=== PATIENT | female | born 1940 | race African-American/Black ===

== ENCOUNTER 2022-03-08 08:33 | Outpatient (CLI) | payer MEDICARE, SELFPAY ==
--- OUTSIDE RECORDS SUMMARY | 2022-03-08 08:39 | XMS_ITS | Encounter Summary ---
:1940 Author Organization [facility] Address [address] [place] [address] Phone Care Team Providers Name Role Phone Unavailable Primary Care Provider Unavailable Encounter Details Date Type Department Care Team Description 05/31/2021 Documentation Only Acute Dialysis Barby Cox [address] [place], [place] [address] [id number] Social History Tobacco Use Types Packs/Day Years Used Date Smoking Tobacco: Never Assessed Sex Assigned at Date Recorded Not on file COVID-19 Exposure Response Date Recorded In the last month, have you been in contact with No / Unsure 05/29/2021 6:33 AM AIR INTELLIGENCE SPECIALIST someone who was confirmed or suspected to have Coronavirus / COVID-19? documented as of this encounter Progress Notes Barby Cox - 05/31/2021 6:42 AM CST Discharge paperwork faxed to chronic dialysis. Adán Cox INTELLIGENCE SPECIALIST documented in this encounter Plan of Treatment Not on filedocumented as of this encounter Visit Diagnoses Not on filedocumented in this encounter
--- OUTSIDE RECORDS SUMMARY | 2022-03-08 08:39 | XMS_ITS | Encounter Summary ---
:1940 Author Organization [facility] Address [address] [place] [address] Care Team Providers Name Role Phone Louis Reyes MD Primary Care Provider Clinic, Not Listed Unavailable Unavailable Reason for Visit Inpatient Admission Specialty Diagnoses / Procedures Referred By Contact Refer red To Contact Diagnoses dx. endstage renal disease Procedures ANASTOMOSIS,AV,ANY SITE ANASTOMOSIS,AV,ANY SITE RIGHT UPPER GRAFT VERSUS SECOND STAGE Referral ID Status Reason Start Date Expiration Date Visits Requ ested Visits Authorized [id number] 1 1 Encounter Details Date Type Department Care Team Description 02/02/2022 Hospital Encounter A7 Sonya Cardenas, ESRD (end stage [address] [facility] renal disease) ([facility]) [address] [facility] [address] [address] [place], [place] [phone] [id number] Social History Tobacco Use Types Packs/Day Years Used Date Smoking Tobacco: Every Day Smokeless Tobacco: Never Alcohol Use Standard Drinks/Week Comments Never 0 (1 standard drink = 0.6 oz pure alcoho l) Sex Assigned at Date Recorded Not on file COVID-19 Exposure Response Date Recorded In the last 10 days, have you been in contact with No / Unsu re 02/02/2022 5:43 AM CDT someone who was confirmed or suspected to have Coronavirus/COVID-19? documented as of this encounter Last Filed Vital Signs Vital Sign Reading Time Taken Comments Blood Pressure 110/75 02/02/2022 7:10 PM CDT Pulse 94 02/02/2022 7:10 PM CDT Temperature 36.8 ??C (98.2 ??F) 02/02/2022 7:10 PM CDT Respiratory Rate 18 02/02/2022 7:10 PM CDT Oxygen Saturation 98% 02/02/2022 7:10 PM CDT Inhaled Oxygen Concentration - - Weight 53.5 kg (118 lb) 02/02/2022 3:38 PM CDT Height 160 cm (5' 3) 02/02/2022 11:10 AM CDT Body Mass Index 20.9 02/02/2022 11:10 AM CDT documented in this encounter Medications at Time of Discharge Medication Sig Dispensed Refills Start Date End Date calcitriol (ROCALTROL) Take 0.25 mcg by 0 0.25 mcg oral capsule mouth Daily. calcium acetate, phosphate TAKE 2 CAPSULES BY 0 0 11/17/2021 binders, (PHOSLO) 667 mg MOUTH THREE TIMES oral capsule DAILY WITH MEALS AND 1 CAPSULE TWO TIMES DAILY WITH SNACKS Cholecalciferol, Vitamin Take 1 tablet by 0 D3, 50 mcg (2,000 unit) mouth. oral capsule epoetin beta, methoxy peg 50 mcg. 0 (MIRCERA) 50 mcg/0.3 mL Injection Syringe furosemide (LASIX) 80 mg Take 80 mg by mouth 0 oral tablet twice a day. lisinopriL (PRINIVIL) 2.5 Take 2.5 mg by mouth 0 12/16/2021 mg oral tablet once daily. metoprolol succinate, XL, 0 12/19/2021 (TOPROL XL) 25 mg oral extended release tablet 24 HR pantoprazole (PROTONIX) 40 TAKE 1 TABLET BY 0 03/2022 mg oral delayed release MOUTH TWICE DAILY FOR tablet 3 TO 4 WEEKS THEN DECREASE TO DAILY IN MORNING. TAKE 30 MINUTES BEFORE FIRST MEAL OF DAY documented as of this encounter Progress Notes Sandra Holguin RN - 02/02/2022 7:45 PM CDT Cindi Garibay 1940 [id number] P: Discharge A: Discharged ambulatory to home at 1944 escorted by nurse I: Discharge information and arrangements included: review of written discharge instructions R:Patient expressed understanding of information.. Kavya David RN - 02/02/2022 6:20 PM CDT Hemodialysis Treatment Note: Patient dialyzed for 3 hours on a Revaclear dialyzer. Ran on a K 2 bath for serum K of 5.9 mEq/L. BFR 350 ml/min via R PCAD. Total net fluid removed: 2.5 L. Total blood volume processed: 53 Liters. Total heparin given:2000 units Heparin instilled in both ports post-run, caps placed, secured, and labeled. Patient had no complications. Dialysis meds given: none. Consent on file. See dialysis flow sheet in [facility] for further details. Patient teaching and the opportunity for questions given. Water detection alarm in use during treatment. Patient dialysis days MWF at [facility]. Kavya Buchanan RN [facility] Lashon Horton RN - 02/02/2022 2:36 PM CDT Patient here for fistulagram today as outpatient, K 5.9 and needing dialysis prior to procedure. Admitted to A7, ate lunch, will go to W5 for dialysis and DC home. Then she will reschedule fistulagram as an outpatient. Lives at home with luz Eller who will come picker tender when done. Tele monitor on, no calls. Lashon Horton RN - 02/02/2022 11:47 AM CDT P. Admission A. Condition on Admit: alert. Patient/Family Concerns: Patient expressed concern about ordering lunch. I. Initial Interventions included: notified MD of patient arrival. Orientation to Unit: Patient oriented to how to call for help, Patient Information booklet, belongings checklist, unit and plan of care. R. Patient expressed understanding of information.. Danish Boland RN - 02/02/2022 9:42 AM CDT Called admitting, pt to go to A7. Called A7, no beds available RN will talk with admitting. Will call back about room/floor. Sonya Cardenas MD - 02/02/2022 9:21 AM CDT Vascular Surgery Note: 81 year old female who was scheduled for right arm fistula vs graft surgery today. Case initially delayed due to registration error, her name had various spellings on different documentation that she provided and this was only noticed today. After that was sorted out, unfortunately her potassium was elevated. She did not dialyze yesterday as her creative arts music therapist recommended. We planned to dialyze her today, however inpatient dialysis does not have availability until 1:30pm, with plan to run for 3-4 hours. I called her dialysis center and they do not have chair availability for her since she normally dialyzes in the morning, so she cannot go there today for HD. Will plan to admit medicine today for dialysis due to hyperkalemia. She will receive dialysis today.If no issues after dialysis then she will be OK to discharge home after dialysis. Will plan to reschedule surgery for another date. Sonya Cardenas MD [facility] documented in this encounter Consult Notes Avril Gomes APRN, JANA - 02/02/2022 3:29 PM CDT Images from the original note were not included. 02/02/2022 February 02, 2022 3:30 PM Impression and Plan: 1) ESRD: Usually dialyze on Saturday via CVC at [facility] ([phone]). Herprimary creative arts music therapist is Dr Landon Calvert MD. No recent dialysis access issue. Came in for a AVF placement which wouldn't be done today as her potassium was elevated at 5.9. Seen today getting ready for dialysis, tells me she is discharging after dialysis with plan to continue dialysis MWF per her normal schedule via her CVC, will make another plan for access placement. -Continue dialysis MWF. Next dialysis is today - Avoid nephrotoxins and renally dose all medications. - Follow weights and I&Os HD Site: [facility] Dialysis Prescription: Dry weight: 49.5 kg Avril Gomes APRN, METALWORKER 3) Blood Pressure/Volume: long standing history of hypertension. Blood pressure hypertensive, will UF with dialysis today. No med changes today, continue to challenge her dry weight with ongoing monitoring. CC: ESRD, here for access placement. HPI: I was asked to consult on this pleasant 81 y.o. female. Ms. Garibay past medical history is significant for ESRD on dialysis MWF. She presented today for AVF placement, unfortunately didn't dialyzeyesterday as recommended by Dr. Calvert, therefore her K was noted to be at 5.9 this morning. Accessplacement not completed, will dialyze inpatient today. Tells me she is discharging after dialysis and will make a new plan for access placement. Upon evaluation today, the patient was in bed resting. Denies chest pain, SOB, cough, edema, abdominal pain, N/V, rashes, change of taste, and increase insomnia. Medical History: Past Medical History: Diagnosis Date ??? CHF (congestive heart failure) (HCC) ??? HTN (hypertension) ??? Iron deficiency anemia ??? Renal disease Surgical History: Past Surgical History: Procedure Laterality Date ??? HX HYSTERECTOMY ??? IR PCAD PLACEMENT Right Medications: Prior to admission: Medications Prior to Admission Medication Sig Dispense Refill Last Dose ??? calcitriol (ROCALTROL) 0.25 mcg oral capsule Take 0.25 mcg by mouth Daily. 02/01/2022 ??? calcium acetate, phosphate binders, (PHOSLO) 667 mg oral capsule TAKE 2 CAPSULES BY MOUTH THREE TIMES DAILY WITH MEALS AND 1 CAPSULE TWO TIMES DAILY WITH SNACKS 02/01/2022 ??? Cholecalciferol, Vitamin D3, 50 mcg (2,000 unit) oral capsule Take 1 tablet by mouth. 02/01/2022 ??? epoetin beta, methoxy peg (MIRCERA) 50 mcg/0.3 mL Injection Syringe 50 mcg. unsure ??? furosemide (LASIX) 80 mg oral tablet Take 80 mg by mouth twice a day. Past Week ??? lisinopriL (PRINIVIL) 2.5 mg oral tablet Take 2.5 mg by mouth once daily. 02/02/2022 ??? metoprolol succinate, XL, (TOPROL XL) 25 mg oral extended release tablet 24 HR 02/02/2022 ??? pantoprazole (PROTONIX) 40 mg oral delayed release tablet TAKE 1 TABLET BY MOUTH TWICE DAILY FOR3 TO 4 WEEKS THEN DECREASE TO DAILY IN MORNING. TAKE 30 MINUTES BEFORE FIRST MEAL OF DAY 02/01/2022 Current: Current Facility-Administered Medications: ??? saline FLUSH syringe 10 mL, 10 mL, Intravenous, Q8H, Sonya Cardenas MD ??? saline FLUSH syringe 10 mL, 10 mL, Intravenous, PRN, Sonya Cardenas MD ??? heparin 1,000 units/mL injection 1,000-3,500 Units, 1-3.5 mL, Intravenous, PRN, Chadwick Lai MD ??? saline with benzyl alcohol injection 0.1-0.3 mL, 0.1-0.3 mL, Intradermal, PRN, Sonya Cardenas MD Allergies: Iron, Carvedilol, and Iron sucrose Social History: Social History Socioeconomic History ??? Marital status: Tobacco Use ??? Smoking status: Current Every Day Smoker ??? Smokeless tobacco: Never Used Vaping Use ??? Vaping Use: Never used Substance and Sexual Activity ??? Alcohol use: Never ??? Drug use: Never Family History: No family history on file. Review of Systems: : ROS: Comprehensive ROS was negative other than as noted in the HPI. Family history reviewed and non-contributory. Physical Exam: BP (!) 177/68 Pulse 66 Temp 97.9 ??F (36.6 ??C) Resp 18 Ht 5' 3 (1.6 m) Wt 53.5 kg (118 lb) SpO2 98% BMI 20.90 kg/m?? In general this is a 81 y.o. female in no acute distress. General: Calm & comfortable Eyes: Pupils equal, sclerae not icteric ENT: Mucus membranes moist, no lesions noted Resp: CTA bilaterally, no distress, normal effort CV: RRR without murmur, no hip/leg edema GI: Soft NT NG Psych: A&Ox3, not depressed Neuro: Moves all extremities. Skin: No rash noted CVC dressing c/d/i Labs and XRays: Reviewed Recent Labs 02/02/22 0710 02/02/22 0818 POTASSIUM 5.9* 5.9* No Lab Results Found (last 72 hours) Recent Labs 02/02/22 0818 INR 1.0 Thank you for allowing me to participate in Ms. Garibay???s care. Avril Goems, PEACE, METALWORKER, RYAN [facility] Office # [phone] documented in this encounter Nursing Notes Danish Boland RN - 02/02/2022 10:58 AM CDT Cindi Garibay 1940 [id number] P. Transfer A. Transferred at 1045 to A7 unit. Transported via wheelchair with chart escorted by assistant activities director. I. Notified son of transfer. Patient information and safety items addressed included how to call forhelp. R. Patient expressed understanding of information. Pt was scheduled for a procedure this morning for graft/fistula-right. K came back at 5.9, dialysis was needed before procedure. Dialysis full until 1300- 1330, pt being admitted to receive dialysis. Procedure cancelled d/t late dialysis run. Will need to reschedule. Report given to RN for 787. Son was updated about dialysis and cancelled procedure. Will pick pt up whenever she is discharged. Danish Boland RN - 02/02/2022 8:13 AM CDT Pt's nameband and medical chart had name spelled wrong. service desk associate working on correcting. Different drivers ID and medicare. Name corrected now. Labs re-drawn. Rafita (son) updated. Pt may have to be in observation unit for dialysis before leaving hospital. documented in this encounter Plan of Treatment Upcoming Encounters Date Type Specialty Care Team Description 03/30/2022 Hospital Encounter Sonya Cardenas MD [address] [place], [place] [address] (Wo rk) 03/30/2022 Surgery Surgery Sonya Cardenas MD RIGHT UPPER GRAFT VERSUS [address] [place], [place] [address] (Wo rk) Scheduled Procedures Name Priority Associated Diagnoses Date/Time CREATION: A-V FISTULA dx. endstage renal disease 03/30/2022 10:15 AM CDT (BRESCIA) documented as of this encounter Procedures Procedure Name Priority Date/Time Associated Comments Diagnosis HEMODIALYSIS Routine 02/02/2022 1:33 PM CDT HEP B SURFACE ANTIGEN Routine 02/02/2022 1:17 PM Results for this CDT procedure are i n the results section. TYPE AND SCREEN STAT 02/02/2022 8:18 AM Result s for this CDT procedure are i n the results section. POTASSIUM STAT 02/02/2022 8:18 AM Results f or this CDT procedure are i n the results section. PROTIME/INR STAT 02/02/2022 8:18 AM Results f or this CDT procedure are i n the results section. PARTIAL THROMBOPLASTIN STAT 02/02/2022 8:18 AM Results for this TIME CDT procedure are i n the results section. ABORH CONFIRM (LAB USE STAT 02/02/2022 8:14 AM Results for this ONLY) CDT procedure are i n the results section. POTASSIUM STAT 02/02/2022 7:10 AM Results f or this CDT procedure are i n the results section. PROTIME/INR STAT 02/02/2022 7:10 AM Results f or this CDT procedure are i n the results section. PARTIAL THROMBOPLASTIN STAT 02/02/2022 7:10 AM Results for this TIME CDT procedure are i n the results section. COVID 19 (EXTERNAL) Routine 01/29/2022 Results for this procedure are i n the results section. documented in this encounter Results Hep B Surface Antigen (02/02/2022 1:17 PM CDT) Analysis Performed At Patho logist Time Signature HEP BS ANTIGEN Non-React Non-React ATELLICA 02/02/2022 [facility] [place] ANALYZER 2:17 PM [facility] LAB[facility] Specimen Anatomical Collection Method Collection Time Receive d Time (Source) Location / / Volume Laterality Blood 02/02/2022 1:17 PM 1:34 CDT PM CDT Chadwick Lai MD IMMUNOLOGY ORDERABLE Performing Organization Address City/Va Hospital/ZIP Code Phon e Number [facility] [address] [place] [address] LABORATORY Protime/INR (02/02/2022 8:18 AM CDT)Only the most recent of2 resultswithin the time period is included. P athologist Signature INR 1.0 0.9 - 1.2 02/02/2022 [facility] 9:[address] [facility] LAB[facility]ORY Specimen Anatomical Collection Method / Collection Time Recei asim Time (Source) Location / Volume Laterality Blood LEFT UPPER ARM Venipuncture / 02/02/2022 8:18 02/03/20 22 8:25 STRUCTURE / Unknown AM CDT AM CDT Unknown Sp Vickers MD COAGULATION ORDERABLE Performing Organization Address City/Va Hospital/ZIP Code Phon e Number [facility] [address] [facility] [place] [address] LABORATORY (ABNORMAL) Partial Thromboplastin Time (02/02/2022 8:18 AM CDT)Only the most recent of2 resultswithin the time period is included. P athologist Signature PTT 40.7 (H) 24.0 - 31.0 02/02/2022 [facility] SEC. 9:[address] [facility] LAB[facility] Specimen Anatomical Collection Method / Collection Time Recei asim Time (Source) Location / Volume Laterality Blood LEFT UPPER ARM Venipuncture / 02/02/2022 8:18 02/03/20 22 8:25 STRUCTURE / Unknown AM CDT AM CDT Unknown Narrative [facility] LABORATORY - 02/02 9:10 AM CDT aPTT Therapeutic Reference Ranges: Argatroban protocol: 60 - 85 seconds Bivalirudin protocol: 43 - 71 seconds Sp Vickers MD COAGULATION ORDERABLE Performing Organization Address City/State/ZIP Code Phon e Number [facility] [address] [place] [address] [phone] LABORATORY (ABNORMAL) Potassium (02/02/2022 8:18 AM CDT)Only the most recent of2 results within the time period is included. P athologist Signature POTASSIUM 5.9 (H) 3.4 - 5.1 ATELLICA 02/02/2022 [facility] mmol/L ANALYZER 8:46 AM CDT HEALTH LABORATORY Specimen Anatomical Collection Method / Collection Time Recei asim Time (Source) Location / Volume Laterality Blood LEFT UPPER ARM Venipuncture / 02/02/2022 8:18 02/03/20 22 8:25 STRUCTURE / Unknown AM CDT AM CDT Unknown Sp Vickers MD CHEMISTRY ORDERABLE Performing Organization Address City/State/ZIP Code Phon e Number [facility] [address] [place] [address] [place] [address] LABORATORY Type & Screen (02/02/2022 8:18 AM CDT) [facility] gist Method Time Signature GROUP AND RH O Positive 02/02/2022 [facility] 9:32 AM CDT HEALTH LABORATORY ANTIBODY Negative 02/02/2022 [facility] SCREEN 9:32 AM CDT HEALTH LABORATORY Specimen Anatomical Collection Method / Collection Time Recei asim Time (Source) Location / Volume Laterality Blood LEFT UPPER ARM Venipuncture / 02/02/2022 8:18 02/03/20 22 8:23 STRUCTURE / Unknown AM CDT AM CDT Unknown Sonya Cardenas MD BLOOD BANK ORDERABLE Performing Organization Address City/State/ZIP Code Phon e Number [facility] [place] [address] [place] [address] [address] [place] [address] LABORATORY ABORh Confirm (Lab Use Only) (02/02/2022 8:14 AM CDT) [facility] gist Method Time Signature GROUP AND RH O Positive 02/02/2022 [facility] 10:06 AM CDT HEALTH LABORATORY Specimen Anatomical Collection Method Collection Time Receive d Time (Source) Location / / Volume Laterality Blood 02/02/2022 8:14 AM 9:50 CDT AM CDT Chadwick Lai MD BLOOD BANK ORDERABLE Performing Organization Address City/State/ZIP Code Phon e Number [facility] [place] [address] [place] [address] [place] [address] [address] [place] [address] LABORATORY COVID 19 (External) (01/29/2022) Analysis Performed At Patho logist Time Signature COVID 19 Not Not (External) Detected. Detected. Specimen (Source) Anatomical Location Collection Method / Collectio n Time Received Time / Laterality Volume 01/29/2022 Unknown IMMUNOLOGY ORDERABLE documented in this encounter Visit Diagnoses Diagnosis ESRD (end stage renal disease) (HCC) - P [facility] End stage renal disease documented in this encounter Admitting Diagnoses Diagnosis ESRD (end stage renal disease) (HCC) End stage renal disease documented in this encounter Administered Medications Inactive Administered Medications - up to 3 most recent administrations Medication Order MAR Action Action Date Dose Rate Site heparin 1,000 units/mL injection 1,000-3 ,500 Units 1,000-3,500 Units (1-3.5 mL), Intravenous, NEEDED, Starting on Sat02/02/22 at 1332, Until 02/03/22 at 0148, for access catheter carlos men maintenance documented in this encounter Active and Recently Administered Medications Times are shown in CDT. Scheduled Medication Order 01/31/2022 02/01/2022 02/02/2022 saline FLUSH syringe 10 mL 140 0 (Canceled Entry - Provider: Lashon Horton, WIN) 10 mL, Intravenous, EVERY 8 HOURS, First dose on Sat02/02/22 at 1400, Until Discontinued PRN Medication Order 01/31/2022 02/01/2022 02/02/2022 saline FLUSH syringe 10 mL 10 mL, Intravenous, NEEDED, Starting on Sat02/02/22 at 0919, Until 02/03/22 at 0148, Line Care heparin 1,000 units/mL injection 1,000-3,500 Units 1,000-3,500 Units (1-3.5 mL), Intravenou s, NEEDED, Starting on Sat02/02/22 at 1332, Until 02/03/22 at 0148, for access catheter lumen maintenance saline with benzyl alcohol injection 0.1-0.3 mL 0.1-0.3 mL, Intradermal, NEEDED, Star ting on Sat02/02/22 at 0919, Until 02/03/22 at 0148, IV start or restart documented in this encounter Care Teams Mine Boss Relationship Specialty Start Date End Date Louis Reyes MD PCP - General 01/30/221999 [place] [address] Clinic, Not Listed PCP - Primary Care Clinic 01/30/22 documented as of this encounter
--- OUTSIDE RECORDS SUMMARY | 2022-03-08 08:39 | XMS_ITS | Clinical Summary ---
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 Social History Tobacco Use Types Packs/Day Years Used Date Never Assessed Sex Assigned at Date Recorded Not on file Plan of Treatment Health Maintenance Due Date Last Done Comments COVID-19 vaccine series (#1) 06/28/1941 Pneumococcal series for age 65+ (1 - PCV) 1948 Tdap 1953 Depression screening for age 12+ 1954 BMI (ht and wt on same day) for age 18+ 1960 Hepatitis C screening for age 18-79 1960 Zoster (shingles) series for age 50+ (1 of 2) 1961 Tetanus booster 1962 DEXA/DXA scan for age 65+ 12/28/2007 Medicare Wellness for age 65+ 12/28/2007 Influenza for age 65+ 03/01/2022 Results Not on filefrom Last 3 Months Insurance Payer Benefit Plan / Subscriber ID Effective Dates Phone Addre ss Type Group [facility] MR [id number] 2021-Kay[place] [id number] [place] [address] (Home) [place] [id number] Care Teams Nitric Acid Plant Operator Relationship Specialty Start Date End Date Louis Reyes MD PCP - General Family Practice 05/18/211999 [place] [id number]
--- OUTSIDE RECORDS SUMMARY | 2022-03-08 08:39 | XMS_ITS | Encounter Summary ---
:1940 Author Organization [facility] Address [address] [place] [address]. [place] [address] Phone Care Team Providers Name Role Phone Unavailable Primary Care Provider Unavailable Encounter Details Date Type Department Care Team Description 05/29/2021 Orders Only [facility] [place], Outside Referral of patient [facility] OUTSIDE PROVIDER (Primary Dx) Medical [place], [place] Radiology Department [address] [facility] 701 [facility]. [address] [address] Social History Tobacco Use Types Packs/Day Years Used Date Smoking Tobacco: Never Assessed Sex Assigned at Date Recorded Not on file COVID-19 Exposure Response Date Recorded In the last month, have you been in contact with No / Unsure 05/29/2021 6:33 AM RETURNED ITEM CLERK someone who was confirmed or suspected to have Coronavirus / COVID-19? documented as of this encounter Plan of Treatment Not on filedocumented as of this encounter Results XR CHEST OUTSIDE FILMS (05/29/2021 4:53 AM RETURNED ITEM CLERK) Specimen (Source) Anatomical Location Collection Method / Collectio n Time Received Time / Laterality Volume Narrative Edwin PondGbva-Lceglf-Zzhksavmk - 1 6:27 AM RETURNED ITEM CLERK Outside Film Only Outside Provider OUTSIDE FILMS XR CHEST OUTSIDE FILMS (04/17/2021 8:20 AM CDT) Specimen (Source) Anatomical Location Collection Method / Collectio n Time Received Time / Laterality Volume Narrative Fausto PondWfos-Boogtr-Imqmsnhvz - 1 6:27 AM RETURNED ITEM CLERK Outside Film Only Outside Provider OUTSIDE FILMS documented in this encounter Visit Diagnoses Diagnosis Referral of patient - Primary Referral of patient without examination or treatment documented in this encounter
--- OUTSIDE RECORDS SUMMARY | 2022-03-08 08:39 | XMS_ITS | Clinical Summary ---
:1940 Author Organization [facility] Address [address] [place] [id number] Phone Care Team Providers Name Role Phone Unavailable Primary Care Provider Unavailable Source Comments [employer] is fully rolled out on [employer]. Last update 12/03/08.[facility] Allergies Active Allergy Reactions Severity Noted Date Comments Iron Itching/Pruritus 05/29/2021 Medications Be aware that medications may not be up to date as of this document. Always verify current medications with patient. Medication Sig Dispensed Refills Start Date End Date Status calcium acetate Take 667 mg by 0 Active (PHOSLO) 667 mg oral mouth 3 times daily capsule with meals. furosemide (LASIX) 80 Take 80 mg by mouth 0 Active mg oral TABS daily. lisinopril Take 2.5 mg by 0 Acti ve (PRINIVIL;ZESTRIL) mouth daily. 2.5 mg oral TABS metoprolol (TOPROL Take 12.5 mg by 0 Active XL) 25 mg oral XL mouth daily. tablet nephrocaps (TRIPHRO) Take 1 capsule by 0 Active 1 MG oral capsule mouth daily in the afternoon. Multiple Take 1 tablet by 0 Act deedee Vitamins-Minerals mouth daily. (RENAPLEX-D) oral TABS calcitRIOL Take 0.75 mcg by 0 Ac tive (ROCALTROL) 0.25 mcg mouth with oral capsule dialysis. Methoxy PEG-Epoetin 50 mcg by IV Push 0 Active Beta (MIRCERA) 50 route every 4 MCG/0.3ML Injection weeks. 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 TEACHER Pulse 87 05/29/2021 11:13 PM CELLO TEACHER Temperature 36.9 ??C (98.5 ??F) 05/30/2021 7:37 AM CELLO TEACHER Respiratory Rate 20 05/30/2021 7:37 AM CELLO TEACHER Oxygen Saturation 95% 05/30/2021 7:37 AM CELLO TEACHER Inhaled Oxygen Concentration - - Weight 43 kg (94 lb 12.8 oz) 05/29/2021 6:00 PM CELLO TEACHER Height 160 cm (5' 3) 05/29/2021 6:00 PM CELLO TEACHER Body Mass Index 16.79 05/29/2021 6:00 PM CELLO TEACHER Plan of Treatment Health Maintenance Due Date Last Done Comments Dental Oral Exam 1940 Dental Prophylaxis 1940 Dental X-Ray: Bitewings 1942 COVID-19 Vaccine (#1) 06/28/1943 Periodontal Maintenance 1956 Medicare Annual Wellness 1960 PREVENTATIVE VISIT 1960 TD/TDAP ADULTS 1960 HEALTH MAINTENANCE PROTOCOL 1961 Osteoporosis Screening (Dexa Scan) 12/28/2007 PNEUMOCOCCAL IMMUNIZATION > 65 YRS 12/28/2007 INFLUENZA VACCINE 03/01/2022 HIB Aged Out No longer eligib le based on patient's age to complete this topic Insurance Payer Benefit Plan Subscriber ID Effective Phone Address Typ e / Group Dates [facility] [id number] 2020-Prese [address] [facility] (MEDICARE nt [id number] Managed Care ADVANTAGE) [place] [address] Advance Directives For more information, please contact: [phone] Latest Code Status on FileFull Code Date Activated Date Inactivated Comments 05/29/2021 6:03 PM 05/30/2021 4:17 PM Question Answer Comments Does the Patient have preferences regarding life sustaining No measures (these options only apply when the patient has a pulse): Discussed Code Status With Whom? Not discussed
--- OUTSIDE RECORDS SUMMARY | 2022-03-08 08:39 | XMS_ITS | Encounter Summary ---
:1940 Author Organization [facility] Address [address] [place] [address] Care Team Providers Name Role Phone Louis Reyes MD Primary Care Provider Clinic, Not Listed Unavailable Unavailable Encounter Details Date Type Department Care Team Description 02/02/2022 Travel Social History Tobacco Use Types Packs/Day Years [...] have Coronavirus/COVID-19? documented as of this encounter Plan of Treatment Upcoming Encounters Date Type Specialty Care Team Description 03/30/2022 Hospital Encounter Sonya Cardenas MD [address] [place], [place] [address] (Wo rk) 03/30/2022 Surgery Surgery Sonya Cardenas MD RIGHT UPPER GRAFT VERSUS [address] 22 [place], [place] [address] (Wo rk) Scheduled Procedures Name Priority Associated Diagnoses Date/Time CREATION: A-V FISTULA dx. 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
--- OUTSIDE RECORDS SUMMARY | 2022-03-08 08:39 | XMS_ITS | Clinical Summary ---
:1940 Author Organization [facility] Address [address] [place] [address] Care Team Providers Name Role Phone Louis Reyes MD Primary Care Provider Clinic, Not Listed Unavailable Unavailable Allergies Active Allergy Reactions Severity Noted Date Comments Carvedilol Other 12/28/2019 Other reaction( s): Other (see comments) Iron Hives, Itching High 05/23/2021 Iron Sucrose Rash Low 09/19/2021 Medications Medication Sig Dispensed Refills Start Date End Date Status calcium acetate, TAKE 2 CAPSULES BY 0 11/17/2021 Active phosphate binders, MOUTH THREE TIMES (PHOSLO) 667 mg oral DAILY WITH MEALS capsule AND 1 CAPSULE TWO TIMES DAILY WITH SNACKS lisinopriL (PRINIVIL) Take 2.5 mg by 0 12/16/2021 Active 2.5 mg oral tablet mouth once daily. metoprolol succinate, 0 12/19/2021 Active XL, (TOPROL XL) 25 mg oral extended release tablet 24 HR pantoprazole TAKE 1 TABLET BY 0 12/08/2021 Active (PROTONIX) 40 mg oral MOUTH TWICE DAILY delayed release tablet FOR 3 TO 4 WEEKS THEN DECREASE TO DAILY IN MORNING. TAKE 30 MINUTES BEFORE FIRST MEAL OF DAY calcitriol (ROCALTROL) Take 0.25 mcg by 0 Active 0.25 mcg oral capsule mouth Daily. Cholecalciferol, Take 1 tablet by 0 Active Vitamin D3, 50 mcg mouth. (2,000 unit) oral capsule furosemide (LASIX) 80 Take 80 mg by 0 09/01/2020 Active mg oral tablet mouth twice a day. epoetin beta, methoxy 50 mcg. 0 Active peg (MIRCERA) 50 mcg/0.3 mL Injection Syringe Active Problems Problem Noted Date ESRD (end stage renal disease) 02/02/2022 Encounters Date Type Specialty Care Team Description 02/02/2022 Hospital Encounter Sonya Cardenas MD ESR D (end stage renal disease) ([facility]) 02/02/2022 Travel 01/30/2022 Travel from Last 3 Months Social History Tobacco Use Types Packs/Day Years [...] Mass Index 20.9 02/02/2022 11:10 AM CDT Plan of Treatment Upcoming Encounters Date Type Specialty Care Team Description 03/30/2022 Hospital Encounter Sonya Cardenas MD [address] [place], [place] [address] (Wo rk) 03/30/2022 Surgery Surgery Sonya Cardenas MD RIGHT UPPER GRAFT VERSUS [address] [place], [place] [address] (Wo rk) Scheduled Procedures Name Priority Associated Diagnoses Date/Time CREATION: A-V FISTULA dx. endstage renal disease 03/30/2022 10:15 AM CDT (BRESCIA) Health Maintenance Due Date Last Done Comments Colonoscopy 1940 Dexa Scan 1940 Hepatitis C Screening 1942 Lipid Screening 1942 COVID-19 Vaccine (#1) 06/28/1943 Pneumococcal 65+ (1 - PCV) 1948 Adult Tetanus Booster 1961 Zoster Vaccine (1 of 2) 1961 Influenza Vaccine (#1) 2022 Yearly Review of HCD 01/10/2023 01/10/2022 Procedures Procedure Name Priority Date/Time Associated Comments Diagnosis HEMODIALYSIS Routine 02/02/2022 1:33 PM CDT HEP B SURFACE ANTIGEN Routine 02/02/2022 1:17 PM Results for this CDT procedure are i n the results section. INTRAOP NOTE Routine 02/02/2022 9:36 AM Results f or this CDT procedure [...] procedure are i n the results section. from Last 3 Months Results Hep B Surface Antigen (02/02/2022 1:17 PM CDT) Analysis Performed At Patho logist Time Signature HEP BS ANTIGEN Non-React Non-React ATELLICA 02/02/2022 [facility] [place] ANALYZER 2:17 PM CDT HEALTH LABORATORY Specimen Anatomical Collection Method Collection Time Receive d Time (Source) Location / / Volume Laterality Blood 02/02/2022 1:17 PM 08/05/202 2 1:34 CDT PM CDT Chadwick Lai MD IMMUNOLOGY ORDERABLE Performing Organization Address City/[facility]/[place]IP [facility] [place] [facility] [address] [place] [address] LABORATORY IntraOp Note (02/02/2022 9:36 AM CDT) Narrative Sp Vickers MD - 02/02/2022 9:36 A M CDT Sp Vickers MD ? 02/02/2022 ??9:37 AM IntraOp Note Pt with K+ 5.9 x2 in preop. ??Dialysis p t with last run Saturday. ??Will cancel now, pt to be dialyzed this after noon and reschedule procedure. ?? Sp Vickers MD AN BLOCKS Type & Screen (02/02/2022 8:18 AM CDT) Patholo gist Method Time Signature GROUP AND RH O Positive 02/02/2022 [facility] 9:32 AM CDT HEALTH LABORATORY ANTIBODY Negative 02/02/2022 [facility] SCREEN 9:32 AM CDT HEALTH LABORATORY Specimen Anatomical Collection Method / Collection Time Recei asim Time (Source) Location / Volume Laterality Blood LEFT UPPER ARM Venipuncture / 02/02/2022 8:18 02/03/20 22 8:23 STRUCTURE / Unknown AM CDT AM CDT Unknown Sonya Cardenas MD BLOOD BANK ORDERABLE Performing Organization Address City/[facility] [place] [address] [place] [address] [place] [address] LABORATORY (ABNORMAL) Potassium (02/02/2022 8:18 AM CDT)Only the most recent of2 results within the time period is included. P athologist Signature POTASSIUM 5.9 (H) 3.4 - 5.1 ATELLICA 02/02/2022 [facility] mmol/L ANALYZER 8:46 AM CDT HEALTH LABORATORY Specimen Anatomical Collection Method / Collection Time Recei asim Time (Source) Location / Volume Laterality Blood LEFT UPPER ARM Venipuncture / 02/02/2022 8:18 02/03/20 22 8:25 STRUCTURE / Unknown AM CDT AM CDT Unknown Sp Vickers MD CHEMISTRY ORDERABLE Performing Organization Address City/[facility]/ZIP Code Phon e Number [facility] [address] [place] [address] LABORATORY Protime/INR (02/02/2022 8:18 AM CDT)Only the most recent of2 resultswithin the time period is included. P athologist Signature INR 1.0 0.9 - 1.2 02/02/2022 [facility] 9:10 AM CDT [facility] LABORATORY Specimen Anatomical Collection Method / Collection Time Recei asim Time (Source) Location / Volume Laterality Blood LEFT UPPER ARM Venipuncture / 02/02/2022 8:18 02/03/20 22 8:25 STRUCTURE / Unknown AM CDT AM CDT Unknown Sp Vickers MD COAGULATION ORDERABLE Performing Organization Address City/[facility]/ZIP Code Phon e Number [place] [address] [place] [address] LABORATORY (ABNORMAL) Partial Thromboplastin Time (02/02/2022 8:18 AM CDT)Only the most recent of2 resultswithin the time period is included. P athologist Signature PTT 40.7 (H) 24.0 - 31.0 02/02/2022 [facility] SEC. 9:10 AM [facility] LABORATORY Specimen Anatomical Collection Method / Collection Time Recei asim Time (Source) Location / Volume Laterality Blood LEFT UPPER ARM Venipuncture / 02/02/2022 8:18 02/03/20 22 8:25 STRUCTURE / Unknown AM CDT AM CDT Unknown Narrative [facility] LABORATORY - 02/02 9:10 AM CDT aPTT Therapeutic Reference Ranges: Argatroban protocol: 60 - 85 seconds Bivalirudin protocol: 43 - 71 seconds Sp Vickers MD COAGULATION ORDERABLE Performing Organization Address City/[facility]/ZIP Code Phon e Number [facility] [place] [address] LABORATORY ABORh Confirm (Lab Use Only) (02/02/2022 8:14 AM CDT) Patholo gist Method Time Signature GROUP AND RH O Positive 02/02/2022 [facility] 10:06 AM CDT HEALTH LABORATORY Specimen Anatomical Collection Method Collection Time Receive d Time (Source) Location / / Volume Laterality Blood 02/02/2022 8:14 AM 9:50 CDT AM CDT Chadwick Lai MD BLOOD BANK ORDERABLE Performing Organization Address City/State/ZIP Code [place] [address] [place] [address] LABORATORY COVID 19 (External) (01/29/2022) Analysis Performed At Patho logist Time Signature COVID 19 Not Not (External) Detected. Detected. Specimen (Source) Anatomical Location Collection Method / Collectio n Time Received Time / Laterality Volume 01/29/2022 Unknown IMMUNOLOGY ORDERABLE from Last 3 Months Insurance Payer Benefit Plan Subscriber ID Effective Phone Address Typ e / Group Dates [facility] MEDICARE [id number] 2021-Pres [address] [facility] HEALTHCARE ent [id number] [place] [address] (Home) [place]ARC[place]INO [id number] Advance Directives For more information, please contact: [phone] Latest Code Status on File Code Status Date Activated Date Inactivated Comments Full Code 02/02/2022 9:21 AM 02/03/2022 1:53 AM How was code status determined? Patient Care Teams Administrative Program Specialist Relationship Specialty Start Date End Date Louis Reyes MD PCP - General 01/30/221999 [place] [address] Clinic, Not Listed PCP - Primary Care Clinic 01/30/22
--- OUTSIDE RECORDS SUMMARY | 2022-03-08 08:39 | XMS_ITS | Encounter Summary ---
:1940 Author Organization [facility] Address [address] [place] [address] Care Team Providers Name Role Phone Louis Reyes MD Primary Care Provider Clinic, Not Listed Unavailable Unavailable Encounter Details Date Type Department Care Team Description 01/30/2022 Travel Social History Tobacco Use Types Packs/Day Years Used Date Smoking Tobacco: Every Day Smokeless Tobacco: Never Alcohol Use Standard Drinks/Week Comments Never 0 (1 standard drink = 0.6 oz pure alcoho l) Sex Assigned at Date Recorded Not on file COVID-19 Exposure Response Date Recorded In the last 10 days, have you been in contact with No / Unsu re 01/30/2022 5:59 PM CDT someone who was confirmed or suspected to have Coronavirus/COVID-19? documented as of this encounter Plan of Treatment Upcoming Encounters Date Type Specialty Care Team Description 03/30/2022 Hospital Encounter Sonya Cardenas MD [address] [place], [place] [address] (Wo rk) 03/30/2022 Surgery Surgery Sonya Cardenas MD RIGHT UPPER GRAFT VERSUS [address] [place], [place] [address] (Wo rk) Scheduled Procedures Name Priority Associated Diagnoses Date/Time CREATION: A-V FISTULA dx. endstage renal disease 03/30/2022 10:15 AM CDT (BRESCIA) documented as of this encounter Visit Diagnoses Not on filedocumented in this encounter Care Teams Clam Grower Relationship Specialty Start Date End Date Louis Reyes MD PCP - General 01/30/221999 [place] [address] Clinic, Not Listed PCP - Primary Care Clinic 01/30/22 documented as of this encounter
--- OUTSIDE RECORDS SUMMARY | 2022-03-08 08:39 | XMS_ITS | Encounter Summary ---
:1940 Author Organization [facility] Address [address] [place] [address] Phone Care Team Providers Name Role Phone Unavailable Primary Care Provider Unavailable Reason for Visit Reason Comments Shortness of Breath Auth/Cert Specialty Diagnoses / Procedures Referred By Contact Refer red To Contact CARDIOLOGY Diagnoses SOB (shortness of breath) Yomi Milligan Care 2 Card Renal Inpt MD Candace [address] [facility] [address] [place], [place] [address] [id number] [place], [place] [address] [address] [place] [address] Fax: Referral ID Status Reason Start Date Expiration Date Visits Requ ested Visits Authorized [id number] 1 1 Encounter Details Date Type Department Care Team Description 05/29/2021 - Hospital Encounter [facility] & Binu Young MD [address] [facility] [address] [place], [place] [id number] SOB (shortness of 05/30/2021 Renal 2 Yomi Milligan MD [address] [place] [address] [place], [place] [id number] breath) 701 Jp Velasco MD [address] [id number] [place] [address] Social History Tobacco Use Types Packs/Day Years Used Date Smoking Tobacco: Never Assessed Sex Assigned at Date Recorded Not on file COVID-19 Exposure Response Date Recorded In the last month, have you been in contact with No / Unsure 05/29/2021 6:33 AM ORTHOPAEDIC TECHNOLOGIST someone who was confirmed or suspected to have Coronavirus / COVID-19? documented as of this encounter Last Filed Vital Signs Vital Sign Reading Time Taken Comments Blood Pressure 123/66 05/30/2021 7:37 AM ORTHOPAEDIC TECHNOLOGIST Pulse 87 05/29/2021 11:13 PM ORTHOPAEDIC TECHNOLOGIST Temperature 36.9 ??C (98.5 ??F) 05/30/2021 7:37 AM ORTHOPAEDIC TECHNOLOGIST Respiratory Rate 20 05/30/2021 7:37 AM ORTHOPAEDIC TECHNOLOGIST Oxygen Saturation 95% 05/30/2021 7:37 AM ORTHOPAEDIC TECHNOLOGIST Inhaled Oxygen Concentration - - Weight 43 kg (94 lb 12.8 oz) 05/29/2021 6:00 PM ORTHOPAEDIC TECHNOLOGIST Height 160 cm (5' 3) 05/29/2021 6:00 PM ORTHOPAEDIC TECHNOLOGIST Body Mass Index 16.79 05/29/2021 6:00 PM ORTHOPAEDIC TECHNOLOGIST documented in this encounter Discharge Summaries Jp Crowder MD - 05/30/2021 7:18 AM CST MEDICINE DISCHARGE SUMMARY Jaz Garibay : 1940 Sex: female Date of Admission: 05/29/2021 Date of Discharge: 05/30/2021 Disposition: Home/Self Care Primary Care Physician: No primary care provider on file. REASON FOR ADMISSION: Shortness of breath Hypoxia Concern for pneumonia vs pulmonary edema BRIEF SUMMARY OF HOSPITALIZATION: 80 y.o. female with history significant for ESRD on HD (M/W/F), CHF, presented to [facility] [place] for evaluation of shortness of breath, hypoxia. The patient was noted to be initially hypoxic to 80% on RA at OSH, where she was placed on O2 via facemask with improvement. She was noted to be hypertensive to 160s systolic. She was given duo nebs x2, calcium gluconate and BiPAP, started on nitro drip to [facility] STAB room. Chest x-ray concerning for right middle/lower lobe pneumonia versus pulmonary edema, patient was started on Ceftriaxone and Azithromycin. Eventually able to be weaned off of nitro drip, started on SHRIMP BOAT CAPTAIN blood pressure medications. She was dialyzed in the evening on 05/29 with complete resolution of her symptoms. At time of discharge she was asymptomatic, breathing comfortably with O2 sats in the upper to mid 90s. It was determined that her presentation was more likelyto be due to pulmonary edema rather than pneumonia, and so she was not prescribed antibiotic regimenon discharge. HOSPITAL COURSE BY PROBLEM: Shortness of Breath Hypoxia Concern for R middle/lower lobe PNA vs pulmonary edema on CXR 05/29 Patient initially presented to [place] emergency department for shortness of breath that started yesterday morning. Initially placed on oxygen via facemask. Found to be hypertensive to 160 systolic,initial pulse on nitro drip was able to be weaned off the emergency department prior to admission. Her chest x-ray was initially concerning for right middle/lower lobe pneumonia versus pulmonary edema,she is given dose of ceftriaxone and azithromycin. Her symptoms are dramatically improved after 2.5 kg fluid taken off with dialysis on 05/29, since that time patient has remained asymptomatic without oxygen requirement. Patient denies ever having any infection symptoms including no fevers, chills, cough, N/V/D. No leukocytosis noted on labs. Although her initial chest x-ray was initially concerning for possible pneumonia, clinical presentation more consistent with pulmonary edema given symptoms resolved after fluid taken off with dialysis, would not expect to have this degree of improvement after r eceiving only one dose of abx. Pulmonary edema likely related to salty food intake at [facility] last week. - No further antibiotic regimen indicated at this time. - Recommended abstaining from salty food intake. Plan to continue SHRIMP BOAT CAPTAIN blood pressure medications - Per Epic, pt s/p Prevnar 13 on 03/28/21, unclear if she received PPSV23 previously. Discussed with patient, who does not recall Prevnar 13 vaccination or any subsequent vaccinations. Recommended PPSV23 8+ weeks after Uhqacro27 (likely some time in May) and 5 years later, however patient states she is not interested in any further vaccinations. Recommended follow up with her PCP for further discussion regarding PPSV23 vaccination. ESRD on HD Hyperkalemia, resolved Patient typically dialyzes MWF at [facility] via R IJ Permcath. EDW 45kg. Followed by lead database administrator Dr. Calvert of [facility]. Last dialyzed here on 05/29 and had 2.5kg taken off at that time, newEDW approximately 43kg. Patient noted to be hyperkalemic in the ED to 5.7, for which she was given 3g calcium gluconate and Lokelma 10mg while in the ED. Repeat K 4.3 on today's AM labs. - Continue M/W/F dialysis schedule - Continue SHRIMP BOAT CAPTAIN phoslo, nephrocaps, calcitriol Congestive Heart Failure HTN Patient with documented prior history of CHF, although no records available in our system. Initial BP reportedly elevated in 160s systolic. Started on nitro drip, which has since been weaned off. Patient had BS cardiac US performed in the STAB room, demonstrating reduced EF, no RV dilation, bilateral B lines consistent with pulmonary edema. Patient had fluid taken off with dialysis yesterday with subsequent improvement in respiratory status. - Continue SHRIMP [employer]AT CAPTAIN Lasix, Lisinopril, Metoprolol Elevated Troponin Patient with initial elevated troponin to 444 on arrival, since downtrending -> 363 -> 353. Likely demand ischemia in setting of acute hypoxia. No further troponins indicated. Anemia of CKD Patient with chronic anemia of CKD, Hgb has remained stable ~9. No evidence of active bleeding. - Continue SHRIMP BOAT CAPTAIN epo PERTINENT STUDIES & CONSULTS: Chest XR 05/29: IMPRESSION: Mixed interstitial and patchy airspace opacities in the right mid and lower lung field concerning for infection versus pulmonary edema. PENDING TESTS RESULTS: None RECOMMENDATIONS AND FOLLOWUP: Follow up with primary care physician as needed. No future appointments. PHYSICAL EXAMINATION: BP 123/66 (Cuff Location: Left Arm) Pulse 87 Temp 36.9 ??C (98.5 ??F) (Oral) Resp 20 Ht 1.6 m (5' 3) Wt 43 kg (94 lb 12.8 oz) SpO2 95% BMI 16.79 kg/m?? Estimated body mass index is 16.79 kg/m?? as calculated from the following: Height as of this encounter: 1.6 m (5' 3). Weight as of this encounter: 43 kg (94 lb 12.8 oz). Physical Exam General: Awake, Alert, Appropriate. Sitting comfortably in NAD. Head: NC/AT Eyes: No conjunctival injection, Lids normal ENT: No oropharyngeal/tonsillar exudate or erythema. Neck: Supple.Trachea midline. No LAD Cardio: RRR. Appears well-perfused. No lower extremity edema. Pulm: Breathing comfortably on RA. No increased WOB or accessory muscle use noted. Speaking in complete sentences. Equal rise and fall of the chest. Lungs clear to auscultation bilaterally. GI: Soft, NT/ND. No rebound tenderness or guarding. MSK: Freely moving all extremities. Neuro: No grossly focal sensory or motor deficits noted. Normal speech. Skin: No rashes, lesions or bruising. Skin warm/dry Psych: Affect and behavior appropriate. Access: R IJ Permcath appears C/D/I. RUE AVF with palpable thrill. ALLERGIES Allergies Allergen Reactions ??? Iron Itching/Pruritus PLANNED DISCHARGE ORDERS: Medication List CONTINUE taking these medications calcitRIOL 0.25 mcg Capsule Commonly known as: ROCALTROL calcium acetate 667 mg Capsule Commonly known as: PHOSLO furosemide 80 mg Tabs Commonly known as: LASIX lisinopril 2.5 mg Tabs Commonly known as: PRINIVIL;ZESTRIL metoprolol 25 mg XL tablet Commonly known as: TOPROL XL Mircera 50 MCG/0.3ML Sosy Generic drug: Methoxy PEG-Epoetin Beta nephrocaps 1 MG Capsule RenaPlex-D Tabs Discharge Procedure Orders Why you were at the hospital: Order Comments: You were in the hospital for your difficulty breathing. Your chest x-ray was concerning for either an infection or fluid on your lungs, so you were given antibiotics and had fluid takenoff during dialysis. We think it is more likely that you just had fluid on your lungs rather than a lung infection, and so you should not need any further antibiotics after you leave the hospital. When should I be concerned? Order Comments: Go to the Emergency Department or call 911 IF: -- you are having more trouble breathing -- you have worsening unsteadiness on feet, chest pain, shortness of breath, dizziness, or severe headache -- you have pain that is not controlled by medicine, rest, elevation, or ice -- you have redness, swelling, or severe pain in one or both of your legs -- you feel you are getting worse or having an increase in problems Please contact your primary care provider as needed. Order Comments: Please contact your primary care provider as needed. Up as tolerated activity level. Order Comments: UP TOLERATED -- Rest is an important part of healing. Save your energy by spreading out activities that make you tired. Rest as needed. -- Slowly increase your level of activity. Renal diet Order Comments: -- Avoid bananas, oranges, tomatoes, melons and potatoes. -- Limit all dairy foods to ?? cup or 4 ounces each day. -- Include a protein source with each meal. Best sources are: beef, pork, fish, chicken, turkey or eggs. -- Do not add salt to your food. Try herb and spice blends such as Mrs. Monsivais??. Limit foods canned and processed with salt. Choose fresh or frozen foods when you can. Take your medicine and plan ahead for refills Order Comments: - It is important that you take the medicines on your list. Work with your health care provider or pharmacist if you have questions about your medicine. - Plan ahead and use the Refill Line so that you don't run out of your medicine. It may take time toreview your chart and get the medicine ordered. Discussed diagnosis and treatment plan with the patient. Patient verbalized understanding of condition and treatment plan. Planned readmission in the next 30 days: No Salena Muir MD 05/30/2021 11:24 FACULTY NOTE I saw and evaluated the patient on 05/30/2021. I discussed with Dr. Muir and agree with the resident's findings and plan documented in the note above. Any revisions by me are documented in italics. Agree with plan for discharge on 05/30/2021. I have personally spent less than 30 minutes in discharge coordination for this patient. Jp Crowder MD, 05/30/2021 8:17 PM Staff Physician Division of Nephrology OPAEDIC TECHNOLOGIST documented in this encounter Medications at Time of Discharge Medication Sig Dispensed Refills Start Date End Date calcium acetate (PHOSLO) Take 667 mg by mouth 3 0 667 mg oral capsule times daily with meals. furosemide (LASIX) 80 mg Take 80 mg by mouth 0 oral TABS daily. lisinopril Take 2.5 mg by mouth 0 (PRINIVIL;ZESTRIL) 2.5 mg daily. oral TABS metoprolol (TOPROL XL) 25 Take 12.5 mg by mouth 0 mg oral XL tablet daily. nephrocaps (TRIPHRO) 1 MG Take 1 capsule by 0 oral capsule mouth daily in the afternoon. Multiple Take 1 tablet by mouth 0 Vitamins-Minerals daily. (RENAPLEX-D) oral TABS calcitRIOL (ROCALTROL) Take 0.75 mcg by mouth 0 0.25 mcg oral capsule with dialysis. Methoxy PEG-Epoetin Beta 50 mcg by IV Push 0 (MIRCERA) 50 MCG/0.3ML route every 4 weeks. Injection SOSY To be given at dialysis documented as of this encounter Progress Notes Chris Ball RN - 05/30/2021 11:23 AM CST DISCHARGE NOTE D: Patient is being discharged. A: (As documented in the Discharge Planning Flowsheet) Discharge Instructions (AVS): AVS given Discharge clothing/valuables: has adequate clothing Discharge medications: patient will fill own prescriptions here Home equipment status: no equipment needed Home equipment/supplies recommended: none Final discharge destination: Home or self care R: The patient understood the AVS. P: Support patient if they call back with questions. Chris Ball RN, 05/30/2021 11:23 AM OPAEDIC TECHNOLOGIST Sierra Calabrese RN - 05/29/2021 4:39 PM CST [facility] - [facility] Note Jaz Garibay 80 y.o. female ran for 3.5 hours on a K+ bath of K2. 1. Consent obtained: Yes 2. Pods checked with each set of VS: Yes 3. Water alarm checked pre run and in use: Yes 4. Total off 2.5 kg 5. Post HD weight: 42.9 kg 6. Total volume processed: 74.1 L 7. Access Details: Dual lumen, Right CVC 8. Signs/Symptoms of infection: No 9. Heparin: None 10. Meds given : None 11. Patient education given re: procedural 12. Patient education given to: Patient 13. Pt verbalized understanding: Yes 14. Pt needs follow up: No 15. Procedure was tolerated well without complications. Sierra Calabrese RN, 05/29/2021 4:39 PM OPAEDIC TECHNOLOGIST documented in this encounter H&P Notes Jp Crowder MD - 05/29/2021 10:48 AM CST MEDICINE HISTORY AND PHYSICAL Jaz Garibay : 1940 Sex: female Patient Summary: Jaz Garibay is a 80 y.o. female with history significant for ESRD on HD (M/W/F), CHF, presents as transfer from [place] for evaluation of shortness of breath, hypoxia. Initially hypoxic to 80% on RA, improved with O2 via facemask. CXR concerning for R middle/lower lobe pneumonia vs pulmonary edema, started on Ceftriaxone and Azithromycin. Systolic BP initially elevated in 160s, placed on nitro drip, has since been weaned off. Dialyzed 05/29 with significant improvement in respiratory status, since weaned to RA. Assessment and Plan: Shortness of Breath Hypoxia Concern for R middle/lower lobe PNA on CXR 05/29 vs pulmonary edema Patient initially presenting to [place] ER for SOB since earlier this AM, found to have O2 sats in the 80s on RA. Placed on NRB at OSH, then transported on 10L O2 via facemask with improvement. Given duonebs x 2, calcium gluconate, sodium bicarb, and started on Nitro drip for initial systolic bloodpressures in 160s, nitro drip since weaned off. Patient denies any recent infectious symptoms including no fevers/chills, cough, otherwise without significant leukocytosis. She admits to salty food intake for Thanksgiving last week. CXR concerning for R middle/lower lobe pneumonia vs pulmonary edema, clinical presentation more c/w pulmonary edema however patient reportedly only 1.5kg above dry weight, unable to r/o infection and so plan to continue abx treatment. Dialyzed today, approximately 2.5kg taken off during dialysis, standing dry weight post-dialysis approximately 43kg. Satting mid-90% on RA at this time. - Continue Ceftriaxone, Azithromycin, plan for transition to PO abx following discharge - Supplemental O2 available, plan to continue to wean off of O2 as tolerated - If still on O2 in the AM, plan to obtain repeat CXR to f/u infiltrates - per Epic, pt s/p Prevnar 13 on 03/28/2021. -need to clarify if pt has received PPSV23 in the past, if not recommend PPSV23 8+ wks after the Prevnar 13 (suggest sometime end May) and 5 yrs later. ESRD on HD Hyperkalemia Patient typically dialyzes MWF at [facility] via R IJ Permcath. EDW 45kg. Followed by lead database administrator Dr. Calvert of [facility]. Last dialyzed 05/26. Patient noted to be hyperkalemic in the ED to 5.7. Patient otherwise with non-concerning EKG. Not shifted in the ED given plan for patient to dialyzetoday, patient otherwise given 3g calcium gluconate and Lokelma 10g x while in the ED. - Continue M/W/F dialysis schedule, dialyzed today from the ED - Continue SHRIMP BOAT CAPTAIN phoslo, nephrocaps, calcitriol Congestive Heart Failure HTN Patient with documented prior history of CHF, although no records available in our system. Initial BP reportedly elevated in 160s systolic. Started on nitro drip, which has since been weaned off. Patient had BS cardiac US performed in the STAB room, demonstrating reduced EF, no RV dilation, bilateral B lines consistent with pulmonary edema. Patient had fluid taken off with dialysis today with subsequent improvement in respiratory status. - Continue SHRIMP BOAT CAPTAIN Lasix, Lisinopril, Metoprolol Elevated Troponin Patient with initial elevated troponin to 444 on arrival, since downtrending -> 363 -> 353. Likely demand ischemia in setting of acute hypoxia. No further troponins indicated at this time. Anemia of CKD Patient with chronic anemia of CKD, Hgb has remained stable ~9. No evidence of active bleeding. Diet: Diet: Renal Code status: Full Code DVT prophylaxis: SQH Owen: no Skin issues: None Lines: Peripheral IV 05/29/21 20 gauge Left Antecubital (Active) Peripheral IV 05/29/21 20 gauge;1 1/4 in length Left Forearm (Active) Discharge planning: TBD, likely discharge tomorrow pending continued improvement in respiratory status. Will need to transition to PO abx prior to discharge Chief Complaint: Shortness of Breath History of Present Illness: Jaz Garibay is a 80 y.o. female presenting for evaluation of gradually worsening shortness of breath earlier this morning. No known exacerbating or alleviating factors. She denies missing any recent dialysis appointments, with most recent dialysis on 05/26. She states she did not take her regular blood pressure medicines this morning due to coming into the ED early in the AM, however has otherwise been compliant with her normal BP medications. She admits to salty food intake on last week. She denies any recent fevers, chills, cough, chest pain, URI symptoms, nausea, vomiting, diarrhea, or any acute symptoms otherwise. She denies any sick contacts or recent travel. She states her symptoms have significantly improved since this morning, currently breathing comfortably on RA. Medical/Surgical History : ESRD HTN GERD January 2021 - RUE AVF Patient denies any significant surgical history otherwise Psychosocial History: Smokes cigarettes (approximately 1 cigarette daily) Denies EtOH intake Denies illicit substance abuse Recently moved to [place] from [place], [place]; Lives with son at home in [place] Family History: Sister - ESRD Sister - Alzheimer's Medications: Medications Prior to Admission Medication Sig ??? calcium acetate (PHOSLO) 667 mg oral capsule Take 667 mg by mouth 3 times daily with meals. ??? furosemide (LASIX) 80 mg oral TABS Take 80 mg by mouth daily. ??? lisinopril (PRINIVIL;ZESTRIL) 2.5 mg oral TABS Take 2.5 mg by mouth daily. ??? metoprolol (TOPROL XL) 25 mg oral XL tablet Take 12.5 mg by mouth daily. ??? nephrocaps (TRIPHRO) 1 MG oral capsule Take 1 capsule by mouth daily in the afternoon. ??? Multiple Vitamins-Minerals (RENAPLEX-D) oral TABS Take 1 tablet by mouth daily. ??? calcitRIOL (ROCALTROL) 0.25 mcg oral capsule Take 0.75 mcg by mouth with dialysis. ??? Methoxy PEG-Epoetin Beta (MIRCERA) 50 MCG/0.3ML Injection SOSY 50 mcg by IV Push route every 4 weeks. To be given at dialysis Allergies: Allergies Allergen Reactions ??? Iron Itching/Pruritus Review of systems: ROS 10 point ROS reviewed as negative except as noted in HPI. Objective: Vitals: 05/29/21 1613 05/29/21 1622 05/29/21 1726 05/29/21 1800 BP: 115/88 143/91 154/101 (!) 156/80 Cuff Location: Left Arm Patient Position: Lying Down Pulse: 66 97 94 90 Resp: 16 (!) 28 20 Temp: 36.2 ??C (97.2 ??F) 36.4 ??C (97.6 ??F) TempSrc: Temporal Oral Oral SpO2: 98% (!) 92% 94% Weight: 42.9 kg (94 lb 9.2 oz) 43 kg (94 lb 12.8 oz) Height: 1.6 m (5' 3) Estimated body mass index is 16.79 kg/m?? as calculated from the following: Height as of this encounter: 1.6 m (5' 3). Weight as of this encounter: 43 kg (94 lb 12.8 oz). Physical Exam General: Awake, Alert, Appropriate. Sitting comfortably in NAD. Head: NC/AT Eyes: No conjunctival injection, Lids normal ENT: No oropharyngeal/tonsillar exudate or erythema. Neck: Supple.Trachea midline. Cardio: RRR. Appears well-perfused. No lower extremity edema. Pulm: Breathing comfortably on RA. No increased WOB or accessory muscle use noted. Speaking in complete sentences. Equal rise and fall of the chest. Lungs clear to auscultation bilaterally. GI: Soft, NT/ND. No rebound tenderness or guarding. MSK: Freely moving all extremities. No contractures, deformities or cyanosis. Neuro: No grossly focal sensory or motor deficits noted. Normal speech. Skin: No rashes, lesions or bruising. Skin warm/dry Psych: Affect and behavior appropriate. Access: R IJ permcath appears C/D/I. RUE AVF with palpable thrill, no overlying tenderness or erythema. Labs: I have reviewed all the admission laboratory results. Lab Results Component Value Date NA 138 05/29/2021 K 5.7 (H) 05/29/2021 CHLORIDE 106 05/29/2021 GLU 129 (H) 05/29/2021 CR 8.08 (H) 05/29/2021 Lab Results Component Value Date WBC 8.49 05/29/2021 RBC 3.18 (L) 05/29/2021 HGB 9.2 (L) 05/29/2021 HGB 9.4 (L) 05/29/2021 HCT 27.9 (L) 05/29/2021 PLT 235 05/29/2021 I have reviewed today's laboratory results. Other Diagnostic Studies: I have independently viewed the radiology images. CXR 05/29 images show R lung opacity c/f pneumonia I have independently viewed the EKG. NSR. PCP: No primary care provider on file. Salena Muir MD 05/29/2021 18:57 FACULTY NOTE I saw and evaluated the patient on today, 05/29/2021. I discussed with the resident and agree with the resident's findings and plan documented in the resident's note from above. Appropriate correctionsand addendum are added as needed in italics. Jp Crowder MD, 05/29/2021 7:01 PM Staff Physician Division of Nephrology OPAEDIC TECHNOLOGIST documented in this encounter Consult Notes Bryce Ricketts, PharmD - 05/30/2021 11:00 AM CSTAssociated Order(s): DISCHARGE MED REC FINAL REVIEW BY PHARMACY PHARMACY DISCHARGE NOTE Jaz Garibay : 1940 Sex: female Pharmacy service was consulted for review of patient's discharge medications. Planned discharge medications are: Medication List Medications Indications calcitRIOL 0.25 mcg Capsule Commonly known as: ROCALTROL Take 0.75 mcg by mouth with dialysis. calcium acetate 667 mg Capsule Commonly known as: PHOSLO Take 667 mg by mouth 3 times daily with meals. furosemide 80 mg Tabs Commonly known as: LASIX Take 80 mg by mouth daily. lisinopril 2.5 mg Tabs Commonly known as: PRINIVIL;ZESTRIL Take 2.5 mg by mouth daily. metoprolol 25 mg XL tablet Commonly known as: TOPROL XL Take 12.5 mg by mouth daily. Mircera 50 MCG/0.3ML Sosy Generic drug: Methoxy PEG-Epoetin Beta 50 mcg by IV Push route every 4 weeks. To be given at dialysis nephrocaps 1 MG Capsule Take 1 capsule by mouth daily in the afternoon. RenaPlex-D Tabs Take 1 tablet by mouth daily. Assessment: Pertinent points to note: -- no changes made to SHRIMP [employer]AT CAPTAIN medications I have reviewed the patient's medications for discharge and have discussed the necessary changes with the provider. Changes have been made and medication list updated and complete. Please page with any questions. Bryce Ricketts PharmD 05/30/2021 11:00 For questions regarding this note, please contact pharmacist on service at PharmD Nephrology & OB/L&D/Applied Technologist ([employer]) or [phone]. If no response within needed timeframe, please contact central pharmacy via phone at [phone]. OPAEDIC TECHNOLOGIST documented in this encounter ED Notes Binu Young MD - 05/30/2021 1:02 AM CST ED Faculty Attestation and Note Jaz Garibay : 1940 Sex: female Patient Arrival Date and Time: 05/29/2021 6:15 AM FACULTY ATTESTATION I Binu Young MD, performed a history and physical examination of the patient and discussed management with the resident. I reviewed the resident's note and agree with the documented findings and planof care as documented in the resident's note. CRITICAL CARE Upon my evaluation, this patient had a high probability of imminent life or limb-threatening deterioration due to dyspnea, which required my highest level of preparedness to intervene emergently, and Ispent this critical care time directly and personally managing the patient. I have personally provided 35 minutes of critical care time exclusive of time spent on separately billable procedures, treating other patients, or teaching time. Time includes obtaining history, reviewing medical records, examining the patient, ordering and review of studies, pharmacotherapy includingNTG, pulse oximetry, review of laboratory data, interpretation of radiology studies, ECG interpretation, frequent reassessment, monitoring for potential decompensation, discussion with consultants and admission. This critical care time was performed to assess and manage the high probability of imminent deterioration that could result in respiratory failure, cardiac faliure and Trauma Team: Not activated. RN and ANCILLARY NOTES I have reviewed nursing and ancillary notes, and agree with protocol as initiated. PROCEDURES Not applicable MEDICAL DECISION MAKING The current EKG reviewed and interpreted: no ischemia, no QRS widening nor peaked T waves, current labs reviewed and interpreted and current images reviewed and interpreted: fluid overload, RLL infiltrate Date of service for this patient was 05/29/2021 6:15 AM Jaz Garibay is a 80 y.o. female with the following vital signs: BP 131/74 (Cuff Location: Left Arm) Pulse 87 Temp 36.4 ??C (97.6 ??F) (Oral) Resp 20 Ht 1.6 m (5' 3) Wt 43 kg (94 lb 12.8 oz) SpO2 95% BMI 16.79 kg/m?? who complains of increasing SOB past few days. Is dialysis patient. Hypoxic at [place] 80s, responded to 10l facemask O2. Does make urine and K 5.7 at OSH - advised give Lasix 80mg and calcium gluconate and start NTG qtt at 50mcg/min prior to transfer as BP in 180s. Arrives improving, does not need BiPAP, given additional Ca on arrival here K 5.5, NTG drip continuing.RLL infiltrate suspicous for infection, abx started, consult with renal for dialysis. Plan dialysis and admit further management. OPAEDIC TECHNOLOGIST Eloise Ayala PA-C - 05/29/2021 5:19 PM CST Transfer of Care ED Provider Note Name: Jaz Garibay : 1940 Sex: female FINAL ED COURSE / MDM Patient here for flash pulmonary edema, s/p nitro drip and BiPAP, now weaned. Patient went from dialysis to hospital bed, I did not meet/assess patient or perform any interventions. CLINICAL IMPRESSION 1. SOB (shortness of breath) SIGN OUT In brief, 80 y.o. female PMH/o ESRD HD MWF presents initially to [facility] with shortness of breath, hypoxic to 80s ORA. Placed on 10 L facemask. Nitro drip. Given calcium gluconate for hyperkalemia at OSH. On arrival, K 5.5. Renal team did not want to shift. Given additional calcium as well as lokelma. Troponin 444, likely 2/2 demand. Low suspicion ACS. No chest pain or EKG changes. RLL PNA - given ceftriaxone and azithromycin. Weaned off nitro, down to 4L NC. Tripoding and shortness of breath after walk to bathroom, placed onBiPAP for 30 minutes with improvement of clinical status. Went to dialysis. Pended to CARE. Off nitro drip, off BiPAP. Patient signed out by Michelle JUNG. Please see their note for more detailed H&P. TRANSFER PLAN At dialysis - and bed is ready ORDERS Orders Placed This Encounter ??? XR CHEST 1 VIEW AP OR PA* ??? BLOOD GASES ??? CBC WITH PLTS/AUTO DIFF ??? ED CHEMISTRY LABS(NA,K,CL,CO2,GLU,CREAT,CA-IONIZED,ANION GAP) ??? ED HEMOGLOBIN TOTAL (ED ONLY) ??? FIBRINOGEN ??? LACTATE (LACTIC ACID) ??? PRECAUTIONARY TUBE ??? COVID-19 SURVEILLANCE ? ? PROTHROMBIN (PT) & INR ??? PTT (APTT) ??? HS TROPONIN ??? TROP 2H ??? TROP 4H ??? TROP 6H ??? EXTRA TUBE - SST ??? EXTRA TUBE - ROME ??? EXTRA TUBE - SST ??? HEPATITIS B SURFACE ANTIBODY ??? HEPATITIS B SURFACE ANTIGEN ??? ED CHEMISTRY LABS(NA,K,CL,CO2,GLU,CREAT,CA-IONIZED,ANION GAP) ??? Diet: Renal ??? ED CARDIAC MONITORING ? ? OXIMETRY-CONT (ED/PACU/L&D/OR/IR) ??? PERIPHERAL IV ??? Call Rabbit Fancier if unable to maintain SBP/MAP while on Dialysis ??? No Anticoagulation on Dialysis is needed ??? cefTRIAXone (ROCEPHIN) 2 g in NaCl 0.9% 100 mL IVPB ??? azithromycin (ZITHROMAX) 500 mg in NaCl 0.9% 250 mL IVPB ??? nitroGLYCERIN 50 mg in dextrose 5% 250 mL infusion ??? sodium zirconium cyclosilicate (LOKELMA) packet 10 g ??? NaCl 0.9% 100 mL bolus ??? calcium gluconate 10% IV 3 g ??? ondansetron (ZOFRAN) 4 mg/2 mL injection 4 mg ??? calcium acetate (PHOSLO) 667 mg oral capsule ??? furosemide (LASIX) 80 mg oral TABS ??? lisinopril (PRINIVIL;ZESTRIL) 2.5 mg oral TABS ??? metoprolol (TOPROL XL) 25 mg oral XL tablet ??? nephrocaps (TRIPHRO) 1 MG oral capsule ??? Multiple Vitamins-Minerals (RENAPLEX-D) oral TABS ??? calcitRIOL (ROCALTROL) 0.25 mcg oral capsule ??? Methoxy PEG-Epoetin Beta (MIRCERA) 50 MCG/0.3ML Injection SOSY ??? URINALYSIS,TOTAL ??? Hemodialysis Orders for Today RESULTS Results for orders placed or performed during the hospital encounter of 05/29/21 (from the past 24 hour(s)) BLOOD GASES Result Value Ref Range PH Edwin 7.36 7.32 - 7.42 PCO2 Edwin 40 (L) 41 - 51 mmHG PO2 Edwin 33 25 - 40 mmHG Bicarb Edwin 22 (L) 24 - 28 mEq/L O2 Sat Edwin 48 % Base Exc Edwin -3.2 -10.0 - 2.0 mEq/L CBC WITH PLTS/AUTO DIFF Result Value Ref Range WBC 8.49 4.00 - 10.00 k/cmm RBC 3.18 (L) 3.90 - 5.20 m/cmm Hgb 9.2 (L) 11.5 - 15.7 g/dL Hematocrit 27.9 (L) 34.0 - 45.0 % MCV 87.7 80.0 - 100.0 fL MCH 28.9 25.0 - 32.0 pg MCHC 33.0 31.0 - 36.0 g/dL RDW 17.9 (H) 11.5 - 14.5 % Plt 235 150 - 400 k/cmm MPV 10.3 6.5 - 12.5 fL NRBC 0.0 0.0 - 0.0 % Automated Abs Neutrophil 7.07 (H) 1.70 - 6.50 k/cmm Abs Immature Granulocyte 0.06 0.00 - 0.09 k/cmm Abs Neutrophil 7.07 (H) 1.70 - 6.50 k/cmm Abs Lymphocyte 0.80 0.80 - 4.00 k/cmm Abs Monocyte 0.46 0.20 - 1.00 k/cmm Abs Eosinophil 0.04 0.00 - 0.60 k/cmm Abs Basophil 0.06 0.00 - 0.20 k/cmm ED CHEMISTRY LABS(NA,K,CL,CO2,GLU,CREAT,CA-IONIZED,ANION GAP) Result Value Ref Range Sodium 139 135 - 148 mEq/L Chloride 104 92 - 108 mEq/L AnGap 12 8 - 16 mEq/L Glucose 115 (H) 70 - 100 mg/dL ICA, Actual 4.66 4.40 - 5.20 mg/dL ICA, pH Corrected 4.57 4.40 - 5.20 mg/dL Creatinine 6.98 (H) 0.50 - 1.00 mg/dL BICARB 22 22 - 26 mEq/L eGFR, High 6 (L) >=60 ml/min/1.73m2 eGFR, Low 5 (L) >=60 ml/min/1.73m2 Potassium 5.5 (H) 3.5 - 5.3 mEq/L ED HEMOGLOBIN TOTAL (ED ONLY) Result Value Ref Range Hgb 9.4 (L) 11.5 - 15.7 g/dL FIBRINOGEN Result Value Ref Range Fibrinogen 331 200 - 400 mg/dL LACTATE (LACTIC ACID) Result Value Ref Range Lactate 1.6 0.7 - 2.1 mmol/L Narrative Send specimen on ice! PRECAUTIONARY TUBE Result Value Ref Range Prec Tube Precautionary Blood Bank Specimen Received. PROTHROMBIN (PT) & INR Result Value Ref Range PT 11.0 9.0 - 12.5 sec INR 0.9 0.8 - 1.1 PTT (APTT) Result Value Ref Range APTT 34.3 25.0 - 37.0 sec HS TROPONIN Result Value Ref Range HS Troponin I 444 (H) <=16 ng/L Narrative First Occurrence of the Troponin order is to be drawn Stat by Nursing staff on the unit. EXTRA TUBE - SST Result Value Ref Range SST TUBE Stored EXTRA TUBE - ROME Result Value Ref Range ROME TUBE Stored EXTRA TUBE - SST Result Value Ref Range SST TUBE Stored HEPATITIS B SURFACE ANTIBODY Result Value Ref Range HBV Surface Mikayla Reactive HEPATITIS B SURFACE ANTIGEN Result Value Ref Range HBV Surface Ag Nonreactive Nonreactive TROP 2H Result Value Ref Range 2H Trop 363 (H) <=16 ng/L 2H Delta Significant (A) Not Significant COVID-19 SURVEILLANCE Result Value Ref Range COVID-19 Not Detected Not Detected Narrative Preferred specimen is Nasopharyngeal swab Is the patient a healthcare employee: No Is the patient a Kun ([facility]) Employee: No TROP 4H Result Value Ref Range 4H Trop 352 (H) <=16 ng/L 4H Delta Indeterminate Not Significant ED CHEMISTRY LABS(NA,K,CL,CO2,GLU,CREAT,CA-IONIZED,ANION GAP) Result Value Ref Range Sodium 138 135 - 148 mEq/L Chloride 106 92 - 108 mEq/L AnGap 12 8 - 16 mEq/L Glucose 129 (H) 70 - 100 mg/dL ICA, Actual 4.34 (L) 4.40 - 5.20 mg/dL ICA, pH Corrected 4.34 (L) 4.40 - 5.20 mg/dL Creatinine 8.08 (H) 0.50 - 1.00 mg/dL BICARB 20 (L) 22 - 26 mEq/L eGFR, High 5 (L) >=60 ml/min/1.73m2 eGFR, Low 4 (L) >=60 ml/min/1.73m2 Potassium 5.7 (H) 3.5 - 5.3 mEq/L XR CHEST 1 VIEW AP OR PA* See Chart Review for Final Result IMPRESSION: Mixed interstitial and patchy airspace opacities in the right mid and lower lung field concerning for infection versus pulmonary edema. I have personally reviewed the image(s) and initial interpretation, and I agree with the findings asdocumented by the resident/fellow. Reading Radiologist: Eric Rivero Reading Resident: Jose Chu ED US CRITICAL CARE See Chart Review for Final Result Information from pt's chart, including past medical hx, family hx, social hx, and current prescription medications, were reviewed and subsequently aided the formation of the final assessment and plan. Dx, DDx, Assessment, and Plan were discussed with Attending Emergency Medicine Physician. OPAEDIC TECHNOLOGIST Janessa Dennis RN - 05/29/2021 4:54 PM CST Pt returning from dialysis, her run was three hours. OPAEDIC TECHNOLOGIST Janessa Dennis RN - 05/29/2021 3:37 PM CST Pt at dialysis. Janessa Correia RN - 05/29/2021 2:44 PM CST Pt in dialysis. Janessa Correia RN - 05/29/2021 12:35 PM CST Pt to dialysis, report given to Ramón. This nurse took patient to dialysis for her run. Janessa Correia RN - 05/29/2021 11:33 AM CST ED to IP Nursing Handoff Note S (Situation) Reason for Admission: 1. SOB (shortness of breath) Arrives to ED from: Home Precautions/Isolation: None Suspected Infection/Sepsis: No Restraints: None Combative: No B (Background) Pertinent Medical History: None Pertinent Social History: None A (Assessment) Vital Signs: BP 158/95 Pulse (!) 132 Temp 36.6 ??C (97.9 ??F) (Oral) Resp (!) 23 Ht 1.6 m (5' 3) Wt 46.3 kg (102 lb) SpO2 (!) 91% BMI 18.07 kg/m?? Oxygen: Nasal Cannula, 4 L/min Mobility: Independent Mental Status: Oriented Fall Risk: No Skin Integrity: intact On Telemetry: Yes Lines/Drains/Portacath: Yes R (Recommendations) Radiology/Labs Complete: Yes Equipment Needs: None Specialty Bed: N/A Double room appropriate: Yes Does the patient have any of the below elopement risk factors?: None of the above Safety Concerns/Continuous Monitoring: None Suicide Risk Level: None Family Present: No Next of Kin/Nursing Facility contacted: no Destination: Floor Patient Belongings Documented: No Was the patient held in the department for an extended period of time (bridging or border patient): No Other Considerations: none Provider Report Called to: Renal team (05/29/21 1064) RN: Janessa Dennis RN Extension #: [id number] OPAEDIC TECHNOLOGIST Janessa Dennis RN - 05/29/2021 10:25 AM CST ED to IP Nursing Handoff Note S (Situation) Reason for Admission: 1. SOB (shortness of breath) Arrives to ED from: Home Precautions/Isolation: None Suspected Infection/Sepsis: No Restraints: None Combative: No B (Background) Pertinent Medical History: None Pertinent Social History: None A (Assessment) Vital Signs: BP 145/89 Pulse (!) 100 Temp 36.6 ??C (97.9 ??F) (Oral) Resp (!) 22 Ht 1.6 m (5' 3) Wt 46.3 kg (102 lb) SpO2 99% BMI 18.07 kg/m?? Oxygen: Face Mask, 4 L/min Mobility: Independent Mental Status: Oriented Fall Risk: No Skin Integrity: intact On Telemetry: Yes Lines/Drains/Portacath: Yes R (Recommendations) Radiology/Labs Complete: Yes Equipment Needs: None Specialty Bed: N/A Double room appropriate: Yes Does the patient have any of the below elopement risk factors?: None of the above Safety Concerns/Continuous Monitoring: None Suicide Risk Level: None Family Present: No Next of Kin/Nursing Facility contacted: no Destination: Floor Patient Belongings Documented: No Was the patient held in the department for an extended period of time (bridging or border patient): No Other Considerations: none Provider Report Called to: Renal team (05/29/[id number]) RN: Janessa Dennis RN Extension #: [id number] OPAEDIC TECHNOLOGIST Cara Kennedy PA-C - 05/29/2021 9:08 AM CST ED Provider Note Jaz Garibay : 1940 Sex: female Patient Arrival Date and Time: 05/29/2021 6:15 AM TRANSFER OF CARE NOTE HPI & ED Course: In brief, 80 y.o. female with PMH significant for ESRD on HD ( MWF) who initially presented to an outside hospital with significant shortness of breath. Patient was initially tripoding with O2 sats in the low 80s. Patient was laced on 10 LPM facemask and started on a nitro drip, treated with sodium bicarb and calcium gluconate. Upon arrival here, patient was evaluated in the stable room. O2 requirement slowly weaned and is currently on 4L. Nitro drip has been discontinued. K 5.5, she received lokelma, but nephrology recommends deferring insulin or other shifting with plan for dialysis today. Troponin 444, thought to be demand. Low suspicion for ACS. Chest x-ray with opacities concerning for pneumonia and she was treated with ceftriaxone, azithromycin. Patient signed out by Dr. Monae. Please see their note for more detailed H&P. Plan: Orders Placed This Encounter ??? XR CHEST 1 VIEW AP OR PA* ??? BLOOD GASES ??? CBC WITH PLTS/AUTO DIFF ??? ED CHEMISTRY LABS(NA,K,CL,CO2,GLU,CREAT,CA-IONIZED,ANION GAP) ??? ED HEMOGLOBIN TOTAL (ED ONLY) ??? FIBRINOGEN ??? LACTATE (LACTIC ACID) ??? LACTATE (LACTIC ACID) ??? PRECAUTIONARY TUBE ??? COVID-19 SURVEILLANCE ? ? PROTHROMBIN (PT) & INR ??? PTT (APTT) ??? HS TROPONIN ??? TROP 2H ??? TROP 4H ??? TROP 6H ??? EXTRA TUBE - SST ??? EXTRA TUBE - ROME ??? EXTRA TUBE - SST ??? ED CARDIAC MONITORING ? ? OXIMETRY-CONT (ED/PACU/L&D/OR/IR) ??? PERIPHERAL IV ??? cefTRIAXone (ROCEPHIN) 2 g in NaCl 0.9% 100 mL IVPB ??? azithromycin (ZITHROMAX) 500 mg in NaCl 0.9% 250 mL IVPB ??? nitroGLYCERIN 50 mg in dextrose 5% 250 mL infusion ??? sodium zirconium cyclosilicate (LOKELMA) packet 10 g ??? BLOOD CULTURES FOR SEPSIS ??? BLOOD CULTURES FOR SEPSIS ??? URINALYSIS,TOTAL Results: Results for orders placed or performed during the hospital encounter of 05/29/21 (from the past 24 hour(s)) BLOOD GASES Result Value Ref Range PH Edwin 7.36 7.32 - 7.42 PCO2 Edwin 40 (L) 41 - 51 mmHG PO2 Edwin 33 25 - 40 mmHG Bicarb Edwin 22 (L) 24 - 28 mEq/L O2 Sat Edwin 48 % Base Exc Edwin -3.2 -10.0 - 2.0 mEq/L CBC WITH PLTS/AUTO DIFF Result Value Ref Range WBC 8.49 4.00 - 10.00 k/cmm RBC 3.18 (L) 3.90 - 5.20 m/cmm Hgb 9.2 (L) 11.5 - 15.7 g/dL Hematocrit 27.9 (L) 34.0 - 45.0 % MCV 87.7 80.0 - 100.0 fL MCH 28.9 25.0 - 32.0 pg MCHC 33.0 31.0 - 36.0 g/dL RDW 17.9 (H) 11.5 - 14.5 % Plt 235 150 - 400 k/cmm MPV 10.3 6.5 - 12.5 fL NRBC 0.0 0.0 - 0.0 % Automated Abs Neutrophil 7.07 (H) 1.70 - 6.50 k/cmm Abs Immature Granulocyte 0.06 0.00 - 0.09 k/cmm Abs Neutrophil 7.07 (H) 1.70 - 6.50 k/cmm Abs Lymphocyte 0.80 0.80 - 4.00 k/cmm Abs Monocyte 0.46 0.20 - 1.00 k/cmm Abs Eosinophil 0.04 0.00 - 0.60 k/cmm Abs Basophil 0.06 0.00 - 0.20 k/cmm ED CHEMISTRY LABS(NA,K,CL,CO2,GLU,CREAT,CA-IONIZED,ANION GAP) Result Value Ref Range Sodium 139 135 - 148 mEq/L Chloride 104 92 - 108 mEq/L AnGap 12 8 - 16 mEq/L Glucose 115 (H) 70 - 100 mg/dL ICA, Actual 4.66 4.40 - 5.20 mg/dL ICA, pH Corrected 4.57 4.40 - 5.20 mg/dL Creatinine 6.98 (H) 0.50 - 1.00 mg/dL BICARB 22 22 - 26 mEq/L eGFR, High 6 (L) >=60 ml/min/1.73m2 eGFR, Low 5 (L) >=60 ml/min/1.73m2 Potassium 5.5 (H) 3.5 - 5.3 mEq/L ED HEMOGLOBIN TOTAL (ED ONLY) Result Value Ref Range Hgb 9.4 (L) 11.5 - 15.7 g/dL FIBRINOGEN Result Value Ref Range Fibrinogen 331 200 - 400 mg/dL LACTATE (LACTIC ACID) Result Value Ref Range Lactate 1.6 0.7 - 2.1 mmol/L Narrative Send specimen on ice! PRECAUTIONARY TUBE Result Value Ref Range Prec Tube Precautionary Blood Bank Specimen Received. PROTHROMBIN (PT) & INR Result Value Ref Range PT 11.0 9.0 - 12.5 sec INR 0.9 0.8 - 1.1 PTT (APTT) Result Value Ref Range APTT 34.3 25.0 - 37.0 sec HS TROPONIN Result Value Ref Range HS Troponin I 444 (H) <=16 ng/L Narrative First Occurrence of the Troponin order is to be drawn Stat by Nursing staff on the unit. EXTRA TUBE - SST Result Value Ref Range SST TUBE Stored EXTRA TUBE - ROME Result Value Ref Range ROME TUBE Stored EXTRA TUBE - SST Result Value Ref Range SST TUBE Stored Transfer of Care Plan: Awaiting CARE admission Nephrology plans for dialysis today May consider downgrading to floor admission after dialysis for management of her pneumonia Final ED Course, Disposition, and Plan: Care assumed from the previous provider and available lab, imaging results were reviewed. Troponins downtrending, and patient denies chest pain on recheck. During observation in the ED, patient experienced some progressive shortness of breath and was again found to be tripoding. She was briefly started on BiPAP, which she tolerated with some difficulty for approximately 30-minutes; following this, patient was transitioned back to 4LPM and reported symptom improvement. She received an additional 3 g calcium gluconate. Repeat chem panel obtained with plan to shift if patient's potassium is rising, however she was transferred to the acute dialysis unit before this had resulted. Patient returned to the ED following completion of her dialysis run and remained in the ED awaiting admission at the end ofmy shift. Care was signed out to Elizabeth Ayala PA-C; please refer to this note for additional ED course and updates and treatment. Cara Kennedy PA-C, 05/29/2021 9:08 AM OPAEDIC TECHNOLOGIST Yomi Carpenter PA-C - 05/29/2021 7:24 AM CST ED Provider Note Jaz Garibay : 1940 Sex: female Patient Arrival Date and Time: 05/29/2021 6:15 AM TRANSFER OF CARE NOTE HPI & ED Course: 80 y.o. female with PMH of ESRD, presents with SOB to [facility], was [facility]. Initially was tripodding with sats in low 80s, given 2 duonebs and nitro started, sodium bicarb and calcium at OSH. She normally dialyzes MWF; nitro was at 60 mcg when she got to [facility] room. Bps 160s. Sent here with 10 LPM face mask, weaned down. CXR with opacities, concerning for PNA. Given ceftriaxone and azithromcyin. K 5.5. Plan to talk to renal fellow, maybe can dialyze and then admit for PNA? Patient signed out from previous provider, please see JOSE JUAN note for details. Plan: Orders Placed This Encounter ??? XR CHEST 1 VIEW AP OR PA* ??? BLOOD GASES ??? CBC WITH PLTS/AUTO DIFF ??? ED CHEMISTRY LABS(NA,K,CL,CO2,GLU,CREAT,CA-IONIZED,ANION GAP) ??? ED HEMOGLOBIN TOTAL (ED ONLY) ??? FIBRINOGEN ??? LACTATE (LACTIC ACID) ??? LACTATE (LACTIC ACID) ??? PRECAUTIONARY TUBE ??? COVID-19 SURVEILLANCE ? ? PROTHROMBIN (PT) & INR ??? PTT (APTT) ??? HS TROPONIN ??? TROP 2H ??? TROP 4H ??? TROP 6H ??? EXTRA TUBE - SST ??? EXTRA TUBE - ROME ??? EXTRA TUBE - SST ??? ED CARDIAC MONITORING ? ? OXIMETRY-CONT (ED/PACU/L&D/OR/IR) ??? PERIPHERAL IV ??? cefTRIAXone (ROCEPHIN) 2 g in NaCl 0.9% 100 mL IVPB ??? azithromycin (ZITHROMAX) 500 mg in NaCl 0.9% 250 mL IVPB ??? nitroGLYCERIN 50 mg in dextrose 5% 250 mL infusion ??? BLOOD CULTURES FOR SEPSIS ??? BLOOD CULTURES FOR SEPSIS ??? URINALYSIS,TOTAL Results: Results for orders placed or performed during the hospital encounter of 05/29/21 (from the past 24 hour(s)) BLOOD GASES Result Value Ref Range PH Edwin 7.36 7.32 - 7.42 PCO2 Edwin 40 (L) 41 - 51 mmHG PO2 Edwin 33 25 - 40 mmHG Bicarb Edwin 22 (L) 24 - 28 mEq/L O2 Sat Edwin 48 % Base Exc Edwin -3.2 -10.0 - 2.0 mEq/L ED CHEMISTRY LABS(NA,K,CL,CO2,GLU,CREAT,CA-IONIZED,ANION GAP) Result Value Ref Range Sodium 139 135 - 148 mEq/L Chloride 104 92 - 108 mEq/L AnGap 12 8 - 16 mEq/L Glucose 115 (H) 70 - 100 mg/dL ICA, Actual 4.66 4.40 - 5.20 mg/dL ICA, pH Corrected 4.57 4.40 - 5.20 mg/dL Creatinine 6.98 (H) 0.50 - 1.00 mg/dL BICARB 22 22 - 26 mEq/L eGFR, High 6 (L) >=60 ml/min/1.73m2 eGFR, Low 5 (L) >=60 ml/min/1.73m2 Potassium 5.5 (H) 3.5 - 5.3 mEq/L ED HEMOGLOBIN TOTAL (ED ONLY) Result Value Ref Range Hgb 9.4 (L) 11.5 - 15.7 g/dL LACTATE (LACTIC ACID) Result Value Ref Range Lactate 1.6 0.7 - 2.1 mmol/L Narrative Send specimen on ice! EXTRA TUBE - SST Result Value Ref Range SST TUBE Stored EXTRA TUBE - ROME Result Value Ref Range ROME TUBE Stored EXTRA TUBE - SST Result Value Ref Range SST TUBE Stored Workup Pending: Admit Transfer of Care Plan: Admit to renal team Final ED Course, Disposition, and Plan: Care received from previous provider. I spoke with Coty on the renal team who requested that the patient not be shifted with insulin, give lokelma, give calcium gluconate if needed. She was moved [facility] to wait for admission. Signed out to Brent JUNG with plans to follow up on recommendations from renal team and admit for PNA, K 5.5. Her nitro drip was turned off before she was moved down to [facility]. Initial trop 400s, denies chest pain. Will get repeat delta troponin but at this time suspect demand, does not seem consistent with ACS. Assessment and plan discussed with faculty physician. Final assessment: 1. SOB (shortness of breath) Yomi Carpenter PA-C, 05/29/2021 8:08 AM OPAEDIC TECHNOLOGIST Juliana Cason, WIN - 05/29/2021 7:13 AM CST Bed: A03 Expected date: Expected time: Means of arrival: Comments: Stab 2 OPAEDIC TECHNOLOGIST Binu James RN - 05/29/2021 6:41 AM CST Pt BIBA transfer from [facility] for SOB. Pt had been tripoding with 81% SpO2. 20g PIV in L AC. Pt given 2 duonebs, nitroglycerin infusion started, calcium gluconate, sodium bicarb and ativan at OSH. Pt on dialysis MWF. Nitroglycerine infusion at 60mcg upon arrival to [facility] 1 and pt's SBP 160s-18 0s.Dialysis fistula R arm and dialysis port L upper chest. Pt transported with 10Lpm O2 with face mask. OPAEDIC TECHNOLOGIST documented in this encounter Miscellaneous Notes Interval Note Provider - Livan Kiran MD - 05/30/2021 12:25 PM ORTHOPAEDIC TECHNOLOGIST [facility] [place]rology [facility] Renal Service Discharge Dialysis Orders Jaz Garibay Date of : 1940 Dialysis Unit: [facility] Primary Rabbit Fancier: Dr. Calvert Date of Admission: 05/29/2021 Date of Discharge: 05/30/2021 Discharge Diagnosis: Acute hypoxic respiratory insufficiency from pulmonary edema Admission type: [xxx] Inpatient [ ] Observation [ ] New initiation, new dialysis orders will be faxed. [xxx] Resume all previous dialysis orders with exception as noted below New Orders (if not applicable put NA): Estimated Dry Weight Lowered to 43kg (shortness resolved after UF-ing lower than previous TW) Dialysis Duration NA Dialysis Access NA Antibiotics (dose per dialysis, end date) NA Labs to be drawn at dialysis NA Other major changes to dialysis prescription (e.g. Dialysate bath, heparin, blood flow rate, etc) NA Medication changes (also fax the unit a copy of the discharge summary) NA Current Discharge Medication List Unchanged Home Medications Details calcium acetate (PHOSLO) 667 mg oral capsule Take 667 mg by mouth 3 times daily with meals. furosemide (LASIX) 80 mg oral TABS Take 80 mg by mouth daily. lisinopril (PRINIVIL;ZESTRIL) 2.5 mg oral TABS Take 2.5 mg by mouth daily. metoprolol (TOPROL XL) 25 mg oral XL tablet Take 12.5 mg by mouth daily. nephrocaps (TRIPHRO) 1 MG oral capsule Take 1 capsule by mouth daily in the afternoon. Multiple Vitamins-Minerals (RENAPLEX-D) oral TABS Take 1 tablet by mouth daily. calcitRIOL (ROCALTROL) 0.25 mcg oral capsule Take 0.75 mcg by mouth with dialysis. Methoxy PEG-Epoetin Beta (MIRCERA) 50 MCG/0.3ML Injection SOSY 50 mcg by IV Push route every 4 weeks. To be given at dialysis Name of physician completing this form: Livan Kiran MD, 05/30/2021 12:25 PM OPAEDIC TECHNOLOGIST Nursing Assessment - Aaliyah Davis RN - 05/30/2021 1:11 AM CST Nursing Assessment Head to Toe Head to Toe Assessment Shift Summary Pt alert and oriented x4. Can make her needs known. On room air. Denies pain or SOB. Medication given per order. Independent. Refused CHG, stating she will do it herself in the morning. She also refused heparin subq. Sleeping comfortable in her bed. Continue to monitor and follow POC. Neurologic/Cognitive Assessment Within Defined Limits except for: Mood/Behavior: Behavior appropriate to situation and calm HEENT Within Defined Limits Cardiac Within Defined Limits Respiratory Within defined limits Comments: RA Neurovascular Within Defined Limits Gastrointestinal Within Defined Limits Genitourinary Assessment Within Defined Limits except for: Voiding: Oliguric and hemodialysis Musculoskeletal Assessment Within Defined Limits except for: Musculoskeletal Assessment: General Mobility: Generalized weakness Comments: Independent Integumentary Assessment Within Defined Limits except for: Skin Assessment Integrity - incision Comments: RUE Fistula and R chest perma cath Patient Lines/Drains/Airways Status Active LDAs Name Placement date Placement time Site Days Peripheral IV 05/29/21 20 gauge Left Antecubital 05/29/21 0620 -- less than 1 Peripheral IV 05/29/21 20 gauge;1 1/4 in length Left Forearm 05/29/21 0627 -- less than 1 Hemodialysis Access Tunneled right;subclavian vein -- -- -- -- Hemodialysis Access -- -- -- -- Psychosocial Assessment Within Defined Limits except for: Psychosocial Assessment: Observed Patient Behaviors: Pleasant Verbalized Emotional State: Acceptance Family Behavior: not present OPAEDIC TECHNOLOGIST Nursing Assessment - Jeannette Peterson RN - 05/29/2021 6:28 PM CST Nursing Assessment Head to Toe Head to Toe Assessment Shift Summary [facility] NURSING ADMISSION NOTE Jaz Garibay : 1940 SEX: female D: Jaz Garibay was admitted to CaRe from ED at 1756 for SOB (shortness of breath). Patient: alert, oriented to person, place and time. Pain: non-existent. Full assessment completed, see flowsheet for details. Skin: Upon admission a Four Eyes Skin Inspection was completed with Dominique CARRERA. Skin injuries were not present. Will continue to use Javier Scale and skin bundle interventions as appropriate. A: Pt oriented to unit, room, and use of call light. Telemetry not place, pt refused, aware and ok with this. R:PATIENT AND/OR FAMILY: patient was able to verbalize understanding of unit policy and plan of care. Questions answered. Learning considerations: None. P: Implement orders as received. Will continue to monitor, follow plan of care, and notify provider and/or team as needed. Jeannette Peterson RN, 05/29/2021 6:16 PM Neurologic/Cognitive Assessment Within Defined Limits except for: Mood/Behavior: Behavior appropriate to situation and calm HEENT Within Defined Limits Cardiac Within Defined Limits Respiratory Within defined limits Comments: On RA Neurovascular Within Defined Limits Gastrointestinal Within Defined Limits Genitourinary Assessment Within Defined Limits except for: Voiding: Oliguric and hemodialysis Musculoskeletal Assessment Within Defined Limits except for: Musculoskeletal Assessment: General Mobility: Generalized weakness Comments: Independent Integumentary Assessment Within Defined Limits except for: Skin Assessment Integrity - incision Comments: RUE Fistula and R chest perma cath Patient Lines/Drains/Airways Status Active LDAs Name Placement date Placement time Site Days Peripheral IV 05/29/21 20 gauge Left Antecubital 05/29/21 0620 -- less than 1 Peripheral IV 05/29/21 20 gauge;1 1/4 in length Left Forearm 05/29/21 0627 -- less than 1 Hemodialysis Access Tunneled right;subclavian vein -- -- -- -- Hemodialysis Access -- -- -- -- Psychosocial Within Defined Limits OPAEDIC TECHNOLOGIST Interval Note Provider - Salena Muir MD - 05/29/2021 8:10 AM ORTHOPAEDIC TECHNOLOGIST Handoff Communication Note for Hospital Admission Verbal handoff received from Yomi Carpenter PA-C in Team Center A, care transferring to Renal B. Patient status: Inpatient Brief summary of handoff from ED/Clinic Staff: 80 year old F with history significant for ESRD on HD (M/W/F) presents as transfer from [place] for evaluation of shortness of breath, found to be 80% O2 sats on room air. Patient was placed on nonrebreather, started on nitro drip, systolic blood pressure found to be in the 160s. On arrival to ED here patient was placed on 10L facemask O2. Given calcium gluconate and bicarb. Potassium 5.5, EKG without any significant abnormalities, troponins pending. Chest x-ray concerning for RLL pneumonia, patient started on ceftriaxone and azithromycin. Nitro drip has since been turned off. Please page the Renal B Team via [employer] with clinical updates or status changes. Note is for documentation only and not for billing purposes. Salena Muir MD, 05/29/2021 8:11 AM Emergency Medicine / Internal Medicine, PGY1 OPAEDIC TECHNOLOGIST ED Stabilization Note - Marilyn Joanna Lizet - 05/29/2021 6:25 AM CST Emergency Medicine Stabilization Room Note Jaz Garibay 1940 Sex: female Patient Arrival Date and Time: 05/29/2021 6:15 AM Emergency Medicine Faculty Binu Young EM Stabilization Resident Joanna Sanders Stabilization Team RN: Cierra Schmid HCA: [facility] None Pre-Hospital Events Jaz Garibay is a 80 y.o. female presents to the stabilization room with concern from pulmonary edema. Patient has history of ESRD on HD. She presented to an outside hospital with 2 days of shortness of breath and hypoxia to 80s. She was placed on 10L via face mask, started on nitro drip, and transferred here with concern for pulmonary edema requiring dialysis. On arrival, patient notes ongoing but improved breathing. She denies fever or chest pain. Review of additional history is limited due to patient's acute illness Primary Survey Airway: Patent, protecting Breathing: Mildly increased work of breathing. Symmetric chest rise. Circulation: Skin warm. Radial pulses palpable. Disability: 4 - Opens eyes spontaneously; 5 - Oriented, converses normally; 6 - Obeys commands) GCS 15 Exposure: Clothing removed. Vital Signs BP 157/87 (Cuff Location: Left Arm) Pulse 92 Temp 36.9 ??C (98.5 ??F) (Oral) Resp 20 Ht 1.6 m (5' 3) Wt 43 kg (94 lb 12.8 oz) SpO2 95% BMI 16.79 kg/m?? Please seen flowsheet for additional vitals. Secondary Survey General: Awake and alert. Mild tachypnea on 10L via mask Head: NC/AT Eyes: No conjunctival injection, Lids normal ENT: No oropharyngeal/tonsillar exudate or erythema. MMM Neck: Supple.Trachea midline. Cardio: RRR. Appears well-perfused Pulm: See primary survey GI: Soft, NT/ND. No rebound tenderness or guarding. MSK: Freely moving all extremities. No contractures, deformities or cyanosis. Neuro: PERRLA. No grossly focal sensory or motor deficits noted. Normal speech. Skin: No rashes, lesions or bruising. Skin warm/dry Psych: Exam limited d/t acuity of patient's condition Review of Systems Review of systems limited by patient's acute illness Code Status I am unaware of any advanced directive wishes of this patient prior to treatment of this patient. Procedures I performed the following procedures: Adult Medical Resuscitation. Stabilization Room Events / Medical Decision Making / Disposition Jaz Garibay is a 80 y.o. female presenting with shortness of breath concerning for pulmonary edema.As the patient arrived to the stabilization room, report was taken from EMS and patient. Patient transferred to STAB cart. Primary survey completed while patient placed on oximetry, cardiac monitoring,and cuff blood pressure monitoring. Intravenous access established and initial blood tests sent. Secondary survey completed Initial vitals with 150s systolic and oxygen saturations 95% on 10L via face mask with minimal increased work of breathing. Nitro drip held, BiPAP not indicated at this time. Bedside U/S with B lines, mildly reduced LV function Labs notable for K 5.5 - calcium gluconate given. CXR with RLL infiltrate - ceftriaxone and azithromycin given. No significant pulmonary edema. Plan to admit patient to [facility] with Renal team, follow up labs and final read on imaging. Plan to call Nephrology to arrange dialysis. Patient was transferred to the ED team center while in stable condition. Their care was signed out [id number] with the ED team center provider. Please see their note for the remainder of patient's care while in the emergency department. Sepsis Protocol: NA Clinical Impression 1. SOB (shortness of breath) Disposition To Team Center Joanna Sanders MD PGY3 Emergency Medicine Resident OPAEDIC TECHNOLOGIST documented in this encounter Plan of Treatment Not on filedocumented as of this encounter Procedures Procedure Name Priority Date/Time Associated Comments Diagnosis PANEL RENAL STAT 05/30/2021 6:31 AM Results f or this ORTHOPAEDIC TECHNOLOGIST procedure are i n the results section. PC LAB CBC/PLT Routine 05/30/2021 6:31 AM Results for this ORTHOPAEDIC TECHNOLOGIST procedure are i n the results section. PC ELECTROLYTES PANEL STAT 05/29/2021 12:05 Re sults for this PM ORTHOPAEDIC TECHNOLOGIST procedure are i n the results section. PC TROPONIN Timed 05/29/2021 10:31 Results for this QUANTITATIVE AM ORTHOPAEDIC TECHNOLOGIST procedure are i n the results section. COVID-19 SURVEILLANCE STAT 05/29/2021 9:28 AM Results for this ORTHOPAEDIC TECHNOLOGIST procedure are i n the results section. PC TROPONIN Timed 05/29/2021 8:38 AM Results f or this QUANTITATIVE ORTHOPAEDIC TECHNOLOGIST procedure are i n the results section. ED EKG (12-LEAD) Routine 05/29/2021 6:46 AM Resul ts for this ORTHOPAEDIC TECHNOLOGIST procedure are i n the results section. XR CHEST 1 VIEW AP OR STAT 05/29/2021 6:32 AM Results for this PA* ORTHOPAEDIC TECHNOLOGIST procedure are i n the results section. EXTRA TUBE - ROME Routine 05/29/2021 6:30 AM Resu lts for this ORTHOPAEDIC TECHNOLOGIST procedure are i n the results section. EXTRA TUBE - SST Routine 05/29/2021 6:30 AM Resul ts for this ORTHOPAEDIC TECHNOLOGIST procedure are i n the results section. PC FREE STANDING BLOOD Routine 05/29/2021 6:30 AM Results for this DRAW BY VENIPUNCTURE ORTHOPAEDIC TECHNOLOGIST procedu re are in the results section. PC TROPONIN STAT 05/29/2021 6:30 AM Results f or this QUANTITATIVE ORTHOPAEDIC TECHNOLOGIST procedure are i n the results section. PC ELECTROLYTES PANEL STAT 05/29/2021 6:30 AM Results for this ORTHOPAEDIC TECHNOLOGIST procedure are i n the results section. PC LAB CBC W/DIFF & STAT 05/29/2021 6:30 AM Re sults for this PLT ORTHOPAEDIC TECHNOLOGIST procedure are i n the results section. TC LAB ER STAT TOTAL STAT 05/29/2021 6:30 AM R esults for this HGB ORTHOPAEDIC TECHNOLOGIST procedure are i n the results section. PROTHROMBIN (PT) & INR STAT 05/29/2021 6:30 AM Results for this ORTHOPAEDIC TECHNOLOGIST procedure are i n the results section. PRECAUTIONARY TUBE STAT 05/29/2021 6:30 AM Res ults for this ORTHOPAEDIC TECHNOLOGIST procedure are i n the results section. PC LACTATE (LACTIC STAT 05/29/2021 6:30 AM Res ults for this ACID) ORTHOPAEDIC TECHNOLOGIST procedure are i n the results section. HEPATITIS B SURFACE Routine 05/29/2021 6:30 AM Re sults for this ANTIGEN ORTHOPAEDIC TECHNOLOGIST procedure are i n the results section. HEPATITIS B SURFACE Routine 05/29/2021 6:30 AM Re sults for this ANTIBODY ORTHOPAEDIC TECHNOLOGIST procedure are i n the results section. PC GASES,BLOOD,ANY STAT 05/29/2021 6:30 AM Res ults for this COMB OF ORTHOPAEDIC TECHNOLOGIST procedure are i n PH,PCD2,PO2,CO2,HCO2 the res ults section. FIBRINOGEN STAT 05/29/2021 6:30 AM Results f or this ORTHOPAEDIC TECHNOLOGIST procedure are i n the results section. PC LAB PTT STAT 05/29/2021 6:30 AM Results f or this ORTHOPAEDIC TECHNOLOGIST procedure are i n the results section. ED US CRITICAL CARE STAT 05/29/2021 6:17 AM Re sults for this ORTHOPAEDIC TECHNOLOGIST procedure are i n the results section. documented in this encounter Results (ABNORMAL) PANEL RENAL (05/30/2021 6:31 AM ORTHOPAEDIC TECHNOLOGIST) P athologist Signature Sodium 139 135 - 148 [facility] mEq/L Potassium 4.3 3.5 - 5.3 [facility] mEq/L Chloride 98 92 - 108 [facility] mEq/L CO2 26 22 - 30 [facility] mEq/L AnGap 15 8 - 16 [facility] mEq/L Glucose 81 70 - 100 [facility] mg/dL BUN 37 (H) 8 - 23 [facility] mg/dL Creatinine 4.15 (H) 0.50 - 1.00 [facility] mg/dL Calcium 9.2 8.8 - 10.2 [facility] mg/dL Albumin 4.1 3.8 - 5.1 [facility] g/dL Phosphorus 5.6 (H) 2.5 - 4.5 [facility] mg/dL eGFR, High 11 (L) >=60 [facility] ml/min/1.73 m2 Comment: Calculated using CKD-EPI equati on eGFR, Low 10 (L) >=60 ml/min/1.73m2 [facility] Comment: Calculated using CKD-EPI equati on Specimen Anatomical Collection Method Collection Time Receive d Time (Source) Location / / Volume Laterality Blood 05/30/2021 6:31 AM 7:18 ORTHOPAEDIC TECHNOLOGIST AM ORTHOPAEDIC TECHNOLOGIST Binu Young MD LABORATORY Performing Organization Address City/State/ZIP Code Phon e Number [facility] [place] [address] (ABNORMAL) CBC WITH PLATELET (05/30/2021 6:31 AM ORTHOPAEDIC TECHNOLOGIST) P athologist Signature WBC 4.84 4.00 - [facility] 10.00 k/cmm RBC 3.46 (L) 3.90 - 5.20 [facility] m/cmm Hgb 10.1 (L) 11.5 - 15.7 [facility] g/dL Hematocrit 28.9 (L) 34.0 - 45.0 [facility] % MCV 83.5 80.0 - [facility] 100.0 fL MCH 29.2 25.0 - 32.0 [facility] pg MCHC 34.9 31.0 - 36.0 [facility] g/dL RDW 17.7 (H) 11.5 - 14.5 [facility] % Plt 232 150 - 400 [facility] k/cmm MPV 9.9 6.5 - 12.5 [facility] fL NRBC 0.0 0.0 - 0.0 % [facility] Specimen Anatomical Collection Method Collection Time Receive d Time (Source) Location / / Volume Laterality Blood 05/30/2021 6:31 AM 7:12 ORTHOPAEDIC TECHNOLOGIST AM ORTHOPAEDIC TECHNOLOGIST Binu Young MD LABORATORY Performing Organization Address City/State/ZIP Code Phon e Number [facility] [place] [address] (ABNORMAL) ED CHEMISTRY LABS(NA,K,CL,CO2,GLU,CREAT,CA-IONIZED,ANION GAP) (05/29/2021 12:05 PM ORTHOPAEDIC TECHNOLOGIST) Analysis Performed At Patho logist Time Signature Sodium 138 135 - 148 [facility] mEq/L Chloride 106 92 - 108 [facility] mEq/L AnGap 12 8 - 16 [facility] mEq/L Glucose 129 (H) 70 - 100 [facility] mg/dL ICA, Actual 4.34 (L) 4.40 - [facility] 5.20 mg/dL ICA, pH 4.34 (L) 4.40 - [facility] Corrected 5.20 mg/dL Creatinine 8.08 (H) 0.50 - [facility] 1.00 mg/dL BICARB 20 (L) 22 - 26 [facility] mEq/L eGFR, High 5 (L) >=60 [facility] ml/min/1.7 3m2 Comment: Calculated using CKD-EPI equati on eGFR, Low 4 (L) >=60 ml/min/1.73m2 [facility] Comment: Calculated using CKD-EPI equati on Potassium 5.7 (H) 3.5 - 5.3 mEq/L [facility] Specimen Anatomical Collection Method Collection Time Receive d Time (Source) Location / / Volume Laterality Blood 05/29/2021 12:05 05/29/2021 PM ORTHOPAEDIC TECHNOLOGIST 12:06 PM ORTHOPAEDIC TECHNOLOGIST Cara Kennedy PA-C LABORATORY Performing Organization Address City/[facility] Code Phon e Number [facility] [place] [address] (ABNORMAL) TROP 4H (05/29/2021 10:31 AM ORTHOPAEDIC TECHNOLOGIST) [facility] gist Method Time Signature 4H Trop 352 (H) <=16 ng/L [facility] 4H Delta Indeterminate Not Significant [facility] Specimen Anatomical Collection Method Collection Time Receive d Time (Source) Location / / Volume Laterality Blood 05/29/2021 10:31 05/29/2021 AM ORTHOPAEDIC TECHNOLOGIST 10:48 AM ORTHOPAEDIC TECHNOLOGIST Binu Young MD LABORATORY Performing Organization Address City/[facility]/ZIP Code Phon e Number [facility] [place] [address] COVID-19 SURVEILLANCE (05/29/2021 9:28 AM ORTHOPAEDIC TECHNOLOGIST) [facility] Microtask Method Time Signature COVID-19 Not Detected Not Detected [facility] Specimen (Source) Anatomical Collection Method Collection Time Re ceived Time Location / / Volume Laterality Nasopharyngeal Swab 05/29/2021 9:28 05/29 AM ORTHOPAEDIC TECHNOLOGIST 9:28 AM ORTHOPAEDIC TECHNOLOGIST Narrative [facility] - 05/29/2021 9:58 AM ORTHOPAEDIC TECHNOLOGIST Preferred specimen is Nasopharyngeal swab Is the patient a healthcare employee: No Is the patient a [employer] ([facility]) Employee : No Binu Young MD LABORATORY Performing Organization Address City/[facility]/ZIP Code Phon e Number [facility] [place] [address] (ABNORMAL) TROP 2H (05/29/2021 8:38 AM ORTHOPAEDIC TECHNOLOGIST) [facility] gist Method Time Signature 2H Trop 363 (H) <=16 ng/L [facility] 2H Delta Significant (A) Not [facility] Significant Specimen Anatomical Collection Method Collection Time Receive d Time (Source) Location / / Volume Laterality Blood 05/29/2021 8:38 AM 9:08 ORTHOPAEDIC TECHNOLOGIST AM ORTHOPAEDIC TECHNOLOGIST Binu Young MD LABORATORY Performing Organization Address City/[facility]/ZIP Code Phon e Number [facility] [place] [address] ED EKG (12-LEAD) (05/29/2021 6:46 AM ORTHOPAEDIC TECHNOLOGIST) Specimen (Source) Anatomical Collection Method Collection Time Re ceived Time Location / / Volume Laterality 05/29/2021 6:46 AM ORTHOPAEDIC TECHNOLOGIST Impressions [facility] CVIS EKG ORDERS - 05/29/2021 6:46 A M ORTHOPAEDIC TECHNOLOGIST SINUS RHYTHM LEFT ATRIAL ENLARGEMENT ??[-0.15mV P-WAV E IN V1/V2] RIGHT BUNDLE BRANCH BLOCK ??[120+ ms QRS DURATION, UPRIGHT V1, 40+ ms S IN I/aVL/V4/V5/V6] POSSIBLE LEFT VENTRICULAR HYPERTROPHY ?? [VOLTAGE CRITERIA PLUS LAE OR QRS WIDENING] ABNORMAL ECG P-R Interval 144 ms QRS Interval 134 ms QT Interval 432 ms QTC Interval 478 ms P [place] 64 QRS [place] 9 T Wave [place] 86 Procedure Note Yomi Milligan MD - 05/29 IMPRESSION SINUS RHYTHM LEFT ATRIAL ENLARGEMENT [-0.15mV P-WAVE IN V1/V2] RIGHT BUNDLE BRANCH BLOCK [120+ ms QRS D URATION, UPRIGHT V1, 40+ ms S IN I/aVL/V4/V5/V6] POSSIBLE LEFT VENTRICULAR HYPERTROPHY [V OLTAGE CRITERIA PLUS LAE OR QRS WIDENING] ABNORMAL ECG P-R Interval 144 ms QRS Interval 134 ms QT Interval 432 ms QTC Interval 478 ms P [place] 64 QRS [place] 9 T Wave [place] 86 Binu Young MD EKG Performing Organization Address City/State/ZIP Code Phon e Number [facility] CVIS EKG ORDERS XR CHEST 1 VIEW AP OR PA* (05/29/2021 6:32 AM ORTHOPAEDIC TECHNOLOGIST) Anatomical Region Laterality Modality Chest Computed Radiography Specimen (Source) Anatomical Collection Method Collection Time Re ceived Time Location / / Volume Laterality 05/29/2021 6:37 AM ORTHOPAEDIC TECHNOLOGIST Impressions 05/29/2021 8:42 AM ORTHOPAEDIC TECHNOLOGIST IMPRESSION: Mixed interstitial and patchy airspace o pacities in the right mid and lower lung field concerning for infection versus pulmonary edema. I have personally reviewed the image(s) and initial interpretation, and I agree with the findings as documented by the resident/fellow. Reading Radiologist: Eric Rivero Reading Resident: Jose Chu Narrative 05/29/2021 8:42 AM ORTHOPAEDIC TECHNOLOGIST Exam: ??Single View Chest X-Ray 05/29/2021 Comparison: Earlier same day outside [facility] x-ray, 04/17/2021 History: STAB Patient Findings: Right IJ dual-lumen central ve nous catheter with tip overlying the superior caval atrial junction. Cardiomegaly. Atherosclerotic calcifications of the aortic arch. Next interstitial and patchy airspace opacities most pronounced in t he right mid and lower lung field. Bandlike atelectasis in the left midlung. No pneumothorax or significant pleural effusion. Visualized upper abdomen is unremarkable. No acute osseous abnormality. Procedure Note Eric Rivero MBBS - 05/29/2021Form atting of this note might be different from the original. Exam: Single View Chest X-Ray 05/29/2021 Comparison: Earlier same day outside [facility] x-ray, 04/17/2021 History: STAB Patient Findings: Right IJ dual-lumen central ve nous catheter with tip overlying the superior caval atrial junction. Cardiomegaly. Atherosclerotic calcifications of the aortic arch. Next interstitial and patchy airspace opacities most pronounced in the right m id and lower lung field. Bandlike atelectasis in the left midlung. No pneumothorax or significant pleural effusion. Visualized upper abdomen is unremarkable. No acute osseous abnormality. IMPRESSION IMPRESSION: Mixed interstitial and patchy airspace o pacities in the right mid and lower lung field concerning for infection versus pulmonary edema. I have personally reviewed the image(s) and initial interpretation, and I agree with the findings as documented by the resident/fellow. Reading Radiologist: Eric Rivero Reading Resident: Jose Chu Binu Young MD X-RAY HEPATITIS B SURFACE ANTIGEN (05/29/2021 6:30 AM ORTHOPAEDIC TECHNOLOGIST) Patholo gist Method Time Signature HBV Surface Nonreactive Nonreactive [facility] Ag Specimen Anatomical Collection Method Collection Time Receive d Time (Source) Location / / Volume Laterality Blood 05/29/2021 6:30 AM ORTHOPAEDIC TECHNOLOGIST 10:29 AM ORTHOPAEDIC TECHNOLOGIST Binu Young MD LABORATORY Performing Organization Address [facility] Code Phon e Number [facility] [place] [address] HEPATITIS B SURFACE ANTIBODY (05/29/2021 6:30 AM ORTHOPAEDIC TECHNOLOGIST) athologist Signature HBV Surface Reactive [facility] Mikayla Comment: Reactive implies immunity. Specimen Anatomical Collection Method Collection Time Receive d Time (Source) Location / / Volume Laterality Blood 05/29/2021 6:30 AM ORTHOPAEDIC TECHNOLOGIST 10:29 AM ORTHOPAEDIC TECHNOLOGIST Binu Young MD LABORATORY Performing Organization Address [facility] Phon e Number [facility] [place], [place] [id number] [place] [address] EXTRA TUBE - SST (05/29/2021 6:30 AM ORTHOPAEDIC TECHNOLOGIST) athologist Signature SST TUBE Stored [facility] Comment: SST tubes (Serum Separator) are stored in the lab for 3 days from the collection date. Specimen Anatomical Collection Method Collection Time Receive d Time (Source) Location / / Volume Laterality Blood 05/29/2021 6:30 AM 6:47 ORTHOPAEDIC TECHNOLOGIST AM ORTHOPAEDIC TECHNOLOGIST Binu Young MD LABORATORY Performing Organization Address City/[facility] Code Phon e Number [facility] [place] [address] EXTRA TUBE - ROME (05/29/2021 6:30 AM ORTHOPAEDIC TECHNOLOGIST) athologist Signature ROME TUBE Stored [facility] Comment: [place] top (Sodium flouride) tube s are stored in the lab for 3 days from the collection date. Specimen Anatomical Collection Method Collection Time Receive d Time (Source) Location / / Volume Laterality Blood 05/29/2021 6:30 AM 1 6:47 ORTHOPAEDIC TECHNOLOGIST AM ORTHOPAEDIC TECHNOLOGIST Binu Young MD LABORATORY Performing Organization Address City/[facility] Code Phon e Number [facility] [place] [address] EXTRA TUBE - SST (05/29/2021 6:30 AM ORTHOPAEDIC TECHNOLOGIST) athologist Signature SST TUBE Stored [facility] Comment: SST tubes (Serum Separator) are stored in the lab for 3 days from the collection date. Specimen Anatomical Collection Method Collection Time Receive d Time (Source) Location / / Volume Laterality Blood 05/29/2021 6:30 AM 6:47 ORTHOPAEDIC TECHNOLOGIST AM ORTHOPAEDIC TECHNOLOGIST Binu Young MD LABORATORY Performing Organization Address City/[facility]/ZIP Code Phon e Number [facility] [place] [address] (ABNORMAL) HS TROPONIN (05/29/2021 6:30 AM ORTHOPAEDIC TECHNOLOGIST) athologist Signature HS Troponin I 444 (H) <=16 ng/L [facility] Specimen Anatomical Collection Method Collection Time Receive d Time (Source) Location / / Volume Laterality Blood 05/29/2021 6:30 AM 7:36 ORTHOPAEDIC TECHNOLOGIST AM ORTHOPAEDIC TECHNOLOGIST Narrative [facility] - 05/29/2021 8:12 AM ORTHOPAEDIC TECHNOLOGIST First Occurrence of the Troponin order i s to be drawn Stat by Nursing staff on the unit. Binu Young MD LABORATORY Performing Organization Address City/[facility]/ZIP Code Phon e Number [facility] [place] [address] PTT (APTT) (05/29/2021 6:30 AM ORTHOPAEDIC TECHNOLOGIST) athologist Signature APTT 34.3 25.0 - 37.0 [facility] sec Specimen Anatomical Collection Method Collection Time Receive d Time (Source) Location / / Volume Laterality Blood 05/29/2021 6:30 AM 7:35 ORTHOPAEDIC TECHNOLOGIST AM ORTHOPAEDIC TECHNOLOGIST Binu Young MD LABORATORY Performing Organization Address City/State/ZIP Code Phon e Number [facility] [place] [address] PROTHROMBIN (PT) & INR (05/29/2021 6:30 AM ORTHOPAEDIC TECHNOLOGIST) athologist Signature PT 11.0 9.0 - 12.5 [facility] sec INR 0.9 0.8 - 1.1 [facility] Specimen Anatomical Collection Method Collection Time Receive d Time (Source) Location / / Volume Laterality Blood 05/29/2021 6:30 AM 7:35 ORTHOPAEDIC TECHNOLOGIST AM ORTHOPAEDIC TECHNOLOGIST Binu Young MD LABORATORY Performing Organization Address City/State/ZIP Code Phon e Number [facility] [place] [address] PRECAUTIONARY TUBE (05/29/2021 6:30 AM ORTHOPAEDIC TECHNOLOGIST) Patholo gist Method Time Signature Prec Tube Precautionary [facility] Blood Bank Specimen Received. Specimen Anatomical Collection Method Collection Time Receive d Time (Source) Location / / Volume Laterality Blood 05/29/2021 6:30 AM 7:39 ORTHOPAEDIC TECHNOLOGIST AM ORTHOPAEDIC TECHNOLOGIST Binu Young MD LAB TRANSFUSION SERVICES Performing Organization Address City/[facility]/ZIP Code Phon e Number [facility] [place] [address] LACTATE (LACTIC ACID) (05/29/2021 6:30 AM ORTHOPAEDIC TECHNOLOGIST) athologist Signature Lactate 1.6 0.7 - 2.1 [facility] mmol/L Specimen Anatomical Collection Method Collection Time Receive d Time (Source) Location / / Volume Laterality Blood 05/29/2021 6:30 AM 6:47 ORTHOPAEDIC TECHNOLOGIST AM ORTHOPAEDIC TECHNOLOGIST Narrative [facility] - 05/29/2021 6:47 AM ORTHOPAEDIC TECHNOLOGIST Send specimen on ice! Binu Young MD LABORATORY Performing Organization Address City/[facility]/ZIP Code Phon e Number [facility] [place] [address] FIBRINOGEN (05/29/2021 6:30 AM ORTHOPAEDIC TECHNOLOGIST) athologist Signature Fibrinogen 331 200 - 400 [facility] mg/dL Specimen Anatomical Collection Method Collection Time Receive d Time (Source) Location / / Volume Laterality Blood 05/29/2021 6:30 AM 7:35 ORTHOPAEDIC TECHNOLOGIST AM ORTHOPAEDIC TECHNOLOGIST Binu Young MD LABORATORY Performing Organization Address City/State/ZIP Code Phon e Number [facility] [place] [address] (ABNORMAL) ED HEMOGLOBIN TOTAL (ED ONLY) (05/29/2021 6:30 AM ORTHOPAEDIC TECHNOLOGIST) P athologist Signature Hgb 9.4 (L) 11.5 - 15.7 [facility] g/dL Specimen Anatomical Collection Method Collection Time Receive d Time (Source) Location / / Volume Laterality Blood 05/29/2021 6:30 AM 6:46 ORTHOPAEDIC TECHNOLOGIST AM ORTHOPAEDIC TECHNOLOGIST Binu Young MD LABORATORY Performing Organization Address City/[facility]/ZIP Code Phon e Number [facility] [place] [address] (ABNORMAL) ED CHEMISTRY LABS(NA,K,CL,CO2,GLU,CREAT,CA-IONIZED,ANION GAP) (05/29/2021 6:30 AM ORTHOPAEDIC TECHNOLOGIST) Analysis Performed At [facility] Time [facility] Sodium 139 135 - 148 [facility] mEq/L Chloride 104 92 - 108 [facility] mEq/L AnGap 12 8 - 16 [facility] mEq/L Glucose 115 (H) 70 - 100 [facility] mg/dL ICA, Actual 4.66 4.40 - [facility] 5.20 mg/dL ICA, pH 4.57 4.40 - [facility] Corrected 5.20 mg/dL Creatinine 6.98 (H) 0.50 - [facility] 1.00 mg/dL BICARB 22 22 - 26 [facility] mEq/L eGFR, High 6 (L) >=60 [facility] ml/min/1.7 3m2 Comment: Calculated using CKD-EPI equati on eGFR, Low 5 (L) >=60 ml/min/1.73m2 [facility] Comment: Calculated using CKD-EPI equati on Potassium 5.5 (H) 3.5 - 5.3 mEq/L [facility] Specimen Anatomical Collection Method Collection Time Receive d Time (Source) Location / / Volume Laterality Blood 05/29/2021 6:30 AM 6:46 ORTHOPAEDIC TECHNOLOGIST AM ORTHOPAEDIC TECHNOLOGIST Binu Young MD LABORATORY Performing Organization Address City/State/ZIP Code Phon e Number [facility] [place] [address] (ABNORMAL) CBC WITH PLTS/AUTO DIFF (05/29/2021 6:30 AM ORTHOPAEDIC TECHNOLOGIST) Analysis Performed At [facility] Time [facility] WBC 8.49 4.00 - [facility] 10.00 k/cmm RBC 3.18 (L) 3.90 - [facility] 5.20 m/cmm Hgb 9.2 (L) 11.5 - [facility] 15.7 g/dL Hematocrit 27.9 (L) 34.0 - [facility] 45.0 % MCV 87.7 80.0 - [facility] 100.0 fL MCH 28.9 25.0 - [facility] 32.0 pg MCHC 33.0 31.0 - [facility] 36.0 g/dL RDW 17.9 (H) 11.5 - [facility] 14.5 % Plt 235 150 - 400 [facility] k/cmm MPV 10.3 6.5 - 12.5 [facility] fL NRBC 0.0 0.0 - 0.0 [facility] % Automated Abs 7.07 (H) 1.70 - [facility] Neutrophil 6.50 k/cmm Comment: Preliminary ANC, final result t o follow. Abs Immature Granulocyte 0.06 0.00 - 0.09 k/cmm [facility] Comment: The Immature Granulocyte Absolu te count contains metamyelocytes and myelocytes. Abs Neutrophil 7.07 (H) 1.70 - 6.50 k/cmm [facility] B Abs Lymphocyte 0.80 0.80 - 4.00 k/cmm [facility] B Abs Monocyte 0.46 0.20 - 1.00 k/cmm [facility] Abs Eosinophil 0.04 0.00 - 0.60 k/cmm [facility] B Abs Basophil 0.06 0.00 - 0.20 k/cmm [facility] Specimen Anatomical Collection Method Collection Time Receive d Time (Source) Location / / Volume Laterality Blood 05/29/2021 6:30 AM 7:36 ORTHOPAEDIC TECHNOLOGIST AM ORTHOPAEDIC TECHNOLOGIST Binu Young MD LABORATORY Performing Organization Address City/State/ZIP Code Phon e Number [facility] [place] [address] (ABNORMAL) BLOOD GASES (05/29/2021 6:30 AM ORTHOPAEDIC TECHNOLOGIST) P athologist Signature PH Edwin 7.36 7.32 - 7.42 [facility] PCO2 Edwin 40 (L) 41 - 51 [facility] mmHG PO2 Edwin 33 25 - 40 [facility] mmHG Bicarb Edwin 22 (L) 24 - 28 [facility] mEq/L O2 Sat Edwin 48 % [facility] Base Exc Edwin -3.2 -10.0 - 2.0 [facility] mEq/L Specimen Anatomical Collection Method Collection Time Receive d Time (Source) Location / / Volume Laterality Blood Venous 05/29/2021 6:30 AM 6:47 ORTHOPAEDIC TECHNOLOGIST AM ORTHOPAEDIC TECHNOLOGIST Binu Young MD LABORATORY Performing Organization Address City/State/ZIP Code Phon e Number [facility] [place] [address] [address] [facility] ED US CRITICAL CARE (05/29/2021 6:17 AM ORTHOPAEDIC TECHNOLOGIST) Anatomical Region Laterality Modality Ultrasound Specimen (Source) Anatomical Location Collection Method / Collectio n Time Received Time / Laterality Volume Narrative 05/29/2021 8:00 AM ORTHOPAEDIC TECHNOLOGIST ED Cardiac Ultrasound Body Areas Imaged: Heart, Chest Wall/Elizabeth gs and Inferior Vena Cava Indications:Shortness of Breath/Hypoxia Window: Subxiphoid, Parasternal Short Ax is, Parasternal Long [place], IVC and Bilateral Lungs Findings: The left ventricular ejection fraction a ppears: Reduced Reduced estimated LVEF by E-Point septal separation (EPSS 7-13mm) No pericardial effusion identified. RV Dilation present/absent: No significa nt right ventricular dilation appreciated Lung sliding present bilaterally, No ple ural effusion, B-lines: Diffuse The IVC diameter appears Mid-range with less than 50% variation with respiration Impression: The left ventricular ejection fraction a ppears: Reduced No pericardial effusion identified. RV Dilation present/absent: No significa nt right ventricular dilation appreciated B-Line predominance consistent with pulm onary edema Findings suggest euvolemia Binu Yuong MD, 05/29/2021 7:58 AM Binu Young MD ED ULT documented in this encounter Visit Diagnoses Diagnosis SOB (shortness of breath) - Primary Shortness of breath documented in this encounter Admitting Diagnoses Diagnosis SOB (shortness of breath) Shortness of breath documented in this encounter Administered Medications Inactive Administered Medications - up to 3 most recent administrations Medication Order MAR Action Action Date Dose Rate Site azithromycin (ZITHROMAX) 500 New Bag 05/29/2021 7:02 AM ORTHOPAEDIC TECHNOLOGIST 500 mg 250 mL/hr mg in NaCl 0.9% 250 mL IVPB 500 mg, Indication (Select One): Infection - Suspected, SITE (Select all that apply): Lower Respiratory, Cultures Ordered? No, Intravenous, ONE TIME, 1 dose, On Sat05/29/21 at 0640 azithromycin (ZITHROMAX) 500 mg in New Bag 05/30/2021 9:46 AM ORTHOPAEDIC TECHNOLOGIST 500 mg 250 mL/hr NaCl 0.9% 250 mL IVPB 500 mg, Indication (Select One): Infection - Suspected, SITE (Select all that apply): Lower Respiratory, Cultures Ordered? No, Intravenous, Q24H, First dose on Sat05/30/21 at 0800, Until Discontinued calcium acetate (PHOSLO) capsule 667 mg Given 05/30/2021 12:31 PM ORTHOPAEDIC TECHNOLOGIST 667 mg 667 mg, Oral, TID WM, First dose on Sat05/30/21 at 0800, Until Discontinued Given 05/30/2021 8:39 AM ORTHOPAEDIC TECHNOLOGIST 667 mg calcium gluconate 10% IV 3 g Given 05/29/2021 10:55 AM ORTHOPAEDIC TECHNOLOGIST 3 g 3 g, IV Push, ONE TIME, 1 dose, On Sat05/29/21 at 1020 cefTRIAXone (ROCEPHIN) 2 g in NaCl New Bag 05/29/2021 6:37 AM ORTHOPAEDIC TECHNOLOGIST 2 g 200 mL/hr 0.9% 100 mL IVPB 2 g, Indication (Select One): Infection - Suspected, SITE (Select all that apply): Lower Respiratory, Cultures Ordered? No, Intravenous, ONE TIME, 1 dose, On Sat05/29/21 at 0640 cefTRIAXone (ROCEPHIN) 2 g in NaCl New Bag 05/30/2021 9:07 AM ORTHOPAEDIC TECHNOLOGIST 2 g 200 mL/hr 0.9% 100 mL IVPB 2 g, Indication (Select One): Infection - Suspected, SITE (Select all that apply): Lower Respiratory, Cultures Ordered? No, Intravenous, Q24H, First dose on Sat05/30/21 at 0800, Until Discontinued DE MED REC REVIEW BY PHARMACY Discharge Date: 05/30/2021, Discharge Lo cation: Home, Anticipated Discharge Time: 10 am - 2 pm, Discharge Medication Orders: DC Med Orde rs Final, Does not apply, PROTOCOL, Starting on Sat05/30/21 at 1047, Until Sat05/30/21 at 1612 furosemide (LASIX) tablet 80 mg Given 05/30/2021 8:39 AM ORTHOPAEDIC TECHNOLOGIST 80 mg 80 mg, Oral, DAILY, First dose on Sat05/30/21 at 0800, Until Discontinued lisinopril (PRINIVIL;ZESTRIL) tablet 2.5 mg Given 05/30/2021 8:39 AM ORTHOPAEDIC TECHNOLOGIST 2.5 mg 2.5 mg, Oral, DAILY, First dose on Sat05/29/21 at 1805, Until Discontinued Given 05/29/2021 6:56 PM ORTHOPAEDIC TECHNOLOGIST 2.5 mg metoprolol (TOPROL XL) XL half tablet 12.5 Given 05/30/2021 8:39 AM ORTHOPAEDIC TECHNOLOGIST 12.5 mg mg 12.5 mg, Oral, DAILY, First dose on Sat05/29/21 at 1805, Until Discontinued Given 05/29/2021 6:56 PM ORTHOPAEDIC TECHNOLOGIST 12.5 mg nitroGLYCERIN 50 mg in dextrose New Bag 05/29/2021 6:48 AM ORTHOPAEDIC TECHNOLOGIST 20 mcg/min 6 mL/hr 5% 250 mL infusion 2-200 mcg/min (0.6-60 mL/hr), Intravenous, CONTINUOUS, Indications: Hypertension, Starting on Sat05/29/21 at 0650, Until Sat05/30/21 at 0625 ondansetron (ZOFRAN) 4 mg/2 mL injection 4 mg Given 05/29/2021 11:31 AM ORTHOPAEDIC TECHNOLOGIST 4 mg 4 mg, IV Push, ONE TIME, 1 dose, On Sat05/29/21 at 1125 sodium zirconium cyclosilicate (LOKELMA) packet Given 05/29/2021 9:45 AM ORTHOPAEDIC TECHNOLOGIST 10 g 10 g 10 g, Oral, ONE TIME, 1 dose, On Sat05/29/21 at 0820 documented in this encounter Active and Recently Administered Medications Times are shown in ORTHOPAEDIC TECHNOLOGIST. Scheduled Medication Order 05/28/2021 05/29/2021 05/30/2021 azithromycin (ZITHROMAX) 500 mg in NaCl 0.9% 250 mL IVPB (CO MPLETED) 0702 (New Bag - Provider: Binu James V RN)0929 (Infusion completed - Provider: Janessa Dennis RN) 500 mg, Indication (Select One): Infecti on - Suspected, SITE (Select all that apply): Lower Respiratory, Cultures Ordered? No, Intravenous, ONE TIME, 1 dose, On Sat05/29/21 at 0640 azithromycin (ZITHROMAX) 500 mg in NaCl 0.9% 250 mL IVPB 0946 (New Bag - Provider: Chris Ball RN)1121 (Infusion completed - Provider: Chris Ball RN) 500 mg, Indication (Select One): Infecti on - Suspected, SITE (Select all that apply): Lower Respiratory, Cultures Ordered? No, Intravenous, Q24H, First dose on Sat05/30/21 at 0800, Until Discontinued calcium acetate (PHOSLO) capsule 667 mg 0839 (Given - Provider: Chris Ball RN)1231 (Given - Provider: Chris Ball RN) 667 mg, Oral, TID WM, First dose on Sat05/30/21 at 0800, Until Discontinued calcium gluconate 10% IV 3 g (COMPLETED) 1055 (Given - Provider: Janessa Dennis RN) 3 g, IV Push, ONE TIME, 1 dose, On Sat05/29/21 at 1020 cefTRIAXone (ROCEPHIN) 2 g in NaCl 0.9% 100 mL IVPB (COMPLET ED) 0637 (New Bag - Provider: Binu Nunes RN)0704 (Infusion completed - Provider: Binu Nunes RN) 2 g, Indication (Select One): Infection - Suspected, SITE (Select all that apply): Lower Respiratory, Cultures Ordered? No, Intravenous, ONE TIME, 1 dose, On Sat05/29/21 at 0640 cefTRIAXone (ROCEPHIN) 2 g in NaCl 0.9% 100 mL IVPB 0907 (New Bag - Provider: Chris Ball RN)0940 (Infusion completed - Provider: Chris Ball RN) 2 g, Indication (Select One): Infection - Suspected, SITE (Select all that apply): Lower Respiratory, Cultures Ordered? No, Intravenous, Q24H, First dose on Sat05/30/21 at 0800, Until Discontinued DC MED REC REVIEW BY PHARMACY(Linked Group 1) Discharge Date: 05/30/2021, Discharge Lo cation: Home, Anticipated Discharge Time: 10 am - 2 pm, Discharge Medication Orders: DC Med Orders Final, Does not apply, PROTOCOL, Starting on Sat05/30/21 at 1047, Until Sat05/30/21 at 1612 furosemide (LASIX) tablet 80 mg 0839 (Given - Provider: Chris Ball RN) 80 mg, Oral, DAILY, First dose on Sat05/30/21 at 0800, Until Di scontinued heparin 12767 UNITS/mL injection 2,500 UNITS 1834 (Not Given (removes Due time) - Provider: Jeannette Peterson RN - Reason: Patient refused) 0510 (Not Given (removes Due time) - Provider: Aaliyah Davis RN - Reason: Patient refused) 2,500 UNITS, Subcutaneous, Q 8H, First d ose on Sat05/29/21 at 1805, Until Discontinued lisinopril (PRINIVIL;ZESTRIL) tablet 2.5 mg 1856 (Given - Provider: Jeannette Peterson RN) 0839 (Given - Provider: Adán Fernandez) 2.5 mg, Oral, DAILY, First dose on Sat05/29/21 at 1805, Until D iscontinued metoprolol (TOPROL XL) XL half tablet 12.5 mg 1856 (Given - Provider: Jeannette Peterson RN) 0839 (Given - Provider: Adán Fernandez) 12.5 mg, Oral, DAILY, First dose on Sat05/29/21 at 1805, Until Discontinued nephrocaps (TRIPHRO) capsule 1 mg 1 mg (1 capsule), Oral, DAILY AFTERNOON, First dose on Sat05/30/21 at 1700, Until Discontinued ondansetron (ZOFRAN) 4 mg/2 mL injection 4 mg (COMPLETED) 1131 (Given - Provider: Janessa Dennis RN) 4 mg, IV Push, ONE TIME, 1 dose, On Sat05/29/21 at 1125 sodium zirconium cyclosilicate (LOKELMA) packet 10 g (COMPLE STAS) 0945 (Given - Provider: Janessa Dennis, WIN) 10 g, Oral, ONE TIME, 1 dose, On Sat05/29/21 at 0820 Continuous Medication Order 05/28/2021 05/29/2021 05/30/2021 nitroGLYCERIN 50 mg in dextrose 5% 250 mL infusion (CANCELED ) 0648 (New Bag - Provider: Binu James V, RN)0758 (Stopped - Provider: Diana Moise, WIN) 2-200 mcg/min (0.6-60 mL/hr), Intravenou s, CONTINUOUS, Indications: Hypertension, Starting on Sat05/29/21 at 0650, Until Sat05/30/21 at 0625 Linked Groups Order Group 1: DC MED REC REVIEW BY PHARMACYJump to med Discharge Date: 05/30/2021
Discharge Location: Home
Anticipated Discharge Time: 10 am - 2 pm
Discharge Medication Orders: DC Med Orders Final
Does not apply, PROTOCOL, Starting on Sat05/30/21 at 1047, Until Sat05/30/21 at 1612 And Discharge Med Rec Final Review by Pharmacy (COMPLETED) Routine, Order to be placed by provider after medications have been entered for discharge and are ready for review by Pharmacist. This order can be placed multiple times if changes or additions have bee n made to medications for discharge. Cho ose the Preliminary DC Med Rec review when placing orders prior to the day of discharge. Choose Final DC Med Rec when all medication changes have been entered. If DC Med Rec needed now, please page the Pharmacist covering the patient to inform them.
Discharge Date: 05/30/2021
Discharge Location: Home
Anticipated Discharge Time: 10 am - 2 pm documented in this encounter
--- OUTSIDE RECORDS SUMMARY | 2022-03-08 08:39 | XMS_ITS | Encounter Summary ---
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 documented as of this encounter Plan of Treatment Not on filedocumented as of this encounter Visit Diagnoses Not on filedocumented in this encounter
--- OUTSIDE RECORDS SUMMARY | 2022-03-08 08:40 | XMS_ITS | Encounter Summary ---
:1940 Author Organization [facility] Address [address] [place] [address] Care Team Providers Name Role Phone Fabian Arias MD Primary Care Provider Encounter Details Date Type Department Care Team Description 11/29/2021 [facility] f Landon Zarate MD [address] [place] [address] [place], [place] [phone] (Wo rk) Social History Tobacco Use Types Packs/Day Years Used Date Smoking Tobacco: Smoker, Current Cigarettes Started: 07/01/1976 Status Unknown Sex Assigned at Date Recorded Not on file documented as of this encounter Plan of Treatment Not on filedocumented as of this encounter Procedures Procedure Name Priority Date/Time Associated Diagnosis Comme nts HD KINETICS Routine 11/29/2021 Results for thi s procedure are i n the results section . POST CHEMISTRY Routine 11/29/2021 Results for t his procedure are i n the results section . IMMUNO CHEMISTRY Routine 11/29/2021 Results for this procedure are i n the results section . HEMATOLOGY Routine 11/29/2021 Results for thi s procedure are i n the results section . CHEMISTRY Routine 11/29/2021 Results for thi s procedure are i n the results section . SPECTRA [facility] RESULTS Routine 11/29/2021 Resul ts for this procedure are i n the results section . documented in this encounter Results Spectra [facility] Results (11/29/2021) P athologist Signature spKt/V Gotch 1.97 [facility] eKt/V 1.65 [facility] (Juanito) nPCR_HD 1.12 [facility] PCR 45.82 [facility] eNPCR 1.04 [facility] spKt/V 1.93 [facility] (Daugirdas II) eKt/V Gotch 1.66 [facility] eKdrt/V 1.66 [facility] Specimen (Source) Anatomical Location Collection Method / Collectio n Time Received Time / Laterality Volume 11/29/2021 11/29/2021 [facility] Ordering Provider LAB BLOOD ORDERABLES Performing Organization Address City/State/ZIP Code Phon e Number [facility] HD KINETICS (11/29/2021) athologist Signature % Urea 80 65 - 80 % [facility]PS [facility]PECTRA Reduction [facility] Specimen (Source) Anatomical Collection Method Collection Time Re ceived Time Location / / Volume Laterality 11/29/2021 11/30/2021 10:2 2 PM CDT Resulting Agency Comment Specimen source: Plasma Landon Calvert MD LAB BLOOD ORDERABLES Performing Organization Address City/[facility]/ZIP Code Phon e Number [facility]PS [facility]PECTRA [facility] POST CHEMISTRY (11/29/2021) athologist Signature BUN Post 11 6 - 19 [facility] Dialysis mg/dL [facility] Specimen (Source) Anatomical Collection Method Collection Time Re ceived Time Location / / Volume Laterality 11/29/2021 11/30/2021 10:2 2 PM CDT Narrative APS SPECTRA [facility] - 12/01/2021 Unless otherwise specified, test(s) performed at: [facility], [address] [place] [address] CLASSIFIER OPERATOR: Carl Paula M.D. For any questions, please call customer service at FREQUENCY:MONTHLY Resulting Agency Comment Specimen source: Plasma Landon Calvert MD LAB BLOOD ORDERABLES Performing Organization Address City/[facility]/ZIP Code Phon e Number [facility] IMMUNO CHEMISTRY (11/29/2021) athologist Signature Hep B Surface Negative Negative [facility] Ag [facility] Hepatitis B <10 mIU/mL [facility] Surface Ab [facility] Comment: Reference Range: <10 mIU/mL ? Non-Immune >=10 mIU/mL ?Immune The magnitude of the measured result abo ve 10 mIU/mL is not indicative of the total amount of antibody present. Verified by repeat analysis. Custom Exception Specimen (Source) Anatomical Collection Method Collection Time Re ceived Time Location / / Volume Laterality 11/29/2021 11/30/2021 7:00 PM CDT Narrative APS SPECTRA [facility] - 12/02/2021 Unless otherwise specified, test(s) performed at: [facility], [address] [place] [address] CLASSIFIER OPERATOR: Carl Paula M.D. For any questions, please call customer service at FREQUENCY:MONTHLY Resulting Agency Comment Specimen source: Serum Landon Calvert MD LAB BLOOD ORDERABLES Performing Organization Address City/State/ZIP Code Phon e Number APS SPECTRA [facility] (ABNORMAL) Spectrae Chemistry (11/29/2021) [employer] gist Method Time Signature BUN 56 (H) 6 - 19 [facility] mg/dL [facility] Creatinine 9.33 (H) 0.60 - [facility]PS [facility] 1.30 mg/dL [facility] BUN/Creatinine 6.0 (L) 10.0 - [facility] Ratio 20.0 [facility] Sodium 142 136 - 145 [facility] mEq/L [facility] Potassium 4.3 3.5 - 5.1 [facility] mEq/L [facility] Chloride 101 96 - 108 [facility] mEq/L [facility] Bicarbonate 23 22 - 29 [facility] (CO2) mEq/L [facility] Calcium 9.1 8.4 - 10.2 [facility] mg/dL [facility] Corrected 9.3 8.4 - 10.2 [facility]RA Calcium mg/dL [facility] Comment: Corrected Calcium is not equivalent to m easured Ionized Calcium. Phosphorus 6.7 (H) 2.6 - 4.5 mg/dL APS SPECTRA [facility] Calcium Phosphorus Product 61 (H) 0 - 54 APS SPECTRA [facility] Calcium Phosporus Product, Cor 62 (H) 0 - 54 [facility]PS S[facility]RA [facility] Total Protein 6.6 6.0 - 8.5 g/dL APS SPECTRA [facility] Albumin 3.8 3.5 - 5.2 g/dL [facility]PS [facility] Globulin, Total 2.8 2.0 - 4.0 g/dL APS SPECT RA [facility] A/G Ratio 1.4 1.0 - 2.0 APS SPECTRA [facility] Iron 21 (L) 30 - 160 mcg/dL APS SPECTRA [facility] UIBC 321 155 - 355 mcg/dL APS SPECTRA [facility] TIBC 342 185 - 515 mcg/dL APS SPECTRA [facility] Iron Saturation (TSat) 6 (L) 20 - 55 % APS SPE CTRA [facility] Specimen (Source) Anatomical Collection Method Collection Time Re ceived Time Location / / Volume Laterality 11/29/2021 11/30/2021 7:00 PM CDT Narrative APS SPECTRA [facility] - 12/01/2021 Unless otherwise specified, test(s) performed at: [facility], [address] [place] [id number] CLASSIFIER OPERATOR: Carl Paula M.D. For any questions, please call customer service at FREQUENCY:MONTHLY Resulting Agency Comment Specimen source: Serum Landon Calvert MD LAB BLOOD ORDERABLES Performing Organization Address City/State/ZIP Code Phon e Number APS SPECTRA [facility] (ABNORMAL) HEMATOLOGY (11/29/2021) Analysis Performed At Patho logist Time Signature WBC 5.92 4.80 - APS SPECTRA 10.80 [facility] 1000/mcL RBC 4.08 (L) 4.20 - APS SPECTRA 5.40 [facility] mill/mcL Hemoglobin 9.8 (L) 12.0 - APS [facility]PECTRA 16.0 g/dL [facility] Hemoglobin x 3 29.4 (L) 36.0 - [facility]PS [facility]RA 48.0 % [facility] Hematocrit 31.1 (L) 37.0 - APS [facility]RA 47.0 % [facility] MCV 76 (L) 80 - 100 APS SPECTRA fl [facility] MCH 24.1 (L) 27.0 - [facility] 31.0 pg [facility] MCHC 31.6 30.0 - [facility] 36.0 g/dL [facility] RDW 18.2 (H) 11.5 - APS [facility]RA 14.5 % [facility] Platelets 358 130 - 400 APS [facility]RA 1000/mcL [facility] Specimen (Source) Anatomical Collection Method Collection Time Re ceived Time Location / / Volume Laterality 11/29/2021 11/30/2021 8:39 PM CDT Narrative APS SPECTRA [facility] - 12/01/2021 Unless otherwise specified, test(s) performed at: [facility], [address] [place] [address] CLASSIFIER OPERATOR: Carl Paula M.D. 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
--- OUTSIDE RECORDS SUMMARY | 2022-03-08 08:40 | XMS_ITS | Encounter Summary ---
:1940 Author Organization [facility] Address [address] [place] [address] Care Team Providers Name Role Phone Fabian Arias MD Primary Care Provider Encounter Details Date Type Department Care Team Description 11/06/2021 Orders Only [facility] f Landon Zarate MD [phone] [place] [address] [place], [place] [phone] (Wo rk) Social History Tobacco Use Types Packs/Day Years Used Date Smoking Tobacco: Smoker, Current Cigarettes Started: 07/01/1976 Status Unknown Sex Assigned at Date Recorded Not on file documented as of this encounter Plan of Treatment Not on filedocumented as of this encounter Procedures Procedure Name Priority Date/Time Associated Diagnosis Comme nts CHEMISTRY Routine 11/06/2021 Results for thi s procedure are in the resu lts section. documented in this encounter Results (ABNORMAL) [facility]rae Chemistry (11/06/2021) P athologist Signature Calcium 10.3 (H) 8.4 - 10.2 APS SPECTRA mg/dL [facility] Comment: Custom Exception Specimen (Source) Anatomical Collection Method Collection Time Re ceived Time Location / / Volume Laterality 11/06/2021 11/07/2021 6:02 PM CDT Narrative APS SPECTRA [facility] - 11/07/2021 Unless otherwise specified, test(s) performed at: [facility], [address] [place] [address] CORN CUTTER OPERATOR: Carl Paula M.D. For any questions, please call customer service at FREQUENCY:OTHER Resulting Agency Comment Specimen source: Serum Landon Calvert MD LAB BLOOD ORDERABLES Performing Organization Address City/State/ZIP Code Phon e Number APS SPECTRA [facility] documented in this encounter Visit Diagnoses Not on filedocumented in this encounter Care Teams Electric Wheelchair Repairer Relationship Specialty Start Date End Date Fabian Arias MD PCP - General Family Medicine 09/04/[address] [place] [address] documented as of this encounter
--- OUTSIDE RECORDS SUMMARY | 2022-03-08 08:40 | XMS_ITS | Encounter Summary ---
:1940 Author Organization [facility] Address [address] [place] [address] Care Team Providers Name Role Phone Fabian Arias MD Primary Care Provider Encounter Details Date Type Department Care Team Description 02/28/2022 Orders Only [facility] O f Landon Zarate MD [address] [place] [address] [place], [place] [phone] (Wo rk) Social History Tobacco Use Types Packs/Day Years Used Date Smoking Tobacco: Smoker, Current Cigarettes Started: 07/01/1976 Status Unknown Sex Assigned at Date Recorded Not on file documented as of this encounter Plan of Treatment Not on filedocumented as of this encounter Procedures Procedure Name Priority Date/Time Associated Diagnosis Comme nts HEMATOLOGY Routine 02/28/2022 Results for thi s procedure are in the resu lts section. documented in this encounter Results (ABNORMAL) HEMATOLOGY (02/28/2022) Analysis Performed At Patho logist Time Signature Hemoglobin 11.1 (L) 12.0 - APS SPECTRA 16.0 g/dL [facility] Hemoglobin x 3 33.3 (L) 36.0 - APS [facility]PECTRA 48.0 % [facility] Specimen (Source) Anatomical Collection Method Collection Time Re ceived Time Location / / Volume Laterality 02/28/2022 03/01/2022 4:01 AM CDT Narrative APS SPECTRA [facility] - 03/01/2022 Unless otherwise specified, test(s) performed at: [facility], [address] [place] [address] [address] FABRICATION WELDER: Vicente Flores M.D., Ph.D For any questions, please call customer service at FREQUENCY:OTHER Resulting Agency Comment Specimen source: Blood Landon Calvert MD LAB BLOOD ORDERABLES Performing Organization Address City/State/ZIP Code Phon e Number APS SPECTRA [facility] documented in this encounter Visit Diagnoses Not on filedocumented in this encounter Care Teams Recruiting Consultant Relationship Specialty Start Date End Date Fabian Arias MD PCP - General Family Medicine 09/04/[address] [place] [address] documented as of this encounter
--- OUTSIDE RECORDS SUMMARY | 2022-03-08 08:40 | XMS_ITS | Encounter Summary ---
:1940 Author Organization [facility] Address [address] [place] [address] Care Team Providers Name Role Phone Fabian Arias MD Primary Care Provider Encounter Details Date Type Department Care Team Description 11/08/2021 Orders Only [facility] O f Landon Zarate MD [phone] [place] [address] [place], [place] [phone] (Wo rk) Social History Tobacco Use Types Packs/Day Years Used Date Smoking Tobacco: Smoker, Current Cigarettes Started: 07/01/1976 Status Unknown Sex Assigned at Date Recorded Not on file documented as of this encounter Plan of Treatment Not on filedocumented as of this encounter Procedures Procedure Name Priority Date/Time Associated Diagnosis Comme nts HEMATOLOGY Routine 11/08/2021 Results for thi s procedure are in the resu lts section. CHEMISTRY Routine 11/08/2021 Results for thi s procedure are in the resu lts section. CHEMISTRY Routine 11/08/2021 Results for thi s procedure are in the resu lts section. documented in this encounter Results (ABNORMAL) [facility] Chemistry (11/08/2021) P athologist Signature Calcium 10.3 (H) 8.4 - 10.2 APS SPECTRA mg/dL [facility] Comment: Custom Exception Specimen (Source) Anatomical Collection Method Collection Time Re ceived Time Location / / Volume Laterality 11/08/2021 11/09/2021 7:23 PM CDT Narrative APS SPECTRA [facility] - 11/10/2021 Unless otherwise specified, test(s) performed at: [facility], [address] [place] [id number] DRY KILN OPERATOR HELPER: Carl Paula M.D. For any questions, please call customer service at FREQUENCY:OTHER Resulting Agency Comment Specimen source: Serum Landon Calvert MD LAB BLOOD ORDERABLES Performing Organization Address [facility] Phon e Number APS SPECTRA [facility] (ABNORMAL) HEMATOLOGY (11/08/2021) Analysis Performed At Patho logist Time Signature Hemoglobin 9.6 (L) 12.0 - APS SPECTRA 16.0 g/dL [facility] Hemoglobin x 3 28.8 (L) 36.0 - APS SPECTRA 48.0 % [facility] Specimen (Source) Anatomical Collection Method Collection Time Re ceived Time Location / / Volume Laterality 11/08/2021 11/09/2021 11:5 1 AM CDT Narrative APS SPECTRA [facility] - 11/09/2021 Unless otherwise specified, test(s) performed at: [facility], [address] [place] [id number] DRY KILN OPERATOR HELPER: Carl Paula M.D. For any questions, please call customer service at FREQUENCY:OTHER Resulting Agency Comment Specimen source: Blood Landon Calvert MD LAB BLOOD ORDERABLES Performing Organization Address [facility] Phon e Number APS SPECTRA [facility] (ABNORMAL) Spect[facility] Chemistry (11/08/2021) P athologist Signature PTH 138 (H) 16 - 80 APS SPECTRA pg/mL [facility] Specimen (Source) Anatomical Collection Method Collection Time Re ceived Time Location / / Volume Laterality 11/08/2021 11/09/2021 11:3 1 AM CDT Narrative APS SPECTRA [facility] - 11/09/2021 Unless otherwise specified, test(s) performed at: [facility], [address] [place] [address] DRY KILN OPERATOR HELPER: Carl Paula M.D. For any questions, please call customer service at FREQUENCY:OTHER Resulting Agency Comment Specimen source: Plasma Landon Calvert MD LAB BLOOD ORDERABLES Performing Organization Address City/[facility] Phon e Number APS SPECTRA [facility] documented in this encounter Visit Diagnoses Not on filedocumented in this encounter Care Teams Jowl Trimmer Relationship Specialty Start Date End Date Fabian Arias MD PCP - General Family Medicine 09/04/[address] [place] [address] documented as of this encounter
--- OUTSIDE RECORDS SUMMARY | 2022-03-08 08:40 | XMS_ITS | Encounter Summary ---
:1940 Author Organization [facility] Address [address] [place] [address] Care Team Providers Name Role Phone Fabian Arias MD Primary Care Provider Encounter Details Date Type Department Care Team Description 02/21/2022 Treatment [facility] Landon Zarate MD [address] [place] [address] [place], [place] [phone] (Wo rk) Social History Tobacco Use Types Packs/Day Years Used Date Smoking Tobacco: Smoker, Current Cigarettes Started: 07/01/1976 Status Unknown Sex Assigned at Date Recorded Not on file documented as of this encounter Miscellaneous Notes Dialysis Note - Landon Calvert MD - 02/21/2022 11:20 AM CDT Date: Feb 21, 2022 Patient Name: Zamzam Garibay : 1940 Chart #: [id number] Sex: F This patient was personally seen for a basic visit as part of routine weekly dialysis care. A reviewof the dialysis treatment, blood pressure, estimated dry weight and recent lab values was made. These were discussed with the patient and staff as necessary. Treatment Data for 02/21/2022 started at:6:05 AM Dialyzer: 160NRe Optiflux Na: 137 mEq/L Bicarb: 33 mEq/L Dialysate: 3.0 K, 2.5 Ca, 1.0 Mg, 100 Dextrose (G3251) Dialysate/Machine Temp (prescribed): 37 C Dialysate/Machine Temp (actual): 36.4 C BFR (prescribed): 400 BFR (actual): 400 Prescribed time: 03:30 EDW: 49.5 kg Access Type: Active (In Use):CVCatheter-Tunneled/Chest Pre Dialysis Vitals (for 02/21/2022 6:00 AM ) Pre BP (sit): 196/96 Pre Wt: 57.1 kg Temp: 95.2 F Post Dialysis Vitals (for 02/19/2022 9:39 AM ) Post BP (sit): 156/72 Post Wt: 54.3 kg Current Dialysis Vitals (for 02/21/2022 9:32 AM ) BP (sit): 191/86 AP(-) / TRANSIT MANAGER: 222/130 Pulse: 76 Chairside data as of 02/21/2022 9:32 AM Last 3 Treatments 02/19/2022 02/16/2022 02/14/2022 EDW (kg) 49.5 49.5 49.5 Weight Pre (kg) 56.2 55.4 55.7 Weight Post (kg) 54.3 53.3 53.1 Dialytic Weight Loss (kg) -1.9 -2.1 -2.6 EDW Deviation (kg) 4.8 3.8 3.6 BP Sit Pre 176/76 181/94 178/61 BP Sit Post 156/72 148/85 166/74 UF Rate (mL/kg/hr) 11 12 15 Prescribed BFR 400 400 400 Average Delivered BFR 410 410 410 Prescribed Treatment Time 03:30 03:30 03:30 Actual Treatment Time 03:30 03:29 03:30 Treatment Medication Orders Medication Sig Start Date End Date Doxercalciferol (Hectorol) 3 mcg IVP Every Treatment 01/10/2022 01/09/2023 Heparin Sodium (Porcine) 1,000 Units/mL Catheter Lock Arterial 2000 units Arterial Red Port Every Treatment 04/05/2021 04/04/2022 Heparin Sodium (Porcine) 1,000 Units/mL Catheter Lock Venous 2100 units Venous Blue Port Every Treatment 09/01/2021 08/31/2022 Heparin Sodium (Porcine) 1,000 Units/mL Systemic 4000 units IVP Every Treatment 07/05/2021 07/04/2022 Heparin Sodium (Porcine) 1,000 Units/mL Systemic 2000 units IVP Every Treatment 07/05/2021 07/04/2022 MILKER MACHINE: Landon Calvert MD LOCATION: [place] [phone] SCHEDULE: -- 2nd Shift ACCESS: EDW: kg. DIALYZER: HD DURATION: NEEDLE SIZE: ANTICOAG: BATH: QB: ml/min QD: ml/min Subjective Tolerating dialysis well. 02/21: She says she feels fantastic and has no concerns at all today. BP remains elevated. She is 7 Kg above dry weight. She missed yet another UF run we had scheduled and she had confirmed she would attend. She thinks some of it is true tissue weight gain as she has no edema or SOB. Graft placement being re-scheduled. 02/07: She was scheduled for extra Hd treatment last for volume and also to prepare for access placement on Saturday of last week but she did not show up despite saying she would go and her son being notified and confirming. Then she went for access placement on Friday 02/02 at [facility] and had hyperkalemia and surgery cancelled and she dialyzed in the hospital instead. She had improved gain <1L today and will get close to EDW but not to dry weight. Her BP is a little better with this gain and on HD today looks excellent. She has no symptoms and feels well today. 01/24: She missed extra treatment on Sat at [facility]. Still above EDW. Trying to pull 2.6L today, traditionally has had issues with low BP with UF >2.3L but her BP is >200 systolic starting. Increased lisinopril last time, will increase again today. AVF/AVG surgery scheduled next week at [facility]. She feels well and has no dyspnea or orthopnea. 01/10/22: Her BP has been markedly elevated, persistently over dry weight and now 3+ Kg above dry weight post-Tx on Saturday. She does not lay flat due to SOB but this is chronic, denies dyspnea or other symptoms at this time. 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 She does feel that her upper legs have extra fluid, are bigger than usual. She is eating a lot of toast with salted butter. 12/27/21: It [birth year] birthday today! She says she feels wonderful and has no problems at all. Fluid gains overall have been better. She is hypertensive, has been taking low dose metoprolol and lisinopril after treatment given hypotension with treatments previously but now too hypertensive at start of runs and not having any low BP's during treatment. She denies any SOB or orthopnea at [facility]. 12/06/21: She says she feels well. Her access is not working well, with only one needle it infiltratedand clots being pulled from it and it feels deep with collaterals. She is also more hypertensive, was >3 Kg above her EDW after treatment on 12/04 and if we attempt to UF >2.3L or so she gets sweaty and near syncope so she doesn't tolerate aggressive UF well. She denies any chest pain or pressure or any SOB or orthopnea at home. 11/22: Doing well, but fluid gains still high at times. She is getting out more, seeing her daughter and grandchild up in the [facility]. No symptoms of fluid overload, denies dyspnea or orthopnea. 11/01/21: She feels well with no new symptoms on dialysis. Can only tolerate about 2L fluid removal typically, sometimes has higher IDWG's. She continues to have acid reflux, feels it comes up at night and causes coughing fits - saw PCP yesterday, being sent to specialist with visit scheduled this month. 10/25/21: She feels well. Had been drinking some Coke, discussed high phos and she has stopped. BP has been a little high, comes down with UF, fluid gains variable. Got different GERD med from PCP and this is working better, symptoms improved. Unclear plan with access. 10/11/21: Tolerating dialysis. Still has catheter, needs follow-up with vascular. Labs reviewed, stable. 09/20/21: She is doing well, Fluid gains improved, no SOB or edema. She has access appt on 10/03 at [facility]. No concerns today. 09/06/21: She is 7 Kg above dry weight today. She has not been lower than 48 Kg recently. She has gained some weight, eating better she reports. She denies SOB. Her BP is elevated with more fluid on board. No edema. Access appt and will need new one, not developing and veins to small proximally. She says she has COVID booster scheduled at her PCP clinic. 08/16/21: She is gaining too much fluid, had a bigger gain over weekend with superbowl and she admitsshe went overboard. She has not been at dry weight whole month. She has no edema and says breathing is perfect but she has been hospitalized for fluid overload as well previously. We discussed this in detail today - she brushes off my concerns often, but I told her we need to get this under control or she is likely to have pulmonary edema again given her heart failure. Also discussed phos being very high this month, compliance with binders and renal diet. 08/02/21: She came in today with dressing off her catheter. It appeared clean, she says she woke up and the dressing had just fallen off. Catheter looks like it was pulled out about 1cm but is stable nowwith secure dressing in place and there is no erythema or drainage or other signs of infection. She feels well, has no new symptoms, denies f/c/sob. 07/26/21: Intermittent high fluid gains, improved last few treatments, says she now is drinking VERY little and watching salt in diet as well. She says she feels great and has no symptoms at all and no dyspnea or orthopnea or SOB or edema. 07/05/21: This is Jaz's first day back from [facility] isolation unit. She says she had no symptoms, but her son tested her when she was fatigued and had fever. She reports now having no symptoms at all. She says she feels great. Fluid gains have been better. 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 06/21/21: She feels well today. However, she had hypotensive episode early in treatment today. She did not gain any fluid today and she has not been reaching EDW of 43 Kg. We discussed fluid gains again and importance of <2L gain consistently given CHF and intolerance of UF more than 2L or so. 06/14/21: She was in the hospital overnight last month at [place], SOB resolved with fluid removal. Can't remove more than about 2.5L generally due to symptoms of low BP (gets glossed over and nauseated).Discussed fluid gains in detail, twice this month has had high gain (once was 5L over the weekend on05/31). She otherwise feels excellent beside SOB when she gains too much fluid. 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 05/17: She feels well. Has no complaints today. No SOB or edema. Labs reviewed with her. She declinecovid vaccine booster last week, now says she will take it and I asked she get it through primary since we don't have doses left here and she sees PCP tomorrow. 05/03/21: Zamzam says she is so thankful to be here. She feels excellent and is very happy with her living situation. She has no concerns at all and is doing great on HD. 04/26/21: She was hospitalized briefly at [place] for dyspnea, no pneumonia but rather related to CHF. She saw cardiology in follow-up in clinic, lisinopril and metoprolol and lasix with UF on HD to dry weight recommended. She is not interested in home dialysis, discussed today. 04/12/21: Patient new to me. She followed with typing checker in [facility], did not follow-up,crashed into dialysis in January of 2021. She thinks ESRD is 2/2 HTN. She has CHF. No DM. She has PCAD, has maturing fistula. Has no PCP here yet. Dialysis has been going well. She feels better, can walk now after rehab and good appetite and energy and has no complaints. She got rash from Venofer and this is now being stopped. Advanced Practitioner Subjective: Review of Systems None reported. 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 nl effort Cardiovascular Regular rate. Regular rhythm. No murmur heard. Edema - No leg edema. Access - PCAD c/d/i Medication List Medication Sig Start Date B Complex 1 (with folic acid) (vitamin b complex-folic acid) 0.4 mg tablet Take 1 tablet by mouth once a day 04/12/2021 calcium acetate(phosphat bind) 667 mg capsule Take 3 capsule by mouth three times a day with meals. 2 with snacks 04/12/2021 furosemide 80 mg tablet Take 1 tablet by mouth once a day. TAKE 1 TABLET (80 MG TOTAL) BY MOUTH TWO(2) TIMES DAILY 04/12/2021 lidocaine-prilocaine 2.5-2.5% cream Apply a small amount to affected area as directed. 30 min prior to dialysis lisinopril 5 mg tablet Take 2 tablet by mouth once a day. Take in the evening 01/24/2022 metoprolol succinate tablet extended release 24 hr 12.5 tablet Take tablet at bedtime. 12.5mg daily at night. 04/20/2021 omeprazole 20 mg capsule,delayed release(DR/EC) Take 1 capsule by mouth once a day 04/12/2021 RenaPlex-D (vit b,f-cm-jply-selen-vit d3-e) 800 mcg-12.5 mg-2,000 unit tablet Take 1 tablet by mouthonce a day trazodone 50 mg tablet Take 1 tablet by mouth every night as needed 04/12/2021 Allergy List Allergen Reaction Reaction Severity Onset Date Venofer Skin rash Medications reviewed and no changes were made. BUN mg/dL 80 (01/31/22) 62 (01/03/22) 56 (11/29/21) 64 (11/01/21) 61 (10/04/21) UREA NITROGEN (MG/DL) IN SER/PLAS - POST DIALYSIS mg/dL 13 (01/31/22) 11 (01/03/22) 11 (11/29/21) 11 (11/01/21) 10 (10/04/21) URR % 84 (01/31/22) 82 (01/03/22) 80 (11/29/21) 83 (11/01/21) 84 (10/04/21) spKt/V Gotch 2.32 (01/31/22) 2.09 (01/03/22) 1.97 (11/29/21) 2.12 (11/01/21) 2.21 (10/04/21) eKdrt/V 1.95 (01/31/22) 1.76 (01/03/22) 1.66 (11/29/21) 1.79 (11/01/21) 1.86 (10/04/21) spKt/V (Daugirdas II) 2.2300 (01/31/22) 2.0500 (01/03/22) 1.9300 (11/29/21) 2.1000 (11/01/21) 2.1700 (10/04/21) HEMOGLOBIN (G/DL) IN BLOOD g/dL 11.1 (02/14/22) 12.5 (02/07/22) 11.9 (01/31/22) 11.6 (01/24/22) 12.2 (01/17/22) PLATELETS 1000/mcL 255 (01/31/22) 340 (01/03/22) 358 (11/29/21) 352 (11/01/21) 299 (08/30/21) IRON SATURATION % 6 (11/29/21) 14 (11/01/21) 11 (10/04/21) 16 (08/30/21) 18 (08/02/21) FERRITIN ng/mL 214 (01/03/22) 28 (10/18/21) 39 (10/04/21) 293 (07/05/21) 250 (05/10/21) ALBUMIN (G/DL) g/dL 4.2 (01/31/22) 4.1 (01/03/22) 3.8 (11/29/21) Sodium mEq/L 137 (01/31/22) 141 (01/03/22) 142 (11/29/21) POTASSIUM (MMOL/L) IN SER/PLAS mEq/L 4.6 (01/31/22) 4.7 (01/03/22) 4.3 (11/29/21) BICARBONATE (CO2) mEq/L 25 (01/31/22) 24 (01/03/22) 23 (11/29/21) BUN/CREATININE (MASS RATIO) IN SER/PLAS 9.8 (01/31/22) 7.9 (01/03/22) 6.0 (11/29/21) CALCIUM mg/dL 9.8 (01/31/22) 8.9 (01/03/22) 9.1 (11/29/21) Calcium Phos Product 58 (01/31/22) 68 (01/03/22) 61 (11/29/21) CALCIUM (MG/DL) CORRECTED FOR ALBUMIN IN SER/PLAS mg/dL 9.6 (01/31/22) 8.8 (01/03/22) 9.3 (11/29/21) PHOSPHATE (MG/DL) IN SER/PLAS mg/dL 5.9 (01/31/22) 7.6 (01/03/22) 6.7 (11/29/21) IPTH pg/mL 684 (01/03/22) 138 (11/08/21) 232 (10/04/21) Vascular Access Assessment: Type of access: Catheterand LUE AVF New access surgery planned in December 2021 12/06/21: Attempted using AVF with one 17g needle, infiltrated, now pulling clots. Does not seem usable to me based on this and how it feels. 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 Will need new access placement. She is being set up for vein mapping and surgeon consult Impression and Plan Stable dialysis Phos improving BP remains high, will not change BP meds but work on lower IDWG and getting back to EDW Increase EDW to 52 Kg as she has gained some tissue weight as well Re-schedule AVG placement at [facility] Landon Calvert MD [ Signed And locked electronically On 02/21/2022 at 11:22:41 AM ] Transcribed: Landon Calvert ( 02/21/2022 ) documented in this encounter Plan of Treatment Not on filedocumented as of this encounter Visit Diagnoses Not on filedocumented in this encounter Care Teams Social Services Director Relationship Specialty Start Date End Date Fabian Arias MD PCP - General Family Medicine 09/04/[address] [place] [phone] documented as of this encounter
--- OUTSIDE RECORDS SUMMARY | 2022-03-08 08:40 | XMS_ITS | Encounter Summary ---
:1940 Author Organization [facility] Address [address] [place] [address] Care Team Providers Name Role Phone Fabian Arias MD Primary Care Provider Encounter Details Date Type Department Care Team Description 11/15/2021 Orders Only [facility] Landon Zarate MD [phone] [place] [address] [place], [place] [phone] (Wo rk) Social History Tobacco Use Types Packs/Day Years Used Date Smoking Tobacco: Smoker, Current Cigarettes Started: 07/01/1976 Status Unknown Sex Assigned at Date Recorded Not on file documented as of this encounter Plan of Treatment Not on filedocumented as of this encounter Procedures Procedure Name Priority Date/Time Associated Diagnosis Comme nts HEMATOLOGY Routine 11/15/2021 Results for thi s procedure are in the resu lts section. documented in this encounter Results (ABNORMAL) HEMATOLOGY (11/15/2021) Analysis Performed At Patho logist Time Signature Hemoglobin 9.4 (L) 12.0 - [facility] 16.0 g/dL [facility] Hemoglobin x 3 28.2 (L) 36.0 - [facility] 48.0 % [facility] Specimen (Source) Anatomical Collection Method Collection Time Re ceived Time Location / / Volume Laterality 11/15/2021 11/16/2021 3:47 PM CDT Narrative [facility] - 11/16/2021 Unless otherwise specified, test(s) performed at: [facility], [address] [place] [id number] DEPARTMENT HEAD: Carl Paula M.D. For any questions, please call customer service at FREQUENCY:OTHER Resulting Agency Comment Specimen source: Blood Landon Calvert MD LAB BLOOD ORDERABLES Performing Organization Address City/State/ZIP Code Phon e Number [facility] documented in this encounter Visit Diagnoses Not on filedocumented in this encounter Care Teams Soup Person Relationship Specialty Start Date End Date Fabian Arias MD PCP - General Family Medicine 09/04/[address] [place] [address] documented as of this encounter
--- OUTSIDE RECORDS SUMMARY | 2022-03-08 08:40 | XMS_ITS | Encounter Summary ---
:1940 Author Organization [facility] Address [address] [place] [address] Care Team Providers Name Role Phone Fabian Arias MD Primary Care Provider Encounter Details Date Type Department Care Team Description 11/01/2021 Orders Only [facility] Landon Zarate MD [phone] [place] [address] [place], [place] [phone] (Wo rk) Social History Tobacco Use Types Packs/Day Years Used Date Smoking Tobacco: Smoker, Current Cigarettes Started: 07/01/1976 Status Unknown Sex Assigned at Date Recorded Not on file documented as of this encounter Plan of Treatment Not on filedocumented as of this encounter Procedures Procedure Name Priority Date/Time Associated Diagnosis Comme nts HD KINETICS Routine 11/01/2021 Results for thi s procedure are i n the results section . POST CHEMISTRY Routine 11/01/2021 Results for t his procedure are i n the results section . IMMUNO CHEMISTRY Routine 11/01/2021 Results for this procedure are i n the results section . HEMATOLOGY Routine 11/01/2021 Results for thi s procedure are i n the results section . CHEMISTRY Routine 11/01/2021 Results for thi s procedure are i n the results section . SPECTRA [facility] LAB RESULTS Routine 11/01/2021 Resul ts for this procedure are i n the results section . documented in this encounter Results Spectra [facility] Lab Results (11/01/2021) athologist Signature spKt/V Gotch 2.12 [facility] spKt/V 2.10 [facility] (Daugirdas II) eKt/V Gotch 1.79 [facility] PCR 54.99 [facility] eKt/V 1.80 [facility] ([place]) eKdrt/V 1.79 [facility] nPCR_HD 1.28 [facility] eNPCR 1.20 [facility] Specimen (Source) Anatomical Location Collection Method / Collectio n Time Received Time / Laterality Volume 11/01/2021 11/01/2021 Celia Ordering Provider LAB BLOOD ORDERABLES Performing Organization Address City/State/ZIP Code Phon e Number [facility] (ABNORMAL) HD KINETICS (11/01/2021) athologist Signature % Urea 83 (H) 65 - 80 % APS SPECTRA Reduction [facility] Specimen (Source) Anatomical Collection Method Collection Time Re ceived Time Location / / Volume Laterality 11/01/2021 11/02/2021 11:2 3 PM CDT Resulting Agency Comment Specimen source: Plasma Landon Calvert MD LAB BLOOD ORDERABLES Performing Organization Address City/[facility]/ZIP Code Phon e Number [facility]PS SPECTRA [facility] POST CHEMISTRY (11/01/2021) athologist Signature BUN Post 11 6 - 19 APS S[facility]RA Dialysis mg/dL [facility] Specimen (Source) Anatomical Collection Method Collection Time Re ceived Time Location / / Volume Laterality 11/01/2021 11/02/2021 11:2 2 PM CDT Narrative APS SPECTRA [facility] - 11/03/2021 Unless otherwise specified, test(s) performed at: [facility], [address] [place] [address] CADMIUM LIQUOR MAKER: Carl Paula M.D. For any questions, please call customer service at FREQUENCY:MONTHLY Resulting Agency Comment Specimen source: Plasma Landon Calvert MD LAB BLOOD ORDERABLES Performing Organization Address City/State/ZIP Code Phon e Number [facility]PS SPECTRA [facility] IMMUNO CHEMISTRY (11/01/2021) athologist Signature Hep B Surface Negative Negative [facility] Ag [facility] Hepatitis B 14 mIU/mL [facility] Surface Ab [facility] Comment: The anti-HBs (Hepatitis B surface antibo dy) is greater than or equal to 10 mIU/mL and implies immunity. The kemar ent has either had an antibody response to HBV vaccination, received a transfusion, or has recovered from HBV infection. For post-vaccination antibody testing guidelines for the general public, refer to MMWR Dece 2004/Vol.54 (No. 16); -, and for healthcare workers, refer to MMWR June 19, 2013/Vol.62 (No. 10); 1-18. Reference Range: <10 mIU/mL ? Non-Immune >=10 mIU/mL ?Immune The magnitude of the measured result abo ve 10 mIU/mL is not indicative of the total amount of antibody present. Specimen (Source) Anatomical Collection Method Collection Time Re ceived Time Location / / Volume Laterality 11/01/2021 11/02/2021 11:3 6 AM CDT Narrative APS SPECTRA [facility] - 11/02/2021 Unless otherwise specified, test(s) performed at: [facility], [address] [place] [address] CADMIUM LIQUOR MAKER: Carl Paula M.D. For any questions, please call customer service at FREQUENCY:MONTHLY Resulting Agency Comment Specimen source: Serum Landon Calvert MD LAB BLOOD ORDERABLES Performing Organization Address City/State/ZIP Code Phon e Number APS SPECTRA [facility] (ABNORMAL) HEMATOLOGY (11/01/2021) Analysis Performed At Patho logist Time Signature WBC 6.64 4.80 - [facility]PS [facility]RA 10.80 [facility] 1000/mcL RBC 3.99 (L) 4.20 - APS SPECTRA 5.40 [facility] mill/mcL Hemoglobin 10.4 (L) 12.0 - APS [facility]PECTRA 16.0 g/dL [facility] Hemoglobin x 3 31.2 (L) 36.0 - [facility] 48.0 % [facility] Hematocrit 32.8 (L) 37.0 - [facility]PS [facility]RA 47.0 % [facility] MCV 82 80 - 100 [facility] fl [facility] MCH 26.1 (L) 27.0 - [facility]PS [facility] 31.0 pg [facility] MCHC 31.8 30.0 - APS [facility]RA 36.0 g/dL [facility] RDW 17.8 (H) 11.5 - [facility]PS [facility]RA 14.5 % [facility] Platelets 352 130 - 400 APS [facility]PECTRA 1000/mcL [facility] Specimen (Source) Anatomical Collection Method Collection Time Re ceived Time Location / / Volume Laterality 11/01/2021 11/02/2021 3:55 PM CDT Narrative APS SPECTRA [facility] - 11/02/2021 Unless otherwise specified, test(s) performed at: [facility], [address] [place] [address] CADMIUM LIQUOR MAKER: Carl Paula M.D. For any questions, please call customer service at FREQUENCY:MONTHLY Resulting Agency Comment Specimen source: Blood Landon Calvert MD LAB BLOOD ORDERABLES Performing Organization Address City/State/ZIP Code Phon e Number APS SPECTRA [facility] (ABNORMAL) Spectrae Chemistry (11/01/2021) [facility] gist Method Time Signature BUN 64 (H) 6 - 19 APS SPECTRA mg/dL [facility] Creatinine 8.93 (H) 0.60 - APS SPECTRA 1.30 mg/dL [facility] BUN/Creatinine 7.2 (L) 10.0 - APS SPECTRA Ratio 20.0 [facility] Sodium 136 136 - 145 [facility]PS [facility]RA mEq/L [facility] Potassium 5.2 (H) 3.5 - 5.1 APS [facility]PECTRA mEq/L [facility] Chloride 97 96 - 108 APS [facility]RA mEq/L [facility] Bicarbonate 23 22 - 29 APS SPECTRA (CO2) mEq/L [facility] Calcium 10.2 8.4 - 10.2 APS SPECTRA mg/dL [facility] Comment: Custom Exception Corrected Calcium 10.2 8.4 - 10.2 mg/dL APS S PECTRA [facility] Comment: Corrected Calcium is not equivalent to m easured Ionized Calcium. Phosphorus 7.4 (H) 2.6 - 4.5 mg/dL APS SPECTRA [facility] Calcium Phosphorus Product 75 (H) 0 - 54 APS SPECTRA [facility] Calcium Phosporus Product, Cor 75 (H) 0 - 54 APS SPECTRA [facility] Total Protein 6.9 6.0 - 8.5 g/dL APS SPECTRA [facility] Albumin 4.0 3.5 - 5.2 g/dL [facility]PS S[facility]RA [facility] Globulin, Total 2.9 2.0 - 4.0 g/dL APS SPECT RA [facility] A/G Ratio 1.4 1.0 - 2.0 APS SPECTRA [facility] Iron 50 30 - 160 mcg/dL APS SPECTRA [facility] UIBC 298 155 - 355 mcg/dL APS SPECTRA K [facility] TIBC 348 185 - 515 mcg/dL APS SPECTRA K [facility] Iron Saturation (TSat) 14 (L) 20 - 55 % APS SPE CTRA [facility] Specimen (Source) Anatomical Collection Method Collection Time Re ceived Time Location / / Volume Laterality 11/01/2021 11/02/2021 11:3 6 AM CDT Narrative APS SPECTRA [facility] - 11/02/2021 Unless otherwise specified, test(s) performed at: [facility], [address] [place] [address] CADMIUM LIQUOR MAKER: Carl Paula M.D. For any questions, please call customer service at FREQUENCY:MONTHLY Resulting Agency Comment Specimen source: Serum Landon Calvert MD LAB BLOOD ORDERABLES Performing Organization Address City/State/ZIP Code Phon e Number APS SPECTRA [facility] documented in this encounter Visit Diagnoses Not on filedocumented in this encounter Care Teams Painter And Decorator Relationship Specialty Start Date End Date Fabian Arias MD PCP - General Family Medicine 09/04/[address] [place] [address] documented as of this encounter
--- OUTSIDE RECORDS SUMMARY | 2022-03-08 08:40 | XMS_ITS | Encounter Summary ---
:1940 Author Organization [facility] Address [address] [place] [address] Care Team Providers Name Role Phone Fabian Arias MD Primary Care Provider Encounter Details Date Type Department Care Team Description 10/11/2021 Treatment [facility] Landon Zarate MD [address] [place] [address] [place], [place] [phone] (Wo rk) Social History Tobacco Use Types Packs/Day Years Used Date Smoking Tobacco: Smoker, Current Cigarettes Started: 07/01/1976 Status Unknown Sex Assigned at Date Recorded Not on file documented as of this encounter Miscellaneous Notes Dialysis Note - Landon Calvert MD - 10/11/2021 10:59 AM CDT Date: Oct 11, 2021 Patient Name: Zamzam Garibay : 1940 Chart #: [id number] Sex: F This patient was personally seen for a complete visit as part of routine monthly dialysis care. A review of the dialysis treatment, blood pressure, estimated dry weight and recent lab values was made. These were discussed with the patient and staff as necessary. Treatment Data for 10/11/2021 started at:6:16 AM Dialyzer: 160NRe Optiflux Na: 137 mEq/L Bicarb: 33 mEq/L Dialysate: 3.0 K, 2.25 Ca, 1.0 Mg, 100 Dextrose (G3231) Dialysate/Machine Temp (prescribed): 37 C Dialysate/Machine Temp (actual): 37.1 C BFR (prescribed): 400 BFR (actual): 400 Prescribed time: 03:30 EDW: 48 kg Access Type: Active (In Use):CVCatheter-Tunneled/Chest Pre Dialysis Vitals (for 10/11/2021 6:08 AM ) Pre BP (sit): 201/96 Pre Wt: 52.8 kg Temp: 97.8 F Post Dialysis Vitals (for 10/09/2021 9:40 AM ) Post BP (sit): 164/84 Post Wt: 51.2 kg Current Dialysis Vitals (for 10/11/2021 9:36 AM ) BP (sit): 156/88 AP(-) / RESPIRATORY EQUIPMENT ASSISTANT: 180/129 Pulse: 79 Chairside data as of 10/11/2021 9:36 AM Last 3 Treatments 10/09/2021 10/06/2021 10/04/2021 EDW (kg) 48 48 48 Weight Pre (kg) 53.1 51.4 50.8 Weight Post (kg) 51.2 49.6 48.7 Dialytic Weight Loss (kg) -1.9 -1.8 -2.1 EDW Deviation (kg) 3.2 1.6 0.7 BP Sit Pre 199/101 169/85 191/91 BP Sit Post 164/84 164/78 178/81 UF Rate (mL/kg/hr) 11 11 12 Prescribed BFR 400 400 400 Average Delivered BFR 410 410 410 Prescribed Treatment Time 03:30 03:30 03:30 Actual Treatment Time 03:30 03:30 03:32 Treatment Medication Orders Medication Sig Start Date End Date Heparin Sodium (Porcine) 1,000 Units/mL Catheter Lock Arterial 2000 units Arterial Red Port Every Treatment 04/05/2021 04/04/2022 Heparin Sodium (Porcine) 1,000 Units/mL Catheter Lock Venous 2100 units Venous Blue Port Every Treatment 09/01/2021 08/31/2022 Heparin Sodium (Porcine) 1,000 Units/mL Systemic 2000 units IVP Every Treatment 07/05/2021 07/04/2022 Heparin Sodium (Porcine) 1,000 Units/mL Systemic 4000 units IVP Every Treatment 07/05/2021 07/04/2022 Mircera 60 mcg IVP Every 2 weeks 10/04/2021 10/03/2022 Vitamin D (Calcitriol) Oral 1.0 mcg ORAL Every Treatment 06/05/2021 06/04/2022 MIXING MACHINE TENDER: Landon Calvert MD LOCATION: [phone] SCHEDULE: -- 2nd Shift EDW: kg. DIALYZER: HD DURATION: NEEDLE SIZE: ANTICOAG: BATH: QB: ml/min QD: ml/min Subjective Tolerating dialysis well. 10/11/21: Tolerating dialysis. Still has catheter, needs follow-up with vascular. Labs reviewed, stable. 09/20/21: She is doing well, Fluid gains improved, no SOB or edema. She has access appt on 10/03 at [facility]. No concerns today. 09/06/21: She is 9 [...] This is Jaz's first day back from [facility]. She says she had no symptoms, but her son tested her when she was fatigued and had fever. She reports now having no symptoms at all. She says she feels great. Fluid gains have been better. 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 Can't remove [...] HD. 04/26/21: She was hospitalized briefly at [facility] for dyspnea, no pneumonia but rather related to CHF. She saw cardiology in follow-up in clinic, lisinopril and metoprolol and lasix with UF on HD to dry weight recommended. She is not interested in home dialysis, discussed today. 04/12/21: Patient new to me. She followed with loan supervisor in [facility], did not follow-up,crashed into dialysis [...] this is now being stopped. Advanced Practitioner Subjective Review of Systems None reported. 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 Edema - No leg edema. Access - PCAD c/d/i, AVF LUE unchanged Medication List Medication Sig Start Date B Complex 1 (with folic acid) (vitamin b complex-folic acid) 0.4 mg tablet Take 1 tablet by mouth once a day 04/12/2021 calcium acetate(phosphat bind) 667 mg capsule Take 2 capsule by mouth three times a day with meals. 1 with snacks 04/12/2021 furosemide 80 mg tablet Take 1 tablet by mouth once a day. TAKE 1 TABLET (80 MG TOTAL) BY MOUTH TWO(2) TIMES DAILY 04/12/2021 lisinopril 2.5 mg tablet Take mg by mouth every morning. Take 2.5mg daily in the morning. 04/20/2021 metoprolol succinate tablet extended release 24 hr 12.5 tablet Take tablet at bedtime. 12.5mg daily at night. 04/20/2021 omeprazole 20 mg capsule,delayed release(DR/EC) Take 1 capsule by mouth once a day 04/12/2021 RenaPlex-D (vit b,z-cn-ffpf-selen-vit d3-e) 800 mcg-12.5 mg-2,000 unit tablet Take 1 tablet by mouthonce a day trazodone 50 mg tablet Take 1 tablet by mouth every night as needed 04/12/2021 Allergy List Allergen Reaction Reaction Severity Onset Date [facility] Skin rash Medications reviewed and no changes were made. Treatment and Adequacy Assessment BUN mg/dL 61 (10/04/21) 61 (08/30/21) 93 (08/07/21) 80 (08/02/21) 36 (07/05/21) UREA NITROGEN (MG/DL) IN SER/PLAS - POST DIALYSIS mg/dL 10 (10/04/21) 10 (08/30/21) 19 (08/07/21) 8 (07/05/21) 11 (05/31/21) URR % 84 (10/04/21) 84 (08/30/21) 80 (08/07/21) 78 (07/05/21) 83 (05/31/21) spKt/V Gotch 2.27 (08/30/21) 1.85 (08/07/21) 2.12 (05/31/21) 2.1 (05/03/21) eKdrt/V 1.91 (08/30/21) 1.57 (08/07/21) 1.79 (05/31/21) 1.78 (05/03/21) spKt/V (Daugirdas II) 2.2200 (08/30/21) 1.9000 (08/07/21) 1.7200 (07/05/21) 2.1200 (05/31/21) 2.1200 (05/03/21) Dialysis is adequate. Achieves prescribed time - Yes Achieves prescribed frequency - Yes Continue current prescription. 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 Will need new access placement. She is being set up for vein mapping and surgeon consult Anemia Assessment HEMOGLOBIN (G/DL) IN BLOOD g/dL 10.1 (10/04/21) 9.6 (09/27/21) 9.6 (09/20/21) 9.6 (09/13/21) 9.8 (09/06/21) PLATELETS 1000/mcL 299 (08/30/21) 329 (08/02/21) 390 (07/05/21) 245 (05/31/21) 236 (05/03/21) IRON SATURATION % 11 (10/04/21) 16 (08/30/21) 18 (08/02/21) 20 (07/05/21) 18 (05/31/21) FERRITIN ng/mL 39 (10/04/21) 293 (07/05/21) 250 (05/10/21) Hemoglobin is at goal. Iron Saturation is below goal. Ferritin is below goal. Will adjust CARIE and intravenous iron per protocol. No Venofer, reaction. If iron lower this month, will use Ferrilicit Nutritional and Metabolic Assessment ALBUMIN (G/DL) g/dL 3.8 (10/04/21) 4.0 (08/30/21) 3.9 (08/02/21) 3.7 (07/05/21) 3.7 (05/31/21) Sodium mEq/L 138 (10/04/21) 142 (08/30/21) 140 (08/02/21) 140 (07/05/21) 140 (05/31/21) POTASSIUM (MMOL/L) IN SER/PLAS mEq/L 5.1 (10/04/21) 5.2 (08/30/21) 3.8 (08/02/21) 4.7 (07/05/21) 3.7 (05/31/21) BICARBONATE (CO2) mEq/L 13 (10/04/21) 21 (08/30/21) 22 (08/02/21) 30 (07/05/21) 25 (05/31/21) Albumin is below goal. Encourage high-biological value protein intake. Potassium is at goal. Bicarbonate is at goal. Continue same bicarbonate in dialysate. Bone and Mineral Metabolism Assessment Calcium mg/dL 9.6 (10/04/21) 9.7 (08/30/21) 9.4 (08/02/21) 9.7 (07/05/21) 9.3 (05/31/21) CALCIUM (MG/DL) CORRECTED FOR ALBUMIN IN SER/PLAS mg/dL 9.8 (10/04/21) 9.7 (08/30/21) 9.5 (08/02/21) 9.9 (07/05/21) 9.5 (05/31/21) PHOSPHATE (MG/DL) IN SER/PLAS mg/dL 8.1 (10/04/21) 7.4 (08/30/21) 9.4 (08/02/21) 5.6 (07/05/21) 6.3 (05/31/21) CALCIUM PHOSPHORUS PRODUCT, COR 79 (10/04/21) 72 (08/30/21) 89 (08/02/21) 55 (07/05/21) 60 (05/31/21) IPTH pg/mL 232 (10/04/21) 254 (07/05/21) 493 (05/31/21) 505 (05/03/21) 694 (04/05/21) Corrected Calcium is at goal. Phosphorous is above goal. Intact PTH is at goal. Leaf Binner will adjust binders and vitamin D per protocol and continue to provide dietary education. Needs 100% compliance with binders and following renal diet Cardiovascular Assessment Blood pressures reviewed and are acceptable. Intradialytic weight gains are too high. Estimated dry weight is appropriate. Continue same cardiovascular medications. Discussed fluid gains and salt intake. Transplant Status: Patient is not a candidate. age and co-morbidities Resuscitation Status Stable dialysis, no change to prescription Needs better adherence to renal diet and 100% binder compliance Emphasis continues on low fluid gains given CHF Needs follow-up with vascular for access placement Landon Calvert MD [ Signed And locked electronically On 10/11/2021 at 11:01:20 AM ] Transcribed: Landon Calvert ( 10/11/2021 ) documented in this encounter Plan of Treatment Not on filedocumented as of this encounter Visit Diagnoses Not on filedocumented in this encounter Care Teams Compotype Operator Relationship Specialty Start Date End Date Fabian Arias MD PCP - General Family Medicine 09/04/[address] [place] [address] documented as of this encounter
--- OUTSIDE RECORDS SUMMARY | 2022-03-08 08:40 | XMS_ITS | Encounter Summary ---
:1940 Author Organization [facility] Address [address] [place] [address] Care Team Providers Name Role Phone Fabian Arias MD Primary Care Provider Encounter Details Date Type Department Care Team Description 02/21/2022 Orders Only [facility] O f Landon Zarate MD [phone] [place] [address] [place], [place] [phone] (Wo rk) Social History Tobacco Use Types Packs/Day Years Used Date Smoking Tobacco: Smoker, Current Cigarettes Started: 07/01/1976 Status Unknown Sex Assigned at Date Recorded Not on file documented as of this encounter Plan of Treatment Not on filedocumented as of this encounter Procedures Procedure Name Priority Date/Time Associated Diagnosis Comme nts HEMATOLOGY Routine 02/21/2022 Results for thi s procedure are in the resu lts section. CHEMISTRY Routine 02/21/2022 Results for thi s procedure are in the resu lts section. CHEMISTRY Routine 02/21/2022 Results for thi s procedure are in the resu lts section. documented in this encounter Results (ABNORMAL) HEMATOLOGY (02/21/2022) Analysis Performed At Patho logist Time Signature Hemoglobin 10.8 (L) 12.0 - APS SPECTRA 16.0 g/dL [facility] Hemoglobin x 3 32.4 (L) 36.0 - APS SPECTRA 48.0 % [facility] Specimen (Source) Anatomical Collection Method Collection Time Re ceived Time Location / / Volume Laterality 02/21/2022 02/22/2022 11:3 8 AM CDT Narrative APS SPECTRA [facility] - 02/22/2022 Unless otherwise specified, test(s) performed at: [facility], [address] [place] [address], [place] [address] EXTRUSION DIE CORRECTOR: Vicente Flores M.D., Ph.D For any questions, please call customer service at FREQUENCY:OTHER Resulting Agency Comment Specimen source: Blood Landon Calvert MD LAB BLOOD ORDERABLES Performing Organization Address City/[facility] Phon e Number APS SPECTRA [facility] (ABNORMAL) Spectrae Chemistry (02/21/2022) P athologist Signature PTH 607 (H) 16 - 80 APS SPECTRA pg/mL [facility] Specimen (Source) Anatomical Collection Method Collection Time Re ceived Time Location / / Volume Laterality 02/21/2022 02/22/2022 10:2 4 AM CDT Narrative APS SPECTRA [facility] - 02/22/2022 Unless otherwise specified, test(s) performed at: [facility], [address] [place] [address], [place] [address] EXTRUSION DIE CORRECTOR: Vicente Flores M.D., Ph.D For any questions, please call customer service at FREQUENCY:OTHER Resulting Agency Comment Specimen source: Plasma Landon Calvert MD LAB BLOOD ORDERABLES Performing Organization Address City/[facility] Phon e Number APS SPECTRA [facility] Spectrae Chemistry (02/21/2022) P athologist Signature Calcium 9.5 8.7 - 10.4 APS SPECTRA mg/dL [facility] Comment: Please note change in reference range. Specimen (Source) Anatomical Collection Method Collection Time Re ceived Time Location / / Volume Laterality 02/21/2022 02/22/2022 9:40 AM CDT Narrative APS SPECTRA [facility] - 02/22/2022 Unless otherwise specified, test(s) performed at: [facility], [address] [place] [address], [place] [address] EXTRUSION DIE CORRECTOR: Vicente Flores M.D., Ph.D For any questions, please call customer service at FREQUENCY:OTHER Resulting Agency Comment Specimen source: Serum Landon Calvert MD LAB BLOOD ORDERABLES Performing Organization Address City/State/ZIP Code Phon e Number APS SPECTRA [facility] documented in this encounter Visit Diagnoses Not on filedocumented in this encounter Care Teams Tractor Trailer Technician Relationship Specialty Start Date End Date Fabian Arias MD PCP - General Family Medicine 09/04/[address] [place] [address] documented as of this encounter
--- OUTSIDE RECORDS SUMMARY | 2022-03-08 08:40 | XMS_ITS | Encounter Summary ---
:1940 Author Organization [facility] Address [address] [place] [address] Care Team Providers Name Role Phone Fabian Arias MD Primary Care Provider Encounter Details Date Type Department Care Team Description 02/07/2022 Orders Only [facility] O f Landon Zarate MD [phone] [place] [address] [place], [place] [phone] (Wo rk) Social History Tobacco Use Types Packs/Day Years Used Date Smoking Tobacco: Smoker, Current Cigarettes Started: 07/01/1976 Status Unknown Sex Assigned at Date Recorded Not on file documented as of this encounter Plan of Treatment Not on filedocumented as of this encounter Procedures Procedure Name Priority Date/Time Associated Diagnosis Comme nts HEMATOLOGY Routine 02/07/2022 Results for thi s procedure are in the resu lts section. documented in this encounter Results HEMATOLOGY (02/07/2022) P athologist Signature Hemoglobin 12.5 12.0 - APS SPECTRA 16.0 g/dL [facility] Hemoglobin x 3 37.5 36.0 - APS SPECTRA 48.0 % [facility] Specimen (Source) Anatomical Collection Method Collection Time Re ceived Time Location / / Volume Laterality 02/07/2022 02/08/2022 8:24 AM CDT Narrative APS SPECTRA [facility] - 02/08/2022 Unless otherwise specified, test(s) performed at: [facility], [address] [place] [address], [place] [address] RESEARCH TECH: Vicente Flores M.D., Ph.D For any questions, please call customer service at FREQUENCY:OTHER Resulting Agency Comment Specimen source: Blood Landon Calvert MD LAB BLOOD ORDERABLES Performing Organization Address City/State/ZIP Code Phon e Number APS SPECTRA [facility] documented in this encounter Visit Diagnoses Not on filedocumented in this encounter Care Teams Balloon Artist Relationship Specialty Start Date End Date Fabian Arias MD PCP - General Family Medicine 09/04/[address] [place] [address] documented as of this encounter
--- OUTSIDE RECORDS SUMMARY | 2022-03-08 08:40 | XMS_ITS | Encounter Summary ---
:1940 Author Organization [facility] Address [address] [place] [address] Care Team Providers Name Role Phone Fabian Arias MD Primary Care Provider Encounter Details Date Type Department Care Team Description 02/14/2022 Orders Only [facility] f Landon Zarate MD [phone] [place] [address] [place], [place] [phone] (Wo rk) Social History Tobacco Use Types Packs/Day Years Used Date Smoking Tobacco: Smoker, Current Cigarettes Started: 07/01/1976 Status Unknown Sex Assigned at Date Recorded Not on file documented as of this encounter Plan of Treatment Not on filedocumented as of this encounter Procedures Procedure Name Priority Date/Time Associated Diagnosis Comme nts HEMATOLOGY Routine 02/14/2022 Results for thi s procedure are in the resu lts section. documented in this encounter Results (ABNORMAL) HEMATOLOGY (02/14/2022) Analysis Performed At Patho logist Time Signature Hemoglobin 11.1 (L) 12.0 - [facility] 16.0 g/dL [facility] Hemoglobin x 3 33.3 (L) 36.0 - [facility] 48.0 % [facility] Specimen (Source) Anatomical Collection Method Collection Time Re ceived Time Location / / Volume Laterality 02/14/2022 02/15/2022 6:38 AM CDT Narrative APS SPECTRA [facility] - 02/15/2022 Unless otherwise specified, test(s) performed at: [facility], [address] [place] [address] [place] [address] HANDYMAN: Vicente Flores M.D., Ph.D For any questions, please call customer service at FREQUENCY:OTHER Resulting Agency Comment Specimen source: Blood Landon Calvert MD LAB BLOOD ORDERABLES Performing Organization Address City/State/ZIP Code Phon e Number [facility]PS [facility]RA [facility] documented in this encounter Visit Diagnoses Not on filedocumented in this encounter Care Teams Optical Goods Drill Operator Relationship Specialty Start Date End Date Fabian Arias MD PCP - General Family Medicine 09/04/[address] [place] [address] documented as of this encounter
--- OUTSIDE RECORDS SUMMARY | 2022-03-08 08:40 | XMS_ITS | Encounter Summary ---
:1940 Author Organization [facility] Address [address] [place] [address] Care Team Providers Name Role Phone Fabian Arias MD Primary Care Provider Encounter Details Date Type Department Care Team Description 2021 Orders Only [facility] f Landon Zarate MD [phone] [place] [address] [place], [place] [phone] (Wo rk) Social History Tobacco Use Types Packs/Day Years Used Date Smoking Tobacco: Smoker, Current Cigarettes Started: 07/01/1976 Status Unknown Sex Assigned at Date Recorded Not on file documented as of this encounter Plan of Treatment Not on filedocumented as of this encounter Procedures Procedure Name Priority Date/Time Associated Diagnosis Comme nts HEMATOLOGY Routine 2021 Results for thi s procedure are in the resu lts section. documented in this encounter Results (ABNORMAL) HEMATOLOGY (2021) Analysis Performed At Patho logist Time Signature Hemoglobin 11.5 (L) 12.0 - [facility] 16.0 g/dL [facility] Hemoglobin x 3 34.5 (L) 36.0 - [facility] 48.0 % [facility] Specimen (Source) Anatomical Collection Method Collection Time Re ceived Time Location / / Volume Laterality 2021 12/28/2021 9:26 AM CDT Narrative [facility]PS S[facility] - 12/28/2021 Unless otherwise specified, test(s) performed at: [facility], [address] [place] [address] INSTRUMENT LENS GRINDER APPRENTICE: Carl Paula M.D. For any questions, please call customer service at FREQUENCY:OTHER Resulting Agency Comment Specimen source: Blood Landon Calvert MD LAB BLOOD ORDERABLES Performing Organization Address City/State/ZIP Code Phon e Number [facility]PS [facility]RA [facility] documented in this encounter Visit Diagnoses Not on filedocumented in this encounter Care Teams After School Driver Relationship Specialty Start Date End Date Fabian Arias MD PCP - General Family Medicine 09/04/[address] [place] [address] documented as of this encounter
--- OUTSIDE RECORDS SUMMARY | 2022-03-08 08:40 | XMS_ITS | Encounter Summary ---
:1940 Author Organization [facility] Address [address] [place] [address] Care Team Providers Name Role Phone Fabian Arias MD Primary Care Provider Encounter Details Date Type Department Care Team Description 01/31/2022 Orders Only [facility] f Landon Zarate MD [phone] [place] [address] [place], [place] [phone] (Wo rk) Social History Tobacco Use Types Packs/Day Years Used Date Smoking Tobacco: Smoker, Current Cigarettes Started: 07/01/1976 Status Unknown Sex Assigned at Date Recorded Not on file documented as of this encounter Plan of Treatment Not on filedocumented as of this encounter Procedures Procedure Name Priority Date/Time Associated Diagnosis Comme nts HD KINETICS Routine 01/31/2022 Results for thi s procedure are i n the results section . POST CHEMISTRY Routine 01/31/2022 Results for t his procedure are i n the results section . IMMUNO CHEMISTRY Routine 01/31/2022 Results for this procedure are i n the results section . HEMATOLOGY Routine 01/31/2022 Results for thi s procedure are i n the results section . CHEMISTRY Routine 01/31/2022 Results for thi s procedure are i n the results section . SPECTRA [facility] LAB RESULTS Routine 01/31/2022 Resul ts for this procedure are i n the results section . documented in this encounter Results Spectra [facility] Lab Results (01/31/2022) P athologist Signature eKt/V 1.91 [facility] ([place]) eKt/V Gotch 1.95 [facility] spKt/V Gotch 2.32 [facility] eNPCR 1.56 [facility] spKt/V 2.23 [facility] (Daugirdas II) eKdrt/V 1.95 [facility] nPCR_HD 1.68 [facility] PCR 67.63 [facility] Specimen (Source) Anatomical Location Collection Method / Collectio n Time Received Time / Laterality Volume 01/31/2022 01/31/2022 Celia Ordering Provider LAB BLOOD ORDERABLES Performing Organization Address City/[facility]/ZIP Code Phon e Number [facility] IMMUNO CHEMISTRY (01/31/2022) P athologist Signature Hep B Surface Negative Negative [facility] Ag [facility] Hepatitis B <10 mIU/mL [facility] Surface Ab [facility] Comment: Reference Range: <10 mIU/mL ? Non-Immune >=10 mIU/mL ?Immune The magnitude of the measured result abo ve 10 mIU/mL is not indicative of the total amount of antibody present. Custom Exception Specimen (Source) Anatomical Collection Method Collection Time Re ceived Time Location / / Volume Laterality 01/31/2022 02/01/2022 4:11 AM CDT Narrative [facility]PS [facility] - 02/01/2022 Unless otherwise specified, test(s) performed at: [facility], [address] [place] [address], [place] [address] BARGE MASTER: Vicente Flores M.D., Ph.D For any questions, please call customer service at FREQUENCY:MONTHLY Resulting Agency Comment Specimen source: Plasma Landon Calvert MD LAB BLOOD ORDERABLES Performing Organization Address City/[facility] Code Phon e Number [facility]PS [facility]RA [facility] (ABNORMAL) HD KINETICS (01/31/2022) P athologist Signature % Urea 84 (H) 65 - 80 % [facility] Reduction [facility] Specimen (Source) Anatomical Collection Method Collection Time Re ceived Time Location / / Volume Laterality 01/31/2022 02/01/2022 3:50 AM CDT Resulting Agency Comment Specimen source: Plasma Landon Calvert MD LAB BLOOD ORDERABLES Performing Organization Address City/State/ZIP Code Phon e Number [facility] POST CHEMISTRY (01/31/2022) P athologist Signature BUN Post 13 6 - 19 APS [facility]RA Dialysis mg/dL [facility] Specimen (Source) Anatomical Collection Method Collection Time Re ceived Time Location / / Volume Laterality 01/31/2022 02/01/2022 3:50 AM CDT Narrative [facility]PS S[facility]RA [facility] - 02/01/2022 Unless otherwise specified, test(s) performed at: [facility], [address] [place] [address], [place] [address] BARGE MASTER: Vicente Flores M.D., Ph.D For any questions, please call customer service at FREQUENCY:MONTHLY Resulting Agency Comment Specimen source: Plasma Landon Calvert MD LAB BLOOD ORDERABLES Performing Organization Address City/State/ZIP Code Phon e Number [facility]PS [facility]RA [facility] (ABNORMAL) Spectrae Chemistry (01/31/2022) Patholo gist Method Time Signature BUN 80 (H) 6 - 19 [facility] mg/dL [facility] Creatinine 8.16 (H) 0.60 - [facility] 1.30 mg/dL [facility] BUN/Creatinine 9.8 (L) 10.0 - [facility] Ratio 20.0 [facility] Sodium 137 136 - 145 [facility] mEq/L [facility] Potassium 4.6 3.5 - 5.1 [facility] mEq/L [facility] Chloride 101 96 - 108 [facility] mEq/L [facility] Bicarbonate 25 20 - 31 APS [facility] (CO2) mEq/L [facility] Comment: Please note change in reference range. Calcium 9.8 8.7 - 10.4 mg/dL [facility] Comment: Please note change in reference range. Corrected Calcium 9.6 8.7 - 10.4 mg/dL APS S PECTRA [facility] Comment: Corrected Calcium is not equivalent to m easured Ionized Calcium. Phosphorus 5.9 (H) 2.6 - 4.5 mg/dL APS SPECTRA [facility] Calcium Phosphorus Product 58 (H) 0 - 54 [facility]PS S[facility]RA [facility] Calcium Phosporus Product, Cor 57 (H) 0 - 54 [facility]RA [facility] Total Protein 6.7 6.0 - 8.5 g/dL [facility] Albumin 4.2 3.5 - 5.2 g/dL [facility] Globulin, Total 2.5 2.0 - 4.0 g/dL APS SPECT RA [facility] A/G Ratio 1.7 1.0 - 2.0 [facility] Iron 62 30 - 160 mcg/dL [facility] UIBC 147 (L) 155 - 355 mcg/dL APS SPECTRA [facility] TIBC 209 185 - 515 mcg/dL APS SPECTRA [facility] Iron Saturation (TSat) 30 20 - 55 % APS SPE CTRA [facility] Specimen (Source) Anatomical Collection Method Collection Time Re ceived Time Location / / Volume Laterality 01/31/2022 02/01/2022 4:11 AM CDT Narrative [facility]PS S[facility]RA [facility] - 02/01/2022 Unless otherwise specified, test(s) performed at: [facility], [address] [place] [address], [place] [address] BARGE MASTER: Vicente Flores M.D., Ph.D For any questions, please call customer service at FREQUENCY:MONTHLY Resulting Agency Comment Specimen source: Serum Landon Calvert MD LAB BLOOD ORDERABLES Performing Organization Address City/State/ZIP Code Phon e Number [facility]PS S[facility]RA [facility] (ABNORMAL) HEMATOLOGY (01/31/2022) Analysis Performed At Patho logist Time Signature WBC 5.95 4.80 - [facility] 10.80 [facility] 1000/mcL RBC 4.65 4.20 - [facility]PS [facility]RA 5.40 [facility] mill/mcL Hemoglobin 11.9 (L) 12.0 - [facility] 16.0 g/dL [facility] Hemoglobin x 3 35.7 (L) 36.0 - [facility] 48.0 % [facility] Hematocrit 37.4 37.0 - [facility] 47.0 % [facility] MCV 80 80 - 100 [facility] fl [facility] MCH 25.6 (L) 27.0 - [facility] 31.0 pg [facility] MCHC 31.9 30.0 - [facility] 36.0 g/dL [facility] RDW 21.3 (H) 11.5 - [facility] 14.5 % [facility] Platelets 255 130 - 400 A[facility]RA 1000/mcL [facility] Specimen (Source) Anatomical Collection Method Collection Time Re ceived Time Location / / Volume Laterality 01/31/2022 02/01/2022 3:44 AM CDT Narrative APS CORNELL [facility] - 02/01/2022 Unless otherwise specified, test(s) performed at: [facility], [address] [place] [address] [place] [address] BARGE MASTER: Vicente Flores M.D., Ph.D For any questions, please call customer service at FREQUENCY:MONTHLY Resulting Agency Comment Specimen source: Blood Landon Calvert MD LAB BLOOD ORDERABLES Performing Organization Address City/State/ZIP Code Phon e Number [facility]PS [facility] documented in this encounter Visit Diagnoses Not on filedocumented in this encounter Care Teams Manager Fine Relationship Specialty Start Date End Date aFbian Arias MD PCP - General Family Medicine 09/04/[address] [place] [address] documented as of this encounter
--- OUTSIDE RECORDS SUMMARY | 2022-03-08 08:40 | XMS_ITS | Encounter Summary ---
:1940 Author Organization [facility] Address [address] [place] [address] Care Team Providers Name Role Phone Fabian Arias MD Primary Care Provider Encounter Details Date Type Department Care Team Description 12/20/2021 Orders Only [facility] O f Landon Zarate MD [address] [place] [address] [place], [place] [phone] (Wo rk) Social History Tobacco Use Types Packs/Day Years Used Date Smoking Tobacco: Smoker, Current Cigarettes Started: 07/01/1976 Status Unknown Sex Assigned at Date Recorded Not on file documented as of this encounter Plan of Treatment Not on filedocumented as of this encounter Procedures Procedure Name Priority Date/Time Associated Diagnosis Comme nts HEMATOLOGY Routine 12/20/2021 Results for thi s procedure are in the resu lts section. documented in this encounter Results (ABNORMAL) HEMATOLOGY (12/20/2021) Analysis Performed At Patho logist Time Signature Hemoglobin 9.5 (L) 12.0 - APS [facility]RA 16.0 g/dL [facility] Hemoglobin x 3 28.5 (L) 36.0 - APS [facility]PECTRA 48.0 % [facility] Specimen (Source) Anatomical Collection Method Collection Time Re ceived Time Location / / Volume Laterality 12/20/2021 12/21/2021 1:09 PM CDT Narrative APS SPECTRA [facility] - 12/21/2021 Unless otherwise specified, test(s) performed at: [facility], [address] [place] [address] SUPERVISOR HOSPITAL[employer] HOUSE: Carl Paula M.D. For any questions, please call customer service at FREQUENCY:OTHER Resulting Agency Comment Specimen source: Blood Landon Calvert MD LAB BLOOD ORDERABLES Performing Organization Address City/State/ZIP Code Phon e Number [facility]PS [facility]RA [facility] documented in this encounter Visit Diagnoses Not on filedocumented in this encounter Care Teams Cisco Network Architect Relationship Specialty Start Date End Date Fabian Arias MD PCP - General Family Medicine 09/04/[address] [place] [address] documented as of this encounter
--- OUTSIDE RECORDS SUMMARY | 2022-03-08 08:40 | XMS_ITS | Encounter Summary ---
:1940 Author Organization [facility] Address [address] [place] [address] Care Team Providers Name Role Phone Fabian Arias MD Primary Care Provider Encounter Details Date Type Department Care Team Description 12/06/2021 Treatment [facility] f Landon Zarate MD [address] [place] [address] [place], [place] [phone] (Wo rk) Social History Tobacco Use Types Packs/Day Years Used Date Smoking Tobacco: Smoker, Current Cigarettes Started: 07/01/1976 Status Unknown Sex Assigned at Date Recorded Not on file documented as of this encounter Miscellaneous Notes Dialysis Note - Landon Calvert MD - 12/06/2021 10:03 AM CDT Date: Dec 06, 2021 Patient Name: Zamzam Garibay : 1940 Chart #: [id number] Sex: F This patient was personally seen for a complete visit as part of routine monthly dialysis care. A review of the dialysis treatment, blood pressure, estimated dry weight and recent lab values was made. These were discussed with the patient and staff as necessary. Treatment Data for 12/06/2021 started at:6:11 AM Dialyzer: 160NRe Optiflux Na: 137 mEq/L Bicarb: 33 mEq/L Dialysate: 3.0 K, 2.5 Ca, 1.0 Mg, 100 Dextrose (G3251) Dialysate/Machine Temp (prescribed): 37 C Dialysate/Machine Temp (actual): 37.1 C BFR (prescribed): 400 BFR (actual): 320 Prescribed time: 03:30 EDW: 48.5 kg Access Type: Active (In Use):CVCatheter-Tunneled/Chest Pre Dialysis Vitals (for 12/06/2021 6:05 AM ) Pre BP (sit): 199/100 Pre Wt: 53.9 kg Temp: 96.9 F Post Dialysis Vitals (for 12/04/2021 9:48 AM ) Post BP (sit): 195/93 Post Wt: 51.5 kg Current Dialysis Vitals (for 12/06/2021 9:31 AM ) BP (sit): 175/83 AP(-) / PIN MAKER: 234/72 Pulse: 70 Chairside data as of 12/06/2021 9:31 AM Last 3 Treatments 12/04/2021 12/01/2021 11/29/2021 EDW (kg) 48.5 48.5 48.5 Weight Pre (kg) 53 51.7 51.9 Weight Post (kg) 51.5 50 50.1 Dialytic Weight Loss (kg) -1.5 -1.7 -1.8 EDW Deviation (kg) 3.0 1.5 1.6 BP Sit Pre 206/92 197/88 192/89 BP Sit Post 195/93 158/87 170/87 UF Rate (mL/kg/hr) 9 10 11 Prescribed BFR 400 400 400 Average Delivered BFR 410 410 410 Prescribed Treatment Time 03:30 03:30 03:30 Actual Treatment Time 03:30 03:33 03:30 Treatment Medication Orders Medication Sig Start [...] 2000 units IVP Every Treatment 07/05/2021 07/04/2022 Mircera 200 mcg IVP Every 2 weeks 12/06/2021 12/05/2022 Sodium Ferric Gluconate (Ferrlecit) 125 mg IV Every Treatment 12/06/2021 01/03/2022 MANUFACTURING QUALITY ENGINEER: Landon Calvert MD LOCATION: [phone] SCHEDULE: -- 2nd Shift EDW: kg. DIALYZER: HD DURATION: NEEDLE SIZE: ANTICOAG: BATH: QB: ml/min QD: ml/min Subjective Tolerating dialysis well. 12/06/21: She says she feels well. Her [...] her daughter and grandchild up in the [facility]. No symptoms of fluid overload, [...] has access appt on 10/03 at [facility]. No concerns today. 09/06/21: She is 9 [...] This is Jaz's first day back from [facility] isolation unit. She says she had no symptoms, but her son tested her when she was fatigued and had fever. She reports now having no symptoms at all. She says she feels great. Fluid gains have been better. 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 Can't remove [...] HD. 04/26/21: She was hospitalized briefly at [facility] for dyspnea, no pneumonia but rather related to CHF. She saw cardiology in follow-up in clinic, lisinopril and metoprolol and lasix with UF on HD to dry weight recommended. She is not interested in home dialysis, discussed today. 04/12/21: Patient new to me. She followed with slasher sawyer in [facility], did not follow-up,crashed into dialysis in January [...] Exam Respiratory - Clear to auscultation bilaterally. Cardiovascular - Regular rate. Regular rhythm. No murmur heard. Edema - No leg edema. Access - PCAD c/d/i, AVF LUE unchanged/underdeveloped with collaterals Medication List Medication Sig Start Date B [...] mouth once a day 04/12/2021 RenaPlex-D (vit b,i-yi-yyfq-selen-vit d3-e) 800 mcg-12.5 mg-2,000 unit tablet Take 1 tablet by mouthonce a day trazodone 50 mg tablet Take 1 tablet by mouth every night as needed 04/12/2021 Allergy List Allergen Reaction Reaction Severity Onset Date Venofer Skin rash Medications reviewed and no changes were made. Treatment and Adequacy Assessment BUN mg/dL 56 (11/29/21) 64 (11/01/21) 61 (10/04/21) 61 (08/30/21) 93 (08/07/21) UREA NITROGEN (MG/DL) IN SER/PLAS - POST DIALYSIS mg/dL 11 (11/29/21) 11 (11/01/21) 10 (10/04/21) 10 (08/30/21) 19 (08/07/21) URR % 80 (11/29/21) 83 (11/01/21) 84 (10/04/21) 84 (08/30/21) 80 (08/07/21) spKt/V Gotch 1.97 (11/29/21) 2.12 (11/01/21) 2.21 (10/04/21) 2.27 (08/30/21) 1.85 (08/07/21) eKdrt/V 1.66 (11/29/21) 1.79 (11/01/21) 1.86 (10/04/21) 1.91 (08/30/21) 1.57 (08/07/21) spKt/V (Daugirdas II) 1.9300 (11/29/21) 2.1000 (11/01/21) 2.1700 (10/04/21) 2.2200 (08/30/21) 1.9000 (08/07/21) Dialysis is adequate. Achieves prescribed time - Yes Achieves prescribed frequency - Yes Continue current prescription. Vascular Access Assessment Type of access: Catheterand LUE AVF 12/06/21: Attempted using AVF with one 17g needle, infiltrated, now pulling clots. Does not seem usable to me based on this and how it feels. 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 Will need new access placement. She is being set up for vein mapping and surgeon consult Anemia Assessment HEMOGLOBIN (G/DL) IN BLOOD g/dL 9.8 (11/29/21) 9.6 (11/22/21) 9.4 (11/15/21) 9.6 (11/08/21) 10.4 (11/01/21) PLATELETS 1000/mcL 358 (11/29/21) 352 (11/01/21) 299 (08/30/21) 329 (08/02/21) 390 (07/05/21) IRON SATURATION % 6 (11/29/21) 14 (11/01/21) 11 (10/04/21) 16 (08/30/21) 18 (08/02/21) FERRITIN ng/mL 28 (10/18/21) 39 (10/04/21) 293 (07/05/21) 250 (05/10/21) Hemoglobin is below goal. Iron Saturation is below goal. Ferritin is below goal. Will adjust CARIE and intravenous iron per protocol. No Venofer, reaction. If iron lower this month, will use Ferrilicit and will start course of 125mg per treatment x8 Nutritional and Metabolic Assessment ALBUMIN (G/DL) g/dL 3.8 (11/29/21) 4.0 (11/01/21) 3.8 (10/04/21) 4.0 (08/30/21) 3.9 (08/02/21) Sodium mEq/L 142 (11/29/21) 136 (11/01/21) 138 (10/04/21) 142 (08/30/21) 140 (08/02/21) POTASSIUM (MMOL/L) IN SER/PLAS mEq/L 4.3 (11/29/21) 5.2 (11/01/21) 5.1 (10/04/21) 5.2 (08/30/21) 3.8 (08/02/21) BICARBONATE (CO2) mEq/L 23 (11/29/21) 23 (11/01/21) 13 (10/04/21) 21 (08/30/21) 22 (08/02/21) Albumin is below goal. Encourage high-biological value protein intake. Potassium is at goal. Bicarbonate is at goal. Continue same bicarbonate in dialysate. Bone and Mineral Metabolism Assessment Calcium mg/dL 9.1 (11/29/21) 10.3 (11/08/21) 10.3 (11/06/21) 10.2 (11/01/21) 9.6 (10/04/21) CALCIUM (MG/DL) CORRECTED FOR ALBUMIN IN SER/PLAS mg/dL 9.3 (11/29/21) 10.2 (11/01/21) 9.8 (10/04/21) 9.7 (08/30/21) 9.5 (08/02/21) PHOSPHATE (MG/DL) IN SER/PLAS mg/dL 6.7 (11/29/21) 7.4 (11/01/21) 8.1 (10/04/21) 7.4 (08/30/21) 9.4 (08/02/21) CALCIUM PHOSPHORUS PRODUCT, COR 62 (11/29/21) 75 (11/01/21) 79 (10/04/21) 72 (08/30/21) 89 (08/02/21) IPTH pg/mL 138 (11/08/21) 232 (10/04/21) 254 (07/05/21) 493 (05/31/21) 505 (05/03/21) Corrected Calcium is at goal. Phosphorous is above goal. Intact PTH is at goal. Drapery Supervisor will adjust binders and vitamin D per protocol and continue to provide dietary education. Needs 100% compliance with binders and following renal diet. Phos is slowly improving. Cardiovascular Assessment Blood pressures reviewed and are not at goal, see below. Intradialytic weight gains are too high. Estimated dry weight is appropriate. Continue same cardiovascular medications. Discussed fluid gains and salt intake, discussed need for 2L or less fluid gains given propensity for symptoms with UF >2.0-2.3L. If we cannot get back to EDW over next week, she will need extra UF run next week to get to EDW and improve BP and volume status Transplant Status: Patient is not a candidate. age and co-morbidities Resuscitation Status Stable dialysis Send back to [facility] Work on fluid gains <2L, may need extra UF run soon if can't get back to EDW. BP also high I think related to fluid overload Start course of IV iron Landon Calvert MD [ Signed And locked electronically On 12/06/2021 at 10:09:18 AM ] Transcribed: Landon Calvert ( 12/06/2021 ) documented in this encounter Plan of Treatment Not on filedocumented as of this encounter Visit Diagnoses Not on filedocumented in this encounter Care Teams Maintenance And Utilities Supervisor Relationship Specialty Start Date End Date Fabian Arias MD PCP - General Family Medicine 09/04/[address] [place] [address] documented as of this encounter
--- OUTSIDE RECORDS SUMMARY | 2022-03-08 08:40 | XMS_ITS | Clinical Summary ---
:1940 Author Organization [facility] Facility Address [address] [place] [address] Care Team Providers Name Role Phone Fabian Arias MD Primary Care Provider Allergies Active Allergy Reactions Severity Noted Date Comments Carvedilol Other (see comments) 12/28/2019 Medications Medication Sig Dispensed Refills Start Date End Date Status furosemide (LASIX) 80 Take 1 tablet by 0 09/01/2020 Active MG tablet mouth 2 (two) times a day hydrALAZINE Take 1 tablet by 0 06/16/2020 Active (APRESOLINE) 50 MG mouth 3 (three) tablet times a day sodium bicarbonate 650 Take 1 tablet by 0 06/02/2020 Active MG tablet mouth 3 times a day Vitamin D, Take 1 tablet by 0 Ac tive Cholecalciferol, 50 MCG mouth 1 (one) (1999 UT) capsule time each day Active Problems Problem Noted Date Stage 5 chronic kidney disease 09/04/2020 Essential (primary) hypertension 09/04/2020 Congestive heart failure 09/04/2020 Anemia in chronic kidney disease 09/04/2020 Secondary hyperparathyroidism of renal origin 09/05/19 21 Encounters Date Type Specialty Care Team Description 02/28/2022 Orders Only NephLandon Stewart MD 02/21/2022 Orders Only NephLandon Stewart MD 02/21/2022 Treatment Landon Calvert MD 02/14/2022 Orders Only Landon Kemp MD 02/07/2022 Orders Only Landon Kemp MD 02/07/2022 Treatment Landon Calvert MD 02/05/2022 Telephone NephAlma Mcdowell RN ESRD Pos t-Discharge 02/02/2022 Treatment Adriane Robles MA 01/31/2022 Orders Only NephLandon Stewart MD 01/24/2022 Orders Only Landon Kemp MD 01/24/2022 Treatment Landon Calvert MD 01/17/2022 Orders Only NephLandon Stewart MD 01/10/2022 Orders Only Landon Kemp MD 01/10/2022 Treatment Landon Calvert MD 01/03/2022 Orders Only NephLandon Stewart MD 2021 Orders Only NephLandon Stewart MD 2021 Treatment Landon Calvert MD 12/20/2021 Orders Only NephLandon Stewart MD 12/13/2021 Orders Only NephLandon Stewart MD 12/06/2021 Orders Only NephLandon Stewart MD 12/06/2021 Treatment Landon Calvert MD from Last 3 Months Family History Medical History Relation Comments Hypertension Father Hypertension Mother Kidney disease Sibling 1 Hypertension Sibling 2 Relation Status Comments Father Mother Sibling 1 Sibling 2 Social History Tobacco Use Types Packs/Day Years Used Date Smoking Tobacco: Smoker, Current Cigarettes Started: 07/01/1976 Status Unknown Sex Assigned at Date Recorded Not on file Last Filed Vital Signs Vital Sign Reading Time Taken Comments Blood Pressure 130/80 09/05/2020 1:08 PM MANAGEMENT RECRUITER Pulse 87 09/05/2020 1:08 PM MANAGEMENT RECRUITER Temperature 36.6 ??C (97.8 ??F) 06/02/2020 12:00 PM MANAGEMENT RECRUITER Respiratory Rate - - Oxygen Saturation 98% 09/05/2020 1:08 PM MANAGEMENT RECRUITER Inhaled Oxygen Concentration - - Weight 48.5 kg (107 lb) 09/05/2020 1:08 PM MANAGEMENT RECRUITER Height 160 cm (5' 3) 09/05/2020 1:08 PM MANAGEMENT RECRUITER Body Mass Index 18.95 09/05/2020 1:08 PM MANAGEMENT RECRUITER Plan of Treatment Health Maintenance Due Date Last Done Comments Hepatitis B Vaccine (1 of 3 - Risk Recombivax 3-dose 1961 series) Pneumococcal Vaccine: 65+ Years (2 - PCV) 11/03/20112010 Influenza Vaccine (#1) 2022 Procedures Procedure Name Priority Date/Time Associated Diagnosis Comme nts HEMATOLOGY Routine 02/28/2022 Results for thi s procedure are i n the results section . HEMATOLOGY Routine 02/21/2022 Results for thi s procedure are i n the results section . CHEMISTRY Routine 02/21/2022 Results for thi s procedure are i n the results section . CHEMISTRY Routine 02/21/2022 Results for thi s procedure are i n the results section . HEMATOLOGY Routine 02/14/2022 Results for thi s procedure are i n the results section . HEMATOLOGY Routine 02/07/2022 Results for thi s procedure are i n the results section . SPECTRA [facility] LAB RESULTS Routine 01/31/2022 Resul ts for this procedure are i n the results section . IMMUNO CHEMISTRY Routine 01/31/2022 Results for this procedure are i n the results section . HD KINETICS Routine 01/31/2022 Results for thi [...] n the results section . HEMATOLOGY Routine 01/24/2022 Results for thi s procedure are i n the results section . HEMATOLOGY Routine 01/17/2022 Results for thi s procedure are i n the results section . HEMATOLOGY Routine 01/10/2022 Results for thi s procedure are i n the results section . SPECTRA CELIA LAB RESULTS Routine 01/03/2022 Resul ts for this procedure are i n the results section . HD KINETICS Routine 01/03/2022 Results for thi s procedure are i n the results section . POST CHEMISTRY Routine 01/03/2022 Results for t his procedure are i n the results section . IMMUNO CHEMISTRY Routine 01/03/2022 Results for this procedure are i n the results section . CHEMISTRY Routine 01/03/2022 Results for thi s procedure are i n the results section . HEMATOLOGY Routine 01/03/2022 Results for thi s procedure are i n the results section . SPECIAL CHEMISTRY Routine 01/03/2022 Results fo r this procedure are i n the results section . CHEMISTRY Routine 01/03/2022 Results for thi s procedure are i n the results section . HEMATOLOGY Routine 2021 Results for thi s procedure are i n the results section . HEMATOLOGY Routine 12/20/2021 Results for thi s procedure are i n the results section . HEMATOLOGY Routine 12/13/2021 Results for thi s procedure are i n the results section . HEMATOLOGY Routine 12/06/2021 Results for thi s procedure are i n the results section . from Last 3 Months Results (ABNORMAL) HEMATOLOGY (02/28/2022)Only the most recent of13 resultswithin the time period is included. Analysis Performed At Patho logist Time Signature Hemoglobin 11.1 (L) 12.0 - APS SPECTRA 16.0 g/dL [facility] Hemoglobin x 3 33.3 (L) 36.0 - APS [facility]PECTRA 48.0 % [facility] Specimen (Source) Anatomical Collection Method Collection Time Re ceived Time Location / / Volume Laterality 02/28/2022 03/01/2022 4:01 AM CDT Narrative APS SPECTRA [facility] - 03/01/2022 Unless otherwise specified, test(s) performed at: [facility], [address] [place] [address], [place] [address] SURGICAL TRAINING SPECIALIST: Vicente Flores M.D., Ph.D For any questions, please call customer service at FREQUENCY:OTHER Resulting Agency Comment Specimen source: Blood Landon Calvert MD LAB BLOOD ORDERABLES Performing Organization Address City/[facility] Phon e Number APS SPECTRA [facility] (ABNORMAL) Spectrae Chemistry (02/21/2022)Only the most recent of5 resultswithin the time period is included. P athologist Signature PTH 607 (H) 16 - 80 APS SPECTRA pg/mL [facility] Specimen (Source) Anatomical Collection Method Collection Time Re ceived Time Location / / Volume Laterality 02/21/2022 02/22/2022 10:2 4 AM CDT Narrative APS SPECTRA [facility] - 02/22/2022 Unless otherwise specified, test(s) performed at: [facility], [address] [place] [address], [place] [address] SURGICAL TRAINING SPECIALIST: Vicente Flores M.D., Ph.D For any questions, please call customer service at FREQUENCY:OTHER Resulting Agency Comment Specimen source: Plasma Landon Calvert MD LAB BLOOD ORDERABLES Performing Organization Address City/[facility] Phon e Number APS SPECTRA [facility] (ABNORMAL) HD KINETICS (01/31/2022)Only the most recent of2 resultswithin the time period is included. athologist Signature % Urea 84 (H) 65 - 80 % APS [facility]PECT[facility] Reduction [facility] Specimen (Source) Anatomical Collection Method Collection Time Re ceived Time Location / / Volume Laterality 01/31/2022 02/01/2022 3:50 AM CDT Resulting Agency Comment Specimen source: Plasma Landon Calvert MD LAB BLOOD ORDERABLES Performing Organization Address City/State/[facility] Code Phon e Number APS SPECTRA [facility] POST CHEMISTRY (01/31/2022)Only the most recent of2 resultswithin the time period is included. athologist Signature BUN Post 13 6 - 19 APS SPECTRA Dialysis mg/dL [facility] Specimen (Source) Anatomical Collection Method Collection Time Re ceived Time Location / / Volume Laterality 01/31/2022 02/01/2022 3:50 AM CDT Narrative APS SPECTRA [facility] - 02/01/2022 Unless otherwise specified, test(s) performed at: [facility], [address] [place] [address], [place] [address] SURGICAL TRAINING SPECIALIST: Vicente Flores M.D., Ph.D For any questions, please call customer service at FREQUENCY:MONTHLY Resulting Agency Comment Specimen source: Plasma Landon Calvert MD LAB BLOOD ORDERABLES Performing Organization Address [facility] Phon e Number APS SPECTRA [facility] IMMUNO CHEMISTRY (01/31/2022)Only the most recent of2 resultswithin the time period is included. athologist Signature Hep B Surface Negative Negative [...] 02/01/2022 Unless otherwise specified, test(s) performed at: [facility], [address] [employer] [place] [address] SURGICAL TRAINING SPECIALIST: Vicente Flores M.D., Ph.D For any questions, please call customer service at FREQUENCY:MONTHLY Resulting Agency Comment Specimen source: Plasma Landon Calvert MD LAB BLOOD ORDERABLES Performing Organization Address City/[facility] Phon e Number APS SPECTRA [facility] Spectra [facility] Lab Results (01/31/2022)Only the most recent of2 resultswithin the time period is included. P athologist Signature eKt/V 1.91 [facility] ([place]) eKt/V Gotch 1.95 [facility] spKt/V Gotch 2.32 [facility] eNPCR 1.56 [facility] spKt/V 2.23 [facility] (Daugirdas II) eKdrt/V 1.95 [facility] nPCR_HD 1.68 [facility] PCR 67.63 [facility] Specimen (Source) Anatomical Location Collection Method / Collectio n Time Received Time / Laterality Volume 01/31/2022 01/31/2022 Celia Ordering Provider LAB BLOOD ORDERABLES Performing Organization Address [facility] Phon e Number [facility] (ABNORMAL) SPECIAL CHEMISTRY (01/03/2022) P athologist Signature Vitamin D, 14.9 (L) 19.9 - [facility] 1,25-Dihydroxy 79.3 pg/mL [facility] Specimen (Source) Anatomical Collection Method Collection Time Re ceived Time Location / / Volume Laterality 01/03/2022 01/05/2022 3:45 AM CDT Narrative APS SPECTRA [facility] - 01/05/2022 Unless otherwise specified, test(s) performed at: [facility], [facility] [employer] [place] [address] SURGICAL TRAINING SPECIALIST: Vicente Flores M.D., Ph.D For any questions, please call customer service at FREQUENCY:MONTHLY Resulting Agency Comment Specimen source: Serum Landon Calvert MD LAB BLOOD BANK TEST ORDERABL ES Performing Organization Address City/State/ZIP Code Phon e Number APS SPECTRA [facility] from Last 3 Months Insurance Payer Benefit Plan / Subscriber ID Effective Dates Phone Addre ss Type Group [facility] MEDICARE [facility] WELLMED [id number] 2020-Presen [phone] [id number] MCR ADV t [address] [place], ([id number]) [place] [address] [facility] MEDICARE AARP MEDICARE [id number] 2021-Prese [phone] [address] [address] COMPLETE nt 0 [facility] ([id number]) [place] [address] Zamzam Garibay Personal/Famil Self 1940 [id number] [address] [place] [address] Care Teams Survey Party Chief Relationship Specialty Start Date End Date Fabian Arias MD PCP - General Family Medicine 09/04/[address] [place] [address]
--- OUTSIDE RECORDS SUMMARY | 2022-03-08 08:40 | XMS_ITS | Encounter Summary ---
:1940 Author Organization [facility] Address [address] [place] [address] Care Team Providers Name Role Phone Fabian Arias MD Primary Care Provider Encounter Details Date Type Department Care Team Description 11/01/2021 Treatment [facility] Landon Zarate MD [address] [place] [address] [place], [place] [phone] (Wo rk) Social History Tobacco Use Types Packs/Day Years Used Date Smoking Tobacco: Smoker, Current Cigarettes Started: 07/01/1976 Status Unknown Sex Assigned at Date Recorded Not on file documented as of this encounter Miscellaneous Notes Dialysis Note - Landon Calvert MD - 11/01/2021 8:57 AM CDT Date: November 01, 2021 Patient Name: Zamzam Garibay : 1940 Chart #: [id number] Sex: F This patient was personally seen for a complete visit as part of routine monthly dialysis care. A review of the dialysis treatment, blood pressure, estimated dry weight and recent lab values was made. These were discussed with the patient and staff as necessary. Treatment Data for 11/01/2021 started at:6:12 AM Dialyzer: 160NRe Optiflux Na: 137 mEq/L Bicarb: 33 mEq/L Dialysate: 3.0 K, 2.25 Ca, 1.0 Mg, 100 Dextrose (G3231) Dialysate/Machine Temp (prescribed): 37 C Dialysate/Machine Temp (actual): 37 C BFR (prescribed): 400 BFR (actual): n/a Prescribed time: 03:30 EDW: 48 kg Access Type: Active (In Use):CVCatheter-Tunneled/Chest Pre Dialysis Vitals (for 11/01/2021 6:04 AM ) Pre BP (sit): 177/94 Pre Wt: 51.3 kg Temp: 95.9 F Post Dialysis Vitals (for 10/30/2021 9:42 AM ) Post BP (sit): 158/76 Post Wt: 49.5 kg Current Dialysis Vitals (for 11/01/2021 8:32 AM ) BP (sit): 150/67 AP(-) / RATINGS ANALYST: n/a Pulse: 79 Chairside data as of 11/01/2021 8:32 AM Last 3 Treatments 10/30/2021 10/27/2021 10/25/2021 EDW (kg) 48 48 48 Weight Pre (kg) 51.5 51.9 51 Weight Post (kg) 49.5 49.4 48.5 Dialytic Weight Loss (kg) -2 -2.5 -2.5 EDW Deviation (kg) 1.5 1.4 0.5 BP Sit Pre 176/84 178/89 190/94 BP Sit Post 158/76 157/87 163/85 UF Rate (mL/kg/hr) 12 15 15 Prescribed BFR 400 400 400 Average Delivered BFR 410 410 410 Prescribed Treatment Time 03:30 03:30 03:30 Actual Treatment Time 03:30 03:31 03:30 Treatment Medication Orders Medication Sig Start [...] units IVP Every Treatment 07/05/2021 07/04/2022 Mircera 100 mcg IVP Every 2 weeks 11/01/2021 10/31/2022 Vitamin D (Calcitriol) Oral 1.0 mcg ORAL Every Treatment 06/05/2021 06/04/2022 ENVIRONMENTAL FIELD PROFESSIONAL: Landon Calvert MD LOCATION: [phone] SCHEDULE: - 2nd Shift EDW: kg. DIALYZER: HD DURATION: NEEDLE SIZE: ANTICOAG: BATH: QB: ml/min QD: ml/min Subjective Tolerating dialysis well. 11/01/21: She feels well with no new [...] She has access appt on 10/03 at [facility]. No concerns today. 09/06/21: She is 9 [...] This is Jaz's first day back from [facility]. She says she had no symptoms, but her son tested her when she was fatigued and had fever. She reports now having no symptoms at all. She says she feels great. Fluid gains have been better. 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 Can't remove [...] HD. 04/26/21: She was hospitalized briefly at [place] for dyspnea, no pneumonia but rather related to CHF. She saw cardiology in follow-up in clinic, lisinopril and metoprolol and lasix with UF on HD to dry weight recommended. She is not interested in home dialysis, discussed today. 04/12/21: Patient new to me. She followed with cosmetics and toiletries salesperson in [facility], did not follow-up,crashed into dialysis in January [...] bilaterally. Cardiovascular - Regular rate. Regular rhythm. Edema - No leg edema. Access - [...] mouth once a day 04/12/2021 RenaPlex-D (vit b,z-dz-abky-selen-vit d3-e) 800 mcg-12.5 mg-2,000 unit tablet Take [...] (08/07/21) 78 (07/05/21) 83 (05/31/21) spKt/V Gotch 2.21 (10/04/21) 2.27 (08/30/21) 1.85 (08/07/21) 2.12 (05/31/21) 2.1 (05/03/21) eKdrt/V 1.86 (10/04/21) 1.91 (08/30/21) 1.57 (08/07/21) 1.79 (05/31/21) 1.78 (05/03/21) spKt/V (Daugirdas II) 2.1700 (10/04/21) 2.2200 (08/30/21) 1.9000 (08/07/21) 1.7200 (07/05/21) 2.1200 (05/31/21) Dialysis is adequate. Achieves prescribed time - Yes Achieves prescribed frequency - Yes Continue current prescription. 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 Will need new access placement. She is being set up for vein mapping and surgeon consult Anemia Assessment HEMOGLOBIN (G/DL) IN BLOOD g/dL 9.5 (10/25/21) 9.4 (10/18/21) 9.2 (10/11/21) 10.1 (10/04/21) 9.6 (09/27/21) PLATELETS 1000/mcL 299 (08/30/21) 329 (08/02/21) 390 (07/05/21) 245 (05/31/21) 236 (05/03/21) IRON SATURATION % 11 (10/04/21) 16 (08/30/21) 18 (08/02/21) 20 (07/05/21) 18 (05/31/21) FERRITIN ng/mL 28 (10/18/21) 39 (10/04/21) 293 [...] intake. Potassium is at goal. Bicarbonate is below goal. Continue same bicarbonate in dialysate. Increased bicarb, repeat bicarb today Bone and Mineral Metabolism Assessment Calcium mg/dL [...] above goal. Intact PTH is at goal. Turbo Electric Operator will adjust binders and vitamin D per protocol and continue to provide dietary education. Needs 100% compliance with binders and following renal diet Cardiovascular Assessment Blood pressures reviewed and are acceptable. Intradialytic weight gains are too high. Estimated dry weight is too low, will increase. Continue same cardiovascular medications. Discussed fluid gains and salt intake. Increase EDW to 48.5 Kg (0.5 Kg) as this is lowest wt she is achieving and she has no orthopnea or dyspnea or edema) Transplant Status: Patient is not a candidate. age and co-morbidities Resuscitation Status Stable dialysis Increase EDW by 0.5 Kg To see specialist about acid reflux/cough at night Need consistent low IDWG to avoid fluid retention, especially with CHF. Discussed with her today Monthly labs being drawn today Landon Calvert MD [ Signed And locked electronically On 11/01/2021 at 09:01:09 AM ] Transcribed: Landon Calvert ( 11/01/2021 ) documented in this encounter Plan of Treatment Not on filedocumented as of this encounter Visit Diagnoses Not on filedocumented in this encounter Care Teams Director Of Personnel Relationship Specialty Start Date End Date Fabian Arias MD PCP - General Family Medicine 09/04/[address] [place] [address] documented as of this encounter
--- OUTSIDE RECORDS SUMMARY | 2022-03-08 08:40 | XMS_ITS | Encounter Summary ---
:1940 Author Organization [facility] Address [address] [place] [address] Care Team Providers Name Role Phone Fabian Arias MD Primary Care Provider Encounter Details Date Type Department Care Team Description 11/22/2021 Treatment [facility] Landon Zarate MD [address] [place] [address] [place], [place] [phone] (Wo rk) Social History Tobacco Use Types Packs/Day Years Used Date Smoking Tobacco: Smoker, Current Cigarettes Started: 07/01/1976 Status Unknown Sex Assigned at Date Recorded Not on file documented as of this encounter Miscellaneous Notes Dialysis Note - Landon Calvert MD - 11/22/2021 10:13 AM CDT Date: November 22, 2021 Patient Name: Zamzam Garibay : 1940 Chart #: [id number] Sex: F This patient was personally seen for a basic visit as part of routine weekly dialysis care. A reviewof the dialysis treatment, blood pressure, estimated dry weight and recent lab values was made. These were discussed with the patient and staff as necessary. Treatment Data for 11/22/2021 started at:6:10 AM Dialyzer: 160NRe Optiflux Na: 137 mEq/L Bicarb: 33 mEq/L Dialysate: 3.0 K, 2.25 Ca, 1.0 Mg, 100 Dextrose (G3231) Dialysate/Machine Temp (prescribed): 37 C Dialysate/Machine Temp (actual): 36.9 C BFR (prescribed): 400 BFR (actual): 0 Prescribed time: 03:30 EDW: 48.5 kg Access Type: Active (In Use):CVCatheter-Tunneled/Chest Pre Dialysis Vitals (for 11/22/2021 6:01 AM ) Pre BP (sit): 184/97 Pre Wt: 52 kg Temp: 95 F Post Dialysis Vitals (for 11/20/2021 9:43 AM ) Post BP (sit): 186/94 Post Wt: 50.3 kg Current Dialysis Vitals (for 11/22/2021 9:40 AM ) BP (sit): n/a AP(-) / BICYCLE I ASSEMBLER: 10 Pulse: n/a Chairside data as of 11/22/2021 9:40 AM Last 3 Treatments 11/20/2021 11/17/2021 11/15/2021 EDW (kg) 48.5 48.5 48.5 Weight Pre (kg) 52.3 51.6 51.8 Weight Post (kg) 50.3 49.9 49.5 Dialytic Weight Loss (kg) -2 -1.7 -2.3 EDW Deviation (kg) 1.8 1.4 1.0 BP Sit Pre 220/105 184/91 193/96 BP Sit Post 186/94 160/74 180/95 UF Rate (mL/kg/hr) 12 10 14 Prescribed BFR 400 400 400 Average Delivered BFR 410 460 410 Prescribed Treatment Time 03:30 03:30 03:30 Actual Treatment Time 03:30 03:27 03:30 Treatment Medication Orders Medication Sig Start [...] units IVP Every Treatment 07/05/2021 07/04/2022 Mircera 150 mcg IVP Every 2 weeks 11/22/2021 11/21/2022 COMMUNICATIONS ADVISOR: Landon Calvert MD LOCATION: [facility] [phone] SCHEDULE: -- 2nd Shift ACCESS: EDW: kg. DIALYZER: HD DURATION: NEEDLE SIZE: ANTICOAG: BATH: QB: ml/min QD: ml/min Subjective Tolerating dialysis well. 11/22: Doing well, but fluid gains still high at times. She is getting out more, seeing her daughter and grandchild up in the [facility]. No symptoms of fluid overload, denies dyspnea [...] She has access appt on 10/03 at [facility]. No concerns today. 09/06/21: She is 9 [...] This is Jaz's first day back from [facility]. She says she had no symptoms, but her son tested her when she was fatigued and had fever. She reports now having no symptoms at all. She says she feels great. Fluid gains have been better. Only complaint is acid reflux with once weekly vomiting up acid in her mouth and she says she used to be on acid demurrage man but she hasn't had it [place] in [place] (despite it being on her med list [...] in the hospital overnight last month at [place], SOB resolved with fluid removal. Can't remove [...] HD. 04/26/21: She was hospitalized briefly at [place] for dyspnea, no pneumonia but rather related to CHF. She saw cardiology in follow-up in clinic, lisinopril and metoprolol and lasix with UF on HD to dry weight recommended. She is not interested in home dialysis, discussed today. 04/12/21: Patient new to me. She followed with band saw runner in [facility], did not follow-up,crashed into dialysis in [...] Respiratory - Clear to auscultation bilaterally. Cardiovascular Regular rate. Regular rhythm. No murmur heard. Edema - No leg edema. Access - PCAD c/d/i AVF good t/b but dives deep early and tributaries present Medication List Medication Sig Start Date B [...] mouth once a day 04/12/2021 RenaPlex-D (vit b,h-pp-qzhx-selen-vit d3-e) 800 mcg-12.5 mg-2,000 unit tablet Take 1 tablet by mouthonce a day trazodone 50 mg tablet Take 1 tablet by mouth every night as needed 04/12/2021 Allergy List Allergen Reaction Reaction Severity Onset Date Venofer Skin rash Medications reviewed and no changes were made. BUN mg/dL 64 (11/01/21) 61 (10/04/21) 61 (08/30/21) 93 (08/07/21) 80 (08/02/21) UREA NITROGEN (MG/DL) IN SER/PLAS - POST DIALYSIS mg/dL 11 (11/01/21) 10 (10/04/21) 10 (08/30/21) 19 (08/07/21) 8 (07/05/21) URR % 83 (11/01/21) 84 (10/04/21) 84 (08/30/21) 80 (08/07/21) 78 (07/05/21) spKt/V Gotch 2.12 (11/01/21) 2.21 (10/04/21) 2.27 (08/30/21) 1.85 (08/07/21) 2.12 (05/31/21) eKdrt/V 1.79 (11/01/21) 1.86 (10/04/21) 1.91 (08/30/21) 1.57 (08/07/21) 1.79 (05/31/21) spKt/V (Daugirdas II) 2.1000 (11/01/21) 2.1700 (10/04/21) 2.2200 (08/30/21) 1.9000 (08/07/21) 1.7200 (07/05/21) HEMOGLOBIN (G/DL) IN BLOOD g/dL 9.4 (11/15/21) 9.6 (11/08/21) 10.4 (11/01/21) 9.5 (10/25/21) 9.4 (10/18/21) PLATELETS 1000/mcL 352 (11/01/21) 299 (08/30/21) 329 (08/02/21) 390 (07/05/21) 245 (05/31/21) IRON SATURATION % 14 (11/01/21) 11 (10/04/21) 16 (08/30/21) 18 (08/02/21) 20 (07/05/21) FERRITIN ng/mL 28 (10/18/21) 39 (10/04/21) 293 (07/05/21) 250 (05/10/21) ALBUMIN (G/DL) g/dL 4.0 (11/01/21) 3.8 (10/04/21) 4.0 (08/30/21) Sodium mEq/L 136 (11/01/21) 138 (10/04/21) 142 (08/30/21) POTASSIUM (MMOL/L) IN SER/PLAS mEq/L 5.2 (11/01/21) 5.1 (10/04/21) 5.2 (08/30/21) BICARBONATE (CO2) mEq/L 23 (11/01/21) 13 (10/04/21) 21 (08/30/21) BUN/CREATININE (MASS RATIO) IN SER/PLAS 7.2 (11/01/21) 7.6 (10/04/21) 8.1 (08/30/21) Calcium mg/dL 10.3 (11/08/21) 10.3 (11/06/21) 10.2 (11/01/21) Calcium Phos Product 75 (11/01/21) 78 (10/04/21) 72 (08/30/21) CALCIUM (MG/DL) CORRECTED FOR ALBUMIN IN SER/PLAS mg/dL 10.2 (11/01/21) 9.8 (10/04/21) 9.7 (08/30/21) PHOSPHATE (MG/DL) IN SER/PLAS mg/dL 7.4 (11/01/21) 8.1 (10/04/21) 7.4 (08/30/21) IPTH pg/mL 138 (11/08/21) 232 (10/04/21) 254 (07/05/21) Vascular Access Assessment: Type of access: Catheterand LUE AVF 11/01/21: I will call [facility] for update on whether they have received report from her AVF surgery and plan moving forward for access revision/creation [facility] September 2021, need report [facility] appt 08/2021: LUE AVF lower arm placed in [place], 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 Will need new access placement. She is being set up for vein mapping and surgeon consult Impression and Plan Stable dialysis, no changes today Discussed importance of lowering fluid gains consistently Will start one 17g needle in access as directed by access center. I am not optimistic that we will be able to use 2 needles without issues Landon Calvert MD [ Signed And locked electronically On 11/22/2021 at 10:14:44 AM ] Transcribed: Landon Calvert ( 11/22/2021 ) documented in this encounter Plan of Treatment Not on filedocumented as of this encounter Visit Diagnoses Not on filedocumented in this encounter Care Teams Brake Repairer Bus Relationship Specialty Start Date End Date Fabian Arias MD PCP - General Family Medicine 09/04/20 [address] [place] [address] documented as of this encounter
--- OUTSIDE RECORDS SUMMARY | 2022-03-08 08:40 | XMS_ITS | Encounter Summary ---
:1940 Author Organization [facility] Address [address] [place] [address] Care Team Providers Name Role Phone Fabian Arias MD Primary Care Provider Encounter Details Date Type Department Care Team Description 10/11/2021 Orders Only [facility] f Landon Zarate MD [phone] [place] [address] [place], [place] [phone] (Wo rk) Social History Tobacco Use Types Packs/Day Years Used Date Smoking Tobacco: Smoker, Current Cigarettes Started: 07/01/1976 Status Unknown Sex Assigned at Date Recorded Not on file documented as of this encounter Plan of Treatment Not on filedocumented as of this encounter Procedures Procedure Name Priority Date/Time Associated Diagnosis Comme nts HEMATOLOGY Routine 10/11/2021 Results for thi s procedure are in the resu lts section. documented in this encounter Results (ABNORMAL) HEMATOLOGY (10/11/2021) Analysis Performed At Patho logist Time Signature Hemoglobin 9.2 (L) 12.0 - [facility] 16.0 g/dL [facility] Hemoglobin x 3 27.6 (L) 36.0 - [facility] 48.0 % [facility] Specimen (Source) Anatomical Collection Method Collection Time Re ceived Time Location / / Volume Laterality 10/11/2021 10/12/2021 9:05 AM CDT Narrative [facility] - 10/12/2021 Unless otherwise specified, test(s) performed at: [facility], [address] [place] [id number] MANAGER OF SUSTAINABILITY: Carl Paula M.D. For any questions, please call customer service at FREQUENCY:OTHER Resulting Agency Comment Specimen source: Blood Landon Calvert MD LAB BLOOD ORDERABLES Performing Organization Address City/State/ZIP Code Phon e Number [facility] documented in this encounter Visit Diagnoses Not on filedocumented in this encounter Care Teams Director Business Development Relationship Specialty Start Date End Date Fabian Arias MD PCP - General Family Medicine 09/04/[address] [place] [address] documented as of this encounter
--- OUTSIDE RECORDS SUMMARY | 2022-03-08 08:40 | XMS_ITS | Encounter Summary ---
:1940 Author Organization [facility] Address [address] [place] [address] Care Team Providers Name Role Phone Fabian Arias MD Primary Care Provider Encounter Details Date Type Department Care Team Description 01/10/2022 Treatment [facility] f Landon Zarate MD [address] [place] [address] [place], [place] [phone] (Wo rk) Social History Tobacco Use Types Packs/Day Years Used Date Smoking Tobacco: Smoker, Current Cigarettes Started: 07/01/1976 Status Unknown Sex Assigned at Date Recorded Not on file documented as of this encounter Miscellaneous Notes Dialysis Note - Landon Calvert MD - 01/10/2022 10:24 AM CDT Date: Jan 10, 2022 Patient Name: Zamzam Garibay : 1940 Chart #: [id number] Sex: F This patient was personally seen for a complete visit as part of routine monthly dialysis care. A review of the dialysis treatment, blood pressure, estimated dry weight and recent lab values was made. These were discussed with the patient and staff as necessary. TUBE OPERATOR: Landon Calvert MD LOCATION: [facility] [phone] SCHEDULE: -W- 2nd Shift EDW: kg. DIALYZER: HD DURATION: NEEDLE SIZE: ANTICOAG: BATH: QB: ml/min QD: ml/min Subjective Tolerating dialysis well. 01/10/22: Her BP has been markedly elevated, persistently over dry weight and now 3+ Kg above dry weight post-Tx on Saturday. She does not lay flat due to SOB but this is chronic, denies dyspnea or other symptoms at this time. 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 12/06/21: She says she feels well. [...] her daughter and grandchild up in the [facility]. No symptoms of fluid overload, denies dyspnea [...] She has access appt on 10/03 at [facility]. No concerns today. 09/06/21: She is 9 [...] This is Jaz's first day back from [facility] isolation unit. She says she had no symptoms, but her son tested her when she was fatigued and had fever. She reports now having no symptoms at all. She says she feels great. Fluid gains have been better. 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 Can't remove [...] HD. 04/26/21: She was hospitalized briefly at [place] for dyspnea, no pneumonia but rather related to CHF. She saw cardiology in follow-up in clinic, lisinopril and metoprolol and lasix with UF on HD to dry weight recommended. She is not interested in home dialysis, discussed today. 04/12/21: Patient new to me. She followed with denitrator operator in [facility], did not follow-up,crashed into dialysis [...] murmur heard. Edema - No leg edema. upper legs slight edema Access - PCAD c/d/i, AVF LUE unchanged/underdeveloped [...] directed. 30 min prior to dialysis lisinopril 2.5 mg tablet Take mg by mouth every morning. Take 2.5mg daily in the morning. 04/20/2021 metoprolol succinate tablet extended release 24 hr 12.5 tablet Take tablet at bedtime. 12.5mg daily at night. 04/20/2021 omeprazole 20 mg capsule,delayed release(DR/EC) Take 1 capsule by mouth once a day 04/12/2021 RenaPlex-D (vit b,d-rg-blxs-selen-vit d3-e) 800 mcg-12.5 mg-2,000 unit tablet Take 1 tablet by mouthonce a day trazodone 50 mg tablet Take 1 tablet by mouth every night as needed 04/12/2021 Allergy List Allergen Reaction Reaction Severity Onset Date Venofer Skin rash Medications reviewed and no changes were made. Treatment and Adequacy Assessment BUN mg/dL 62 (01/03/22) 56 (11/29/21) 64 (11/01/21) 61 (10/04/21) 61 (08/30/21) UREA NITROGEN (MG/DL) IN SER/PLAS - POST DIALYSIS mg/dL 11 (01/03/22) 11 (11/29/21) 11 (11/01/21) 10 (10/04/21) 10 (08/30/21) URR % 82 (01/03/22) 80 (11/29/21) 83 (11/01/21) 84 (10/04/21) 84 (08/30/21) spKt/V Gotch 2.09 (01/03/22) 1.97 (11/29/21) 2.12 (11/01/21) 2.21 (10/04/21) 2.27 (08/30/21) eKdrt/V 1.76 (01/03/22) 1.66 (11/29/21) 1.79 (11/01/21) 1.86 (10/04/21) 1.91 (08/30/21) spKt/V (Daugirdas II) 2.0500 (01/03/22) 1.9300 (11/29/21) 2.1000 (11/01/21) 2.1700 (10/04/21) 2.2200 (08/30/21) Dialysis is adequate. Achieves prescribed time - Yes Achieves prescribed frequency - Yes Continue current prescription. Vascular Access Assessment Type of access: Catheterand LUE AVF New access surgery planned in December 2021 12/06/21: Attempted using AVF with one 17g needle, infiltrated, now pulling clots. Does not seem usable to me based on this and how it feels. 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 Will need new access placement. She is being set up for vein mapping and surgeon consult Anemia Assessment HEMOGLOBIN (G/DL) IN BLOOD g/dL 11.6 (01/03/22) 11.5 (12/27/21) 9.5 (12/20/21) 8.9 (12/13/21) 8.0 (12/06/21) PLATELETS 1000/mcL 340 (01/03/22) 358 (11/29/21) 352 (11/01/21) 299 (08/30/21) 329 (08/02/21) IRON SATURATION % 6 (11/29/21) 14 (11/01/21) 11 (10/04/21) 16 (08/30/21) 18 (08/02/21) FERRITIN ng/mL 214 (01/03/22) 28 (10/18/21) 39 (10/04/21) 293 (07/05/21) 250 (05/10/21) Hemoglobin is above goal. Iron Saturation is below goal. Ferritin is below goal. Will adjust CARIE and intravenous iron per protocol. Very responsive to Ferrilicit, continue iron but hold CARIE with Hgb >11 Nutritional and Metabolic Assessment ALBUMIN (G/DL) g/dL 4.1 (01/03/22) 3.8 (11/29/21) 4.0 (11/01/21) 3.8 (10/04/21) 4.0 (08/30/21) Sodium mEq/L 141 (01/03/22) 142 (11/29/21) 136 (11/01/21) 138 (10/04/21) 142 (08/30/21) POTASSIUM (MMOL/L) IN SER/PLAS mEq/L 4.7 (01/03/22) 4.3 (11/29/21) 5.2 (11/01/21) 5.1 (10/04/21) 5.2 (08/30/21) BICARBONATE (CO2) mEq/L 24 (01/03/22) 23 (11/29/21) 23 (11/01/21) 13 (10/04/21) 21 (08/30/21) Albumin is at goal. Encourage high-biological value protein intake. Potassium is at goal. Bicarbonate is at goal. Continue same bicarbonate in dialysate. Bone and Mineral Metabolism Assessment CALCIUM mg/dL 8.9 (01/03/22) 9.1 (11/29/21) 10.3 (11/08/21) 10.3 (11/06/21) 10.2 (11/01/21) CALCIUM (MG/DL) CORRECTED FOR ALBUMIN IN SER/PLAS mg/dL 8.8 (01/03/22) 9.3 (11/29/21) 10.2 (11/01/21) 9.8 (10/04/21) 9.7 (08/30/21) PHOSPHATE (MG/DL) IN SER/PLAS mg/dL 7.6 (01/03/22) 6.7 (11/29/21) 7.4 (11/01/21) 8.1 (10/04/21) 7.4 (08/30/21) CALCIUM PHOSPHORUS PRODUCT, COR 67 (01/03/22) 62 (11/29/21) 75 (11/01/21) 79 (10/04/21) 72 (08/30/21) IPTH pg/mL 684 (01/03/22) 138 (11/08/21) 232 (10/04/21) 254 (07/05/21) 493 (05/31/21) Corrected Calcium is at goal. Phosphorous is above goal. Intact PTH is above goal. Sdc Teacher will adjust binders and vitamin D per protocol and continue to provide dietary education. Needs 100% compliance with binders and following renal diet. Cardiovascular Assessment Blood pressures reviewed and are not at goal, see below. Intradialytic weight gains are too high. Estimated dry weight is appropriate. Continue same cardiovascular medications. Discussed fluid gains and salt intake, she will cut back a little on fluid (although she reports being VERY careful) and will decrease toast and make sure she buys all unsalted butter. But we are limited in UF with sudden hypotension with UF 2.5L or more and thus she will need extra treatment and we will look at a UF run on Saturday in the [facility] as do not work for her. I will also increaseher lisinopril today (double dose) as her BP is markedly elevated (although I think fluid is the major issue with her BP at this time) Transplant Status: Patient is not a candidate. age and co-morbidities Resuscitation Status Extra UF run on Sat will be arranged Discussed fluid and salt restriction, see above Discussed low phos and compliance with binders and timing of taking phos binding pills Access surgery scheduled at [facility] later this month, hope to get PCAD out soon when working arm access Landon Calvert MD [ Signed And locked electronically On 01/10/2022 at 10:30:00 AM ] Transcribed: Landon Calvert ( 01/10/2022 ) documented in this encounter Plan of Treatment Not on filedocumented as of this encounter Visit Diagnoses Not on filedocumented in this encounter Care Teams Hazardous Waste Management Specialist Relationship Specialty Start Date End Date Fabian Arias MD PCP - General Family Medicine 09/04/[address] [place] [phone] documented as of this encounter
--- OUTSIDE RECORDS SUMMARY | 2022-03-08 08:40 | XMS_ITS | Encounter Summary ---
:1940 Author Organization [facility] Address [address] [place] [address] Care Team Providers Name Role Phone Fabian Arias MD Primary Care Provider Encounter Details Date Type Department Care Team Description 01/03/2022 Orders Only [facility] O f Landon Zarate MD [phone] [place] [address] [place], [place] [phone] (Wo rk) Social History Tobacco Use Types Packs/Day Years Used Date Smoking Tobacco: Smoker, Current Cigarettes Started: 07/01/1976 Status Unknown Sex Assigned at Date Recorded Not on file documented as of this encounter Plan of Treatment Not on filedocumented as of this encounter Procedures Procedure Name Priority Date/Time Associated Diagnosis Comme nts HD KINETICS Routine 01/03/2022 Results for thi [...] this encounter Results Spectra [facility] Lab Results (01/03/2022) athologist Signature eNPCR 1.16 [facility] spKt/V Gotch 2.09 [facility] spKt/V 2.05 [facility] (Daugirdas II) eKdrt/V 1.76 [facility] PCR 51.40 [facility] eKt/V Gotch 1.76 [facility] eKt/V 1.76 [facility] ([place]) nPCR_HD 1.25 [facility] Specimen (Source) Anatomical Location Collection Method / Collectio n Time Received Time / Laterality Volume 01/03/2022 01/03/2022 Celia Ordering Provider LAB BLOOD ORDERABLES Performing Organization Address City/State/ZIP Code Phon e Number CELIA (ABNORMAL) HD KINETICS (01/03/2022) athologist [facility] % Urea 82 (H) 65 - 80 % APS SPECTRA Reduction [facility] Specimen (Source) Anatomical Collection Method Collection Time Re ceived Time Location / / Volume Laterality 01/03/2022 01/05/2022 3:58 PM CDT Resulting Agency Comment Specimen source: Plasma Landon Calvert MD LAB BLOOD ORDERABLES Performing Organization Address City/State/ZIP Code Phon e Number APS SPECTRA [facility] POST CHEMISTRY (01/03/2022) athologist [facility] BUN Post 11 6 - 19 APS SPECTRA Dialysis mg/dL [facility] Specimen (Source) Anatomical Collection Method Collection Time Re ceived Time Location / / Volume Laterality 01/03/2022 01/05/2022 3:58 PM CDT Narrative APS SPECTRA [facility] - 01/06/2022 Unless otherwise specified, test(s) performed at: [facility], [address] [place] [address], [place] [address] DELIVERY CREW MEMBER: Vicente Flores M.D., Ph.D For any questions, please call customer service at FREQUENCY:MONTHLY Resulting Agency Comment Specimen source: Plasma Landon Calvert MD LAB BLOOD ORDERABLES Performing Organization Address City/State/ZIP Code Phon e Number APS SPECTRA [facility] IMMUNO CHEMISTRY (01/03/2022) athologist Signature Hep B Surface Negative Negative [facility] Ag [facility] Hepatitis B 12 mIU/mL [facility] Surface Ab [facility] Comment: The anti-HBs (Hepatitis B surface antibo dy) is greater than or equal to 10 mIU/mL and implies immunity. The kemar ent has either had an antibody response to HBV vaccination, received a transfusion, or has recovered from HBV infection. For post-vaccination antibody testing guidelines for the general public, refer to MMWR Dece 2004/Vol.54 (No. 16); 07-23, and for healthcare workers, refer to MMWR June 19, 2013/Vol.62 (No. 10); -18. Reference Range: <10 mIU/mL ? Non-Immune >=10 mIU/mL ?Immune The magnitude of the measured result abo ve 10 mIU/mL is not indicative of the total amount of antibody present. Hep B Core Total Ab Negative Negative APS SPECTR A [facility] Comment: Hep B Core Ab, Total appears during the acute infection stage and remains reactive/positive throughout the recovery stage. The above test result was obtained using [employer] IM chemiluminescent method. Results obtained with different assay methods or kits cannot be used interchangeably. Specimen (Source) Anatomical Collection Method Collection Time Re ceived Time Location / / Volume Laterality 01/03/2022 01/05/2022 8:10 PM CDT Resulting Agency Comment Specimen source: Plasma Landon Calvert MD LAB BLOOD ORDERABLES Performing Organization Address City/State/ZIP Code Phon e Number APS SPECTRA [facility] (ABNORMAL) Spectrae Chemistry (01/03/2022) P athologist Signature PTH 684 (H) 16 - 80 APS SPECTRA pg/mL [facility] Specimen (Source) Anatomical Collection Method Collection Time Re ceived Time Location / / Volume Laterality 01/03/2022 01/05/2022 8:10 PM CDT Narrative APS SPECTRA [facility] - 01/06/2022 Unless otherwise specified, test(s) performed at: [facility], [address] [place] [address], [place] [address] DELIVERY CREW MEMBER: Vicente Flores M.D., Ph.D For any questions, please call customer service at FREQUENCY:MONTHLY Resulting Agency Comment Specimen source: Plasma Landon Calvert MD LAB BLOOD ORDERABLES Performing Organization Address City/State/ZIP Code Phon e Number APS SPECTRA [facility] (ABNORMAL) HEMATOLOGY (01/03/2022) Analysis Performed At Patho logist Time Signature WBC 5.75 4.80 - APS SPECTRA 10.80 [facility] 1000/mcL RBC 4.58 4.20 - APS SPECTRA 5.40 [facility] mill/mcL Hemoglobin 11.6 (L) 12.0 - APS SPECTRA 16.0 g/dL [facility] Hemoglobin x 3 34.8 (L) 36.0 - APS [facility]PECTRA 48.0 % [facility] Hematocrit 39.6 37.0 - APS [facility]RA 47.0 % [facility] MCV 86 80 - 100 APS SPECTRA fl [facility] MCH 25.3 (L) 27.0 - APS SPECTRA 31.0 pg [facility] MCHC 29.3 (L) 30.0 - APS [facility]RA 36.0 g/dL [facility] RDW 24.2 (H) 11.5 - APS SPECTRA 14.5 % [facility] Platelets 340 130 - 400 APS SPECTRA 1000/mcL [facility] Specimen (Source) Anatomical Collection Method Collection Time Re ceived Time Location / / Volume Laterality 01/03/2022 01/05/2022 4:23 PM CDT Narrative APS SPECTRA [facility] - 01/05/2022 Unless otherwise specified, test(s) performed at: [facility] [place] [address] DELIVERY CREW MEMBER: Vicente Flores M.D., Ph.D For any questions, please call customer service at FREQUENCY:MONTHLY Resulting Agency Comment Specimen source: Blood Landon Calvert MD LAB BLOOD ORDERABLES Performing Organization Address City/State/[facility] Code Phon e Number APS SPECTRA [facility] (ABNORMAL) SPECIAL CHEMISTRY (01/03/2022) P athologist Signature Vitamin D, 14.9 (L) 19.9 - APS SPECTRA 1,25-Dihydroxy 79.3 pg/mL [facility] Specimen (Source) Anatomical Collection Method Collection Time Re ceived Time Location / / Volume Laterality 01/03/2022 01/05/2022 3:45 AM CDT Narrative APS SPECTRA [facility] - 01/05/2022 Unless otherwise specified, test(s) performed at: [facility], [address] [place] [address] DELIVERY CREW MEMBER: Vicente Flores M.D., Ph.D For any questions, please call customer service at FREQUENCY:MONTHLY Resulting Agency Comment Specimen source: Serum Landon Calvert MD LAB BLOOD BANK TEST ORDERABL ES Performing Organization Address City/State/ZIP Code Phon e Number APS SPECTRA [facility] (ABNORMAL) Spectrae Chemistry (01/03/2022) [facility] gist Method Time Signature BUN 62 (H) 6 - 19 APS SPECTRA mg/dL [facility] Creatinine 7.88 (H) 0.60 - APS SPECTRA 1.30 mg/dL [facility] BUN/Creatinine 7.9 (L) 10.0 - APS SPECTRA Ratio 20.0 [facility] Sodium 141 136 - 145 APS [facility]PECTRA mEq/L [facility] Potassium 4.7 3.5 - 5.1 APS [facility]PECTRA mEq/L [facility] Chloride 100 96 - 108 APS [facility]PECTRA mEq/L [facility] Bicarbonate 24 20 - 31 APS SPECTRA (CO2) mEq/L [facility] Comment: Please note change in reference range. Calcium 8.9 8.7 - 10.4 mg/dL APS SPECTRA [facility] Comment: Please note change in reference range. Corrected Calcium 8.8 8.7 - 10.4 mg/dL APS S PECTRA [facility] Comment: Corrected Calcium is not equivalent to m easured Ionized Calcium. Phosphorus 7.6 (H) 2.6 - 4.5 mg/dL APS SPECTRA [facility] Calcium Phosphorus Product 68 (H) 0 - 54 APS SPECTRA [facility] Calcium Phosporus Product, Cor 67 (H) 0 - 54 APS SPECTRA [facility] Alkaline Phosphatase 59 35 - 104 U/L APS SP ECTRA [facility] Total Protein 6.6 6.0 - 8.5 g/dL APS SPECTRA [facility] Albumin 4.1 3.5 - 5.2 g/dL APS SPECTRA [facility] Globulin, Total 2.5 2.0 - 4.0 g/dL APS SPECT RA [facility] A/G Ratio 1.6 1.0 - 2.0 APS SPECTRA [facility] Magnesium 2.0 1.6 - 2.6 mg/dL [facility] Ferritin 214 10 - 291 ng/mL [facility]PS [facility] Iron 37 30 - 160 mcg/dL APS SPECT[facility] UIBC 240 155 - 355 mcg/dL APS SPECTRA [facility] TIBC 277 185 - 515 mcg/dL APS SPECTRA [facility] Iron Saturation (TSat) 13 (L) 20 - 55 % APS SPE CTRA [facility] Specimen (Source) Anatomical Collection Method Collection Time Re ceived Time Location / / Volume Laterality 01/03/2022 01/05/2022 3:45 AM CDT Narrative APS SPECTRA [facility] - 01/05/2022 Unless otherwise specified, test(s) performed at: [facility], [address] [place] [address], [place] [address] DELIVERY CREW MEMBER: Vicente Flores M.D., Ph.D For any questions, please call customer service at FREQUENCY:MONTHLY Resulting Agency Comment Specimen source: Serum Landon Calvert MD LAB BLOOD ORDERABLES Performing Organization Address City/State/ZIP Code Phon e Number APS SPECTRA [facility] documented in this encounter Visit Diagnoses Not on filedocumented in this encounter Care Teams Belt Molder Relationship Specialty Start Date End Date Fabian Arias MD PCP - General Family Medicine 09/04/[address] [place] [address] documented as of this encounter
--- OUTSIDE RECORDS SUMMARY | 2022-03-08 08:40 | XMS_ITS | Encounter Summary ---
:1940 Author Organization [facility] Address [address] [place] [address] Care Team Providers Name Role Phone Fabian Arias MD Primary Care Provider Encounter Details Date Type Department Care Team Description 01/24/2022 Orders Only [facility] O f Landon Zarate MD [phone] [place] [address] [place], [place] [phone] (Wo rk) Social History Tobacco Use Types Packs/Day Years Used Date Smoking Tobacco: Smoker, Current Cigarettes Started: 07/01/1976 Status Unknown Sex Assigned at Date Recorded Not on file documented as of this encounter Plan of Treatment Not on filedocumented as of this encounter Procedures Procedure Name Priority Date/Time Associated Diagnosis Comme nts HEMATOLOGY Routine 01/24/2022 Results for thi s procedure are in the resu lts section. documented in this encounter Results (ABNORMAL) HEMATOLOGY (01/24/2022) Analysis Performed At Patho logist Time Signature Hemoglobin 11.6 (L) 12.0 - APS SPECTRA 16.0 g/dL [facility] Hemoglobin x 3 34.8 (L) 36.0 - APS SPECTRA 48.0 % [facility] Specimen (Source) Anatomical Collection Method Collection Time Re ceived Time Location / / Volume Laterality 01/24/2022 01/25/2022 6:54 AM CDT Narrative APS SPECTRA [facility] - 01/25/2022 Unless otherwise specified, test(s) performed at: [facility], [address] [place] [address] tamar [place] [address] ELECTRONICS DEPARTMENT MANAGER: Vicente Flores M.D., Ph.D For any questions, please call customer service at FREQUENCY:OTHER Resulting Agency Comment Specimen source: Blood Landon Calvert MD LAB BLOOD ORDERABLES Performing Organization Address City/State/ZIP Code Phon e Number APS SPECTRA [facility] documented in this encounter Visit Diagnoses Not on filedocumented in this encounter Care Teams Automotive Machinist Apprentice Relationship Specialty Start Date End Date Fabian Arias MD PCP - General Family Medicine 09/04/[address] [place] [address] documented as of this encounter
--- OUTSIDE RECORDS SUMMARY | 2022-03-08 08:40 | XMS_ITS | Encounter Summary ---
:1940 Author Organization [facility] Address [address] [place] [address] Care Team Providers Name Role Phone Fabian Arias MD Primary Care Provider Encounter Details Date Type Department Care Team Description 10/25/2021 Treatment [facility] O f Landon Zarate MD [address] [place] [address] [place], [place] [phone] (Wo rk) Social History Tobacco Use Types Packs/Day Years Used Date Smoking Tobacco: Smoker, Current Cigarettes Started: 07/01/1976 Status Unknown Sex Assigned at Date Recorded Not on file documented as of this encounter Miscellaneous Notes Dialysis Note - Landon Calvert MD - 10/25/2021 9:19 AM CDT Date: Oct 25, 2021 Patient Name: Zamzam Garibay : 1940 Chart #: [id number] Sex: F This patient was personally seen for a basic visit as part of routine weekly dialysis care. A reviewof the dialysis treatment, blood pressure, estimated dry weight and recent lab values was made. These were discussed with the patient and staff as necessary. Treatment Data for 10/25/2021 started at:6:10 AM Dialyzer: 160NRe Optiflux Na: 137 mEq/L Bicarb: 33 mEq/L Dialysate: 3.0 K, 2.25 Ca, 1.0 Mg, 100 Dextrose (G3231) Dialysate/Machine Temp (prescribed): 37 C Dialysate/Machine Temp (actual): 37.2 C BFR (prescribed): 400 BFR (actual): 400 Prescribed time: 03:30 EDW: 48 kg Access Type: Active (In Use):CVCatheter-Tunneled/Chest Pre Dialysis Vitals (for 10/25/2021 6:02 AM ) Pre BP (sit): 190/94 Pre Wt: 51 kg Temp: 95.2 F Post Dialysis Vitals (for 10/23/2021 9:39 AM ) Post BP (sit): 171/91 Post Wt: 49 kg Current Dialysis Vitals (for 10/25/2021 9:03 AM ) BP (sit): 152/81 AP(-) / ACCIDENT INVESTIGATOR: 179/130 Pulse: 81 Chairside data as of 10/25/2021 9:03 AM Last 3 Treatments 10/23/2021 10/20/2021 10/18/2021 EDW (kg) 48 48 48 Weight Pre (kg) 50.9 50.6 51.8 Weight Post (kg) 49 48.8 49.5 Dialytic Weight Loss (kg) -1.9 -1.8 -2.3 EDW Deviation (kg) 1 0.8 1.5 BP Sit Pre 184/106 190/98 188/90 BP Sit Post 171/91 163/84 155/85 UF Rate (mL/kg/hr) 11 11 14 Prescribed BFR 400 400 400 Average Delivered BFR 410 410 410 Prescribed Treatment Time 03:30 03:30 03:30 Actual Treatment Time 03:30 03:30 03:30 Treatment Medication Orders Medication Sig Start [...] units IVP Every Treatment 07/05/2021 07/04/2022 Mircera 75 mcg IVP Every 2 weeks 10/18/2021 10/17/2022 Vitamin D (Calcitriol) Oral 1.0 mcg ORAL Every Treatment 06/05/2021 06/04/2022 DRY WALL INSTALLATIONS MECHANIC: Landon Calvert MD LOCATION: [phone] SCHEDULE: -- 2nd Shift ACCESS: EDW: kg. DIALYZER: HD DURATION: NEEDLE SIZE: ANTICOAG: BATH: QB: ml/min QD: ml/min Subjective Tolerating dialysis well. 10/25/21: She feels well. Had been drinking [...] She has access appt on 10/03 at [facility]. No concerns today. 09/06/21: She [...] This is Jaz's first day back from [facility]. She says she had no symptoms, but her son tested her when she was fatigued and had fever. She reports now having no symptoms at all. She says she feels great. Fluid gains have been better. 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 Can't remove [...] HD. 04/26/21: She was hospitalized briefly at [facility] for dyspnea, no pneumonia but rather related to CHF. She saw cardiology in follow-up in clinic, lisinopril and metoprolol and lasix with UF on HD to dry weight recommended. She is not interested in home dialysis, discussed today. 04/12/21: Patient new to me. She followed with partition assembler in [facility], did not follow-up,crashed into dialysis in [...] leg edema. 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 BUN mg/dL 61 (10/04/21) 61 (08/30/21) 93 [...] (08/30/21) 1.9000 (08/07/21) 1.7200 (07/05/21) 2.1200 (05/31/21) HEMOGLOBIN (G/DL) IN BLOOD g/dL 9.4 (10/18/21) 9.2 (10/11/21) 10.1 (10/04/21) 9.6 (09/27/21) 9.6 (09/20/21) PLATELETS 1000/mcL 299 (08/30/21) 329 (08/02/21) 390 (07/05/21) 245 (05/31/21) 236 (05/03/21) IRON SATURATION % 11 (10/04/21) 16 (08/30/21) 18 (08/02/21) 20 (07/05/21) 18 (05/31/21) FERRITIN ng/mL 28 (10/18/21) 39 (10/04/21) 293 (07/05/21) 250 (05/10/21) ALBUMIN (G/DL) g/dL 3.8 (10/04/21) 4.0 (08/30/21) 3.9 (08/02/21) Sodium mEq/L 138 (10/04/21) 142 (08/30/21) 140 (08/02/21) POTASSIUM (MMOL/L) IN SER/PLAS mEq/L 5.1 (10/04/21) 5.2 (08/30/21) 3.8 (08/02/21) BICARBONATE (CO2) mEq/L 13 (10/04/21) 21 (08/30/21) 22 (08/02/21) BUN/CREATININE (MASS RATIO) IN SER/PLAS 7.6 (10/04/21) 8.1 (08/30/21) 9.8 (08/02/21) Calcium mg/dL 9.6 (10/04/21) 9.7 (08/30/21) 9.4 (08/02/21) Calcium Phos Product 78 (10/04/21) 72 (08/30/21) 88 (08/02/21) CALCIUM (MG/DL) CORRECTED FOR ALBUMIN IN SER/PLAS mg/dL 9.8 (10/04/21) 9.7 (08/30/21) 9.5 (08/02/21) PHOSPHATE (MG/DL) IN SER/PLAS mg/dL 8.1 (10/04/21) 7.4 (08/30/21) 9.4 (08/02/21) IPTH pg/mL 232 (10/04/21) 254 (07/05/21) 493 (05/31/21) Vascular Access Assessment: Type of access: Catheterand LUE AVF [facility] September 2021, need report [facility] appt 08/2021: LUE AVF lower arm placed in [place], 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 Will need new access placement. She is being set up for vein mapping and surgeon consult Impression and Plan Stable dialysis, no changes today Need report from [facility], unclear result as patient says they want to salvage her current access but nothing was done and it does not feel usable at all. Landon Calvert MD [ Signed And locked electronically On 10/25/2021 at 09:21:32 AM ] Transcribed: Landon Calvert ( 10/25/2021 ) documented in this encounter Plan of Treatment Not on filedocumented as of this encounter Visit Diagnoses Not on filedocumented in this encounter Care Teams Hematology Oncology Consultant Relationship Specialty Start Date End Date Fabian Arias MD PCP - General Family Medicine 09/04/[address] [place] [address] documented as of this encounter
--- OUTSIDE RECORDS SUMMARY | 2022-03-08 08:40 | XMS_ITS | Encounter Summary ---
:1940 Author Organization [facility] Address [address] [place] [address] Care Team Providers Name Role Phone Fabian Arias MD Primary Care Provider Encounter Details Date Type Department Care Team Description 01/24/2022 Treatment [facility] Landon Zarate MD [address] [place] [address] [place], [place] [phone] (Wo rk) Social History Tobacco Use Types Packs/Day Years Used Date Smoking Tobacco: Smoker, Current Cigarettes Started: 07/01/1976 Status Unknown Sex Assigned at Date Recorded Not on file documented as of this encounter Miscellaneous Notes Dialysis Note - Landon Calvert MD - 01/24/2022 11:53 AM CDT Date: Jan 24, 2022 Patient Name: Zamzam Garibay : 1940 Chart #: [id number] Sex: F This patient was personally seen for a basic visit as part of routine weekly dialysis care. A reviewof the dialysis treatment, blood pressure, estimated dry weight and recent lab values was made. These were discussed with the patient and staff as necessary. Treatment Data for 01/24/2022 started at:6:10 AM Dialyzer: 160NRe Optiflux Na: 137 mEq/L Bicarb: 33 mEq/L Dialysate: 3.0 K, 2.5 Ca, 1.0 Mg, 100 Dextrose (G3251) Dialysate/Machine Temp (prescribed): 37 C Dialysate/Machine Temp (actual): 36.2 C BFR (prescribed): 400 BFR (actual): n/a Prescribed time: 03:30 EDW: 49.5 kg Access Type: Active (In Use):CVCatheter-Tunneled/Chest Pre Dialysis Vitals (for 01/24/2022 6:03 AM ) Pre BP (sit): 208/95 Pre Wt: 55.1 kg Temp: 95.8 F Post Dialysis Vitals (for 01/22/2022 10:51 AM ) Post BP (sit): 196/84 Post Wt: 52.8 kg Current Dialysis Vitals (for 01/24/2022 9:33 AM ) BP (sit): 200/99 AP(-) / FINISHER MERCHANT PRODUCTS: n/a Pulse: 83 Chairside data as of 01/24/2022 9:33 AM Last 3 Treatments 01/22/2022 01/19/2022 01/17/2022 EDW (kg) 49.5 49.5 49.5 Weight Pre (kg) 54.4 52.9 54.6 Weight Post (kg) 52.8 51.3 52.8 Dialytic Weight Loss (kg) -1.6 -1.6 -1.8 EDW Deviation (kg) 3.3 1.8 3.3 BP Sit Pre 203/92 190/91 194/107 BP Sit Post 196/84 165/93 171/74 UF Rate (mL/kg/hr) 9 9 10 Prescribed BFR 400 400 400 Average Delivered BFR 410 410 410 Prescribed Treatment Time 03:30 03:30 03:30 Actual Treatment Time 03:25 03:32 03:31 Treatment Medication Orders Medication Sig Start Date [...] 2000 units IVP Every Treatment 07/05/2021 07/04/2022 AQUATIC LABORER: Landon Calvert MD LOCATION: [phone] SCHEDULE: - 2nd Shift ACCESS: EDW: kg. DIALYZER: HD DURATION: NEEDLE SIZE: ANTICOAG: BATH: QB: ml/min QD: ml/min Subjective Tolerating dialysis well. 01/24: She missed extra treatment on Sat at [facility]. Still above EDW. 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 12/06/21: She says she feels well. [...] her daughter and grandchild up in the [facility]. No symptoms of fluid overload, denies dyspnea [...] She has access appt on 10/03 at [facility]. No concerns today. 09/06/21: She is 9 [...] This is Jaz's first day back from [facility]. She says she had no symptoms, but her son tested her when she was fatigued and had fever. She reports now having no symptoms at all. She says she feels great. Fluid gains have been better. Only complaint is acid reflux with once weekly vomiting up acid in her mouth and she says she used to be on acid rounder hand but she hasn't had it sincebeing in [...] in the hospital overnight last month at [place], SOB resolved with fluid removal. Can't remove [...] HD. 04/26/21: She was hospitalized briefly at [place] for dyspnea, no pneumonia but rather related to CHF. She saw cardiology in follow-up in clinic, lisinopril and metoprolol and lasix with UF on HD to dry weight recommended. She is not interested in home dialysis, discussed today. 04/12/21: Patient new to me. She followed with seasoner hand in [facility], did not follow-up,crashed into dialysis in [...] mouth once a day 04/12/2021 RenaPlex-D (vit b,c-kp-romm-selen-vit d3-e) 800 mcg-12.5 mg-2,000 unit tablet Take 1 tablet by mouthonce a day trazodone 50 mg tablet Take 1 tablet by mouth every night as needed 04/12/2021 Allergy List Allergen Reaction Reaction Severity Onset Date Venofer Skin rash Medications reviewed and no changes were made. BUN mg/dL 62 (01/03/22) 56 (11/29/21) 64 [...] (11/29/21) 2.1000 (11/01/21) 2.1700 (10/04/21) 2.2200 (08/30/21) HEMOGLOBIN (G/DL) IN BLOOD g/dL 12.2 (01/17/22) 11.9 (01/10/22) 11.6 (01/03/22) 11.5 (12/27/21) 9.5 (12/20/21) PLATELETS 1000/mcL 340 (01/03/22) 358 (11/29/21) 352 (11/01/21) 299 (08/30/21) 329 (08/02/21) IRON SATURATION % 6 (11/29/21) 14 (11/01/21) 11 (10/04/21) 16 (08/30/21) 18 (08/02/21) FERRITIN ng/mL 214 (01/03/22) 28 (10/18/21) 39 (10/04/21) 293 (07/05/21) 250 (05/10/21) ALBUMIN (G/DL) g/dL 4.1 (01/03/22) 3.8 (11/29/21) 4.0 (11/01/21) Sodium mEq/L 141 (01/03/22) 142 (11/29/21) 136 (11/01/21) POTASSIUM (MMOL/L) IN SER/PLAS mEq/L 4.7 (01/03/22) 4.3 (11/29/21) 5.2 (11/01/21) BICARBONATE (CO2) mEq/L 24 (01/03/22) 23 (11/29/21) 23 (11/01/21) BUN/CREATININE (MASS RATIO) IN SER/PLAS 7.9 (01/03/22) 6.0 (11/29/21) 7.2 (11/01/21) CALCIUM mg/dL 8.9 (01/03/22) 9.1 (11/29/21) 10.3 (11/08/21) Calcium Phos Product 68 (01/03/22) 61 (11/29/21) 75 (11/01/21) CALCIUM (MG/DL) CORRECTED FOR ALBUMIN IN SER/PLAS mg/dL 8.8 (01/03/22) 9.3 (11/29/21) 10.2 (11/01/21) PHOSPHATE (MG/DL) IN SER/PLAS mg/dL 7.6 (01/03/22) 6.7 (11/29/21) 7.4 (11/01/21) IPTH pg/mL 684 (01/03/22) 138 (11/08/21) 232 (10/04/21) Vascular Access Assessment: Type of access: Catheterand LUE AVF New access surgery planned in December 2021 12/06/21: Attempted using AVF with one 17g needle, infiltrated, now pulling clots. Does not seem usable to me based on this and how it feels. 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 Will need new access placement. She is being set up for vein mapping and surgeon consult Impression and Plan Stable dialysis BP too high Increase lisinopril Schedule extra treatment for UF AVF surgery next week at [facility] Landon Calvert MD [ Signed And locked electronically On 01/24/2022 at 11:54:51 AM ] Transcribed: Landon Calvert ( 01/24/2022 ) documented in this encounter Plan of Treatment Not on filedocumented as of this encounter Visit Diagnoses Not on filedocumented in this encounter Care Teams Supervisory Examiner Relationship Specialty Start Date End Date Fabian Arias MD PCP - General Family Medicine 09/04/[address] [place] [address] documented as of this encounter
--- OUTSIDE RECORDS SUMMARY | 2022-03-08 08:40 | XMS_ITS | Encounter Summary ---
:1940 Author Organization [facility] Address [address] [place] [address] Care Team Providers Name Role Phone Fabian Arias MD Primary Care Provider Encounter Details Date Type Department Care Team Description 02/07/2022 Treatment [facility] Landon Zarate MD [address] [place] [address] [place], [place] [phone] (Wo rk) Social History Tobacco Use Types Packs/Day Years Used Date Smoking Tobacco: Smoker, Current Cigarettes Started: 07/01/1976 Status Unknown Sex Assigned at Date Recorded Not on file documented as of this encounter Miscellaneous Notes Dialysis Note - Landon Calvert MD - 02/07/2022 10:01 AM CDT Date: Feb 07, 2022 Patient Name: Zamzam Garibay : 1940 Chart #: [id number] Sex: F This patient was personally seen for a complete visit as part of routine monthly dialysis care. A review of the dialysis treatment, blood pressure, estimated dry weight and recent lab values was made. These were discussed with the patient and staff as necessary. Treatment Data for 02/07/2022 started at:6:07 AM Dialyzer: 160NRe Optiflux Na: 137 mEq/L Bicarb: 33 mEq/L Dialysate: 3.0 K, 2.5 Ca, 1.0 Mg, 100 Dextrose (G3251) Dialysate/Machine Temp (prescribed): 37 C Dialysate/Machine Temp (actual): 36.5 C BFR (prescribed): 400 BFR (actual): 400 Prescribed time: 03:30 EDW: 49.5 kg Access Type: Active (In Use):CVCatheter-Tunneled/Chest Pre Dialysis Vitals (for 02/07/2022 6:00 AM ) Pre BP (sit): 175/82 Pre Wt: 53.7 kg Temp: 96 F Post Dialysis Vitals (for 02/05/2022 9:36 AM ) Post BP (sit): 164/78 Post Wt: 53.3 kg Current Dialysis Vitals (for 02/07/2022 9:33 AM ) BP (sit): 122/55 AP(-) / FREIGHT INSPECTOR: 229/134 Pulse: 81 Chairside data as of 02/07/2022 9:33 AM Last 3 Treatments 02/05/2022 02/02/2022 (Absent) 02/01/2022 (Absent) EDW (kg) 49.5 Weight Pre (kg) 55.2 Weight Post (kg) 53.3 Dialytic Weight Loss (kg) -1.9 EDW Deviation (kg) 3.8 BP Sit Pre 158/88 BP Sit Post 164/78 UF Rate (mL/kg/hr) 11 Prescribed BFR 400 Average Delivered BFR 410 Prescribed Treatment Time 03:30 Actual Treatment Time 03:30 Treatment Medication Orders Medication Sig Start [...] 4000 units IVP Every Treatment 07/05/2021 07/04/2022 HEAD HOLDER: Landon Calvert MD LOCATION: [place] [phone] SCHEDULE: M-W-F 2nd Shift EDW: kg. DIALYZER: HD DURATION: NEEDLE SIZE: ANTICOAG: BATH: QB: ml/min QD: ml/min Subjective Tolerating dialysis well. 02/07: She was scheduled for extra Hd treatment last for volume and also to prepare for access placement on Saturday of last week but she did not show up despite saying she would go and her son being notified and confirming. Then she went for access placement on Friday 02/02 at [facility] and had hyperkalemia and surgery cancelled and she dialyzed in the hospital instead. She had improved gain <1L today and will get close to EDW but not to dry weight. Her BP is a little better with this gain and on HD today looks excellent. She has no symptoms and feels well today. 01/24: She missed extra treatment on Sat at [facility]. Still above EDW. Trying to pull 2.6L today, traditionally has had issues with low BP with UF >2.3L but her BP is >200 systolic starting. Increased lisinopril last time, will increase again today. AVF/AVG surgery scheduled next week at [facility] [place]. She feels well and has no dyspnea or orthopnea. 01/10/22: Her BP has been markedly elevated, persistently over dry weight and now 3+ Kg above dry weight post-Tx on Saturday. She does not lay flat due to SOB but this is chronic, denies dyspnea or other symptoms at this time. 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 12/06/21: She says she feels well. Her [...] her daughter and grandchild up in the [facility]. No symptoms of fluid overload, denies [...] has access appt on 10/03 at [facility]. No concerns today. 09/06/21: She is 9 [...] is Jaz's first day back from [facility]. She says she had no symptoms, but her son tested her when she was fatigued and had fever. She reports now having no symptoms at all. She says she feels great. Fluid gains have been better. 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 Can't remove [...] HD. 04/26/21: She was hospitalized briefly at [place] for dyspnea, no pneumonia but rather related to CHF. She saw cardiology in follow-up in clinic, lisinopril and metoprolol and lasix with UF on HD to dry weight recommended. She is not interested in home dialysis, discussed today. 04/12/21: Patient new to me. She followed with avp in [facility], did not follow-up,crashed into dialysis in January [...] Clear to auscultation bilaterally. nl effort Cardiovascular - Regular rate. Regular rhythm. No [...] mouth once a day 04/12/2021 RenaPlex-D (vit b,x-ad-gejv-selen-vit d3-e) 800 mcg-12.5 mg-2,000 unit tablet Take 1 tablet by mouthonce a day trazodone 50 mg tablet Take 1 tablet by mouth every night as needed 04/12/2021 Allergy List Allergen Reaction Reaction Severity Onset Date Venofer Skin rash Medications reviewed and no changes were made. Treatment and Adequacy Assessment BUN mg/dL 80 (01/31/22) 62 (01/03/22) 56 [...] (01/03/22) 1.9300 (11/29/21) 2.1000 (11/01/21) 2.1700 (10/04/21) Dialysis is adequate. Achieves prescribed time - Yes Achieves prescribed frequency - Yes Continue current prescription. Vascular Access Assessment Type of access: Catheterand LUE AVF New access surgery planned in December 2021 12/06/21: Attempted using AVF with one 17g needle, infiltrated, now pulling clots. Does not seem usable to me based on this and how it feels. 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 Will need new access placement. She is being set up for vein mapping and surgeon consult Anemia Assessment HEMOGLOBIN (G/DL) IN BLOOD g/dL 11.9 (01/31/22) 11.6 (01/24/22) 12.2 (01/17/22) 11.9 (01/10/22) 11.6 (01/03/22) PLATELETS 1000/mcL 255 (01/31/22) 340 (01/03/22) 358 [...] Nutritional and Metabolic Assessment ALBUMIN (G/DL) g/dL 4.2 (01/31/22) 4.1 (01/03/22) 3.8 (11/29/21) 4.0 (11/01/21) 3.8 (10/04/21) Sodium mEq/L 137 (01/31/22) 141 (01/03/22) 142 (11/29/21) 136 (11/01/21) 138 (10/04/21) POTASSIUM (MMOL/L) IN SER/PLAS mEq/L 4.6 (01/31/22) 4.7 (01/03/22) 4.3 (11/29/21) 5.2 (11/01/21) 5.1 (10/04/21) BICARBONATE (CO2) mEq/L 25 (01/31/22) 24 (01/03/22) 23 (11/29/21) 23 (11/01/21) 13 (10/04/21) Albumin is at goal. Encourage high-biological value protein intake. Potassium is at goal. Bicarbonate is at goal. Continue same bicarbonate in dialysate. Bone and Mineral Metabolism Assessment CALCIUM mg/dL 9.8 (01/31/22) 8.9 (01/03/22) 9.1 (11/29/21) 10.3 (11/08/21) 10.3 (11/06/21) CALCIUM (MG/DL) CORRECTED FOR ALBUMIN IN SER/PLAS mg/dL 9.6 (01/31/22) 8.8 (01/03/22) 9.3 (11/29/21) 10.2 (11/01/21) 9.8 (10/04/21) PHOSPHATE (MG/DL) IN SER/PLAS mg/dL 5.9 (01/31/22) 7.6 (01/03/22) 6.7 (11/29/21) 7.4 (11/01/21) 8.1 (10/04/21) CALCIUM PHOSPHORUS PRODUCT, COR 57 (01/31/22) 67 (01/03/22) 62 (11/29/21) 75 (11/01/21) 79 (10/04/21) IPTH pg/mL 684 (01/03/22) 138 (11/08/21) 232 (10/04/21) 254 (07/05/21) 493 (05/31/21) Corrected Calcium is at goal. Phosphorous is above goal. Intact PTH is above goal. Automation Tech will adjust binders and vitamin D per protocol and continue to provide dietary education. Needs 100% compliance with binders and following renal diet. This is improving Cardiovascular Assessment Blood pressures reviewed and are not at goal, see below. Intradialytic weight gains are too high. Estimated dry weight is appropriate. Continue same cardiovascular medications. Discussed fluid gains and salt intake again today. Did better with gain today. She has no showed multiple extra treatments that we have set up and she has confirmed and I am not going to attempt this again at this time. Working on getting back to EDW with MWF HD with limiting fluid gains. Transplant Status: Patient is not a candidate. age and co-morbidities Resuscitation Status No extra UF run for now as she has failed to show multiple times Re-schedule access placement on non dialysis day if she can get ride from son - she is going to speak with him about this Lower IDWG's, did better today, try to get back to EDW No change in meds today Landon Calvert MD [ Signed And locked electronically On 02/07/2022 at 10:04:47 AM ] Transcribed: Landon Calvert ( 02/07/2022 ) External Note - Landon Calvert MD - 02/07/2022 9:59 AM CDT Date: Feb 07, 2022 Patient Name: Zamzam Garibay : 1940 Chart #: [id number] Sex: F Patient has transitioned out of the following type of facility within the past 30 days: Discharging Facility: Patient caregiver is present? If yes, relationship of caregiver to the patient: Date of admission:02/02/22 Reason for admission: Access placement Date of discharge:02/02/22 Discharge Diagnosis: Access placement, HD Review of relevant procedures performed during admission (surgeries, cardiac, transfusions, etc): Access placement cancelled for hyperkalemia, had HD at hospital as missed outpatient run. Medication List Medication Sig Start Date B [...] mouth once a day 04/12/2021 RenaPlex-D (vit b,m-yc-asov-selen-vit d3-e) 800 mcg-12.5 mg-2,000 unit tablet Take 1 tablet by mouthonce a day trazodone 50 mg tablet Take 1 tablet by mouth every night as needed 04/12/2021 Allergy List Allergen Reaction Reaction Severity Onset Date Venofer Skin rash New in-center meds were considered (antibiotics, ONS, etc): No in-center meds initiated. Dialysis related therapy interruptions were considered (Micera,Venofer,ONS,etc): There were no dialysis related interruptions. Target Weight: The patient's post discharge target weight was unchanged from their pre-admit target weight. Physical Exam: Lungs: Clear. Heart: RRR. Edema: None. Did the patient have tests ordered during admission that were not completed? No outstanding tests. If yes, please list: Was patient education specific to discharge diagnosis provided? Did the patient's access plan change as a result of this admission? Did the patient's advanced care plan change as a result of this admission? No changes in advanced care plan. Did the patient have any follow up appointments scheduled post discharge? No follow up appts noted. If yes, what is the status of those appts? Landon Calvert MD [ Signed And locked electronically On 02/07/2022 at 10:00:25 AM ] Transcribed: Landon Calvert ( 02/07/2022 ) documented in this encounter Plan of Treatment Not on filedocumented as of this encounter Visit Diagnoses Not on filedocumented in this encounter Care Teams Crop Farm Workers Relationship Specialty Start Date End Date Fabian Arias MD PCP - General Family Medicine 09/04/[address] [place] [phone] documented as of this encounter
--- OUTSIDE RECORDS SUMMARY | 2022-03-08 08:40 | XMS_ITS | Encounter Summary ---
:1940 Author Organization [facility] Address [address] [place] [address] Care Team Providers Name Role Phone Fabian Arias MD Primary Care Provider Encounter Details Date Type Department Care Team Description 12/13/2021 Orders Only [facility] Landon Zarate MD [phone] [place] [address] [place], [place] [phone] (Wo rk) Social History Tobacco Use Types Packs/Day Years Used Date Smoking Tobacco: Smoker, Current Cigarettes Started: 07/01/1976 Status Unknown Sex Assigned at Date Recorded Not on file documented as of this encounter Plan of Treatment Not on filedocumented as of this encounter Procedures Procedure Name Priority Date/Time Associated Diagnosis Comme nts HEMATOLOGY Routine 12/13/2021 Results for thi s procedure are in the resu lts section. documented in this encounter Results (ABNORMAL) HEMATOLOGY (12/13/2021) Analysis Performed At Patho logist Time Signature Hemoglobin 8.9 (L) 12.0 - [facility] 16.0 g/dL [facility] Hemoglobin x 3 26.7 (L) 36.0 - [facility] 48.0 % [facility] Specimen (Source) Anatomical Collection Method Collection Time Re ceived Time Location / / Volume Laterality 12/13/2021 12/14/2021 4:27 PM CDT Narrative [facility] - 12/14/2021 Unless otherwise specified, test(s) performed at: [facility], [address] [place] [id number] ENVIRONMENTAL COMPLIANCE TECHNICIAN: Carl Paula M.D. For any questions, please call customer service at FREQUENCY:OTHER Resulting Agency Comment Specimen source: Blood Landon Calvert MD LAB BLOOD ORDERABLES Performing Organization Address City/State/ZIP Code Phon e Number [facility] documented in this encounter Visit Diagnoses Not on filedocumented in this encounter Care Teams Room Manager Relationship Specialty Start Date End Date Fabian Arias MD PCP - General Family Medicine 09/04/[address] [place] [address] documented as of this encounter
--- OUTSIDE RECORDS SUMMARY | 2022-03-08 08:40 | XMS_ITS | Encounter Summary ---
:1940 Author Organization [facility] Address [address] [place] [address] Care Team Providers Name Role Phone Fabian Arias MD Primary Care Provider Encounter Details Date Type Department Care Team Description 01/17/2022 Orders Only [facility] Landon Zarate MD [phone] [place] [address] [place], [place] [phone] (Wo rk) Social History Tobacco Use Types Packs/Day Years Used Date Smoking Tobacco: Smoker, Current Cigarettes Started: 07/01/1976 Status Unknown Sex Assigned at Date Recorded Not on file documented as of this encounter Plan of Treatment Not on filedocumented as of this encounter Procedures Procedure Name Priority Date/Time Associated Diagnosis Comme nts HEMATOLOGY Routine 01/17/2022 Results for thi s procedure are in the resu lts section. documented in this encounter Results HEMATOLOGY (01/17/2022) P athologist Signature Hemoglobin 12.2 12.0 - [facility] 16.0 g/dL [facility] Hemoglobin x 3 36.6 36.0 - [facility] 48.0 % [facility] Specimen (Source) Anatomical Collection Method Collection Time Re ceived Time Location / / Volume Laterality 01/17/2022 01/18/2022 3:58 PM CDT Narrative [facility] - 01/18/2022 Unless otherwise specified, test(s) performed at: [facility], [address] [place] [address], [place] [address] DENTAL ASSISTANT TEACHER: Vicente Flores M.D., Ph.D For any questions, please call customer service at FREQUENCY:OTHER Resulting Agency Comment Specimen source: Blood Landon Calvert MD LAB BLOOD ORDERABLES Performing Organization Address City/State/ZIP Code Phon e Number [facility] documented in this encounter Visit Diagnoses Not on filedocumented in this encounter Care Teams Collar Tacker Relationship Specialty Start Date End Date Fabian Arias MD PCP - General Family Medicine 09/04/[address] [place] [address] documented as of this encounter
--- OUTSIDE RECORDS SUMMARY | 2022-03-08 08:40 | XMS_ITS | Encounter Summary ---
:1940 Author Organization [facility] Address [address] [place] [address] Care Team Providers Name Role Phone Fabian Arias MD Primary Care Provider Encounter Details Date Type Department Care Team Description 01/10/2022 Orders Only [facility] f Landon Zarate MD [address] [place] [address] [place], [place] [phone] (Wo rk) Social History Tobacco Use Types Packs/Day Years Used Date Smoking Tobacco: Smoker, Current Cigarettes Started: 07/01/1976 Status Unknown Sex Assigned at Date Recorded Not on file documented as of this encounter Plan of Treatment Not on filedocumented as of this encounter Procedures Procedure Name Priority Date/Time Associated Diagnosis Comme nts HEMATOLOGY Routine 01/10/2022 Results for thi s procedure are in the resu lts section. documented in this encounter Results (ABNORMAL) HEMATOLOGY (01/10/2022) Analysis Performed At Patho logist Time Signature Hemoglobin 11.9 (L) 12.0 - APS [facility]PECTRA 16.0 g/dL [facility] Hemoglobin x 3 35.7 (L) 36.0 - A[facility]RA 48.0 % [facility] Specimen (Source) Anatomical Collection Method Collection Time Re ceived Time Location / / Volume Laterality 01/10/2022 01/11/2022 2:58 AM CDT Narrative APS SPECTRA [facility] - 01/11/2022 Unless otherwise specified, test(s) performed at: [facility], [address] [place] [address] [facility] [place] [address] INSULATION TECHNICIAN: Vicente Flores M.D., Ph.D For any questions, please call customer service at FREQUENCY:OTHER Resulting Agency Comment Specimen source: Blood Landon Calvert MD LAB BLOOD ORDERABLES Performing Organization Address City/State/ZIP Code Phon e Number APS SPECTRA [facility] documented in this encounter Visit Diagnoses Not on filedocumented in this encounter Care Teams Iron Installer Relationship Specialty Start Date End Date Fabian Arias MD PCP - General Family Medicine 09/04/[address] [place] [address] documented as of this encounter
--- OUTSIDE RECORDS SUMMARY | 2022-03-08 08:40 | XMS_ITS | Encounter Summary ---
:1940 Author Organization [facility] Address [address] [place] [address] Care Team Providers Name Role Phone Fabian Arias MD Primary Care Provider Encounter Details Date Type Department Care Team Description 10/18/2021 Orders Only [facility] f Landon Zarate MD [address] [place] [address] [place], [place] [phone] (Wo rk) Social History Tobacco Use Types Packs/Day Years Used Date Smoking Tobacco: Smoker, Current Cigarettes Started: 07/01/1976 Status Unknown Sex Assigned at Date Recorded Not on file documented as of this encounter Plan of Treatment Not on filedocumented as of this encounter Procedures Procedure Name Priority Date/Time Associated Diagnosis Comme nts HEMATOLOGY Routine 10/18/2021 Results for thi s procedure are in the resu lts section. CHEMISTRY Routine 10/18/2021 Results for thi s procedure are in the resu lts section. documented in this encounter Results Spectrae Chemistry (10/18/2021) P athologist Signature Ferritin 28 10 - 291 APS [facility]PECTRA ng/mL [facility] Specimen (Source) Anatomical Collection Method Collection Time Re ceived Time Location / / Volume Laterality 10/18/2021 10/21/2021 10:2 6 AM CDT Narrative APS SPECTRA [facility] - 10/21/2021 Unless otherwise specified, test(s) performed at: [facility], [address] [place] [id number] BOTTOM BUFFER: Carl Paula M.D. For any questions, please call customer service at FREQUENCY:OTHER Resulting Agency Comment Specimen source: Serum Landon Calvert MD LAB BLOOD ORDERABLES Performing Organization Address City/State/ZIP Code Phon e Number APS SPECTRA [facility] (ABNORMAL) HEMATOLOGY (10/18/2021) Analysis Performed At Patho logist Time Signature Hemoglobin 9.4 (L) 12.0 - APS [facility] 16.0 g/dL [facility] Hemoglobin x 3 28.2 (L) 36.0 - APS SPECTRA 48.0 % [facility] Specimen (Source) Anatomical Collection Method Collection Time Re ceived Time Location / / Volume Laterality 10/18/2021 10/21/2021 10:0 3 AM CDT Narrative APS SPECTRA [facility] - 10/21/2021 Unless otherwise specified, test(s) performed at: [facility], [address] [place] [address] BOTTOM BUFFER: Carl Paula M.D. For any questions, please call customer service at FREQUENCY:OTHER Resulting Agency Comment Specimen source: Blood Landon Calvert MD LAB BLOOD ORDERABLES Performing Organization Address City/[facility] Phon e Number APS SPECTRA [facility] documented in this encounter Visit Diagnoses Not on filedocumented in this encounter Care Teams Carpenter'S Helper Relationship Specialty Start Date End Date Fabian Arias MD PCP - General Family Medicine 09/04/[address] [place] [address] documented as of this encounter
--- OUTSIDE RECORDS SUMMARY | 2022-03-08 08:40 | XMS_ITS | Encounter Summary ---
:1940 Author Organization [facility] Address [address] [place] [address] Care Team Providers Name Role Phone Fabian Arias MD Primary Care Provider Encounter Details Date Type Department Care Team Description 11/22/2021 Orders Only [facility] f Landon Zarate MD [address] [place] [address] [place], [place] [phone] (Wo rk) Social History Tobacco Use Types Packs/Day Years Used Date Smoking Tobacco: Smoker, Current Cigarettes Started: 07/01/1976 Status Unknown Sex Assigned at Date Recorded Not on file documented as of this encounter Plan of Treatment Not on filedocumented as of this encounter Procedures Procedure Name Priority Date/Time Associated Diagnosis Comme nts HEMATOLOGY Routine 11/22/2021 Results for thi s procedure are in the resu lts section. documented in this encounter Results (ABNORMAL) HEMATOLOGY (11/22/2021) Analysis Performed At Patho logist Time Signature Hemoglobin 9.6 (L) 12.0 - APS SPECTRA 16.0 g/dL [facility] Hemoglobin x 3 28.8 (L) 36.0 - APS SPECTRA 48.0 % [facility] Specimen (Source) Anatomical Collection Method Collection Time Re ceived Time Location / / Volume Laterality 11/22/2021 11/23/2021 1:49 PM CDT Narrative APS SPECTRA [facility] - 11/23/2021 Unless otherwise specified, test(s) performed at: [facility], [address] [place] [address] VENEER TAPING MACHINE OFFBEARER: Carl Paula M.D. For any questions, please call customer service at FREQUENCY:OTHER Resulting Agency Comment Specimen source: Blood Landon Calvert MD LAB BLOOD ORDERABLES Performing Organization Address City/State/ZIP Code Phon e Number APS SPECTRA [facility] documented in this encounter Visit Diagnoses Not on filedocumented in this encounter Care Teams Design Quality Engineer Relationship Specialty Start Date End Date Fabian Arias MD PCP - General Family Medicine 09/04/[address] [place] [address] documented as of this encounter
--- OUTSIDE RECORDS SUMMARY | 2022-03-08 08:40 | XMS_ITS | Encounter Summary ---
:1940 Author Organization [facility] Address [address] [place] [address] Care Team Providers Name Role Phone Fabian Arias MD Primary Care Provider Encounter Details Date Type Department Care Team Description 2021 Treatment [facility] f Landon Zarate MD [address] [place] [address] [place], [place] [phone] (Wo rk) Social History Tobacco Use Types Packs/Day Years Used Date Smoking Tobacco: Smoker, Current Cigarettes Started: 07/01/1976 Status Unknown Sex Assigned at Date Recorded Not on file documented as of this encounter Miscellaneous Notes Dialysis Note - Landon Calvert MD - 2021 10:28 AM CDT Date: 2021 Patient Name: Zamzam Garibay : 1940 Chart #: [id number] Sex: F This patient was personally seen for a basic visit as part of routine weekly dialysis care. A reviewof the dialysis treatment, blood pressure, estimated dry weight and recent lab values was made. These were discussed with the patient and staff as necessary. Treatment Data for 2021 started at:6:08 AM Dialyzer: 160NRe Optiflux Na: 137 mEq/L Bicarb: 33 mEq/L Dialysate: 3.0 K, 2.5 Ca, 1.0 Mg, 100 Dextrose (G3251) Dialysate/Machine Temp (prescribed): 37 C Dialysate/Machine Temp (actual): 37 C BFR (prescribed): 400 BFR (actual): 400 Prescribed time: 03:30 EDW: 49.5 kg Access Type: Active (In Use):CVCatheter-Tunneled/Chest Pre Dialysis Vitals (for 2021 5:59 AM ) Pre BP (sit): 193/93 Pre Wt: 51.7 kg Temp: 95.2 F Post Dialysis Vitals (for 12/25/2021 9:40 AM ) Post BP (sit): 170/76 Post Wt: 50.5 kg Current Dialysis Vitals (for 2021 9:33 AM ) BP (sit): 138/82 AP(-) / COST ANALYST: 189/134 Pulse: 90 Chairside data as of 2021 9:33 AM Last 3 Treatments 12/25/2021 12/22/2021 12/20/2021 EDW (kg) 49.5 49.5 49.5 Weight Pre (kg) 52.3 54.3 53.5 Weight Post (kg) 50.5 51.5 51.6 Dialytic Weight Loss (kg) -1.8 -2.8 -1.9 EDW Deviation (kg) 1.0 2.0 2.1 BP Sit Pre 197/100 183/97 204/106 BP Sit Post 170/76 161/80 188/94 UF Rate (mL/kg/hr) 10 16 11 Prescribed BFR 400 400 400 Average [...] 2000 units IVP Every Treatment 07/05/2021 07/04/2022 Sodium Ferric Gluconate (Ferrlecit) 125 mg IV Every Treatment 12/06/2021 01/03/2022 SCIENTIFIC SOFTWARE DEVELOPER: Landon Calvert MD LOCATION: [phone] SCHEDULE: -- 2nd Shift ACCESS: EDW: kg. DIALYZER: HD DURATION: NEEDLE SIZE: ANTICOAG: BATH: QB: ml/min QD: ml/min Subjective Tolerating dialysis well. 12/27/21: It [birth year] birthday today! She [...] She denies any SOB or orthopnea at [facility]. 12/06/21: She says she feels well. Her [...] her daughter and grandchild up in the [facility]. No symptoms of fluid overload, [...] She has access appt on 10/03 at [facility]. No concerns today. 09/06/21: She is 9 [...] This is Jaz's first day back from [facility] isolation unit. She says she had no symptoms, but her son tested her when she was fatigued and had fever. She reports now having no symptoms at all. She says she feels great. Fluid gains have been better. Only complaint is acid reflux with once weekly vomiting up acid in her mouth and she says she used to be on acid pad extractor tender but she hasn't had it sincebeing in [...] in the hospital overnight last month at [facility], SOB resolved with fluid removal. Can't remove [...] HD. 04/26/21: She was hospitalized briefly at [facility] for dyspnea, no pneumonia but rather related to CHF. She saw cardiology in follow-up in clinic, lisinopril and metoprolol and lasix with UF on HD to dry weight recommended. She is not interested in home dialysis, discussed today. 04/12/21: Patient new to me. She followed with manufacturing intern in [facility], did not follow-up,crashed into dialysis [...] mouth once a day 04/12/2021 RenaPlex-D (vit b,o-vn-xsiq-selen-vit d3-e) 800 mcg-12.5 mg-2,000 unit tablet Take 1 tablet by mouthonce a day trazodone 50 mg tablet Take 1 tablet by mouth every night as needed 04/12/2021 Allergy List Allergen Reaction Reaction Severity Onset Date Venofer Skin rash Medications reviewed and no changes were made. BUN mg/dL 56 (11/29/21) 64 (11/01/21) 61 [...] (11/01/21) 2.1700 (10/04/21) 2.2200 (08/30/21) 1.9000 (08/07/21) HEMOGLOBIN (G/DL) IN BLOOD g/dL 9.5 (12/20/21) 8.9 (12/13/21) 8.0 (12/06/21) 9.8 (11/29/21) 9.6 (11/22/21) PLATELETS 1000/mcL 358 (11/29/21) 352 (11/01/21) 299 (08/30/21) 329 (08/02/21) 390 (07/05/21) IRON SATURATION % 6 (11/29/21) 14 (11/01/21) 11 (10/04/21) 16 (08/30/21) 18 (08/02/21) FERRITIN ng/mL 28 (10/18/21) 39 (10/04/21) 293 (07/05/21) 250 (05/10/21) ALBUMIN (G/DL) g/dL 3.8 (11/29/21) 4.0 (11/01/21) 3.8 (10/04/21) Sodium mEq/L 142 (11/29/21) 136 (11/01/21) 138 (10/04/21) POTASSIUM (MMOL/L) IN SER/PLAS mEq/L 4.3 (11/29/21) 5.2 (11/01/21) 5.1 (10/04/21) BICARBONATE (CO2) mEq/L 23 (11/29/21) 23 (11/01/21) 13 (10/04/21) BUN/CREATININE (MASS RATIO) IN SER/PLAS 6.0 (11/29/21) 7.2 (11/01/21) 7.6 (10/04/21) Calcium mg/dL 9.1 (11/29/21) 10.3 (11/08/21) 10.3 (11/06/21) Calcium Phos Product 61 (11/29/21) 75 (11/01/21) 78 (10/04/21) CALCIUM (MG/DL) CORRECTED FOR ALBUMIN IN SER/PLAS mg/dL 9.3 (11/29/21) 10.2 (11/01/21) 9.8 (10/04/21) PHOSPHATE (MG/DL) IN SER/PLAS mg/dL 6.7 (11/29/21) 7.4 (11/01/21) 8.1 (10/04/21) IPTH pg/mL 138 (11/08/21) 232 (10/04/21) 254 (07/05/21) Vascular Access Assessment: Type of access: Catheterand LUE AVF New access surgery planned in December 2021 12/06/21: Attempted using AVF with one 17g needle, infiltrated, now pulling clots. Does not seem usable to me based on this and how it feels. 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 Will need new access placement. She is being set up for vein mapping and surgeon consult Impression and Plan Stable dialysis, no changes today But BP too high at start of treatment, will have her try taking the low dose metoprolol before treatment She will start monitoring BP at home as well Access surgery planned January 09 Landon Calvert MD [ Signed And locked electronically On 2021 at 10:30:34 AM ] Transcribed: Landon Calvert ( 2021 ) documented in this encounter Plan of Treatment Not on filedocumented as of this encounter Visit Diagnoses Not on filedocumented in this encounter Care Teams Real Estate Instructor Relationship Specialty Start Date End Date Fabian Arias MD PCP - General Family Medicine 09/04/[address] [place] [address] documented as of this encounter
--- OUTSIDE RECORDS SUMMARY | 2022-03-08 08:40 | XMS_ITS | Encounter Summary ---
:1940 Author Organization [facility] Address [address] [place] [address] Care Team Providers Name Role Phone Fabian Arias MD Primary Care Provider Encounter Details Date Type Department Care Team Description 02/02/2022 Treatment [facility] Adriane Carreno, FAHEEM [address] [place] [address] [address] [place], [place] [address] [place], [place] [phone] (Wo rk) Social History Tobacco Use Types Packs/Day Years Used Date Smoking Tobacco: Smoker, Current Cigarettes Started: 07/01/1976 Status Unknown Sex Assigned at Date Recorded Not on file documented as of this encounter Plan of Treatment Not on filedocumented as of this encounter Visit Diagnoses Not on filedocumented in this encounter Care Teams Grinding Operator Relationship Specialty Start Date End Date Fabian Arias MD PCP - General Family Medicine 09/04/[address] [place] [address] documented as of this encounter
--- OUTSIDE RECORDS SUMMARY | 2022-03-08 08:41 | XMS_ITS | Encounter Summary ---
:1940 Author Organization [facility] Address [address] [place] [address] Care Team Providers Name Role Phone Fabian Arias MD Primary Care Provider Encounter Details Date Type Department Care Team Description 06/29/2021 Orders Only [facility] f Landon Zarate MD [address] [place] [address] [place], [place] [phone] (Wo rk) Social History Tobacco Use Types Packs/Day Years Used Date Smoking Tobacco: Never Assessed Sex Assigned at Date Recorded Not on file documented as of this encounter Plan of Treatment Not on filedocumented as of this encounter Procedures Procedure Name Priority Date/Time Associated Diagnosis Comme nts SARS COV 2 BY PCR () Routine 06/29/2021 Resul ts for this procedure are i n the results section . documented in this encounter Results (ABNORMAL) SARS-CoV-2 by PCR (06/29/2021) [facility] Method Time Signature SARS CoV-2 by Positive (A) Negative APS SPECTRA PCR [facility] Comment: Positive: SARS-CoV-2 detected Testing identified the presence of SARS- CoV-2 (the virus that causes COVID-19) in the patient's sample. This test was developed for the detectio n of nucleic acids from the SARS-CoV-2 virus by RT-PCR in individual s who meet SARS-CoV-2 clinical and/or epidemiological criteria. This test has not been FDA cleared or ap proved. This test has been authorized by FDA und er an EUA for use by the authorized laboratory. This test is only authorized for the duration of time that the Naval Designer of the HHS decla res circumstances exist justifying the authorization of the christiano gency use of in vitro diagnostic tests for detection of SARS-CoV-2 virus and/or diagnosis of COVID-19 infection under section 564(b)(1) of the Act, 21 U.S.C. 360bbb-3(b)(1), unless the authorization is terminated o r revoked sooner. To learn more about this test, go to https://www.CAPNIA/pages/carpo58-czlb rts Performed by: PLACIDO Wong [id number], CLIA 0 [id number], [address] [place] [address] Etl Consultant: Anthony Keen, Ph D, [facility], [facility] ([facility]) Performed by: JANNA Wong [id number], [address] ??[place] [address], Sp Gonzales MD First COVID-19 Test? NO APS SPECT RA [facility] Employed in Healthcare? UNKNOWN APS SP ECTRA [facility] Patient Symptomatic UNKNOWN APS SPECTR A [facility] Congregate Setting? UNKNOWN APS SPECTR A [facility] ? NO APS SPECTRA [facility] Patient Occupation UNKNOWN APS SPECTRA [facility] Specimen Source ANTERIOR NARES APS SPECT RA [facility] Specimen (Source) Anatomical Collection Method Collection Time Re ceived Time Location / / Volume Laterality 06/29/2021 06/30/2021 6:33 PM CHEMISTRY ASSOCIATE Narrative APS SPECTRA [facility] - 06/30/2021 Unless otherwise specified, test(s) performed at: [facility], [facility] [place] [address] [address] QUALITY PROJECT MANAGER: Darnell Nguyen M.D. For any questions, please call customer service at FREQUENCY:OTHER Resulting Agency Comment Specimen source: Swab/ANTERIOR NARES Landon Calvert MD LAB [id number] NSOLICITED RESULTS Performing Organization Address City/State/ZIP Code Phon e Number APS SPECTRA [facility] documented in this encounter Visit Diagnoses Not on filedocumented in this encounter Care Teams Staff Air Defense Officer Relationship Specialty Start Date End Date Fabian Arias MD PCP - General Family Medicine 09/04/[address] [place] [address] documented as of this encounter
--- OUTSIDE RECORDS SUMMARY | 2022-03-08 08:41 | XMS_ITS | Encounter Summary ---
:1940 Author Organization [facility] Address [address] [place] [address] Care Team Providers Name Role Phone Fabian Arias MD Primary Care Provider Encounter Details Date Type Department Care Team Description 08/16/2021 Orders Only [facility] f Landon Zarate MD [address] [place] [address] [place], [place] [phone] (Wo rk) Social History Tobacco Use Types Packs/Day Years Used Date Smoking Tobacco: Smoker, Current Cigarettes Started: 07/01/1976 Status Unknown Sex Assigned at Date Recorded Not on file documented as of this encounter Plan of Treatment Not on filedocumented as of this encounter Procedures Procedure Name Priority Date/Time Associated Diagnosis Comme nts HEMATOLOGY Routine 08/16/2021 Results for thi s procedure are in the resu lts section. documented in this encounter Results (ABNORMAL) HEMATOLOGY (08/16/2021) Analysis Performed At Patho logist Time Signature Hemoglobin 9.1 (L) 12.0 - APS SPECTRA 16.0 g/dL [facility] Hemoglobin x 3 27.3 (L) 36.0 - APS SPECTRA 48.0 % [facility] Specimen (Source) Anatomical Collection Method Collection Time Re ceived Time Location / / Volume Laterality 08/16/2021 08/17/2021 6:02 PM CASH CROP FARMER Narrative APS SPECTRA [facility] - 08/17/2021 Unless otherwise specified, test(s) performed at: [facility], [address] [place] [id number] BILLET SAWYER: Carl Paula, M.D. For any questions, please call customer service at FREQUENCY:OTHER Resulting Agency Comment Specimen source: Blood Landon Calvert MD LAB BLOOD ORDERABLES Performing Organization Address City/State/ZIP Code Phon e Number APS SPECTRA [facility] documented in this encounter Visit Diagnoses Not on filedocumented in this encounter Care Teams Ink Maker Relationship Specialty Start Date End Date Fabian Arias MD PCP - General Family Medicine 09/04/[address] [place] [address] documented as of this encounter
--- OUTSIDE RECORDS SUMMARY | 2022-03-08 08:41 | XMS_ITS | Encounter Summary ---
:1940 Author Organization [facility] Address [address] [place] [address] Care Team Providers Name Role Phone Fabian Arias MD Primary Care Provider Encounter Details Date Type Department Care Team Description 07/19/2021 Orders Only [facility] O f Landon Zarate MD [address] [place] [address] [place], [place] [phone] (Wo rk) Social History Tobacco Use Types Packs/Day Years Used Date Smoking Tobacco: Smoker, Current Cigarettes Started: 07/01/1976 Status Unknown Sex Assigned at Date Recorded Not on file documented as of this encounter Plan of Treatment Not on filedocumented as of this encounter Procedures Procedure Name Priority Date/Time Associated Diagnosis Comme nts HEMATOLOGY Routine 07/19/2021 Results for thi s procedure are in the resu lts section. documented in this encounter Results (ABNORMAL) HEMATOLOGY (07/19/2021) Analysis Performed At Patho logist Time Signature Hemoglobin 9.1 (L) 12.0 - APS SPECTRA 16.0 g/dL [facility] Hemoglobin x 3 27.3 (L) 36.0 - APS SPECTRA 48.0 % [facility] Specimen (Source) Anatomical Collection Method Collection Time Re ceived Time Location / / Volume Laterality 07/19/2021 07/21/2021 11:4 0 AM DRY CHAIN PULLER Narrative APS SPECTRA [facility] - 07/21/2021 Unless otherwise specified, test(s) performed at: [facility], [address] [place] [address] BLAST FURNACE HELPER: Carl Paula M.D. For any questions, please call customer service at FREQUENCY:OTHER Resulting Agency Comment Specimen source: Blood Landon Calvert MD LAB BLOOD ORDERABLES Performing Organization Address City/State/ZIP Code Phon e Number APS SPECTRA [facility] documented in this encounter Visit Diagnoses Not on filedocumented in this encounter Care Teams Regulatory Compliance Engineer Relationship Specialty Start Date End Date Fabian Arias MD PCP - General Family Medicine 09/04/[address] [place] [address] documented as of this encounter
--- OUTSIDE RECORDS SUMMARY | 2022-03-08 08:41 | XMS_ITS | Encounter Summary ---
:1940 Author Organization [facility] Address [address] [place] [address] Care Team Providers Name Role Phone Fabian Arias MD Primary Care Provider Encounter Details Date Type Department Care Team Description 07/05/2021 Treatment [facility] Landon Zarate MD [address] [place] [address] [place], [place] [phone] (Wo rk) Social History Tobacco Use Types Packs/Day Years Used Date Smoking Tobacco: Never Assessed Sex Assigned at Date Recorded Not on file documented as of this encounter Miscellaneous Notes Dialysis Note - Landon Calvert MD - 07/05/2021 8:59 AM CST Date: Jul 05, 2021 Patient Name: Zamzam Garibay : 1940 Chart #: [id number] Sex: F This patient was personally seen for a complete visit as part of routine monthly dialysis care. A review of the dialysis treatment, blood pressure, estimated dry weight and recent lab values was made. These were discussed with the patient and staff as necessary. Treatment Data for 07/05/2021 started at:6:45 AM Dialyzer: 160NRe Optiflux Na: 137 mEq/L Bicarb: 35 mEq/L Dialysate: 3.0 K, 2.25 Ca, 1.0 Mg, 100 Dextrose (G3231) Dialysate/Machine Temp (prescribed): 37 C Dialysate/Machine Temp (actual): 36.3 C BFR (prescribed): 400 BFR (actual): 350 Prescribed time: 03:30 EDW: 44 kg Access Type: Active (In Use):CVCatheter-Tunneled/Chest Pre Dialysis Vitals (for 07/05/2021 6:39 AM ) Pre BP (sit): 114/66 Pre Wt: 45.2 kg Temp: 96 F Post Dialysis Vitals (for 07/04/2021 11:36 AM ) Post BP (sit): 154/77 Post Wt: 44.8 kg Current Dialysis Vitals (for 07/05/2021 8:36 AM ) BP (sit): 121/62 AP(-) / FIELD MARKETING MANAGER: 172/117 Pulse: 80 Chairside data as of 07/05/2021 8:36 AM Last 3 Treatments 07/04/2021 07/03/2021 (Absent) 07/02/2021 EDW (kg) 44 44 Weight Pre (kg) 45.5 44.6 Weight Post (kg) 44.8 44.2 Dialytic Weight Loss (kg) -0.7 -0.4 EDW Deviation (kg) 0.8 0.2 BP Sit Pre 173/86 172/93 BP Sit Post 154/77 128/69 UF Rate (mL/kg/hr) 5 3 Prescribed BFR 400 400 Average Delivered BFR 420 380 Prescribed Treatment Time 03:30 03:30 Actual Treatment Time 03:30 02:36 Treatment Medication Orders Medication Sig Start Date End Date Heparin Sodium (Porcine) 1,000 Units/mL Catheter Lock Arterial 2000 units Arterial Red Port Every Treatment 06/22/2021 06/19/2022 Heparin Sodium (Porcine) 1,000 Units/mL Catheter Lock Arterial 2000 units Arterial Red Port Every Treatment 04/05/2021 04/04/2022 Heparin Sodium (Porcine) 1,000 Units/mL Catheter Lock Venous 2000 units Venous Blue Port Every Treatment 06/22/2021 06/19/2022 Heparin Sodium (Porcine) 1,000 Units/mL Catheter Lock Venous 2000 units Venous Blue Port Every Treatment 04/05/2021 04/04/2022 Heparin Sodium (Porcine) 1,000 Units/mL Systemic 1000 units IVP Every Treatment 06/22/2021 06/19/2022 Heparin Sodium (Porcine) 1,000 Units/mL Systemic 3000 units IVP Every Treatment 06/22/2021 06/19/2022 Heparin Sodium (Porcine) 1,000 Units/mL Systemic 1000 units IVP Every Treatment 05/10/2021 05/09/2022 Heparin Sodium (Porcine) 1,000 Units/mL Systemic 3000 units IVP Every Treatment 05/10/2021 05/09/2022 Vitamin D (Calcitriol) Oral 1.0 mcg ORAL Every Treatment 06/22/2021 06/19/2022 Vitamin D (Calcitriol) Oral 1.0 mcg ORAL Every Treatment 06/05/2021 06/04/[address] RADIO TECHNICIAN: Landon Calvert MD LOCATION: [phone] SCHEDULE: -W- 2nd Shift EDW: kg. DIALYZER: HD DURATION: NEEDLE SIZE: ANTICOAG: BATH: QB: ml/min QD: ml/min Subjective 07/05/21: This is Jaz's first day back from [facility] unit. She says she had no symptoms, but her son tested her when she was fatigued and had fever. She reports now having no symptoms at all. She says she feels great. Fluid gains have been better. Only complaint is acid reflux with once weekly vomiting up acid in her mouth and she says she used to be on acid devops consultant but [place] her med list [...] in the hospital overnight last month at [place], SOB resolved with fluid removal. Can't remove [...] HD. 04/26/21: She was hospitalized briefly at [facility] for dyspnea, no pneumonia but rather related to CHF. She saw cardiology in follow-up in clinic, lisinopril and metoprolol and lasix with UF on HD to dry weight recommended. She is not interested in home dialysis, discussed today. 04/12/21: Patient new to me. She followed with pnp in [facility], did not follow-up,crashed into dialysis in [...] edema. Access - PCAD c/d/i, AVF LUE with good t/b but not mature and tributaries present Medication List Medication Sig Start Date B Complex 1 (with folic acid) (vitamin b complex-folic acid) 0.4 mg tablet Take 1 tablet by mouth once a day 04/12/2021 calcium acetate(phosphat bind) 667 mg capsule Take 1 capsule by mouth three times a day with meals 04/12/2021 furosemide 80 mg tablet Take 1 [...] mouth once a day 04/12/2021 RenaPlex-D (vit b,g-sj-mywv-selen-vit d3-e) 800 mcg-12.5 mg-2,000 unit tablet Take 1 tablet by mouthonce a day trazodone 50 mg tablet Take 1 tablet by mouth every night as needed 04/12/2021 Allergy List Allergen Reaction Reaction Severity Onset Date Venofer Skin rash Medications reviewed and no changes were made. Treatment and Adequacy Assessment BUN mg/dL 64 (05/31/21) 61 (05/03/21) UREA NITROGEN (MG/DL) IN SER/PLAS - POST DIALYSIS mg/dL 11 (05/31/21) 10 (05/03/21) URR % 83 (05/31/21) 84 (05/03/21) spKt/V Gotch 2.12 (05/31/21) 2.1 (05/03/21) eKdrt/V 1.79 (05/31/21) 1.78 (05/03/21) spKt/V (Daugirdas II) 2.1200 (05/31/21) 2.1200 (05/03/21) Dialysis is adequate. Achieves prescribed time - Yes Achieves prescribed frequency - Yes Continue current prescription. Vascular Access Assessment Type of access: Catheterand LUE AVF Duplex u/s of 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 Have had difficulty getting her into [facility], now has procedure scheduled at [facility] but delayed until August due to COVID infection Anemia Assessment HEMOGLOBIN (G/DL) IN BLOOD g/dL 12.2 (06/22/21) 11.8 (06/21/21) 10.4 (06/14/21) 10.0 (06/07/21) 10.0 (05/31/21) PLATELETS 1000/mcL 245 (05/31/21) 236 (05/03/21) IRON SATURATION % 18 (05/31/21) 30 (05/03/21) FERRITIN ng/mL 250 (05/10/21) Hemoglobin is above goal. Iron Saturation is below goal. Ferritin is below goal. Will adjust CARIE and intravenous iron per protocol. No Venofer, reaction No CARIE with Hgb >11 Nutritional and Metabolic Assessment ALBUMIN (G/DL) g/dL 3.7 (05/31/21) 3.8 (05/03/21) Sodium mEq/L 140 (05/31/21) 137 (05/03/21) POTASSIUM (MMOL/L) IN SER/PLAS mEq/L 3.7 (05/31/21) 4.2 (05/03/21) BICARBONATE (CO2) mEq/L 25 (05/31/21) 27 (05/03/21) Albumin is below goal. Potassium is at goal. Bicarbonate is at goal. Continue same bicarbonate in dialysate. Bone and Mineral Metabolism Assessment Calcium mg/dL 9.3 (05/31/21) 9.1 (05/03/21) CALCIUM (MG/DL) CORRECTED FOR ALBUMIN IN SER/PLAS mg/dL 9.5 (05/31/21) 9.3 (05/03/21) PHOSPHATE (MG/DL) IN SER/PLAS mg/dL 6.3 (05/31/21) 6.0 (05/03/21) CALCIUM PHOSPHORUS PRODUCT, COR 60 (05/31/21) 56 (05/03/21) IPTH pg/mL 493 (05/31/21) 505 (05/03/21) 694 (04/05/21) Corrected Calcium is at goal. Phosphorous is above goal. Intact PTH is at goal. Forging Die Sinker will adjust binders and vitamin D per protocol and continue to provide dietary education. Continue Ca acetate and calcitriol Cardiovascular Assessment Blood pressures reviewed and are acceptable. Intradialytic weight gains are appropriate. Estimated dry weight is appropriate. Continue same cardiovascular medications. Fluid gains improved Transplant Status: Patient is not a candidate. age and co-morbidities Resuscitation Status Stable dialysis, no change to prescription I will re-start PPI for GERD symptoms Access procedure re-scheduled to August Landon Calvert MD [ Signed And locked electronically On 07/05/2021 at 09:03:06 AM ] Transcribed: Landon Calvert ( 07/05/2021 ) documented in this encounter Plan of Treatment Not on filedocumented as of this encounter Visit Diagnoses Not on filedocumented in this encounter Care Teams Resolution Agent Relationship Specialty Start Date End Date Fabian Arias MD PCP - General Family Medicine 09/04/[address] [place] [address] documented as of this encounter
--- OUTSIDE RECORDS SUMMARY | 2022-03-08 08:41 | XMS_ITS | Encounter Summary ---
:1940 Author Organization [facility] Address [address] [place] [address] Care Team Providers Name Role Phone Fabian Arias MD Primary Care Provider Encounter Details Date Type Department Care Team Description 05/17/2021 Treatment [facility] Landon Zarate MD [address] [place] [address] [place], [place] [phone] (Wo rk) Social History Tobacco Use Types Packs/Day Years Used Date Smoking Tobacco: Never Assessed Sex Assigned at Date Recorded Not on file documented as of this encounter Miscellaneous Notes Dialysis Note - Landon Calvert MD - 05/17/2021 11:31 AM CST Date: May 17, 2021 Patient Name: Zamzam Garibay : 1940 Chart #: [id number] Sex: F This patient was personally seen for a basic visit as part of routine weekly dialysis care. A reviewof the dialysis treatment, blood pressure, estimated dry weight and recent lab values was made. These were discussed with the patient and staff as necessary. Treatment Data for 05/17/2021 started at:9:44 AM Dialyzer: 160NRe Optiflux Na: 137 mEq/L Bicarb: 35 mEq/L Dialysate: 3.0 K, 2.25 Ca, 1.0 Mg, 100 Dextrose (G3231) Dialysate/Machine Temp (prescribed): 37 C Dialysate/Machine Temp (actual): 36.8 C BFR (prescribed): 400 BFR (actual): 400 Prescribed time: 03:30 EDW: 41.5 kg Access Type: Active (In Use):CVCatheter-Tunneled/Chest Pre Dialysis Vitals (for 05/17/2021 9:41 AM ) Pre BP (sit): 166/85 Pre Wt: 45.8 kg Temp: 97.7 F Post Dialysis Vitals (for 05/15/2021 1:18 PM ) Post BP (sit): 142/57 Post Wt: 44.2 kg Current Dialysis Vitals (for 05/17/2021 11:05 AM ) BP (sit): 134/76 AP(-) / PRECISION LATHE OPERATOR: 201/140 Pulse: 84 Chairside data as of 05/17/2021 11:05 AM Last 3 Treatments 05/15/2021 05/12/2021 05/10/2021 EDW (kg) 41.5 41.5 41.5 Weight Pre (kg) 46.5 45.5 45.3 Weight Post (kg) 44.2 44 42.8 Dialytic Weight Loss (kg) -2.3 -1.5 -2.5 EDW Deviation (kg) 2.7 2.5 1.3 BP Sit Pre 138/82 150/74 146/74 BP Sit Post 142/57 112/57 140/86 UF Rate (mL/kg/hr) 16 10 17 Prescribed BFR 400 400 400 Average Delivered BFR 400 400 390 Prescribed Treatment Time 03:30 03:30 03:30 Actual Treatment Time 03:31 03:32 03:30 Treatment Medication Orders Medication Sig Start [...] 3000 units IVP Every Treatment 05/10/2021 05/09/2022 Mircera 50 mcg IVP Every 4 weeks 05/17/2021 05/16/2022 Vitamin D (Calcitriol) Oral 0.75 mcg ORAL Every Treatment 05/08/2021 05/07/2022 PROFESSOR OF LATIN AMERICAN STUDIES: Landon Calvert MD LOCATION: [phone] SCHEDULE: - 2nd Shift ACCESS: EDW: kg. DIALYZER: HD DURATION: NEEDLE SIZE: ANTICOAG: BATH: QB: ml/min QD: ml/min Subjective 05/17: She feels well. Has no complaints [...] HD. 04/26/21: She was hospitalized briefly at [place] for dyspnea, no pneumonia but rather related to CHF. She saw cardiology in follow-up in clinic, lisinopril and metoprolol and lasix with UF on HD to dry weight recommended. She is not interested in home dialysis, discussed today. 04/12/21: Patient new to me. She followed with senior digital designer in [facility], did not follow-up,crashed into dialysis [...] is now being stopped. Advanced Practitioner Subjective: None reported. Problem List Description ICD9 Code [...] mouth once a day 04/12/2021 RenaPlex-D (vit b,e-ay-bkzl-selen-vit d3-e) 800 mcg-12.5 mg-2,000 unit tablet Take 1 tablet by mouthonce a day trazodone 50 mg tablet Take 1 tablet by mouth every night as needed 04/12/2021 Allergy List Allergen Reaction Reaction Severity Onset Date Venofer Skin rash Medications reviewed and no changes were made. BUN mg/dL 61 (05/03/21) UREA NITROGEN (MG/DL) IN SER/PLAS - POST DIALYSIS mg/dL 10 (05/03/21) URR % 84 (05/03/21) spKt/V Gotch 2.1 (05/03/21) eKdrt/V 1.78 (05/03/21) spKt/V (Daugirdas II) 2.1200 (05/03/21) HEMOGLOBIN (G/DL) IN BLOOD g/dL 9.8 (05/10/21) 10.4 (05/03/21) 10.0 (04/26/21) 10.3 (04/12/21) PLATELETS 1000/mcL 236 (05/03/21) IRON SATURATION % 30 (05/03/21) FERRITIN ng/mL 250 (05/10/21) ALBUMIN (G/DL) g/dL 3.8 (05/03/21) Sodium mEq/L 137 (05/03/21) POTASSIUM (MMOL/L) IN SER/PLAS mEq/L 4.2 (05/03/21) BICARBONATE (CO2) mEq/L 27 (05/03/21) BUN/CREATININE (MASS RATIO) IN SER/PLAS 11.4 (05/03/21) Calcium mg/dL 9.1 (05/03/21) Calcium Phos Product 55 (05/03/21) CALCIUM (MG/DL) CORRECTED FOR ALBUMIN IN SER/PLAS mg/dL 9.3 (05/03/21) PHOSPHATE (MG/DL) IN SER/PLAS mg/dL 6.0 (05/03/21) IPTH pg/mL 505 (05/03/21) 694 (04/05/21) Vascular Access Assessment: Type of access: Catheterand JOHN AVF Will have her complete ultrasound of AVF to assess depth, size, and tributary. May need ligation/elevation. Impression and Plan Stable dialysis COVID booster recommended, she will arrange through PCP as above as she declined it here last week She has appt with vascular surgeon and vein mapping coming up Landon Calvert MD [ Signed And locked electronically On 05/17/2021 at 11:33:03 AM ] Transcribed: Landon Calvert ( 05/17/2021 ) documented in this encounter Plan of Treatment Not on filedocumented as of this encounter Visit Diagnoses Not on filedocumented in this encounter Care Teams Staff Forester Relationship Specialty Start Date End Date Fabian Arias MD PCP - General Family Medicine 09/04/[address] [place] [phone] documented as of this encounter
--- OUTSIDE RECORDS SUMMARY | 2022-03-08 08:41 | XMS_ITS | Encounter Summary ---
:1940 Author Organization [facility] Address [address] [place] [address] Care Team Providers Name Role Phone Fabian Arias MD Primary Care Provider Encounter Details Date Type Department Care Team Description 07/04/2021 Orders Only [facility] f Landon Zarate MD [phone] [place] [address] [place], [place] [phone] (Wo rk) Social History Tobacco Use Types Packs/Day Years Used Date Smoking Tobacco: Never Assessed Sex Assigned at Date Recorded Not on file documented as of this encounter Plan of Treatment Not on filedocumented as of this encounter Procedures Procedure Name Priority Date/Time Associated Diagnosis Comme nts SARS COV 2 BY PCR (HC) Routine 07/04/2021 Resul ts for this procedure are i n the results section . HEMATOLOGY Routine 07/04/2021 Results for thi s procedure are i n the results section . documented in this encounter Results (ABNORMAL) HEMATOLOGY (07/04/2021) Analysis Performed At Patho logist Time Signature Hemoglobin 10.8 (L) 12.0 - [facility]PS [facility]RA 16.0 g/dL [facility] Hemoglobin x 3 32.4 (L) 36.0 - APS [facility]RA 48.0 % [facility] Specimen (Source) Anatomical Collection Method Collection Time Re ceived Time Location / / Volume Laterality 07/04/2021 07/07/2021 1:15 PM PIECE WORK CHECKER Narrative [facility] - 07/07/2021 Unless otherwise specified, test(s) performed at: [facility], [address] [place] [id number] LUMBER STACKER DRIVER: Carl Paula M.D. For any questions, please call customer service at FREQUENCY:OTHER Resulting Agency Comment Specimen source: Blood Landon Calvert MD LAB BLOOD ORDERABLES Performing Organization Address City/State/ZIP Code Phon e Number [facility] SARS-CoV-2 by PCR (07/04/2021) P athologist Signature SARS CoV-2 by Negative Negative [facility] PCR [facility] Comment: Negative: SARS-CoV-2 not detected Testing did not identify the presence of SARS-CoV-2 (the virus that causes COVID-19) in the patient's sample . Many factors can impact the sensitivity of this test, including variability in sample collection techniq ue, stage of infection, or the presence of interfering substances. Dean ection of multiple samples may be necessary to detect the SARS-CoV-2 vi aries. If clinically indicated, consider collecting a new sample for COV ID-19 testing or testing for other respiratory viruses. This test was developed for the detectio n of nucleic acids from the SARS-CoV-2 virus using RT-PCR from upper respiratory specimens. This test has not been FDA cleared or ap proved; it is offered as a laboratory developed test (LDT). The performance characteristics of the a ssay have been determined by [facility] and validation of the assay meets regulatory standards. Test results could be affected by several dif ferent events that are rare but sometimes do occur, and which may affect detection of the target. These include but are not limited to variation in specimen collection, delays in transportation, and very rarely, labo ratory error. In such cases, collection of a new specimen and re-test ing may be indicated. These tests meet requirements for domestic and international travel. All dates listed in this report are in GMT. To learn more about this test, go to [email or web address] Performed by: PLACIDO Wong [id number], CLIA [id number], [address] [place] [address] Practice Specialist: Anthony Keen, Ph D, FACMG, FFSC ([facility]) Performed by: JANNA Wong [id number], [address] ??[place] [address], Sp Gonzales MD First COVID-19 Test? UNKNOWN APS SPECT RA [facility] Employed in Healthcare? NO APS SP ECTRA [facility] Patient Symptomatic UNKNOWN APS SPECTR A [facility] Congregate Setting? UNKNOWN APS SPECTR A [facility] ? NO APS SPECTRA [facility] Patient Occupation UNKNOWN APS SPECTRA [facility] Specimen Source ANTERIOR NARES APS SPECT RA [facility] Specimen (Source) Anatomical Collection Method Collection Time Re ceived Time Location / / Volume Laterality 07/04/2021 07/06/2021 6:15 AM PIECE WORK CHECKER Narrative [facility]PS [facility] - 07/06/2021 Unless otherwise specified, test(s) performed at: [facility], [address] [place] [address] , [place] [address] LUMBER STACKER DRIVER: Darnell Nguyen M.D. For any questions, please call customer service at FREQUENCY:OTHER Resulting Agency Comment Specimen source: Swab/ANTERIOR NARES Landon Calvert MD LAB [id number] NSOLICITED RESULTS Performing Organization Address City/State/ZIP Code Phon e Number [facility]PS [facility]RA [facility] documented in this encounter Visit Diagnoses Not on filedocumented in this encounter Care Teams Dye Line Operator Relationship Specialty Start Date End Date Fabian Arias MD PCP - General Family Medicine 09/04/[address] [place] [address] documented as of this encounter
--- OUTSIDE RECORDS SUMMARY | 2022-03-08 08:41 | XMS_ITS | Encounter Summary ---
:1940 Author Organization [facility] Address [address] [place] [address] Care Team Providers Name Role Phone Fabian Arias MD Primary Care Provider Encounter Details Date Type Department Care Team Description 06/07/2021 Orders Only [facility] f Landon Zarate MD [address] [place] [address] [place], [place] [phone] (Wo rk) Social History Tobacco Use Types Packs/Day Years Used Date Smoking Tobacco: Never Assessed Sex Assigned at Date Recorded Not on file documented as of this encounter Plan of Treatment Not on filedocumented as of this encounter Procedures Procedure Name Priority Date/Time Associated Diagnosis Comme nts HEMATOLOGY Routine 06/07/2021 Results for thi s procedure are in the resu lts section. documented in this encounter Results (ABNORMAL) HEMATOLOGY (06/07/2021) Analysis Performed At Patho logist Time Signature Hemoglobin 10.0 (L) 12.0 - A[facility] 16.0 g/dL [facility] Hemoglobin x 3 30.0 (L) 36.0 - A[facility]RA 48.0 % [facility] Specimen (Source) Anatomical Collection Method Collection Time Re ceived Time Location / / Volume Laterality 06/07/2021 06/08/2021 10:0 1 AM FARM TECHNICIAN Narrative APS SPECTRA [facility] - 06/08/2021 Unless otherwise specified, test(s) performed at: [facility], [address] [place] [address] CARDIAC CATH LAB RADIOLOGY TECHNOLOGIST: Carl Paula M.D. For any questions, please call customer service at FREQUENCY:OTHER Resulting Agency Comment Specimen source: Blood Landon Calvert MD LAB BLOOD ORDERABLES Performing Organization Address City/State/ZIP Code Phon e Number [facility]PS S[facility]RA [facility] documented in this encounter Visit Diagnoses Not on filedocumented in this encounter Care Teams Environmental Health Safety Engineer Relationship Specialty Start Date End Date Fabian Arias MD PCP - General Family Medicine 09/04/[address] [place] [address] documented as of this encounter
--- OUTSIDE RECORDS SUMMARY | 2022-03-08 08:41 | XMS_ITS | Encounter Summary ---
:1940 Author Organization [facility] Address [address] [place] [address] Care Team Providers Name Role Phone Fabian Arias MD Primary Care Provider Encounter Details Date Type Department Care Team Description 06/14/2021 Treatment [facility] Landon Zarate MD [address] [place] [address] [place], [place] [phone] (Wo rk) Social History Tobacco Use Types Packs/Day Years Used Date Smoking Tobacco: Never Assessed Sex Assigned at Date Recorded Not on file documented as of this encounter Miscellaneous Notes Dialysis Note - Landon Calvert MD - 06/14/2021 9:44 AM CST Date: Jun 14, 2021 Patient Name: Zamzam Garibay : 1940 Chart #: [id number] Sex: F This patient was personally seen for a complete visit as part of routine monthly dialysis care. A review of the dialysis treatment, blood pressure, estimated dry weight and recent lab values was made. These were discussed with the patient and staff as necessary. Treatment Data for 06/14/2021 started at:6:28 AM Dialyzer: 160NRe Optiflux Na: 137 mEq/L Bicarb: 35 mEq/L Dialysate: 3.0 K, 2.25 Ca, 1.0 Mg, 100 Dextrose (G3231) Dialysate/Machine Temp (prescribed): 37 C Dialysate/Machine Temp (actual): 37 C BFR (prescribed): 400 BFR (actual): 400 Prescribed time: 03:30 EDW: 43 kg Access Type: Active (In Use):CVCatheter-Tunneled/Chest Pre Dialysis Vitals (for 06/14/2021 6:23 AM ) Pre BP (sit): 167/85 Pre Wt: 47.7 kg Temp: 97.2 F Post Dialysis Vitals (for 06/12/2021 10:01 AM ) Post BP (sit): 153/82 Post Wt: 44.9 kg Current Dialysis Vitals (for 06/14/2021 9:34 AM ) BP (sit): 113/60 AP(-) / TRANSITION MANAGER: 207/146 Pulse: 79 Chairside data as of 06/14/2021 9:34 AM Last 3 Treatments 06/12/2021 06/09/2021 06/07/2021 EDW (kg) 43 43 43 Weight Pre (kg) 47 47.8 46.7 Weight Post (kg) 44.9 45.7 44.5 Dialytic Weight Loss (kg) -2.1 -2.1 -2.2 EDW Deviation (kg) 1.9 2.7 1.5 BP Sit Pre 184/89 169/90 166/80 BP Sit Post 153/82 148/72 133/78 UF Rate (mL/kg/hr) 14 14 14 Prescribed BFR 400 400 400 Average Delivered BFR 370 400 390 Prescribed Treatment Time 03:30 03:30 03:30 Actual Treatment Time 03:34 03:31 03:37 Treatment Medication Orders Medication Sig Start Date [...] units IVP Every Treatment 05/10/2021 05/09/2022 Mircera 30 mcg IVP Every 2 weeks 06/14/2021 06/13/2022 Vitamin D (Calcitriol) Oral 1.0 mcg ORAL Every Treatment 06/05/2021 06/04/2022 CONTRACT ASSOCIATE MANAGER: Landon Calvert MD LOCATION: [place] [phone] SCHEDULE: -W- 2nd Shift EDW: kg. DIALYZER: HD DURATION: NEEDLE SIZE: ANTICOAG: BATH: QB: ml/min QD: ml/min Subjective 06/14/21: She was in the hospital overnight last month at [facility], SOB resolved with fluid removal. Can't remove [...] HD. 04/26/21: She was hospitalized briefly at [facility] for dyspnea, no pneumonia but rather related to CHF. She saw cardiology in follow-up in clinic, lisinopril and metoprolol and lasix with UF on HD to dry weight recommended. She is not interested in home dialysis, discussed today. 04/12/21: Patient new to me. She followed with perishable fruit inspector in [facility], did not follow-up,crashed into dialysis in [...] mouth once a day 04/12/2021 RenaPlex-D (vit b,l-cq-bnag-selen-vit d3-e) 800 mcg-12.5 mg-2,000 unit tablet Take [...] tributaries. Have had difficulty getting her into [email or web address], will send to [facility] for fistulagram and vascular consult Anemia Assessment HEMOGLOBIN (G/DL) IN BLOOD g/dL 10.0 (06/07/21) 10.0 (05/31/21) 9.9 (05/24/21) 9.2 (05/17/21) 9.8 (05/10/21) PLATELETS 1000/mcL 245 (05/31/21) 236 (05/03/21) IRON SATURATION % 18 (05/31/21) 30 (05/03/21) FERRITIN ng/mL 250 (05/10/21) Hemoglobin is at goal. Iron Saturation is below goal. Ferritin is below goal. Will adjust CARIE and intravenous iron per protocol. No Venofer, reaction Nutritional and Metabolic Assessment ALBUMIN (G/DL) g/dL [...] above goal. Intact PTH is at goal. Circuit Design Engineer will adjust binders and vitamin D per protocol and continue to provide dietary education. Continue Ca acetate and calcitriol Cardiovascular Assessment Blood pressures reviewed and are acceptable. Intradialytic weight gains are too high. Estimated dry weight is appropriate. Continue same cardiovascular medications. Spent considerable time discussing goal IDWG 2L or less given heart failure and hospitalization for CHF/fluid overload Transplant Status: Patient is not a candidate. age and co-morbidities Resuscitation Status Stable dialysis, no change to prescription To work on fluid gains between treatments to avoid pulmonary edema Send to [facility] for fistulagram and vascular surgery consult Landon Calvert MD [ Signed And locked electronically On 06/14/2021 at 09:51:52 AM ] Transcribed: Landon Calvert ( 06/14/2021 ) documented in this encounter Plan of Treatment Not on filedocumented as of this encounter Visit Diagnoses Not on filedocumented in this encounter Care Teams Ice Cream Dispenser Relationship Specialty Start Date End Date Fabian Arias MD PCP - General Family Medicine 09/04/[address] [place] [phone] documented as of this encounter
--- OUTSIDE RECORDS SUMMARY | 2022-03-08 08:41 | XMS_ITS | Encounter Summary ---
:1940 Author Organization [facility] Address [address] [place] [address] Care Team Providers Name Role Phone Fabian Arias MD Primary Care Provider Encounter Details Date Type Department Care Team Description 09/20/2021 Orders Only [facility] Landon Zarate MD [phone] [place] [address] [place], [place] [phone] (Wo rk) Social History Tobacco Use Types Packs/Day Years Used Date Smoking Tobacco: Smoker, Current Cigarettes Started: 07/01/1976 Status Unknown Sex Assigned at Date Recorded Not on file documented as of this encounter Plan of Treatment Not on filedocumented as of this encounter Procedures Procedure Name Priority Date/Time Associated Diagnosis Comme nts HEMATOLOGY Routine 09/20/2021 Results for thi s procedure are in the resu lts section. documented in this encounter Results (ABNORMAL) HEMATOLOGY (09/20/2021) Analysis Performed At Patho logist Time Signature Hemoglobin 9.6 (L) 12.0 - [facility] 16.0 g/dL [facility] Hemoglobin x 3 28.8 (L) 36.0 - [facility] 48.0 % [facility] Specimen (Source) Anatomical Collection Method Collection Time Re ceived Time Location / / Volume Laterality 09/20/2021 09/21/2021 9:32 AM CDT Narrative APS SPECTRA [facility] - 09/21/2021 Unless otherwise specified, test(s) performed at: [facility], [address] [place] [address] RANCH HAND SUPERVISOR: Carl Paula M.D. For any questions, please call customer service at FREQUENCY:OTHER Resulting Agency Comment Specimen source: Blood Landon Calvert MD LAB BLOOD ORDERABLES Performing Organization Address City/State/ZIP Code Phon e Number APS SPECTRA [facility] documented in this encounter Visit Diagnoses Not on filedocumented in this encounter Care Teams Grade Teacher Relationship Specialty Start Date End Date Fabian Arias MD PCP - General Family Medicine 09/04/[address] [place] [address] documented as of this encounter
--- OUTSIDE RECORDS SUMMARY | 2022-03-08 08:41 | XMS_ITS | Encounter Summary ---
:1940 Author Organization [facility] Address [address] [place] [address] Care Team Providers Name Role Phone Fabian Arias MD Primary Care Provider Encounter Details Date Type Department Care Team Description 08/30/2021 Orders Only [facility] Landon Zarate MD [phone] [place] [address] [place], [place] [phone] (Wo rk) Social History Tobacco Use Types Packs/Day Years Used Date Smoking Tobacco: Smoker, Current Cigarettes Started: 07/01/1976 Status Unknown Sex Assigned at Date Recorded Not on file documented as of this encounter Plan of Treatment Not on filedocumented as of this encounter Procedures Procedure Name Priority Date/Time Associated Diagnosis Comme nts HD KINETICS Routine 08/30/2021 Results for thi s procedure are i n the results section . POST CHEMISTRY Routine 08/30/2021 Results for t his procedure are i n the results section . IMMUNO CHEMISTRY Routine 08/30/2021 Results for this procedure are i n the results section . HEMATOLOGY Routine 08/30/2021 Results for thi s procedure are i n the results section . CHEMISTRY Routine 08/30/2021 Results for thi s procedure are i n the results section . SPECTRA [facility] LAB RESULTS Routine 08/30/2021 Resul ts for this procedure are i n the results section . documented in this encounter Results Spectra [facility] Lab Results (08/30/2021) P athologist Signature eKdrt/V 1.91 [facility] spKt/V Gotch 2.27 [facility] eKt/V Gotch 1.91 [facility] nPCR_HD 1.29 [facility] PCR 55.92 [facility] eKt/V 1.90 [facility] ([place]) spKt/V 2.22 [facility] (Daugirdas II) eNPCR 1.21 [facility] Specimen (Source) Anatomical Location Collection Method / Collectio n Time Received Time / Laterality Volume 08/30/2021 08/30/2021 Celia Ordering Provider LAB BLOOD ORDERABLES Performing Organization Address City/State/ZIP Code Phon e Number [facility] (ABNORMAL) HD KINETICS (08/30/2021) P athologist Signature % Urea 84 (H) 65 - 80 % [facility] Reduction [facility] Specimen (Source) Anatomical Collection Method Collection Time Re ceived Time Location / / Volume Laterality 08/30/2021 08/31/2021 2:10 PM SENIOR MARKETING SPECIALIST Narrative [facility]PS S[facility]RA [facility] - 09/01/2021 Unless otherwise specified, test(s) performed at: [facility], [address] [place] [address] TEXTILE MACHINE MAINTENANCE MECHANIC: Carl Paula M.D. For any questions, please call customer service at FREQUENCY:MONTHLY Resulting Agency Comment Specimen source: Plasma Landon Calvert MD LAB BLOOD ORDERABLES Performing Organization Address City/State/ZIP Code Phon e Number APS SPECTRA [facility] (ABNORMAL) Spectrae Chemistry (08/30/2021) Patholo gist Method Time Signature BUN 61 (H) 6 - 19 [facility] mg/dL [facility] Creatinine 7.52 (H) 0.60 - [facility] 1.30 mg/dL [facility] BUN/Creatinine 8.1 (L) 10.0 - [facility] Ratio 20.0 [facility] Sodium 142 136 - 145 [facility] mEq/L [facility] Potassium 5.2 (H) 3.5 - 5.1 [facility] mEq/L [facility] Chloride 103 96 - 108 [facility] mEq/L [facility] Bicarbonate 21 (L) 22 - 29 [facility] (CO2) mEq/L [facility] Calcium 9.7 8.4 - 10.2 [facility] mg/dL [facility] Corrected 9.7 8.4 - 10.2 [facility] Calcium mg/dL [facility] Comment: Corrected Calcium is not equivalent to m easured Ionized Calcium. Phosphorus 7.4 (H) 2.6 - 4.5 mg/dL [facility]PS [facility] Calcium Phosphorus Product 72 (H) 0 - 54 APS SPECTRA [facility] Calcium Phosporus Product, Cor 72 (H) 0 - 54 [facility]PS [facility]RA [facility] Total Protein 6.9 6.0 - 8.5 g/dL [facility] Albumin 4.0 3.5 - 5.2 g/dL [facility] [place] Globulin, Total 2.9 2.0 - 4.0 g/dL APS SPECT RA [facility] A/G Ratio 1.4 1.0 - 2.0 [facility]PS [facility]RA [facility] Iron 43 30 - 160 mcg/dL APS SPECTRA [place] [facility]N UIBC 232 155 - 355 mcg/dL APS SPECTRA K [facility] TIBC 275 185 - 515 mcg/dL APS SPECTRA [facility] Iron Saturation (TSat) 16 (L) 20 - 55 % APS SPE CTRA [facility] Specimen (Source) Anatomical Collection Method Collection Time Re ceived Time Location / / Volume Laterality 08/30/2021 08/31/2021 10:5 1 AM SENIOR MARKETING SPECIALIST Narrative APS SPECTRA [facility] - 09/01/2021 Unless otherwise specified, test(s) performed at: [facility], [address] [place] [address] TEXTILE MACHINE MAINTENANCE MECHANIC: Carl Paula M.D. For any questions, please call customer service at FREQUENCY:MONTHLY Resulting Agency Comment Specimen source: Serum Landon Calvert MD LAB BLOOD ORDERABLES Performing Organization Address City/State/ZIP Code Phon e Number [facility]PS S[facility]RA [facility] IMMUNO CHEMISTRY (08/30/2021) P athologist Signature Hep B Surface Negative Negative [facility] Ag [facility] Hepatitis B 25 mIU/mL [facility] Surface Ab [facility] Comment: The anti-HBs (Hepatitis B surface antibo dy) is greater than or equal to 10 mIU/mL and implies immunity. The kemar ent has either had an antibody response to HBV vaccination, received a transfusion, or has recovered from HBV infection. For post-vaccination antibody testing guidelines for the general public, refer to MMWR Decemb 2004/Vol.54 (No. 16); 1-, and for healthcare workers, refer to MMWR June 19, 2013/Vol.62 (No. 10); 1-18. Reference Range: <10 mIU/mL ? Non-Immune >=10 mIU/mL ?Immune The magnitude of the measured result abo ve 10 mIU/mL is not indicative of the total amount of antibody present. Specimen (Source) Anatomical Collection Method Collection Time Re ceived Time Location / / Volume Laterality 08/30/2021 08/31/2021 10:5 1 AM SENIOR MARKETING SPECIALIST Narrative APS SPECTRA [facility] - 09/01/2021 Unless otherwise specified, test(s) performed at: [facility], [address] [place] [address] TEXTILE MACHINE MAINTENANCE MECHANIC: Carl Paula M.D. For any questions, please call customer service at FREQUENCY:MONTHLY Resulting Agency Comment Specimen source: Serum Landon Calvert MD LAB BLOOD ORDERABLES Performing Organization Address City/[facility] Code Phon e Number APS SPECTRA [facility] POST CHEMISTRY (08/30/2021) P athologist Signature BUN Post 10 6 - 19 APS SPECTRA Dialysis mg/dL [facility] Specimen (Source) Anatomical Collection Method Collection Time Re ceived Time Location / / Volume Laterality 08/30/2021 08/31/2021 2:06 PM SENIOR MARKETING SPECIALIST Narrative APS S[facility]RA [facility] - 08/31/2021 Unless otherwise specified, test(s) performed at: [facility], [address] [place] [address] TEXTILE MACHINE MAINTENANCE MECHANIC: Carl Paula M.D. For any questions, please call customer service at FREQUENCY:MONTHLY Resulting Agency Comment Specimen source: Plasma Landon Calvert MD LAB BLOOD ORDERABLES Performing Organization Address City/State/ZIP Code Phon e Number [facility]PS S[facility]RA [facility] (ABNORMAL) HEMATOLOGY (08/30/2021) Analysis Performed At Patho logist Time Signature WBC 6.66 4.80 - [facility] 10.80 [facility] 1000/mcL RBC 3.34 (L) 4.20 - APS [facility]RA 5.40 [facility] mill/mcL Hemoglobin 9.4 (L) 12.0 - APS [facility] 16.0 g/dL [facility] Hemoglobin x 3 28.2 (L) 36.0 - [facility] 48.0 % [facility] Hematocrit 29.4 (L) 37.0 - [facility] 47.0 % [facility] MCV 88 80 - 100 [facility] fl [facility] MCH 28.2 27.0 - [facility] 31.0 pg [facility] MCHC 32.0 30.0 - [facility] 36.0 g/dL [facility] RDW 18.6 (H) 11.5 - [facility] 14.5 % [facility] Platelets 299 130 - 400 APS [facility]PECTRA 1000/mcL [facility] Specimen (Source) Anatomical Collection Method Collection Time Re ceived Time Location / / Volume Laterality 08/30/2021 08/31/2021 2:20 PM SENIOR MARKETING SPECIALIST Narrative APS SPECTRA [facility] - 08/31/2021 Unless otherwise specified, test(s) performed at: [facility], [address] [place] [address] TEXTILE MACHINE MAINTENANCE MECHANIC: Carl Paula M.D. For any questions, please call customer service at FREQUENCY:MONTHLY Resulting Agency Comment Specimen source: Blood Landon Calvert MD LAB BLOOD ORDERABLES Performing Organization Address City/State/ZIP Code Phon e Number [facility]PS S[facility]RA [facility] documented in this encounter Visit Diagnoses Not on filedocumented in this encounter Care Teams Auto Design Detailer Relationship Specialty Start Date End Date Fabian Arias MD PCP - General Family Medicine 09/04/[address] [place] [address] documented as of this encounter
--- OUTSIDE RECORDS SUMMARY | 2022-03-08 08:41 | XMS_ITS | Encounter Summary ---
:1940 Author Organization [facility] Address [address] [place] [address] Care Team Providers Name Role Phone Fabian Arias MD Primary Care Provider Encounter Details Date Type Department Care Team Description 05/31/2021 Orders Only [facility] O f Landon Zarate MD [address] [place] [address] [place], [place] [phone] (Wo rk) Social History Tobacco Use Types Packs/Day Years Used Date Smoking Tobacco: Never Assessed Sex Assigned at Date Recorded Not on file documented as of this encounter Plan of Treatment Not on filedocumented as of this encounter Procedures Procedure Name Priority Date/Time Associated Diagnosis Comme nts HD KINETICS Routine 05/31/2021 Results for thi s procedure are i n the results section . POST CHEMISTRY Routine 05/31/2021 Results for t his procedure are i n the results section . IMMUNO CHEMISTRY Routine 05/31/2021 Results for this procedure are i n the results section . HEMATOLOGY Routine 05/31/2021 Results for thi s procedure are i n the results section . CHEMISTRY Routine 05/31/2021 Results for thi s procedure are i n the results section . CHEMISTRY Routine 05/31/2021 Results for thi s procedure are i n the results section . SPECTRA [facility] LAB RESULTS Routine 05/31/2021 Resul ts for this procedure are i n the results section . documented in this encounter Results Spectra [facility] Lab Results (05/31/2021) athologist Signature nPCR_HD 1.24 [facility] spKt/V 2.12 [facility] (Daugirdas II) spKt/V Gotch 2.12 [facility] eKt/V Gotch 1.79 [facility] eKdrt/V 1.79 [facility] eKt/V 1.82 [facility] ([place]) eNPCR 1.17 [facility] PCR 55.28 [facility] Specimen (Source) Anatomical Location Collection Method / Collectio n Time Received Time / Laterality Volume 05/31/2021 05/31/2021 Celia Ordering Provider LAB BLOOD ORDERABLES Performing Organization Address City/State/ZIP Code Phon e Number [facility] (ABNORMAL) HD KINETICS (05/31/2021) P athologist Signature % Urea 83 (H) 65 - 80 % [facility]PS [facility] Reduction [facility] Specimen (Source) Anatomical Collection Method Collection Time Re ceived Time Location / / Volume Laterality 05/31/2021 06/01/2021 4:15 PM FELLING BUCKING SUPERVISOR Resulting Agency Comment Specimen source: Serum Landon Calvert MD LAB BLOOD ORDERABLES Performing Organization Address City/[facility]/ZIP Code Phon e Number [facility]PS [facility] POST CHEMISTRY (05/31/2021) athologist Signature BUN Post 11 6 - 19 APS SPECTRA Dialysis mg/dL [facility] Specimen (Source) Anatomical Collection Method Collection Time Re ceived Time Location / / Volume Laterality 05/31/2021 06/01/2021 3:58 PM FELLING BUCKING SUPERVISOR Narrative APS SPECTRA [facility] - 06/02/2021 Unless otherwise specified, test(s) performed at: [facility], [address] [place] [address] SENIOR RISK MANAGER: Carl Paula M.D. For any questions, please call customer service at FREQUENCY:MONTHLY Resulting Agency Comment Specimen source: Plasma Landon Calvert MD LAB BLOOD ORDERABLES Performing Organization Address City/State/ZIP Code Phon e Number APS SPECTRA [facility] IMMUNO CHEMISTRY (05/31/2021) P athologist Signature Hep B Surface Negative Negative [facility] Ag [facility] Hepatitis B 67 mIU/mL [facility] Surface Ab [facility] Comment: The anti-HBs (Hepatitis B surface antibo dy) is greater than or equal to 10 mIU/mL and implies immunity. The kemar ent has either had an antibody response to HBV vaccination, received a transfusion, or has recovered from HBV infection. For post-vaccination antibody testing guidelines for the general public, refer to MMWR Decemb 2004/Vol.54 (No. 16); -, and for healthcare workers, refer to MMWR June 19, 2013/Vol.62 (No. 10); 1-18. Reference Range: <10 mIU/mL ? Non-Immune >=10 mIU/mL ?Immune The magnitude of the measured result abo ve 10 mIU/mL is not indicative of the total amount of antibody present. Specimen (Source) Anatomical Collection Method Collection Time Re ceived Time Location / / Volume Laterality 05/31/2021 06/01/2021 4:08 PM FELLING BUCKING SUPERVISOR Narrative [facility]PS S[facility]RA [facility] - 06/01/2021 Unless otherwise specified, test(s) performed at: [facility], [address] [place] [address] SENIOR RISK MANAGER: Carl Paula M.D. For any questions, please call customer service at FREQUENCY:MONTHLY Resulting Agency Comment Specimen source: Serum Landon Calvert MD LAB BLOOD ORDERABLES Performing Organization Address City/State/ZIP Code Phon e Number [facility]PS SPECTRA [facility] (ABNORMAL) Spectrae Chemistry (05/31/2021) [facility] gist Method Time Signature BUN 64 (H) 6 - 19 [facility] mg/dL [facility] Creatinine 6.18 (H) 0.60 - APS [facility]RA 1.30 mg/dL [facility] BUN/Creatinine 10.4 10.0 - [facility]PS [facility] Ratio 20.0 [facility] Sodium 140 136 - 145 [facility] mEq/L [facility] Potassium 3.7 3.5 - 5.1 [facility] mEq/L [facility] Chloride 101 96 - 108 [facility] mEq/L [facility] Bicarbonate 25 22 - 29 APS SPECTRA (CO2) mEq/L [facility] Calcium 9.3 8.4 - 10.2 [facility] mg/dL [facility] Corrected 9.5 8.4 - 10.2 APS SPECTRA Calcium mg/dL [facility] Comment: Corrected Calcium is not equivalent to m easured Ionized Calcium. Phosphorus 6.3 (H) 2.6 - 4.5 mg/dL APS SPECTRA [facility] Calcium Phosphorus Product 59 (H) 0 - 54 APS SPECTRA [facility] Calcium Phosporus Product, Cor 60 (H) 0 - 54 APS SPECTRA [facility] Total Protein 6.6 6.0 - 8.5 g/dL APS SPECTRA [facility] Albumin 3.7 3.5 - 5.2 g/dL [facility] [place] Globulin, Total 2.9 2.0 - 4.0 g/dL APS SPECT RA [facility] A/G Ratio 1.3 1.0 - 2.0 [facility]PS S[facility]RA [facility] Iron 45 30 - 160 mcg/dL APS SPECTRA [place] MMN UIBC 212 155 - 355 mcg/dL APS SPECTRA K [facility] TIBC 257 185 - 515 mcg/dL APS SPECTRA K [facility] Iron Saturation (TSat) 18 (L) 20 - 55 % APS SPE CTRA [facility] Specimen (Source) Anatomical Collection Method Collection Time Re ceived Time Location / / Volume Laterality 05/31/2021 06/01/2021 4:08 PM FELLING BUCKING SUPERVISOR Narrative APS SPECTRA [facility] - 06/01/2021 Unless otherwise specified, test(s) performed at: [facility], [address] [place], [place] [id number] SENIOR RISK MANAGER: Carl Paula M.D. For any questions, please call customer service at FREQUENCY:MONTHLY Resulting Agency Comment Specimen source: Serum Landon Calvert MD LAB BLOOD ORDERABLES Performing Organization Address City/State/ZIP Code Phon e Number APS SPECTRA [facility] (ABNORMAL) Spectrae Chemistry (05/31/2021) P athologist Signature PTH 493 (H) 16 - 80 APS [facility]PECTRA pg/mL [facility] Specimen (Source) Anatomical Collection Method Collection Time Re ceived Time Location / / Volume Laterality 05/31/2021 06/01/2021 9:49 AM FELLING BUCKING SUPERVISOR Narrative APS SPECTRA [facility] - 06/01/2021 Unless otherwise specified, test(s) performed at: [facility], [address] [place] [address] SENIOR RISK MANAGER: Carl Paula M.D. For any questions, please call customer service at FREQUENCY:MONTHLY Resulting Agency Comment Specimen source: Plasma Landon Calvert MD LAB BLOOD ORDERABLES Performing Organization Address City/[facility] Code Phon e Number APS SPECTRA [facility] (ABNORMAL) HEMATOLOGY (05/31/2021) Analysis Performed At Patho logist Time Signature WBC 4.83 4.80 - APS SPECTRA 10.80 [facility] 1000/mcL RBC 3.42 (L) 4.20 - APS SPECTRA 5.40 [facility] mill/mcL Hemoglobin 10.0 (L) 12.0 - APS SPECTRA 16.0 g/dL [facility] Hemoglobin x 3 30.0 (L) 36.0 - APS SPECTRA 48.0 % [facility] Hematocrit 30.0 (L) 37.0 - APS [facility]RA 47.0 % [facility] MCV 88 80 - 100 APS SPECTRA fl [facility] MCH 29.3 27.0 - APS SPECTRA 31.0 pg [facility] MCHC 33.5 30.0 - APS SPECTRA 36.0 g/dL [facility] RDW 17.7 (H) 11.5 - APS SPECTRA 14.5 % [facility] Platelets 245 130 - 400 APS SPECTRA 1000/mcL [facility] Specimen (Source) Anatomical Collection Method Collection Time Re ceived Time Location / / Volume Laterality 05/31/2021 06/01/2021 9:49 AM FELLING BUCKING SUPERVISOR Narrative APS SPECTRA [facility] - 06/01/2021 Unless otherwise specified, test(s) performed at: [facility], [address] [place] [address] SENIOR RISK MANAGER: Carl Paula M.D. For any questions, please call customer service at FREQUENCY:MONTHLY Resulting Agency Comment Specimen source: Blood Landon Calvert MD LAB BLOOD ORDERABLES Performing Organization Address City/[facility] Phon e Number APS SPECTRA [facility] documented in this encounter Visit Diagnoses Not on filedocumented in this encounter Care Teams Talent Acquisition Manager Relationship Specialty Start Date End Date Fabian Arias MD PCP - General Family Medicine 09/04/[address] [place] [address] documented as of this encounter
--- OUTSIDE RECORDS SUMMARY | 2022-03-08 08:41 | XMS_ITS | Encounter Summary ---
:1940 Author Organization [facility] Address [address] [place] [address] Care Team Providers Name Role Phone Fabian Arias MD Primary Care Provider Encounter Details Date Type Department Care Team Description 06/22/2021 Orders Only [facility] Landon Zarate MD [phone] [place] [address] [place], [place] [phone] (Wo rk) Social History Tobacco Use Types Packs/Day Years Used Date Smoking Tobacco: Never Assessed Sex Assigned at Date Recorded Not on file documented as of this encounter Plan of Treatment Not on filedocumented as of this encounter Procedures Procedure Name Priority Date/Time Associated Diagnosis Comme nts SARS COV 2 BY PCR (HC) Routine 06/22/2021 Resul ts for this procedure are i n the results section . HEMATOLOGY Routine 06/22/2021 Results for thi s procedure are i n the results section . documented in this encounter Results (ABNORMAL) SARS-CoV-2 by PCR (06/22/2021) [facility] Method Time Signature SARS CoV-2 by [...] for the duration of time that the Glass Cutter Helper of the HHS decla res circumstances exist justifying the authorization of the christiano gency use of in vitro diagnostic tests for detection of SARS-CoV-2 virus and/or diagnosis of COVID-19 infection under section 564(b)(1) of the Act, 21 U.S.C. 360bbb-3(b)(1), unless the authorization is terminated o r revoked sooner. To learn more about this test, go to [email or web address]/[email or web address] rts Performed by: PLACIDO Wong [id number], CLIA [id number], [address] [place] [address] Program Instructor: Anthony Keen, Ph D, FAC, FFSC ([facility]) Performed by: JANNA Wong [id number], [address] ??[place] [address], Sp Gonzales MD First COVID-19 Test? YES APS SPECT RA [facility] Employed in Healthcare? NO APS SP ECTRA [facility] Patient Symptomatic NO APS SPECTR A [facility] Congregate Setting? NO APS SPECTR A [facility] ? NO APS SPECTRA [facility] Patient Occupation UNKNOWN APS SPECTRA [facility] Specimen Source ANTERIOR NARES APS SPECT RA [facility] Specimen (Source) Anatomical Collection Method Collection Time Re ceived Time Location / / Volume Laterality 06/22/2021 06/23/2021 9:16 PM PLANNER CHIEF Narrative APS SPECTRA [facility] - 06/23/2021 Unless otherwise specified, test(s) performed at: [facility], [facility] [address], [place] [address] EARTH SCIENCE FACULTY MEMBER: Darnell Nguyen M.D. For any questions, please call customer service at FREQUENCY:OTHER Resulting Agency Comment Specimen source: Swab/ANTERIOR NARES Landon Calvert MD LAB [id number] NSOLICITED RESULTS Performing Organization Address City/State/ZIP Code Phon e Number APS SPECTRA [facility] HEMATOLOGY (06/22/2021) athologist Signature Hemoglobin 12.2 12.0 - APS SPECTRA 16.0 g/dL [facility] Hemoglobin x 3 36.6 36.0 - APS SPECTRA 48.0 % [facility] Specimen (Source) Anatomical Collection Method Collection Time Re ceived Time Location / / Volume Laterality 06/22/2021 06/23/2021 10:0 9 AM PLANNER CHIEF Narrative APS SPECTRA [facility] - 06/23/2021 Unless otherwise specified, test(s) performed at: [facility], [address] [place] [address] EARTH SCIENCE FACULTY MEMBER: Carl Paula M.D. For any questions, please call customer service at FREQUENCY:OTHER Resulting Agency Comment Specimen source: Blood Landon Calvert MD LAB BLOOD ORDERABLES Performing Organization Address City/State/ZIP Code Phon e Number APS SPECTRA [facility] documented in this encounter Visit Diagnoses Not on filedocumented in this encounter Care Teams Speech Pathology Supervisor Relationship Specialty Start Date End Date Fabian Arias MD PCP - General Family Medicine 09/04/[address] [place] [address] documented as of this encounter
--- OUTSIDE RECORDS SUMMARY | 2022-03-08 08:41 | XMS_ITS | Encounter Summary ---
:1940 Author Organization [facility] Address [address] [place] [address] Care Team Providers Name Role Phone Fabian Arias MD Primary Care Provider Encounter Details Date Type Department Care Team Description 08/09/2021 Orders Only [facility] f Landon Zarate MD [phone] [place] [address] [place], [place] [phone] (Wo rk) Social History Tobacco Use Types Packs/Day Years Used Date Smoking Tobacco: Smoker, Current Cigarettes Started: 07/01/1976 Status Unknown Sex Assigned at Date Recorded Not on file documented as of this encounter Plan of Treatment Not on filedocumented as of this encounter Procedures Procedure Name Priority Date/Time Associated Diagnosis Comme nts HEMATOLOGY Routine 08/09/2021 Results for thi s procedure are in the resu lts section. documented in this encounter Results (ABNORMAL) HEMATOLOGY (08/09/2021) Analysis Performed At Patho logist Time Signature Hemoglobin 8.1 (L) 12.0 - APS SPECTRA 16.0 g/dL [facility] Hemoglobin x 3 24.3 (L) 36.0 - APS SPECTRA 48.0 % [facility] Specimen (Source) Anatomical Collection Method Collection Time Re ceived Time Location / / Volume Laterality 08/09/2021 08/10/2021 12:4 7 PM COLORING ROOM WORKER Narrative APS SPECTRA [facility] - 08/10/2021 Unless otherwise specified, test(s) performed at: [facility], [address] [place] [id number] WAREHOUSE ORDER PICKER: Carl Paula M.D. For any questions, please call customer service at FREQUENCY:OTHER Resulting Agency Comment Specimen source: Blood Landon Calvert MD LAB BLOOD ORDERABLES Performing Organization Address City/State/ZIP Code Phon e Number APS SPECTRA [facility] documented in this encounter Visit Diagnoses Not on filedocumented in this encounter Care Teams Warehouse Record Clerk Relationship Specialty Start Date End Date Fabian Arias MD PCP - General Family Medicine 09/04/[address] [place] [address] documented as of this encounter
--- OUTSIDE RECORDS SUMMARY | 2022-03-08 08:41 | XMS_ITS | Encounter Summary ---
:1940 Author Organization [facility] Address [address] [place] [address] Care Team Providers Name Role Phone Fabian Arias MD Primary Care Provider Encounter Details Date Type Department Care Team Description 09/06/2021 Orders Only [facility] f Landon Zarate MD [phone] [place] [address] [place], [place] [phone] (Wo rk) Social History Tobacco Use Types Packs/Day Years Used Date Smoking Tobacco: Smoker, Current Cigarettes Started: 07/01/1976 Status Unknown Sex Assigned at Date Recorded Not on file documented as of this encounter Plan of Treatment Not on filedocumented as of this encounter Procedures Procedure Name Priority Date/Time Associated Diagnosis Comme nts HEMATOLOGY Routine 09/06/2021 Results for thi s procedure are in the resu lts section. documented in this encounter Results (ABNORMAL) HEMATOLOGY (09/06/2021) Analysis Performed At Patho logist Time Signature Hemoglobin 9.8 (L) 12.0 - APS SPECTRA 16.0 g/dL [facility] Hemoglobin x 3 29.4 (L) 36.0 - APS SPECTRA 48.0 % [facility] Specimen (Source) Anatomical Collection Method Collection Time Re ceived Time Location / / Volume Laterality 09/06/2021 09/07/2021 9:53 AM PHYSICIST ASTROPHYSICS Narrative APS SPECTRA [facility] - 09/07/2021 Unless otherwise specified, test(s) performed at: [facility], [address] [place] [address] MOLDER APPRENTICE: Carl Paula, M.D. For any questions, please call customer service at FREQUENCY:OTHER Resulting Agency Comment Specimen source: Blood Landon Calvert MD LAB BLOOD ORDERABLES Performing Organization Address City/State/ZIP Code Phon e Number [facility]PS SPECTRA [facility] documented in this encounter Visit Diagnoses Not on filedocumented in this encounter Care Teams On Air Host Relationship Specialty Start Date End Date Fabian Arias MD PCP - General Family Medicine 09/04/[address] [place] [address] documented as of this encounter
--- OUTSIDE RECORDS SUMMARY | 2022-03-08 08:41 | XMS_ITS | Encounter Summary ---
:1940 Author Organization [facility] Address [address] [place] [address] Care Team Providers Name Role Phone Fabian Arias MD Primary Care Provider Encounter Details Date Type Department Care Team Description 06/21/2021 Orders Only [facility] f Landon Zarate MD [phone] [place] [address] [place], [place] [phone] (Wo rk) Social History Tobacco Use Types Packs/Day Years Used Date Smoking Tobacco: Never Assessed Sex Assigned at Date Recorded Not on file documented as of this encounter Plan of Treatment Not on filedocumented as of this encounter Procedures Procedure Name Priority Date/Time Associated Diagnosis Comme nts HEMATOLOGY Routine 06/21/2021 Results for thi s procedure are in the resu lts section. documented in this encounter Results (ABNORMAL) HEMATOLOGY (06/21/2021) Analysis Performed At Patho logist Time Signature Hemoglobin 11.8 (L) 12.0 - APS SPECTRA 16.0 g/dL [facility] Hemoglobin x 3 35.4 (L) 36.0 - APS SPECTRA 48.0 % [facility] Specimen (Source) Anatomical Collection Method Collection Time Re ceived Time Location / / Volume Laterality 06/21/2021 06/22/2021 10:2 9 AM RAGS LABORER Narrative APS SPECTRA [facility] - 06/22/2021 Unless otherwise specified, test(s) performed at: [facility], [address] [place] [address] CHANNEL ACCOUNT MANAGER: Carl Paula M.D. For any questions, please call customer service at FREQUENCY:OTHER Resulting Agency Comment Specimen source: Blood Landon Calvert MD LAB BLOOD ORDERABLES Performing Organization Address City/State/ZIP Code Phon e Number [facility]PS [facility]PECTRA [facility] documented in this encounter Visit Diagnoses Not on filedocumented in this encounter Care Teams Ornamental Brick Installer Relationship Specialty Start Date End Date Fabian Arias MD PCP - General Family Medicine 09/04/[address] [place] [address] documented as of this encounter
--- OUTSIDE RECORDS SUMMARY | 2022-03-08 08:41 | XMS_ITS | Encounter Summary ---
:1940 Author Organization [facility] Address [address] [place] [address] Care Team Providers Name Role Phone Fabian Arias MD Primary Care Provider Encounter Details Date Type Department Care Team Description 09/06/2021 Treatment [facility] Landon Zarate MD [address] [place] [address] [place], [place] [phone] (Wo rk) Social History Tobacco Use Types Packs/Day Years Used Date Smoking Tobacco: Smoker, Current Cigarettes Started: 07/01/1976 Status Unknown Sex Assigned at Date Recorded Not on file documented as of this encounter Miscellaneous Notes Dialysis Note - Landon Calvert MD - 09/06/2021 10:07 AM CST Date: Sep 06, 2021 Patient Name: Zamzam Garibay : 1940 Chart #: [id number] Sex: F This patient was personally seen for a complete visit as part of routine monthly dialysis care. A review of the dialysis treatment, blood pressure, estimated dry weight and recent lab values was made. These were discussed with the patient and staff as necessary. Treatment Data for 09/06/2021 started at:6:14 AM Dialyzer: 160NRe Optiflux Na: 137 mEq/L Bicarb: 33 mEq/L Dialysate: 3.0 K, 2.25 Ca, 1.0 Mg, 100 Dextrose (G3231) Dialysate/Machine Temp (prescribed): 37 C Dialysate/Machine Temp (actual): 36.9 C BFR (prescribed): 400 BFR (actual): 400 Prescribed time: 03:30 EDW: 45.5 kg Access Type: Active (In Use):CVCatheter-Tunneled/Chest Pre Dialysis Vitals (for 09/06/2021 6:09 AM ) Pre BP (sit): 178/95 Pre Wt: 52.6 kg Temp: 95.2 F Post Dialysis Vitals (for 09/04/2021 9:51 AM ) Post BP (sit): 179/86 Post Wt: 49.1 kg Current Dialysis Vitals (for 09/06/2021 9:35 AM ) BP (sit): 162/85 AP(-) / SURVEILLANCE DUAL RATE OFFICER: 181/122 Pulse: 86 Chairside data as of 09/06/2021 9:35 AM Last 3 Treatments 09/04/2021 09/01/2021 08/30/2021 EDW (kg) 45.5 45.5 45.5 Weight Pre (kg) 51.1 50.5 51.2 Weight Post (kg) 49.1 48.5 48.5 Dialytic Weight Loss (kg) -2 -2 -2.7 EDW Deviation (kg) 3.6 3.0 3.0 BP Sit Pre 193/92 151/76 188/91 BP Sit Post 179/86 154/74 176/88 UF Rate (mL/kg/hr) 13 12 17 Prescribed BFR 400 400 400 Average Delivered BFR 410 410 410 Prescribed Treatment Time 03:30 03:30 03:30 Actual Treatment Time 03:30 03:31 03:33 MOTOR HOTEL MANAGER: Landon Calvert MD LOCATION: [place] [phone] SCHEDULE: -W- 2nd Shift EDW: kg. DIALYZER: HD DURATION: NEEDLE SIZE: ANTICOAG: BATH: QB: ml/min QD: ml/min Subjective Tolerating dialysis well. 09/06/21: She is 7 Kg above dry [...] This is Jaz's first day back from [facility] unit. She says she had no symptoms, but her son tested her when she was fatigued and had fever. She reports now having no symptoms at all. She says she feels great. Fluid gains have been better. 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 Can't remove [...] HD. 04/26/21: She was hospitalized briefly at [facility] for dyspnea, no pneumonia but rather related to CHF. She saw cardiology in follow-up in clinic, lisinopril and metoprolol and lasix with UF on HD to dry weight recommended. She is not interested in home dialysis, discussed today. 04/12/21: Patient new to me. She followed with eligibility worker in [facility], did not follow-up,crashed into dialysis in [...] mouth once a day 04/12/2021 RenaPlex-D (vit b,n-km-ieqa-selen-vit d3-e) 800 mcg-12.5 mg-2,000 unit tablet Take 1 tablet by mouthonce a day trazodone 50 mg tablet Take 1 tablet by mouth every night as needed 04/12/2021 Allergy List Allergen Reaction Reaction Severity Onset Date Venofer Skin rash Medications reviewed and no changes were made. Treatment and Adequacy Assessment BUN mg/dL 61 (08/30/21) 93 (08/07/21) 80 (08/02/21) 36 (07/05/21) 64 (05/31/21) UREA NITROGEN (MG/DL) IN SER/PLAS - POST DIALYSIS mg/dL 10 (08/30/21) 19 (08/07/21) 8 (07/05/21) 11 (05/31/21) 10 (05/03/21) URR % 84 (08/30/21) 80 (08/07/21) 78 (07/05/21) 83 (05/31/21) 84 (05/03/21) spKt/V Gotch 2.27 (08/30/21) 1.85 (08/07/21) 2.12 (05/31/21) 2.1 (05/03/21) eKdrt/V 1.91 (08/30/21) 1.57 (08/07/21) 1.79 (05/31/21) 1.78 (05/03/21) spKt/V (Daugirdas II) 2.2200 (08/30/21) 1.9000 (08/07/21) 1.7200 (07/05/21) 2.1200 (05/31/21) 2.1200 (05/03/21) Dialysis is adequate. Achieves prescribed time - Yes Achieves prescribed frequency - Yes Continue current prescription. 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 Will need new access placement. She is being set up for vein mapping and surgeon consult Anemia Assessment HEMOGLOBIN (G/DL) IN BLOOD g/dL 9.4 (08/30/21) 9.2 (08/23/21) 9.1 (08/16/21) 8.1 (08/09/21) 9.4 (08/02/21) PLATELETS 1000/mcL 299 (08/30/21) 329 (08/02/21) 390 (07/05/21) 245 (05/31/21) 236 (05/03/21) IRON SATURATION % 16 (08/30/21) 18 (08/02/21) 20 (07/05/21) 18 (05/31/21) 30 (05/03/21) FERRITIN ng/mL 293 (07/05/21) 250 (05/10/21) Hemoglobin is at goal. Iron Saturation is below goal. Ferritin is below goal. Will adjust CARIE and intravenous iron per protocol. No Venofer, reaction. If iron lower this month, will use Ferrilicit Nutritional and Metabolic Assessment ALBUMIN (G/DL) g/dL 4.0 (08/30/21) 3.9 (08/02/21) 3.7 (07/05/21) 3.7 (05/31/21) 3.8 (05/03/21) Sodium mEq/L 142 (08/30/21) 140 (08/02/21) 140 (07/05/21) 140 (05/31/21) 137 (05/03/21) POTASSIUM (MMOL/L) IN SER/PLAS mEq/L 5.2 (08/30/21) 3.8 (08/02/21) 4.7 (07/05/21) 3.7 (05/31/21) 4.2 (05/03/21) BICARBONATE (CO2) mEq/L 21 (08/30/21) 22 (08/02/21) 30 (07/05/21) 25 (05/31/21) 27 (05/03/21) Albumin is at goal. Potassium is at goal. Bicarbonate is at goal. Continue same bicarbonate in dialysate. Bone and Mineral Metabolism Assessment Calcium mg/dL 9.7 (08/30/21) 9.4 (08/02/21) 9.7 (07/05/21) 9.3 (05/31/21) 9.1 (05/03/21) CALCIUM (MG/DL) CORRECTED FOR ALBUMIN IN SER/PLAS mg/dL 9.7 (08/30/21) 9.5 (08/02/21) 9.9 (07/05/21) 9.5 (05/31/21) 9.3 (05/03/21) PHOSPHATE (MG/DL) IN SER/PLAS mg/dL 7.4 (08/30/21) 9.4 (08/02/21) 5.6 (07/05/21) 6.3 (05/31/21) 6.0 (05/03/21) CALCIUM PHOSPHORUS PRODUCT, COR 72 (08/30/21) 89 (08/02/21) 55 (07/05/21) 60 (05/31/21) 56 (05/03/21) IPTH pg/mL 254 (07/05/21) 493 (05/31/21) 505 (05/03/21) 694 (04/05/21) Corrected Calcium is at goal. Phosphorous is above goal. Intact PTH is at goal. Inside Sales Professional will adjust binders and vitamin D per protocol and continue to provide dietary education. Continue Ca acetate and calcitriol. Phos down some. Cardiovascular Assessment Blood pressures reviewed and are acceptable. Intradialytic weight gains are too high. Estimated dry weight is too low, will increase. Continue same cardiovascular medications. Discussed fluid gains and salt intake. She listens but often does not follow what we tell her. Discussed with RD. Transplant Status: Patient is not a candidate. age and co-morbidities Resuscitation Status Stable dialysis, no change to prescription Increase EDW to 48 Kg Lower fluid gains discussed with her. Renal diet in addition to binders, needs ongoing counseling with RD [facility] for vein mapping and surgeon consult as above Landon Calvert MD [ Signed And locked electronically On 09/06/2021 at 10:12:20 AM ] Transcribed: Landon Calvert ( 09/06/2021 ) documented in this encounter Plan of Treatment Not on filedocumented as of this encounter Visit Diagnoses Not on filedocumented in this encounter Care Teams Portfolio Management Marketing Relationship Specialty Start Date End Date Fabian Arias MD PCP - General Family Medicine 09/04/[address] [place] [address] documented as of this encounter
--- OUTSIDE RECORDS SUMMARY | 2022-03-08 08:41 | XMS_ITS | Encounter Summary ---
:1940 Author Organization [facility] Address [address] [place] [address] Care Team Providers Name Role Phone Fabian Arias MD Primary Care Provider Encounter Details Date Type Department Care Team Description 08/02/2021 Orders Only [facility] O f Landon Zarate MD [address] [place] [address] [place], [place] [phone] (Wo rk) Social History Tobacco Use Types Packs/Day Years Used Date Smoking Tobacco: Smoker, Current Cigarettes Started: 07/01/1976 Status Unknown Sex Assigned at Date Recorded Not on file documented as of this encounter Plan of Treatment Not on filedocumented as of this encounter Procedures Procedure Name Priority Date/Time Associated Diagnosis Comme nts IMMUNO CHEMISTRY Routine 08/02/2021 Results for this procedure are in the resu lts section. HEMATOLOGY Routine 08/02/2021 Results for thi s procedure are in the resu lts section. CHEMISTRY Routine 08/02/2021 Results for thi s procedure are in the resu lts section. documented in this encounter Results IMMUNO CHEMISTRY (08/02/2021) P athologist Signature Hepatitis B 33 mIU/mL APS SPECTRA Surface Ab [facility] Comment: The anti-HBs (Hepatitis B surface antibo dy) is greater than or equal to 10 mIU/mL and implies immunity. The kemar ent has either had an antibody response to HBV vaccination, received a transfusion, or has recovered from HBV infection. For post-vaccination antibody testing guidelines for the general public, refer to MMWR Decemb er 23, 2004/Vol.54 (No. 16); -, and for healthcare workers, refer to MMWR June 19, 2013/Vol.62 (No. 10); 1-18. Reference Range: <10 mIU/mL ? Non-Immune >=10 mIU/mL ?Immune The magnitude of the measured result abo ve 10 mIU/mL is not indicative of the total amount of antibody present. Hep B Surface Ag Negative Negative APS SPECTRA [facility] Specimen (Source) Anatomical Collection Method Collection Time Re ceived Time Location / / Volume Laterality 08/02/2021 08/03/2021 3:01 PM LOSS CONTROL REPRESENTATIVE Narrative APS SPECTRA [facility] - 08/05/2021 Unless otherwise specified, test(s) performed at: [facility], [address] [place] [id number] SOFTWARE TOOLS DEVELOPER: Carl Paula M.D. For any questions, please call customer service at FREQUENCY:MONTHLY Resulting Agency Comment Specimen source: Serum Landon Calvert MD LAB BLOOD ORDERABLES Performing Organization Address City/State/ZIP Code Phon e Number APS SPECTRA [facility] (ABNORMAL) Spectrae Chemistry (08/02/2021) [facility] Method Time Signature BUN 80 (H) 6 - 19 APS SPECTRA mg/dL [facility] Creatinine 8.17 (H) 0.60 - APS SPECTRA 1.30 mg/dL [facility] BUN/Creatinine 9.8 (L) 10.0 - APS [facility]PECTRA Ratio 20.0 [facility] Sodium 140 136 - 145 A[facility]RA mEq/L [facility] Potassium 3.8 3.5 - 5.1 APS [facility]PECTRA mEq/L [facility] Chloride 95 (L) 96 - 108 APS [facility]RA mEq/L [facility] Bicarbonate 22 22 - 29 APS SPECTRA (CO2) mEq/L [facility] Calcium 9.4 8.4 - 10.2 APS [facility]PECTRA mg/dL [facility] Corrected 9.5 8.4 - 10.2 APS SPECTRA Calcium mg/dL [facility] Comment: Corrected Calcium is not equivalent to m easured Ionized Calcium. Phosphorus 9.4 (H) 2.6 - 4.5 mg/dL APS SPECTRA [facility] Calcium Phosphorus Product 88 (H) 0 - 54 APS SPECTRA [facility] Calcium Phosporus Product, Cor 89 (H) 0 - 54 APS SPECTRA [facility] Total Protein 7.1 6.0 - 8.5 g/dL APS SPECTRA [facility] Albumin 3.9 3.5 - 5.2 g/dL APS SPECTRA [facility] [place] Globulin, Total 3.2 2.0 - 4.0 g/dL APS SPECT RA [facility] A/G Ratio 1.2 1.0 - 2.0 APS SPECTRA [facility] Iron 46 30 - 160 mcg/dL APS SPECTRA [place] [facility] UIBC 210 155 - 355 mcg/dL APS SPECTRA [facility] TIBC 256 185 - 515 mcg/dL APS SPECTRA [facility] Iron Saturation (TSat) 18 (L) 20 - 55 % APS SPE CTRA [facility] Specimen (Source) Anatomical Collection Method Collection Time Re ceived Time Location / / Volume Laterality 08/02/2021 08/03/2021 3:01 PM LOSS CONTROL REPRESENTATIVE Narrative APS SPECTRA [facility] - 08/03/2021 Unless otherwise specified, test(s) performed at: [facility], [address] [place] [address] SOFTWARE TOOLS DEVELOPER: Carl Paula M.D. For any questions, please call customer service at FREQUENCY:MONTHLY Resulting Agency Comment Specimen source: Serum Landon Calvert MD LAB BLOOD ORDERABLES Performing Organization Address City/State/ZIP Code Phon e Number APS SPECTRA [facility] (ABNORMAL) HEMATOLOGY (08/02/2021) Analysis Performed At Patho logist Time Signature WBC 6.02 4.80 - APS SPECTRA 10.80 [facility] 1000/mcL RBC 3.28 (L) 4.20 - APS SPECTRA 5.40 [facility] mill/mcL Hemoglobin 9.4 (L) 12.0 - APS SPECTRA 16.0 g/dL [facility] Hemoglobin x 3 28.2 (L) 36.0 - APS SPECTRA 48.0 % [facility] Hematocrit 28.6 (L) 37.0 - APS SPECTRA 47.0 % [facility] MCV 87 80 - 100 APS SPECTRA fl [facility] MCH 28.6 27.0 - APS SPECTRA 31.0 pg [facility] MCHC 32.7 30.0 - APS SPECTRA 36.0 g/dL [facility] RDW 17.6 (H) 11.5 - APS SPECTRA 14.5 % [facility] Platelets 329 130 - 400 APS SPECTRA 1000/mcL [facility] Specimen (Source) Anatomical Collection Method Collection Time Re ceived Time Location / / Volume Laterality 08/02/2021 08/03/2021 1:58 PM LOSS CONTROL REPRESENTATIVE Narrative APS SPECTRA [facility] - 08/03/2021 Unless otherwise specified, test(s) performed at: [facility], [address] [place] [address] SOFTWARE TOOLS DEVELOPER: Carl Paula M.D. For any questions, please call customer service at FREQUENCY:MONTHLY Resulting Agency Comment Specimen source: Blood Landon Calvert MD LAB BLOOD ORDERABLES Performing Organization Address City/State/ZIP Code Phon e Number APS SPECTRA [facility] documented in this encounter Visit Diagnoses Not on filedocumented in this encounter Care Teams Sanitation Inspector Relationship Specialty Start Date End Date Fabian Arias MD PCP - General Family Medicine 09/04/[address] [place] [address] documented as of this encounter
--- OUTSIDE RECORDS SUMMARY | 2022-03-08 08:41 | XMS_ITS | Encounter Summary ---
:1940 Author Organization [facility] Address [address] [place] [address] Care Team Providers Name Role Phone Fabian Arias MD Primary Care Provider Encounter Details Date Type Department Care Team Description 06/21/2021 Treatment [facility] Landon Zarate MD [address] [place] [address] [place], [place] [phone] (Wo rk) Social History Tobacco Use Types Packs/Day Years Used Date Smoking Tobacco: Never Assessed Sex Assigned at Date Recorded Not on file documented as of this encounter Miscellaneous Notes Dialysis Note - Landon Calvert MD - 06/21/2021 9:36 AM CST Date: Jun 21, 2021 Patient Name: Zamzam Garibay : 1940 Chart #: [id number] Sex: F This patient was personally seen for a basic visit as part of routine weekly dialysis care. A reviewof the dialysis treatment, blood pressure, estimated dry weight and recent lab values was made. These were discussed with the patient and staff as necessary. Treatment Data for 06/21/2021 started at:6:30 AM Dialyzer: 160NRe Optiflux Na: 137 mEq/L Bicarb: 35 mEq/L Dialysate: 3.0 K, 2.25 Ca, 1.0 Mg, 100 Dextrose (G3231) Dialysate/Machine Temp (prescribed): 37 C Dialysate/Machine Temp (actual): 36.7 C BFR (prescribed): 400 BFR (actual): 400 Prescribed time: 03:30 EDW: 43 kg Access Type: Active (In Use):CVCatheter-Tunneled/Chest Pre Dialysis Vitals (for 06/21/2021 6:28 AM ) Pre BP (sit): 148/86 Pre Wt: 45.4 kg Temp: 99.1 F Post Dialysis Vitals (for 06/19/2021 9:58 AM ) Post BP (sit): 158/88 Post Wt: 45.6 kg Current Dialysis Vitals (for 06/21/2021 9:02 AM ) BP (sit): 139/79 AP(-) / CURRICULUM COACH: 221/143 Pulse: 76 Chairside data as of 06/21/2021 9:02 AM Last 3 Treatments 06/19/2021 06/16/2021 06/14/2021 EDW (kg) 43 43 43 Weight Pre (kg) 47.3 46.6 47.7 Weight Post (kg) 45.6 44.5 45.5 Dialytic Weight Loss (kg) -1.7 -2.1 -2.2 EDW Deviation (kg) 2.6 1.5 2.5 BP Sit Pre 180/84 158/62 167/85 BP Sit Post 158/88 145/76 121/67 UF Rate (mL/kg/hr) 11 14 15 Prescribed BFR 400 400 400 Average Delivered BFR 410 390 410 Prescribed Treatment Time 03:30 03:30 03:30 Actual Treatment Time 03:30 03:33 03:31 Treatment Medication Orders Medication Sig Start [...] 1.0 mcg ORAL Every Treatment 06/05/2021 06/04/2022 EXERCISE PHYSIOLOGIST CERTIFIED: Landon Calvert MD LOCATION: [phone] SCHEDULE: -W- 2nd Shift ACCESS: EDW: kg. DIALYZER: HD DURATION: NEEDLE SIZE: ANTICOAG: BATH: QB: ml/min QD: ml/min Subjective 06/21/21: She feels well today. However, she had hypotensive episode early in treatment today. She did not gain any fluid today and she has not been reaching EDW of 43 Kg. We discussed fluid gains again and importance of <2L gain consistently given CHF and intolerance of UF more than 2L or so. 06/14/21: She was in the hospital overnight last month at [place], SOB resolved with fluid removal. Can't remove [...] HD. 04/26/21: She was hospitalized briefly at [place] for dyspnea, no pneumonia but rather related to CHF. She saw cardiology in follow-up in clinic, lisinopril and metoprolol and lasix with UF on HD to dry weight recommended. She is not interested in home dialysis, discussed today. 04/12/21: Patient new to me. She followed with beater dumper in [facility], did not follow-up,crashed into dialysis in [...] mouth once a day 04/12/2021 RenaPlex-D (vit b,k-ya-itur-selen-vit d3-e) 800 mcg-12.5 mg-2,000 unit tablet Take 1 tablet by mouthonce a day trazodone 50 mg tablet Take 1 tablet by mouth every night as needed 04/12/2021 Allergy List Allergen Reaction Reaction Severity Onset Date Venofer Skin rash Medications reviewed and no changes were made. BUN mg/dL 64 (05/31/21) 61 (05/03/21) UREA NITROGEN (MG/DL) IN SER/PLAS - POST DIALYSIS mg/dL 11 (05/31/21) 10 (05/03/21) URR % 83 (05/31/21) 84 (05/03/21) spKt/V Gotch 2.12 (05/31/21) 2.1 (05/03/21) eKdrt/V 1.79 (05/31/21) 1.78 (05/03/21) spKt/V (Daugirdas II) 2.1200 (05/31/21) 2.1200 (05/03/21) HEMOGLOBIN (G/DL) IN BLOOD g/dL 10.4 (06/14/21) 10.0 (06/07/21) 10.0 (05/31/21) 9.9 (05/24/21) 9.2 (05/17/21) PLATELETS 1000/mcL 245 (05/31/21) 236 (05/03/21) IRON SATURATION % 18 (05/31/21) 30 (05/03/21) FERRITIN ng/mL 250 (05/10/21) ALBUMIN (G/DL) g/dL 3.7 (05/31/21) 3.8 (05/03/21) Sodium mEq/L 140 (05/31/21) 137 (05/03/21) POTASSIUM (MMOL/L) IN SER/PLAS mEq/L 3.7 (05/31/21) 4.2 (05/03/21) BICARBONATE (CO2) mEq/L 25 (05/31/21) 27 (05/03/21) BUN/CREATININE (MASS RATIO) IN SER/PLAS 10.4 (05/31/21) 11.4 (05/03/21) Calcium mg/dL 9.3 (05/31/21) 9.1 (05/03/21) Calcium Phos Product 59 (05/31/21) 55 (05/03/21) CALCIUM (MG/DL) CORRECTED FOR ALBUMIN IN SER/PLAS mg/dL 9.5 (05/31/21) 9.3 (05/03/21) PHOSPHATE (MG/DL) IN SER/PLAS mg/dL 6.3 (05/31/21) 6.0 (05/03/21) IPTH pg/mL 493 (05/31/21) 505 (05/03/21) 694 (04/05/21) Vascular Access Assessment: Type of access: Catheterand LUE AVF Duplex u/s of 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 [facility]. Impression and Plan Increase EDW to 44 Kg Discussed ongoing limit of 2L UF and thus need for 2L gain or less between treatments She has access procedure for ligation in early July, hopefully then AVF will fully mature Landon Calvert MD [ Signed And locked electronically On 06/21/2021 at 09:39:04 AM ] Transcribed: Landon Calvert ( 06/21/2021 ) documented in this encounter Plan of Treatment Not on filedocumented as of this encounter Visit Diagnoses Not on filedocumented in this encounter Care Teams Business Instructor Relationship Specialty Start Date End Date Fabian Arias MD PCP - General Family Medicine 09/04/[address] [place] [address] documented as of this encounter
--- OUTSIDE RECORDS SUMMARY | 2022-03-08 08:41 | XMS_ITS | Encounter Summary ---
:1940 Author Organization [facility] Address [address] [place] [address] Care Team Providers Name Role Phone Fabian Arias MD Primary Care Provider Encounter Details Date Type Department Care Team Description 07/05/2021 Orders Only [facility] O f Landon Zarate MD [address] [place] [address] [place], [place] [phone] (Wo rk) Social History Tobacco Use Types Packs/Day Years Used Date Smoking Tobacco: Never Assessed Sex Assigned at Date Recorded Not on file documented as of this encounter Plan of Treatment Not on filedocumented as of this encounter Procedures Procedure Name Priority Date/Time Associated Diagnosis Comme nts HD KINETICS Routine 07/05/2021 Results for thi s procedure are i n the results section . SPECIAL CHEMISTRY Routine 07/05/2021 Results fo r this procedure are i n the results section . POST CHEMISTRY Routine 07/05/2021 Results for t his procedure are i n the results section . IMMUNO CHEMISTRY Routine 07/05/2021 Results for this procedure are i n the results section . TRACE ELEMENTS Routine 07/05/2021 Results for t his procedure are i n the results section . HEMATOLOGY Routine 07/05/2021 Results for thi s procedure are i n the results section . CHEMISTRY Routine 07/05/2021 Results for thi s procedure are i n the results section . CHEMISTRY Routine 07/05/2021 Results for thi s procedure are i n the results section . SPECTRA [facility] LAB RESULTS Routine 07/05/2021 Resul ts for this procedure are i n the results section . documented in this encounter Results Spectra [facility] Lab Results (07/05/2021) athologist Signature spKt/V 1.72 CELIA (Daugirdas II) eKt/V 1.46 [facility] ([place]) Specimen (Source) Anatomical Location Collection Method / Collectio n Time Received Time / Laterality Volume 07/05/2021 07/05/2021 Celia Ordering Provider LAB BLOOD ORDERABLES Performing Organization Address City/State/ZIP Code Phon e Number [facility] SPECIAL CHEMISTRY (07/05/2021) athologist Signature Vitamin D, 77.7 19.9 - APS SPECTRA 1,25-Dihydroxy 79.3 pg/mL [facility] Specimen (Source) Anatomical Collection Method Collection Time Re ceived Time Location / / Volume Laterality 07/05/2021 07/07/2021 12:1 5 PM BABY FORMULA WORKER Narrative APS SPECTRA [facility] - 07/10/2021 Unless otherwise specified, test(s) performed at: [facility], [address] [place] [address] DISPATCHER BUS AND TROLLEY: Carl Paula M.D. For any questions, please call customer service at FREQUENCY:MONTHLY Resulting Agency Comment Specimen source: Serum Landon Calvert MD LAB BLOOD BANK TEST ORDERABL ES Performing Organization Address City/[facility]/ZIP Code Phon e Number APS SPECTRA [facility] IMMUNO CHEMISTRY (07/05/2021) athologist Signature Hep B Surface Negative Negative APS SPECTRA Ag [facility] Hepatitis B 55 mIU/mL APS SPECTRA Surface Ab [facility] Comment: The anti-HBs (Hepatitis B surface antibo dy) is greater than or equal to 10 mIU/mL and implies immunity. The kemar ent has either had an antibody response to HBV vaccination, received a transfusion, or has recovered from HBV infection. For post-vaccination antibody testing guidelines for the general public, refer to MMWR Decemb 2004/Vol.54 (No. 16); 1-23, and for healthcare workers, refer to MMWR [...] The above test result was obtained using Siemens Centaur XP chemiluminescent method. Results obtaine d with different assay methods or kits cannot be used interchangeably. Specimen (Source) Anatomical Collection Method Collection Time Re ceived Time Location / / Volume Laterality 07/05/2021 07/07/2021 12:1 5 PM BABY FORMULA WORKER Resulting Agency Comment Specimen source: Serum Landon Calvert MD LAB BLOOD ORDERABLES Performing Organization Address City/State/ZIP Code Phon e Number APS SPECTRA [facility] TRACE ELEMENTS (07/05/2021) P athologist Signature Aluminum <5 0 - 10 APS SPECTRA mcg/L [facility] Comment: This test was developed and its performa nce characteristics determined by [facility]. It has not been cleared or approved by the FDA. The laboratory is regulated under CLIA a s qualified to perform high complexity testing. This test is used fo r clinical purposes. It should not be regarded as investigational or fo r research. Specimen (Source) Anatomical Collection Method Collection Time Re ceived Time Location / / Volume Laterality 07/05/2021 07/07/2021 1:01 PM BABY FORMULA WORKER Narrative APS SPECTRA [facility] - 07/09/2021 Unless otherwise specified, test(s) performed at: [facility], [address] [place] [id number] DISPATCHER BUS AND TROLLEY: Carl Paula M.D. For any questions, please call customer service at FREQUENCY:MONTHLY Resulting Agency Comment Specimen source: Serum Landon Calvert MD LAB BLOOD ORDERABLES Performing Organization Address City/State/ZIP Code Phon e Number APS SPECTRA [facility] (ABNORMAL) Spectrae Chemistry (07/05/2021) P athologist Signature PTH 254 (H) 16 - 80 APS SPECTRA pg/mL [facility] Specimen (Source) Anatomical Collection Method Collection Time Re ceived Time Location / / Volume Laterality 07/05/2021 07/07/2021 12:3 5 PM BABY FORMULA WORKER Narrative APS SPECTRA [facility] - 07/08/2021 Unless otherwise specified, test(s) performed at: [facility], [address] [place] [id number] DISPATCHER BUS AND TROLLEY: Carl Paula M.D. For any questions, please call customer service at FREQUENCY:MONTHLY Resulting Agency Comment Specimen source: Plasma Landon Calvert MD LAB BLOOD ORDERABLES Performing Organization Address City/State/[facility] Phon e Number APS SPECTRA [facility] HD KINETICS (07/05/2021) P athologist Signature % Urea 78 65 - 80 % APS SPECTRA Reduction [facility] Specimen (Source) Anatomical Collection Method Collection Time Re ceived Time Location / / Volume Laterality 07/05/2021 07/07/2021 12:1 5 PM BABY FORMULA WORKER Narrative APS SPECTRA [facility] - 07/07/2021 Unless otherwise specified, test(s) performed at: [facility], [address] [place] [address] DISPATCHER BUS AND TROLLEY: Carl Paula M.D. For any questions, please call customer service at FREQUENCY:MONTHLY Resulting Agency Comment Specimen source: Serum Landon Calvert MD LAB BLOOD ORDERABLES Performing Organization Address City/State/[facility] Code Phon e Number APS SPECTRA [facility] (ABNORMAL) Spectrae Chemistry (07/05/2021) Patholo gist Method Time Signature BUN 36 (H) 6 - 19 APS SPECTRA mg/dL [facility] Creatinine 5.31 (H) 0.60 - APS SPECTRA 1.30 mg/dL [facility] BUN/Creatinine 6.8 (L) 10.0 - APS SPECTRA Ratio 20.0 [facility] Sodium 140 136 - 145 APS SPECTRA mEq/L [facility] Potassium 4.7 3.5 - 5.1 APS SPECTRA mEq/L [facility] Chloride 97 96 - 108 APS SPECTRA mEq/L [facility] Bicarbonate 30 (H) 22 - 29 APS SPECTRA (CO2) mEq/L [facility] Calcium 9.7 8.4 - 10.2 APS SPECTRA mg/dL [facility] Corrected 9.9 8.4 - 10.2 APS SPECTRA Calcium mg/dL [facility] Comment: Corrected Calcium is not equivalent to m easured Ionized Calcium. Phosphorus 5.6 (H) 2.6 - 4.5 mg/dL APS SPECTRA K [facility] Calcium Phosphorus Product 54 0 - 54 APS SPECTRA [facility] Calcium Phosporus Product, Cor 55 (H) 0 - 54 APS SPECTRA [facility] Alkaline Phosphatase 59 35 - 104 U/L APS SP ECTRA [facility] Total Protein 6.7 6.0 - 8.5 g/dL APS SPECTRA [facility] Albumin 3.7 3.5 - 5.2 g/dL APS SPECTRA [facility] [place] Globulin, Total 3.0 2.0 - 4.0 g/dL APS SPECT RA [facility] A/G Ratio 1.2 1.0 - 2.0 APS SPECTRA [facility] Magnesium 3.0 (H) 1.6 - 2.6 mg/dL APS SPECTRA [place] [facility] Iron 44 30 - 160 mcg/dL APS SPECTRA [place] [facility] UIBC 175 155 - 355 mcg/dL APS SPECTRA K [facility] TIBC 219 185 - 515 mcg/dL APS SPECTRA K [facility] Iron Saturation (TSat) 20 20 - 55 % APS SPE CTRA [facility] Ferritin 293 (H) 10 - 291 ng/mL APS SPECTRA [facility] [place] Specimen (Source) Anatomical Collection Method Collection Time Re ceived Time Location / / Volume Laterality 07/05/2021 07/07/2021 12:1 5 PM BABY FORMULA WORKER Narrative APS SPECTRA [facility] - 07/09/2021 Unless otherwise specified, test(s) performed at: [facility], [address] [place] [id number] DISPATCHER BUS AND TROLLEY: Carl Paula M.D. For any questions, please call customer service at FREQUENCY:MONTHLY Resulting Agency Comment Specimen source: Serum Landon Calvert MD LAB BLOOD ORDERABLES Performing Organization Address City/State/ZIP Code Phon e Number APS SPECTRA [facility] POST CHEMISTRY (07/05/2021) P athologist Signature BUN Post 8 6 - 19 APS SPECTRA Dialysis mg/dL [facility] Specimen (Source) Anatomical Collection Method Collection Time Re ceived Time Location / / Volume Laterality 07/05/2021 07/07/2021 11:4 1 AM BABY FORMULA WORKER Narrative APS SPECTRA [facility] - 07/07/2021 Unless otherwise specified, test(s) performed at: [facility], [address] [place] [id number] DISPATCHER BUS AND TROLLEY: Carl Paula M.D. For any questions, please call customer service at FREQUENCY:MONTHLY Resulting Agency Comment Specimen source: Plasma Landon Calvert MD LAB BLOOD ORDERABLES Performing Organization Address City/[facility] Code Phon e Number APS SPECTRA [facility] (ABNORMAL) HEMATOLOGY (07/05/2021) Analysis Performed At Patho logist Time Signature WBC 6.61 4.80 - APS SPECTRA 10.80 [facility] 1000/mcL RBC 3.68 (L) 4.20 - APS SPECTRA 5.40 [facility] mill/mcL Hemoglobin 10.7 (L) 12.0 - APS SPECTRA 16.0 g/dL [facility] Hemoglobin x 3 32.1 (L) 36.0 - APS SPECTRA 48.0 % [facility] Hematocrit 31.9 (L) 37.0 - APS SPECTRA 47.0 % [facility] MCV 87 80 - 100 APS SPECTRA fl [facility] MCH 29.1 27.0 - APS SPECTRA 31.0 pg [facility] MCHC 33.6 30.0 - APS SPECTRA 36.0 g/dL [facility] RDW 16.5 (H) 11.5 - APS SPECTRA 14.5 % [facility] Platelets 390 130 - 400 APS SPECTRA 1000/mcL [facility] Specimen (Source) Anatomical Collection Method Collection Time Re ceived Time Location / / Volume Laterality 07/05/2021 07/07/2021 12:0 8 PM BABY FORMULA WORKER Narrative APS SPECTRA [facility] - 07/07/2021 Unless otherwise specified, test(s) performed at: [facility], [address] [place] [id number] DISPATCHER BUS AND TROLLEY: Carl Paula M.D. For any questions, please call customer service at FREQUENCY:MONTHLY Resulting Agency Comment Specimen source: Blood Landon Calvert MD LAB BLOOD ORDERABLES Performing Organization Address City/[facility]/ZIP [facility] Phon e Number APS SPECTRA [facility] documented in this encounter Visit Diagnoses Not on filedocumented in this encounter Care Teams Professional Services Manager Relationship Specialty Start Date End Date Fabian Arias MD PCP - General Family Medicine 09/04/[address] [place] [address] documented as of this encounter
--- OUTSIDE RECORDS SUMMARY | 2022-03-08 08:41 | XMS_ITS | Encounter Summary ---
:1940 Author Organization [facility] Address [address] [place] [address] Care Team Providers Name Role Phone Fabian Arias MD Primary Care Provider Encounter Details Date Type Department Care Team Description 09/20/2021 Treatment [facility] f Landon Zarate MD [address] [place] [address] [place], [place] [phone] (Wo rk) Social History Tobacco Use Types Packs/Day Years Used Date Smoking Tobacco: Smoker, Current Cigarettes Started: 07/01/1976 Status Unknown Sex Assigned at Date Recorded Not on file documented as of this encounter Miscellaneous Notes Dialysis Note - Landon Calvert MD - 09/20/2021 10:31 AM CDT Date: Sep 20, 2021 Patient Name: Zamzam Garibay : 1940 Chart #: [id number] Sex: F This patient was personally seen for a basic visit as part of routine weekly dialysis care. A reviewof the dialysis treatment, blood pressure, estimated dry weight and recent lab values was made. These were discussed with the patient and staff as necessary. Treatment Medication Orders Medication Sig Start Date [...] units IVP Every Treatment 07/05/2021 07/04/2022 Mircera 50 mcg IVP Every 2 weeks 09/20/2021 09/19/2022 Vitamin D (Calcitriol) Oral 1.0 mcg ORAL Every Treatment 06/05/2021 06/04/2022 SECOND BAKER: Landon Calvert MD LOCATION: [phone] SCHEDULE: -W- 2nd Shift ACCESS: EDW: kg. DIALYZER: HD DURATION: NEEDLE SIZE: ANTICOAG: BATH: QB: ml/min QD: ml/min Subjective Tolerating dialysis well. 09/20/21: She is doing well, Fluid gains improved, no SOB or edema. She has access appt on 10/03 at [facility]. No concerns today. 09/06/21: She is 9 [...] This is Jaz's first day back from [facility]. She says she had no symptoms, but her son tested her when she was fatigued and had fever. She reports now having no symptoms at all. She says she feels great. Fluid gains have been better. 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 Can't remove [...] HD. 04/26/21: She was hospitalized briefly at [facility] for dyspnea, no pneumonia but rather related to CHF. She saw cardiology in follow-up in clinic, lisinopril and metoprolol and lasix with UF on HD to dry weight recommended. She is not interested in home dialysis, discussed today. 04/12/21: Patient new to me. She followed with web content director in [facility], did not follow-up,crashed [...] mouth once a day 04/12/2021 RenaPlex-D (vit b,s-nu-jwax-selen-vit d3-e) 800 mcg-12.5 mg-2,000 unit tablet Take 1 tablet by mouthonce a day trazodone 50 mg tablet Take 1 tablet by mouth every night as needed 04/12/2021 Allergy List Allergen Reaction Reaction Severity Onset Date Venofer Skin rash Medications reviewed and no changes were made. BUN mg/dL 61 (08/30/21) 93 (08/07/21) 80 [...] (08/07/21) 1.7200 (07/05/21) 2.1200 (05/31/21) 2.1200 (05/03/21) HEMOGLOBIN (G/DL) IN BLOOD g/dL 9.6 (09/13/21) 9.8 (09/06/21) 9.4 (08/30/21) 9.2 (08/23/21) 9.1 (08/16/21) PLATELETS 1000/mcL 299 (08/30/21) 329 (08/02/21) 390 (07/05/21) 245 (05/31/21) 236 (05/03/21) IRON SATURATION % 16 (08/30/21) 18 (08/02/21) 20 (07/05/21) 18 (05/31/21) 30 (05/03/21) FERRITIN ng/mL 293 (07/05/21) 250 (05/10/21) ALBUMIN (G/DL) g/dL 4.0 (08/30/21) 3.9 (08/02/21) 3.7 (07/05/21) Sodium mEq/L 142 (08/30/21) 140 (08/02/21) 140 (07/05/21) POTASSIUM (MMOL/L) IN SER/PLAS mEq/L 5.2 (08/30/21) 3.8 (08/02/21) 4.7 (07/05/21) BICARBONATE (CO2) mEq/L 21 (08/30/21) 22 (08/02/21) 30 (07/05/21) BUN/CREATININE (MASS RATIO) IN SER/PLAS 8.1 (08/30/21) 9.8 (08/02/21) 6.8 (07/05/21) Calcium mg/dL 9.7 (08/30/21) 9.4 (08/02/21) 9.7 (07/05/21) Calcium Phos Product 72 (08/30/21) 88 (08/02/21) 54 (07/05/21) CALCIUM (MG/DL) CORRECTED FOR ALBUMIN IN SER/PLAS mg/dL 9.7 (08/30/21) 9.5 (08/02/21) 9.9 (07/05/21) PHOSPHATE (MG/DL) IN SER/PLAS mg/dL 7.4 (08/30/21) 9.4 (08/02/21) 5.6 (07/05/21) IPTH pg/mL 254 (07/05/21) 493 (05/31/21) 505 (05/03/21) Vascular Access Assessment: Type of access: Catheterand LUE AVF [facility] appt 08/2021: LUE AVF lower arm placed in [place], 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 Will need new access placement. She is being set up for vein mapping and surgeon consult Impression and Plan Stable dialysis, no changes today Congratulated on improved fluid gains. She stopped eating Nachos Follow phos control with change in diet and on binder Access appt 10/03 at [facility] Landon Calvert MD [ Signed And locked electronically On 09/20/2021 at 10:33:08 AM ] Transcribed: Landon Calvert ( 09/20/2021 ) documented in this encounter Plan of Treatment Not on filedocumented as of this encounter Visit Diagnoses Not on filedocumented in this encounter Care Teams Sewer Head Relationship Specialty Start Date End Date Fabian Arias MD PCP - General Family Medicine 09/04/[address] [place] [address] documented as of this encounter
--- OUTSIDE RECORDS SUMMARY | 2022-03-08 08:41 | XMS_ITS | Encounter Summary ---
:1940 Author Organization [facility] Address [address] [place] [address] Care Team Providers Name Role Phone Fabian Arias MD Primary Care Provider Encounter Details Date Type Department Care Team Description 08/16/2021 Treatment [facility] Landon Zarate MD [address] [place] [address] [place], [place] [phone] (Wo rk) Social History Tobacco Use Types Packs/Day Years Used Date Smoking Tobacco: Smoker, Current Cigarettes Started: 07/01/1976 Status Unknown Sex Assigned at Date Recorded Not on file documented as of this encounter Miscellaneous Notes Dialysis Note - Landon Calvert MD - 08/16/2021 10:12 AM CST Date: Aug 16, 2021 Patient Name: Zamzam Garibay : 1940 Chart #: [id number] Sex: F This patient was personally seen for a basic visit as part of routine weekly dialysis care. A reviewof the dialysis treatment, blood pressure, estimated dry weight and recent lab values was made. These were discussed with the patient and staff as necessary. Treatment Data for 08/16/2021 started at:6:29 AM Dialyzer: 160NRe Optiflux Na: 137 mEq/L Bicarb: 33 mEq/L Dialysate: 3.0 K, 2.25 Ca, 1.0 Mg, 100 Dextrose (G3231) Dialysate/Machine Temp (prescribed): 37 C Dialysate/Machine Temp (actual): 36.5 C BFR (prescribed): 400 BFR (actual): 400 Prescribed time: 03:30 EDW: 45 kg Access Type: Active (In Use):CVCatheter-Tunneled/Chest Pre Dialysis Vitals (for 08/16/2021 6:12 AM ) Pre BP (sit): 159/84 Pre Wt: 49.8 kg Temp: 96 F Post Dialysis Vitals (for 08/14/2021 9:53 AM ) Post BP (sit): 158/78 Post Wt: 49.1 kg Current Dialysis Vitals (for 08/16/2021 10:01 AM ) BP (sit): 169/86 AP(-) / NURSE CLINICAL: 218/151 Pulse: 80 Chairside data as of 08/16/2021 10:01 AM Last 3 Treatments 08/14/2021 08/11/2021 08/09/2021 EDW (kg) 45 45 45 Weight Pre (kg) 50.6 49.4 49.7 Weight Post (kg) 49.1 47.7 47.5 Dialytic Weight Loss (kg) -1.5 -1.7 -2.2 EDW Deviation (kg) 4.1 2.7 2.5 BP Sit Pre 192/89 175/75 163/83 BP Sit Post 158/78 151/79 153/76 UF Rate (mL/kg/hr) 11 11 14 Prescribed BFR 400 400 400 Average Delivered BFR 410 400 410 Prescribed Treatment Time 03:30 03:30 03:30 Actual Treatment Time 03:07 03:32 03:31 BELT BACK OPERATOR: Landon Calvert MD LOCATION: [phone] SCHEDULE: -W- 2nd Shift ACCESS: EDW: kg. DIALYZER: HD DURATION: NEEDLE SIZE: ANTICOAG: BATH: QB: ml/min QD: ml/min Subjective Tolerating dialysis well. 08/16/21: She is gaining too much fluid, [...] Jaz's first day back from [facility] unit. She says she had no symptoms, but her son tested her when she was fatigued and had fever. She reports now having no symptoms at all. She says she feels great. Fluid gains have been better. 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 Can't remove [...] HD. 04/26/21: She was hospitalized briefly at [facility] for dyspnea, no pneumonia but rather related to CHF. She saw cardiology in follow-up in clinic, lisinopril and metoprolol and lasix with UF on HD to dry weight recommended. She is not interested in home dialysis, discussed today. 04/12/21: Patient new to me. She followed with apparatus operator in [facility], did not follow-up,crashed into dialysis in January [...] mouth once a day 04/12/2021 RenaPlex-D (vit b,t-rt-tueu-selen-vit d3-e) 800 mcg-12.5 mg-2,000 unit tablet Take 1 tablet by mouthonce a day trazodone 50 mg tablet Take 1 tablet by mouth every night as needed 04/12/2021 Allergy List Allergen Reaction Reaction Severity Onset Date Venofer Skin rash Medications reviewed and no changes were made. BUN mg/dL 93 (08/07/21) 80 (08/02/21) 36 (07/05/21) 64 (05/31/21) 61 (05/03/21) UREA NITROGEN (MG/DL) IN SER/PLAS - POST DIALYSIS mg/dL 19 (08/07/21) 8 (07/05/21) 11 (05/31/21) 10 (05/03/21) URR % 80 (08/07/21) 78 (07/05/21) 83 (05/31/21) 84 (05/03/21) spKt/V Gotch 1.85 (08/07/21) 2.12 (05/31/21) 2.1 (05/03/21) eKdrt/V 1.57 (08/07/21) 1.79 (05/31/21) 1.78 (05/03/21) spKt/V (Daugirdas II) 1.9000 (08/07/21) 1.7200 (07/05/21) 2.1200 (05/31/21) 2.1200 (05/03/21) HEMOGLOBIN (G/DL) IN BLOOD g/dL 8.1 (08/09/21) 9.4 (08/02/21) 9.2 (07/26/21) 9.1 (07/19/21) 9.2 (07/12/21) PLATELETS 1000/mcL 329 (08/02/21) 390 (07/05/21) 245 (05/31/21) 236 (05/03/21) IRON SATURATION % 18 (08/02/21) 20 (07/05/21) 18 (05/31/21) 30 (05/03/21) FERRITIN ng/mL 293 (07/05/21) 250 (05/10/21) ALBUMIN (G/DL) g/dL 3.9 (08/02/21) 3.7 (07/05/21) 3.7 (05/31/21) Sodium mEq/L 140 (08/02/21) 140 (07/05/21) 140 (05/31/21) POTASSIUM (MMOL/L) IN SER/PLAS mEq/L 3.8 (08/02/21) 4.7 (07/05/21) 3.7 (05/31/21) BICARBONATE (CO2) mEq/L 22 (08/02/21) 30 (07/05/21) 25 (05/31/21) BUN/CREATININE (MASS RATIO) IN SER/PLAS 9.8 (08/02/21) 6.8 (07/05/21) 10.4 (05/31/21) Calcium mg/dL 9.4 (08/02/21) 9.7 (07/05/21) 9.3 (05/31/21) Calcium Phos Product 88 (08/02/21) 54 (07/05/21) 59 (05/31/21) CALCIUM (MG/DL) CORRECTED FOR ALBUMIN IN SER/PLAS mg/dL 9.5 (08/02/21) 9.9 (07/05/21) 9.5 (05/31/21) PHOSPHATE (MG/DL) IN SER/PLAS mg/dL 9.4 (08/02/21) 5.6 (07/05/21) 6.3 (05/31/21) IPTH pg/mL 254 (07/05/21) 493 (05/31/21) 505 (05/03/21) Vascular Access Assessment: Type of access: Catheterand LUE AVF Duplex u/s of 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 Have had difficulty getting her into [facility], now has procedure scheduled at [facility] but delayed until August due to COVID infection. Has appt at [facility] 08/22/21 Impression and Plan Increase EDW to 46 Kg Lower IDWG discussed in detail, may need extra run for UF on occasion to avoid pulmonary edema Disucssed renal diet and phos binder, emphasized this today with phos jump to 9.4! She has access appt next week, got postponed again but procedure planned at [facility] next week on Saturday Landon Calvert MD [ Signed And locked electronically On 08/16/2021 at 10:17:00 AM ] Transcribed: Landon Calvert ( 08/16/2021 ) documented in this encounter Plan of Treatment Not on filedocumented as of this encounter Visit Diagnoses Not on filedocumented in this encounter Care Teams Safety Director Relationship Specialty Start Date End Date Fabian Arias MD PCP - General Family Medicine 09/04/[address] [place] [address] documented as of this encounter
--- OUTSIDE RECORDS SUMMARY | 2022-03-08 08:41 | XMS_ITS | Encounter Summary ---
:1940 Author Organization [facility] Address [address] [place] [address] Care Team Providers Name Role Phone Fabian Arias MD Primary Care Provider Encounter Details Date Type Department Care Team Description 07/12/2021 Orders Only [facility] O f Landon Zarate MD [address] [place] [address] [place], [place] [phone] (Wo rk) Social History Tobacco Use Types Packs/Day Years Used Date Smoking Tobacco: Never Assessed Sex Assigned at Date Recorded Not on file documented as of this encounter Plan of Treatment Not on filedocumented as of this encounter Procedures Procedure Name Priority Date/Time Associated Diagnosis Comme nts HEMATOLOGY Routine 07/12/2021 Results for thi s procedure are in the resu lts section. documented in this encounter Results (ABNORMAL) HEMATOLOGY (07/12/2021) Analysis Performed At Patho logist Time Signature Hemoglobin 9.2 (L) 12.0 - APS SPECTRA 16.0 g/dL [facility] Hemoglobin x 3 27.6 (L) 36.0 - APS SPECTRA 48.0 % [facility] Specimen (Source) Anatomical Collection Method Collection Time Re ceived Time Location / / Volume Laterality 07/12/2021 07/13/2021 7:43 PM FLOUR INSPECTOR Narrative APS SPECTRA [facility] - 07/14/2021 Unless otherwise specified, test(s) performed at: [facility], [address] [place] [id number] INKER: Carl Paula M.D. For any questions, please call customer service at FREQUENCY:OTHER Resulting Agency Comment Specimen source: Blood Landon Calvert MD LAB BLOOD ORDERABLES Performing Organization Address City/State/ZIP Code Phon e Number APS SPECTRA [facility] documented in this encounter Visit Diagnoses Not on filedocumented in this encounter Care Teams Helicopter Repairer Relationship Specialty Start Date End Date Fabian Arias MD PCP - General Family Medicine 09/04/[address] [place] [address] documented as of this encounter
--- OUTSIDE RECORDS SUMMARY | 2022-03-08 08:41 | XMS_ITS | Encounter Summary ---
:1940 Author Organization [facility] Address [address] [place] [address] Care Team Providers Name Role Phone Fabian Arias MD Primary Care Provider Encounter Details Date Type Department Care Team Description 08/07/2021 Orders Only [facility] f Landon Zarate MD [address] [place] [address] [place], [place] [phone] (Wo rk) Social History Tobacco Use Types Packs/Day Years Used Date Smoking Tobacco: Smoker, Current Cigarettes Started: 07/01/1976 Status Unknown Sex Assigned at Date Recorded Not on file documented as of this encounter Plan of Treatment Not on filedocumented as of this encounter Procedures Procedure Name Priority Date/Time Associated Diagnosis Comme nts HD KINETICS Routine 08/07/2021 Results for thi s procedure are i n the results section . POST CHEMISTRY Routine 08/07/2021 Results for t his procedure are i n the results section . CHEMISTRY Routine 08/07/2021 Results for thi s procedure are i n the results section . SPECTRA [facility] LAB RESULTS Routine 08/07/2021 Resul ts for this procedure are i n the results section . documented in this encounter Results Spectra [facility] Lab Results (08/07/2021) P athologist Signature spKt/V 1.90 [facility] (Daugirdas II) eKt/V Gotch 1.57 [facility] PCR 61.81 [facility] eKt/V 1.63 [facility] ([place]) eKdrt/V 1.57 [facility] eNPCR 1.26 [facility] spKt/V Gotch 1.85 [facility] nPCR_HD 1.41 [facility] Specimen (Source) Anatomical Location Collection Method / Collectio n Time Received Time / Laterality Volume 08/07/2021 08/07/2021 Celia Ordering Provider LAB BLOOD ORDERABLES Performing Organization Address City/[facility] Phon e Number [facility] HD KINETICS (08/07/2021) P athologist Signature % Urea 80 65 - 80 % APS SPECTRA Reduction [facility] Specimen (Source) Anatomical Collection Method Collection Time Re ceived Time Location / / Volume Laterality 08/07/2021 08/08/2021 7:17 PM SWITCHBOARD AND CONTROL ROOM OPERATOR Narrative APS SPECTRA [facility] - 08/09/2021 Unless otherwise specified, test(s) performed at: [facility], [address] [place] [address] POULTRY CULLER: Carl Paula M.D. For any questions, please call customer service at FREQUENCY:OTHER Resulting Agency Comment Specimen source: Serum Landon Calvert MD LAB BLOOD ORDERABLES Performing Organization Address City/[facility] Phon e Number APS SPECTRA [facility] (ABNORMAL) Spectrae Chemistry (08/07/2021) P athologist Signature BUN 93 (H) 6 - 19 APS SPECTRA mg/dL [facility] Specimen (Source) Anatomical Collection Method Collection Time Re ceived Time Location / / Volume Laterality 08/07/2021 08/08/2021 7:17 PM SWITCHBOARD AND CONTROL ROOM OPERATOR Narrative APS SPECTRA [facility] - 08/09/2021 Unless otherwise specified, test(s) performed at: [facility], [address] [place] [address] POULTRY CULLER: Carl Paula M.D. For any questions, please call customer service at FREQUENCY:OTHER Resulting Agency Comment Specimen source: Serum Landon Calvert MD LAB BLOOD ORDERABLES Performing Organization Address City/[facility] Phon e Number APS SPECTRA [facility] POST CHEMISTRY (08/07/2021) P athologist Signature BUN Post 19 6 - 19 APS SPECTRA Dialysis mg/dL [facility] Specimen (Source) Anatomical Collection Method Collection Time Re ceived Time Location / / Volume Laterality 08/07/2021 08/08/2021 6:10 PM SWITCHBOARD AND CONTROL ROOM OPERATOR Narrative APS SPECTRA [facility] - 08/09/2021 Unless otherwise specified, test(s) performed at: [facility], [address] [place] [address] POULTRY CULLER: Carl Paula M.D. For any questions, please call customer service at FREQUENCY:OTHER Resulting Agency Comment Specimen source: Plasma Landon Calvert MD LAB BLOOD ORDERABLES Performing Organization Address City/State/ZIP Code Phon e Number APS SPECTRA [facility] documented in this encounter Visit Diagnoses Not on filedocumented in this encounter Care Teams Molder Helper Relationship Specialty Start Date End Date Fabian Arias MD PCP - General Family Medicine 09/04/[address] [place] [address] documented as of this encounter
--- OUTSIDE RECORDS SUMMARY | 2022-03-08 08:41 | XMS_ITS | Encounter Summary ---
:1940 Author Organization [facility] Address [address] [place] [address] Care Team Providers Name Role Phone Fabian Arias MD Primary Care Provider Encounter Details Date Type Department Care Team Description 06/27/2021 Orders Only [facility] O f Landon Zarate MD [address] [place] [address] [place], [place] [phone] (Wo rk) Social History Tobacco Use Types Packs/Day Years Used Date Smoking Tobacco: Never Assessed Sex Assigned at Date Recorded Not on file documented as of this encounter Plan of Treatment Not on filedocumented as of this encounter Procedures Procedure Name Priority Date/Time Associated Diagnosis Comme nts SARS COV 2 BY PCR () Routine 06/27/2021 Resul ts for this procedure are i n the results section . documented in this encounter Results (ABNORMAL) SARS-CoV-2 by PCR (06/27/2021) [facility] Method Time Signature SARS CoV-2 by [...] for the duration of time that the Wire Drawing Machine Tender of the HHS decla res circumstances exist justifying the authorization of the christiano gency use of in vitro diagnostic tests for detection of SARS-CoV-2 virus and/or diagnosis of COVID-19 infection under section 564(b)(1) of the Act, 21 U.S.C. 360bbb-3(b)(1), unless the authorization is terminated o r revoked sooner. To learn more about this test, go to [email or web address] Performed by: PLACIDO Wong [id number], CLIA [id number], [address] [place] [address] Land Appraiser: Anthony Keen, Ph D, [facility], [facility] ([facility]) Performed by: JANNA Wong [id number], [address] [place] [address], Sp Gonzales MD First COVID-19 Test? UNKNOWN APS SPECT RA [facility] Employed in Healthcare? UNKNOWN APS SP ECTRA [facility] Patient Symptomatic UNKNOWN APS SPECTR A [facility] Congregate Setting? UNKNOWN APS SPECTR A [facility] ? UNKNOWN APS SPECTRA [facility] Patient Occupation UNKNOWN APS SPECTRA [facility] Specimen Source ANTERIOR NARES APS SPECT RA [facility] Specimen (Source) Anatomical Collection Method Collection Time Re ceived Time Location / / Volume Laterality 06/27/2021 06/28/2021 7:27 PM PRODUCTION EDITOR Narrative APS SPECTRA [facility] - 06/28/2021 Unless otherwise specified, test(s) performed at: [facility], [facility] [place] [address] [address] PREVENTATIVE MAINTENANCE TECHNICIAN: Darnell Nguyen M.D. For any questions, please call customer service at FREQUENCY:OTHER Resulting Agency Comment Specimen source: Swab/ANTERIOR NARES Landon Calvert MD LAB KNYYOXNROT-[id number]-P NSOLICITED RESULTS Performing Organization Address City/State/ZIP Code Phon e Number APS SPECTRA [facility] documented in this encounter Visit Diagnoses Not on filedocumented in this encounter Care Teams Exceptional Student Education Teacher Relationship Specialty Start Date End Date Fabian Arias MD PCP - General Family Medicine 09/04/[address] [place] [address] documented as of this encounter
--- OUTSIDE RECORDS SUMMARY | 2022-03-08 08:41 | XMS_ITS | Encounter Summary ---
:1940 Author Organization [facility] Address [address] [place] [address] Care Team Providers Name Role Phone Fabian Arias MD Primary Care Provider Encounter Details Date Type Department Care Team Description 07/26/2021 Treatment [facility] Landon Zarate MD [address] [place] [address] [place], [place] [phone] (Wo rk) Social History Tobacco Use Types Packs/Day Years Used Date Smoking Tobacco: Smoker, Current Cigarettes Started: 07/01/1976 Status Unknown Sex Assigned at Date Recorded Not on file documented as of this encounter Miscellaneous Notes Dialysis Note - Landon Calvert MD - 07/26/2021 10:23 AM CST Date: Jul 26, 2021 Patient Name: Zamzam Garibay : 1940 Chart #: [id number] Sex: F This patient was personally seen [...] 04/04/2022 Heparin Sodium (Porcine) 1,000 Units/mL Systemic 2000 units IVP Every Treatment 07/05/2021 07/04/2022 Heparin Sodium (Porcine) 1,000 Units/mL Systemic 4000 units IVP Every Treatment 07/05/2021 07/04/2022 Mircera 50 mcg IVP Every 4 weeks 07/12/2021 07/11/2022 Vitamin D (Calcitriol) Oral 1.0 mcg ORAL Every Treatment 06/05/2021 06/04/2022 ADMISSIONS MANAGER RN: Landon Calvert MD LOCATION: [phone] SCHEDULE: -- 2nd Shift ACCESS: EDW: kg. DIALYZER: HD DURATION: NEEDLE SIZE: ANTICOAG: BATH: QB: ml/min QD: ml/min Subjective Tolerating dialysis well. 07/26/21: Intermittent high fluid gains, improved last few treatments, says she now is drinking VERY little and watching salt in diet as well. She says she feels great and has no symptoms at all and no dyspnea or orthopnea or SOB or edema. 07/05/21: This is Jaz's first day back from [facility]. She says she had no symptoms, but her son tested her when she was fatigued and had fever. She reports now having no symptoms at all. She says she feels great. Fluid gains have been better. 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 Can't remove more than about 2.5L generally due to symptoms of low BP (gets glossed over and nauseated).Discussed fluid gains in detail, twice this month has had high gain (once was 5L over the weekend ). She otherwise feels excellent beside SOB when [...] HD. 04/26/21: She was hospitalized briefly at [facility] for dyspnea, no pneumonia but rather related to CHF. She saw cardiology in follow-up in clinic, lisinopril and metoprolol and lasix with UF on HD to dry weight recommended. She is not interested in home dialysis, discussed today. 04/12/21: Patient new to me. She followed with sizing end bander in [facility], did not follow-up,crashed into dialysis [...] mouth once a day 04/12/2021 RenaPlex-D (vit b,c-mp-lnqi-selen-vit d3-e) 800 mcg-12.5 mg-2,000 unit tablet Take 1 tablet by mouthonce a day trazodone 50 mg tablet Take 1 tablet by mouth every night as needed 04/12/2021 Allergy List Allergen Reaction Reaction Severity Onset Date Venofer Skin rash Medications reviewed and no changes were made. BUN mg/dL 36 (07/05/21) 64 (05/31/21) 61 (05/03/21) UREA NITROGEN (MG/DL) IN SER/PLAS - POST DIALYSIS mg/dL 8 (07/05/21) 11 (05/31/21) 10 (05/03/21) URR % 78 (07/05/21) 83 (05/31/21) 84 (05/03/21) spKt/V Gotch 2.12 (05/31/21) 2.1 (05/03/21) eKdrt/V 1.79 (05/31/21) 1.78 (05/03/21) spKt/V (Daugirdas II) 1.7200 (07/05/21) 2.1200 (05/31/21) 2.1200 (05/03/21) HEMOGLOBIN (G/DL) IN BLOOD g/dL 9.1 (07/19/21) 9.2 (07/12/21) 10.7 (07/05/21) 10.8 (07/04/21) 12.2 (06/22/21) PLATELETS 1000/mcL 390 (07/05/21) 245 (05/31/21) 236 (05/03/21) IRON SATURATION % 20 (07/05/21) 18 (05/31/21) 30 (05/03/21) FERRITIN ng/mL 293 (07/05/21) 250 (05/10/21) ALBUMIN (G/DL) g/dL 3.7 (07/05/21) 3.7 (05/31/21) 3.8 (05/03/21) Sodium mEq/L 140 (07/05/21) 140 (05/31/21) 137 (05/03/21) POTASSIUM (MMOL/L) IN SER/PLAS mEq/L 4.7 (07/05/21) 3.7 (05/31/21) 4.2 (05/03/21) BICARBONATE (CO2) mEq/L 30 (07/05/21) 25 (05/31/21) 27 (05/03/21) BUN/CREATININE (MASS RATIO) IN SER/PLAS 6.8 (07/05/21) 10.4 (05/31/21) 11.4 (05/03/21) Calcium mg/dL 9.7 (07/05/21) 9.3 (05/31/21) 9.1 (05/03/21) Calcium Phos Product 54 (07/05/21) 59 (05/31/21) 55 (05/03/21) CALCIUM (MG/DL) CORRECTED FOR ALBUMIN IN SER/PLAS mg/dL 9.9 (07/05/21) 9.5 (05/31/21) 9.3 (05/03/21) PHOSPHATE (MG/DL) IN SER/PLAS mg/dL 5.6 (07/05/21) 6.3 (05/31/21) 6.0 (05/03/21) IPTH pg/mL 254 (07/05/21) 493 (05/31/21) 505 (05/03/21) Vascular Access Assessment: Type of access: Catheterand LUE AVF Duplex u/s of 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 Have had difficulty getting her into [facility], now has procedure scheduled at [facility] but delayed until August due to COVID infection Impression and Plan Will increase EDW 1 Kg Discussed importance of low fluid gains between treatments, especially given heart failure She will get COVID booster here next week, agrees to this after some convincing necessary Landon Calvert MD [ Signed And locked electronically On 07/26/2021 at 10:25:18 AM ] Transcribed: Landon Calvert ( 07/26/2021 ) documented in this encounter Plan of Treatment Not on filedocumented as of this encounter Visit Diagnoses Not on filedocumented in this encounter Care Teams Casino Porter Relationship Specialty Start Date End Date Fabian Arias MD PCP - General Family Medicine 09/04/[address] [place] [address] documented as of this encounter
--- OUTSIDE RECORDS SUMMARY | 2022-03-08 08:41 | XMS_ITS | Encounter Summary ---
:1940 Author Organization [facility] Address [address] [place] [address] Care Team Providers Name Role Phone Fabian Arias MD Primary Care Provider Encounter Details Date Type Department Care Team Description 05/24/2021 Orders Only [facility] f Landon Zarate MD [phone] [place] [address] [place], [place] [phone] (Wo rk) Social History Tobacco Use Types Packs/Day Years Used Date Smoking Tobacco: Never Assessed Sex Assigned at Date Recorded Not on file documented as of this encounter Plan of Treatment Not on filedocumented as of this encounter Procedures Procedure Name Priority Date/Time Associated Diagnosis Comme nts HEMATOLOGY Routine 05/24/2021 Results for thi s procedure are in the resu lts section. documented in this encounter Results (ABNORMAL) HEMATOLOGY (05/24/2021) Analysis Performed At Patho logist Time Signature Hemoglobin 9.9 (L) 12.0 - [facility] 16.0 g/dL [facility] Hemoglobin x 3 29.7 (L) 36.0 - [facility] 48.0 % [facility] Specimen (Source) Anatomical Collection Method Collection Time Re ceived Time Location / / Volume Laterality 05/24/2021 05/26/2021 10:5 5 AM BOOK SALESMAN Narrative [facility] - 05/26/2021 Unless otherwise specified, test(s) performed at: [facility], [address] [place] [id number] LIQUOR BLENDER: Carl Paula M.D. For any questions, please call customer service at FREQUENCY:OTHER Resulting Agency Comment Specimen source: Blood Landon Calvert MD LAB BLOOD ORDERABLES Performing Organization Address City/State/ZIP Code Phon e Number [facility] documented in this encounter Visit Diagnoses Not on filedocumented in this encounter Care Teams Director Information Security Relationship Specialty Start Date End Date Fabian Arias MD PCP - General Family Medicine 09/04/[address] [place] [address] documented as of this encounter
--- OUTSIDE RECORDS SUMMARY | 2022-03-08 08:41 | XMS_ITS | Encounter Summary ---
:1940 Author Organization [facility] Address [address] [place] [address] Care Team Providers Name Role Phone Fabian Arias MD Primary Care Provider Encounter Details Date Type Department Care Team Description 08/02/2021 Treatment [facility] Landon Zarate MD [address] [place] [address] [place], [place] [phone] (Wo rk) Social History Tobacco Use Types Packs/Day Years Used Date Smoking Tobacco: Smoker, Current Cigarettes Started: 07/01/1976 Status Unknown Sex Assigned at Date Recorded Not on file documented as of this encounter Miscellaneous Notes Dialysis Note - Landon Calvert MD - 08/02/2021 8:53 AM CST Date: Aug 02, 2021 Patient Name: Zamzam Garibay : 1940 Chart #: [id number] Sex: F This patient was personally seen for a complete visit as part of routine monthly dialysis care. A review of the dialysis treatment, blood pressure, estimated dry weight and recent lab values was made. These were discussed with the patient and staff as necessary. Treatment Data for 08/02/2021 started at:7:32 AM Dialyzer: 160NRe Optiflux Na: 137 mEq/L Bicarb: 33 mEq/L Dialysate: 2.0 K, 2.25 Ca, 1.0 Mg, 100 Dextrose (G2231) Dialysate/Machine Temp (prescribed): 37 C Dialysate/Machine Temp (actual): 37.5 C BFR (prescribed): 400 BFR (actual): 400 Prescribed time: 03:30 EDW: 45 kg Access Type: Active (In Use):CVCatheter-Tunneled/Chest Pre Dialysis Vitals (for 08/02/2021 7:14 AM ) Pre BP (sit): 136/72 Pre Wt: 47.9 kg Temp: 95 F Post Dialysis Vitals (for 07/31/2021 9:47 AM ) Post BP (sit): 153/80 Post Wt: 46.6 kg Current Dialysis Vitals (for 08/02/2021 8:32 AM ) BP (sit): 126/67 AP(-) / DRIVER LIFTER OF SANITATION TRUCK: 237/132 Pulse: 85 Chairside data as of 08/02/2021 8:32 AM Last 3 Treatments 07/31/2021 07/28/2021 07/26/2021 EDW (kg) 45 45 44 Weight Pre (kg) 48.6 48.3 49.2 Weight Post (kg) 46.6 46.5 47.2 Dialytic Weight Loss (kg) -2 -1.8 -2 EDW Deviation (kg) 1.6 1.5 3.2 BP Sit Pre 177/93 194/98 185/92 BP Sit Post 153/80 146/83 151/81 UF Rate (mL/kg/hr) 13 12 13 Prescribed BFR 400 400 400 Average Delivered BFR 410 410 360 Prescribed Treatment Time 03:30 03:30 03:30 Actual Treatment Time 03:29 03:14 03:26 FIXTURE FABRICATOR REPAIRER: Landon Calvert MD LOCATION: [place] [phone] SCHEDULE: -W- 2nd Shift EDW: kg. DIALYZER: HD DURATION: NEEDLE SIZE: ANTICOAG: BATH: QB: ml/min QD: ml/min Subjective Tolerating dialysis well. 08/02/21: She came in today with dressing [...] This is Jaz's first day back from [facility]. She says she had no symptoms, but her son tested her when she was fatigued and had fever. She reports now having no symptoms at all. She says she feels great. Fluid gains have been better. 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 Can't remove [...] HD. 04/26/21: She was hospitalized briefly at [facility] for dyspnea, no pneumonia but rather related to CHF. She saw cardiology in follow-up in clinic, lisinopril and metoprolol and lasix with UF on HD to dry weight recommended. She is not interested in home dialysis, discussed today. 04/12/21: Patient new to me. She followed with pole lift operator in [facility], did not follow-up,crashed into dialysis [...] mouth once a day 04/12/2021 RenaPlex-D (vit b,l-si-qjls-selen-vit d3-e) 800 mcg-12.5 mg-2,000 unit tablet Take 1 tablet by mouthonce a day trazodone 50 mg tablet Take 1 tablet by mouth every night as needed 04/12/2021 Allergy List Allergen Reaction Reaction Severity Onset Date Venofer Skin rash Medications reviewed and no changes were made. Treatment and Adequacy Assessment BUN mg/dL 36 (07/05/21) 64 (05/31/21) 61 (05/03/21) UREA NITROGEN (MG/DL) IN SER/PLAS - POST DIALYSIS mg/dL 8 (07/05/21) 11 (05/31/21) 10 (05/03/21) URR % 78 (07/05/21) 83 (05/31/21) 84 (05/03/21) spKt/V Gotch 2.12 (05/31/21) 2.1 (05/03/21) eKdrt/V 1.79 (05/31/21) 1.78 (05/03/21) spKt/V (Daugirdas II) 1.7200 (07/05/21) 2.1200 (05/31/21) 2.1200 (05/03/21) Dialysis is adequate. 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 Have had difficulty getting her into [facility], now has procedure scheduled at [facility] but delayed until August due to COVID infection. Has appt at [facility] 08/08/21 Anemia Assessment HEMOGLOBIN (G/DL) IN BLOOD g/dL 9.2 (07/26/21) 9.1 (07/19/21) 9.2 (07/12/21) 10.7 (07/05/21) 10.8 (07/04/21) PLATELETS 1000/mcL 390 (07/05/21) 245 (05/31/21) 236 (05/03/21) IRON SATURATION % 20 (07/05/21) 18 (05/31/21) 30 (05/03/21) FERRITIN ng/mL 293 (07/05/21) 250 (05/10/21) Hemoglobin is at goal. Iron Saturation is below goal. Ferritin is below goal. Will adjust CARIE and intravenous iron per protocol. No Venofer, reaction. If iron lower this month, will use Ferrilicit No CARIE with Hgb >11 Nutritional and Metabolic Assessment ALBUMIN (G/DL) g/dL 3.7 (07/05/21) 3.7 (05/31/21) 3.8 (05/03/21) Sodium mEq/L 140 (07/05/21) 140 (05/31/21) 137 (05/03/21) POTASSIUM (MMOL/L) IN SER/PLAS mEq/L 4.7 (07/05/21) 3.7 (05/31/21) 4.2 (05/03/21) BICARBONATE (CO2) mEq/L 30 (07/05/21) 25 (05/31/21) 27 (05/03/21) Albumin is below goal. Potassium is at goal. Bicarbonate is above goal. Decrease bicarbonate in dialysate. Bone and Mineral Metabolism Assessment Calcium mg/dL 9.7 (07/05/21) 9.3 (05/31/21) 9.1 (05/03/21) CALCIUM (MG/DL) CORRECTED FOR ALBUMIN IN SER/PLAS mg/dL 9.9 (07/05/21) 9.5 (05/31/21) 9.3 (05/03/21) PHOSPHATE (MG/DL) IN SER/PLAS mg/dL 5.6 (07/05/21) 6.3 (05/31/21) 6.0 (05/03/21) CALCIUM PHOSPHORUS PRODUCT, COR 55 (07/05/21) 60 (05/31/21) 56 (05/03/21) IPTH pg/mL 254 (07/05/21) 493 (05/31/21) 505 (05/03/21) 694 (04/05/21) Corrected Calcium is at goal. Phosphorous is above goal. Intact PTH is at goal. Knowledge Architect will adjust binders and vitamin D per protocol and continue to provide dietary education. Continue Ca acetate and calcitriol Cardiovascular Assessment Blood pressures reviewed and are acceptable. Intradialytic weight gains are appropriate. Estimated dry weight is appropriate. Continue same cardiovascular medications. Fluid gains improved Transplant Status: Patient is not a candidate. age and co-morbidities Resuscitation Status Stable dialysis, no change to prescription beside reducing dialysate Will have PCAD replaced on 08/08/21 at [facility] when she has AVF procedure scheduled. If they cannot do itthere, will do it at [facility] Monthly labs drawn today Landon Calvert MD [ Signed And locked electronically On 08/02/2021 at 08:57:22 AM ] Transcribed: Landon Calvert ( 08/02/2021 ) documented in this encounter Plan of Treatment Not on filedocumented as of this encounter Visit Diagnoses Not on filedocumented in this encounter Care Teams Hotel Associate Relationship Specialty Start Date End Date Fabian Arias MD PCP - General Family Medicine 09/04/[address] [place] [address] documented as of this encounter
--- OUTSIDE RECORDS SUMMARY | 2022-03-08 08:41 | XMS_ITS | Encounter Summary ---
:1940 Author Organization [facility] Address [address] [place] [address] Care Team Providers Name Role Phone Fabian Arias MD Primary Care Provider Encounter Details Date Type Department Care Team Description 06/14/2021 Orders Only [facility] f Landon Zarate MD [phone] [place] [address] [place], [place] [phone] (Wo rk) Social History Tobacco Use Types Packs/Day Years Used Date Smoking Tobacco: Never Assessed Sex Assigned at Date Recorded Not on file documented as of this encounter Plan of Treatment Not on filedocumented as of this encounter Procedures Procedure Name Priority Date/Time Associated Diagnosis Comme nts HEMATOLOGY Routine 06/14/2021 Results for thi s procedure are in the resu lts section. documented in this encounter Results (ABNORMAL) HEMATOLOGY (06/14/2021) Analysis Performed At Patho logist Time Signature Hemoglobin 10.4 (L) 12.0 - [facility] 16.0 g/dL [facility] Hemoglobin x 3 31.2 (L) 36.0 - [facility] 48.0 % [facility] Specimen (Source) Anatomical Collection Method Collection Time Re ceived Time Location / / Volume Laterality 06/14/2021 06/15/2021 1:55 PM [facility] Narrative [facility] - 06/15/2021 Unless otherwise specified, test(s) performed at: [facility], [address] [place] [id number] MBA INTERN: Carl Paula M.D. For any questions, please call customer service at FREQUENCY:OTHER Resulting Agency Comment Specimen source: Blood Landon Calvert MD LAB BLOOD ORDERABLES Performing Organization Address City/State/ZIP Code Phon e Number [facility] documented in this encounter Visit Diagnoses Not on filedocumented in this encounter Care Teams Package Lift Operator Relationship Specialty Start Date End Date Fabian Arias MD PCP - General Family Medicine 09/04/[address] [place] [address] documented as of this encounter
--- OUTSIDE RECORDS SUMMARY | 2022-03-08 08:41 | XMS_ITS | Encounter Summary ---
:1940 Author Organization [facility] Address [address] [place] [address] Care Team Providers Name Role Phone Fabian Arias MD Primary Care Provider Encounter Details Date Type Department Care Team Description 10/04/2021 [facility] Only [facility] O f Landon Zarate MD [address] [place] [address] [place], [place] [phone] (Wo rk) Social History Tobacco Use Types Packs/Day Years Used Date Smoking Tobacco: Smoker, Current Cigarettes Started: 07/01/1976 Status Unknown Sex Assigned at Date Recorded Not on file documented as of this encounter Plan of Treatment Not on filedocumented as of this encounter Procedures Procedure Name Priority Date/Time Associated Diagnosis Comme nts HD KINETICS Routine 10/04/2021 Results for thi s procedure are i n the results section . POST CHEMISTRY Routine 10/04/2021 Results for t his procedure are i n the results section . IMMUNO CHEMISTRY Routine 10/04/2021 Results for this procedure are i n the results section . HEMATOLOGY Routine 10/04/2021 Results for thi s procedure are i n the results section . CHEMISTRY Routine 10/04/2021 Results for thi s procedure are i n the results section . CHEMISTRY Routine 10/04/2021 Results for thi s procedure are i n the results section . SPECTRA [facility] RESULTS Routine 10/04/2021 Resul ts for this procedure are i n the results section . documented in this encounter Results Spectra [facility] Results (10/04/2021) athologist Signature PCR 53.91 [facility] eKt/V Gotch 1.86 [facility] eNPCR 1.18 [facility] eKt/V 1.87 [facility] ([place]) eKdrt/V 1.86 [facility] spKt/V 2.17 [facility] ([place] II) spKt/V Gotch 2.21 [facility] nPCR_HD 1.26 [facility] Specimen (Source) Anatomical Location Collection Method / Collectio n Time Received Time / Laterality Volume 10/04/2021 10/04/2021 Celia Ordering Provider LAB BLOOD ORDERABLES Performing Organization Address City/State/ZIP Code Phon e Number [facility] (ABNORMAL) HD KINETICS (10/04/2021) P athologist Signature % Urea 84 (H) 65 - 80 % APS SPECTRA Reduction [facility] Specimen (Source) Anatomical Collection Method Collection Time Re ceived Time Location / / Volume Laterality 10/04/2021 10/09/2021 12:2 9 PM CDT Narrative APS SPECTRA [facility] - 10/09/2021 Unless otherwise specified, test(s) performed at: [facility], [address] [place], [place] [id number] MANAGER COMPLETIONS: Carl Paula M.D. For any questions, please call customer service at FREQUENCY:MONTHLY Resulting Agency Comment Specimen source: Plasma Landon Calvert MD LAB BLOOD ORDERABLES Performing Organization Address City/[facility]/ZIP Code Phon e Number APS SPECTRA [facility] (ABNORMAL) HEMATOLOGY (10/04/2021) Analysis Performed At Patho logist Time Signature Hemoglobin 10.1 (L) 12.0 - [facility] 16.0 g/dL [facility] Hemoglobin x 3 30.3 (L) 36.0 - [facility] 48.0 % [facility] Specimen (Source) Anatomical Collection Method Collection Time Re ceived Time Location / / Volume Laterality 10/04/2021 10/09/2021 3:08 PM CDT Narrative [facility]PS [facility]PECTRA [facility] - 10/09/2021 Unless otherwise specified, test(s) performed at: [facility], [address] [place] [address] MANAGER COMPLETIONS: Carl Paula M.D. For any questions, please call customer service at FREQUENCY:MONTHLY Resulting Agency Comment Specimen source: Blood Landon Calvert MD LAB BLOOD ORDERABLES Performing Organization Address City/State/ZIP Code Phon e Number [facility] POST CHEMISTRY (10/04/2021) P athologist Signature BUN Post 10 6 - 19 APS SPECTRA Dialysis mg/dL [facility] Specimen (Source) Anatomical Collection Method Collection Time Re ceived Time Location / / Volume Laterality 10/04/2021 10/09/2021 12:2 9 PM CDT Narrative APS SPECTRA [facility] - 10/09/2021 Unless otherwise specified, test(s) performed at: [facility], [address] [place] [address] MANAGER COMPLETIONS: Carl Paula M.D. For any questions, please call customer service at FREQUENCY:MONTHLY Resulting Agency Comment Specimen source: Plasma Landon Calvert MD LAB BLOOD ORDERABLES Performing Organization Address City/State/ZIP Code Phon e Number [facility]PS [facility] IMMUNO CHEMISTRY (10/04/2021) athologist Signature Hepatitis B 18 mIU/mL APS SPECTRA Surface Ab [facility] Comment: The anti-HBs (Hepatitis B surface antibo dy) is greater than or equal to 10 mIU/mL and implies immunity. The kemar ent has either had an antibody response to HBV vaccination, received a transfusion, or has recovered from HBV infection. For post-vaccination antibody testing guidelines for the general public, refer to MMWR [facility] 2004/Vol.54 (No. 16); 1-23, and for healthcare workers, refer to MMWR June 19, 2013/Vol.62 (No. 10); 1-18. Reference Range: <10 mIU/mL ? Non-Immune >=10 mIU/mL ?Immune The magnitude of the measured result abo ve 10 mIU/mL is not indicative of the total amount of antibody present. Hep B Surface Ag Negative Negative APS SPECTRA [facility] Hep B Core Total Ab Negative Negative APS SPECTR A [facility] Comment: Hep B Core Ab, Total appears during the acute infection stage and remains reactive/positive throughout the recovery stage. The above test result was obtained using Siemens Convoaur XP chemiluminescent method. Results obtaine d with different assay methods or kits cannot be used interchangeably. Specimen (Source) Anatomical Collection Method Collection Time Re ceived Time Location / / Volume Laterality 10/04/2021 10/09/2021 11:4 4 AM CDT Resulting Agency Comment Specimen source: Serum Landon Calvert MD LAB BLOOD ORDERABLES Performing Organization Address City/State/ZIP Code Phon e Number APS SPECTRA [facility] (ABNORMAL) Spectrae Chemistry (10/04/2021) [facility] Method Time Signature Ferritin 39 10 - 291 APS [facility]RA ng/mL [facility] BUN 61 (H) 6 - 19 APS [facility] mg/dL [facility] Creatinine 8.07 (H) 0.60 - APS [facility] 1.30 mg/dL [facility] BUN/Creatinine 7.6 (L) 10.0 - [facility]PS [facility] Ratio 20.0 [facility] Sodium 138 136 - 145 [facility] mEq/L [facility] Potassium 5.1 3.5 - 5.1 [facility]PS [facility]RA mEq/L [facility] Chloride 101 96 - 108 A[facility]RA mEq/L [facility] Bicarbonate 13 (L) 22 - 29 APS SPECTRA (CO2) mEq/L [facility] Comment: Bicarbonate results less than 14 mEq/L a re sufficiently unusual that the test should be repeated prior to treatin g the patient. Calcium 9.6 8.4 - 10.2 mg/dL [facility]PS [facility] Corrected Calcium 9.8 8.4 - 10.2 mg/dL APS S PECTRA [facility] Comment: Corrected Calcium is not equivalent to m easured Ionized Calcium. Phosphorus 8.1 (H) 2.6 - 4.5 mg/dL [facility]PS SPECTRA [facility] Calcium Phosphorus Product 78 (H) 0 - 54 APS SPECTRA [facility] Calcium Phosporus Product, Cor 79 (H) 0 - 54 APS SPECTRA [facility] Alkaline Phosphatase 58 35 - 104 U/L APS SP ECTRA [facility] Total Protein 6.5 6.0 - 8.5 g/dL APS SPECTRA [facility] Albumin 3.8 3.5 - 5.2 g/dL [facility]PS [facility] Globulin, Total 2.7 2.0 - 4.0 g/dL APS SPECT RA [facility] A/G Ratio 1.4 1.0 - 2.0 APS SPECTRA [facility] Magnesium 2.3 1.6 - 2.6 mg/dL [facility] Iron 30 30 - 160 mcg/dL [facility] UIBC 244 155 - 355 mcg/dL APS SPECTRA [facility] TIBC 274 185 - 515 mcg/dL APS SPECTRA [facility] Iron Saturation (TSat) 11 (L) 20 - 55 % APS SPE CTRA [facility] Specimen (Source) Anatomical Collection Method Collection Time Re ceived Time Location / / Volume Laterality 10/04/2021 10/09/2021 11:4 4 AM CDT Narrative APS SPECTRA [facility] - 10/09/2021 Unless otherwise specified, test(s) performed at: [facility], [address] [place] [address] MANAGER COMPLETIONS: Carl Paula M.D. For any questions, please call customer service at FREQUENCY:MONTHLY Resulting Agency Comment Specimen source: Serum Landon Calvert MD LAB BLOOD ORDERABLES Performing Organization Address City/[facility] Code Phon e Number APS SPECTRA [facility] (ABNORMAL) Spectrae Chemistry (10/04/2021) P athologist Signature PTH 232 (H) 16 - 80 APS SPECTRA pg/mL [facility] Specimen (Source) Anatomical Collection Method Collection Time Re ceived Time Location / / Volume Laterality 10/04/2021 10/09/2021 10:1 0 AM CDT Narrative APS SPECTRA [facility] - 10/09/2021 Unless otherwise specified, test(s) performed at: [facility], [address] [place] [address] MANAGER COMPLETIONS: Carl Paula M.D. For any questions, please call customer service at FREQUENCY:MONTHLY Resulting Agency Comment Specimen source: Plasma Landon Calvert MD LAB BLOOD ORDERABLES Performing Organization Address City/State/ZIP Code Phon e Number APS SPECTRA [facility] documented in this encounter Visit Diagnoses Not on filedocumented in this encounter Care Teams Public Housing Interviewer Relationship Specialty Start Date End Date Fabian Arias MD PCP - General Family Medicine 09/04/[address] [place] [address] documented as of this encounter
--- OUTSIDE RECORDS SUMMARY | 2022-03-08 08:41 | XMS_ITS | Encounter Summary ---
:1940 Author Organization [facility] Address [address] [place] [address] Care Team Providers Name Role Phone Fabian Arias MD Primary Care Provider Encounter Details Date Type Department Care Team Description 05/17/2021 Orders Only [facility] O f Landon Zarate MD [address] [place] [address] [place], [place] [phone] (Wo rk) Social History Tobacco Use Types Packs/Day Years Used Date Smoking Tobacco: Never Assessed Sex Assigned at Date Recorded Not on file documented as of this encounter Plan of Treatment Not on filedocumented as of this encounter Procedures Procedure Name Priority Date/Time Associated Diagnosis Comme nts HEMATOLOGY Routine 05/17/2021 Results for thi s procedure are in the resu lts section. documented in this encounter Results (ABNORMAL) HEMATOLOGY (05/17/2021) Analysis Performed At Patho logist Time Signature Hemoglobin 9.2 (L) 12.0 - APS [facility]RA 16.0 g/dL [facility] Hemoglobin x 3 27.6 (L) 36.0 - APS SPECTRA 48.0 % [facility] Specimen (Source) Anatomical Collection Method Collection Time Re ceived Time Location / / Volume Laterality 05/17/2021 05/18/2021 11:5 1 AM CLEARING SUPERVISOR Narrative APS SPECTRA [facility] - 05/18/2021 Unless otherwise specified, test(s) performed at: [facility], [address] [place] [address] FAGOTING MACHINE OPERATOR: Carl Paula M.D. For any questions, please call customer service at FREQUENCY:OTHER Resulting Agency Comment Specimen source: Blood Landon Calvert MD LAB BLOOD ORDERABLES Performing Organization Address City/State/ZIP Code Phon e Number APS SPECTRA [facility] documented in this encounter Visit Diagnoses Not on filedocumented in this encounter Care Teams Vmware Consultant Relationship Specialty Start Date End Date Fabian Arias MD PCP - General Family Medicine 09/04/[address] [place] [address] documented as of this encounter
--- OUTSIDE RECORDS SUMMARY | 2022-03-08 08:41 | XMS_ITS | Encounter Summary ---
:1940 Author Organization [facility] Address [address] [place] [address] Care Team Providers Name Role Phone Fabian Arias MD Primary Care Provider Encounter Details Date Type Department Care Team Description 08/23/2021 Orders Only [facility] O f Landon Zarate MD [address] [place] [address] [place], [place] [phone] (Wo rk) Social History Tobacco Use Types Packs/Day Years Used Date Smoking Tobacco: Smoker, Current Cigarettes Started: 07/01/1976 Status Unknown Sex Assigned at Date Recorded Not on file documented as of this encounter Plan of Treatment Not on filedocumented as of this encounter Procedures Procedure Name Priority Date/Time Associated Diagnosis Comme nts HEMATOLOGY Routine 08/23/2021 Results for thi s procedure are in the resu lts section. documented in this encounter Results (ABNORMAL) HEMATOLOGY (08/23/2021) Analysis Performed At [facility]o [facility]ist Time Signature Hemoglobin 9.2 (L) 12.0 - APS [facility]RA 16.0 g/dL [facility] Hemoglobin x 3 27.6 (L) 36.0 - APS SPECTRA 48.0 % [facility] Specimen (Source) Anatomical Collection Method Collection Time Re ceived Time Location / / Volume Laterality 08/23/2021 08/24/2021 1:25 PM SOCIETY EDITOR Narrative APS SPECTRA [facility] - 08/24/2021 Unless otherwise specified, test(s) performed at: [facility], [address] [place] [id number] FULL STACK WEB DEVELOPER: Carl Paula, M.D. For any questions, please call customer service at FREQUENCY:OTHER Resulting Agency Comment Specimen source: Blood Landon Calvert MD LAB BLOOD ORDERABLES Performing Organization Address City/State/ZIP Code Phon e Number APS SPECTRA [facility] documented in this encounter Visit Diagnoses Not on filedocumented in this encounter Care Teams Dark Room Attendant Relationship Specialty Start Date End Date Fabian Arias MD PCP - General Family Medicine 09/04/[address] [place] [address] documented as of this encounter
--- OUTSIDE RECORDS SUMMARY | 2022-03-08 08:42 | XMS_ITS | Encounter Summary ---
:1940 Author Organization [facility] Address [address] [place] [address] Phone Care Team Providers Name Role Phone Fabian Arias MD Primary Care Provider Encounter Details Date Type Department Care Team Description 08/05/2020 Orders Only [facility] [address] [place] [address] Social History Tobacco Use Types Packs/Day Years Used Date Smoking Tobacco: Smoker, Current Cigarettes Started: 07/01/1976 Status Unknown Sex Assigned at Date Recorded Not on file documented as of this encounter Plan of Treatment Not on filedocumented as of this encounter Visit Diagnoses Not on filedocumented in this encounter Care Teams Igniter Capper Relationship Specialty Start Date End Date Fabian Arias MD PCP - General Family Medicine 09/04/[address] [place] [address] documented as of this encounter
--- OUTSIDE RECORDS SUMMARY | 2022-03-08 08:42 | XMS_ITS | Encounter Summary ---
:1940 Author Organization [facility] Address [address] [place] [address] Phone Care Team Providers Name Role Phone Fabian Arias MD Primary Care Provider Encounter Details Date Type Department Care Team Description 04/01/2021 Orders Only [facility] Eliud Duque MD [address] [place] [address] [place], [place] [phone] (Wo rk) Social History Tobacco Use Types Packs/Day Years Used Date Smoking Tobacco: Never Assessed Sex Assigned at Date Recorded Not on file documented as of this encounter Plan of Treatment Not on filedocumented as of this encounter Procedures Procedure Name Priority Date/Time Associated Diagnosis Comme nts HEMATOLOGY Routine 04/01/2021 Results for thi s procedure are in the resu lts section. documented in this encounter Results (ABNORMAL) HEMATOLOGY (04/01/2021) Analysis Performed At Patho logist Time Signature Hemoglobin 9.6 (L) 12.0 - APS SPECTRA 16.0 g/dL [facility] Hemoglobin x 3 28.8 (L) 36.0 - APS SPECTRA 48.0 % [facility] Specimen (Source) Anatomical Collection Method Collection Time Re ceived Time Location / / Volume Laterality 04/01/2021 04/04/2021 5:19 AM CDT Narrative APS SPECTRA [facility] - 04/04/2021 Unless otherwise specified, test(s) performed at: [facility], [address] [place] [address] Rd, [place], [place] [address] HOSPITAL AIDE: Vicente Flores M.D., Ph.D For any questions, please call customer service at FREQUENCY:OTHER Resulting Agency Comment Specimen source: Blood Eliud Duque MD LAB BLOOD ORDERABLES Performing Organization Address City/State/ZIP Code Phon e Number APS SPECTRA [facility] documented in this encounter Visit Diagnoses Not on filedocumented in this encounter Care Teams Brokerage Coordinator Relationship Specialty Start Date End Date Fabian Airas MD PCP - General Family Medicine 09/04/[address] [place] [address] documented as of this encounter
--- OUTSIDE RECORDS SUMMARY | 2022-03-08 08:42 | XMS_ITS | Encounter Summary ---
:1940 Author Organization [facility] Address [address] [place] [address] Care Team Providers Name Role Phone Fabian Arias MD Primary Care Provider Encounter Details Date Type Department Care Team Description 04/26/2021 Treatment [facility] Landon King MD [address] [place] [address] [place], [place] [phone] (Wo rk) Social History Tobacco Use Types Packs/Day Years Used Date Smoking Tobacco: Never Assessed Sex Assigned at Date Recorded Not on file documented as of this encounter Miscellaneous Notes External Note - Landon Calvert MD - 04/26/2021 11:25 AM CDT Date: Apr 26, 2021 Patient Name: Zamzam Garibay : 1940 Chart #: [id number] Sex: F Patient has transitioned out of the following type of facility within the past 30 days: Hospital. Discharging Facility: [facility] Patient caregiver is present? If yes, relationship of caregiver to the patient: Date of admission:04/17/2021 Reason for admission: Dyspnea Date of discharge:04/20/2021 Discharge Diagnosis: CHF Review of relevant procedures performed during admission (surgeries, cardiac, transfusions, etc): Challenged EDW on dialysis Medication List Medication Sig Start Date B [...] mouth once a day 04/12/2021 RenaPlex-D (vit b,j-lu-vwin-selen-vit d3-e) 800 mcg-12.5 mg-2,000 unit tablet Take 1 tablet by mouthonce a day trazodone 50 mg tablet Take 1 tablet by mouth every night as needed 04/12/2021 Allergy List Allergen Reaction Reaction Severity Onset Date Venofer Skin rash Discharge med list was reviewed and reconciled with the pre-admit med list. New in-center meds were considered (antibiotics, ONS, etc): No in-center meds initiated. Dialysis related therapy interruptions were considered (Micera,Venofer,ONS,etc): There were no dialysis related interruptions. Target Weight: The patient's post discharge target weight was decreased from their pre-admit target weight. Physical Exam: Lungs: Clear. Heart: RRR. Edema: None. Did the patient have tests ordered during admission that were not completed? No outstanding tests. If yes, please list: Was patient education specific to discharge diagnosis provided? Educational materials were provided. Did the patient's access plan change as a result of this admission? No change in access plan. Did the patient's advanced care plan change as a result of this admission? No changes in advanced care plan. Did the patient have any follow up appointments scheduled post discharge? Yes the patient has followup appts. If yes, what is the status of those appts? No concerns with adherence with follow up appts. Landon Calvert MD [ Signed And locked electronically On 04/26/2021 at 11:26:48 AM ] Transcribed: Landon Calvert ( 04/26/2021 ) Dialysis Note - Landon Calvert MD - 04/26/2021 11:07 AM CDT Date: Apr 26, 2021 Patient Name: Zamzam Garibay : 1940 Chart #: [id number] Sex: F This patient was personally seen for a basic visit as part of routine weekly dialysis care. A reviewof the dialysis treatment, blood pressure, estimated dry weight and recent lab values was made. These were discussed with the patient and staff as necessary. Treatment Data for 04/26/2021 started at:9:38 AM Dialyzer: 160NRe Optiflux Na: 137 mEq/L Bicarb: 35 mEq/L Dialysate: 3.0 K, 2.25 Ca, 1.0 Mg, 100 Dextrose (G3231) Dialysate/Machine Temp (prescribed): 37 C Dialysate/Machine Temp (actual): 37 C BFR (prescribed): 400 BFR (actual): 400 Prescribed time: 03:30 EDW: 41.5 kg Access Type: Active (In Use):CVCatheter-Tunneled/Chest Pre Dialysis Vitals (for 04/26/2021 9:35 AM ) Pre BP (sit): 127/61 Pre Wt: 44.3 kg Temp: 96.4 F Post Dialysis Vitals (for 04/24/2021 1:28 PM ) Post BP (sit): 133/78 Post Wt: 42.2 kg Current Dialysis Vitals (for 04/26/2021 10:03 AM ) BP (sit): 114/63 AP(-) / RESEARCH NURSE: 192/142 Pulse: 66 Chairside data as of 04/26/2021 10:03 AM Last 3 Treatments 04/24/2021 04/21/2021 04/19/2021 (Absent) EDW (kg) 41.5 42.5 Weight Pre (kg) 43.9 41.7 Weight Post (kg) 42.2 41.9 Dialytic Weight Loss (kg) -1.7 0.2 EDW Deviation (kg) 0.7 -0.6 BP Sit Pre 129/74 126/66 BP Sit Post 133/78 143/73 UF Rate (mL/kg/hr) 11 -2 Prescribed BFR 400 400 Average Delivered BFR 400 400 Prescribed Treatment Time 03:30 03:30 Actual Treatment Time 03:34 03:01 Treatment Medication Orders Medication Sig Start Date End Date Heparin Sodium (Porcine) 1,000 Units/mL Catheter Lock Arterial 2000 units Arterial Red Port Every Treatment 04/05/2021 04/04/2022 Heparin Sodium (Porcine) 1,000 Units/mL Catheter Lock Venous 2000 units Venous Blue Port Every Treatment 04/05/2021 04/04/2022 Heparin Sodium (Porcine) 1,000 Units/mL Systemic 2000 units IVP Every Treatment 04/05/2021 04/04/2022 Vitamin D (Calcitriol) Oral 0.5 mcg ORAL Every Treatment 04/10/2021 04/09/2022 CASE FILLER: Landon Calvert MD LOCATION: [phone] SCHEDULE: -- 2nd Shift ACCESS: EDW: kg. DIALYZER: HD DURATION: NEEDLE SIZE: ANTICOAG: BATH: QB: ml/min QD: ml/min Subjective 04/26/21: She was hospitalized briefly at [facility] for dyspnea, no pneumonia but rather related to CHF. She saw cardiology in follow-up in clinic, lisinopril and metoprolol and lasix with UF on HD to dry weight recommended. She is not interested in home dialysis, discussed today. 04/12/21: Patient new to me. 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 Cardiovascular Regular rate. Regular rhythm. Edema - No [...] mouth once a day 04/12/2021 RenaPlex-D (vit b,m-la-sesm-selen-vit d3-e) 800 mcg-12.5 mg-2,000 unit tablet Take 1 tablet by mouthonce a day trazodone 50 mg tablet Take 1 tablet by mouth every night as needed 04/12/2021 Allergy List Allergen Reaction Reaction Severity Onset Date Venofer Skin rash Medications reviewed and no changes were made. HEMOGLOBIN (G/DL) IN BLOOD g/dL 10.3 (04/12/21) IPTH pg/mL 694 (04/05/21) Vascular Access Assessment: Type of access: Catheterand JOHN AVF Will have her complete ultrasound of AVF to assess depth, size, and tributary. May need ligation/elevation. Impression and Plan Stable dialysis Encouraged fluid restriction, keep at dry weight No med changes U/s of access will be arranged in town here Landon Calvert MD [ Signed And locked electronically On 04/26/2021 at 11:10:08 AM ] Transcribed: Landon Calvert ( 04/26/2021 ) documented in this encounter Plan of Treatment Not on filedocumented as of this encounter Visit Diagnoses Not on filedocumented in this encounter Care Teams Potato Grader Relationship Specialty Start Date End Date Fabian Arias MD PCP - General Family Medicine 09/04/[address] [place] [address] documented as of this encounter
--- OUTSIDE RECORDS SUMMARY | 2022-03-08 08:42 | XMS_ITS | Encounter Summary ---
:1940 Author Organization [facility] Address [address] [place] [address] Phone Care Team Providers Name Role Phone Fabian Arias MD Primary Care Provider Encounter Details Date Type Department Care Team Description 03/09/2021 Orders Only [facility] Eliud Duque MD [address] [place] [address] [place], [place] [phone] (Wo rk) Social History Tobacco Use Types Packs/Day Years Used Date Smoking Tobacco: Never Assessed Sex Assigned at Date Recorded Not on file documented as of this encounter Plan of Treatment Not on filedocumented as of this encounter Procedures Procedure Name Priority Date/Time Associated Diagnosis Comme nts TRACE ELEMENTS Routine 03/09/2021 Results for t his procedure are in the resu lts section. documented in this encounter Results TRACE ELEMENTS (03/09/2021) P athologist Signature Aluminum <5 0 - 10 APS SPECTRA mcg/L [facility] Comment: This test was developed and its performa nce characteristics determined by [facility]. It has not been cleared or approved by the FDA. The laboratory is regulated under CLIA a s qualified to perform high complexity testing. This test is used fo r clinical purposes. It should not be regarded as investigational or fo r research. Specimen (Source) Anatomical Collection Method Collection Time Re ceived Time Location / / Volume Laterality 03/09/2021 03/15/2021 5:02 PM CDT Narrative APS SPECTRA [facility] - 03/20/2021 Unless otherwise specified, test(s) performed at: [facility], [address] [place], [place] [address], [place] [id number] HEALTH POLICY NURSE: Vicente Flores M.D., Ph.D For any questions, please call customer service at FREQUENCY:MONTHLY Resulting Agency Comment Specimen source: Serum Eliud Duque MD LAB BLOOD ORDERABLES Performing Organization Address City/State/ZIP Code Phon e Number APS SPECTRA [facility] documented in this encounter Visit Diagnoses Not on filedocumented in this encounter Care Teams Service Delivery Director Relationship Specialty Start Date End Date Fabian Arias MD PCP - General Family Medicine 09/04/[address] [place] [address] documented as of this encounter
--- OUTSIDE RECORDS SUMMARY | 2022-03-08 08:42 | XMS_ITS | Encounter Summary ---
:1940 Author Organization [facility] Address [address] [place] [address] Care Team Providers Name Role Phone Fabian Arias MD Primary Care Provider Encounter Details Date Type Department Care Team Description 05/03/2021 Orders Only [facility] Landon Zarate MD [phone] [place] [address] [place], [place] [phone] (Wo rk) Social History Tobacco Use Types Packs/Day Years Used Date Smoking Tobacco: Never Assessed Sex Assigned at Date Recorded Not on file documented as of this encounter Plan of Treatment Not on filedocumented as of this encounter Procedures Procedure Name Priority Date/Time Associated Diagnosis Comme nts HD KINETICS Routine 05/03/2021 Results for thi s procedure are i n the results section . POST CHEMISTRY Routine 05/03/2021 Results for t his procedure are i n the results section . IMMUNO CHEMISTRY Routine 05/03/2021 Results for this procedure are i n the results section . HEMATOLOGY Routine 05/03/2021 Results for thi s procedure are i n the results section . CHEMISTRY Routine 05/03/2021 Results for thi s procedure are i n the results section . CHEMISTRY Routine 05/03/2021 Results for thi s procedure are i n the results section . SPECTRA [facility] RESULTS Routine 05/03/2021 Resul ts for this procedure are i n the results section . documented in this encounter Results Spectra [facility] Results (05/03/2021) athologist Signature eNPCR 1.13 [facility] eKt/V 1.82 [facility] ([place]) spKt/V 2.12 [facility] ([place] II) spKt/V Gotch 2.10 [facility] eKt/V Gotch 1.78 [facility] nPCR_HD 1.32 [facility] PCR 58.30 [facility] eKdrt/V 1.78 [facility] Specimen (Source) Anatomical Location Collection Method / Collectio n Time Received Time / Laterality Volume 05/03/2021 05/03/2021 [facility] Ordering Provider LAB BLOOD ORDERABLES Performing Organization Address City/State/ZIP Code Phon e Number [facility] (ABNORMAL) HD KINETICS (05/03/2021) P athologist Signature % Urea 84 (H) 65 - 80 % APS SPECTRA Reduction [facility] Specimen (Source) Anatomical Collection Method Collection Time Re ceived Time Location / / Volume Laterality 05/03/2021 05/04/2021 9:00 PM CDT Resulting Agency Comment Specimen source: Serum Landon Calvert MD LAB BLOOD ORDERABLES Performing Organization Address City/[facility] Phon e Number APS SPECTRA [facility] POST CHEMISTRY (05/03/2021) P athologist Signature BUN Post 10 6 - 19 APS SPECTRA Dialysis mg/dL [facility] Specimen (Source) Anatomical Collection Method Collection Time Re ceived Time Location / / Volume Laterality 05/03/2021 05/04/2021 12:3 5 PM CDT Narrative APS SPECTRA [facility] - 05/05/2021 Unless otherwise specified, test(s) performed at: [facility], [address] [place] [address] VEST PRESSER: Carl Paula M.D. For any questions, please call customer service at FREQUENCY:MONTHLY Resulting Agency Comment Specimen source: Plasma Landon Calvert MD LAB BLOOD ORDERABLES Performing Organization Address City/[facility]/ZIP Code Phon e Number APS SPECTRA [facility] (ABNORMAL) Spectrae Chemistry (05/03/2021) Patholo gist Method Time Signature BUN 61 (H) 6 - 19 APS SPECTRA mg/dL [facility] Creatinine 5.34 (H) 0.60 - APS SPECTRA 1.30 mg/dL [facility] BUN/Creatinine 11.4 10.0 - APS SPECTRA Ratio 20.0 [facility] Sodium 137 136 - 145 APS SPECTRA mEq/L [facility] Potassium 4.2 3.5 - 5.1 APS SPECTRA mEq/L [facility] Chloride 99 96 - 108 APS SPECTRA mEq/L [facility] Bicarbonate 27 22 - 29 APS SPECTRA (CO2) mEq/L [facility] Calcium 9.1 8.4 - 10.2 APS SPECTRA mg/dL [facility] Corrected 9.3 8.4 - 10.2 APS SPECTRA Calcium mg/dL [facility] Comment: Corrected Calcium is not equivalent to m easured Ionized Calcium. Phosphorus 6.0 (H) 2.6 - 4.5 mg/dL APS SPECTRA [facility] Calcium Phosphorus Product 55 (H) 0 - 54 APS SPECTRA [facility] Calcium Phosporus Product, Cor 56 (H) 0 - 54 APS SPECTRA [facility] Total Protein 6.7 6.0 - 8.5 g/dL APS SPECTRA [facility] Albumin 3.8 3.5 - 5.2 g/dL APS SPECTRA [facility] Globulin, Total 2.9 2.0 - 4.0 g/dL APS SPECT RA [facility] A/G Ratio 1.3 1.0 - 2.0 APS SPECTRA [facility] Iron 79 30 - 160 mcg/dL APS SPECTRA [facility] UIBC 187 155 - 355 mcg/dL APS SPECTRA K [facility] TIBC 266 185 - 515 mcg/dL APS SPECTRA K [facility] Iron Saturation (TSat) 30 20 - 55 % APS SPE CTRA [facility] Specimen (Source) Anatomical Collection Method Collection Time Re ceived Time Location / / Volume Laterality 05/03/2021 05/04/2021 9:00 PM CDT Narrative APS SPECTRA [facility] - 05/05/2021 Unless otherwise specified, test(s) performed at: [facility], [address] [place] [address] VEST PRESSER: Carl Paula M.D. For any questions, please call customer service at FREQUENCY:MONTHLY Resulting Agency Comment Specimen source: Serum Landon Calvert MD LAB BLOOD ORDERABLES Performing Organization Address City/State/ZIP Code Phon e Number APS SPECTRA [facility] IMMUNO CHEMISTRY (05/03/2021) P athologist Signature Hep B Surface Negative Negative APS SPECTRA Ag [facility] Hepatitis B 228 mIU/mL APS SPECTRA Surface Ab [facility] Comment: [...] ceived Time Location / / Volume Laterality 05/03/2021 05/04/2021 9:00 PM CDT Narrative APS SPECTRA [facility] - 05/05/2021 Unless otherwise specified, test(s) performed at: [facility], [address] [place] [address] VEST PRESSER: Carl Paula M.D. For any questions, please call customer service at FREQUENCY:MONTHLY Resulting Agency Comment Specimen source: Serum Landon Calvert MD LAB BLOOD ORDERABLES Performing Organization Address City/State/ZIP Code Phon e Number APS SPECTRA [facility] (ABNORMAL) HEMATOLOGY (05/03/2021) Analysis Performed At Patho logist Time Signature WBC 6.52 4.80 - APS SPECTRA 10.80 [facility] 1000/mcL RBC 3.63 (L) 4.20 - APS SPECTRA 5.40 [facility] mill/mcL Hemoglobin 10.4 (L) 12.0 - APS SPECTRA 16.0 g/dL [facility] Hemoglobin x 3 31.2 (L) 36.0 - APS SPECTRA 48.0 % [facility] Hematocrit 32.2 (L) 37.0 - APS SPECTRA 47.0 % [facility] MCV 89 80 - 100 APS SPECTRA fl [facility] MCH 28.6 27.0 - APS SPECTRA 31.0 pg [facility] MCHC 32.2 30.0 - APS SPECTRA 36.0 g/dL [facility] RDW 19.3 (H) 11.5 - APS SPECTRA 14.5 % [facility] Platelets 236 130 - 400 APS SPECTRA 1000/mcL [facility] Specimen (Source) Anatomical Collection Method Collection Time Re ceived Time Location / / Volume Laterality 05/03/2021 05/04/2021 11:5 2 AM CDT Narrative APS SPECTRA [facility] - 05/04/2021 Unless otherwise specified, test(s) performed at: [facility], [address] [place] [address] VEST PRESSER: Carl Paula M.D. For any questions, please call customer service at FREQUENCY:MONTHLY Resulting Agency Comment Specimen source: Blood Landon Calvert MD LAB BLOOD ORDERABLES Performing Organization Address City/[facility] Phon e Number APS SPECTRA [facility] (ABNORMAL) Spectrae Chemistry (05/03/2021) P athologist Signature PTH 505 (H) 16 - 80 APS SPECTRA pg/mL [facility] Specimen (Source) Anatomical Collection Method Collection Time Re ceived Time Location / / Volume Laterality 05/03/2021 05/04/2021 9:52 AM CDT Narrative APS SPECTRA [facility] - 05/04/2021 Unless otherwise specified, test(s) performed at: [facility], [address] [place] [address] VEST PRESSER: Carl Paula M.D. For any questions, please call customer service at FREQUENCY:MONTHLY Resulting Agency Comment Specimen source: Plasma Landon Calvert MD LAB BLOOD ORDERABLES Performing Organization Address City/State/ZIP [facility] Phon e Number APS SPECTRA [facility] documented in this encounter Visit Diagnoses Not on filedocumented in this encounter Care Teams C Architect Relationship Specialty Start Date End Date Fabian Arias MD PCP - General Family Medicine 09/04/[address] [place] [address] documented as of this encounter
--- OUTSIDE RECORDS SUMMARY | 2022-03-08 08:42 | XMS_ITS | Encounter Summary ---
:1940 Author Organization [facility] Address [address] [place] [address] Care Team Providers Name Role Phone Fabian Arias MD Primary Care Provider Encounter Details Date Type Department Care Team Description 05/10/2021 Orders Only [facility] f Landon Zarate MD [address] [place] [address] [place], [place] [phone] (Wo rk) Social History Tobacco Use Types Packs/Day Years Used Date Smoking Tobacco: Never Assessed Sex Assigned at Date Recorded Not on file documented as of this encounter Plan of Treatment Not on filedocumented as of this encounter Procedures Procedure Name Priority Date/Time Associated Diagnosis Comme nts HEMATOLOGY Routine 05/10/2021 Results for thi s procedure are in the resu lts section. CHEMISTRY Routine 05/10/2021 Results for thi s procedure are in the resu lts section. documented in this encounter Results (ABNORMAL) HEMATOLOGY (05/10/2021) Analysis Performed At Patho logist Time Signature Hemoglobin 9.8 (L) 12.0 - APS SPECTRA 16.0 g/dL [facility] Hemoglobin x 3 29.4 (L) 36.0 - APS SPECTRA 48.0 % [facility] Specimen (Source) Anatomical Collection Method Collection Time Re ceived Time Location / / Volume Laterality 05/10/2021 05/11/2021 9:50 PM ORACLE TECHNICAL DEVELOPER Narrative APS SPECTRA [facility] - 05/12/2021 Unless otherwise specified, test(s) performed at: [facility], [address] [place] [id number] SHUTDOWN COORDINATOR: Carl Paula M.D. For any questions, please call customer service at FREQUENCY:OTHER Resulting Agency Comment Specimen source: Blood Landon Calvert MD LAB BLOOD ORDERABLES Performing Organization Address City/[facility] Phon e Number APS SPECTRA [facility] Spectrae Chemistry (05/10/2021) P athologist Signature Ferritin 250 10 - 291 APS SPECTRA ng/mL [facility] Specimen (Source) Anatomical Collection Method Collection Time Re ceived Time Location / / Volume Laterality 05/10/2021 05/11/2021 11:5 5 PM ORACLE TECHNICAL DEVELOPER Narrative APS SPECTRA [facility] - 05/12/2021 Unless otherwise specified, test(s) performed at: [facility], [address] [place] [id number] SHUTDOWN COORDINATOR: Carl Paula M.D. For any questions, please call customer service at FREQUENCY:OTHER Resulting Agency Comment Specimen source: Serum Landon Calvert MD LAB BLOOD ORDERABLES Performing Organization Address City/[facility] Phon e Number APS SPECTRA [facility] documented in this encounter Visit Diagnoses Not on filedocumented in this encounter Care Teams Aeronautical Engineering Technologist Relationship Specialty Start Date End Date Fabian Arias MD PCP - General Family Medicine 09/04/[address] [place] [address] documented as of this encounter
--- OUTSIDE RECORDS SUMMARY | 2022-03-08 08:42 | XMS_ITS | Encounter Summary ---
:1940 Author Organization [facility] Address [address] [place] [address] Phone Care Team Providers Name Role Phone Fabian Arias MD Primary Care Provider Reason for Visit Consultation (Routine) - Closed Specialty Diagnoses / Procedures Referred By Contact Refer red To Contact Nephrology Diagnoses Chronic kidney disease, Stage V (HCC) Fabian Arias MD Kennedy, Shane W, MD [address] [place] [phone] Referral ID Status Reason Start Date Expiration Date Visits V isits Requested Authorized [id number] Closed Consult and 07/29/2020 11/25/2020 4 4 Treat Encounter Details Date Type Department Care Team Description 09/05/2020 Office Visit [facility] Robert Newell Stage 5 chron ic kidney disease (HCC) (Primary Dx); Consultants MD Dinesh Chronic kidney disease, Stage V (HCC); [address] Essential (primary) hypertension; [address] [place], [place] Anemia in chronic kidney dis ease; [place] [address] Secondary hyperparathyroidism of renal o rigin ([facility]) [phone] Social History Tobacco Use Types Packs/Day Years Used Date Smoking Tobacco: Smoker, Current Cigarettes Started: 07/01/1976 Status Unknown Sex Assigned at Date Recorded Not on file documented as of this encounter Last Filed Vital Signs Vital Sign Reading Time Taken Comments Blood Pressure 130/80 09/05/2020 1:08 PM SQUARING SHEAR OPERATOR Pulse 87 09/05/2020 1:08 PM SQUARING SHEAR OPERATOR Temperature - - Respiratory Rate - - Oxygen Saturation 98% 09/05/2020 1:08 PM SQUARING SHEAR OPERATOR Inhaled Oxygen Concentration - - Weight 48.5 kg (107 lb) 09/05/2020 1:08 PM SQUARING SHEAR OPERATOR Height 160 cm (5' 3) 09/05/2020 1:08 PM SQUARING SHEAR OPERATOR Body Mass Index 18.95 09/05/2020 1:08 PM SQUARING SHEAR OPERATOR documented in this encounter Progress Notes Robert Newell MD - 09/05/2020 1:15 PM CST Images from the original note were not included. [facility] [address] [place] [address] Office Visit Patient Name: Cindi Garibay, Female Date of : 1940, 79 y.o. Medical Record: [id number] Date: 09/05/2020 Ref Provider: Fabian Arias MD PCP: FABIAN ARIAS MD (General) Reason for Visit: History of Present Illness Cindi Garibay is a 79 y.o. female with a history of hypertension and chronic renal failure who was recently seen by me at [facility] with acute on chronic renal failure and malignant hypertension. Echo revealed: Severe left ventricular hypertrophy. Moderately decreased left ventricular systolic function. Left ventricular ejection fraction is estimated at 40%. Moderate global left ventricular hypokinesis. Grade I/IV diastolic dysfunction (abnormal relaxation filling pattern), normal to mildly elevated filling pressures. Normal right ventricular size and systolic function. Mild pulmonary hypertension, RVSP 45 mmHg. Moderate mitral valve regurgitation. Renal sonogram (09/2016) showed 12.2 & 10.7 cm kidneys b/l with diffuse b/l increased echogenecity. Serologies w MONICA, C3, C4, Hep C ab was unremarkable (09/2016) She was diuresed and medications adjusted. Dr. Perla of cardiology saw her there and planned electiveworkup for ischemia. She has not followed up with IR for dialysis access placement. Labs prior to this visit demonstrate a creatinine of 5.23, Hg 9.9, K 4.9. She declines referral for access placement this time and in factis more interested in getting her COVID-19 vaccination and restarting hormone replacement therapy due to hot flashes. She denies any shortness of breath, chest pain, nausea or vomiting The following portions of the patient's chart were reviewed in this encounter and updated as appropriate: Allergies Meds Problems Med Hx Surg Hx Fam Hx Medication List Current Outpatient Medications Medication Sig Dispense Refill ??? furosemide (LASIX) 80 MG tablet Take 1 tablet by mouth 2 (two) times a day ??? hydrALAZINE (APRESOLINE) 50 MG tablet Take 1 tablet by mouth 3 (three) times a day ??? sodium bicarbonate 650 MG tablet Take 1 tablet by mouth 3 times a day ??? Vitamin D, Cholecalciferol, 50 MCG (2000 UT) capsule Take 1 tablet by mouth 1 (one) time each day No current facility-administered medications for this visit. Allergy List Allergies Allergen Reactions ??? Carvedilol Other (see comments) Review of Systems Constitutional: no fever, weight gain, weight loss, fatigue, chills or weakness HEENT: no new impaired vision, hearing loss, ear pain, sinus problems, sore throat, nose bleeds, headache or vertigo Cariovasular: no chest pain, palpitations, orthopnea or edema Respiratory: no SOB, pain with breathing, cough, wheezing, blood in sputum or night sweats Gastrointestinal: no abdominal pain, nausea, diarrhea, , vomiting, constipation, anorexia, trouble swallowing Genitouriary: no urinary frequency, urgency, dysuria, nocturia, burning, pain, blood in urine, hesitancy, foamy urine or incontinence Musculoskeletal: negative except--- Skin: negative for rash, itching, scaling, dryness or color change Neurological: negative for Numbness, tremors, seizures, tingling or fainting Psychiatric: negative for depression, insomnia or anxiety Endocrine: negative for heat intolerance, cold intolerance, excessive thirst or excessive urination Hematology: negative for bleeding gums or easy bruising Physical Exam Vitals: 09/05/20 1308 BP: 130/80 Pulse: 87 SpO2: 98% Weight: 107 lb (48.5 kg) Height: 5' 3 (1.6 m) Body mass index is 18.95 kg/m??. Gen: Awake, alert, and oriented. Well nourished HEENT: oral mucous Membranes are moist. Neck: Supple, no jugular venous distention Heart: Regular Rate and Rhythm, S1, S2. No murmurs, No edema Lungs: Clear to auscultation bilaterally with good respiratory effort Abdomen: Soft, non-tender, non-distended, +BS Genitourinary: no costoverteberal tenderness Extremities: moves all extremities well, all extremities are atraumatic Skin: No visible rashes, Dry Neuro: grossly intact, Normal speech Psych: Alert and oriented to person, place, time, situation with a non-depressed mood LABS: Chemistry Lab Units 05/12/20112912/21/19 0910/12/19 0934 CREATININE mg/dL 5.48* 3.95* 5.06* BUN mg/dL 62* 35* 86* POTASSIUM mmol/L 5.1 5.1 4.4 SODIUM mmol/L 141 140 138 CO2 mmol/L 15* 18* 18* CHLORIDE mmol/L 108* 107* 95* GLUCOSE mg/dL 86 93 227* CALCIUM mg/dL 9.2 9.1 9.5 PHOSPHORUS mg/dL 5.6* 4.1 9.4* ALBUMIN g/dL 4.5 4.3 4.2 [facility] Lab Units 05/12/20 11312/21/19 0920 10/12/19 0934 EGFRNAFR mL/min/1.73 7* 10* 8* CBC Lab Units 05/12/20112912/21/19 0920 HEMATOCRIT % 25.1* 34.6 HEMOGLOBIN g/dL 8.5* 11.1 WBC AUTO x10E3/uL 6.0 4.7 PLATELETS AUTO x10E3/uL 264 315 Bone Mineral Lab Units 05/12/20112912/21/19 0910/12/19 0934 CALCIUM mg/dL 9.2 9.1 9.5 PHOSPHORUS mg/dL 5.6* 4.1 9.4* [facility] Lab Units 05/12/200 12/21/19 0920 PTH pg/mL 204* 135* Urine Studies: No lab exists for component: UASPEGRAVIT, PROURRANDR, LEUKOUS, LABCAST [facility] Lab Units 05/12/200 12/21/19 0920 CREATININE (MG/DL) IN URINE mg/dL 50.5 103.1 PROT/CREAT RATIO UR mg/g creat 2,182* 1,446* Available Imaging results reviewed. Assessment & Plan 1. Stage 5 chronic kidney disease (HCC) 2. Chronic kidney disease, Stage V (HCC) 3. Essential (primary) hypertension 4. Anemia in chronic kidney disease 5. 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 I discussed the possibility of dialysis and various dialysis modalities. She is quite familiar with dialysis via her family. In center dialysis is her modality of choice when the time arrives. Since she does not have uremic symptoms, I will wait on initiating dialysis. I have again suggested Dr. Mook Rico for minimally invasive hemodialysis accessplacement, but she declines. I asked her to take Lasix as needed. Volume status appears excellent currently. I continue sodium bicarbonate 1300 mg twice daily to tid for metabolic acidosis. Blood pressure well controlled today. No orders of the defined types were placed in this encounter. No follow-ups on file. Thank you for allowing me to assist in this patient's care. Please do not hesitate to call me for any questions or changes. Robert Newell MD [facility] [address] [place] [address] documented in this encounter Plan of Treatment Scheduled Orders Name Type Priority Associated Diagnoses Order S chedule CBC and Differential Lab Routine Chronic kidney disea se, Stage Expected: V (HCC) 12/04/2020 Stage 5 chronic kidney disea se (Approximate), (HCC) Expires: Essential (primary) 10/07/19 22 hypertension Anemia in chronic kidney disease Secondary hyperparathyroidis m of renal origin (HCC) Renal Function Panel Lab Routine Chronic kidney disea se, Stage Expected: V (HCC) 12/04/2020 Stage 5 chronic kidney disea se (Approximate), (HCC) Expires: Essential (primary) 10/07/19 22 hypertension Anemia in chronic kidney disease Secondary hyperparathyroidis m of renal origin (HCC) PTH, Intact Lab Routine Chronic kidney disease, Stag e Expected: V (HCC) 12/04/2020 Stage 5 chronic kidney disea se (Approximate), (HCC) Expires: Essential (primary) 10/07/19 22 hypertension Anemia in chronic kidney disease Secondary hyperparathyroidis m of renal origin (HCC) Vitamin D 25 Hydroxy Lab Routine Chronic kidney disea se, Stage Expected: V ([facility]) 12/04/2020 Stage 5 chronic kidney disea se (Approximate), (HCC) Expires: Essential (primary) 10/07/19 22 hypertension Anemia in chronic kidney disease Secondary hyperparathyroidis m of renal origin (HCC) Protein, Total, Random Lab Routine Chronic kidney dis ease, Stage Expected: Urine w/Creatinine V ([facility]) 12/04/2020 (Protein/Creat Ratio) Stage 5 chronic kid martin disease (Approximate), (HCC) Expires: Essential (primary) 10/07/19 22 hypertension Anemia in chronic kidney disease Secondary hyperparathyroidis m of renal origin (HCC) Urinalysis with Lab Routine Chronic kidney disease, S tage Expected: microscopic V ([facility]) 12/04/2020 Stage 5 chronic kidney disea se (Approximate), (HCC) Expires: Essential (primary) 10/07/19 22 hypertension Anemia in chronic kidney disease Secondary hyperparathyroidis m of renal origin ([facility]) Uric Acid Lab Routine Chronic kidney disease, Stag e Expected: V ([facility]) 12/04/2020 Stage 5 chronic kidney disea se (Approximate), (HCC) Expires: Essential (primary) 10/07/19 22 hypertension Anemia in chronic kidney disease Secondary hyperparathyroidis m of renal origin (HCC) documented as of this encounter Visit Diagnoses Diagnosis Stage 5 chronic kidney disease (HCC) - P rimary Chronic kidney disease, Stage V (HCC) Chronic kidney disease, Stage V Essential (primary) hypertension Anemia in chronic kidney disease Secondary hyperparathyroidism of renal o rigin (HCC) Secondary hyperparathyroidism of renal o rigin documented in this encounter Care Teams Fixed Route Operator Relationship Specialty Start Date End Date Fabian Arias MD PCP - General Family Medicine 09/04/[address] [place] [address] documented as of this encounter
--- OUTSIDE RECORDS SUMMARY | 2022-03-08 08:42 | XMS_ITS | Encounter Summary ---
:1940 Author Organization [facility] Address [address] [place] [address] Phone Care Team Providers Name Role Phone Fabian Arias MD Primary Care Provider Encounter Details Date Type Department Care Team Description 03/28/2021 Orders Only [facility] Eliud Duque MD [address] [place] [address] [place], [place] [phone] (Wo rk) Social History Tobacco Use Types Packs/Day Years Used Date Smoking Tobacco: Never Assessed Sex Assigned at Date Recorded Not on file documented as of this encounter Plan of Treatment Not on filedocumented as of this encounter Procedures Procedure Name Priority Date/Time Associated Diagnosis Comme nts CHEMISTRY Routine 03/28/2021 Results for thi s procedure are in the resu lts section. documented in this encounter Results (ABNORMAL) Spectrae Chemistry (03/28/2021) P athologist Signature Calcium 8.4 (L) 8.7 - 10.4 APS SPECTRA mg/dL [facility] Comment: Please note change in reference range. Specimen (Source) Anatomical Collection Method Collection Time Re ceived Time Location / / Volume Laterality 03/28/2021 03/29/2021 4:43 AM CDT Narrative APS SPECTRA [facility] - 03/29/2021 Unless otherwise specified, test(s) performed at: [facility], [address] [place] [address], [place], [place] [address] SIGN LANGUAGE TRANSLATOR: Vicente Flores M.D., Ph.D For any questions, please call customer service at FREQUENCY:OTHER Resulting Agency Comment Specimen source: Serum Eliud Duque MD LAB BLOOD ORDERABLES Performing Organization Address City/State/ZIP Code Phon e Number APS SPECTRA [facility] documented in this encounter Visit Diagnoses Not on filedocumented in this encounter Care Teams Border Inspector Relationship Specialty Start Date End Date Fabian Arias MD PCP - General Family Medicine 09/04/[address] [place] [address] documented as of this encounter
--- OUTSIDE RECORDS SUMMARY | 2022-03-08 08:42 | XMS_ITS | Encounter Summary ---
:1940 Author Organization [facility] Address [address] [place] [address] Phone Care Team Providers Name Role Phone Fabian Arias MD Primary Care Provider Encounter Details Date Type Department Care Team Description 03/16/2021 Treatment [facility] Yomi Dalal APN [address] [place] [address] [place], [place] [phone] (Wo rk) Social History Tobacco Use Types Packs/Day Years Used Date Smoking Tobacco: Smoker, Current Cigarettes Started: 07/01/1976 Status Unknown Sex Assigned at Date Recorded Not on file documented as of this encounter Miscellaneous Notes Dialysis Note - Yomi Dalal APN - 03/16/2021 11:42 AM CDT Patient Name: Zamzam Garibay : 1940 Chart #: [id number] Date: Mar 16, 2021 The patient was seen on dialysis rounds at 11:42 AM. A review of the dialysis treatment, blood pressure, estimated dry weight and recent lab values was made. These were discussed with the patient and dialysis staff. AUTOMATIC TYPEWRITER INSPECTOR: LOCATION: SCHEDULE: Vascular Access Surveillance: PermCath Peripheral Arterial Disease Screening New to HD center: New sx: no issues today. Wants an earlier treatment time. Seen on TTS2. Labs: pending Plan: FU on labs. Yomi Dalal NP [ Signed And locked electronically On 03/16/2021 at 11:44:03 AM ] Transcribed: Yomi Dalal ( 03/16/2021 ) documented in this encounter Plan of Treatment Not on filedocumented as of this encounter Visit Diagnoses Not on filedocumented in this encounter Care Teams Vacuum Tester Cans Relationship Specialty Start Date End Date Fabian Arias MD PCP - General Family Medicine 09/04/[address] [place] [address] documented as of this encounter
--- OUTSIDE RECORDS SUMMARY | 2022-03-08 08:42 | XMS_ITS | Encounter Summary ---
:1940 Author Organization [facility] Address [address] [place] [address] Phone Care Team Providers Name Role Phone Fabian Arias MD Primary Care Provider Encounter Details Date Type Department Care Team Description 03/09/2021 Treatment [facility] Robert Newell MD [address] [place] [address] [place], [place] [phone] (Wo rk) Social History Tobacco Use Types Packs/Day Years Used Date Smoking Tobacco: Smoker, Current Cigarettes Started: 07/01/1976 Status Unknown Sex Assigned at Date Recorded Not on file documented as of this encounter Plan of Treatment Not on filedocumented as of this encounter Visit Diagnoses Not on filedocumented in this encounter Care Teams Lithoduplicator Operator Relationship Specialty Start Date End Date Fabian Arias MD PCP - General Family Medicine 09/04/[address] [place] [address] documented as of this encounter
--- OUTSIDE RECORDS SUMMARY | 2022-03-08 08:42 | XMS_ITS | Encounter Summary ---
:1940 Author Organization [facility] Address [address] [place] [address] Phone Care Team Providers Name Role Phone Fabian Arias MD Primary Care Provider Encounter Details Date Type Department Care Team Description 01/06/2021 Documentation Only [facility] Robert Newell, [address] [place] [phone] (Wo rk) Social History Tobacco Use Types Packs/Day Years Used Date Smoking Tobacco: Smoker, Current Cigarettes Started: 07/01/1976 Status Unknown Sex Assigned at Date Recorded Not on file documented as of this encounter Plan of Treatment Not on filedocumented as of this encounter Visit Diagnoses Not on filedocumented in this encounter Care Teams Java Solutions Architect Relationship Specialty Start Date End Date Fabian Arias MD PCP - General Family Medicine 09/04/[address] [place] [phone] documented as of this encounter
--- OUTSIDE RECORDS SUMMARY | 2022-03-08 08:42 | XMS_ITS | Encounter Summary ---
:1940 Author Organization [facility] Address [address] [place] [address] Care Team Providers Name Role Phone Fabian Arias MD Primary Care Provider Encounter Details Date Type Department Care Team Description 04/05/2021 Orders Only [facility] Landon Zarate MD [address] [place] [address] [place], [place] [phone] (Wo rk) Social History Tobacco Use Types Packs/Day Years Used Date Smoking Tobacco: Never Assessed Sex Assigned at Date Recorded Not on file documented as of this encounter Plan of Treatment Not on filedocumented as of this encounter Procedures Procedure Name Priority Date/Time Associated Diagnosis Comme nts CHEMISTRY Routine 04/05/2021 Results for thi s procedure are in the resu lts section. documented in this encounter Results (ABNORMAL) Spectrae Chemistry (04/05/2021) P athologist Signature PTH 694 (H) 16 - 80 APS SPECTRA pg/mL [facility] Specimen (Source) Anatomical Collection Method Collection Time Re ceived Time Location / / Volume Laterality 04/05/2021 04/06/2021 9:09 PM CDT Narrative APS SPECTRA [facility] - 04/07/2021 Unless otherwise specified, test(s) performed at: [facility], [address] [place] [id number] CIVIL ENGINEERING PROJECT MANAGER: Carl Paula M.D. For any questions, please call customer service at FREQUENCY:MONTHLY Resulting Agency Comment Specimen source: Plasma Landon Calvert MD LAB BLOOD ORDERABLES Performing Organization Address City/State/ZIP Code Phon e Number APS SPECTRA [facility] documented in this encounter Visit Diagnoses Not on filedocumented in this encounter Care Teams Hospice Community Liaison Relationship Specialty Start Date End Date Fabian Arias MD PCP - General Family Medicine 09/04/[address] [place] [address] documented as of this encounter
--- OUTSIDE RECORDS SUMMARY | 2022-03-08 08:42 | XMS_ITS | Encounter Summary ---
:1940 Author Organization [facility] Address [address] [place] [address] Care Team Providers Name Role Phone Fabian Arias MD Primary Care Provider Encounter Details Date Type Department Care Team Description 05/03/2021 Treatment [facility] Landon Zarate MD [address] [place] [address] [place], [place] [phone] (Wo rk) Social History Tobacco Use Types Packs/Day Years Used Date Smoking Tobacco: Never Assessed Sex Assigned at Date Recorded Not on file documented as of this encounter Miscellaneous Notes Dialysis Note - Landon Calvert MD - 05/03/2021 12:25 PM CDT Date: May 03, 2021 Patient Name: Zamzam Garibay : 1940 Chart #: [id number] Sex: F This patient was personally seen for a complete visit as part of routine monthly dialysis care. A review of the dialysis treatment, blood pressure, estimated dry weight and recent lab values was made. These were discussed with the patient and staff as necessary. Treatment Data for 05/03/2021 started at:9:54 AM Dialyzer: 160NRe Optiflux Na: 137 mEq/L Bicarb: 35 mEq/L Dialysate: 3.0 K, 2.25 Ca, 1.0 Mg, 100 Dextrose (G3231) Dialysate/Machine Temp (prescribed): 37 C Dialysate/Machine Temp (actual): 36.9 C BFR (prescribed): 400 BFR (actual): 400 Prescribed time: 03:30 EDW: 41.5 kg Access Type: Active (In Use):CVCatheter-Tunneled/Chest Pre Dialysis Vitals (for 05/03/2021 9:41 AM ) Pre BP (sit): 156/78 Pre Wt: 43.2 kg Temp: 96.2 F Post Dialysis Vitals (for 05/01/2021 1:32 PM ) Post BP (sit): 118/59 Post Wt: 41.4 kg Current Dialysis Vitals (for 05/03/2021 11:04 AM ) BP (sit): 158/63 AP(-) / ANIMAL ATTENDANTS AND TRAINERS: 205/139 Pulse: 76 Chairside data as of 05/03/2021 11:04 AM Last 3 Treatments 05/01/2021 04/28/2021 04/26/2021 EDW (kg) 41.5 41.5 41.5 Weight Pre (kg) 44.1 43.4 44.3 Weight Post (kg) 41.4 41.6 42.5 Dialytic Weight Loss (kg) -2.7 -1.8 -1.8 EDW Deviation (kg) -0.1 0.1 1.0 BP Sit Pre 155/78 150/79 127/61 BP Sit Post 118/59 125/66 130/79 UF Rate (mL/kg/hr) 18 12 12 Prescribed BFR 400 400 400 Average Delivered BFR 400 400 400 Prescribed Treatment Time 03:30 03:30 03:30 Actual Treatment Time 03:32 03:33 03:33 Treatment Medication Orders Medication Sig Start Date [...] 0.5 mcg ORAL Every Treatment 04/10/2021 04/09/2022 FURNACE COOLER: Landon Calvert MD LOCATION: [phone] SCHEDULE: M-W-F 2nd Shift EDW: kg. DIALYZER: HD DURATION: NEEDLE SIZE: ANTICOAG: BATH: QB: ml/min QD: ml/min Subjective 05/03/21: Zamzam says she is so thankful to be here. She feels excellent and is very happy with her living situation. She has no concerns at all and is doing great on HD. 04/26/21: She was hospitalized briefly at [facility] for dyspnea, no pneumonia but rather related to CHF. She saw cardiology in follow-up in clinic, lisinopril and metoprolol and lasix with UF on HD to dry weight recommended. She is not interested in home dialysis, discussed today. 04/12/21: Patient new to me. She followed with parts counter clerk in [facility], did not follow-up,crashed into dialysis [...] LUE with good t/b but not mature Medication List Medication Sig Start Date B [...] mouth once a day 04/12/2021 RenaPlex-D (vit b,s-ot-rhci-selen-vit d3-e) 800 mcg-12.5 mg-2,000 unit tablet Take 1 tablet by mouthonce a day trazodone 50 mg tablet Take 1 tablet by mouth every night as needed 04/12/2021 Allergy List Allergen Reaction Reaction Severity Onset Date Venofer Skin rash Medications reviewed and no changes were made. Treatment and Adequacy Assessment Dialysis is adequate. Achieves prescribed time - Yes Achieves prescribed frequency - Yes Continue current prescription. Lower time to 3.5hrs Vascular Access Assessment Type of access: Marthaand JOHN AVF Will have her complete ultrasound of AVF to assess depth, size, and tributary. May need ligation/elevation. Anemia Assessment HEMOGLOBIN (G/DL) IN BLOOD g/dL 10.0 (04/26/21) 10.3 (04/12/21) Hemoglobin is below goal. Will adjust CARIE and intravenous iron per protocol. No Venofer, reaction Nutritional and Metabolic Assessment Albumin is below goal. Potassium is at goal. Bicarbonate is at goal. Continue same bicarbonate in dialysate. Bone and Mineral Metabolism Assessment IPTH pg/mL 694 (04/05/21) Corrected Calcium is below goal. Phosphorous is above goal. Intact PTH is above goal. Nutrition Aide will adjust binders and vitamin D per protocol and continue to provide dietary education. Start Phoslo and calcitriol Monthly labs today Cardiovascular Assessment Blood pressures reviewed and are acceptable. Intradialytic weight gains are appropriate. Estimated dry weight is appropriate. Continue same cardiovascular medications. Transplant Status: Patient is not a candidate. age and co-morbidities Resuscitation Status Doing well on dialysis No change to prescription today U/s of AVF being arranged, pending result may need to see vascular as not mature and I think there is a tributary that may need to be ligated Monthly labs today Landon Calvert MD [ Signed And locked electronically On 05/03/2021 at 12:28:07 PM ] Transcribed: Landon Calvert ( 05/03/2021 ) documented in this encounter Plan of Treatment Not on filedocumented as of this encounter Visit Diagnoses Not on filedocumented in this encounter Care Teams Steamer Tender Relationship Specialty Start Date End Date Fabian Arias MD PCP - General Family Medicine 09/04/[address] [place] [address] documented as of this encounter
--- OUTSIDE RECORDS SUMMARY | 2022-03-08 08:42 | XMS_ITS | Encounter Summary ---
:1940 Author Organization [facility] Address [address] [place] [address] Phone Care Team Providers Name Role Phone Fabian Arias MD Primary Care Provider Encounter Details Date Type Department Care Team Description 12/04/2020 Orders Only [facility] Re[facility] Chronic kidne y disease, Stage V (HCC); Consultants MD Dinesh Stage 5 chronic kidney disease (HCC); [address] Essential (primary) hypertension; [place] [address] [place], [place] Anemia in chronic kidney dis ease; [place] [address] Secondary hyperparathyroidism of renal o rigin ([facility]) [phone] Social History Tobacco Use Types Packs/Day Years Used Date Smoking Tobacco: Smoker, Current Cigarettes Started: 07/01/1976 Status Unknown Sex Assigned at Date Recorded Not on file documented as of this encounter Plan of Treatment Not on filedocumented as of this encounter Visit Diagnoses Diagnosis Chronic kidney disease, Stage V (HCC) Chronic kidney disease, Stage V Stage 5 chronic kidney disease (HCC) Essential (primary) hypertension Anemia in chronic kidney disease Secondary hyperparathyroidism of renal o rigin (HCC) Secondary hyperparathyroidism of renal o rigin documented in this encounter Care Teams Supervisor Plastic Sheets Relationship Specialty Start Date End Date Fabian Arias MD PCP - General Family Medicine 09/04/[address] [place] [address] documented as of this encounter
--- OUTSIDE RECORDS SUMMARY | 2022-03-08 08:42 | XMS_ITS | Encounter Summary ---
:1940 Author Organization [facility] Address [address] [place] [address] Phone Care Team Providers Name Role Phone Fabian Arias MD Primary Care Provider Reason for Referral Consultation (Routine) - Closed Specialty Diagnoses / Procedures Referred By Contact Refer red To Contact Nephrology Diagnoses Chronic kidney disease, Stage V (HCC) Fabian Arias MD Kennedy, Shane W, MD [address] [place] [phone] Referral ID Status Reason Start Date Expiration Date Visits V isits Requested Authorized [id number] Closed Consult and 07/29/2020 11/25/2020 4 4 Treat BANDER HAND Encounter Details Date Type Department Care Team Description 08/05/2020 Transcribe Orders [facility] MD Fabian disease, Stage V [address] (HCC) (Primary Dx) [place], [place] [address] [address] [address] [place] [address] Social History Tobacco Use Types Packs/Day Years Used Date Smoking Tobacco: Smoker, Current Cigarettes Started: 07/01/1976 Status Unknown Sex Assigned at Date Recorded Not on file documented as of this encounter Plan of Treatment Scheduled Referrals Name Type Priority Associated Order Schedule Diagnoses Ambulatory referral Outpatient Referral Routine Chronic kidney Expected: to Nephrology disease, Stage V 08/05/2020 , (HCC) Expires: 09/02/2021 documented as of this encounter Visit Diagnoses Diagnosis Chronic kidney disease, Stage V (HCC) - Primary Chronic kidney disease, Stage V documented in this encounter Care Teams Ornamenter Relationship Specialty Start Date End Date Fabian Arias MD PCP - General Family Medicine 09/04/[address] [place] [address] documented as of this encounter
--- OUTSIDE RECORDS SUMMARY | 2022-03-08 08:42 | XMS_ITS | Encounter Summary ---
:1940 Author Organization [facility] Address [address] [place] [address] Care Team Providers Name Role Phone Fabian Arias MD Primary Care Provider Encounter Details Date Type Department Care Team Description 04/12/2021 Orders Only [facility] Landon Zarate MD [address] [place] [address] [place], [place] [phone] (Wo rk) Social History Tobacco Use Types Packs/Day Years Used Date Smoking Tobacco: Never Assessed Sex Assigned at Date Recorded Not on file documented as of this encounter Plan of Treatment Not on filedocumented as of this encounter Procedures Procedure Name Priority Date/Time Associated Diagnosis Comme nts HEMATOLOGY Routine 04/12/2021 Results for thi s procedure are in the resu lts section. documented in this encounter Results (ABNORMAL) HEMATOLOGY (04/12/2021) Analysis Performed At Patho logist Time Signature Hemoglobin 10.3 (L) 12.0 - [facility] 16.0 g/dL [facility] Hemoglobin x 3 30.9 (L) 36.0 - [facility] 48.0 % [facility] Specimen (Source) Anatomical Collection Method Collection Time Re ceived Time Location / / Volume Laterality 04/12/2021 04/13/2021 2:50 PM CDT Narrative [facility]PS [facility] - 04/13/2021 Unless otherwise specified, test(s) performed at: [facility], [address] [place] [id number] [address] SEALER: Carl Paula M.D. For any questions, please call customer service at FREQUENCY:OTHER Resulting Agency Comment Specimen source: Blood Landon Calvert MD LAB BLOOD ORDERABLES Performing Organization Address City/State/ZIP Code Phon e Number APS SPECTRA [facility] documented in this encounter Visit Diagnoses Not on filedocumented in this encounter Care Teams Manufacturer Agent Relationship Specialty Start Date End Date Fabian Arias MD PCP - General Family Medicine 09/04/[address] [place] [address] documented as of this encounter
--- OUTSIDE RECORDS SUMMARY | 2022-03-08 08:42 | XMS_ITS | Encounter Summary ---
:1940 Author Organization [facility] Address [address] [place] [address] Phone Care Team Providers Name Role Phone Fabian Arias MD Primary Care Provider Encounter Details Date Type Department Care Team Description 03/16/2021 Orders Only [facility] Eliud Duque MD [address] [place] [address] [place], [place] [phone] (Wo rk) Social History Tobacco Use Types Packs/Day Years Used Date Smoking Tobacco: Never Assessed Sex Assigned at Date Recorded Not on file documented as of this encounter Plan of Treatment Not on filedocumented as of this encounter Procedures Procedure Name Priority Date/Time Associated Diagnosis Comme nts HD KINETICS Routine 03/16/2021 Results for thi s procedure are in the resu lts section. SPECIAL CHEMISTRY Routine 03/16/2021 Results fo r this procedure are in the resu lts section. POST CHEMISTRY Routine 03/16/2021 Results for t his procedure are in the resu lts section. IMMUNO CHEMISTRY Routine 03/16/2021 Results for this procedure are in the resu lts section. TRACE ELEMENTS Routine 03/16/2021 Results for t his procedure are in the resu lts section. HEMATOLOGY Routine 03/16/2021 Results for thi s procedure are in the resu lts section. CHEMISTRY Routine 03/16/2021 Results for thi s procedure are in the resu lts section. CHEMISTRY Routine 03/16/2021 Results for thi s procedure are in the resu lts section. documented in this encounter Results (ABNORMAL) HD KINETICS (03/16/2021) P athologist Signature % Urea 85 (H) 65 - 80 % [facility] Reduction [facility] Specimen (Source) Anatomical Collection Method Collection Time Re ceived Time Location / / Volume Laterality 03/16/2021 03/20/2021 11:2 3 AM CDT Resulting Agency Comment Specimen source: Serum Eliud Duque MD LAB BLOOD ORDERABLES Performing Organization Address City/State/ZIP Code Phon e Number [facility] POST CHEMISTRY (03/16/2021) athologist Signature BUN Post 8 6 - 19 [facility] Dialysis mg/dL [facility] Specimen (Source) Anatomical Collection Method Collection Time Re ceived Time Location / / Volume Laterality 03/16/2021 03/20/2021 11:2 0 AM CDT Narrative [facility]PS [facility] - 03/20/2021 Unless otherwise specified, test(s) performed at: [facility], [address] [place] [address], [place] [id number] VP DIGITAL MARKETING: Vicente Flores M.D., Ph.D For any questions, please call customer service at FREQUENCY:MONTHLY Resulting Agency Comment Specimen source: Plasma Eliud Duque MD LAB BLOOD ORDERABLES Performing Organization Address City/State/ZIP Code Phon e Number [facility] TRACE ELEMENTS (03/16/2021) athologist Signature Aluminum <5 0 - 10 [facility] mcg/L [facility] Comment: This test was developed and its performa nce characteristics determined by [facility]. It has not been cleared or approved by the FDA. The laboratory is regulated under CLIA a s qualified to perform high complexity testing. This test is used fo r clinical purposes. It should not be regarded as investigational or fo r research. Specimen (Source) Anatomical Collection Method Collection Time Re ceived Time Location / / Volume Laterality 03/16/2021 03/20/2021 11:2 9 AM CDT Narrative [facility] - 03/21/2021 Unless otherwise specified, test(s) performed at: [facility], [address] [place] [address], [place] [id number] VP DIGITAL MARKETING: Vicente Flores M.D., Ph.D For any questions, please call customer service at FREQUENCY:MONTHLY Resulting Agency Comment Specimen source: Serum Eliud Duque MD LAB BLOOD ORDERABLES Performing Organization Address City/[facility] Phon e Number APS SPECTRA [facility] (ABNORMAL) HEMATOLOGY (03/16/2021) Analysis Performed At Patho logist Time Signature Hemoglobin 9.4 (L) 12.0 - [facility] 16.0 g/dL [facility] Hemoglobin x 3 28.2 (L) 36.0 - [facility] 48.0 % [facility] Specimen (Source) Anatomical Collection Method Collection Time Re ceived Time Location / / Volume Laterality 03/16/2021 03/20/2021 4:33 PM CDT Narrative [facility]PS [facility] - 03/22/2021 Unless otherwise specified, test(s) performed at: [facility], [address] [place] [address], [place] [address] VP DIGITAL MARKETING: Vicente Flores M.D., Ph.D For any questions, please call customer service at FREQUENCY:MONTHLY Resulting Agency Comment Specimen source: Blood Eliud Duque MD LAB BLOOD ORDERABLES Performing Organization Address City/[facility] Phon e Number APS SPECTRA [facility] (ABNORMAL) Spectrae Chemistry (03/16/2021) P athologist Signature PTH 608 (H) 16 - 80 [facility] pg/mL [facility] Specimen (Source) Anatomical Collection Method Collection Time Re ceived Time Location / / Volume Laterality 03/16/2021 03/20/2021 11:2 0 AM CDT Narrative [facility]PS [facility] - 03/20/2021 Unless otherwise specified, test(s) performed at: [facility], [address] [place] [address], [place] [id number] VP DIGITAL MARKETING: Vicente Flores M.D., Ph.D For any questions, please call customer service at FREQUENCY:MONTHLY Resulting Agency Comment Specimen source: Plasma Eliud Duque MD LAB BLOOD ORDERABLES Performing Organization Address City/[facility] Phon e Number [facility] IMMUNO CHEMISTRY (03/16/2021) P athologist Signature Hep B Surface Negative Negative [facility] Ag [facility] Hepatitis B <10 mIU/mL [facility] Surface Ab [facility] Comment: Reference Range: <10 mIU/mL ? Non-Immune >=10 mIU/mL ?Immune The magnitude of the measured result abo ve 10 mIU/mL is not indicative of the total amount of antibody present. Custom Exception Hep B Core Total Ab Negative Negative APS SPECTR A [facility] Specimen (Source) Anatomical Collection Method Collection Time Re ceived Time Location / / Volume Laterality 03/16/2021 03/20/2021 11:2 0 AM CDT Resulting Agency Comment Specimen source: Serum Eliud Duque MD LAB BLOOD ORDERABLES Performing Organization Address City/State/ZIP Code Phon e Number [facility] (ABNORMAL) SPECIAL CHEMISTRY (03/16/2021) athologist Signature Folate >24.0 ng/mL [facility] Comment: Reference Range: Deficient: ?<3.4 ng/mL Indeterminate: ??3.4-5.4 ng/mL Normal: ? >5.4 ng/mL Vitamin B-12 1,261 (H) 211 - 911 pg/mL [facility] Vitamin D, 25-OH, Total 47.1 30.0 - 100.0 ng/mL [facility] Comment: Vitamin D Status Classification: Deficiency ? <10.0 ng/mL Insufficiency ?10.0-30.0 ng/mL Sufficiency ?30.0-100.0 ng/mL Toxicity ? >100.0 ng/mL Specimen (Source) Anatomical Collection Method Collection Time Re ceived Time Location / / Volume Laterality 03/16/2021 03/20/2021 11:2 0 AM CDT Resulting Agency Comment Specimen source: Serum Eliud Duque MD LAB BLOOD BANK TEST ORDERABL ES Performing Organization Address City/State/ZIP Code Phon e Number [facility]PS [facility] (ABNORMAL) Spectrae Chemistry (03/16/2021) [facility] Method Time Signature Ferritin 348 (H) 10 - 291 [facility] ng/mL [facility] BUN 52 (H) 6 - 19 [facility] mg/dL [facility] Creatinine 3.24 (H) 0.60 - [facility] 1.30 mg/dL [facility] BUN/Creatinine 16.0 10.0 - [facility] Ratio 20.0 [facility] Sodium 142 136 - 145 [facility] mEq/L [facility] Potassium 4.0 3.5 - 5.1 [facility] mEq/L [facility] Chloride 105 96 - 108 [facility] mEq/L [facility] Bicarbonate 27 20 - 31 A[facility] (CO2) mEq/L [facility] Comment: Please note change in reference range. Phosphorus 5.5 (H) 2.6 - 4.5 mg/dL [facility]PS [facility]PECTRA D [facility] Alkaline Phosphatase 212 (H) 35 - 104 U/L APS SP ECTRA [facility] Total Protein 5.8 (L) 6.0 - 8.5 g/dL [facility] Albumin 3.3 (L) 3.5 - 5.2 g/dL [facility] D[facility] [place] Globulin, Total 2.5 2.0 - 4.0 g/dL APS SPECT RA [facility] A/G Ratio 1.3 1.0 - 2.0 APS [facility]PECTRA [facility] Magnesium 1.7 1.6 - 2.6 mg/dL [facility]PS [facility]PECT[facility] DA [facility] Comment: Custom Exception Iron 39 30 - 160 mcg/dL APS SPECTRA DA [facility] Specimen (Source) Anatomical Collection Method Collection Time Re ceived Time Location / / Volume Laterality 03/16/2021 03/20/2021 11:2 0 AM CDT Narrative [facility] - 03/20/2021 Unless otherwise specified, test(s) performed at: [facility], [address] [place] [address], [place] [address] [employer]ETING: Vicente Flores M.D., Ph.D For any questions, please call customer service at FREQUENCY:MONTHLY Resulting Agency Comment Specimen source: Serum Eliud Duque MD LAB BLOOD ORDERABLES Performing Organization Address City/State/ZIP Code Phon e Number [facility] documented in this encounter Visit Diagnoses Not on filedocumented in this encounter Care Teams Investment Accountant Relationship Specialty Start Date End Date Fabian Arias MD PCP - General Family Medicine 09/04/[address] [place] [address] documented as of this encounter
--- OUTSIDE RECORDS SUMMARY | 2022-03-08 08:42 | XMS_ITS | Encounter Summary ---
:1940 Author Organization [facility] Address [address] [place] [address] Care Team Providers Name Role Phone Fabian Arias MD Primary Care Provider Encounter Details Date Type Department Care Team Description 04/26/2021 Orders Only [facility] Landon Zarate MD [address] [place] [address] [place], [place] [phone] [phone] (Wo rk) Social History Tobacco Use Types Packs/Day Years Used Date Smoking Tobacco: Never Assessed Sex Assigned at Date Recorded Not on file documented as of this encounter Plan of Treatment Not on filedocumented as of this encounter Procedures Procedure Name Priority Date/Time Associated Diagnosis Comme nts HEMATOLOGY Routine 04/26/2021 Results for thi s procedure are in the resu lts section. documented in this encounter Results (ABNORMAL) HEMATOLOGY (04/26/2021) Analysis Performed At Patho logist Time Signature Hemoglobin 10.0 (L) 12.0 - [facility] 16.0 g/dL [facility] Hemoglobin x 3 30.0 (L) 36.0 - APS [facility]RA 48.0 % [facility] Specimen (Source) Anatomical Collection Method Collection Time Re ceived Time Location / / Volume Laterality 04/26/2021 04/27/2021 12:0 9 PM CDT Narrative [facility]PS [facility]PECT[facility] - 04/27/2021 Unless otherwise specified, test(s) performed at: [facility], [address] [place] [id number] FINGER BUFF SEWER: Carl Paula M.D. For any questions, please call customer service at FREQUENCY:OTHER Resulting Agency Comment Specimen source: Blood Landon Calvert MD LAB BLOOD ORDERABLES Performing Organization Address City/State/ZIP Code Phon e Number APS SPECTRA [facility] documented in this encounter Visit Diagnoses Not on filedocumented in this encounter Care Teams Sample Examiner Relationship Specialty Start Date End Date Fabian Arias MD PCP - General Family Medicine 09/04/[address] [place] [address] documented as of this encounter
--- OUTSIDE RECORDS SUMMARY | 2022-03-08 08:42 | XMS_ITS | Encounter Summary ---
:1940 Author Organization [facility] Address [address] [place] [address] Phone Care Team Providers Name Role Phone Fabian Arias MD Primary Care Provider Encounter Details Date Type Department Care Team Description 06/02/2020 Treatment [facility] Kaia Chavez [address] [place] [address] [place], [place] [phone] (Wo rk) Social History Tobacco Use Types Packs/Day Years Used Date Smoking Tobacco: Never Assessed Sex Assigned at Date Recorded Not on file documented as of this encounter Miscellaneous Notes External Note - Kaia Chavez - 06/02/2020 12:00 AM CST Patient Name: Zamzam Garibay : 1940 Chart #: [id number] Date: Jun 02, 2020 06/02/2020 Height: 5 ft 3 in Weight: 101 lbs BMI: 17.9 Temperature: 97.8 F Blood Pressure: 140/80 mm Hg (Right Arm Sitting) Pulse: No site Sitting at 87 bpm Chel Morris [ Signed And locked electronically On 06/02/2020 at 02:26:34 PM ] Transcribed: Chel Morris ( 06/02/2020 ) documented in this encounter Plan of Treatment Not on filedocumented as of this encounter Visit Diagnoses Not on filedocumented in this encounter Care Teams Business Banking Representative Relationship Specialty Start Date End Date Fabian Arias MD PCP - General Family Medicine 09/04/[address] [place] [address] documented as of this encounter
--- OUTSIDE RECORDS SUMMARY | 2022-03-08 08:43 | XMS_ITS | Encounter Summary ---
:1940 Author Organization [facility] Address [address] [place] [address] Phone Care Team Providers Name Role Phone Fabian Arias MD Primary Care Provider Encounter Details Date Type Department Care Team Description 10/30/2016 Treatment [facility] Asha Herrera [address] [place] [address] [place], [place] [phone] (Wo rk) Social History Tobacco Use Types Packs/Day Years Used Date Smoking Tobacco: Never Assessed Sex Assigned at Date Recorded Not on file documented as of this encounter Miscellaneous Notes External Note - Asha Herrera - 10/30/2016 12:00 AM CDT Patient Name: Zamzam Garibay : 1940 Chart #: [id number] Date: October 30, 2016 10/30/2016 Height: 5 ft 3 in Weight: 122.6 lbs BMI: 21.7 Temperature: 97.8 F Blood Pressure: 138/88 mm Hg (Right Arm Sitting) 140/90 mm Hg (Right Arm Standing) Pulse: Right radial Sitting at 88 bpm Chel Torres [ Signed And locked electronically On 10/30/2016 at 10:09:00 AM ] Transcribed: Chel Torres ( 10/30/2016 ) documented in this encounter Plan of Treatment Not on filedocumented as of this encounter Visit Diagnoses Not on filedocumented in this encounter Care Teams Arch Support Maker Relationship Specialty Start Date End Date Fabian Arias MD PCP - General Family Medicine 09/04/[address] [place] [phone] documented as of this encounter
--- OUTSIDE RECORDS SUMMARY | 2022-03-08 08:43 | XMS_ITS | Encounter Summary ---
:1940 Author Organization [facility] Address [address] [place] [address] Phone Care Team Providers Name Role Phone Fabian Arias MD Primary Care Provider Encounter Details Date Type Department Care Team Description 02/28/2017 Treatment [facility] Cara Potts [address] [place] [address] [place], [place] [phone] [id number] (Wo rk) Social History Tobacco Use Types Packs/Day Years Used Date Smoking Tobacco: Never Assessed Sex Assigned at Date Recorded Not on file documented as of this encounter Miscellaneous Notes Clinical/Nursing Note - Cara Potts - 02/28/2017 12:00 AM CDT Patient Name: Zamzam Garibay : 1940 Chart #: [id number] Date: Feb 28, 2017 Pt called states unable to afford Paricalcitol wants medication in place. She also stated unaware ofsodium citrate. I called pharmacy [facility] [place], pharmacist also stated sodium citrate is otc. Dr. Duffy notified of pts complaint-V.O. per Dr. Duffy changed to Calcitriol 0.25 1 tab QOD and in place of sodium citrate, pt may take 1/2 tsp of baking soda BID. Pt notified voiced understanding.greta Potts MA Clinical Mgr [ Signed And locked electronically On 02/28/2017 at 01:45:38 PM ] Transcribed: Cara Potts ( 02/28/2017 ) documented in this encounter Plan of Treatment Not on filedocumented as of this encounter Visit Diagnoses Not on filedocumented in this encounter Care Teams Hoop Expander Relationship Specialty Start Date End Date Fabian Arias MD PCP - General Family Medicine 09/04/[address] [place] [address] documented as of this encounter
--- OUTSIDE RECORDS SUMMARY | 2022-03-08 08:43 | XMS_ITS | Encounter Summary ---
:1940 Author Organization [facility] Address [address] [place] [address] Phone Care Team Providers Name Role Phone Fabian Arias MD Primary Care Provider Encounter Details Date Type Department Care Team Description 10/28/2019 Treatment [facility] Robert Newell MD [address] [place] [address] [place], [place] [phone] [id number] (Wo rk) Social History Tobacco Use Types Packs/Day Years Used Date Smoking Tobacco: Never Assessed Sex Assigned at Date Recorded Not on file documented as of this encounter Progress Notes Robert Newell MD - 10/28/2019 12:00 AM CDT Patient Name: Zamzam Garibay : 1940 Chart #: [id number] Date: Oct 28, 2019 Referring MD: Fabian Arias MD Chief Complaint CKD III History of Present Illness 78 year old woman with a history of hypertension and chronic renal failure who was recently seen by me at [facility] with acute on chronic renal failure and [...] her there and planned electiveworkup for ischemia. Tobacco abuse continues, but she feels quite well currently without complaint. Medication List Medication Sig Start Date calcitriol 0.25 mcg capsule Take 1 capsule by mouth every other day 02/28/2017 carvedilol 6.25 mg tablet Take 1 tablet by mouth twice a day 10/28/2019 doxycycline monohydrate 100 mg tablet Take 1 tablet by mouth twice a day. Three times a week furosemide 80 mg tablet Take 1 tablet by mouth twice a day hydralazine 50 mg tablet Take 1 tablet by mouth three times a day Allergy List Allergen Reaction Reaction Severity Onset Date nkda Review of Systems General: Patient reports no fatigue, fever or significant changes in weight. at this time. HEENT: Patient reports no issues with vision changes, ear pain, sore throat or nose bleeds. at thistime. Skin: Patient reports no rashes, lesions or puritis. at this time. Cardiovascular: Patient reports no problems with chest pain, palpitations, PND, or orthopnea. at this time. Respiratory: Patient reports at this time. Gastrointestinal: Patient reports no anorexia, abdominal pain, constipation, vomitting, diarrhea orblood in stool. at this time. Genitourinary: Patient reports nocturia, at this time. Nocturia 1-2 times a night Musculoskeletal: Patient reports no new joint swelling, pain in joints/back, or difficulty ambulating and performing daily activities. per this visit. Neuro: Patient reports no frequent headaches, dizziness, numbness, or seizures. at this time. Hematologic: Patient reports no issues with easy bruising or abnormal bleeding, such as bleeding gums. at this time. Psychiatric: Patient reports no problems with depression, anxiety, or insomnia. at this time. Physical Exam Vital Signs - [As of 10/28/2019] 10/28/2019 Height: 5 ft 3 in Weight: 104.6 lbs BMI: 18.5 Temperature: 96.7 F Blood Pressure: 138/80 mm Hg (Right Arm Sitting) 136/80 mm Hg (Right Arm Standing) Pulse: Right radial Sitting at 64 bpm Oxygen Saturation: 100% (Left Hand) Oxygen Delivery: Room Air [facility] Lab Results WEIGHT-lbs 10/28/2019 104.6 lbs 02/21/2017 125 lbs 10/30/2016 122.6 lbs Constitutional: awake, alert and oriented. Eyes pupils are equal, round and reactive to light. ENT oral mucosa is moist and without ulcers or exudate. Respiratory: lungs clear bilaterally without wheezes or rhonchi. Cardiovascular: regular rate and rhythm. no rubs, murmurs or gallops. S1, S2. Gastrointestinal: normal BS, abdomen soft, non tender without organomegaly. Skin: no rash, lesions or excessive dryness. Neurological: alert and oriented X 3. Psychiatric: normal affect and mood. Lymphatic: no adenopathy. Lab Results [facility] Lab Results Albumin 10/12/2019 4.2 g/dL 02/19/2017 4.1 g/dL BUN 10/12/2019 86 mg/dL 02/19/2017 31 mg/dL BUN/Creatinine Ratio 10/12/2019 17 02/19/2017 16 Chloride 10/12/2019 95 mmol/L 02/19/2017 105 mmol/L Carbon Dioxide, Total 10/12/2019 18 mmol/L 02/19/2017 20 mmol/L Creatinine 10/12/2019 5.06 mg/dL 02/19/2017 1.90 mg/dL eGFR If NonAfricn Am 10/12/2019 8 mL/min/1.73 02/19/2017 26 mL/min/1.73 Glucose 10/12/2019 227 mg/dL 02/19/2017 98 mg/dL Protein, Total 02/19/2017 6.7 g/dL Potassium 10/12/2019 4.4 mmol/L 02/19/2017 5.2 mmol/L Sodium 10/12/2019 138 mmol/L 02/19/2017 142 mmol/L [facility] Lab Results eGFR If Africn Am 10/12/2019 9 mL/min/1.73 02/19/2017 30 mL/min/1.73 [facility] Lab Results Vitamin D, 25-Hydroxy 02/19/2017 11.8 ng/mL PTH, Intact 02/19/2017 119 pg/mL Calcium 10/12/2019 9.5 mg/dL 02/19/2017 9.4 mg/dL Phosphorus 10/12/2019 9.4 mg/dL 02/19/2017 3.7 mg/dL Uric Acid 02/19/2017 6.2 mg/dL [facility] Lab Results Hemoglobin 02/19/2017 11.9 g/dL Hematocrit 02/19/2017 37.3 % Platelets 02/19/2017 281 x10E3/uL WBC 02/19/2017 6.4 x10E3/uL [facility] Lab Results Protein,Total,Urine 02/19/2017 94.3 mg/dL Protein/Creat Ratio 02/19/2017 1651 mg/g creat Creatinine, Urine 02/19/2017 57.1 mg/dL Labs: 10/23/2016 BUN/Creat 27/1.9 C3, C4, MONICA, Hep C Ab unremarkable Problem List Description ICD9 Code ICD10 Code 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 I discussed the possibility of dialysis and various dialysis modalities. She is quite familiar with dialysis via her family. In center dialysis isher modality of choice when the time arrives. I will bring her back in 6-8 weeks and arrange access p lacement if renal function not improved. I asked her to reduce the Lasix to 80 mg am and afternoon dose prn only. Volume status appears excellent currently. Plan Chronic Kidney Disease Stage 5 Progressing CKD. Continue to monitor for signs of progression. Emphasis on Blood Pressure Control. Anemia of Chronic Kidney Disease Hgb currently at goal. No need for CARIE therapy. Bone Mineral Metabolism Check calcium, phosphorus, Vitamin D and intact PTH. Hypertension Blood pressure is currently at goal. Follow up with us in 2 months. Robert Newell MD [ Signed And locked electronically On 10/28/2019 at 01:32:01 PM ] Transcribed: Robert Newell ( 10/28/2019 ) documented in this encounter Plan of Treatment Not on filedocumented as of this encounter Visit Diagnoses Not on filedocumented in this encounter Care Teams Concrete Block Layer Relationship Specialty Start Date End Date Fabian Arias MD PCP - General Family Medicine 09/04/[address] [place] [address] documented as of this encounter
--- OUTSIDE RECORDS SUMMARY | 2022-03-08 08:43 | XMS_ITS | Encounter Summary ---
:1940 Author Organization [facility] Address [address] [place] [address] Phone Care Team Providers Name Role Phone Fabian Arias MD Primary Care Provider Encounter Details Date Type Department Care Team Description 09/20/2016 Treatment [facility] Ramirez Duffy MD [address] [place], [place] [phone] [place] [phone] (Wo rk) Social History Tobacco Use Types Packs/Day Years Used Date Smoking Tobacco: Never Assessed Sex Assigned at Date Recorded Not on file documented as of this encounter Progress Notes Ramirez Duffy MD - 09/20/2016 12:00 AM CDT Patient Name: Zamzam Garibay : 1940 Chart #: [id number] Date: Sep 20, 2016 Nephrology consultation dictated. Job ID: [id number] 75 yo wo w h/o recent diagnosis HTN is here for evaluation of GIOVANNI. No recent hospitalizations or ER visits. Denies h/o recent use of NSAIDS, denies gross hematuria, dysuria or hemoptysis. Denies Nate edema. Noted to have elevated creatinine up to 1.9 mg/dl (08/2016) with mild dipstick proteinuria. A&P: 1. Acute kidney Injury vs. CKD with mild proteinuria, differentials include hypertensive nephrosclerosis, ischemic nephropathy vs. GN. W/u for GIOVANNI/CKD sent along with serologies, w/u for paraproteiniemia. Check renal sonogram. Avoid NSAIDS, maintain BP within goal. 2. HTN essential uncontrolled, increased amlodipine to 5 mg PO BID 3. Ankle pain check uric acid level 4. Tobacco smoking, smoking cessation discussed To summarize I have increased amlodipine to 5 mg BID eRx sent, w/u for GIOVANNI/CKD sent. Follow up in about 6-8 weeks. Thank you for the opportunity to participate in Ms. Garibay's care, please do not hesitate to call for any questions or c hanges. Thanks again. Copy of labs and notes: MD Ramirez Regan MD [ Signed And locked electronically On 09/20/2016 at 12:35:28 PM ] Transcribed: Ramirez Duffy ( 09/20/2016 ) documented in this encounter Miscellaneous Notes External Note - Ramirez Duffy MD - 09/20/2016 12:00 AM CDT Patient Name: Zamzam Garibay : 1940 Chart #: [id number] Date: Sep 20, 2016 09/20/2016 Height: 5 ft 3 in Weight: 121.6 lbs BMI: 21.5 Temperature: 98 F Blood Pressure: 150/90 mm Hg (Left Arm Sitting) Pulse: Left radial Sitting at 88 bpm Ramirez Duffy MD [ Signed And locked electronically On 09/20/2016 at 12:33:02 PM ] Transcribed: Ramirez Duffy MD ( 09/20/2016 ) documented in this encounter Plan of Treatment Not on filedocumented as of this encounter Visit Diagnoses Not on filedocumented in this encounter Care Teams Slide Fastener Chain Assembler Relationship Specialty Start Date End Date Fabian Arias MD PCP - General Family Medicine 09/04/[address] [place] [address] documented as of this encounter
--- OUTSIDE RECORDS SUMMARY | 2022-03-08 08:43 | XMS_ITS | Encounter Summary ---
:1940 Author Organization [facility] Address [address] [place] [address] Phone Care Team Providers Name Role Phone Fabian Arias MD Primary Care Provider Encounter Details Date Type Department Care Team Description 02/21/2017 Treatment [facility] Ramirez Duffy MD [address] [place] [address] [place] [phone] (Wo rk) Social History Tobacco Use Types Packs/Day Years Used Date Smoking Tobacco: Never Assessed Sex Assigned at Date Recorded Not on file documented as of this encounter Progress Notes Ramirez Duffy MD - 02/21/2017 12:00 AM CDT Patient Name: Zamzam Garibay : 1940 Chart #: [id number] Date: Feb 21, 2017 Referring MD: Fabian Arias MD Chief Complaint CKD III History of Present Illness 76 yo wo w h/o recent diagnosis HTN is here for evaluation of GIOVANNI. No recent hospitalizations or ER visits. Denies h/o recent use of NSAIDS, denies gross hematuria, dysuria or hemoptysis. Denies Nate edema. C/o left ankle pain off and on. 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 Noted to have elevated creatinine up to 1.9 mg/dl (08/2016) with mild dipstick proteinuria. Renal sonogram (09/2016) showed 12.2 & 10.7 cm kidneys b/l with diffuse b/l increased echogenecity. Serologies w MONICA, C3, C4, Hep C ab was unremarkable (09/2016) Medication List Medication Sig Start Date amlodipine 5 mg tablet Take 1 tablet by mouth twice a day 09/20/2016 aspirin 81 mg tablet,delayed release (DR/EC) Take 1 tablet by mouth once a day carvedilol 3.125 mg tablet Take 1 tablet by mouth twice a day 10/30/2016 ergocalciferol (vitamin D2) 50,000 unit capsule Take 1 capsule by mouth as directed as directed. Take 1 capsule a week for 1 month, then 1 capsule a month for 5 months 02/21/2017 paricalcitol 1 mcg capsule Take 1 capsule by mouth every other day 02/21/2017 sodium citrate-citric acid 500-334 mg/5 mL solution 20 ml by mouth twice a day 02/21/2017 Allergy List Allergen Reaction Onset Date nkda Review of Systems General: [...] Physical Exam Vital Signs - [As of 02/21/2017] 02/21/2017 Height: 5 ft 3 in Weight: 125 lbs BMI: 22.1 Temperature: 97 F Blood Pressure: 130/70 mm Hg (Right Arm Sitting) Pulse: Right radial Sitting at 66 bpm [facility] Lab Results WEIGHT-lbs 02/21/2017 125 lbs 10/30/2016 122.6 lbs 09/20/2016 121.6 lbs Constitutional: awake, alert and oriented. Eyes [...] no adenopathy. Lab Results [facility] Lab Results Albumin, Serum 02/19/2017 4.1 g/dL BUN 02/19/2017 31 mg/dL BUN/Creatinine Ratio 02/19/2017 16 Chloride, Serum 02/19/2017 105 mmol/L Carbon Dioxide, Total 02/19/2017 20 mmol/L Creatinine, Serum 02/19/2017 1.90 mg/dL eGFR If NonAfricn Am 02/19/2017 26 mL/min/1.73 Glucose, Serum 02/19/2017 98 mg/dL Protein, Total, Serum 02/19/2017 6.7 g/dL Potassium, Serum 02/19/2017 5.2 mmol/L Sodium, Serum 02/19/2017 142 mmol/L [facility] Lab Results eGFR If Africn Am 02/19/2017 30 mL/min/1.73 [facility] Lab Results Vitamin D, 25-Hydroxy 02/19/2017 11.8 ng/mL PTH, Intact 02/19/2017 119 pg/mL Calcium, Serum 02/19/2017 9.4 mg/dL Phosphorus, Serum 02/19/2017 3.7 mg/dL Uric Acid, Serum 02/19/2017 6.2 mg/dL [facility] Lab Results Hemoglobin 02/19/2017 11.9 g/dL Hematocrit 02/19/2017 37.3 % Platelets 02/19/2017 281 x10E3/uL WBC 02/19/2017 6.4 x10E3/uL [facility] Lab Results Protein,Total,Urine 02/19/2017 94.3 mg/dL Protein/Creat Ratio 02/19/2017 1651 mg/g creat Labs: 10/23/2016 BUN/Creat 27/1.9 C3, C4, MONICA, Hep C Ab unremarkable Impression Problem List Description ICD9 Code ICD10 Code 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 1. Acute kidney Injury vs. CKD III with moderate proteinuria, differentials include hypertensive nephrosclerosis, ischemic nephropathy vs. GN. Urine Prot/creat is not available. Avoid NSAIDS, maintain risk factor control. w/u for paraproteiniemia. I discussed about CT guided kidney bx considering declined kidney function along with moderate proteinuria she has. Differentials include FSGS, membranous etc. Patient would look jane her schedule and let me know about the kidney bx. 2. HTN essential controlled on carvedilol 3.125 mg BID and amlodipine, continue 3. Tobacco smoking, smoking cessation discussed, cutting down 4. Secondary hyperparathyroidism of renal disease start zemplar 1 mcg every other day 5. Vitamin D deficiency, start ergocalciferol eRx sent 6. AG metabolic acidosis, start PO bicarb supplements Plan To summarize I have started on paricalcitol, ergocalciferol and cytra-2, eRx sent, Follow up in about 3-4 months. Thank you for the opportunity to participate in Ms. Garibay's care, please do not hesitate to call for any questions or changes. Thanks again. Copy of labs and notes: Fabian Arias MD Discussed advanced care planning. Ramirez Duffy MD [ Signed And locked electronically On 02/21/2017 at 11:34:45 AM ] Transcribed: Ramirez Duffy ( 02/21/2017 ) documented in this encounter Plan of Treatment Not on filedocumented as of this encounter Visit Diagnoses Not on filedocumented in this encounter Care Teams Informatics Analyst Relationship Specialty Start Date End Date Fabian Arias MD PCP - General Family Medicine 09/04/20 [address] [place] [address] documented as of this encounter
--- OUTSIDE RECORDS SUMMARY | 2022-03-08 08:43 | XMS_ITS | Encounter Summary ---
:1940 Author Organization [facility] Address [address] [place] [address] Phone Care Team Providers Name Role Phone Fabian Arias MD Primary Care Provider Encounter Details Date Type Department Care Team Description 12/28/2019 Treatment [facility] Provider, Aps External [address] [place] [address] Social History Tobacco Use Types Packs/Day Years Used Date Smoking Tobacco: Never Assessed Sex Assigned at Date Recorded Not on file documented as of this encounter Miscellaneous Notes External Note - Aps External Provider - 12/28/2019 12:00 AM CDT Patient Name: Zamzam Garibay : 1940 Chart #: [id number] Date: Dec 28, 2019 12/28/2019 Height: 5 ft 3 in Weight: 108.6 lbs BMI: 19.2 Temperature: 98.8 F Blood Pressure: 136/84 mm Hg (Left Arm Sitting) 134/84 mm Hg (Left Arm Standing) Pulse: Left radial Sitting at 83 bpm Oxygen Saturation: 99% (Left Hand) Oxygen Delivery: Room Air Ceci Santos Electronic Induction Hardener [ Signed And locked electronically On 12/28/2019 at 12:58:10 PM ] Transcribed: Chel Johnson Assistant ( 12/28/2019 ) documented in this encounter Plan of Treatment Not on filedocumented as of this encounter Visit Diagnoses Not on filedocumented in this encounter Care Teams Cognos Developer Relationship Specialty Start Date End Date Fabian Arias MD PCP - General Family Medicine 09/04/[address] [place] [address] documented as of this encounter
--- OUTSIDE RECORDS SUMMARY | 2022-03-08 08:43 | XMS_ITS | Encounter Summary ---
:1940 Author Organization [facility] Address [address] [place] [address] Phone Care Team Providers Name Role Phone Fabian Arias MD Primary Care Provider Encounter Details Date Type Department Care Team Description 02/21/2017 Treatment [facility] Provider, Aps External [address] [place] [phone] Social History Tobacco Use Types Packs/Day Years Used Date Smoking Tobacco: Never Assessed Sex Assigned at Date Recorded Not on file documented as of this encounter Miscellaneous Notes External Note - Aps External Provider - 02/21/2017 12:00 AM CDT Patient Name: Zamzam Garibay : 1940 Chart #: [id number] Date: Feb 21, 2017 02/21/2017 Height: 5 ft 3 in Weight: 125 lbs BMI: 22.1 Temperature: 97 F Blood Pressure: 130/70 mm Hg (Right Arm Sitting) Pulse: Right radial Sitting at 66 bpm Chel Dennis [ Signed And locked electronically On 02/21/2017 at 10:54:30 AM ] Transcribed: Chel Dennis Assistant ( 02/21/2017 ) documented in this encounter Plan of Treatment Not on filedocumented as of this encounter Visit Diagnoses Not on filedocumented in this encounter Care Teams Mines Inspector Relationship Specialty Start Date End Date Fabian Arias MD PCP - General Family Medicine 09/04/[address] [place] [address] documented as of this encounter
--- OUTSIDE RECORDS SUMMARY | 2022-03-08 08:43 | XMS_ITS | Encounter Summary ---
:1940 Author Organization [facility] Address [address] [place] [address] Phone Care Team Providers Name Role Phone Fabian Arias MD Primary Care Provider Encounter Details Date Type Department Care Team Description 09/20/2016 Treatment [facility] Provider, Aps External [address] [place] [address] Social History Tobacco Use Types Packs/Day Years Used Date Smoking Tobacco: Never Assessed Sex Assigned at Date Recorded Not on file documented as of this encounter Miscellaneous Notes External Note - Aps External Provider - 09/20/2016 12:00 AM CDT Patient Name: Zamzam Garibay : 1940 Chart #: [id number] Date: Sep 20, 2016 09/20/2016 Height: 5 ft 3 in Weight: 121.6 lbs BMI: 21.5 Temperature: 98 F Blood Pressure: 150/90 mm Hg (Left Arm Sitting) Pulse: Left radial Sitting at 88 bpm Chel Dennis [ Signed And locked electronically On 09/20/2016 at 10:49:25 AM ] Transcribed: Gabriella Jimenez Psychometric Examiner ( 09/20/2016 ) documented in this encounter Plan of Treatment Not on filedocumented as of this encounter Visit Diagnoses Not on filedocumented in this encounter Care Teams Glassware Defect Repairer Relationship Specialty Start Date End Date Fabian Arias MD PCP - General Family Medicine 09/04/[address] [place] [address] documented as of this encounter
[2022-03-08 10:13] LABS: Chloride* 94 mmol/L (96-114); Potassium* 4.8 mmol/L (3.6-5.1); Sodium* 136 mmol/L (135-149)
[2022-03-08 10:15] LABS: Creatinine* 7.7 mg/dL (0.5-1.5); Estimated Glomerular Filt Rate 5 ml/min
[2022-03-08 10:16] LABS: Blood Urea Nitrogen* 45 mg/dL (7-30); Carbon Dioxide* 29 mmol/L (20-32); Glucose* 98 mg/dL (60-115)
== END 2022-03-08 08:34 | disposition home or self-care (01) ==
LOC: NFLDREF 08:33
PROVIDERS: PCP Family Medicine; Visit Provider Physician Assistant Surgical
DX: Z01.818 Encounter for other preprocedural examination (principal)
CPT/HCPCS: 80048

== ENCOUNTER 2022-04-25 13:41 | Outpatient (CLI) | payer OTHER, SELFPAY ==
--- OUTSIDE RECORDS SUMMARY | 2022-04-25 13:45 | XMS_ITS | Encounter Summary ---
:1940 Author Organization [facility] Address [address] [place] [address] Care Team Providers Name Role Phone Unavailable Primary Care Provider Unavailable Reason for Referral Outpatient (Routine) - Closed Specialty Diagnoses / Procedures Referred By Contact Refer red To Contact Diagnoses Failure Heart (HCC) Clark Rojo M.D. [facility] Procedures Echo Transthoracic (TTE) [address] [place] [address] Referral ID Status Reason Start Date Expiration Date Visits Requ ested Visits Authorized [id number] Closed 08/01/2021 08/01/2022 1 1 utpatient (Routine) - Closed Specialty Diagnoses / Procedures Referred By Contact Refer red To Contact Diagnoses Failure Heart (HCC) Clark Rojo M.D. [facility] Procedures ECG 12 Lead [address] [place] [address] Referral ID Status Reason Start Date Expiration Date Visits Requ ested Visits Authorized [id number] Closed 08/01/2021 08/01/2022 1 1 utpatient (Routine) - Closed Specialty Diagnoses / Procedures Referred By Contact Refer red To Contact Diagnoses Failure Heart (HCC) Clark Rojo M.D. 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 [address] [place] [phone] Social History Tobacco Use Types Packs/Day Years Used Date Smoking Tobacco: Every Day Cigars Comments: A few puffs a day Sex Assigned at Date Recorded Not on file documented as of this encounter Plan of Treatment Not on filedocumented as of this encounter Results ECG 12 Lead (08/22/2021 12:02 PM MOLD CAR PUSHER) P athologist Signature Ventricular Rate 74 BPM MUSE ECG/Min HI Interval 148 ms MUSE QRSD Interval 140 ms MUSE QT Interval 424 ms MUSE QTC Interval 470 ms MUSE P [place] 33 degrees MUSE R [place] -47 degrees MUSE T Wave [place] 75 degrees MUSE Specimen Anatomical Collection Method Collection Time Receive d Time (Source) Location / / Volume Laterality 08/22/2021 12:02 08/22/2021 PM MOLD CAR PUSHER 12:04 PM MOLD CAR PUSHER Impressions MUSE - 08/22/2021 12:04 PM MOLD CAR PUSHER Normal sinus rhythm 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 Procedure Note Boogie Vinson Jr., M.D. - 08/22/2021For matting of this note might be different from the original. 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 ECG ORDERABLES Performing Organization Address City/State/ZIP Code Phon e Number MUSE MUSE NA DX Chest AP or PA and Lateral 2 Views (08/22/2021 11:36 AM MOLD CAR PUSHER) Anatomical Region Laterality Modality Chest, Thoracic RST LOS, Thoracic ARZ LOS, Thoracic N/A Digital Radiography FLA LOS Specimen (Source) Anatomical Collection Method Collection Time Re ceived Time Location / / Volume Laterality 08/22/2021 11:38 AM MOLD CAR PUSHER Impressions 08/22/2021 11:39 AM MOLD CAR PUSHER In the interval from the outside study of 04/17/2021, cardiac silhouette has decreased in size and is now mildly enlarged. Diff use groundglass opacities with pulmonary venous hypertension and interstitial edema have significantl y improved. Mild residual interstitial opacity within the lower lungs, especially on the right. De nsely calcified aorta. Degenerative changes thoracic spine. Narrative 08/22/2021 11:39 AM MOLD CAR PUSHER EXAM: ??DX CHEST AP OR PA AND LATERAL 2 VIEWS Procedure Note Brady Woodard M.D., Ph.D. - 08/22/2021 EXAM: DX CHEST AP OR PA AND LATERAL 2 EWS IMPRESSION: In the interval from the outside study o f 04/17/2021, cardiac silhouette has decreased in size and is now mildly enlarged. Diff use groundglass opacities with pulmonary venous hypertension and interstitial edema have significantl y improved. Mild residual interstitial opacity within the lower lungs, especially on the right. De nsely calcified aorta. Degenerative changes thoracic spine. Clark Rojo M.D. IMG DIAGNOSTIC IMAGING PROCE DURES (ABNORMAL) NT-Pro B-Type Natriuretic Peptide (BNP) (08/22/2021 7:16 AM MOLD CAR PUSHER) P athologist Signature NT-Pro BNP >76797 (H) <=239 08/22/2021 DTL pg/mL 8:56 AM MOLD CAR PUSHER Comment: NT-proBNP values less than 300 pg/mL hav e a 99% negative predictive value for excluding acute congestive heart leandra lure. A cutoff of 1200 pg/mL for patients with an eGFR<60 yields a diagno stic sensitivity and specificity of 89% and 72% for acute congestive heart f ailure. ??A diagnostic NT-proBNP cutoff of 1800 pg/mL has been suggested in adults over 75 years of age in the absence of renal failure. Specimen Anatomical Collection Method Collection Time Receive d Time (Source) Location / / Volume Laterality Blood (Blood, 08/22/2021 7:16 AM 08/22/19 7:57 Venous) MOLD CAR PUSHER AM MOLD CAR PUSHER Clark Rojo M.D. LAB BLOOD ADD-ON Performing Organization Address City/[facility]/ZIP Code Phon e Number [facility] - [address] Potassium (08/22/2021 7:16 AM MOLD CAR PUSHER) P athologist Signature Potassium, S 4.5 3.6 - 5.2 08/22/2021 DTL mmol/L 8:36 AM MOLD CAR PUSHER Specimen Anatomical Collection Method Collection Time Receive d Time (Source) Location / / Volume Laterality Blood (Blood, 08/22/2021 7:16 AM 08/22/19 7:57 Venous) MOLD CAR PUSHER AM MOLD CAR PUSHER Clark Rojo M.D. LAB BLOOD ADD-ON Performing Organization Address City/[facility]/ZIP Code Phon e Number [facility] - [address] [place], [place] [address] [place] [id number] Bicarbonate (08/22/2021 7:16 AM MOLD CAR PUSHER) P athologist Signature Bicarbonate, S 25 22 - 29 08/22/2021 DTL mmol/L 8:36 AM MOLD CAR PUSHER Specimen Anatomical Collection Method Collection Time Receive d Time (Source) Location / / Volume Laterality Blood (Blood, 08/22/2021 7:16 AM 08/22/19 7:57 Venous) MOLD CAR PUSHER AM MOLD CAR PUSHER Clark Rojo M.D. LAB BLOOD ADD-ON Performing Organization Address City/[facility]/ZIP Code Phon e Number [facility] - [address] [place], [place] [address] [facility] [place] [address] Laboratories-[address] S-TSH (Thyroid-Stimulating Hormone - Sensitive) (08/22/2021 7:16 AM MOLD CAR PUSHER) P athologist Signature TSH, Sensitive 1.3 0.3 - 4.2 08/22/2021 DTL mIU/L 8:35 AM MOLD CAR PUSHER Specimen Anatomical Collection Method Collection Time Receive d Time (Source) Location / / Volume Laterality Blood (Blood, 08/22/2021 7:16 AM 08/22/19 7:57 Venous) MOLD CAR PUSHER AM MOLD CAR PUSHER Clark Rojo M.D. LAB BLOOD ADD-ON Performing Organization Address City/State/ZIP Code Phon e Number [facility] - [address] [place] [phone] [facility] [place] [address] Laboratories-[address] (ABNORMAL) CBC with Differential, Blood (08/22/2021 7:16 AM MOLD CAR PUSHER) Patholo gist Method Time Signature Hemoglobin 10.2 (L) 11.6 - 08/22/2021 DTL 15.0 g/dL 7:54 AM MOLD CAR PUSHER Hematocrit 30.4 (L) 35.5 - 08/22/2021 DTL 44.9 % 7:54 AM MOLD CAR PUSHER Erythrocytes 3.63 (L) 3.92 - 08/22/2021 DTL 5.13 7:54 AM MOLD CAR PUSHER x10(12)/L MCV 83.7 78.2 - 08/22/2021 DTL 97.9 fL 7:54 AM MOLD CAR PUSHER RBC Distrib Width 16.5 (H) 12.2 - 08/22/2021 DTL 16.1 % 7:54 AM MOLD CAR PUSHER Platelet Count 306 157 - 371 08/22/2021 DTL x10(9)/L 7:54 AM MOLD CAR PUSHER Leukocytes 6.2 3.4 - 9.6 08/22/2021 DTL x10(9)/L 7:54 AM MOLD CAR PUSHER Neutrophils 3.85 1.56 - 08/22/2021 DTL 6.45 7:54 AM MOLD CAR PUSHER x10(9)/L Lymphocytes 1.43 0.95 - 08/22/2021 DTL 3.07 7:54 AM MOLD CAR PUSHER x10(9)/L Monocytes 0.67 0.26 - 08/22/2021 DTL 0.81 7:54 AM MOLD CAR PUSHER x10(9)/L Eosinophils 0.15 0.03 - 08/22/2021 DTL 0.48 7:54 AM MOLD CAR PUSHER x10(9)/L Basophils 0.08 0.01 - 08/22/2021 DTL 0.08 7:54 AM MOLD CAR PUSHER x10(9)/L Specimen Anatomical Collection Method Collection Time Receive d Time (Source) Location / / Volume Laterality Blood (Blood, 08/22/2021 7:16 AM 08/22/19 7:40 Venous) MOLD CAR PUSHER AM MOLD CAR PUSHER Clark Rojo M.D. LAB BLOOD ADD-ON Performing Organization Address City/State/ZIP Code Phon e Number [facility] - [address] [place], [place] [address] [facility] [place] [place] [address] Laboratories-[facility] 200 [facility] (ABNORMAL) Lipid Panel (08/22/2021 7:16 AM MOLD CAR PUSHER) athologist Signature Cholesterol, 218 (H) mg/dL 08/22/2021 DTL Total 8:35 AM MOLD CAR PUSHER Comment: ----REFERENCE VALUE---- Desirable: < 200 Borderline high: 200 - 239 High: > or = 240 Triglycerides 75 mg/dL 08/22/2021 8:35 AM MOLD CAR PUSHER DTL Comment: ----REFERENCE VALUE---- Normal: <150 Borderline high: 150-199 High: 200-499 Very high: > or =500 Cholesterol, HDL, S 73 >=50 mg/dL 08/22/2021 8:35 AM MOLD CAR PUSHER DTL Calculated LDL 130 (H) mg/dL 08/22/2021 8:35 AM MOLD CAR PUSHER DT L Comment: ----REFERENCE VALUE---- Desirable: <100 mg/dL Above Desirable: 100-129 mg/dL Borderline High: 130-159 mg/dL High: 160-189 mg/dL Very High: >=190 mg/dL Cholesterol, Non-HDL, Calculated 145 mg/dL 022 8:35 AM MOLD CAR PUSHER DTL Comment: ----REFERENCE VALUE---- Desirable: <130 Above Desirable: 130-159 Borderline high: 160-189 High: 190-219 Very high: > or =220 Specimen Anatomical Collection Method Collection Time Receive d Time (Source) Location / / Volume Laterality Blood (Blood, 08/22/2021 7:16 AM 08/22/19 7:57 Venous) MOLD CAR PUSHER AM MOLD CAR PUSHER Clark Rojo M.D. LAB BLOOD ADD-ON Performing Organization Address City/State/ZIP Code Phon e Number [facility] - [address] [place], [place] [address] [place] [address] (ABNORMAL) BUN (Blood Urea Nitrogen) (08/22/2021 7:16 AM MOLD CAR PUSHER) P athologist Signature BUN (Blood Urea 42 (H) 6 - 21 08/22/2021 DTL Nitrogen), S mg/dL 8:36 AM MOLD CAR PUSHER Specimen Anatomical Collection Method Collection Time Receive d Time (Source) Location / / Volume Laterality Blood (Blood, 08/22/2021 7:16 AM 08/22/19 7:57 Venous) MOLD CAR PUSHER AM MOLD CAR PUSHER Clark Rojo M.D. LAB BLOOD ADD-ON Performing Organization Address City/State/ZIP Code Phon e Number [facility] - [address] [place], [place] [address] [place] [address] [place], [place] [address] [place] [address] AST (Aspartate Aminotransferase) (08/22/2021 7:16 AM MOLD CAR PUSHER) Patholo gist Method Time Signature Aspartate 21 8 - 43 08/22/2021 DTL Aminotransferase U/L 8:36 AM MOLD CAR PUSHER (AST), S Specimen Anatomical Collection Method Collection Time Receive d Time (Source) Location / / Volume Laterality Blood (Blood, 08/22/2021 7:16 AM 08/22/19 7:57 Venous) MOLD CAR PUSHER AM MOLD CAR PUSHER Clark Rojo M.D. LAB BLOOD ADD-ON Performing Organization Address City/State/ZIP Code Phon e Number [facility] - [address] [place], [place] [address] [facility] [place] [place] [address] [place] [address] (ABNORMAL) Creatinine with Estimated GFR (08/22/2021 7:16 AM MOLD CAR PUSHER) Analysis Performed At [facility] Time Signature Creatinine 6.02 (H) 0.59 - 08/22/2021 DTL 1.04 mg/dL 8:35 AM MOLD CAR PUSHER eGFR-Non <15 (L) >=60 08/22/2021 DTL Black/ mL/min/BSA 8:35 AM MOLD CAR PUSHER Fijian Comment: ----ADDITIONAL INFORMATION---- Estimated GFR calculated using the 2009 CKD_EPI creatinine equation. eGFR-Black/ <15 (L) >=60 mL/min/BSA 2021 8:35 AM MOLD CAR PUSHER DTL Comment: ----ADDITIONAL INFORMATION---- Estimated GFR calculated using the 2009 CKD_EPI creatinine equation. Specimen Anatomical Collection Method Collection Time Receive d Time (Source) Location / / Volume Laterality Blood (Blood, 08/22/2021 7:16 AM 08/22/19 7:57 Venous) MOLD CAR PUSHER AM MOLD CAR PUSHER Clark Rojo M.D. LAB BLOOD ADD-ON Performing Organization Address City/[facility] Phon e Number [facility] - [address] [place], [place] [phone] [place] [address] Glucose, Fasting (08/22/2021 7:16 AM MOLD CAR PUSHER) athologist Signature Glucose, P 83 70 - 100 08/22/2021 DTL mg/dL 8:10 AM MOLD CAR PUSHER Last Intake 12 hr 08/22/2021 DTL 7:57 AM MOLD CAR PUSHER Specimen Anatomical Collection Method Collection Time Receive d Time (Source) Location / / Volume Laterality Blood (Blood, 08/22/2021 7:16 AM 08/22/19 7:57 Venous) MOLD CAR PUSHER AM MOLD CAR PUSHER Clark Rojo M.D. LAB BLOOD NON ADD-ON Performing Organization Address City/State/[facility] Phon e Number [facility] - [id number] [place] [address] Sodium (08/22/2021 7:16 AM MOLD CAR PUSHER) athologist [facility] Sodium, S 141 135 - 145 08/22/2021 8:36 DTL mmol/L AM MOLD CAR PUSHER Specimen Anatomical Collection Method Collection Time Receive d Time (Source) Location / / Volume Laterality Blood (Blood, 08/22/2021 7:16 AM 08/22/19 7:57 Venous) MOLD CAR PUSHER AM MOLD CAR PUSHER Clark Rojo M.D. LAB BLOOD ADD-ON Performing Organization Address City/State/ZIP Code Phon e Number [facility] - [address] [place], [place] [address] [facility] [place] [address] Laboratories-[facility] 200 [facility] (TTE) 2D LIMITED WITH COLOR AND DOPPLER (08/21/2021 4:16 PM MOLD CAR PUSHER) [facility] Method Time Signature Ejection Fraction 53 MC CV EIMS LV Mass Index 183 MC CV EIMS LV End-Diastolic 43 MC CV EIMS Diameter LV End-Systolic 31 MC CV EIMS Diameter MV E Velocity 0.70 MC CV EIMS MV A Velocity 1.20 MC CV EIMS MV E/A 0.58 MC CV EIMS MV e' Velocity 0.04 MC CV EIMS Medial MV e' Velocity 0.04 MC CV EIMS Lateral MV E/e' Medial 17.50 MC CV EIMS MV E/e' Lateral 17.50 MC CV EIMS Left ventricular 56 MC CV EIMS stroke volume index Cardiac Output 6.19 MC CV EIMS Cardiac Index 4.18 MC CV EIMS LV Global -12 MC CV EIMS Longitudinal Strain LV Interventricular 16 MC CV EIMS Septal Wall Thickness LV Posterior Wall 15 MC CV EIMS Thickness LV Relative Wall 70 MC CV EIMS Thickness RV 4-Chamber Basal 39 MC CV EIMS Diameter RV 4-Chamber Mid 30 MC CV EIMS Diameter RV 4-Chamber Length 83 MC CV EIMS RA Pressure 5 MC CV EIMS AV mean gradient 3 MC CV EIMS Aortic valve area 3.97 MC CV EIMS Aortic Valve 1.04 MC CV EIMS Dimensionless Index Anatomical Region Laterality Modality Echocardiography Specimen (Source) Anatomical Collection Method Collection Time Re ceived Time Location / / Volume Laterality 08/21/2021 2:56 PM MOLD CAR PUSHER Impressions 08/21/2021 11:20 PM MOLD CAR PUSHER Echocardiogram performed per left ventricular function protocol. Last full echocardiogram performed 04/18/2021. LEFT VENTRICLE:Normal left ventricular c hamber size. Moderately-severely increased concentric left ventricular wall thickness. Left ventricular mass index by 2D 183 g/m2. Prominent left ventricular trab eculations. Calculated 2-D linear left v entricular ejection fraction 53%. No regional wall motion abnormalities. Global averaged left ventricular longitudinal peak systolic strain is abnormal at -12% (normal = more negative than -18%). Grade 1a/3 left v entricular diastolic dysfunction, consis tent with mildly elevated left ventricular filling pressure. RIGHT VENTRICLE:Normal right ventricular chamber size. Borderline reduced right ventricular systolic function. Unable to detect peak tricuspid regurgitation velocity for pulmonary artery systolic pressure calculation. ATRIA:Enlarged left atrial size by visua l estimate. Normal right atrial size. CARDIAC VALVES:Sclerotic aortic valve. T rivial aortic valve regurgitation. Thickened mitral valve. Calcified mitral annulus. Mild mitral valve regurgitation. Thickened tricuspid valve. Trivial tricuspid valve regurgitation. OTHER ECHO FINDINGS:Normal inferior vena cava size with normal inspiratory collapse (>50%). No intracardiac mass or thrombus, but the left atrial appendage cannot be visualized adequately with transthoracic echo to exclude thrombus in this location. Infusion catheter visualized in the RA. No ??pericardial effusion. For the complete report, see the Order-L [employer] Documents. Narrative 08/21/2021 11:20 PM MOLD CAR PUSHER For the complete report, see the Order-Level Documents. Final Impressions 1. Normal left ventricular chamber size. Calculated left ventricular ejection fraction 53%. ??No regional wall motion abnormalities. 2. Moderately-severely increased concent manoj left ventricular wall thickness. Left ventricular mass index by 2D 183 g/m2. 3. Global averaged left ventricular long itudinal peak systolic strain is abnormal at -12% (normal = more negative than -18%). Apical sparing pattern. 4. Grade 1a/3 left ventricular diastolic dysfunction, consistent with mildly elevated left ventricular filling pressure. 5. Normal right ventricular chamber size with borderline reduced systolic function. 6. Unable to detect peak tricuspid regur gitation velocity for pulmonary artery systolic pressure calculation. 7. Mild mitral valve regurgitation , tri vial tricuspid valve regurgitation. 8. Normal inferior vena cava size with n ormal inspiratory collapse (>50%). 9. No ??pericardial effusion. 10. Compared to the report of 04/18/2021 the following changes have occurred: There has been significant improvement of biventricular size and biventricular systolic function. ??Global average left vent ricular strain is improved. Mitral and t ricuspid valve regurgitation are also significant ly less. ??Unable to detect peak TR velocity for pulmonary artery systolic pressure calculation. ??Side by side comparison of images performed. Comments Increased concentric left ventricular wa ll thickness: ??differential includes infiltrative cardiomyopathy or end-stage renal disease. Procedure Note Sonya Adams M.D., Ph.D. - 2 For the complete report, see the Order-L evel Documents. Final Impressions 1. Normal left ventricular chamber size. Calculated left ventricular ejection fraction 53%. No regional wall motion abnormalities. 2. Moderately-severely increased concent manoj left ventricular wall thickness. Left ventricular mass index by 2D 183 g/m2. 3. Global averaged left ventricular long itudinal peak systolic strain is abnormal at -12% (normal = more negative than -18%). Apical sparing pattern. 4. Grade 1a/3 left ventricular diastolic dysfunction, consistent with mildly elevated left ventricular filling pressure. 5. Normal right ventricular chamber size with borderline reduced systolic function. 6. Unable to detect peak tricuspid regur gitation velocity for pulmonary artery systolic pressure calculation. 7. Mild mitral valve regurgitation , tri vial tricuspid valve regurgitation. 8. Normal inferior vena cava size with n ormal inspiratory collapse (>50%). 9. No pericardial effusion. 10. Compared to the report of 04/18/2021 the following changes have occurred: There has been significant improvement of biventricular size and biventricular systolic function. Global average left ventricular strain is improved. Mitral and tricuspid valve regurgitation are also significantly less. Unable to detect peak TR velocity for pulmonary artery systolic pressure calculation. Side by side comparison of images performed. Comments Increased concentric left ventricular wa ll thickness: differential includes infiltrative cardiomyopathy or end-stage renal disease. Findings Echocardiogram performed per left ventri cular function protocol. Last full echocardiogram performed 04/18/2021. LEFT VENTRICLE:Normal left ventricular c hamber size. Moderately-severely increased concentric left ventricular wall thickness. Left ventricular mass index by 2D 183 g/m2. Prominent left ventricular trabeculations. Calculated 2-D linear left ventricular e jection fraction 53%. No regional wall motion abnormalities. Global averaged left ventricular longitudinal peak systolic strain is abnormal at -12% (normal = more negative than -18%). Grade 1a/3 left ventricular diast olic dysfunction, consistent with mildly elevated left ventricular filling pressure. RIGHT VENTRICLE:Normal right ventricular chamber size. Borderline reduced right ventricular systolic function. Unable to detect peak tricuspid regurgitation velocity for pulmonary artery systolic pressure calculation. ATRIA:Enlarged left atrial size by visua l estimate. Normal right atrial size. CARDIAC VALVES:Sclerotic aortic valve. T rivial aortic valve regurgitation. Thickened mitral valve. Calcified mitral annulus. Mild mitral valve regurgitation. Thickened tricuspid valve. Trivial tricuspid valve regurgitation. OTHER ECHO FINDINGS:Normal inferior vena cava size with normal inspiratory collapse (>50%). No intracardiac mass or thrombus, but the left atrial appendage cannot be visualized adequately with transthoracic echo to exclude thrombus in this location. Infus ion catheter visualized in the RA. No pericardial effusion. For the complete report, see the Order-L evel Documents. Clark Rojo M.D. CV ECHO PROCEDURES documented in this encounter Visit Diagnoses Diagnosis Failure Heart (HCC) - Primary Failure Heart (HCC) Failure Heart (HCC) documented in this encounter
--- OUTSIDE RECORDS SUMMARY | 2022-04-25 13:45 | XMS_ITS | Encounter Summary ---
:1940 Author Organization [facility] Address [address] [place] [address] Care Team Providers Name Role Phone Unavailable Primary Care Provider Unavailable Reason for Referral Outpatient (Routine) - Authorized Specialty Diagnoses / Procedures Referred By Contact Refer red To Contact Diagnoses Acute On Chronic Systolic (Congestive) Heart Failure (HCC) Cheyenne Andino M.D., M.B.A. [facility] Procedures NM Cardiac Amyloid PYP SPECT CT [address] [place] [address] Referral ID Status Reason Start Date Expiration Date Visits V isits Requested Authorized [id number] Authorized 08/22/2021 08/22/2022 6 6 Reason for Visit Outpatient (Routine) - Authorized Specialty Diagnoses / Procedures Referred By Contact Refer red To Contact Diagnoses Acute On Chronic Systolic (Congestive) Heart Failure (HCC) Cheyenne Andino M.D., M.B.A. [facility] Procedures NM Cardiac Amyloid PYP SPECT CT [address] [place], [place] [address] Referral ID Status Reason Start Date Expiration Date Visits V isits Requested Authorized [id number] Authorized 08/22/2021 08/22/2022 6 6 Encounter Details Date Type Department Care Team Description 09/19/2021 Hospital Encounter Department of Cheyenne Andino Acute On Chronic Radiology, John Joya, M.B.A. Systolic (Congestive) Building, in [address] [facility] Heart Failure (HCC) [place], [place] [address] [facility] [address] [place], [place] [phone] (Work) [phone] Social History Tobacco Use Types Packs/Day Years Used Date Smoking Tobacco: Light Smoker Cigars Smokeless Tobacco: Former Qu it: 06/21/2008 Comments: A few puffs a day Sex Assigned at Date Recorded Not on file documented as of this encounter Medications at Time of Discharge Medication Sig Dispensed Refills Start Date End Date calcitRIOL (ROCALTROL) Take 0.25 mcg by 0 0.25 mcg capsule mouth daily. calcium acetate,phosphat Take 667 mg by mouth 0 bind, (PHOSLO) 667 mg (169 3 (three) times a day mg calcium) capsule with meals. omeprazole (PriLOSEC) 20 Take by mouth daily. 0 0 09/06/[address] capsule documented as of this encounter Plan of Treatment Not on filedocumented as of this encounter Procedures Procedure Name Priority Date/Time Associated Comments Diagnosis NM CARDIAC RAD - Routine 09/19/2021 1:40 Acute On Chronic Results for this AMYLOID PYP SPECT (most inpatients PM CDT Systolic proced ure are in CT and all (Congestive) the results outpatients) Heart Failure section. (HCC) documented in this encounter Results NM Cardiac Amyloid PYP SPECT CT (09/19/2021 1:40 PM CDT) Specimen (Source) Anatomical Collection Method Collection Time Re ceived Time Location / / Volume Laterality 09/19/2021 12:22 PM CDT Narrative CV MERGE - 09/19/2021 4:11 PM CDT This result has an attachment that is no t available. See PDF For Result Procedure Note Luis F Turner M.D. - 09/19/2021Formatt ing of this note might be different from the original. See PDF For Result Cheyenne Andino M.D., M.B.A. [facility] [place] PROCEDURES Performing Organization Address City/State/ZIP Code Phon e Number CV MERGE CV MERGE NA documented in this encounter Visit Diagnoses Diagnosis Acute On Chronic Systolic (Congestive) H eart Failure (HCC) documented in this encounter Administered Medications Inactive Administered Medications - up to 3 most recent administrations Medication Order MAR Action Action Date Dose Rate Site technetium Tc 99m Given 09/19/2021 21.3 millicuries L eft Antecubital pyrophosphate 10:00 AM CDT injection (Tc-99m PYP) 21.3 millicurie, intravenous, Once, On Sat09/19/21 at 1015, For 1 dose documented in this encounter
--- OUTSIDE RECORDS SUMMARY | 2022-04-25 13:45 | XMS_ITS | Encounter Summary ---
:1940 Author Organization [facility] Address [address] [place] [address] Care Team Providers Name Role Phone Unavailable Primary Care Provider Unavailable Encounter Details Date Type Department Care Team Description 08/22/2021 Hospital Encounter Department of Timi, Failure Heart ([facility]ER[facility]) Laboratory Medicine Mahnaz Rodas and Pathology, [address], in [place], [place] [address] [place] [address] [place], [place] (Work) [phone] Social History Tobacco Use Types Packs/Day Years Used Date Smoking Tobacco: Every Day Cigars Smokeless Tobacco: Former Qu it: 06/21/2008 Comments: A few puffs a day Sex Assigned at Date Recorded Not on file documented as of this encounter Medications at Time of Discharge Medication Sig Dispensed Refills Start Date End Date calcitRIOL (ROCALTROL) Take 0.25 mcg by 0 0.25 mcg capsule mouth daily. calcium acetate,phosphat Take 667 mg by mouth 0 bind, (PHOSLO) 667 mg 3 (three) times a day (169 mg calcium) capsule with meals. escitalopram (LEXAPRO) 5 Take 5 mg by mouth 0 09/19/2021 mg tablet daily. furosemide (LASIX) 80 mg Take 1 tablet (80 mg 60 tablet 0 1 09/19/2021 tablet total) by mouth 2 (two) times a day. Follow-up with Nephrology for additional refills. metoprolol succinate Take 0.5 tablets 15 tablet 0 09/19/2021 (TOPROL-XL) 25 mg 24 hr (12.5 mg total) by tablet mouth daily. Do not crush or chew. Please follow-up with primary care provider for additional refills. documented as of this encounter Plan of Treatment Not on filedocumented as of this encounter Procedures Procedure Name Priority Date/Time Associated Comments Diagnosis LIPID PANEL, S Routine 08/22/2021 7:16 Failure Heart Results f or this AM COPY CENTER OPERATOR ([facility]) procedure are i n the results section. NT-PRO B-TYPE Routine 08/22/2021 7:16 Failure Heart Results fo r this NATRIURETIC PEPTIDE AM COPY CENTER OPERATOR ([facility]) procedur e are in (BNP), S the results section. CBC WITH DIFFERENTIAL, B Routine 08/22/2021 7:16 Failure Heart Results for this AM COPY CENTER OPERATOR ([facility]) procedure are i n the results section. BUN (BLOOD UREA Routine 08/22/2021 7:16 Failure Heart Results for this NITROGEN), S/P AM COPY CENTER OPERATOR ([facility]) procedure are in the results section. ASPARTATE Routine 08/22/2021 7:16 Failure Heart Results for this AMINOTRANSFERASE (AST), AM COPY CENTER OPERATOR ([facility]) proc edure are in S/P the results section. THYROID-STIMULATING Routine 08/22/2021 7:16 Failure Heart Resu lts for this HORMONE-SENSITIVE AM COPY CENTER OPERATOR ([facility]) procedure are in (S-TSH) the results section. SODIUM, S/P Routine 08/22/2021 7:16 Failure Heart Results for this AM COPY CENTER OPERATOR ([facility]) procedure are i n the results section. POTASSIUM, S/P Routine 08/22/2021 7:16 Failure Heart Results f or this AM COPY CENTER OPERATOR ([facility]) procedure are i n the results section. GLUCOSE, FASTING, S/P Routine 08/22/2021 7:16 Failure Heart Re sults for this AM COPY CENTER OPERATOR ([facility]) procedure are i n the results section. CREATININE WITH EGFR, Routine 08/22/2021 7:16 Failure Heart Re sults for this S/P AM COPY CENTER OPERATOR ([facility]) procedure are i n the results section. BICARBONATE, B/S/P Routine 08/22/2021 7:16 Failure Heart Resul ts for this AM COPY CENTER OPERATOR ([facility]) procedure are i n the results section. documented in this encounter Results (ABNORMAL) NT-Pro B-Type Natriuretic Peptide (BNP) (08/22/2021 7:16 AM COPY CENTER OPERATOR) athologist Signature NT-Pro BNP >04797 (H) <=239 08/22/2021 DTL pg/mL 8:56 AM COPY CENTER OPERATOR Comment: NT-proBNP values less than 300 pg/mL [...] (Blood, 08/22/2021 7:16 AM 08/22/19 7:57 Venous) COPY CENTER OPERATOR AM COPY CENTER OPERATOR Clark Rojo M.D. LAB BLOOD ADD-ON Performing Organization Address City/[facility] Phon e Number [facility] - [address] [place], [place] [address] [place] [address] [place] [address] Potassium (08/22/2021 7:16 AM COPY CENTER OPERATOR) [facility] Potassium, S 4.5 3.6 - 5.2 08/22/2021 DTL mmol/L 8:36 AM COPY CENTER OPERATOR Specimen Anatomical Collection Method Collection Time Receive d Time (Source) Location / / Volume Laterality Blood (Blood, 08/22/2021 7:16 AM 08/22/19 7:57 Venous) COPY CENTER OPERATOR AM COPY CENTER OPERATOR Clark Rojo M.D. LAB BLOOD ADD-ON Performing Organization Address City/State/[facility] Phon e Number [facility] - [address] [place], [place] [address] [place] [address] [facility] [address] Bicarbonate (08/22/2021 7:16 AM COPY CENTER OPERATOR) athologist [facility] Bicarbonate, S 25 22 - 29 08/22/2021 DTL mmol/L 8:36 AM COPY CENTER OPERATOR Specimen Anatomical Collection Method Collection Time Receive d Time (Source) Location / / Volume Laterality Blood (Blood, 08/22/2021 7:16 AM 08/22/19 7:57 Venous) COPY CENTER OPERATOR AM COPY CENTER OPERATOR Clark Rojo M.D. LAB BLOOD ADD-ON Performing Organization Address City/State/ZIP [facility] Phon e Number [facility] - [address] [place] [address] Laboratories-[address] S-TSH (Thyroid-Stimulating Hormone - Sensitive) (08/22/2021 7:16 AM COPY CENTER OPERATOR) P athologist Signature TSH, Sensitive 1.3 0.3 - 4.2 08/22/2021 DTL mIU/L 8:35 AM COPY CENTER OPERATOR Specimen Anatomical Collection Method Collection Time Receive d Time (Source) Location / / Volume Laterality Blood (Blood, 08/22/2021 7:16 AM 08/22/19 7:57 Venous) COPY CENTER OPERATOR AM COPY CENTER OPERATOR Clark Rojo M.D. LAB BLOOD ADD-ON Performing Organization Address [facility] Phon e Number [facility] - [address] [place] [address] [place] [address] Laboratories-[address] (ABNORMAL) CBC with Differential, Blood (08/22/2021 7:16 AM COPY CENTER OPERATOR) Patholo gist Method Time Signature Hemoglobin 10.2 (L) 11.6 - 08/22/2021 DTL 15.0 g/dL 7:54 AM COPY CENTER OPERATOR Hematocrit 30.4 (L) 35.5 - 08/22/2021 DTL 44.9 % 7:54 AM COPY CENTER OPERATOR Erythrocytes 3.63 (L) 3.92 - 08/22/2021 DTL 5.13 7:54 AM COPY CENTER OPERATOR x10(12)/L MCV 83.7 78.2 - 08/22/2021 DTL 97.9 fL 7:54 AM COPY CENTER OPERATOR RBC Distrib Width 16.5 (H) 12.2 - 08/22/2021 DTL 16.1 % 7:54 AM COPY CENTER OPERATOR Platelet Count 306 157 - 371 08/22/2021 DTL x10(9)/L 7:54 AM COPY CENTER OPERATOR Leukocytes 6.2 3.4 - 9.6 08/22/2021 DTL x10(9)/L 7:54 AM COPY CENTER OPERATOR Neutrophils 3.85 1.56 - 08/22/2021 DTL 6.45 7:54 AM COPY CENTER OPERATOR x10(9)/L Lymphocytes 1.43 0.95 - 08/22/2021 DTL 3.07 7:54 AM COPY CENTER OPERATOR x10(9)/L Monocytes 0.67 0.26 - 08/22/2021 DTL 0.81 7:54 AM COPY CENTER OPERATOR x10(9)/L Eosinophils 0.15 0.03 - 08/22/2021 DTL 0.48 7:54 AM COPY CENTER OPERATOR x10(9)/L Basophils 0.08 0.01 - 08/22/2021 DTL 0.08 7:54 AM COPY CENTER OPERATOR x10(9)/L Specimen Anatomical Collection Method Collection Time Receive d Time (Source) Location / / Volume Laterality Blood (Blood, 08/22/2021 7:16 AM 08/22/19 7:40 Venous) COPY CENTER OPERATOR AM COPY CENTER OPERATOR Clark Rojo M.D. LAB BLOOD ADD-ON Performing Organization Address City/State/ZIP Code Phon e Number [facility] - [address] [place] [address] [facility] [place] [address] Laboratories-[facility] 200 [facility] (ABNORMAL) Lipid Panel (08/22/2021 7:16 AM COPY CENTER OPERATOR) athologist Signature Cholesterol, 218 (H) mg/dL 08/22/2021 DTL Total 8:35 AM COPY CENTER OPERATOR Comment: ----REFERENCE VALUE---- Desirable: < 200 Borderline high: 200 - 239 High: > or = 240 Triglycerides 75 mg/dL 08/22/2021 8:35 AM COPY CENTER OPERATOR DTL Comment: ----REFERENCE VALUE---- Normal: <150 Borderline high: 150-199 High: 200-499 Very high: > or =500 Cholesterol, HDL, S 73 >=50 mg/dL 08/22/2021 8:35 AM COPY CENTER OPERATOR DTL Calculated LDL 130 (H) mg/dL 08/22/2021 8:35 AM COPY CENTER OPERATOR DT L Comment: ----REFERENCE VALUE---- Desirable: <100 mg/dL Above Desirable: 100-129 mg/dL Borderline High: 130-159 mg/dL High: 160-189 mg/dL Very High: >=190 mg/dL Cholesterol, Non-HDL, Calculated 145 mg/dL 022 8:35 AM COPY CENTER OPERATOR DTL Comment: ----REFERENCE VALUE---- Desirable: <130 Above Desirable: 130-159 Borderline high: 160-189 High: 190-219 Very high: > or =220 Specimen Anatomical Collection Method Collection Time Receive d Time (Source) Location / / Volume Laterality Blood (Blood, 08/22/2021 7:16 AM 08/22/19 7:57 Venous) COPY CENTER OPERATOR AM COPY CENTER OPERATOR Clark Rojo M.D. LAB BLOOD ADD-ON Performing Organization Address City/[facility]/ZIP [facility] Phon e Number [facility] - [address] (ABNORMAL) BUN (Blood Urea Nitrogen) (08/22/2021 7:16 AM COPY CENTER OPERATOR) P athologist Signature BUN (Blood Urea 42 (H) 6 - 21 08/22/2021 DTL Nitrogen), S mg/dL 8:36 AM COPY CENTER OPERATOR Specimen Anatomical Collection Method Collection Time Receive d Time (Source) Location / / Volume Laterality Blood (Blood, 08/22/2021 7:16 AM 08/22/19 7:57 Venous) COPY CENTER OPERATOR AM COPY CENTER OPERATOR Clark Rojo M.D. LAB BLOOD ADD-ON Performing Organization Address City/[facility]/ZIP Code Phon e Number [facility] - [address] [address] [facility]-[address] AST (Aspartate Aminotransferase) (08/22/2021 7:16 AM COPY CENTER OPERATOR) Patholo gist Method Time Signature Aspartate 21 8 - 43 08/22/2021 DTL Aminotransferase U/L 8:36 AM COPY CENTER OPERATOR (AST), S Specimen Anatomical Collection Method Collection Time Receive d Time (Source) Location / / Volume Laterality Blood (Blood, 08/22/2021 7:16 AM 08/22/19 7:57 Venous) COPY CENTER OPERATOR AM COPY CENTER OPERATOR Clark Rojo M.D. LAB BLOOD ADD-ON Performing Organization Address City/[facility]/ZIP Code Phon e Number [facility] - [address] [place], [place] [address] [place] [address] [facility] [address] (ABNORMAL) Creatinine with Estimated GFR (08/22/2021 7:16 AM COPY CENTER OPERATOR) Analysis Performed At Patho logist Time Signature Creatinine 6.02 (H) 0.59 - 08/22/2021 DTL 1.04 mg/dL 8:35 AM COPY CENTER OPERATOR eGFR-Non <15 (L) >=60 08/22/2021 DTL Black/ mL/min/BSA 8:35 AM COPY CENTER OPERATOR Spanish Comment: ----ADDITIONAL INFORMATION---- Estimated GFR calculated using the 2009 CKD_EPI creatinine equation. eGFR-Black/ <15 (L) >=60 mL/min/BSA 2021 8:35 AM COPY CENTER OPERATOR DTL Comment: ----ADDITIONAL INFORMATION---- Estimated GFR calculated using the 2009 CKD_EPI creatinine equation. Specimen Anatomical Collection Method Collection Time Receive d Time (Source) Location / / Volume Laterality Blood (Blood, 08/22/2021 7:16 AM 08/22/19 7:57 Venous) COPY CENTER OPERATOR AM COPY CENTER OPERATOR Clark Rojo M.D. LAB BLOOD ADD-ON Performing Organization Address City/State/ZIP Code Phon e Number [facility] - [address] [address] [facility] [address] Glucose, Fasting (08/22/2021 7:16 AM COPY CENTER OPERATOR) P athologist Signature Glucose, P 83 70 - 100 08/22/2021 DTL mg/dL 8:10 AM COPY CENTER OPERATOR Last Intake 12 hr 08/22/2021 DTL 7:57 AM COPY CENTER OPERATOR Specimen Anatomical Collection Method Collection Time Receive d Time (Source) Location / / Volume Laterality Blood (Blood, 08/22/2021 7:16 AM 08/22/19 7:57 Venous) COPY CENTER OPERATOR AM COPY CENTER OPERATOR Clark Rojo M.D. LAB BLOOD NON ADD-ON Performing Organization Address City/State/ZIP Code Phon e Number [facility] - [address] [place], [place] [address] [facility] [place] [address] [facility] [address] Sodium (08/22/2021 7:16 AM COPY CENTER OPERATOR) P athologist Signature Sodium, S 141 135 - 145 08/22/2021 8:36 DTL mmol/L AM COPY CENTER OPERATOR Specimen Anatomical Collection Method Collection Time Receive d Time (Source) Location / / Volume Laterality Blood (Blood, 08/22/2021 7:16 AM 08/22/19 7:57 Venous) COPY CENTER OPERATOR AM COPY CENTER OPERATOR Clark Rojo M.D. LAB BLOOD ADD-ON Performing Organization Address City/State/ZIP Code Phon e Number [facility] - [address] [place], [place] [address] [facility] [place] [address] Laboratories-[facility] [address] documented in this encounter Visit Diagnoses Diagnosis Failure Heart (HCC) documented in this encounter
--- OUTSIDE RECORDS SUMMARY | 2022-04-25 13:45 | XMS_ITS | Encounter Summary ---
:1940 Author Organization [facility] Address [address] [place] [address] Care Team Providers Name Role Phone Unavailable Primary Care Provider Unavailable Reason for Visit Outpatient (Routine) - Closed Specialty Diagnoses / Procedures Referred By Contact Refer red To Contact Cardiovascular Disease Cheyenne Andino M.D., [facility] Rachel M.B.A. [address] [place] [phone] Referral ID Status Reason Start Date Expiration Date Visits Requ ested Visits Authorized [id number] Closed 08/22/2021 08/22/2022 1 1 Encounter Details Date Type Department Care Team Description 09/19/2021 Office Visit Department of Cheyenne Andino Acute On Chron ic Systolic (Congestive) Heart Failure (HCC) (Primary Dx); Cardiovascular Medicine Mahnaz, M. B.A. 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 [address] [place] [address] [place] [phone] Social History Tobacco Use Types Packs/Day Years Used Date Smoking Tobacco: Light Smoker Cigars Smokeless Tobacco: Former Qu it: 06/21/2008 Comments: A few puffs a day Sex Assigned at Date Recorded Not on file documented as of this encounter Last Filed Vital Signs Vital Sign Reading Time Taken Comments Blood Pressure 173/78 09/19/2021 4:27 PM CDT Pulse 82 09/19/2021 4:27 PM CDT Temperature - - Respiratory Rate - - Oxygen Saturation - - Inhaled Oxygen Concentration - - Weight 49.5 kg (109 lb 0.3 oz) 09/19/2021 4:27 PM CDT Height 156.2 cm (5' 1.5) 09/19/2021 4:27 PM CDT Body Mass Index 20.27 09/19/2021 4:27 PM CDT documented in this encounter Progress Notes Cheyenne Andino M.D., M.B.A. - 09/19/2021 4:30 PM CDT Heart failure Clinic Results Note HISTORY OF PRESENT ILLNESS Ms. Zamzam Garibay returns for follow up. ASSESSMENT / PLAN #1 Acute On Chronic Systolic (Congestive) Heart Failure (HCC) #2 Increased concentric wall thickening of the left ventricle #3 End-stage renal disease on hemodialysis #4 Hypertension The PYP study is negative. Although the fat aspirate is still pending I suspect that the changes in her echo most likely represent those of end-stage renal disease and longstanding hypertension. She is quite hypertensive today but she tells me she ran out of the metoprolol sometime ago. She could also increase lisinopril although I worry about hypotension on dialysis days. She already notes some orthopnea paroxysmal nocturnal dyspnea and had been coughing up some frothy foam. The cough was att ributed to GERD and she was prescribed omeprazole but has not noted much improvement. She wonders ifshe could go back to taking 80 mg twice daily of Lasix. I think it is reasonable to try the higher dose of Lasix although it is not clear how much urine output she has and whether this will truly contribute to lowering her blood pressure and filling pressures especially on non dialysis days. Regardless, she seems to be feeling quite well. I will be in contact with her with the results of her fat aspirate. Although her PYP was negative it did show extensive coronary calcifications. We talked about symptoms of coronary artery disease and she is asymptomatic, without chest pain. She knows that she should contact me if she does develop angina. Cheyenne Andino M.D., M.B.A. 09/19/21 documented in this encounter Plan of Treatment Not on filedocumented as of this encounter Visit Diagnoses Diagnosis Acute On Chronic Systolic (Congestive) H eart Failure (HCC) - Primary Hypertension And End Stage Renal Disease (HCC) documented in this encounter
--- OUTSIDE RECORDS SUMMARY | 2022-04-25 13:45 | XMS_ITS | Encounter Summary ---
:1940 Author Organization [facility] Address [address] [place] [address] Care Team Providers Name Role Phone Unavailable Primary Care Provider Unavailable Reason for Referral Outpatient (Routine) - Closed Specialty Diagnoses / Procedures Referred By Contact Refer red To Contact Cardiovascular Disease Cheyenne Andino M.D., [facility] M.B.A. [address] [place] [address] Referral ID Status Reason Start Date Expiration Date Visits Requ ested Visits Authorized [id number] Closed 08/22/2021 08/22/2022 1 1 [employer]ED CLUB MANAGER Outpatient (Routine) - Closed Specialty Diagnoses / Procedures Referred By Contact Refer red To Contact Diagnoses Acute On Chronic Systolic (Congestive) Heart Failure (HCC) Cheyenne Andino M.D., M.B.A. [facility] Procedures Fat Aspirate 200 [place] [address] Referral ID Status Reason Start Date Expiration Date Visits Requ ested Visits Authorized [id number] Closed 08/22/2021 08/22/2022 1 1 NSED CLUB MANAGER Outpatient (Routine) - Authorized Specialty Diagnoses / Procedures Referred By Contact Refer red To Contact Diagnoses Acute On Chronic Systolic (Congestive) Heart Failure (HCC) Cheyenne Andino M.D., M.B.A. [facility] Procedures NM Cardiac Amyloid PYP SPECT CT [address] [place], [place] [address] Referral ID Status Reason Start Date Expiration Date Visits V isits Requested Authorized [id number] Authorized 08/22/2021 08/22/2022 6 6 NSED CLUB MANAGER Reason for Visit Outpatient (Routine) - Closed Specialty Diagnoses / Referred By Contact Referred To Contact Procedures Cardiovascular Diseases / Diagnoses Acute On Chronic Systolic (Congestive) Heart Failure (HCC) [facility] Cardiovascular Disease Chantelle Zapata APRN, C.N.P., D.N.P. [address] [place], [place] [id number] Referral ID Status Reason Start Date Expiration Date Visits Requ ested Visits Authorized [id number] Closed 04/20/2021 04/20/2022 1 1 Encounter Details Date Type Department Care Team Description 08/22/2021 Comprehensive Visit Department of Cheyenne Andino, Acute O n Chronic Cardiovascular Medicine Mahnaz, M. B.A. Systolic in [facility] jojo [address] (Congestive) Heart [address] [facility] Failure (HCC) [address] [phone] [place] [address] Social History Tobacco Use Types Packs/Day Years Used Date Smoking Tobacco: Every Day Cigars Smokeless Tobacco: Former Qu it: 06/21/2008 Comments: A few puffs a day Sex Assigned at Date Recorded Not on file documented as of this encounter Last Filed Vital Signs Vital Sign Reading Time Taken Comments Blood Pressure 161/81 08/22/2021 1:32 PM LICENSED [employer]UB MANAGER Pulse 75 08/22/2021 1:32 PM LICENSED CLUB MANAGER Temperature - - Respiratory Rate - - Oxygen Saturation - - Inhaled Oxygen Concentration - - Weight - - Height - - Body Mass Index - - documented in this encounter Consult Notes Cheyenne Andino M.D., M.B.A. - 08/22/2021 2:00 PM CST Heart Failure Clinic Note CHIEF COMPLAINT/REASON FOR CONSULT HF HISTORY OF PRESENT ILLNESS Ms. Zamzam Garibay is a 80 y.o. female referred to the Heart Failure Clinic for newly diagnosed heartfailure with reduced ejection fraction. She has end-stage renal disease on hemodialysis, hypertension, nicotine dependence, and depression. She presented to the [facility] in March with shortness of breath and was found to have an ejection fraction of 25%, mild mitral regurgitation, right ventricular dysfunction. She improved with dialysis and medical therapy was initiated with low-dose lisinopril and metoprololsuccinate. Her son reports 1 further episode where she presented with sudden-onset shortness of breath after the initial presentation March, and was transferred to [facility], where she again improved withdialysis. Following this episode she had COVID-19 infection. Prior to this she had received her COVID vaccinations with the last dose in September. 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 She reports presenting with sudden-onset shortness of breath in July 2018 and was diagnosed with kidney disease at that time. She does not recall the details. She believes that she was probably hypertensive but had not been treated. In January, she was again admitted with shortness of breath and initiated dialysis. More recently, her son brought her to live with him in [place], but she is planning to move back to [place] in the summer. Her mother had a stroke later in life and her father had a myocardial infarction also later in life.She is not aware of any history of early coronary atherosclerosis, sudden cardiac , dilated cardiomyopathy, congenital heart disease in the family. She had 10 siblings, her 6 brothers are , most in their late 60s or 70s, none of heart disease. She complains of some right-sided arch pain as well as pain in her right arm that she attributes to her dialysis catheter. She does not describe any exertional chest or arm pain. Currently, she feels well and denies any shortness of breath or chest pain. Stage of HF: C NYHA class: 2 Devices: none EF: 53 PAST MEDICAL, SURGICAL, SOCIAL AND FAMILY HISTORY No past medical history on file. FAMILY HISTORY No family history on file. Review of systems negative apart from those indicated in the HPI. MEDICATIONS Current Outpatient Medications: ??? calcitRIOL (ROCALTROL) 0.25 mcg capsule, Take 0.25 mcg by mouth daily., Disp: , Rfl: ??? calcium acetate,phosphat bind, (PHOSLO) 667 mg (169 mg calcium) capsule, Take 667 mg by mouth 3 (three) times a day with meals. , Disp: , Rfl: ??? escitalopram (LEXAPRO) 5 mg tablet, Take 5 mg by mouth daily., Disp: , Rfl: ??? furosemide (LASIX) 80 mg tablet, Take 1 tablet (80 mg total) by mouth 2 (two) times a day. Follow-up with Nephrology for additional refills., Disp: 60 tablet, Rfl: 0 ??? lisinopriL (PRINIVIL,ZESTRIL) 2.5 mg tablet, Take 1 tablet (2.5 mg total) by mouth daily. Follow-up with PCP for additional refills., Disp: 30 tablet, Rfl: 0 ??? metoprolol succinate (TOPROL-XL) 25 mg 24 hr tablet, Take 0.5 tablets (12.5 mg total) by mouth daily. Do not crush or chew. Please follow-up with primary care provider for additional refills., Disp: 15 tablet, Rfl: 0 ??? multivitamin renal failure (DIALYVITE) 100-1 mg tablet, Take 1 tablet by mouth daily. Take afterdialysis on dialysis days. Follow-up with dialysis center for additional refills., Disp: 30 tablet, Rfl: 0 REVIEW OF SYSTEMS Pertinent items are noted in HPI; all other review of systems was negative. OBJECTIVE There were no vitals filed for this visit. ALLERGIES No Known Allergies PHYSICAL EXAMINATION General: No acute distress HEENT: Normocephalic Skin: No rashes Vessels: Distended external jugular Heart: Regular rate and rhythm, systolic ejection murmur right upper sternal border radiating to theright neck Lungs: Clear to auscultation Abdomen: Soft and nontender Extremities: Trace edema Musculoskeletal: Mildly impaired gait DIAGNOSTICS Recent Results (from the past 72 hour(s)) Sodium Collection Time: 08/22/21 7:16 AM Result Value Sodium, S 141 Glucose, Fasting Collection Time: 08/22/21 7:16 AM Result Value Glucose, P 83 Last Intake 12 Creatinine with Estimated GFR Collection Time: 08/22/21 7:16 AM Result Value Creatinine, S 6.02 (H) eGFR-Non Black/ <15 (L) eGFR-Black/ <15 (L) AST (Aspartate Aminotransferase) Collection Time: 08/22/21 7:16 AM Result Value Aspartate Aminotransferase (AST), S 21 BUN (Blood Urea Nitrogen) Collection Time: 08/22/21 7:16 AM Result Value BUN (Blood Urea Nitrogen), S 42 (H) Lipid Panel Collection Time: 08/22/21 7:16 AM Result Value Cholesterol, Total, S 218 (H) Triglycerides, S 75 Cholesterol, HDL, S 73 Calculated LDL 130 (H) Non HDL Cholesterol 145 CBC with Differential, Blood Collection Time: 08/22/21 7:16 AM Result Value Hemoglobin 10.2 (L) Hematocrit 30.4 (L) Erythrocytes 3.63 (L) MCV 83.7 RBC Distrib Width 16.5 (H) Platelet Count 306 Leukocytes 6.2 Neutrophils 3.85 Lymphocytes 1.43 Monocytes 0.67 Eosinophils 0.15 Basophils 0.08 S-TSH (Thyroid-Stimulating Hormone - Sensitive) Collection Time: 08/22/21 7:16 AM Result Value TSH, Sensitive, S 1.3 Bicarbonate Collection Time: 08/22/21 7:16 AM Result Value Bicarbonate, S 25 Potassium Collection Time: 08/22/21 7:16 AM Result Value Potassium, S 4.5 NT-Pro B-Type Natriuretic Peptide (BNP) Collection Time: 08/22/21 7:16 AM Result Value NT-Pro BNP, S >64201 (H) ASSESSMENT / PLAN #1 Acute On Chronic Systolic (Congestive) Heart Failure (HCC) #2 Increased concentric wall thickening of the left ventricle #3 End-stage renal disease on hemodialysis #4 Hypertension Remarkably, she has had recovery of LV function, with normalization of her LV size. I agree, that the 2D findings and strain findings are suspicious for amyloid heart disease or specifically for infiltrative disease, but the recovery of LV systolic function is highly unusual in the circumstance. Her blood pressure at the time of the last echo was lower than it is today. The LV dysfunction could have represented some stress-induced cardiomyopathy that has now resolved. We discussed the findings on her echo which I suspect are most likely a consequence of longstanding hypertension and end-stage renal disease. However, I do think that it would be important to exclude transthyretin amyloidosis, especially hereditary amyloidosis. We discussed the prevalence of hereditary amyloidosis and black Americans, and the potential implications for her family members should she test positive for hereditary amyloidosis. We also discussed targeted therapies including TTR stabilizers and silencers. We will arrange for testing for TTR amyloidosis and I will discuss results with her when available. I asked her to increase her metoprolol succinate to 50 mg daily. I did note her LDL cholesterol of 130 but excellent HDL cholesterol. I personally spent over 60 minutes reviewing records, testing, discussion and face to face follow up. Cheyenne Andino M.D., M.B.A. 08/22/21 NSED CLUB MANAGER documented in this encounter Plan of Treatment Scheduled Referrals Name Type Priority Associated Order Schedule Diagnoses Cardiovascular Disease Outpatient Routine 1 [facility] office visit (clinic) Referral starti ng 08/22/2021 unti l 11/19/2022 documented as of this encounter Results OR FNA BX WO IMG 1ST LESION, HC FNA BX WO IMG 1ST LESION (09/19/2021 2:27 PM CDT) Narrative Sj Bird R.N. - 09/19/2021 2:27 PM CDT Sj Bird R.N. ? 09/19/2021 ??2:28 PM Fat Aspirate Date/Time: 09/19/2021 2:27 PM Performed by: jS Bird R.N. Authorized by: Cheyenne Andino M.D., M.B.A. Care team members present 1. Sj Bird R.N. PROCEDURE DETAILS Procedure: ??Fat aspirate Fat aspirate Location: ??Right abdominal wall and lef t abdominal wall Needle size (gauge): ??18 # Slides obtained: ??4 Aspirate volume (mL): ??0.5 CONSENT Consent obtained: written UNIVERSAL PROTOCOL All relevant documentation and testing w ere reviewed and available. All required blood products, implants, devic es and or special equipment were made available as applicable. Pre-proced ure verification was conducted and the correct site was marked if required. A fire risk assessment was done as applicable. The procedural time-out w as conducted prior to performing the procedure and confirmed in a procedu ral pause. PRE-PROCEDURE DETAILS Appropriate hand hygiene, gown, cap, mas k, protective eyewear, sterile gloves, skin preparation, sterile drape, and strict aseptic technique were utilized as applicable for the procedure .: yes ?? Site preparation: alcohol SEDATION / ANESTHESIA Anesthesia method: local infiltration Local infiltrate type: lidocaine POST-PROCEDURE DETAILS Procedure completed successfully: yes ?? Procedure tolorated: ??Well Complications: no apparent complications ?? Post-procedure instructions: ??Post-proc edure activity instructions provided COMMENTS Lidocaine 1% 10 mg. Cheyenne Andino M.D., M.B.A. PROCEDURE/MINOR SURGICAL ORD ERABLES NM Cardiac Amyloid PYP SPECT CT (09/19/2021 [...] PDF For Result Cheyenne Andino M.D., M.B.A. IMG NM PROCEDURES Performing Organization Address City/State/ZIP Code Phon e Number CV MERGE CV MERGE NA TTR Gene, Full Gene Analysis (09/19/2021 11:56 AM CDT) Component Value Ref Test Analysis Performed At [facility] Range Method Time Signature Result Summary NEGATIVE 10/01/2021 DTL 4:50 PM CDT Result No reportable 10/01/2021 DTL variants were 4:50 PM CDT identified. Specimen WB Whole Blood 10/01/2021 DTL 4:50 PM CDT Released By Kings Sanchez 10/01/2021 DTYovani Sorto M.D. 4:50 PM CDT Interpretation This result decreases the likelihood but does not ru le out 10/01/2021 DTL a diagnosis of TTR-associated familial amyloidosis for this 4:50 PM CDT individual. We predict that there are individuals with a diagnosis of TTR-associated familial amyloidosis who have a pathogenic mutation that is not detectable by the method described (e.g. large deletions/duplications, promoter mutations, or deep intronic mutations). Additionally, this assay also does not rule out the presence of mutations in other genes associated with familial amyloidosis (i.e. apolipoprotein A-I, apolipoprotein A-II, lysozyme, gelsolin, cystatin C, or fibrinogen alpha chain.) This result should be interpreted in the context of clinical findings, family history, and other laboratory testing. If testing was performed due to a family history of familial amyloidosis, genetic testing of an affected family member is necessary to determine whether this test is of predictive value for this family. Identification of the mutation in this family would allow for more accurate risk assessment of at risk individuals. A genetic consultation may be of benefit. Unless reported or predicted to cause disease, alterations found deep in the intron or alterations that do not result in an amino acid substitution are not reported. These and common polymorphisms identified for this patient are available upon request. Comment: ----ADDITIONAL INFORMATION---- Bi-directional sequence analysis was per formed to test for the presence of a mutation in all coding regions and intro n/exon boundaries of the TTR gene (GenBank accession number [id number]; nicolas [id number] ([id number])). An online research opportunity called [employer] ([employer]), a project of [employer], is available for the recipient of this genetic test. This patient registry collects de-identified genetic and health information to advance the knowledge of genetic variant s. [facility] is a collaborator of [employer]. This may not be applicable for all tests. Test results should be interpreted in th e context of clinical findings, family history, and other laboratory nahomy a. Misinterpretation of results may occur if the information provided is reji ccurate or incomplete. Rare polymorphisms exist that could lead to false-negative or false-positive results. If results obtained do not matc h the clinical findings, additional testing should be considered. Bone Marrow transplants from allogenic d onors will interfere with testing. Call [facility] for instru ctions for testing patients who have received a bone marrow transplant. One or more in silico tools were used to assist in the interpretation of these results. These tools are updated r egularly and predictions for a given variant may change. ??Additionally, the predictability of these tools for the determination of pathogenicity is curren tly unvalidated. This test was developed and its performa nce characteristics determined by [facility] in a manner consistent with CLIA requirements. This test has not been cleared or approved by the [place] d and Drug Administration. Specimen Anatomical Collection Method Collection Time Receive d Time (Source) Location / / Volume Laterality Varies (Blood, 09/19/2021 11:56 2 Venous) AM CDT 12:34 PM CDT Narrative This result has an attachment that is no t available. Cheyenne Andino M.D., M.B.A. LAB GENETIC TESTING Performing Organization Address City/State/ZIP Code Phon e Number [facility] - [address] [place], [place] [address] [facility] [place] [address] [facility] [address] documented in this encounter Visit Diagnoses Diagnosis Acute On Chronic Systolic (Congestive) H eart Failure (HCC) Acute On Chronic Systolic (Congestive) H eart Failure (HCC) Acute On Chronic Systolic (Congestive) H eart Failure (HCC) documented in this encounter
--- OUTSIDE RECORDS SUMMARY | 2022-04-25 13:45 | XMS_ITS | Clinical Summary ---
:1940 Author Organization [facility] Address [address] [place] [address] Care Team Providers Name Role Phone Unavailable Primary Care Provider Unavailable Source Comments Patient records contain information from all sites at [facility]. For routine questions regarding patient records, call [phone] during business hours, M-F 8:00 AM - 5:00 PM Central Time. Record requests for emergency care only can be directed to [phone] at any time.[facility] Allergies Active Allergy Reactions Severity Noted Date Comments Carvedilol Other (see comments) 12/28/2019 Iron Itching, Hives High 05/23/2021 Iron Sucrose Rash Low 09/19/2021 Medications Medication Sig Dispensed Refills Start Date End Date Status calcitRIOL Take 0.25 mcg by 0 Ac tive (ROCALTROL) 0.25 mcg mouth daily. capsule calcium Take 667 mg by 0 Activ e acetate,phosphat mouth 3 (three) bind, (PHOSLO) 667 mg times a day with (169 mg calcium) meals. capsule lisinopriL Take 1 tablet (2.5 30 tablet 0 04/20/2021 Active (PRINIVIL,ZESTRIL) mg total) by mouth 2.5 mg tablet daily. Follow-up with PCP for additional refills. multivitamin renal Take 1 tablet by 30 tablet 0 04/20/2021 Active failure (DIALYVITE) mouth daily. Take 100-1 mg tablet after dialysis on dialysis days. Follow-up with dialysis center for additional refills. Additional Information Patient not taking. Reported on 09/19/2021 omeprazole (PriLOSEC) 20 Take by mouth daily. 0 03/03/[address] capsule furosemide (LASIX) 80 mg Take 1 tablet (80 mg 180 tablet 3 Active tablet total) by mouth 2 (two) times a day. Follow-up with Nephrology for additional refills. metoprolol succinate Take 1 tablet (25 mg 90 tablet 3 09/20/19 Active (TOPROL-XL) 25 mg 24 hr total) by mouth daily. Do tablet not crush or chew. Please follow-up with primary care provider for additional refills. Active Problems Problem Noted Date Dyspnea 04/17/2021 Hypertension And End Stage Renal Disease 04/17/2021 Nicotine Dependence Other Tobacco Product 04/17/2021 Frailty Age Related Physical Debility 04/17/2021 Anemia In Chronic Kidney Disease 04/17/2021 Acute On Chronic Systolic (Congestive) Heart Failure 1 Depression Anxiety 04/17/2021 Social History Tobacco Use Types Packs/Day Years Used Date Smoking Tobacco: Light Smoker Cigars Smokeless Tobacco: Former Qu it: 06/21/2008 Tobacco Cessation: Counseling Given: Yes Comments: A few puffs a day Sex Assigned at Date Recorded Not on file Last Filed Vital Signs Vital Sign Reading Time Taken Comments Blood Pressure 173/78 09/19/2021 4:27 PM CDT Pulse 82 09/19/2021 4:27 PM CDT Temperature 36.8 ??C (98.2 ??F) 04/20/2021 12:15 PM CDT Respiratory Rate 16 04/20/2021 12:15 PM CDT Oxygen Saturation 100% 04/20/2021 12:15 PM CDT Inhaled Oxygen Concentration - - Weight 49.5 kg (109 lb 0.3 oz) 09/19/2021 4:27 PM CDT Height 156.2 cm (5' 1.5) 09/19/2021 4:27 PM CDT Body Mass Index 20.27 09/19/2021 4:27 PM CDT Plan of Treatment Health Maintenance Due Date Last Done Comments Hepatitis C Screening 1940 COVID-19 Vaccine (#1) 06/28/1941 DTaP,Tdap,and Td Vaccines (1 - Tdap) 1961 Zoster Vaccines (1 of 2) 1959 Depression Screening (Annual PHQ-2) 07/01/2021 Fall Risk Screen (Annual) 07/01/2021 Office Visit for Blood Pressure Check / Re-check 12/20/2021 09/19/2021 Pneumococcal vaccine (65+ years) (2 - PPSV23 if 03/28/2022 03/28/2021 available, else PCV20) Influenza Vaccine (#1) 2022 03/25/2021 Tobacco Cessation counseling 04/17/2022 04/17/2021 Medical Devices Implanted Type Area Caramel Cutter Hand Device Shelf Model / Identifier Expiration Serial / Date Lot Implantable Implantable Chest [place] Insurance Payer Benefit Plan / Subscriber ID Effective Dates Phone Addre ss Type Group AARP AAR MEDICARE [id number] 2021-Present [phone] [address] [address] [place] [address] ([place]) [place] [address] Advance Directives For more information, please contact: [phone] Latest Code Status on File Code Status Date Activated Date Inactivated Comments Full Code 04/17/2021 2:27 PM 04/20/2021 3:13 PM Question Answer Comments Full Code: Discussed
--- OUTSIDE RECORDS SUMMARY | 2022-04-25 13:45 | XMS_ITS | Encounter Summary ---
:1940 Author Organization [facility] Address [address] [place] [address] Care Team Providers Name Role Phone Unavailable Primary Care Provider Unavailable Encounter Details Date Type Department Care Team Description 09/19/2021 Lab Department of Laboratory Cheyenne Andino M.D. , Acute On Chronic Systolic Medicine and Pathology, M.B.A. (Congestive) Heart [address] Failure (HCC) [place], [place] [address] [place] [id number] [place] [address] [phone] Social History Tobacco Use Types Packs/Day Years Used Date Smoking Tobacco: Light Smoker Cigars Smokeless Tobacco: Former Qu it: 06/21/2008 Comments: A few puffs a day Sex Assigned at Date Recorded Not on file documented as of this encounter Plan of Treatment Not on filedocumented as of this encounter Procedures Procedure Name Priority Date/Time Associated Diagnosis Comme nts TTR GENE, FULL GENE Routine 09/19/2021 11:56 AM Acute On Chron ic Results for this ANALYSIS CDT Systolic procedure are i n (Congestive) Heart [facility] ts Failure (HCC) section. documented in this encounter Results TTR Gene, Full Gene Analysis (09/19/2021 11:56 AM CDT) Component Value Ref Test Analysis Performed At [facility] Range Method Time Signature Result Summary NEGATIVE 10/01/2021 DTL 4:50 PM CDT Result No reportable 10/01/2021 DTL variants were 4:50 PM CDT identified. Specimen WB Whole Blood 10/01/2021 DTL 4:50 PM CDT Released By Kings Sanchez 10/01/2021 DTL Alex Sorto. 4:50 PM CDT Interpretation This result decreases [...] the TTR gene (GenBank accession number [id number]; [facility] [id number] ([id number])). An online research opportunity called [employer] ([employer]), a project of [employer], is available for the recipient of this genetic test. This patient registry collects de-identified genetic and health information to advance the knowledge of genetic variant s. [facility] is a collaborator of [employer]. This may not be applicable for all [...] d onors will interfere with testing. Call [facility] for instru ctions for testing patients [...] and its performa nce characteristics determined by [facility] in a manner consistent with CLIA requirements. [...] Organization Address City/State/ZIP Code Phon e Number [facility] - [address] [place], [place] [address] [facility] [place] [address] [facility] [address] documented in this encounter Visit Diagnoses Diagnosis Acute On Chronic Systolic (Congestive) H eart Failure (HCC) documented in this encounter
--- OUTSIDE RECORDS SUMMARY | 2022-04-25 13:45 | XMS_ITS | Encounter Summary ---
:1940 Author Organization [facility] Address [address] [place] [address] Care Team Providers Name Role Phone Unavailable Primary Care Provider Unavailable Reason for Referral Outpatient (Routine) - Closed Specialty Diagnoses / Procedures Referred By Contact Refer red To Contact Diagnoses Failure Heart (HCC) Clark Rojo M.D. [facility] Procedures Echo Transthoracic (TTE) [address] [place] [phone] Referral ID Status Reason Start Date Expiration Date Visits Requ ested Visits Authorized [id number] Closed 08/01/2021 08/01/2022 1 1 SETTER HELPER Reason for Visit Outpatient (Routine) - Closed Specialty Diagnoses / Procedures Referred By Contact Refer red To Contact Diagnoses Failure Heart (HCC) Clark Rojo M.D. [facility] Procedures Echo Transthoracic (TTE) [address] [place] [phone] Referral ID Status Reason Start Date Expiration Date Visits Requ ested Visits Authorized [id number] Closed 08/01/2021 08/01/2022 1 1 Encounter Details Date Type Department Care Team Description 08/21/2021 Hospital Encounter Department of Zeenat Rojo Heart (HCC) Cardiovascular Diseases Mahnaz Rodas in [facility] [address] [facility] [address] [place] [phone] Social History Tobacco Use Types Packs/Day Years [...] Name Priority Date/Time Associated Diagnosis Comme nts (TTE) 2D LIMITED Routine 08/21/2021 4:16 PM Failure Heart (HCC ) Results for this WITH COLOR AND TANK SETTER HELPER procedure are in DOPPLER the results section. documented in this encounter Results (TTE) 2D LIMITED WITH COLOR AND DOPPLER (08/21/2021 4:16 PM TANK SETTER HELPER) [facility] gist Method Time Signature Ejection Fraction 53 MC [...] / / Volume Laterality 08/21/2021 2:56 PM TANK SETTER HELPER Impressions 08/21/2021 11:20 PM TANK SETTER HELPER Echocardiogram performed per left ventricular function protocol. [...] complete report, see the Order-L evel Documents. Narrative 08/21/2021 11:20 PM TANK SETTER HELPER For the complete report, see the Order-Level [...]
--- OUTSIDE RECORDS SUMMARY | 2022-04-25 13:45 | XMS_ITS | Encounter Summary ---
:1940 Author Organization [facility] Address [address] [place] [address] Care Team Providers Name Role Phone Unavailable Primary Care Provider Unavailable Reason for Referral Outpatient (Routine) - Closed Specialty Diagnoses / Procedures Referred By Contact Refer red To Contact Diagnoses Failure Heart (HCC) Clark Rojo M.D. 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 [facility] Procedures DX Chest AP or PA and Lateral 2 Views [address] [place] [phone] Referral ID Status Reason Start Date Expiration Date Visits Requ ested Visits Authorized [id number] Closed 08/01/2021 08/01/2022 1 1 Encounter Details Date Type Department Care Team Description 08/22/2021 Hospital Encounter Department of Darrel Failure Heart (HCC) Radiology, Jaycob Rodas M.D. Building, in [address] [place] [address] [place] [phone] [place], [place] [phone] (Work) [phone] Social History Tobacco Use Types Packs/Day Years [...] Procedure Name Priority Date/Time Associated Comments Diagnosis DX CHEST AP OR PA RAD - Routine 08/22/2021 11:36 Failure Heart Resu lts for this AND LATERAL 2 (most inpatients AM INTERIOR DECORATOR PAINTING (HCC) procedure are in VIEWS and all the results outpatients) section. documented in this encounter Results DX Chest AP or PA and Lateral 2 Views (08/22/2021 11:36 AM INTERIOR DECORATOR PAINTING) Anatomical Region Laterality Modality Chest, Thoracic RST LOS, Thoracic ARZ LOS, Thoracic N/A Digital Radiography FLA LOS Specimen (Source) Anatomical Collection Method Collection Time Re ceived Time Location / / Volume Laterality 08/22/2021 11:38 AM INTERIOR DECORATOR PAINTING Impressions 08/22/2021 11:39 AM INTERIOR DECORATOR PAINTING In the interval from the outside study of 04/17/2021, cardiac silhouette has decreased in size and is now mildly enlarged. Diff use groundglass opacities with pulmonary venous hypertension and interstitial edema have significantl y improved. Mild residual interstitial opacity within the lower lungs, especially on the right. De nsely calcified aorta. Degenerative changes thoracic spine. Narrative 08/22/2021 11:39 AM INTERIOR DECORATOR PAINTING EXAM: ??DX CHEST AP OR PA AND [...] calcified aorta. Degenerative changes thoracic spine. Clark [facility] [employer] documented in this encounter Visit Diagnoses Diagnosis Failure Heart (HCC) documented in this encounter
--- OUTSIDE RECORDS SUMMARY | 2022-04-25 13:45 | XMS_ITS | Encounter Summary ---
:1940 Author Organization [facility] Address [address] [place] [address] Care Team Providers Name Role Phone Unavailable Primary Care Provider Unavailable Reason for Visit Outpatient (Routine) - Closed Specialty Diagnoses / Procedures Referred By Contact Refer red To Contact Diagnoses Acute On Chronic Systolic (Congestive) Heart Failure (HCC) Cheyenne Andino M.D., M.B.A. [facility] Procedures Fat Aspirate [address] [place], [place] [phone] Referral ID Status Reason Start Date Expiration Date Visits Requ ested Visits Authorized [id number] Closed 08/22/2021 08/22/2022 1 1 Encounter Details Date Type Department Care Team Description 09/19/2021 Infusion Department of Infusion Cheyenne Andino M.D., [facility] [place] [address] [facility] Heart Failure (HCC) [address] [place] [phone] Social History Tobacco Use Types Packs/Day Years Used Date Smoking Tobacco: Light Smoker Cigars Smokeless Tobacco: Former Qu it: 06/21/2008 Comments: A few puffs a day Sex Assigned at Date Recorded Not on file documented as of this encounter Procedure Notes Sj Bird R.N. - 09/19/2021 2:30 PM CDTAssociated Order(s): Fat Aspirate Pre-Procedure Diagnose(s): Acute On Chronic Systolic (Congestive) Heart Failure (HCC) Post-Procedure Diagnose(s): Acute On Chronic Systolic (Congestive) Heart Failure (HCC) Fat Aspirate Date/Time: 09/19/2021 2:27 PM Performed by: Sj Bird R.N. Authorized by: Cheyenne Andino M.D., M.B.A. Care team members present 1. Sj Bird R.N. PROCEDURE DETAILS Procedure: Fat aspirate Fat aspirate Location: Right abdominal wall and left abdominal wall Needle size (gauge): 18 # Slides obtained: 4 Aspirate volume (mL): 0.5 CONSENT Consent obtained: written UNIVERSAL PROTOCOL All relevant documentation and testing were reviewed and available. All required blood products, implants, devices and or special equipment were made available as applicable. Pre-procedure verificationwas conducted and the correct site was marked if required. A fire risk assessment was done as applicable. The procedural time-out was conducted prior to performing the procedure and confirmed in a procedural pause. PRE-PROCEDURE DETAILS Appropriate hand hygiene, gown, cap, mask, protective eyewear, sterile gloves, skin preparation, sterile drape, and strict aseptic technique were utilized as applicable for the procedure.: yes Site preparation: alcohol SEDATION / ANESTHESIA Anesthesia method: local infiltration Local infiltrate type: lidocaine POST-PROCEDURE DETAILS Procedure completed successfully: yes Procedure tolorated: Well Complications: no apparent complications Post-procedure instructions: Post-procedure activity instructions provided COMMENTS Lidocaine 1% 10 mg. documented in this encounter Plan of Treatment Not on filedocumented as of this encounter Procedures Procedure Name Priority Date/Time Associated Comments Diagnosis HC FNA BX WO IMG 1ST Routine 09/19/2021 2:27 PM Acute On Chron ic Results for this LESION CDT Systolic procedure are i n (Congestive) Heart the resul ts Failure (HCC) section. CT FNA BX WO IMG 1ST Routine 09/19/2021 2:27 PM Acute On Chron ic Results for this LESION CDT Systolic procedure are i n (Congestive) Heart the resul ts Failure (HCC) section. SUBCUTANEOUS FAT Routine 09/19/2021 6:18 AM Resul ts for this ASPIRATE CDT procedure are i n the results section. documented in this encounter Results CT FNA BX WO IMG 1ST LESION, HC FNA BX WO IMG 1ST LESION (09/19/2021 2:27 PM CDT) Narrative Sj Bird R.N. - 09/19/2021 2:27 PM CDT Sj Bird R.N. ? 09/19/2021 ??2:28 PM Fat Aspirate Date/Time: 09/19/2021 2:27 PM Performed by: Sj Bird R.N. Authorized by: Cheyenne Andino M.D., M.B.AKandis Care team members present 1. Sj Bird [...] Andino M.D., M.B.A. PROCEDURE/MINOR SURGICAL ORD ERABLES Subcutaneous Fat Aspirate (09/19/2021 6:18 AM CDT) Component Value Ref Test Analysis Performed At [facility] Method Time Signature 09/20/2021 [facility] 12:03 PM CDT Report Cuba Carbajal M.D. 09/20/2021 [facility] electronically 12:03 PM signed by CDT I verify that I have examined all relevant slides/materials for the specimen(s) and rendered or confirmed the diagnosis. Gross Description The subcutaneous fat aspirate used for diagnostic purposes 09/20/2021 [facility] consists of 0.5 mL fat. 12:03 PM CDT Interpretation FINAL DIAGNOSIS 09/20/2021 [facility] [place] red stain, abdominal subcutaneous fat aspirate 12:03 PM specimen: Amyloid is absent. CDT Specimen Anatomical Collection Method Collection Time Receive d Time (Source) Location / / Volume Laterality Varies 09/19/2021 6:18 AM 6:18 CDT AM CDT Narrative This result has an attachment that is no t available. Cheyenne Andino M.D., M.B.A. LAB PATHOLOGY/CYTOLOGY ORDER SUNIL Performing Organization Address City/State/ZIP Code Phon e Number [facility] - [address] [place], [place] [address] [place] [address] [facility] [address] documented in this encounter Visit Diagnoses Diagnosis Acute On Chronic Systolic (Congestive) H eart Failure (HCC) documented in this encounter
--- OUTSIDE RECORDS SUMMARY | 2022-04-25 13:45 | XMS_ITS | Encounter Summary ---
:1940 Author Organization [facility] Address [address] [place] [address] Care Team Providers Name Role Phone Unavailable Primary Care Provider Unavailable Reason for Visit Reason Comments Follow-up Encounter Details Date Type Department Care Team Description 08/25/2021 Clinical Communication [facility] Mahnaz, M. B.A. in [facility] jojo [address] [facility] [address] [place] [phone] Social History Tobacco Use Types Packs/Day Years Used Date Smoking Tobacco: Every Day Cigars Smokeless Tobacco: Former Qu it: 06/21/2008 Comments: A few puffs a day Sex Assigned at Date Recorded Not on file documented as of this encounter Miscellaneous Notes Telephone Encounter - Inez Shah - 08/25/2021 8:07 AM CST Hi, You put an order in for a follow up appointment however you are completely booked. Do you have a certain day and time you would like to see this patient back? Thank you, Inez ICAL HAEMATOLOGIST documented in this encounter Plan of Treatment Not on filedocumented as of this encounter Visit Diagnoses Not on filedocumented in this encounter
--- OUTSIDE RECORDS SUMMARY | 2022-04-25 13:45 | XMS_ITS | Encounter Summary ---
:1940 Author Organization [facility] Address [address] [place] [address] Care Team Providers Name Role Phone Unavailable Primary Care Provider Unavailable Reason for Referral Outpatient (Routine) - Closed Specialty Diagnoses / Referred By Contact Referred To Contact Procedures Cardiovascular Diseases / Diagnoses Acute On Chronic Systolic (Congestive) Heart Failure (HCC) [facility] Cardiovascular Disease Chantelle Zapata APRN C.N.P., D.N.P. [address] [place] [phone] Referral ID Status Reason Start Date Expiration Date Visits Requ ested Visits Authorized [id number] Closed 04/20/2021 04/20/2022 1 1 Encounter Details Date Type Department Care Team Description 04/20/2021 Clinical Communication [facility] [place], [address] [place] [address] Chantelle [place] C.N.PKandis, D.N.P. [phone] [place] [phone] Social History Tobacco Use Types Packs/Day Years Used Date Smoking Tobacco: Every Day Cigars Comments: A few puffs a day Sex Assigned at Date Recorded Not on file documented as of this encounter Plan of Treatment Scheduled Referrals Name Type Priority Associated Order Schedule Diagnoses Cardiovascular Disease Outpatient Referral Routine Acute On Ch ronic Expected: - Heart failure consult Systolic 04/01 (clinic) (Congestive) Heart (Approxim ate), Failure (HCC) Expires: 04/20/2024 documented as of this encounter Visit Diagnoses Diagnosis Acute On Chronic Systolic (Congestive) H eart Failure (HCC) - Primary documented in this encounter
--- OUTSIDE RECORDS SUMMARY | 2022-04-25 13:45 | XMS_ITS | Encounter Summary ---
:1940 Author Organization [facility] Address [address] [place] [address] Care Team Providers Name Role Phone Unavailable Primary Care Provider Unavailable Reason for Visit Reason Comments Med Refill Encounter Details Date Type Department Care Team Description 04/22/2021 Refill [facility], [facility], Chantelle Zapata, Med Refill [facility], Abran NÚÑEZ C. N.PKandis, D.N.PKandis [facility] [address] [place] [address] [place] [phone] [place] [address] [phone] Social History Tobacco Use Types Packs/Day Years Used Date Smoking Tobacco: Every Day Cigars Comments: A few puffs a day Sex Assigned at Date Recorded Not on file documented as of this encounter Plan of Treatment Not on filedocumented as of this encounter Visit Diagnoses Not on filedocumented in this encounter
--- OUTSIDE RECORDS SUMMARY | 2022-04-25 13:45 | XMS_ITS ---
:1940 Author Organization [facility] Address [address] [place] [address] Care Team Providers Name Role Phone Unavailable Primary Care Provider Unavailable Allergies Active Allergy Reactions Severity Noted [...] (PriLOSEC) 20 Take by mouth daily. 0 03/[address] capsule furosemide (LASIX) 80 [...]
--- OUTSIDE RECORDS SUMMARY | 2022-04-25 13:45 | XMS_ITS | Encounter Summary ---
:1940 Author Organization [facility] Address [address] [place] [address] Care Team Providers Name Role Phone Unavailable Primary Care Provider Unavailable Reason for Visit Outpatient (Routine) - Authorized Specialty Diagnoses / Procedures Referred By Contact Refer red To Contact Diagnoses Acute On Chronic Systolic (Congestive) Heart Failure (HCC) Cheyenne Andino M.D., M.B.A. [facility] Procedures NM Cardiac Amyloid PYP SPECT CT [address] [place] [address] Referral ID Status Reason Start Date Expiration Date Visits V isits Requested Authorized [id number] Authorized 08/22/2021 08/22/2022 6 6 Encounter Details Date Type Department Care Team Description 09/19/2021 Hospital Encounter Department of Radiology, Cheyenne Andino M.D., [place], in M.B.A. [place], [place] [address] [facility] [address] [place] [phone] Social History Tobacco Use Types Packs/Day Years Used Date Smoking Tobacco: Light Smoker Cigars Smokeless Tobacco: Former Qu it: 06/21/2008 Comments: A few puffs a day Sex Assigned at Date Recorded Not on file documented as of this encounter Medications at Time of Discharge Medication Sig Dispensed Refills Start Date End Date calcitRIOL (ROCALTROL) Take 0.25 mcg by mouth 0 0.25 mcg capsule daily. calcium Take 667 mg by mouth 3 0 acetate,phosphat bind, (three) times a day (PHOSLO) 667 mg (169 mg with meals. calcium) capsule furosemide (LASIX) 80 Take 1 tablet (80 mg 180 tablet 3 08/30 mg tablet total) by mouth 2 (two) times a day. Follow-up with Nephrology for additional refills. metoprolol succinate Take 1 tablet (25 mg 90 tablet 3 09/19 (TOPROL-XL) 25 mg 24 hr total) by mouth daily. tablet Do not crush or chew. Please follow-up with primary care provider for additional refills. omeprazole (PriLOSEC) Take by mouth daily. 0 03/[address] capsule documented as of this [...] Volume Laterality 09/19/2021 12:22 PM CDT Narrative [facility] MERGE - 09/19/2021 4:11 PM CDT This result has an attachment that is no t available. See PDF For Result Procedure Note Luis F Turner M.D. - 09/19/2021Formatt ing of this note might be different from the original. See PDF For Result Cheyenne Andino M.D., M.B.A. [facility] [place] Performing Organization Address City/State/ZIP Code Phon e Number [facility] MERGE CV MERGE NA documented in this encounter Visit Diagnoses Not on filedocumented in this encounter
--- OUTSIDE RECORDS SUMMARY | 2022-04-25 13:46 | XMS_ITS | Encounter Summary ---
:1940 Author Organization [facility] Address [address] [place] [address] Care Team Providers Name Role Phone Fabian Arias MD Primary Care Provider Encounter Details Date Type Department Care Team Description 04/18/2022 Treatment [facility] Landon Zarate MD [address] [place] [address] [place], [place] [phone] (Wo rk) Social History Tobacco Use Types Packs/Day Years Used Date Smoking Tobacco: Smoker, Current Cigarettes Started: 07/01/1976 Status Unknown Sex Assigned at Date Recorded Not on file documented as of this encounter Miscellaneous Notes Dialysis Note - Landon Calvert MD - 04/18/2022 8:47 AM CDT Date: Apr 18, 2022 Patient Name: Zamzam Garibay : 1940 Chart #: [id number] Sex: F This patient was personally seen for a basic visit as part of routine weekly dialysis care. A reviewof the dialysis treatment, blood pressure, estimated dry weight and recent lab values was made. These were discussed with the patient and staff as necessary. Treatment Data for 04/18/2022 started at:5:51 AM Dialyzer: 160NRe Optiflux Na: 137 mEq/L Bicarb: 33 mEq/L Dialysate: 2.0 K, 2.25 Ca, 1.0 Mg, 100 Dextrose (G2231) Dialysate/Machine Temp (prescribed): 37 C Dialysate/Machine Temp (actual): 35.6 C BFR (prescribed): 400 BFR (actual): 400 Prescribed time: 03:30 EDW: 54 kg Access Type: Active (In Use):CVCatheter-Tunneled/Chest Pre Dialysis Vitals (for 04/18/2022 5:43 AM ) Pre BP (sit): 152/77 Pre Wt: 56 kg Temp: 95 F Post Dialysis Vitals (for 04/16/2022 9:30 AM ) Post BP (sit): 145/71 Post Wt: 53.7 kg Current Dialysis Vitals (for 04/18/2022 8:35 AM ) BP (sit): 162/92 AP(-) / TIRE AND LUBE TECHNICIAN: 188/131 Pulse: 89 Chairside data as of 04/18/2022 8:35 AM Last 3 Treatments 04/16/2022 04/13/2022 04/11/2022 EDW (kg) 54 54 54 Weight Pre (kg) 56.3 55.3 56.6 Weight Post (kg) 53.7 54.7 54.8 Dialytic Weight Loss (kg) -2.6 -0.6 -1.8 EDW Deviation (kg) -0.3 0.7 0.8 BP Sit Pre 150/90 150/77 175/71 BP Sit Post 145/71 128/73 133/79 UF Rate (mL/kg/hr) 13 3 9 Prescribed BFR 400 400 400 Average Delivered BFR 400 400 400 Prescribed Treatment Time 03:30 03:30 03:30 Actual Treatment Time 03:36 03:30 03:33 Treatment Medication Orders Medication Sig Start Date End Date Cinacalcet (Sensipar) 30 mg ORAL 3X Week Post Dialysis,with snack 04/11/2022 04/10/2023 Doxercalciferol (Hectorol) 4 mcg IVP Every Treatment 02/26/2022 02/25/2023 Heparin Sodium (Porcine) 1,000 Units/mL Catheter Lock Arterial 2000 units Arterial Red Port Every Treatment 04/06/2022 04/05/2023 Heparin Sodium (Porcine) 1,000 Units/mL Catheter Lock Venous 2100 units Venous Blue Port Every Treatment 09/01/2021 08/31/2022 Heparin Sodium (Porcine) 1,000 Units/mL Systemic 4000 units IVP Every Treatment 07/05/2021 07/04/2022 Heparin Sodium (Porcine) 1,000 Units/mL Systemic 2000 units IVP Every Treatment 07/05/2021 07/04/2022 MAINTENANCE JOB TITLES: Landon Calvert MD LOCATION: [phone] SCHEDULE: -- 2nd Shift ACCESS: EDW: kg. DIALYZER: HD DURATION: NEEDLE SIZE: ANTICOAG: BATH: QB: ml/min QD: ml/min Subjective Tolerating dialysis well. 04/18/22: Doing well, no new concerns, BP better controlled, fluid gains improved. Access surgery set up next week, [place] run on next week prior to Saturday procedure at [facility] and granddaughter bringing her. 04/11: Access surgery scheduled later this month with HD day prior, has ride now. No dyspnea or orthopnea or edema. BP improved, is at goal when at dry weight and fluid gains improving but not consistent. No new symptoms. Taking meds. 03/21: She reports feeling excellent and has no concerns. NOt getting to EDW, no edema or SOB and BP is improved and now in goal range. She does have symptoms with SBP low 100's, gets sweaty. Access placement planned next week. 03/14: Still 5 Kg above dry weight today but much better fluid gain today and she is working on this,BP improved today as well and was 130's/80's when I saw her today half way through treatment. She has graft planned end of month and HD on prior to Saturday placement with HD at [facility] that . 02/21: She says she feels fantastic and [...] for access placement on Friday 02/02 at [facility] and had hyperkalemia and surgery cancelled and she dialyzed in the hospital instead. She had improved gain <1L today and will get close to EDW but not to dry weight. Her BP is a little better with this gain and on HD today looks excellent. She has no symptoms and feels well today. 01/24: She missed extra treatment on Sat at [facility]. Still above EDW. Trying to pull 2.6L today, traditionally has had issues with low BP with UF >2.3L but her BP is >200 systolic starting. Increased lisinopril last time, will increase again today. AVF/AVG surgery scheduled next week at [facility]. She feels well and has no dyspnea or orthopnea. 01/10/22: Her BP has been markedly elevated, persistently over dry weight and now 3+ Kg above dry weight post-Tx on Saturday. She does not lay flat due to SOB but this is chronic, denies dyspnea or other symptoms at this time. 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 12/06/21: She says she feels well. Her [...] her daughter and grandchild up in the [facility]. No symptoms of fluid [...] She has access appt on 10/03 at [facility]. No concerns today. 09/06/21: She is 9 [...] This is Jaz's first day back from [facility]. She says she had no symptoms, but her son tested her when she was fatigued and had fever. She reports now having no symptoms at all. She says she feels great. Fluid gains have been better. 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 Can't remove [...] HD. 04/26/21: She was hospitalized briefly at [facility] for dyspnea, no pneumonia but rather related to CHF. She saw cardiology in follow-up in clinic, lisinopril and metoprolol and lasix with UF on HD to dry weight recommended. She is not interested in home dialysis, discussed today. 04/12/21: Patient new to me. She followed with regular senior care provider in [facility], did not follow-up,crashed into dialysis [...] nl effort Cardiovascular Regular rate. Regular rhythm. Edema - No leg edema. Access - PCAD c/d/i Medication List Medication Sig Start Date B Complex 1 (with folic acid) (vitamin b complex-folic acid) 0.4 mg tablet Take 1 tablet by mouth once a day 04/12/2021 furosemide 80 mg tablet Take 1 [...] mouth once a day 04/12/2021 RenaPlex-D (vit b,w-sv-wbnl-selen-vit d3-e) 800 mcg-12.5 mg-2,000 unit tablet Take 1 tablet by mouthonce a day sevelamer carbonate 800 mg tablet Take 2 tablet by mouth three times a day with meals 04/11/2022 trazodone 50 mg tablet Take 1 tablet by mouth every night as needed 04/12/2021 Allergy List Allergen Reaction Reaction Severity Onset Date Venofer Skin rash Medications reviewed and no changes were made. BUN mg/dL 51 (04/04/22) 59 (03/07/22) 80 (01/31/22) 62 (01/03/22) 56 (11/29/21) UREA NITROGEN (MG/DL) IN SER/PLAS - POST DIALYSIS mg/dL 10 (04/04/22) 10 (03/07/22) 13 (01/31/22) 11 (01/03/22) 11 (11/29/21) URR % 80 (04/04/22) 83 (03/07/22) 84 (01/31/22) 82 (01/03/22) 80 (11/29/21) spKt/V Gotch 1.93 (04/04/22) 2.15 (03/07/22) 2.32 (01/31/22) 2.09 (01/03/22) 1.97 (11/29/21) eKdrt/V 1.63 (04/04/22) 1.81 (03/07/22) 1.95 (01/31/22) 1.76 (01/03/22) 1.66 (11/29/21) spKt/V (Daugirdas II) 1.9000 (04/04/22) 2.1000 (03/07/22) 2.2300 (01/31/22) 2.0500 (01/03/22) 1.9300 (11/29/21) HEMOGLOBIN (G/DL) IN BLOOD g/dL 12.9 (04/11/22) 13.3 (04/04/22) 13.4 (03/28/22) 12.7 (03/21/22) 11.7 (03/14/22) PLATELETS 1000/mcL 301 (04/04/22) 298 (03/07/22) 255 (01/31/22) 340 (01/03/22) 358 (11/29/21) IRON SATURATION % 6 (11/29/21) 14 (11/01/21) 11 (10/04/21) 16 (08/30/21) 18 (08/02/21) FERRITIN ng/mL 228 (04/04/22) 214 (01/03/22) 28 (10/18/21) 39 (10/04/21) 293 (07/05/21) ALBUMIN (G/DL) g/dL 4.1 (04/04/22) 4.2 (03/07/22) 4.2 (01/31/22) Sodium mEq/L 137 (04/04/22) 137 (03/07/22) 137 (01/31/22) POTASSIUM (MMOL/L) IN SER/PLAS mEq/L 5.6 (04/04/22) 5.0 (03/07/22) 4.6 (01/31/22) BICARBONATE (CO2) mEq/L 21 (04/04/22) 24 (03/07/22) 25 (01/31/22) BUN/CREATININE (MASS RATIO) IN SER/PLAS 5.6 (04/04/22) 6.3 (03/07/22) 9.8 (01/31/22) CALCIUM mg/dL 9.9 (04/04/22) 9.9 (03/07/22) 9.5 (02/21/22) Calcium Phos Product 71 (04/04/22) 56 (03/07/22) 58 (01/31/22) CALCIUM (MG/DL) CORRECTED FOR ALBUMIN IN SER/PLAS mg/dL 9.8 (04/04/22) 9.7 (03/07/22) 9.6 (01/31/22) PHOSPHATE (MG/DL) IN SER/PLAS mg/dL 7.2 (04/04/22) 5.7 (03/07/22) 5.9 (01/31/22) IPTH pg/mL 619 (04/04/22) 522 (03/07/22) 607 (02/21/22) Vascular Access Assessment: Type of access: Catheterand LUE AVF New access surgery planned in December 2021 12/06/21: Attempted using AVF with one 17g needle, infiltrated, now pulling clots. Does not seem usable to me based on this and how it feels. 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 Will need new access placement. She is being set up for vein mapping and surgeon consult Impression and Plan Stable dialysis Access placement next week Fri at [facility] Landon Calvert MD [ Signed And locked electronically On 04/18/2022 at 08:48:00 AM ] Transcribed: Landon Calvert ( 04/18/2022 ) documented in this encounter Plan of Treatment Not on filedocumented as of this encounter Visit Diagnoses Not on filedocumented in this encounter Care Teams Shooting Gallery Operator Relationship Specialty Start Date End Date Fabian Arias MD PCP - General Family Medicine 09/04/[address] [place] [phone] documented as of this encounter
--- OUTSIDE RECORDS SUMMARY | 2022-04-25 13:46 | XMS_ITS | Encounter Summary ---
:1940 Author Organization [facility] Address [address] [place] [address] Care Team Providers Name Role Phone Fabian Arias MD Primary Care Provider Encounter Details Date Type Department Care Team Description 02/28/2022 Orders Only [facility] Landon Zarate MD [phone] [place] [address] [place], [place] [phone] (Wo rk) Social History Tobacco Use [...] 03/01/2022 Unless otherwise specified, test(s) performed at: [facility], [address] [place] [address] [place] [address] GENERAL CAR YARD SUPERVISOR: Vicente Flores M.D., Ph.D For any questions, please call customer service at FREQUENCY:OTHER Resulting Agency Comment Specimen source: Blood Landon Calvert MD LAB BLOOD ORDERABLES Performing Organization Address City/State/ZIP Code Phon e Number [facility] documented in this encounter Visit Diagnoses Not on filedocumented in this encounter Care Teams Motor Vehicles Inspector Relationship Specialty Start Date End Date Fabian Arias MD PCP - General Family Medicine 09/04/[address] [place] [address] documented as of this encounter
--- OUTSIDE RECORDS SUMMARY | 2022-04-25 13:46 | XMS_ITS | Encounter Summary ---
:1940 Author Organization [facility] Address [address] [place] [address] Care Team Providers Name Role Phone Fabian Arias MD Primary Care Provider Encounter Details Date Type Department Care Team Description 04/11/2022 Orders Only [facility] Landon Zarate MD [address] [place] [address] [place], [place] [phone] (Wo rk) Social History Tobacco Use Types Packs/Day Years Used Date Smoking Tobacco: Smoker, Current Cigarettes Started: 07/01/1976 Status Unknown Sex Assigned at Date Recorded Not on file documented as of this encounter Plan of Treatment Not on filedocumented as of this encounter Procedures Procedure Name Priority Date/Time Associated Diagnosis Comme nts HEMATOLOGY Routine 04/11/2022 Results for thi s procedure are in the resu lts section. documented in this encounter Results HEMATOLOGY (04/11/2022) P athologist Signature Hemoglobin 12.9 12.0 - [facility] 16.0 g/dL [facility] Hemoglobin x 3 38.7 36.0 - [facility] 48.0 % [facility] Specimen (Source) Anatomical Collection Method Collection Time Re ceived Time Location / / Volume Laterality 04/11/2022 04/12/2022 6:37 AM CDT Narrative [facility] - 04/12/2022 Unless otherwise specified, test(s) performed at: [facility], [address] [place] [address], [place] [address] SHIPPING AND RECEIVING CLERK: Vicente Flores M.D., Ph.D For any questions, please call customer service at FREQUENCY:OTHER Resulting Agency Comment Specimen source: Blood Landon Calvert MD LAB BLOOD ORDERABLES Performing Organization Address City/State/ZIP Code Phon e Number [facility] documented in this encounter Visit Diagnoses Not on filedocumented in this encounter Care Teams Rv Mechanic Relationship Specialty Start Date End Date Fabian Arias MD PCP - General Family Medicine 09/04/[address] [place] [address] documented as of this encounter
--- OUTSIDE RECORDS SUMMARY | 2022-04-25 13:46 | XMS_ITS | Clinical Summary ---
:1940 Author Organization [facility] [place] [address] Care Team Providers Name Role Phone Louis [...] Effective Dates Phone Addre ss Type Group [facility] MR [id number] 2021-Kaylie [place] [address] [place] [address] (Home) FLORI MARCELINO [address] Care Teams Capacity Planning Manager Relationship Specialty Start Date End Date Louis Reyes MD PCP - General Family Practice 05/18/211999 [place] [phone]
--- OUTSIDE RECORDS SUMMARY | 2022-04-25 13:46 | XMS_ITS | Encounter Summary ---
:1940 Author Organization [facility] Address [address] [place] [address] Care Team Providers Name Role Phone Unavailable Primary Care Provider Unavailable Encounter Details Date Type Department Care Team Description 04/17/2021 Ancillary Procedure Department of Radiology Jonah Kamara in [facility] jojo Joya [address] [facility] [address] [place] [address] [place] [phone] Social History Tobacco Use Types Packs/Day Years Used Date Smoking Tobacco: Every Day Cigars Comments: A few puffs a day Sex Assigned at Date Recorded Not on file documented as of this encounter Plan of Treatment Not on filedocumented as of this encounter Procedures Procedure Name Priority Date/Time Associated Comments Diagnosis INTERPRETATION OF RAD - Routine 04/17/2021 2:50 Result s for OUTSIDE DX CHEST (most inpatients PM CDT this pr ocedure and all are in the outpatients) results section. documented in this encounter Results Interpretation of Outside DX Chest (04/17/2021 2:50 PM CDT) Anatomical Region Laterality Modality Thoracic RST LOS, Thoracic ARZ LOS, Thoracic FLA LOS, N/A Digital Radiography Chest, Other Specimen (Source) Anatomical Collection Method Collection Time Re ceived Time Location / / Volume Laterality 04/17/2021 4:21 PM CDT Impressions 04/17/2021 4:23 PM CDT Interpretation of outside radiograph of the chest (1 sitting portable AP view) dated 04/17/2021 from [facility]. Enlarged cardiac silhouette with prominence of the pulmon maribell vascularity. Mild interstitial prominence, likely edema. Patchy opaciti es in the right base may represent edema, atelectasis, or infiltrate. Aorti c calcification. Right IJ catheter with tip projected near the SVC/RA junction. Degenerative changes visualized spine, both shoulders and AC joints. Narrative 04/17/2021 4:23 PM CDT EXAM: ??INTERPRETATION OF OUTSIDE DX CHEST COMPARISON: ??None. Procedure Note Sarah Coello M.D. - 04/17/2021For matting of this note might be different from the original. EXAM: INTERPRETATION OF OUTSIDE DX CHEST COMPARISON: None. IMPRESSION: Interpretation of outside radiograph of the chest (1 sitting portable AP view) dated 04/17/2021 from [facility]. Enlarged cardiac silhouette with prominence of the pulmon maribell vascularity. Mild interstitial prominence, likely edema. Patchy opaciti es in the right base may represent edema, atelectasis, or infiltrate. Aorti c calcification. Right IJ catheter with tip projected near the SVC/RA junction. Degenerative changes visualized spine, both shoulders and AC joints. [facility] documented in this encounter Visit Diagnoses Not on filedocumented in this encounter
--- OUTSIDE RECORDS SUMMARY | 2022-04-25 13:46 | XMS_ITS | Encounter Summary ---
:1940 Author Organization [facility] Address [address] [place] [address] Care Team Providers Name Role Phone Fabian Arias MD Primary Care Provider Encounter Details Date Type Department Care Team Description 03/14/2022 Treatment [facility] Landon Zarate MD [address] [place] [address] [place], [place] [phone] (Wo rk) Social History Tobacco Use Types Packs/Day Years Used Date Smoking Tobacco: Smoker, Current Cigarettes Started: 07/01/1976 Status Unknown Sex Assigned at Date Recorded Not on file documented as of this encounter Miscellaneous Notes Dialysis Note - Landon Calvert MD - 03/14/2022 10:20 AM CDT Date: Mar 14, 2022 Patient Name: Zamzam Garibay : 1940 Chart #: [id number] Sex: F This patient was personally seen for a complete visit as part of routine monthly dialysis care. A review of the dialysis treatment, blood pressure, estimated dry weight and recent lab values was made. These were discussed with the patient and staff as necessary. Treatment Data for 03/14/2022 started at:6:04 AM Dialyzer: 160NRe Optiflux Na: 137 mEq/L Bicarb: 33 mEq/L Dialysate: 2.0 K, 2.25 Ca, 1.0 Mg, 100 Dextrose (G2231) Dialysate/Machine Temp (prescribed): 37 C Dialysate/Machine Temp (actual): 36.3 C BFR (prescribed): 400 BFR (actual): 400 Prescribed time: 03:30 EDW: 52 kg Access Type: Active (In Use):CVCatheter-Tunneled/Chest Pre Dialysis Vitals (for 03/14/2022 5:58 AM ) Pre BP (sit): 178/93 Pre Wt: 57.1 kg Temp: 95.7 F Post Dialysis Vitals (for 03/12/2022 9:41 AM ) Post BP (sit): 168/86 Post Wt: 56.3 kg Current Dialysis Vitals (for 03/14/2022 9:32 AM ) BP (sit): 101/75 AP(-) / COMPUTER SCIENTIST: 215/153 Pulse: 89 Chairside data as of 03/14/2022 9:32 AM Last 3 Treatments 03/12/2022 03/09/2022 03/07/2022 EDW (kg) 52 52 52 Weight Pre (kg) 58.2 55.6 56.2 Weight Post (kg) 56.3 54.4 54.3 Dialytic Weight Loss (kg) -1.9 -1.2 -1.9 EDW Deviation (kg) 4.3 2.4 2.3 BP Sit Pre 200/96 161/80 195/99 BP Sit Post 168/86 154/75 158/73 UF Rate (mL/kg/hr) 10 7 10 Prescribed BFR 400 400 400 Average Delivered BFR 410 410 410 Prescribed Treatment Time 03:30 03:30 03:30 Actual Treatment Time 03:30 03:30 03:30 Treatment Medication Orders Medication Sig Start Date End Date Doxercalciferol (Hectorol) 4 mcg IVP Every Treatment [...] Mircera 150 mcg IVP Every 2 weeks 02/28/2022 02/27/2023 MANAGER MEDICAL DEVICE: Landon Calvert MD LOCATION: [phone] SCHEDULE: 2nd Shift EDW: kg. DIALYZER: HD DURATION: NEEDLE SIZE: ANTICOAG: BATH: QB: ml/min QD: ml/min Subjective Tolerating dialysis well. 03/14: Still 5 Kg above dry weight today but much better fluid gain today and she is working on this,BP improved today as well and was 130's/80's when I saw her today half way through treatment. She has graft planned end of and HD on prior to Saturday placement with HD at [facility] that . 02/21: She says she feels [...] for access placement on Friday 02/02 at [facility] and had hyperkalemia and surgery cancelled and she dialyzed in the hospital instead. She had improved gain <1L today and will get close to EDW but not to dry weight. Her BP is a little better with this gain and on HD today looks excellent. She has no symptoms and feels well today. 01/24: She missed extra treatment on Sat at [facility]. Still above EDW. Trying to pull 2.6L today, traditionally has had issues with low BP with UF >2.3L but her BP is >200 systolic starting. Increased lisinopril last time, will increase again today. AVF/AVG surgery scheduled next week at [facility]. She feels well and has no dyspnea or orthopnea. 01/10/22: Her BP has been markedly elevated, persistently over dry weight and now 3+ Kg above dry weight post-Tx on Saturday. She does not lay flat due to SOB but this is chronic, denies dyspnea or other symptoms at this time. 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 12/06/21: She says she feels well. [...] her daughter and grandchild up in the [facility]. No symptoms of fluid overload, [...] She has access appt on 10/03 at [facility]. No concerns today. 09/06/21: She is 9 [...] This is Jaz's first day back from [facility] isolation unit. She says she had no symptoms, but her son tested her when she was fatigued and had fever. She reports now having no symptoms at all. She says she feels great. Fluid gains have been better. 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 Can't [...] HD. 04/26/21: She was hospitalized briefly at [place] for dyspnea, no pneumonia but rather related to CHF. She saw cardiology in follow-up in clinic, lisinopril and metoprolol and lasix with UF on HD to dry weight recommended. She is not interested in home dialysis, discussed today. 04/12/21: Patient new to me. She followed with senior structural engineer in [facility], did not follow-up,crashed [...] mouth once a day 04/12/2021 RenaPlex-D (vit b,x-gg-tvrl-selen-vit d3-e) 800 mcg-12.5 mg-2,000 unit tablet Take 1 tablet by mouthonce a day trazodone 50 mg tablet Take 1 tablet by mouth every night as needed 04/12/2021 Allergy List Allergen Reaction Reaction Severity Onset Date Venofer Skin rash Medications reviewed and no changes were made. Treatment and Adequacy Assessment BUN mg/dL 59 (03/07/22) 80 (01/31/22) 62 (01/03/22) 56 (11/29/21) 64 (11/01/21) UREA NITROGEN (MG/DL) IN SER/PLAS - POST DIALYSIS mg/dL 10 (03/07/22) 13 (01/31/22) 11 (01/03/22) 11 (11/29/21) 11 (11/01/21) URR % 83 (03/07/22) 84 (01/31/22) 82 (01/03/22) 80 (11/29/21) 83 (11/01/21) spKt/V Gotch 2.15 (03/07/22) 2.32 (01/31/22) 2.09 (01/03/22) 1.97 (11/29/21) 2.12 (11/01/21) eKdrt/V 1.81 (03/07/22) 1.95 (01/31/22) 1.76 (01/03/22) 1.66 (11/29/21) 1.79 (11/01/21) spKt/V (Daugirdas II) 2.1000 (03/07/22) 2.2300 (01/31/22) 2.0500 (01/03/22) 1.9300 (11/29/21) 2.1000 (11/01/21) Dialysis is adequate. Achieves prescribed time - Yes Achieves prescribed frequency - Yes Continue current prescription. Vascular Access Assessment Type of access: Catheterand LUE AVF New access surgery planned in December 2021 12/06/21: Attempted using AVF with one 17g needle, infiltrated, now pulling clots. Does not seem usable to me based on this and how it feels. 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 Will need new access placement. She is being set up for vein mapping and surgeon consult Anemia Assessment HEMOGLOBIN (G/DL) IN BLOOD g/dL 11.8 (03/07/22) 11.1 (02/28/22) 10.8 (02/21/22) 11.1 (02/14/22) 12.5 (02/07/22) PLATELETS 1000/mcL 298 (03/07/22) 255 (01/31/22) 340 (01/03/22) 358 (11/29/21) 352 (11/01/21) IRON SATURATION % 6 (11/29/21) 14 (11/01/21) [...] and Metabolic Assessment ALBUMIN (G/DL) g/dL 4.2 (03/07/22) 4.2 (01/31/22) 4.1 (01/03/22) 3.8 (11/29/21) 4.0 (11/01/21) Sodium mEq/L 137 (03/07/22) 137 (01/31/22) 141 (01/03/22) 142 (11/29/21) 136 (11/01/21) POTASSIUM (MMOL/L) IN SER/PLAS mEq/L 5.0 (03/07/22) 4.6 (01/31/22) 4.7 (01/03/22) 4.3 (11/29/21) 5.2 (11/01/21) BICARBONATE (CO2) mEq/L 24 (03/07/22) 25 (01/31/22) 24 (01/03/22) 23 (11/29/21) 23 (11/01/21) Albumin is at goal. Encourage high-biological value protein intake. Potassium is at goal. Bicarbonate is at goal. Continue same bicarbonate in dialysate. Bone and Mineral Metabolism Assessment CALCIUM mg/dL 9.9 (03/07/22) 9.5 (02/21/22) 9.8 (01/31/22) 8.9 (01/03/22) 9.1 (11/29/21) CALCIUM (MG/DL) CORRECTED FOR ALBUMIN IN SER/PLAS mg/dL 9.7 (03/07/22) 9.6 (01/31/22) 8.8 (01/03/22) 9.3 (11/29/21) 10.2 (11/01/21) PHOSPHATE (MG/DL) IN SER/PLAS mg/dL 5.7 (03/07/22) 5.9 (01/31/22) 7.6 (01/03/22) 6.7 (11/29/21) 7.4 (11/01/21) CALCIUM PHOSPHORUS PRODUCT, COR 55 (03/07/22) 57 (01/31/22) 67 (01/03/22) 62 (11/29/21) 75 (11/01/21) IPTH pg/mL 522 (03/07/22) 607 (02/21/22) 684 (01/03/22) 138 (11/08/21) 232 (10/04/21) Corrected Calcium is at goal. Phosphorous is above goal. Intact PTH is at goal. Hog Cutter will adjust binders and vitamin D per [...] again today. Did better with gain today. Hoping to get back toEDW, she has missed all attempts at extra UF treatments in the last month. BP is improved today, titrated up therapy last month and will monitor BP with attempts at getting back to EDW Transplant Status: Patient is not a candidate. age and co-morbidities Resuscitation Status No extra UF run for now as she has failed to show multiple times Re-scheduled access placement at [place], end of month with HD day prior at [facility] is planned Discussed fluid restriction and low salt diet again today Landon Calvert MD [ Signed And locked electronically On 03/14/2022 at 10:23:06 AM ] Transcribed: Landon Calvert ( 03/14/2022 ) documented in this encounter Plan of Treatment Not on filedocumented as of this encounter Visit Diagnoses Not on filedocumented in this encounter Care Teams Shift Supervisor Film Processing Relationship Specialty Start Date End Date Fabian Arias MD PCP - General Family Medicine 09/04/[address] [place] [address] documented as of this encounter
--- OUTSIDE RECORDS SUMMARY | 2022-04-25 13:46 | XMS_ITS | Encounter Summary ---
:1940 Author Organization [facility] Address [address] [place] [address] Care Team Providers Name Role Phone Fabian Arias MD Primary Care Provider Encounter Details Date Type Department Care Team Description 02/21/2022 Treatment [facility] f Landon Zarate MD [address] [place] [address] [place], [place] [phone] (Wo rk) Social History Tobacco Use Types Packs/Day Years Used Date Smoking Tobacco: Smoker, Current Cigarettes Started: 07/01/1976 Status Unknown Sex Assigned at Date Recorded Not on file documented as of this encounter Miscellaneous Notes Dialysis Note - Landon Calvert MD - 02/21/2022 11:20 AM CDT Date: Feb 21, 2022 Patient Name: Zamzam Garibay : 1940 Chart #: [id number] Sex: F This patient was personally seen [...] AM ) BP (sit): 191/86 AP(-) / RESEARCH ASSOCIATE MOLECULAR BIOLOGY: 222/130 Pulse: 76 Chairside data as of [...] 2000 units IVP Every Treatment 07/05/2021 07/04/2022 SERVICE ORDER TAKER: Landon Calvert MD LOCATION: [place] [phone] SCHEDULE: -- 2nd Shift ACCESS: EDW: kg. [...] for access placement on Friday 02/02 at [facility] and had hyperkalemia and surgery cancelled and she dialyzed in the hospital instead. She had improved gain <1L today and will get close to EDW but not to dry weight. Her BP is a little better with this gain and on HD today looks excellent. She has no symptoms and feels well today. 01/24: She missed extra treatment on Sat at [facility]. Still above EDW. Trying to pull 2.6L today, traditionally has had issues with low BP with UF >2.3L but her BP is >200 systolic starting. Increased lisinopril last time, will increase again today. AVF/AVG surgery scheduled next week at [facility]. She feels well and has no dyspnea or orthopnea. 01/10/22: Her BP has been markedly elevated, persistently over dry weight and now 3+ Kg above dry weight post-Tx on Saturday. She does not lay flat due to SOB but this is chronic, denies dyspnea or other symptoms at this time. 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. 12/06/21: She says she feels well. Her [...] her daughter and grandchild up in the [facility]. No symptoms of fluid overload, denies [...] She has access appt on 10/03 at [facility]. No concerns today. 09/06/21: She is 9 [...] This is Jaz's first day back from [facility] isolation unit. She says she had no symptoms, but her son tested her when she was fatigued and had fever. She reports now having no symptoms at all. She says she feels great. Fluid gains have been better. 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 Can't remove [...] HD. 04/26/21: She was hospitalized briefly at [place] for dyspnea, no pneumonia but rather related to CHF. She saw cardiology in follow-up in clinic, lisinopril and metoprolol and lasix with UF on HD to dry weight recommended. She is not interested in home dialysis, discussed today. 04/12/21: Patient new to me. She followed with religious education teacher in [facility], did not follow-up,crashed into dialysis in [...] mouth once a day 04/12/2021 RenaPlex-D (vit b,s-aq-rias-selen-vit d3-e) 800 mcg-12.5 mg-2,000 unit tablet Take [...] how it feels. Will send back to [facility] for re-evaluation and I will discuss with surgeon there 11/01/21: I will call [facility] for update on whether they have received report from her AVF surgery and plan moving forward for access revision/creation [facility] September 2021, need report [facility] appt 08/2021: LUE AVF lower arm placed in [place], fistulagram / stenosis of vein proximal not [...] weight as well Re-schedule AVG placement at [facility] Landon Calvert MD [ Signed And locked electronically On 02/21/2022 at 11:22:41 AM ] Transcribed: Landon Calvert ( 02/21/2022 ) documented in this encounter Plan of Treatment Not on filedocumented as of this encounter Visit Diagnoses Not on filedocumented in this encounter Care Teams Glass Presser Relationship Specialty Start Date End Date Fabian Arias MD PCP - General Family Medicine 09/04/[address] [place] [phone] documented as of this encounter
--- OUTSIDE RECORDS SUMMARY | 2022-04-25 13:46 | XMS_ITS | Encounter Summary ---
:1940 Author Organization [facility] Address [address] [place] [address] Care Team Providers Name Role Phone Unavailable Primary Care Provider Unavailable Encounter Details Date Type Department Care Team Description 04/17/2021 Orders Only Division of Nephrology and Jaz Mccurdy R.N. Hypertension, [place] [address] [facility], in [facility] [phone] [place] [address] [place], [place] [address] Social History Tobacco Use Types Packs/Day Years Used Date Smoking Tobacco: Every Day Cigars Comments: A few puffs a day Sex Assigned at Date Recorded Not on file documented as of this encounter Plan of Treatment Not on filedocumented as of this encounter Visit Diagnoses Not on filedocumented in this encounter
--- OUTSIDE RECORDS SUMMARY | 2022-04-25 13:46 | XMS_ITS | Encounter Summary ---
:1940 Author Organization [facility] Address [address] [place] [address] Care Team Providers Name Role Phone Fabian Arias MD Primary Care Provider Encounter Details Date Type Department Care Team Description 02/14/2022 Orders Only [facility] f Landon Zarate MD [address] [place] [address] [place], [place] [phone] (Wo rk) Social History Tobacco Use [...] 02/15/2022 Unless otherwise specified, test(s) performed at: [facility], [address] [place] [address] [place] [address] CHEESEMAKER HELPER: Vicente Flores M.D., Ph.D For any questions, please call customer service at FREQUENCY:OTHER Resulting Agency Comment Specimen source: Blood Landon Calvert MD LAB BLOOD ORDERABLES Performing Organization Address City/State/ZIP Code Phon e Number [facility] documented in this encounter Visit Diagnoses Not on filedocumented in this encounter Care Teams Inside Outside Sales Representative Relationship Specialty Start Date End Date Fabian Arias MD PCP - General Family Medicine 09/04/[address] [place] [address] documented as of this encounter
--- OUTSIDE RECORDS SUMMARY | 2022-04-25 13:46 | XMS_ITS | Encounter Summary ---
:1940 Author Organization [facility] Address [address] [place] [address] Care Team Providers Name Role Phone Unavailable Primary Care Provider Unavailable Encounter Details Date Type Department Care Team Description 04/17/2021 Ancillary Procedure Department of Internal Medicine Social History Tobacco Use Types Packs/Day Years Used Date Smoking Tobacco: Every Day Cigars Comments: A few puffs a day Sex Assigned at Date Recorded Not on file documented as of this encounter Plan of Treatment Not on filedocumented as of this encounter Procedures Procedure Name Priority Date/Time Associated Diagnosis Comme nts INTERNAL MEDICINE Routine 04/17/2021 2:10 PM Resu lts for this IMAGE EXAM CDT procedure are i n the results section. documented in this encounter Results Cardiac-Internal Medicine Image Exam (04/17/2021 2:10 PM CDT) Specimen (Source) Anatomical Collection Method Collection Time Re ceived Time Location / / Volume Laterality 04/17/2021 2:07 PM CDT Narrative [facility] - 04/17/2021 5:04 PM CDT This order has been created and auto-finalized to support the import of images acquired without order. The clini ben documentation to support these images can be found on the encounter jerman t produced images. Provider Not In System IMG NON RAD IMAGING PROCEDUR ES Performing Organization Address City/State/ZIP Code Phon e Number [facility] NA documented in this encounter Visit Diagnoses Not on filedocumented in this encounter
--- OUTSIDE RECORDS SUMMARY | 2022-04-25 13:46 | XMS_ITS | Encounter Summary ---
:1940 Author Organization [facility] Address [address] [place] [address] Care Team Providers Name Role Phone Fabian Arias MD Primary Care Provider Encounter Details Date Type Department Care Team Description 04/04/2022 Orders Only [facility] O f Landon Zarate MD [phone] [place] [address] [place], [place] [phone] (Wo rk) Social History Tobacco Use Types Packs/Day Years Used Date Smoking Tobacco: Smoker, Current Cigarettes Started: 07/01/1976 Status Unknown Sex Assigned at Date Recorded Not on file documented as of this encounter Plan of Treatment Not on filedocumented as of this encounter Procedures Procedure Name Priority Date/Time Associated Diagnosis Comme nts HD KINETICS Routine 04/04/2022 Results for thi s procedure are i n the results section . POST CHEMISTRY Routine 04/04/2022 Results for t his procedure are i n the results section . IMMUNO CHEMISTRY Routine 04/04/2022 Results for this procedure are i n the results section . HEMATOLOGY Routine 04/04/2022 Results for thi s procedure are i n the results section . CHEMISTRY Routine 04/04/2022 Results for thi s procedure are i n the results section . CHEMISTRY Routine 04/04/2022 Results for thi s procedure are i n the results section . SPECTRA [facility] LAB RESULTS Routine 04/04/2022 Resul ts for this procedure are i n the results section . documented in this encounter Results Spectra CEL[facility] Lab Results (04/04/2022) athologist Signature spKt/V 1.90 CELIA (Daugirdas II) eKt/V 1.63 CELIA ([place]) PCR 44.00 CELIA nPCR_HD 1.09 CELIA eKt/V Gotch 1.63 CELIA eNPCR 0.94 CELIA eKdrt/V 1.63 CELIA spKt/V Gotch 1.93 CELIA Specimen (Source) Anatomical Location Collection Method / Collectio n Time Received Time / Laterality Volume 04/04/2022 04/04/2022 Celia Ordering Provider LAB BLOOD ORDERABLES Performing Organization Address City/State/ZIP Code Phon e Number CELIA HD KINETICS (04/04/2022) P athologist Signature % Urea 80 65 - 80 % APS SPECTRA Reduction [facility] Specimen (Source) Anatomical Collection Method Collection Time Re ceived Time Location / / Volume Laterality 04/04/2022 04/05/2022 11:3 6 AM CDT Narrative APS SPECTRA [facility] - 04/05/2022 Unless otherwise specified, test(s) performed at: [facility], [address] [place] [address], [place] [address] MATERIAL CONTROL MANAGER: Vicente Flores M.D., Ph.D For any questions, please call customer service at FREQUENCY:MONTHLY Resulting Agency Comment Specimen source: Plasma Landon Calvert MD LAB BLOOD ORDERABLES Performing Organization Address City/State/ZIP [facility] Phon e Number APS SPECTRA [facility] (ABNORMAL) Spectrae Chemistry (04/04/2022) Patholo gist Method Time Signature BUN 51 (H) 6 - 19 APS SPECTRA mg/dL [facility] Creatinine 9.12 (H) 0.60 - APS SPECTRA 1.30 mg/dL [facility] BUN/Creatinine 5.6 (L) 10.0 - APS SPECTRA Ratio 20.0 [facility] Sodium 137 136 - 145 APS SPECTRA mEq/L [facility] Potassium 5.6 (H) 3.5 - 5.1 APS SPECTRA mEq/L [facility] Chloride 100 96 - 108 APS SPECTRA mEq/L [facility] Bicarbonate 21 20 - 31 APS SPECTRA (CO2) mEq/L [facility] Comment: Please note change in reference range. Calcium 9.9 8.7 - 10.4 mg/dL APS SPECTRA [facility] Comment: Please note change in reference range. Corrected Calcium 9.8 8.7 - 10.4 mg/dL APS S PECTRA [facility] Comment: Corrected Calcium is not equivalent to m easured Ionized Calcium. Phosphorus 7.2 (H) 2.6 - 4.5 mg/dL APS SPECTRA [facility] Calcium Phosphorus Product 71 (H) 0 - 54 APS SPECTRA [facility] Calcium Phosporus Product, Cor 71 (H) 0 - 54 APS SPECTRA [facility] Alkaline Phosphatase 69 35 - 104 U/L APS SP ECTRA [facility] Total Protein 6.6 6.0 - 8.5 g/dL APS SPECTRA [facility] Albumin 4.1 3.5 - 5.2 g/dL APS SPECTRA [facility] [place] Globulin, Total 2.5 2.0 - 4.0 g/dL APS SPECT RA [facility] A/G Ratio 1.6 1.0 - 2.0 APS SPECTRA [facility] Magnesium 2.2 1.6 - 2.6 mg/dL APS SPECTRA [facility] Ferritin 228 10 - 291 ng/mL APS SPECTRA [facility] Iron 79 30 - 160 mcg/dL APS SPECTRA [facility] UIBC 145 (L) 155 - 355 mcg/dL APS SPECTRA [facility] TIBC 224 185 - 515 mcg/dL APS SPECTRA [facility] Iron Saturation (TSat) 35 20 - 55 % APS SPE CTRA [facility] Specimen (Source) Anatomical Collection Method Collection Time Re ceived Time Location / / Volume Laterality 04/04/2022 04/05/2022 7:03 AM CDT Narrative APS SPECTRA [facility] - 04/05/2022 Unless otherwise specified, test(s) performed at: [facility] [place] [address] MATERIAL CONTROL MANAGER: Vicente Flores M.D., Ph.D For any questions, please call customer service at FREQUENCY:MONTHLY Resulting Agency Comment Specimen source: Serum Landon Calvert MD LAB BLOOD ORDERABLES Performing Organization Address City/State/ZIP Code Phon e Number APS SPECTRA [facility] IMMUNO CHEMISTRY (04/04/2022) athologist Signature Hep B Surface Negative Negative [...] and remains reactive/positive throughout the recovery stage. Please note, effective 03/26/2022, the a victorina test result was obtained using the [employer] Liaison XL chemilumin escent method. Results obtained with different assay methods or kits can not be used interchangeably. Specimen (Source) Anatomical Collection Method Collection Time Re ceived Time Location / / Volume Laterality 04/04/2022 04/05/2022 9:38 AM CDT Resulting Agency Comment Specimen source: Plasma Landon Calvert MD LAB BLOOD ORDERABLES Performing Organization Address City/[facility] Code Phon e Number APS SPECTRA [facility] (ABNORMAL) Spectrae Chemistry (04/04/2022) P athologist Signature PTH 619 (H) 16 - 80 APS SPECTRA pg/mL [facility] Specimen (Source) Anatomical Collection Method Collection Time Re ceived Time Location / / Volume Laterality 04/04/2022 04/05/2022 9:38 AM CDT Narrative APS SPECTRA [facility] - 04/05/2022 Unless otherwise specified, test(s) performed at: [facility], [address] [place] [address], [place] [address] MATERIAL CONTROL MANAGER: Vicente Flores M.D., Ph.D For any questions, please call customer service at FREQUENCY:MONTHLY Resulting Agency Comment Specimen source: Plasma Landon Calvert MD LAB BLOOD ORDERABLES Performing Organization Address City/State/ZIP Code Phon e Number APS SPECTRA [facility] POST CHEMISTRY (04/04/2022) P athologist Signature BUN Post 10 6 - 19 APS SPECTRA Dialysis mg/dL [facility] Specimen (Source) Anatomical Collection Method Collection Time Re ceived Time Location / / Volume Laterality 04/04/2022 04/05/2022 11:3 6 AM CDT Narrative APS SPECTRA [facility] - 04/05/2022 Unless otherwise specified, test(s) performed at: [facility], [facility] [place] [address] MATERIAL CONTROL MANAGER: Vicente Flores M.D., Ph.D For any questions, please call customer service at FREQUENCY:MONTHLY Resulting Agency Comment Specimen source: Plasma Landon Calvert MD LAB BLOOD ORDERABLES Performing Organization Address City/[facility] Code Phon e Number APS SPECTRA [facility] (ABNORMAL) HEMATOLOGY (04/04/2022) Analysis Performed At Patho logist Time Signature WBC 7.06 4.80 - APS SPECTRA 10.80 [facility] 1000/mcL RBC 4.97 4.20 - APS SPECTRA 5.40 [facility] mill/mcL Hemoglobin 13.3 12.0 - APS SPECTRA 16.0 g/dL [facility] Hemoglobin x 3 39.9 36.0 - APS SPECTRA 48.0 % [facility] Hematocrit 41.8 37.0 - APS SPECTRA 47.0 % [facility] MCV 84 80 - 100 APS SPECTRA fl [facility] MCH 26.7 (L) 27.0 - APS SPECTRA 31.0 pg [facility] MCHC 31.8 30.0 - APS SPECTRA 36.0 g/dL [facility] RDW 18.1 (H) 11.5 - APS SPECTRA 14.5 % [facility] Platelets 301 130 - 400 APS SPECTRA 1000/mcL [facility] Specimen (Source) Anatomical Collection Method Collection Time Re ceived Time Location / / Volume Laterality 04/04/2022 04/05/2022 4:55 AM CDT Narrative APS SPECTRA [facility] - 04/05/2022 Unless otherwise specified, test(s) performed at: [facility], [facility] [place] [address] MATERIAL CONTROL MANAGER: Vicente Flores M.D., Ph.D For any questions, please call customer service at FREQUENCY:MONTHLY Resulting Agency Comment Specimen source: Blood Landon Calvert MD LAB BLOOD ORDERABLES Performing Organization Address City/[facility] Phon e Number APS SPECTRA [facility] documented in this encounter Visit Diagnoses Not on filedocumented in this encounter Care Teams Production Supervisor Relationship Specialty Start Date End Date Fabian Arias MD PCP - General Family Medicine 09/04/[address] [place] [address] documented as of this encounter
--- OUTSIDE RECORDS SUMMARY | 2022-04-25 13:46 | XMS_ITS | Encounter Summary ---
:1940 Author Organization [facility] Address [address] [place] [address] Care Team Providers Name Role Phone Fabian Arias MD Primary Care Provider Encounter Details Date Type Department Care Team Description 03/21/2022 Orders Only [facility] O f Landon Zarate MD [phone] [place] [address] [place], [place] [phone] (Wo rk) Social History Tobacco Use Types Packs/Day Years Used Date Smoking Tobacco: Smoker, Current Cigarettes Started: 07/01/1976 Status Unknown Sex Assigned at Date Recorded Not on file documented as of this encounter Plan of Treatment Not on filedocumented as of this encounter Procedures Procedure Name Priority Date/Time Associated Diagnosis Comme nts HEMATOLOGY Routine 03/21/2022 Results for thi s procedure are in the resu lts section. documented in this encounter Results HEMATOLOGY (03/21/2022) P athologist Signature Hemoglobin 12.7 12.0 - APS SPECTRA 16.0 g/dL [facility] Hemoglobin x 3 38.1 36.0 - APS SPECTRA 48.0 % [facility] Specimen (Source) Anatomical Collection Method Collection Time Re ceived Time Location / / Volume Laterality 03/21/2022 03/22/2022 1:00 PM CDT Narrative APS SPECTRA [facility] - 03/22/2022 Unless otherwise specified, test(s) performed at: [facility], [address] [place] [address], [place] [address] METAL MOULDER'S ASSISTANT: Vicente Flores M.D., Ph.D For any questions, please call customer service at FREQUENCY:OTHER Resulting Agency Comment Specimen source: Blood Landon Calvert MD LAB BLOOD ORDERABLES Performing Organization Address City/State/ZIP Code Phon e Number APS SPECTRA [facility] documented in this encounter Visit Diagnoses Not on filedocumented in this encounter Care Teams Contract Graphic Designer Relationship Specialty Start Date End Date Fabian Arias MD PCP - General Family Medicine 09/04/[address] [place] [address] documented as of this encounter
--- OUTSIDE RECORDS SUMMARY | 2022-04-25 13:46 | XMS_ITS | Encounter Summary ---
:1940 Author Organization [facility] Address [address] [place] [address] Care Team Providers Name Role Phone Fabian Arias MD Primary Care Provider Encounter Details Date Type Department Care Team Description 02/07/2022 Orders Only [facility] O f Landon Zarate MD [phone] [place] [address] [place], [place] [phone] (Wo rk) Social History Tobacco Use [...] 02/08/2022 Unless otherwise specified, test(s) performed at: [facility], [address] [place] [address], [place] [address] ABORIGINAL LIAISON OFFICER: Vicente Flores M.D., Ph.D For any questions, please call customer service at FREQUENCY:OTHER Resulting Agency Comment Specimen source: Blood Landon Calvert MD LAB BLOOD ORDERABLES Performing Organization Address City/State/ZIP Code Phon e Number APS SPECTRA [facility] documented in this encounter Visit Diagnoses Not on filedocumented in this encounter Care Teams Personal Banking Representative Relationship Specialty Start Date End Date Fabian Arias MD PCP - General Family Medicine 09/04/[address] [place] [address] documented as of this encounter
--- OUTSIDE RECORDS SUMMARY | 2022-04-25 13:46 | XMS_ITS | Encounter Summary ---
:1940 Author Organization [facility] Address [address] [place] [address] Care Team Providers Name Role Phone Fabian Arias MD Primary Care Provider Encounter Details Date Type Department Care Team Description 03/14/2022 Orders Only [facility] O f Landon Zarate MD [phone] [place] [address] [place], [place] [phone] (Wo rk) Social History Tobacco Use Types Packs/Day Years Used Date Smoking Tobacco: Smoker, Current Cigarettes Started: 07/01/1976 Status Unknown Sex Assigned at Date Recorded Not on file documented as of this encounter Plan of Treatment Not on filedocumented as of this encounter Procedures Procedure Name Priority Date/Time Associated Diagnosis Comme nts HEMATOLOGY Routine 03/14/2022 Results for thi s procedure are in the resu lts section. documented in this encounter Results (ABNORMAL) HEMATOLOGY (03/14/2022) Analysis Performed At Patho logist Time Signature Hemoglobin 11.7 (L) 12.0 - APS SPECTRA 16.0 g/dL [facility] Hemoglobin x 3 35.1 (L) 36.0 - APS SPECTRA 48.0 % [facility] Specimen (Source) Anatomical Collection Method Collection Time Re ceived Time Location / / Volume Laterality 03/14/2022 03/15/2022 2:20 PM CDT Narrative APS SPECTRA [facility] - 03/15/2022 Unless otherwise specified, test(s) performed at: [facility], [address] [place] [address] [address] Martinez[facility] [place] [address] ACCOUNT ADMINISTRATOR: Vicente Flores M.D., Ph.D For any questions, please call customer service at FREQUENCY:OTHER Resulting Agency Comment Specimen source: Blood Landon Calvert MD LAB BLOOD ORDERABLES Performing Organization Address City/State/ZIP Code Phon e Number APS SPECTRA [facility] documented in this encounter Visit Diagnoses Not on filedocumented in this encounter Care Teams Jukebox Checker Relationship Specialty Start Date End Date Fabian Arias MD PCP - General Family Medicine 09/04/[address] [place] [address] documented as of this encounter
--- OUTSIDE RECORDS SUMMARY | 2022-04-25 13:46 | XMS_ITS | Clinical Summary ---
:1940 Author Organization [facility] Address [address] [place] [address] Care Team Providers Name Role Phone Fabian [...] Encounters Date Type Specialty Care Team Description 04/18/2022 Orders Only NephLandon Stewart MD 04/18/2022 Treatment Landon Calvert MD 04/11/2022 Orders Only NephLandon Stewart MD 04/11/2022 Treatment Landon Calvert MD 04/04/2022 Orders Only NephLandon Stewart MD 03/28/2022 Orders Only NephLandon Stewart MD 03/21/2022 Orders Only Landon Kemp MD 03/21/2022 Treatment Landon Calvert MD 03/14/2022 Orders Only NephLandon Stewart MD 03/14/2022 Treatment Landon Calvert MD 03/07/2022 Orders Only Nephrology Landon Calvert MD 02/28/2022 Orders Only Nephrology Landon Calvert MD 02/21/2022 Orders Only NephLandon Stewart MD 02/21/2022 Treatment Landon Calvert MD 02/14/2022 Orders Only NephLandon Stewart MD 02/07/2022 Orders Only NephLandon Stewart MD 02/07/2022 Treatment Landon Calvert MD 02/05/2022 Telephone Nephrology Alma Sr RN ESRD Pos t-Discharge 02/02/2022 Treatment Adriane Robles MA 01/31/2022 Orders Only NephLandon Stewart MD 01/24/2022 Orders Only NephLandon Stewart MD 01/24/2022 Treatment Landon Calvert MD from Last 3 [...] Comments Blood Pressure 130/80 09/05/2020 1:08 PM ELIGIBILITY TECHNICIAN Pulse 87 09/05/2020 1:08 PM ELIGIBILITY TECHNICIAN Temperature 36.6 ??C (97.8 ??F) 06/02/2020 12:00 PM ELIGIBILITY TECHNICIAN Respiratory Rate - - Oxygen Saturation 98% 09/05/2020 1:08 PM ELIGIBILITY TECHNICIAN Inhaled Oxygen Concentration - - Weight 48.5 kg (107 lb) 09/05/2020 1:08 PM ELIGIBILITY TECHNICIAN Height 160 cm (5' 3) 09/05/2020 1:08 PM ELIGIBILITY TECHNICIAN Body Mass Index 18.95 09/05/2020 1:08 PM ELIGIBILITY TECHNICIAN Plan of Treatment Health Maintenance Due Date Last Done Comments Hepatitis B Vaccine (1 of 5 - Risk Dialysis 4-dose 1962 series) Pneumococcal Vaccine: 65+ Years (2 - PCV) 11/03/20112010 Influenza Vaccine (#1) 2022 Procedures Procedure Name Priority Date/Time Associated Diagnosis Comme nts HEMATOLOGY Routine 04/18/2022 Results for thi s procedure are i n the results section . HEMATOLOGY Routine 04/11/2022 Results for thi s procedure are i n the results section . SPECTRA CEL[facility] LAB RESULTS Routine 04/04/2022 Resul ts for this procedure are i n the results section . HD KINETICS Routine 04/04/2022 Results for thi [...] n the results section . HEMATOLOGY Routine 03/28/2022 Results for thi s procedure are i n the results section . HEMATOLOGY Routine 03/21/2022 Results for thi s procedure are i n the results section . HEMATOLOGY Routine 03/14/2022 Results for thi s procedure are i n the results section . SPECTRA CELIA LAB RESULTS Routine 03/07/2022 Resul ts for this procedure are i n the results section . HEMATOLOGY Routine 03/07/2022 Results for thi s procedure are i n the results section . HD KINETICS Routine 03/07/2022 Results for thi s procedure are i n the results section . POST CHEMISTRY Routine 03/07/2022 Results for t his procedure are i n the results section . IMMUNO CHEMISTRY Routine 03/07/2022 Results for this procedure are i n the results section . CHEMISTRY Routine 03/07/2022 Results for thi s procedure are i n the results section . CHEMISTRY Routine 03/07/2022 Results for thi s procedure are i n the results section . HEMATOLOGY Routine 02/28/2022 Results for thi s [...] section . from Last 3 Months Results HEMATOLOGY (04/18/2022)Only the most recent of13 resultswithin the time period is included. athologist Signature Hemoglobin 12.4 12.0 - APS SPECTRA 16.0 g/dL [facility] Hemoglobin x 3 37.2 36.0 - APS SPECTRA 48.0 % [facility] Specimen (Source) Anatomical Collection Method Collection Time Re ceived Time Location / / Volume Laterality 04/18/2022 04/19/2022 3:48 AM CDT Narrative APS SPECTRA [facility] - 04/19/2022 Unless otherwise specified, test(s) performed at: [facility], [address] [place] [address], [place] [address] TRANSITIONAL CARE NURSE: Vicente Flores M.D., Ph.D For any questions, please call customer service at FREQUENCY:OTHER Resulting Agency Comment Specimen source: Blood Landon Calvert MD LAB BLOOD ORDERABLES Performing Organization Address City/State/ZIP Code Phon e Number APS SPECTRA [facility] HD KINETICS (04/04/2022)Only the most recent of3 resultswithin the time period is included. athologist Signature % Urea 80 65 - 80 % APS SPECTRA Reduction [facility] Specimen (Source) Anatomical Collection Method Collection Time Re ceived Time Location / / Volume Laterality 04/04/2022 04/05/2022 11:3 6 AM CDT Narrative APS SPECTRA [facility] - 04/05/2022 Unless otherwise specified, test(s) performed at: [facility], [address] [place] [address], [place] [address] TRANSITIONAL CARE NURSE: Vicente Flores M.D., Ph.D For any questions, please call customer service at FREQUENCY:MONTHLY Resulting Agency Comment Specimen source: Plasma Landon Calvert MD LAB BLOOD ORDERABLES Performing Organization Address [facility] Phon e Number APS SPECTRA [facility] POST CHEMISTRY (04/04/2022)Only the most recent of3 resultswithin the time period is included. athologist Signature BUN Post 10 6 - 19 APS SPECTRA Dialysis mg/dL [facility] Specimen (Source) Anatomical Collection Method Collection Time Re ceived Time Location / / Volume Laterality 04/04/2022 04/05/2022 11:3 6 AM CDT Narrative APS SPECTRA [facility] - 04/05/2022 Unless otherwise specified, test(s) performed at: [facility], [address] [place] [address], [place] [address] TRANSITIONAL CARE NURSE: Vicente Flores M.D., Ph.D For any questions, please call customer service at FREQUENCY:MONTHLY Resulting Agency Comment Specimen source: Plasma Landon Calvert MD LAB BLOOD ORDERABLES Performing Organization Address [facility] Phon e Number APS SPECTRA [facility] IMMUNO CHEMISTRY (04/04/2022)Only the most recent of3 resultswithin the time period is included. athologist [...] victorina test result was obtained using the [employer] Liaison XL chemilumin escent method. Results obtained [...] Number APS SPECTRA [facility] (ABNORMAL) Spectrae Chemistry (04/04/2022)Only the most recent of7 resultswithin the time period is included. [facility] gist Method Time Signature BUN 51 (H) [...] 04/05/2022 Unless otherwise specified, test(s) performed at: [facility], [address] [place] [address], [place] [address] TRANSITIONAL CARE NURSE: Vicente Flores M.D., Ph.D For any questions, please call customer service at FREQUENCY:MONTHLY Resulting Agency Comment Specimen source: Serum Landon Calvert MD LAB BLOOD ORDERABLES Performing Organization Address City/State/ZIP Code Phon e Number APS SPECTRA [facility] Spectra [facility] Lab Results (04/04/2022)Only the most recent of3 resultswithin the time period is included. P athologist Signature spKt/V 1.90 CEL[facility] (Daugirdas [...] Address City/State/ZIP Code Phon e Number CELIA from Last 3 Months Insurance Payer Benefit Plan / Subscriber ID Effective Dates Phone Addre ss Type Group UHC MEDICARE UHC WELLMED [id number] 2020-Presen [phone] [address] [id number] MCR ADV t [address] [place], ([place]) [place] [address] UHC MEDICARE AARP MEDICARE [id number] 2021-Prese [phone] [address] [address] COMPLETE nt 0 [address]ILLIE [place] ([id number]) [place] [address] Zamzam Garibay Personal/Famil Self 1940 [id number] [address] (Home) [place] [address] Care Teams Vacuum Tank Tender Relationship Specialty Start Date End Date Fabian Arias MD PCP - General Family Medicine 09/04/[address] [place] [address]
--- OUTSIDE RECORDS SUMMARY | 2022-04-25 13:46 | XMS_ITS | Encounter Summary ---
:1940 Author Organization [facility] Address [address] [place] [address] Care Team Providers Name Role Phone Fabian Arias MD Primary Care Provider Encounter Details Date Type Department Care Team Description 03/07/2022 Orders Only [facility] f Landon Zarate MD [phone] [place] [address] [place], [place] [phone] (Wo rk) Social History Tobacco Use Types Packs/Day Years Used Date Smoking Tobacco: Smoker, Current Cigarettes Started: 07/01/1976 Status Unknown Sex Assigned at Date Recorded Not on file documented as of this encounter Plan of Treatment Not on filedocumented as of this encounter Procedures Procedure Name Priority Date/Time Associated Diagnosis Comme nts HD KINETICS Routine 03/07/2022 Results for thi [...] this encounter Results Spectra [facility] Lab Results (03/07/2022) athologist Signature eKt/V 1.80 [facility] ([place]) PCR 48.14 [facility] eKdrt/V 1.81 [facility] spKt/V 2.10 [facility] ([place] II) eNPCR 1.13 [facility] eKt/V Gotch 1.81 [facility] nPCR_HD 1.20 [facility] spKt/V Gotch 2.15 [facility] Specimen (Source) Anatomical Location Collection Method / Collectio n Time Received Time / Laterality Volume 03/07/2022 03/07/2022 Celia Ordering Provider LAB BLOOD ORDERABLES Performing Organization Address City/State/ZIP Code Phon e Number [facility] (ABNORMAL) HEMATOLOGY (03/07/2022) Analysis Performed At Patho logist Time Signature WBC 6.16 4.80 - [facility] 10.80 [facility] 1000/mcL RBC 4.44 4.20 - [facility] 5.40 [facility] mill/mcL Hemoglobin 11.8 (L) 12.0 - [facility] 16.0 g/dL [facility] Hemoglobin x 3 35.4 (L) 36.0 - [facility] 48.0 % [facility] Hematocrit 37.0 37.0 - [facility] 47.0 % [facility] MCV 83 80 - 100 [facility] fl [facility] MCH 26.6 (L) 27.0 - [facility] 31.0 pg [facility] MCHC 32.0 30.0 - [facility] 36.0 g/dL [facility] RDW 22.0 (H) 11.5 - [facility] 14.5 % [facility] Platelets 298 130 - 400 [facility] 1000/mcL [facility] Specimen (Source) Anatomical Collection Method Collection Time Re ceived Time Location / / Volume Laterality 03/07/2022 03/09/2022 6:41 AM CDT Narrative [facility] - 03/09/2022 Unless otherwise specified, test(s) performed at: [facility], [address] [place] [address] tamar [facility] [place] [address] FORM LAYER: Vicente Flores M.D., Ph.D For any questions, please call customer service at FREQUENCY:MONTHLY Resulting Agency Comment Specimen source: Blood Landon Calvert MD LAB BLOOD ORDERABLES Performing Organization Address City[place] [facility] Number [facility] (ABNORMAL) HD KINETICS (03/07/2022) P athologist Signature % Urea 83 (H) 65 - 80 % [facility] Reduction [facility] Specimen (Source) Anatomical Collection Method Collection Time Re ceived Time Location / / Volume Laterality 03/07/2022 03/09/2022 5:57 AM CDT Resulting Agency Comment Specimen source: Plasma Landon Calvert MD LAB BLOOD ORDERABLES Performing Organization Address City/State/ZIP Code Phon e Number [facility] POST CHEMISTRY (03/07/2022) athologist Signature BUN Post 10 6 - 19 [facility] Dialysis mg/dL [facility] Specimen (Source) Anatomical Collection Method Collection Time Re ceived Time Location / / Volume Laterality 03/07/2022 03/09/2022 5:57 AM CDT Narrative [facility] - 03/09/2022 Unless otherwise specified, test(s) performed at: [facility], [address] [place] [address], [place] [address] FORM LAYER: Vicente Flores M.D., Ph.D For any questions, please call customer service at FREQUENCY:MONTHLY Resulting Agency Comment Specimen source: Plasma Landon Calvert MD LAB BLOOD ORDERABLES Performing Organization Address City/[facility] Code Phon e Number [facility] IMMUNO CHEMISTRY (03/07/2022) athologist Signature Hep B Surface Negative Negative [facility] Ag [facility] Specimen (Source) Anatomical Collection Method Collection Time Re ceived Time Location / / Volume Laterality 03/07/2022 03/09/2022 6:21 AM CDT Resulting Agency Comment Specimen source: Plasma Landon Calvert MD LAB BLOOD ORDERABLES Performing Organization Address City/State/ZIP Code Phon e Number [facility] (ABNORMAL) Spectrae Chemistry (03/07/2022) P athologist Signature PTH 522 (H) 16 - 80 [facility] pg/mL [facility] Specimen (Source) Anatomical Collection Method Collection Time Re ceived Time Location / / Volume Laterality 03/07/2022 03/09/2022 6:21 AM CDT Narrative [facility] - 03/09/2022 Unless otherwise specified, test(s) performed at: [facility], [address] [place] [address] Syed Martinez, [place] [address] FORM LAYER: Vicente Flores M.D., Ph.D For any questions, please call customer service at FREQUENCY:MONTHLY Resulting Agency Comment Specimen source: Plasma Landon Calvert MD LAB BLOOD ORDERABLES Performing Organization Address City/State/ZIP Code Phon e Number [facility] (ABNORMAL) Spectrae Chemistry (03/07/2022) [facility] gist Method Time Signature BUN 59 (H) 6 - 19 [facility] mg/dL [facility] Creatinine 9.39 (H) 0.60 - [facility] 1.30 mg/dL [facility] BUN/Creatinine 6.3 (L) 10.0 - [facility] Ratio 20.0 [facility] Sodium 137 136 - 145 [facility] mEq/L [facility] Potassium 5.0 3.5 - 5.1 [facility] mEq/L [facility] Chloride 98 96 - 108 [facility] mEq/L [facility] Bicarbonate 24 20 - 31 [facility] (CO2) mEq/L [facility] Comment: Please note change in reference range. Calcium 9.9 8.7 - 10.4 mg/dL [facility] Comment: Please note change in reference range. Corrected Calcium 9.7 8.7 - 10.4 mg/dL [facility]PS S PECTRA [facility] Comment: Corrected Calcium is not equivalent to m easured Ionized Calcium. Phosphorus 5.7 (H) 2.6 - 4.5 mg/dL [facility] Calcium Phosphorus Product 56 (H) 0 - 54 [facility] Calcium Phosporus Product, Cor 55 (H) 0 - 54 [facility] Total Protein 6.7 6.0 - 8.5 g/dL [facility] Albumin 4.2 3.5 - 5.2 g/dL [facility] Globulin, Total 2.5 2.0 - 4.0 g/dL APS SPECT RA [facility] A/G Ratio 1.7 1.0 - 2.0 [facility] Iron 59 30 - 160 mcg/dL [facility] UIBC 156 155 - 355 mcg/dL [facility] K [facility] TIBC 215 185 - 515 mcg/dL [facility] Iron Saturation (TSat) 27 20 - 55 % APS SPE CTRA [facility] Specimen (Source) Anatomical Collection Method Collection Time Re ceived Time Location / / Volume Laterality 03/07/2022 03/08/2022 1:28 PM CDT Narrative [facility]PS [facility] - 03/08/2022 Unless otherwise specified, test(s) performed at: [facility], [address] [place] [address], [place] [address] FORM LAYER: Vicente Flores M.D., Ph.D For any questions, please call customer service at FREQUENCY:MONTHLY Resulting Agency Comment Specimen source: Serum Landon Cavlert MD LAB BLOOD ORDERABLES Performing Organization Address City/State/ZIP Code Phon e Number [facility] documented in this encounter Visit Diagnoses Not on filedocumented in this encounter Care Teams Invoice Control Clerk Relationship Specialty Start Date End Date Fabian Arias MD PCP - General Family Medicine 09/04/[address] [place] [address] documented as of this encounter
--- OUTSIDE RECORDS SUMMARY | 2022-04-25 13:46 | XMS_ITS | Encounter Summary ---
:1940 Author Organization [facility] Address [address] [place] [address] Care Team Providers Name Role Phone Fabian Arias MD Primary Care Provider Encounter Details Date Type Department Care Team Description 03/21/2022 Treatment [facility] Landon Zarate MD [address] [place] [address] [place], [place] [phone] (Wo rk) Social History Tobacco Use Types Packs/Day Years Used Date Smoking Tobacco: Smoker, Current Cigarettes Started: 07/01/1976 Status Unknown Sex Assigned at Date Recorded Not on file documented as of this encounter Miscellaneous Notes Dialysis Note - Landon Calvert MD - 03/21/2022 10:40 AM CDT Date: Mar 21, 2022 Patient Name: Zamzam Garibay : 1940 Chart #: [id number] Sex: F This patient was personally seen for a basic visit as part of routine weekly dialysis care. A reviewof the dialysis treatment, blood pressure, estimated dry weight and recent lab values was made. These were discussed with the patient and staff as necessary. Treatment Data for 03/21/2022 started at:5:53 AM Dialyzer: 160NRe Optiflux Na: 137 mEq/L Bicarb: 33 mEq/L Dialysate: 2.0 K, 2.25 Ca, 1.0 Mg, 100 Dextrose (G2231) Dialysate/Machine Temp (prescribed): 37 C Dialysate/Machine Temp (actual): 36.4 C BFR (prescribed): 400 BFR (actual): 400 Prescribed time: 03:30 EDW: 52 kg Access Type: Active (In Use):CVCatheter-Tunneled/Chest Pre Dialysis Vitals (for 03/21/2022 5:45 AM ) Pre BP (sit): 149/76 Pre Wt: 56.1 kg Temp: 97.7 F Post Dialysis Vitals (for 03/19/2022 9:25 AM ) Post BP (sit): 142/63 Post Wt: 54.8 kg Current Dialysis Vitals (for 03/21/2022 9:22 AM ) BP (sit): 93/56 AP(-) / RN TELEHEALTH: 235/186 Pulse: 84 Chairside data as of 03/21/2022 9:22 AM Last 3 Treatments 03/19/2022 03/16/2022 03/14/2022 EDW (kg) 52 52 52 Weight Pre (kg) 56.3 56.1 57.1 Weight Post (kg) 54.8 54.7 55.4 Dialytic Weight Loss (kg) -1.5 -1.4 -1.7 EDW Deviation (kg) 2.8 2.7 3.4 BP Sit Pre 184/98 154/59 178/93 BP Sit Post 142/63 151/75 159/66 UF Rate (mL/kg/hr) 8 8 9 Prescribed BFR 400 400 400 Average Delivered BFR 410 410 410 Prescribed Treatment Time 03:30 03:30 03:30 Actual Treatment Time 03:31 03:31 03:32 Treatment Medication Orders Medication Sig Start [...] mcg IVP Every 2 weeks 02/28/2022 02/27/2023 PIT SHOVELER: Landon Calvert MD LOCATION: [phone] SCHEDULE: - 2nd Shift ACCESS: EDW: kg. DIALYZER: HD DURATION: NEEDLE SIZE: ANTICOAG: BATH: QB: ml/min QD: ml/min Subjective Tolerating dialysis well. 03/21: She reports feeling excellent and has [...] prior to Saturday placement with HD at [facility] that . 02/21: She says she feels [...] for access placement on Friday 02/02 at [facility] and had hyperkalemia and surgery cancelled and she dialyzed in the hospital instead. She had improved gain <1L today and will get close to EDW but not to dry weight. Her BP is a little better with this gain and on HD today looks excellent. She has no symptoms and feels well today. 01/24: She missed extra treatment on Sat at [facility]. Still above EDW. Trying to pull 2.6L today, traditionally has had issues with low BP with UF >2.3L but her BP is >200 systolic starting. Increased lisinopril last time, will increase again today. AVF/AVG surgery scheduled next week at [facility]. She feels well and has no dyspnea [...] yesterday but she will need surgery at [facility] so this is scheduled in a couple [...] She denies any SOB or orthopnea at [facility]. 12/06/21: She says she feels well. Her [...] her daughter and grandchild up in the [facility]. 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 Can't remove [...] HD. 04/26/21: She was hospitalized briefly at [facility] for dyspnea, no pneumonia but rather related to CHF. She saw cardiology in follow-up in clinic, lisinopril and metoprolol and lasix with UF on HD to dry weight recommended. She is not interested in home dialysis, discussed today. 04/12/21: Patient new to me. She followed with associate publisher in [facility], did not follow-up,crashed into dialysis in January [...] mouth once a day 04/12/2021 RenaPlex-D (vit b,r-jm-dfyi-selen-vit d3-e) 800 mcg-12.5 mg-2,000 unit tablet Take 1 tablet by mouthonce a day trazodone 50 mg tablet Take 1 tablet by mouth every night as needed 04/12/2021 Allergy List Allergen Reaction Reaction Severity Onset Date Venofer Skin rash Medications reviewed and no changes were made. BUN mg/dL 59 (03/07/22) 80 (01/31/22) 62 [...] (01/31/22) 2.0500 (01/03/22) 1.9300 (11/29/21) 2.1000 (11/01/21) HEMOGLOBIN (G/DL) IN BLOOD g/dL 11.7 (03/14/22) 11.8 (03/07/22) 11.1 (02/28/22) 10.8 (02/21/22) 11.1 (02/14/22) PLATELETS 1000/mcL 298 (03/07/22) 255 (01/31/22) 340 (01/03/22) 358 (11/29/21) 352 (11/01/21) IRON SATURATION % 6 (11/29/21) 14 (11/01/21) 11 (10/04/21) 16 (08/30/21) 18 (08/02/21) FERRITIN ng/mL 214 (01/03/22) 28 (10/18/21) 39 (10/04/21) 293 (07/05/21) 250 (05/10/21) ALBUMIN (G/DL) g/dL 4.2 (03/07/22) 4.2 (01/31/22) 4.1 (01/03/22) Sodium mEq/L 137 (03/07/22) 137 (01/31/22) 141 (01/03/22) POTASSIUM (MMOL/L) IN SER/PLAS mEq/L 5.0 (03/07/22) 4.6 (01/31/22) 4.7 (01/03/22) BICARBONATE (CO2) mEq/L 24 (03/07/22) 25 (01/31/22) 24 (01/03/22) BUN/CREATININE (MASS RATIO) IN SER/PLAS 6.3 (03/07/22) 9.8 (01/31/22) 7.9 (01/03/22) CALCIUM mg/dL 9.9 (03/07/22) 9.5 (02/21/22) 9.8 (01/31/22) Calcium Phos Product 56 (03/07/22) 58 (01/31/22) 68 (01/03/22) CALCIUM (MG/DL) CORRECTED FOR ALBUMIN IN SER/PLAS mg/dL 9.7 (03/07/22) 9.6 (01/31/22) 8.8 (01/03/22) PHOSPHATE (MG/DL) IN SER/PLAS mg/dL 5.7 (03/07/22) 5.9 (01/31/22) 7.6 (01/03/22) IPTH pg/mL 522 (03/07/22) 607 (02/21/22) 684 (01/03/22) Vascular Access Assessment: Type of access: Catheterand [...] surgeon consult Impression and Plan Stable dialysis Increase EDW to 54 Kg Access placement next week Fri at [facility] Landon Calvert MD [ Signed And locked electronically On 03/21/2022 at 10:42:13 AM ] Transcribed: Landon Calvert ( 03/21/2022 ) documented in this encounter Plan of Treatment Not on filedocumented as of this encounter Visit Diagnoses Not on filedocumented in this encounter Care Teams Spot Man Relationship Specialty Start Date End Date Fabian Arias MD PCP - General Family Medicine 09/04/[address] [place] [address] documented as of this encounter
--- OUTSIDE RECORDS SUMMARY | 2022-04-25 13:46 | XMS_ITS | Encounter Summary ---
:1940 Author Organization [facility] Address [address] [place] [address] Care Team Providers Name Role Phone Fabian Arias MD Primary Care Provider Encounter Details Date Type Department Care Team Description 04/18/2022 Orders Only [facility] O f Landon Zarate MD [address] [place] [phone] [place], [place] [phone] (Wo rk) Social History Tobacco Use Types Packs/Day Years Used Date Smoking Tobacco: Smoker, Current Cigarettes Started: 07/01/1976 Status Unknown Sex Assigned at Date Recorded Not on file documented as of this encounter Plan of Treatment Not on filedocumented as of this encounter Procedures Procedure Name Priority Date/Time Associated Diagnosis Comme nts HEMATOLOGY Routine 04/18/2022 Results for thi s procedure are in the resu lts section. documented in this encounter Results HEMATOLOGY (04/18/2022) P athologist Signature Hemoglobin 12.4 12.0 - [facility] 16.0 g/dL [facility] Hemoglobin x 3 37.2 36.0 - [facility] 48.0 % [facility] Specimen (Source) Anatomical Collection Method Collection Time Re ceived Time Location / / Volume Laterality 04/18/2022 04/19/2022 3:48 AM CDT Narrative [facility] - 04/19/2022 Unless otherwise specified, test(s) performed at: [facility], [address] [place] [address], [place] [address] MEDICAL SECRETARY: Vicente Flores M.D., Ph.D For any questions, please call customer service at FREQUENCY:OTHER Resulting Agency Comment Specimen source: Blood Landon Calvert MD LAB BLOOD ORDERABLES Performing Organization Address City/State/ZIP Code Phon e Number [facility]PS [facility] documented in this encounter Visit Diagnoses Not on filedocumented in this encounter Care Teams Communications Associate Relationship Specialty Start Date End Date Fabian Arias MD PCP - General Family Medicine 09/04/[address] [place] [address] documented as of this encounter
--- OUTSIDE RECORDS SUMMARY | 2022-04-25 13:46 | XMS_ITS | Encounter Summary ---
:1940 Author Organization [facility] Address [address] [place] [id number] Care Team Providers Name Role Phone Unavailable Primary Care Provider Unavailable Reason for Visit Auth/Cert Specialty Diagnoses / Procedures Referred By Contact Refer red To Contact Diagnoses Dyspnea Pneumonia Procedures DIR Referral ID Status Reason Start Date Expiration Date Visits Requ ested Visits Authorized [id number] 1 1 Encounter Details Date Type Department Care Team Description 04/17/2021 - Hospital Encounter [facility] Federico Vasquez M.D. [address] [place] [phone] Dyspnea (Primary Dx) 04/20/2021 [facility] Gilbert Dorsey M.D. [address] [place] [phone] [facility] Jonah Kamara M.D. [address] [place] [phone] [facility], Third Floor [address] [place] [phone] Social History Tobacco Use Types Packs/Day Years Used Date Smoking Tobacco: Every Day Cigars Tobacco Cessation: Counseling Given: Yes Comments: A few puffs a day Sex Assigned at Date Recorded Not on file documented as of this encounter Last Filed Vital Signs Vital Sign Reading Time Taken Comments Blood Pressure 98/62 04/20/2021 12:15 PM CDT Pulse 79 04/20/2021 12:15 PM CDT Temperature 36.8 ??C (98.2 ??F) 04/20/2021 12:15 PM CDT Respiratory Rate 16 04/20/2021 12:15 PM CDT Oxygen Saturation 100% 04/20/2021 12:15 PM CDT Inhaled Oxygen Concentration - - Weight 40.9 kg (90 lb 2.7 oz) 04/19/2021 11:06 AM CDT Height 160 cm (5' 2.99) 04/18/2021 11:44 AM CDT Body Mass Index 15.98 04/18/2021 11:44 AM CDT documented in this encounter Discharge Summaries Chantelle Mak APRN, C.N.P., D.N.P. - 04/20/2021 11:27 AM CDT DISCHARGE SUMMARY BRIEF OVERVIEW Discharge Hospital: [facility] Discharge Provider: Gilbert Drosey M.D. Discharge Provider Team: [facility] Internal Medicine ([facility]) - [facility] Medicine ([facility]) No primary care provider on file. PCP Phone Number: None PCP Fax Number: None Admission Date: 04/17/2021 Discharge Date: 04/20/21 PRINCIPAL DIAGNOSIS Dyspnea SECONDARY DIAGNOSES Principal Problem: Dyspnea Active Problems: Hypertension And End Stage Renal Disease (HCC) Nicotine Dependence Other Tobacco Product Frailty Age Related Physical Debility Anemia In Chronic Kidney Disease Acute On Chronic Systolic (Congestive) Heart Failure (HCC) Depression Anxiety Resolved Problems: * No resolved hospital problems. * DISCHARGE DISPOSITION Home or Self Care [1] ACTIVE ISSUES REQUIRING FOLLOW UP Recommendations: 1). Continue home meds as prescribed on after visit summary. We have discontinued your hydralazine and replaced this with metoprolol and lisinopril for your new heart failure. Continue fluid restriction diet with 2 L per day. Monitor weight closely every 2-3 days and trend values. 2). F/u with PCP on 04/24/2021 3). F/u with outpatient Cardiology on 07/04/2021 OUTPATIENT FOLLOW UP Scheduled Appointments 07/03/2021 9:30 AM Grant Ibarra M.D. Cardiovascular Disease 07/03/2021 10:30 AM CVD HEART FAILURE NURSE Valerie BRISCOE Cardiovascular Disease For appointment details refer to your Patient Appointment Guide. TEST RESULTS PENDING AT DISCHARGE Pending Labs None DETAILS OF HOSPITAL STAY REASON FOR ADMISSION Dyspnea HOSPITAL COURSE Ms. Zamzam Garibay is a 80 y.o. female with medical comorbidities notable for end-stage renal diseaseon thrice weekly in-center hemodialysis (MWF), CHF, hypertension, depression/anxiety, and nicotine dependency, who was admitted to hospital directly from the emergency department in [place] after presenting there April 17, 2021 with dyspnea. History is provided by the patient, but also by the patient's son, Rafita ([phone]) via telephone. The patient had recently been living in [place]. Rafita reports that she has a several year history of chronic kidney disease. She has chronic hypertension, but no known diabetes. Rafita is not otherwise aware of why the patient developed chronic kidney disease. Regardless, she was initiated on hemodialysis during a recent hospital stay in [place] at the end of January via a right-sided tunneled hemodialysis catheter. She has a right-arm fistula in place that is currently maturing. She was discharged to a nursing facility on March 08, 2021 in [place] but did not like it there. She would intermittently refuse hemodialysis sessions for no specific reason. Her son, rafita, came to visit and took the patient up to [place] on April 02, 2021 where he lives in [place]. Rafita and his take the patient to and from hemodialysis. Although she was weak and ???wobbly?? following her recent hospital stay, rafita notes that her functional status has gradually improved. Early this morning at around 6:00 a.m., the patient woke with a sensation as though she could not catch her breath. She had no associated chest pain but did have headache. No vision changes or palpitations. Symptoms were worse laying down and better when upright. She last underwent hemodialysis per her usual schedule on Wednesday, April 14, 2021. She would have been due for her next dialysis session today. She ate fried chicken and drank soda over the weekend as part of a celebration with family. Due to ongoing dyspnea, she presented to the emergency department in [place]. Initially, she was hypoxic to 85% on room air and tachycardic with a heart rate of 110 beats per minute. Blood pressureswere elevated at 184/115 with respiratory rate 20. She was afebrile. Blood laboratory studies were notable for hemoglobin 9.6, WBC 8.1, lactate 1.2, BNP 175,000, creatinine 4, BUN 106, negative initial troponin, ECG revealing some ???possible ischemic changes, T-wave inversions is noted. COVID swab in [place] was negative. She was accepted for direct admission at [facility]. Upon arrival to general care floor, she remained hemodynamically stable and afebrile. She was dialyzed shortly after arrival with 3.2 L removed. Her dyspnea essentially resolved after dialysis. Due to her initial dyspnea and elevated D- dimer, she underwent TTE and CTA to rule out DVT. Her CTA was negative for DVT but did show she small right pleural effusion and presumptive cardiac dysfunction due to contrast delay and IVC and hepatic veins. TTE showed severely enlarged left ventricle with EF of 25%; severely generalized left ventricular hypokinesis with regional variability; increased concentric left ventricular wall thickness, moderate mitral valve regurg and [id number] enlarged right ventricular size with moderately severe reduced systolic function. She was also noted tohave moderate tricuspid valve regurg as well. Cardiology was consulted to help with management. Current recommendations are to optimize medical management with beta blockade and HONG-inhibitor. Repeat TTE in 3 months. She was started on 12.5 mg of metoprolol succinate and 2.5 of lisinopril, prior to discharge and tolerated this well. Her home hydralazine was discontinued. She will follow-up with the PCP on 04/25/21 as well as outpatient follow-up with Cardiology. Upon discharge, patient remained hemodynamically stable, tolerating both food and drink, ambulating without any issues. MEDICATIONS CHANGED DURING THIS HOSPITAL STAY Medications stopped: Hydralazine Medications added: lasix, lisinopril, and metoprolol CONSULTS ORDERED DURING THIS ADMISSION IP CONSULT TO NEPHROLOGY IP CONSULT TO DIETITIAN IP CONSULT TO CARDIOLOGY CONDITION AT DISCHARGE Improved I saw and evaluated Zamzam Garibay today and provided counseling [id number] at bedside. I personally spent a total of greater than 30 minutes in counseling and coordination of care as described above to facilitate the hospital discharge. Discharge instructions were provided to the patient and caregiver(s). documented in this encounter Discharge Instructions Discharge InstructionsBeena De Leon - 04/18/2021 7:23 AM CDT You were discharged from the [facility] Medicine ([facility]) Service. Please identify this service name if youcall with questions after hospitalization. [facility] experts agree: You should get a COVID-19 vaccine as soon as it's available to you. ??? The vaccines that we???re recommending have been approved for safe use. ??? [facility] will continue to coordinate with state and local governments on future vaccine distribution phases. o If your primary care provider is at [facility] and you plan to receive your vaccination at [facility], please ensure that you have activated your Patient Portal at [employer] to allow [facility] to communicate to you about the scheduling process. ??? Practice social distancing, wear a mask properly outside your home, wash your hands frequently, and follow your state and local recommendations until the spread has stopped. ??? The vaccine may not be recommended to those with certain health conditions. Talk to your health care provider if you have questions about receiving the vaccine. Discharge Instr - Alesha Mcintosh R.N. - 04/20/2021 12:18 PM CDT 2000 mL fluid restriction Weigh every 2-3 days, trend values AttachmentsThe following attachments cannot be sent through Care Everywhere. Lisinopril (By mouth) ([place])Metoprolol (By mouth) ([place])Multivitamins, Adult Formula (By mouth) ([place])documented in this encounter Medications at Time of Discharge Medication Sig Dispensed Refills Start Date End Date calcitRIOL (ROCALTROL) Take 0.25 mcg by 0 0.25 mcg capsule mouth daily. calcium acetate,phosphat Take 667 mg by mouth 0 bind, (PHOSLO) 667 mg 3 (three) times a day (169 mg calcium) capsule with meals. lisinopriL Take 1 tablet (2.5 mg 30 tablet 0 04/20/2021 (PRINIVIL,ZESTRIL) 2.5 total) by mouth mg tablet daily. Follow-up with PCP for additional refills. multivitamin renal Take 1 tablet by 30 tablet 0 04/20/2021 failure (DIALYVITE) mouth daily. Take 100-1 mg tablet after dialysis on dialysis days. Follow-up with dialysis center for additional refills. escitalopram (LEXAPRO) 5 Take 5 mg by [...] additional refills. documented as of this encounter Progress Notes Joanna Travis APRN, C.N.P., D.N.P. - 04/20/2021 7:49 AM CDT SUBJECTIVE Ms. Garibay was seen and evaluated this morning in her hospital room. During the time of my visit, she was resting comfortably in bed. She tells me that dialysis went well yesterday without issues from her perspective. She denies dyspnea, chest pain, nausea, and dizziness. She tells me that she will bedischarging from the hospital today. She verbalized understanding that she should present to outpatient dialysis tomorrow, per her typical dialysis schedule. She denies any questions or concerns for Nephrology today. I have reviewed the current medication list. OBJECTIVE Admission Weight: 45 kg Current Weight: 40.9 kg VITAL SIGNS Temperature: [36.4 ??C-37.1 ??C] 36.6 ??C Resp Rate: [15-20] 20 Blood Pressure: (72-128)/(35-85) 121/85 SpO2: [90 %-100 %] 90 % Pulse Rate: [62-98] 82 I/O 04/18 P.O. 550 921 Crystalloid Bolus 290 Continuous Medications 0 Intermittent Medications 250 Total Intake(mL/kg) 550 (13.1) 1461 (35.7) Urine (mL/kg/hr) 400 (0.4) Dialysis 2762 Total Output 3162 Net +550 -1701 Unmeasured Urine Occurrence 2 x PHYSICAL EXAM General: Ms. Garibay is alert, cooperative and pleasant resting in her bed in no acute distress. Lungs: Respirations appear unlabored, breathing on room air. Extremities: No edema of the upper or lower extremities bilaterally. Vessels: Right tunneled dialysis catheter in place. Site is dry and free of erythema. Nontender to palpation. DIAGNOSTICS Results from last 7 days Lab Units 04/19/21 0737 04/17/21 1713 HEMOGLOBIN g/dL 9.3* 9.1* WBC x10(9)/L 5.0 7.0 PLATELETS AUTO x10(9)/L 337 335 Last 2 results Lab Units 04/20/21 0825 04/19/21 0737 04/17/21 1448 SODIUM mmol/L -- 138 141 BICARBONATE S mmol/L -- 25 24 BUN mg/dL -- 62* 96* CREATININE mg/dL -- 3.94* 4.27* CALCIUM mg/dL -- 8.4* 8.9 PHOSPHORUS INORGANIC mg/dL 5.5* 5.8* 6.7* MAGNESIUM mg/dL -- 2.1 -- ASSESSMENT / PLAN #1 End stage renal disease related to??hypertension, maintained on incenter hemodialysis??since 03/2021 #2 Admitted on 04/17/21 for dyspnea #3 Chronic anemia related to end stage renal disease #4 Secondary hyperparathyroidism related to chronic renal failure #5??Hypertension #6 Acute on chronic systolic (congestive) heart failure (EF 25%, TTE 04/18) #7 Moderate mitral valve regurgitation, moderate tricuspid valve regurgitation (TTE 04/18) ?? While in the hospital we challenged her dry weight due to dilated IVC with reduced inspiratory collapse noted on TTE obtained 04/18. Ms. Garibay dialyzed yesterday for 3 hours and had an overall net fluid removal of 2.3 L. Her dialysis session was terminated 30 minutes early in the setting of hypotension and nausea. Her postdialysis weight was 40.9 kg. ?? Recommend continuing to aim for of dry weight of 41 kg as she tolerates upon hospital dismissal. With recent initiation of beta-jj and HONG-inhibitor therapy, recommend close monitoring of her blood pressures. Next dialysis session will be tomorrow in the outpatient setting, per her typical dialysis routine. ?? Continued Recommendations: -- Hemodialysis on??Saturday, Saturday and Saturday -- Dose medications for patients that require dialysis -- Renal dialysis diet to include low phosphorus, low sodium, and low potassium -- 1.5 L per day fluid restriction -- Dialyvite one tablet each evening -- Daily weights, standing if possible -- Continue oral furosemide 80 mg by mouth twice daily -- Started on metoprolol succinate 12.5 mg daily at night and oral lisinopril 2.5 mg daily in the morning on 04/19/2021 -- Continue calcium acetate 667 mg p.o. 3 times a day with meals. Please hold any time that she is NPO -- Continue calcitriol 0.25 mcg by mouth daily -- Continue furosemide 80 mg PO BID ? Thank you for the opportunity to participate in 's care. Plan of care was discussed with Dr. Juarez, Nephrology netsuite consultant For questions or concerns please page the Nephrology [employer]/PA pager ([phone]). Chantelle Mak APRN, C.N.P., D.N.P. - 04/19/2021 4:55 PM CDT [facility] Medicine 11 ([facility]) Progress Notes SUBJECTIVE was seen in the context of morning rounds. No acute events overnight. She endorses sleeping well and has no acute complaints. She underwent dialysis today with 2.9 L removed. She did have an episode of hypotension with systolics in the 70s; however, she remained asymptomatic. Cardiology was consulted to assist in management and optimization of her heart failure. Recommendations were to start metoprolol and lisinopril, which she is agreeable. Denies fever, chills, nausea, vomiting, abdominal pain, chest pain, or dyspnea. I have reviewed the current medication list. OBJECTIVE VITAL SIGNS Temperature: [36.3 ??C-37 ??C] 37 ??C Resp Rate: [15-18] 15 Blood Pressure: (72-138)/(35-83) 126/83 SpO2: [97 %-100 %] 100 % Pulse Rate: [62-98] 96 Intake/Output Last 24 Hours: Intake/Output Summary (Last 24 hours) at 04/19/2021 1655 Last data filed at 04/19/2021 1300 Gross per 24 hour Intake 2010 ml Output 2962 ml Net -951 ml PHYSICAL EXAM General: Thin, 80-year-old female, appearing stated age, resting comfortably in bed, no acute distress Mental: alert and oriented x 3. Answers questions appropriately. CAM negative. HEENT: trachea midline, pupils PERRL, EOM intact, oral mucosa pink and moist without lesions CV: Mild JVD, regular rate and rhythm with 2/6 murmur appreciated. No appreciable upper/ lower extremity edema. PULM: clear to auscultation bilaterally; no rales, rhonchi, or wheezes. Respirations even and non-labored on room air. Abd: Soft, non-tender, non-distended. Active bowel sounds Skin: No new lesions or rashes. Warm, well-perfused. Neuro: Cranial nerves II-XII grossly intact. Motor and sensation symmetric bilaterally in all extremities. DIAGNOSTICS I have personally reviewed labs, diagnostics, and electronic health record. ASSESSMENT / PLAN Ms. Garibay is hospitalized on [facility] Medicine 11 ([facility]) for evaluation and management of: Dyspnea Ms. 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 Per chart review, prior to admission, patient had started feeling dyspneic on Saturday evening (after dinner), which lasted throughout the night, limiting her sleep dramatically as she was unable to lie flat. She had undergone dialysis on Saturday as per usual, and ended up eating a fairly salty dinner onSunday with her family including fried chicken and soda. However, this was not entirely out of her norm. She is originally from [place], and recently moved to live with her son, Rafita in [place], [place]. She had recently started hemodialysis at the end January via tunneled dialysis line. Has undergone right arm fistula, which is currently maturing. Prior to Saturday, she had been in her routine state health. At the outside ED, she was noted to be hypoxic with SpO2 of 85 and tachycardic with heart rates 110.Her blood pressure was elevated at 184/117. Laboratory data were was significant for hemoglobin 9.8,WBCs of 8.1, lactate 1.2, be and P of 175 1000, creatinine 4, BUN 106, and elevated troponins 149-->151 (with no delta). ECG showed possible ischemic changes with T-wave inversion. COVID swab was negative. She was accepted for direct transfer to [facility] on 04/17/21. She underwent dialysis on 04/17/2021 with 3.2 L removed. TTE from 04/19/21 showed severely enlarged left ventricle with EF of 25%; severely generalized left ventricular hypokinesis with regional variability; increased concentric left ventricular wall thickness, moderate mitral valve regurg and mild-to- moderate enlarged right ventricular size with moderately severe reduced systolic function. She was also noted to have moderate tricuspid valve regurg as well. Cardiology was consulted to help with management. Current recommendations are to optimize medical management with beta blockade and HONG-inhibitor. Repeat TTE in 3 months. #1 Dyspnea, concerning for flash pulmonary edema- improved #2 Acute On Chronic Systolic (Congestive) Heart Failure (HCC) #3 Hypertension And End Stage Renal Disease (HCC) on hemodialysis (MWF) #4 Secondary hyperparathyroidism related to chronic renal failure #5 Anemia In Chronic Kidney Disease Assessment: Clinically, she is doing well and is much improved from admission. She appears euvolemicon exam today and is oxygenating well on room air. She underwent TTE yesterday which showed severelyleft ventricular size with EF of 25% and severe generalized left ventricular hypokinesis. This was discussed with Cardiology who or recommending optimization with medication management including metoprolol, lisinopril, and repeat echocardiogram in 3 months. She underwent dialysis today for 2.9 L removed. She did have an episode hypotension with terminationof her dialysis (30 minutes before and time secondary to this); however, she remained asymptomatic. In the setting of hypotension and adjusting home blood pressure medications, we will monitor overnight and consider discharge tomorrow pending stability. Next dialysis session is on 04/21/21. Will start12.5 of metoprolol succinate tonight, followed by 2.5 mg lisinopril in the morning. Plan: -- appreciate nephrology following and managing dialysis. Next hemodialysis session on 04/19/2021 -- initiate metoprolol 12.5 mg succinate tonight and lisinopril 2.5 mg (starting tomorrow) -- discontinue hydralazine (this was discussed with Nephrology who agrees with plan above) -- repeat TTE in 3 months per cardiology -- continue to hold antibiotics for now -- continue home meds: Calcitrol, calcium acetate, and furosemide (80 mg b.i.d.) -- VTE with subcu heparin -- still awaiting outside records ?? #6 Nicotine Dependence Other Tobacco Product #7 Depression Anxiety #8 Frailty Age Related Physical Debility #9 Weight loss #10 Malnutrition Assessment: Stable. Current weight today is 40.9 kilos. Nutrition was consulted and recommended increased oral intake as well as small, any meals throughout the day. Patient does report a 10 lb weight loss in the last 6 months or so; however, she has been working on her nutrition and caloric intake asbest as she can. Recently moved in with her son, Rafita, due to difficulty living alone in [place]. Sheotherwise manages her own ADLs and IDLs. Plan: -- continue home meds: escitalopram. -- could consider mirtazapine as an outpatient to help with appetite -- nutrition consult placed Medication reconciliation Home medications continued: Calcitrol, Lexapro, hydralazine, calcium acetate Home medications held: Furosemide New Medications: Heparin Current activity/mobility: PAMP Level 3 (walks occasionally, majority of day is spent sitting in chair) Diet: general diet Tubes/lines: PIV VTE prophylaxis: heparin Code status: Full Code Disposition: Home Stable to discharge criteria (not yet met): Nutrition/hydration, Urinary/fecal output, Vital signs, Labs, Functional status, Pain control and Tests/procedures/consults Counseling was provided [id number] at bedside regarding the plan of care as stated above. I personally spent over half of a total 35 minutes in counseling and coordination of care as documented above. Shelby Lo O.T., CORNELL - 04/19/2021 3:24 PM CDT Occupational Therapy consult was received and chart review was completed. Zamzam Garibay is at their functional baseline for mobility/ADLs. Patient states she does not have any concerns with returning home as she has a daughter who works from home and could assist if needed. Patient does not require skilled therapy intervention at this time. Will defer evaluation and discontinue order. If patient's status should change significantly, please place a new order as appropriate. Shital Lo O.T., CORNELL Kristyn Goodman Pharm.D., R.Ph. - 04/19/2021 9:59 AM CDT Pharmacist Progress Note Reason for admission: dyspnea PMH: ESRD (HD MWF), CHF, HTN, depression, anxiety, nicotine use OBJECTIVE Home medications: medication list completed by Pharmacist ??? Changed: torsemide (? Taking) --furosemide Prophylaxis: heparin 5000 units subcut q12hr (weight) LBM: 04/19 ASSESSMENT / PLAN 1.) Dyspnea/CHF. Found to have heart failure with EF 25%. Cards may be consulted. NT-proBNP > 60,000. Lasix 80mg BID currently. Not on optimal HFrEF treatment yet. 2.) ESRD: HD MWF. Neph consulted. Continues home calcitriol 667 mg TIDm (Phos 5.8). Calcitriol 0.25 mcg/d. Patient tells admit provider not taking torsemide - not ordered. Recommend initiating renal multivitamin 3.) HTN: resumed home hydralazine 25 mg BID. SBps 160s - monitor need for BP optimization 4.) QTc prolongation: Corrected 483 I believe. K/ Mag normal. Continue to monitor - patient on escitalopram 5mg/day. Jeny Goodman Pharm.D., R.Ph. [phone] ENT Dominique Griffith APRN C.N.P., M.S.N. - 04/19/2021 8:35 AM CDT SUBJECTIVE Ms. Garibay was seen and evaluated personally by me during dialysis. She states that she is feeling well. She is sitting in a recliner for her dialysis session. She denies shortness of breath, chest pain, nausea or vomiting. Discussed that we will continue to challenge her dry weight due to her echo findings yesterday. She is okay with this plan. She has no other questions or concerns for nephrology. I was called by Cardiology and the primary medicine team in regards to initiation of beta-jj therapy and HONG-inhibitor therapy. Discussed that we will have to closely watch her blood pressure to ensure that she does not become hypotensive with fluid pull during dialysis. It was decided we will discontinue her hydralazine with initiation of metoprolol succinate and lisinopril. I have reviewed the current medication list. OBJECTIVE Admission Weight: 45 kg Current Weight: 43 kg VITAL SIGNS Temperature: [36.3 ??C-37.1 ??C] 36.9 ??C Resp Rate: [16-18] 16 Blood Pressure: (106-138)/(51-80) 122/65 SpO2: [94 %-100 %] 98 % Pulse Rate: [87-99] 87 Intake/Output Summary (Last 24 hours) at 04/19/2021 0836 Last data filed at 04/19/2021 0803 Gross per 24 hour Intake 1401 ml Output 200 ml Net 1201 ml PHYSICAL EXAM General: Ms. Garibay is alert, cooperative and pleasant resting in her dialysis recliner in no acute distress. Heart: Regular rate and rhythm. Normal S1-S2. No rubs, gallops or murmurs appreciated. Lung: Fine bibasilar crackles on posterior lower lobes bilaterally. Extremities: No edema of the upper or lower extremities bilaterally. Vessels: Right tunneled dialysis catheter in place that is working well with dialysis. Blood flow rate running appropriately at 350 mL/min. Site is dry and free of erythema. Nontender to palpation. DIAGNOSTICS I have reviewed labs and diagnostics. ASSESSMENT / PLAN #1 End stage renal disease related to hypertension, maintained on incenter hemodialysis since 03/2021 #2 Admitted on 04/17/21 for dyspnea #3 Chronic anemia related to end stage renal disease #4 Secondary hyperparathyroidism related to chronic renal failure #5 Hypertension ?? Ms. Garibay will dialyze today for 3.5 hours with a net fluid removal of 3 L as tolerated. She is dialyzing on a 3 potassium, 2.5 calcium dialysate with a bicarb of 35 and sodium of 137. We are challenging her dry weight today due to dilated IVC with reduced inspiratory collapse on TTE from yesterday.Next scheduled dialysis will be Saturday but we will continue to monitor daily for further fluid challenging as needed. Addendum @ 1100: I was notified that she dropped her blood pressure is in became nauseated. She was given a slight 100 cc fluid bolus with improvement of her symptoms. She was taken off dialysis 30 minutes early. Her post dialysis weight today was 40.9 kg. She had a total fluid removal of 2.5 L. We will continue to aim for of dry weight of 41 kg as she tolerates. With initiation of beta-jj and HONG-inhibitor therapy will have to closely watch her blood pressures. New Recommendations: -- Hemodialysis next on Saturday -- Dialyvite one tablet each evening Recommendations: -- Hemodialysis on Saturday, Saturday and Saturday -- Dose medications for patients that require dialysis -- Renal dialysis diet to include low phosphorus, low sodium, and low potassium -- 1.5 L per day fluid restriction -- Daily weights, standing if possible -- Continue oral furosemide 80 mg by mouth twice daily -- Started on metoprolol succinate 12.5 mg daily at night and oral lisinopril 2.5 mg daily in the morning on 04/19/2021 -- Continue calcium acetate 667 mg p.o. 3 times a day with meals. Please hold any time that she is NPO -- Continue calcitriol 0.25 mcg by mouth daily -- Continue furosemide 80 mg PO BID Thank you for the opportunity to participate in 's care. For questions or concerns please page the Nephrology [employer]/PA pager ([phone]). Gilbert Dorsey M.D. - 04/18/2021 7:05 PM CDT I saw and evaluated Zamzam Garibay on rounds today with our medicine team, and I agree with the findings and plan as documented in today's progress note by Chantelle Mak. #1 Dyspnea, concerning for flash pulmonary edema- improved #2 Acute On Chronic Systolic (Congestive) Heart Failure (HCC) #3 Hypertension And End Stage Renal Disease (HCC) on hemodialysis (MWF) #4 Secondary hyperparathyroidism related to chronic renal failure #5 Anemia In Chronic Kidney Disease #6 Nicotine Dependence Other Tobacco Product #7 Depression Anxiety #8 Frailty Age Related Physical Debility #9 Weight loss #10 Malnutrition Very pleasant patient with end-stage renal disease as well as newly identified EF 25% with family meal this weekend and subsequent orthopnea and acute shortness of breath, improved with hemodialysis. Given her BNP greater than 60,000 and bedside echo showing depressed EF, an echocardiogram was obtained which shows ejection fraction of 25%. No leukocytosis, fever, cough nor new sputum production (and procalcitonin was relatively low in thesetting of end-stage renal disease) and dyspnea improved with volume management so we have lower suspicion for clinically significant bacterial pneumonia. Cardiology consult appreciated; she is unable to report any prior history of heart failure diagnosisto us that she is aware of and is not on current optimal goal directed therapy. Currently with elevated JVP at 8cm but no longer with orthopnea nor dyspnea after dialysis and is without any lower extremity edema. 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 Counseling was provided [id number] at bedside regarding the plan of care as stated above. I personally spent over half of a total 35 minutes in counseling and coordination of care as documented above. Desiree Obrien P.T., M.H.A. - 04/18/2021 3:04 PM CDT Physical therapy order received and chart reviewed. Per discussion with patient's assigned nurse, patient is mobilizing well and does not need physical assistance. Per brief discussion with patient, patient has no concerns for return home and reports moving well with nursing. Patient seems to be at her baseline function and does not require skilled physical therapy services at this time. PT will discontinue PT order. Should patient's status change or if patient identifies a need that she would like addressed then a new PT order will need to be placed. Desiree Obrien P.T., M.H.A. Elvis Locke O.Doug. - 04/18/2021 2:59 PM CDT 04/18/21 1459 Reason Therapy Missed Reason Therapy Missed Medical hold Patient continues medical work up. OT will follow up with the patient on 04/19 to complete evaluation and treatment. Elvis Locke OT Kristyn Goodman Pharm.D., R.Ph. - 04/18/2021 1:13 PM CDT Pharmacist Progress Note Reason for admission: dyspnea PMH: ESRD (HD MWF), CHF, HTN, depression, anxiety, nicotine use OBJECTIVE Home medications: medication list completed by Pharmacist ??? Held: torsemide (? Taking) Prophylaxis: heparin 5000 units subcut q12hr (weight) LBM: not yet charted ASSESSMENT / PLAN 1.) Dyspnea: CT neg for PE. TTE pending - NT-proBNP > 60,000. 2.) ESRD: HD MWF. Neph consulted. Continues home calcitriol 667 mg TIDm (Phos 6.7). Calcitriol 0.25 mcg/d. Patient tells admit provider not taking torsemide - not ordered. Recommend initiating renal multivitamin 3.) HTN: resumed home hydralazine 25 mg BID. SBps 160s - monitor need for BP optimization 4.) QTc prolongation: Corrected 483 I believe. Potassium is normal, no magnesium check. Continue to monitor - patient on escitalopram 5mg/day. Jeny Goodman Pharm.D., R.Ph. [phone] Dariana Pinto, RACHELN, LD - 04/18/2021 11:56 AM CDT Clinical Nutrition: Initial Assessment Clinical Nutrition was requested to evaluate patient for positive nursing baseline nutrition screen with a MST score of 2 or greater. SUBJECTIVE Ms. Garibay is a 80 y.o. female admitted for dyspnea. differential diagnosis of pulmonary edema v. dietary indisgression over the weekend at family event. Pt is from [place] but recently moved in with son (04/02/21) here in [place] after being initiated on IHD. Nutrition related medical/surgical history: ESRD (IHD-MWF), CHF, HTN, depression/anxiety, and nicotine dependency Completed visit with patient today as part of face to face care. Current Nutrition (since admission): ate 50% of 1 meal so far this admission. Pt did not have menu in room at time of visit this AM so RD obtained and brought it to pt but then she went down for IHD sounable to order breakfast. RD ordered ONS per home regimen for her. Nutrition history: no weight history available but pt endorses weight loss (likely r/t recent hospitalization, SNF admission, and move to [place] in the last few months) and small improvment in gain. She reports since living with son she snacks quite a bit during the day as every one in the house cooks day and night. She takes 1 chocolate ensure/day per her report of what the dialysis RD has recommendedto her. She states she follows a renal diet at home but did not elaborate on this d/t being too tired Food Allergies: none Chewing/Swallowing Issues: none Nutrition education/counseling: RD encouraged oral intake OBJECTIVE Current nutrition orders: Current Diet Adult Diet Regular; 2000 mL Fluid; Renal (Dialysis) starting at 04/17 1427 Pertinent Labs: Last 2 results Lab Units 04/17/21 1448 POTASSIUM mmol/L 4.7 BUN mg/dL 96* CREATININE mg/dL 4.27* CRTS1 EGFR NON BLACK mL/min/BSA <15* CRTS1 EGFR BLACK mL/min/BSA <15* Lab Results Component Value Date CALCIUM 8.9 04/17/2021 LABPHOS 6.7 (H) 04/17/2021 Anthropometrics: Height: 160 cm Admission Weight: 45 kg (04/17/2021) Current Weight: 41.9 kg BMI (Calculated): 16.4 kg/m?? Weight change since admission: -3.1 kg no weight history available, pt reports weight loss, but unsure of amount Estimated Needs: Total Calorie Needs: 5943-4888 (HB+20%+250 for weight gain) calories/day Method to Estimate Energy Needs: [place] (Basal to Basal + 20%) Weight Used for Equation Calculations: 41.9 kg Total Protein Needs: 50 - 59 grams/day (Method to Estimate Protein Needs (g/kg): 1.2 - 1.4 gm/kg) Weight Used to Calculate Protein Needs (Kg): 41.9 kg Nutrition Diagnosis: Other (comment) (underweight) related to clinical status as evidenced by presumed loss and hx poor po with improvement, BMI <18.5 Malnutrition Criteria: Average estimated Intake: No Change Weight Loss: Unable to Assess (no wt hx and pt unsure) Body Fat: Unable to Assess (refused NFPE) Muscle Mass: Unable to Assess (refused NFPE) Nutritional Status: (unable to determine malnutrition status, but pt is at high risk for developing malnutrition) ASSESSMENT / PLAN Patient meets ASPEN/AND criteria for (unable to determine malnutrition status, but pt is at high risk for developing malnutrition) identified on 04/18/21 (see Nutrition Focused Physical Findings section for details). Nutrition Intervention: Interventions: Increase nutrient intake with small, frequent meals and/or snacks,Vitamin and mineralsupplements,Provide education to increase nutrition knowledge,Medical food supplement. Recommendations: 1. Recommend Dialyvite renal vitamin daily while on IHD 2. Encourage oral intake. Unable to determine malnutrition status at this time, however, pt is at high risk for developing malnutrition and is underweight. Monitoring/Evaluation: Nutrition parameter to monitor: Meals/Supplement Intake,Weight Status,Pertinent Labs,Fluid Balance . Desired Outcome: pt will improve nutritional status Patient Goal(s): 1. Pt will consume >50% of 3 meals/day 2. Pt will consume 1 Ensure Plus/day for additional calories and protein 3. Pt will maintain or gain weight For questions about patient's nutritional care please contact pager [phone] on weekdays or [phone] on weekends/holidays.. Chantelle Mak APRN, C.N.P., D.N.P. - 04/18/2021 11:37 AM CDT [facility] Medicine 11 ([facility]) Progress Notes SUBJECTIVE was seen in the context of morning rounds. No acute events overnight. She is resting comfortably in bed, in no acute distress. Briefly, she was admitted yesterday evening for dyspnea and concerns of fluid overload in the setting of end-stage renal disease and heart failure. BNP on admission was elevated at 60 K as well as elevated troponin no delta. She initially required supplemental oxygen which has since been weaned off. She was dialyzed for 3.2 L fluid removal yesterday. Overall, she feels great today and is back to her baseline. She is agreeable for us to obtain outside records as well as to undergo TTE and CTA today. Denies fever, chills, nausea, vomiting, abdominal pain, chest pain, or dyspnea. I have reviewed the current medication list. OBJECTIVE VITAL SIGNS Temperature: [36.2 ??C-37.5 ??C] 36.2 ??C Resp Rate: [18-20] 20 Blood Pressure: (128-165)/(77-108) 136/89 SpO2: [81 %-100 %] 100 % Flow Rate (L/min): [0 L/min-1 L/min] 0 L/min Pulse Rate: [69-107] 95 Intake/Output Last 24 Hours: Intake/Output Summary (Last 24 hours) at 04/18/2021 1137 Last data filed at 04/17/2021 2149 Gross per 24 hour Intake 300 ml Output 3250 ml Net -2950 ml PHYSICAL EXAM General: Thin, 80-year-old female, appearing stated age, resting comfortably in bed, no acute distress Mental: alert and oriented x 3. Answers questions appropriately. CAM negative. HEENT: trachea midline, pupils PERRL, EOM intact, oral mucosa pink and moist without lesions CV: Mild JVD, regular rate and rhythm with 2/6 murmur appreciated. No appreciable upper/ lower extremity edema. PULM: clear to auscultation bilaterally; no rales, rhonchi, or wheezes. Respirations even and non-labored on room air. Abd: Soft, non-tender, non-distended. Active bowel sounds Skin: No new lesions or rashes. Warm, well-perfused. Neuro: Cranial nerves II-XII grossly intact. Motor and sensation symmetric bilaterally in all extremities. DIAGNOSTICS I have personally reviewed labs, diagnostics, and electronic health record. ASSESSMENT / PLAN Ms. Gairbay is hospitalized on [place] [address] ([facility]) for evaluation and management of: Dyspnea Ms. 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 Per chart review, prior to admission, patient had started feeling dyspneic on Saturday evening (after dinner), which lasted throughout the night, limiting her sleep dramatically as she was unable to lie flat. She had undergone dialysis on Saturday as per usual, and ended up eating a fairly salty dinner onSunday with her family including fried chicken and soda. However, this was not entirely out of her norm. She is originally from [place], and recently moved to live with her son, Rafita in [place], [place]. She had recently started hemodialysis at the end January via tunneled dialysis line. Has undergone right arm fistula, which is currently maturing. Prior to Saturday, she had been in her routine state health. At the outside ED, she was noted to be hypoxic with SpO2 of 85 and tachycardic with heart rates 110.Her blood pressure was elevated at 184/117. Laboratory data were was significant for hemoglobin 9.8,WBCs of 8.1, lactate 1.2, be and P of 175 1000, creatinine 4, BUN 106, and elevated troponins 149-->151 (with no delta). ECG showed possible ischemic changes with T-wave inversion. COVID swab was negative. She was accepted for direct transfer to [facility] on 04/17/21. She underwent dialysis on 04/17/2021 with 3.2 L removed. Plan is to undergo TTE today and CTA. #1 Dyspnea, concerning for flash pulmonary edema- improved #2 Acute On Chronic Systolic (Congestive) Heart Failure (HCC) #3 Hypertension And End Stage Renal Disease (HCC) on hemodialysis (MWF) #4 Secondary hyperparathyroidism related to chronic renal failure #5 Anemia In Chronic Kidney Disease Assessment: As mentioned above, she was admitted for acute dyspnea that started on Saturday evening and progressed throughout the night, leading to her current admission. After undergoing dialysis yesterday, she is essentially back to her baseline today, and is oxygenating well on room air. She has absolutely no complaints during morning rounds. ED findings at outside hospital were suggestive of fluid overload with BNP of greater than 60,000. She was also noted to have mildly elevated procalcitonin level and D-dimer, which may be in the setting of end-stage renal disease coupled with fluid overload. Chest x-ray did show right lower lobe opacity which could represent edema, atelectasis, and/or infiltrate. The plan is to obtain CTA today to help better delineate and rule out PE and/or pneumonia. She will also undergo echocardiogram to evaluate heart function. She appears euvolemic on exam with mild JVD and no lower extremity edema. She is currently net negative 2.95 L. Weight today is 41.9. Nephrology is following and managing her dialysis. She will undergo hemodialysis again on 04/19/2021. Will also obtain outside records. Plan: -- appreciate nephrology following and managing dialysis. Next hemodialysis session on 04/19/2021 -- follow-up CT angiogram of chest to evaluate for PE and pneumonia -- follow-up TTE, and consider Cardiology consult if applicable -- continue to hold antibiotics for now -- continue home meds: Hydralazine, Calcitrol, and calcium acetate -- VTE with subcu heparin -- will obtain outside records ?? #6 Nicotine Dependence Other Tobacco Product #7 Depression Anxiety #8 Frailty Age Related Physical Debility #9 Weight loss #10 Malnutrition Assessment: Stable. Patient does report a 10 lb weight loss in the last 6 months or so; however, shehas been working on her nutrition and caloric intake as best as she can. Recently moved in with her son, Rafita, due to difficulty living alone in [place]. She otherwise manages her own ADLs and IDLs Plan: -- continue home meds: escitalopram. -- PT/OT consult -- social work consult -- nutrition consult placed Medication reconciliation Home medications continued: Calcitrol, Lexapro, hydralazine, calcium acetate Home medications held: Furosemide New Medications: Heparin Current activity/mobility: PAMP Level 3 (walks occasionally, majority of day is spent sitting in chair) Diet: general diet Tubes/lines: PIV VTE prophylaxis: heparin Code status: Full Code Disposition: Home Stable to discharge criteria (not yet met): Nutrition/hydration, Urinary/fecal output, Vital signs, Labs, Functional status, Pain control and Tests/procedures/consults Counseling was provided [id number] at bedside regarding the plan of care as stated above. I personally spent over half of a total 35 minutes in counseling and coordination of care as documented above. Joanna Arroyo APRN, C.N.Elyssa, M.S.N. - 04/18/2021 8:17 AM CDT SUBJECTIVE Ms. Garibay was seen and examined in her hospital room this afternoon. She tells me that dialysis went well and that she tolerated challenging her dry weight without difficulty. She denies any dyspnea, chest pain, cramping, or lightheadedness today. She feels that her breathing has returned to baseline. I reviewed that we will plan for her next dialysis to be tomorrow. She also tells me that she continues to produce quite a bit of urine. She has not been measuring her urine output here in the hospital. I have reviewed the current medication list. OBJECTIVE Admission Weight: 45 kg Current Weight: 41.9 kg VITAL SIGNS Temperature: [36.2 ??C-37.5 ??C] 36.2 ??C Resp Rate: [18-20] 20 Blood Pressure: (128-165)/(77-108) 136/89 SpO2: [81 %-100 %] 100 % Flow Rate (L/min): [0 L/min-1 L/min] 0 L/min Pulse Rate: [69-107] 95 I/O 04/16 P.O. 50 Intermittent Medications 250 Total Intake(mL/kg) 300 (7.1) Net +300 Unmeasured Urine Occurrence 1 x 2 x PHYSICAL EXAM General: is alert and oriented. Resting in the bed. Does not appear in acute distress. Cardiovascular: Regular rate and rhythm. Respiratory: Clear to ausculation throughout lung bazan bilaterally. Respirations are regular and non-labored. Breathing on room air. Extremities: No edema present in bilateral lower extremities. Vessels: Right IJ tunneled dialysis catheter is free from erythema and drainage at the exit site. DIAGNOSTICS Results from last 7 days Lab Units 04/17/21 1713 HEMOGLOBIN g/dL 9.1* WBC x10(9)/L 7.0 PLATELETS AUTO x10(9)/L 335 Last 2 results Lab Units 04/17/21 1448 SODIUM mmol/L 141 BICARBONATE S mmol/L 24 BUN mg/dL 96* CREATININE mg/dL 4.27* CALCIUM mg/dL 8.9 PHOSPHORUS INORGANIC mg/dL 6.7* ASSESSMENT / PLAN #1 End stage renal disease related to hypertension, maintained on [facility] hemodialysis since 03/2021 #2 Admitted on 04/17/21 for dyspnea #3 Chronic anemia related to end stage renal disease #4 Secondary hyperparathyroidism related to chronic renal failure #5 Hypertension ?? Ms. Garibay dialyzed yesterday for 3.5 hours with a net fluid removal of 3 L. She tolerated this well. We will plan on dialysis again next tomorrow. He understands she will undergo a TTE today. We will follow up on the results for further assessmentof her volume status overall. She is slightly below her dry weight after dialysis yesterday. We willcontinue to challenge her dry weight as blood pressure will allow. New Recommendations: -- Please obtain a BMP with magnesium and phosphorus with a.m. labs -- Hemodialysis again next tomorrow -- Dialyvite one tablet each evening -- Resume outpatient furosemide 80 mg PO BID -- Strict I&O monitoring--please measure urine output Recommendations: -- Hemodialysis on Saturday, Saturday and Saturday -- Dose medications for patients that require dialysis -- Renal dialysis diet to include low phosphorus, low sodium, and low potassium -- 1.5 L per day fluid restriction -- Daily weights, standing if possible -- Continue outpatient hydralazine 25 mg by mouth twice daily and furosemide 80 mg by mouth twice daiy -- Continue calcium acetate 667 mg p.o. 3 times a day with meals. Please hold any time that she is NPO -- Continue calcitriol 0.25 mcg by mouth daily ?? For questions or concerns, please page the Nephrology [employer]/PA pager ([phone]). Cadence Paul Pharm.D., R.Ph. - 04/17/2021 6:39 PM CDT Pharmacist Progress Note Reason for admission: dyspnea PMH: ESRD (HD MWF), CHF, HTN, depression, anxiety, nicotine use OBJECTIVE Home medications: medication list completed by Pharmacist ??? Held: torsemide (? Taking) Prophylaxis: heparin 5000 units subcut q12hr (weight) LBM: not yet charted ASSESSMENT / PLAN 1.) Dyspnea: Over-read for OSH CXR pending. CT angio pending to evaluate for PE. TTE pending - NT-proBNP > 60,000. 2.) ESRD: HD MWF. Neph consulted for HD today. Continues home calcitriol 667 mg TIDm (Phos 6.7). Calcitriol 0.25 mcg/d. Patient tells admit provider not taking torsemide - not ordered. Recommend initiating renal multivitamin 3.) HTN: resumed home hydralazine 25 mg BID. SBps 160s - monitor need for BP optimization 4.) QTc prolongation: Corrected QTc 503 -- consider repeating EKG within next 24 - 48 hours given escitalopram use Cadence Paul Pharm.D., R.Ph. [phone] Cadence Paul Pharm.D., R.Ph. - 04/17/2021 4:28 PM CDT Images from the original note were not included. Admission Medication History Note Adherence issues: Unable to assess Medication list source: Outside facility MAR Medication related information: Patient asked that pharmacy call [facility] for medication list. Updated according to discussion with ER Nurse ([phone]) Prior to Admission Medications Med List Status: Pharmacy Complete Set By: Cadence Paul Pharm.D., R.Ph. at 04/17/2021 4:27 PM Status Comment 04/17/2021 4:28 PM Per medication list at [facility] (per [employer] [phone]) Taking? Last Dose Informant Start Date End Date LT calcitRIOL (ROCALTROL) 0.25 mcg capsule -- -- Take 0.25 mcg by mouth daily. calcium acetate,phosphat bind, (PHOSLO) 667 mg (169 mg calcium) capsule -- -- Take 667 mg by mouth 3 (three) times a day with meals. escitalopram (LEXAPRO) 5 mg tablet -- -- Take 5 mg by mouth daily. furosemide (LASIX) 80 mg tablet -- -- Take 80 mg by mouth 2 (two) times a day. hydrALAZINE (APRESOLINE) 25 mg tablet -- -- Take 25 mg by mouth 2 (two) times a day. Cadence Paul, KaliaD, [facility] [phone] documented in this encounter H&P Notes Jonah Kamara M.D. - 04/17/2021 2:11 PM CDT [facility] Medicine ([facility]) Admission Note SUBJECTIVE CHIEF COMPLAINT Dyspnea. HISTORY OF PRESENT ILLNESS Ms. Zamzam Garibay is a 80 y.o. female with medical comorbidities notable for end-stage renal diseaseon thrice weekly in-center hemodialysis (MWF), CHF, hypertension, depression/anxiety, and nicotine dependency, who was admitted to hospital directly from the emergency department in [place] after presenting there April 17, 2021 with dyspnea. History is provided by the patient, but also by the patient's son, Rafita ([phone]) via telephone. The patient had recently been living in [place]. Rafita reports that she has a several year history of chronic kidney disease. She has chronic hypertension, but no known diabetes. Rafita is not otherwise aware of why the patient developed chronic kidney disease. Regardless, she was initiated on hemodialysis during a recent hospital stay in [place] at the end of January via a right-sided tunneled hemodialysis catheter. She has a right-arm fistula in place that is currently maturing. She was discharged to a nursing facility on March 08, 2021 in [place] but did not like it there. She would intermittently refuse hemodialysis sessions for no specific reason. Her son, rafita, came to visit and took the patient up to [place] on April 02, 2021 where he lives in [place]. Rafita and his take the patient to and from hemodialysis. Although she was weak and ???wobbly?? following her recent hospital stay, rafita notes that her functional status has gradually improved. Early this morning at around 6:00 a.m., the patient woke with a sensation as though she could not catch her breath. She had no associated chest pain but did have headache. No vision changes or palpitations. Symptoms were worse laying down and better when upright. She last underwent hemodialysis per her usual schedule on Wednesday, April 14, 2021. She would have been due for her next dialysis session today. She ate fried chicken and drank soda over the weekend as part of a celebration with family. Due to ongoing dyspnea, she presented to the emergency department in [place]. Initially, she was hypoxic to 85% on room air and tachycardic with a heart rate of 110 beats per minute. Blood pressureswere elevated at 184/115 with respiratory rate 20. She was afebrile. Blood laboratory studies were notable for hemoglobin 9.6, WBC 8.1, lactate 1.2, BNP 175,000, creatinine 4, BUN 106, negative initial troponin, ECG revealing some ???possible ischemic changes, T-wave inversions is noted. COVID swab in [place] was negative. She was accepted for direct admission at [facility]. Social History: She now lives with her son, Rafita, in [place], [place]. She previously lived in [place]. Shehas 2 additional sons that live in [place]. She previously chewed tobacco and continues to smoke cigarillos. She does not drink alcohol to any significant extent. Family History: The patient's sister has ESRD and is on dialysis. Her brother was on dialysis and has since passed. She reports taking hydralazine 25 mg PO BID, escitalopram 5 mg daily, and calcitriol 0.25 mg daily. REVIEW OF SYSTEMS Pertinent items are noted in HPI; all other review of systems was negative. OBJECTIVE VITAL SIGNS Temperature: [36.8 ??C] 36.8 ??C Resp Rate: [20] 20 Blood Pressure: (157-165)/(97-102) 165/97 SpO2: [88 %-97 %] 97 % Flow Rate (L/min): [1 L/min] 1 L/min Height: [160 cm] 160 cm Weight: [45 kg] 45 kg BSA (Calculated - sq m): [1.41 sq meters] 1.41 sq meters BMI (Calculated): [17.6 kg/m??] 17.6 kg/m?? Pulse Rate: [106-107] 106 PHYSICAL EXAM Constitutional General: She is not in acute distress. HENT Mouth/Throat: Mouth: Mucous membranes are moist. Pharynx: Oropharynx is clear. Cardiovascular Rate and Rhythm: Regular rhythm. Tachycardia present. Pulmonary Effort: No respiratory distress. Breath sounds: Normal breath sounds. Abdominal Tenderness: There is no abdominal tenderness. Musculoskeletal Right lower leg: No edema. Left lower leg: No edema. Skin General: Skin is warm and dry. Neurological Mental Status: She is alert and oriented to person, place, and time. Psychiatric Behavior: Behavior normal. DIAGNOSTICS I have reviewed reported blood laboratory studies obtained in [place]. I reviewed her outside portable chest x-ray which shows cardiomegaly, right-sided tunneled hemodialysis catheter, pulmonary venous congestion, and right lower lobe opacities. Diagnostic testing performed on arrival in [place] is gradually becoming available. D-dimer is elevated at 1741. Potassium is normal. BUN 96. Phosphorus 6.7. Initial troponin elevated at 149. Alkaline phosphatase slightly elevated at 114. Other liver tests are normal. A1c is slightly elevated. ECG reveals sinus tachycardia with left atrial enlargement, left axis deviation, right bundle- branch block, and evidence of left ventricular hypertrophy. I performed limited focused cardiac ultrasound. LV chamber is dilated with severely reduced LV systolic function. RV chamber is dilated with relatively preserved RV function. No significant pericardialeffusion. IVC is dilated without appreciable variation with respiration. ASSESSMENT / PLAN Ms. Zamzam Garibay is a 80 y.o. female with medical comorbidities notable for end-stage renal diseaseon thrice weekly in-center hemodialysis (MWF), CHF, hypertension, depression/anxiety, and nicotine dependency, who was admitted to hospital directly from the emergency department in [place] after presenting there April 17, 2021 with dyspnea. The differential diagnosis for her acute dyspnea includes pulmonary edema from dietary indiscretion in the setting of end-stage renal disease, acute congestive heart failure, ACS, pulmonary embolism, COPD/asthma exacerbation. There was concern for bacterial pneumonia in [place], but I think this isless likely given lack of leukocytosis ([place] labs), ongoing cough, fevers, chills, or focal findings on lung auscultation. #1 Dyspnea #2 Acute On Chronic Systolic (Congestive) Heart Failure (HCC) #3 Hypertension And End Stage Renal Disease (HCC) #4 Anemia In Chronic Kidney Disease ?? [facility] interpretation of outside CXR. ?? CT angiogram of the chest to evaluate for PE. This will also assess for pneumonia. ?? Trend troponins. ?? Formal TTE. ?? Consider Cardiology consultation as soon as tomorrow once evaluations above are available. ?? Hold antibiotics for now. Monitor for signs/symptoms of infection that would prompt continuation of antibiotics. ?? Nephrology to perform dialysis today; appreciate their assistance. ?? Continue home hydralazine and calcitriol. #5 Nicotine Dependence Other Tobacco Product #6 Depression Anxiety ?? Continue home escitalopram. #7 Frailty Age Related Physical Debility ?? PMR evaluation. Diet: Adult Diet Regular; 2000 mL Fluid; Renal (Dialysis) Tubes/lines: Peripheral IV, tunneled hemodialysis catheter. VTE prophylaxis: Unfractionated heparin 5000 units subcutaneous b.i.d., dosed for weight. Code status: Full Code, discussed on admission. Baseline Mobility: Ambulates independently, uses a walker at times. PMR assessment pending. Disposition: Anticipate eventual discharge to home with family support and outpatient hemodialysis. Counseling was provided [id number] at bedside regarding the plan of care as stated above. I personally spent over half of a total 70 minutes in counseling and coordination of care as documented above. documented in this encounter Consult Notes David Lin M.D., Ph.D. 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 HISTORY OF PRESENT ILLNESS I have performed a history and physical examination and agree with the documentation, including management plan by Oscar Henry, Medical Student, from 04/19/2021. Ms. Garibay is a pleasant 80 y.o.-year-old female who is referred by Chantelle Mak APRN, C.N.Elyssa, D.N.P., from [facility] for the chief complained referenced above. Transfer from [place] ED on 04/17/21 for a 1 day history of worsening dyspnea and orthopnea. Lasthemodialysis on Saturday (04/14), dietary indiscretion on Saturday (04/16) , with symptoms following shortly thereafter. She has not taken her prescribed medications for several months. Background history is notable for end-stage renal disease on hemodialysis, CHF, hypertension, depression/anxiety, and nicotine dependence. The following portions of the Ms. Garibay 's history were reviewed and updated as appropriate: past medical and surgical history, social and family histories, review of systems, medications and allergies. I also reviewed the pertinent clinical notes in the electronic health record. REVIEW OF SYSTEMS Pertinent items are noted in HPI; all other review of systems was negative. MEDICATIONS Current Medications: ??? acetaminophen tablet 1,000 mg (TYLENOL), Q8H PRN ??? calcitRIOL capsule 0.25 mcg (ROCALTROL), Daily ??? calcium acetate(phosphat bind) capsule 667 mg (PHOSLO), TID with meals ??? escitalopram tablet 5 mg (LEXAPRO), Daily ??? furosemide tablet 80 mg (LASIX), BID ??? heparin (porcine) injection 5,000 Units, BID ??? ipratropium-albuteroL 0.5-2.5 mg/3 mL nebulizer solution 3 mL (DUONEB), Q6H PRN ??? [START ON 04/20/2021] lisinopriL tablet 2.5 mg (PRINIVIL,ZESTRIL), Daily ??? metoprolol succinate 24 hr tablet 12.5 mg (TOPROL-XL), Daily ??? ondansetron (PF) injection 4 mg (ZOFRAN), Q6H PRN ??? polyethylene glycol powder packet 17 g (MIRALAX), Daily PRN ??? sennosides-docusate sodium 8.6-50 mg per tablet 1 tablet (SENOKOT-S), BID OBJECTIVE VITALS Temperature: 36.4 ??C Resp Rate: 17 Blood Pressure: 112/73 SpO2: 100 % Weight: 40.9 kg BMI (Calculated): 16 kg/m?? Estimated body mass index is 15.98 kg/m?? as calculated from the following: Height as of this encounter: 160 cm. Weight as of this encounter: 40.9 kg. PHYSICAL EXAMINATION (limited by ongoing hemodialysis) GENERAL: Slim body habitus. Well groomed. VESSELS: No carotid bruits. Normal pedal pulses. HEART: Normal cardiac palpation. Normal first and second heart sounds. Grade 2/6 holosystolic regurgitant murmur best heard at the apex. Jugular venous pressure approximately 10 cm H20 his. LUNGS: Normal respiratory effort and air movement. Clear to auscultation ABDOMEN: No abdominal masses or tenderness. EXTREMITIES: No clubbing or cyanosis. Plus one pitting pretibial and ankle edema bilaterally. DIAGNOSTICS I have reviewed Ms. Garibay 's current laboratory, imaging, and other diagnostic studies. LABORATORY TESTING Recent Results (from the past 72 hour(s)) Thyroid Function [place] Collection Time: 04/17/21 2:47 PM Result Value TSH, Sensitive, S 1.6 Hemoglobin A1c Collection Time: 04/17/21 2:48 PM Result Value Hemoglobin A1c, B 5.7 (H) Procalcitonin Collection Time: 04/17/21 2:48 PM Result Value Procalcitonin, S 0.32 (H) Troponin T, Baseline, 5th gen Collection Time: 04/17/21 2:48 PM Result Value Troponin T, Baseline, 5th gen 149 (H) D-Dimer Collection Time: 04/17/21 2:48 PM Result Value D-Dimer, P 1741 (H) Renal Function Panel Collection Time: 04/17/21 2:48 PM Result Value Potassium, S 4.7 Sodium, S 141 Chloride, S 99 Bicarbonate, S 24 Anion Gap 18 (H) BUN (Blood Urea Nitrogen), S 96 (H) Creatinine, S 4.27 (H) eGFR-Non Black/ <15 (L) eGFR-Black/ <15 (L) Calcium, Total, S 8.9 Glucose, S 83 Albumin, S 3.8 Phosphorus (Inorganic), S 6.7 (H) Hepatic Function Panel Collection Time: 04/17/21 2:48 PM Result Value Bilirubin, Total, S 0.7 Bilirubin, Direct, S 0.2 Aspartate Aminotransferase (AST), S 42 Alanine Aminotransferase (ALT), S 31 Alkaline Phosphatase, S 114 (H) Albumin, S 3.8 Protein, Total, S 6.9 Troponin T, 2H/6H, 5th Gen Collection Time: 04/17/21 5:13 PM Result Value Troponin T, 2 hr, 5th gen 151 (H) 2H Delta 2 2H Delta Interp Not Changing Troponin T, 6 hr, 5th gen CANCELED NT-Pro B-Type Natriuretic Peptide (BNP) Collection Time: 04/17/21 5:13 PM Result Value NT-Pro BNP, S >14932 (H) CBC with Differential, Blood Collection Time: 04/17/21 5:13 PM Result Value Hemoglobin 9.1 (L) Hematocrit 27.6 (L) Erythrocytes 3.30 (L) MCV 83.6 RBC Distrib Width 19.8 (H) Platelet Count 335 Leukocytes 7.0 Neutrophils 5.44 Lymphocytes 1.05 Monocytes 0.45 Eosinophils 0.03 Basophils 0.06 CBC with Differential, Blood Collection Time: 04/19/21 7:37 AM Result Value Hemoglobin 9.3 (L) Hematocrit 27.9 (L) Erythrocytes 3.31 (L) MCV 84.3 RBC Distrib Width 19.7 (H) Platelet Count 337 Leukocytes 5.0 Neutrophils 3.38 Lymphocytes 1.00 Monocytes 0.48 Eosinophils 0.09 Basophils 0.06 Basic Metabolic Panel Collection Time: 04/19/21 7:37 AM Result Value Potassium, S 4.4 Sodium, S 138 Chloride, S 95 (L) Bicarbonate, S 25 Anion Gap 18 (H) BUN (Blood Urea Nitrogen), S 62 (H) Creatinine, S 3.94 (H) eGFR-Non Black/ <15 (L) eGFR-Black/ <15 (L) Calcium, Total, S 8.4 (L) Glucose, S 204 (H) Magnesium Collection Time: 04/19/21 7:37 AM Result Value Magnesium, S 2.1 Phosphorus Inorganic Collection Time: 04/19/21 7:37 AM Result Value Phosphorus (Inorganic), S 5.8 (H) ELECTROCARDIOGRAM ECG 12 Lead Result Date: 04/17/2021 Sinus tachycardia Left atrial enlargement Left axis deviation Right bundle branch block with secondary ST-T abnormalities Left ventricular hypertrophy No previous ECGs available Reviewed by GIACOMO [facility] Echo Transthoracic (TTE) Result Date: 04/18/2021 Impression: No previous studies available for comparison. LEFT VENTRICLE: Severely enlarged left ventricular chamber size. Increased concentric left ventricular wall thickness. Calculated 2-D linear left ventricular ejection fraction 21 %. Calculated 2-D biplane volumetric left ventricular ejection fra ction 25 %. Severe generalized left ventricular hypokinesis with regional variability. Indeterminateleft ventricular diastolic function. Global averaged left ventricular longitudinal peak systolic strain is abnormal at -8 % (normal = more negative than -18%). Prominent left ventricular trabeculation.RIGHT VENTRICLE: Mild-moderately enlarged right ventricular chamber size most predominately at the base. Moderate-severely reduced right ventricular systolic function. Averaged right ventricular free wall longitudinal peak systolic strain is -16 % (normal = more negative than -24%). Estimated right ventricular systolic pressure 49 mmHg (right atrial pressure of 15 mmHg). Prominent right ventricular trabeculation. ATRIA: Severely enlarged left atrial size. Left atrial volume index 72 ml/m^2. Severelyenlarged right atrial size. CARDIAC VALVES: Trileaflet aortic valve. Thickened aortic valve. Thickened aortic root terrazas. Calcified aortic annulus. Trivial aortic valve regurgitation. Thickened mitral valve. Moderately calcified mitral annulus. Mitral valve diastolic mean Doppler gradient 4 mmHg (heart rate 94 BPM). Moderate mitral valve regurgitation. Thickened pulmonary valve. Normal pulmonary valve systolic velocities. Mild-moderate pulmonary valve regurgitation. Thickened tricuspid valve. Moderate tricuspid valve regurgitation. OTHER ECHO FINDINGS: Enlarged inferior vena cava size with reduced inspiratory collapse (<50%). Normal mid ascending aorta diameter (diameter 30 mm at mid level). Abdominal aorta incompletely visualized. Normal abdominal aorta Doppler flow pattern. Redundant atrial septal flap. No atrial level shunt by color flow imaging. No intracardiac mass or thrombus, but the left atrial appendage cannot be visualized adequately with transthoracic echo to exclude thrombus in this location. Infusion catheter visualized in the RA. Tiny anterior pericardial effusion. For the complete report, see the Order-Level Documents. Interpretation of Outside DX Chest Result Date: 04/17/2021 Impression: Interpretation of outside radiograph of the chest (1 sitting portable AP view) dated 04/17/2021 from [facility]. Enlarged cardiac silhouette with prominence of the pulmonary vascularity. Mild interstitial prominence, likely edema. Patchy opacities in the right base may represent ed felisha, atelectasis, or infiltrate. Aortic calcification. Right IJ catheter with tip projected near theSVC/RA junction. Degenerative changes visualized spine, both shoulders and AC joints. CT Chest Angiogram and Pulmonary Arteries with IV Contrast Result Date: 04/18/2021 Impression: 1. Examination is negative for pulmonary embolus. 2. Small right pleural effusion. ASSESSMENT / PLAN ASSESSMENT #1 Dyspnea #2 Hypertension And End Stage Renal Disease (HCC) #3 Nicotine Dependence Other Tobacco Product #4 Frailty Age Related Physical Debility #5 Anemia In Chronic Kidney Disease #6 Acute On Chronic Systolic (Congestive) Heart Failure (HCC) #7 Depression Anxiety PLAN I discussed Ms. Garibay's evaluation and management in detail with Oscar Henry, Medical Student, and agree with the plan documented in Oscar Henry, Medical Student,'s note from 04/19/2021 with the exceptions noted below. I also discussed this plan in person and in detail with Ms. Garibay . It is not clear whether her left ventricular dysfunction is old or new. We do not have a prior echocardiogram for comparison. The appropriate 1st order of business is to get her euvolemic as much as possible by hemodialysis, and to resume her medications to include afterload reduction with lisinopril (for now beginning at 5 mg by mouth per day) followed by metoprolol succinate (beginning at 12.5 mg by mouth per day) once lisinopril is safely tolerated. Would hold off on hydralazine once lisinopril is started. With respect to diuresis, we will defer to the Nephrology Service. We cannot dismiss the possibility of coronary artery disease underlying her left ventricular dysfunction, but she does not have a chest pain syndrome, and her troponin is stable. As such, we have time to optimize her volume status before further evaluation, probably as an outpatient. The end of our visit today, Ms. Garibay had ample time to ask questions. All questions were answered to the best of my abilities. At the end of our visit today, Ms. Garibay voiced understanding of, and satisfaction with, her plan of care. David Lin M.D., Ph.D. 04/19/2021 1:06 PM CDT Elaine Oscar Yovani - 04/19/2021 10:23 AM CDT Referring provider: Gilbert Dorsey M.D. Reason for consultation: Severely enlarged left ventricular size with biplane ejection fraction of 25%; severe generalized left ventricular hypokinesis. ??Please evaluate. SUBJECTIVE HISTORY OF PRESENT ILLNESS Ms. 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 Ms. Garibay reports receiving her last hemodialysis on Saturday (04/14) before eating particularly salty food on Saturday (04/16) prior to the start of her symptoms. She also reports that she has not been adhering to her medication regimen including the lasix 80 mg for several months because she didn't think they were helping anything. Upon initial work up Ms. Garibay was noted to non trending troponins (149, 151), BMP > 60,000, D- dimer: 1741, Hb.1, creatinine 4.27, and BUN 96. She underwent dialysis on the day of her admission (04/17) which offloaded 3.2 L and completely resolved her symptoms of dyspnea. A CT chest angiogram on 04/18 was negative for pulmonary embolism, but showed a small right pleural effusion. Echo Transthoracic showed new findings of severly enlarged left ventricular size with biplane ejection fraction of 25%, severe generalized left ventricular hypokinesis, moderate mitral regurgitation, and moderate tricuspid regurgi tation. Cardiology was consulted regarding these new TTE findings. Currently, Ms. Garibay denies dyspnea or chest discomfort at rest or with exertion, peripheral edema,palpitations, or recent syncope. Ms. Garibay has no known personal history of cardiovascular disease or events. Specifically, no priormyocardial infarction, stroke, congestive heart failure, peripheral vascular disease, valvular disease, or electrophysiologic abnormalities. Ms. Garibay has not previously undergone invasive diagnostic or therapeutic cardiovascular procedures. Cardiovascular risk factors include systolic blood pressure, need for antihypertensive therapy and current tobacco use. REVIEW OF SYSTEMS Cardiovascular: negative for chest pain, chest pressure/discomfort, dyspnea, irregular heart beat, lower extremity edema, near-syncope, orthopnea, palpitations, tachypnea and TIA MEDICATIONS Current Medications: ??? acetaminophen tablet 1,000 mg (TYLENOL), Q8H PRN ??? calcitRIOL capsule 0.25 mcg (ROCALTROL), Daily ??? calcium acetate(phosphat bind) capsule 667 mg (PHOSLO), TID with meals ??? escitalopram tablet 5 mg (LEXAPRO), Daily ??? furosemide tablet 80 mg (LASIX), BID ??? heparin (porcine) injection 5,000 Units, BID ??? hydrALAZINE tablet 25 mg (APRESOLINE), BID ??? ipratropium-albuteroL 0.5-2.5 mg/3 mL nebulizer solution 3 mL (DUONEB), Q6H PRN ??? NaCl 0.9 % bolus 100 mL, PRN ??? ondansetron (PF) injection 4 mg (ZOFRAN), Q6H PRN ??? polyethylene glycol powder packet 17 g (MIRALAX), Daily PRN ??? sennosides-docusate sodium 8.6-50 mg per tablet 1 tablet (SENOKOT-S), BID ??? sodium chloride 0.9 % flush 1-100 mL, PRN ??? sodium chloride 0.9 % flush 1-250 mL, PRN OBJECTIVE VITALS Temperature: 36.9 ??C Resp Rate: 16 Blood Pressure: 114/73 SpO2: 98 % Height: 160 cm Weight: 43 kg BMI (Calculated): 16.8 kg/m?? Estimated body mass index is 16.8 kg/m?? as calculated from the following: Height as of this encounter: 160 cm. Weight as of this encounter: 43 kg. PHYSICAL EXAMINATION GENERAL: Low body habitus and BMI 16.8. Well groomed. PSYCH: Normal mood and affect. Oriented to person, place, and time. EYES: No xanthelasma or conjunctivitis. DIAGNOSTICS I have reviewed the patient's current laboratory, imaging, and other diagnostic studies. LABORATORY TESTING Lab Results Component Value Date WBC 5.0 04/19/2021 HGB 9.3 (L) 04/19/2021 HCT 27.9 (L) 04/19/2021 MCV 84.3 04/19/2021 PLT 337 04/19/2021 Lab Results Component Value Date NA 138 04/19/2021 Lab Results Component Value Date CREATININE 3.94 (H) 04/19/2021 Lab Results Component Value Date HGBA1C 5.7 (H) 04/17/2021 TSH 1.6 04/17/2021 ELECTROCARDIOGRAM ECG 12 Lead Result Date: 04/17/2021 Sinus tachycardia Left atrial enlargement Left axis deviation Right bundle branch block with secondary ST-T abnormalities Left ventricular hypertrophy No previous ECGs available Reviewed by GIACOMO Madsen Echo Transthoracic (TTE) Result Date: 04/18/2021 Impression: No previous studies available for comparison. LEFT VENTRICLE: Severely enlarged left ventricular chamber size. Increased concentric left ventricular wall thickness. Calculated 2-D linear left ventricular ejection fraction 21 %. Calculated 2-D biplane volumetric left ventricular ejection fra ction 25 %. Severe generalized left ventricular hypokinesis with regional variability. Indeterminateleft ventricular diastolic function. Global averaged left ventricular longitudinal peak systolic strain is abnormal at -8 % (normal = more negative than -18%). Prominent left ventricular trabeculation.RIGHT VENTRICLE: Mild-moderately enlarged right ventricular chamber size most predominately at the base. Moderate-severely reduced right ventricular systolic function. Averaged right ventricular free wall longitudinal peak systolic strain is -16 % (normal = more negative than -24%). Estimated right ventricular systolic pressure 49 mmHg (right atrial pressure of 15 mmHg). Prominent right ventricular trabeculation. ATRIA: Severely enlarged left atrial size. Left atrial volume index 72 ml/m^2. Severelyenlarged right atrial size. CARDIAC VALVES: Trileaflet aortic valve. Thickened aortic valve. Thickened aortic root terrazas. Calcified aortic annulus. Trivial aortic valve regurgitation. Thickened mitral valve. Moderately calcified mitral annulus. Mitral valve diastolic mean Doppler gradient 4 mmHg (heart rate 94 BPM). Moderate mitral valve regurgitation. Thickened pulmonary valve. Normal pulmonary valve systolic velocities. Mild-moderate pulmonary valve regurgitation. Thickened tricuspid valve. Moderate tricuspid valve regurgitation. OTHER ECHO FINDINGS: Enlarged inferior vena cava size with reduced inspiratory collapse (<50%). Normal mid ascending aorta diameter (diameter 30 mm at mid level). Abdominal aorta incompletely visualized. Normal abdominal aorta Doppler flow pattern. Redundant atrial septal flap. No atrial level shunt by color flow imaging. No intracardiac mass or thrombus, but the left atrial appendage cannot be visualized adequately with transthoracic echo to exclude thrombus in this location. Infusion catheter visualized in the RA. Tiny anterior pericardial effusion. For the complete report, see the Order-Level Documents. Interpretation of Outside DX Chest Result Date: 04/17/2021 Impression: Interpretation of outside radiograph of the chest (1 sitting portable AP view) dated 04/17/2021 from [facility]. Enlarged cardiac silhouette with prominence of the pulmonary vascularity. Mild interstitial prominence, likely edema. Patchy opacities in the right base may represent ed felisha, atelectasis, or infiltrate. Aortic calcification. Right IJ catheter with tip projected near theSVC/RA junction. Degenerative changes visualized spine, both shoulders and AC joints. CT Chest Angiogram and Pulmonary Arteries with IV Contrast Result Date: 04/18/2021 Impression: 1. Examination is negative for pulmonary embolus. 2. Small right pleural effusion. 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 Ms. Garibay was seen during dialysis today and is tolerating dialysis well. She does not report any new symptoms concerning for an acute cardiac event. She reports complete resolution of her dyspnea andorthopnea after initial dialysis treatment on 04/17. I spoke with WILTON Griffith on Ms. Garibay's Nephrology team regarding cardiac medication recommendations given her end stage renal disease. Given the new ANDRÉS findings and EF of 25% we would advise the recommendations below. ?? Recommendations: -- Metoprolol Succinate 25 mg/day extended release (give mid-day/evening, but never before dialysis) -- Lisinopril 5 mg/day (monitor potassium levels on daily labs) -- Schedule repeat Transthoracic Echo in 3 months -- Continue Hydralazine 25 mg -- Continue Hemodialysis per Nephrology recommendations -- Encourage smoking cessation & appropriate dietary changes At the end of our visit today, Ms. Garibay had ample time to ask questions. She had no questions at that time and seem satisfied with her plan of care. Mo Henry 04/19/2021 10:25 AM CDT Alesha Villagomez APRN, C.N.P., D.N.P. - 04/17/2021 2:46 PM CDTAssociated Order(s): IP CONSULT TO NEPHROLOGY SUBJECTIVE Nephrology consult (hospital) Referring Provider: Jonah Kamara M.D. Reason for Consult: ESRD on IHD, presented to ED with dyspnea CHIEF COMPLAINT Management of hemodialysis while hospitalized for Dyspnea [R06.00]. HISTORY OF PRESENT ILLNESS Ms. Garibay is a 80 y.o. female who has a history of end stage renal disease related to hypertension,and has required dialysis since January 2021. She has been admitted after presenting to the emergencydepartment with symptoms of dyspnea. Ms. Garibay normally dialyzes on Saturday, Saturday and Saturday at [facility]. She normally dialyzes for 3.5 hours with a 137 sodium, 3 potassium, 2.5 calcium, and 35 bicarbonate dialysate at a temperature of 37 degrees Celsius. She estimated dry weight is 42.5 kg. Medications administered during dialysis include: Heparin IV 2000 units bolus with no maintenance. Ms. Garibay is seen in her room, she was in bed and primary hospital service was with her. She reports that her last dialysis went well on Saturday with fluid removal. She reports tolerating dialysis welland that her dialysis time was decreased to 3.5 hours on Saturday. She denies allergy to dialyzers. She denies chest pain, dizziness or lightheadedness. She endorses shortness of breath, currently on supplemental oxygen via NC. I have reviewed and updated the following: allergies and current medications REVIEW OF SYSTEMS OBJECTIVE Admission Weight: 45 kg Current Weight: 45 kg VITAL SIGNS No intake or output data in the 24 hours ending 04/17/21 1619 PHYSICAL EXAM General appearance: alert, cooperative and no distress Lungs: clear to auscultation bilaterally Heart: neither regular rate and rhythm nor tachy Extremities: No edema to bilateral lower extremity Vessels: Catheter - exit site clean and dry. DIAGNOSTICS Recent Results (from the past 24 hour(s)) Hemoglobin A1c Collection Time: 04/17/21 2:48 PM Result Value Hemoglobin A1c, B 5.7 (H) Procalcitonin Collection Time: 04/17/21 2:48 PM Result Value Procalcitonin, S 0.32 (H) Troponin T, Baseline, 5th gen Collection Time: 04/17/21 2:48 PM Result Value Troponin T, Baseline, 5th gen 149 (H) D-Dimer Collection Time: 04/17/21 2:48 PM Result Value D-Dimer, P 1741 (H) Renal Function Panel Collection Time: 04/17/21 2:48 PM Result Value Potassium, S 4.7 Sodium, S 141 Chloride, S 99 Bicarbonate, S 24 Anion Gap 18 (H) BUN (Blood Urea Nitrogen), S 96 (H) Creatinine, S 4.27 (H) eGFR-Non Black/ <15 (L) eGFR-Black/ <15 (L) Calcium, Total, S 8.9 Glucose, S 83 Albumin, S 3.8 Phosphorus (Inorganic), S 6.7 (H) Hepatic Function Panel Collection Time: 04/17/21 2:48 PM Result Value Bilirubin, Total, S 0.7 Bilirubin, Direct, S 0.2 Aspartate Aminotransferase (AST), S 42 Alanine Aminotransferase (ALT), S 31 Alkaline Phosphatase, S 114 (H) Albumin, S 3.8 Protein, Total, S 6.9 ASSESSMENT / PLAN #1 End stage renal disease related to hypertension, maintained on incenter hemodialysis since 03/2021 #2 Dyspnea [R06.00] #3 Chronic anemia related to end stage renal disease #4 Secondary hyperparathyroidism 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 AsMsKandis Garibay has not developed immunity to hepatitis B, per dialysis guidelines, she requires monthly hepatitis B surface antigen monitoring. Her most recent hepatitis B surface antigen was negative on . Hemodialysis today for 3.5 hours with a goal of removing 2-3 L as she tolerates. She will be dialyzing on a 2 potassium and 2.5 calcium dialysate. Recommendations: -Hemodialysis on Saturday, Saturday and Saturday -Dose medications for patients that require dialysis -Renal dialysis diet to include low phosphorus, low sodium, and low potassium -1.5 L per day fluid restriction & Strict I&Os -Dialyvite one tablet each evening -Daily weights, standing if possible -Continue outpatient hydralazine 25 mg twice daily and furosemide 80 mg. -Outpatient, she is taking calcium acetate 667 mg tid with meals as a phosphorus binder For questions or concerns, please page the Nephrology A [employer]TER/PA pager ([phone]). documented in this encounter Nursing Notes Alesha Felix R.N. - 04/20/2021 12:10 PM CDT [place] [facility] [place] follow-up appointments for dialysis and primary care provider follow-up scheduled for Saturday, 04/24, in [place]. AVS and all patient education reviewed at bedside, including but not limited to heart failure self-care, fluid restriction (2L), and sodium restriction (2 grams). Patient did not have any questions at this time. Contact information provided in AVS. Patient discharged with hemodialysis catheter still intact, fistula site assessed and within normal limits, and PIV removed. Vital signs prior to discharge: 04/20/21 1215 Vital Signs Temperature 36.8 ??C Temp Source Oral Pulse Rate 79 Pulse Rate Source Pulse oximetry Resp Rate 16 Blood Pressure 98/62 MAP (mmHg) 67 BP Location Left arm;Upper BP Method Automatic Patient Position Lying Orthostatic Vitals? No Siddiqi Agitation Sedation Scale (RASS) 0 SpO2 100 % Oxygen Therapy Pulse Oximetry Type Intermittent Patient Activity At rest $Delivery Method Room air Libra Shoemaker R.N. - 04/19/2021 10:08 PM CDT Problem: PAIN - ADULT Goal: PT VERBALIZES/DEMONSTRATES ADEQUATE COMFORT LEVEL OR BASELINE Outcome: Progressing Note: Patient denied pain Problem: SKIN/TISSUE INTEGRITY Goal: Skin/Tissue integrity maintained or improved Outcome: Progressing Note: Patient repositioned self frequently while in bed. Polylactic foam mepi in place on coccyx Problem: DISCHARGE PLANNING Goal: Patient discharge needs identified Outcome: Progressing Note: Patient to DC home tomorrow Shift Goals: Clinical Goals for the Shift: Pt will remain vitally stable Identify possible barriers to meeting goals/advancing plan of care: treatment, disease process End of Shift Summary: Goal met. It was reported that pt experienced hypotension while receiving dialysis this afternoon. Vitally stable and asymptomatic while on floor. Justin Stnoe R.N. - 04/19/2021 11:31 AM CDT Patient scheduled for 3.5hr dialysis run. About 3hr into run, RN noticed low blood pressure 72/35 and pt became nauseated. Minimum fluid pulling initiated and 200cc NS bolus given with little improved in blood pressures 80/47, 78/42, 88/65. Dialysis stopped 30 minutes early blood returned, BP 128/79. Neph SCREEN PR[employer]ING EQUIPMENT SETTER was notified. Patient returned to room. VSS. Darby Aguayo R.N. - 04/18/2021 6:43 PM CDT Problem: PAIN - ADULT Goal: PT VERBALIZES/DEMONSTRATES ADEQUATE COMFORT LEVEL OR BASELINE Outcome: Progressing Note: No c/o pain this shift. Problem: POTENTIAL OR ACTUAL PRESSURE INJURY-ADULT Goal: Nutrient intake appropriate for improving, restoring or maintaining skin integrity Outcome: Progressing Note: Pt ate 100% of lunch and 2 ensures. Shift Goals: Clinical Goals for the Shift: Pt's blood pressure will remain below 160 Identify possible barriers to meeting goals/advancing plan of care: cardio consult End of Shift Summary: Pt's VSS. No pain. TTE and CTa chest completed today. Electronically signed by: Darby Aguayo R.N. 04/18/21 6:44 PM CDT Cora Gtz R.N. - 04/17/2021 10:52 PM CDT Problem: PAIN - ADULT Goal: PT VERBALIZES/DEMONSTRATES ADEQUATE COMFORT LEVEL OR BASELINE Outcome: Progressing Note: Pt did not report any pain during shift. Gave medications per MAR. Problem: KNOWLEDGE DEFICIT Goal: Patient/family/caregiver demonstrates understanding of disease process, treatment plan, medications, and discharge instructions Outcome: Progressing Note: Plan is for a CT of her chest and a TTE for further determination. Shift Goals: Clinical Goals for the Shift: Pt's blood pressure will remain below 160 Identify possible barriers to meeting goals/advancing plan of care: Hypertension End of Shift Summary: Pt's systolic blood pressure ranged from 160 at 1615 to 155 at 2130. Pt did have a run of Dialysis today. Gave medications per MAR. Plan for a TTE and CT tomorrow. documented in this encounter Miscellaneous Notes Hospital Course - Chantelle Mak APRN, C.N.P., D.N.P. - 04/17/2021 4:23 PM CDT Ms. Zamzam Garibay is a 80 y.o. female with medical comorbidities notable for end-stage renal diseaseon thrice weekly in-center hemodialysis (MWF), CHF, hypertension, depression/anxiety, and nicotine dependency, who was admitted to hospital directly from the emergency department in [place] after presenting there April 17, 2021 with dyspnea. History is provided by the patient, but also by the patient's son, Rafita ([phone]) via telephone. The patient had recently been living in [place]. Rafita reports that she has a several year history of chronic kidney disease. She has chronic hypertension, but no known diabetes. Rafita is not otherwise aware of why the patient developed chronic kidney disease. Regardless, she was initiated on hemodialysis during a recent hospital stay in [place] at the end of January via a right-sided tunneled hemodialysis catheter. She has a right-arm fistula in place that is currently maturing. She was discharged to a nursing facility on March 08, 2021 in [place] but did not like it there. She would intermittently refuse hemodialysis sessions for no specific reason. Her son, rafita, came to visit and took the patient up to [place] on April 02, 2021 where he lives in [place]. Rafita and his take the patient to and from hemodialysis. Although she was weak and ???wobbly?? following her recent hospital stay, rafita notes that her functional status has gradually improved. Early this morning at around 6:00 a.m., the patient woke with a sensation as though she could not catch her breath. She had no associated chest pain but did have headache. No vision changes or palpitations. Symptoms were worse laying down and better when upright. She last underwent hemodialysis per her usual schedule on Saturday, April 14, 2021. She would have been due for her next dialysis session today. She ate fried chicken and drank soda over the weekend as part of a celebration with family. Due to ongoing dyspnea, she presented to the emergency department in [place]. Initially, she was hypoxic to 85% on room air and tachycardic with a heart rate of 110 beats per minute. Blood pressureswere elevated at 184/115 with respiratory rate 20. She was afebrile. Blood laboratory studies were notable for hemoglobin 9.6, WBC 8.1, lactate 1.2, BNP 175,000, creatinine 4, BUN 106, negative initial troponin, ECG revealing some ???possible ischemic changes, T-wave inversions is noted. COVID swab in [place] was negative. She was accepted for direct admission at [facility]. Upon arrival to general care floor, she remained hemodynamically stable and afebrile. She was dialyzed shortly after arrival with 3.2 L removed. Her dyspnea essentially resolved after dialysis. Due to her initial dyspnea and elevated D- dimer, she underwent TTE and CTA to rule out DVT. Her CTA was negative for DVT but did show she small right pleural effusion and presumptive cardiac dysfunction due to contrast delay and IVC and hepatic veins. TTE showed severely enlarged left ventricle with EF of 25%; severely generalized left ventricular hypokinesis with regional variability; increased concentric left ventricular wall thickness, moderate mitral valve regurg and [id number] enlarged right ventricular size with moderately severe reduced systolic function. She was also noted tohave moderate tricuspid valve regurg as well. Cardiology was consulted to help with management. Current recommendations are to optimize medical management with beta blockade and HONG-inhibitor. Repeat TTE in 3 months. She was started on 12.5 mg of metoprolol succinate and 2.5 of lisinopril, prior to discharge and tolerated this well. Her home hydralazine was discontinued. She will follow-up with the PCP on 04/25/21 as well as outpatient follow-up with Cardiology. Upon discharge, patient remained hemodynamically stable, tolerating both food and drink, ambulating without any issues. documented in this encounter Plan of Treatment Not on filedocumented as of this encounter Procedures Procedure Name Priority Date/Time Associated Comments Diagnosis PHOSPHORUS Timed 04/20/2021 8:25 Results for (INORGANIC), S AM CDT this procedur e are in the results section. ADULT OXYGEN THERAPY Routine 04/19/2021 8:01 AM CDT CBC WITH Routine 04/19/2021 7:37 Results for DIFFERENTIAL, B AM CDT this procedu re are in the results section. PHOSPHORUS Routine 04/19/2021 7:37 Results for (INORGANIC), S AM CDT this procedur e are in the results section. MAGNESIUM, S Routine 04/19/2021 7:37 Results for AM CDT this procedure are in the results section. BASIC METABOLIC Routine 04/19/2021 7:37 Results f or PANEL, S/P AM CDT this procedure are in the results section. ADULT OXYGEN THERAPY Routine 04/18/2021 8:01 PM CDT HEMODIALYSIS Routine 04/18/2021 2:21 PM CDT (TTE) 2D ECHO DOPPLER Routine 04/18/2021 12:26 Re sults for COLOR PM CDT this procedure are in the results section. ADULT OXYGEN THERAPY Routine 04/18/2021 8:[address] CHEST ANGIOGRAM RAD - Semiurgent 04/18/2021 7:11 Re sults for AND PULMONARY (Fast; most ED AM CDT this procedu re ARTERIES WITH IV patients; some are in th e CONTRAST inpatients) results section. ADULT OXYGEN THERAPY Routine 04/17/2021 8:01 PM CDT TROPONIN T, 2H/6H, Timed 04/17/2021 5:13 Result s for 5TH GEN, P PM CDT this procedure are in the results section. NT-PRO B-TYPE Timed 04/17/2021 5:13 Results for NATRIURETIC PEPTIDE PM CDT this pro cedure (BNP), S are in the results section. CBC WITH Timed 04/17/2021 5:13 Results for DIFFERENTIAL, B PM CDT this procedu re are in the results section. HEMODIALYSIS Routine 04/17/2021 3:24 PM CDT INTERPRETATION OF RAD - Routine 04/17/2021 2:50 Result s for OUTSIDE DX CHEST (most inpatients PM CDT this pr ocedure and all are in the outpatients) results section. TROPONIN T, BASELINE, STAT 04/17/2021 2:48 Res ults for 5TH GEN, P PM CDT this procedure are in the results section. RENAL FUNCTION PANEL, STAT 04/17/2021 2:48 Res ults for S PM CDT this procedure are in the results section. HEPATIC FUNCTION STAT 04/17/2021 2:48 Results for PANEL, S PM CDT this procedure are in the results section. PROCALCITONIN, S STAT 04/17/2021 2:48 Results for PM CDT this procedure are in the results section. D-DIMER, P STAT 04/17/2021 2:48 Results for PM CDT this procedure are in the results section. HEMOGLOBIN A1C, B STAT 04/17/2021 2:48 Results for PM CDT this procedure are in the results section. THYROID FUNCTION Routine 04/17/2021 2:47 Results for CASCADE, S PM CDT this procedure are in the results section. ECG STAT 04/17/2021 2:36 Results for PM CDT this procedure are in the results section. ADULT OXYGEN THERAPY Routine 04/17/2021 2:27 PM CDT ADULT OXYGEN THERAPY Routine 04/17/2021 2:27 PM CDT ADULT OXYGEN THERAPY Routine 04/17/2021 2:27 PM CDT documented in this encounter Results (ABNORMAL) Phosphorus Inorganic (04/20/2021 8:25 AM CDT) athologist Signature Phosphorus 5.5 (H) 2.5 - 4.5 04/20/2021 DTL (Inorganic), S mg/dL 9:24 AM CDT Specimen Anatomical Collection Method Collection Time Receive d Time (Source) Location / / Volume Laterality Blood (Blood, 04/20/2021 8:25 AM 04/20/20 9:09 Venous) CDT AM CDT Chantelle Mak APRN, Samantha.N.P., D.N.P. LAB BLOOD ADD-ON Performing Organization Address City/[facility] Phon e Number [facility] [address] (ABNORMAL) Phosphorus Inorganic (04/19/2021 7:37 AM CDT) athologist Signature Phosphorus 5.8 (H) 2.5 - 4.5 04/19/2021 DTL (Inorganic), S mg/dL 9:08 AM CDT Specimen Anatomical Collection Method Collection Time Receive d Time (Source) Location / / Volume Laterality Blood (Blood, 04/19/2021 7:37 AM 04/19/20 8:36 Venous) CDT AM CDT Chantelle Mak APRN, C.N.P., D.N.P. LAB BLOOD ADD-ON Performing Organization Address City/[facility] Phon e Number [facility] [address] Magnesium (04/19/2021 7:37 AM CDT) athologist Signature Magnesium, S 2.1 1.7 - 2.3 04/19/2021 DTL mg/dL 9:08 AM CDT Specimen Anatomical Collection Method Collection Time Receive d Time (Source) Location / / Volume Laterality Blood (Blood, 04/19/2021 7:37 AM 04/19/20 8:36 Venous) CDT AM CDT Chantelle Mak APRN, C.N.P., D.N.P. LAB BLOOD ADD-ON Performing Organization Address City/State/ZIP Code Phon e Number [facility] - [address] [place], [place] [address] [facility] [place] [address] [facility] 200 [facility] (ABNORMAL) Basic Metabolic Panel (04/19/2021 7:37 AM CDT) Analysis Performed At Patho logist Time Signature Potassium, S 4.4 3.6 - 5.2 04/19/2021 DTL mmol/L 9:08 AM CDT Sodium, S 138 135 - 145 04/19/2021 DTL mmol/L 9:08 AM CDT Chloride, S 95 (L) 98 - 107 04/19/2021 DTL mmol/L 9:08 AM CDT Bicarbonate, S 25 22 - 29 04/19/2021 DTL mmol/L 9:08 AM CDT Anion Gap 18 (H) 7 - 15 04/19/2021 DTL 9:08 AM CDT BUN (Blood Urea 62 (H) 6 - 21 04/19/2021 DTL Nitrogen), S mg/dL 9:08 AM CDT Creatinine 3.94 (H) 0.59 - 04/19/2021 DTL 1.04 mg/dL 9:08 AM CDT eGFR-Non <15 (L) >=60 04/19/2021 DTL Black/ mL/min/BSA 9:08 AM CDT Vincentian Comment: ----ADDITIONAL INFORMATION---- Estimated GFR calculated using the 2009 CKD_EPI creatinine equation. eGFR-Black/ <15 (L) >=60 mL/min/BSA 2020 9:08 AM CDT DTL Comment: ----ADDITIONAL INFORMATION---- Estimated GFR calculated using the 2009 CKD_EPI creatinine equation. Calcium, Total, S 8.4 (L) 8.8 - 10.2 mg/dL 04/19/2021 9:08 AM CDT DTL Glucose, S 204 (H) 70 - 140 mg/dL 04/19/2021 9:08 AM CDT D TL Specimen Anatomical Collection Method Collection Time Receive d Time (Source) Location / / Volume Laterality Blood (Blood, 04/19/2021 7:37 AM 04/19/20 8:36 Venous) CDT AM CDT Chantelle Mak APRN, C.N.P., D.N.P. LAB BLOOD ADD-ON Performing Organization Address City/State/ZIP Code Phon e Number [facility] - [address] [place], [place] [address] [facility] [place] [address] [facility] 200 [facility] (ABNORMAL) CBC with Differential, Blood (04/19/2021 7:37 AM CDT) [facility] Method Time Signature Hemoglobin 9.3 (L) 11.6 - 04/19/2021 DTL 15.0 g/dL 8:56 AM CDT Hematocrit 27.9 (L) 35.5 - 04/19/2021 DTL 44.9 % 8:56 AM CDT Erythrocytes 3.31 (L) 3.92 - 04/19/2021 DTL 5.13 8:56 AM CDT x10(12)/L MCV 84.3 78.2 - 04/19/2021 DTL 97.9 fL 8:56 AM CDT RBC Distrib Width 19.7 (H) 12.2 - 04/19/2021 DTL 16.1 % 8:56 AM CDT Platelet Count 337 157 - 371 04/19/2021 DTL x10(9)/L 8:56 AM CDT Leukocytes 5.0 3.4 - 9.6 04/19/2021 DTL x10(9)/L 8:56 AM CDT Neutrophils 3.38 1.56 - 04/19/2021 DTL 6.45 8:56 AM CDT x10(9)/L Lymphocytes 1.00 0.95 - 04/19/2021 DTL 3.07 8:56 AM CDT x10(9)/L Monocytes 0.48 0.26 - 04/19/2021 DTL 0.81 8:56 AM CDT x10(9)/L Eosinophils 0.09 0.03 - 04/19/2021 DTL 0.48 8:56 AM CDT x10(9)/L Basophils 0.06 0.01 - 04/19/2021 DTL 0.08 8:56 AM CDT x10(9)/L Specimen Anatomical Collection Method Collection Time Receive d Time (Source) Location / / Volume Laterality Blood (Blood, 04/19/2021 7:37 AM 04/19/20 8:15 Venous) CDT AM CDT Chantelle Mak APRN, C.N.P., D.N.P. LAB BLOOD ADD-ON Performing Organization Address City/State/ZIP Code Phon e Number [facility] - [address] [place] [phone] [facility] [place] [address] [facility] 200 [facility] (TTE) 2D ECHO DOPPLER COLOR (04/18/2021 12:26 PM CDT) [facility] Method Time Signature Ejection Fraction 25 MC CV EIMS Sinus of Valsalva 35 MC CV EIMS Sinotubular Junction 20 MC CV EIM S Mid-Ascending Aorta 30 MC CV EIMS LV Mass Index 212 MC CV EIMS LV End-Diastolic 54 MC CV EIMS Diameter LV End-Systolic 48 MC CV EIMS Diameter LV End-Diastolic 288 MC CV EIMS Volume LV End-Systolic 215 MC CV EIMS Volume MV E Velocity 0.9 MC CV EIMS MV A Velocity 1.0 MC CV EIMS MV E/A 0.90 MC CV EIMS MV e' Velocity 0.04 MC CV EIMS Lateral MV E/e' Lateral 22.5 MC CV EIMS Left ventricular 37 MC CV EIMS stroke volume index Cardiac Output 5.23 MC CV EIMS Cardiac Index 3.77 MC CV EIMS LV Global -8 MC CV EIMS Longitudinal Strain LV Interventricular 13 MC CV EIMS Septal Wall Thickness LV Posterior Wall 13 MC CV EIMS Thickness LV Relative Wall 48 MC CV EIMS Thickness RV 4-Chamber Basal 56 MC CV EIMS Diameter RV 4-Chamber Mid 42 MC CV EIMS Diameter RV 4-Chamber Length 79 MC CV EIMS RV Free Wall Strain -16 MC CV EIMS TR Vmax 2.91 MC CV EIMS RA Pressure 15 MC CV EIMS RV Systolic Pressure 49 MC CV EIM S Estimated diastolic 33 MC CV EIMS pulmonary artery pressure AV mean gradient 5 MC CV EIMS Aortic valve area 2.42 MC CV EIMS Aortic Valve 0.64 MC CV EIMS Dimensionless Index MV mean gradient 4 MC CV EIMS LA Volume Index 72 MC CV EIMS Anatomical Region Laterality Modality Echocardiography Specimen (Source) Anatomical Collection Method Collection Time Re ceived Time Location / / Volume Laterality 04/18/2021 10:00 AM CDT Impressions 04/18/2021 1:34 PM CDT No previous studies available for comparison. ??LEFT VENTRICLE: ??Severely enlarged left ventricular chamber size. ??Increased co ncentric left ventricular wall thickness. ??Calculated 2-D linear left ventricular ejection fra ction 21 %. ??Calculated 2-D biplane volumetric left ventricular ejection fraction 25 %. ??Se iesha generalized left ventricular hypokinesis with regional variability. ??Indeterminate le ft ventricular diastolic function. ??Global averaged left ventricular longitudinal peak systolic s train is abnormal at -8 % (normal = more negative than -18%). ??Prominent left ventricular trab eculation. ??RIGHT VENTRICLE: ??Mild- moderately enlarged right ventricular chamber size most pred ominately at the base. ??Moderate- severely reduced right ventricular systolic function. ??Average d right ventricular free wall longitudinal peak systolic strain is -16 % (normal = more negative than -24%). ??Estimated right ventricular systolic pressure 49 mmHg (right atrial pressure of 15 mmHg). ??Prominent right ventricular trabeculation. ??ATRIA: ??Severely enlar ged left atrial size. ??Left atrial volume index 72 ml/m^2. ??Severely enlarged right atrial size. ??CARDIAC VALVES: ??Trileaflet aortic valve. Thickened aortic valve. ??Thickened aort ic root terrazas. ??Calcified aortic annulus. ??Trivial aortic valve regurgitation. ??Thickened mitral valve. ??Moderately calcified mitral annulus. Mitral valve diastolic mean Doppler grad ient 4 mmHg (heart rate 94 BPM). ??Moderate mitral valve regurgitation. ??Thickened pulmonary celia ve. ??Normal pulmonary valve systolic velocities. Mild-moderate pulmonary valve regurgitat ion. ??Thickened tricuspid valve. ??Moderate tricuspid valve regurgitation. ??OTHER ECHO FINDIN GS: ??Enlarged inferior vena cava size with reduced inspiratory collapse (<50%). ??Normal mi d ascending aorta diameter (diameter 30 mm at mid level). ??Abdominal aorta incompletely v isualized. ??Normal abdominal aorta Doppler flow pattern. Redundant atrial septal flap. ??No atri al level shunt by color flow imaging. ??No intracardiac mass or thrombus, but the left atrial ap pendage cannot be visualized adequately with transthoracic echo to exclude thrombus i n this location. ??Infusion catheter visualized in the RA. ??Tiny anterior pericardial effusion . For the complete report, see the [employer] Documents. Narrative 04/18/2021 1:34 PM CDT For the complete report, see the [employer] Documents. Final Impressions 1. Severely enlarged left ventricular ch darby size, calculated 2-D biplane volumetric ejection fraction 25 %, severe generalized left v entricular hypokinesis with regional variability. 2. Increased concentric left ventricular wall thickness. 3. Global averaged left ventricular long itudinal peak systolic strain is abnormal at -8 % (normal = more negative than -18%) with an apical sparing pattern. 4. Prominent left ventricular trabeculat ion. 5. Moderate mitral valve regurgitation. 6. Mild-moderately enlarged right ventri cular chamber size, moderate-severely reduced systolic function, estimated right ventricular sy stolic pressure 49 mmHg (systolic blood pressure 136 mmHg). 7. Averaged right ventricular free wall longitudinal peak systolic strain is -16 % (normal = more negative than -24%). 8. Moderate tricuspid valve regurgitatio n. 9. Tiny anterior pericardial effusion. Comments The constellation of findings are compat ible with infiltrative cardiomyopathy but can also be seen in the setting of end-stage renal d isease. Procedure Note Armando Gupta M.D., Ph.D. - 04/18/2021 For the complete report, see the [employer] Documents. Final Impressions 1. Severely enlarged left ventricular ch darby size, calculated 2-D biplane volumetric ejection fraction 25 %, severe generalized left v entricular hypokinesis with regional variability. 2. Increased concentric left ventricular wall thickness. 3. Global averaged left ventricular long itudinal peak systolic strain is abnormal at -8 % (normal = more negative than -18%) with an apical sparing pattern. 4. Prominent left ventricular trabeculat ion. 5. Moderate mitral valve regurgitation. 6. Mild-moderately enlarged right ventri cular chamber size, moderate-severely reduced systolic function, estimated right ventricular sy stolic pressure 49 mmHg (systolic blood pressure 136 mmHg). 7. Averaged right ventricular free wall longitudinal peak systolic strain is -16 % (normal = more negative than -24%). 8. Moderate tricuspid valve regurgitatio n. 9. Tiny anterior pericardial effusion. Comments The constellation of findings are compat ible with infiltrative cardiomyopathy but can also be seen in the setting of end-stage renal d isease. Findings No previous studies available for compar janeth. LEFT VENTRICLE: Severely enlarged left ventricular chamber size. Increased conc entric left ventricular wall thickness. Calculated 2-D linear left ventricular ejection fra ction 21 %. Calculated 2-D biplane volumetric left ventricular ejection fraction 25 %. Lindsay re generalized left ventricular hypokinesis with regional variability. Indeterminate left ventricular diastolic function. Global averaged left ventricular longitudinal peak systolic s train is abnormal at -8 % (normal = more negative than -18%). Prominent left ventricular trabec ulation. RIGHT VENTRICLE: Mild- moderately enlarged right ventricular chamber size most pred ominately at the base. Moderate-severely reduced right ventricular systolic function. Averaged right ventricular free wall longitudinal peak systolic strain is -16 % (normal = more negative than -24%). Estimated right ventricular systolic pressure 49 mmHg (right atrial pressure of 15 mmHg). Prominent right ventricular trabeculation. ATRIA: Severely enlarged left atrial size. Left atrial volume index 72 ml/m^2. Severely enlarged right atrial s ize. CARDIAC VALVES: Trileaflet aortic valve. Thickened aortic valve. Thickened aortic root terrazas. Calcified aortic annulus. Trivial aortic valve regurgitation. Thickened mi tral valve. Moderately calcified mitral annulus. Mitral valve diastolic mean Doppler grad ient 4 mmHg (heart rate 94 BPM). Moderate mitral valve regurgitation. Thickened pulmonary valve . Normal pulmonary valve systolic velocities. Mild-moderate pulmonary valve regurgitat ion. Thickened tricuspid valve. Moderate tricuspid valve regurgitation. OTHER ECHO FINDINGS : Enlarged inferior vena cava size with reduced inspiratory collapse (<50%). Normal mid ascending aorta diameter (diameter 30 mm at mid level). Abdominal aorta incompletely vis ualized. Normal abdominal aorta Doppler flow pattern. Redundant atrial septal flap. No atrial level shunt by color flow imaging. No intracardiac mass or thrombus, but the left atrial ap pendage cannot be visualized adequately with transthoracic echo to exclude thrombus i n this location. Infusion catheter visualized in the RA. Tiny anterior pericardial effusion. For the complete report, see the [employer] Documents. Will Manju Kamara M.D. CV ECHO PROCEDURES CT Chest Angiogram and Pulmonary Arteries with IV Contrast (04/18/2021 7:11 AM CDT) Anatomical Region Laterality Modality Chest, Cardiovascular RST LOS, Thoracic N/A Computed Tomography, Computed ARZ LOS, Thoracic FLA LOS Tomography Specimen (Source) Anatomical Collection Method Collection Time Re ceived Time Location / / Volume Laterality 04/18/2021 7:07 AM CDT Impressions 04/18/2021 7:19 AM CDT 1. Examination is negative for pulmonary embolus. 2. Small right pleural effusion. Narrative 04/18/2021 7:19 AM CDT EXAM: ??CT CHEST ANGIOGRAM AND PULMONARY ARTERIES WITH IV CONTRAST Including 3D image post-processing. COMPARISON: ??None available FINDINGS: Examination is negative for pulmonary em bolus. Cardiac enlargement. Reflux of contrast material into the IVC and hepatic veins suggests cardiac dysfunction. Small righ t pleural effusion. Scattered subsegmental atelectasis in both lungs. Very mild emphysematous changes both upper lungs. Multiple bilateral renal cysts. Multiple punctate calcifications in the visualized kidneys may be nonobstructing calculi versus within the terrazas of the renal cysts. Procedure Note Louise Feliz M.D. - 04/18/2021Form atting of this note might be different from the original. EXAM: CT CHEST ANGIOGRAM AND PULMONARY A RTERIES WITH IV CONTRAST Including 3D image post-processing. COMPARISON: None available FINDINGS: Examination is negative for pulmonary em bolus. Cardiac enlargement. Reflux of contrast material into the IVC and hepatic veins suggests cardiac dysfunction. Small righ t pleural effusion. Scattered subsegmental atelectasis in both lungs. Very mild emphysematous changes both upper lungs. Multiple bilateral renal cysts. Multiple punctate calcifications in the visualized kidneys may be nonobstructing calculi versus within the terrazas of the renal cysts. IMPRESSION: 1. Examination is negative for pulmonary embolus. 2. Small right pleural effusion. Will Manju Kamara M.D. IMG CT PROCEDURES (ABNORMAL) CBC with Differential, Blood (04/17/2021 5:13 PM CDT) Patholo gist Method Time Signature Hemoglobin 9.1 (L) 11.6 - 04/17/2021 DTL 15.0 g/dL 5:38 PM CDT Hematocrit 27.6 (L) 35.5 - 04/17/2021 DTL 44.9 % 5:38 PM CDT Erythrocytes 3.30 (L) 3.92 - 04/17/2021 DTL 5.13 5:38 PM CDT x10(12)/L MCV 83.6 78.2 - 04/17/2021 DTL 97.9 fL 5:38 PM CDT RBC Distrib Width 19.8 (H) 12.2 - 04/17/2021 DTL 16.1 % 5:38 PM CDT Platelet Count 335 157 - 371 04/17/2021 DTL x10(9)/L 5:38 PM CDT Leukocytes 7.0 3.4 - 9.6 04/17/2021 DTL x10(9)/L 5:38 PM CDT Neutrophils 5.44 1.56 - 04/17/2021 DTL 6.45 5:38 PM CDT x10(9)/L Lymphocytes 1.05 0.95 - 04/17/2021 DTL 3.07 5:38 PM CDT x10(9)/L Monocytes 0.45 0.26 - 04/17/2021 DTL 0.81 5:38 PM CDT x10(9)/L Eosinophils 0.03 0.03 - 04/17/2021 DTL 0.48 5:38 PM CDT x10(9)/L Basophils 0.06 0.01 - 04/17/2021 DTL 0.08 5:38 PM CDT x10(9)/L Specimen Anatomical Collection Method Collection Time Receive d Time (Source) Location / / Volume Laterality Blood (Blood, 04/17/2021 5:13 PM 04/17/20 21 5:30 Venous) CDT PM CDT Jonah Kamara M.D. LAB BLOOD ADD-ON Performing Organization Address City/State/ZIP Code Phon e Number [facility] - [address] [place], [place] [address] [facility] [place] [address] Laboratories-[facility] [address] (ABNORMAL) NT-Pro B-Type Natriuretic Peptide (BNP) (04/17/2021 5:13 PM CDT) athologist Signature NT-Pro BNP >36191 (H) <=239 04/17/2021 DTL pg/mL 6:24 PM CDT Comment: NT-proBNP values less than 300 pg/mL [...] Location / / Volume Laterality Blood (Blood, 04/17/2021 5:13 PM 04/17/20 5:41 Venous) CDT PM CDT Jonah Kamara M.D. LAB BLOOD ADD-ON Performing Organization Address City/State/ZIP Code Phon e Number [facility] - [address] [place], [place] [address] [facility] [place] [address] [facility] [address] (ABNORMAL) Troponin T, 2H/6H, 5th Gen (04/17/2021 5:13 PM CDT) athologist Signature Troponin T, 2 151 (H) <=10 ng/L 04/17/2021 [facility] hr, 5th gen 5:45 PM CDT Comment: Consider acute myocardial injur y 2H Delta 2 ng/L 04/17/2021 5:45 PM CDT [facility] 2H Delta Interp Not Changing 04/17/2021 5:45 PM CD T [facility] Troponin T, 6 hr, 5th gen CANCELED ng/L 04/17/2021 5:4 5 PM CDT ST[facility] Comment: Result canceled by the ancillar y. Specimen Anatomical Collection Method Collection Time Receive d Time (Source) Location / / Volume Laterality Blood (Blood, 04/17/2021 5:13 PM 04/17/20 5:20 Venous) CDT PM CDT Narrative [facility] - [facility] - 04/17/2021 5:45 PM CDT Specimen Information: Specimen ID: [id number] Specimen Type: Blood Specimen Collection Start Date: 021 ??5:13 PM Specimen Received Date: 04/17/2021 ??5: 20 PM Specimen ID: [id number] Specimen Type: Blood Specimen Collection Start Date: 021 ??5:45 PM Specimen Received Date: 04/17/2021 ??5: 45 PM Jonah Kamara M.D. LAB BLOOD TROPONIN Performing Organization Address City/State/[facility] Code Phon e Number [facility] - [address] [place], [place] [address] [place] [address] [facility] [address] Interpretation of Outside DX Chest (04/17/2021 2:50 [...] sitting portable AP view) dated 04/17/2021 from [facility]. Enlarged cardiac silhouette with prominence of the [...] sitting portable AP view) dated 04/17/2021 from [facility]. Enlarged cardiac silhouette with prominence of the pulmon maribell vascularity. Mild interstitial prominence, likely edema. Patchy opaciti es in the right base may represent edema, atelectasis, or infiltrate. Aorti c calcification. Right IJ catheter with tip projected near the SVC/RA junction. Degenerative changes visualized spine, both shoulders and AC joints. Will Manju Kamara M.D. IMG DIAGNOSTIC IMAGING PROCE BLACK (ABNORMAL) Hepatic Function Panel (04/17/2021 2:48 PM CDT) Patholo gist Method Time Signature Bilirubin, Total, S 0.7 <=1.2 04/17/2021 DTL mg/dL 4:05 PM CDT Bilirubin, Direct, S 0.2 0.0 - 0.3 04/17/2021 DTL mg/dL 4:05 PM CDT Aspartate 42 8 - 43 04/17/2021 DTL Aminotransferase U/L 4:05 PM CDT (AST), S Alanine 31 7 - 45 04/17/2021 DTL Aminotransferase U/L 4:05 PM CDT (ALT), S Alkaline 114 (H) 35 - 104 04/17/2021 DTL Phosphatase, S U/L 4:05 PM CDT Albumin, S 3.8 3.5 - 5.0 04/17/2021 DTL g/dL 4:05 PM CDT Protein, Total, S 6.9 6.3 - 7.9 04/17/2021 DTL g/dL 4:05 PM CDT Specimen Anatomical Collection Method Collection Time Receive d Time (Source) Location / / Volume Laterality Blood (Blood, 04/17/2021 2:48 PM 04/17/20 3:26 Venous) CDT PM CDT Narrative [facility] - 04/17/2021 4:05 PM CDT Specimen Information: Specimen ID: [id number] Specimen Type: Blood Specimen Collection Start Date: ??2:48 PM Specimen Received Date: 04/17/2021 ??3: 26 PM Specimen ID: [id number] Specimen Type: Blood Specimen Collection Start Date: 021 ??2:48 PM Specimen Received Date: 04/17/2021 ??3: 26 PM Will Manju Kamara M.D. LAB BLOOD ADD-ON Performing Organization Address City/State/ZIP Code Phon e Number [facility] - [address] [place], [place] [address] [facility] [place] [address] [facility] [address] [facility] (ABNORMAL) Renal Function Panel (04/17/2021 2:48 PM CDT) Analysis Performed At Patho logist Time Signature Potassium, S 4.7 3.6 - 5.2 04/17/2021 DTL mmol/L 4:05 PM CDT Sodium, S 141 135 - 145 04/17/2021 DTL mmol/L 4:05 PM CDT Chloride, S 99 98 - 107 04/17/2021 DTL mmol/L 4:05 PM CDT Bicarbonate, S 24 22 - 29 04/17/2021 DTL mmol/L 4:05 PM CDT Anion Gap 18 (H) 7 - 15 04/17/2021 DTL 4:05 PM CDT BUN (Blood Urea 96 (H) 6 - 21 04/17/2021 DTL Nitrogen), S mg/dL 4:05 PM CDT Creatinine 4.27 (H) 0.59 - 04/17/2021 DTL 1.04 mg/dL 4:05 PM CDT eGFR-Non <15 (L) >=60 04/17/2021 DTL Black/ mL/min/BSA 4:05 PM CDT Vincentian Comment: ----ADDITIONAL INFORMATION---- Estimated GFR calculated using the 2009 CKD_EPI creatinine equation. eGFR-Black/ <15 (L) >=60 mL/min/BSA 2020 4:05 PM CDT DTL Comment: ----ADDITIONAL INFORMATION---- Estimated GFR calculated using the 2009 CKD_EPI creatinine equation. Calcium, Total, S 8.9 8.8 - 10.2 mg/dL 04/17/2021 4:05 PM CDT DTL Glucose, S 83 70 - 140 mg/dL 04/17/2021 4:05 PM CDT D TL Albumin, S 3.8 3.5 - 5.0 g/dL 04/17/2021 4:05 PM CDT D TL Phosphorus (Inorganic), S 6.7 (H) 2.5 - 4.5 mg/dL 04/17/20 4:05 PM CDT DTL Specimen Anatomical Collection Method Collection Time Receive d Time (Source) Location / / Volume Laterality Blood (Blood, 04/17/2021 2:48 PM 04/17/20 3:26 Venous) CDT PM CDT Will Manju Kamara M.D. LAB BLOOD ADD-ON Performing Organization Address City/[facility] Phon e Number [facility] - [address] [place] [address] [facility] [place] [place] [address] (ABNORMAL) D-Dimer (04/17/2021 2:48 PM CDT) P athologist Signature D-Dimer, P 1741 (H) <=500 ng/mL 04/17/2021 [facility] FEU 3:09 PM CDT Comment: D-dimer concentrations increase with age . ??For DVT/PE exclusion, in addition to clinical pre-test probabi lity, age-adjusted D-dimer cut-offs are suggested for patients >50 years old. For additional information refer to the D-dimer assay i n the Laboratory Test Catalog (LTC) and/or [employer] (RAVINDRA) . ----ADDITIONAL INFORMATION---- D-dimer values less than or equal to 500 ng/mL fibrinogen equivalent units (FEU) may be used in co njunction with clinical pre-test probability to exclude deep vein thrombosis (DVT) and/or pulmonary emboli sm (PE). Specimen Anatomical Collection Method Collection Time Receive d Time (Source) Location / / Volume Laterality Blood (Blood, 04/17/2021 2:48 PM 04/17/20 2:58 Venous) CDT PM CDT Will Manju Kamara M.D. LAB BLOOD ADD-ON Performing Organization Address City/[facility] Phon e Number [facility] - [address] [place], [place] [address] [place] [address] [place] [address] (ABNORMAL) Troponin T, Baseline, 5th gen (04/17/2021 2:48 PM CDT) P athologist Signature Troponin T, 149 (H) <=10 ng/L 04/17/2021 [facility] Baseline, 5th 3:54 PM CDT gen Comment: Consider acute myocardial injur y Specimen Anatomical Collection Method Collection Time Receive d Time (Source) Location / / Volume Laterality Blood (Blood, 04/17/2021 2:48 PM 04/17/20 2:58 Venous) CDT PM CDT Will Manju Kamara M.D. LAB BLOOD TROPONIN Performing Organization Address City/[facility]/ZIP Code Phon e Number [facility] - [address] [place], [place] [address] [facility] [place] [address] (ABNORMAL) Procalcitonin (04/17/2021 2:48 PM CDT) athologist Signature Procalcitonin, 0.32 (H) <=0.08 04/17/2021 DTL S ng/mL 4:05 PM CDT Specimen Anatomical Collection Method Collection Time Receive d Time (Source) Location / / Volume Laterality Blood (Blood, 04/17/2021 2:48 PM 04/17/20 3:26 Venous) CDT PM CDT Will Manju Kamara M.D. LAB BLOOD ADD-ON Performing Organization Address City/[facility] Code Phon e Number [facility] - [address] [place], [place] [address] [facility] [place] [address] Laboratories-[address] (ABNORMAL) Hemoglobin A1c (04/17/2021 2:48 PM CDT) athologist Signature Hemoglobin A1c, 5.7 (H) 4.0 - 5.6 04/17/2021 DTL B % 3:30 PM CDT Comment: Hemoglobin A1c values of 5.7-6.4 percent indicate an increased risk for developing diabetes manju kidd. In diabetic patients, HbA1c goals should be discussed with healthcare provider. Specimen Anatomical Collection Method Collection Time Receive d Time (Source) Location / / Volume Laterality Blood (Blood, 04/17/2021 2:48 PM 04/17/20 3:09 Venous) CDT PM CDT Will Manju Kamara M.D. LAB BLOOD ADD-ON Performing Organization Address City/[facility]/ZIP Code Phon e Number [facility] - [address] [address] [facility] [address] [facility] Thyroid Function [place] (04/17/2021 2:47 PM CDT) athologist Signature TSH, Sensitive 1.6 0.3 - 4.2 04/19/2021 DTL mIU/L 8:38 AM CDT Specimen Anatomical Collection Method Collection Time Receive d Time (Source) Location / / Volume Laterality Blood (Blood, 04/17/2021 2:47 PM 04/19/20 7:45 Venous) CDT AM CDT Chantelle Mak APRN, C.N.P., D.N.P. LAB BLOOD ADD-ON Performing Organization Address City/State/ZIP Code Phon e Number [facility] - [id number] [place] [address] ECG 12 Lead (04/17/2021 2:36 PM CDT) athologist Signature Ventricular Rate 109 BPM MUSE ECG/Min NV Interval 148 ms MUSE QRSD Interval 126 ms MUSE QT Interval 378 ms MUSE QTC Interval 509 ms MUSE P Penrose 74 degrees MUSE R Penrose -34 degrees MUSE T Wave Penrose 75 degrees MUSE Specimen Anatomical Collection Method Collection Time Receive d Time (Source) Location / / Volume Laterality 04/17/2021 2:36 PM 2:40 CDT PM CDT Impressions MUSE - 04/17/2021 2:40 PM CDT Sinus tachycardia Left atrial enlargement Left axis deviation Right bundle branch block with secondary ST-T abnormalities Left ventricular hypertrophy No previous ECGs available Reviewed by GIACOMO Madsen Narrative This result has an attachment that is no t available. Procedure Note Laurent Rebolledo M.D. - 04/17/2021 IMPRESSION: Sinus tachycardia Left atrial enlargement Left axis deviation Right bundle branch block with secondary ST-T abnormalities Left ventricular hypertrophy No previous ECGs available Reviewed by GIACOMO Madsen Jonah Kamara M.D. 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 Anemia In Chronic Kidney Disease Acute On Chronic Systolic (Congestive) H eart Failure (HCC) Depression Anxiety documented in this encounter Admitting Diagnoses Diagnosis Dyspnea documented in this encounter Administered Medications Inactive Administered Medications - up to 3 most recent administrations Medication Order MAR Action Action Date Dose Rate Site calcitRIOL capsule 0.25 mcg Given 04/20/2021 9:19 AM CDT 0.25 mc g (ROCALTROL) 0.25 mcg, oral, Daily, First dose on Sat04/18/21 at 0900 Given 04/19/2021 12:05 PM CDT 0.25 mcg Given 04/18/2021 8:00 AM CDT 0.25 mcg calcium acetate(phosphat bind) capsule 667 mg Given 9:18 AM CDT 667 mg (PHOSLO) 667 mg, oral, 3 times daily with meals, First dose on Sat04/17/21 at 1700, 667 mg calcium acetate contains 169 mg of elemental calcium Given 04/19/2021 4:19 PM CDT 667 mg Given 04/19/2021 12:05 PM CDT 667 mg escitalopram tablet 5 mg (LEXAPRO) Given 04/20/2021 9:19 AM CDT 5 mg 5 mg, oral, Daily, First dose on Sat04/18/21 at 0900 Given 04/19/2021 12:05 PM CDT 5 mg Given 04/18/2021 8:00 AM CDT 5 mg furosemide tablet 80 mg (LASIX) Given 04/20/2021 9:18 AM CDT 80 mg 80 mg, oral, 2 times daily, First dose on Sat04/18/21 at 1700 Given 04/19/2021 4:19 PM CDT 80 mg Given 04/19/2021 12:05 PM CDT 80 mg heparin (porcine) 1,000 unit/mL injectio n - ADS Override Pull Starting on Sat04/17/21 at 1724, For 1 dose, Created by cabinet override heparin (porcine) 1,000 unit/mL Given 04/17/2021 5:36 PM CDT 2,0 00 Units injection 2,000 Units 2,000 Units, intravenous, Once in dialysis, On Sat04/17/21 at 1730, For 1 dose, Dialysis, Heparin (during dialysis) Loading dose heparin (porcine) 1,000 unit/mL Given 04/19/2021 8:05 AM CDT 2,0 00 Units injection 2,000 Units 2,000 Units, intravenous, Once in dialysis, On Sat04/19/21 at 0800, For 1 dose, Dialysis, Heparin (during dialysis) Loading dose heparin (porcine) Given 04/20/2021 9:19 AM CDT 5,000 Units Right Upper injection 5,000 Units Abdomen 5,000 Units, subcutaneous, 2 times daily, First dose (after last modification) on Sat04/17/21 at 2100 Given 04/19/2021 12:06 PM CDT 5,000 Units Left Upper Arm (Back) Given 04/18/2021 8:24 PM CDT 5,000 Units Left Lower Abdomen hydrALAZINE tablet 25 mg (APRESOLINE) Given 04/18/2021 8:23 PM CDT 25 mg 25 mg, oral, 2 times daily, First dose on Sat04/17/21 at 2100 Given 04/18/2021 8:00 AM CDT 25 mg Given 04/17/2021 9:40 PM CDT 25 mg iohexoL 350 mg iodine/mL solution 1-200 mL Given 04/18/2021 7:03 AM CDT 80 mL (OMNIPAQUE) 1-200 mL, intravenous, Once in imaging, contrast, Starting on Sat04/18/21 at 0703, For 1 dose, Imaging Protocol Orders, Dose per Radiant Medication Guidelines lisinopriL tablet 2.5 mg (PRINIVIL,ZESTR IL) Given 04/20/2021 9:19 AM CDT 2.5 mg 2.5 mg, oral, Daily, First dose on Jovita 04/20/21 at 0900 metoprolol succinate 24 hr tablet 12.5 mg Given 04/19/2021 8:34 PM CDT 12.5 mg (TOPROL-XL) 12.5 mg, oral, Daily, First dose on Sat04/19/21 at 2000, Do NOT crush or chew. multivitamin renal failure 50-0.5 mg per Given 04/20/2021 10 :45 AM CDT 1 tablet tablet 1 tablet (DIALYVITE) 1 tablet, oral, Daily, First dose on Jovita 04/20/21 at 0900 NaCl 0.9 % bolus 100 mL New Bag 04/19/2021 11:17 AM CDT 250 mL 100 mL/hr 100 mL, intravenous, at 100 mL/hr, Administer over 1 Hours, As needed, low blood pressure, see comments, Starting on Sat04/19/21 at 0750, For 5 doses, Dialysis, Administer as fast as possible. May repeat x 4 for a total volume of 500 mL for symptomatic hypotension during dialysis. Notify Service if symptomatic hypotension persists after blood pressure support interventions were implemented. New Bag 04/19/2021 8:03 AM CDT 40 mL 100 mL/hr sennosides-docusate sodium 8.6-50 mg per Given 04/20/2021 9:40 A M CDT 1 tablet tablet 1 tablet (SENOKOT-S) 1 tablet, oral, 2 times daily, First dose on Sat04/17/21 at 2100, Do not give if patient has diarrhea. Given 04/18/2021 8:23 PM CDT 1 tablet Given 04/18/2021 8:00 AM CDT 1 tablet sodium chloride (PF) 0.9 % injection 1-1 00 mL Given 04/18/2021 7:03 AM CDT 50 mL 1-100 mL, intravenous, Once, On 04/18/21 at 0715, For 1 dose, Imaging Protocol Orders sodium chloride 0.9 % flush 1-250 mL Given 04/19/2021 8:03 AM CDT 250 mL 1-250 mL, intravenous, As needed, line care, For priming and rinse back post dialysis, Starting on Sat04/19/21 at 0750, Dialysis, Dialysis order only. sodium chloride 0.9 % flush 250 mL Given 04/17/2021 5:36 PM CDT 250 mL 250 mL, intravenous, As needed, line care, For priming and rinse back post dialysis, Starting on Sat04/17/21 at 1721, Dialysis, Dialysis order only. documented in this encounter Active and Recently Administered Medications Times are shown in CDT. Scheduled Medication Order 04/18/2021 04/19/2021 04/20/2021 calcitRIOL capsule 0.25 mcg (ROCALTROL) 0800 (Given - Provider: Diana Martinez R.N.) 1205 (Given - Provider: Rosemary Cody R.N. - Commen t: Pt at dialysis) 0919 (Given - Provider: Darby Aguayo R.N.) 0.25 mcg, oral, Daily, First dose on Sat04/18/21 at 0900 calcium acetate(phosphat bind) capsule 667 mg (PHOSLO) 0800 (Given - Provider: Diana Martinez R.N.)1346 (Not Given - Provider: Darby Aguayo R.N. - Reason: Patient/family refused)181 (Given - Provider: Darby Aguayo R.N.) 1205 (Given - Provider: Rosemary Cody R.N. - Comment: Pt at dialysis)1207 (Not Given - Provider: Rosemary Cody R.N. - Reason: Other - Comment: Pt at dialysis)161 (Given - Provider: Libra Shoemaker R.N.) 0918 (Given - Provider: Darby Aguayo R.N.)1207 (Not Given - Provider: Alesha Felix R.N. - Reason: Order parameters not met) 667 mg, oral, 3 times daily with meals, First dose on Sat04/17/21 at 1700, 667 mg calcium acetate contains 169 mg of elemental calcium escitalopram tablet 5 mg (LEXAPRO) 0800 (Given - Provi james: Diana Martinez R.N.) 1205 (Given - Provider: Rosemary Cody R.N. - Commjaxson t: Pt at dialysis) 0919 (Given - Provider: Darby Aguayo R.N.) 5 mg, oral, Daily, First dose on Sat04/18/21 at 0900 furosemide tablet 80 mg (LASIX) 181 (Given - Provider: Irvin Aguayo R.N.) 1205 (Given - Provider: Rosemary Cody R.N. - Comment: Pt at dialysis)1619 (Given - Provider: Libra Shoemaker R.N.) 0918 (Given - Provider: Darby Aguayo R.N.) 80 mg, oral, 2 times daily, First dose on Sat04/18/21 at 1700 heparin (porcine) 1,000 unit/mL injection 2,000 Units (COMPL ETED) 0805 (Given - Provider: Justin Stone R.N.) 2,000 Units, intravenous, Once in dialys is, On Sat04/19/21 at 0800, For 1 dose, Dialysis, Heparin (during dialysis) Loading dose heparin (porcine) injection 5,000 Units 0800 (Given - Provider: Diana Martinez R.N.)2023 (Given - Provider: Juliana Lind R.N.) 1206 (Given - Provider: Rosemary Cody R.N. - Comment: Pt at dialysis)2033 (Not Given - Provider: Libra Shoemaker R.N. - Reason: Patient/family refused) 918 (Given - Provider: Darby Aguayo R.N.) 5,000 Units, subcutaneous, 2 times daily , First dose (after last modification) on Sat04/17/21 at 2100 hydrALAZINE tablet 25 mg (APRESOLINE) (CANCELED) 0800 (Given - Provider: Diana Martinez R.N.)2022 (Given - Provider: Juliana Lind R.N.) 1219 (Not Given - Provider: Rosemary Cody RDenilson - Reason: Discontinued) 25 mg, oral, 2 times daily, First dose on Sat04/17/21 at 2100 lisinopriL tablet 2.5 mg (PRINIVIL,ZESTRIL) 918 (Given - Provider: Darby Aguayo R.N.) 2.5 mg, oral, Daily, First dose on Sat04/20/21 at 0900 metoprolol succinate 24 hr tablet 12.5 mg (TOPROL-XL) 2033 (Given - Provider: Libra Shoemaker R.N.) 12.5 mg, oral, Daily, First dose on Sat04/19/21 at 20 00, Do NOT crush or chew. multivitamin renal failure 50-0.5 mg per tablet 1 tablet (DIALYV ITE) 1045 (Given - Provider: Darby Aguayo R.N.) 1 tablet, oral, Daily, First dose on Sat04/20/21 at 0900 sennosides-docusate sodium 8.6-50 mg per tablet 1 tabl et (SENOKOT-S) 0800 (Given - Provider: Diana Martinez R.N.)2022 (Given - Provider: Juliana Lind R.N.) 1205 (Not Given - Provider: Rosemary pacheco R.N. - Reason: Patient/family refused - Comment: Pt at dialysis)2033 (Not Given - Provider: Libra Shoemaker R.N. - Reason: Patient/family refused) 0940 (Given - Provider: Darby Aguayo RKandisNKandis) 1 tablet, oral, 2 times daily, First dos e on Sat04/17/21 at 2100, Do not give if patient has diarrhea. sodium chloride (PF) 0.9 % injection 1-100 mL (COMPLET ED) 0703 (Given - Provider: Tay Morales R.N.) 1-100 mL, intravenous, Once, On 03/31 at 0715, For 1 dose, Imaging Protocol Orders PRN Medication Order 04/18/2021 04/19/2021 04/20/2021 acetaminophen tablet 1,000 mg (TYLENOL) 1,000 mg, oral, Every 8 hours PRN, mild pain or score 1-3 of 10, moderate pain or score 4-6 of 10, headaches, fever, Starting on Sat04/17/21 at 1426 iohexoL 350 mg iodine/mL solution 1-200 mL (OMNIPAQUE) (COMPLETED) 0703 (Given - Provider: Tay Morales R.N.) 1-200 mL, intravenous, Once in imaging, contrast, Starting on Sat04/18/21 at 0703, For 1 dose, Imaging Protocol Orders, Dose per Radiant Medication Guidelines ipratropium-albuteroL 0.5-2.5 mg/3 mL nebulizer solution 3 mL (D UONEB) 3 mL, nebulization, Every 6 hours PRN, w heezing, shortness of breath, Starting on Sat04/17/21 at 1426 NaCl 0.9 % bolus 100 mL (CANCELED) 0803 (New Bag - Provider: Justin Stone R.N.)1117 (New Bag - Provider: Justin Stone R.N.) 100 mL, intravenous, at 100 mL/hr, Admin ister over 1 Hours, As needed, low blood pressure, see comments, Starting on Sat04/19/21 at 0750, For 5 doses, Dialysis, Administer as fast as possible. May repe at x 4 for a total volume of 500 mL for symptomatic hypotension during dialysis. Notify Service if symptomatic hypotension persists after blood pressure support interventions were implemented. ondansetron (PF) injection 4 mg (ZOFRAN) 4 mg, intravenous, Every 6 hours PRN, na usea, vomiting, Starting on Sat04/17/21 at 1426 polyethylene glycol powder packet 17 g (MIRALAX) 17 g, oral, Daily PRN, constipation, Sta rting on Sat04/17/21 at 1426, Ordered sequence of administration: polyethylene glycol, then bisacodyl until BM achieved. Avoid mixing with starch-based thickened liquids. sodium chloride 0.9 % flush 1-250 mL (CANCELED) 0803 (Given - Provider: Justin Stone R.N.) 1-250 mL, intravenous, As needed, line c are, For priming and rinse back post dialysis, Starting on Sat04/19/21 at 0750, Dialysis, Dialysis order only. documented in this encounter
--- OUTSIDE RECORDS SUMMARY | 2022-04-25 13:46 | XMS_ITS | Encounter Summary ---
:1940 Author Organization [facility] Address [address] [place] [address] Care Team Providers Name Role Phone Fabian Arias MD Primary Care Provider Encounter Details Date Type Department Care Team Description 04/11/2022 Treatment [facility] f Landon Zarate MD [address] [place] [address] [place], [place] [phone] (Wo rk) Social History Tobacco Use Types Packs/Day Years Used Date Smoking Tobacco: Smoker, Current Cigarettes Started: 07/01/1976 Status Unknown Sex Assigned at Date Recorded Not on file documented as of this encounter Miscellaneous Notes Dialysis Note - Landon Calvert MD - 04/11/2022 10:28 AM CDT Date: Apr 11, 2022 Patient Name: Zamzam Garibay : 1940 Chart #: [id number] Sex: F This patient was personally seen for a complete visit as part of routine monthly dialysis care. A review of the dialysis treatment, blood pressure, estimated dry weight and recent lab values was made. These were discussed with the patient and staff as necessary. MARINE CARGO INSPECTOR: Lnadon Calvert MD LOCATION: [place] [phone] SCHEDULE: -- 2nd Shift EDW: kg. DIALYZER: HD DURATION: NEEDLE SIZE: ANTICOAG: BATH: QB: ml/min QD: ml/min Subjective Tolerating dialysis well. 04/11: Access surgery scheduled later this month [...] prior to Saturday placement with HD at [place] that . 02/21: She says she feels [...] for access placement on Friday 02/02 at [facility] and had hyperkalemia and surgery cancelled and she dialyzed in the hospital instead. She had improved gain <1L today and will get close to EDW but not to dry weight. Her BP is a little better with this gain and on HD today looks excellent. She has no symptoms and feels well today. 01/24: She missed extra treatment on Sat at [facility]. Still above EDW. Trying to pull 2.6L today, traditionally has had issues with low BP with UF >2.3L but her BP is >200 systolic starting. Increased lisinopril last time, will increase again today. AVF/AVG surgery scheduled next week at [facility]. She feels well and has no dyspnea or orthopnea. 01/10/22: Her BP has been markedly elevated, persistently over dry weight and now 3+ Kg above dry weight post-Tx on Saturday. She does not lay flat due to SOB but this is chronic, denies dyspnea or other symptoms at this time. 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 12/06/21: She says she feels well. Her [...] her daughter and grandchild up in the [place] [facility]. No symptoms of fluid overload, denies [...] She has access appt on 10/03 at [facility]. No concerns today. 09/06/21: She is 9 [...] This is Jaz's first day back from [facility] isolation unit. She says she had no symptoms, but her son tested her when she was fatigued and had fever. She reports now having no symptoms at all. She says she feels great. Fluid gains have been better. 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 Can't remove [...] HD. 04/26/21: She was hospitalized briefly at [facility] for dyspnea, no pneumonia but rather related to CHF. She saw cardiology in follow-up in clinic, lisinopril and metoprolol and lasix with UF on HD to dry weight recommended. She is not interested in home dialysis, discussed today. 04/12/21: Patient new to me. She followed with assistant corporation counsel in [facility], did not follow-up,crashed into dialysis in [...] mouth once a day 04/12/2021 RenaPlex-D (vit b,f-qv-dile-selen-vit d3-e) 800 mcg-12.5 mg-2,000 unit tablet Take [...] made. Treatment and Adequacy Assessment BUN mg/dL 51 (04/04/22) 59 (03/07/22) 80 [...] (03/07/22) 2.2300 (01/31/22) 2.0500 (01/03/22) 1.9300 (11/29/21) Dialysis is adequate. Achieves prescribed time - Yes Achieves prescribed frequency - Yes Continue current prescription. Vascular Access Assessment Type of access: Catheterand LUE AVF New access surgery planned in December 2021 12/06/21: Attempted using AVF with one 17g needle, infiltrated, now pulling clots. Does not seem usable to me based on this and how it feels. 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 Will need new access placement. She is being set up for vein mapping and surgeon consult Anemia Assessment HEMOGLOBIN (G/DL) IN BLOOD g/dL 13.3 (04/04/22) 13.4 (03/28/22) 12.7 (03/21/22) 11.7 (03/14/22) 11.8 (03/07/22) PLATELETS 1000/mcL 301 (04/04/22) 298 (03/07/22) 255 (01/31/22) 340 (01/03/22) 358 (11/29/21) IRON SATURATION % 6 (11/29/21) 14 (11/01/21) 11 (10/04/21) 16 (08/30/21) 18 (08/02/21) FERRITIN ng/mL 228 (04/04/22) 214 (01/03/22) 28 (10/18/21) 39 (10/04/21) 293 (07/05/21) Hemoglobin is above goal. Iron Saturation is below goal. Ferritin is below goal. Will adjust CARIE and intravenous iron per protocol. Very responsive to Ferrilicit, continue iron but hold CARIE with Hgb >11 Nutritional and Metabolic Assessment ALBUMIN (G/DL) g/dL 4.1 (04/04/22) 4.2 (03/07/22) 4.2 (01/31/22) 4.1 (01/03/22) 3.8 (11/29/21) Sodium mEq/L 137 (04/04/22) 137 (03/07/22) 137 (01/31/22) 141 (01/03/22) 142 (11/29/21) POTASSIUM (MMOL/L) IN SER/PLAS mEq/L 5.6 (04/04/22) 5.0 (03/07/22) 4.6 (01/31/22) 4.7 (01/03/22) 4.3 (11/29/21) BICARBONATE (CO2) mEq/L 21 (04/04/22) 24 (03/07/22) 25 (01/31/22) 24 (01/03/22) 23 (11/29/21) Albumin is at goal. Encourage high-biological value protein intake. Potassium is at goal. Bicarbonate is at goal. Continue same bicarbonate in dialysate. Bone and Mineral Metabolism Assessment CALCIUM mg/dL 9.9 (04/04/22) 9.9 (03/07/22) 9.5 (02/21/22) 9.8 (01/31/22) 8.9 (01/03/22) CALCIUM (MG/DL) CORRECTED FOR ALBUMIN IN SER/PLAS mg/dL 9.8 (04/04/22) 9.7 (03/07/22) 9.6 (01/31/22) 8.8 (01/03/22) 9.3 (11/29/21) PHOSPHATE (MG/DL) IN SER/PLAS mg/dL 7.2 (04/04/22) 5.7 (03/07/22) 5.9 (01/31/22) 7.6 (01/03/22) 6.7 (11/29/21) CALCIUM PHOSPHORUS PRODUCT, COR 71 (04/04/22) 55 (03/07/22) 57 (01/31/22) 67 (01/03/22) 62 (11/29/21) IPTH pg/mL 619 (04/04/22) 522 (03/07/22) 607 (02/21/22) 684 (01/03/22) 138 (11/08/21) Corrected Calcium is at goal. Phosphorous is above goal. Intact PTH is at goal. Cold Storage Superintendent will adjust binders and vitamin D per protocol and continue to provide dietary education. Changing to non-Ca binder, discussed with RD Cardiovascular Assessment Blood pressures reviewed and are not at goal, see below. Intradialytic weight gains are too high. Estimated dry weight is appropriate. Continue same cardiovascular medications. BP improving, fluid gains improving Transplant Status: Patient is not a candidate. 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 Monitor for symptoms. Cardiology follow-up recommended at least annually Hypertension: continue current BP meds listed above, UF to dry weight, BP improving and monitor witheach treatment Landon Calvert MD [ Signed And locked electronically On 04/11/2022 at 10:30:09 AM ] Transcribed: Landon Calvert ( 04/11/2022 ) documented in this encounter Plan of Treatment Not on filedocumented as of this encounter Visit Diagnoses Not on filedocumented in this encounter Care Teams Mechanical Door Repairer Relationship Specialty Start Date End Date Fabian Arias MD PCP - General Family Medicine 09/04/[address] [place] [address] documented as of this encounter
--- OUTSIDE RECORDS SUMMARY | 2022-04-25 13:46 | XMS_ITS | Encounter Summary ---
:1940 Author Organization [facility] Address [address] [place] [address] Care Team Providers Name Role Phone Fabian Arias MD Primary Care Provider Encounter Details Date Type Department Care Team Description 02/21/2022 Orders Only [facility] f Landon Zarate MD [address] [place] [address] [place], [place] [phone] (Wo rk) Social History Tobacco Use [...] 02/22/2022 Unless otherwise specified, test(s) performed at: [facility], [address] [place] [address], [place] [address] ORDNANCE ARTIFICER: Vicente Flores M.D., Ph.D For any questions, please call customer service at FREQUENCY:OTHER Resulting Agency Comment Specimen source: Blood Landon Calvert MD LAB BLOOD ORDERABLES Performing Organization Address City[facility] Phon e Number APS SPECTRA [facility] (ABNORMAL) Spectrae Chemistry (02/21/2022) P athologist Signature PTH 607 (H) 16 - 80 APS SPECTRA pg/mL [facility] Specimen (Source) Anatomical Collection Method Collection Time Re ceived Time Location / / Volume Laterality 02/21/2022 02/22/2022 10:2 4 AM CDT Narrative APS SPECTRA [facility] - 02/22/2022 Unless otherwise specified, test(s) performed at: [facility], [address] [place] [address], [place] [address] ORDNANCE ARTIFICER: Vicente Flores M.D., Ph.D For any questions, please call customer service at FREQUENCY:OTHER Resulting Agency Comment Specimen source: Plasma Landon Calvert MD LAB BLOOD ORDERABLES Performing Organization Address [facility] Phon e Number APS SPECTRA [facility] Spectrae Chemistry (02/21/2022) P athologist Signature Calcium 9.5 8.7 - 10.4 APS SPECTRA mg/dL [facility] Comment: Please note change in reference range. Specimen (Source) Anatomical Collection Method Collection Time Re ceived Time Location / / Volume Laterality 02/21/2022 02/22/2022 9:40 AM CDT Narrative APS SPECTRA [facility] - 02/22/2022 Unless otherwise specified, test(s) performed at: [facility], [address] [place] [address], [place] [address] ORDNANCE ARTIFICER: Vicente Flores M.D., Ph.D For any questions, please call customer service at FREQUENCY:OTHER Resulting Agency Comment Specimen source: Serum Landon Calvert MD LAB BLOOD ORDERABLES Performing Organization Address City/State/ZIP Code Phon e Number APS SPECTRA [facility] documented in this encounter Visit Diagnoses Not on filedocumented in this encounter Care Teams [facility] Relationship Specialty Start Date End Date Fabian Arias MD PCP - General Family Medicine 09/04/[address] [place] [address] documented as of this encounter
--- OUTSIDE RECORDS SUMMARY | 2022-04-25 13:47 | XMS_ITS | Encounter Summary ---
:1940 Author Organization [facility] Address [address] [place] [address] Care Team Providers Name Role Phone Fabian Arias MD Primary Care Provider Encounter Details Date Type Department Care Team Description 02/02/2022 Treatment [facility] Adriane Carreno, FAHEEM [address] [place] [address] [place] [address] [place], [place] [phone] [place], [place] [phone] (Wo rk) Social History Tobacco Use Types Packs/Day Years Used Date Smoking Tobacco: Smoker, Current Cigarettes Started: 07/01/1976 Status Unknown Sex Assigned at Date Recorded Not on file documented as of this encounter Plan of Treatment Not on filedocumented as of this encounter Visit Diagnoses Not on filedocumented in this encounter Care Teams Search Lead Relationship Specialty Start Date End Date Fabian Arias MD PCP - General Family Medicine 09/04/[address] [place] [phone] documented as of this encounter
--- OUTSIDE RECORDS SUMMARY | 2022-04-25 13:47 | XMS_ITS | Encounter Summary ---
:1940 Author Organization [facility] Address [address] [place] [address] Care Team Providers Name Role Phone Fabian Arias MD Primary Care Provider Encounter Details Date Type Department Care Team Description 01/24/2022 Treatment [facility] Landon Zarate MD [address] [place] [address] [place] [phone] (Wo rk) Social History Tobacco Use Types Packs/Day Years Used Date Smoking Tobacco: Smoker, Current Cigarettes Started: 07/01/1976 Status Unknown Sex Assigned at Date Recorded Not on file documented as of this encounter Miscellaneous Notes Dialysis Note - Landon Calvert MD - 01/24/2022 11:53 AM CDT Date: Jan 24, 2022 Patient Name: Zamzam Garibay : 1940 Chart #: [id number] Sex: F This patient was personally seen [...] AM ) BP (sit): 200/99 AP(-) / LOTUS NOTES ADMINISTRATOR: n/a Pulse: 83 Chairside data as of [...] 2000 units IVP Every Treatment 07/05/2021 07/04/2022 CORRUGATOR MACHINE OPERATOR: Landon Calvert MD LOCATION: [phone] SCHEDULE: - 2nd Shift ACCESS: EDW: kg. DIALYZER: HD DURATION: NEEDLE SIZE: ANTICOAG: BATH: QB: ml/min QD: ml/min Subjective Tolerating dialysis well. 01/24: She missed extra treatment on Sat at [facility]. Still above EDW. Trying to pull 2.6L today, traditionally has had issues with low BP with UF >2.3L but her BP is >200 systolic starting. Increased lisinopril last time, will increase again today. AVF/AVG surgery scheduled next week at [facility]. She feels well and has no dyspnea or orthopnea. 01/10/22: Her BP has been markedly elevated, persistently over dry weight and now 3+ Kg above dry weight post-Tx on Saturday. She does not lay flat due to SOB but this is chronic, denies dyspnea or other symptoms at this time. 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 12/06/21: She says she feels well. [...] her daughter and grandchild up in the [facility]. No symptoms of fluid overload, denies dyspnea [...] She has access appt on 10/03 at [facility]. No concerns today. 09/06/21: She is 9 [...] This is Jaz's first day back from [facility]. She says she had no symptoms, but her son tested her when she was fatigued and had fever. She reports now having no symptoms at all. She says she feels great. Fluid gains have been better. 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 Can't remove [...] HD. 04/26/21: She was hospitalized briefly at [place] for dyspnea, no pneumonia but rather related to CHF. She saw cardiology in follow-up in clinic, lisinopril and metoprolol and lasix with UF on HD to dry weight recommended. She is not interested in home dialysis, discussed today. 04/12/21: Patient new to me. She followed with cvt tech in [facility], did not follow-up,crashed into [...] mouth once a day 04/12/2021 RenaPlex-D (vit b,a-ib-hvmf-selen-vit d3-e) 800 mcg-12.5 mg-2,000 unit tablet Take [...] how it feels. 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 Will need new access placement. She is being set up for vein mapping and surgeon consult Impression and Plan Stable dialysis BP too high Increase lisinopril Schedule extra treatment for UF AVF surgery next week at [facility] Landon Calvert MD [ Signed And locked electronically On 01/24/2022 at 11:54:51 AM ] Transcribed: Landon Calvert ( 01/24/2022 ) documented in this encounter Plan of Treatment Not on filedocumented as of this encounter Visit Diagnoses Not on filedocumented in this encounter Care Teams Stenographic Court Reporter Relationship Specialty Start Date End Date Fabian Arias MD PCP - General Family Medicine 09/04/[address] [place] [address] documented as of this encounter
--- OUTSIDE RECORDS SUMMARY | 2022-04-25 13:47 | XMS_ITS | Encounter Summary ---
:1940 Author Organization [facility] Address [address] [place] [address] Care Team Providers Name Role Phone Fabian Arias MD Primary Care Provider Encounter Details Date Type Department Care Team Description 02/07/2022 Treatment [facility] f Landon Zarate MD [address] [place] [address] [place], [place] [phone] (Wo rk) Social History Tobacco Use Types Packs/Day Years Used Date Smoking Tobacco: Smoker, Current Cigarettes Started: 07/01/1976 Status Unknown Sex Assigned at Date Recorded Not on file documented as of this encounter Miscellaneous Notes Dialysis Note - Landon Calvert MD - 02/07/2022 10:01 AM CDT Date: Feb 07, 2022 Patient Name: Zamzam Garibay : 1940 Chart #: [id number] Sex: F This patient was personally seen [...] AM ) BP (sit): 122/55 AP(-) / NIGHT CLERK: 229/134 Pulse: 81 Chairside data as of [...] 4000 units IVP Every Treatment 07/05/2021 07/04/2022 COMPETITIVE INTELLIGENCE ANALYST: Landon Calvert MD LOCATION: [place] [phone] SCHEDULE: M-W-F 2nd Shift EDW: kg. DIALYZER: [...] She missed extra treatment on Sat at [facility]. Still above EDW. Trying to pull 2.6L today, traditionally has had issues with low BP with UF >2.3L but her BP is >200 systolic starting. Increased lisinopril last time, will increase again today. AVF/AVG surgery scheduled next week at [facility]. She feels well and has no dyspnea or orthopnea. 01/10/22: Her BP has been markedly elevated, persistently over dry weight and now 3+ Kg above dry weight post-Tx on Saturday. She does not lay flat due to SOB but this is chronic, denies dyspnea or other symptoms at this time. 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 12/06/21: She says she feels well. [...] her daughter and grandchild up in the [facility]. No symptoms of fluid overload, [...] access appt on 10/03 at [facility]. No concerns today. 09/06/21: She is 9 [...] This is Jaz's first day back from [facility]. She says she had no symptoms, but her son tested her when she was fatigued and had fever. She reports now having no symptoms at all. She says she feels great. Fluid gains have been better. Only complaint is acid reflux with once weekly vomiting up acid in her mouth and she says she used to be on acid rotary drier but she hasn't had it sincebeing in [place] (despite it being on her med list [...] in the hospital overnight last month at [place], SOB resolved with fluid removal. Can't remove [...] HD. 04/26/21: She was hospitalized briefly at [place] for dyspnea, no pneumonia but rather related to CHF. She saw cardiology in follow-up in clinic, lisinopril and metoprolol and lasix with UF on HD to dry weight recommended. She is not interested in home dialysis, discussed today. 04/12/21: Patient new to me. She followed with mixer diamond powder in [facility], did not follow-up,crashed into dialysis in [...] mouth once a day 04/12/2021 RenaPlex-D (vit b,r-mn-whaw-selen-vit d3-e) 800 mcg-12.5 mg-2,000 unit tablet Take [...] feels. Will send back to [facility] for re-evaluation and I will discuss with surgeon there 11/01/21: I will call [facility] for update on whether they have received report from her AVF surgery and plan moving forward for access revision/creation [facility] September 2021, need report [facility] appt 08/2021: LUE AVF lower arm placed [...] above goal. Intact PTH is above goal. Claims Administrator will adjust binders and vitamin D per [...] Name: Zamzam Garibay : 1940 Chart #: [id number] Sex: F Patient has transitioned out of [...] mouth once a day 04/12/2021 RenaPlex-D (vit b,w-wb-wcjv-selen-vit d3-e) 800 mcg-12.5 mg-2,000 unit tablet Take [...] on filedocumented in this encounter Care Teams Home Advisor Relationship Specialty Start Date End Date Fabian Arias MD PCP - General Family Medicine 09/04/[address] [place] [phone] documented as of this encounter
--- OUTSIDE RECORDS SUMMARY | 2022-04-25 13:47 | XMS_ITS | Encounter Summary ---
:1940 Author Organization [facility] Address [address] [place] [address] Care Team Providers Name Role Phone Fabian Arias MD Primary Care Provider Encounter Details Date Type Department Care Team Description 12/20/2021 Orders Only [facility] f Landon Zarate MD [phone] [place] [address] [place], [place] [phone] (Wo rk) Social History Tobacco Use [...] 12/21/2021 Unless otherwise specified, test(s) performed at: [facility], [address] [place] [address] MOTION PICTURE EQUIPMENT SUPERVISOR: Carl Paula M.D. For any questions, please call customer service at FREQUENCY:OTHER Resulting Agency Comment Specimen source: Blood Landon Calvert MD LAB BLOOD ORDERABLES Performing Organization Address City/State/ZIP Code Phon e Number [facility] documented in this encounter Visit Diagnoses Not on filedocumented in this encounter Care Teams Sport Intern Relationship Specialty Start Date End Date Fabian Arias MD PCP - General Family Medicine 09/04/[address] [place] [address] documented as of this encounter
--- OUTSIDE RECORDS SUMMARY | 2022-04-25 13:47 | XMS_ITS | Encounter Summary ---
:1940 Author Organization [facility] Address [address] [place] [address] Care Team Providers Name Role Phone Fabian Arias MD Primary Care Provider Encounter Details Date Type Department Care Team Description 01/24/2022 Orders Only [facility] f Landon Zarate MD [phone] [place] [address] [place], [place] [phone] (Wo rk) Social History Tobacco Use [...] 01/25/2022 Unless otherwise specified, test(s) performed at: [facility], [address] [place] [address] [place] [address] CORRECTION OFFICER REFORMATORY: Vicente Flores M.D., Ph.D For any questions, please call customer service at FREQUENCY:OTHER Resulting Agency Comment Specimen source: Blood Landon Calvert MD LAB BLOOD ORDERABLES Performing Organization Address City/State/ZIP Code Phon e Number [facility] documented in this encounter Visit Diagnoses Not on filedocumented in this encounter Care Teams Colloid Mill Operator Relationship Specialty Start Date End Date Fabian Arias MD PCP - General Family Medicine 09/04/[address] [place] [address] documented as of this encounter
--- OUTSIDE RECORDS SUMMARY | 2022-04-25 13:47 | XMS_ITS | Encounter Summary ---
:1940 Author Organization [facility] Address [address] [place] [address] Care Team Providers Name Role Phone Fabian Arias MD Primary Care Provider Encounter Details Date Type Department Care Team Description 12/06/2021 Orders Only [facility] f Landon Zarate MD [phone] [place] [address] [place], [place] [phone] (Wo rk) Social History Tobacco Use Types Packs/Day Years Used Date Smoking Tobacco: Smoker, Current Cigarettes Started: 07/01/1976 Status Unknown Sex Assigned at Date Recorded Not on file documented as of this encounter Plan of Treatment Not on filedocumented as of this encounter Procedures Procedure Name Priority Date/Time Associated Diagnosis Comme nts HEMATOLOGY Routine 12/06/2021 Results for thi s procedure are in the resu lts section. documented in this encounter Results (ABNORMAL) HEMATOLOGY (12/06/2021) Analysis Performed At Patho logist Time Signature Hemoglobin 8.0 (L) 12.0 - [facility] 16.0 g/dL [facility] Hemoglobin x 3 24.0 (L) 36.0 - [facility] 48.0 % [facility] Specimen (Source) Anatomical Collection Method Collection Time Re ceived Time Location / / Volume Laterality 12/06/2021 12/08/2021 1:00 PM CDT Narrative [facility] - 12/08/2021 Unless otherwise specified, test(s) performed at: [facility], [address] [place] [address] LEARNING AND DEVELOPMENT DIRECTOR: Carl Paula M.D. For any questions, please call customer service at FREQUENCY:OTHER Resulting Agency Comment Specimen source: Blood Landon Calvert MD LAB BLOOD ORDERABLES Performing Organization Address City/State/ZIP Code Phon e Number [facility] documented in this encounter Visit Diagnoses Not on filedocumented in this encounter Care Teams Automotive Parts Person Relationship Specialty Start Date End Date Fabian Arias MD PCP - General Family Medicine 09/04/[address] [place] [address] documented as of this encounter
--- OUTSIDE RECORDS SUMMARY | 2022-04-25 13:47 | XMS_ITS | Encounter Summary ---
:1940 Author Organization [facility] Address [address] [place] [address] Care Team Providers Name Role Phone Fabian Arias MD Primary Care Provider Encounter Details Date Type Department Care Team Description 12/13/2021 Orders Only [facility] f Landon Zarate MD [address] [place] [address] [place], [place] [phone] (Wo rk) Social History Tobacco Use [...] 12/14/2021 Unless otherwise specified, test(s) performed at: [facility], [address] [place] [address] CHRONIC CARE NURSE: Carl aPula M.D. For any questions, please call customer service at FREQUENCY:OTHER Resulting Agency Comment Specimen source: Blood Landon Calvert MD LAB BLOOD ORDERABLES Performing Organization Address City/State/ZIP Code Phon e Number [facility] documented in this encounter Visit Diagnoses Not on filedocumented in this encounter Care Teams Street Light Servicer Helper Relationship Specialty Start Date End Date Fabian Arias MD PCP - General Family Medicine 09/04/[address] [place] [address] documented as of this encounter
--- OUTSIDE RECORDS SUMMARY | 2022-04-25 13:47 | XMS_ITS | Encounter Summary ---
:1940 Author Organization [facility] Address [address] [place] [address] Care Team Providers Name Role Phone Fabian Arias MD Primary Care Provider Encounter Details Date Type Department Care Team Description 2021 Treatment [facility] f Landon Zarate MD [address] [place] [address] [place], [place] [phone] (Wo rk) Social History Tobacco Use Types Packs/Day Years Used Date Smoking Tobacco: Smoker, Current Cigarettes Started: 07/01/1976 Status Unknown Sex Assigned at Date Recorded Not on file documented as of this encounter Miscellaneous Notes Dialysis Note - Landon Calvert MD - 2021 10:28 AM CDT Date: 2021 Patient Name: Zamzam Garibay : 1940 Chart #: [id number] Sex: F This patient was personally seen [...] AM ) BP (sit): 138/82 AP(-) / POWER EQUIPMENT TECHNOLOGY INSTRUCTOR: 189/134 Pulse: 90 Chairside data as of [...] 125 mg IV Every Treatment 12/06/2021 01/03/2022 NUTRIENT MANAGEMENT SPECIALIST: Landon Calvert MD LOCATION: [phone] SCHEDULE: -- 2nd Shift ACCESS: EDW: kg. [...] She denies any SOB or orthopnea at [facility]. 12/06/21: She says she feels [...] her daughter and grandchild up in the [facility]. No symptoms of fluid overload, denies [...] She has access appt on 10/03 at [facility]. No concerns today. 09/06/21: She is 9 [...] This is Jaz's first day back from [facility] isolation unit. She says she had no symptoms, but her son tested her when she was fatigued and had fever. She reports now having no symptoms at all. She says she feels great. Fluid gains have been better. Only complaint is acid reflux with once weekly vomiting up acid in her mouth and she says she used to be on acid supervisor rod placing but she hasn't had it sincebeing in [...] in the hospital overnight last month at [place], SOB resolved with fluid removal. Can't remove [...] HD. 04/26/21: She was hospitalized briefly at [place] for dyspnea, no pneumonia but rather related to CHF. She saw cardiology in follow-up in clinic, lisinopril and metoprolol and lasix with UF on HD to dry weight recommended. She is not interested in home dialysis, discussed today. 04/12/21: Patient new to me. She followed with administrative liaison in [facility], did not follow-up,crashed into dialysis in [...] mouth once a day 04/12/2021 RenaPlex-D (vit b,l-bl-ijsm-selen-vit d3-e) 800 mcg-12.5 mg-2,000 unit tablet Take [...] how it feels. Will send back to [facility] for re-evaluation and I will discuss with surgeon there 11/01/21: I will call [facility] for update on whether they have received report from her AVF surgery and plan moving forward for access revision/creation [facility] September 2021, need report [facility] appt 08/2021: LUE AVF lower arm placed [...] on filedocumented in this encounter Care Teams Brick Handler Relationship Specialty Start Date End Date Fabian Arias MD PCP - General Family Medicine 09/04/[address] [place] [address] documented as of this encounter
--- OUTSIDE RECORDS SUMMARY | 2022-04-25 13:47 | XMS_ITS | Encounter Summary ---
:1940 Author Organization [facility] Address [address] [place] [address] Care Team Providers Name Role Phone Fabian Arias MD Primary Care Provider Encounter Details Date Type Department Care Team Description 2021 Orders Only [facility] f Landon Zarate MD [address] [place] [address] [place], [place] [phone] (Wo rk) Social History Tobacco Use [...] 12/28/2021 Unless otherwise specified, test(s) performed at: [facility], [address] [place] [address] ADJUSTO WRITER OPERATOR: Carl Paula M.D. For any questions, please call customer service at FREQUENCY:OTHER Resulting Agency Comment Specimen source: Blood Landon Calvert MD LAB BLOOD ORDERABLES Performing Organization Address City/State/ZIP Code Phon e Number [facility] documented in this encounter Visit Diagnoses Not on filedocumented in this encounter Care Teams Unhairing Inspector Relationship Specialty Start Date End Date Fabian Arias MD PCP - General Family Medicine 09/04/[address] [place] [address] documented as of this encounter
--- OUTSIDE RECORDS SUMMARY | 2022-04-25 13:47 | XMS_ITS | Encounter Summary ---
:1940 Author Organization [facility] Address [address] [place] [address] Care Team Providers Name Role Phone Fabian Arias MD Primary Care Provider Encounter Details Date Type Department Care Team Description 01/10/2022 Treatment [facility] f Landon Zarate MD [address] [place] [address] [place], [place] [phone] (Wo rk) Social History Tobacco Use Types Packs/Day Years Used Date Smoking Tobacco: Smoker, Current Cigarettes Started: 07/01/1976 Status Unknown Sex Assigned at Date Recorded Not on file documented as of this encounter Miscellaneous Notes Dialysis Note - Landon Calvert MD - 01/10/2022 10:24 AM CDT Date: Jan 10, 2022 Patient Name: Zamzam Garibay : 1940 Chart #: [id number] Sex: F This patient was personally seen for a complete visit as part of routine monthly dialysis care. A review of the dialysis treatment, blood pressure, estimated dry weight and recent lab values was made. These were discussed with the patient and staff as necessary. PATIENT PORTAL REPRESENTATIVE: Landon Calvert MD LOCATION: [facility] [phone] SCHEDULE: -W- 2nd Shift EDW: kg. DIALYZER: [...] PCAD continues to bother her, went to [facility] yesterday but she will [...] She denies any SOB or orthopnea at [facility]. 12/06/21: She says she feels [...] her daughter and grandchild up in the [facility]. No symptoms of fluid overload, [...] She has access appt on 10/03 at [facility]. No concerns today. 09/06/21: [...] says she used to be on acid powder line repairer but she hasn't had it sincebeing in [place] (despite it being on her med list [...] in the hospital overnight last month at [place], SOB resolved with fluid removal. Can't remove [...] HD. 04/26/21: She was hospitalized briefly at [place] for dyspnea, no pneumonia but rather related to CHF. She saw cardiology in follow-up in clinic, lisinopril and metoprolol and lasix with UF on HD to dry weight recommended. She is not interested in home dialysis, discussed today. 04/12/21: Patient new to me. She followed with signal wirer in [facility], did not follow-up,crashed into dialysis in [...] mouth once a day 04/12/2021 RenaPlex-D (vit b,u-fi-rkoj-selen-vit d3-e) 800 mcg-12.5 mg-2,000 unit tablet Take [...] how it feels. Will send back to [facility] for re-evaluation and I will discuss with surgeon there 11/01/21: I will call [facility] for update on whether they have received report from her AVF surgery and plan moving forward for access revision/creation [facility] September 2021, need report [facility] appt 08/2021: LUE AVF lower arm placed in [place], fistulagram / stenosis of vein proximal not [...] above goal. Intact PTH is above goal. Sales Floor Team Member will adjust binders and vitamin D per [...] a UF run on Saturday in the [facility] as do not work for her. I [...] phos binding pills Access surgery scheduled at [facility] later this month, hope to get PCAD out soon when working arm access Landon Calvert MD [ Signed And locked electronically On 01/10/2022 at 10:30:00 AM ] Transcribed: Landon Calvert ( 01/10/2022 ) documented in this encounter Plan of Treatment Not on filedocumented as of this encounter Visit Diagnoses Not on filedocumented in this encounter Care Teams Tuck Pointer Relationship Specialty Start Date End Date Fabian Arias MD PCP - General Family Medicine 09/04/[address] [place] [phone] documented as of this encounter
--- OUTSIDE RECORDS SUMMARY | 2022-04-25 13:47 | XMS_ITS | Encounter Summary ---
:1940 Author Organization [facility] Address [address] [place] [address] Care Team Providers Name Role Phone Fabian Arias MD Primary Care Provider Encounter Details Date Type Department Care Team Description 01/17/2022 Orders Only [facility] O f Landon Zarate MD [phone] [place] [address] [place], [place] [phone] (Wo rk) Social History Tobacco Use [...] 01/18/2022 Unless otherwise specified, test(s) performed at: [facility], [address] [place] [address], [place] [address] ACCOUNTS PAYABLE ASSOCIATE: Vicente Flores M.D., Ph.D For any questions, please call customer service at FREQUENCY:OTHER Resulting Agency Comment Specimen source: Blood Landon Calvert MD LAB BLOOD ORDERABLES Performing Organization Address City/State/ZIP Code Phon e Number APS SPECTRA [facility] documented in this encounter Visit Diagnoses Not on filedocumented in this encounter Care Teams Books Salesperson Relationship Specialty Start Date End Date Fabian Arias MD PCP - General Family Medicine 09/04/[address] [place] [address] documented as of this encounter
--- OUTSIDE RECORDS SUMMARY | 2022-04-25 13:47 | XMS_ITS | Encounter Summary ---
:1940 Author Organization [facility] Address [address] [place] [address] Care Team Providers Name Role Phone Fabian Arias MD Primary Care Provider Encounter Details Date Type Department Care Team Description 01/31/2022 Orders Only [facility] O f Landon Zarate MD [phone] [place] [address] [place], [place] [phone] (Wo rk) Social History Tobacco Use [...] Results (01/31/2022) P athologist Signature eKt/V 1.91 CELIA ([place]) eKt/V Gotch 1.95 CELIA spKt/V Gotch 2.32 CELIA eNPCR 1.56 CELIA spKt/V 2.23 CELIA ([place]ird[place] II) eKdrt/V 1.95 CELIA nPCR_HD 1.68 CELIA PCR 67.63 CELIA Specimen (Source) Anatomical Location Collection Method / Collectio n Time Received Time / Laterality Volume 01/31/2022 01/31/2022 Celia Ordering Provider LAB BLOOD ORDERABLES Performing Organization Address City/[facility]/ZIP Code Phon e Number CELIA [...] 02/01/2022 Unless otherwise specified, test(s) performed at: [facility], [address] [place] [address], [place] [address] MORTGAGE LOAN INTERVIEWER: Vicente Flores M.D., Ph.D For any questions, please call customer service at FREQUENCY:MONTHLY Resulting Agency Comment Specimen source: Plasma Landon Calvert MD LAB BLOOD ORDERABLES Performing Organization Address City/[facility] Code Phon e Number APS [...] 02/01/2022 Unless otherwise specified, test(s) performed at: [facility], [address] [place] [address], [place] [address] MORTGAGE LOAN INTERVIEWER: Vicente Flores M.D., Ph.D For any questions, [...] 02/01/2022 Unless otherwise specified, test(s) performed at: [facility], [address] [place] [address], [place] [address] MORTGAGE LOAN INTERVIEWER: Vicente Flores M.D., Ph.D For any questions, please call customer service at FREQUENCY:MONTHLY Resulting Agency Comment Specimen source: Serum Lanodn Calvert MD LAB BLOOD ORDERABLES Performing Organization [...] 02/01/2022 Unless otherwise specified, test(s) performed at: [facility], [address] [place] [address] [place] [address] MORTGAGE LOAN INTERVIEWER: Vicente Flores M.D., Ph.D For any questions, please call customer service at FREQUENCY:MONTHLY Resulting Agency Comment Specimen source: Blood Landon Calvert MD LAB BLOOD ORDERABLES Performing Organization Address City/State/ZIP Code Phon e Number APS SPECTRA [facility] documented in this encounter Visit Diagnoses Not on filedocumented in this encounter Care Teams Chronic Specialist Relationship Specialty Start Date End Date Fabian Arias MD PCP - General Family Medicine 09/04/[address] [place] [address] documented as of this encounter
--- OUTSIDE RECORDS SUMMARY | 2022-04-25 13:47 | XMS_ITS | Encounter Summary ---
:1940 Author Organization [facility] Address [address] [place] [address] Care Team Providers Name Role Phone Fabian Arias MD Primary Care Provider Encounter Details Date Type Department Care Team Description 12/06/2021 Treatment [facility] O f Landon Zarate MD [address] [place] [address] [place], [place] [phone] (Wo rk) Social History Tobacco Use Types Packs/Day Years Used Date Smoking Tobacco: Smoker, Current Cigarettes Started: 07/01/1976 Status Unknown Sex Assigned at Date Recorded Not on file documented as of this encounter Miscellaneous Notes Dialysis Note - Landon Calvert MD - 12/06/2021 10:03 AM CDT Date: Dec 06, 2021 Patient Name: Zamzam Garibay : 1940 Chart #: [id number] Sex: F This patient was personally seen [...] AM ) BP (sit): 175/83 AP(-) / SUPERVISOR BLOOMING MILL: 234/72 Pulse: 70 Chairside data as of [...] 125 mg IV Every Treatment 12/06/2021 01/03/2022 CONSTRUCTION SITE MANAGER: Landon Calvert MD LOCATION: [phone] SCHEDULE: -- 2nd Shift EDW: kg. DIALYZER: [...] her daughter and grandchild up in the [facility]. No symptoms of fluid overload, [...] This is Jaz's first day back from [facility] isolation unit. She says she had no symptoms, but her son tested her when she was fatigued and had fever. She reports now having no symptoms at all. She says she feels great. Fluid gains have been better. 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 Can't remove [...] HD. 04/26/21: She was hospitalized briefly at [facility] [place] for dyspnea, no pneumonia but rather related to CHF. She saw cardiology in follow-up in clinic, lisinopril and metoprolol and lasix with UF on HD to dry weight recommended. She is not interested in home dialysis, discussed today. 04/12/21: Patient new to me. She followed with feltmaker and weigher in [facility], did not follow-up,crashed into dialysis [...] mouth once a day 04/12/2021 RenaPlex-D (vit b,g-qj-hlor-selen-vit d3-e) 800 mcg-12.5 mg-2,000 unit tablet Take [...] how it feels. Will send back to [facility] for re-evaluation and I will discuss with surgeon there 11/01/21: I will call [facility] for update on whether they have received report from her AVF surgery and plan moving forward for access revision/creation [facility] September 2021, need report [facility] appt 08/2021: LUE AVF lower arm placed in [place], fistulagram / stenosis of vein proximal not [...] above goal. Intact PTH is at goal. Mold Operator will adjust binders and vitamin D [...] Resuscitation Status Stable dialysis Send back to [facility] Work on fluid gains <2L, may need [...] on filedocumented in this encounter Care Teams Body Shop Mechanic Relationship Specialty Start Date End Date Fabian Arias MD PCP - General Family Medicine 09/04/[address] [place] [address] documented as of this encounter
--- OUTSIDE RECORDS SUMMARY | 2022-04-25 13:47 | XMS_ITS | Encounter Summary ---
:1940 Author Organization [facility] Address [address] [place] [address] Care Team Providers Name Role Phone Fabian Arias MD Primary Care Provider Encounter Details Date Type Department Care Team Description 01/03/2022 Orders Only [facility] O f Landon Zarate MD [address] [place] [address] [place], [place] [phone] (Wo rk) Social History Tobacco Use [...] Number CELIA (ABNORMAL) HD KINETICS (01/03/2022) athologist [facility] % Urea 82 (H) 65 - 80 % APS SPECTRA Reduction [facility] Specimen (Source) Anatomical Collection Method Collection Time Re ceived Time Location / / Volume Laterality 01/03/2022 01/05/2022 3:58 PM CDT Resulting Agency Comment Specimen source: Plasma Landon Calvert MD LAB BLOOD ORDERABLES Performing Organization Address City/State/ZIP Code Phon e Number APS SPECTRA [facility] POST CHEMISTRY (01/03/2022) athologist [facility] BUN Post 11 6 - 19 APS SPECTRA Dialysis mg/dL [facility] Specimen (Source) Anatomical Collection Method Collection Time Re ceived Time Location / / Volume Laterality 01/03/2022 01/05/2022 3:58 PM CDT Narrative APS SPECTRA [facility] - 01/06/2022 Unless otherwise specified, test(s) performed at: [facility], [address] [place] [address], [place] [address] CLERICAL GRADER: Vicente Flores M.D., Ph.D For any questions, [...] 01/06/2022 Unless otherwise specified, test(s) performed at: [facility], [address] [place] [address], [place] [address] CLERICAL GRADER: Vicente Flores M.D., Ph.D For any questions, [...] 01/05/2022 Unless otherwise specified, test(s) performed at: [facility] [place] [address] CLERICAL GRADER: Vicente Flores M.D., Ph.D For any questions, please call customer service at FREQUENCY:MONTHLY Resulting Agency Comment Specimen source: Blood Landon Calvert MD LAB BLOOD ORDERABLES Performing Organization Address City/State/[facility] Code Phon e Number APS SPECTRA [facility] (ABNORMAL) SPECIAL CHEMISTRY (01/03/2022) P athologist Signature Vitamin D, 14.9 (L) 19.9 - APS SPECTRA 1,25-Dihydroxy 79.3 pg/mL [facility] Specimen (Source) Anatomical Collection Method Collection Time Re ceived Time Location / / Volume Laterality 01/03/2022 01/05/2022 3:45 AM CDT Narrative APS SPECTRA [facility] - 01/05/2022 Unless otherwise specified, test(s) performed at: [facility], [address] [place] [address] CLERICAL GRADER: Vicente Flores M.D., Ph.D For any questions, please call customer service at FREQUENCY:MONTHLY Resulting Agency Comment Specimen source: Serum Landon Calvert MD LAB BLOOD BANK TEST ORDERABL ES Performing Organization Address City/State/ZIP Code Phon e Number APS SPECTRA [facility] (ABNORMAL) Spectrae Chemistry (01/03/2022) [facility] gist Method Time Signature BUN 62 (H) [...] 01/05/2022 Unless otherwise specified, test(s) performed at: [facility], [address] [place] [address], [place] [address] CLERICAL GRADER: Vicente Flores M.D., Ph.D For any questions, please call customer service at FREQUENCY:MONTHLY Resulting Agency Comment Specimen source: Serum Landon Calvert MD LAB BLOOD ORDERABLES Performing Organization Address City/State/ZIP Code Phon e Number APS SPECTRA [facility] documented in this encounter Visit Diagnoses Not on filedocumented in this encounter Care Teams Nurse Ob Relationship Specialty Start Date End Date Fabian Arias MD PCP - General Family Medicine 09/04/[address] [place] [address] documented as of this encounter
--- OUTSIDE RECORDS SUMMARY | 2022-04-25 13:47 | XMS_ITS | Encounter Summary ---
:1940 Author Organization [facility] Address [address] [place] [address] Care Team Providers Name Role Phone Fabian Arias MD Primary Care Provider Reason for Visit Reason Onset Date Comments ESRD Post-Discharge 02/05/2022 Encounter Details Date Type Department Care Team Description 02/05/2022 Telephone [facility] Alma Major RN ESRD Post-Discharge [address] [place] [phone] (Wo rk) Social History Tobacco Use Types Packs/Day Years Used Date Smoking Tobacco: Smoker, Current Cigarettes Started: 07/01/1976 Status Unknown Sex Assigned at Date Recorded Not on file documented as of this encounter Miscellaneous Notes Telephone Encounter - Cora Garcia LPN - 02/05/2022 2:24 PM CDT 02/05/2022 Patient Name: Zamzam Garibay Patient : 1940 Patient Address: [address] [place] [address] Patient Medications All medications were reviewed with the patient based on the discharge summary dated 02/02/22 from [facility]. Fluid Assessment: Do you feel you had an appropriate amount of fluid removed/is your fluid status appropriate? Yes Do you feel short of breath? No Do you have any other symptoms (cramps/dizziness)? No Barriers to Care: Confirm dialysis location: [facility] Scheduled date and time: MWF 2nd Do you have any concerns with getting to your dialysis unit? No Reviewed discharge summary, including in assisting with follow-up appointments, tests or treatments ordered, coordinating with other providers involved with aftercare, and providing community resourcesand/or education that were ordered during the patients hospital stay. Cora Garcia LPN Telephone Encounter - Alma Sr RN - 02/05/2022 1:24 PM CDT Son answered call, patients phone is not working at the time. Son to relay message for patient to call [place]. documented in this encounter Plan of Treatment Not on filedocumented as of this encounter Visit Diagnoses Not on filedocumented in this encounter Care Teams Retail Maintenance Technician Relationship Specialty Start Date End Date Fabian Arias MD PCP - General Family Medicine 09/04/[address] [place] [address] documented as of this encounter
--- OUTSIDE RECORDS SUMMARY | 2022-04-25 13:48 | XMS_ITS | Encounter Summary ---
:1940 Author Organization [facility] Address [address] [place] [address] Care Team Providers Name Role Phone Fabian rAias MD Primary Care Provider Encounter Details Date Type Department Care Team Description 11/01/2021 Orders Only [facility] O f Landon Zarate MD [address] [place] [address] [place], [place] [phone] (Wo rk) Social History Tobacco Use [...] MD LAB BLOOD ORDERABLES Performing Organization Address City/[facility]/ZIP Code Phon e Number APS SPECTRA [facility] POST CHEMISTRY (11/01/2021) athologist Signature BUN Post 11 6 - 19 APS SPECTRA Dialysis mg/dL [facility] Specimen (Source) Anatomical Collection Method Collection Time Re ceived Time Location / / Volume Laterality 11/01/2021 11/02/2021 11:2 2 PM CDT Narrative APS SPECTRA [facility] - 11/03/2021 Unless otherwise specified, test(s) performed at: [email or web address], [address] [place] [address] DIRECTOR OF STRATEGIC COMMUNICATIONS: Carl Paula M.D. For any questions, please [...] 11/02/2021 Unless otherwise specified, test(s) performed at: [email or web address], [address] [place] [address] DIRECTOR OF STRATEGIC COMMUNICATIONS: Carl Paula M.D. For any questions, please [...] 11/02/2021 Unless otherwise specified, test(s) performed at: [email or web address], [address] [place] [address] DIRECTOR OF STRATEGIC COMMUNICATIONS: Carl Paula M.D. For any questions, please call customer service at FREQUENCY:MONTHLY Resulting Agency Comment Specimen source: Blood Landon Calvert MD LAB BLOOD ORDERABLES Performing Organization Address City/State/ZIP Code Phon e Number APS SPECTRA [facility] (ABNORMAL) Spectrae Chemistry (11/01/2021) [facility] gist Method Time Signature BUN 64 (H) [...] 11/02/2021 Unless otherwise specified, test(s) performed at: [email or web address], [address] [place] [address] DIRECTOR OF STRATEGIC COMMUNICATIONS: Carl Paula M.D. For any questions, please call customer service at FREQUENCY:MONTHLY Resulting Agency Comment Specimen source: Serum Landon Calvert MD LAB BLOOD ORDERABLES Performing Organization Address City/State/ZIP Code Phon e Number APS SPECTRA [facility] documented in this encounter Visit Diagnoses Not on filedocumented in this encounter Care Teams Conservation Specialist Relationship Specialty Start Date End Date Fabian Arias MD PCP - General Family Medicine 09/04/[address] [place] [address] documented as of this encounter
--- OUTSIDE RECORDS SUMMARY | 2022-04-25 13:48 | XMS_ITS | Encounter Summary ---
:1940 Author Organization [facility] Address [address] [place] [address] Care Team Providers Name Role Phone Fabian Arias MD Primary Care Provider Encounter Details Date Type Department Care Team Description 11/01/2021 Treatment [facility] O f Landon Zarate MD [address] [place] [address] [place], [place] [phone] (Wo rk) Social History Tobacco Use Types Packs/Day Years Used Date Smoking Tobacco: Smoker, Current Cigarettes Started: 07/01/1976 Status Unknown Sex Assigned at Date Recorded Not on file documented as of this encounter Miscellaneous Notes Dialysis Note - Landon Calvert MD - 11/01/2021 8:57 AM CDT Date: November 01, 2021 Patient Name: Zamzam Garibay : 1940 Chart #: [id number] Sex: F This patient was personally seen [...] AM ) BP (sit): 150/67 AP(-) / SITE LEAD: n/a Pulse: 79 Chairside data as of [...] 1.0 mcg ORAL Every Treatment 06/05/2021 06/04/2022 CERTIFIED PHYSICAL THERAPIST ASSISTANT: Landon Calvert MD LOCATION: [phone] SCHEDULE: - 2nd Shift EDW: kg. DIALYZER: [...] She has access app[place] on 10/03 at [facility]. No concerns today. 09/06/21: She [...] This is Jaz's first day back from [facility]. She says she had no symptoms, but her son tested her when she was fatigued and had fever. She reports now having no symptoms at all. She says she feels great. Fluid gains have been better. 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 Can't remove [...] HD. 04/26/21: She was hospitalized briefly at [place] for dyspnea, no pneumonia but rather related to CHF. She saw cardiology in follow-up in clinic, lisinopril and metoprolol and lasix with UF on HD to dry weight recommended. She is not interested in home dialysis, discussed today. 04/12/21: Patient new to me. She followed with wellness manager in [facility], did not follow-up,crashed into dialysis in [...] mouth once a day 04/12/2021 RenaPlex-D (vit b,c-te-fbvq-selen-vit d3-e) 800 mcg-12.5 mg-2,000 unit tablet Take [...] Catheterand LUE AVF 11/01/21: I will call [facility] for update on whether they have received report from her AVF surgery and plan moving forward for access revision/creation [facility] September 2021, need report [facility] appt 08/2021: LUE AVF lower arm placed in [place], fistulagram / stenosis of vein proximal not [...] above goal. Intact PTH is at goal. Headwaitress will adjust binders and vitamin D per [...] on filedocumented in this encounter Care Teams Heart Doctor Relationship Specialty Start Date End Date Fabian Arias MD PCP - General Family Medicine 09/04/[address] [place] [address] documented as of this encounter
--- OUTSIDE RECORDS SUMMARY | 2022-04-25 13:48 | XMS_ITS | Encounter Summary ---
:1940 Author Organization [facility] Address [address] [place] [address] Care Team Providers Name Role Phone Fabian Arias MD Primary Care Provider Encounter Details Date Type Department Care Team Description 11/08/2021 Orders Only [facility] O f Landon Zarate MD [address] [place] [address] [place], [place] [phone] (Wo rk) Social History Tobacco Use [...] 11/10/2021 Unless otherwise specified, test(s) performed at: [facility], [address] [place] [address] REFERRAL CLERK: Carl Paula M.D. For any questions, please call customer service at FREQUENCY:OTHER Resulting Agency Comment Specimen source: Serum Landon Calvert MD LAB BLOOD ORDERABLES Performing Organization Address [facility] Phon e Number APS SPECTRA [facility] (ABNORMAL) [...] 11/09/2021 Unless otherwise specified, test(s) performed at: [facility], [address] [place] [address] REFERRAL CLERK: Carl Paula M.D. For any questions, please call customer service at FREQUENCY:OTHER Resulting Agency Comment Specimen source: Blood Landon Calvert MD LAB BLOOD ORDERABLES Performing Organization Address [facility] Phon e Number APS SPECTRA [facility] (ABNORMAL) Spectrae Chemistry (11/08/2021) P athologist Signature PTH 138 (H) 16 - 80 APS SPECTRA pg/mL [facility] Specimen (Source) Anatomical Collection Method Collection Time Re ceived Time Location / / Volume Laterality 11/08/2021 11/09/2021 11:3 1 AM CDT Narrative APS SPECTRA [facility] - 11/09/2021 Unless otherwise specified, test(s) performed at: [facility], [address] [place] [address] REFERRAL CLERK: Carl Paula M.D. For any questions, please call customer service at FREQUENCY:OTHER Resulting Agency Comment Specimen source: Plasma Landon Calvert MD LAB BLOOD ORDERABLES Performing Organization Address City/[facility] Phon e Number APS SPECTRA [facility] documented in this encounter Visit Diagnoses Not on filedocumented in this encounter Care Teams Machines Technician Relationship Specialty Start Date End Date Fabian Arias MD PCP - General Family Medicine 09/04/[address] [place] [address] documented as of this encounter
--- OUTSIDE RECORDS SUMMARY | 2022-04-25 13:48 | XMS_ITS | Encounter Summary ---
:1940 Author Organization [facility] Address [address] [place] [address] Care Team Providers Name Role Phone Fabian Arias MD Primary Care Provider Encounter Details Date Type Department Care Team Description 10/11/2021 Treatment [facility] Landon Zarate MD [address] [place] [address] [place], [place] [phone] (Wo rk) Social History Tobacco Use Types Packs/Day Years Used Date Smoking Tobacco: Smoker, Current Cigarettes Started: 07/01/1976 Status Unknown Sex Assigned at Date Recorded Not on file documented as of this encounter Miscellaneous Notes Dialysis Note - Landon Calvert MD - 10/11/2021 10:59 AM CDT Date: Oct 11, 2021 Patient Name: Zamzam Garibay : 1940 Chart #: [id number] Sex: F This patient was personally seen [...] AM ) BP (sit): 156/88 AP(-) / SUPERVISOR CONDITIONING YARD: 180/129 Pulse: 79 Chairside data as of [...] 1.0 mcg ORAL Every Treatment 06/05/2021 06/04/2022 SUPERVISOR INSULATION: Landon Calvert MD LOCATION: [phone] SCHEDULE: -- 2nd Shift EDW: kg. DIALYZER: HD DURATION: NEEDLE SIZE: ANTICOAG: BATH: QB: ml/min QD: ml/min Subjective Tolerating dialysis well. 10/11/21: Tolerating dialysis. Still has catheter, needs follow-up with vascular. Labs reviewed, stable. 09/20/21: She is doing well, Fluid gains improved, no SOB or edema. She has access appt on 10/03 at [facility] No concerns today. 09/06/21: She is 9 [...] This is Jaz's first day back from [facility]. She says she had no symptoms, but her son tested her when she was fatigued and had fever. She reports now having no symptoms at all. She says she feels great. Fluid gains have been better. 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 Can't remove [...] HD. 04/26/21: She was hospitalized briefly at [place] for dyspnea, no pneumonia but rather related to CHF. She saw cardiology in follow-up in clinic, lisinopril and metoprolol and lasix with UF on HD to dry weight recommended. She is not interested in home dialysis, discussed today. 04/12/21: Patient new to me. She followed with roller structural mill in [facility], did [...] mouth once a day 04/12/2021 RenaPlex-D (vit b,p-kd-zaxg-selen-vit d3-e) 800 mcg-12.5 mg-2,000 unit tablet Take 1 tablet by mouthonce a day trazodone 50 mg tablet Take 1 tablet by mouth every night as needed 04/12/2021 Allergy List Allergen Reaction Reaction Severity Onset Date [facility] Skin rash Medications reviewed and no changes [...] Assessment Type of access: Catheterand LUE AVF [facility] appt 08/2021: LUE AVF lower arm placed in [place], fistulagram / stenosis of vein proximal not [...] above goal. Intact PTH is at goal. Circular Saw Edge Fuser will adjust binders and vitamin D per [...] on filedocumented in this encounter Care Teams Digital Technician Relationship Specialty Start Date End Date Fabian Arias MD PCP - General Family Medicine 09/04/[address] [place] [address] documented as of this encounter
--- OUTSIDE RECORDS SUMMARY | 2022-04-25 13:48 | XMS_ITS | Encounter Summary ---
:1940 Author Organization [facility] Address [address] [place] [address] Care Team Providers Name Role Phone Fabian Arias MD Primary Care Provider Encounter Details Date Type Department Care Team Description 10/25/2021 Orders Only [facility] f Landon Zarate MD [phone] [place] [address] [place], [place] [phone] (Wo rk) Social History Tobacco Use Types Packs/Day Years Used Date Smoking Tobacco: Smoker, Current Cigarettes Started: 07/01/1976 Status Unknown Sex Assigned at Date Recorded Not on file documented as of this encounter Plan of Treatment Not on filedocumented as of this encounter Procedures Procedure Name Priority Date/Time Associated Diagnosis Comme nts HEMATOLOGY Routine 10/25/2021 Results for thi s procedure are in the resu lts section. documented in this encounter Results (ABNORMAL) HEMATOLOGY (10/25/2021) Analysis Performed At Patho logist Time Signature Hemoglobin 9.5 (L) 12.0 - [facility] 16.0 g/dL [facility] Hemoglobin x 3 28.5 (L) 36.0 - [facility] 48.0 % [facility] Specimen (Source) Anatomical Collection Method Collection Time Re ceived Time Location / / Volume Laterality 10/25/2021 10/26/2021 10:3 2 AM CDT Narrative [facility] - 10/26/2021 Unless otherwise specified, test(s) performed at: [facility], [address] [place] [address] LEAD SEWAGE PLANT OPERATOR: Carl Paula M.D. For any questions, please call customer service at FREQUENCY:OTHER Resulting Agency Comment Specimen source: Blood Landon Calvert MD LAB BLOOD ORDERABLES Performing Organization Address City/State/ZIP Code Phon e Number [facility] documented in this encounter Visit Diagnoses Not on filedocumented in this encounter Care Teams Pound Keeper Relationship Specialty Start Date End Date Fabian Arias MD PCP - General Family Medicine 09/04/[address] [place] [address] documented as of this encounter
--- OUTSIDE RECORDS SUMMARY | 2022-04-25 13:48 | XMS_ITS | Encounter Summary ---
:1940 Author Organization [facility] Address [address] [place] [address] Care Team Providers Name Role Phone Fabian Arias MD Primary Care Provider Encounter Details Date Type Department Care Team Description 08/23/2021 Orders Only [facility] f Landon Zarate MD [phone] [place] [address] [place], [place] [phone] (Wo rk) Social History Tobacco Use [...] / Volume Laterality 08/23/2021 08/24/2021 1:25 PM RESEARCH GROUP DIRECTOR Narrative [facility] - 08/24/2021 Unless otherwise specified, test(s) performed at: [facility], [address] [place] [address] CLEANING MAID: Carl Paula, M.D. For any questions, please call customer service at FREQUENCY:OTHER Resulting Agency Comment Specimen source: Blood Landon Calvert MD LAB BLOOD ORDERABLES Performing Organization Address City/State/ZIP Code Phon e Number [facility] documented in this encounter Visit Diagnoses Not on filedocumented in this encounter Care Teams Cargo Handler Relationship Specialty Start Date End Date Fabian Arias MD PCP - General Family Medicine 09/04/[address] [place] [address] documented as of this encounter
--- OUTSIDE RECORDS SUMMARY | 2022-04-25 13:48 | XMS_ITS | Encounter Summary ---
:1940 Author Organization [facility] Address [address] [place] [address] Care Team Providers Name Role Phone Fabian Arias MD Primary Care Provider Encounter Details Date Type Department Care Team Description 11/22/2021 Treatment [facility] Landon Zarate MD [address] [place] [address] [place], [place] [phone] (Wo rk) Social History Tobacco Use Types Packs/Day Years Used Date Smoking Tobacco: Smoker, Current Cigarettes Started: 07/01/1976 Status Unknown Sex Assigned at Date Recorded Not on file documented as of this encounter Miscellaneous Notes Dialysis Note - Landon Calvert MD - 11/22/2021 10:13 AM CDT Date: November 22, 2021 Patient Name: Zamzam Garibay : 1940 Chart #: [id number] Sex: F This patient was personally seen [...] AM ) BP (sit): n/a AP(-) / WAREHOUSE LEAD: 10 Pulse: n/a Chairside data as of [...] mcg IVP Every 2 weeks 11/22/2021 11/21/2022 SAP FUNCTIONAL ANALYST: Landon Calvert MD LOCATION: [facility] [phone] SCHEDULE: -- 2nd Shift ACCESS: EDW: kg. DIALYZER: HD DURATION: NEEDLE SIZE: ANTICOAG: BATH: QB: ml/min QD: ml/min Subjective Tolerating dialysis well. 11/22: Doing well, but fluid gains still high at times. She is getting out more, seeing her daughter and grandchild up in the [facility]. No symptoms of fluid overload, [...] [place] [facility] concerns today. 09/06/21: She is 9 [...] This is Jaz's first day back from [facility]. She says she had no symptoms, but her son tested her when she was fatigued and had fever. She reports now having no symptoms at all. She says she feels great. Fluid gains have been better. Only complaint is acid reflux with once weekly vomiting up acid in her mouth and she says she used to be on acid machine stuffer automatic but she hasn't had it sincebeing in [...] in the hospital overnight last month at [place], SOB resolved with fluid removal. Can't remove [...] HD. 04/26/21: She was hospitalized briefly at [place] for dyspnea, no pneumonia but rather related to CHF. She saw cardiology in follow-up in clinic, lisinopril and metoprolol and lasix with UF on HD to dry weight recommended. She is not interested in home dialysis, discussed today. 04/12/21: Patient new to me. She followed with acquisition cost estimator in [facility], did not follow-up,crashed into dialysis in [...] mouth once a day 04/12/2021 RenaPlex-D (vit b,o-ny-csxa-selen-vit d3-e) 800 mcg-12.5 mg-2,000 unit tablet Take [...] Catheterand LUE AVF 11/01/21: I will call [facility] for update on whether they have received report from her AVF surgery and plan moving forward for access revision/creation [facility] [place] 2021, need report [facility] app[place] 08/2021: LUE AVF lower arm placed [...] on filedocumented in this encounter Care Teams Cad Drafter Relationship Specialty Start Date End Date Fabian Arias MD PCP - General Family Medicine 09/04/20 [address] [place] [address] documented as of this encounter
--- OUTSIDE RECORDS SUMMARY | 2022-04-25 13:48 | XMS_ITS | Encounter Summary ---
:1940 Author Organization [facility] Address [address] [place] [address] Care Team Providers Name Role Phone Fabian Arias MD Primary Care Provider Encounter Details Date Type Department Care Team Description 08/09/2021 Orders Only [facility] f Landon Zarate MD [address] [place] [address] [place], [place] [phone] (Wo rk) Social History Tobacco Use [...] Volume Laterality 08/09/2021 08/10/2021 12:4 7 PM GUARD MANAGER Narrative [facility] - 08/10/2021 Unless otherwise specified, test(s) performed at: [facility], [address] [place] [address] MONITORING ANALYST: Carl Paula M.D. For any questions, please call customer service at FREQUENCY:OTHER Resulting Agency Comment Specimen source: Blood Landon Calvert MD LAB BLOOD ORDERABLES Performing Organization Address City/State/ZIP Code Phon e Number [facility] documented in this encounter Visit Diagnoses Not on filedocumented in this encounter Care Teams Cold Rolling Coordinator Relationship Specialty Start Date End Date Fabian Arias MD PCP - General Family Medicine 09/04/[address] [place] [address] documented as of this encounter
--- OUTSIDE RECORDS SUMMARY | 2022-04-25 13:48 | XMS_ITS | Encounter Summary ---
:1940 Author Organization [facility] Address [address] [place] [address] Care Team Providers Name Role Phone Fabian Arias MD Primary Care Provider Encounter Details Date Type Department Care Team Description 10/25/2021 Treatment [facility] f Landon Zarate MD [address] [place] [address] [place], [place] [phone] (Wo rk) Social History Tobacco Use Types Packs/Day Years Used Date Smoking Tobacco: Smoker, Current Cigarettes Started: 07/01/1976 Status Unknown Sex Assigned at Date Recorded Not on file documented as of this encounter Miscellaneous Notes Dialysis Note - Landon Calvert MD - 10/25/2021 9:19 AM CDT Date: Oct 25, 2021 Patient Name: Zamzam Garibay : 1940 Chart #: [id number] Sex: F This patient was personally seen [...] AM ) BP (sit): 152/81 AP(-) / VIDEO SYSTEM REPAIRER: 179/130 Pulse: 81 Chairside data as of [...] 1.0 mcg ORAL Every Treatment 06/05/2021 06/04/2022 LOG DRIVER: Landon Calvert MD LOCATION: [phone] SCHEDULE: -- 2nd Shift ACCESS: EDW: kg. [...] has access appt on 10/03 at [facility]. No concerns today. 09/06/21: She [...] This is Jaz's first day back from [facility]. She says she had no symptoms, but her son tested her when she was fatigued and had fever. She reports now having no symptoms at all. She says she feels great. Fluid gains have been better. 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 Can't remove [...] HD. 04/26/21: She was hospitalized briefly at [place] for dyspnea, no pneumonia but rather related to CHF. She saw cardiology in follow-up in clinic, lisinopril and metoprolol and lasix with UF on HD to dry weight recommended. She is not interested in home dialysis, discussed today. 04/12/21: Patient new to me. 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 Will need new access placement. She is being set up for vein mapping and surgeon consult Impression and Plan Stable dialysis, no changes today Need report from [facility], unclear result as patient says they want [...] on filedocumented in this encounter Care Teams Wood Finisher Relationship Specialty Start Date End Date Fabian Arias MD PCP - General Family Medicine 09/04/[address] [place] [address] documented as of this encounter
--- OUTSIDE RECORDS SUMMARY | 2022-04-25 13:48 | XMS_ITS | Encounter Summary ---
:1940 Author Organization [facility] Address [address] [place] [address] Care Team Providers Name Role Phone Fabian Arias MD Primary Care Provider Encounter Details Date Type Department Care Team Description 09/20/2021 Treatment [facility] f Landon Zarate MD [address] [place] [address] [place], [place] [phone] (Wo rk) Social History Tobacco Use Types Packs/Day Years Used Date Smoking Tobacco: Smoker, Current Cigarettes Started: 07/01/1976 Status Unknown Sex Assigned at Date Recorded Not on file documented as of this encounter Miscellaneous Notes Dialysis Note - Landon Calvert MD - 09/20/2021 10:31 AM CDT Date: Sep 20, 2021 Patient Name: Zamzam Garibay : 1940 Chart #: [id number] Sex: F This patient was personally seen [...] 1.0 mcg ORAL Every Treatment 06/05/2021 06/04/2022 MARSHMALLOW MACHINE WORKER: Landon Calvert MD LOCATION: [phone] SCHEDULE: -W- 2nd Shift ACCESS: EDW: kg. [...] This is Jaz's first day back from [facility]. She says she had no symptoms, but her son tested her when she was fatigued and had fever. She reports now having no symptoms at all. She says she feels great. Fluid gains have been better. 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 Can't remove [...] HD. 04/26/21: She was hospitalized briefly at [place] for dyspnea, no pneumonia but rather related to CHF. She saw cardiology in follow-up in clinic, lisinopril and metoprolol and lasix with UF on HD to dry weight recommended. She is not interested in home dialysis, discussed today. 04/12/21: Patient new to me. 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 Will need new access placement. She is being set up for vein mapping and surgeon consult Impression and Plan Stable dialysis, no changes today Congratulated on improved fluid gains. She stopped eating Nachos Follow phos control with change in diet and on binder [place] [facility] Landon Calvert MD [ Signed And locked electronically On 09/20/2021 at 10:33:08 AM ] Transcribed: Landon Calvert ( 09/20/2021 ) documented in this encounter Plan of Treatment Not on filedocumented as of this encounter Visit Diagnoses Not on filedocumented in this encounter Care Teams Right Of Way Man Relationship Specialty Start Date End Date Fabian Arias MD PCP - General Family Medicine 09/04/[address] [place] [address] documented as of this encounter
--- OUTSIDE RECORDS SUMMARY | 2022-04-25 13:48 | XMS_ITS | Encounter Summary ---
:1940 Author Organization [facility] Address [address] [place] [address] Care Team Providers Name Role Phone Fabian Arias MD Primary Care Provider Encounter Details Date Type Department Care Team Description 10/18/2021 Orders Only [facility] f Landon Zarate MD [address] [place] [address] [place], [place] [phone] (Wo rk) Social History Tobacco Use [...] 10/21/2021 Unless otherwise specified, test(s) performed at: [facility], [address] [place] [address] KICK PLATE INSTALLER: Carl Paula M.D. For any questions, please [...] 10/21/2021 Unless otherwise specified, test(s) performed at: [facility], [address] [place] [address] KICK PLATE INSTALLER: Carl Paula M.D. For any questions, please call customer service at FREQUENCY:OTHER Resulting Agency Comment Specimen source: Blood Landon Calvert MD LAB BLOOD ORDERABLES Performing Organization Address City/[facility] Phon e Number [facility] documented in this encounter Visit Diagnoses Not on filedocumented in this encounter Care Teams Water Rights Specialist Relationship Specialty Start Date End Date Fabian Arias MD PCP - General Family Medicine 09/04/[address] [place] [address] documented as of this encounter
--- OUTSIDE RECORDS SUMMARY | 2022-04-25 13:48 | XMS_ITS | Encounter Summary ---
:1940 Author Organization [facility] Address [address] [place] [address] Care Team Providers Name Role Phone Fabian Arias MD Primary Care Provider Encounter Details Date Type Department Care Team Description 08/16/2021 Orders Only [facility] f Landon Zarate MD [address] [place] [address] [place], [place] [phone] (Wo rk) Social History Tobacco Use [...] / Volume Laterality 08/16/2021 08/17/2021 6:02 PM OUTSOLE SPLICER Narrative [facility] - 08/17/2021 Unless otherwise specified, test(s) performed at: [facility], [address] [place] [address] CONCERT PIANIST: Carl Paula, M.D. For any questions, please call customer service at FREQUENCY:OTHER Resulting Agency Comment Specimen source: Blood Landon Calvert MD LAB BLOOD ORDERABLES Performing Organization Address City/State/ZIP Code Phon e Number [facility] documented in this encounter Visit Diagnoses Not on filedocumented in this encounter Care Teams Burlesque Dancer Relationship Specialty Start Date End Date Fabian Arias MD PCP - General Family Medicine 09/04/[address] [place] [address] documented as of this encounter
--- OUTSIDE RECORDS SUMMARY | 2022-04-25 13:48 | XMS_ITS | Encounter Summary ---
:1940 Author Organization [facility] Address [address] [place] [address] Care Team Providers Name Role Phone Fabian Arias MD Primary Care Provider Encounter Details Date Type Department Care Team Description 11/29/2021 Orders [facility] f Landon Zarate MD [address] [place] [address] [place], [place] [phone] (Wo rk) Social History Tobacco Use [...] MD LAB BLOOD ORDERABLES Performing Organization Address City/[facility]/ZIP Code Phon e Number [facility] POST CHEMISTRY (11/29/2021) athologist Signature BUN Post 11 6 - 19 [facility] Dialysis mg/dL [facility] Specimen (Source) Anatomical Collection Method Collection Time Re ceived Time Location / / Volume Laterality 11/29/2021 11/30/2021 10:2 2 PM CDT Narrative [facility] - 12/01/2021 Unless otherwise specified, test(s) performed at: [facility], [address] [place] [address] BEVELER: Carl Paula M.D. For any questions, please call customer service at FREQUENCY:MONTHLY Resulting Agency Comment Specimen source: Plasma Landon Calvert MD LAB BLOOD ORDERABLES Performing Organization Address City/[facility]/ZIP Code Phon e Number APS SPECTRA [facility] [...] 12/02/2021 Unless otherwise specified, test(s) performed at: [facility], [address] [place] [address] BEVELER: Carl Paula M.D. For any questions, please call customer service at FREQUENCY:MONTHLY Resulting Agency Comment Specimen source: Serum Landon Calvert MD LAB BLOOD ORDERABLES Performing Organization Address City/State/ZIP Code Phon e Number [facility]PS [facility]RA [facility] (ABNORMAL) Spectrae Chemistry (11/29/2021) [facility] gist Method Time Signature BUN 56 (H) [...] 12/01/2021 Unless otherwise specified, test(s) performed at: [facility], [address] [place] [address] BEVELER: Carl Paula M.D. For any questions, please [...] 12/01/2021 Unless otherwise specified, test(s) performed at: [facility], [address] [place] [address] BEVELER: Carl Paula M.D. For any questions, please call customer service at FREQUENCY:MONTHLY Resulting Agency Comment Specimen source: Blood Landon Calvert MD LAB BLOOD ORDERABLES Performing Organization Address City/State/ZIP Code Phon e Number [facility] documented in this encounter Visit Diagnoses Not on filedocumented in this encounter Care Teams Dental Ceramist Assistant Relationship Specialty Start Date End Date Fabian Arias MD PCP - General Family Medicine 09/04/[address] [place] [address] documented as of this encounter
--- OUTSIDE RECORDS SUMMARY | 2022-04-25 13:48 | XMS_ITS | Encounter Summary ---
:1940 Author Organization [facility] Address [address] [place] [address] Care Team Providers Name Role Phone Fabian Arias MD Primary Care Provider Encounter Details Date Type Department Care Team Description 10/11/2021 [facility] f Landon Zarate MD [address] [place] [address] [place], [place] [phone] (Wo rk) Social History Tobacco Use [...] 10/12/2021 Unless otherwise specified, test(s) performed at: [facility], [address] [place] [address] BRUSH FILLER HAND: Carl Paula M.D. For any questions, please call customer service at FREQUENCY:OTHER Resulting Agency Comment Specimen source: Blood Landon Calvert MD LAB BLOOD ORDERABLES Performing Organization Address City/State/ZIP Code Phon e Number [facility] documented in this encounter Visit Diagnoses Not on filedocumented in this encounter Care Teams Commercial Illustrator Relationship Specialty Start Date End Date Fabian Arias MD PCP - General Family Medicine 09/04/[address] [place] [address] documented as of this encounter
--- OUTSIDE RECORDS SUMMARY | 2022-04-25 13:48 | XMS_ITS | Encounter Summary ---
:1940 Author Organization [facility] Address [address] [place] [address] Care Team Providers Name Role Phone Fabian Arias MD Primary Care Provider Encounter Details Date Type Department Care Team Description 09/06/2021 [facility] f Landon Zarate MD [address] [place] [address] [place], [place] [phone] (Wo rk) Social History Tobacco Use [...] / Volume Laterality 09/06/2021 09/07/2021 9:53 AM EARLY INTERVENTION SPECIALIST Narrative [facility] - 09/07/2021 Unless otherwise specified, test(s) performed at: [facility], [address] [place] [address] ENVIRONMENTAL SCIENCE INSTRUCTOR: Carl Paula, M.D. For any questions, please call customer service at FREQUENCY:OTHER Resulting Agency Comment Specimen source: Blood Landon Calvert MD LAB BLOOD ORDERABLES Performing Organization Address City/State/ZIP Code Phon e Number [facility] documented in this encounter Visit Diagnoses Not on filedocumented in this encounter Care Teams Fruit Culler Relationship Specialty Start Date End Date Fabian Arias MD PCP - General Family Medicine 09/04/[address] [place] [address] documented as of this encounter
--- OUTSIDE RECORDS SUMMARY | 2022-04-25 13:48 | XMS_ITS | Encounter Summary ---
:1940 Author Organization [facility] Address [address] [place] [address] Care Team Providers Name Role Phone Fabian Arias MD Primary Care Provider Encounter Details Date Type Department Care Team Description 11/22/2021 [facility] f Landon Zarate MD [address] [place] [address] [place], [place] [phone] (Wo rk) Social History Tobacco Use [...] 11/23/2021 Unless otherwise specified, test(s) performed at: [facility], [address] [place] [address] MEDICAL APPOINTMENT CLERK: Carl Paula M.D. For any questions, please call customer service at FREQUENCY:OTHER Resulting Agency Comment Specimen source: Blood Landon Calvert MD LAB BLOOD ORDERABLES Performing Organization Address City/State/ZIP Code Phon e Number [facility] documented in this encounter Visit Diagnoses Not on filedocumented in this encounter Care Teams Group President Relationship Specialty Start Date End Date Fabian Arias MD PCP - General Family Medicine 09/04/[address] [place] [address] documented as of this encounter
--- OUTSIDE RECORDS SUMMARY | 2022-04-25 13:48 | XMS_ITS | Encounter Summary ---
:1940 Author Organization [facility] Address [address] [place] [address] Care Team Providers Name Role Phone Fabian rAias MD Primary Care Provider Encounter Details Date Type Department Care Team Description 07/19/2021 [facility] f Landon Zarate MD [address] [place] [address] [place], [place] [phone] (Wo rk) Social History Tobacco Use [...] Volume Laterality 07/19/2021 07/21/2021 11:4 0 AM GLASS TECHNOLOGIST Narrative [facility] - 07/21/2021 Unless otherwise specified, test(s) performed at: [facility], [address] [place] [address] ARTISTS' MODEL: Carl Paula M.D. For any questions, please call customer service at FREQUENCY:OTHER Resulting Agency Comment Specimen source: Blood Landon Calvert MD LAB BLOOD ORDERABLES Performing Organization Address City/State/ZIP Code Phon e Number [facility] documented in this encounter Visit Diagnoses Not on filedocumented in this encounter Care Teams Field Property Loss Specialist Relationship Specialty Start Date End Date Fabian Arias MD PCP - General Family Medicine 09/04/[address] [place] [address] documented as of this encounter
--- OUTSIDE RECORDS SUMMARY | 2022-04-25 13:48 | XMS_ITS | Encounter Summary ---
:1940 Author Organization [facility] Address [address] [place] [address] Care Team Providers Name Role Phone Fabian Arias MD Primary Care Provider Encounter Details Date Type Department Care Team Description 09/20/2021 [facility] f Landon Zarate MD [address] [place] [address] [place], [place] [phone] (Wo rk) Social History Tobacco Use [...] 09/21/2021 Unless otherwise specified, test(s) performed at: [facility], [address] [place] [address] NEEDLE LOOM TENDER: Carl Paula M.D. For any questions, please call customer service at FREQUENCY:OTHER Resulting Agency Comment Specimen source: Blood Landon Calvert MD LAB BLOOD ORDERABLES Performing Organization Address City/State/ZIP Code Phon e Number [facility] documented in this encounter Visit Diagnoses Not on filedocumented in this encounter Care Teams Press Clipper Relationship Specialty Start Date End Date Fabian Arias MD PCP - General Family Medicine 09/04/[address] [place] [address] documented as of this encounter
--- OUTSIDE RECORDS SUMMARY | 2022-04-25 13:48 | XMS_ITS | Encounter Summary ---
:1940 Author Organization [facility] Address [address] [place] [address] Care Team Providers Name Role Phone Fabian Arias MD Primary Care Provider Encounter Details Date Type Department Care Team Description 09/27/2021 [facility] f Landon Zarate MD [address] [place] [address] [place], [place] [phone] (Wo rk) Social History Tobacco Use Types Packs/Day Years Used Date Smoking Tobacco: Smoker, Current Cigarettes Started: 07/01/1976 Status Unknown Sex Assigned at Date Recorded Not on file documented as of this encounter Plan of Treatment Not on filedocumented as of this encounter Procedures Procedure Name Priority Date/Time Associated Diagnosis Comme nts HEMATOLOGY Routine 09/27/2021 Results for thi s procedure are in the resu lts section. documented in this encounter Results (ABNORMAL) HEMATOLOGY (09/27/2021) Analysis Performed At Patho logist Time Signature Hemoglobin 9.6 (L) 12.0 - [facility] 16.0 g/dL [facility] Hemoglobin x 3 28.8 (L) 36.0 - [facility] 48.0 % [facility] Specimen (Source) Anatomical Collection Method Collection Time Re ceived Time Location / / Volume Laterality 09/27/2021 09/28/2021 12:5 0 PM CDT Narrative [facility] - 09/28/2021 Unless otherwise specified, test(s) performed at: [facility], [address] [place] [address] SALVAGE LABORER: Carl Paula M.D. For any questions, please call customer service at FREQUENCY:OTHER Resulting Agency Comment Specimen source: Blood Landon Calvert MD LAB BLOOD ORDERABLES Performing Organization Address City/State/ZIP Code Phon e Number [facility] documented in this encounter Visit Diagnoses Not on filedocumented in this encounter Care Teams Stone Banker Relationship Specialty Start Date End Date Fabian Arias MD PCP - General Family Medicine 09/04/[address] [place] [address] documented as of this encounter
--- OUTSIDE RECORDS SUMMARY | 2022-04-25 13:48 | XMS_ITS | Encounter Summary ---
:1940 Author Organization [facility] Address [address] [place] [address] Care Team Providers Name Role Phone Fabian Arias MD Primary Care Provider Encounter Details Date Type Department Care Team Description 07/26/2021 Treatment [facility] f Landon Zarate MD [address] [place] [address] [place], [place] [phone] (Wo rk) Social History Tobacco Use Types Packs/Day Years Used Date Smoking Tobacco: Smoker, Current Cigarettes Started: 07/01/1976 Status Unknown Sex Assigned at Date Recorded Not on file documented as of this encounter Miscellaneous Notes Dialysis Note - Landon Calvert MD - 07/26/2021 10:23 AM CST Date: Jul 26, 2021 Patient Name: Zamzam Garibay : 1940 Chart #: [id number] Sex: F This patient was personally seen [...] 1.0 mcg ORAL Every Treatment 06/05/2021 06/04/2022 TERRA COTTA MOLD MAKER: Landon Calvert MD LOCATION: [phone] SCHEDULE: -- 2nd Shift ACCESS: EDW: kg. [...] This is Jaz's first day back from [facility]. She says she had no symptoms, but her son tested her when she was fatigued and had fever. She reports now having no symptoms at all. She says she feels great. Fluid gains have been better. 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 Can't remove [...] HD. 04/26/21: She was hospitalized briefly at [facility] for dyspnea, no pneumonia but rather related to CHF. She saw cardiology in follow-up in clinic, lisinopril and metoprolol and lasix with UF on HD to dry weight recommended. She is not interested in home dialysis, discussed today. 04/12/21: Patient new to me. She followed with punching machine operator in [facility], did not follow-up,crashed into dialysis [...] mouth once a day 04/12/2021 RenaPlex-D (vit b,k-es-tugv-selen-vit d3-e) 800 mcg-12.5 mg-2,000 unit tablet Take [...] tributaries. Have had difficulty getting her into [facility], now has procedure scheduled at [facility] but delayed until August due to [...] on filedocumented in this encounter Care Teams Equine Internship Relationship Specialty Start Date End Date Fabian Arias MD PCP - General Family Medicine 09/04/[address] [place] [address] documented as of this encounter
--- OUTSIDE RECORDS SUMMARY | 2022-04-25 13:48 | XMS_ITS | Encounter Summary ---
:1940 Author Organization [facility] Address [address] [place] [address] Care Team Providers Name Role Phone Fabian Arias MD Primary Care Provider Encounter Details Date Type Department Care Team Description 07/26/2021 [facility] Only [facility] O f Landon Zarate MD [address] [place] [address] [place], [place] [phone] (Wo rk) Social History Tobacco Use Types Packs/Day Years Used Date Smoking Tobacco: Smoker, Current Cigarettes Started: 07/01/1976 Status Unknown Sex Assigned at Date Recorded Not on file documented as of this encounter Plan of Treatment Not on filedocumented as of this encounter Procedures Procedure Name Priority Date/Time Associated Diagnosis Comme nts HEMATOLOGY Routine 07/26/2021 Results for thi s procedure are in the resu lts section. documented in this encounter Results (ABNORMAL) HEMATOLOGY (07/26/2021) Analysis Performed At Patho logist Time Signature Hemoglobin 9.2 (L) 12.0 - [facility] 16.0 g/dL [facility] Hemoglobin x 3 27.6 (L) 36.0 - [facility] 48.0 % [facility] Specimen (Source) Anatomical Collection Method Collection Time Re ceived Time Location / / Volume Laterality 07/26/2021 07/27/2021 10:0 6 AM SENIOR ECONOMIST Narrative [facility] - 07/27/2021 Unless otherwise specified, test(s) performed at: [facility], [address] [place] [address] STEEL UNLOADER: Carl Paula M.D. For any questions, please call customer service at FREQUENCY:OTHER Resulting Agency Comment Specimen source: Blood Landon Calvert MD LAB BLOOD ORDERABLES Performing Organization Address City/State/ZIP Code Phon e Number [facility] documented in this encounter Visit Diagnoses Not on filedocumented in this encounter Care Teams Oven Stripper Relationship Specialty Start Date End Date Fabian Arias MD PCP - General Family Medicine 09/04/[address] [place] [address] documented as of this encounter
--- OUTSIDE RECORDS SUMMARY | 2022-04-25 13:48 | XMS_ITS | Encounter Summary ---
:1940 Author Organization [facility] Address [address] [place] [address] Care Team Providers Name Role Phone Fabian Arias MD Primary Care Provider Encounter Details Date Type Department Care Team Description 08/16/2021 Treatment [facility] f Landon Zarate MD [address] [place] [address] [place], [place] [phone] (Wo rk) Social History Tobacco Use Types Packs/Day Years Used Date Smoking Tobacco: Smoker, Current Cigarettes Started: 07/01/1976 Status Unknown Sex Assigned at Date Recorded Not on file documented as of this encounter Miscellaneous Notes Dialysis Note - Landon Calvert MD - 08/16/2021 10:12 AM CST Date: Aug 16, 2021 Patient Name: Zamzam Garibay : 1940 Chart #: [id number] Sex: F This patient was personally seen [...] AM ) BP (sit): 169/86 AP(-) / UAT TESTER: 218/151 Pulse: 80 Chairside data as of [...] 03:30 Actual Treatment Time 03:07 03:32 03:31 ENDOSCOPY SUPPORT SPECIALIST: Landon Calvert MD LOCATION: [phone] SCHEDULE: -W- 2nd Shift ACCESS: EDW: kg. [...] This is Jaz's first day back from [facility] unit. She says she had no symptoms, but her son tested her when she was fatigued and had fever. She reports now having no symptoms at all. She says she feels great. Fluid gains have been better. 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 Can't remove [...] HD. 04/26/21: She was hospitalized briefly at [facility] for dyspnea, no pneumonia but rather related to CHF. She saw cardiology in follow-up in clinic, lisinopril and metoprolol and lasix with UF on HD to dry weight recommended. She is not interested in home dialysis, discussed today. 04/12/21: Patient new to me. She followed with canvas worker in [facility], did not follow-up,crashed into dialysis [...] mouth once a day 04/12/2021 RenaPlex-D (vit b,q-hg-bgwv-selen-vit d3-e) 800 mcg-12.5 mg-2,000 unit tablet Take [...] tributaries. Have had difficulty getting her into [facility], now has procedure scheduled at [facility] but delayed until August due to COVID infection. Has appt at [facility] 08/22/21 Impression and Plan Increase EDW to 46 Kg Lower IDWG discussed in detail, may need extra run for UF on occasion to avoid pulmonary edema Disucssed renal diet and phos binder, emphasized this today with phos jump to 9.4! She has access appt next week, got postponed again but procedure planned at [facility] next week on Saturday Landon Calvert MD [ Signed And locked electronically On 08/16/2021 at 10:17:00 AM ] Transcribed: Landon Calvert ( 08/16/2021 ) documented in this encounter Plan of Treatment Not on filedocumented as of this encounter Visit Diagnoses Not on filedocumented in this encounter Care Teams Porcelain Turner Relationship Specialty Start Date End Date Fabian Arias MD PCP - General Family Medicine 09/04/[address] [place] [address] documented as of this encounter
--- OUTSIDE RECORDS SUMMARY | 2022-04-25 13:48 | XMS_ITS | Encounter Summary ---
:1940 Author Organization [facility] Address [address] [place] [address] Care Team Providers Name Role Phone Fabian Arias MD Primary Care Provider Encounter Details Date Type Department Care Team Description 08/02/2021 Orders Only [facility] O f Landon Zarate MD [address] [place] [address] [place], [place] [phone] (Wo rk) Social History Tobacco Use [...] / Volume Laterality 08/02/2021 08/03/2021 3:01 PM FOUR SLIDE OPERATOR Narrative [facility] - 08/05/2021 Unless otherwise specified, test(s) performed at: [facility], [address] [place] [address] EQUIPMENT INSPECTOR: Carl Paula M.D. For any questions, please call customer service at FREQUENCY:MONTHLY Resulting Agency Comment Specimen source: Serum Landon Calvert MD LAB BLOOD ORDERABLES Performing Organization Address City/State/ZIP Code Phon e Number [facility] (ABNORMAL) [facility] Chemistry (08/02/2021) [facility] Method Time Signature BUN 80 (H) 6 [...] / Volume Laterality 08/02/2021 08/03/2021 3:01 PM FOUR SLIDE OPERATOR Narrative [facility] - 08/03/2021 Unless otherwise specified, test(s) performed at: [facility], [address] [place] [address] EQUIPMENT INSPECTOR: Carl Paula M.D. For any questions, please [...] / Volume Laterality 08/02/2021 08/03/2021 1:58 PM FOUR SLIDE OPERATOR Narrative [facility] - 08/03/2021 Unless otherwise specified, test(s) performed at: [facility], [address] [place] [address] EQUIPMENT INSPECTOR: Carl Paula M.D. For any questions, please call customer service at FREQUENCY:MONTHLY Resulting Agency Comment Specimen source: Blood Landon Calvert MD LAB BLOOD ORDERABLES Performing Organization Address City/State/ZIP Code Phon e Number [facility] documented in this encounter Visit Diagnoses Not on filedocumented in this encounter Care Teams Agricultural Education Teacher Relationship Specialty Start Date End Date Fabian Arias MD PCP - General Family Medicine 09/04/[address] [place] [address] documented as of this encounter
--- OUTSIDE RECORDS SUMMARY | 2022-04-25 13:48 | XMS_ITS | Encounter Summary ---
:1940 Author Organization [facility] Address [address] [place] [address] Care Team Providers Name Role Phone Fabian Arias MD Primary Care Provider Encounter Details Date Type Department Care Team Description 11/06/2021 Orders Only [facility] O f Landon Zarate MD [address] [place] [address] [place], [place] [phone] (Wo rk) Social History Tobacco Use [...] 11/07/2021 Unless otherwise specified, test(s) performed at: [facility], [address] [place] [address] OPTICS MANUFACTURING TECHNICIAN: Carl Paula M.D. For any questions, please call customer service at FREQUENCY:OTHER Resulting Agency Comment Specimen source: Serum Landon Calvert MD LAB BLOOD ORDERABLES Performing Organization Address City/State/ZIP Code Phon e Number [facility] documented in this encounter Visit Diagnoses Not on filedocumented in this encounter Care Teams Stock Mover Relationship Specialty Start Date End Date Fabian Arias MD PCP - General Family Medicine 09/04/[address] [place] [address] documented as of this encounter
--- OUTSIDE RECORDS SUMMARY | 2022-04-25 13:48 | XMS_ITS | Encounter Summary ---
:1940 Author Organization [facility] Address [address] [place] [address] Care Team Providers Name Role Phone Fabian Arias MD Primary Care Provider Encounter Details Date Type Department Care Team Description 11/15/2021 Orders Only [facility] O f Landon Zarate MD [address] [place] [address] [place], [place] [phone] (Wo rk) Social History Tobacco Use [...] 11/16/2021 Unless otherwise specified, test(s) performed at: [facility], [address] [place] [address] BOTTLING EQUIPMENT SALES REPRESENTATIVE: Carl Paula M.D. For any questions, please call customer service at FREQUENCY:OTHER Resulting Agency Comment Specimen source: Blood Landon Calvert MD LAB BLOOD ORDERABLES Performing Organization Address City/State/ZIP Code Phon e Number [facility] documented in this encounter Visit Diagnoses Not on filedocumented in this encounter Care Teams Schedule Analyst Relationship Specialty Start Date End Date Fabian Arias MD PCP - General Family Medicine 09/04/[address] [place] [address] documented as of this encounter
--- OUTSIDE RECORDS SUMMARY | 2022-04-25 13:48 | XMS_ITS | Encounter Summary ---
:1940 Author Organization [facility] Address [address] [place] [address] Care Team Providers Name Role Phone Fabian Arias MD Primary Care Provider Encounter Details Date Type Department Care Team Description 09/06/2021 Treatment [facility] Landon Zarate MD [address] [place] [address] [place], [place] [phone] (Wo rk) Social History Tobacco Use Types Packs/Day Years Used Date Smoking Tobacco: Smoker, Current Cigarettes Started: 07/01/1976 Status Unknown Sex Assigned at Date Recorded Not on file documented as of this encounter Miscellaneous Notes Dialysis Note - Landon Calvert MD - 09/06/2021 10:07 AM CST Date: Sep 06, 2021 Patient Name: Zamzam Garibay : 1940 Chart #: [id number] Sex: F This patient was personally seen [...] AM ) BP (sit): 162/85 AP(-) / PIG IRON LOADER: 181/122 Pulse: 86 Chairside data as of [...] 03:30 Actual Treatment Time 03:30 03:31 03:33 VIRTUAL CUSTOMER ASSISTANT: Landon Calvert MD LOCATION: [place] [phone] SCHEDULE: -W- 2nd Shift EDW: kg. DIALYZER: [...] This is Jaz's first day back from [facility] unit. She says she had no symptoms, but her son tested her when she was fatigued and had fever. She reports now having no symptoms at all. She says she feels great. Fluid gains have been better. 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 Can't remove [...] HD. 04/26/21: She was hospitalized briefly at [place] for dyspnea, no pneumonia but rather related to CHF. She saw cardiology in follow-up in clinic, lisinopril and metoprolol and lasix with UF on HD to dry weight recommended. She is not interested in home dialysis, discussed today. 04/12/21: Patient new to me. She followed with nat instructor in [facility], did not follow-up,crashed [...] mouth once a day 04/12/2021 RenaPlex-D (vit b,o-cz-povb-selen-vit d3-e) 800 mcg-12.5 mg-2,000 unit tablet Take [...] Assessment Type of access: Catheterand LUE AVF [facility] appt 08/2021: LUE AVF lower arm placed in [place], fistulagram / stenosis of vein proximal not [...] above goal. Intact PTH is at goal. Sales And Production Manager will adjust binders and vitamin D per [...] to binders, needs ongoing counseling with RD [facility] for vein mapping and surgeon consult as above Landon Calvert MD [ Signed And locked electronically On 09/06/2021 at 10:12:20 AM ] Transcribed: Landon Calvert ( 09/06/2021 ) documented in this encounter Plan of Treatment Not on filedocumented as of this encounter Visit Diagnoses Not on filedocumented in this encounter Care Teams Strategy Execution Consultant Relationship Specialty Start Date End Date Fabian Arias MD PCP - General Family Medicine 09/04/[address] [place] [phone] documented as of this encounter
--- OUTSIDE RECORDS SUMMARY | 2022-04-25 13:48 | XMS_ITS | Encounter Summary ---
:1940 Author Organization [facility] Address [address] [place] [address] Care Team Providers Name Role Phone Fabian Arias MD Primary Care Provider Encounter Details Date Type Department Care Team Description 08/07/2021 Orders Only [facility] f Landon Zarate MD [address] [place] [address] [place], [place] [phone] (Wo rk) Social History Tobacco Use [...] Provider LAB BLOOD ORDERABLES Performing Organization Address City/[facility] Phon e Number CELIA HD KINETICS (08/07/2021) P athologist Signature % Urea 80 65 - 80 % APS SPECTRA Reduction [facility] Specimen (Source) Anatomical Collection Method Collection Time Re ceived Time Location / / Volume Laterality 08/07/2021 08/08/2021 7:17 PM ASSISTANT OPERATIONS MANAGER Narrative APS SPECTRA [facility] - 08/09/2021 Unless otherwise specified, test(s) performed at: [facility], [address] [place] [address] NET SOFTWARE DEVELOPER: Carl Paula M.D. For any questions, please call customer service at FREQUENCY:OTHER Resulting Agency Comment Specimen source: Serum Landon Calvert MD LAB BLOOD ORDERABLES Performing Organization Address City/[facility] Phon e Number APS SPECTRA [facility] (ABNORMAL) Spectrae Chemistry (08/07/2021) P athologist Signature BUN 93 (H) 6 - 19 APS SPECTRA mg/dL [facility] Specimen (Source) Anatomical Collection Method Collection Time Re ceived Time Location / / Volume Laterality 08/07/2021 08/08/2021 7:17 PM ASSISTANT OPERATIONS MANAGER Narrative APS SPECTRA [facility] - 08/09/2021 Unless otherwise specified, test(s) performed at: [facility], [address] [place] [address] NET SOFTWARE DEVELOPER: aCrl Paula M.D. For any questions, please call customer service at FREQUENCY:OTHER Resulting Agency Comment Specimen source: Serum Landon Calvert MD LAB BLOOD ORDERABLES Performing Organization Address City/[facility] Phon e Number APS SPECTRA [facility] POST CHEMISTRY (08/07/2021) P athologist Signature BUN Post 19 6 - 19 APS SPECTRA Dialysis mg/dL [facility] Specimen (Source) Anatomical Collection Method Collection Time Re ceived Time Location / / Volume Laterality 08/07/2021 08/08/2021 6:10 PM ASSISTANT OPERATIONS MANAGER Narrative APS SPECTRA [facility] - 08/09/2021 Unless otherwise specified, test(s) performed at: [facility], [address] [place] [address] NET SOFTWARE DEVELOPER: Carl Paula M.D. For any questions, please call customer service at FREQUENCY:OTHER Resulting Agency Comment Specimen source: Plasma Landon Calvert MD LAB BLOOD ORDERABLES Performing Organization Address City/State/ZIP Code Phon e Number APS SPECTRA [facility] documented in this encounter Visit Diagnoses Not on filedocumented in this encounter Care Teams Pensions Retirement Plan Specialist Relationship Specialty Start Date End Date Fabian Arias MD PCP - General Family Medicine 09/04/[address] [place] [address] documented as of this encounter
--- OUTSIDE RECORDS SUMMARY | 2022-04-25 13:48 | XMS_ITS | Encounter Summary ---
:1940 Author Organization [facility] Address [address] [place] [address] Care Team Providers Name Role Phone Fbaian Arias MD Primary Care Provider Encounter Details Date Type Department Care Team Description 08/02/2021 Treatment [facility] Landon Zarate MD [address] [place] [address] [place], [place] [phone] (Wo rk) Social History Tobacco Use Types Packs/Day Years Used Date Smoking Tobacco: Smoker, Current Cigarettes Started: 07/01/1976 Status Unknown Sex Assigned at Date Recorded Not on file documented as of this encounter Miscellaneous Notes Dialysis Note - Landon Calvert MD - 08/02/2021 8:53 AM CST Date: Aug 02, 2021 Patient Name: Zamzam Garibay : 1940 Chart #: [id number] Sex: F This patient was personally seen [...] AM ) BP (sit): 126/67 AP(-) / MEDICAL AFFAIRS SPECIALIST: 237/132 Pulse: 85 Chairside data as of [...] 03:30 Actual Treatment Time 03:29 03:14 03:26 LABORER TIN CAN: Landon Calvert MD LOCATION: [place] [phone] SCHEDULE: -W- 2nd Shift EDW: kg. DIALYZER: [...] is Jaz's first day back from [facility]. She says she had no symptoms, but her son tested her when she was fatigued and had fever. She reports now having no symptoms at all. She says she feels great. Fluid gains have been better. 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 Can't remove [...] HD. 04/26/21: She was hospitalized briefly at [place] for dyspnea, no pneumonia but rather related to CHF. She saw cardiology in follow-up in clinic, lisinopril and metoprolol and lasix with UF on HD to dry weight recommended. She is not interested in home dialysis, discussed today. 04/12/21: Patient new to me. She followed with embedded systems engineer in [facility], did not follow-up,crashed into dialysis in [...] mouth once a day 04/12/2021 RenaPlex-D (vit b,a-ex-nasx-selen-vit d3-e) 800 mcg-12.5 mg-2,000 unit tablet Take [...] [facility], now has procedure scheduled at [facility] but delayed until August due to COVID infection. Has appt at [place] 08/08/21 Anemia Assessment HEMOGLOBIN (G/DL) IN BLOOD [...] above goal. Intact PTH is at goal. 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 If they cannot do itthere, will do it [place] [facility] Monthly labs drawn today Landon Calvert MD [ Signed And locked electronically On 08/02/2021 at 08:57:22 AM ] Transcribed: Landon Calvert ( 08/02/2021 ) documented in this encounter Plan of Treatment Not on filedocumented as of this encounter Visit Diagnoses Not on filedocumented in this encounter Care Teams Mechanical Operator Relationship Specialty Start Date End Date Fabian Arias MD PCP - General Family Medicine 09/04/[address] [place] [address] documented as of this encounter
--- OUTSIDE RECORDS SUMMARY | 2022-04-25 13:48 | XMS_ITS | Encounter Summary ---
:1940 Author Organization [facility] Address [address] [place] [address] Care Team Providers Name Role Phone Fabian Arias MD Primary Care Provider Encounter Details Date Type Department Care Team Description 08/30/2021 Orders Only [facility] f Landon Zarate MD [address] [place] [address] [place], [place] [phone] (Wo rk) Social History Tobacco Use [...] / Volume Laterality 08/30/2021 08/31/2021 2:10 PM C D REACTOR OPERATOR Narrative APS SPECTRA [facility] - 09/01/2021 Unless otherwise specified, test(s) performed at: [facility], [address] [place] [address] PEER HEALTH PROMOTER: Carl Paula M.D. For any questions, please [...] Volume Laterality 08/30/2021 08/31/2021 10:5 1 AM C D REACTOR OPERATOR Narrative APS SPECTRA [facility] - 09/01/2021 Unless otherwise specified, test(s) performed at: [facility], [address] [place] [address] PEER HEALTH PROMOTER: Carl Paula M.D. For any questions, please [...] Volume Laterality 08/30/2021 08/31/2021 10:5 1 AM C D REACTOR OPERATOR Narrative APS SPECTRA [facility] - 09/01/2021 Unless otherwise specified, test(s) performed at: [facility], [address] [place] [address] PEER HEALTH PROMOTER: Carl Paula M.D. For any questions, please call customer service at FREQUENCY:MONTHLY Resulting Agency Comment Specimen source: Serum Landon Calvert MD LAB BLOOD ORDERABLES Performing Organization Address City/[facility] Code Phon e Number APS SPECTRA [facility] POST CHEMISTRY (08/30/2021) P athologist Signature BUN Post 10 6 - 19 APS SPECTRA Dialysis mg/dL [facility] Specimen (Source) Anatomical Collection Method Collection Time Re ceived Time Location / / Volume Laterality 08/30/2021 08/31/2021 2:06 PM C D REACTOR OPERATOR Narrative APS SPECTRA [facility] - 08/31/2021 Unless otherwise specified, test(s) performed at: [facility], [address] [place] [address] PEER HEALTH PROMOTER: Carl Paula M.D. For any questions, please [...] / Volume Laterality 08/30/2021 08/31/2021 2:20 PM C D REACTOR OPERATOR Narrative APS SPECTRA [facility] - 08/31/2021 Unless otherwise specified, test(s) performed at: [facility], [address] [place] [address] PEER HEALTH PROMOTER: Carl Paula M.D. For any questions, please call customer service at FREQUENCY:MONTHLY Resulting Agency Comment Specimen source: Blood Ladnon Calvert MD LAB BLOOD ORDERABLES Performing Organization Address City/State/ZIP Code Phon e Number APS SPECTRA [facility] documented in this encounter Visit Diagnoses Not on filedocumented in this encounter Care Teams Senior Painter Relationship Specialty Start Date End Date Fabian Arias MD PCP - General Family Medicine 09/04/[address] [place] [address] documented as of this encounter
--- OUTSIDE RECORDS SUMMARY | 2022-04-25 13:48 | XMS_ITS | Encounter Summary ---
:1940 Author Organization [facility] Address [address] [place] [address] Care Team Providers Name Role Phone Fabian Arias MD Primary Care Provider Encounter Details Date Type Department Care Team Description 10/04/2021 Orders Only [facility] f Landon Zarate MD [address] [place] [address] [place], [place] [phone] (Wo rk) Social History Tobacco Use [...] 10/09/2021 Unless otherwise specified, test(s) performed at: [facility], [address] [place], [place] [id number] VETERINARY LABORATORY DIAGNOSTICIAN: Carl Paula M.D. For any questions, please call customer service at FREQUENCY:MONTHLY Resulting Agency Comment Specimen source: Plasma Landon Calvert MD LAB BLOOD ORDERABLES Performing Organization Address City/[facility]/ZIP Code Phon e Number APS SPECTRA [...] 10/09/2021 Unless otherwise specified, test(s) performed at: [facility], [address] [place] [address] VETERINARY LABORATORY DIAGNOSTICIAN: Carl Paula M.D. For any questions, please [...] 10/09/2021 Unless otherwise specified, test(s) performed at: [facility], [address] [place] [address] VETERINARY LABORATORY DIAGNOSTICIAN: Carl Paula M.D. For any questions, please [...] for the general public, refer to MMWR [facility] 2004/Vol.54 (No. 16); 1-23, and for healthcare [...] above test result was obtained using Siemens Seniorlinkaur XP chemiluminescent method. Results obtaine d with [...] APS SPECTRA [facility] (ABNORMAL) Spectrae Chemistry (10/04/2021) [facility] Method Time Signature Ferritin 39 10 - [...] 10/09/2021 Unless otherwise specified, test(s) performed at: [facility], [address] [place] [address] VETERINARY LABORATORY DIAGNOSTICIAN: Carl Paula M.D. For any questions, please call customer service at FREQUENCY:MONTHLY Resulting Agency Comment Specimen source: Serum Landon Calvert MD LAB BLOOD ORDERABLES Performing Organization Address City/[facility] Code Phon e Number APS SPECTRA [facility] (ABNORMAL) Spectrae Chemistry (10/04/2021) P athologist Signature PTH 232 (H) 16 - 80 APS SPECTRA pg/mL [facility] Specimen (Source) Anatomical Collection Method Collection Time Re ceived Time Location / / Volume Laterality 10/04/2021 10/09/2021 10:1 0 AM CDT Narrative APS SPECTRA [facility] - 10/09/2021 Unless otherwise specified, test(s) performed at: [facility], [address] [place] [address] VETERINARY LABORATORY DIAGNOSTICIAN: Carl Paula M.D. For any questions, please call customer service at FREQUENCY:MONTHLY Resulting Agency Comment Specimen source: Plasma Landon Calvert MD LAB BLOOD ORDERABLES Performing Organization Address City/State/ZIP Code Phon e Number APS SPECTRA [facility] documented in this encounter Visit Diagnoses Not on filedocumented in this encounter Care Teams Public Finance Specialist Relationship Specialty Start Date End Date Fabian Arias MD PCP - General Family Medicine 09/04/[address] [place] [address] documented as of this encounter
--- OUTSIDE RECORDS SUMMARY | 2022-04-25 13:49 | XMS_ITS | Encounter Summary ---
:1940 Author Organization [facility] Address [address] [place] [address] Care Team Providers Name Role Phone Fabian Arias MD Primary Care Provider Encounter Details Date Type Department Care Team Description 06/14/2021 Orders Only [facility] f Landon Zarate MD [address] [place] [address] [place], [place] [phone] (Wo rk) Social History Tobacco Use [...] / Volume Laterality 06/14/2021 06/15/2021 1:55 PM SUPERVISOR HOME RESTORATION SERVICE Narrative APS SPECTRA [facility] - 06/15/2021 Unless otherwise specified, test(s) performed at: [facility], [address] [place] [address] COMMERCIAL ASSISTANT: Carl Paula M.D. For any questions, please call customer service at FREQUENCY:OTHER Resulting Agency Comment Specimen source: Blood Landon Calvert MD LAB BLOOD ORDERABLES Performing Organization Address City/State/ZIP Code Phon e Number APS SPECTRA [facility] documented in this encounter Visit Diagnoses Not on filedocumented in this encounter Care Teams Area Relief Pilot Relationship Specialty Start Date End Date Fabian Arias MD PCP - General Family Medicine 09/04/[address] [place] [address] documented as of this encounter
--- OUTSIDE RECORDS SUMMARY | 2022-04-25 13:49 | XMS_ITS | Encounter Summary ---
:1940 Author Organization [facility] Address [address] [place] [address] Care Team Providers Name Role Phone Fabian Arias MD Primary Care Provider Encounter Details Date Type Department Care Team Description 06/29/2021 Orders Only [facility] O f Landon Zarate MD [address] [place] [address] [place], [place] [phone] (Wo rk) Social History Tobacco Use [...] encounter Results (ABNORMAL) SARS-CoV-2 by PCR (06/29/2021) [facility] Method Time Signature SARS CoV-2 by [...] for the duration of time that the Core Driller Helper of the HHS decla res circumstances exist justifying the authorization of the christiano gency use of in vitro diagnostic tests for detection of SARS-CoV-2 virus and/or diagnosis of COVID-19 infection under section 564(b)(1) of the Act, 21 U.S.C. 360bbb-3(b)(1), unless the authorization is terminated o r revoked sooner. To learn more about this test, go to [email or web address] [email or web address] Performed by: PLACIDO Wong [id number], CLIA [id number], [address] [place] [address] Heater Operator: Anthony Keen, Ph D, [facility], [facility] ([facility]) Performed by: JANNA Wong [id number], [address] ??[place] [address], Sp Gonzales MD First COVID-19 Test? NO [...] / Volume Laterality 06/29/2021 06/30/2021 6:33 PM PULLING UNIT FLOORHAND Narrative APS SPECTRA [facility] - 06/30/2021 Unless otherwise specified, test(s) performed at: [facility], [facility] [place] [address] [address] SUPERVISOR SAWMILL: Darnell Nguyen M.D. For any questions, please call customer service at FREQUENCY:OTHER Resulting Agency Comment Specimen source: Swab/ANTERIOR NARES Landon Calvert MD LAB [id number] NSOLICITED RESULTS Performing Organization Address City/State/ZIP Code Phon e Number APS SPECTRA [facility] documented in this encounter Visit Diagnoses Not on filedocumented in this encounter Care Teams Stone Setter Relationship Specialty Start Date End Date Fabian Arias MD PCP - General Family Medicine 09/04/[address] [place] [address] documented as of this encounter
--- OUTSIDE RECORDS SUMMARY | 2022-04-25 13:49 | XMS_ITS | Encounter Summary ---
:1940 Author Organization [facility] Address [address] [place] [address] Care Team Providers Name Role Phone Fabian Arias MD Primary Care Provider Encounter Details Date Type Department Care Team Description 05/24/2021 Orders Only [facility] O f Landon Zarate MD [address] [place] [address] [place], [place] [phone] (Wo rk) Social History Tobacco Use [...] Volume Laterality 05/24/2021 05/26/2021 10:5 5 AM BLADE GRINDER Narrative APS SPECTRA [facility] - 05/26/2021 Unless otherwise specified, test(s) performed at: [facility], [address] [place] [address] TACK COVERER: Carl Paula M.D. For any questions, please call customer service at FREQUENCY:OTHER Resulting Agency Comment Specimen source: Blood Landon Calvert MD LAB BLOOD ORDERABLES Performing Organization Address City/State/ZIP Code Phon e Number APS SPECTRA [facility] documented in this encounter Visit Diagnoses Not on filedocumented in this encounter Care Teams Seamer Relationship Specialty Start Date End Date Fabian Arias MD PCP - General Family Medicine 09/04/[address] [place] [address] documented as of this encounter
--- OUTSIDE RECORDS SUMMARY | 2022-04-25 13:49 | XMS_ITS | Encounter Summary ---
:1940 Author Organization [facility] Address [address] [place] [address] Care Team Providers Name Role Phone Fabian Arias MD Primary Care Provider Encounter Details Date Type Department Care Team Description 07/04/2021 Orders Only [facility] f Landon Zarate MD [address] [place] [address] [place], [place] [phone] (Wo rk) Social History Tobacco Use [...] / Volume Laterality 07/04/2021 07/07/2021 1:15 PM RNP Narrative APS SPECTRA [facility] - 07/07/2021 Unless otherwise specified, test(s) performed at: [facility], [address] [place] [address] LINE MAINTAINER SECTION: Carl Paula M.D. For any questions, please [...] the a ssay have been determined by [employer] and validation of the assay meets regulatory [...] learn more about this test, go to [email or web address] rts Performed by: PLACIDO Wong [id number], CLIA [id number], [address] [place] [address] Steam Train Driver: Anthony Keen, Ph D, [facility], [facility] ([facility]) Performed by: JANNA Wong [id number], [address] ??[place] [address], Sp Gonzales MD First COVID-19 Test? UNKNOWN [...] / Volume Laterality 07/04/2021 07/06/2021 6:15 AM RNP Narrative APS SPECTRA [facility] - 07/06/2021 Unless otherwise specified, test(s) performed at: [facility], [address] [place] [address] , [place] [address] LINE MAINTAINER SECTION: Darnell Nguyen M.D. For any questions, please call customer service at FREQUENCY:OTHER Resulting Agency Comment Specimen source: Swab/ANTERIOR NARES Landon Calvert MD LAB [id number] NSOLICITED RESULTS Performing Organization Address City/State/ZIP Code Phon e Number APS SPECTRA [facility] documented in this encounter Visit Diagnoses Not on filedocumented in this encounter Care Teams Basketball Commentator Relationship Specialty Start Date End Date Fabian Arias MD PCP - General Family Medicine 09/04/[address] [place] [address] documented as of this encounter
--- OUTSIDE RECORDS SUMMARY | 2022-04-25 13:49 | XMS_ITS | Encounter Summary ---
:1940 Author Organization [facility] Address [address] [place] [address] Care Team Providers Name Role Phone Fabian Arias MD Primary Care Provider Encounter Details Date Type Department Care Team Description 06/07/2021 Orders Only [facility] f Landon Zarate MD [phone] [place] [address] [place], [place] [phone] (Wo rk) Social History Tobacco Use [...] Volume Laterality 06/07/2021 06/08/2021 10:0 1 AM ANALYST SALES Narrative [facility]RA [facility] - 06/08/2021 Unless otherwise specified, test(s) performed at: [facility], [address] [place] [id number] PAYABLE REPRESENTATIVE: Carl Paula M.D. For any questions, please call customer service at FREQUENCY:OTHER Resulting Agency Comment Specimen source: Blood Landon Calvert MD LAB BLOOD ORDERABLES Performing Organization Address City/State/ZIP Code Phon e Number [facility] documented in this encounter Visit Diagnoses Not on filedocumented in this encounter Care Teams Maltster Relationship Specialty Start Date End Date Fabian Arias MD PCP - General Family Medicine 09/04/[address] [place] [address] documented as of this encounter
--- OUTSIDE RECORDS SUMMARY | 2022-04-25 13:49 | XMS_ITS | Encounter Summary ---
:1940 Author Organization [facility] Address [address] [place] [address] Care Team Providers Name Role Phone Fabian Arias MD Primary Care Provider Encounter Details Date Type Department Care Team Description 07/05/2021 Orders Only [facility] f Landon Zarate MD [phone] [place] [address] [place], [place] [phone] (Wo rk) Social History Tobacco Use [...] Volume Laterality 07/05/2021 07/07/2021 12:1 5 PM TESTER WASTE DISPOSAL LEAKAGE Narrative [facility] - 07/10/2021 Unless otherwise specified, test(s) performed at: [facility], [address] [place] [address] CYLINDRICAL MIXER: Carl Paula M.D. For any questions, please call customer service at FREQUENCY:MONTHLY Resulting Agency Comment Specimen source: Serum Landon Calvert MD LAB BLOOD BANK TEST ORDERABL ES Performing Organization Address City/[facility]/ZIP Code Phon e Number APS SPECTRA [...] Volume Laterality 07/05/2021 07/07/2021 12:1 5 PM TESTER WASTE DISPOSAL LEAKAGE Resulting Agency Comment Specimen source: Serum Landon Calvert MD LAB BLOOD ORDERABLES Performing Organization Address City/State/ZIP Code Phon e Number [facility] TRACE ELEMENTS (07/05/2021) P athologist Signature Aluminum <5 0 - 10 A[facility] mcg/L [facility] Comment: This test was developed and its performa nce characteristics determined by [facility]. It has not been cleared or approved by the FDA. The laboratory is regulated under CLIA a s qualified to perform high complexity testing. This test is used fo r clinical purposes. It should not be regarded as investigational or fo r research. Specimen (Source) Anatomical Collection Method Collection Time Re ceived Time Location / / Volume Laterality 07/05/2021 07/07/2021 1:01 PM TESTER WASTE DISPOSAL LEAKAGE Narrative [facility] - 07/09/2021 Unless otherwise specified, test(s) performed at: [facility], [address] [place] [address] CYLINDRICAL MIXER: Carl Paula M.D. For any questions, please [...] Volume Laterality 07/05/2021 07/07/2021 12:3 5 PM TESTER WASTE DISPOSAL LEAKAGE Narrative [facility] - 07/08/2021 Unless otherwise specified, test(s) performed at: [facility], [address] [place] [address] CYLINDRICAL MIXER: Carl Paula M.D. For any questions, please call customer service at FREQUENCY:MONTHLY Resulting Agency Comment Specimen source: Plasma Landon Calvert MD LAB BLOOD ORDERABLES Performing Organization Address City/State/[facility] Phon e Number [facility] HD KINETICS (07/05/2021) P athologist Signature % Urea 78 65 - 80 % APS SPECTRA Reduction [facility] Specimen (Source) Anatomical Collection Method Collection Time Re ceived Time Location / / Volume Laterality 07/05/2021 07/07/2021 12:1 5 PM TESTER WASTE DISPOSAL LEAKAGE Narrative [facility] - 07/07/2021 Unless otherwise specified, test(s) performed at: [facility], [address] [place] [address] CYLINDRICAL MIXER: Carl Paula M.D. For any questions, please call customer service at FREQUENCY:MONTHLY Resulting Agency Comment Specimen source: Serum Landon Calvert MD LAB BLOOD ORDERABLES Performing Organization Address City/State/[facility] Code Phon [...] Volume Laterality 07/05/2021 07/07/2021 12:1 5 PM TESTER WASTE DISPOSAL LEAKAGE Narrative [facility] - 07/09/2021 Unless otherwise specified, test(s) performed at: [facility], [address] [place] [address] CYLINDRICAL MIXER: Carl Paula M.D. For any questions, please [...] Volume Laterality 07/05/2021 07/07/2021 11:4 1 AM TESTER WASTE DISPOSAL LEAKAGE Narrative [facility] - 07/07/2021 Unless otherwise specified, test(s) performed at: [facility], [address] [place] [address] CYLINDRICAL MIXER: Carl Paula M.D. For any questions, please call customer service at FREQUENCY:MONTHLY Resulting Agency Comment Specimen source: Plasma Ladnon Calvert MD LAB BLOOD ORDERABLES Performing Organization Address City/[facility] Code [...] Volume Laterality 07/05/2021 07/07/2021 12:0 8 PM TESTER WASTE DISPOSAL LEAKAGE Narrative [facility]PS SPECTRA [facility] - 07/07/2021 Unless otherwise specified, test(s) performed at: [facility], [address] [place] [address] CYLINDRICAL MIXER: Carl Paula M.D. For any questions, please call customer service at FREQUENCY:MONTHLY Resulting Agency Comment Specimen source: Blood Landon Calvert MD LAB BLOOD ORDERABLES Performing Organization Address City/[facility]/ZIP [facility] Phon e Number [facility] documented in this encounter Visit Diagnoses Not on filedocumented in this encounter Care Teams Tub Rider Relationship Specialty Start Date End Date Fabian Arias MD PCP - General Family Medicine 09/04/[address] [place] [address] documented as of this encounter
--- OUTSIDE RECORDS SUMMARY | 2022-04-25 13:49 | XMS_ITS | Encounter Summary ---
:1940 Author Organization [facility] Address [address] [place] [address] Care Team Providers Name Role Phone Fabian Arias MD Primary Care Provider Encounter Details Date Type Department Care Team Description 05/31/2021 Orders Only [facility] O f Landon Zarate MD [phone] [place] [address] [place], [place] [phone] (Wo rk) Social History Tobacco Use [...] spKt/V Gotch 2.12 CELIA eKt/V Gotch 1.79 CELAI eKdrt/V 1.79 CELIA eKt/V 1.82 CELIA ([place]) [...] / Volume Laterality 05/31/2021 06/01/2021 4:15 PM MEDIA LAW FACULTY MEMBER Resulting Agency Comment Specimen source: Serum Landon Calvert MD LAB BLOOD ORDERABLES Performing Organization Address City/[facility]/ZIP Code Phon e Number [facility] POST CHEMISTRY (05/31/2021) athologist Signature BUN Post 11 6 - 19 APS SPECTRA Dialysis mg/dL [facility] Specimen (Source) Anatomical Collection Method Collection Time Re ceived Time Location / / Volume Laterality 05/31/2021 06/01/2021 3:58 PM MEDIA LAW FACULTY MEMBER Narrative [facility]PS SPECTRA [facility] - 06/02/2021 Unless otherwise specified, test(s) performed at: [facility], [address] [place] [address] CAT OPERATOR: Carl Paula M.D. For any questions, [...] / Volume Laterality 05/31/2021 06/01/2021 4:08 PM MEDIA LAW FACULTY MEMBER Narrative [facility]PS SPECTRA [facility] - 06/01/2021 Unless otherwise specified, test(s) performed at: [facility], [address] [place] [address] CAT OPERATOR: Carl Paula M.D. For any questions, please call customer service at FREQUENCY:MONTHLY Resulting Agency Comment Specimen source: Serum Landon Calvert MD LAB BLOOD ORDERABLES Performing Organization Address City/State/ZIP Code Phon e Number [facility]PS SPECTRA [facility] (ABNORMAL) Spectrae Chemistry (05/31/2021) [facility] gist Method Time Signature BUN 64 [...] / Volume Laterality 05/31/2021 06/01/2021 4:08 PM MEDIA LAW FACULTY MEMBER Narrative APS SPECTRA [facility] - 06/01/2021 Unless otherwise specified, test(s) performed at: [facility], [address] [place], [place] [id number] CAT OPERATOR: Carl Paula M.D. For any questions, [...] / Volume Laterality 05/31/2021 06/01/2021 9:49 AM MEDIA LAW FACULTY MEMBER Narrative APS SPECTRA [facility] - 06/01/2021 Unless otherwise specified, test(s) performed at: [facility], [address] [place] [address] CAT OPERATOR: Carl Paula M.D. For any questions, please call customer service at FREQUENCY:MONTHLY Resulting Agency Comment Specimen source: Plasma Landon Calvert MD LAB BLOOD ORDERABLES Performing Organization Address City/[facility] Code Phon e Number APS [...] / Volume Laterality 05/31/2021 06/01/2021 9:49 AM MEDIA LAW FACULTY MEMBER Narrative APS SPECTRA [facility] - 06/01/2021 Unless otherwise specified, test(s) performed at: [facility], [address] [place] [address] CAT OPERATOR: Carl Paula M.D. For any questions, please call customer service at FREQUENCY:MONTHLY Resulting Agency Comment Specimen source: Blood Landon Calvert MD LAB BLOOD ORDERABLES Performing Organization Address City/[facility] Phon e Number APS SPECTRA [facility] documented in this encounter Visit Diagnoses Not on filedocumented in this encounter Care Teams Puddler Pile Driving Relationship Specialty Start Date End Date Fabian Arias MD PCP - General Family Medicine 09/04/[address] [place] [address] documented as of this encounter
--- OUTSIDE RECORDS SUMMARY | 2022-04-25 13:49 | XMS_ITS | Encounter Summary ---
:1940 Author Organization [facility] Address [address] [place] [address] Care Team Providers Name Role Phone Fabian Arias MD Primary Care Provider Encounter Details Date Type Department Care Team Description 05/17/2021 Treatment [facility] f Landon Zarate MD [address] [place] [address] [place], [place] [phone] (Wo rk) Social History Tobacco Use Types Packs/Day Years Used Date Smoking Tobacco: Never Assessed Sex Assigned at Date Recorded Not on file documented as of this encounter Miscellaneous Notes Dialysis Note - Landon Calvert MD - 05/17/2021 11:31 AM CST Date: May 17, 2021 Patient Name: Zamzam Garibay : 1940 Chart #: [id number] Sex: F This patient was personally seen [...] AM ) BP (sit): 134/76 AP(-) / LIFE SUPPORT TECHNICIAN: 201/140 Pulse: 84 Chairside data as of [...] 0.75 mcg ORAL Every Treatment 05/08/2021 05/07/2022 CIVIL MANAGER: Landon Calvert MD LOCATION: [phone] SCHEDULE: - 2nd Shift ACCESS: EDW: kg. [...] HD. 04/26/21: She was hospitalized briefly at [place] for dyspnea, no pneumonia but rather related to CHF. She saw cardiology in follow-up in clinic, lisinopril and metoprolol and lasix with UF on HD to dry weight recommended. She is not interested in home dialysis, discussed today. 04/12/21: Patient new to me. She followed with director biologics in [facility], did not follow-up,crashed into dialysis in [...] mouth once a day 04/12/2021 RenaPlex-D (vit b,p-iz-vfso-selen-vit d3-e) 800 mcg-12.5 mg-2,000 unit tablet Take [...] on filedocumented in this encounter Care Teams Respiratory Coordinator Relationship Specialty Start Date End Date Fabian Arias MD PCP - General Family Medicine 09/04/[address] [place] [address] documented as of this encounter
--- OUTSIDE RECORDS SUMMARY | 2022-04-25 13:49 | XMS_ITS | Encounter Summary ---
:1940 Author Organization [facility] Address [address] [place] [address] Care Team Providers Name Role Phone Fabian Arias MD Primary Care Provider Encounter Details Date Type Department Care Team Description 06/14/2021 Treatment [facility] f Landon Zarate MD [address] [place] [address] [place], [place] [phone] (Wo rk) Social History Tobacco Use Types Packs/Day Years Used Date Smoking Tobacco: Never Assessed Sex Assigned at Date Recorded Not on file documented as of this encounter Miscellaneous Notes Dialysis Note - Landon Calvert MD - 06/14/2021 9:44 AM CST Date: Jun 14, 2021 Patient Name: Zamzam Garibay : 1940 Chart #: [id number] Sex: F This patient was personally seen [...] AM ) BP (sit): 113/60 AP(-) / MOTEL FRONT DESK ATTENDANT: 207/146 Pulse: 79 Chairside data as of [...] 1.0 mcg ORAL Every Treatment 06/05/2021 06/04/2022 TECHNICAL PROJECT LEAD: Landon Calvert MD LOCATION: [place] [phone] SCHEDULE: -W- 2nd Shift EDW: kg. DIALYZER: HD DURATION: NEEDLE SIZE: ANTICOAG: BATH: QB: ml/min QD: ml/min Subjective 06/14/21: She was in the hospital overnight last month at [place], SOB resolved with fluid removal. Can't remove [...] HD. 04/26/21: She was hospitalized briefly at [place] for dyspnea, no pneumonia but rather related to CHF. She saw cardiology in follow-up in clinic, lisinopril and metoprolol and lasix with UF on HD to dry weight recommended. She is not interested in home dialysis, discussed today. 04/12/21: Patient new to me. She followed with valet attendant in [facility], did not follow-up,crashed into dialysis in [...] mouth once a day 04/12/2021 RenaPlex-D (vit b,i-uq-fyhl-selen-vit d3-e) 800 mcg-12.5 mg-2,000 unit tablet Take [...] tributaries. [facility], will send to [facility] [place] fistul[place] and vascular [...] above goal. Intact PTH is at goal. Shore Working Supervisor will adjust binders and vitamin D [...] treatments to avoid pulmonary edema Send to [facility] for fistulagram and vascular surgery consult Landon Calvert MD [ Signed And locked electronically On 06/14/2021 at 09:51:52 AM ] Transcribed: Landon Calvert ( 06/14/2021 ) documented in this encounter Plan of Treatment Not on filedocumented as of this encounter Visit Diagnoses Not on filedocumented in this encounter Care Teams Travel Agency Manager Relationship Specialty Start Date End Date Fabian Arias MD PCP - General Family Medicine 09/04/[address] [place] [address] documented as of this encounter
--- OUTSIDE RECORDS SUMMARY | 2022-04-25 13:49 | XMS_ITS | Encounter Summary ---
:1940 Author Organization [facility] Address [address] [place] [address] Care Team Providers Name Role Phone Fabian Arias MD Primary Care Provider Encounter Details Date Type Department Care Team Description 06/27/2021 Orders Only [facility] O f Landon Zarate MD [address] [place] [address] [place], [place] [phone] (Wo rk) Social History Tobacco Use [...] encounter Results (ABNORMAL) SARS-CoV-2 by PCR (06/27/2021) [facility] Method Time Signature SARS CoV-2 by [...] for the duration of time that the Production Hand of the HHS decla res circumstances exist justifying the authorization of the christiano gency use of in vitro diagnostic tests for detection of SARS-CoV-2 virus and/or diagnosis of COVID-19 infection under section 564(b)(1) of the Act, 21 U.S.C. 360bbb-3(b)(1), unless the authorization is terminated o r revoked sooner. To learn more about this test, go to [email or web address]/[email or web address] rts Performed by: PLACIDO Wong [id number], CLIA [id number], [address] [place] [address] Special Machine Operator: Anthony Keen, Ph D, [facility], [facility] ([facility]) Performed by: JANNA Wong [id number], [address] ??[place] [address], Sp Gonzales MD First COVID-19 Test? UNKNOWN [...] / Volume Laterality 06/27/2021 06/28/2021 7:27 PM CAR WASH ATTENDANT Narrative APS SPECTRA [facility] - 06/28/2021 Unless otherwise specified, test(s) performed at: [facility], [facility] [place] [address] [address] COOK JELLY: Darnell Nguyen M.D. For any questions, please call customer service at FREQUENCY:OTHER Resulting Agency Comment Specimen source: Swab/ANTERIOR NARES Landon Calvert MD LAB [id number] NSOLICITED RESULTS Performing Organization Address City/State/ZIP Code Phon e Number APS SPECTRA [facility] documented in this encounter Visit Diagnoses Not on filedocumented in this encounter Care Teams Business Analyst Intern Relationship Specialty Start Date End Date Fabian Arias MD PCP - General Family Medicine 09/04/[address] [place] [address] documented as of this encounter
--- OUTSIDE RECORDS SUMMARY | 2022-04-25 13:49 | XMS_ITS | Encounter Summary ---
:1940 Author Organization [facility] Address [address] [place] [address] Care Team Providers Name Role Phone Fabian Arias MD Primary Care Provider Encounter Details Date Type Department Care Team Description 07/12/2021 Orders Only [facility] O f Landon Zarate MD [phone] [place] [address] [place], [place] [phone] (Wo rk) Social History Tobacco Use [...] / Volume Laterality 07/12/2021 07/13/2021 7:43 PM CUSTOMER TRAINER Narrative APS SPECTRA [facility] - 07/14/2021 Unless otherwise specified, test(s) performed at: [facility], [address] [place] [address] PRESBYTERIAN CLERGY: Carl Paula M.D. For any questions, please call customer service at FREQUENCY:OTHER Resulting Agency Comment Specimen source: Blood Landon Calvert MD LAB BLOOD ORDERABLES Performing Organization Address City/State/ZIP Code Phon e Number APS SPECTRA [facility] documented in this encounter Visit Diagnoses Not on filedocumented in this encounter Care Teams Pmp Certified Project Manager Relationship Specialty Start Date End Date Fabian Arias MD PCP - General Family Medicine 09/04/[address] [place] [address] documented as of this encounter
--- OUTSIDE RECORDS SUMMARY | 2022-04-25 13:49 | XMS_ITS | Encounter Summary ---
:1940 Author Organization [facility] Address [address] [place] [address] Care Team Providers Name Role Phone Fabian Arias MD Primary Care Provider Encounter Details Date Type Department Care Team Description 06/21/2021 Treatment [facility] f Landon Zarate MD [address] [place] [address] [place], [place] [phone] (Wo rk) Social History Tobacco Use Types Packs/Day Years Used Date Smoking Tobacco: Never Assessed Sex Assigned at Date Recorded Not on file documented as of this encounter Miscellaneous Notes Dialysis Note - Landon Calvert MD - 06/21/2021 9:36 AM CST Date: Jun 21, 2021 Patient Name: Zamzam Garibay : 1940 Chart #: [id number] Sex: F This patient was personally seen [...] AM ) BP (sit): 139/79 AP(-) / FULL STACK PYTHON DEVELOPER: 221/143 Pulse: 76 Chairside data as of [...] 1.0 mcg ORAL Every Treatment 06/05/2021 06/04/2022 DYE MAKER: Landon Calvert MD LOCATION: [phone] SCHEDULE: -W- 2nd Shift ACCESS: EDW: kg. [...] in the hospital overnight last month at [place], SOB resolved with fluid removal. Can't remove [...] HD. 04/26/21: She was hospitalized briefly at [place] for dyspnea, no pneumonia but rather related to CHF. She saw cardiology in follow-up in clinic, lisinopril and metoprolol and lasix with UF on HD to dry weight recommended. She is not interested in home dialysis, discussed today. 04/12/21: Patient new to me. She followed with card reader in [facility], did not follow-up,crashed into dialysis [...] mouth once a day 04/12/2021 RenaPlex-D (vit b,k-ye-imah-selen-vit d3-e) 800 mcg-12.5 mg-2,000 unit tablet Take [...] tributaries. [facility] now has procedure scheduled at [facility]. Impression and Plan Increase EDW to 44 [...] on filedocumented in this encounter Care Teams Video Control Operator Relationship Specialty Start Date End Date Fabian Arias MD PCP - General Family Medicine 09/04/[address] [place] [address] documented as of this encounter
--- OUTSIDE RECORDS SUMMARY | 2022-04-25 13:49 | XMS_ITS | Encounter Summary ---
:1940 Author Organization [facility] Address [address] [place] [address] Care Team Providers Name Role Phone Fabian Arias MD Primary Care Provider Encounter Details Date Type Department Care Team Description 07/05/2021 Treatment [facility] f Landon Zarate MD [address] [place] [address] [place], [place] [phone] (Wo rk) Social History Tobacco Use Types Packs/Day Years Used Date Smoking Tobacco: Never Assessed Sex Assigned at Date Recorded Not on file documented as of this encounter Miscellaneous Notes Dialysis Note - Landon Calvert MD - 07/05/2021 8:59 AM CST Date: Jul 05, 2021 Patient Name: Zamzam Garibay : 1940 Chart #: [id number] Sex: F This patient was personally seen [...] AM ) BP (sit): 121/62 AP(-) / ROUND BONER: 172/117 Pulse: 80 Chairside data as of [...] 1.0 mcg ORAL Every Treatment 06/05/2021 06/04/2022 PROFESSIONAL BONDSMAN: Landon Calvert MD LOCATION: [phone] SCHEDULE: -W- 2nd Shift EDW: kg. DIALYZER: HD DURATION: NEEDLE SIZE: ANTICOAG: BATH: QB: ml/min QD: ml/min Subjective 07/05/21: This is Jaz's first day back from [facility] unit. She says she had no symptoms, but her son tested her when she was fatigued and had fever. She reports now having no symptoms at all. She says she feels great. Fluid gains have been better. 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 Can't remove [...] HD. 04/26/21: She was hospitalized briefly at [place] for dyspnea, no pneumonia but rather related to CHF. She saw cardiology in follow-up in clinic, lisinopril and metoprolol and lasix with UF on HD to dry weight recommended. She is not interested in home dialysis, discussed today. 04/12/21: Patient new to me. She followed with emr specialist in [facility], did not [...] mouth once a day 04/12/2021 RenaPlex-D (vit b,h-yf-sgxn-selen-vit d3-e) 800 mcg-12.5 mg-2,000 unit tablet Take [...] tributaries. Have had difficulty getting her into [facility], now has procedure scheduled at [facility] but delayed until August due to COVID [...] above goal. Intact PTH is at goal. Director Clinical Applications will adjust binders and vitamin D per [...] on filedocumented in this encounter Care Teams Security Shift Supervisor Relationship Specialty Start Date End Date Fabian Arias MD PCP - General Family Medicine 09/04/[address] [place] [address] documented as of this encounter
--- OUTSIDE RECORDS SUMMARY | 2022-04-25 13:49 | XMS_ITS | Encounter Summary ---
:1940 Author Organization [facility] Address [address] [place] [address] Care Team Providers Name Role Phone Fabian Arias MD Primary Care Provider Encounter Details Date Type Department Care Team Description 06/22/2021 [facility] O f Landon Zarate MD [phone] [place] [address] [place], [place] [phone] (Wo rk) Social History Tobacco Use [...] encounter Results (ABNORMAL) SARS-CoV-2 by PCR (06/22/2021) [facility] Method Time Signature SARS [...] for the duration of time that the Marketing Director [facility] of the [facility] decla res circumstances exist justifying the authorization of the christiano gency use of in vitro diagnostic tests for detection of SARS-CoV-2 virus and/or diagnosis of COVID-19 infection under section 564(b)(1) of the Act, 21 U.S.C. 360bbb-3(b)(1), unless the authorization is terminated o r revoked sooner. To learn more about this test, go to [email or web address].[employer]/pages/[email or web address]-yaeb rts Performed by: PLACIDO Wong [id number], CLIA 0 [id number], [address] [place] [address] Manufacturing Machine Operator: Anthony Keen, Ph D, FAC, FFSC ([facility]) Performed by: JANNA Wong [id number], [address] ??[place] [address], Sp Gonzales MD First COVID-19 Test? YES [...] / Volume Laterality 06/22/2021 06/23/2021 9:16 PM HOUSE FATHER Narrative [facility] - 06/23/2021 Unless otherwise specified, test(s) performed at: [facility], [facility] [address], [place] [address] ENROLLED AGENT: Darnell Nguyen M.D. For any questions, please call customer service at FREQUENCY:OTHER Resulting Agency Comment Specimen source: Swab/ANTERIOR NARES Landon Calvert MD LAB [id number] NSOLICITED RESULTS Performing Organization Address City/State/ZIP Code Phon e Number [facility] HEMATOLOGY (06/22/2021) athologist Signature Hemoglobin 12.2 12.0 - [facility] 16.0 g/dL [facility] Hemoglobin x 3 36.6 36.0 - [facility] 48.0 % [facility] Specimen (Source) Anatomical Collection Method Collection Time Re ceived Time Location / / Volume Laterality 06/22/2021 06/23/2021 10:0 9 AM HOUSE FATHER Narrative [facility] - 06/23/2021 Unless otherwise specified, test(s) performed at: [facility], [address] [place] [address] ENROLLED AGENT: Carl Paula M.D. For any questions, please call customer service at FREQUENCY:OTHER Resulting Agency Comment Specimen source: Blood Landon Calvert MD LAB BLOOD ORDERABLES Performing Organization Address City/State/ZIP Code Phon e Number [facility] documented in this encounter Visit Diagnoses Not on filedocumented in this encounter Care Teams Beaver Trapper Relationship Specialty Start Date End Date Fabian Arias MD PCP - General Family Medicine 09/04/[address] [place] [address] documented as of this encounter
--- OUTSIDE RECORDS SUMMARY | 2022-04-25 13:49 | XMS_ITS | Encounter Summary ---
:1940 Author Organization [facility] Address [address] [place] [address] Care Team Providers Name Role Phone Fabian Arias MD Primary Care Provider Encounter Details Date Type Department Care Team Description 06/21/2021 Orders [facility] O f Landon Zarate MD [phone] [place] [address] [place], [place] [phone] (Wo rk) Social History Tobacco Use [...] Volume Laterality 06/21/2021 06/22/2021 10:2 9 AM SPECIAL AGENT Narrative [facility] - 06/22/2021 Unless otherwise specified, test(s) performed at: [facility] [address] [place] [address] DUMP ATTENDANT: Carl Paula M.D. For any questions, please call customer service at FREQUENCY:OTHER Resulting Agency Comment Specimen source: Blood Landon Calvert MD LAB BLOOD ORDERABLES Performing Organization Address City/State/ZIP Code Phon e Number [facility] documented in this encounter Visit Diagnoses Not on filedocumented in this encounter Care Teams Incident Response Engineer Relationship Specialty Start Date End Date Fabian Arias MD PCP - General Family Medicine 09/04/[address] [place] [address] documented as of this encounter
--- OUTSIDE RECORDS SUMMARY | 2022-04-25 13:49 | XMS_ITS | Encounter Summary ---
:1940 Author Organization [facility] Address [address] [place] [address] Care Team Providers Name Role Phone Fabian Arias MD Primary Care Provider Encounter Details Date Type Department Care Team Description 05/17/2021 Orders [facility] O f Landon Zarate MD [phone] [place] [address] [place], [place] [phone] (Wo rk) Social History Tobacco Use [...] Volume Laterality 05/17/2021 05/18/2021 11:5 1 AM REGISTERED CLIENT ASSOCIATE Narrative [facility] - 05/18/2021 Unless otherwise specified, test(s) performed at: [facility] ([facility] [place]), [address] [place] [address] VIBRATION ANALYST: Carl Paula M.D. For any questions, please call customer service at FREQUENCY:OTHER Resulting Agency Comment Specimen source: Blood Landon Calvert MD LAB BLOOD ORDERABLES Performing Organization Address City/State/ZIP Code Phon e Number [facility] documented in this encounter Visit Diagnoses Not on filedocumented in this encounter Care Teams Lath Tier Relationship Specialty Start Date End Date Fabian Arias MD PCP - General Family Medicine 09/04/[address] [place] [address] documented as of this encounter
--- OUTSIDE RECORDS SUMMARY | 2022-04-25 13:50 | XMS_ITS | Encounter Summary ---
:1940 Author Organization [facility] Address [address] [place] [address] Care Team Providers Name Role Phone Fabian Arias MD Primary Care Provider Encounter Details Date Type Department Care Team Description 04/26/2021 Treatment [facility] Landon King MD [address] [place] [address] [place], [place] [phone] (Wo rk) Social History Tobacco Use Types Packs/Day Years Used Date Smoking Tobacco: Never Assessed Sex Assigned at Date Recorded Not on file documented as of this encounter Miscellaneous Notes External Note - Landon Calvert MD - 04/26/2021 11:25 AM CDT Date: Apr 26, 2021 Patient Name: Zamzam Garibay : 1940 Chart #: [id number] Sex: F Patient has transitioned out of the following type of facility within the past 30 days: Hospital. Discharging Facility: [facility] Patient caregiver is present? If yes, relationship [...] mouth once a day 04/12/2021 RenaPlex-D (vit b,j-vq-qudd-selen-vit d3-e) 800 mcg-12.5 mg-2,000 unit tablet Take [...] Name: Zamzam Garibay : 1940 Chart #: [id number] Sex: F This patient was personally seen [...] AM ) BP (sit): 114/63 AP(-) / CEO & BOARD DIRECTOR: 192/142 Pulse: 66 Chairside data as of [...] 0.5 mcg ORAL Every Treatment 04/10/2021 04/09/2022 AIRFIELD MANAGER: Landon Calvert MD LOCATION: [phone] SCHEDULE: -- 2nd Shift ACCESS: EDW: kg. DIALYZER: HD DURATION: NEEDLE SIZE: ANTICOAG: BATH: QB: ml/min QD: ml/min Subjective 04/26/21: She was hospitalized briefly at [facility] for dyspnea, no pneumonia but rather related to CHF. She saw cardiology in follow-up in clinic, lisinopril and metoprolol and lasix with UF on HD to dry weight recommended. She is not interested in home dialysis, discussed today. 04/12/21: Patient new to me. She followed with terminal block assembler in [facility], did not follow-up,crashed into dialysis in [...] mouth once a day 04/12/2021 RenaPlex-D (vit b,u-il-erie-selen-vit d3-e) 800 mcg-12.5 mg-2,000 unit tablet Take [...] filedocumented in this encounter Care Teams Manager Of Change Relationship Specialty Start Date End Date Fabian Arias MD PCP - General Family Medicine 09/04/[address] [place] [address] documented as of this encounter
--- OUTSIDE RECORDS SUMMARY | 2022-04-25 13:50 | XMS_ITS | Encounter Summary ---
:1940 Author Organization [facility] Address [address] [place] [address] Care Team Providers Name Role Phone Fabian Arias MD Primary Care Provider Encounter Details Date Type Department Care Team Description 05/03/2021 Orders Only [facility] O f Landon Zarate MD [phone] [place] [address] [place], [place] [phone] (Wo rk) Social History Tobacco Use [...] Lab Results (05/03/2021) athologist Signature eNPCR 1.13 CLEIA eKt/V 1.82 CELIA ([place]) spKt/V 2.12 CELIA [...] LAB BLOOD ORDERABLES Performing Organization Address City/[facility] Phon e Number [facility] POST CHEMISTRY (05/03/2021) P athologist Signature BUN Post 10 6 - 19 [facility] Dialysis mg/dL [facility] Specimen (Source) Anatomical Collection Method Collection Time Re ceived Time Location / / Volume Laterality 05/03/2021 05/04/2021 12:3 5 PM CDT Narrative [facility] - 05/05/2021 Unless otherwise specified, test(s) performed at: [facility], [address] [place] [address] TALENT PROGRAM MANAGER: Carl Paula M.D. For any questions, [...] 05/05/2021 Unless otherwise specified, test(s) performed at: [facility], [address] [place] [address] TALENT PROGRAM MANAGER: Carl Paula M.D. For any questions, [...] 05/05/2021 Unless otherwise specified, test(s) performed at: [facility], [address] [place] [address] TALENT PROGRAM MANAGER: Carl Paula M.D. For any questions, [...] 05/04/2021 Unless otherwise specified, test(s) performed at: [facility], [address] [place] [address] TALENT PROGRAM MANAGER: Carl Paula M.D. For any questions, please call customer service at FREQUENCY:MONTHLY Resulting Agency Comment Specimen source: Blood Landon Calvert MD LAB BLOOD ORDERABLES Performing Organization Address City/[facility] Phon e Number [facility] (ABNORMAL) Spectrae Chemistry (05/03/2021) P athologist Signature PTH 505 (H) 16 - 80 [facility] pg/mL [facility] Specimen (Source) Anatomical Collection Method Collection Time Re ceived Time Location / / Volume Laterality 05/03/2021 05/04/2021 9:52 AM CDT Narrative [facility] - 05/04/2021 Unless otherwise specified, test(s) performed at: [facility], [address] [place] [address] TALENT PROGRAM MANAGER: Carl Paula M.D. For any questions, please call customer service at FREQUENCY:MONTHLY Resulting Agency Comment Specimen source: Plasma Landon Calvert MD LAB BLOOD ORDERABLES Performing Organization Address City/State/ZIP [facility] Phon e Number [facility] documented in this encounter Visit Diagnoses Not on filedocumented in this encounter Care Teams Dry Cleaning Teacher Relationship Specialty Start Date End Date Fabian Arias MD PCP - General Family Medicine 09/04/[address] [place] [address] documented as of this encounter
--- OUTSIDE RECORDS SUMMARY | 2022-04-25 13:50 | XMS_ITS | Encounter Summary ---
:1940 Author Organization [facility] Address [address] [place] [address] Phone Care Team Providers Name Role Phone Fabian Arias MD Primary Care Provider Encounter Details Date Type Department Care Team Description 10/28/2019 Treatment [facility] Provider, Yung External [address] [place] [address] Social History Tobacco Use Types Packs/Day Years Used Date Smoking Tobacco: Never Assessed Sex Assigned at Date Recorded Not on file documented as of this encounter Miscellaneous Notes External Note - Aps External Provider - 10/28/2019 12:00 AM CDT Patient Name: Zamzam Garibay : 1940 Chart #: [id number] Date: Oct 28, 2019 10/28/2019 Height: 5 ft 3 in Weight: 104.6 lbs BMI: 18.5 Temperature: 96.7 F Blood Pressure: 138/80 mm Hg (Right Arm Sitting) 136/80 mm Hg (Right Arm Standing) Pulse: Right radial Sitting at 64 bpm Oxygen Saturation: 100% (Left Hand) Oxygen Delivery: Room Air Ceci Santos Supervisor Engraving [ Signed And locked electronically On 10/28/2019 at 01:11:34 PM ] Transcribed: Ceci Santos Supervisor Engraving ( 10/28/2019 ) documented in this encounter Plan of Treatment Not on filedocumented as of this encounter Visit Diagnoses Not on filedocumented in this encounter Care Teams Edger Runner Relationship Specialty Start Date End Date Fabian Arias MD PCP - General Family Medicine 09/04/[address] [place] [address] documented as of this encounter
--- OUTSIDE RECORDS SUMMARY | 2022-04-25 13:50 | XMS_ITS | Encounter Summary ---
:1940 Author Organization [facility] Address [address] [place] [address] Phone Care Team Providers Name Role Phone Fabian Arias MD Primary Care Provider Encounter Details Date Type Department Care Team Description 03/28/2021 Treatment [facility] Yomi Dalal, TENTS ASSEMBLER [address] [place] [address] [place], [place] [phone] (Wo rk) Social History Tobacco Use Types Packs/Day Years Used Date Smoking Tobacco: Never Assessed Sex Assigned at Date Recorded Not on file documented as of this encounter Miscellaneous Notes Dialysis Note - Yomi Dalal APN - 03/28/2021 12:51 PM CDT Patient Name: Zamzam Garibay : 1940 Chart #: [id number] Date: Mar 28, 2021 The patient was seen on dialysis rounds at 12:51 PM. A review of the following core parameters of the dialysis treatment was made. The dialysis prescription was reviewed and renewed as noted below. Dialysis Prescription Review DAY SPA MANAGER: LOCATION: SCHEDULE: Vascular Access Surveillance: [facility] Peripheral Arterial Disease Screening Dialysis Adequacy Assessment X URR goals met. URR target not achieved but addressed with patient and staff. Interdialytic weight gain acceptable. High interdialytic weight gain-addressed with patient. Prescription compliance goals met. Cramping noted and optimal weight addressed. Anemia Assessment Anemia targets met. X Erythropoietin adjustments made per protocol. Erythropoietin dosing requires more than 10,000 units per treatment. EPO non-responder workup ordered. X Iron loading and maintenance protocol ordered. Patient non responsive to EPO due to co-morbid disease. Bone and Mineral Metabolism X Calcium and phosphorus control good. Hypercalcemia is noted. Hypocalcemia is noted. Hyperphosphatemia noted. PTH level within target range. X PTH level is high. PTH level is low. Sensipar ordered. Phoslo ordered. Renvela ordered. Velphoro ordered. Fosrenol ordered. X Change in Hectorol/Calcitriol according to protocol. Nutrition Assessment Nutrition appears adequate. X Patient malnourished-caloric intake addressed. X Referred to dietitian. Vascular Access Assessment Current access is permanent and functioning well. Pain in access reported. Numbness reported. Swelling noted adjacent to access. Ischemia noted distal to access. New access developing-awaiting use. Patient referred for access interventional assessment. Patient referred to surgery for vascular access creation. Patient referred to surgery for vascular access revision. Physical X Blood pressure control acceptable. Blood pressure too high-addressed with patient. Blood pressure too low-addressed with patient. Edema present. X Edema not present. Additional Information: New to HD Center: New sx: no issues today, BP 154/90, P 76. Labs: PTH up, start or titrate Calcitriol per protocol. Albumin low. Hgb low, titrate CARIE, Iron per protocol. Other labs stable. Plan: monitor PTH, encourage protein. Monitor H and H. Yomi Dalal NP [ Signed And locked electronically On 03/28/2021 at 12:53:27 PM ] Eliud Duque [ Reviewed And Signed electronically On 04/04/2021 at 01:03:17 PM ] Transcribed: Yomi Dalal ( 03/28/2021 ) documented in this encounter Plan of Treatment Not on filedocumented as of this encounter Visit Diagnoses Not on filedocumented in this encounter Care Teams Sodder Relationship Specialty Start Date End Date Fabian Arias MD PCP - General Family Medicine 09/04/[address] [place] [address] documented as of this encounter
--- OUTSIDE RECORDS SUMMARY | 2022-04-25 13:50 | XMS_ITS | Encounter Summary ---
:1940 Author Organization [facility] Address [address] [place] [address] Care Team Providers Name Role Phone Fabian Arias MD Primary Care Provider Encounter Details Date Type Department Care Team Description 04/05/2021 Orders Only [facility] O f Landon Zarate MD [address] [place] [address] [place], [place] [phone] (Wo rk) Social History Tobacco Use [...] 04/07/2021 Unless otherwise specified, test(s) performed at: [facility], [address] [place] [address] SENIOR HEALTH EDUCATOR: Carl Paula M.D. For any questions, please call customer service at FREQUENCY:MONTHLY Resulting Agency Comment Specimen source: Plasma Landon Calvert MD LAB BLOOD ORDERABLES Performing Organization Address City/State/ZIP Code Phon e Number [facility] documented in this encounter Visit Diagnoses Not on filedocumented in this encounter Care Teams Med Dir Relationship Specialty Start Date End Date Fabian Arias MD PCP - General Family Medicine 09/04/[address] [place] [address] documented as of this encounter
--- OUTSIDE RECORDS SUMMARY | 2022-04-25 13:50 | XMS_ITS | Encounter Summary ---
:1940 Author Organization [facility] Address [address] [place] [address] Care Team Providers Name Role Phone Louis Reyes MD Primary Care Provider Clinic, Not Listed Unavailable Unavailable Encounter Details Date Type Department Care Team Description 04/24/2022 Travel Social History Tobacco Use Types Packs/Day Years Used Date Smoking Tobacco: Every Day Smokeless Tobacco: Never Alcohol Use Standard Drinks/Week Comments Never 0 (1 standard drink = 0.6 oz pure alcoho l) Sex Assigned at Date Recorded Not on file COVID-19 Exposure Response Date Recorded In the last 10 days, have you been in contact with No / Unsu re 04/24/2022 4:39 PM CDT someone who was confirmed or suspected to have Coronavirus/COVID-19? documented as of this encounter Plan of Treatment Upcoming Encounters Date Type Specialty Care Team Description 04/27/2022 Hospital Encounter Sonya Cardenas MD [address] [place], [place] [address] (Wo rk) 04/27/2022 Surgery Surgery Sonya Cardenas MD RIGHT UPPER GRAFT VERSUS [address] F[address] [place], [place] [address] (Wo rk) Scheduled Procedures Name Priority Associated Diagnoses Date/Time CREATION: ROSA BASBARRY dx. endstage renal dis ease 04/27/2022 10:15 AM CDT A-V FISTULA FIRST/SECOND STAGE documented as of this encounter Visit Diagnoses Not on filedocumented in this encounter Care Teams Coupon Clerk Relationship Specialty Start Date End Date Louis Reyes MD PCP - General 01/30/221999 [place] [address] Clinic, Not Listed PCP - Primary Care Clinic 01/30/22 documented as of this encounter
--- OUTSIDE RECORDS SUMMARY | 2022-04-25 13:50 | XMS_ITS | Encounter Summary ---
:1940 Author Organization [facility] Address [address] [place] [address] Phone Care Team Providers Name Role Phone Fabian Arias MD Primary Care Provider Encounter Details Date Type Department Care Team Description 10/30/2016 Treatment [facility] Ramirez Duffy MD [address] [place] [address] [place], [place] [phone] (Wo rk) Social History Tobacco Use Types Packs/Day Years Used Date Smoking Tobacco: Never Assessed Sex Assigned at Date Recorded Not on file documented as of this encounter Progress Notes Ramirez Duffy MD - 10/30/2016 12:00 AM CDT Patient Name: Zamzam Garibay : 1940 Chart #: [id number] Date: October 30, 2016 Referring MD: Faiban Arias MD Chief Complaint GIOVANNI/CKD III History of Present Illness 75 yo wo w h/o recent diagnosis HTN is here for evaluation of GIOVANNI. No recent hospitalizations or ER visits. Denies h/o recent use of NSAIDS, denies gross hematuria, dysuria or hemoptysis. Denies Nate edema. C/o left ankle pain off and on. Noted to have elevated creatinine up to [...] tablet by mouth twice a day 10/30/2016 colchicine 0.6 mg tablet Take 1/2 tablet by mouth once a day as needed for pain 10/30/2016 Allergy List Allergen Reaction Onset Date nkda Review of Systems General: Patient reports no fatigue, fever or significant changes in weight. HEENT: Patient reports no issues with vision [...] Physical Exam Vital Signs - [As of 10/30/2016] 10/30/2016 Height: 5 ft 3 in Weight: 122.6 lbs BMI: 21.7 Temperature: 97.8 F Blood Pressure: 138/88 mm Hg (Right Arm Sitting) 140/90 mm Hg (Right Arm Standing) Pulse: Right radial Sitting at 88 bpm DAFTX Lab Results WEIGHT-lbs 10/30/2016 122.6 lbs 09/20/2016 121.6 lbs 09/20/2016 121.6 lbs Constitutional: awake, alert [...] and mood. Lymphatic: no adenopathy. 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 1. Acute kidney Injury vs. CKD III with mild proteinuria, differentials include hypertensive nephrosclerosis, ischemic nephropathy vs. GN. Urine Prot/creat is not available. Avoid NSAIDS, maintain riskfactor control. w/u for paraproteiniemia. 2. HTN essential uncontrolled, add carvedilol 3.125 mg BID. 3. Ankle pain check uric acid level, possibly gout, trial of colchicine 0.6 mg once daily 4. Tobacco smoking, smoking cessation discussed, cutting down Plan To summarize I have started her carvedilol 3.125 mg BID, colchicine 0.6 mg daily for 6 days eRx sent, Follow up in about 3-4 months. Thank you for the opportunity to participate in Ms. Garibay's care, please do not hesitate to call for any questions or changes. Thanks again. Copy of labs and notes: MD Ramirez Regan MD [ Signed And locked electronically On 10/30/2016 at 10:35:12 AM ] Transcribed: Ramirez Duffy ( 10/30/2016 ) documented in this encounter Plan of Treatment Not on filedocumented as of this encounter Visit Diagnoses Not on filedocumented in this encounter Care Teams Lubricating Machine Tender Relationship Specialty Start Date End Date Fabian Arias MD PCP - General Family Medicine 09/04/[address] [place] [address] documented as of this encounter
--- OUTSIDE RECORDS SUMMARY | 2022-04-25 13:50 | XMS_ITS | Encounter Summary ---
:1940 Author Organization [facility] Address [address] [place] [address] Phone Care Team Providers Name Role Phone Fabian Arias MD Primary Care Provider Encounter Details Date Type Department Care Team Description 04/01/2021 Orders Only [facility] Eliud Duque MD [address] [place] [address] [place], [place] [phone] (Wo rk) Social History Tobacco Use [...] 04/04/2021 Unless otherwise specified, test(s) performed at: [facility], [address] [place] [address] Rd, [place], [place] [address] MOLDER PUNCH: Vicente Flores M.D., Ph.D For any questions, please call customer service at FREQUENCY:OTHER Resulting Agency Comment Specimen source: Blood Eliud Duque MD LAB BLOOD ORDERABLES Performing Organization Address City/State/ZIP Code Phon e Number APS SPECTRA [facility] documented in this encounter Visit Diagnoses Not on filedocumented in this encounter Care Teams Card Room Manager Relationship Specialty Start Date End Date Fabian Arias MD PCP - General Family Medicine 09/04/[address] [place] [address] documented as of this encounter
--- OUTSIDE RECORDS SUMMARY | 2022-04-25 13:50 | XMS_ITS | Encounter Summary ---
:1940 Author Organization [facility] Address [address] [place] [address] Phone Care Team Providers Name Role Phone Fabian Arias MD Primary Care Provider Encounter Details Date Type Department Care Team Description 12/06/2017 Treatment [facility] Ramirez Duffy MD [address] [place] [address] [place], [place] [phone] (Wo rk) Social History Tobacco Use Types Packs/Day Years Used Date Smoking Tobacco: Never Assessed Sex Assigned at Date Recorded Not on file documented as of this encounter Miscellaneous Notes Office Communication Note - Ramirez Duffy MD - 12/06/2017 1:04 PM CDT Patient Name: Zamzam Garibay : 1940 Chart #: [id number] Date: Dec 06, 2017 Office Communication removed by avtar without comment on Dec 13 2017 10:22:56:750A. Office Communication FROM: Ramirez Duffy MD TO: Starla Gallo SUBJECT: Cindi Garibay ([id number]) This pt does not seem to have f/u appointment Ramirez Duffy MD [ Signed And locked electronically On 12/06/2017 at 01:04:27 PM ] Transcribed: Ramirez Duffy MD ( 12/06/2017 ) documented in this encounter Plan of Treatment Not on filedocumented as of this encounter Visit Diagnoses Not on filedocumented in this encounter Care Teams Potato Sorter Relationship Specialty Start Date End Date Fabian Arias MD PCP - General Family Medicine 09/04/[address] [place] [address] documented as of this encounter
--- OUTSIDE RECORDS SUMMARY | 2022-04-25 13:50 | XMS_ITS | Encounter Summary ---
:1940 Author Organization [facility] Address [address] [place] [address] Care Team Providers Name Role Phone Fabian Arias MD Primary Care Provider Encounter Details Date Type Department Care Team Description 04/12/2021 Orders Only [facility] Landon Zarate MD [address] [place] [address] [place], [place] [phone] (Wo rk) Social History Tobacco Use [...] 04/13/2021 Unless otherwise specified, test(s) performed at: [facility], [address] [place] [address] SUPERVISOR NET MAKING: Carl Paula M.D. For any questions, please call customer service at FREQUENCY:OTHER Resulting Agency Comment Specimen source: Blood Landon Calvert MD LAB BLOOD ORDERABLES Performing Organization Address City/State/ZIP Code Phon e Number APS SPECTRA [facility] documented in this encounter Visit Diagnoses Not on filedocumented in this encounter Care Teams Vice President And Portfolio Manager Relationship Specialty Start Date End Date Fabian Arias MD PCP - General Family Medicine 09/04/[address] [place] [address] documented as of this encounter
--- OUTSIDE RECORDS SUMMARY | 2022-04-25 13:50 | XMS_ITS | Encounter Summary ---
:1940 Author Organization [facility] Address [address] [place] [address] Phone Care Team Providers Name Role Phone Fabian Arias MD Primary Care Provider Encounter Details Date Type Department Care Team Description 03/09/2021 Orders Only [facility] Eliud Duque MD [address] [address] [place], [place] [phone] (Wo rk) Social History Tobacco Use [...] and its performa nce characteristics determined by [facility]. It has not been cleared or approved [...] 03/20/2021 Unless otherwise specified, test(s) performed at: [facility], [address] [place], [place] [address], [place] [address] BULK SYSTEM OPERATOR: Vicente Flores M.D., Ph.D For any questions, please call customer service at FREQUENCY:MONTHLY Resulting Agency Comment Specimen source: Serum Eliud Duque MD LAB BLOOD ORDERABLES Performing Organization Address City/State/ZIP Code Phon e Number APS SPECTRA [facility]FTX documented in this encounter Visit Diagnoses Not on filedocumented in this encounter Care Teams Bench Worker Binding Relationship Specialty Start Date End Date Fabian Arias MD PCP - General Family Medicine 09/04/[address] [place] [address] documented as of this encounter
--- OUTSIDE RECORDS SUMMARY | 2022-04-25 13:50 | XMS_ITS | Encounter Summary ---
:1940 Author Organization [facility] Address [address] [place] [address] Phone Care Team Providers Name Role Phone Fabian Arias MD Primary Care Provider Encounter Details Date Type Department Care Team Description 09/20/2016 Treatment [facility] Provider, Aps External [address] [place] [address] Social History Tobacco Use Types Packs/Day Years Used Date Smoking Tobacco: Never Assessed Sex Assigned at Date Recorded Not on file documented as of this encounter Miscellaneous Notes External Note - Aps External Provider - 09/20/2016 12:00 AM CDT Patient Name: Zamazm Garibay : 1940 Chart #: [id number] Date: Sep 20, 2016 09/20/2016 Height: 5 ft 3 in Weight: 121.6 lbs BMI: 21.5 Temperature: 98 F Blood Pressure: 150/90 mm Hg (Left Arm Sitting) Pulse: Left radial Sitting at 88 bpm Chel Dennis [ Signed And locked electronically On 09/20/2016 at 10:49:25 AM ] Transcribed: Gabriella Jimenez Railway Signal Technician ( 09/20/2016 ) documented in this encounter Plan of Treatment Not on filedocumented as of this encounter Visit Diagnoses Not on filedocumented in this encounter Care Teams Mobile Web Application Developer Relationship Specialty Start Date End Date Fabian Arias MD PCP - General Family Medicine 09/04/[address] [place] [address] documented as of this encounter
--- OUTSIDE RECORDS SUMMARY | 2022-04-25 13:50 | XMS_ITS | Encounter Summary ---
:1940 Author Organization [facility] Address [address] [place] [address] Phone Care Team Providers Name Role Phone Fabian Arias MD Primary Care Provider Encounter Details Date Type Department Care Team Description 12/28/2019 Treatment [facility] Provider, Aps External [address] [place] [address] Social History Tobacco Use Types Packs/Day Years Used Date Smoking Tobacco: Never Assessed Sex Assigned at Date Recorded Not on file documented as of this encounter Miscellaneous Notes External Note - Aps External Provider - 12/28/2019 12:00 AM CDT Patient Name: Zamzam Garibay : 1940 Chart #: [id number] Date: Dec 28, 2019 12/28/2019 Height: 5 ft 3 in Weight: 108.6 lbs BMI: 19.2 Temperature: 98.8 F Blood Pressure: 136/84 mm Hg (Left Arm Sitting) 134/84 mm Hg (Left Arm Standing) Pulse: Left radial Sitting at 83 bpm Oxygen Saturation: 99% (Left Hand) Oxygen Delivery: Room Air Ceci Santos Ammonium Nitrate Crystallizer [ Signed And locked electronically On 12/28/2019 at 12:58:10 PM ] Transcribed: Chel Johnson Assistant ( 12/28/2019 ) documented in this encounter Plan of Treatment Not on filedocumented as of this encounter Visit Diagnoses Not on filedocumented in this encounter Care Teams Body Joiner Relationship Specialty Start Date End Date Fabian Arias MD PCP - General Family Medicine 09/04/[address] [place] [address] documented as of this encounter
--- OUTSIDE RECORDS SUMMARY | 2022-04-25 13:50 | XMS_ITS | Encounter Summary ---
:1940 Author Organization [facility] Address [address] [place] [address] Care Team Providers Name Role Phone Fabian Arias MD Primary Care Provider Encounter Details Date Type Department Care Team Description 04/26/2021 Orders Only [facility] Landon Zarate MD [address] [place] [address] [place], [place] [phone] (Wo rk) Social History Tobacco Use [...] 04/27/2021 Unless otherwise specified, test(s) performed at: [facility], [address] [place] [address] ICE CREAM FREEZER: Carl Paula M.D. For any questions, please call customer service at FREQUENCY:OTHER Resulting Agency Comment Specimen source: Blood Landon Calvert MD LAB BLOOD ORDERABLES Performing Organization Address City/State/ZIP Code Phon e Number APS SPECTRA [facility] documented in this encounter Visit Diagnoses Not on filedocumented in this encounter Care Teams Manager Dialysis Relationship Specialty Start Date End Date Fabian Arias MD PCP - General Family Medicine 09/04/[address] [place] [address] documented as of this encounter
--- OUTSIDE RECORDS SUMMARY | 2022-04-25 13:50 | XMS_ITS | Encounter Summary ---
:1940 Author Organization [facility] Address [address] [place] [address] Phone Care Team Providers Name Role Phone Fabian Arias MD Primary Care Provider Encounter Details Date Type Department Care Team Description 02/21/2017 Treatment [facility] Provider, Aps External [address] [place] [address] Social History Tobacco Use Types Packs/Day Years Used Date Smoking Tobacco: Never Assessed Sex Assigned at Date Recorded Not on file documented as of this encounter Miscellaneous Notes External Note - Aps External Provider - 02/21/2017 12:00 AM CDT Patient Name: Zamzam Garibay : 1940 Chart #: [id number] Date: Feb 21, 2017 02/21/2017 Height: 5 [...] on filedocumented in this encounter Care Teams Chief Station Engineer Relationship Specialty Start Date End Date Fabian Arias MD PCP - General Family Medicine 09/04/[address] [place] [address] documented as of this encounter
--- OUTSIDE RECORDS SUMMARY | 2022-04-25 13:50 | XMS_ITS | Encounter Summary ---
:1940 Author Organization [facility] Address [address] [place] [address] Phone Care Team Providers Name Role Phone Fabian Arias MD Primary Care Provider Encounter Details Date Type Department Care Team Description 02/28/2017 Treatment [facility] Cara Potts [address] [place] [address] [place], [place] [phone] (Wo rk) Social History Tobacco Use Types Packs/Day Years Used Date Smoking Tobacco: Never Assessed Sex Assigned at Date Recorded Not on file documented as of this encounter Miscellaneous Notes Clinical/Nursing Note - Cara Potts - 02/28/2017 12:00 AM CDT Patient Name: Zamzam Garibay : 1940 Chart #: [id number] Date: Feb 28, 2017 Pt called states [...] on filedocumented in this encounter Care Teams Mcat Instructor Relationship Specialty Start Date End Date Fabian Arias MD PCP - General Family Medicine 09/04/[address] [place] [address] documented as of this encounter
--- OUTSIDE RECORDS SUMMARY | 2022-04-25 13:50 | XMS_ITS | Encounter Summary ---
:1940 Author Organization [facility] Address [address] [place] [address] Phone Care Team Providers Name Role Phone Fabian Arias MD Primary Care Provider Encounter Details Date Type Department Care Team Description 08/05/2020 Orders Only [facility] [address] [place] [address] Social History Tobacco Use Types Packs/Day Years Used Date Smoking Tobacco: Smoker, Current Cigarettes Started: 07/01/1976 Status Unknown Sex Assigned at Date Recorded Not on file documented as of this encounter Plan of Treatment Not on filedocumented as of this encounter Visit Diagnoses Not on filedocumented in this encounter Care Teams Advertising Sales Representative Relationship Specialty Start Date End Date Fabian Arias MD PCP - General Family Medicine 09/04/[address] [place] [address] documented as of this encounter
--- OUTSIDE RECORDS SUMMARY | 2022-04-25 13:50 | XMS_ITS | Encounter Summary ---
:1940 Author Organization [facility] Address [address] [place] [address] Phone Care Team Providers Name Role Phone Fabian Arias MD Primary Care Provider Encounter Details Date Type Department Care Team Description 01/06/2021 Documentation Only [facility] Robert Newell, [address] [place] [address] [place] [phone] (Wo rk) Social History Tobacco Use Types Packs/Day Years Used Date Smoking Tobacco: Smoker, Current Cigarettes Started: 07/01/1976 Status Unknown Sex Assigned at Date Recorded Not on file documented as of this encounter Plan of Treatment Not on filedocumented as of this encounter Visit Diagnoses Not on filedocumented in this encounter Care Teams Marketing Area Manager Relationship Specialty Start Date End Date Fabian Arias MD PCP - General Family Medicine 09/04/[address] [place] [address] documented as of this encounter
--- OUTSIDE RECORDS SUMMARY | 2022-04-25 13:50 | XMS_ITS | Encounter Summary ---
:1940 Author Organization [facility] Address [address] [place] [address] Phone Care Team Providers Name Role Phone Fabian Arias MD Primary Care Provider Encounter Details Date Type Department Care Team Description 03/16/2021 Treatment [facility] Yomi Dalal APN [address] [place] [address] [place], [place] [phone] (Wo rk) Social History Tobacco Use Types Packs/Day Years Used Date Smoking Tobacco: Smoker, Current Cigarettes Started: 07/01/1976 Status Unknown Sex Assigned at Date Recorded Not on file documented as of this encounter Miscellaneous Notes Dialysis Note - Yomi Dalal APN - 03/16/2021 11:42 AM CDT Patient Name: Zamzam Garibay : 1940 Chart #: [id number] Date: Mar 16, 2021 The patient was seen on dialysis rounds at 11:42 AM. A review of the dialysis treatment, blood pressure, estimated dry weight and recent lab values was made. These were discussed with the patient and dialysis staff. CUSTOMER RELATIONS ASSISTANT: LOCATION: SCHEDULE: Vascular Access Surveillance: [facility] Peripheral [...] filedocumented in this encounter Care Teams Manager Treasury Relationship Specialty Start Date End Date Fabian Arias MD PCP - General Family Medicine 09/04/[address] [place] [address] documented as of this encounter
--- OUTSIDE RECORDS SUMMARY | 2022-04-25 13:50 | XMS_ITS | Encounter Summary ---
:1940 Author Organization [facility] Address [address] [place] [address] Care Team Providers Name Role Phone Fabian Arias MD Primary Care Provider Encounter Details Date Type Department Care Team Description 05/03/2021 Treatment [facility] Landon Zarate MD [address] [place] [address] [place], [place] [phone] (Wo rk) Social History Tobacco Use Types Packs/Day Years Used Date Smoking Tobacco: Never Assessed Sex Assigned at Date Recorded Not on file documented as of this encounter Miscellaneous Notes Dialysis Note - Landon Calvert MD - 05/03/2021 12:25 PM CDT Date: May 03, 2021 Patient Name: Zamzam Garibay : 1940 Chart #: [id number] Sex: F This patient was personally seen [...] AM ) BP (sit): 158/63 AP(-) / BRIDGES SUPERVISOR: 205/139 Pulse: 76 Chairside data as of [...] 0.5 mcg ORAL Every Treatment 04/10/2021 04/09/2022 FINANCIAL SYSTEMS MANAGER: Landon Calvert MD LOCATION: [phone] SCHEDULE: M-W-F 2nd Shift EDW: kg. DIALYZER: HD DURATION: NEEDLE SIZE: ANTICOAG: BATH: QB: ml/min QD: ml/min Subjective 05/03/21: Zamzam says she is so thankful to be here. She feels excellent and is very happy with her living situation. She has no concerns at all and is doing great on HD. 04/26/21: She was hospitalized briefly at [facility] for dyspnea, no pneumonia but rather related to CHF. She saw cardiology in follow-up in clinic, lisinopril and metoprolol and lasix with UF on HD to dry weight recommended. She is not interested in home dialysis, discussed today. 04/12/21: Patient new to me. She followed with aluminizer in [facility], did not follow-up,crashed into dialysis in [...] mouth once a day 04/12/2021 RenaPlex-D (vit b,q-jo-jyub-selen-vit d3-e) 800 mcg-12.5 mg-2,000 unit tablet Take [...] above goal. Intact PTH is above goal. Fusing Machine Operator will adjust binders and vitamin D [...] on filedocumented in this encounter Care Teams Extension Service Specialist Relationship Specialty Start Date End Date Fabian Arias MD PCP - General Family Medicine 09/04/[address] [place] [address] documented as of this encounter
--- OUTSIDE RECORDS SUMMARY | 2022-04-25 13:50 | XMS_ITS | Encounter Summary ---
:1940 Author Organization [facility] Address [address] [place] [address] Phone Care Team Providers Name Role Phone Fabian Arias MD Primary Care Provider Encounter Details Date Type Department Care Team Description 09/20/2016 Treatment [facility] Ramirez Duffy MD [address] [place], [place] [phone] [place], [place] [phone] (Wo rk) Social History Tobacco Use Types Packs/Day Years Used Date Smoking Tobacco: Never Assessed Sex Assigned at Date Recorded Not on file documented as of this encounter Progress Notes Ramirez Duffy MD - 09/20/2016 12:00 AM CDT Patient Name: Zamzam Garibay : 1940 Chart #: [id number] Date: Sep 20, 2016 Nephrology consultation dictated. [...] Name: Zamzam Garibay : 1940 Chart #: [id number] Date: Sep 20, 2016 09/20/2016 Height: 5 [...] on filedocumented in this encounter Care Teams Plastic Boat Buffer Relationship Specialty Start Date End Date Fabian Arias MD PCP - General Family Medicine 09/04/[address] [place] [address] documented as of this encounter
--- OUTSIDE RECORDS SUMMARY | 2022-04-25 13:50 | XMS_ITS | Encounter Summary ---
:1940 Author Organization [facility] Address [address] [place] [address] Phone Care Team Providers Name Role Phone Fabian Arias MD Primary Care Provider Encounter Details Date Type Department Care Team Description 03/28/2021 Orders Only [facility] Eliud Duque MD [address] [address] [place], [place] [phone] (Wo rk) Social History Tobacco Use [...] 03/29/2021 Unless otherwise specified, test(s) performed at: [facility], [address] [place] [address], [place], [place] [address] OUTPATIENT INTERVIEWING CLERK: Vicente Flores M.D., Ph.D For any questions, please call customer service at FREQUENCY:OTHER Resulting Agency Comment Specimen source: Serum Eliud Duque MD LAB BLOOD ORDERABLES Performing Organization Address City/State/ZIP Code Phon e Number APS SPECTRA [facility] documented in this encounter Visit Diagnoses Not on filedocumented in this encounter Care Teams Supervisor Smoke Control Relationship Specialty Start Date End Date Fabian Arias MD PCP - General Family Medicine 09/04/[address] [place] [address] documented as of this encounter
--- OUTSIDE RECORDS SUMMARY | 2022-04-25 13:50 | XMS_ITS | Encounter Summary ---
:1940 Author Organization [facility] Address [address] [place] [address] Care Team Providers Name Role Phone Louis [...] 04/27/2022 Hospital Encounter Sonya Cardenas MD [address] [place], [place] [address] (Wo rk) 04/27/2022 Surgery Surgery Sonya Cardenas MD RIGHT UPPER GRAFT VERSUS [address] A[address] FIST[address] [place], [place] [address] (Wo rk) Scheduled Procedures Name Priority Associated Diagnoses Date/Time CREATION: ROSA BASBARRY dx. endstage renal dis ease 04/27/2022 10:15 AM CDT A-V FISTULA FIRST/SECOND STAGE documented as of this encounter Visit Diagnoses Not on filedocumented in this encounter Care Teams Make Up Arranger Relationship Specialty Start Date End Date Louis Reyes MD PCP - General 01/30/221999 [place] [address] Clinic, Not Listed PCP - Primary Care Clinic 01/30/22 documented as of this encounter
--- OUTSIDE RECORDS SUMMARY | 2022-04-25 13:50 | XMS_ITS | Encounter Summary ---
:1940 Author Organization [facility] Address [address] [place] [address] Phone Care Team Providers Name Role Phone Fabian Arias MD Primary Care Provider Encounter Details Date Type Department Care Team Description 03/16/2021 Orders Only [facility] Eliud Duque MD [address] [address] [place] [phone] (Wo rk) Social History Tobacco Use [...] 03/20/2021 Unless otherwise specified, test(s) performed at: [facility], [address] [place] [address], [place] [id number] PANEL EDGE PAINTER: Vicente Flores M.D., Ph.D For any questions, please call customer service at FREQUENCY:MONTHLY Resulting Agency Comment Specimen source: Plasma Eliud Duque MD LAB BLOOD ORDERABLES Performing Organization Address City/State/ZIP Code Phon e Number [facility] SPECT[facility] DAFTX TRACE ELEMENTS (03/16/2021) athologist Signature Aluminum <5 0 - 10 [facility] mcg/L DAFTX Comment: This test was developed and its performa nce characteristics determined by [facility]. It has not been cleared or approved [...] 03/21/2021 Unless otherwise specified, test(s) performed at: [facility], [address] [place] [address], [place] [id number] PANEL EDGE PAINTER: Vicente Flores M.D., Ph.D For any questions, please call customer service at FREQUENCY:MONTHLY Resulting Agency Comment Specimen source: Serum Eliud Duque MD LAB BLOOD ORDERABLES Performing Organization Address City/[facility] Phon e Number APS SPECTRA DAFTX (ABNORMAL) [...] 03/22/2021 Unless otherwise specified, test(s) performed at: [facility], [address] [place] [address], [place] 913433 PANEL EDGE PAINTER: Vicente Flores M.D., Ph.D For any questions, please call customer service at FREQUENCY:MONTHLY Resulting Agency Comment Specimen source: Blood Eliud Duque MD LAB BLOOD ORDERABLES Performing Organization Address City/[facility] Phon e Number APS SPECTRA DAFTX (ABNORMAL) Spectrae Chemistry (03/16/2021) P athologist Signature PTH 608 (H) 16 - 80 [facility]PS [facility]PECTRA pg/mL DAFTX Specimen (Source) Anatomical Collection Method Collection Time Re ceived Time Location / / Volume Laterality 03/16/2021 03/20/2021 11:2 0 AM CDT Narrative [facility]PECT[facility] - 03/20/2021 Unless otherwise specified, test(s) performed at: [facility], [address] [place] [address], [place] [id number] PANEL EDGE PAINTER: Vicente Flores M.D., Ph.D For any questions, please call customer service at FREQUENCY:MONTHLY Resulting Agency Comment Specimen source: Plasma Eliud Duque MD LAB BLOOD ORDERABLES Performing Organization Address City/[facility] Phon e Number APS SPECTRA DAFTX IMMUNO [...] APS SPECTRA DAFTX (ABNORMAL) Spectrae Chemistry (03/16/2021) [facility] Method Time Signature Ferritin 348 [...] 03/20/2021 Unless otherwise specified, test(s) performed at: [facility], [address] [place] [address], [place] [address]03107 PANEL EDGE PAINTER: Vicente Flores M.D., Ph.D For any questions, please call customer service at FREQUENCY:MONTHLY Resulting Agency Comment Specimen source: Serum Eliud Duque MD LAB BLOOD ORDERABLES Performing Organization Address City/State/ZIP Code Phon e Number [facility] documented in this encounter Visit Diagnoses Not on filedocumented in this encounter Care Teams Pediatric Neurologist Relationship Specialty Start Date End Date Fabian Arias MD PCP - General Family Medicine 09/04/[address] [place] [address] documented as of this encounter
--- OUTSIDE RECORDS SUMMARY | 2022-04-25 13:50 | XMS_ITS | Encounter Summary ---
:1940 Author Organization [facility] Address [address] [place] [address] Phone Care Team Providers Name Role Phone Fabian Arias MD Primary Care Provider Encounter Details Date Type Department Care Team Description 12/04/2020 Orders Only [facility] Chronic kidne y disease, Stage V (HCC); Consultants MD Dinesh Stage 5 chronic kidney disease (HCC); [address] Essential (primary) hypertension; [address] [place], [place] Anemia in chronic kidney dis ease; [place] [address] Secondary hyperparathyroidism of renal o rigin ([facility]) [phone] Social History Tobacco Use Types Packs/Day Years [...] rigin documented in this encounter Care Teams Solar Maintenance Technician Relationship Specialty Start Date End Date Fabian Arias MD PCP - General Family Medicine 09/04/[address] [place] [address] documented as of this encounter
--- OUTSIDE RECORDS SUMMARY | 2022-04-25 13:50 | XMS_ITS | Encounter Summary ---
:1940 Author Organization [facility] Address [address] [place] [address] Phone Care Team Providers Name Role Phone Fabian Arias MD Primary Care Provider Encounter Details Date Type Department Care Team Description 10/30/2016 Treatment [facility] Asha Herrera [address] [place] [address] [place], [place] [phone] (Wo rk) Social History Tobacco Use Types Packs/Day Years Used Date Smoking Tobacco: Never Assessed Sex Assigned at Date Recorded Not on file documented as of this encounter Miscellaneous Notes External Note - Asha Herrera - 10/30/2016 12:00 AM CDT Patient Name: Zamzam Garibay : 1940 Chart #: [id number] Date: October 30, 2016 10/30/2016 Height: 5 [...] on filedocumented in this encounter Care Teams Programmable Logic Controller Assembler Relationship Specialty Start Date End Date Fabian Arias MD PCP - General Family Medicine 09/04/[address] [place] [address] documented as of this encounter
--- OUTSIDE RECORDS SUMMARY | 2022-04-25 13:50 | XMS_ITS | Encounter Summary ---
:1940 Author Organization [facility] Address [address] [place] [address] Phone Care Team Providers Name Role Phone Fabian Arias MD Primary Care Provider Encounter Details Date Type Department Care Team Description 02/21/2017 Treatment [facility] Ramirez Duffy MD [address] [place] [address] [place], [place] [phone] (Wo rk) Social History Tobacco Use Types Packs/Day Years Used Date Smoking Tobacco: Never Assessed Sex Assigned at Date Recorded Not on file documented as of this encounter Progress Notes Ramirez Duffy MD - 02/21/2017 12:00 AM CDT Patient Name: Zamzam Garibay : 1940 Chart #: [id number] Date: Feb 21, 2017 Referring MD: Fabian Arias MD Chief Complaint CKD III History of Present Illness 76 yo wo w h/o recent diagnosis HTN is here for evaluation of GIOVANNI. No recent hospitalizations or ER visits. Denies h/o recent use of NSAIDS, denies gross hematuria, dysuria or hemoptysis. Denies Nate edema. C/o left ankle pain off and on. Works [employer]. Noted to have elevated creatinine up to [...] on filedocumented in this encounter Care Teams Web Applications Programmer Relationship Specialty Start Date End Date Fabian Arias MD PCP - General Family Medicine 09/04/20 [address] [place] [address] documented as of this encounter
--- OUTSIDE RECORDS SUMMARY | 2022-04-25 13:50 | XMS_ITS | Encounter Summary ---
:1940 Author Organization [facility] Address [address] [place] [address] Phone Care Team Providers Name Role Phone Fabian Arias MD Primary Care Provider Encounter Details Date Type Department Care Team Description 06/02/2020 Treatment [facility] Kaia Chavez [address] [address] [place], [place] [phone] (Wo rk) Social History Tobacco Use Types Packs/Day Years Used Date Smoking Tobacco: Never Assessed Sex Assigned at Date Recorded Not on file documented as of this encounter Miscellaneous Notes External Note - Kaia Chavez - 06/02/2020 12:00 AM CST Patient Name: Zamzam Garibay : 1940 Chart #: [id number] Date: Jun 02, 2020 06/02/2020 Height: 5 [...] on filedocumented in this encounter Care Teams Executive Wellness Programs Director Relationship Specialty Start Date End Date Fabian Arias MD PCP - General Family Medicine 09/04/[address] [place] [address] documented as of this encounter
--- OUTSIDE RECORDS SUMMARY | 2022-04-25 13:50 | XMS_ITS | Encounter Summary ---
:1940 Author Organization [facility] Address [address] [place] [address] Phone Care Team Providers Name Role Phone Fabian Arias MD Primary Care Provider Reason for Referral Consultation (Routine) - Closed Specialty Diagnoses / Procedures Referred By Contact Refer red To Contact Nephrology Diagnoses Chronic kidney disease, Stage V (HCC) Fabian Arias MD Kennedy, Shane W, MD [address] [place] [phone] Referral ID Status Reason Start Date Expiration Date Visits V isits Requested Authorized [id number] Closed Consult and 07/29/2020 11/25/2020 4 4 Treat AND PHYSICS INSTRUCTOR Encounter Details Date Type Department Care Team Description 08/05/2020 Transcribe Orders [facility] MD Fabian disease, Stage V [address] (HCC) (Primary Dx) [place], [place] [address] [address] [place] [address] Social History Tobacco Use Types [...] V documented in this encounter Care Teams Head Of Science Relationship Specialty Start Date End Date Fabian Arias MD PCP - General Family Medicine 09/04/[address] [place] [address] documented as of this encounter
--- OUTSIDE RECORDS SUMMARY | 2022-04-25 13:50 | XMS_ITS | Clinical Summary ---
:1940 Author Organization [facility] Address [address] [place] [address] Care Team Providers Name Role Phone Louis [...] mg oral extended release tablet 24 HR Cholecalciferol, Take 1 tablet by 0 Active Vitamin D3, 50 mcg mouth. (2,000 unit) oral capsule furosemide (LASIX) 80 Take 80 mg by mouth 0 09/02/19 21 Active mg oral tablet twice a day. omeprazole (PRILOSEC) Take by mouth 0 09/06/2021 Active 20 mg oral delayed Daily. release capsule Active Problems Problem Noted Date ESRD (end stage renal disease) 02/02/2022 Encounters Date Type Specialty Care Team Description 04/24/2022 Travel 02/02/2022 Hospital Encounter Sonya Cardenas MD ESR D (end stage renal disease) ([facility]) 02/02/2022 Travel 01/30/2022 Travel from Last 3 [...] was confirmed or suspected to have Coronavirus/COVID-19? Last Filed Vital Signs Vital Sign Reading [...] PM CDT Height 160 cm (5' 3) 04/24/2022 4:41 PM CDT Body Mass Index 20.9 02/02/2022 11:10 AM CDT Plan of Treatment Upcoming Encounters Date Type Specialty Care Team Description 04/27/2022 Hospital Encounter Sonya Cardenas MD [address] [place], [place] [address] (Wo rk) 04/27/2022 Surgery Surgery Sonya Cardenas MD RIGHT UPPER GRAFT VERSUS [address] A[address] [place], [place] [address] (Wo rk) Scheduled Procedures Name Priority Associated Diagnoses Date/Time CREATION: BREMARIA ESTHERIA BASILIC dx. endstage renal dis ease 04/27/2022 10:15 AM CDT A-V FISTULA FIRST/SECOND STAGE Health Maintenance Due Date Last Done Comments Colonoscopy 1940 Dexa Scan 1940 Hepatitis C Screening 1940 Lipid Screening 1940 COVID-19 Vaccine (#1) 06/28/1941 Pneumococcal 65+ (1 - PCV) 1946 Adult Tetanus Booster 1961 Zoster Vaccine (1 of 2) 1961 Influenza Vaccine (#1) 2022 Yearly Review of HCD 04/04/2023 04/04/2022, 01/10/2022 Procedures Procedure Name Priority Date/Time Associated [...] HEP BS ANTIGEN Non-React Non-React ATELLICA 02/02/2022 [facility] [place] ANALYZER 2:17 PM CDT HEALTH LABORATORY Specimen Anatomical Collection Method Collection Time Receive d Time (Source) Location / / Volume Laterality Blood 02/02/2022 1:17 PM 2 1:34 CDT PM CDT Chadwick Lai MD IMMUNOLOGY ORDERABLE Performing Organization Address City/State/ZIP Code Phon e Number [facility] [address] [place], [place] [address] [address] LABORATORY IntraOp Note (02/02/2022 9:36 AM CDT) [...] Type & Screen (02/02/2022 8:18 AM CDT) [facility] Method Time Signature GROUP AND RH O Positive 02/02/2022 [facility] 9:32 AM CDT HEALTH LABORATORY ANTIBODY Negative 02/02/2022 [facility] SCREEN 9:32 AM CDT HEALTH LABORATORY Specimen Anatomical Collection Method / Collection Time Recei asim Time (Source) Location / Volume Laterality Blood LEFT UPPER ARM Venipuncture / 02/02/2022 8:18 02/03/20 22 8:23 STRUCTURE / Unknown AM CDT AM CDT Unknown Sonya Cardenas MD BLOOD BANK ORDERABLE Performing Organization Address City/State/ZIP Code Phon e Number [facility] [place] [address] [place] [address] [place] [address] [place] [address] LABORATORY (ABNORMAL) Potassium (02/02/2022 8:18 AM CDT)Only the most recent of2 results within the time period is included. athologist Signature POTASSIUM 5.9 (H) 3.4 - 5.1 ATELLICA 02/02/2022 [facility] mmol/L ANALYZER 8:46 AM CDT HEALTH LABORATORY Specimen Anatomical Collection Method / Collection Time Recei asim Time (Source) Location / Volume Laterality Blood LEFT UPPER ARM Venipuncture / 02/02/2022 8:18 02/03/20 22 8:25 STRUCTURE / Unknown AM CDT AM CDT Unknown Sp Vickers MD CHEMISTRY ORDERABLE Performing Organization Address City/State/ZIP Code Phon e Number [facility] [address] [place] [address] [phone] LABORATORY Protime/INR (02/02/2022 8:18 AM CDT)Only the most recent of2 resultswithin the time period is included. P athologist Signature INR 1.0 0.9 - 1.2 02/02/2022 [facility] 9:10 AM T [facility] LABORATORY Specimen Anatomical Collection Method / Collection Time Recei asim Time (Source) Location / Volume Laterality Blood LEFT UPPER ARM Venipuncture / 02/02/2022 8:18 02/03/20 22 8:25 STRUCTURE / Unknown AM CDT AM CDT Unknown Sp Vickers MD COAGULATION ORDERABLE Performing Organization Address City/[facility]/ZIP Code Phon e Number [facility] [address] [place] [address] LABORATORY (ABNORMAL) Partial Thromboplastin Time (02/02/2022 8:18 AM CDT)Only the most recent of2 resultswithin the time period is included. P athologist Signature PTT 40.7 (H) 24.0 - 31.0 02/02/2022 [facility] SEC. 9:10 AM T [facility] LABORATORY Specimen Anatomical Collection Method / Collection Time Recei asim Time (Source) Location / Volume Laterality Blood LEFT UPPER ARM Venipuncture / 02/02/2022 8:18 02/03/20 22 8:25 STRUCTURE / Unknown AM CDT AM CDT Unknown Narrative [facility] LABORATORY - 02/02 9:10 AM CDT aPTT Therapeutic Reference Ranges: Argatroban protocol: 60 - 85 seconds Bivalirudin protocol: 43 - 71 seconds Sp Vickers MD COAGULATION ORDERABLE Performing Organization Address City/[facility]/ZIP Code Phon e Number [facility] [address] [place] [address] LABORATORY ABORh Confirm (Lab Use Only) (02/02/2022 8:14 AM CDT) Patholo gist Method Time Signature GROUP AND RH O Positive 02/02/2022 [facility] 10:06 AM CDT HEALTH LABORATORY Specimen Anatomical Collection Method Collection Time Receive d Time (Source) Location / / Volume Laterality Blood 02/02/2022 8:14 AM 9:50 CDT AM CDT Chadwick Lai MD BLOOD BANK ORDERABLE Performing Organization Address City/State/ZIP Code Ph[place] [address] [place] [address] [address] [place] [address] LABORATORY COVID 19 (External) (01/29/2022) [facility] Time Signature COVID 19 Not Not (External) Detected. Detected. Specimen (Source) Anatomical Location Collection Method / Collectio n Time Received Time / Laterality Volume 01/29/2022 Unknown IMMUNOLOGY ORDERABLE from Last 3 Months Insurance Payer Benefit Plan Subscriber ID Effective Phone Address Typ e / Group Dates [facility] MEDICARE [id number] 2021-Pres [address] [facility] [place] [address] [place] [address] (Home) [place] [address] Advance Directives For more information, please contact: [phone] Latest Code Status on File Code Status Date Activated Date Inactivated Comments Full Code 02/02/2022 9:21 AM 02/03/2022 1:53 AM How was code status determined? Patient Care Teams Chairman And Ceo Relationship Specialty Start Date End Date Louis Reyes MD PCP - General 01/30/221999 [place] [address] Clinic, Not Listed PCP - Primary Care Clinic 01/30/22
--- OUTSIDE RECORDS SUMMARY | 2022-04-25 13:50 | XMS_ITS | Encounter Summary ---
:1940 Author Organization [facility] Address [address] [place] [address] Care Team Providers Name Role Phone Fabian Arias MD Primary Care Provider Encounter Details Date Type Department Care Team Description 05/10/2021 Orders Only [facility] Landon Zarate MD [address] [place] [address] [place], [place] [phone] [address] (Wo rk) Social History Tobacco Use [...] / Volume Laterality 05/10/2021 05/11/2021 9:50 PM ROD FILLER Narrative [facility]RA [facility] - 05/12/2021 Unless otherwise specified, test(s) performed at: [facility], [address] [place] [address] VIDEO EDITOR: Carl Paula M.D. For any questions, please call customer service at FREQUENCY:OTHER Resulting Agency Comment Specimen source: Blood Landon Calvert MD LAB BLOOD ORDERABLES Performing Organization Address City/[facility] Phon e Number [facility]PS SPECTRA [facility] Spectrae Chemistry (05/10/2021) P athologist Signature Ferritin 250 10 - 291 APS SPECTRA ng/mL [facility] Specimen (Source) Anatomical Collection Method Collection Time Re ceived Time Location / / Volume Laterality 05/10/2021 05/11/2021 11:5 5 PM ROD FILLER Narrative [facility]PS SPECTRA [facility] - 05/12/2021 Unless otherwise specified, test(s) performed at: [facility], [address] [place] [address] VIDEO EDITOR: Carl Paula M.D. For any questions, please call customer service at FREQUENCY:OTHER Resulting Agency Comment Specimen source: Serum Landon Calvert MD LAB BLOOD ORDERABLES Performing Organization Address City/[facility] Phon e Number [facility]PS SPECTRA [facility] documented in this encounter Visit Diagnoses Not on filedocumented in this encounter Care Teams Group President Relationship Specialty Start Date End Date Fabian Arias MD PCP - General Family Medicine 09/04/[address] [place] [address] documented as of this encounter
--- OUTSIDE RECORDS SUMMARY | 2022-04-25 13:50 | XMS_ITS | Encounter Summary ---
:1940 Author Organization [facility] Address [address] [place] [address] Phone Care Team Providers Name Role Phone Fabian Arias MD Primary Care Provider Encounter Details Date Type Department Care Team Description 10/28/2019 Treatment [facility] Robert Newell MD [address] [address] [place] [phone] (Wo rk) Social History Tobacco Use Types Packs/Day Years Used Date Smoking Tobacco: Never Assessed Sex Assigned at Date Recorded Not on file documented as of this encounter Progress Notes Robert Newell MD - 10/28/2019 12:00 AM CDT Patient Name: Zamzam Garibay : 1940 Chart #: [id number] Date: Oct 28, 2019 Referring MD: Fabian Arias MD Chief Complaint CKD III History of Present Illness 78 year old woman with a history of hypertension and chronic renal failure who was recently seen by me at [facility] with acute on chronic renal [...] on filedocumented in this encounter Care Teams Scheduler Conveyor Relationship Specialty Start Date End Date Fabian Arias MD PCP - General Family Medicine 09/04/[address] [place] [address] documented as of this encounter
--- OUTSIDE RECORDS SUMMARY | 2022-04-25 13:50 | XMS_ITS | Encounter Summary ---
:1940 Author Organization [facility] Address [address] [place] [address] Care Team Providers Name Role Phone Fabian Arias MD Primary Care Provider Encounter Details Date Type Department Care Team Description 04/12/2021 Treatment [facility] Landon Zarate MD [address] [place] [address] [place], [place] [phone] (Wo rk) Social History Tobacco Use Types Packs/Day Years Used Date Smoking Tobacco: Never Assessed Sex Assigned at Date Recorded Not on file documented as of this encounter Miscellaneous Notes Dialysis Note - Landon Calvert MD - 04/12/2021 11:33 AM CDT Date: Apr 12, 2021 Patient Name: Zamzam Garibay : 1940 Chart #: [id number] Sex: F This patient was personally seen for a complete visit as part of routine monthly dialysis care. A review of the dialysis treatment, blood pressure, estimated dry weight and recent lab values was made. These were discussed with the patient and staff as necessary. Treatment Data for 04/12/2021 started at:10:01 AM Dialyzer: 160NRe Optiflux Na: 137 mEq/L Bicarb: 35 mEq/L Dialysate: 3.0 K, 2.25 Ca, 1.0 Mg, 100 Dextrose (G3231) Dialysate/Machine Temp (prescribed): 37 C Dialysate/Machine Temp (actual): 36.4 C BFR (prescribed): 400 BFR (actual): 400 Prescribed time: 04:00 EDW: 40 kg Access Type: Active (In Use):CVCatheter-Tunneled/Chest Pre Dialysis Vitals (for 04/12/2021 9:53 AM ) Pre BP (sit): 124/76 Pre Wt: 45.1 kg Temp: 96.4 F Post Dialysis Vitals (for 04/10/2021 2:02 PM ) Post BP (sit): 112/55 Post Wt: 42.1 kg Current Dialysis Vitals (for 04/12/2021 10:32 AM ) BP (sit): 121/60 AP(-) / SENIOR TEST ENGINEER: 178/122 Pulse: 78 Chairside data as of 04/12/2021 10:32 AM Last 3 Treatments 04/10/2021 04/07/2021 04/05/2021 EDW (kg) 40 40 40 Weight Pre (kg) 44.9 45.4 47 Weight Post (kg) 42.1 43.1 43.9 Dialytic Weight Loss (kg) -2.8 -2.3 -3.1 EDW Deviation (kg) 2.1 3.1 3.9 BP Sit Pre 135/84 135/72 141/63 BP Sit Post 112/55 128/62 123/56 UF Rate (mL/kg/hr) 17 15 19 Prescribed BFR 400 400 400 Average Delivered BFR 400 390 400 Prescribed Treatment Time 04:00 04:00 04:00 Actual Treatment Time 04:05 03:57 04:03 FRAME WIRER: Landon Calvert MD LOCATION: [place] [phone] SCHEDULE: -- 2nd Shift EDW: kg. DIALYZER: HD DURATION: NEEDLE SIZE: ANTICOAG: BATH: QB: ml/min QD: ml/min Subjective 04/12/21: Patient new to me. She followed with software developer consultant in [facility], did not follow-up,crashed into [...] mature Medication List Medication Sig Start Date calcitriol 0.25 mcg capsule TAKE 1 CAPSULE (0.25 MCG TOTAL) BY MOUTH EVERY DAY escitalopram oxalate 5 mg tablet TAKE 1 TABLET (5 MG TOTAL) BY MOUTH EVERY DAY furosemide 80 mg tablet TAKE 1 TABLET (80 MG TOTAL) BY MOUTH TWO(2) TIMES DAILY hydralazine 50 mg tablet TAKE 1 TAB (50 MG TOTAL) BY MOUTH THREE(3) TIMES DAILY Allergy List Allergen Reaction Reaction Severity Onset Date nkda Medications reviewed with changes as indicated below. Will update, she is also on omeprazole and trazadone and needs dialysis MV Treatment and Adequacy Assessment Dialysis is adequate. Achieves prescribed time - Yes Achieves prescribed frequency - Yes Continue current prescription. Lower time to 3.5hrs Vascular Access Assessment Type of access: Catheterand LUE AVF Anemia Assessment Hemoglobin is below goal. Will adjust CARIE and intravenous iron per protocol. No Venofer, reaction Nutritional and Metabolic Assessment Albumin is below goal. Potassium is at goal. Bicarbonate is at goal. Continue same bicarbonate in dialysate. Bone and Mineral Metabolism Assessment Corrected Calcium is below goal. Phosphorous is above goal. Intact PTH is above goal. Platen Press Operator will adjust binders and vitamin D per protocol and continue to provide dietary education. Start Phoslo and calcitriol Cardiovascular Assessment Blood pressures reviewed and are acceptable. Intradialytic weight gains are appropriate. Estimated dry weight is too low, will increase. Continue same cardiovascular medications. Set to off weight today, looks euvolemic but will be slightly above listed EDW it looks like Transplant Status: Resuscitation Status New patient to dialysis in Jan, new here this month. Going well so far Protocols in place, will follow labs closely Discussed dialysis diet, fluid restriction, maturing access and doing exercises She will get PCP at [facility] CHF - I would like to do TTE after establishing PCP given hx of CHF, unclear history as she reports no [place] or stents or heart surgeries previously. I will help arrange TTE after this. May need med adjustments. Pending results, may need to have see cardiology. Discussed importance of limiting fluid gains on dialysis. HTN - controlled, appears euvolemic now and continue hydralazine 25mg bid Anemia - got iron, had reaction to venofer so stopped. Trend Hgb Landon Calvert MD [ Signed And locked electronically On 04/12/2021 at 11:42:12 AM ] Transcribed: Landon Calvert ( 04/12/2021 ) Dialysis Note - Landon Calvert MD - 04/12/2021 10:51 AM CDT Date: Apr 12, 2021 Patient Name: Zamzam Garibay : 1940 Chart #: [id number] Sex: F Patient Type: ESRD Modality: Hemodialysis Forensic Anthropologist: Landon Calvert MD Location: [place] [phone] Schedule: M-W-F 2nd Shift Initial Access Date Regular Chronic Dialysis Began: 02/27/2021Initial Modality: Hemodialysis Initial Access used on first patient dialysis: Catheter - No Reason Selected Current Access Access used for current outpatient dialysis: Catheter - No Reason Selected Most recent History and Physical: 04/12/2021 Landon Calvert MD [ Signed And locked electronically On 04/12/2021 at 09:51:38 AM ] Transcribed: Landon Calvert MD ( 04/12/2021 ) documented in this encounter Plan of Treatment Not on filedocumented as of this encounter Visit Diagnoses Not on filedocumented in this encounter Care Teams Gem Carver Relationship Specialty Start Date End Date Fabian Arias MD PCP - General Family Medicine 09/04/[address] [place] [phone] documented as of this encounter
--- OUTSIDE RECORDS SUMMARY | 2022-04-25 13:50 | XMS_ITS | Encounter Summary ---
:1940 Author Organization [facility] Address [address] [place] [address] Phone Care Team Providers Name Role Phone Fabian Arias MD Primary Care Provider Reason for Visit Consultation (Routine) - Closed Specialty Diagnoses / Procedures Referred By Contact Refer red To Contact Nephrology Diagnoses Chronic kidney disease, Stage V (HCC) Fabian Arias MD Kennedy, Shane W, MD [address] [place] [phone] Referral ID Status Reason Start Date Expiration Date Visits V isits Requested Authorized [id number] Closed Consult and 07/29/2020 11/25/2020 4 4 Treat Encounter Details Date Type Department Care Team Description 09/05/2020 Office Visit [facility] Robert Newell Stage 5 chron ic kidney disease (HCC) (Primary Dx); Consultants MD Dinesh Chronic kidney disease, Stage V (HCC); [address] Essential (primary) hypertension; [address] [place], [place] Anemia in chronic kidney dis ease; [place] [address] Secondary hyperparathyroidism of renal o rigin ([facility]) [phone] Social History Tobacco Use Types Packs/Day Years Used Date Smoking Tobacco: Smoker, Current Cigarettes Started: 07/01/1976 Status Unknown Sex Assigned at Date Recorded Not on file documented as of this encounter Last Filed Vital Signs Vital Sign Reading Time Taken Comments Blood Pressure 130/80 09/05/2020 1:08 PM HVAC ENGINEERING TECHNICIAN Pulse 87 09/05/2020 1:08 PM HVAC ENGINEERING TECHNICIAN Temperature - - Respiratory Rate - - Oxygen Saturation 98% 09/05/2020 1:08 PM HVAC ENGINEERING TECHNICIAN Inhaled Oxygen Concentration - - Weight 48.5 kg (107 lb) 09/05/2020 1:08 PM HVAC ENGINEERING TECHNICIAN Height 160 cm (5' 3) 09/05/2020 1:08 PM HVAC ENGINEERING TECHNICIAN Body Mass Index 18.95 09/05/2020 1:08 PM HVAC ENGINEERING TECHNICIAN documented in this encounter Progress Notes Robert Newell MD - 09/05/2020 1:15 PM CST Images from the original note were not included. [facility] [address] [place] [phone] Office Visit Patient Name: Cnidi Garibay, Female Date of : 1940, 79 y.o. Medical Record: [id number] Date: 09/05/2020 Ref Provider: Fabian Arias MD PCP: FABIAN ARIAS MD (General) Reason for Visit: History of Present Illness Cindi Garibay is a 79 y.o. female with a history of hypertension and chronic renal failure who was recently seen by me at [facility] with acute on chronic renal failure and [...] any questions or changes. Robert Newell MD [facility] [address] [place] [address] documented in this encounter Plan of Treatment [...] Chronic kidney disea se, Stage Expected: V ([facility]) 12/04/2020 Stage 5 chronic kidney disea se (Approximate), (HCC) Expires: Essential (primary) 10/07/19 22 hypertension Anemia in chronic kidney disease Secondary hyperparathyroidis m of renal origin (HCC) Protein, Total, Random Lab Routine Chronic kidney dis ease, Stage Expected: Urine w/Creatinine V ([facility]) 12/04/2020 (Protein/Creat Ratio) Stage 5 chronic kid martin disease (Approximate), (HCC) Expires: Essential (primary) 10/07/19 22 hypertension Anemia in chronic kidney disease Secondary hyperparathyroidis m of renal origin (HCC) Urinalysis with Lab Routine Chronic kidney disease, S tage Expected: microscopic V ([facility]) 12/04/2020 Stage 5 chronic kidney disea se (Approximate), (HCC) Expires: Essential (primary) 10/07/19 22 hypertension Anemia in chronic kidney disease Secondary hyperparathyroidis m of renal origin ([facility]) Uric Acid Lab Routine Chronic kidney disease, Stag e Expected: V ([facility]) 12/04/2020 Stage 5 chronic kidney disea [...] rigin documented in this encounter Care Teams Insulator Helper Relationship Specialty Start Date End Date Fabian Arias MD PCP - General Family Medicine 09/04/[address] [place] [address] documented as of this encounter
--- OUTSIDE RECORDS SUMMARY | 2022-04-25 13:50 | XMS_ITS | Encounter Summary ---
:1940 Author Organization [facility] Address [address] [place] [address] Phone Care Team Providers Name Role Phone Fabian Arias MD Primary Care Provider Encounter Details Date Type Department Care Team Description 03/09/2021 Treatment [facility] Robert Newell MD [address] [place] [address] [place], [place] [phone] (Wo rk) Social History Tobacco Use Types Packs/Day Years Used Date Smoking Tobacco: Smoker, Current Cigarettes Started: 07/01/1976 Status Unknown Sex Assigned at Date Recorded Not on file documented as of this encounter Plan of Treatment Not on filedocumented as of this encounter Visit Diagnoses Not on filedocumented in this encounter Care Teams Pricing Lead Relationship Specialty Start Date End Date Fabian Arias MD PCP - General Family Medicine 09/04/[address] [place] [address] documented as of this encounter
--- OUTSIDE RECORDS SUMMARY | 2022-04-25 13:51 | XMS_ITS | Encounter Summary ---
:1940 Author Organization [facility] Address [address] [place] [address] Phone Care Team Providers Name Role Phone Unavailable Primary Care Provider Unavailable Encounter Details Date Type Department Care Team Description 05/31/2021 Documentation Only Acute Dialysis Barby Cox [address] [place], [place] [phone] Social History Tobacco Use Types Packs/Day Years Used Date Smoking Tobacco: Never Assessed Sex Assigned at Date Recorded Not on file COVID-19 Exposure Response Date Recorded In the last month, have you been in contact with No / Unsure 05/29/2021 6:33 AM MONTESSORI LEAD TEACHER someone who was confirmed or suspected to have Coronavirus / COVID-19? documented as of this encounter Progress Notes Barby Cox - 05/31/2021 6:42 AM CST Discharge paperwork faxed to chronic dialysis. Adán Cox ESSORI LEAD TEACHER documented in this encounter Plan of Treatment Not on filedocumented as of this encounter Visit Diagnoses Not on filedocumented in this encounter
--- OUTSIDE RECORDS SUMMARY | 2022-04-25 13:51 | XMS_ITS | Encounter Summary ---
:1940 Author Organization [facility] Address [address] [place] [address] Phone Care Team Providers Name Role Phone Unavailable Primary Care Provider Unavailable Reason for Visit Reason Comments Shortness of Breath Auth/Cert Specialty Diagnoses / Procedures Referred By Contact Refer red To Contact CARDIOLOGY Diagnoses SOB (shortness of breath) Yomi Milligan Care 2 Card Renal Inpt MD Candace [address] [facility] [address] [place], [place] [address] [id number] [place], [place] [address] [place] [address] Fax: Referral ID Status Reason Start Date Expiration Date Visits Requ ested Visits Authorized [id number] 1 1 Encounter Details Date Type Department Care Team Description 05/29/2021 - Hospital Encounter [facility] Cardiac & Binu Young MD [address] [facility] [address] [place], [place] [address] SOB (shortness of 05/30/2021 Renal 2 Yomi Milligan MD [address] [place], [place] [address] breath) 701 Jp Velasco MD [address] [address] [id number] [place] [address] Social History Tobacco Use Types Packs/Day Years Used Date Smoking Tobacco: Never Assessed Sex Assigned at Date Recorded Not on file COVID-19 Exposure Response Date Recorded In the last month, have you been in contact with No / Unsure 05/29/2021 6:33 AM OSS ARCHITECT someone who was confirmed or suspected to have Coronavirus / COVID-19? documented as of this encounter Last Filed Vital Signs Vital Sign Reading Time Taken Comments Blood Pressure 123/66 05/30/2021 7:37 AM OSS ARCHITECT Pulse 87 05/29/2021 11:13 PM OSS ARCHITECT Temperature 36.9 ??C (98.5 ??F) 05/30/2021 7:37 AM OSS ARCHITECT Respiratory Rate 20 05/30/2021 7:37 AM OSS ARCHITECT Oxygen Saturation 95% 05/30/2021 7:37 AM OSS ARCHITECT Inhaled Oxygen Concentration - - Weight 43 kg (94 lb 12.8 oz) 05/29/2021 6:00 PM OSS ARCHITECT Height 160 cm (5' 3) 05/29/2021 6:00 PM OSS ARCHITECT Body Mass Index 16.79 05/29/2021 6:00 PM OSS ARCHITECT documented in this encounter Discharge Summaries Jp [...] ESRD on HD (M/W/F), CHF, presented to [facility] [place] a transferfrom [place] for evaluation of shortness of breath, hypoxia. The patient was noted to be initially hypoxic to 80% on RA at OSH, where she was placed on O2 via facemask with improvement. She was noted to be hypertensive to 160s systolic. She was given duo nebs x2, calcium gluconate and BiPAP, started on nitro drip to [facility] STAB room. Chest x-ray concerning for right middle/lower lobe pneumonia versus pulmonary edema, patient was started on Ceftriaxone and Azithromycin. Eventually able to be weaned off of nitro drip, started on LABEL DESIGNER blood pressure medications. She was dialyzed in [...] on CXR 05/29 Patient initially presented to [place] emergency department for shortness of breath that [...] likely related to salty food intake at [facility] last week. - No further antibiotic regimen indicated at this time. - Recommended abstaining from salty food intake. Plan to continue LABEL DESIGNER blood pressure medications - Per Epic, pt s/p Prevnar 13 on 03/28/21, unclear if she received PPSV23 previously. Discussed with patient, who does not recall Prevnar 13 vaccination or any subsequent vaccinations. Recommended PPSV23 8+ weeks after [id number] (likely some time in May) and 5 years later, however patient states she is not interested in any further vaccinations. Recommended follow up with her PCP for further discussion regarding PPSV23 vaccination. ESRD on HD Hyperkalemia, resolved Patient typically dialyzes MWF at [facility] via R IJ Permcath. EDW 45kg. Followed by death claim clerk Dr. Calvert of [facility]. Last dialyzed here on 05/29 and had 2.5kg taken off at that time, newEDW approximately 43kg. Patient noted to be hyperkalemic in the ED to 5.7, for which she was given 3g calcium gluconate and Lokelma 10mg while in the ED. Repeat K 4.3 on today's AM labs. - Continue M/W/F dialysis schedule - Continue LABEL DESIGNER phoslo, nephrocaps, calcitriol Congestive Heart Failure HTN [...] subsequent improvement in respiratory status. - Continue LABEL DESIGNER Lasix, Lisinopril, Metoprolol Elevated Troponin Patient with initial elevated troponin to 444 on arrival, since downtrending -> 363 -> 353. Likely demand ischemia in setting of acute hypoxia. No further troponins indicated. Anemia of CKD Patient with chronic anemia of CKD, Hgb has remained stable ~9. No evidence of active bleeding. - Continue LABEL DESIGNER epo PERTINENT STUDIES & CONSULTS: Chest XR [...] 8:17 PM Staff Physician Division of Nephrology ARCHITECT documented in this encounter Medications at Time [...] questions. Chris Ball RN, 05/30/2021 11:23 AM ARCHITECT Sierra Calabrese RN - 05/29/2021 4:39 PM [...] complications. Sierra Calabrese RN, 05/29/2021 4:39 PM ARCHITECT documented in this encounter H&P Notes Jp Crowder MD - 05/29/2021 10:48 AM CST MEDICINE HISTORY AND PHYSICAL Jaz Garibay : 1940 Sex: female Patient Summary: Jaz Garibay is a 80 y.o. female with history significant for ESRD on HD (M/W/F), CHF, presents as transfer from [place] for evaluation of shortness of breath, hypoxia. [...] vs pulmonary edema Patient initially presenting to [place] ER for SOB since earlier this AM, [...] HD Hyperkalemia Patient typically dialyzes MWF at [facility] via R IJ Permcath. EDW 45kg. Followed by death claim clerk Dr. Calvert of [facility]. Last dialyzed 05/26. Patient noted to be hyperkalemic in the ED to 5.7. Patient otherwise with non-concerning EKG. Not shifted in the ED given plan for patient to dialyzetoday, patient otherwise given 3g calcium gluconate and Lokelma 10g x while in the ED. - Continue M/W/F dialysis schedule, dialyzed today from the ED - Continue LABEL DESIGNER phoslo, nephrocaps, calcitriol Congestive Heart Failure HTN [...] subsequent improvement in respiratory status. - Continue LABEL DESIGNER Lasix, Lisinopril, Metoprolol Elevated Troponin Patient with [...] Denies illicit substance abuse Recently moved to [place] from [place], [place]; Lives with son at home in [place] Family History: Sister - ESRD Sister - [...] 7:01 PM Staff Physician Division of Nephrology ARCHITECT documented in this encounter Consult Notes Bryce [...] to note: -- no changes made to LABEL DESIGNER medications I have reviewed the patient's medications for discharge and have discussed the necessary changes with the provider. Changes have been made and medication list updated and complete. Please page with any questions. Bryce Ricketts PharmD 05/30/2021 11:00 For questions regarding this note, please contact pharmacist on service at PharmD Nephrology & OB/L&D/Children'S Literature Professor ([employer]) or [phone]. If no response within needed timeframe, please contact central pharmacy via phone at [phone]. ARCHITECT documented in this encounter ED Notes Binu [...] few days. Is dialysis patient. Hypoxic at leland 80s, responded to 10l facemask O2. Does [...] dialysis. Plan dialysis and admit further management. ARCHITECT Eloise Ayala PA-C - 05/29/2021 5:19 PM [...] PMH/o ESRD HD MWF presents initially to [place] with shortness of breath, hypoxic to 80s [...] OXIMETRY-CONT (ED/PACU/L&D/OR/IR) ??? PERIPHERAL IV ??? Call Chart Snatcher if unable to maintain SBP/MAP while on [...] employee: No Is the patient a Kun ([facility]) Employee: No TROP 4H Result [...] were discussed with Attending Emergency Medicine Physician. ARCHITECT Janessa Dennis RN - 05/29/2021 4:54 PM CST Pt returning from dialysis, her run was three hours. ARCHITECT Janessa Dennis RN - 05/29/2021 3:37 PM [...] Provider Report Called to: Renal team (05/29/21 0832) RN: Janessa Dennis RN Extension #: [id number] ARCHITECT Janessa Dennis RN - 05/29/2021 10:25 AM [...] (05/29/21816) RN: Janessa Dennis RN Extension #: [id number] ARCHITECT Cara Kennedy PA-C - 05/29/2021 9:08 AM [...] treatment. Cara Kennedy PA-C, 05/29/2021 9:08 AM ARCHITECT Yomi Carpenter PA-C - 05/29/2021 7:24 AM CST ED Provider Note Jaz Garibay : 1940 Sex: female Patient Arrival Date and Time: 05/29/2021 6:15 AM TRANSFER OF CARE NOTE HPI & ED Course: 80 y.o. female with PMH of ESRD, presents with SOB to [facility], was [facility]. Initially was tripodding with sats in low 80s, given 2 duonebs and nitro started, sodium bicarb and calcium at OSH. She normally dialyzes MWF; nitro was at 60 mcg when she got to [facility] room. Bps 160s. Sent here with [...] calcium gluconate if needed. She was moved [facility] to wait for admission. Signed out to Brent JUNG with plans to follow up on recommendations from renal team and admit for PNA, K 5.5. Her nitro drip was turned off before she was moved down to [facility]. Initial trop 400s, denies chest pain. Will get repeat delta troponin but at this time suspect demand, does not seem consistent with ACS. Assessment and plan discussed with faculty physician. Final assessment: 1. SOB (shortness of breath) Yomi Carpenter PA-C, 05/29/2021 8:08 AM ARCHITECT Juliana Cason, WIN - 05/29/2021 7:13 AM CST Bed: A03 Expected date: Expected time: Means of arrival: Comments: Stab 2 ARCHITECT Binu James RN - 05/29/2021 6:41 AM CST Pt BIBA transfer from [place] ER for SOB. Pt had been tripoding with 81% SpO2. 20g PIV in L AC. Pt given 2 duonebs, nitroglycerin infusion started, calcium gluconate, sodium bicarb and ativan at OSH. Pt on dialysis MWF. Nitroglycerine infusion at 60mcg upon arrival to [facility] and pt's SBP 160s-18 0s.Dialysis fistula R arm and dialysis port L upper chest. Pt transported with 10Lpm O2 with face mask. ARCHITECT documented in this encounter Miscellaneous Notes Interval Note Provider - Livan Kiran MD - 05/30/2021 12:25 PM OSS ARCHITECT [facility] Division of Nephrology Red Renal Service Discharge Dialysis Orders Jaz Garibay Date of : 1940 Dialysis Unit: [facility] Primary Chart Snatcher: Dr. Calvert Date of Admission: 05/29/2021 Date [...] form: Livan Kiran MD, 05/30/2021 12:25 PM ARCHITECT Nursing Assessment - Aaliyah Davis RN - [...] Emotional State: Acceptance Family Behavior: not present ARCHITECT Nursing Assessment - Jeannette Peterson RN - [...] -- -- -- Psychosocial Within Defined Limits ARCHITECT Interval Note Provider - Salena Muir MD - 05/29/2021 8:10 AM OSS ARCHITECT Handoff Communication Note for Hospital Admission Verbal handoff received from Yomi Carpenter PA-C in Team Center A, care transferring to Renal B. Patient status: Inpatient Brief summary of handoff from ED/Clinic Staff: 80 year old F with history significant for ESRD on HD (M/W/F) presents as transfer from [place] for evaluation of shortness of breath, found [...] Please page the Renal B Team via [employer] with clinical updates or status changes. Note is for documentation only and not for billing purposes. Salena Muir MD, 05/29/2021 8:11 AM Emergency Medicine / Internal Medicine, PGY1 ARCHITECT ED Stabilization Note - Marilyn Joanna Lizet [...] stable condition. Their care was signed out [id number] with the ED team center provider. Please see their note for the remainder of patient's care while in the emergency department. Sepsis Protocol: NA Clinical Impression 1. SOB (shortness of breath) Disposition To Team Center Joanna Sanders MD PGY3 Emergency Medicine Resident ARCHITECT documented in this encounter Plan of Treatment Not on filedocumented as of this encounter Procedures Procedure Name Priority Date/Time Associated Comments Diagnosis PANEL RENAL STAT 05/30/2021 6:31 AM Results f or this OSS ARCHITECT procedure are i n the results section. PC LAB CBC/PLT Routine 05/30/2021 6:31 AM Results for this OSS ARCHITECT procedure are i n the results section. PC ELECTROLYTES PANEL STAT 05/29/2021 12:05 Re sults for this PM OSS ARCHITECT procedure are i n the results section. PC TROPONIN Timed 05/29/2021 10:31 Results for this QUANTITATIVE AM OSS ARCHITECT procedure are i n the results section. COVID-19 SURVEILLANCE STAT 05/29/2021 9:28 AM Results for this OSS ARCHITECT procedure are i n the results section. PC TROPONIN Timed 05/29/2021 8:38 AM Results f or this QUANTITATIVE OSS ARCHITECT procedure are i n the results section. ED EKG (12-LEAD) Routine 05/29/2021 6:46 AM Resul ts for this OSS ARCHITECT procedure are i n the results section. XR CHEST 1 VIEW AP OR STAT 05/29/2021 6:32 AM Results for this PA* OSS ARCHITECT procedure are i n the results section. EXTRA TUBE - ROME Routine 05/29/2021 6:30 AM Resu lts for this OSS ARCHITECT procedure are i n the results section. EXTRA TUBE - SST Routine 05/29/2021 6:30 AM Resul ts for this OSS ARCHITECT procedure are i n the results section. PC FREE STANDING BLOOD Routine 05/29/2021 6:30 AM Results for this DRAW BY VENIPUNCTURE OSS ARCHITECT procedu re are in the results section. PC TROPONIN STAT 05/29/2021 6:30 AM Results f or this QUANTITATIVE OSS ARCHITECT procedure are i n the results section. PC ELECTROLYTES PANEL STAT 05/29/2021 6:30 AM Results for this OSS ARCHITECT procedure are i n the results section. PC LAB CBC W/DIFF & STAT 05/29/2021 6:30 AM Re sults for this PLT OSS ARCHITECT procedure are i n the results section. TC LAB ER STAT TOTAL STAT 05/29/2021 6:30 AM R esults for this HGB OSS ARCHITECT procedure are i n the results section. PROTHROMBIN (PT) & INR STAT 05/29/2021 6:30 AM Results for this OSS ARCHITECT procedure are i n the results section. PRECAUTIONARY TUBE STAT 05/29/2021 6:30 AM Res ults for this OSS ARCHITECT procedure are i n the results section. PC LACTATE (LACTIC STAT 05/29/2021 6:30 AM Res ults for this ACID) OSS ARCHITECT procedure are i n the results section. HEPATITIS B SURFACE Routine 05/29/2021 6:30 AM Re sults for this ANTIGEN OSS ARCHITECT procedure are i n the results section. HEPATITIS B SURFACE Routine 05/29/2021 6:30 AM Re sults for this ANTIBODY OSS ARCHITECT procedure are i n the results section. PC GASES,BLOOD,ANY STAT 05/29/2021 6:30 AM Res ults for this COMB OF OSS ARCHITECT procedure are i n PH,PCD2,PO2,CO2,HCO2 the res ults section. FIBRINOGEN STAT 05/29/2021 6:30 AM Results f or this OSS ARCHITECT procedure are i n the results section. PC LAB PTT STAT 05/29/2021 6:30 AM Results f or this OSS ARCHITECT procedure are i n the results section. ED US CRITICAL CARE STAT 05/29/2021 6:17 AM Re sults for this OSS ARCHITECT procedure are i n the results section. documented in this encounter Results (ABNORMAL) PANEL RENAL (05/30/2021 6:31 AM OSS ARCHITECT) P athologist Signature Sodium 139 135 - 148 [facility] mEq/L Potassium 4.3 3.5 - 5.3 [facility] mEq/L Chloride 98 92 - 108 [facility] mEq/L CO2 26 22 - 30 [facility] mEq/L AnGap 15 8 - 16 [facility] mEq/L Glucose 81 70 - 100 [facility] mg/dL BUN 37 (H) 8 - 23 [facility] mg/dL Creatinine 4.15 (H) 0.50 - 1.00 [facility] mg/dL Calcium 9.2 8.8 - 10.2 [facility] mg/dL Albumin 4.1 3.8 - 5.1 [facility] g/dL Phosphorus 5.6 (H) 2.5 - 4.5 [facility] mg/dL eGFR, High 11 (L) >=60 [facility] ml/min/1.73 m2 Comment: Calculated using CKD-EPI equati on eGFR, Low 10 (L) >=60 ml/min/1.73m2 [facility] Comment: Calculated using CKD-EPI equati on Specimen Anatomical Collection Method Collection Time Receive d Time (Source) Location / / Volume Laterality Blood 05/30/2021 6:31 AM 7:18 OSS ARCHITECT AM OSS ARCHITECT Binu Young MD LABORATORY Performing Organization Address City/State/ZIP Code Phon e Number [facility] [place] [address] (ABNORMAL) CBC WITH PLATELET (05/30/2021 6:31 AM OSS ARCHITECT) P athologist Signature WBC 4.84 4.00 - [facility] 10.00 k/cmm RBC 3.46 (L) 3.90 - 5.20 [facility] m/cmm Hgb 10.1 (L) 11.5 - 15.7 [facility] g/dL Hematocrit 28.9 (L) 34.0 - 45.0 [facility] % MCV 83.5 80.0 - [facility] 100.0 fL MCH 29.2 25.0 - 32.0 [facility] pg MCHC 34.9 31.0 - 36.0 [facility] g/dL RDW 17.7 (H) 11.5 - 14.5 [facility] % Plt 232 150 - 400 [facility] k/cmm MPV 9.9 6.5 - 12.5 [facility] fL NRBC 0.0 0.0 - 0.0 % [facility] Specimen Anatomical Collection Method Collection Time Receive d Time (Source) Location / / Volume Laterality Blood 05/30/2021 6:31 AM 7:12 OSS ARCHITECT AM OSS ARCHITECT Binu Young MD LABORATORY Performing Organization Address City/State/ZIP Code Phon e Number [facility] [place] [address] (ABNORMAL) ED CHEMISTRY LABS(NA,K,CL,CO2,GLU,CREAT,CA-IONIZED,ANION GAP) (05/29/2021 12:05 PM OSS ARCHITECT) Analysis Performed At Patho logist Time Signature Sodium 138 135 - 148 [facility] mEq/L Chloride 106 92 - 108 [facility] mEq/L AnGap 12 8 - 16 [facility] mEq/L Glucose 129 (H) 70 - 100 [facility] mg/dL ICA, Actual 4.34 (L) 4.40 - [facility] 5.20 mg/dL ICA, pH 4.34 (L) 4.40 - [facility] Corrected 5.20 mg/dL Creatinine 8.08 (H) 0.50 - [facility] 1.00 mg/dL BICARB 20 (L) 22 - 26 [facility] mEq/L eGFR, High 5 (L) >=60 [facility] ml/min/1.7 3m2 Comment: Calculated using CKD-EPI equati on eGFR, Low 4 (L) >=60 ml/min/1.73m2 [facility] Comment: Calculated using CKD-EPI equati on Potassium 5.7 (H) 3.5 - 5.3 mEq/L [facility] Specimen Anatomical Collection Method Collection Time Receive d Time (Source) Location / / Volume Laterality Blood 05/29/2021 12:05 05/29/2021 PM OSS ARCHITECT 12:06 PM OSS ARCHITECT Cara Kennedy PA-C LABORATORY Performing Organization Address City/[facility] Code Phon e Number [facility] [place] [address] (ABNORMAL) TROP 4H (05/29/2021 10:31 AM OSS ARCHITECT) [facility] gist Method Time Signature 4H Trop 352 (H) <=16 ng/L [facility] 4H Delta Indeterminate Not Significant [facility] Specimen Anatomical Collection Method Collection Time Receive d Time (Source) Location / / Volume Laterality Blood 05/29/2021 10:31 05/29/2021 AM OSS ARCHITECT 10:48 AM OSS ARCHITECT Binu Young MD LABORATORY Performing Organization Address City/[facility]/ZIP Code Phon e Number [facility] [place] [address] COVID-19 SURVEILLANCE (05/29/2021 9:28 AM OSS ARCHITECT) [facility] DocumentCloud Method Time Signature COVID-19 Not Detected Not Detected [facility] Specimen (Source) Anatomical Collection Method Collection Time Re ceived Time Location / / Volume Laterality Nasopharyngeal Swab 05/29/2021 9:28 05/29 AM OSS ARCHITECT 9:28 AM OSS ARCHITECT Narrative [facility] - 05/29/2021 9:58 AM OSS ARCHITECT Preferred specimen is Nasopharyngeal swab Is the patient a healthcare employee: No Is the patient a Kun ([facility]) Employee : No Binu Young MD LABORATORY Performing Organization Address City/[facility]/ZIP Code Phon e Number [facility] [place] [address] (ABNORMAL) TROP 2H (05/29/2021 8:38 AM OSS ARCHITECT) [facility] gist Method Time Signature 2H Trop 363 (H) <=16 ng/L [facility] 2H Delta Significant (A) Not [facility] Significant Specimen Anatomical Collection Method Collection Time Receive d Time (Source) Location / / Volume Laterality Blood 05/29/2021 8:38 AM 9:08 OSS ARCHITECT AM OSS ARCHITECT Binu Young MD LABORATORY Performing Organization Address City/[facility]/ZIP Code Phon e Number [facility] [place] [address] ED EKG (12-LEAD) (05/29/2021 6:46 AM OSS ARCHITECT) Specimen (Source) Anatomical Collection Method Collection Time Re ceived Time Location / / Volume Laterality 05/29/2021 6:46 AM OSS ARCHITECT Impressions [facility] CVIS EKG ORDERS - 05/29/2021 6:46 A M OSS ARCHITECT SINUS RHYTHM LEFT ATRIAL ENLARGEMENT ??[-0.15mV P-WAV E IN V1/V2] RIGHT BUNDLE BRANCH BLOCK ??[120+ ms QRS DURATION, UPRIGHT V1, 40+ ms S IN I/aVL/V4/V5/V6] POSSIBLE LEFT VENTRICULAR HYPERTROPHY ?? [VOLTAGE CRITERIA PLUS LAE OR QRS WIDENING] ABNORMAL ECG P-R Interval 144 ms QRS Interval 134 ms QT Interval 432 ms QTC Interval 478 ms P Atwood 64 QRS Atwood 9 T Wave [place] 86 Procedure Note Yomi Milligan MD - [...] 432 ms QTC Interval 478 ms P [place] 64 QRS [place] 9 T Wave [place] 86 Binu Young MD EKG Performing Organization Address City/State/ZIP Code Phon e Number [facility] CVIS EKG ORDERS XR CHEST 1 VIEW AP OR PA* (05/29/2021 6:32 AM OSS ARCHITECT) Anatomical Region Laterality Modality Chest Computed Radiography Specimen (Source) Anatomical Collection Method Collection Time Re ceived Time Location / / Volume Laterality 05/29/2021 6:37 AM OSS ARCHITECT Impressions 05/29/2021 8:42 AM OSS ARCHITECT IMPRESSION: Mixed interstitial and patchy airspace o pacities in the right mid and lower lung field concerning for infection versus pulmonary edema. I have personally reviewed the image(s) and initial interpretation, and I agree with the findings as documented by the resident/fellow. Reading Radiologist: Eric Rivero Reading Resident: Jose Chu Narrative 05/29/2021 8:42 AM OSS ARCHITECT Exam: ??Single View Chest X-Ray 05/29/2021 Comparison: Earlier same day outside [facility] x-ray, 04/17/2021 History: STAB Patient Findings: Right [...] X-Ray 05/29/2021 Comparison: Earlier same day outside [facility] x-ray, 04/17/2021 History: STAB Patient Findings: Right [...] HEPATITIS B SURFACE ANTIGEN (05/29/2021 6:30 AM OSS ARCHITECT) Patholo gist Method Time Signature HBV Surface Nonreactive Nonreactive [facility] Ag Specimen Anatomical Collection Method Collection Time Receive d Time (Source) Location / / Volume Laterality Blood 05/29/2021 6:30 AM OSS ARCHITECT 10:29 AM OSS ARCHITECT Binu Young MD LABORATORY Performing Organization Address [facility] Code Phon e Number [facility] [place] [address] HEPATITIS B SURFACE ANTIBODY (05/29/2021 6:30 AM OSS ARCHITECT) athologist Signature HBV Surface Reactive [facility] Mikayla Comment: Reactive implies immunity. Specimen Anatomical Collection Method Collection Time Receive d Time (Source) Location / / Volume Laterality Blood 05/29/2021 6:30 AM OSS ARCHITECT 10:29 AM OSS ARCHITECT Binu Young MD LABORATORY Performing Organization Address [facility] Phon e Number [facility] [place], [place] [address] [place] [place] [id number] EXTRA TUBE - SST (05/29/2021 6:30 AM OSS ARCHITECT) athologist Signature SST TUBE Stored [facility] Comment: SST tubes (Serum Separator) are stored in the lab for 3 days from the collection date. Specimen Anatomical Collection Method Collection Time Receive d Time (Source) Location / / Volume Laterality Blood 05/29/2021 6:30 AM 6:47 OSS ARCHITECT AM OSS ARCHITECT Binu Young MD LABORATORY Performing Organization Address City/[facility] Code Phon e Number [facility] [place] [address] EXTRA TUBE - ROME (05/29/2021 6:30 AM OSS ARCHITECT) athologist Signature ROME TUBE Stored [facility] Comment: [place] top (Sodium flouride) tube s are stored in the lab for 3 days from the collection date. Specimen Anatomical Collection Method Collection Time Receive d Time (Source) Location / / Volume Laterality Blood 05/29/2021 6:30 AM 1 6:47 OSS ARCHITECT AM OSS ARCHITECT Binu Young MD LABORATORY Performing Organization Address City/[facility] Code Phon e Number [facility] [place] [address] EXTRA TUBE - SST (05/29/2021 6:30 AM OSS ARCHITECT) athologist Signature SST TUBE Stored [facility] Comment: SST tubes (Serum Separator) are stored in the lab for 3 days from the collection date. Specimen Anatomical Collection Method Collection Time Receive d Time (Source) Location / / Volume Laterality Blood 05/29/2021 6:30 AM 6:47 OSS ARCHITECT AM OSS ARCHITECT Binu Young MD LABORATORY Performing Organization Address City/[facility]/ZIP Code Phon e Number [facility] [place] [address] (ABNORMAL) HS TROPONIN (05/29/2021 6:30 AM OSS ARCHITECT) athologist Signature HS Troponin I 444 (H) <=16 ng/L [facility] Specimen Anatomical Collection Method Collection Time Receive d Time (Source) Location / / Volume Laterality Blood 05/29/2021 6:30 AM 7:36 OSS ARCHITECT AM OSS ARCHITECT Narrative [facility] - 05/29/2021 8:12 AM OSS ARCHITECT First Occurrence of the Troponin order i s to be drawn Stat by Nursing staff on the unit. Binu Young MD LABORATORY Performing Organization Address City/[facility]/ZIP Code Phon e Number [facility] [place] [address] PTT (APTT) (05/29/2021 6:30 AM OSS ARCHITECT) athologist Signature APTT 34.3 25.0 - 37.0 [facility] sec Specimen Anatomical Collection Method Collection Time Receive d Time (Source) Location / / Volume Laterality Blood 05/29/2021 6:30 AM 7:35 OSS ARCHITECT AM OSS ARCHITECT Binu Young MD LABORATORY Performing Organization Address City/State/ZIP Code Phon e Number [facility] [place] [address] PROTHROMBIN (PT) & INR (05/29/2021 6:30 AM OSS ARCHITECT) athologist Signature PT 11.0 9.0 - 12.5 [facility] sec INR 0.9 0.8 - 1.1 [facility] Specimen Anatomical Collection Method Collection Time Receive d Time (Source) Location / / Volume Laterality Blood 05/29/2021 6:30 AM 7:35 OSS ARCHITECT AM OSS ARCHITECT Binu Young MD LABORATORY Performing Organization Address City/State/ZIP Code Phon e Number [facility] [place] [address] PRECAUTIONARY TUBE (05/29/2021 6:30 AM OSS ARCHITECT) Patholo gist Method Time Signature Prec Tube Precautionary [facility] Blood Bank Specimen Received. Specimen Anatomical Collection Method Collection Time Receive d Time (Source) Location / / Volume Laterality Blood 05/29/2021 6:30 AM 7:39 OSS ARCHITECT AM OSS ARCHITECT Binu Young MD LAB TRANSFUSION SERVICES Performing Organization Address City/[facility]/ZIP Code Phon e Number [facility] [place] [address] LACTATE (LACTIC ACID) (05/29/2021 6:30 AM OSS ARCHITECT) athologist Signature Lactate 1.6 0.7 - 2.1 [facility] mmol/L Specimen Anatomical Collection Method Collection Time Receive d Time (Source) Location / / Volume Laterality Blood 05/29/2021 6:30 AM 6:47 OSS ARCHITECT AM OSS ARCHITECT Narrative [facility] - 05/29/2021 6:47 AM OSS ARCHITECT Send specimen on ice! Binu Young MD LABORATORY Performing Organization Address City/[facility]/ZIP Code Phon e Number [facility] [place] [address] FIBRINOGEN (05/29/2021 6:30 AM OSS ARCHITECT) athologist Signature Fibrinogen 331 200 - 400 [facility] mg/dL Specimen Anatomical Collection Method Collection Time Receive d Time (Source) Location / / Volume Laterality Blood 05/29/2021 6:30 AM 7:35 OSS ARCHITECT AM OSS ARCHITECT Binu Young MD LABORATORY Performing Organization Address City/State/ZIP Code Phon e Number [facility] [place] [address] (ABNORMAL) ED HEMOGLOBIN TOTAL (ED ONLY) (05/29/2021 6:30 AM OSS ARCHITECT) P athologist Signature Hgb 9.4 (L) 11.5 - 15.7 [facility] g/dL Specimen Anatomical Collection Method Collection Time Receive d Time (Source) Location / / Volume Laterality Blood 05/29/2021 6:30 AM 6:46 OSS ARCHITECT AM OSS ARCHITECT Binu Young MD LABORATORY Performing Organization Address City/[facility]/ZIP Code Phon e Number [facility] [place] [address] (ABNORMAL) ED CHEMISTRY LABS(NA,K,CL,CO2,GLU,CREAT,CA-IONIZED,ANION GAP) (05/29/2021 6:30 AM OSS ARCHITECT) Analysis Performed At [facility] Time [facility] Sodium 139 135 - 148 [facility] mEq/L Chloride 104 92 - 108 [facility] mEq/L AnGap 12 8 - 16 [facility] mEq/L Glucose 115 (H) 70 - 100 [facility] mg/dL ICA, Actual 4.66 4.40 - [facility] 5.20 mg/dL ICA, pH 4.57 4.40 - [facility] Corrected 5.20 mg/dL Creatinine 6.98 (H) 0.50 - [facility] 1.00 mg/dL BICARB 22 22 - 26 [facility] mEq/L eGFR, High 6 (L) >=60 [facility] ml/min/1.7 3m2 Comment: Calculated using CKD-EPI equati on eGFR, Low 5 (L) >=60 ml/min/1.73m2 [facility] Comment: Calculated using CKD-EPI equati on Potassium 5.5 (H) 3.5 - 5.3 mEq/L [facility] Specimen Anatomical Collection Method Collection Time Receive d Time (Source) Location / / Volume Laterality Blood 05/29/2021 6:30 AM 6:46 OSS ARCHITECT AM OSS ARCHITECT Binu Young MD LABORATORY Performing Organization Address City/State/ZIP Code Phon e Number [facility] [place] [address] (ABNORMAL) CBC WITH PLTS/AUTO DIFF (05/29/2021 6:30 AM OSS ARCHITECT) Analysis Performed At [facility] Time [facility] WBC 8.49 4.00 - [facility] 10.00 k/cmm RBC 3.18 (L) 3.90 - [facility] 5.20 m/cmm Hgb 9.2 (L) 11.5 - [facility] 15.7 g/dL Hematocrit 27.9 (L) 34.0 - [facility] 45.0 % MCV 87.7 80.0 - [facility] 100.0 fL MCH 28.9 25.0 - [facility] 32.0 pg MCHC 33.0 31.0 - [facility] 36.0 g/dL RDW 17.9 (H) 11.5 - [facility] 14.5 % Plt 235 150 - 400 [facility] k/cmm MPV 10.3 6.5 - 12.5 [facility] fL NRBC 0.0 0.0 - 0.0 [facility] % Automated Abs 7.07 (H) 1.70 - [facility] Neutrophil 6.50 k/cmm Comment: Preliminary ANC, final result t o follow. Abs Immature Granulocyte 0.06 0.00 - 0.09 k/cmm [facility] Comment: The Immature Granulocyte Absolu te count contains metamyelocytes and myelocytes. Abs Neutrophil 7.07 (H) 1.70 - 6.50 k/cmm [facility] B Abs Lymphocyte 0.80 0.80 - 4.00 k/cmm [facility] B Abs Monocyte 0.46 0.20 - 1.00 k/cmm [facility] Abs Eosinophil 0.04 0.00 - 0.60 k/cmm [facility] B Abs Basophil 0.06 0.00 - 0.20 k/cmm [facility] Specimen Anatomical Collection Method Collection Time Receive d Time (Source) Location / / Volume Laterality Blood 05/29/2021 6:30 AM 7:36 OSS ARCHITECT AM OSS ARCHITECT Binu Young MD LABORATORY Performing Organization Address City/State/ZIP Code Phon e Number [facility] [place] [address] (ABNORMAL) BLOOD GASES (05/29/2021 6:30 AM OSS ARCHITECT) P athologist Signature PH Edwin 7.36 7.32 - 7.42 [facility] PCO2 Edwin 40 (L) 41 - 51 [facility] mmHG PO2 Edwin 33 25 - 40 [facility] mmHG Bicarb Edwin 22 (L) 24 - 28 [facility] mEq/L O2 Sat Edwin 48 % [facility] Base Exc Edwin -3.2 -10.0 - 2.0 [facility] mEq/L Specimen Anatomical Collection Method Collection Time Receive d Time (Source) Location / / Volume Laterality Blood Venous 05/29/2021 6:30 AM 6:47 OSS ARCHITECT AM OSS ARCHITECT Binu Young MD LABORATORY Performing Organization Address City/State/ZIP Code Phon e Number [facility] [place] [address] [address] [facility] ED US CRITICAL CARE (05/29/2021 6:17 AM OSS ARCHITECT) Anatomical Region Laterality Modality Ultrasound Specimen (Source) Anatomical Location Collection Method / Collectio n Time Received Time / Laterality Volume Narrative 05/29/2021 8:00 AM OSS ARCHITECT ED Cardiac Ultrasound Body Areas Imaged: Heart, Chest Wall/Elizabeth gs and Inferior Vena Cava Indications:Shortness of Breath/Hypoxia Window: Subxiphoid, Parasternal Short Ax is, Parasternal Long [place], IVC and Bilateral Lungs Findings: The left [...] pulm onary edema Findings suggest euvolemia Binu Young MD, 05/29/2021 7:58 AM Binu Young MD ED ULT documented in this encounter Visit Diagnoses Diagnosis SOB (shortness of breath) - Primary Shortness of breath SOB (shortness of breath) Shortness of breath documented in this encounter Admitting Diagnoses Diagnosis SOB (shortness of breath) Shortness of breath documented in this encounter Administered Medications Inactive Administered Medications - up to 3 most recent administrations Medication Order MAR Action Action Date Dose Rate Site azithromycin (ZITHROMAX) 500 New Bag 05/29/2021 7:02 AM OSS ARCHITECT 500 mg 250 mL/hr mg in NaCl 0.9% 250 mL IVPB 500 mg, Indication (Select One): Infection - Suspected, SITE (Select all that apply): Lower Respiratory, Cultures Ordered? No, Intravenous, ONE TIME, 1 dose, On Sat05/29/21 at 0640 azithromycin (ZITHROMAX) 500 mg in New Bag 05/30/2021 9:46 AM OSS ARCHITECT 500 mg 250 mL/hr NaCl 0.9% 250 mL IVPB 500 mg, Indication (Select One): Infection - Suspected, SITE (Select all that apply): Lower Respiratory, Cultures Ordered? No, Intravenous, Q24H, First dose on Sat05/30/21 at 0800, Until Discontinued calcium acetate (PHOSLO) capsule 667 mg Given 05/30/2021 12:31 PM OSS ARCHITECT 667 mg 667 mg, Oral, TID WM, First dose on Sat05/30/21 at 0800, Until Discontinued Given 05/30/2021 8:39 AM OSS ARCHITECT 667 mg calcium gluconate 10% IV 3 g Given 05/29/2021 10:55 AM OSS ARCHITECT 3 g 3 g, IV Push, ONE TIME, 1 dose, On Sat05/29/21 at 1020 cefTRIAXone (ROCEPHIN) 2 g in NaCl New Bag 05/29/2021 6:37 AM OSS ARCHITECT 2 g 200 mL/hr 0.9% 100 mL IVPB 2 g, Indication (Select One): Infection - Suspected, SITE (Select all that apply): Lower Respiratory, Cultures Ordered? No, Intravenous, ONE TIME, 1 dose, On Sat05/29/21 at 0640 cefTRIAXone (ROCEPHIN) 2 g in NaCl New Bag 05/30/2021 9:07 AM OSS ARCHITECT 2 g 200 mL/hr 0.9% 100 mL IVPB 2 g, Indication (Select One): Infection - Suspected, SITE (Select all that apply): Lower Respiratory, Cultures Ordered? No, Intravenous, Q24H, First dose on Sat05/30/21 at 0800, Until Discontinued RI MED REC REVIEW BY PHARMACY Discharge Date: 05/30/2021, Discharge Lo cation: Home, Anticipated Discharge Time: 10 am - 2 pm, Discharge Medication Orders: DC Med Orde rs Final, Does not apply, PROTOCOL, Starting on Sat05/30/21 at 1047, Until Sat05/30/21 at 1612 furosemide (LASIX) tablet 80 mg Given 05/30/2021 8:39 AM OSS ARCHITECT 80 mg 80 mg, Oral, DAILY, First dose on Sat05/30/21 at 0800, Until Discontinued lisinopril (PRINIVIL;ZESTRIL) tablet 2.5 mg Given 05/30/2021 8:39 AM OSS ARCHITECT 2.5 mg 2.5 mg, Oral, DAILY, First dose on Sat05/29/21 at 1805, Until Discontinued Given 05/29/2021 6:56 PM OSS ARCHITECT 2.5 mg metoprolol (TOPROL XL) XL half tablet 12.5 Given 05/30/2021 8:39 AM OSS ARCHITECT 12.5 mg mg 12.5 mg, Oral, DAILY, First dose on Sat05/29/21 at 1805, Until Discontinued Given 05/29/2021 6:56 PM OSS ARCHITECT 12.5 mg nitroGLYCERIN 50 mg in dextrose New Bag 05/29/2021 6:48 AM OSS ARCHITECT 20 mcg/min 6 mL/hr 5% 250 mL infusion 2-200 mcg/min (0.6-60 mL/hr), Intravenous, CONTINUOUS, Indications: Hypertension, Starting on Sat05/29/21 at 0650, Until Sat05/30/21 at 0625 ondansetron (ZOFRAN) 4 mg/2 mL injection 4 mg Given 05/29/2021 11:31 AM OSS ARCHITECT 4 mg 4 mg, IV Push, ONE TIME, 1 dose, On Sat05/29/21 at 1125 sodium zirconium cyclosilicate (LOKELMA) packet Given 05/29/2021 9:45 AM OSS ARCHITECT 10 g 10 g 10 g, Oral, ONE TIME, 1 dose, On Sat05/29/21 at 0820 documented in this encounter Active and Recently Administered Medications Times are shown in OSS ARCHITECT. Scheduled Medication Order 05/28/2021 05/29/2021 05/30/2021 azithromycin (ZITHROMAX) 500 mg in NaCl 0.9% 250 mL IVPB (CO MPLETED) 0702 (New Bag - Provider: Binu Nunes RN)0929 (Infusion completed - Provider: Janessa Dennis [...] Sat05/30/21 at 0800, Until Di scontinued heparin 77023 UNITS/mL injection 2,500 UNITS 1834 (Not Given [...] mg (COMPLETED) 1131 (Given - Provider: Janessa Dennis, WIN) 4 mg, IV Push, ONE TIME, 1 dose, On Sat05/29/21 at 1125 sodium zirconium cyclosilicate (LOKELMA) packet 10 g (COMPLE STAS) 0945 (Given - Provider: Janessa Dennis RN) 10 g, Oral, ONE TIME, 1 dose, [...]
--- OUTSIDE RECORDS SUMMARY | 2022-04-25 13:51 | XMS_ITS | Encounter Summary ---
:1940 Author Organization [facility] Address [address] [place] [address] Care Team Providers Name Role Phone Louis Reyes MD Primary Care Provider Clinic, Not Listed Unavailable Unavailable Reason for Visit Inpatient Admission Specialty Diagnoses / Procedures Referred By Contact Refer red To Contact Diagnoses dx. endstage renal disease Procedures ANASTOMOSIS,AV,ANY SITE ANASTOMOSIS,AV,ANY SITE RIGHT UPPER GRAFT VERSUS SECOND STAGE Referral ID Status Reason Start Date Expiration Date Visits Requ ested Visits Authorized [id number] 1 1 Encounter Details Date Type Department Care Team Description 02/02/2022 Hospital Encounter A7 Jasmin Cardenasorlando Martinez, ESRD (end stage [address] [facility] renal disease) ([facility]) [address] [place] [facility] [place] [address] [place], [place] [phone] [id number] Social History Tobacco Use Types Packs/Day Years [...] Dispensed Refills Start Date End Date calcium acetate, TAKE 2 CAPSULES BY 0 11/17/2021 phosphate binders, MOUTH THREE TIMES (PHOSLO) 667 mg oral DAILY WITH MEALS AND 1 capsule CAPSULE TWO TIMES DAILY WITH SNACKS Cholecalciferol, Vitamin Take 1 tablet by 0 D3, 50 mcg (2,000 unit) mouth. oral capsule furosemide (LASIX) 80 mg Take 80 mg by mouth 0 oral tablet twice a day. lisinopriL (PRINIVIL) 2.5 Take 2.5 mg by mouth 0 12/16/2021 mg oral tablet once daily. metoprolol succinate, XL, 0 12/19/2021 (TOPROL XL) 25 mg oral extended release tablet 24 HR omeprazole (PRILOSEC) 20 Take by mouth Daily. 0 0 09/06/2021 mg oral delayed release capsule documented as of this encounter Progress Notes Sandra Holguin RN - 02/02/2022 7:45 PM CDT Cindi Garibay 1940 [id number] P: Discharge A: Discharged ambulatory to home [...] on file. See dialysis flow sheet in Epic for further details. Patient teaching and the opportunity for questions given. Water detection alarm in use during treatment. Patient dialysis days MWF at [facility]. WIN Greene Lashon Horton RN - 02/02/2022 2:36 PM CDT Patient here for fistulagram today as outpatient, K 5.9 and needing dialysis prior to procedure. Admitted to A7, ate lunch, will go to W5 for dialysis and DC home. Then she will reschedule fistulagram as an outpatient. Lives at home with son Rafita who will come molded goods spot picker when done. Tele monitor on, no calls. [...] She did not dialyze yesterday as her musical engineer recommended. We planned to dialyze her today, [...] surgery for another date. Sonya Cardenas MD [facility] documented in this encounter Consult Notes Avril Gomes APRN, CNP - 02/02/2022 3:29 PM CDT Images from the original note were not included. 02/02/2022 February 02, 2022 3:30 PM Impression and Plan: 1) ESRD: Usually dialyze on Saturday via [facility]VC at [facility] ([phone]). Herprimary musical engineer is Dr Landon Calvert MD. No recent [...] - Follow weights and I&Os HD Site: [facility] Dialysis Prescription: Dry weight: 49.5 kg Avril Gomes APRN, PURCHASING EXPEDITOR 3) Blood Pressure/Volume: long standing history of [...] to participate in Ms. Garibay???s care. Avril Gomes DNP, PURCHASING EXPEDITOR, [facility] Office # [phone] documented in this encounter Nursing Notes Danish Boland RN - 02/02/2022 10:58 AM CDT Cindi Garibay 1940 [id number] P. Transfer A. Transferred at 1045 to A7 unit. Transported via wheelchair with chart escorted by nursing clinical director. I. Notified son of transfer. Patient [...] and medical chart had name spelled wrong. desktop support engineer working on correcting. Different drivers ID and medicare. Name corrected now. Labs re-drawn. Rafita (son) updated. Pt may have to be in observation unit for dialysis before leaving hospital. documented in this encounter Plan of Treatment Upcoming Encounters Date Type Specialty Care Team Description 04/27/2022 Hospital Encounter Sonya Cardenas MD [address] [place] [phone] (Wo rk) 04/27/2022 Surgery Surgery Sonya Cardenas MD RIGHT UPPER GRAFT VERSUS [address] A[address] FISTUL[address] [place], [place] [address] (Wo rk) Scheduled Procedures Name Priority Associated Diagnoses Date/Time CREATION: ROSA BASILIC dx. endstage renal dis ease 04/27/2022 10:15 AM CDT A-V FISTULA FIRST/SECOND STAGE documented as of this encounter Procedures Procedure [...] HEP BS ANTIGEN Non-React Non-React ATELLICA 02/02/2022 [facility] deedee deedee ANALYZER 2:17 PM CDT HEALTH LABORATORY Specimen Anatomical Collection Method Collection Time Receive d Time (Source) Location / / Volume Laterality Blood 02/02/2022 1:17 PM 1:34 CDT PM CDT Chadwick Lai MD IMMUNOLOGY ORDERABLE Performing Organization Address City/State/ZIP Code Phon e Number [facility] [place] [address] [phone] LABORATORY Protime/INR (02/02/2022 8:18 AM CDT)Only the most recent of2 resultswithin the time period is included. P athologist Signature INR 1.0 0.9 - 1.2 02/02/2022 [facility] 9:10 AM CDT HEALTH LABORATORY Specimen Anatomical Collection Method / Collection Time Recei asim Time (Source) Location / Volume Laterality Blood LEFT UPPER ARM Venipuncture / 02/02/2022 8:18 02/03/20 22 8:25 STRUCTURE / Unknown AM CDT AM CDT Unknown Sp Vickers MD COAGULATION ORDERABLE Performing Organization Address [facility] Phon e [place] [address] [address] LABORATORY (ABNORMAL) Partial Thromboplastin Time (02/02/2022 8:18 AM CDT)Only the most recent of2 resultswithin the time period is included. P athologist Signature PTT 40.7 (H) 24.0 - 31.0 02/02/2022 [facility] SEC. 9:10 AM CDT [facility] LABORATORY Specimen Anatomical Collection Method / Collection Time Recei asim Time (Source) Location / Volume Laterality Blood LEFT UPPER ARM Venipuncture / 02/02/2022 8:18 02/03/20 22 8:25 STRUCTURE / Unknown AM CDT AM CDT Unknown Narrative [facility] LABORATORY - 02/02 9:10 AM CDT aPTT Therapeutic Reference Ranges: Argatroban protocol: 60 - 85 seconds Bivalirudin protocol: 43 - 71 seconds Sp Vickers MD COAGULATION ORDERABLE Performing Organization Address City/[facility]/ZIP [facility] Phon e Roque [facility] [place] [address] [phone] LABORATORY (ABNORMAL) Potassium (02/02/2022 8:18 AM CDT)Only the most recent of2 results within the time period is included. P athologist Signature POTASSIUM 5.9 (H) 3.4 - 5.1 ATELLICA 02/02/2022 [facility] mmol/L ANALYZER 8:46 AM CDT HEALTH LABORATORY Specimen Anatomical Collection Method / Collection Time Recei asim Time (Source) Location / Volume Laterality Blood LEFT UPPER ARM Venipuncture / 02/02/2022 8:18 02/03/20 22 8:25 STRUCTURE / Unknown AM CDT AM CDT Unknown Sp Vickers MD CHEMISTRY ORDERABLE Performing Organization Address City/[facility]/ZIP [facility] Phon e Number [address] [address] LABORATORY Type & Screen (02/02/2022 8:18 AM CDT) [facility] gist Method Time Signature GROUP AND RH O Positive 02/02/2022 [facility] 9:32 AM CDT HEALTH LABORATORY ANTIBODY Negative 02/02/2022 [facility] SCREEN 9:32 AM CDT HEALTH LABORATORY Specimen Anatomical Collection Method / Collection Time Recei asim Time (Source) Location / Volume Laterality Blood LEFT UPPER ARM Venipuncture / 02/02/2022 8:18 02/03/20 22 8:23 STRUCTURE / Unknown AM CDT AM CDT Unknown Sonya Cardenas MD BLOOD BANK ORDERABLE Performing Organization Address City/State/ZIP [facility] Phon [place] [address] [address] LABORATORY ABORh Confirm (Lab Use Only) (02/02/2022 8:14 AM CDT) [facility] gist Method Time Signature GROUP AND RH O Positive 02/02/2022 [facility] 10:06 AM CDT HEALTH LABORATORY Specimen Anatomical Collection Method Collection Time Receive d Time (Source) Location / / Volume Laterality Blood 02/02/2022 8:14 AM 9:50 CDT AM CDT Chadwick Lai MD BLOOD BANK ORDERABLE Performing Organization Address City/State/ZIP Code Phon e Number [facility] [address] [place] [address] LABORATORY COVID 19 (External) (01/29/2022) Analysis Performed At Patho logist Time Signature COVID 19 Not Not (External) Detected. Detected. Specimen (Source) Anatomical Location Collection Method / Collectio n Time Received Time / Laterality Volume 01/29/2022 Unknown IMMUNOLOGY ORDERABLE documented in this encounter Visit Diagnoses Diagnosis ESRD (end stage renal disease) (HCC) - P rimary End stage renal disease documented in this [...] 140 0 (Canceled Entry - Provider: Lashon Horton RN) 10 mL, Intravenous, EVERY 8 HOURS, First [...] 0.1-0.3 mL, Intradermal, NEEDED, Star ting on 02/02/22 at 0919, Until 02/03/22 at 0148, IV start or restart documented in this encounter Care Teams Cable Puller Relationship Specialty Start Date End Date Louis Reyes MD PCP - General 01/30/22[address] [place] [address] Clinic, Not Listed PCP - Primary Care Clinic 01/30/22 documented as of this encounter
--- OUTSIDE RECORDS SUMMARY | 2022-04-25 13:51 | XMS_ITS | Encounter Summary ---
:1940 Author Organization [facility] Address [address] [place] [address]. . [place] [address] Phone Care Team Providers Name Role Phone Unavailable Primary Care Provider Unavailable Encounter Details Date Type Department Care Team Description 05/29/2021 Orders Only [facility] [place] Provider, Outside Referral of patient [facility] OUTSIDE PROVIDER (Primary Dx) Medical [place], [place] Radiology Department [address] [facility] [address] [facility] [address] Social History Tobacco Use Types Packs/Day Years Used Date Smoking Tobacco: Never Assessed Sex Assigned at Date Recorded Not on file COVID-19 Exposure Response Date Recorded In the last month, have you been in contact with No / Unsure 05/29/2021 6:33 AM HR MANAGER someone who was confirmed or suspected to have Coronavirus / COVID-19? documented as of this encounter Plan of Treatment Not on filedocumented as of this encounter Results XR CHEST OUTSIDE FILMS (05/29/2021 4:53 AM HR MANAGER) Specimen (Source) Anatomical Location Collection Method / Collectio n Time Received Time / Laterality Volume Narrative Edwin PondHlpw-Trqnjq-Woxsiwxin - 1 6:27 AM HR MANAGER Outside Film Only Outside Provider OUTSIDE FILMS XR CHEST OUTSIDE FILMS (04/17/2021 8:20 AM CDT) Specimen (Source) Anatomical Location Collection Method / Collectio n Time Received Time / Laterality Volume Narrative Fausto PondHenh-Qijvgv-Xjmdpdiyx - 1 6:27 AM HR MANAGER Outside Film Only Outside Provider OUTSIDE FILMS documented in this encounter Visit Diagnoses Diagnosis Referral of patient - Primary Referral of patient without examination or treatment documented in this encounter
--- OUTSIDE RECORDS SUMMARY | 2022-04-25 13:51 | XMS_ITS | Clinical Summary ---
:1940 Author Organization [facility] Address [address] [place] [address] Phone Care Team Providers Name Role Phone Unavailable Primary Care Provider Unavailable Source Comments Edyn is fully rolled out on [employer]. Last update 12/03/08.[facility] Allergies Active Allergy Reactions Severity Noted Date [...] Comments Blood Pressure 123/66 05/30/2021 7:37 AM MANAGER OF PROJECT MANAGEMENT Pulse 87 05/29/2021 11:13 PM MANAGER OF PROJECT MANAGEMENT Temperature 36.9 ??C (98.5 ??F) 05/30/2021 7:37 AM MANAGER OF PROJECT MANAGEMENT Respiratory Rate 20 05/30/2021 7:37 AM MANAGER OF PROJECT MANAGEMENT Oxygen Saturation 95% 05/30/2021 7:37 AM MANAGER OF PROJECT MANAGEMENT Inhaled Oxygen Concentration - - Weight 43 kg (94 lb 12.8 oz) 05/29/2021 6:00 PM MANAGER OF PROJECT MANAGEMENT Height 160 cm (5' 3) 05/29/2021 6:00 PM MANAGER OF PROJECT MANAGEMENT Body Mass Index 16.79 05/29/2021 6:00 PM MANAGER OF PROJECT MANAGEMENT Plan of Treatment Health Maintenance Due Date [...] Phone Address Typ e / Group Dates [facility] [id number] [address] [facility] (MEDICARE nt [id number] Managed Care [employer]VANTAGE) [place] [address] Advance Directives For more information, please contact: [phone] Latest Code Status on File Code Status Date Activated Date Inactivated Comments Full Code 05/29/2021 6:03 PM 05/30/2021 4:17 PM Question Answer Comments Does the Patient have preferences regarding life sustaining No measures (these options only apply when the patient has a pulse): Discussed Code Status With Whom? Not discussed
--- OUTSIDE RECORDS SUMMARY | 2022-04-25 13:51 | XMS_ITS | Encounter Summary ---
:[address] [facility] Address [address] [place] [address] Care Team Providers Name Role Phone Louis [...] 04/27/2022 Hospital Encounter Sonya Cardenas MD [address] [place], [place] [address] (Wo rk) 04/27/2022 Surgery Surgery Sonya Cardenas MD RIGHT UPPER GRAFT VERSUS [address] A[address] FISTUL[address] [place], [place] [address] (Wo rk) Scheduled Procedures Name Priority Associated Diagnoses Date/Time CREATION: ROSA BASBARRY dx. endstage renal dis ease 04/27/2022 10:15 AM CDT A-V FISTULA FIRST/SECOND STAGE documented as of this encounter Visit Diagnoses Not on filedocumented in this encounter Care Teams Corporate Banking Officer Relationship Specialty Start Date End Date Louis Reyes MD PCP - General 01/30/221999 [place] [address] Clinic, Not Listed PCP - Primary Care Clinic 01/30/22 documented as of this encounter
--- OUTSIDE RECORDS SUMMARY | 2022-04-25 13:51 | XMS_ITS | Encounter Summary ---
:1940 Author Organization [facility] Address [address] [place] [address] Phone Care Team Providers Name Role Phone [...] with No / Unsure 05/29/2021 6:33 AM AUTOMATIC BOW MAKER MACHINE TENDER someone who was confirmed or suspected to have Coronavirus / COVID-19? documented as of this encounter Plan of Treatment Not on filedocumented as of this encounter Visit Diagnoses Not on filedocumented in this encounter
[2022-04-25 15:30] LABS: Chloride* 94 mmol/L (96-114); Potassium* 4.4 mmol/L (3.6-5.1); Sodium* 137 mmol/L (135-149)
[2022-04-25 15:33] LABS: Blood Urea Nitrogen* 15 mg/dL (7-30); Carbon Dioxide* 30 mmol/L (20-32); Estimated Glomerular Filt Rate 11 ml/min; Glucose* 74 mg/dL (60-115)
[2022-04-25 15:34] LABS: Calcium* 9.6 mg/dL (8.4-10.6)
== END 2022-04-25 13:42 | disposition home or self-care (01) ==
LOC: NFLDREF 13:44
PROVIDERS: PCP Family Medicine; Visit Provider Family Medicine
DX: Z01.818 Encounter for other preprocedural examination (principal)
CPT/HCPCS: 80048

== ENCOUNTER 2022-05-06 01:40 | Emergency (ER) | payer MEDICARE, SELFPAY ==
[2022-05-06 01:11] VITALS: BP 174/81; PULSE 83; RESP 18; TEMP 36.7; O2SAT 99
--- NOTE | 2022-05-06 01:33 | ED_ITS ---
HPI - General Adult General Time Seen by Provider: 01:10 Date Seen: 05/06/22 Chief complaint: Post Op Complication Stated complaint: Right arm post op bleeding Time Seen by Provider: 05/06/22 01:15 SOCIAL MEDIA SR STRATEGY MANAGER Source: patient and family Mode of arrival: ambulatory Limitations: no limitations History of Present Illness HPI narrative: 81-year-old female with history of heart failure and renal failure on dialysis, had a right arm shunt performed last week and comes in today with bleeding. She reports that she rolled over in bed tonight and then noted bleeding from the inc ision so came to the emergency department. No pain, no fever. Denies blood thinners. Related Data Home Medications Medication Instructions Recorded Confirmed calcium acetate 667 mg tablet 667 mg PO BID 03/06/22 04/25/22 Previous Rx's Medication Instructions Recorded furosemide 80 mg tablet 80 mg PO DAILY #30 tabs 03/06/22 lisinopril 2.5 mg tablet 2.5 mg PO DAILY #30 tabs 03/06/22 metoprolol succinate 25 mg 25 mg PO DAILY #30 tabs 03/06/22 tablet,extended release 24 hr omeprazole 20 mg capsule,delayed 20 mg PO DAILY #90 caps 03/06/22 release Allergies Allergy/AdvReac Type Severity Reaction Status Date / Time iron Allergy Intermediate Itchy Verified 04/25/22 12:48 Review of Systems Status of ROS: Reports: 10 or more systems reviewed and unremarkable except as noted in History and below [facility] Surgical History (Updated 01/22/22 @ 11:03 by Fernando Lee) History of total abdominal hysterectomy and bilateral salpingo-oophorectomy History of tubal ligation Social History (Updated 01/29/22 @ 14:32 by Louis Reyes MD) Narrative: SOCIAL HISTORY: Single. Recently moved from [place]. Living with her son and [id number] in [place]. 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 HABITS: non-smoker. No alcohol. Smoking Status: Never smoker Second hand tobacco smoke exposure: No How often do you have a drink containing alcohol: never AUDIT-C Alcohol total score: 0 Non-prescribed substance use: denies use service: No Exam Narrative: Exam Narrative: General: well nourished , NAD Head: Atraumatic and normocephalic ENT: External ears and external nose are normal Eyes: Conjunctiva clear, pupils are equal reactive, external ocular motions are intact Neck: Full spontaneous range of motion of the neck Lungs: No respiratory distress Musculoskeletal: No tenderness or deformity Neurologic: No gross focal neurologic deficits Skin: Incision of the right medial upper arm is clean, dry, intact with priya in place. About 2 cm from the distal edge of the incision 1 of the priya is partially dislodged and there is fresh clot in this area. With minimal manipulation, this area oozes dark blood. Psych: Mood and affect are appropriate Const: Vital Signs, click to edit/add: Vital Signs - 24 hr 05/06/22 01:11 SOCIAL MEDIA SR STRATEGY MANAGER Temperature 98.0 F Pulse Rate [Right Pulse Oximeter] 83 Respiratory Rate 18 Blood Pressure [Le ft Upper Arm] 174/81 H Pulse Oximetry 99 Oxygen Delivery Me thod Room Air Course Course Hospital Course: Patient seen and examined, prior records are reviewed. Patient presents today with bleeding from her postoperative incision. One the priya appears to only be through 1 edge of the wound and this may be a partial superficial dehiscence. No active bleeding on initial exam but slight dark oozing when the area is manipulated. Lidocaine 1% was injected along the wound edges. The malpositioned staple was removed. There was a small amount of dark blood. Area was cleansed with Shur-Clens and 2 3-0 Ethilon simple interrupted sutures were placed. Hemostasis was obtained. Will discuss dressing with vascular surgery. Reevaluation(s) Reevaluation #1: Care discussed with Dr. Stone with [facility]. Recommends loose Murray wrap and will contact patient for follow-up this week. Time: 01:41 Vital Signs Vital signs: Initial Vital Signs Temperature 98.0 F 05/06/22 01:11 SOCIAL MEDIA SR STRATEGY MANAGER Temperature Source Temporal Artery Scan 05/06/22 01:11 SOCIAL MEDIA SR STRATEGY MANAGER Pulse Rate 83 05/06/22 01:11 SOCIAL MEDIA SR STRATEGY MANAGER Pulse Rhythm 05/06/22 01:11 SOCIAL MEDIA SR STRATEGY MANAGER Respiratory Rate 18 05/06/22 01:11 SOCIAL MEDIA SR STRATEGY MANAGER Blood Pressure 174/81 H 05/06/22 01:11 SOCIAL MEDIA SR STRATEGY MANAGER Blood Pressure Mean 112 05/06/22 01:11 SOCIAL MEDIA SR STRATEGY MANAGER Blood Pressure Position Semi-Fowlers 05/06/22 01:11 SOCIAL MEDIA SR STRATEGY MANAGER Pulse Oximetry 99 05/06/22 01:11 SOCIAL MEDIA SR STRATEGY MANAGER Oxygen Delivery Method 05/06/22 01:11 SOCIAL MEDIA SR STRATEGY MANAGER Vital Signs Temperature 98.0 F 05/06/22 01:11 SOCIAL MEDIA SR STRATEGY MANAGER Pulse Rate 83 05/06/22 01:11 SOCIAL MEDIA SR STRATEGY MANAGER Respiratory Rate 18 05/06/22 01:11 SOCIAL MEDIA SR STRATEGY MANAGER Blood Pressure 174/81 H 05/06/22 01:11 SOCIAL MEDIA SR STRATEGY MANAGER Pulse Oximetry 99 05/06/22 01:11 SOCIAL MEDIA SR STRATEGY MANAGER Oxygen Delivery Method 05/06/22 01:11 SOCIAL MEDIA SR STRATEGY MANAGER Temperature 98.0 F 05/06/22 01:11 SOCIAL MEDIA SR STRATEGY MANAGER Pulse Rate 83 05/06/22 01:11 SOCIAL MEDIA SR STRATEGY MANAGER Respiratory Rate 18 05/06/22 01:11 SOCIAL MEDIA SR STRATEGY MANAGER Blood Pressure 174/81 H 05/06/22 01:11 SOCIAL MEDIA SR STRATEGY MANAGER Pulse Oximetry 99 05/06/22 01:11 SOCIAL MEDIA SR STRATEGY MANAGER Oxygen Delivery Method 05/06/22 01:11 SOCIAL MEDIA SR STRATEGY MANAGER Medical Decision Making Medical Records Medical records reviewed: Yes I reviewed the patient's medical records Lab Data Lab results reviewed: Yes I reviewed the patient's lab results Discharge Plan Discharge Prescriptions: No Action calcium acetate 667 mg tablet 667 mg PO BID omeprazole 20 mg capsule,delayed release(DR/EC) 20 mg PO DAILY Qty: 90 3RF lisinopril 2.5 mg tablet 2.5 mg PO DAILY Qty: 30 5RF metoprolol succinate 25 mg tablet extended release 24 hr 25 mg PO DAILY Qty: 30 5RF furosemide 80 mg tablet 80 mg PO DAILY Qty: 30 5RF Follow Up/Referrals: Louis Reyes MD [Primary Care Provider] -
--- OUTSIDE RECORDS SUMMARY | 2022-05-06 01:59 | XMS_ITS | Encounter Summary ---
:1940 Author Organization [facility] Address [address] [place] [address] Care Team Providers Name Role Phone Unavailable Primary Care Provider Unavailable Reason for Referral Outpatient (Routine) - Closed Specialty Diagnoses / Procedures Referred By Contact Refer red To Contact Diagnoses Failure Heart (HCC) Clark Rojo M.D. [facility] Procedures Echo Transthoracic (TTE) [address] [place] [phone] Referral ID Status Reason Start Date Expiration Date Visits Requ ested Visits Authorized [id number] Closed 08/01/2021 08/01/2022 1 1 NT SERVICE SUPERVISOR Reason for Visit Outpatient (Routine) - Closed Specialty Diagnoses / Procedures Referred By Contact Refer red To Contact Diagnoses Failure Heart (HCC) Clark Rojo M.D. [facility] Procedures Echo Transthoracic (TTE) [address] [place] [phone] Referral ID Status Reason Start Date Expiration Date Visits Requ ested Visits Authorized [id number] Closed 08/01/2021 08/01/2022 1 1 Encounter Details Date Type Department Care Team Description 08/21/2021 Hospital Encounter Department of Zeenat Rojo Heart (HCC) Cardiovascular Diseases Mahnaz Rodas in [facility] [address] [facility] [address] [place] [phone] Social History Tobacco Use Types Packs/Day Years [...] ) Results for this WITH COLOR AND CLIENT SERVICE SUPERVISOR procedure are in DOPPLER the results section. documented in this encounter Results (TTE) 2D LIMITED WITH COLOR AND DOPPLER (08/21/2021 4:16 PM CLIENT SERVICE SUPERVISOR) [facility] gist Method Time Signature Ejection Fraction [...] / / Volume Laterality 08/21/2021 2:56 PM CLIENT SERVICE SUPERVISOR Impressions 08/21/2021 11:20 PM CLIENT SERVICE SUPERVISOR Echocardiogram performed per left ventricular function protocol. [...] Order-L evel Documents. Narrative 08/21/2021 11:20 PM CLIENT SERVICE SUPERVISOR For the complete report, see the Order-Level [...]
--- OUTSIDE RECORDS SUMMARY | 2022-05-06 01:59 | XMS_ITS | Encounter Summary ---
:[address] [facility] Address [address] [place] [address] Care Team Providers Name Role Phone Unavailable Primary Care Provider Unavailable Reason for Visit Reason Comments Med Refill Encounter Details Date Type Department Care Team Description 04/22/2021 Refill [facility], [facility], Chantelle Zapata, Med Refill [facility], Abran NÚÑEZ C. N.PKandis, D.N.PKandis [facility] [address] [place] [address] [place] [phone] [place] [address] [phone] Social History Tobacco Use Types Packs/Day Years Used Date Smoking Tobacco: Every Day Cigars Comments: A few puffs a day Sex Assigned at Date Recorded Not on file documented as of this encounter Plan of Treatment Not on filedocumented as of this encounter Visit Diagnoses Not on filedocumented in this encounter
--- OUTSIDE RECORDS SUMMARY | 2022-05-06 01:59 | XMS_ITS | Encounter Summary ---
:1940 Author Organization [facility] Address [address] [place] [address] Care Team Providers Name Role Phone Unavailable Primary Care Provider Unavailable Encounter Details Date Type Department Care Team Description 08/22/2021 Hospital Encounter Department of Timi, Failure Heart ([facility]) Laboratory Medicine Mahnaz Rodas and Pathology, [address], in [place], [place] [address] [place] [address] [place], [place] (Work) [phone] Social History Tobacco Use Types Packs/Day Years [...] Failure Heart Results f or this AM COOK JELLY ([facility]) procedure are i n the results section. NT-PRO B-TYPE Routine 08/22/2021 7:16 Failure Heart Results fo r this NATRIURETIC PEPTIDE AM COOK JELLY ([facility]) procedur e are in (BNP), S the results section. CBC WITH DIFFERENTIAL, B Routine 08/22/2021 7:16 Failure Heart Results for this AM COOK JELLY ([facility]) procedure are i n the results section. BUN (BLOOD UREA Routine 08/22/2021 7:16 Failure Heart Results for this NITROGEN), S/P AM COOK JELLY ([facility]) procedure are in the results section. ASPARTATE Routine 08/22/2021 7:16 Failure Heart Results for this AMINOTRANSFERASE (AST), AM COOK JELLY ([facility]) proc edure are in S/P the results section. THYROID-STIMULATING Routine 08/22/2021 7:16 Failure Heart Resu lts for this HORMONE-SENSITIVE AM COOK JELLY ([facility]) procedure are in (S-TSH) the results section. SODIUM, S/P Routine 08/22/2021 7:16 Failure Heart Results for this AM COOK JELLY ([facility]) procedure are i n the results section. POTASSIUM, S/P Routine 08/22/2021 7:16 Failure Heart Results f or this AM COOK JELLY ([facility]) procedure are i n the results section. GLUCOSE, FASTING, S/P Routine 08/22/2021 7:16 Failure Heart Re sults for this AM COOK JELLY ([facility]) procedure are i n the results section. CREATININE WITH EGFR, Routine 08/22/2021 7:16 Failure Heart Re sults for this S/P AM COOK JELLY ([facility]) procedure are i n the results section. BICARBONATE, B/S/P Routine 08/22/2021 7:16 Failure Heart Resul ts for this AM COOK JELLY ([facility]) procedure are i n the results section. documented in this encounter Results (ABNORMAL) NT-Pro B-Type Natriuretic Peptide (BNP) (08/22/2021 7:16 AM COOK JELLY) athologist Signature NT-Pro BNP >59802 (H) <=239 08/22/2021 DTL pg/mL 8:56 AM [facility] Comment: NT-proBNP values less than 300 pg/mL [...] (Blood, 08/22/2021 7:16 AM 08/22/19 7:57 Venous) [facility] AM [facility] Clark Rojo M.D. LAB BLOOD ADD-ON Performing Organization Address City/[facility] [place] Phon e Number [facility] - [address] [place], [place] [address] [place] [address] [place] [address] Potassium (08/22/2021 7:16 AM COOK JELLY) [facility] Potassium, S 4.5 3.6 - 5.2 08/22/2021 DTL mmol/L 8:36 AM COOK [facility] Specimen Anatomical Collection Method Collection Time Receive d Time (Source) Location / / Volume Laterality Blood (Blood, 08/22/2021 7:16 AM 08/22/19 7:57 Venous) [facility] AM [facility] Clark Rojo M.D. LAB BLOOD ADD-ON Performing Organization Address City/State/[facility] [place] Phon e Number [facility] - [address] [place], [place] [address] [place] [address] [facility] [address] Bicarbonate (08/22/2021 7:16 AM COOK JELLY) athologist [facility] Bicarbonate, S 25 22 - 29 08/22/2021 DTL mmol/L 8:36 AM [facility] Specimen Anatomical Collection Method Collection Time Receive d Time (Source) Location / / Volume Laterality Blood (Blood, 08/22/2021 7:16 AM 08/22/19 7:57 Venous) [facility] AM [facility] Clark Rojo M.D. LAB BLOOD ADD-ON Performing Organization Address City/State/ZIP [facility] Phon e Number [facility] - [address] [place] [address] Laboratories-[address] S-TSH (Thyroid-Stimulating Hormone - Sensitive) (08/22/2021 7:16 AM COOK JELLY) P athologist Signature TSH, Sensitive 1.3 0.3 - 4.2 08/22/2021 DTL mIU/L 8:35 AM [facility] Specimen Anatomical Collection Method Collection Time Receive d Time (Source) Location / / Volume Laterality Blood (Blood, 08/22/2021 7:16 AM 08/22/19 7:57 Venous) [facility] AM [facility] Clark Rojo M.D. LAB BLOOD ADD-ON Performing Organization Address [facility] [place] Phon e Number [facility] - [address] [place] [address] [place] [address] Laboratories[address] (ABNORMAL) CBC with Differential, Blood (08/22/2021 7:16 AM COOK JE[facility]) Patholo gist Method Time Signature Hemoglobin 10.2 (L) 11.6 - 08/22/2021 DTL 15.0 g/dL 7:54 AM [facility] Hematocrit 30.4 (L) 35.5 - 08/22/2021 DTL 44.9 % 7:54 AM [facility] Erythrocytes 3.63 (L) 3.92 - 08/22/2021 DTL 5.13 7:54 AM [facility] x10(12)/L MCV 83.7 78.2 - 08/22/2021 DTL 97.9 fL 7:54 AM [facility] RBC Distrib Width 16.5 (H) 12.2 - 08/22/2021 DTL 16.1 % 7:54 AM [facility] Platelet Count 306 157 - 371 08/22/2021 DTL x10(9)/L 7:54 AM [facility] Leukocytes 6.2 3.4 - 9.6 08/22/2021 DTL x10(9)/L 7:54 AM [facility] Neutrophils 3.85 1.56 - 08/22/2021 DTL 6.45 7:54 AM [facility] x10(9)/L Lymphocytes 1.43 0.95 - 08/22/2021 DTL 3.07 7:54 AM [facility] x10(9)/L Monocytes 0.67 0.26 - 08/22/2021 DTL 0.81 7:54 AM [facility] x10(9)/L Eosinophils 0.15 0.03 - 08/22/2021 DTL 0.48 7:54 AM [facility] x10(9)/L Basophils 0.08 0.01 - 08/22/2021 DTL 0.08 7:54 AM [facility] x10(9)/L Specimen Anatomical Collection Method Collection Time Receive d Time (Source) Location / / Volume Laterality Blood (Blood, 08/22/2021 7:16 AM 08/22/19 7:40 Venous) [facility] AM [facility] Clark Rojo M.D. LAB BLOOD ADD-ON Performing Organization Address City/State/ZIP Code Phon e Number [facility] - [address] [place] [address] [facility] [place] [place] [address] [facility] 200 [facility] (ABNORMAL) Lipid Panel (08/22/2021 7:16 AM COOK JELLY) athologist Signature Cholesterol, 218 (H) mg/dL 08/22/2021 DTL Total 8:35 AM [facility] Comment: ----REFERENCE VALUE---- Desirable: < 200 Borderline high: 200 - 239 High: > or = 240 Triglycerides 75 mg/dL 08/22/2021 8:35 AM [facility] DTL Comment: ----REFERENCE VALUE---- Normal: <150 Borderline high: 150-199 High: 200-499 Very high: > or =500 Cholesterol, HDL, S 73 >=50 mg/dL 08/22/2021 8:35 AM [facility] DTL Calculated LDL 130 (H) mg/dL 08/22/2021 8:35 AM [facility] DT L Comment: ----REFERENCE VALUE---- Desirable: <100 mg/dL Above Desirable: 100-129 mg/dL Borderline High: 130-159 mg/dL High: 160-189 mg/dL Very High: >=190 mg/dL Cholesterol, Non-HDL, Calculated 145 mg/dL 022 8:35 AM [facility] DTL Comment: ----REFERENCE VALUE---- Desirable: <130 Above Desirable: 130-159 Borderline high: 160-189 High: 190-219 Very high: > or =220 Specimen Anatomical Collection Method Collection Time Receive d Time (Source) Location / / Volume Laterality Blood (Blood, 08/22/2021 7:16 AM 08/22/19 7:57 Venous) [facility] AM [facility] Clark Rojo M.D. LAB BLOOD ADD-ON Performing Organization Address City/[facility]/ZIP [facility] Phon e Number [facility] - [address] (ABNORMAL) BUN (Blood Urea Nitrogen) (08/22/2021 7:16 AM COOK JELLY) P athologist Signature BUN (Blood Urea 42 (H) 6 - 21 08/22/2021 DTL Nitrogen), S mg/dL 8:36 AM [facility] Specimen Anatomical Collection Method Collection Time Receive d Time (Source) Location / / Volume Laterality Blood (Blood, 08/22/2021 7:16 AM 08/22/19 7:57 Venous) [facility] AM [facility] Clark Rojo M.D. LAB BLOOD ADD-ON Performing Organization Address City/[facility]/ZIP Code Phon e Number [facility] - [address] [address] [facility]-[address] AST (Aspartate Aminotransferase) (08/22/2021 7:16 AM COOK JE[facility]) Patholo gist Method Time Signature Aspartate 21 8 - 43 08/22/2021 DTL Aminotransferase U/L 8:36 AM C[facility] JE[facility] (AST), S Specimen Anatomical Collection Method Collection Time Receive d Time (Source) Location / / Volume Laterality Blood (Blood, 08/22/2021 7:16 AM 08/22/19 7:57 Venous) [facility] AM [facility] Clark Rojo M.D. LAB BLOOD ADD-ON Performing Organization Address City/[facility]/ZIP Code Phon e Number [facility] - [address] [place], [place] [address] [place] [address] [facility] [address] (ABNORMAL) Creatinine with Estimated GFR (08/22/2021 7:16 AM COOK JELLY) Analysis Performed At Patho logist Time Signature Creatinine 6.02 (H) 0.59 - 08/22/2021 DTL 1.04 mg/dL 8:35 AM [facility] eGFR-Non <15 (L) >=60 08/22/2021 DTL Black/ mL/min/BSA 8:35 AM [facility] [place] Comment: ----ADDITIONAL INFORMATION---- Estimated GFR calculated using the 2009 CKD_EPI creatinine equation. eGFR-Black/ <15 (L) >=60 mL/min/BSA 2021 8:35 AM [facility] DTL Comment: ----ADDITIONAL INFORMATION---- Estimated GFR calculated using the 2009 CKD_EPI creatinine equation. Specimen Anatomical Collection Method Collection Time Receive d Time (Source) Location / / Volume Laterality Blood (Blood, 08/22/2021 7:16 AM 08/22/19 7:57 Venous) [facility] AM [facility] Clark Rojo M.D. LAB BLOOD ADD-ON Performing Organization Address City/State/ZIP Code Phon e Number [facility] - [address] [address] [facility] [address] Glucose, Fasting (08/22/2021 7:16 AM [facility]) P athologist Signature Glucose, P 83 70 - 100 08/22/2021 DTL mg/dL 8:10 AM [facility] Last Intake 12 hr 08/22/2021 DTL 7:57 AM [facility] Specimen Anatomical Collection Method Collection Time Receive d Time (Source) Location / / Volume Laterality Blood (Blood, 08/22/2021 7:16 AM 08/22/19 7:57 Venous) [facility] AM [facility] Clark Rojo M.D. LAB BLOOD NON ADD-ON Performing Organization Address City/State/ZIP Code Phon e Number [facility] - [address] [place], [place] [address] [facility] [place] [place] [address] [facility] [address] Sodium (08/22/2021 7:16 AM [facility]) P athologist Signature Sodium, S 141 135 - 145 08/22/2021 8:36 DTL mmol/L AM [facility] Specimen Anatomical Collection Method Collection Time Receive d Time (Source) Location / / Volume Laterality Blood (Blood, 08/22/2021 7:16 AM 08/22/19 7:57 Venous) [facility] AM [facility] Clark Rojo M.D. LAB BLOOD ADD-ON Performing Organization Address City/State/ZIP Code Phon e Number [facility] - [address] [place], [place] [address] [facility] [place] [address] [facility] [address] documented in this encounter Visit Diagnoses Diagnosis Failure Heart (HCC) documented in this encounter
--- OUTSIDE RECORDS SUMMARY | 2022-05-06 01:59 | XMS_ITS | Encounter Summary ---
:1940 Author Organization [facility] Address [address] [place] [address] Care Team Providers Name Role Phone Unavailable Primary Care Provider Unavailable Reason for Referral Outpatient (Routine) - Authorized Specialty Diagnoses / Procedures Referred By Contact Refer red To Contact Diagnoses Acute On Chronic Systolic (Congestive) Heart Failure (HCC) Cheyenne Andino M.D., M.B.A. [facility] Procedures NM Cardiac Amyloid PYP SPECT CT [address] [place] [address] Referral ID Status Reason Start Date Expiration Date Visits V isits Requested Authorized [id number] Authorized 08/22/2021 08/22/2022 6 6 Reason for Visit Outpatient (Routine) - Authorized Specialty Diagnoses / Procedures Referred By Contact Refer red To Contact Diagnoses Acute On Chronic Systolic (Congestive) Heart Failure (HCC) Cheyenne Andino M.D., M.B.A. [facility] Procedures NM Cardiac Amyloid PYP SPECT CT [address] [place], [place] [address] Referral ID Status Reason Start Date Expiration Date Visits V isits Requested Authorized [id number] Authorized 08/22/2021 08/22/2022 6 6 Encounter Details Date Type Department Care Team Description 09/19/2021 Hospital Encounter Department of Cheyenne Andino Acute On Chronic Radiology, John Joya, M.B.A. Systolic (Congestive) Building, in [address] [facility] Heart Failure (HCC) [place], [place] [address] [facility] [address] [place], [place] [phone] (Work) [phone] Social History Tobacco Use Types Packs/Day Years [...] PDF For Result Cheyenne Andino M.D., M.B.A. [facility] PROCEDURES Performing Organization Address City/State/ZIP Code [...]
--- OUTSIDE RECORDS SUMMARY | 2022-05-06 01:59 | XMS_ITS | Encounter Summary ---
:1940 Author Organization [facility] Address [address] [place] [address] Care Team Providers Name Role Phone Unavailable Primary Care Provider Unavailable Reason for Referral Outpatient (Routine) - Closed Specialty Diagnoses / Referred By Contact Referred To Contact Procedures Cardiovascular Diseases / Diagnoses Acute On Chronic Systolic (Congestive) Heart Failure (HCC) [facility] Cardiovascular Disease Chantelle Zapata APRN C.N.P., D.N.P. [address] [place] [phone] Referral ID Status Reason Start Date Expiration Date Visits Requ ested Visits Authorized [id number] Closed 04/20/2021 04/20/2022 1 1 Encounter Details Date Type Department Care Team Description 04/20/2021 Clinical Communication [facility] Aubree, [address] [place] [address] Chantelle Zapata APR[place]OCK[place], [place] C.N.PKandis, D.N.P. [phone] [place] [phone] Social History Tobacco Use Types Packs/Day Years [...]
--- OUTSIDE RECORDS SUMMARY | 2022-05-06 01:59 | XMS_ITS | Encounter Summary ---
:1940 Author Organization [facility] Address [address] [place] [address] Care Team Providers Name Role Phone Unavailable Primary Care Provider Unavailable Reason for Visit Reason Comments Follow-up Encounter Details Date Type Department Care Team Description 08/25/2021 Clinical Communication [facility] Mahnaz, M. B.A. in [facility] jojo [address] [facility] [address] [place] [phone] Social History Tobacco Use Types Packs/Day Years [...] see this patient back? Thank you, Inez PER INSTALLER documented in this encounter Plan of Treatment Not on filedocumented as of this encounter Visit Diagnoses Not on filedocumented in this encounter
--- OUTSIDE RECORDS SUMMARY | 2022-05-06 01:59 | XMS_ITS | Encounter Summary ---
:1940 Author Organization [facility] Address [address] [place] [address] Care Team Providers Name Role Phone Unavailable Primary Care Provider Unavailable Reason for Visit Outpatient (Routine) - Closed Specialty Diagnoses / Procedures Referred By Contact Refer red To Contact Cardiovascular Disease Cheyenne Andino M.D., [facility] Rachel M.B.A. [address] [place] [phone] Referral ID Status Reason Start Date Expiration Date Visits Requ ested Visits Authorized [id number] Closed 08/22/2021 08/22/2022 1 1 Encounter Details Date Type Department Care Team Description 09/19/2021 Office Visit Department of Cheyenne Andino Acute On Chron ic Systolic (Congestive) Heart Failure (HCC) (Primary Dx); Cardiovascular Medicine Mahnaz, M. B.A. 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
--- OUTSIDE RECORDS SUMMARY | 2022-05-06 01:59 | XMS_ITS | Clinical Summary ---
:1940 Author Organization [facility] Address [address] [place] [address] Care Team Providers Name Role Phone Unavailable Primary Care Provider Unavailable Source Comments Patient records contain information from all sites at [facility]. For routine questions regarding patient records, call [phone] during business hours, M-F 8:00 AM - 5:00 PM Central Time. Record requests for emergency care only can be directed to [phone] at any time.[facility] Allergies Active Allergy Reactions Severity Noted Date [...] 04/17/2022 04/17/2021 Medical Devices Implanted Type Area Ladies Locker Room Attendant Device Shelf Model / Identifier Expiration Serial / Date Lot Implantable Implantable Chest [place] Insurance Payer Benefit Plan / Subscriber ID Effective Dates Phone Addre ss Type Group AARP AAR MEDICARE [id number] 2021-Present [phone] [address] [address] [place] [address] ([place]) [place] [address] Advance Directives For more information, please contact: [phone] Latest Code Status on File Code Status Date Activated Date Inactivated Comments Full Code 04/17/2021 2:27 PM 04/20/2021 3:13 PM Question Answer Comments Full Code: Discussed
--- OUTSIDE RECORDS SUMMARY | 2022-05-06 01:59 | XMS_ITS | Encounter Summary ---
:1940 Author Organization [facility] Address [address] [place] [address] Care Team Providers Name Role Phone Unavailable Primary Care Provider Unavailable Reason for Referral Outpatient (Routine) - Closed Specialty Diagnoses / Procedures Referred By Contact Refer red To Contact Diagnoses Failure Heart (HCC) Clark Rojo M.D. [facility] Procedures Echo Transthoracic (TTE) [address] [place] [address] Referral ID Status Reason Start Date Expiration Date Visits Requ ested Visits Authorized [id number] Closed 08/01/2021 08/01/2022 1 1 utpatient (Routine) - Closed Specialty Diagnoses / Procedures Referred By Contact Refer red To Contact Diagnoses Failure Heart (HCC) Clark Rojo M.D. [facility] Procedures ECG 12 Lead [address] [place] [address] Referral ID Status Reason Start Date Expiration Date Visits Requ ested Visits Authorized [id number] Closed 08/01/2021 08/01/2022 1 1 utpatient (Routine) - Closed Specialty Diagnoses / Procedures Referred By Contact Refer red To Contact Diagnoses Failure Heart (HCC) Clark Rojo M.D. [facility] Procedures DX Chest AP or PA and Lateral 2 Views [address] [place] [address] Referral ID Status Reason Start Date Expiration Date Visits Requ ested Visits Authorized [id number] Closed 08/01/2021 08/01/2022 1 1 E ATTORNEY Encounter Details Date Type Department Care Team Description 08/01/2021 Orders Only Department of Clark Rojo Failure Hea rt (HCC) Cardiovascular Medicine Mahnaz (Primary Dx) in [facility] potato grader [address] [place] [phone] Social History Tobacco Use Types Packs/Day Years Used Date Smoking Tobacco: Every Day Cigars Comments: A few puffs a day Sex Assigned at Date Recorded Not on file documented as of this encounter Plan of Treatment Not on filedocumented as of this encounter Results ECG 12 Lead (08/22/2021 12:02 PM TITLE ATTORNEY) P athologist Signature Ventricular Rate 74 BPM MUSE ECG/Min DC Interval 148 ms MUSE QRSD Interval 140 ms MUSE QT Interval 424 ms MUSE QTC Interval 470 ms MUSE P [place] 33 degrees MUSE R [place] -47 degrees MUSE T Wave [place] 75 degrees MUSE Specimen Anatomical Collection Method Collection Time Receive d Time (Source) Location / / Volume Laterality 08/22/2021 12:02 08/22/2021 PM TITLE ATTORNEY 12:04 PM TITLE ATTORNEY Impressions MUSE - 08/22/2021 12:04 PM TITLE ATTORNEY Normal sinus rhythm Right bundle branch block [...] and Lateral 2 Views (08/22/2021 11:36 AM TITLE ATTORNEY) Anatomical Region Laterality Modality Chest, Thoracic RST LOS, Thoracic ARZ LOS, Thoracic N/A Digital Radiography FLA LOS Specimen (Source) Anatomical Collection Method Collection Time Re ceived Time Location / / Volume Laterality 08/22/2021 11:38 AM TITLE ATTORNEY Impressions 08/22/2021 11:39 AM TITLE ATTORNEY In the interval from the outside study of 04/17/2021, cardiac silhouette has decreased in size and is now mildly enlarged. Diff use groundglass opacities with pulmonary venous hypertension and interstitial edema have significantl y improved. Mild residual interstitial opacity within the lower lungs, especially on the right. De nsely calcified aorta. Degenerative changes thoracic spine. Narrative 08/22/2021 11:39 AM TITLE ATTORNEY EXAM: ??DX CHEST AP OR PA AND [...] B-Type Natriuretic Peptide (BNP) (08/22/2021 7:16 AM TITLE ATTORNEY) P athologist Signature NT-Pro BNP >16046 (H) <=239 08/22/2021 DTL pg/mL 8:56 AM TITLE ATTORNEY Comment: NT-proBNP values less than 300 pg/mL [...] (Blood, 08/22/2021 7:16 AM 08/22/19 7:57 Venous) TITLE ATTORNEY AM TITLE ATTORNEY Clark Rojo M.D. LAB BLOOD ADD-ON Performing Organization Address City/[facility]/ZIP Code Phon e Number [facility] - [address] Potassium (08/22/2021 7:16 AM TITLE ATTORNEY) P athologist Signature Potassium, S 4.5 3.6 - 5.2 08/22/2021 DTL mmol/L 8:36 AM TITLE ATTORNEY Specimen Anatomical Collection Method Collection Time Receive d Time (Source) Location / / Volume Laterality Blood (Blood, 08/22/2021 7:16 AM 08/22/19 7:57 Venous) TITLE ATTORNEY AM TITLE ATTORNEY Clark Rojo M.D. LAB BLOOD ADD-ON Performing Organization Address City/[facility]/ZIP Code Phon e Number [facility] - 200 [place], [place] [address] [place] [address] Bicarbonate (08/22/2021 7:16 AM TITLE ATTORNEY) P athologist Signature Bicarbonate, S 25 22 - 29 08/22/2021 DTL mmol/L 8:36 AM TITLE ATTORNEY Specimen Anatomical Collection Method Collection Time Receive d Time (Source) Location / / Volume Laterality Blood (Blood, 08/22/2021 7:16 AM 08/22/19 7:57 Venous) TITLE ATTORNEY AM TITLE ATTORNEY Clark Rojo M.D. LAB BLOOD ADD-ON Performing Organization Address City/[facility]/ZIP Code Phon e Number [facility] - 200 [place], [place] [address] [facility] [place] [address] Laboratories-[address] S-TSH (Thyroid-Stimulating Hormone - Sensitive) (08/22/2021 7:16 AM TITLE ATTORNEY) P athologist Signature TSH, Sensitive 1.3 0.3 - 4.2 08/22/2021 DTL mIU/L 8:35 AM TITLE ATTORNEY Specimen Anatomical Collection Method Collection Time Receive d Time (Source) Location / / Volume Laterality Blood (Blood, 08/22/2021 7:16 AM 08/22/19 7:57 Venous) TITLE ATTORNEY AM TITLE ATTORNEY Clark Rojo M.D. LAB BLOOD ADD-ON Performing Organization Address City/State/ZIP Code Phon e Number [facility] - [address] [place] [address] [facility] [place] [address] [address] (ABNORMAL) CBC with Differential, Blood (08/22/2021 7:16 AM TITLE ATTORNEY) Patholo gist Method Time Signature Hemoglobin 10.2 (L) 11.6 - 08/22/2021 DTL 15.0 g/dL 7:54 AM TITLE ATTORNEY Hematocrit 30.4 (L) 35.5 - 08/22/2021 DTL 44.9 % 7:54 AM TITLE ATTORNEY Erythrocytes 3.63 (L) 3.92 - 08/22/2021 DTL 5.13 7:54 AM TITLE ATTORNEY x10(12)/L MCV 83.7 78.2 - 08/22/2021 DTL 97.9 fL 7:54 AM TITLE ATTORNEY RBC Distrib Width 16.5 (H) 12.2 - 08/22/2021 DTL 16.1 % 7:54 AM TITLE ATTORNEY Platelet Count 306 157 - 371 08/22/2021 DTL x10(9)/L 7:54 AM TITLE ATTORNEY Leukocytes 6.2 3.4 - 9.6 08/22/2021 DTL x10(9)/L 7:54 AM TITLE ATTORNEY Neutrophils 3.85 1.56 - 08/22/2021 DTL 6.45 7:54 AM TITLE ATTORNEY x10(9)/L Lymphocytes 1.43 0.95 - 08/22/2021 DTL 3.07 7:54 AM TITLE ATTORNEY x10(9)/L Monocytes 0.67 0.26 - 08/22/2021 DTL 0.81 7:54 AM TITLE ATTORNEY x10(9)/L Eosinophils 0.15 0.03 - 08/22/2021 DTL 0.48 7:54 AM TITLE ATTORNEY x10(9)/L Basophils 0.08 0.01 - 08/22/2021 DTL 0.08 7:54 AM TITLE ATTORNEY x10(9)/L Specimen Anatomical Collection Method Collection Time Receive d Time (Source) Location / / Volume Laterality Blood (Blood, 08/22/2021 7:16 AM 08/22/19 7:40 Venous) TITLE ATTORNEY AM TITLE ATTORNEY Clark Rojo M.D. LAB BLOOD ADD-ON Performing Organization Address City/State/ZIP Code Phon e Number [facility] - 200 [place], [place] [address] [facility] [place] [address] Laboratories-[facility] 200 [facility] (ABNORMAL) Lipid Panel (08/22/2021 7:16 AM TITLE ATTORNEY) athologist Signature Cholesterol, 218 (H) mg/dL 08/22/2021 DTL Total 8:35 AM TITLE ATTORNEY Comment: ----REFERENCE VALUE---- Desirable: < 200 Borderline high: 200 - 239 High: > or = 240 Triglycerides 75 mg/dL 08/22/2021 8:35 AM TITLE ATTORNEY DTL Comment: ----REFERENCE VALUE---- Normal: <150 Borderline high: 150-199 High: 200-499 Very high: > or =500 Cholesterol, HDL, S 73 >=50 mg/dL 08/22/2021 8:35 AM TITLE ATTORNEY DTL Calculated LDL 130 (H) mg/dL 08/22/2021 8:35 AM TITLE ATTORNEY DT L Comment: ----REFERENCE VALUE---- Desirable: <100 mg/dL Above Desirable: 100-129 mg/dL Borderline High: 130-159 mg/dL High: 160-189 mg/dL Very High: >=190 mg/dL Cholesterol, Non-HDL, Calculated 145 mg/dL 022 8:35 AM TITLE ATTORNEY DTL Comment: ----REFERENCE VALUE---- Desirable: <130 Above Desirable: 130-159 Borderline high: 160-189 High: 190-219 Very high: > or =220 Specimen Anatomical Collection Method Collection Time Receive d Time (Source) Location / / Volume Laterality Blood (Blood, 08/22/2021 7:16 AM 08/22/19 7:57 Venous) TITLE ATTORNEY AM TITLE ATTORNEY Clark Rojo M.D. LAB BLOOD ADD-ON Performing Organization Address City/State/ZIP Code Phon e Number [facility] - [address] [place], [place] [address] [place] [address] (ABNORMAL) BUN (Blood Urea Nitrogen) (08/22/2021 7:16 AM TITLE ATTORNEY) P athologist Signature BUN (Blood Urea 42 (H) 6 - 21 08/22/2021 DTL Nitrogen), S mg/dL 8:36 AM TITLE ATTORNEY Specimen Anatomical Collection Method Collection Time Receive d Time (Source) Location / / Volume Laterality Blood (Blood, 08/22/2021 7:16 AM 08/22/19 7:57 Venous) TITLE ATTORNEY AM TITLE ATTORNEY Clark Rojo M.D. LAB BLOOD ADD-ON Performing Organization Address City/State/ZIP Code Phon e Number [facility] - [address] [place], [place] [address] [place] [address] [place], [place] [phone] [place] [address] AST (Aspartate Aminotransferase) (08/22/2021 7:16 AM TITLE ATTORNEY) Patholo gist Method Time Signature Aspartate 21 8 - 43 08/22/2021 DTL Aminotransferase U/L 8:36 AM TITLE ATTORNEY (AST), S Specimen Anatomical Collection Method Collection Time Receive d Time (Source) Location / / Volume Laterality Blood (Blood, 08/22/2021 7:16 AM 08/22/19 7:57 Venous) TITLE ATTORNEY AM TITLE ATTORNEY Clark Rojo M.D. LAB BLOOD ADD-ON Performing Organization Address City/State/ZIP Code Phon e Number [facility] - [address] [place], [place] [address] [facility] [place] [address] [place] [address] (ABNORMAL) Creatinine with Estimated GFR (08/22/2021 7:16 AM TITLE ATTORNEY) Analysis Performed At [facility] Time Signature Creatinine 6.02 (H) 0.59 - 08/22/2021 DTL 1.04 mg/dL 8:35 AM TITLE ATTORNEY eGFR-Non <15 (L) >=60 08/22/2021 DTL Black/ mL/min/BSA 8:35 AM TITLE ATTORNEY Filipino Comment: ----ADDITIONAL INFORMATION---- Estimated GFR calculated using the 2009 CKD_EPI creatinine equation. eGFR-Black/ <15 (L) >=60 mL/min/BSA 2021 8:35 AM TITLE ATTORNEY DTL Comment: ----ADDITIONAL INFORMATION---- Estimated GFR calculated using the 2009 CKD_EPI creatinine equation. Specimen Anatomical Collection Method Collection Time Receive d Time (Source) Location / / Volume Laterality Blood (Blood, 08/22/2021 7:16 AM 08/22/19 7:57 Venous) TITLE ATTORNEY AM TITLE ATTORNEY Clark Rojo M.D. LAB BLOOD ADD-ON Performing Organization Address City/[facility] Phon e Number [facility] - [address] [place], [place] [phone] [place] [address] Glucose, Fasting (08/22/2021 7:16 AM TITLE ATTORNEY) athologist Signature Glucose, P 83 70 - 100 08/22/2021 DTL mg/dL 8:10 AM TITLE ATTORNEY Last Intake 12 hr 08/22/2021 DTL 7:57 AM TITLE ATTORNEY Specimen Anatomical Collection Method Collection Time Receive d Time (Source) Location / / Volume Laterality Blood (Blood, 08/22/2021 7:16 AM 08/22/19 7:57 Venous) TITLE ATTORNEY AM TITLE ATTORNEY Clark Rojo M.D. LAB BLOOD NON ADD-ON Performing Organization Address City/State/[facility] Phon e Number [facility] - [phone] [place] [address] Sodium (08/22/2021 7:16 AM TITLE ATTORNEY) athologist [facility] Sodium, S 141 135 - 145 08/22/2021 8:36 DTL mmol/L AM TITLE ATTORNEY Specimen Anatomical Collection Method Collection Time Receive d Time (Source) Location / / Volume Laterality Blood (Blood, 08/22/2021 7:16 AM 08/22/19 7:57 Venous) TITLE ATTORNEY AM TITLE ATTORNEY Clark Rojo M.D. LAB BLOOD ADD-ON Performing Organization Address City/State/ZIP Code Phon e Number [facility] - 200 [place], [place] [address] [facility] [place] [address] Laboratories-[facility] 200 [facility] (TTE) 2D LIMITED WITH COLOR AND DOPPLER (08/21/2021 4:16 PM TITLE ATTORNEY) [facility] Method Time Signature Ejection Fraction 53 [...] / / Volume Laterality 08/21/2021 2:56 PM TITLE ATTORNEY Impressions 08/21/2021 11:20 PM TITLE ATTORNEY Echocardiogram performed per left ventricular function protocol. [...] For the complete report, see the Order-L [employer] Documents. Narrative 08/21/2021 11:20 PM TITLE ATTORNEY For the complete report, see the Order-Level [...]
--- OUTSIDE RECORDS SUMMARY | 2022-05-06 01:59 | XMS_ITS | Encounter Summary ---
:1940 Author Organization [facility] Address [address] [place] [address] Care Team Providers Name Role Phone Unavailable Primary Care Provider Unavailable Reason for Referral Outpatient (Routine) - Closed Specialty Diagnoses / Procedures Referred By Contact Refer red To Contact Cardiovascular Disease Cheyenne Andino M.D., [facility] M.B.A. 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 [facility] Procedures NM Cardiac Amyloid PYP SPECT CT [address] [place], [place] [address] Referral ID Status Reason Start Date Expiration Date Visits V isits Requested Authorized [id number] Authorized 08/22/2021 08/22/2022 6 6 ER COASTER OPERATOR Reason for Visit Outpatient (Routine) - Closed Specialty Diagnoses / Referred By Contact Referred To Contact Procedures Cardiovascular Diseases / Diagnoses Acute On Chronic Systolic (Congestive) Heart Failure (HCC) [facility] Cardiovascular Disease Chantelle Zapata APRN, C.N.P., D.N.P. [address] [place], [place] [phone] Referral ID Status Reason Start Date Expiration Date Visits Requ ested Visits Authorized [id number] Closed 04/20/2021 04/20/2022 1 1 Encounter Details Date Type Department Care Team Description 08/22/2021 Comprehensive Visit Department of Cheyenne Andino, Acute O n Chronic Cardiovascular Medicine Mahnaz, M. B.A. Systolic in [facility] jojo [address] (Congestive) Heart [address] [facility] Failure (HCC) [address] [phone] [place] [address] Social History Tobacco Use Types Packs/Day Years Used Date Smoking Tobacco: Every Day Cigars Smokeless Tobacco: Former Qu it: 06/21/2008 Comments: A few puffs a day Sex Assigned at Date Recorded Not on file documented as of this encounter Last Filed Vital Signs Vital Sign Reading Time Taken Comments Blood Pressure 161/81 08/22/2021 1:32 PM ROLLER COASTER OPERATOR Pulse 75 08/22/2021 1:32 PM ROLLER COASTER OPERATOR Temperature - - Respiratory Rate - [...] dependence, and depression. She presented to the [facility] in March with shortness of breath and was found to have an ejection fraction of 25%, mild mitral regurgitation, right ventricular dysfunction. She improved with dialysis and medical therapy was initiated with low-dose lisinopril and metoprololsuccinate. Her son reports 1 further episode where she presented with sudden-onset shortness of breath after the initial presentation March, and was transferred to [facility], where she again improved withdialysis. Following this episode she had COVID-19 infection. Prior to this she had received her COVID vaccinations with the last dose in September. 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 She reports presenting with sudden-onset shortness of breath in July 2018 and was diagnosed with kidney disease at that time. She does not recall the details. She believes that she was probably hypertensive but had not been treated. In January, she was again admitted with shortness of breath and initiated dialysis. More recently, her son brought her to live with him in [place], but she is planning to move back to [place] in the summer. Her mother had a [...] 7:16 AM Result Value NT-Pro BNP, S >69276 (H) ASSESSMENT / PLAN #1 Acute On [...] follow up. Cheyenne Andino M.D., M.B.A. 08/22/21 ER COASTER OPERATOR documented in this encounter Plan of Treatment Scheduled Referrals Name Type Priority Associated Order Schedule Diagnoses Cardiovascular Disease Outpatient Routine 1 [facility] office visit (clinic) Referral starti ng 08/22/2021 unti l 11/19/2022 documented as of this encounter Results [place] FNA BX WO IMG 1ST LESION, HC [...] Component Value Ref Test Analysis Performed At [facility] Range Method Time Signature Result Summary [...] GRCh37 (hg19)). An online research opportunity called localbacon ([employer]), a project of [employer], is available for the recipient of this genetic test. This patient registry collects de-identified genetic and health information to advance the knowledge of genetic variant s. [facility] is a collaborator of [employer]. This may not be applicable for all [...] d onors will interfere with testing. Call [facility] for instru ctions for testing [...] and its performa nce characteristics determined by [facility] in a manner consistent with CLIA [...] City/State/ZIP Code Phon e Number [facility] - [address] [place], [place] [address] [facility] [place] [address] Laboratories-[facility] [address] documented in this encounter Visit Diagnoses Diagnosis Acute On Chronic Systolic (Congestive) H eart Failure (HCC) Acute On Chronic Systolic (Congestive) H eart Failure (HCC) Acute On Chronic Systolic (Congestive) H eart Failure (HCC) documented in this encounter
--- OUTSIDE RECORDS SUMMARY | 2022-05-06 01:59 | XMS_ITS | Encounter Summary ---
:1940 Author Organization [facility] Address [address] [place] [address] Care Team Providers Name Role Phone Unavailable Primary Care Provider Unavailable Reason for Visit Outpatient (Routine) - Closed Specialty Diagnoses / Procedures Referred By Contact Refer red To Contact Diagnoses Acute On Chronic Systolic (Congestive) Heart Failure (HCC) Cheyenne Andino M.D., M.B.A. [facility] Procedures Fat Aspirate [address] [place], [place] [phone] Referral ID Status Reason Start Date Expiration Date Visits Requ ested Visits Authorized [id number] Closed 08/22/2021 08/22/2022 1 1 Encounter Details Date Type Department Care Team Description 09/19/2021 Infusion Department of Infusion Cheyenne Andino M.D., [facility] (Congest[facility] [place] [address] [facility] Heart Failure (HCC) [address] [place] [phone] Social History Tobacco Use Types Packs/Day Years [...] Heart the resul ts Failure (HCC) section. [place] FNA BX WO IMG 1ST Routine 09/19/2021 2:27 PM Acute On Chron ic Results for this LESION CDT Systolic procedure are i n (Congestive) Heart the resul ts Failure (HCC) section. SUBCUTANEOUS FAT Routine 09/19/2021 6:18 AM Resul ts for this ASPIRATE CDT procedure are i n the results section. documented in this encounter Results [place] FNA BX WO IMG 1ST LESION, HC [...] Component Value Ref Test Analysis Performed At [facility] Method Time Signature 09/20/2021 [facility] 12:03 PM CDT Report Cuba Carbajal M.D. 09/20/2021 [facility] electronically 12:03 PM signed by CDT I verify that I have examined all relevant slides/materials for the specimen(s) and rendered or confirmed the diagnosis. Gross Description The subcutaneous fat aspirate used for diagnostic purposes 09/20/2021 [facility] consists of 0.5 mL fat. 12:03 PM CDT Interpretation FINAL DIAGNOSIS 09/20/2021 [facility] Congo red stain, abdominal subcutaneous [...] [facility] - [address] [place], [place] [address] [place] [address] Laboratories-[facility] [address] documented in this encounter Visit Diagnoses Diagnosis Acute On Chronic Systolic (Congestive) H eart Failure (HCC) documented in this encounter
--- OUTSIDE RECORDS SUMMARY | 2022-05-06 01:59 | XMS_ITS | Encounter Summary ---
:1940 Author Organization [facility] Address [address] [place] [address] Care Team Providers Name Role Phone Unavailable Primary Care Provider Unavailable Reason for Visit Outpatient (Routine) - Authorized Specialty Diagnoses / Procedures Referred By Contact Refer red To Contact Diagnoses Acute On Chronic Systolic (Congestive) Heart Failure (HCC) Cheyenne Andino M.D., M.B.A. [facility] Procedures NM Cardiac Amyloid PYP SPECT CT [address] [place] [address] Referral ID Status Reason Start Date Expiration Date Visits V isits Requested Authorized [id number] Authorized 08/22/2021 08/22/2022 6 6 Encounter Details Date Type Department Care Team Description 09/19/2021 Hospital Encounter Department of Radiology, Cheyenne Andino M.D., [place], in M.B.A. [place], [place] [address] [facility] [address] [place] [phone] Social History Tobacco Use Types Packs/Day Years [...] PDF For Result Procedure Note Luis F uTrner M.D. - 09/19/2021Formatt ing of this note might be different from the original. See PDF For Result Cheyenne Andino M.D., M.B.A. [facility] NM PROCEDURES Performing Organization Address City/State/ZIP Code Phon e Number [facility] CV MERGE CV MERGE NA documented in this encounter Visit Diagnoses Not on filedocumented in this encounter
--- OUTSIDE RECORDS SUMMARY | 2022-05-06 01:59 | XMS_ITS | Encounter Summary ---
:1940 Author Organization [facility] Address [address] [place] [address] Care Team Providers Name Role Phone Unavailable Primary Care Provider Unavailable Reason for Referral Outpatient (Routine) - Closed Specialty Diagnoses / Procedures Referred By Contact Refer red To Contact Diagnoses Failure Heart (HCC) Clark Rojo M.D. [facility] Procedures DX Chest AP or PA and Lateral 2 Views [address] [place] [address] [phone] Referral ID Status Reason Start Date Expiration Date Visits Requ ested Visits Authorized [id number] Closed 08/01/2021 08/01/2022 1 1 ESSING MANAGER Reason for Visit Outpatient (Routine) - Closed Specialty Diagnoses / Procedures Referred By Contact Refer red To Contact Diagnoses Failure Heart (HCC) Clark Rojo M.D. [facility] Procedures DX Chest AP or PA and Lateral 2 Views [address] [place] [phone] Referral ID Status Reason Start Date Expiration Date Visits Requ ested Visits Authorized [id number] Closed 08/01/2021 08/01/2022 1 1 Encounter Details Date Type Department Care Team Description 08/22/2021 Hospital Encounter Department of [place] Failure Heart (HCC) Radiology, Jaycob Rodas M.D. Building, in [address] [place] [address] [place] [phone] [place], [place] [phone] (Work) [phone] Social History Tobacco Use Types Packs/Day Years [...] this AND LATERAL 2 (most inpatients AM PROCESSING MANAGER (HCC) procedure are in VIEWS and all the results outpatients) section. documented in this encounter Results DX Chest AP or PA and Lateral 2 Views (08/22/2021 11:36 AM PROCESSING MANAGER) Anatomical Region Laterality Modality Chest, Thoracic RST LOS, Thoracic ARZ LOS, Thoracic N/A Digital Radiography FLA LOS Specimen (Source) Anatomical Collection Method Collection Time Re ceived Time Location / / Volume Laterality 08/22/2021 11:38 AM PROCESSING MANAGER Impressions 08/22/2021 11:39 AM PROCESSING MANAGER In the interval from the outside study of 04/17/2021, cardiac silhouette has decreased in size and is now mildly enlarged. Diff use groundglass opacities with pulmonary venous hypertension and interstitial edema have significantl y improved. Mild residual interstitial opacity within the lower lungs, especially on the right. De nsely calcified aorta. Degenerative changes thoracic spine. Narrative 08/22/2021 11:39 AM PROCESSING MANAGER EXAM: ??DX CHEST AP OR PA AND [...]
--- OUTSIDE RECORDS SUMMARY | 2022-05-06 01:59 | XMS_ITS | Encounter Summary ---
:1940 Author Organization [facility] Address [address] [place] [address] Care Team Providers Name Role Phone Unavailable Primary Care Provider Unavailable Encounter Details Date Type Department Care Team Description 09/19/2021 Lab Department of Laboratory Cheyenne Andino M.D. , Acute On Chronic Systolic Medicine and Pathology, M.B.A. (Congestive) Heart [address] Failure (HCC) [place], [place] [address] [place] [phone] [place] [address] [phone] Social History Tobacco Use Types Packs/Day Years [...] procedure are i n (Congestive) Heart [facility] ts Failure (HCC) section. documented in this encounter Results TTR Gene, Full Gene Analysis (09/19/2021 11:56 AM CDT) Component Value Ref Test Analysis Performed At [facility] Range Method Time Signature Result Summary [...] the TTR gene (GenBank accession number [id number]; [facility] GRCh37 (hg19)). An online research opportunity called [employer] ([employer]), a project of [employer], is available for the recipient of this genetic test. This patient registry collects de-identified genetic and health information to advance the knowledge of genetic variant s. [facility] is a collaborator of [employer]. This may not be applicable for all [...] d onors will interfere with testing. Call [facility] for instru ctions for testing patients [...] and its performa nce characteristics determined by [facility] in a manner consistent with CLIA requirements. [...] Address City/State/ZIP Code Phon e Number [facility] - [address] [place], [place] [address] [facility] [place] [address] [facility] [address] documented in this encounter Visit Diagnoses Diagnosis Acute On Chronic Systolic (Congestive) H eart Failure (HCC) documented in this encounter
[2022-05-06 02:00] VITALS: PULSE 70; RESP 16; O2SAT 99
--- OUTSIDE RECORDS SUMMARY | 2022-05-06 02:00 | XMS_ITS | Encounter Summary ---
:1940 Author Organization [facility] Address [address] [place] [address] Care Team Providers Name Role Phone Fabian Arias MD Primary Care Provider Encounter Details Date Type Department Care Team Description 02/14/2022 Orders Only [facility] Landon Zarate MD [address] [place] [address] [place], [place] [phone] (Wo rk) Social History Tobacco Use [...] 02/15/2022 Unless otherwise specified, test(s) performed at: [facility], [address] [place] [address] [facility] [place] [address] SPARK TESTER: Vicente Flores M.D., Ph.D For any questions, please call customer service at FREQUENCY:OTHER Resulting Agency Comment Specimen source: Blood Landon Calvert MD LAB BLOOD ORDERABLES Performing Organization Address City/State/ZIP Code Phon e Number [facility] documented in this encounter Visit Diagnoses Not on filedocumented in this encounter Care Teams Meat Molder Relationship Specialty Start Date End Date Fabian Arias MD PCP - General Family Medicine 09/04/[address] [place] [address] documented as of this encounter
--- OUTSIDE RECORDS SUMMARY | 2022-05-06 02:00 | XMS_ITS | Clinical Summary ---
:1940 Author Organization [facility] [place] [address] Care Team Providers Name Role Phone Louis [...] Effective Dates Phone Addre ss Type Group [facility] MR [id number] 2021-Kaylie [place] [address] [place] [address] (Home) FLORI MARCELINO [address] Care Teams Pipe Line Inspector Relationship Specialty Start Date End Date Louis Reyes MD PCP - General Family Practice 05/18/211999 [place] [phone]
--- OUTSIDE RECORDS SUMMARY | 2022-05-06 02:00 | XMS_ITS | Encounter Summary ---
:1940 Author Organization [facility] Address [address] [facility] [place] [address] Care Team Providers Name Role Phone Fabian Arias MD Primary Care Provider Encounter Details Date Type Department Care Team Description 04/11/2022 Orders Only [facility] Landon Zarate MD [address] [place] [address] [place], [place] [phone] (Wo rk) Social History Tobacco Use [...] 04/12/2022 Unless otherwise specified, test(s) performed at: [facility], [address] [place] [address], [place] [address] DISASTER RECOVERY MANAGER: Vicente Flores M.D., Ph.D For any questions, please call customer service at FREQUENCY:OTHER Resulting Agency Comment Specimen source: Blood Landon Calvert MD LAB BLOOD ORDERABLES Performing Organization Address City/State/ZIP Code Phon e Number [facility] documented in this encounter Visit Diagnoses Not on filedocumented in this encounter Care Teams Commercial Designer Relationship Specialty Start Date End Date Fabian Arias MD PCP - General Family Medicine 09/04/[address] [place] [address] documented as of this encounter
--- OUTSIDE RECORDS SUMMARY | 2022-05-06 02:00 | XMS_ITS | Encounter Summary ---
:1940 Author Organization [facility] Address [address] [place] [address] Care Team Providers Name Role Phone Unavailable [...]
--- OUTSIDE RECORDS SUMMARY | 2022-05-06 02:00 | XMS_ITS | Encounter Summary ---
:1940 Author Organization [facility] Address [address] [place] [address] Care Team Providers Name Role Phone Fabian Arias MD Primary Care Provider Encounter Details Date Type Department Care Team Description 02/07/2022 Treatment [facility] Landon Zarate MD [address] [place] [address] [place], [place] [phone] (Wo rk) Social History Tobacco Use Types Packs/Day Years Used Date Smoking Tobacco: Smoker, Current Cigarettes Started: 07/01/1976 Status Unknown Sex Assigned at Date Recorded Not on file documented as of this encounter Miscellaneous Notes Dialysis Note - Landon Calvert MD - 02/07/2022 10:01 AM CDT Date: Feb 07, 2022 Patient Name: Zamzam Garibay : 1940 Chart #: [id number] Sex: F This patient was personally seen [...] AM ) BP (sit): 122/55 AP(-) / AGENCY TRAINER: 229/134 Pulse: 81 Chairside data as of [...] 4000 units IVP Every Treatment 07/05/2021 07/04/2022 CATTLE CARE WORKER: Landon Calvert MD LOCATION: [place] [phone] SCHEDULE: M-W-F 2nd Shift EDW: kg. DIALYZER: [...] for access placement on Friday 02/02 at [facility] and had hyperkalemia and surgery cancelled and she dialyzed in the hospital instead. She had improved gain <1L today and will get close to EDW but not to dry weight. Her BP is a little better with this gain and on HD today looks excellent. She has no symptoms and feels well today. 01/24: She missed extra treatment on Sat at [facility]. Still above EDW. Trying to pull 2.6L today, traditionally has had issues with low BP with UF >2.3L but her BP is >200 systolic starting. Increased lisinopril last time, will increase again today. AVF/AVG surgery scheduled next week at [facility]. She feels well and has no dyspnea or orthopnea. 01/10/22: Her BP has been markedly elevated, persistently over dry weight and now 3+ Kg above dry weight post-Tx on Saturday. She does not lay flat due to SOB but this is chronic, denies dyspnea or other symptoms at this time. 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 12/06/21: She says she feels well. [...] her daughter and grandchild up in the [facility]. No symptoms of fluid overload, denies [...] She has access appt on 10/03 at [facility]. No concerns today. 09/06/21: She is 9 [...] This is Jaz's first day back from [facility]. She says she had no symptoms, but her son tested her when she was fatigued and had fever. She reports now having no symptoms at all. She says she feels great. Fluid gains have been better. Only complaint is acid reflux with once weekly vomiting up acid in her mouth and she says she used to be on acid dough mixer but [place] (despite it being on her med list [...] in the hospital overnight last month at [facility], SOB resolved with fluid removal. Can't remove [...] HD. 04/26/21: She was hospitalized briefly at [facility] for dyspnea, no pneumonia but rather related to CHF. She saw cardiology in follow-up in clinic, lisinopril and metoprolol and lasix with UF on HD to dry weight recommended. She is not interested in home dialysis, discussed today. 04/12/21: Patient new to me. She followed with assistant store manager in [facility], did [...] mouth once a day 04/12/2021 RenaPlex-D (vit b,l-ri-wemp-selen-vit d3-e) 800 mcg-12.5 mg-2,000 unit tablet Take [...] how it feels. Will send back to [facility] for re-evaluation and I will discuss with surgeon there 11/01/21: I will call [facility] for update on whether they have received report from her AVF surgery and plan moving forward for access revision/creation [facility] September 2021, need report [facility] appt 08/2021: LUE AVF lower arm placed [...] above goal. Intact PTH is above goal. Natural Sciences Professor will adjust binders and vitamin D per [...] Name: Zamzam Garibay : 1940 Chart #: [id number] Sex: F Patient has transitioned out of [...] mouth once a day 04/12/2021 RenaPlex-D (vit b,k-hv-azrd-selen-vit d3-e) 800 mcg-12.5 mg-2,000 unit tablet Take [...] is the status of those appts? Landon Calevrt MD [ Signed And locked electronically On 02/07/2022 at 10:00:25 AM ] Transcribed: Landon Calvert ( 02/07/2022 ) documented in this encounter Plan of Treatment Not on filedocumented as of this encounter Visit Diagnoses Not on filedocumented in this encounter Care Teams Residential Mortgage Underwriter Relationship Specialty Start Date End Date Fabian Arias MD PCP - General Family Medicine 09/04/[address] [place] [phone] documented as of this encounter
--- OUTSIDE RECORDS SUMMARY | 2022-05-06 02:00 | XMS_ITS | Encounter Summary ---
:1940 Author Organization [facility] Address [address] [place] [address] Care Team Providers Name Role Phone Unavailable Primary Care Provider Unavailable Reason for Visit Auth/Cert Specialty Diagnoses / Procedures Referred By Contact Refer red To Contact Diagnoses Dyspnea Pneumonia Procedures DIR Referral ID Status Reason Start Date Expiration Date Visits Requ ested Visits Authorized [id number] 1 1 Encounter Details Date Type Department Care Team Description 04/17/2021 - Hospital Encounter [facility] Federico Vasquez M.D. [address] [place] [phone] Dyspnea (Primary Dx) 04/20/2021 [facility] Gilbert Dorsey M.D. [address] [place] [phone] [facility] Jonah Kamara M.D. [address] [place] [phone] [facility], Third Floor [address] [place] [phone] Social History Tobacco Use Types Packs/Day [...] CDT DISCHARGE SUMMARY BRIEF OVERVIEW Discharge Hospital: [facility] Discharge Provider: Gilbert Dorsey M.D. Discharge Provider Team: [facility] Internal Medicine ([facility]) - [facility] Medicine ([facility]) No primary care provider on file. PCP [...] hospital directly from the emergency department in [place] after presenting there April 17, 2021 with dyspnea. History is provided by the patient, but also by the patient's son, Rafita ([phone]) via telephone. The patient had recently been living in [place]. Rafita reports that she has a several year history of chronic kidney disease. She has chronic hypertension, but no known diabetes. Rafita is not otherwise aware of why the patient developed chronic kidney disease. Regardless, she was initiated on hemodialysis during a recent hospital stay in [place] at the end of January via a right-sided tunneled hemodialysis catheter. She has a right-arm fistula in place that is currently maturing. She was discharged to a nursing facility on March 08, 2021 in [place] but did not like it there. She would intermittently refuse hemodialysis sessions for no specific reason. Her son, rafita, came to visit and took the patient up to [place] on April 02, 2021 where he lives in [place]. Rafita and his take the patient to [...] she presented to the emergency department in [place]. Initially, she was hypoxic to 85% on [...] T-wave inversions is noted. COVID swab in [place] was negative. She was accepted for direct admission at [facility]. Upon arrival to general care floor, [...] wall thickness, moderate mitral valve regurg and sjpc-gt-wvwganyw enlarged right ventricular size with moderately severe [...] evaluated Zamzam Garibay today and provided counseling edjw-tv-xtxr at bedside. I personally spent a total of greater than 30 minutes in counseling and coordination of care as described above to facilitate the hospital discharge. Discharge instructions were provided to the patient and caregiver(s). documented in this encounter Discharge Instructions Discharge InstructionsBeena De Leon - 04/18/2021 7:23 AM CDT You were discharged from the [facility] Medicine ([facility]) Service. Please identify this service name if youcall with questions after hospitalization. [facility] experts agree: You should get a COVID-19 vaccine as soon as it's available to you. ??? The vaccines that we???re recommending have been approved for safe use. ??? [facility] will continue to coordinate with state and local governments on future vaccine distribution phases. o If your primary care provider is at [facility] and you plan to receive your vaccination at [facility], please ensure that you have activated your Patient Portal at [employer] to allow [facility] to communicate to you about the scheduling [...] about receiving the vaccine. Discharge Instr - Alseha Mcintosh R.N. - 04/20/2021 12:18 PM CDT 2000 mL fluid restriction Weigh every 2-3 days, trend values AttachmentsThe following attachments cannot be sent through Care Everywhere. Lisinopril (By mouth) (Swedish)Metoprolol (By mouth) (Swedish)Multivitamins, Adult Formula (By mouth) (Swedish)documented in this encounter Medications at Time of [...] care was discussed with Dr. Juarez, Nephrology event management consultant For questions or concerns please page the Nephrology A ROLL GRINDER/PA pager ([phone]). Chantelle Mak APRN, C.N.P., D.N.P. - 04/19/2021 4:[address] [facility] Medicine 11 ([facility]) Progress Notes SUBJECTIVE was seen in the [...] / PLAN Ms. Garibay is hospitalized on [facility] Medicine 11 ([facility]) for evaluation and management of: Dyspnea Ms. 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 She is originally from [place], and recently moved to live with her son, Rafita in [place], [place]. She had recently started hemodialysis at [...] She was accepted for direct transfer to [facility] on 04/17/21. She underwent dialysis on 04/17/2021 [...] Rafita, due to difficulty living alone in [place]. Sheotherwise manages her own ADLs and IDLs. [...] Pain control and Tests/procedures/consults Counseling was provided pxyv-[id number] at bedside regarding the plan of care [...] on escitalopram 5mg/day. Jeny Goodman Pharm.D., R.Ph. [phone] ENT Dominique Griffith APRN C.N.P., M.S.N. - [...] or concerns please page the Nephrology A ROLL GRINDER/PA pager ([phone]). Gilbert Dorsey M.D. - 04/18/2021 7:05 PM [...] and previously quite active. Counseling was provided ckkt-fl-bprf at bedside regarding the plan of care [...] on escitalopram 5mg/day. Jeny Goodman Pharm.D., R.Ph. [phone] Dariana Pinto, RACHELN, LD - 04/18/2021 11:56 AM CDT Clinical Nutrition: Initial Assessment Clinical Nutrition was requested to evaluate patient for positive nursing baseline nutrition screen with a MST score of 2 or greater. SUBJECTIVE Ms. Garibay is a 80 y.o. female admitted for dyspnea. differential diagnosis of pulmonary edema v. dietary indisgression over the weekend at family event. Pt is from [place] but recently moved in with son (04/02/21) here in [place] after being initiated on IHD. Nutrition related [...] recent hospitalization, SNF admission, and move to [place] in the last few months) and small [...] of amount Estimated Needs: Total Calorie Needs: 5975-3427 (HB+20%+250 for weight gain) calories/day Method to Estimate Energy Needs: [place] (Basal to Basal + 20%) Weight Used [...] about patient's nutritional care please contact pager [phone] on weekdays or [phone] on weekends/holidays.. Cahntelle Mak APRN, C.N.P., D.N.P. - 04/18/2021 11:[address] [facility] Medicine 11 ([facility]) Progress Notes SUBJECTIVE was seen in the [...] / PLAN Ms. Garibay is hospitalized on [place] [address] ([facility]) for evaluation and management of: Dyspnea Ms. 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 She is originally from [place], and recently moved to live with her son, Rafita in [place], [place]. She had recently started hemodialysis at [...] She was accepted for direct transfer to [facility] on 04/17/21. She underwent dialysis on 04/17/2021 [...] Rafita, due to difficulty living alone in [place]. She otherwise manages her own ADLs and [...] Pain control and Tests/procedures/consults Counseling was provided qton-es-koet at bedside regarding the plan of care [...] renal disease related to hypertension, maintained on [facility] hemodialysis since 03/2021 #2 Admitted on 04/17/21 [...] or concerns, please page the Nephrology A ROLL GRINDER/PA pager ([phone]). Cadence Paul Pharm.D., R.Ph. - 04/17/2021 6:39 [...] given escitalopram use Cadence Paul Pharm.D., R.Ph. [phone] Cadence Paul Pharm.D., R.Ph. - 04/17/2021 4:28 PM CDT Images from the original note were not included. Admission Medication History Note Adherence issues: Unable to assess Medication list source: Outside facility MAR Medication related information: Patient asked that pharmacy call [facility] for medication list. Updated according to discussion with ER Nurse ([phone]) Prior to Admission Medications Med List Status: Pharmacy Complete Set By: Cadence Paul Pharm.D., R.Ph. at 04/17/2021 4:27 PM Status Comment 04/17/2021 4:28 PM Per medication list at [facility] (per OLIVE PICKER [phone]) Taking? Last Dose Informant Start Date End [...] (two) times a day. Cadence Paul, KaliaD, [facility] [phone] documented in this encounter H&P Notes Jonah Kamara M.D. - 04/17/2021 2:[address] [facility] Medicine ([facility]) Admission Note SUBJECTIVE CHIEF COMPLAINT Dyspnea. HISTORY OF PRESENT ILLNESS Ms. Zamzam Garibay is a 80 y.o. female with medical comorbidities notable for end-stage renal diseaseon thrice weekly in-center hemodialysis (MWF), CHF, hypertension, depression/anxiety, and nicotine dependency, who was admitted to hospital directly from the emergency department in [place] after presenting there April 17, 2021 with dyspnea. History is provided by the patient, but also by the patient's son, Rafita ([phone]) via telephone. The patient had recently been living in [place]. Rafita reports that she has a several year history of chronic kidney disease. She has chronic hypertension, but no known diabetes. Rafita is not otherwise aware of why the patient developed chronic kidney disease. Regardless, she was initiated on hemodialysis during a recent hospital stay in [place] at the end of January via a right-sided tunneled hemodialysis catheter. She has a right-arm fistula in place that is currently maturing. She was discharged to a nursing facility on March 08, 2021 in [place] but did not like it there. She would intermittently refuse hemodialysis sessions for no specific reason. Her son, rafita, came to visit and took the patient up to [place] on April 02, 2021 where he lives in [place]. Rafita and his take the patient to [...] she presented to the emergency department in [place]. Initially, she was hypoxic to 85% on [...] T-wave inversions is noted. COVID swab in [place] was negative. She was accepted for direct admission at [facility]. Social History: She now lives with her son, Rafita, in [place], [place]. She previously lived in [place]. Shehas 2 additional sons that live in [place]. She previously chewed tobacco and continues to [...] reviewed reported blood laboratory studies obtained in [place]. I reviewed her outside portable chest x-ray which shows cardiomegaly, right-sided tunneled hemodialysis catheter, pulmonary venous congestion, and right lower lobe opacities. Diagnostic testing performed on arrival in [place] is gradually becoming available. D-dimer is elevated [...] hospital directly from the emergency department in [place] after presenting there April 17, 2021 with dyspnea. The differential diagnosis for her acute dyspnea includes pulmonary edema from dietary indiscretion in the setting of end-stage renal disease, acute congestive heart failure, ACS, pulmonary embolism, COPD/asthma exacerbation. There was concern for bacterial pneumonia in [place], but I think this isless likely given lack of leukocytosis ([place] labs), ongoing cough, fevers, chills, or focal findings on lung auscultation. #1 Dyspnea #2 Acute On Chronic Systolic (Congestive) Heart Failure (HCC) #3 Hypertension And End Stage Renal Disease (HCC) #4 Anemia In Chronic Kidney Disease ?? [facility] interpretation of outside CXR. ?? CT [...] support and outpatient hemodialysis. Counseling was provided zdny-nf-uaey at bedside regarding the plan of care [...] enlargement and dysfunction in 80-year-old woman with vph-chvsi-jgpmo disease who has been off all prescription medicine for several month ?? HISTORY OF PRESENT ILLNESS I have performed a history and physical examination and agree with the documentation, including management plan by Oscar Henry, Medical Student, from 04/19/2021. Ms. Garibay is a pleasant 80 y.o.-year-old female who is referred by Chantelle Mak APRN, C.N.Elyssa, D.N.P., from [facility] Internal Medicine for the chief complained referenced above. 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 She normally dialyzes for 3.5 hours [...] or concerns, please page the Nephrology A ROLL GRINDER/PA pager ([phone]). documented in this encounter Nursing Notes Alesha Felix R.N. - 04/20/2021 12:10 PM CDT Patient discharged to [facility] with outpatient follow-up appointments for dialysis and primary care provider follow-up scheduled for Saturday, 04/24, in [place]. AVS and all patient education reviewed at [...] stable and asymptomatic while on floor. Justin Stone R.N. - 04/19/2021 11:31 AM CDT Patient scheduled for 3.5hr dialysis run. About 3hr into run, RN noticed low blood pressure 72/35 and pt became nauseated. Minimum fluid pulling initiated and 200cc NS bolus given with little improved in blood pressures 80/47, 78/42, 88/65. Dialysis stopped 30 minutes early blood returned, BP 128/79. Neph ROLL GRINDER was notified. Patient returned to room. VSS. [...] hospital directly from the emergency department in [place] after presenting there April 17, 2021 with dyspnea. History is provided by the patient, but also by the patient's son, Rafita ([phone]) via telephone. The patient had recently been living in [place]. Rafita reports that she has a several year history of chronic kidney disease. She has chronic hypertension, but no known diabetes. Rafita is not otherwise aware of why the patient developed chronic kidney disease. Regardless, she was initiated on hemodialysis during a recent hospital stay in [place] at the end of January via a right-sided tunneled hemodialysis catheter. She has a right-arm fistula in place that is currently maturing. She was discharged to a nursing facility on March 08, 2021 in [place] but did not like it there. She would intermittently refuse hemodialysis sessions for no specific reason. Her son, rafita, came to visit and took the patient up to [place] on April 02, 2021 where he lives in [place]. Rafita and his take the patient to [...] she presented to the emergency department in [place]. Initially, she was hypoxic to 85% on [...] T-wave inversions is noted. COVID swab in [place] was negative. She was accepted for direct admission at [facility]. Upon arrival to general care floor, [...] wall thickness, moderate mitral valve regurg and lcbm-eu-jrdfmcbd enlarged right ventricular size with moderately severe [...] D.N.P. LAB BLOOD ADD-ON Performing Organization Address City/[facility] Phon e Number [facility] [address] (ABNORMAL) Phosphorus Inorganic (04/19/2021 7:37 AM CDT) athologist Signature Phosphorus 5.8 (H) 2.5 - 4.5 04/19/2021 DTL (Inorganic), S mg/dL 9:08 AM CDT Specimen Anatomical Collection Method Collection Time Receive d Time (Source) Location / / Volume Laterality Blood (Blood, 04/19/2021 7:37 AM 04/19/20 8:36 Venous) CDT AM CDT Chantelle Mak APRN, C.N.P., D.N.P. LAB BLOOD ADD-ON Performing Organization Address City/[facility] Phon e Number [facility] [address] Magnesium (04/19/2021 7:37 AM CDT) athologist [...] City/State/ZIP Code Phon e Number [facility] - 200 [place], [place] [address] [facility] [place] [address] Laboratories-[facility] [address] [facility] (ABNORMAL) Basic Metabolic Panel (04/19/2021 7:37 [...] 04/19/2021 DTL Black/ mL/min/BSA 9:08 AM CDT Bahamian Comment: ----ADDITIONAL INFORMATION---- Estimated GFR calculated using [...] City/State/ZIP Code Phon e Number [facility] - 200 [place], [place] [address] [facility] [place] [address] [facility] [address] [facility] (ABNORMAL) CBC with Differential, Blood (04/19/2021 7:37 AM CDT) [facility] Method Time Signature Hemoglobin 9.3 (L) [...] City/State/ZIP Code Phon e Number [facility] - [address] [place] [address] [facility] [place] [address] [facility] 200 [facility] (TTE) 2D ECHO DOPPLER COLOR (04/18/2021 12:26 PM CDT) [facility] Method Time Signature Ejection Fraction 25 [...] . For the complete report, see the MtoV Documents. Narrative 04/18/2021 1:34 PM CDT For the complete report, see the MtoV Documents. Final Impressions 1. Severely enlarged left [...] 04/18/2021 For the complete report, see the MtoV Documents. Final Impressions 1. Severely enlarged left [...] City/State/ZIP Code Phon e Number [facility] - [address] [place], [place] [address] [facility] [place] [address] [facility] [address] (ABNORMAL) NT-Pro B-Type Natriuretic Peptide (BNP) (04/17/2021 5:13 PM CDT) athologist Signature NT-Pro BNP >85159 (H) <=239 04/17/2021 DTL pg/mL 6:24 PM [...] City/State/ZIP Code Phon e Number [facility] - [address] [place], [place] [address] [facility] [place] [address] [facility] [address] (ABNORMAL) Troponin T, [...] 04/17/20 5:20 Venous) CDT PM CDT Narrative [facility] - [facility] - 04/17/2021 5:45 PM CDT Specimen Information: Specimen ID: [id number] Specimen Type: Blood Specimen Collection Start Date: 021 ??5:13 PM Specimen Received Date: 04/17/2021 ??5: 20 PM Specimen ID: [id number] Specimen Type: Blood Specimen Collection Start Date: 021 ??5:45 PM Specimen Received Date: 04/17/2021 ??5: 45 PM Jonah Kamara M.D. LAB BLOOD TROPONIN Performing Organization Address City/State/[facility] Code Phon e Number [facility] - [address] [place], [place] [address] [place] [address] [facility] [address] Interpretation of Outside DX [...] 04/17/20 3:26 Venous) CDT PM CDT Narrative [facility] - 04/17/2021 4:05 PM CDT Specimen Information: Specimen ID: [id number] Specimen Type: Blood Specimen Collection Start Date: ??2:48 PM Specimen Received Date: 04/17/2021 ??3: 26 PM Specimen ID: [id number] Specimen Type: Blood Specimen Collection Start Date: 021 ??2:48 PM Specimen Received Date: 04/17/2021 ??3: 26 PM Will Manju Kamara M.D. LAB BLOOD ADD-ON Performing Organization Address City/State/ZIP Code Phon e Number [facility] - 200 [place], [place] [address] [facility] [place] [address] [facility] 200 [facility] (ABNORMAL) Renal Function Panel (04/17/2021 [...] 04/17/2021 DTL Black/ mL/min/BSA 4:05 PM CDT Bahamian Comment: ----ADDITIONAL INFORMATION---- Estimated GFR calculated using [...] M.D. LAB BLOOD ADD-ON Performing Organization Address City/[facility] Phon e Number [facility] - [address] [place] [address] [facility] [place] [address] (ABNORMAL) D-Dimer (04/17/2021 2:48 PM CDT) [...] M.D. LAB BLOOD ADD-ON Performing Organization Address City/[facility] Phon e Number [facility] - [address] [place], [place] [address] [place] [address] [place] [address] (ABNORMAL) Troponin T, Baseline, 5th gen [...] M.D. LAB BLOOD TROPONIN Performing Organization Address City/[facility]/ZIP Code Phon e Number [facility] - [address] [place], [place] [address] [facility] [place] [address] (ABNORMAL) Procalcitonin (04/17/2021 2:48 PM CDT) athologist Signature Procalcitonin, 0.32 (H) <=0.08 04/17/2021 DTL S ng/mL 4:05 PM CDT Specimen Anatomical Collection Method Collection Time Receive d Time (Source) Location / / Volume Laterality Blood (Blood, 04/17/2021 2:48 PM 04/17/20 3:26 Venous) CDT PM CDT Will Manju Kamara M.D. LAB BLOOD ADD-ON Performing Organization Address City/[facility] Code Phon e Number [facility] - [address] [place], [place] [address] [facility] [place] [address] Laboratories-[address] (ABNORMAL) Hemoglobin A1c (04/17/2021 2:48 PM [...] M.D. LAB BLOOD ADD-ON Performing Organization Address City/[facility]/ZIP Code Phon e Number [facility] - [address] [address] [facility] 200 [facility] Thyroid Function [place] (04/17/2021 2:47 PM CDT) athologist Signature TSH, Sensitive 1.6 0.3 - 4.2 04/19/2021 DTL mIU/L 8:38 AM CDT Specimen Anatomical Collection Method Collection Time Receive d Time (Source) Location / / Volume Laterality Blood (Blood, 04/17/2021 2:47 PM 04/19/20 7:45 Venous) CDT AM CDT Chantelle Mak APRN, C.N.P., D.N.P. LAB BLOOD ADD-ON Performing Organization Address City/State/ZIP Code Phon e Number [facility] - [id number] [place] [address] ECG 12 Lead (04/17/2021 2:36 PM CDT) athologist Signature Ventricular Rate 109 BPM MUSE ECG/Min VT Interval 148 ms MUSE QRSD Interval 126 ms MUSE QT Interval 378 ms MUSE QTC Interval 509 ms MUSE P [place] 74 degrees MUSE R [place] -34 degrees MUSE T Wave [place] 75 degrees MUSE Specimen Anatomical Collection Method [...]
--- OUTSIDE RECORDS SUMMARY | 2022-05-06 02:00 | XMS_ITS | Encounter Summary ---
:1940 Author Organization [facility] Address [address] [place] [address] Care Team Providers Name Role Phone Fabian Arias MD Primary Care Provider Encounter Details Date Type Department Care Team Description 01/24/2022 Treatment [facility] Landon Zarate MD [address] [place] [address] [place], [place] [phone] (Wo rk) Social History Tobacco Use Types Packs/Day Years Used Date Smoking Tobacco: Smoker, Current Cigarettes Started: 07/01/1976 Status Unknown Sex Assigned at Date Recorded Not on file documented as of this encounter Miscellaneous Notes Dialysis Note - Landon Calvert MD - 01/24/2022 11:53 AM CDT Date: Jan 24, 2022 Patient Name: Zamzam Garibay : 1940 Chart #: [id number] Sex: F This patient was personally seen [...] AM ) BP (sit): 200/99 AP(-) / ELECTRONIC PUBLISHING SPECIALIST: n/a Pulse: 83 Chairside data as of [...] 2000 units IVP Every Treatment 07/05/2021 07/04/2022 TERRITORY SALES MANAGER: Landon Calvert MD LOCATION: [phone] SCHEDULE: - 2nd Shift ACCESS: EDW: kg. DIALYZER: HD DURATION: NEEDLE SIZE: ANTICOAG: BATH: QB: ml/min QD: ml/min Subjective Tolerating dialysis well. 01/24: She missed extra treatment on Sat at [facility]. Still above EDW. Trying to pull 2.6L today, traditionally has had issues with low BP with UF >2.3L but her BP is >200 systolic starting. Increased lisinopril last time, will increase again today. AVF/AVG surgery scheduled next week at [facility]. She feels well and has no dyspnea or orthopnea. 01/10/22: Her BP has been markedly elevated, persistently over dry weight and now 3+ Kg above dry weight post-Tx on Saturday. She does not lay flat due to SOB but this is chronic, denies dyspnea or other symptoms at this time. 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 yesterday but she will need surgery at [facility] so this is scheduled in a [...] She denies any SOB or orthopnea at [facility]. 12/06/21: She says she feels [...] her daughter and grandchild up in the [facility]. No symptoms of fluid overload, denies [...] She has access appt on 10/03 at [facility]. No concerns today. 09/06/21: She is 9 [...] This is Jaz's first day back from [facility]. She says she had no symptoms, but her son tested her when she was fatigued and had fever. She reports now having no symptoms at all. She says she feels great. Fluid gains have been better. 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 Can't remove [...] HD. 04/26/21: She was hospitalized briefly at [place] for dyspnea, no pneumonia but rather related to CHF. She saw cardiology in follow-up in clinic, lisinopril and metoprolol and lasix with UF on HD to dry weight recommended. She is not interested in home dialysis, discussed today. 04/12/21: Patient new to me. She followed with airport ramp attendant in [facility], did not follow-up,crashed into dialysis in [...] mouth once a day 04/12/2021 RenaPlex-D (vit b,m-ai-icmi-selen-vit d3-e) 800 mcg-12.5 mg-2,000 unit tablet Take [...] how it feels. Will send back to [facility] for re-evaluation and I will discuss with surgeon there 11/01/21: I will call [facility] for update on whether they have received report from her AVF surgery and plan moving forward for access revision/creation [facility] September 2021, need report 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 Will need new access placement. She is being set up for vein mapping and surgeon consult Impression and Plan Stable dialysis BP too high Increase lisinopril Schedule extra treatment for UF AVF surgery next week at [facility] Landon Calvert MD [ Signed And locked electronically On 01/24/2022 at 11:54:51 AM ] Transcribed: Landon Calvert ( 01/24/2022 ) documented in this encounter Plan of Treatment Not on filedocumented as of this encounter Visit Diagnoses Not on filedocumented in this encounter Care Teams Md Urologist Relationship Specialty Start Date End Date Fabian Arias MD PCP - General Family Medicine 09/04/[address] [place] [address] documented as of this encounter
--- OUTSIDE RECORDS SUMMARY | 2022-05-06 02:00 | XMS_ITS | Encounter Summary ---
:1940 Author Organization [facility] Address [address] [place] [address] Care Team Providers Name Role Phone Unavailable Primary Care Provider Unavailable Encounter Details Date Type Department Care Team Description 04/17/2021 Ancillary Procedure Department of Radiology Jonah Kamara in [facility] jojo Joya [address] [facility] [address] [place] [address] [place] [phone] Social History Tobacco Use Types Packs/Day Years [...] sitting portable AP view) dated 04/17/2021 from [facility]. Enlarged cardiac silhouette with prominence of [...] sitting portable AP view) dated 04/17/2021 from [facility]. Enlarged cardiac silhouette with prominence of [...]
--- OUTSIDE RECORDS SUMMARY | 2022-05-06 02:00 | XMS_ITS | Encounter Summary ---
:1940 Author Organization [facility] Address [address] [place] [address] Care Team Providers Name Role Phone Fabian Arias MD Primary Care Provider Encounter Details Date Type Department Care Team Description 03/21/2022 Treatment [facility] f Landon Zarate MD [address] [place] [address] [place], [place] [phone] (Wo rk) Social History Tobacco Use Types Packs/Day Years Used Date Smoking Tobacco: Smoker, Current Cigarettes Started: 07/01/1976 Status Unknown Sex Assigned at Date Recorded Not on file documented as of this encounter Miscellaneous Notes Dialysis Note - Landon Calvert MD - 03/21/2022 10:40 AM CDT Date: Mar 21, 2022 Patient Name: Zamzam Garibay : 1940 Chart #: [id number] Sex: F This patient was personally seen [...] AM ) BP (sit): 93/56 AP(-) / CERAMIC SPRAYER: 235/186 Pulse: 84 Chairside data as of [...] mcg IVP Every 2 weeks 02/28/2022 02/27/2023 COUPLER: Landon Calvert MD LOCATION: [phone] SCHEDULE: - 2nd Shift ACCESS: EDW: kg. [...] prior to Saturday placement with HD at [place] that . 02/21: She says she feels [...] for access placement on Friday 02/02 at [facility] and had hyperkalemia and surgery cancelled and she dialyzed in the hospital instead. She had improved gain <1L today and will get close to EDW but not to dry weight. Her BP is a little better with this gain and on HD today looks excellent. She has no symptoms and feels well today. 01/24: She missed extra treatment on Sat at [facility]. Still above EDW. Trying to pull 2.6L today, traditionally has had issues with low BP with UF >2.3L but her BP is >200 systolic starting. Increased lisinopril last time, will increase again today. AVF/AVG surgery scheduled next week at [facility]. She feels well and has no dyspnea or orthopnea. 01/10/22: Her BP has been markedly elevated, persistently over dry weight and now 3+ Kg above dry weight post-Tx on Saturday. She does not lay flat due to SOB but this is chronic, denies dyspnea or other symptoms at this time. 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 12/06/21: She says she feels well. [...] her daughter and grandchild up in the [facility]. No symptoms of fluid overload, denies dyspnea [...] She has access appt on 10/03 at [facility]. No concerns today. 09/06/21: She [...] This is Jaz's first day back from [facility] unit. She says she had no symptoms, but her son tested her when she was fatigued and had fever. She reports now having no symptoms at all. She says she feels great. Fluid gains have been better. 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 Can't [...] HD. 04/26/21: She was hospitalized briefly at [place] for dyspnea, no pneumonia but rather related to CHF. She saw cardiology in follow-up in clinic, lisinopril and metoprolol and lasix with UF on HD to dry weight recommended. She is not interested in home dialysis, discussed today. 04/12/21: Patient new to me. She followed with database programmer analyst in [facility], did not follow-up,crashed into [...] mouth once a day 04/12/2021 RenaPlex-D (vit b,u-aw-vrod-selen-vit d3-e) 800 mcg-12.5 mg-2,000 unit tablet Take [...] how it feels. 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 Will need new access placement. She is being set up for vein mapping and surgeon consult Impression and Plan Stable dialysis Increase EDW to 54 Kg Access placement next week Fri at [facility] Landon Calvert MD [ Signed And locked electronically On 03/21/2022 at 10:42:13 AM ] Transcribed: Landon Calvert ( 03/21/2022 ) documented in this encounter Plan of Treatment Not on filedocumented as of this encounter Visit Diagnoses Not on filedocumented in this encounter Care Teams House Director Relationship Specialty Start Date End Date Fabian Arias MD PCP - General Family Medicine 09/04/[address] [place] [address] documented as of this encounter
--- OUTSIDE RECORDS SUMMARY | 2022-05-06 02:00 | XMS_ITS | Encounter Summary ---
:1940 Author Organization [facility] Address [address] [place] [address] Care Team Providers Name Role Phone Fabian Arias MD Primary Care Provider Encounter Details Date Type Department Care Team Description 04/18/2022 Orders Only [facility] f Landon Zarate MD [address] [place] [address] [place], [place] [phone] (Wo rk) Social History Tobacco Use [...] 04/19/2022 Unless otherwise specified, test(s) performed at: [facility], [address] [place] [address], [place] [address] BANDER: Vicente Flores M.D., Ph.D For any questions, please call customer service at FREQUENCY:OTHER Resulting Agency Comment Specimen source: Blood Landon Calvert MD LAB BLOOD ORDERABLES Performing Organization Address City/State/ZIP Code Phon e Number [facility] documented in this encounter Visit Diagnoses Not on filedocumented in this encounter Care Teams Ems Coordinator Relationship Specialty Start Date End Date Fabian Arias MD PCP - General Family Medicine 09/04/[address] [place] [address] documented as of this encounter
--- OUTSIDE RECORDS SUMMARY | 2022-05-06 02:00 | XMS_ITS | Encounter Summary ---
:1940 Author Organization [facility] Address [address] [place] [address] Care Team Providers Name Role Phone Fabian Arias MD Primary Care Provider Encounter Details Date Type Department Care Team Description 02/28/2022 Orders Only [facility] f Landon Zarate MD [phone] [place] [address] [place], [place] [phone] (Wo rk) Social History Tobacco Use [...] 03/01/2022 Unless otherwise specified, test(s) performed at: [facility], [address] [place] [address] [place] [address] LEAD INSPECTOR: Vicente Flores M.D., Ph.D For any questions, please call customer service at FREQUENCY:OTHER Resulting Agency Comment Specimen source: Blood Landon Calvert MD LAB BLOOD ORDERABLES Performing Organization Address City/State/ZIP Code Phon e Number [facility] documented in this encounter Visit Diagnoses Not on filedocumented in this encounter Care Teams Public Works Technician Relationship Specialty Start Date End Date Fabian Arias MD PCP - General Family Medicine 09/04/[address] [place] [address] documented as of this encounter
--- OUTSIDE RECORDS SUMMARY | 2022-05-06 02:00 | XMS_ITS | Encounter Summary ---
:1940 Author Organization [facility] Address [address] [place] [address] Care Team Providers Name Role Phone Fabian Arias MD Primary Care Provider Encounter Details Date Type Department Care Team Description 01/31/2022 Orders Only [facility] f Landon Zarate MD [address] [place] [address] [place], [place] [phone] (Wo rk) Social History Tobacco Use [...] Provider LAB BLOOD ORDERABLES Performing Organization Address City/[facility]/ZIP Code Phon e Number CELIA IMMUNO [...] 02/01/2022 Unless otherwise specified, test(s) performed at: [facility], [address] [place] [address], [place] [address] TOOL CHASER: Vicente Flores M.D., Ph.D For any questions, please call customer service at FREQUENCY:MONTHLY Resulting Agency Comment Specimen source: Plasma Landon Calvert MD LAB BLOOD ORDERABLES Performing Organization Address City/[facility] Code Phon e Number APS [...] 02/01/2022 Unless otherwise specified, test(s) performed at: [facility], [address] [place] [address], [place] [address] TOOL CHASER: Vicente Flores M.D., Ph.D For any questions, [...] 02/01/2022 Unless otherwise specified, test(s) performed at: [facility], [address] [place] [address], [place] [address] TOOL CHASER: Vicente Flores M.D., Ph.D For any questions, [...] 02/01/2022 Unless otherwise specified, test(s) performed at: [facility], [address] [place] [address] [place] [address] TOOL CHASER: Vicente Flores M.D., Ph.D For any questions, please call customer service at FREQUENCY:MONTHLY Resulting Agency Comment Specimen source: Blood Landon Calvert MD LAB BLOOD ORDERABLES Performing Organization Address City/State/ZIP Code Phon e Number [facility] documented in this encounter Visit Diagnoses Not on filedocumented in this encounter Care Teams Conveyor Mechanic Relationship Specialty Start Date End Date Fabian Arias MD PCP - General Family Medicine 09/04/[address] [place] [address] documented as of this encounter
--- OUTSIDE RECORDS SUMMARY | 2022-05-06 02:00 | XMS_ITS | Encounter Summary ---
:1940 Author Organization [facility] Address [address] [place] [address] Care Team Providers Name Role Phone Fbaian Arias MD Primary Care Provider Encounter Details Date Type Department Care Team Description 04/11/2022 Treatment [facility] f Landon Zarate MD [address] [place] [address] [place], [place] [phone] (Wo rk) Social History Tobacco Use Types Packs/Day Years Used Date Smoking Tobacco: Smoker, Current Cigarettes Started: 07/01/1976 Status Unknown Sex Assigned at Date Recorded Not on file documented as of this encounter Miscellaneous Notes Dialysis Note - Landon Calvert MD - 04/11/2022 10:28 AM CDT Date: Apr 11, 2022 Patient Name: Zamzam Garibay : 1940 Chart #: [id number] Sex: F This patient was personally seen for a complete visit as part of routine monthly dialysis care. A review of the dialysis treatment, blood pressure, estimated dry weight and recent lab values was made. These were discussed with the patient and staff as necessary. WAREHOUSE INSULATION WORKER: Landon Calvert MD LOCATION: [place] [phone] SCHEDULE: -- 2nd Shift EDW: kg. DIALYZER: [...] prior to Saturday placement with HD at [place] that . 02/21: She says she feels [...] for access placement on Friday 02/02 at [facility] and had hyperkalemia and surgery cancelled and she dialyzed in the hospital instead. She had improved gain <1L today and will get close to EDW but not to dry weight. Her BP is a little better with this gain and on HD today looks excellent. She has no symptoms and feels well today. 01/24: She missed extra treatment on Sat at [facility]. Still above EDW. Trying to pull 2.6L today, traditionally has had issues with low BP with UF >2.3L but her BP is >200 systolic starting. Increased lisinopril last time, will increase again today. AVF/AVG surgery scheduled next week at [facility]. She feels well and has no dyspnea or orthopnea. 01/10/22: Her BP has been markedly elevated, persistently over dry weight and now 3+ Kg above dry weight post-Tx on Saturday. She does not lay flat due to SOB but this is chronic, denies dyspnea or other symptoms at this time. 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 12/06/21: She says she feels well. [...] her daughter and grandchild up in the [facility]. No symptoms of fluid overload, denies [...] has access appt on 10/03 at [facility]. No concerns today. 09/06/21: [...] Jaz's first day back from [facility] isolation unit. She says she had no symptoms, but her son tested her when she was fatigued and had fever. She reports now having no symptoms at all. She says she feels great. Fluid gains have been better. 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 Can't remove [...] HD. 04/26/21: She was hospitalized briefly at [place] for dyspnea, no pneumonia but rather related to CHF. She saw cardiology in follow-up in clinic, lisinopril and metoprolol and lasix with UF on HD to dry weight recommended. She is not interested in home dialysis, discussed today. 04/12/21: Patient new to me. She followed with textile coating machine operator in [facility], did not follow-up,crashed into dialysis in [...] mouth once a day 04/12/2021 RenaPlex-D (vit b,g-ym-zfbz-selen-vit d3-e) 800 mcg-12.5 mg-2,000 unit tablet Take [...] how it feels. Will send back to [facility] for re-evaluation and I will discuss with surgeon there 11/01/21: I will call [facility] for update on whether they have received report from her AVF surgery and plan moving forward for access revision/creation [facility] September 2021, need report [facility] appt 08/2021: LUE AVF [...] above goal. Intact PTH is at goal. Hide Dyer will adjust binders and vitamin D per [...] on filedocumented in this encounter Care Teams Frame Maker Relationship Specialty Start Date End Date Fabian Arias MD PCP - General Family Medicine 09/04/[address] [place] [address] documented as of this encounter
--- OUTSIDE RECORDS SUMMARY | 2022-05-06 02:00 | XMS_ITS | Encounter Summary ---
:1940 Author Organization [facility] Address [address] [place] [address] Care Team Providers Name Role Phone Fabian Arias MD Primary Care Provider Encounter Details Date Type Department Care Team Description 03/21/2022 Orders Only [facility] O f Landon Zarate MD [address] [place] [address] [place], [place] [phone] (Wo rk) Social History Tobacco Use [...] 03/22/2022 Unless otherwise specified, test(s) performed at: [facility], [address] [place] [address], [place] [address] TRANSMITTER CHIEF: Vicente Flores M.D., Ph.D For any questions, please call customer service at FREQUENCY:OTHER Resulting Agency Comment Specimen source: Blood Landon Calvert MD LAB BLOOD ORDERABLES Performing Organization Address City/State/ZIP Code Phon e Number [facility]PS [facility] documented in this encounter Visit Diagnoses Not on filedocumented in this encounter Care Teams Analyst Market Intelligence Relationship Specialty Start Date End Date Fabian Arias MD PCP - General Family Medicine 09/04/[address] [place] [address] documented as of this encounter
--- OUTSIDE RECORDS SUMMARY | 2022-05-06 02:00 | XMS_ITS | Encounter Summary ---
:1940 Author Organization [facility] Address [address] [place] [address] Care Team Providers Name Role Phone Fabian Arias MD Primary Care Provider Encounter Details Date Type Department Care Team Description 05/02/2022 Orders Only [facility] O f Landon Zarate MD [address] [place] [address] [place], [place] [phone] (Wo rk) Social History Tobacco Use Types Packs/Day Years Used Date Smoking Tobacco: Smoker, Current Cigarettes Started: 07/01/1976 Status Unknown Sex Assigned at Date Recorded Not on file documented as of this encounter Plan of Treatment Not on filedocumented as of this encounter Procedures Procedure Name Priority Date/Time Associated Diagnosis Comme nts IMMUNO CHEMISTRY Routine 05/02/2022 Results for this procedure are in the resu lts section. HEMATOLOGY Routine 05/02/2022 Results for thi s procedure are in the resu lts section. CHEMISTRY Routine 05/02/2022 Results for thi s procedure are in the resu lts section. documented in this encounter Results (ABNORMAL) HEMATOLOGY (05/02/2022) P athologist Signature WBC 7.00 4.80 - [facility]PS [facility]RA 10.80 [facility] 1000/mcL RBC 3.29 (L) 4.20 - 5.40 APS SPECTRA mill/mcL [facility] Hemoglobin 9.1 (L) 12.0 - 16.0 APS [facility]RA g/dL [facility] Comment: Verified by repeat analysis. Hemoglobin x 3 27.3 (L) 36.0 - 48.0 % [facility] Hematocrit 27.6 (L) 37.0 - 47.0 % [facility] MCV 84 80 - 100 fl [facility]PS [facility] MCH 27.7 27.0 - 31.0 pg [facility] [place] MCHC 33.1 30.0 - 36.0 g/dL [facility]PS [facility] RDW 16.8 (H) 11.5 - 14.5 % [facility]PS SPECTRA [facility] N Platelets 279 130 - 400 1000/mcL [facility]PS S[facility] Specimen (Source) Anatomical Collection Method Collection Time Re ceived Time Location / / Volume Laterality 05/02/2022 05/03/2022 2:38 AM CDT Narrative APS SPECTRA [facility] - 05/03/2022 Unless otherwise specified, test(s) performed at: [facility], [address] [place] [address], [place] [address] SENIOR APPLICATION SOFTWARE ENGINEER: Vicente Flores M.D., Ph.D For any questions, please call customer service at FREQUENCY:MONTHLY Resulting Agency Comment Specimen source: Blood Landon Calvert MD LAB BLOOD ORDERABLES Performing Organization Address City/[facility] Phon e Number APS SPECTRA [facility] IMMUNO CHEMISTRY (05/02/2022) P athologist Signature Hep B Surface Negative Negative APS SPECTRA Ag [facility] Specimen (Source) Anatomical Collection Method Collection Time Re ceived Time Location / / Volume Laterality 05/02/2022 05/03/2022 2:56 AM CDT Narrative APS SPECTRA [facility] - 05/03/2022 Unless otherwise specified, test(s) performed at: [facility], [address] [place] [address], [place] [address] SENIOR APPLICATION SOFTWARE ENGINEER: Vicente Flores M.D., Ph.D For any questions, please call customer service at FREQUENCY:MONTHLY Resulting Agency Comment Specimen source: Plasma Landonmarah Calvert MD LAB BLOOD ORDERABLES Performing Organization Address City/[facility] Phon e Number APS SPECTRA [facility] (ABNORMAL) Spectrae Chemistry (05/02/2022) Patholo gist Method Time Signature BUN 55 (H) 6 - 19 [facility] mg/dL [facility] Creatinine 8.35 (H) 0.60 - APS [facility] 1.30 mg/dL [facility] BUN/Creatinine 6.6 (L) 10.0 - [facility] Ratio 20.0 [facility] Sodium 138 136 - 145 [facility] mEq/L [facility] Potassium 5.1 3.5 - 5.1 [facility]RA mEq/L [facility] Chloride 99 96 - 108 [facility] mEq/L [facility] Bicarbonate 27 20 - 31 APS S[facility]RA (CO2) mEq/L [facility] Comment: Please note change in reference range. Calcium 9.4 8.7 - 10.4 mg/dL [facility]PS [facility] Comment: Please note change in reference range. Corrected Calcium 9.2 8.7 - 10.4 mg/dL APS S PECTRA [facility] Comment: Corrected Calcium is not equivalent to m easured Ionized Calcium. Phosphorus 7.3 (H) 2.6 - 4.5 mg/dL APS SPECTRA [facility] Calcium Phosphorus Product 69 (H) 0 - 54 APS SPECTRA [facility] Calcium Phosporus Product, Cor 67 (H) 0 - 54 APS SPECTRA [facility] Total Protein 6.4 6.0 - 8.5 g/dL APS SPECTRA [facility] Albumin 4.2 3.5 - 5.2 g/dL [facility] [place] Globulin, Total 2.2 2.0 - 4.0 g/dL APS SPECT RA [facility] A/G Ratio 1.9 1.0 - 2.0 APS SPECTRA [facility] Iron 60 30 - 160 mcg/dL APS S[facility] UIBC 239 155 - 355 mcg/dL APS SPECTRA [facility] TIBC 299 185 - 515 mcg/dL APS SPECTRA [facility] Iron Saturation (TSat) 20 20 - 55 % APS SPE CTRA [facility] Specimen (Source) Anatomical Collection Method Collection Time Re ceived Time Location / / Volume Laterality 05/02/2022 05/03/2022 2:46 AM CDT Narrative APS SPECTRA [facility] - 05/03/2022 Unless otherwise specified, test(s) performed at: [facility], [address] [place] [address], [place] [address] SENIOR APPLICATION SOFTWARE ENGINEER: Vicente Flores M.D., Ph.D For any questions, please call customer service at FREQUENCY:MONTHLY Resulting Agency Comment Specimen source: Serum Landon Calvert MD LAB BLOOD ORDERABLES Performing Organization Address City/State/ZIP Code Phon e Number APS SPECTRA [facility] documented in this encounter Visit Diagnoses Not on filedocumented in this encounter Care Teams Manager Imaging Relationship Specialty Start Date End Date Fabian Arias MD PCP - General Family Medicine 09/04/[address] [place] [address] documented as of this encounter
--- OUTSIDE RECORDS SUMMARY | 2022-05-06 02:00 | XMS_ITS | Encounter Summary ---
:1940 Author Organization [facility] Address [address] [place] [address] Care Team Providers Name Role Phone Fabian Arias MD Primary Care Provider Encounter Details Date Type Department Care Team Description 03/28/2022 [facility] O f Landon Zarate MD [address] [place] [address] [place], [place] [phone] (Wo rk) Social History Tobacco Use Types Packs/Day Years Used Date Smoking Tobacco: Smoker, Current Cigarettes Started: 07/01/1976 Status Unknown Sex Assigned at Date Recorded Not on file documented as of this encounter Plan of Treatment Not on filedocumented as of this encounter Procedures Procedure Name Priority Date/Time Associated Diagnosis Comme nts HEMATOLOGY Routine 03/28/2022 Results for thi s procedure are in the resu lts section. documented in this encounter Results HEMATOLOGY (03/28/2022) P athologist Signature Hemoglobin 13.4 12.0 - APS [facility]RA 16.0 g/dL [facility] Hemoglobin x 3 40.2 36.0 - APS SPECTRA 48.0 % [facility] Specimen (Source) Anatomical Collection Method Collection Time Re ceived Time Location / / Volume Laterality 03/28/2022 03/29/2022 7:32 AM CDT Narrative APS SPECTRA [facility] - 03/29/2022 Unless otherwise specified, test(s) performed at: [facility], [address] [place] [address], [place] [address] GIFTED TEACHER: Vicente Flores M.D., Ph.D For any questions, please call customer service at FREQUENCY:OTHER Resulting Agency Comment Specimen source: Blood Landon Calvert MD LAB BLOOD ORDERABLES Performing Organization Address City/State/ZIP Code Phon e Number APS SPECTRA [facility] documented in this encounter Visit Diagnoses Not on filedocumented in this encounter Care Teams Vending Route Driver Relationship Specialty Start Date End Date Fabian Arias MD PCP - General Family Medicine 09/04/[address] [place] [address] documented as of this encounter
--- OUTSIDE RECORDS SUMMARY | 2022-05-06 02:00 | XMS_ITS | Encounter Summary ---
:1940 Author Organization [facility] Address [address] [place] [address] Care Team Providers Name Role Phone Fabian Arias MD Primary Care Provider Encounter Details Date Type Department Care Team Description 02/21/2022 [facility] Only [facility] O f Landon Zarate MD [address] [place] [address] [place], [place] [phone] (Wo rk) Social History Tobacco Use [...] 02/22/2022 Unless otherwise specified, test(s) performed at: [facility], [address] [place] [address], [place] [address] COTTON EXPERT: Vicente Flores M.D., Ph.D For any questions, please call customer service at FREQUENCY:OTHER Resulting Agency Comment Specimen source: Blood Landon Calvert MD LAB BLOOD ORDERABLES Performing Organization Address City/[facility] Phon e Number APS SPECTRA [facility] (ABNORMAL) Spectrae Chemistry (02/21/2022) P athologist Signature PTH 607 (H) 16 - 80 APS SPECTRA pg/mL [facility] Specimen (Source) Anatomical Collection Method Collection Time Re ceived Time Location / / Volume Laterality 02/21/2022 02/22/2022 10:2 4 AM CDT Narrative APS SPECTRA [facility] - 02/22/2022 Unless otherwise specified, test(s) performed at: [facility], [address] [place] [address], [place] [address] COTTON EXPERT: Vicente Flores M.D., Ph.D For any questions, please call customer service at FREQUENCY:OTHER Resulting Agency Comment Specimen source: Plasma Landon Calvert MD LAB BLOOD ORDERABLES Performing Organization Address City/[facility] Phon e Number APS SPECTRA [facility] Spectrae Chemistry (02/21/2022) P athologist Signature Calcium 9.5 8.7 - 10.4 APS [facility]PECTRA mg/dL [facility] Comment: Please note change in reference range. Specimen (Source) Anatomical Collection Method Collection Time Re ceived Time Location / / Volume Laterality 02/21/2022 02/22/2022 9:40 AM CDT Narrative APS SPECTRA [facility] - 02/22/2022 Unless otherwise specified, test(s) performed at: [facility], [address] [place] [address], [place] [address] COTTON EXPERT: Vicente Flores M.D., Ph.D For any questions, please call customer service at FREQUENCY:OTHER Resulting Agency Comment Specimen source: Serum Landon Calvert MD LAB BLOOD ORDERABLES Performing Organization Address City/State/ZIP Code Phon e Number APS SPECTRA [facility] documented in this encounter Visit Diagnoses Not on filedocumented in this encounter Care Teams Dairy Store Manager Relationship Specialty Start Date End Date Fabian Arias MD PCP - General Family Medicine 09/04/[address] [place] [address] documented as of this encounter
--- OUTSIDE RECORDS SUMMARY | 2022-05-06 02:00 | XMS_ITS | Encounter Summary ---
:1940 Author Organization [facility] Address [address] [place] [address] Care Team Providers Name Role Phone Fabian Arias MD Primary Care Provider Encounter Details Date Type Department Care Team Description 03/07/2022 Orders Only [facility] O f Landon Zarate MD [phone] [place] [address] [place], [place] [phone] (Wo rk) Social History Tobacco Use [...] 03/09/2022 Unless otherwise specified, test(s) performed at: [facility], [address] [place] [address] tamar [place] [address] RETOUCHING OPERATOR: Vicente Flores M.D., Ph.D For any questions, please call customer service at FREQUENCY:MONTHLY Resulting Agency Comment Specimen source: Blood Landon Calvert MD LAB BLOOD ORDERABLES Performing Organization Address City/State/ZIP [facility] Phon e Number APS [...] 03/09/2022 Unless otherwise specified, test(s) performed at: [facility], [address] [place] [address], [place] [address] RETOUCHING OPERATOR: Vicente Flores M.D., Ph.D For any questions, please call customer service at FREQUENCY:MONTHLY Resulting Agency Comment Specimen source: Plasma Landon Calvert MD LAB BLOOD ORDERABLES Performing Organization Address City/[facility] Code Phon e Number APS SPECTRA [...] 03/09/2022 Unless otherwise specified, test(s) performed at: [facility], [address] [place] [address] Syed Martinez, [place] [address] RETOUCHING OPERATOR: Vicente Flores M.D., Ph.D For any questions, please call customer service at FREQUENCY:MONTHLY Resulting Agency Comment Specimen source: Plasma Landon Calvert MD LAB BLOOD ORDERABLES Performing Organization Address City/State/ZIP Code Phon e Number APS SPECTRA [facility] (ABNORMAL) Spectrae Chemistry (03/07/2022) [facility] gist Method Time Signature BUN 59 (H) [...] 03/08/2022 Unless otherwise specified, test(s) performed at: [facility], [address] [place] [address], [place] [address] RETOUCHING OPERATOR: Vicente Flores M.D., Ph.D For any questions, please call customer service at FREQUENCY:MONTHLY Resulting Agency Comment Specimen source: Serum Landon Calvert MD LAB BLOOD ORDERABLES Performing Organization Address City/State/ZIP Code Phon e Number APS SPECTRA [facility] documented in this encounter Visit Diagnoses Not on filedocumented in this encounter Care Teams Director Family Relationship Specialty Start Date End Date Fabian Arias MD PCP - General Family Medicine 09/04/[address] [place] [address] documented as of this encounter
--- OUTSIDE RECORDS SUMMARY | 2022-05-06 02:00 | XMS_ITS | Encounter Summary ---
:1940 Author Organization [facility] Address [address] [place] [address] Care Team Providers Name Role Phone Fabian Arias MD Primary Care Provider Encounter Details Date Type Department Care Team Description 04/25/2022 Orders Only [facility] O f Landon Zarate MD [phone] [place] [address] [place], [place] [phone] (Wo rk) Social History Tobacco Use Types Packs/Day Years Used Date Smoking Tobacco: Smoker, Current Cigarettes Started: 07/01/1976 Status Unknown Sex Assigned at Date Recorded Not on file documented as of this encounter Plan of Treatment Not on filedocumented as of this encounter Procedures Procedure Name Priority Date/Time Associated Diagnosis Comme nts HEMATOLOGY Routine 04/25/2022 Results for thi s procedure are in the resu lts section. documented in this encounter Results (ABNORMAL) HEMATOLOGY (04/25/2022) Analysis Performed At Patho logist Time Signature Hemoglobin 11.5 (L) 12.0 - APS SPECTRA 16.0 g/dL [facility] Hemoglobin x 3 34.5 (L) 36.0 - APS SPECTRA 48.0 % [facility] Specimen (Source) Anatomical Collection Method Collection Time Re ceived Time Location / / Volume Laterality 04/25/2022 04/26/2022 3:00 AM CDT Narrative APS SPECTRA [facility] - 04/26/2022 Unless otherwise specified, test(s) performed at: [facility], [address] [place] [address] tamar [place] [address] DECORATOR CONSULTANT: Vicente Flores M.D., Ph.D For any questions, please call customer service at FREQUENCY:OTHER Resulting Agency Comment Specimen source: Blood Landon Calvert MD LAB BLOOD ORDERABLES Performing Organization Address City/State/ZIP Code Phon e Number APS SPECTRA [facility] documented in this encounter Visit Diagnoses Not on filedocumented in this encounter Care Teams Md Ophthalmologist Relationship Specialty Start Date End Date Fabian Arias MD PCP - General Family Medicine 09/04/[address] [place] [address] documented as of this encounter
--- OUTSIDE RECORDS SUMMARY | 2022-05-06 02:00 | XMS_ITS | Encounter Summary ---
:1940 Author Organization [facility] Address [address] [place] [address] Care Team Providers Name Role Phone Fabian Arias MD Primary Care Provider Encounter Details Date Type Department Care Team Description 02/02/2022 Treatment [facility] Adriane Carreno, FAHEEM [address] [place] [address] [place], [place] [address] [place], [place] [phone] (Wo rk) Social History Tobacco Use Types Packs/Day Years Used Date Smoking Tobacco: Smoker, Current Cigarettes Started: 07/01/1976 Status Unknown Sex Assigned at Date Recorded Not on file documented as of this encounter Plan of Treatment Not on filedocumented as of this encounter Visit Diagnoses Not on filedocumented in this encounter Care Teams Rate Marker Relationship Specialty Start Date End Date Fabian Arisa MD PCP - General Family Medicine 09/04/[address] [place] [address] documented as of this encounter
--- OUTSIDE RECORDS SUMMARY | 2022-05-06 02:00 | XMS_ITS | Encounter Summary ---
:1940 Author Organization [facility] Address [address] [place] [address] Care Team Providers Name Role Phone Fabian Arias MD Primary Care Provider Encounter Details Date Type Department Care Team Description 04/18/2022 Treatment [facility] f Landon Zarate MD [address] [place] [address] [place], [place] [phone] (Wo rk) Social History Tobacco Use Types Packs/Day Years Used Date Smoking Tobacco: Smoker, Current Cigarettes Started: 07/01/1976 Status Unknown Sex Assigned at Date Recorded Not on file documented as of this encounter Miscellaneous Notes Dialysis Note - Landon Calvert MD - 04/18/2022 8:47 AM CDT Date: Apr 18, 2022 Patient Name: Zamzam Garibay : 1940 Chart #: [id number] Sex: F This patient was personally seen [...] AM ) BP (sit): 162/92 AP(-) / AUTOMATIC HEMMER: 188/131 Pulse: 89 Chairside data as of [...] 2000 units IVP Every Treatment 07/05/2021 07/04/2022 LINSEED OIL PRESS TENDER: Landon Calvert MD [address]: [phone] SCHEDULE: -- 2nd Shift ACCESS: EDW: kg. DIALYZER: HD DURATION: NEEDLE SIZE: ANTICOAG: BATH: QB: ml/min QD: ml/min Subjective Tolerating dialysis well. 04/18/22: Doing well, no new concerns, BP better controlled, fluid gains improved. Access surgery set up next week, [facility] run on next week prior to Saturday procedure at [facility] and granddaughter bringing her. 04/11: Access surgery [...] prior to Saturday placement with HD at [facility] that . 02/21: She says she feels [...] for access placement on Friday 02/[address] [facility] and had hyperkalemia and surgery cancelled and she dialyzed in the hospital instead. She had improved gain <1L today and will get close to EDW but not to dry weight. Her BP is a little better with this gain and on HD today looks excellent. She has no symptoms and feels well today. 01/24: She missed extra treatment on Sat at [facility] Still above EDW. 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 No symptoms of fluid overload, [...] She has access appt on 10/03 at [facility]. No concerns today. 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 She followed with health and wellness advisor in [facility], did not [...] mouth once a day 04/12/2021 RenaPlex-D (vit b,j-ks-hzkw-selen-vit d3-e) 800 mcg-12.5 mg-2,000 unit tablet Take [...] how it feels. 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 Will need new access placement. She is being set up for vein mapping and surgeon consult Impression and Plan Stable dialysis Access placement next week Fri at [facility] Landon Calvert MD [ Signed And locked electronically On 04/18/2022 at 08:48:00 AM ] Transcribed: Landon Calvert ( 04/18/2022 ) documented in this encounter Plan of Treatment Not on filedocumented as of this encounter Visit Diagnoses Not on filedocumented in this encounter Care Teams Director Global Sales Relationship Specialty Start Date End Date Fabian Arias MD PCP - General Family Medicine 09/04/[address] [place] [address] documented as of this encounter
--- OUTSIDE RECORDS SUMMARY | 2022-05-06 02:00 | XMS_ITS | Encounter Summary ---
:1940 Author Organization [facility] Address [address] [place] [address] Care Team Providers Name Role Phone Fabian Arias MD Primary Care Provider Reason for Visit Reason Onset Date Comments ESRD Post-Discharge 02/05/2022 Encounter Details Date Type Department Care Team Description 02/05/2022 Telephone [facility] Alma Major RN ESRD Post-Discharge [address] [place] [phone] (Wo rk) Social History Tobacco Use Types Packs/Day Years Used Date Smoking Tobacco: Smoker, Current Cigarettes Started: 07/01/1976 Status Unknown Sex Assigned at Date Recorded Not on file documented as of this encounter Miscellaneous Notes Telephone Encounter - Cora Garcia LPN - 02/05/2022 2:24 PM CDT 02/05/2022 Patient Name: Zamzam Garibay Patient : 1940 Patient Address: [address] [place] [address] Patient Medications All medications were reviewed with the patient based on the discharge summary dated 02/02/22 from [facility]. Fluid Assessment: Do you feel you had an appropriate amount of fluid removed/is your fluid status appropriate? Yes Do you feel short of breath? No Do you have any other symptoms (cramps/dizziness)? No Barriers to Care: Confirm dialysis location: [facility] Scheduled date and time: MWF 2nd Do [...] on filedocumented in this encounter Care Teams Fence Erector Relationship Specialty Start Date End Date Fabian Arias MD PCP - General Family Medicine 09/04/[address] [place] [phone] documented as of this encounter
--- OUTSIDE RECORDS SUMMARY | 2022-05-06 02:00 | XMS_ITS | Encounter Summary ---
:1940 Author Organization [facility] Address [address] [place] [address] Care Team Providers Name Role Phone Fabian Arias MD Primary Care Provider Encounter Details Date Type Department Care Team Description 02/07/2022 Orders Only [facility] O f Landon Zarate MD [address] [place] [address] [place], [place] [phone] (Wo rk) Social History Tobacco Use [...] 02/08/2022 Unless otherwise specified, test(s) performed at: [facility], [address] [place] [address], [place] [address] PRECISION HONER: Vicente Flores M.D., Ph.D For any questions, please call customer service at FREQUENCY:OTHER Resulting Agency Comment Specimen source: Blood Landon Calvert MD LAB BLOOD ORDERABLES Performing Organization Address City/State/ZIP Code Phon e Number APS SPECTRA [facility] documented in this encounter Visit Diagnoses Not on filedocumented in this encounter Care Teams Community Center Director Relationship Specialty Start Date End Date Fabian Arias MD PCP - General Family Medicine 09/04/[address] [place] [address] documented as of this encounter
--- OUTSIDE RECORDS SUMMARY | 2022-05-06 02:00 | XMS_ITS | Encounter Summary ---
:1940 Author Organization [facility] Address [address] [place] [address] Care Team Providers Name Role Phone Fabian Arias MD Primary Care Provider Encounter Details Date Type Department Care Team Description 03/14/2022 Treatment [facility] Landon Zarate MD [address] [place] [address] [place], [place] [phone] (Wo rk) Social History Tobacco Use Types Packs/Day Years Used Date Smoking Tobacco: Smoker, Current Cigarettes Started: 07/01/1976 Status Unknown Sex Assigned at Date Recorded Not on file documented as of this encounter Miscellaneous Notes Dialysis Note - Landon Calvert MD - 03/14/2022 10:20 AM CDT Date: Mar 14, 2022 Patient Name: Zamzam Garibay : 1940 Chart #: [id number] Sex: F This patient was personally seen [...] AM ) BP (sit): 101/75 AP(-) / PHP MYSQL WEB DEVELOPER: 215/153 Pulse: 89 Chairside data as of [...] mcg IVP Every 2 weeks 02/28/2022 02/27/2023 QM CONSULTANT: Landon Calvert MD LOCATION: [phone] SCHEDULE: 2nd Shift EDW: kg. DIALYZER: HD [...] prior to Saturday placement with HD at [facility] that . 02/21: She says she feels [...] for access placement on Friday 02/02 at [facility] and had hyperkalemia and surgery cancelled and she dialyzed in the hospital instead. She had improved gain <1L today and will get close to EDW but not to dry weight. Her BP is a little better with this gain and on HD today looks excellent. She has no symptoms and feels well today. 01/24: She missed extra treatment on Sat at [facility]. Still above EDW. Trying to pull 2.6L today, traditionally has had issues with low BP with UF >2.3L but her BP is >200 systolic starting. Increased lisinopril last time, will increase again today. AVF/AVG surgery scheduled next week at [facility]. She feels well and has no dyspnea or orthopnea. 01/10/22: Her BP has been markedly elevated, persistently over dry weight and now 3+ Kg above dry weight post-Tx on Saturday. She does not lay flat due to SOB but this is chronic, denies dyspnea or other symptoms at this time. 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 12/06/21: She says she feels well. Her [...] She has access appt on 10/03 at [facility]. No concerns today. 09/06/21: [...] This is Jaz's first day back from [facility] isolation unit. She says she had no symptoms, but her son tested her when she was fatigued and had fever. She reports now having no symptoms at all. She says she feels great. Fluid gains have been better. Only complaint is acid reflux with once weekly vomiting up acid in her mouth and she says she used to be on acid pharmacy buyer but she hasn't had it sincebeing in [...] in the hospital overnight last month at [facility], SOB resolved with fluid removal. Can't remove [...] HD. 04/26/21: She was hospitalized briefly at [facility] for dyspnea, no pneumonia but rather related to CHF. She saw cardiology in follow-up in clinic, lisinopril and metoprolol and lasix with UF on HD to dry weight recommended. She is not interested in home dialysis, discussed today. 04/12/21: Patient new to me. She followed with real estate clerk in [facility], did not follow-up,crashed into [...] mouth once a day 04/12/2021 RenaPlex-D (vit b,b-bg-aedo-selen-vit d3-e) 800 mcg-12.5 mg-2,000 unit tablet Take [...] how it feels. Will send back to [facility] for re-evaluation and I will discuss with surgeon there 11/01/21: I will call [facility] for update on whether they have received report from her AVF surgery and plan moving forward for access revision/creation [facility] September 2021, need report [facility] appt 08/2021: LUE AVF lower arm placed in [place], fistulagram / stenosis of vein proximal not [...] above goal. Intact PTH is at goal. Paper Gluing Operator will adjust binders and vitamin D [...] show multiple times Re-scheduled access placement at [place], end of month with HD day prior at [facility] is planned Discussed fluid restriction and low salt diet again today Landon Calvert MD [ Signed And locked electronically On 03/14/2022 at 10:23:06 AM ] Transcribed: Landon Calvert ( 03/14/2022 ) documented in this encounter Plan of Treatment Not on filedocumented as of this encounter Visit Diagnoses Not on filedocumented in this encounter Care Teams Screen Making Supervisor Relationship Specialty Start Date End Date Fabian Arias MD PCP - General Family Medicine 09/04/[address] [place] [address] documented as of this encounter
--- OUTSIDE RECORDS SUMMARY | 2022-05-06 02:00 | XMS_ITS | Clinical Summary ---
:1940 Author Organization [facility] Address [address] [place] [address] Care Team Providers Name Role Phone Fabian [...] Encounters Date Type Specialty Care Team Description 05/02/2022 Orders Only NephLandon Stewart MD 05/02/2022 Treatment Landon Calvert MD 04/25/2022 Orders Only NephLandon Stewart MD 04/18/2022 Orders Only NephLandon Stewart MD 04/18/2022 Treatment Landon Calvert MD 04/11/2022 Orders Only NephLandon Stewart MD 04/11/2022 Treatment Landon Calvert MD 04/04/2022 Orders Only NephLandon Stewart MD 03/28/2022 Orders Only NephLandon Stewart MD 03/21/2022 Orders Only Nephrology Landon Calvert MD 03/21/2022 Treatment Landon Calvert MD 03/14/2022 Orders Only Nephrology Landon Calvert MD 03/14/2022 Treatment Landon Calvert MD 03/07/2022 Orders Only NephLandon Stewart MD 02/28/2022 Orders Only NephLandon Stewart MD 02/21/2022 Orders Only NephLandon Stewart MD 02/21/2022 Treatment Landon Calvert MD 02/14/2022 Orders Only Nephrology Landon Calvert MD 02/07/2022 Orders Only NephLandon Stewart MD 02/07/2022 Treatment Landon Calvert MD 02/05/2022 Telephone Nephrology Alma Sr, WIN ESRD Pos t-Discharge from Last 3 Months Family History Medical [...] Comments Blood Pressure 130/80 09/05/2020 1:08 PM SENIOR DIRECTOR Pulse 87 09/05/2020 1:08 PM SENIOR DIRECTOR Temperature 36.6 ??C (97.8 ??F) 06/02/2020 12:00 PM SENIOR DIRECTOR Respiratory Rate - - Oxygen Saturation 98% 09/05/2020 1:08 PM SENIOR DIRECTOR Inhaled Oxygen Concentration - - Weight 48.5 kg (107 lb) 09/05/2020 1:08 PM SENIOR DIRECTOR Height 160 cm (5' 3) 09/05/2020 1:08 PM SENIOR DIRECTOR Body Mass Index 18.95 09/05/2020 1:08 PM SENIOR DIRECTOR Plan of Treatment Health Maintenance Due Date Last Done Comments Hepatitis B Vaccine (1 of 5 - Risk Dialysis 4-dose 1962 series) Pneumococcal Vaccine: 65+ Years (2 - PCV) 11/03/20112010 Influenza Vaccine (#1) 2022 Procedures Procedure Name Priority Date/Time Associated Diagnosis Comme nts HEMATOLOGY Routine 05/02/2022 Results for thi s procedure are i n the results section . IMMUNO CHEMISTRY Routine 05/02/2022 Results for this procedure are i n the results section . CHEMISTRY Routine 05/02/2022 Results for thi s procedure are i n the results section . HEMATOLOGY Routine 04/25/2022 Results for thi s procedure are i n the results section . HEMATOLOGY Routine 04/18/2022 Results for thi s [...] section . from Last 3 Months Results IMMUNO CHEMISTRY (05/02/2022)Only the most recent of3 resultswithin the time period is included. athologist [facility] Hep B Surface Negative Negative APS SPECTRA Ag [facility] Specimen (Source) Anatomical Collection Method Collection Time Re ceived Time Location / / Volume Laterality 05/02/2022 05/03/2022 2:56 AM CDT Narrative APS SPECTRA [facility] - 05/03/2022 Unless otherwise specified, test(s) performed at: [facility], [address] [place] [address], [place] [address] VISUAL BASIC PROGRAMMER: Vicente Flores M.D., Ph.D For any questions, please call customer service at FREQUENCY:MONTHLY Resulting Agency Comment Specimen source: Plasma Landon Calvert MD LAB BLOOD ORDERABLES Performing Organization Address City/State/ZIP Code Phon e Number APS SPECTRA [facility] (ABNORMAL) HEMATOLOGY (05/02/2022)Only the most recent of13 resultswithin the time period is included. athologist [facility] WBC 7.00 4.80 - APS SPECTRA 10.80 [...] 05/03/2022 Unless otherwise specified, test(s) performed at: [facility], [address] [place] [address], [place] [address] VISUAL BASIC PROGRAMMER: Vicente Flores M.D., Ph.D For any questions, please call customer service at FREQUENCY:MONTHLY Resulting Agency Comment Specimen source: Blood Landon Calvert MD LAB BLOOD ORDERABLES Performing Organization Address City/State/ZIP Code Phon e Number APS SPECTRA [facility] (ABNORMAL) Spectrae Chemistry (05/02/2022)Only the most recent of7 resultswithin the time period is included. [facility] gist Method Time Signature BUN 55 (H) [...] 05/03/2022 Unless otherwise specified, test(s) performed at: [facility], [address] [place] [address], [place] [address] VISUAL BASIC PROGRAMMER: Vicente Flores M.D., Ph.D For any questions, please call customer service at FREQUENCY:MONTHLY Resulting Agency Comment Specimen source: Serum Landon Calvert MD LAB BLOOD ORDERABLES Performing Organization Address [facility] Phon e Number APS SPECTRA [facility] HD KINETICS (04/04/2022)Only the most recent of2 resultswithin the time period is included. P athologist Signature % Urea 80 65 - 80 % APS SPECTRA Reduction [facility] Specimen (Source) Anatomical Collection Method Collection Time Re ceived Time Location / / Volume Laterality 04/04/2022 04/05/2022 11:3 6 AM CDT Narrative APS SPECTRA [facility] - 04/05/2022 Unless otherwise specified, test(s) performed at: [facility], [address] [place] [address], [place] [address] VISUAL BASIC PROGRAMMER: Vicente Flores M.D., Ph.D For any questions, please call customer service at FREQUENCY:MONTHLY Resulting Agency Comment Specimen source: Plasma Landon Calvert MD LAB BLOOD ORDERABLES Performing Organization Address [facility] Phon e Number APS SPECTRA [facility] POST CHEMISTRY (04/04/2022)Only the most recent of2 resultswithin the time period is included. P athologist Signature BUN Post 10 6 - 19 APS SPECTRA Dialysis mg/dL [facility] Specimen (Source) Anatomical Collection Method Collection Time Re ceived Time Location / / Volume Laterality 04/04/2022 04/05/2022 11:3 6 AM CDT Narrative APS SPECTRA [facility] - 04/05/2022 Unless otherwise specified, test(s) performed at: [facility], [address] [place] [address] tamar [place] [address] VISUAL BASIC PROGRAMMER: Vicente Flores M.D., Ph.D For any questions, please call customer service at FREQUENCY:MONTHLY Resulting Agency Comment Specimen source: Plasma Landon Calvert MD LAB BLOOD ORDERABLES Performing Organization Address City/State/ZIP Code Phon e Number APS SPECTRA [facility] Spectra [facility] Lab Results (04/04/2022)Only the most recent of2 resultswithin the time period is included. athologist Signature spKt/V 1.90 [facility] (Daugirdas II) [...] Effective Dates Phone Addre ss Type Group [facility] MEDICARE [facility] WELLMED [id number] 2020-Presen [phone] [address] [id number] MCR ADV t 1 [place]ARTIN, ([id number]) [place] [address] [facility] MEDICARE AARP MEDICARE [id number] 2021-Prese [phone] [address] [address] COMPLETE nt 0 [facility] ([id number]) [place] [address] Zamzam Garibay Personal/Famil Self 1940 [id number] [address] [facility] y (Home) [place] [address] Care Teams Mowing Machine Operator Relationship Specialty Start Date End Date Fabian Arias MD PCP - General Family Medicine 09/04/[address] [place] [address]
--- OUTSIDE RECORDS SUMMARY | 2022-05-06 02:00 | XMS_ITS | Encounter Summary ---
:1940 Author Organization [facility] Address [address] [place] [address] Care Team Providers Name Role Phone Fabian Arias MD Primary Care Provider Encounter Details Date Type Department Care Team Description 02/21/2022 Treatment [facility] Landon Zarate MD [address] [place] [address] [place], [place] [phone] (Wo rk) Social History Tobacco Use Types Packs/Day Years Used Date Smoking Tobacco: Smoker, Current Cigarettes Started: 07/01/1976 Status Unknown Sex Assigned at Date Recorded Not on file documented as of this encounter Miscellaneous Notes Dialysis Note - Landon Calvert MD - 02/21/2022 11:20 AM CDT Date: Feb 21, 2022 Patient Name: Zamzam Garibay : 1940 Chart #: [id number] Sex: F This patient was personally seen [...] AM ) BP (sit): 191/86 AP(-) / METAL WINDOW SCREEN ASSEMBLER: 222/130 Pulse: 76 Chairside data as of [...] 2000 units IVP Every Treatment 07/05/2021 07/04/2022 FIRE INSPECTOR: Landon Calvert MD LOCATION: [place] [phone] SCHEDULE: -- 2nd Shift ACCESS: EDW: kg. [...] for access placement on Friday 02/02 at [facility] and had hyperkalemia and surgery [...] Sat at [facility]. Still above EDW. Trying to pull 2.6L today, traditionally has had issues with low BP with UF >2.3L but her BP is >200 systolic starting. Increased lisinopril last time, will increase again today. AVF[facility]AVG surgery scheduled next week at [facility]. She feels well and has no dyspnea or orthopnea. 01/10/22: Her BP has been markedly elevated, persistently over dry weight and now 3+ Kg above dry weight post-Tx on Saturday. She does not lay flat due to SOB but this is chronic, denies dyspnea or other symptoms at this time. 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 12/06/21: She says she feels [...] her daughter and grandchild up in the [facility]. No symptoms of fluid overload, denies [...] She has access appt on 10/03 at [facility]. No concerns today. 09/06/21: She [...] This is Jaz's first day back from [facility] isolation unit. She says she had no symptoms, but her son tested her when she was fatigued and had fever. She reports now having no symptoms at all. She says she feels great. Fluid gains have been better. Only complaint is acid reflux with once weekly vomiting up acid in her mouth and she says she used to be on acid animal hospital clerk but she hasn't had it sincebeing in [place] (des[place] it being on her med list [...] in the hospital overnight last month at [facility], SOB resolved with fluid removal. Can't remove [...] HD. 04/26/21: She was hospitalized briefly at [facility] for dyspnea, no pneumonia but rather related to CHF. She saw cardiology in follow-up in clinic, lisinopril and metoprolol and lasix with UF on HD to dry weight recommended. She is not interested in home dialysis, discussed today. 04/12/21: Patient new to me. She followed with international account representative in [facility], did not follow-up,crashed [...] mouth once a day 04/12/2021 RenaPlex-D (vit b,e-rw-aqnh-selen-vit d3-e) 800 mcg-12.5 mg-2,000 unit tablet Take [...] how it feels. Will send back to [facility] for re-evaluation and I will discuss with surgeon there 11/01/21: I will call [facility] for update on whether they have received report from her AVF surgery and plan moving forward for access revision/creation [facility] September 2021, need report [facility] appt 08/2021: LUE AVF lower arm placed in [place], fistulagram / stenosis of vein proximal not [...] weight as well Re-schedule AVG placement at [facility] Landon Calvert MD [ Signed And locked electronically On 02/21/2022 at 11:22:41 AM ] Transcribed: Landon Calvert ( 02/21/2022 ) documented in this encounter Plan of Treatment Not on filedocumented as of this encounter Visit Diagnoses Not on filedocumented in this encounter Care Teams Carpenter Foreman Relationship Specialty Start Date End Date Fabian Arias MD PCP - General Family Medicine 09/04/[address] [place] [address] documented as of this encounter
--- OUTSIDE RECORDS SUMMARY | 2022-05-06 02:00 | XMS_ITS | Encounter Summary ---
:1940 Author Organization [facility] Address [address] [place] [address] Care Team Providers Name Role Phone Fabian Arias MD Primary Care Provider Encounter Details Date Type Department Care Team Description 04/04/2022 Orders Only [facility] O f Landon Zarate MD [phone] [place] [address] [place], [place] [phone] (Wo rk) Social History Tobacco Use [...] 04/05/2022 Unless otherwise specified, test(s) performed at: [facility], [address] [place] [address], [place] [address] SHEEP HERDER: Vicente Flores M.D., Ph.D For any questions, please call customer service at FREQUENCY:MONTHLY Resulting Agency Comment Specimen source: Plasma Landon Calvert MD LAB BLOOD ORDERABLES Performing Organization Address City/State/ZIP [facility] Phon e Number APS SPECTRA [facility] (ABNORMAL) [...] 04/05/2022 Unless otherwise specified, test(s) performed at: [facility] [place] [address] SHEEP HERDER: Vicente Flores M.D., Ph.D For any questions, [...] victorina test result was obtained using the Dev[employer] Liaison XL chemilumin escent method. Results obtained with different assay methods or kits can not be used interchangeably. Specimen (Source) Anatomical Collection Method Collection Time Re ceived Time Location / / Volume Laterality 04/04/2022 04/05/2022 9:38 AM CDT Resulting Agency Comment Specimen source: Plasma Landon Calvert MD LAB BLOOD ORDERABLES Performing Organization Address City/[facility] Code Phon e Number APS SPECTRA [facility] (ABNORMAL) Spectrae Chemistry (04/04/2022) P athologist Signature PTH 619 (H) 16 - 80 APS SPECTRA pg/mL [facility] Specimen (Source) Anatomical Collection Method Collection Time Re ceived Time Location / / Volume Laterality 04/04/2022 04/05/2022 9:38 AM CDT Narrative APS SPECTRA [facility] - 04/05/2022 Unless otherwise specified, test(s) performed at: [facility], [address] [place] [address], [place] [address] SHEEP HERDER: Vicente Flores M.D., Ph.D For any questions, [...] 04/05/2022 Unless otherwise specified, test(s) performed at: [facility], [facility] [place] [address] SHEEP HERDER: Vicente Flores M.D., Ph.D For any questions, please call customer service at FREQUENCY:MONTHLY Resulting Agency Comment Specimen source: Plasma Landon Calvert MD LAB BLOOD ORDERABLES Performing Organization Address City/[facility] Code Phon e Number APS SPECTRA [...] 04/05/2022 Unless otherwise specified, test(s) performed at: [facility], [facility] [place] [address] SHEEP HERDER: Vicente Flores M.D., Ph.D For any questions, please call customer service at FREQUENCY:MONTHLY Resulting Agency Comment Specimen source: Blood Landon Calvert MD LAB BLOOD ORDERABLES Performing Organization Address City/[facility] Phon e Number APS SPECTRA [facility] documented in this encounter Visit Diagnoses Not on filedocumented in this encounter Care Teams Angle Shear Operator Relationship Specialty Start Date End Date Fabian Arisa MD PCP - General Family Medicine 09/04/[address] [place] [address] documented as of this encounter
--- OUTSIDE RECORDS SUMMARY | 2022-05-06 02:00 | XMS_ITS | Encounter Summary ---
:1940 Author Organization [facility] Address [address] [place] [address] Care Team Providers Name Role Phone Fabian Arias MD Primary Care Provider Encounter Details Date Type Department Care Team Description 01/24/2022 Orders Only [facility] f Landon Zarate MD [phone] [place] [address] [place], [place] [phone] (Wo rk) Social History Tobacco Use [...] 01/25/2022 Unless otherwise specified, test(s) performed at: [facility], [address] [place] [address] [place] [address] TELEPHONE CLERK: Vicente Flores M.D., Ph.D For any questions, please call customer service at FREQUENCY:OTHER Resulting Agency Comment Specimen source: Blood Landon Calvert MD LAB BLOOD ORDERABLES Performing Organization Address City/State/ZIP Code Phon e Number APS SPECTRA [facility] documented in this encounter Visit Diagnoses Not on filedocumented in this encounter Care Teams Sales Representative Meats Relationship Specialty Start Date End Date Fabian Arias MD PCP - General Family Medicine 09/04/[address] [place] [address] documented as of this encounter
--- OUTSIDE RECORDS SUMMARY | 2022-05-06 02:01 | XMS_ITS | Encounter Summary ---
:1940 Author Organization [facility] Address [address] [place] [address] Care Team Providers Name Role Phone Fabian Arias MD Primary Care Provider Encounter Details Date Type Department Care Team Description 11/08/2021 Orders Only [facility] f Landon Zarate MD [address] [place] [address] [place], [place] [phone] (Wo rk) Social History Tobacco Use [...] 11/10/2021 Unless otherwise specified, test(s) performed at: [facility], [address] [place] [address] ALGORITHM DEVELOPER: Carl Paula M.D. For any questions, please call customer service at FREQUENCY:OTHER Resulting Agency Comment Specimen source: Serum Landon Calvert MD LAB BLOOD ORDERABLES Performing Organization Address [facility] [facility] Phon e Number APS SPECTRA [facility] [...] 11/09/2021 Unless otherwise specified, test(s) performed at: [facility], [address] [place] [address] ALGORITHM DEVELOPER: Carl Paula M.D. For any questions, please call customer service at FREQUENCY:OTHER Resulting Agency Comment Specimen source: Blood Landon Calvert MD LAB BLOOD ORDERABLES Performing Organization Address [facility] [facility] Phon e Number APS SPECTRA [facility] (ABNORMAL) Spectrae Chemistry (11/08/2021) P athologist Signature PTH 138 (H) 16 - 80 APS SPECTRA pg/mL [facility] Specimen (Source) Anatomical Collection Method Collection Time Re ceived Time Location / / Volume Laterality 11/08/2021 11/09/2021 11:3 1 AM CDT Narrative [facility] - 11/09/2021 Unless otherwise specified, test(s) performed at: [facility], [address] [place] [address] ALGORITHM DEVELOPER: Carl Paula M.D. For any questions, please call customer service at FREQUENCY:OTHER Resulting Agency Comment Specimen source: Plasma Landon Calvert MD LAB BLOOD ORDERABLES Performing Organization Address City/[facility] Phon e Number APS SPECTRA [facility] documented in this encounter Visit Diagnoses Not on filedocumented in this encounter Care Teams Application Penetration Tester Relationship Specialty Start Date End Date Fabian Arias MD PCP - General Family Medicine 09/04/[address] [place] [address] documented as of this encounter
--- OUTSIDE RECORDS SUMMARY | 2022-05-06 02:01 | XMS_ITS | Encounter Summary ---
:1940 Author Organization [facility] Address [address] [place] [address] Care Team Providers Name Role Phone Fabian Arias MD Primary Care Provider Encounter Details Date Type Department Care Team Description 11/15/2021 Orders Only [facility] f Landon Zarate MD [phone] [place] [address] [place], [place] [phone] (Wo rk) Social History Tobacco Use [...] 11/16/2021 Unless otherwise specified, test(s) performed at: [facility], [address] [place] [address] INSTRUMENTATION AND CONTROLS DESIGNER: Carl Paula M.D. For any questions, please call customer service at FREQUENCY:OTHER Resulting Agency Comment Specimen source: Blood Landon Calvert MD LAB BLOOD ORDERABLES Performing Organization Address City/State/ZIP Code Phon e Number APS SPECTRA [facility] documented in this encounter Visit Diagnoses Not on filedocumented in this encounter Care Teams Microsoft Developer Relationship Specialty Start Date End Date Fabian Arias MD PCP - General Family Medicine 09/04/[address] [place] [address] documented as of this encounter
--- OUTSIDE RECORDS SUMMARY | 2022-05-06 02:01 | XMS_ITS | Encounter Summary ---
:1940 Author Organization [facility] Address [address] [place] [address] Care Team Providers Name Role Phone Fabian Arias MD Primary Care Provider Encounter Details Date Type Department Care Team Description 10/25/2021 Treatment [facility] f Landon Zarate MD [address] [place] [address] [place], [place] [phone] (Wo rk) Social History Tobacco Use Types Packs/Day Years Used Date Smoking Tobacco: Smoker, Current Cigarettes Started: 07/01/1976 Status Unknown Sex Assigned at Date Recorded Not on file documented as of this encounter Miscellaneous Notes Dialysis Note - Landon Calvert MD - 10/25/2021 9:19 AM CDT Date: Oct 25, 2021 Patient Name: Zamzam Garibay : 1940 Chart #: [id number] Sex: F This patient was personally seen [...] AM ) BP (sit): 152/81 AP(-) / SALVAGE MEND WORKER: 179/130 Pulse: 81 Chairside data as of [...] 1.0 mcg ORAL Every Treatment 06/05/2021 06/04/2022 COMPLIANCE REVIEW SPECIALIST: Landon Calvert MD LOCATION: [phone] SCHEDULE: -- 2nd Shift ACCESS: EDW: kg. [...] 10/03 at [facility]. No concerns today. 09/06/21: [...] This is Jaz's first day back from [facility]. She says she had no symptoms, but her son tested her when she was fatigued and had fever. She reports now having no symptoms at all. She says she feels great. Fluid gains have been better. 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 Can't remove [...] HD. 04/26/21: She was hospitalized briefly at [place] for dyspnea, no pneumonia but rather related to CHF. She saw cardiology in follow-up in clinic, lisinopril and metoprolol and lasix with UF on HD to dry weight recommended. She is not interested in home dialysis, discussed today. 04/12/21: Patient new to me. 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 Will need new access placement. She is being set up for vein mapping and surgeon consult Impression and Plan Stable dialysis, no changes today Need report from [facility], unclear result as patient says they want [...] filedocumented in this encounter Care Teams Supervisor Parking Lot Relationship Specialty Start Date End Date Fabian Arias MD PCP - General Family Medicine 09/04/[address] [place] [address] documented as of this encounter
--- OUTSIDE RECORDS SUMMARY | 2022-05-06 02:01 | XMS_ITS | Encounter Summary ---
:1940 Author Organization [facility] Address [address] [place] [address] Care Team Providers Name Role Phone Fabian Arias MD Primary Care Provider Encounter Details Date Type Department Care Team Description 08/16/2021 Treatment [facility] f Landon Zarate MD [address] [place] [address] [place], [place] [phone] (Wo rk) Social History Tobacco Use Types Packs/Day Years Used Date Smoking Tobacco: Smoker, Current Cigarettes Started: 07/01/1976 Status Unknown Sex Assigned at Date Recorded Not on file documented as of this encounter Miscellaneous Notes Dialysis Note - Landon Calvert MD - 08/16/2021 10:12 AM CST Date: Aug 16, 2021 Patient Name: Zamzam Garibay : 1940 Chart #: [id number] Sex: F This patient was personally seen [...] AM ) BP (sit): 169/86 AP(-) / RISK ADJUSTMENT SPECIALIST: 218/151 Pulse: 80 Chairside data as of [...] 03:30 Actual Treatment Time 03:07 03:32 03:31 MOLD HOISTER: Landon Calvert MD LOCATION: [phone] SCHEDULE: -W- 2nd Shift ACCESS: EDW: kg. [...] This is Jaz's first day back from [facility] unit. She says she had no symptoms, but her son tested her when she was fatigued and had fever. She reports now having no symptoms at all. She says she feels great. Fluid gains have been better. Only complaint is acid reflux with once weekly vomiting up acid in her mouth and she says she used to be on acid grape grower but she hasn't had it sincebeing in [place] (despite it being on her med list [...] in the hospital overnight last month at [place], SOB resolved with fluid removal. Can't remove [...] HD. 04/26/21: She was hospitalized briefly at [place] for dyspnea, no pneumonia but rather related to CHF. She saw cardiology in follow-up in clinic, lisinopril and metoprolol and lasix with UF on HD to dry weight recommended. She is not interested in home dialysis, discussed today. 04/12/21: Patient new to me. She followed with unit assembler in [facility], did not follow-up,crashed into dialysis in [...] mouth once a day 04/12/2021 RenaPlex-D (vit b,p-hi-amdb-selen-vit d3-e) 800 mcg-12.5 mg-2,000 unit tablet Take [...] tributaries. Have had difficulty getting her into [facility], now has procedure scheduled at [facility] but delayed until August due to COVID infection. Has appt at [place] 08/22/21 Impression and Plan Increase EDW to 46 Kg Lower IDWG discussed in detail, may need extra run for UF on occasion to avoid pulmonary edema Disucssed renal diet and phos binder, emphasized this today with phos jump to 9.4! She has access appt next week, got postponed again but procedure planned at [place] next week on Saturday Landon Calvert MD [ Signed And locked electronically On 08/16/2021 at 10:17:00 AM ] Transcribed: Landon Calvert ( 08/16/2021 ) documented in this encounter Plan of Treatment Not on filedocumented as of this encounter Visit Diagnoses Not on filedocumented in this encounter Care Teams Fruit Thinner Relationship Specialty Start Date End Date Fabian Arias MD PCP - General Family Medicine 09/04/[address] [place] [address] documented as of this encounter
--- OUTSIDE RECORDS SUMMARY | 2022-05-06 02:01 | XMS_ITS | Encounter Summary ---
:1940 Author Organization [facility] Address [address] [place] [address] Care Team Providers Name Role Phone Fabian Arias MD Primary Care Provider Encounter Details Date Type Department Care Team Description 09/06/2021 Orders Only [facility] f Landon Zarate MD [address] [place] [address] [place], [place] [phone] (Wo rk) Social History Tobacco Use [...] / Volume Laterality 09/06/2021 09/07/2021 9:53 AM FAIRING WORKER Narrative APS SPECTRA [facility] - 09/07/2021 Unless otherwise specified, test(s) performed at: [facility], [address] [place] [address] CUT IN STATION OPERATOR: Carl Paula, M.D. For any questions, please call customer service at FREQUENCY:OTHER Resulting Agency Comment Specimen source: Blood Landon Calvert MD LAB BLOOD ORDERABLES Performing Organization Address City/State/ZIP Code Phon e Number APS SPECTRA [facility] documented in this encounter Visit Diagnoses Not on filedocumented in this encounter Care Teams Taping Supervisor Relationship Specialty Start Date End Date Fabian Arias MD PCP - General Family Medicine 09/04/[address] [place] [address] documented as of this encounter
--- OUTSIDE RECORDS SUMMARY | 2022-05-06 02:01 | XMS_ITS | Encounter Summary ---
:1940 Author Organization [facility] Address [address] [place] [address] Care Team Providers Name Role Phone Fabian Arias MD Primary Care Provider Encounter Details Date Type Department Care Team Description 10/18/2021 Orders [facility] f Landon Zarate MD [address] [place] [address] [place], [place] [phone] (Wo rk) Social History Tobacco Use [...] 10/21/2021 Unless otherwise specified, test(s) performed at: [facility], [address] [place] [address] PUBLIC EVENTS FACILITIES RENTAL MANAGER: Carl Paula M.D. For any questions, [...] 10/21/2021 Unless otherwise specified, test(s) performed at: [facility], [address] [place] [address] PUBLIC EVENTS FACILITIES RENTAL MANAGER: Carl Paula M.D. For any questions, please call customer service at FREQUENCY:OTHER Resulting Agency Comment Specimen source: Blood Landon Calvert MD LAB BLOOD ORDERABLES Performing Organization Address City/[facility] Phon e Number APS SPECTRA [facility] documented in this encounter Visit Diagnoses Not on filedocumented in this encounter Care Teams Independent Insurance Adjuster Relationship Specialty Start Date End Date Fabian Arias MD PCP - General Family Medicine 09/04/[address] [place] [address] documented as of this encounter
--- OUTSIDE RECORDS SUMMARY | 2022-05-06 02:01 | XMS_ITS | Encounter Summary ---
:1940 Author Organization [facility] Address [address] [place] [address] Care Team Providers Name Role Phone Fabian Arias MD Primary Care Provider Encounter Details Date Type Department Care Team Description 09/27/2021 Orders Only [facility] f Landon Zarate MD [address] [place] [address] [place], [place] [phone] (Wo rk) Social History Tobacco Use [...] 09/28/2021 Unless otherwise specified, test(s) performed at: [facility], [address] [place] [address] CANE WEIGHER HELPER: Carl Paula M.D. For any questions, please call customer service at FREQUENCY:OTHER Resulting Agency Comment Specimen source: Blood Landon Calvert MD LAB BLOOD ORDERABLES Performing Organization Address City/State/ZIP Code Phon e Number APS SPECTRA [facility] documented in this encounter Visit Diagnoses Not on filedocumented in this encounter Care Teams Track Layer Relationship Specialty Start Date End Date Fabian Arias MD PCP - General Family Medicine 09/04/[address] [place] [address] documented as of this encounter
--- OUTSIDE RECORDS SUMMARY | 2022-05-06 02:01 | XMS_ITS | Encounter Summary ---
:1940 Author Organization [facility] Address [address] [place] [address] Care Team Providers Name Role Phone Fabian Arias MD Primary Care Provider Encounter Details Date Type Department Care Team Description 01/10/2022 Treatment [facility] f Landon Zarate MD [address] [place] [address] [place], [place] [phone] (Wo rk) Social History Tobacco Use Types Packs/Day Years Used Date Smoking Tobacco: Smoker, Current Cigarettes Started: 07/01/1976 Status Unknown Sex Assigned at Date Recorded Not on file documented as of this encounter Miscellaneous Notes Dialysis Note - Landon Calvert MD - 01/10/2022 10:24 AM CDT Date: Jan 10, 2022 Patient Name: Zamzam Garibay : 1940 Chart #: [id number] Sex: F This patient was personally seen for a complete visit as part of routine monthly dialysis care. A review of the dialysis treatment, blood pressure, estimated dry weight and recent lab values was made. These were discussed with the patient and staff as necessary. HYDRAULIC PRESS TENDER: Landon Calvert MD LOCATION: [facility] [phone] SCHEDULE: -W- 2nd Shift EDW: kg. DIALYZER: [...] yesterday but she will need surgery at [facility] so this is scheduled in a couple [...] She denies any SOB or orthopnea at [facility]. 12/06/21: She says she feels well. [...] her daughter and grandchild up in the [facility]. No symptoms of fluid overload, [...] This is Jaz's first day back from [facility] isolation unit. 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 Can't remove [...] HD. 04/26/21: She was hospitalized briefly at [place] for dyspnea, no pneumonia but rather related to CHF. She saw cardiology in follow-up in clinic, lisinopril and metoprolol and lasix with UF on HD to dry weight recommended. She is not interested in home dialysis, discussed today. 04/12/21: Patient new to me. She followed with raiser helper in [facility], did not follow-up,crashed into dialysis in January [...] mouth once a day 04/12/2021 RenaPlex-D (vit b,m-bj-vbtq-selen-vit d3-e) 800 mcg-12.5 mg-2,000 unit tablet Take [...] 08/2021: LUE AVF lower arm placed in [place], fistulagram / stenosis of vein proximal not [...] above goal. Intact PTH is above goal. Primary Special Educator will adjust binders and vitamin D per [...] a UF run on Saturday in the [facility] as do not work for her. 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
--- OUTSIDE RECORDS SUMMARY | 2022-05-06 02:01 | XMS_ITS | Encounter Summary ---
:1940 Author Organization [facility] Address [address] [place] [address] Care Team Providers Name Role Phone Fabian Arias MD Primary Care Provider Encounter Details Date Type Department Care Team Description 12/06/2021 Orders Only [facility] O f Landon Zarate MD [address] [place] [address] [place], [place] [phone] (Wo rk) Social History Tobacco Use [...] 12/08/2021 Unless otherwise specified, test(s) performed at: [facility], [address] [place] [address] MENTAL HYGIENE CONSULTANT: Carl Paula M.D. For any questions, please call customer service at FREQUENCY:OTHER Resulting Agency Comment Specimen source: Blood Landon Calvert MD LAB BLOOD ORDERABLES Performing Organization Address City/State/ZIP Code Phon e Number APS SPECTRA [facility] documented in this encounter Visit Diagnoses Not on filedocumented in this encounter Care Teams Computer Systems Technician Relationship Specialty Start Date End Date Fabian Arias MD PCP - General Family Medicine 09/04/[address] [place] [address] documented as of this encounter
--- OUTSIDE RECORDS SUMMARY | 2022-05-06 02:01 | XMS_ITS | Encounter Summary ---
:1940 Author Organization [facility] Address [address] [place] [address] Care Team Providers Name Role Phone Fabian Arias MD Primary Care Provider Encounter Details Date Type Department Care Team Description 09/20/2021 Treatment [facility] f Landon Zarate MD [address] [place] [address] [place], [place] [phone] (Wo rk) Social History Tobacco Use Types Packs/Day Years Used Date Smoking Tobacco: Smoker, Current Cigarettes Started: 07/01/1976 Status Unknown Sex Assigned at Date Recorded Not on file documented as of this encounter Miscellaneous Notes Dialysis Note - Landon Calvert MD - 09/20/2021 10:31 AM CDT Date: Sep 20, 2021 Patient Name: Zamzam Garibay : 1940 Chart #: [id number] Sex: F This patient was personally seen [...] 1.0 mcg ORAL Every Treatment 06/05/2021 06/04/2022 SAND MILLER: Landon Calvert MD LOCATION: [phone] SCHEDULE: -W- 2nd Shift ACCESS: EDW: kg. DIALYZER: HD DURATION: NEEDLE SIZE: ANTICOAG: BATH: QB: ml/min QD: ml/min Subjective Tolerating dialysis well. 09/20/21: She is doing well, Fluid gains improved, no SOB or edema. She has access appt on 10/03 at [facility]. No concerns today. [...] This is Jaz's first day back from [facility]. She says she had no symptoms, but her son tested her when she was fatigued and had fever. She reports now having no symptoms at all. She says she feels great. Fluid gains have been better. 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 Can't remove [...] here and she sees PCP tomorrow. 05/03/21: Zamazm says she is so thankful to be here. She feels excellent and is very happy with her living situation. She has no concerns at all and is doing great on HD. 04/26/21: She was hospitalized briefly at [place] for dyspnea, no pneumonia but rather related to CHF. She saw cardiology in follow-up in clinic, lisinopril and metoprolol and lasix with UF on HD to dry weight recommended. She is not interested in home dialysis, discussed today. 04/12/21: Patient new to me. 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 Will need new access placement. She is being set up for vein mapping and surgeon consult Impression and Plan Stable dialysis, no changes today Congratulated on improved fluid gains. She stopped eating Nachos Follow phos control with change in diet and on binder Access appt 10/03 at [facility] Landon Calvert MD [ Signed And locked electronically On 09/20/2021 at 10:33:08 AM ] Transcribed: Landon Calvert ( 09/20/2021 ) documented in this encounter Plan of Treatment Not on filedocumented as of this encounter Visit Diagnoses Not on filedocumented in this encounter Care Teams Meat Sales And Storage Manager Relationship Specialty Start Date End Date Fabian Arias MD PCP - General Family Medicine 09/04/[address] [place] [address] documented as of this encounter
--- OUTSIDE RECORDS SUMMARY | 2022-05-06 02:01 | XMS_ITS | Encounter Summary ---
:1940 Author Organization [facility] Address [address] [place] [address] Care Team Providers Name Role Phone Fabian Arias MD Primary Care Provider Encounter Details Date Type Department Care Team Description 11/06/2021 Orders Only [facility] O f Landon Zarate MD [address] [place] [address] [place], [place] [phone] (Wo rk) Social History Tobacco Use [...] 11/07/2021 Unless otherwise specified, test(s) performed at: [facility], [address] [place] [address] HORSE EXERCISER: Carl Paula M.D. For any questions, please call customer service at FREQUENCY:OTHER Resulting Agency Comment Specimen source: Serum Landon Calvert MD LAB BLOOD ORDERABLES Performing Organization Address City/State/ZIP Code Phon e Number APS SPECTRA [facility] documented in this encounter Visit Diagnoses Not on filedocumented in this encounter Care Teams Pattern Technician Relationship Specialty Start Date End Date Fabian Arias MD PCP - General Family Medicine 09/04/[address] [place] [address] documented as of this encounter
--- OUTSIDE RECORDS SUMMARY | 2022-05-06 02:01 | XMS_ITS | Encounter Summary ---
:1940 Author Organization [facility] Address [address] [place] [address] Care Team Providers Name Role Phone Fabian Arias MD Primary Care Provider Encounter Details Date Type Department Care Team Description 11/29/2021 [facility] O f Landon Zarate MD [phone] [place] [address] [place], [place] [phone] (Wo rk) Social History Tobacco Use [...] ORDERABLES Performing Organization Address City/[facility]/ZIP Code Phon e Number APS SPECTRA [facility] POST CHEMISTRY (11/29/2021) athologist Signature BUN Post 11 6 - 19 APS SPECTRA Dialysis mg/dL [facility] Specimen (Source) Anatomical Collection Method Collection Time Re ceived Time Location / / Volume Laterality 11/29/2021 11/30/2021 10:2 2 PM CDT Narrative APS SPECTRA [facility] - 12/01/2021 Unless otherwise specified, test(s) performed at: [facility], [address] [place] [address] SERGING MACHINE OPERATOR AUTOMATIC: Carl Paula M.D. For any questions, please call customer service at FREQUENCY:MONTHLY Resulting Agency Comment Specimen source: Plasma Landon Calvert MD LAB BLOOD ORDERABLES Performing Organization Address City/[facility]/ZIP Code Phon e Number APS SPECTRA [facility] [...] 12/02/2021 Unless otherwise specified, test(s) performed at: [facility], [address] [place] [address] SERGING MACHINE OPERATOR AUTOMATIC: Carl Paula M.D. For any questions, please call customer service at FREQUENCY:MONTHLY Resulting Agency Comment Specimen source: Serum Landon Calvert MD LAB BLOOD ORDERABLES Performing Organization Address City/State/ZIP Code Phon e Number APS SPECTRA [facility] (ABNORMAL) Spectrae Chemistry (11/29/2021) [facility] gist Method Time Signature BUN 56 (H) [...] 12/01/2021 Unless otherwise specified, test(s) performed at: [facility], [address] [place] [address] SERGING MACHINE OPERATOR AUTOMATIC: Carl Paula M.D. For any questions, please [...] 12/01/2021 Unless otherwise specified, test(s) performed at: [facility], [address] [place] [address] SERGING MACHINE OPERATOR AUTOMATIC: Carl Paula M.D. For any questions, please call customer service at FREQUENCY:MONTHLY Resulting Agency Comment Specimen source: Blood Landon Calvert MD LAB BLOOD ORDERABLES Performing Organization Address City/State/ZIP Code Phon e Number APS SPECTRA [facility] documented in this encounter Visit Diagnoses Not on filedocumented in this encounter Care Teams Acquisition Cost Estimator Relationship Specialty Start Date End Date Fabian Arias MD PCP - General Family Medicine 09/04/[address] [place] [address] documented as of this encounter
--- OUTSIDE RECORDS SUMMARY | 2022-05-06 02:01 | XMS_ITS | Encounter Summary ---
:1940 Author Organization [facility] Address [address] [place] [address] Care Team Providers Name Role Phone Fabian Arias MD Primary Care Provider Encounter Details Date Type Department Care Team Description 10/11/2021 Orders [facility] O f Landon Zarate MD [address] [place] [address] [place], [place] [phone] (Wo rk) Social History Tobacco Use [...] 10/12/2021 Unless otherwise specified, test(s) performed at: [facility], [address] [place] [address] TABULATING SUPERVISOR: Carl Paula M.D. For any questions, please call customer service at FREQUENCY:OTHER Resulting Agency Comment Specimen source: Blood Landon Calvert MD LAB BLOOD ORDERABLES Performing Organization Address City/State/ZIP Code Phon e Number APS SPECTRA [facility] documented in this encounter Visit Diagnoses Not on filedocumented in this encounter Care Teams Azure Developer Relationship Specialty Start Date End Date Fabian Arias MD PCP - General Family Medicine 09/04/[address] [place] [address] documented as of this encounter
--- OUTSIDE RECORDS SUMMARY | 2022-05-06 02:01 | XMS_ITS | Encounter Summary ---
:1940 Author Organization [facility] Address [address] [place] [address] Care Team Providers Name Role Phone Fabian Arias MD Primary Care Provider Encounter Details Date Type Department Care Team Description 01/03/2022 Orders [facility] O f Landon Zarate MD [address] [place] [address] [place], [place] [phone] (Wo rk) Social History Tobacco Use [...] Number CELIA (ABNORMAL) HD KINETICS (01/03/2022) athologist [facility] [place] % Urea 82 (H) 65 - 80 % APS SPECTRA Reduction [facility] Specimen (Source) Anatomical Collection Method Collection Time Re ceived Time Location / / Volume Laterality 01/03/2022 01/05/2022 3:58 PM CDT Resulting Agency Comment Specimen source: Plasma Landon Calvert MD LAB BLOOD ORDERABLES Performing Organization Address City/State/ZIP Code Phon e Number APS SPECTRA [facility] POST CHEMISTRY (01/03/2022) athologist [facility] BUN Post 11 6 - 19 APS SPECTRA Dialysis mg/dL [facility] Specimen (Source) Anatomical Collection Method Collection Time Re ceived Time Location / / Volume Laterality 01/03/2022 01/05/2022 3:58 PM CDT Narrative APS SPECTRA [facility] - 01/06/2022 Unless otherwise specified, test(s) performed at: [facility], [address] [place] [address], [place] [address] LIFE ADVISOR: Vicente Flores M.D., Ph.D For any questions, [...] 01/06/2022 Unless otherwise specified, test(s) performed at: [facility], [address] [place] [address], [place] [address] LIFE ADVISOR: Vicente Flores M.D., Ph.D For any questions, [...] 01/05/2022 Unless otherwise specified, test(s) performed at: [facility] [address] [place] [address] LIFE ADVISOR: Vicente Flores M.D., Ph.D For any questions, please call customer service at FREQUENCY:MONTHLY Resulting Agency Comment Specimen source: Blood Landon Calvert MD LAB BLOOD ORDERABLES Performing Organization Address City/State/[facility] Code Phon e Number APS SPECTRA [facility] (ABNORMAL) SPECIAL CHEMISTRY (01/03/2022) P athologist Signature Vitamin D, 14.9 (L) 19.9 - APS SPECTRA 1,25-Dihydroxy 79.3 pg/mL [facility] Specimen (Source) Anatomical Collection Method Collection Time Re ceived Time Location / / Volume Laterality 01/03/2022 01/05/2022 3:45 AM CDT Narrative APS SPECTRA [facility] - 01/05/2022 Unless otherwise specified, test(s) performed at: [facility], [address] [place] [address] LIFE ADVISOR: Vicente Flores M.D., Ph.D For any questions, please call customer service at FREQUENCY:MONTHLY Resulting Agency Comment Specimen source: Serum Landon Calvert MD LAB BLOOD BANK TEST ORDERABL ES Performing Organization Address City/State/ZIP Code Phon e Number APS SPECTRA [facility] (ABNORMAL) Spectrae Chemistry (01/03/2022) [facility] gist Method Time Signature BUN 62 [...] 01/05/2022 Unless otherwise specified, test(s) performed at: [facility], [address] [place] [address], [place] [address] LIFE ADVISOR: Vicente Flores M.D., Ph.D For any questions, please call customer service at FREQUENCY:MONTHLY Resulting Agency Comment Specimen source: Serum Landon Calvert MD LAB BLOOD ORDERABLES Performing Organization Address City/State/ZIP Code Phon e Number APS SPECTRA [facility] documented in this encounter Visit Diagnoses Not on filedocumented in this encounter Care Teams Comber Fixer Relationship Specialty Start Date End Date Fabian Arias MD PCP - General Family Medicine 09/04/[address] [place] [address] documented as of this encounter
--- OUTSIDE RECORDS SUMMARY | 2022-05-06 02:01 | XMS_ITS | Encounter Summary ---
:1940 Author Organization [facility] Address [address] [place] [address] Care Team Providers Name Role Phone Fabian Arias MD Primary Care Provider Encounter Details Date Type Department Care Team Description 12/20/2021 Orders Only [facility] O f Landon Zarate MD [address] [place] [address] [place], [place] [phone] (Wo rk) Social History Tobacco Use [...] 12/21/2021 Unless otherwise specified, test(s) performed at: [facility], [address] [place] [address] FLAME HARDENER: Carl Paula M.D. For any questions, please call customer service at FREQUENCY:OTHER Resulting Agency Comment Specimen source: Blood Landon Calvert MD LAB BLOOD ORDERABLES Performing Organization Address City/State/ZIP Code Phon e Number APS SPECTRA [facility] documented in this encounter Visit Diagnoses Not on filedocumented in this encounter Care Teams Mat Puncher Relationship Specialty Start Date End Date Fabian Arias MD PCP - General Family Medicine 09/04/[address] [place] [address] documented as of this encounter
--- OUTSIDE RECORDS SUMMARY | 2022-05-06 02:01 | XMS_ITS | Encounter Summary ---
:1940 Author Organization [facility] Address [address] [place] [address] Care Team Providers Name Role Phone Fabian Arias MD Primary Care Provider Encounter Details Date Type Department Care Team Description 01/10/2022 Orders Only [facility] O f Landon Zarate MD [address] [place] [address] [place], [place] [phone] (Wo rk) Social History Tobacco Use [...] 01/11/2022 Unless otherwise specified, test(s) performed at: [facility] [address] [place] [address] [place]ar [place] [address] CURRICULUM SUPERVISOR: Vicente Flores M.D., Ph.D For any questions, please call customer service at FREQUENCY:OTHER Resulting Agency Comment Specimen source: Blood Landon Calvert MD LAB BLOOD ORDERABLES Performing Organization Address City/State/ZIP Code Phon e Number APS SPECTRA [facility] documented in this encounter Visit Diagnoses Not on filedocumented in this encounter Care Teams Client Director Relationship Specialty Start Date End Date Fabian Arias MD PCP - General Family Medicine 09/04/[address] [place] [address] documented as of this encounter
--- OUTSIDE RECORDS SUMMARY | 2022-05-06 02:01 | XMS_ITS | Encounter Summary ---
:1940 Author Organization [facility] Address [address] [place] [address] Care Team Providers Name Role Phone Fabian Arias MD Primary Care Provider Encounter Details Date Type Department Care Team Description 11/22/2021 Orders Only [facility] O f Landon Zarate MD [address] [place] [address] [place], [place] [phone] (Wo rk) Social History Tobacco Use [...] 11/23/2021 Unless otherwise specified, test(s) performed at: [facility], [address] [place] [address] DIRECTOR OF PUBLICATIONS: Carl Paula M.D. For any questions, please call customer service at FREQUENCY:OTHER Resulting Agency Comment Specimen source: Blood Landon Calvert MD LAB BLOOD ORDERABLES Performing Organization Address City/State/ZIP Code Phon e Number APS SPECTRA [facility] documented in this encounter Visit Diagnoses Not on filedocumented in this encounter Care Teams Fuel Efficient Automobile Designer Relationship Specialty Start Date End Date Fabian Arias MD PCP - General Family Medicine 09/04/[address] [place] [address] documented as of this encounter
--- OUTSIDE RECORDS SUMMARY | 2022-05-06 02:01 | XMS_ITS | Encounter Summary ---
:1940 Author Organization [facility] Address [address] [place] [address] Care Team Providers Name Role Phone Fabian Arias MD Primary Care Provider Encounter Details Date Type Department Care Team Description 08/16/2021 Orders Only [facility] O f Landon Zarate MD [address] [place] [address] [place], [place] [phone] (Wo rk) Social History Tobacco Use [...] / Volume Laterality 08/16/2021 08/17/2021 6:02 PM DIAMOND BROKER Narrative APS SPECTRA [facility] - 08/17/2021 Unless otherwise specified, test(s) performed at: [facility], [address] [place] [address] WEIGHT REDUCTION SPECIALIST: Carl Paula, M.D. For any questions, please call customer service at FREQUENCY:OTHER Resulting Agency Comment Specimen source: Blood Landon Calvert MD LAB BLOOD ORDERABLES Performing Organization Address City/State/ZIP Code Phon e Number APS SPECTRA [facility] documented in this encounter Visit Diagnoses Not on filedocumented in this encounter Care Teams Demolition Specialist Relationship Specialty Start Date End Date Fabian Arias MD PCP - General Family Medicine 09/04/[address] [place] [address] documented as of this encounter
--- OUTSIDE RECORDS SUMMARY | 2022-05-06 02:01 | XMS_ITS | Encounter Summary ---
:1940 Author Organization [facility] Address [address] [place] [address] Care Team Providers Name Role Phone Fabian Arias MD Primary Care Provider Encounter Details Date Type Department Care Team Description 01/17/2022 Orders Only [facility] O f Landon Zarate MD [address] [place] [address] [place], [place] [phone] (Wo rk) Social History Tobacco Use [...] 01/18/2022 Unless otherwise specified, test(s) performed at: [facility], [address] [place] [address], [place] [address] HAND REAMER: Vicente Flores M.D., Ph.D For any questions, please call customer service at FREQUENCY:OTHER Resulting Agency Comment Specimen source: Blood Landon Calvert MD LAB BLOOD ORDERABLES Performing Organization Address City/State/ZIP Code Phon e Number APS SPECTRA [facility] documented in this encounter Visit Diagnoses Not on filedocumented in this encounter Care Teams Warehouse Handler Relationship Specialty Start Date End Date Fabian Arias MD PCP - General Family Medicine 09/04/[address] [place] [address] documented as of this encounter
--- OUTSIDE RECORDS SUMMARY | 2022-05-06 02:01 | XMS_ITS | Encounter Summary ---
:1940 Author Organization [facility] Address [address] [place] [address] Care Team Providers Name Role Phone Fabian Arias MD Primary Care Provider Encounter Details Date Type Department Care Team Description 12/06/2021 Treatment [facility] O f Landon Zarate MD [address] [place] [address] [place], [place] [phone] (Wo rk) Social History Tobacco Use Types Packs/Day Years Used Date Smoking Tobacco: Smoker, Current Cigarettes Started: 07/01/1976 Status Unknown Sex Assigned at Date Recorded Not on file documented as of this encounter Miscellaneous Notes Dialysis Note - Landon Calvert MD - 12/06/2021 10:03 AM CDT Date: Dec 06, 2021 Patient Name: Zamzam Garibay : 1940 Chart #: [id number] Sex: F This patient was personally seen [...] AM ) BP (sit): 175/83 AP(-) / TRANSPORT DRIVER: 234/72 Pulse: 70 Chairside data as of [...] 125 mg IV Every Treatment 12/06/2021 01/03/2022 CLASP MACHINE OPERATOR: Landon Calvert MD LOCATION: [phone] SCHEDULE: -- 2nd Shift EDW: kg. DIALYZER: [...] daughter and grandchild up in the [facility]. No symptoms of fluid [...] She has access appt on 10/03 at [facility]. No concerns today. 09/06/21: She [...] This is Jaz's first day back from [facility] isolation unit. She says she had no symptoms, but her son tested her when she was fatigued and had fever. She reports now having no symptoms at all. She says she feels great. Fluid gains have been better. Only complaint is acid reflux with once weekly vomiting up acid in her mouth and she says she used to be on acid tappet adjuster but [place] ([place] it being [place] her med list [...] in the hospital overnight last month at [facility], SOB resolved with fluid removal. Can't remove [...] HD. 04/26/21: She was hospitalized briefly at [facility] for dyspnea, no pneumonia but rather related to CHF. She saw cardiology in follow-up in clinic, lisinopril and metoprolol and lasix with UF on HD to dry weight recommended. She is not interested in home dialysis, discussed today. 04/12/21: Patient new to me. She followed with laser/electro optics technician in [facility], did not follow-up,crashed into dialysis in [...] mouth once a day 04/12/2021 RenaPlex-D (vit b,s-ui-ykcf-selen-vit d3-e) 800 mcg-12.5 mg-2,000 unit tablet Take [...] how it feels. Will send back to [facility] for re-evaluation and I will discuss with surgeon there 11/01/21: I will call [facility] for update on whether they have received report from her AVF surgery and plan moving forward for access revision/creation [facility] September 2021, need report [facility] appt 08/2021: LUE AVF lower arm placed in [place], fistulagram / stenosis of vein proximal not [...] above goal. Intact PTH is at goal. White Washer Piler will adjust binders and vitamin D per [...] Resuscitation Status Stable dialysis Send back to [facility] Work on fluid gains <2L, may need [...] on filedocumented in this encounter Care Teams Crayon Painter Relationship Specialty Start Date End Date Fabian Arias MD PCP - General Family Medicine 09/04/[address] [place] [address] documented as of this encounter
--- OUTSIDE RECORDS SUMMARY | 2022-05-06 02:01 | XMS_ITS | Encounter Summary ---
:1940 Author Organization [facility] Address [address] [place] [address] Care Team Providers Name Role Phone Fabian Arias MD Primary Care Provider Encounter Details Date Type Department Care Team Description 10/11/2021 Treatment [facility] f Landon Zarate MD [address] [place] [address] [place], [place] [phone] (Wo rk) Social History Tobacco Use Types Packs/Day Years Used Date Smoking Tobacco: Smoker, Current Cigarettes Started: 07/01/1976 Status Unknown Sex Assigned at Date Recorded Not on file documented as of this encounter Miscellaneous Notes Dialysis Note - Landon Calvert MD - 10/11/2021 10:59 AM CDT Date: Oct 11, 2021 Patient Name: Zamzam Garibay : 1940 Chart #: [id number] Sex: F This patient was personally seen [...] AM ) BP (sit): 156/88 AP(-) / BINDER SORTER: 180/129 Pulse: 79 Chairside data as of [...] 1.0 mcg ORAL Every Treatment 06/05/2021 06/04/2022 HAND EDGER: Landon Calvert MD LOCATION: [phone] SCHEDULE: -- 2nd Shift EDW: kg. DIALYZER: HD DURATION: NEEDLE SIZE: ANTICOAG: BATH: QB: ml/min QD: ml/min Subjective Tolerating dialysis well. 10/11/21: Tolerating dialysis. Still has catheter, needs follow-up with vascular. Labs reviewed, stable. 09/20/21: She is doing well, Fluid gains improved, no SOB or edema. She has access appt on 10/03 at [facility]. No concerns today. 09/06/21: She is 9 [...] This is Jaz's first day back from [facility]. She says she had no symptoms, but her son tested her when she was fatigued and had fever. She reports now having no symptoms at all. She says she feels great. Fluid gains have been better. 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 Can't [...] HD. 04/26/21: She was hospitalized briefly at [facility] for dyspnea, no pneumonia but rather related to CHF. She saw cardiology in follow-up in clinic, lisinopril and metoprolol and lasix with UF on HD to dry weight recommended. She is not interested in home dialysis, discussed today. 04/12/21: Patient new to me. She followed with search engine marketing manager in [facility], did not follow-up,crashed into [...] mouth once a day 04/12/2021 RenaPlex-D (vit b,n-bz-tjro-selen-vit d3-e) 800 mcg-12.5 mg-2,000 unit tablet Take 1 tablet by mouthonce a day trazodone 50 mg tablet Take 1 tablet by mouth every night as needed 04/12/2021 Allergy List Allergen Reaction Reaction [facility] Medications reviewed and no [...] Assessment Type of access: Catheterand LUE AVF [facility] appt 08/2021: LUE AVF lower arm placed [...] above goal. Intact PTH is at goal. Tearoom Hostess will adjust binders and vitamin D per [...] on filedocumented in this encounter Care Teams Forming Department Supervisor Relationship Specialty Start Date End Date Fabian Arias MD PCP - General Family Medicine 09/04/[address] [place] [address] documented as of this encounter
--- OUTSIDE RECORDS SUMMARY | 2022-05-06 02:01 | XMS_ITS | Encounter Summary ---
:1940 Author Organization [facility] Address [address] [place] [address] Care Team Providers Name Role Phone Fabian Arias MD Primary Care Provider Encounter Details Date Type Department Care Team Description 09/06/2021 Treatment [facility] f Landon Zarate MD [address] [place] [address] [place], [place] [phone] (Wo rk) Social History Tobacco Use Types Packs/Day Years Used Date Smoking Tobacco: Smoker, Current Cigarettes Started: 07/01/1976 Status Unknown Sex Assigned at Date Recorded Not on file documented as of this encounter Miscellaneous Notes Dialysis Note - Landon Calvert MD - 09/06/2021 10:07 AM CST Date: Sep 06, 2021 Patient Name: Zamzam Garibay : 1940 Chart #: [id number] Sex: F This patient was personally seen [...] AM ) BP (sit): 162/85 AP(-) / BIODIESEL PRODUCTION ASSOCIATE: 181/122 Pulse: 86 Chairside data as of [...] 03:30 Actual Treatment Time 03:30 03:31 03:33 INVOICE CLERK: Landon Calvert MD LOCATION: [place] [phone] SCHEDULE: -W- 2nd Shift EDW: kg. DIALYZER: [...] Jaz's first day back from [facility] unit. She says she had no symptoms, but her son tested her when she was fatigued and had fever. She reports now having no symptoms at all. She says she feels great. Fluid gains have been better. Only complaint is acid reflux with once weekly vomiting up acid in her mouth and she says she used to be on acid crm functional analyst but she hasn't had it sincebeing [...] in the hospital overnight last month at [place], SOB resolved with fluid removal. Can't remove [...] HD. 04/26/21: She was hospitalized briefly at [place] for dyspnea, no pneumonia but rather related to CHF. She saw cardiology in follow-up in clinic, lisinopril and metoprolol and lasix with UF on HD to dry weight recommended. She is not interested in home dialysis, discussed today. 04/12/21: Patient new to me. She followed with x ray physician in [facility], did not follow-up,crashed into [...] mouth once a day 04/12/2021 RenaPlex-D (vit b,x-or-iuaw-selen-vit d3-e) 800 mcg-12.5 mg-2,000 unit tablet Take [...] Assessment Type of access: Catheterand LUE AVF [facility] [place]: LUE AVF lower arm placed in [place], fistulagram / stenosis of vein proximal not [...] above goal. Intact PTH is at goal. Manager Community Outreach will adjust binders and vitamin D per [...] to binders, needs ongoing counseling with RD [facility] [place] and surgeon consult as above Landon Calvert MD [ Signed And locked electronically On 09/06/2021 at 10:12:20 AM ] Transcribed: Landon Calvert ( 09/06/2021 ) documented in this encounter Plan of Treatment Not on filedocumented as of this encounter Visit Diagnoses Not on filedocumented in this encounter Care Teams Recreation Worker Relationship Specialty Start Date End Date Fabian Arias MD PCP - General Family Medicine 09/04/[address] [place] [phone] documented as of this encounter
--- OUTSIDE RECORDS SUMMARY | 2022-05-06 02:01 | XMS_ITS | Encounter Summary ---
:1940 Author Organization [facility] Address [address] [place] [address] Care Team Providers Name Role Phone Fabian Arias MD Primary Care Provider Encounter Details Date Type Department Care Team Description 11/22/2021 Treatment [facility] f Landon Zarate MD [address] [place] [address] [place], [place] [phone] (Wo rk) Social History Tobacco Use Types Packs/Day Years Used Date Smoking Tobacco: Smoker, Current Cigarettes Started: 07/01/1976 Status Unknown Sex Assigned at Date Recorded Not on file documented as of this encounter Miscellaneous Notes Dialysis Note - Landon Calvert MD - 11/22/2021 10:13 AM CDT Date: November 22, 2021 Patient Name: Zamzam Garibay : 1940 Chart #: [id number] Sex: F This patient was personally seen [...] AM ) BP (sit): n/a AP(-) / LEAD DATA ARCHITECT: 10 Pulse: n/a Chairside data as of [...] mcg IVP Every 2 weeks 11/22/2021 11/21/2022 EPIC DIRECTOR: Landon Calvert MD LOCATION: [facility] [phone] SCHEDULE: -- 2nd Shift ACCESS: EDW: kg. DIALYZER: HD DURATION: NEEDLE SIZE: ANTICOAG: BATH: QB: ml/min QD: ml/min Subjective Tolerating dialysis well. 11/22: Doing well, but fluid gains still high at times. She is getting out more, seeing her daughter and grandchild up in the [facility]. No symptoms of fluid overload, denies [...] [place] [facility] [place] No [...] is Jaz's first day back from [facility]. She says she had no symptoms, but her son tested her when she was fatigued and had fever. She reports now having no symptoms at all. She says she feels great. Fluid gains have been better. Only complaint is acid reflux with once weekly vomiting up acid in her mouth and she says she used to be on acid wildlife science professor but she hasn't had it sincebeing in [...] in the hospital overnight last month at [place], SOB resolved with fluid removal. Can't remove [...] HD. 04/26/21: She was hospitalized briefly at [place] for dyspnea, no pneumonia but rather related to CHF. She saw cardiology in follow-up in clinic, lisinopril and metoprolol and lasix with UF on HD to dry weight recommended. She is not interested in home dialysis, discussed today. 04/12/21: Patient new to me. She followed with room cleaner in [facility], did not follow-up,crashed into dialysis in [...] mouth once a day 04/12/2021 RenaPlex-D (vit b,i-pj-teni-selen-vit d3-e) 800 mcg-12.5 mg-2,000 unit tablet Take [...] AVF 11/01/21: I will call [facility] [place] whether they have received report from her AVF surgery and plan moving forward for access revision/creation [facility] [place], need report [facility] [place] 08/2021: LUE AVF lower arm placed in [place], fistulagram / stenosis of vein proximal not [...] on filedocumented in this encounter Care Teams Control System Computer Scientist Relationship Specialty Start Date End Date Fabian Arias MD PCP - General Family Medicine 09/04/20 [address] [place] [address] documented as of this encounter
--- OUTSIDE RECORDS SUMMARY | 2022-05-06 02:01 | XMS_ITS | Encounter Summary ---
:1940 Author Organization [facility] Address [address] [place] [address] Care Team Providers Name Role Phone Fabian Arias MD Primary Care Provider Encounter Details Date Type Department Care Team Description 10/04/2021 Orders Only [facility] f Landon Zarate MD [address] [place] [address] [place], [place] [phone] (Wo rk) Social History Tobacco Use [...] 10/09/2021 Unless otherwise specified, test(s) performed at: [facility], [address] [place], [place] [id number] FRONT SERVICES AGENT: Carl Paula M.D. For any questions, please call customer service at FREQUENCY:MONTHLY Resulting Agency Comment Specimen source: Plasma Landon Calvert MD LAB BLOOD ORDERABLES Performing Organization Address City/[facility]/ZIP Code Phon e Number APS [...] 10/09/2021 Unless otherwise specified, test(s) performed at: [facility], [address] [place] [address] FRONT SERVICES AGENT: Carl Paula M.D. For any questions, [...] 10/09/2021 Unless otherwise specified, test(s) performed at: [facility], [address] [place] [address] FRONT SERVICES AGENT: Carl Paula M.D. For any questions, [...] for the general public, refer to MMWR [facility] 2004/Vol.54 (No. 16); 1-23, and [...] above test result was obtained using Siemens Gateway 3Daur XP chemiluminescent method. Results obtaine d with [...] APS SPECTRA [facility] (ABNORMAL) Spectrae Chemistry (10/04/2021) [facility] Method Time Signature Ferritin 39 10 [...] 10/09/2021 Unless otherwise specified, test(s) performed at: [facility], [address] [place] [address] FRONT SERVICES AGENT: Carl Paula M.D. For any questions, please call customer service at FREQUENCY:MONTHLY Resulting Agency Comment Specimen source: Serum Landon Calvert MD LAB BLOOD ORDERABLES Performing Organization Address City/[facility] Code Phon e Number APS SPECTRA [facility] (ABNORMAL) Spectrae Chemistry (10/04/2021) P athologist Signature PTH 232 (H) 16 - 80 APS SPECTRA pg/mL [facility] Specimen (Source) Anatomical Collection Method Collection Time Re ceived Time Location / / Volume Laterality 10/04/2021 10/09/2021 10:1 0 AM CDT Narrative APS SPECTRA [facility] - 10/09/2021 Unless otherwise specified, test(s) performed at: [facility], [address] [place] [address] FRONT SERVICES AGENT: Carl Paula M.D. For any questions, please call customer service at FREQUENCY:MONTHLY Resulting Agency Comment Specimen source: Plasma Landon Calvert MD LAB BLOOD ORDERABLES Performing Organization Address City/State/ZIP Code Phon e Number APS SPECTRA [facility] documented in this encounter Visit Diagnoses Not on filedocumented in this encounter Care Teams Vineyardist Relationship Specialty Start Date End Date Fabian Arias MD PCP - General Family Medicine 09/04/[address] [place] [address] documented as of this encounter
--- OUTSIDE RECORDS SUMMARY | 2022-05-06 02:01 | XMS_ITS | Encounter Summary ---
:1940 Author Organization [facility] Address [address] [place] [address] Care Team Providers Name Role Phone Fabian Arias MD Primary Care Provider Encounter Details Date Type Department Care Team Description 09/13/2021 Orders [facility] f Landon Zarate MD [address] [place] [address] [place], [place] [phone] (Wo rk) Social History Tobacco Use Types Packs/Day Years Used Date Smoking Tobacco: Smoker, Current Cigarettes Started: 07/01/1976 Status Unknown Sex Assigned at Date Recorded Not on file documented as of this encounter Plan of Treatment Not on filedocumented as of this encounter Procedures Procedure Name Priority Date/Time Associated Diagnosis Comme nts HEMATOLOGY Routine 09/13/2021 Results for thi s procedure are in the resu lts section. documented in this encounter Results (ABNORMAL) HEMATOLOGY (09/13/2021) Analysis Performed At Patho logist Time Signature Hemoglobin 9.6 (L) 12.0 - APS SPECTRA 16.0 g/dL [facility] Hemoglobin x 3 28.8 (L) 36.0 - APS SPECTRA 48.0 % [facility] Specimen (Source) Anatomical Collection Method Collection Time Re ceived Time Location / / Volume Laterality 09/13/2021 09/14/2021 9:32 AM CDT Narrative APS SPECTRA [facility] - 09/14/2021 Unless otherwise specified, test(s) performed at: [facility], [address] [place] [address] BRAZER RESISTANCE: Carl Paula M.D. For any questions, please call customer service at FREQUENCY:OTHER Resulting Agency Comment Specimen source: Blood Landon Calvert MD LAB BLOOD ORDERABLES Performing Organization Address City/State/ZIP Code Phon e Number APS SPECTRA [facility] documented in this encounter Visit Diagnoses Not on filedocumented in this encounter Care Teams Site Identification Specialist Relationship Specialty Start Date End Date Fabian Arias MD PCP - General Family Medicine 09/04/[address] [place] [address] documented as of this encounter
--- OUTSIDE RECORDS SUMMARY | 2022-05-06 02:01 | XMS_ITS | Encounter Summary ---
:1940 Author Organization [facility] Address [address] [place] [address] Care Team Providers Name Role Phone Fabian Arias MD Primary Care Provider Encounter Details Date Type Department Care Team Description 11/01/2021 Treatment [facility] f Landon Zarate MD [address] [place] [address] [place], [place] [phone] (Wo rk) Social History Tobacco Use Types Packs/Day Years Used Date Smoking Tobacco: Smoker, Current Cigarettes Started: 07/01/1976 Status Unknown Sex Assigned at Date Recorded Not on file documented as of this encounter Miscellaneous Notes Dialysis Note - Landon Calvert MD - 11/01/2021 8:57 AM CDT Date: November 01, 2021 Patient Name: Zamzam Garibay : 1940 Chart #: [id number] Sex: F This patient was personally seen [...] AM ) BP (sit): 150/67 AP(-) / RAIL OPERATIONS CONTROLLER: n/a Pulse: 79 Chairside data as of [...] 1.0 mcg ORAL Every Treatment 06/05/2021 06/04/2022 FUR REMODELER: Landon Calvert MD LOCATION: [phone] SCHEDULE: - 2nd Shift EDW: kg. DIALYZER: [...] She has access appt on [place]03 [place] [facility]. No concerns today. 09/06/21: She is 9 [...] is Jaz's first day back from [facility]. She says she had no symptoms, but her son tested her when she was fatigued and had fever. She reports now having no symptoms at all. She says she feels great. Fluid gains have been better. Only complaint is acid reflux with once weekly vomiting up acid in her mouth and she says she used to be on acid secretary specialist but she hasn't had it sincebeing in [place] (despite it being on her med list [...] in the hospital overnight last month at [place], SOB resolved with fluid removal. Can't remove [...] HD. 04/26/21: She was hospitalized briefly at [place] for dyspnea, no pneumonia but rather related to CHF. She saw cardiology in follow-up in clinic, lisinopril and metoprolol and lasix with UF on HD to dry weight recommended. She is not interested in home dialysis, discussed today. 04/12/21: Patient new to me. She followed with outreach coordinator in [facility], did not follow-up,crashed into dialysis in [...] mouth once a day 04/12/2021 RenaPlex-D (vit b,r-dg-pwqp-selen-vit d3-e) 800 mcg-12.5 mg-2,000 unit tablet Take [...] Catheterand LUE AVF 11/01/21: I will call [facility] [place] on whether they have received report from her AVF surgery and plan moving forward for access revision/creation [facility] [place], need report [facility] appt 08/2021: LUE AVF lower arm placed [...] above goal. Intact PTH is at goal. Corporate Treasurer will adjust binders and vitamin D per [...] filedocumented in this encounter Care Teams Director Data Architecture Relationship Specialty Start Date End Date Fabain Arias MD PCP - General Family Medicine 09/04/[address] [place] [address] documented as of this encounter
--- OUTSIDE RECORDS SUMMARY | 2022-05-06 02:01 | XMS_ITS | Encounter Summary ---
:1940 Author Organization [facility] Address [address] [place] [address] Care Team Providers Name Role Phone Fabian Arias MD Primary Care Provider Encounter Details Date Type Department Care Team Description 08/23/2021 Orders Only [facility] O f Landon Zarate MD [address] [place] [address] [place], [place] [phone] (Wo rk) Social History Tobacco Use [...] / Volume Laterality 08/23/2021 08/24/2021 1:25 PM WHEEL OF FORTUNE DEALER Narrative APS SPECTRA [facility] - 08/24/2021 Unless otherwise specified, test(s) performed at: [facility], [address] [place] [address] CONVEYOR MAINTENANCE MECHANIC: Carl Paula, M.D. For any questions, please call customer service at FREQUENCY:OTHER Resulting Agency Comment Specimen source: Blood Landon Calvert MD LAB BLOOD ORDERABLES Performing Organization Address City/State/ZIP Code Phon e Number APS SPECTRA [facility] documented in this encounter Visit Diagnoses Not on filedocumented in this encounter Care Teams Infectious Disease Physician Relationship Specialty Start Date End Date Fabian Arias MD PCP - General Family Medicine 09/04/[address] [place] [address] documented as of this encounter
--- OUTSIDE RECORDS SUMMARY | 2022-05-06 02:01 | XMS_ITS | Encounter Summary ---
:1940 Author Organization [facility] Address [address] [place] [address] Care Team Providers Name Role Phone Fabian Arias MD Primary Care Provider Encounter Details Date Type Department Care Team Description 2021 Orders [facility] O f Landon Zarate MD [address] [place] [address] [place], [place] [phone] (Wo rk) Social History Tobacco Use [...] 12/28/2021 Unless otherwise specified, test(s) performed at: [facility], [address] [place] [address] PELT GRADER: Carl Paula M.D. For any questions, please call customer service at FREQUENCY:OTHER Resulting Agency Comment Specimen source: Blood Landon Calvert MD LAB BLOOD ORDERABLES Performing Organization Address City/State/ZIP Code Phon e Number APS SPECTRA [facility] documented in this encounter Visit Diagnoses Not on filedocumented in this encounter Care Teams Rolling Machine Operator Relationship Specialty Start Date End Date Fabian Arias MD PCP - General Family Medicine 09/04/[address] [place] [address] documented as of this encounter
--- OUTSIDE RECORDS SUMMARY | 2022-05-06 02:01 | XMS_ITS | Encounter Summary ---
:1940 Author Organization [facility] Address [address] [place] [address] Care Team Providers Name Role Phone Fabian Arias MD Primary Care Provider Encounter Details Date Type Department Care Team Description 12/13/2021 Orders [facility] O f Landon Zarate MD [address] [place] [address] [place], [place] [phone] (Wo rk) Social History Tobacco Use [...] 12/14/2021 Unless otherwise specified, test(s) performed at: [facility], [address] [place] [address] PATIENT SAFETY TECH: Carl Paula M.D. For any questions, please call customer service at FREQUENCY:OTHER Resulting Agency Comment Specimen source: Blood Landon Calvert MD LAB BLOOD ORDERABLES Performing Organization Address City/State/ZIP Code Phon e Number APS SPECTRA [facility] documented in this encounter Visit Diagnoses Not on filedocumented in this encounter Care Teams Artist Color Separation Relationship Specialty Start Date End Date Fabian Arias MD PCP - General Family Medicine 09/04/[address] [place] [address] documented as of this encounter
--- OUTSIDE RECORDS SUMMARY | 2022-05-06 02:01 | XMS_ITS | Encounter Summary ---
:1940 Author Organization [facility] Address [address] [place] [address] Care Team Providers Name Role Phone Fabian Arias MD Primary Care Provider Encounter Details Date Type Department Care Team Description 11/01/2021 Orders [facility] O f Landon Zarate MD [address] [place] [address] [place], [place] [phone] (Wo rk) Social History Tobacco Use [...] Organization Address City/[facility]/ZIP Code Phon e Number APS SPECTRA [facility] POST CHEMISTRY (11/01/2021) athologist Signature BUN Post 11 6 - 19 APS SPECTRA Dialysis mg/dL [facility] Specimen (Source) Anatomical Collection Method Collection Time Re ceived Time Location / / Volume Laterality 11/01/2021 11/02/2021 11:2 2 PM CDT Narrative APS SPECTRA [facility] - 11/03/2021 Unless otherwise specified, test(s) performed at: [facility], [address] [place] [address] GEAR REPAIR SUPERVISOR: Carl Paula M.D. For any questions, [...] 11/02/2021 Unless otherwise specified, test(s) performed at: [facility], [address] [place] [address] GEAR REPAIR SUPERVISOR: Carl Paula M.D. For any questions, [...] 11/02/2021 Unless otherwise specified, test(s) performed at: [facility], [address] [place] [address] GEAR REPAIR SUPERVISOR: Carl Paula M.D. For any questions, please call customer service at FREQUENCY:MONTHLY Resulting Agency Comment Specimen source: Blood Landon Calvert MD LAB BLOOD ORDERABLES Performing Organization Address City/State/ZIP Code Phon e Number APS SPECTRA [facility] (ABNORMAL) Spectrae Chemistry (11/01/2021) [facility] gist Method Time Signature BUN 64 [...] 11/02/2021 Unless otherwise specified, test(s) performed at: [facility], [address] [place] [address] GEAR REPAIR SUPERVISOR: Carl Paula M.D. For any questions, please call customer service at FREQUENCY:MONTHLY Resulting Agency Comment Specimen source: Serum Landon Calvert MD LAB BLOOD ORDERABLES Performing Organization Address City/State/ZIP Code Phon e Number APS SPECTRA [facility] documented in this encounter Visit Diagnoses Not on filedocumented in this encounter Care Teams Optomechanical Engineer Relationship Specialty Start Date End Date Fabian Arias MD PCP - General Family Medicine 09/04/[address] [place] [address] documented as of this encounter
--- OUTSIDE RECORDS SUMMARY | 2022-05-06 02:01 | XMS_ITS | Encounter Summary ---
:1940 Author Organization [facility] Address [address] [place] [address] Care Team Providers Name Role Phone Fabian Arias MD Primary Care Provider Encounter Details Date Type Department Care Team Description 09/20/2021 Orders [facility] O f Landon Zarate MD [address] [place] [address] [place], [place] [phone] (Wo rk) Social History Tobacco Use [...] 09/21/2021 Unless otherwise specified, test(s) performed at: [facility], [address] [place] [address] DIRECTOR OF CONTRACTS: Carl Paula M.D. For any questions, please call customer service at FREQUENCY:OTHER Resulting Agency Comment Specimen source: Blood Landon Calvert MD LAB BLOOD ORDERABLES Performing Organization Address City/State/ZIP Code Phon e Number APS SPECTRA [facility] documented in this encounter Visit Diagnoses Not on filedocumented in this encounter Care Teams Diet Clerk Relationship Specialty Start Date End Date Fabian Arias MD PCP - General Family Medicine 09/04/[address] [place] [address] documented as of this encounter
--- OUTSIDE RECORDS SUMMARY | 2022-05-06 02:01 | XMS_ITS | Encounter Summary ---
:1940 Author Organization [facility] Address [address] [place] [address] Care Team Providers Name Role Phone Fabian Arias MD Primary Care Provider Encounter Details Date Type Department Care Team Description 08/30/2021 [facility] f Landon Zarate MD [address] [place] [address] [place], [place] [phone] (Wo rk) Social History Tobacco Use [...] / Volume Laterality 08/30/2021 08/31/2021 2:10 PM GEOLOGY ASSOCIATE Narrative [facility] - 09/01/2021 Unless otherwise specified, test(s) performed at: [facility], [address] [place] [address] PLATER BARREL: Carl Paula M.D. For any questions, please [...] Volume Laterality 08/30/2021 08/31/2021 10:5 1 AM GEOLOGY ASSOCIATE Narrative [facility] - 09/01/2021 Unless otherwise specified, test(s) performed at: [facility], [address] [place] [address] PLATER BARREL: Carl Paula M.D. For any questions, please [...] Volume Laterality 08/30/2021 08/31/2021 10:5 1 AM GEOLOGY ASSOCIATE Narrative [facility] - 09/01/2021 Unless otherwise specified, test(s) performed at: [facility], [address] [place] [address] PLATER BARREL: Carl aPula M.D. For any questions, please call customer service at FREQUENCY:MONTHLY Resulting Agency Comment Specimen source: Serum Landon Calvert MD LAB BLOOD ORDERABLES Performing Organization Address City/[facility] Code Phon e Number [facility] POST CHEMISTRY (08/30/2021) P athologist Signature BUN Post 10 6 - 19 [facility] Dialysis mg/dL [facility] Specimen (Source) Anatomical Collection Method Collection Time Re ceived Time Location / / Volume Laterality 08/30/2021 08/31/2021 2:06 PM GEOLOGY ASSOCIATE Narrative [facility] - 08/31/2021 Unless otherwise specified, test(s) performed at: [facility], [address] [place] [address] PLATER BARREL: Carl Paula M.D. For any questions, please [...] / Volume Laterality 08/30/2021 08/31/2021 2:20 PM GEOLOGY ASSOCIATE Narrative [facility] - 08/31/2021 Unless otherwise specified, test(s) performed at: [facility], [address] [place] [address] PLATER BARREL: Carl Paula M.D. For any questions, please call customer service at FREQUENCY:MONTHLY Resulting Agency Comment Specimen source: Blood Landon Calvert MD LAB BLOOD ORDERABLES Performing Organization Address City/State/ZIP Code Phon e Number [facility] documented in this encounter Visit Diagnoses Not on filedocumented in this encounter Care Teams Commercial Helicopter Pilot Relationship Specialty Start Date End Date Fabian Arias MD PCP - General Family Medicine 09/04/[address] [place] [address] documented as of this encounter
--- OUTSIDE RECORDS SUMMARY | 2022-05-06 02:01 | XMS_ITS | Encounter Summary ---
:1940 Author Organization [facility] Address [address] [place] [address] Care Team Providers Name Role Phone Fabian Arias MD Primary Care Provider Encounter Details Date Type Department Care Team Description 10/25/2021 Orders Only [facility] f Landon Zarate MD [address] [place] [address] [place], [place] [phone] (Wo rk) Social History Tobacco Use [...] 10/26/2021 Unless otherwise specified, test(s) performed at: [facility], [address] [place] [address] DIESEL ENGINE II PIPE FITTER: Carl Paula M.D. For any questions, please call customer service at FREQUENCY:OTHER Resulting Agency Comment Specimen source: Blood Landon Calvert MD LAB BLOOD ORDERABLES Performing Organization Address City/State/ZIP Code Phon e Number [facility] documented in this encounter Visit Diagnoses Not on filedocumented in this encounter Care Teams Mold Mechanic Relationship Specialty Start Date End Date Fabian Arias MD PCP - General Family Medicine 09/04/[address] [place] [address] documented as of this encounter
--- OUTSIDE RECORDS SUMMARY | 2022-05-06 02:01 | XMS_ITS | Encounter Summary ---
:1940 Author Organization [facility] Address [address] [place] [address] Care Team Providers Name Role Phone Fabian Arias MD Primary Care Provider Encounter Details Date Type Department Care Team Description 08/09/2021 Orders Only [facility] f Landon Zarate MD [address] [place] [address] [place], [place] [phone] (Wo rk) Social History Tobacco Use [...] Volume Laterality 08/09/2021 08/10/2021 12:4 7 PM HEALTHCARE FINANCIAL ANALYST Narrative [facility] - 08/10/2021 Unless otherwise specified, test(s) performed at: [facility], [address] [place] [address] PLATER HOT DIP: Carl Paula M.D. For any questions, please call customer service at FREQUENCY:OTHER Resulting Agency Comment Specimen source: Blood Landon Calvert MD LAB BLOOD ORDERABLES Performing Organization Address City/State/ZIP Code Phon e Number [facility] documented in this encounter Visit Diagnoses Not on filedocumented in this encounter Care Teams Radiology Ct Technologist Relationship Specialty Start Date End Date Fabian Arias MD PCP - General Family Medicine 09/04/[address] [place] [address] documented as of this encounter
--- OUTSIDE RECORDS SUMMARY | 2022-05-06 02:02 | XMS_ITS | Encounter Summary ---
:1940 Author Organization [facility] Address [address] [place] [address] Care Team Providers Name Role Phone Fabian Arias MD Primary Care Provider Encounter Details Date Type Department Care Team Description 06/21/2021 Orders Only [facility] O f Landon Zarate MD [address] [place] [address] [place], [place] [phone] (Wo rk) Social History Tobacco Use [...] Volume Laterality 06/21/2021 06/22/2021 10:2 9 AM MEDICARE CONTACT SPECIALIST Narrative [facility] - 06/22/2021 Unless otherwise specified, test(s) performed at: [facility], [address] [place] [address] ULTRASONIC WELDING MACHINE OPERATOR: Carl Paula M.D. For any questions, please call customer service at FREQUENCY:OTHER Resulting Agency Comment Specimen source: Blood Landon Calvert MD LAB BLOOD ORDERABLES Performing Organization Address City/State/ZIP Code Phon e Number [facility] documented in this encounter Visit Diagnoses Not on filedocumented in this encounter Care Teams Pediatric Intensive Physician Relationship Specialty Start Date End Date Fabian Arias MD PCP - General Family Medicine 09/04/[address] [place] [address] documented as of this encounter
--- OUTSIDE RECORDS SUMMARY | 2022-05-06 02:02 | XMS_ITS | Encounter Summary ---
:1940 Author Organization [facility] Address [address] [place] [address] Care Team Providers Name Role Phone Fabian Arias MD Primary Care Provider Encounter Details Date Type Department Care Team Description 07/19/2021 Orders Only [facility] O f Landon Zarate MD [address] [place] [address] [place], [place] [phone] (Wo rk) Social History Tobacco Use [...] Volume Laterality 07/19/2021 07/21/2021 11:4 0 AM WATER OPERATOR Narrative [facility] - 07/21/2021 Unless otherwise specified, test(s) performed at: [facility], [address] [place] [address] RESOURCE COORDINATOR: Carl Paula M.D. For any questions, please call customer service at FREQUENCY:OTHER Resulting Agency Comment Specimen source: Blood Landon Calvert MD LAB BLOOD ORDERABLES Performing Organization Address City/State/ZIP Code Phon e Number [facility] documented in this encounter Visit Diagnoses Not on filedocumented in this encounter Care Teams Cake Decorator Relationship Specialty Start Date End Date Fabian Arias MD PCP - General Family Medicine 09/04/[address] [place] [address] documented as of this encounter
--- OUTSIDE RECORDS SUMMARY | 2022-05-06 02:02 | XMS_ITS | Encounter Summary ---
:1940 Author Organization [facility] Address [address] [place] [address] Care Team Providers Name Role Phone Fabian Arias MD Primary Care Provider Encounter Details Date Type Department Care Team Description 06/14/2021 Orders Only [facility] O f Landon Zarate MD [address] [place] [address] [place], [place] [phone] (Wo rk) Social History Tobacco Use [...] / Volume Laterality 06/14/2021 06/15/2021 1:55 PM INSTRUMENT ASSEMBLER Narrative [facility] - 06/15/2021 Unless otherwise specified, test(s) performed at: [facility], [address] [place] [address] BAKED GOODS STOCK CLERK: Carl Paula M.D. For any questions, please call customer service at FREQUENCY:OTHER Resulting Agency Comment Specimen source: Blood Landon Calvert MD LAB BLOOD ORDERABLES Performing Organization Address City/State/ZIP Code Phon e Number [facility] documented in this encounter Visit Diagnoses Not on filedocumented in this encounter Care Teams Analysis Manager Relationship Specialty Start Date End Date Fabian Arias MD PCP - General Family Medicine 09/04/[address] [place] [address] documented as of this encounter
--- OUTSIDE RECORDS SUMMARY | 2022-05-06 02:02 | XMS_ITS | Encounter Summary ---
:1940 Author Organization [facility] Address [address] [place] [address] Care Team Providers Name Role Phone Fabian Arias MD Primary Care Provider Encounter Details Date Type Department Care Team Description 07/04/2021 Orders Only [facility] O f Landon Zarate MD [address] [place] [address] [place], [place] [phone] (Wo rk) Social History Tobacco Use [...] / Volume Laterality 07/04/2021 07/07/2021 1:15 PM BUCKLE WIRE INSERTER Narrative [facility] - 07/07/2021 Unless otherwise specified, test(s) performed at: [facility], [address] [place] [address] ASSOCIATE FIELD SERVICE ENGINEER: Carl Paula M.D. For any questions, please [...] the a ssay have been determined by [employer] and validation of the assay meets regulatory [...] learn more about this test, go to [email or web address] Performed by: PLACIDO Wong [id number], CLIA [id number], [address] [place] [address] Supervisor Burling And Joining: Anthony Keen, Ph D, FACMG, FFSC ([facility]) Performed by: JANNA Wong [id number], [address] ??[place] [address], Sp Gonzales MD First COVID-19 Test? UNKNOWN [...] / Volume Laterality 07/04/2021 07/06/2021 6:15 AM BUCKLE WIRE INSERTER Narrative [facility] - 07/06/2021 Unless otherwise specified, test(s) performed at: [facility], [address] [place] [address] , [place] [address] ASSOCIATE FIELD SERVICE ENGINEER: Darnell Nguyen M.D. For any questions, please call customer service at FREQUENCY:OTHER Resulting Agency Comment Specimen source: Swab/ANTERIOR NARES Landon Calvert MD LAB [id number]-[id number]-[id number] NSOLICITED RESULTS Performing Organization Address City/State/ZIP Code Phon e Number [facility] documented in this encounter Visit Diagnoses Not on filedocumented in this encounter Care Teams Vp Care Management Relationship Specialty Start Date End Date Fabian Arias MD PCP - General Family Medicine 09/04/[address] [place] [address] documented as of this encounter
--- OUTSIDE RECORDS SUMMARY | 2022-05-06 02:02 | XMS_ITS | Encounter Summary ---
:1940 Author Organization [facility] Address [address] [place] [address] Care Team Providers Name Role Phone Fabian Arias MD Primary Care Provider Encounter Details Date Type Department Care Team Description 06/27/2021 Orders Only [facility] O f Landon Zarate MD [address] [place] [address] [place], [place] [phone] (Wo rk) Social History Tobacco Use [...] encounter Results (ABNORMAL) SARS-CoV-2 by PCR (06/27/2021) [facility] Method Time Signature SARS CoV-2 [...] for the duration of time that the Staff Air Tactical Officer of the HHS decla res circumstances exist justifying the authorization of the christiano gency use of in vitro diagnostic tests for detection of SARS-CoV-2 virus and/or diagnosis of COVID-19 infection under section 564(b)(1) of the Act, 21 U.S.C. 360bbb-3(b)(1), unless the authorization is terminated o r revoked sooner. To learn more about this test, go to [email or web address] [email or web address] Performed by: PLACIDO Wong [id number], CLIA [id number], [address] [place] [address] Core Stacker: Anthony Keen, Ph D, [facility], FFSC ([facility]) Performed by: JANNA Wong [id number], [address] ??[place] [address], Sp Gonzales MD First COVID-19 Test? UNKNOWN [...] / Volume Laterality 06/27/2021 06/28/2021 7:27 PM COAL HAULER Narrative [facility]PS [facility] - 06/28/2021 Unless otherwise specified, test(s) performed at: [facility], [facility] [place] [address] [address] [address] LIVING MANAGER: Darnell Nguyen M.D. For any questions, please call customer service at FREQUENCY:OTHER Resulting Agency Comment Specimen source: Swab/ANTERIOR NARES Landon Calvert MD LAB [id number]-[id number] NSOLICITED RESULTS Performing Organization Address City/State/ZIP Code Phon e Number [facility] documented in this encounter Visit Diagnoses Not on filedocumented in this encounter Care Teams Food Checker Relationship Specialty Start Date End Date Fabian Arias MD PCP - General Family Medicine 09/04/[address] [place] [address] documented as of this encounter
--- OUTSIDE RECORDS SUMMARY | 2022-05-06 02:02 | XMS_ITS | Encounter Summary ---
:1940 Author Organization [facility] Address [address] [place] [address] Care Team Providers Name Role Phone Fabian Arias MD Primary Care Provider Encounter Details Date Type Department Care Team Description 06/14/2021 Treatment [facility] f Landon Zarate MD [address] [place] [address] [place], [place] [phone] (Wo rk) Social History Tobacco Use Types Packs/Day Years Used Date Smoking Tobacco: Never Assessed Sex Assigned at Date Recorded Not on file documented as of this encounter Miscellaneous Notes Dialysis Note - Landon Calvert MD - 06/14/2021 9:44 AM CST Date: Jun 14, 2021 Patient Name: Zamzam Garibay : 1940 Chart #: [id number] Sex: F This patient was personally seen [...] AM ) BP (sit): 113/60 AP(-) / IMPORT/EXPORT FREIGHT FORWARDER: 207/146 Pulse: 79 Chairside data as of [...] 1.0 mcg ORAL Every Treatment 06/05/2021 06/04/2022 MANAGER FUND: Landon Calvert MD LOCATION: [place] [phone] SCHEDULE: -W- 2nd Shift EDW: kg. DIALYZER: HD DURATION: NEEDLE SIZE: ANTICOAG: BATH: QB: ml/min QD: ml/min Subjective 06/14/21: She was in the hospital overnight last month at [facility], SOB resolved with fluid removal. Can't remove [...] HD. 04/26/21: She was hospitalized briefly at [facility] for dyspnea, no pneumonia but rather related to CHF. She saw cardiology in follow-up in clinic, lisinopril and metoprolol and lasix with UF on HD to dry weight recommended. She is not interested in home dialysis, discussed today. 04/12/21: Patient new to me. She followed with clinical quality assurance associate in [facility], did not follow-up,crashed into [...] mouth once a day 04/12/2021 RenaPlex-D (vit b,e-xs-udug-selen-vit d3-e) 800 mcg-12.5 mg-2,000 unit tablet Take [...] tributaries. Have had difficulty getting her into [facility], will send to [facility] for fistulagram and vascular consult Anemia Assessment [...] above goal. Intact PTH is at goal. Drafting Layout Worker will adjust binders and vitamin D per [...] treatments to avoid pulmonary edema Send to [facility] for fistulagram and vascular surgery consult Landon Calvert MD [ Signed And locked electronically On 06/14/2021 at 09:51:52 AM ] Transcribed: Landon Calvert ( 06/14/2021 ) documented in this encounter Plan of Treatment Not on filedocumented as of this encounter Visit Diagnoses Not on filedocumented in this encounter Care Teams Rotating Equipment Specialist Relationship Specialty Start Date End Date Fabian Arias MD PCP - General Family Medicine 09/04/[address] [place] [address] documented as of this encounter
--- OUTSIDE RECORDS SUMMARY | 2022-05-06 02:02 | XMS_ITS | Encounter Summary ---
:1940 Author Organization [facility] Address [address] [place] [address] Care Team Providers Name Role Phone Fabian Arias MD Primary Care Provider Encounter Details Date Type Department Care Team Description 07/05/2021 Treatment [facility] f Landon Zarate MD [address] [place] [address] [place], [place] [phone] (Wo rk) Social History Tobacco Use Types Packs/Day Years Used Date Smoking Tobacco: Never Assessed Sex Assigned at Date Recorded Not on file documented as of this encounter Miscellaneous Notes Dialysis Note - Landon Calvert MD - 07/05/2021 8:59 AM CST Date: Jul 05, 2021 Patient Name: Zamzam Garibay : 1940 Chart #: [id number] Sex: F This patient was personally seen [...] AM ) BP (sit): 121/62 AP(-) / ELECTRICAL APPLIANCE REPAIRER: 172/117 Pulse: 80 Chairside data as of [...] 1.0 mcg ORAL Every Treatment 06/05/2021 06/04/2022 VOYAGE MANAGEMENT SYSTEM OPERATOR: Landon Calvert MD LOCATION: [phone] SCHEDULE: -W- 2nd Shift EDW: kg. DIALYZER: HD DURATION: NEEDLE SIZE: ANTICOAG: BATH: QB: ml/min QD: ml/min Subjective 07/05/21: This is Jaz's first day back from [facility] unit. She says she had no symptoms, but her son tested her when she was fatigued and had fever. She reports now having no symptoms at all. She says she feels great. Fluid gains have been better. Only complaint is acid reflux with once weekly vomiting up acid in her mouth and she says she used to be on acid undercoat sprayer but she hasn't had it sincebeing in [...] in the hospital overnight last month at [facility], SOB resolved with fluid removal. Can't remove [...] HD. 04/26/21: She was hospitalized briefly at [facility] for dyspnea, no pneumonia but rather related to CHF. She saw cardiology in follow-up in clinic, lisinopril and metoprolol and lasix with UF on HD to dry weight recommended. She is not interested in home dialysis, discussed today. 04/12/21: Patient new to me. She followed with riprap placer in [facility], did not follow-up,crashed [...] mouth once a day 04/12/2021 RenaPlex-D (vit b,d-fs-jvgn-selen-vit d3-e) 800 mcg-12.5 mg-2,000 unit tablet Take [...] tributaries. Have had difficulty getting her into [facility], now has procedure scheduled at [facility] but delayed until August due to COVID [...] above goal. Intact PTH is at goal. Patient Care Assistant will adjust binders and vitamin D per [...] on filedocumented in this encounter Care Teams Bean Sprout Grower Relationship Specialty Start Date End Date Fabain Arias MD PCP - General Family Medicine 09/04/[address] [place] [address] documented as of this encounter
--- OUTSIDE RECORDS SUMMARY | 2022-05-06 02:02 | XMS_ITS | Encounter Summary ---
:1940 Author Organization [facility] Address [address] [place] [address] Care Team Providers Name Role Phone Fabian Arias MD Primary Care Provider Encounter Details Date Type Department Care Team Description 07/12/2021 Orders Only [facility] O f Landon Zarate MD [address] [place] [address] [place], [place] [phone] (Wo rk) Social History Tobacco Use [...] / Volume Laterality 07/12/2021 07/13/2021 7:43 PM GRAINING PRESS OPERATOR Narrative APS SPECTRA [facility] - 07/14/2021 Unless otherwise specified, test(s) performed at: [facility], [address] [place] [address] BRUSH MAKER MACHINE: Carl Paula M.D. For any questions, please call customer service at FREQUENCY:OTHER Resulting Agency Comment Specimen source: Blood Landon Calvert MD LAB BLOOD ORDERABLES Performing Organization Address City/State/ZIP Code Phon e Number [facility]PS S[facility]RA [facility] documented in this encounter Visit Diagnoses Not on filedocumented in this encounter Care Teams Sales Leader Relationship Specialty Start Date End Date Fabian Arias MD PCP - General Family Medicine 09/04/[address] [place] [address] documented as of this encounter
--- OUTSIDE RECORDS SUMMARY | 2022-05-06 02:02 | XMS_ITS | Encounter Summary ---
:1940 Author Organization [facility] Address [address] [place] [address] Care Team Providers Name Role Phone Fabian Arias MD Primary Care Provider Encounter Details Date Type Department Care Team Description 07/26/2021 Orders Only [facility] O f Landon Zarate MD [address] [place] [address] [place], [place] [phone] (Wo rk) Social History Tobacco Use [...] Volume Laterality 07/26/2021 07/27/2021 10:0 6 AM PREASSEMBLER PRINTED CIRCUIT BOARD Narrative APS SPECTRA [facility] - 07/27/2021 Unless otherwise specified, test(s) performed at: [facility], [address] [place] [address] FIRE PREVENTION INSPECTOR: Carl Paula M.D. For any questions, please call customer service at FREQUENCY:OTHER Resulting Agency Comment Specimen source: Blood Landon Calvert MD LAB BLOOD ORDERABLES Performing Organization Address City/State/ZIP Code Phon e Number [facility]PS S[facility]RA [facility] documented in this encounter Visit Diagnoses Not on filedocumented in this encounter Care Teams Library Technician Relationship Specialty Start Date End Date Fabian Arias MD PCP - General Family Medicine 09/04/[address] [place] [address] documented as of this encounter
--- OUTSIDE RECORDS SUMMARY | 2022-05-06 02:02 | XMS_ITS | Encounter Summary ---
:1940 Author Organization [facility] Address [address] [place] [address] Care Team Providers Name Role Phone Fabian Arias MD Primary Care Provider Encounter Details Date Type Department Care Team Description 08/02/2021 Orders Only [facility] f Landon Zarate MD [address] [place] [address] [place], [place] [phone] (Wo rk) Social History Tobacco Use [...] / Volume Laterality 08/02/2021 08/03/2021 3:01 PM SPEAR FISHER Narrative APS SPECTRA [facility] - 08/05/2021 Unless otherwise specified, test(s) performed at: [facility], [address] [place] [address] PAPER LATCHER: Carl Paula M.D. For any questions, please call customer service at FREQUENCY:MONTHLY Resulting Agency Comment Specimen source: Serum Landon Calvert MD LAB BLOOD ORDERABLES Performing Organization Address City/State/ZIP Code Phon e Number APS SPECTRA [facility] (ABNORMAL) Spectrae Chemistry (08/02/2021) [facility] Method Time Signature BUN 80 (H) 6 [...] / Volume Laterality 08/02/2021 08/03/2021 3:01 PM SPEAR FISHER Narrative APS SPECTRA [facility] - 08/03/2021 Unless otherwise specified, test(s) performed at: [facility], [address] [place] [address] PAPER LATCHER: Carl Paula M.D. For any questions, please [...] / Volume Laterality 08/02/2021 08/03/2021 1:58 PM SPEAR FISHER Narrative APS SPECTRA [facility] - 08/03/2021 Unless otherwise specified, test(s) performed at: [facility], [address] [place] [address] PAPER LATCHER: Carl Paula M.D. For any questions, please call customer service at FREQUENCY:MONTHLY Resulting Agency Comment Specimen source: Blood Landon Calvert MD LAB BLOOD ORDERABLES Performing Organization Address City/State/ZIP Code Phon e Number APS SPECTRA [facility] documented in this encounter Visit Diagnoses Not on filedocumented in this encounter Care Teams Sound Cutter Relationship Specialty Start Date End Date Fabian Arias MD PCP - General Family Medicine 09/04/[address] [place] [address] documented as of this encounter
--- OUTSIDE RECORDS SUMMARY | 2022-05-06 02:02 | XMS_ITS | Encounter Summary ---
:1940 Author Organization [facility] Address [address] [place] [address] Care Team Providers Name Role Phone Fabian Arias MD Primary Care Provider Encounter Details Date Type Department Care Team Description 06/07/2021 Orders Only [facility] O f Landon Zarate MD [address] [place] [address] [place], [place] [phone] (Wo rk) Social History Tobacco Use [...] Volume Laterality 06/07/2021 06/08/2021 10:0 1 AM FIELD MARKETING ASSOCIATE Narrative APS SPECTRA [facility] - 06/08/2021 Unless otherwise specified, test(s) performed at: [facility], [address] [place] [address] SPECIAL POLICE: Carl Paula M.D. For any questions, please call customer service at FREQUENCY:OTHER Resulting Agency Comment Specimen source: Blood Landon Calvert MD LAB BLOOD ORDERABLES Performing Organization Address City/State/ZIP Code Phon e Number APS SPECTRA [facility] documented in this encounter Visit Diagnoses Not on filedocumented in this encounter Care Teams Power Hammer Operator Relationship Specialty Start Date End Date Fabian Arias MD PCP - General Family Medicine 09/04/[address] [place] [address] documented as of this encounter
--- OUTSIDE RECORDS SUMMARY | 2022-05-06 02:02 | XMS_ITS | Encounter Summary ---
:1940 Author Organization [facility] Address [address] [place] [address] Care Team Providers Name Role Phone Fabian Arias MD Primary Care Provider Encounter Details Date Type Department Care Team Description 06/21/2021 Treatment [facility] f Landon Zarate MD [address] [place] [address] [place], [place] [phone] (Wo rk) Social History Tobacco Use Types Packs/Day Years Used Date Smoking Tobacco: Never Assessed Sex Assigned at Date Recorded Not on file documented as of this encounter Miscellaneous Notes Dialysis Note - Landon Calvert MD - 06/21/2021 9:36 AM CST Date: Jun 21, 2021 Patient Name: Zamzam Garibay : 1940 Chart #: [id number] Sex: F This patient was personally seen [...] AM ) BP (sit): 139/79 AP(-) / AGITATOR OPERATOR: 221/143 Pulse: 76 Chairside data as of [...] mcg ORAL Every Treatment 06/05/2021 06/04/2022 MANAGER WORK: Landon Calvert MD LOCATION: [phone] SCHEDULE: -W- 2nd Shift ACCESS: EDW: kg. [...] in the hospital overnight last month at [place], SOB resolved with fluid removal. Can't [...] HD. 04/26/21: She was hospitalized briefly at [place] for dyspnea, no pneumonia but rather related to CHF. She saw cardiology in follow-up in clinic, lisinopril and metoprolol and lasix with UF on HD to dry weight recommended. She is not interested in home dialysis, discussed today. 04/12/21: Patient new to me. She followed with carpenter supervisor wooden ship in [facility], did not follow-up,crashed into [...] mouth once a day 04/12/2021 RenaPlex-D (vit b,v-jt-fapq-selen-vit d3-e) 800 mcg-12.5 mg-2,000 unit tablet Take [...] tributaries. [facility] now [facility] procedure scheduled at [facility]. Impression and Plan Increase EDW to [...] on filedocumented in this encounter Care Teams Merchandise Handler Relationship Specialty Start Date End Date Fabian Arias MD PCP - General Family Medicine 09/04/[address] [place] [address] documented as of this encounter
--- OUTSIDE RECORDS SUMMARY | 2022-05-06 02:02 | XMS_ITS | Encounter Summary ---
:1940 Author Organization [facility] Address [address] [place] [address] Care Team Providers Name Role Phone Fabian Arias MD Primary Care Provider Encounter Details Date Type Department Care Team Description 06/29/2021 Orders Only [facility] O f Landon Zarate MD [address] [place] [address] [place], [place] [phone] (Wo rk) Social History Tobacco Use [...] encounter Results (ABNORMAL) SARS-CoV-2 by PCR (06/29/2021) [facility] Method Time Signature SARS CoV-2 [...] for the duration of time that the Facility Technician of the HHS decla res circumstances exist justifying the authorization of the christiano gency use of in vitro diagnostic tests for detection of SARS-CoV-2 virus and/or diagnosis of COVID-19 infection under section 564(b)(1) of the Act, 21 U.S.C. 360bbb-3(b)(1), unless the authorization is terminated o r revoked sooner. To learn more about this test, go to [email or web address]/[email or web address] rts Performed by: PLACIDO Wong [id number], CLIA [id number], [address] [place] [address] Armor Reconnaissance Vehicle Driver: Anthony Keen, Ph D, [facility], FFSC ([facility]) Performed by: JANNA Wong [id number], [address] ??[place] [address], Sp Gonzales MD First COVID-19 Test? NO [...] / Volume Laterality 06/29/2021 06/30/2021 6:33 PM CALENDER LET OFF HELPER Narrative APS SPECTRA [facility] - 06/30/2021 Unless otherwise specified, test(s) performed at: [facility], [facility] [place] [address] [address] BATTERY ASSEMBLER: Darnell Nguyen M.D. For any questions, please call customer service at FREQUENCY:OTHER Resulting Agency Comment Specimen source: Swab/ANTERIOR NARES Landon Calvert MD LAB [id number] NSOLICITED RESULTS Performing Organization Address City/State/ZIP Code Phon e Number APS SPECTRA [facility] documented in this encounter Visit Diagnoses Not on filedocumented in this encounter Care Teams Assurance Senior Relationship Specialty Start Date End Date Fabian Arias MD PCP - General Family Medicine 09/04/[address] [place] [address] documented as of this encounter
--- OUTSIDE RECORDS SUMMARY | 2022-05-06 02:02 | XMS_ITS | Encounter Summary ---
:1940 Author Organization [facility] Address [address] [place] [address] Care Team Providers Name Role Phone Fabian Arias MD Primary Care Provider Encounter Details Date Type Department Care Team Description 08/07/2021 Orders Only [facility] O f Landon Zarate MD [address] [place] [address] [place], [place] [phone] (Wo rk) Social History Tobacco Use [...] Provider LAB BLOOD ORDERABLES Performing Organization Address City/[facility] Phon e Number CELIA HD KINETICS (08/07/2021) P athologist Signature % Urea 80 65 - 80 % APS SPECTRA Reduction [facility] Specimen (Source) Anatomical Collection Method Collection Time Re ceived Time Location / / Volume Laterality 08/07/2021 08/08/2021 7:17 PM CONCENTRATOR OPERATOR Narrative APS SPECTRA [facility] - 08/09/2021 Unless otherwise specified, test(s) performed at: [facility], [address] [place] [address] INVESTIGATOR FRAUD: Carl Paula M.D. For any questions, please call customer service at FREQUENCY:OTHER Resulting Agency Comment Specimen source: Serum Landon Calvert MD LAB BLOOD ORDERABLES Performing Organization Address City/[facility] Phon e Number APS SPECTRA [facility] (ABNORMAL) Spectrae Chemistry (08/07/2021) P athologist Signature BUN 93 (H) 6 - 19 APS SPECTRA mg/dL [facility] Specimen (Source) Anatomical Collection Method Collection Time Re ceived Time Location / / Volume Laterality 08/07/2021 08/08/2021 7:17 PM CONCENTRATOR OPERATOR Narrative APS SPECTRA [facility] - 08/09/2021 Unless otherwise specified, test(s) performed at: [facility], [address] [place] [address] INVESTIGATOR FRAUD: Carl Paula M.D. For any questions, please call customer service at FREQUENCY:OTHER Resulting Agency Comment Specimen source: Serum Landon Calvert MD LAB BLOOD ORDERABLES Performing Organization Address City/[facility] Phon e Number APS SPECTRA [facility] POST CHEMISTRY (08/07/2021) P athologist Signature BUN Post 19 6 - 19 APS SPECTRA Dialysis mg/dL [facility] Specimen (Source) Anatomical Collection Method Collection Time Re ceived Time Location / / Volume Laterality 08/07/2021 08/08/2021 6:10 PM CONCENTRATOR OPERATOR Narrative APS SPECTRA [facility] - 08/09/2021 Unless otherwise specified, test(s) performed at: [facility], [address] [place] [address] INVESTIGATOR FRAUD: Carl Paula M.D. For any questions, please call customer service at FREQUENCY:OTHER Resulting Agency Comment Specimen source: Plasma Landon Calvert MD LAB BLOOD ORDERABLES Performing Organization Address City/State/ZIP Code Phon e Number APS SPECTRA [facility] documented in this encounter Visit Diagnoses Not on filedocumented in this encounter Care Teams Miner Assistant Relationship Specialty Start Date End Date Fabian Arias MD PCP - General Family Medicine 09/04/[address] [place] [address] documented as of this encounter
--- OUTSIDE RECORDS SUMMARY | 2022-05-06 02:02 | XMS_ITS | Encounter Summary ---
:1940 Author Organization [facility] Address [address] [place] [address] Care Team Providers Name Role Phone Fabian Arias MD Primary Care Provider Encounter Details Date Type Department Care Team Description 07/05/2021 Orders Only [facility] O f Landon Zarate MD [address] [place] [address] [place], [place] [phone] (Wo rk) Social History Tobacco Use [...] Volume Laterality 07/05/2021 07/07/2021 12:1 5 PM HEALTH ANALYST Narrative APS SPECTRA [facility] - 07/10/2021 Unless otherwise specified, test(s) performed at: [facility], [address] [place] [address] SALES ADVISOR: Carl Paula M.D. For any questions, please call customer service at FREQUENCY:MONTHLY Resulting Agency Comment Specimen source: Serum Landon Calvert MD LAB BLOOD BANK TEST ORDERABL ES Performing Organization Address City/[facility]/ZIP [...] Volume Laterality 07/05/2021 07/07/2021 12:1 5 PM HEALTH ANALYST Resulting Agency Comment Specimen source: Serum Landon Calvert MD LAB BLOOD ORDERABLES Performing Organization Address City/State/ZIP Code Phon e Number APS SPECTRA [facility] TRACE ELEMENTS (07/05/2021) P athologist Signature Aluminum <5 0 - 10 APS SPECTRA mcg/L [facility] Comment: This test was developed and its performa nce characteristics determined by [facility]. It has not been cleared or approved by the FDA. The laboratory is regulated under CLIA a s qualified to perform high complexity testing. This test is used fo r clinical purposes. It should not be regarded as investigational or fo r research. Specimen (Source) Anatomical Collection Method Collection Time Re ceived Time Location / / Volume Laterality 07/05/2021 07/07/2021 1:01 PM HEALTH ANALYST Narrative APS SPECTRA [facility] - 07/09/2021 Unless otherwise specified, test(s) performed at: [facility], [address] [place] [address] SALES ADVISOR: Carl Paula M.D. For any questions, please [...] Volume Laterality 07/05/2021 07/07/2021 12:3 5 PM HEALTH ANALYST Narrative APS SPECTRA [facility] - 07/08/2021 Unless otherwise specified, test(s) performed at: [facility], [address] [place] [address] SALES ADVISOR: Carl Paula M.D. For any questions, please call customer service at FREQUENCY:MONTHLY Resulting Agency Comment Specimen source: Plasma Landon Calvert MD LAB BLOOD ORDERABLES Performing Organization Address City/State/[facility] Phon e Number APS SPECTRA [facility] HD KINETICS (07/05/2021) P athologist Signature % Urea 78 65 - 80 % APS SPECTRA Reduction [facility] Specimen (Source) Anatomical Collection Method Collection Time Re ceived Time Location / / Volume Laterality 07/05/2021 07/07/2021 12:1 5 PM HEALTH ANALYST Narrative APS SPECTRA [facility] - 07/07/2021 Unless otherwise specified, test(s) performed at: [facility], [address] [place] [address] SALES ADVISOR: Carl Paula M.D. For any questions, please call customer service at FREQUENCY:MONTHLY Resulting Agency Comment Specimen source: Serum Landon Calvert MD LAB BLOOD ORDERABLES Performing Organization Address City/State/[facility] Code Phon e Number APS [...] Volume Laterality 07/05/2021 07/07/2021 12:1 5 PM HEALTH ANALYST Narrative APS SPECTRA [facility] - 07/09/2021 Unless otherwise specified, test(s) performed at: [facility], [address] [place] [address] SALES ADVISOR: Carl Paula M.D. For any questions, please [...] Volume Laterality 07/05/2021 07/07/2021 11:4 1 AM HEALTH ANALYST Narrative APS SPECTRA [facility] - 07/07/2021 Unless otherwise specified, test(s) performed at: [facility], [address] [place] [address] SALES ADVISOR: Carl Paula M.D. For any questions, please call customer service at FREQUENCY:MONTHLY Resulting Agency Comment Specimen source: Plasma Landon Calvert MD LAB BLOOD ORDERABLES Performing Organization Address City/[facility] Code Phon e Number APS [...] Volume Laterality 07/05/2021 07/07/2021 12:0 8 PM HEALTH ANALYST Narrative APS SPECTRA [facility] - 07/07/2021 Unless otherwise specified, test(s) performed at: [facility], [address] [place] [address] SALES ADVISOR: Carl Paula M.D. For any questions, please call customer service at FREQUENCY:MONTHLY Resulting Agency Comment Specimen source: Blood Landon Calvert MD LAB BLOOD ORDERABLES Performing Organization Address City/[facility]/ZIP [facility] Phon e Number APS SPECTRA [facility] documented in this encounter Visit Diagnoses Not on filedocumented in this encounter Care Teams Manager Transfusion Relationship Specialty Start Date End Date Fabian Arias MD PCP - General Family Medicine 09/04/[address] [place] [address] documented as of this encounter
--- OUTSIDE RECORDS SUMMARY | 2022-05-06 02:02 | XMS_ITS | Encounter Summary ---
:1940 Author Organization [facility] Address [address] [place] [address] Care Team Providers Name Role Phone Fabian Arias MD Primary Care Provider Encounter Details Date Type Department Care Team Description 08/02/2021 Treatment [facility] f Landon Zarate MD [address] [place] [address] [place], [place] [phone] (Wo rk) Social History Tobacco Use Types Packs/Day Years Used Date Smoking Tobacco: Smoker, Current Cigarettes Started: 07/01/1976 Status Unknown Sex Assigned at Date Recorded Not on file documented as of this encounter Miscellaneous Notes Dialysis Note - Landon Calvert MD - 08/02/2021 8:53 AM CST Date: Aug 02, 2021 Patient Name: Zamzam Garibay : 1940 Chart #: [id number] Sex: F This patient was personally seen [...] AM ) BP (sit): 126/67 AP(-) / FIELD PARTY MANAGER: 237/132 Pulse: 85 Chairside data as of [...] 03:30 Actual Treatment Time 03:29 03:14 03:26 EVALUATION ASSISTANT: Landon Calvert MD LOCATION: [place] [phone] SCHEDULE: -W- 2nd Shift EDW: kg. DIALYZER: [...] This is Jaz's first day back from [facility]. She says she had no symptoms, but her son tested her when she was fatigued and had fever. She reports now having no symptoms at all. She says she feels great. Fluid gains have been better. Only complaint is acid reflux with once weekly vomiting up acid in her mouth and she says she used to be on acid baseball glove stuffer but she hasn't had it sincebeing in [...] in the hospital overnight last month at [place], SOB resolved with fluid removal. Can't remove [...] HD. 04/26/21: She was hospitalized briefly at [place] for dyspnea, no pneumonia but rather related to CHF. She saw cardiology in follow-up in clinic, lisinopril and metoprolol and lasix with UF on HD to dry weight recommended. She is not interested in home dialysis, discussed today. 04/12/21: Patient new to me. She followed with gasoline pump installer in [facility], did not follow-up,crashed [...] mouth once a day 04/12/2021 RenaPlex-D (vit b,l-uj-yjrn-selen-vit d3-e) 800 mcg-12.5 mg-2,000 unit tablet Take [...] tributaries. Have had difficulty getting her into [facility], now has procedure scheduled at [facility] but delayed until August due to COVID infection. Has appt at [place] 08/08/21 Anemia Assessment HEMOGLOBIN (G/DL) IN BLOOD [...] above goal. Intact PTH is at goal. Senior Managing Director will adjust binders and vitamin D per [...] Will have PCAD replaced on 08/08/21 at [place] when she has AVF procedure scheduled. If they cannot do itthere, will do it at [facility] Monthly labs drawn today Landon Calvert MD [ Signed And locked electronically On 08/02/2021 at 08:57:22 AM ] Transcribed: Landon Calvert ( 08/02/2021 ) documented in this encounter Plan of Treatment Not on filedocumented as of this encounter Visit Diagnoses Not on filedocumented in this encounter Care Teams Laminating Press Operator Relationship Specialty Start Date End Date Fabian Arias MD PCP - General Family Medicine 09/04/[address] [place] [address] documented as of this encounter
--- OUTSIDE RECORDS SUMMARY | 2022-05-06 02:02 | XMS_ITS | Encounter Summary ---
:1940 Author Organization [facility] Address [address] [place] [address] Care Team Providers Name Role Phone Fabian Arias MD Primary Care Provider Encounter Details Date Type Department Care Team Description 06/22/2021 Orders Only [facility] O f Landon Zarate MD [address] [place] [address] [place], [place] [phone] (Wo rk) Social History Tobacco Use [...] encounter Results (ABNORMAL) SARS-CoV-2 by PCR (06/22/2021) [facility] Method Time Signature SARS CoV-2 by Positive [...] for the duration of time that the Wireless Operator of the HHS decla res circumstances exist justifying the authorization of the christiano gency use of in vitro diagnostic tests for detection of SARS-CoV-2 virus and/or diagnosis of COVID-19 infection under section 564(b)(1) of the Act, 21 U.S.C. 360bbb-3(b)(1), unless the authorization is terminated o r revoked sooner. To learn more about this test, go to [email or web address] [email or web address] Performed by: PLACIDO Wong [id number], CLIA [id number], [address] [place] [address] Merchandise Examiner: Anthony Keen, Ph D, FAC, FFSC ([facility]) Performed by: JANNA Wong [id number], [address] ??[place] [address], Sp Gonzales MD First COVID-19 Test? YES [...] / Volume Laterality 06/22/2021 06/23/2021 9:16 PM CIS COORDINATOR Narrative APS SPECTRA [facility] - 06/23/2021 Unless otherwise specified, test(s) performed at: [facility], [facility] [address], [place] [address] SEWER SYSTEM SUPERVISOR: Darnell Nguyen M.D. For any questions, please call customer service at FREQUENCY:OTHER Resulting Agency Comment Specimen source: Swab/ANTERIOR NARES Landon Calvert MD LAB [id number] NSOLICITED RESULTS Performing Organization Address City/State/ZIP Code Phon e Number APS SPECTRA [facility] HEMATOLOGY (06/22/2021) athologist Signature Hemoglobin 12.2 12.0 - APS SPECTRA 16.0 g/dL [facility] Hemoglobin x 3 36.6 36.0 - APS SPECTRA 48.0 % [facility] Specimen (Source) Anatomical Collection Method Collection Time Re ceived Time Location / / Volume Laterality 06/22/2021 06/23/2021 10:0 9 AM CIS COORDINATOR Narrative APS SPECTRA [facility] - 06/23/2021 Unless otherwise specified, test(s) performed at: [facility], [address] [place] [address] SEWER SYSTEM SUPERVISOR: Carl Paula M.D. For any questions, please call customer service at FREQUENCY:OTHER Resulting Agency Comment Specimen source: Blood Landno Calvert MD LAB BLOOD ORDERABLES Performing Organization Address City/State/ZIP Code Phon e Number APS SPECTRA [facility] documented in this encounter Visit Diagnoses Not on filedocumented in this encounter Care Teams Income Tax Preparer Relationship Specialty Start Date End Date Fabian Arias MD PCP - General Family Medicine 09/04/[address] [place] [address] documented as of this encounter
--- OUTSIDE RECORDS SUMMARY | 2022-05-06 02:02 | XMS_ITS | Encounter Summary ---
:1940 Author Organization [facility] Address [address] [place] [address] Care Team Providers Name Role Phone Fabian Arias MD Primary Care Provider Encounter Details Date Type Department Care Team Description 07/26/2021 Treatment [facility] Landon Zarate MD [address] [place] [address] [place], [place] [phone] (Wo rk) Social History Tobacco Use Types Packs/Day Years Used Date Smoking Tobacco: Smoker, Current Cigarettes Started: 07/01/1976 Status Unknown Sex Assigned at Date Recorded Not on file documented as of this encounter Miscellaneous Notes Dialysis Note - Landon Calvert MD - 07/26/2021 10:23 AM CST Date: Jul 26, 2021 Patient Name: Zamzam Garibay : 1940 Chart #: [id number] Sex: F This patient was personally seen [...] 1.0 mcg ORAL Every Treatment 06/05/2021 06/04/2022 LENS GRINDER ROUGH: Landon Calvert MD LOCATION: [phone] SCHEDULE: -- 2nd Shift ACCESS: EDW: kg. [...] is Jaz's first day back from [facility]. She says she had no symptoms, but her son tested her when she was fatigued and had fever. She reports now having no symptoms at all. She says she feels great. Fluid gains have been better. Only complaint is acid reflux with once weekly vomiting up acid in her mouth and she says she used to be on acid agricultural engineering technician but she hasn't had it sincebeing [...] in the hospital overnight last month at [place], SOB resolved with fluid removal. Can't remove [...] HD. 04/26/21: She was hospitalized briefly at [facility] [facility] for dyspnea, no pneumonia but rather related to CHF. She saw cardiology in follow-up in clinic, lisinopril and metoprolol and lasix with UF on HD to dry weight recommended. She is not interested in home dialysis, discussed today. 04/12/21: Patient new to me. She followed with director correctional agency in [facility], did not follow-up,crashed into dialysis [...] mouth once a day 04/12/2021 RenaPlex-D (vit b,y-eb-nsdm-selen-vit d3-e) 800 mcg-12.5 mg-2,000 unit tablet Take [...] tributaries. Have had difficulty getting her into [facility], now has procedure scheduled at [facility] but delayed until August due to COVID [...] on filedocumented in this encounter Care Teams Rn Transfer Relationship Specialty Start Date End Date Fabian Arias MD PCP - General Family Medicine 09/04/[address] [place] [address] documented as of this encounter
--- OUTSIDE RECORDS SUMMARY | 2022-05-06 02:03 | XMS_ITS | Encounter Summary ---
:1940 Author Organization [facility] Address [address] [place] [address] Care Team Providers Name Role Phone Fabian Arias MD Primary Care Provider Encounter Details Date Type Department Care Team Description 04/26/2021 Treatment [facility] Landon King MD [address] [place] [address] [place] [phone] (Wo rk) Social History Tobacco Use Types Packs/Day Years Used Date Smoking Tobacco: Never Assessed Sex Assigned at Date Recorded Not on file documented as of this encounter Miscellaneous Notes External Note - Landon Calvert MD - 04/26/2021 11:25 AM CDT Date: Apr 26, 2021 Patient Name: Zamzam Garibay : 1940 Chart #: [id number] Sex: F Patient has transitioned out of the following type of facility within the past 30 days: Hospital. Discharging Facility: [facility] Patient caregiver is present? If yes, [...] mouth once a day 04/12/2021 RenaPlex-D (vit b,u-ko-fcnv-selen-vit d3-e) 800 mcg-12.5 mg-2,000 unit tablet Take [...] Name: Zamzam Garibay : 1940 Chart #: [id number] Sex: F This patient was personally seen [...] AM ) BP (sit): 114/63 AP(-) / MANHOLE BUILDER: 192/142 Pulse: 66 Chairside data as of [...] 0.5 mcg ORAL Every Treatment 04/10/2021 04/09/2022 TEMPERING KILN TENDER: Landon Calvert MD LOCATION: [phone] SCHEDULE: -- 2nd Shift ACCESS: EDW: kg. DIALYZER: HD DURATION: NEEDLE SIZE: ANTICOAG: BATH: QB: ml/min QD: ml/min Subjective 04/26/21: She was hospitalized briefly at [facility] for dyspnea, no pneumonia but rather related to CHF. She saw cardiology in follow-up in clinic, lisinopril and metoprolol and lasix with UF on HD to dry weight recommended. She is not interested in home dialysis, discussed today. 04/12/21: Patient new to me. She followed with section hand in [facility], did not follow-up,crashed into dialysis in January [...] mouth once a day 04/12/2021 RenaPlex-D (vit b,b-sa-jcke-selen-vit d3-e) 800 mcg-12.5 mg-2,000 unit tablet Take [...] on filedocumented in this encounter Care Teams Estate And Trust Tax Principal Relationship Specialty Start Date End Date Fabian Arias MD PCP - General Family Medicine 09/04/[address] [place] [address] documented as of this encounter
--- OUTSIDE RECORDS SUMMARY | 2022-05-06 02:03 | XMS_ITS | Encounter Summary ---
:1940 Author Organization [facility] Address [address] [place] [address] Care Team Providers Name Role Phone Fabian Arias MD Primary Care Provider Encounter Details Date Type Department Care Team Description 05/03/2021 Treatment [facility] Landon Zarate MD [address] [place] [address] [place], [place] [phone] (Wo rk) Social History Tobacco Use Types Packs/Day Years Used Date Smoking Tobacco: Never Assessed Sex Assigned at Date Recorded Not on file documented as of this encounter Miscellaneous Notes Dialysis Note - Landon Calvert MD - 05/03/2021 12:25 PM CDT Date: May 03, 2021 Patient Name: Zamzam Garibay : 1940 Chart #: [id number] Sex: F This patient was personally seen [...] AM ) BP (sit): 158/63 AP(-) / WHIZZER OPERATOR: 205/139 Pulse: 76 Chairside data as of [...] 0.5 mcg ORAL Every Treatment 04/10/2021 04/09/2022 COMPREHENSIVE ADVISOR: Landon Calvert MD LOCATION: [phone] SCHEDULE: M-W-F 2nd Shift EDW: kg. DIALYZER: HD DURATION: NEEDLE SIZE: ANTICOAG: BATH: QB: ml/min QD: ml/min Subjective 05/03/21: Zamzam says she is so thankful to be here. She feels excellent and is very happy with her living situation. She has no concerns at all and is doing great on HD. 04/26/21: She was hospitalized briefly at [place] for dyspnea, no pneumonia but rather related to CHF. She saw cardiology in follow-up in clinic, lisinopril and metoprolol and lasix with UF on HD to dry weight recommended. She is not interested in home dialysis, discussed today. 04/12/21: Patient new to me. She followed with farm implement engine mechanic in [facility], did not follow-up,crashed [...] mouth once a day 04/12/2021 RenaPlex-D (vit b,v-ts-hcvt-selen-vit d3-e) 800 mcg-12.5 mg-2,000 unit tablet Take [...] above goal. Intact PTH is above goal. Brazing Machine Setter will adjust binders and vitamin D per [...] on filedocumented in this encounter Care Teams Furniture Detailer Relationship Specialty Start Date End Date Fabian Arias MD PCP - General Family Medicine 09/04/[address] [place] [address] documented as of this encounter
--- OUTSIDE RECORDS SUMMARY | 2022-05-06 02:03 | XMS_ITS | Encounter Summary ---
:1940 Author Organization [facility] Address [address] [place] [address] Phone Care Team Providers Name Role Phone Fabian Arias MD Primary Care Provider Encounter Details Date Type Department Care Team Description 02/21/2017 Treatment [facility] Ramirez Duffy MD [address] [place] [address] [place], [place] [phone] (Wo rk) Social History Tobacco Use Types Packs/Day Years Used Date Smoking Tobacco: Never Assessed Sex Assigned at Date Recorded Not on file documented as of this encounter Progress Notes Ramirez Duffy MD - 02/21/2017 12:00 AM CDT Patient Name: Zamzam Garibay : 1940 Chart #: [id number] Date: Feb 21, 2017 Referring MD: Fabian Arias MD Chief Complaint CKD III History of Present Illness 76 yo wo w h/o recent diagnosis HTN is here for evaluation of GIOVANNI. No recent hospitalizations or ER visits. Denies h/o recent use of NSAIDS, denies gross hematuria, dysuria or hemoptysis. Denies Nate edema. C/o left ankle pain off and on. 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 Noted to have elevated creatinine up to [...] on filedocumented in this encounter Care Teams Cleaning Technician Relationship Specialty Start Date End Date Fabian Arias MD PCP - General Family Medicine 09/04/20 [address] [place] [address] documented as of this encounter
--- OUTSIDE RECORDS SUMMARY | 2022-05-06 02:03 | XMS_ITS | Encounter Summary ---
:1940 Author Organization [facility] Address [address] [place] [address] Phone Care Team Providers Name Role Phone Fabian Arias MD Primary Care Provider Encounter Details Date Type Department Care Team Description 10/28/2019 Treatment [facility] Robert Newell MD [address] [place] [address] [place], [place] [phone] (Wo rk) Social History Tobacco Use Types Packs/Day Years Used Date Smoking Tobacco: Never Assessed Sex Assigned at Date Recorded Not on file documented as of this encounter Progress Notes Robert Newell MD - 10/28/2019 12:00 AM CDT Patient Name: Zamzam Garibay : 1940 Chart #: [id number] Date: Oct 28, 2019 Referring MD: Fabian Arias MD Chief Complaint CKD III History of Present Illness 78 year old woman with a history of hypertension and chronic renal failure who was recently seen by me at [facility] with acute on chronic renal failure and [...] filedocumented in this encounter Care Teams Iron Guardrail Installer Relationship Specialty Start Date End Date Fabian Arias MD PCP - General Family Medicine 09/04/[address] [place] [address] documented as of this encounter
--- OUTSIDE RECORDS SUMMARY | 2022-05-06 02:03 | XMS_ITS | Encounter Summary ---
:1940 Author Organization [facility] Address [address] [place] [address] Phone Care Team Providers Name Role Phone Fabian Arias MD Primary Care Provider Reason for Visit Consultation (Routine) - Closed Specialty Diagnoses / Procedures Referred By Contact Refer red To Contact Nephrology Diagnoses Chronic kidney disease, Stage V (HCC) Fabian Arias MD Kennedy, Shane W, MD [address] [place] [phone] Referral ID Status Reason Start Date Expiration Date Visits V isits Requested Authorized [id number] Closed Consult and 07/29/2020 11/25/2020 4 4 Treat Encounter Details Date Type Department Care Team Description 09/05/2020 Office Visit [facility] Robert Newell Stage 5 chron ic kidney disease (HCC) (Primary Dx); Consultants MD Dinesh Chronic kidney disease, Stage V (HCC); [address] Essential (primary) hypertension; [address] [place], [place] Anemia in chronic kidney dis ease; [place] [address] Secondary hyperparathyroidism of renal o rigin ([facility]) [phone] Social History Tobacco Use Types Packs/Day Years Used Date Smoking Tobacco: Smoker, Current Cigarettes Started: 07/01/1976 Status Unknown Sex Assigned at Date Recorded Not on file documented as of this encounter Last Filed Vital Signs Vital Sign Reading Time Taken Comments Blood Pressure 130/80 09/05/2020 1:08 PM LABORER SHAFT SINKING Pulse 87 09/05/2020 1:08 PM LABORER SHAFT SINKING Temperature - - Respiratory Rate - - Oxygen Saturation 98% 09/05/2020 1:08 PM LABORER SHAFT SINKING Inhaled Oxygen Concentration - - Weight 48.5 kg (107 lb) 09/05/2020 1:08 PM LABORER SHAFT SINKING Height 160 cm (5' 3) 09/05/2020 1:08 PM LABORER SHAFT SINKING Body Mass Index 18.95 09/05/2020 1:08 PM LABORER SHAFT SINKING documented in this encounter Progress Notes Robert Newell MD - 09/05/2020 1:15 PM CST Images from the original note were not included. [facility] [address] [place] [address] Office Visit Patient Name: Cindi Garibay, Female Date of : 1940, 79 y.o. Medical Record: [id number] Date: 09/05/2020 Ref Provider: Fabian Arias MD PCP: FABIAN ARIAS MD (General) Reason for Visit: History of Present Illness Cindi Garibay is a 79 y.o. female with a history of hypertension and chronic renal failure who was recently seen by me at [facility] with acute on chronic renal failure [...] any questions or changes. Robert Newell MD [facility] [address] [place] [address] documented in this encounter Plan of Treatment [...] kidney disea se, Stage Expected: V ([facility]) 12/04/2020 Stage 5 chronic kidney disea se (Approximate), (HCC) Expires: Essential (primary) 10/07/19 22 hypertension Anemia in chronic kidney disease Secondary hyperparathyroidis m of renal origin (HCC) Protein, Total, Random Lab Routine Chronic kidney dis ease, Stage Expected: Urine w/Creatinine V ([facility]) 12/04/2020 (Protein/Creat Ratio) Stage 5 chronic kid martin disease (Approximate), (HCC) Expires: Essential (primary) 10/07/19 22 hypertension Anemia in chronic kidney disease Secondary hyperparathyroidis m of renal origin (HCC) Urinalysis with Lab Routine Chronic kidney disease, S tage Expected: microscopic V ([facility]) 12/04/2020 Stage 5 chronic kidney disea se (Approximate), (HCC) Expires: Essential (primary) 10/07/19 22 hypertension Anemia in chronic kidney disease Secondary hyperparathyroidis m of renal origin ([facility]) Uric Acid Lab Routine Chronic kidney disease, Stag e Expected: V ([facility]) 12/04/2020 Stage 5 chronic kidney disea se [...] rigin documented in this encounter Care Teams Audience Coordinator Relationship Specialty Start Date End Date Fabian Arias MD PCP - General Family Medicine 09/04/[address] [place] [address] documented as of this encounter
--- OUTSIDE RECORDS SUMMARY | 2022-05-06 02:03 | XMS_ITS | Encounter Summary ---
:1940 Author Organization [facility] Address [address] [place] [address] Phone Care Team Providers Name Role Phone Fabian Arias MD Primary Care Provider Encounter Details Date Type Department Care Team Description 09/20/2016 Treatment [facility] Ramirez Duffy MD [address] [place], [place] [phone] [place], [place] [phone] (Wo rk) Social History Tobacco Use Types Packs/Day Years Used Date Smoking Tobacco: Never Assessed Sex Assigned at Date Recorded Not on file documented as of this encounter Progress Notes Ramirez Duffy MD - 09/20/2016 12:00 AM CDT Patient Name: Zamzam Garibay : 1940 Chart #: [id number] Date: Sep 20, 2016 Nephrology consultation dictated. [...] Name: Zamzam Garibay : 1940 Chart #: [id number] Date: Sep 20, 2016 09/20/2016 Height: 5 [...] on filedocumented in this encounter Care Teams Nursing Education Consultant Relationship Specialty Start Date End Date Fabian Arias MD PCP - General Family Medicine 09/04/[address] [place] [address] documented as of this encounter
--- OUTSIDE RECORDS SUMMARY | 2022-05-06 02:03 | XMS_ITS | Encounter Summary ---
:1940 Author Organization [facility] Address [address] [place] [address] Phone Care Team Providers Name Role Phone Fabian Arias MD Primary Care Provider Encounter Details Date Type Department Care Team Description 01/06/2021 Documentation Only [facility] Robert Newell, [address] [place] [phone] (Wo rk) Social History Tobacco Use Types Packs/Day Years Used Date Smoking Tobacco: Smoker, Current Cigarettes Started: 07/01/1976 Status Unknown Sex Assigned at Date Recorded Not on file documented as of this encounter Plan of Treatment Not on filedocumented as of this encounter Visit Diagnoses Not on filedocumented in this encounter Care Teams Dielectric Embossing Machine Operator Relationship Specialty Start Date End Date Fabian Arias MD PCP - General Family Medicine 09/04/[address] [place] [address] documented as of this encounter
--- OUTSIDE RECORDS SUMMARY | 2022-05-06 02:03 | XMS_ITS | Encounter Summary ---
:1940 Author Organization [facility] Address [address] [place] [address] Care Team Providers Name Role Phone Fabian Arias MD Primary Care Provider Encounter Details Date Type Department Care Team Description 05/17/2021 Orders Only [facility] Landon Zarate MD [address] [place] [address] [place], [place] [phone] (Wo rk) Social History Tobacco Use [...] Volume Laterality 05/17/2021 05/18/2021 11:5 1 AM PICKER Narrative [facility] - 05/18/2021 Unless otherwise specified, test(s) performed at: [facility], [address] [place] [id number] MANAGER: Carl Paula M.D. For any questions, please call customer service at FREQUENCY:OTHER Resulting Agency Comment Specimen source: Blood Landon Calvert MD LAB BLOOD ORDERABLES Performing Organization Address City/State/ZIP Code Phon e Number [facility] documented in this encounter Visit Diagnoses Not on filedocumented in this encounter Care Teams Asbestos Abatement Worker Relationship Specialty Start Date End Date Fabian Arias MD PCP - General Family Medicine 09/04/[address] [place] [address] documented as of this encounter
--- OUTSIDE RECORDS SUMMARY | 2022-05-06 02:03 | XMS_ITS | Encounter Summary ---
:1940 Author Organization [facility] Address [address] [place] [address] Care Team Providers Name Role Phone Fabian Arias MD Primary Care Provider Encounter Details Date Type Department Care Team Description 04/05/2021 Orders Only [facility] Landon Zarate MD [address] [place] [address] [place], [place] [phone] (Wo rk) Social History Tobacco Use [...] 04/07/2021 Unless otherwise specified, test(s) performed at: [facility], [address] [place] [address] PLANNING FEEDER: Carl Paula M.D. For any questions, please call customer service at FREQUENCY:MONTHLY Resulting Agency Comment Specimen source: Plasma Landon Calvert MD LAB BLOOD ORDERABLES Performing Organization Address City/State/ZIP Code Phon e Number [facility] documented in this encounter Visit Diagnoses Not on filedocumented in this encounter Care Teams Boiler Erector Relationship Specialty Start Date End Date Fabian Arias MD PCP - General Family Medicine 09/04/[address] [place] [address] documented as of this encounter
--- OUTSIDE RECORDS SUMMARY | 2022-05-06 02:03 | XMS_ITS | Encounter Summary ---
:1940 Author Organization [facility] Address [address] [place] [address] Phone Care Team Providers Name Role Phone Fabian Arias MD Primary Care Provider Encounter Details Date Type Department Care Team Description 12/28/2019 Treatment [facility] Provider, Aps External [address] [place] [address] Social History Tobacco Use Types Packs/Day Years Used Date Smoking Tobacco: Never Assessed Sex Assigned at Date Recorded Not on file documented as of this encounter Miscellaneous Notes External Note - Aps External Provider - 12/28/2019 12:00 AM CDT Patient Name: Zamzam Garibay : 1940 Chart #: [id number] Date: Dec 28, 2019 12/28/2019 Height: 5 ft 3 in Weight: 108.6 lbs BMI: 19.2 Temperature: 98.8 F Blood Pressure: 136/84 mm Hg (Left Arm Sitting) 134/84 mm Hg (Left Arm Standing) Pulse: Left radial Sitting at 83 bpm Oxygen Saturation: 99% (Left Hand) Oxygen Delivery: Room Air Ceci Santos Upkeep Worker [ Signed And locked electronically On 12/28/2019 at 12:58:10 PM ] Transcribed: Chel Johnson Assistant ( 12/28/2019 ) documented in this encounter Plan of Treatment Not on filedocumented as of this encounter Visit Diagnoses Not on filedocumented in this encounter Care Teams Sales And Service Advisor Relationship Specialty Start Date End Date Fabian Arias MD PCP - General Family Medicine 09/04/[address] [place] [address] documented as of this encounter
--- OUTSIDE RECORDS SUMMARY | 2022-05-06 02:03 | XMS_ITS | Encounter Summary ---
:1940 Author Organization [facility] Address [address] [place] [address] Phone Care Team Providers Name Role Phone Fabian Arias MD Primary Care Provider Encounter Details Date Type Department Care Team Description 10/30/2016 Treatment [facility] Ramirez Duffy MD [address] [place] [address] [place], [place] [phone] (Wo rk) Social History Tobacco Use Types Packs/Day Years Used Date Smoking Tobacco: Never Assessed Sex Assigned at Date Recorded Not on file documented as of this encounter Progress Notes Ramirez Duffy MD - 10/30/2016 12:00 AM CDT Patient Name: Zamzam Garibay : 1940 Chart #: [id number] Date: October 30, 2016 Referring MD: Fabian Arias MD Chief Complaint GIOVANNI/CKD III History [...] on filedocumented in this encounter Care Teams Veterinary Surgery Technician Relationship Specialty Start Date End Date Fabian Arias MD PCP - General Family Medicine 09/04/[address] [place] [address] documented as of this encounter
--- OUTSIDE RECORDS SUMMARY | 2022-05-06 02:03 | XMS_ITS | Encounter Summary ---
:1940 Author Organization [facility] Address [address] [place] [address] Phone Care Team Providers Name Role Phone Fabian Arias MD Primary Care Provider Encounter Details Date Type Department Care Team Description 03/28/2021 Orders Only [facility] Eliud Duque MD [address] [place] [address] [place], [place] [phone] (Wo rk) Social History Tobacco Use [...] 03/29/2021 Unless otherwise specified, test(s) performed at: [facility], [address] [place] [address], [place], [place] [id number] EMBOSSING PRESS OPERATOR MOLDED GOODS: Vicente Flores M.D., Ph.D For any questions, please call customer service at FREQUENCY:OTHER Resulting Agency Comment Specimen source: Serum Eliud Duque MD LAB BLOOD ORDERABLES Performing Organization Address City/State/ZIP Code Phon e Number [facility] documented in this encounter Visit Diagnoses Not on filedocumented in this encounter Care Teams Tick Eradicator Relationship Specialty Start Date End Date Fabian Arias MD PCP - General Family Medicine 09/04/[address] [place] [address] documented as of this encounter
--- OUTSIDE RECORDS SUMMARY | 2022-05-06 02:03 | XMS_ITS | Encounter Summary ---
:1940 Author Organization [facility] Address [address] [place] [address] Care Team Providers Name Role Phone Fabian Arias MD Primary Care Provider Encounter Details Date Type Department Care Team Description 05/17/2021 Treatment [facility] Landon Zarate MD [address] [place] [address] [place], [place] [phone] (Wo rk) Social History Tobacco Use Types Packs/Day Years Used Date Smoking Tobacco: Never Assessed Sex Assigned at Date Recorded Not on file documented as of this encounter Miscellaneous Notes Dialysis Note - Landon Calvert MD - 05/17/2021 11:31 AM CST Date: May 17, 2021 Patient Name: Zamzam Garibay : 1940 Chart #: [id number] Sex: F This patient was personally seen [...] AM ) BP (sit): 134/76 AP(-) / METAL FORGER'S ASSISTANT: 201/140 Pulse: 84 Chairside data as of [...] 0.75 mcg ORAL Every Treatment 05/08/2021 05/07/2022 INSERTING MACHINE OPERATOR: Landon Calvert MD LOCATION: [phone] SCHEDULE: - 2nd Shift ACCESS: EDW: kg. [...] HD. 04/26/21: She was hospitalized briefly at [facility] for dyspnea, no pneumonia but rather related to CHF. She saw cardiology in follow-up in clinic, lisinopril and metoprolol and lasix with UF on HD to dry weight recommended. She is not interested in home dialysis, discussed today. 04/12/21: Patient new to me. She followed with [facility] in [facility], did not follow-up,crashed into dialysis [...] mouth once a day 04/12/2021 RenaPlex-D (vit b,c-bt-luyx-selen-vit d3-e) 800 mcg-12.5 mg-2,000 unit tablet Take [...] on filedocumented in this encounter Care Teams Car Wiper Relationship Specialty Start Date End Date Fabian Arias MD PCP - General Family Medicine 09/04/[address] [place] [address] documented as of this encounter
--- OUTSIDE RECORDS SUMMARY | 2022-05-06 02:03 | XMS_ITS | Encounter Summary ---
:1940 Author Organization [facility] Address [address] [place] [address] Care Team Providers Name Role Phone Fabian Arias MD Primary Care Provider Encounter Details Date Type Department Care Team Description 05/03/2021 Orders Only [facility] Landon Zarate MD [address] [place] [id number] [place], [place] [phone] (Wo rk) Social History Tobacco Use [...] MD LAB BLOOD ORDERABLES Performing Organization Address City/[facility] Phon e Number APS SPECTRA [facility] POST CHEMISTRY (05/03/2021) P athologist Signature BUN Post 10 6 - 19 APS SPECTRA Dialysis mg/dL [facility] Specimen (Source) Anatomical Collection Method Collection Time Re ceived Time Location / / Volume Laterality 05/03/2021 05/04/2021 12:3 5 PM CDT Narrative APS SPECTRA [facility] - 05/05/2021 Unless otherwise specified, test(s) performed at: [facility], [address] [place] [address] NEWSPAPER EDITOR: Carl Paula M.D. For any questions, please call customer service at FREQUENCY:MONTHLY Resulting Agency Comment Specimen source: Plasma Landon Calvert MD LAB BLOOD ORDERABLES Performing Organization Address City/[facility]/ZIP Code Phon e Number APS SPECTRA [facility] [...] 05/05/2021 Unless otherwise specified, test(s) performed at: [facility], [address] [place] [address] NEWSPAPER EDITOR: Carl Paula M.D. For any questions, [...] 05/05/2021 Unless otherwise specified, test(s) performed at: [facility], [address] [place] [address] NEWSPAPER EDITOR: Carl Paula M.D. For any questions, [...] 05/04/2021 Unless otherwise specified, test(s) performed at: [facility], [address] [place] [address] NEWSPAPER EDITOR: Carl Paula M.D. For any questions, please call customer service at FREQUENCY:MONTHLY Resulting Agency Comment Specimen source: Blood Landon Calvert MD LAB BLOOD ORDERABLES Performing Organization Address City/[facility] Phon e Number APS SPECTRA [facility] (ABNORMAL) Spectrae Chemistry (05/03/2021) P athologist Signature PTH 505 (H) 16 - 80 APS SPECTRA pg/mL [facility] Specimen (Source) Anatomical Collection Method Collection Time Re ceived Time Location / / Volume Laterality 05/03/2021 05/04/2021 9:52 AM CDT Narrative APS SPECTRA [facility] - 05/04/2021 Unless otherwise specified, test(s) performed at: [facility], [address] [place] [address] NEWSPAPER EDITOR: Carl Paula M.D. For any questions, please call customer service at FREQUENCY:MONTHLY Resulting Agency Comment Specimen source: Plasma Landon Calvert MD LAB BLOOD ORDERABLES Performing Organization Address City/State/ZIP [facility] Phon e Number APS SPECTRA [facility] documented in this encounter Visit Diagnoses Not on filedocumented in this encounter Care Teams Social Media Marketer Relationship Specialty Start Date End Date Fabian Arias MD PCP - General Family Medicine 09/04/[address] [place] [address] documented as of this encounter
--- OUTSIDE RECORDS SUMMARY | 2022-05-06 02:03 | XMS_ITS | Encounter Summary ---
:1940 Author Organization [facility] Address [address] [place] [address] Phone Care Team Providers Name Role Phone Fabian Arias MD Primary Care Provider Encounter Details Date Type Department Care Team Description 04/01/2021 Orders Only [facility] Eliud Duque MD [address] [address] [place], [place] [phone] (Wo rk) Social History Tobacco Use [...] 04/04/2021 Unless otherwise specified, test(s) performed at: [facility], [address] [place] [address] Rd, [place], [place] [address] MATERNAL FETAL PHYSICIAN: Vicente Flores M.D., Ph.D For any questions, please call customer service at FREQUENCY:OTHER Resulting Agency Comment Specimen source: Blood Eliud Duque MD LAB BLOOD ORDERABLES Performing Organization Address City/State/ZIP Code Phon e Number APS SPECTRA [facility]X documented in this encounter Visit Diagnoses Not on filedocumented in this encounter Care Teams Bulb Weeder Relationship Specialty Start Date End Date Fabian Arias MD PCP - General Family Medicine 09/04/[address] [place] [address] documented as of this encounter
--- OUTSIDE RECORDS SUMMARY | 2022-05-06 02:03 | XMS_ITS | Encounter Summary ---
:1940 Author Organization [facility] Address [address] [place] [address] Phone Care Team Providers Name Role Phone Fabian Arias MD Primary Care Provider Encounter Details Date Type Department Care Team Description 12/06/2017 Treatment [facility] Ramirez Duffy MD [address] [place] [address] [place], [place] [phone] (Wo rk) Social History Tobacco Use Types Packs/Day Years Used Date Smoking Tobacco: Never Assessed Sex Assigned at Date Recorded Not on file documented as of this encounter Miscellaneous Notes Office Communication Note - Ramirez Duffy MD - 12/06/2017 1:04 PM CDT Patient Name: Zamzam Garibay : 1940 Chart #: [id number] Date: Dec 06, 2017 Office Communication removed by avtar without comment on Dec 13 2017 10:22:56:750A. Office Communication FROM: Ramirez Duffy MD TO: Starla Gallo SUBJECT: Cindi Garibay ([id number]) This pt does not seem to have f/u appointment Ramirez Duffy MD [ Signed And locked electronically On 12/06/2017 at 01:04:27 PM ] Transcribed: Ramirez Duffy MD ( 12/06/2017 ) documented in this encounter Plan of Treatment Not on filedocumented as of this encounter Visit Diagnoses Not on filedocumented in this encounter Care Teams Costume Rental Clerk Relationship Specialty Start Date End Date Fabian Arias MD PCP - General Family Medicine 09/04/[address] [place] [address] documented as of this encounter
--- OUTSIDE RECORDS SUMMARY | 2022-05-06 02:03 | XMS_ITS | Encounter Summary ---
:1940 Author Organization [facility] Address [address] [place] [address] Phone Care Team Providers Name Role Phone Fabian Arias MD Primary Care Provider Encounter Details Date Type Department Care Team Description 08/05/2020 Orders Only [facility] [address] [place] [address] Social History Tobacco Use Types Packs/Day Years Used Date Smoking Tobacco: Smoker, Current Cigarettes Started: 07/01/1976 Status Unknown Sex Assigned at Date Recorded Not on file documented as of this encounter Plan of Treatment Not on filedocumented as of this encounter Visit Diagnoses Not on filedocumented in this encounter Care Teams Hydraulic Controls Technician Relationship Specialty Start Date End Date Fabian Arias MD PCP - General Family Medicine 09/04/[address] [place] [address] documented as of this encounter
--- OUTSIDE RECORDS SUMMARY | 2022-05-06 02:03 | XMS_ITS | Encounter Summary ---
:1940 Author Organization [facility] Address [address] [place] [address] Phone Care Team Providers Name Role Phone Fabian Arias MD Primary Care Provider Encounter Details Date Type Department Care Team Description 09/20/2016 Treatment [facility] Provider, Aps External [address] [place] [address] Social History Tobacco Use Types Packs/Day Years Used Date Smoking Tobacco: Never Assessed Sex Assigned at Date Recorded Not on file documented as of this encounter Miscellaneous Notes External Note - Aps External Provider - 09/20/2016 12:00 AM CDT Patient Name: Zamzam Garibay : 1940 Chart #: [id number] Date: Sep 20, 2016 09/20/2016 Height: 5 ft 3 in Weight: 121.6 lbs BMI: 21.5 Temperature: 98 F Blood Pressure: 150/90 mm Hg (Left Arm Sitting) Pulse: Left radial Sitting at 88 bpm Chel Dennis [ Signed And locked electronically On 09/20/2016 at 10:49:25 AM ] Transcribed: Gabriella Jimenez Cath Lab Nurse ( 09/20/2016 ) documented in this encounter Plan of Treatment Not on filedocumented as of this encounter Visit Diagnoses Not on filedocumented in this encounter Care Teams Streets And Buildings Decorator Relationship Specialty Start Date End Date Fabian Arias MD PCP - General Family Medicine 09/04/[address] [place] [address] documented as of this encounter
--- OUTSIDE RECORDS SUMMARY | 2022-05-06 02:03 | XMS_ITS | Encounter Summary ---
:1940 Author Organization [facility] Address [address] [place] [address] Phone Care Team Providers Name Role Phone Fabian Arias MD Primary Care Provider Encounter Details Date Type Department Care Team Description 12/04/2020 Orders Only [facility] ReeceRobert Chronic kidne y disease, Stage V (HCC); Consultants MD Dinesh Stage 5 chronic kidney disease (HCC); [address] Essential (primary) hypertension; [place] [address] [place] [place], [place] Anemia in chronic kidney dis ease; [place] [address] Secondary hyperparathyroidism of renal o rigin ([facility]) [phone] Social History Tobacco Use Types Packs/Day Years [...] rigin documented in this encounter Care Teams Collar Cutter Relationship Specialty Start Date End Date Fabian Arias MD PCP - General Family Medicine 09/04/[address] [place] [address] documented as of this encounter
--- OUTSIDE RECORDS SUMMARY | 2022-05-06 02:03 | XMS_ITS | Encounter Summary ---
:1940 Author Organization [facility] Address [address] [place] [address] Phone Care Team Providers Name Role Phone Fabian Arias MD Primary Care Provider Encounter Details Date Type Department Care Team Description 03/09/2021 Orders Only [facility] Eliud Duque MD [address] [place] [address] [place], [place] [phone] (Wo rk) Social History Tobacco Use [...] and its performa nce characteristics determined by [facility]. It has not been cleared or approved [...] 03/20/2021 Unless otherwise specified, test(s) performed at: [facility], [address] [place], [place] [address], [place] [address] COMPUTER SECURITY MANAGER: Vicente Flores M.D., Ph.D For any questions, please call customer service at FREQUENCY:MONTHLY Resulting Agency Comment Specimen source: Serum Eliud Duque MD LAB BLOOD ORDERABLES Performing Organization Address City/State/ZIP Code Phon e Number APS SPECTRA DAFTX documented in this encounter Visit Diagnoses Not on filedocumented in this encounter Care Teams Forensic Structural Engineer Relationship Specialty Start Date End Date Fabian Arias MD PCP - General Family Medicine 09/04/[address] [place] [address] documented as of this encounter
--- OUTSIDE RECORDS SUMMARY | 2022-05-06 02:03 | XMS_ITS | Encounter Summary ---
:1940 Author Organization [facility] Address [address] [place] [address] Phone Care Team Providers Name Role Phone Fabian Arias MD Primary Care Provider Encounter Details Date Type Department Care Team Description 03/16/2021 Treatment [facility] Yomi Dalal APN [address] [place] [address] [place], [place] [phone] (Wo rk) Social History Tobacco Use Types Packs/Day Years Used Date Smoking Tobacco: Smoker, Current Cigarettes Started: 07/01/1976 Status Unknown Sex Assigned at Date Recorded Not on file documented as of this encounter Miscellaneous Notes Dialysis Note - Yomi Dalal APN - 03/16/2021 11:42 AM CDT Patient Name: Zamzam Garibay : 1940 Chart #: [id number] Date: Mar 16, 2021 The patient was seen on dialysis rounds at 11:42 AM. A review of the dialysis treatment, blood pressure, estimated dry weight and recent lab values was made. These were discussed with the patient and dialysis staff. LEAF CONDITIONER: LOCATION: SCHEDULE: Vascular Access Surveillance: [facility] Peripheral [...] on filedocumented in this encounter Care Teams Data Modeling Specialist Relationship Specialty Start Date End Date Fabian Arias MD PCP - General Family Medicine 09/04/[address] [place] [address] documented as of this encounter
--- OUTSIDE RECORDS SUMMARY | 2022-05-06 02:03 | XMS_ITS | Encounter Summary ---
:1940 Author Organization [facility] Address [address] [place] [address] Care Team Providers Name Role Phone Fabian Arias MD Primary Care Provider Encounter Details Date Type Department Care Team Description 04/12/2021 Orders Only [facility] f Landon Zarate MD [address] [place] [address] [place], [place] [phone] (Wo rk) Social History Tobacco Use [...] 04/13/2021 Unless otherwise specified, test(s) performed at: [facility], [address] [place] [address] SHOTWELD OPERATOR: Carl Paula M.D. For any questions, please call customer service at FREQUENCY:OTHER Resulting Agency Comment Specimen source: Blood Landon Calvert MD LAB BLOOD ORDERABLES Performing Organization Address City/State/ZIP Code Phon e Number APS SPECTRA [facility] documented in this encounter Visit Diagnoses Not on filedocumented in this encounter Care Teams Paper Folder Relationship Specialty Start Date End Date Fabian Arias MD PCP - General Family Medicine 09/04/[address] [place] [address] documented as of this encounter
--- OUTSIDE RECORDS SUMMARY | 2022-05-06 02:03 | XMS_ITS | Encounter Summary ---
:1940 Author Organization [facility] Address [address] [place] [address] Phone Care Team Providers Name Role Phone Fabian Arias MD Primary Care Provider Reason for Referral Consultation (Routine) - Closed Specialty Diagnoses / Procedures Referred By Contact Refer red To Contact Nephrology Diagnoses Chronic kidney disease, Stage V (HCC) Fabian Arias MD Kennedy, Shane W, MD [address] [place] [phone] Referral ID Status Reason Start Date Expiration Date Visits V isits Requested Authorized [id number] Closed Consult and 07/29/2020 11/25/2020 4 4 Treat [facility] SUPPORT C[facility] DIRECTOR Encounter Details Date Type Department Care Team Description 08/05/2020 Transcribe Orders [facility] MD Fabian disease, Stage V [address] (HCC) (Primary Dx) [place], [place] [address] [address] [address] [place] [address] Social History Tobacco Use Types [...] V documented in this encounter Care Teams Marketing Administrative Assistant Relationship Specialty Start Date End Date Fabian Arias MD PCP - General Family Medicine 09/04/[address] [place] [address] documented as of this encounter
--- OUTSIDE RECORDS SUMMARY | 2022-05-06 02:03 | XMS_ITS | Encounter Summary ---
:1940 Author Organization [facility] Address [address] [place] [address] Phone Care Team Providers Name Role Phone Fabian Arias MD Primary Care Provider Encounter Details Date Type Department Care Team Description 03/09/2021 Treatment [facility] Robert Newell MD [address] [address] [place], [place] [phone] (Wo rk) Social History Tobacco Use Types Packs/Day Years Used Date Smoking Tobacco: Smoker, Current Cigarettes Started: 07/01/1976 Status Unknown Sex Assigned at Date Recorded Not on file documented as of this encounter Plan of Treatment Not on filedocumented as of this encounter Visit Diagnoses Not on filedocumented in this encounter Care Teams Operational Risk Consultant Relationship Specialty Start Date End Date Fabian Arias MD PCP - General Family Medicine 09/04/[address] [place] [address] documented as of this encounter
--- OUTSIDE RECORDS SUMMARY | 2022-05-06 02:03 | XMS_ITS | Encounter Summary ---
:1940 Author Organization [facility] Address [address] [place] [address] Care Team Providers Name Role Phone Fabian Arias MD Primary Care Provider Encounter Details Date Type Department Care Team Description 05/10/2021 Orders Only [facility] f Landon Zarate MD [address] [place] [address] [place], [place] [phone] (Wo rk) Social History Tobacco Use [...] / Volume Laterality 05/10/2021 05/11/2021 9:50 PM CHARGING CRANE OPERATOR Narrative APS SPECTRA [facility] - 05/12/2021 Unless otherwise specified, test(s) performed at: [facility], [address] [place] [address] PAINT STOCKMAN: Carl Paula M.D. For any questions, please call customer service at FREQUENCY:OTHER Resulting Agency Comment Specimen source: Blood Landon Calvert MD LAB BLOOD ORDERABLES Performing Organization Address City/[facility] Phon e Number APS SPECTRA [facility] Spectrae Chemistry (05/10/2021) P athologist Signature Ferritin 250 10 - 291 APS SPECTRA ng/mL [facility] Specimen (Source) Anatomical Collection Method Collection Time Re ceived Time Location / / Volume Laterality 05/10/2021 05/11/2021 11:5 5 PM CHARGING CRANE OPERATOR Narrative APS SPECTRA [facility] - 05/12/2021 Unless otherwise specified, test(s) performed at: [facility], [address] [place] [address] PAINT STOCKMAN: Carl Paula M.D. For any questions, please call customer service at FREQUENCY:OTHER Resulting Agency Comment Specimen source: Serum Landon Calvert MD LAB BLOOD ORDERABLES Performing Organization Address City/[facility] Phon e Number APS SPECTRA [facility] documented in this encounter Visit Diagnoses Not on filedocumented in this encounter Care Teams State Editor Relationship Specialty Start Date End Date Fabian Arias MD PCP - General Family Medicine 09/04/[address] [place] [address] documented as of this encounter
--- OUTSIDE RECORDS SUMMARY | 2022-05-06 02:03 | XMS_ITS | Encounter Summary ---
:1940 Author Organization [facility] Address [address] [place] [address] Phone Care Team Providers Name Role Phone Fabian Arias MD Primary Care Provider Encounter Details Date Type Department Care Team Description 03/16/2021 Orders Only [facility] Eliud Duque MD [address] [address] [place], [place] [phone] (Wo rk) Social History Tobacco Use [...] 03/20/2021 Unless otherwise specified, test(s) performed at: [facility], [address] [place] [address], [place] [address] MANAGER STRATEGIC: Vicente Flores M.D., Ph.D For any questions, please call customer service at FREQUENCY:MONTHLY Resulting Agency Comment Specimen source: Plasma Eliud Duque MD LAB BLOOD ORDERABLES Performing Organization Address City/State/ZIP Code Phon e Number APS SPECTRA [facility] TRACE ELEMENTS (03/16/2021) athologist Signature Aluminum <5 0 - 10 APS SPECTRA mcg/L [facility] Comment: This test was developed and its performa nce characteristics determined by [facility]. It has not been cleared or approved [...] 03/21/2021 Unless otherwise specified, test(s) performed at: [facility], [address] [place] [address], [place] [address] MANAGER STRATEGIC: Vicente Flores M.D., Ph.D For any questions, please call customer service at FREQUENCY:MONTHLY Resulting Agency Comment Specimen source: Serum Eliud Duque MD LAB BLOOD ORDERABLES Performing Organization Address City/[facility] Phon e Number APS SPECTRA DAFTX (ABNORMAL) [...] 03/22/2021 Unless otherwise specified, test(s) performed at: [facility], [address] [place] [address], [place] [address] MANAGER STRATEGIC: Vicente Flores M.D., Ph.D For any questions, please call customer service at FREQUENCY:MONTHLY Resulting Agency Comment Specimen source: Blood Eliud Duque MD LAB BLOOD ORDERABLES Performing Organization Address City/[facility] Phon e Number APS SPECTRA [facility] (ABNORMAL) Spectrae Chemistry (03/16/2021) P athologist Signature PTH 608 (H) 16 - 80 APS SPECTRA pg/mL [facility] Specimen (Source) Anatomical Collection Method Collection Time Re ceived Time Location / / Volume Laterality 03/16/2021 03/20/2021 11:2 0 AM CDT Narrative APS SPECTRA [facility] - 03/20/2021 Unless otherwise specified, test(s) performed at: [facility], [address] [place] [address], [place] [id number] MANAGER STRATEGIC: Vicente Flores M.D., Ph.D For any questions, please call customer service at FREQUENCY:MONTHLY Resulting Agency Comment Specimen source: Plasma Eliud Duque MD LAB BLOOD ORDERABLES Performing Organization Address City/[facility] Phon e Number APS SPECTRA [facility] IMMUNO [...] APS SPECTRA [facility] (ABNORMAL) Spectrae Chemistry (03/16/2021) [facility] Method Time Signature Ferritin 348 [...] 03/20/2021 Unless otherwise specified, test(s) performed at: [facility], [address] [place] [address], [place] [id number] MANAGER STRATEGIC: Vicente Flores M.D., Ph.D For any questions, please call customer service at FREQUENCY:MONTHLY Resulting Agency Comment Specimen source: Serum Eliud Duque MD LAB BLOOD ORDERABLES Performing Organization Address City/State/ZIP Code Phon e Number APS SPECTRA [facility]X documented in this encounter Visit Diagnoses Not on filedocumented in this encounter Care Teams Compliance Representative Dealer Relationship Specialty Start Date End Date Fabian Arias MD PCP - General Family Medicine 09/04/[address] [place] [address] documented as of this encounter
--- OUTSIDE RECORDS SUMMARY | 2022-05-06 02:03 | XMS_ITS | Encounter Summary ---
:1940 Author Organization [facility] Address [address] [place] [address] Phone Care Team Providers Name Role Phone Fabian Arias MD Primary Care Provider Encounter Details Date Type Department Care Team Description 02/28/2017 Treatment [facility] Cara Potts [address] [place] [address] [place], [place] [phone] (Wo rk) Social History Tobacco Use Types Packs/Day Years Used Date Smoking Tobacco: Never Assessed Sex Assigned at Date Recorded Not on file documented as of this encounter Miscellaneous Notes Clinical/Nursing Note - Cara Potts - 02/28/2017 12:00 AM CDT Patient Name: Zamzam Garibay : 1940 Chart #: [id number] Date: Feb 28, 2017 Pt called states [...] on filedocumented in this encounter Care Teams Nuclear Radiologist Relationship Specialty Start Date End Date Fabian Arias MD PCP - General Family Medicine 09/04/[address] [place] [address] documented as of this encounter
--- OUTSIDE RECORDS SUMMARY | 2022-05-06 02:03 | XMS_ITS | Encounter Summary ---
:1940 Author Organization [facility] Address [address] [place] [address] Phone Care Team Providers Name Role Phone Fabian Arias MD Primary Care Provider Encounter Details Date Type Department Care Team Description 02/21/2017 Treatment [facility] Provider, Aps External [address] [place] [address] Social History Tobacco Use Types Packs/Day Years Used Date Smoking Tobacco: Never Assessed Sex Assigned at Date Recorded Not on file documented as of this encounter Miscellaneous Notes External Note - Aps External Provider - 02/21/2017 12:00 AM CDT Patient Name: Zamzam Garibay : 1940 Chart #: [id number] Date: Feb 21, 2017 02/21/2017 Height: 5 [...] on filedocumented in this encounter Care Teams Unix System Administrator Relationship Specialty Start Date End Date Fabian Arias MD PCP - General Family Medicine 09/04/[address] [place] [address] documented as of this encounter
--- OUTSIDE RECORDS SUMMARY | 2022-05-06 02:03 | XMS_ITS | Encounter Summary ---
:1940 Author Organization [facility] Address [address] [place] [address] Phone Care Team Providers Name Role Phone Fabian Arias MD Primary Care Provider Encounter Details Date Type Department Care Team Description 06/02/2020 Treatment [facility] Kaia Chavez [address] [place] [address] [place], [place] [phone] (Wo rk) Social History Tobacco Use Types Packs/Day Years Used Date Smoking Tobacco: Never Assessed Sex Assigned at Date Recorded Not on file documented as of this encounter Miscellaneous Notes External Note - Kaia Chavez - 06/02/2020 12:00 AM CST Patient Name: Zamzam Garibay : 1940 Chart #: [id number] Date: Jun 02, 2020 06/02/2020 Height: 5 [...] on filedocumented in this encounter Care Teams Administrative Receptionist Relationship Specialty Start Date End Date Fabian Arias MD PCP - General Family Medicine 09/04/[address] [place] [phone] documented as of this encounter
--- OUTSIDE RECORDS SUMMARY | 2022-05-06 02:03 | XMS_ITS | Encounter Summary ---
:1940 Author Organization [facility] Address [address] [place] [address] Phone Care Team Providers Name Role Phone Fabian Arias MD Primary Care Provider Encounter Details Date Type Department Care Team Description 03/28/2021 Treatment [facility] Yomi Dalal, CAR DUMPER OPERATOR [address] [place] [address] [place] [phone] (Wo rk) Social History Tobacco Use Types Packs/Day Years Used Date Smoking Tobacco: Never Assessed Sex Assigned at Date Recorded Not on file documented as of this encounter Miscellaneous Notes Dialysis Note - Yomi Dalal APN - 03/28/2021 12:51 PM CDT Patient Name: Zamzam Garibay : 1940 Chart #: [id number] Date: Mar 28, 2021 The patient was seen on dialysis rounds at 12:51 PM. A review of the following core parameters of the dialysis treatment was made. The dialysis prescription was reviewed and renewed as noted below. Dialysis Prescription Review TIMBER TRIMMER: LOCATION: SCHEDULE: Vascular Access Surveillance: [facility] Peripheral Arterial Disease Screening Dialysis Adequacy Assessment [...] on filedocumented in this encounter Care Teams Shoe Folder Relationship Specialty Start Date End Date Fbaian Arias MD PCP - General Family Medicine 09/04/[address] [place] [address] documented as of this encounter
--- OUTSIDE RECORDS SUMMARY | 2022-05-06 02:03 | XMS_ITS | Encounter Summary ---
:1940 Author Organization [facility] Address [address] [place] [address] Care Team Providers Name Role Phone Fabian Arias MD Primary Care Provider Encounter Details Date Type Department Care Team Description 05/31/2021 [facility] Landon Zarate MD [address] [place] [address] [place], [place] [phone] (Wo rk) Social History Tobacco Use [...] / Volume Laterality 05/31/2021 06/01/2021 4:15 PM REGULATORY AFFAIRS INTERN Resulting Agency Comment Specimen source: Serum Landon Calvert MD LAB BLOOD ORDERABLES Performing Organization Address City/[facility]/ZIP Code Phon e Number [facility] POST CHEMISTRY (05/31/2021) athologist Signature BUN Post 11 6 - 19 [facility] Dialysis mg/dL [facility] Specimen (Source) Anatomical Collection Method Collection Time Re ceived Time Location / / Volume Laterality 05/31/2021 06/01/2021 3:58 PM REGULATORY AFFAIRS INTERN Narrative [facility] - 06/02/2021 Unless otherwise specified, test(s) performed at: [facility], [address] [place] [address] PRODUCTION MACHINE TENDER: Carl Paula M.D. For any questions, please call customer service at FREQUENCY:MONTHLY Resulting Agency Comment Specimen source: Plasma Landon aClvert MD LAB BLOOD ORDERABLES Performing Organization Address [...] / Volume Laterality 05/31/2021 06/01/2021 4:08 PM REGULATORY AFFAIRS INTERN Narrative [facility] - 06/01/2021 Unless otherwise specified, test(s) performed at: [facility], [address] [place] [address] PRODUCTION MACHINE TENDER: Carl Paula M.D. For any questions, please call customer service at FREQUENCY:MONTHLY Resulting Agency Comment Specimen source: Serum Landon Calvert MD LAB BLOOD ORDERABLES Performing Organization Address City/State/ZIP Code Phon e Number [facility] (ABNORMAL) Spectrae Chemistry (05/31/2021) [facility] gist Method Time Signature BUN 64 [...] / Volume Laterality 05/31/2021 06/01/2021 4:08 PM REGULATORY AFFAIRS INTERN Narrative [facility] - 06/01/2021 Unless otherwise specified, test(s) performed at: [facility], [address] [place], [place] [id number] PRODUCTION MACHINE TENDER: Carl Paula M.D. For any questions, [...] / Volume Laterality 05/31/2021 06/01/2021 9:49 AM REGULATORY AFFAIRS INTERN Narrative [facility] - 06/01/2021 Unless otherwise specified, test(s) performed at: [facility], [address] [place] [address] PRODUCTION MACHINE TENDER: Carl Paula M.D. For any questions, please call customer service at FREQUENCY:MONTHLY Resulting Agency Comment Specimen source: Plasma Landon Calvert MD LAB BLOOD ORDERABLES Performing Organization Address City/[facility] Code Phon e Number [...] / Volume Laterality 05/31/2021 06/01/2021 9:49 AM REGULATORY AFFAIRS INTERN Narrative [facility] - 06/01/2021 Unless otherwise specified, test(s) performed at: [facility], [address] [place] [address] PRODUCTION MACHINE TENDER: Carl Paula M.D. For any questions, please call customer service at FREQUENCY:MONTHLY Resulting Agency Comment Specimen source: Blood Landon Calvert MD LAB BLOOD ORDERABLES Performing Organization Address City/[facility] Phon e Number [facility]RA [facility] documented in this encounter Visit Diagnoses Not on filedocumented in this encounter Care Teams Grinding Operator Relationship Specialty Start Date End Date Fabian Arias MD PCP - General Family Medicine 09/04/[address] [place] [address] documented as of this encounter
--- OUTSIDE RECORDS SUMMARY | 2022-05-06 02:03 | XMS_ITS | Encounter Summary ---
:1940 Author Organization [facility] Address [address] [place] [address] Care Team Providers Name Role Phone Fabian Arias MD Primary Care Provider Encounter Details Date Type Department Care Team Description 04/26/2021 [facility] f Landon Zarate MD [address] [place] [address] [place], [place] [phone] (Wo rk) Social History Tobacco Use [...] 04/27/2021 Unless otherwise specified, test(s) performed at: [facility], [address] [place] [address] COREMAKER: Carl Paula M.D. For any questions, please call customer service at FREQUENCY:OTHER Resulting Agency Comment Specimen source: Blood Landon Calvert MD LAB BLOOD ORDERABLES Performing Organization Address City/State/ZIP Code Phon e Number [facility] documented in this encounter Visit Diagnoses Not on filedocumented in this encounter Care Teams General Operator Relationship Specialty Start Date End Date Fabian Arias MD PCP - General Family Medicine 09/04/[address] [place] [address] documented as of this encounter
--- OUTSIDE RECORDS SUMMARY | 2022-05-06 02:03 | XMS_ITS | Encounter Summary ---
:1940 Author Organization [facility] Address [address] [place] [address] Phone Care Team Providers Name Role Phone Fabian Arias MD Primary Care Provider Encounter Details Date Type Department Care Team Description 10/28/2019 Treatment [facility] Provider, Yung External [address] [place] [address] Social History Tobacco Use Types Packs/Day Years Used Date Smoking Tobacco: Never Assessed Sex Assigned at Date Recorded Not on file documented as of this encounter Miscellaneous Notes External Note - Aps External Provider - 10/28/2019 12:00 AM CDT Patient Name: Zamzam Garibay : 1940 Chart #: [id number] Date: Oct 28, 2019 10/28/2019 Height: 5 ft 3 in Weight: 104.6 lbs BMI: 18.5 Temperature: 96.7 F Blood Pressure: 138/80 mm Hg (Right Arm Sitting) 136/80 mm Hg (Right Arm Standing) Pulse: Right radial Sitting at 64 bpm Oxygen Saturation: 100% (Left Hand) Oxygen Delivery: Room Air Ceci Santos Family Protection Specialist [ Signed And locked electronically On 10/28/2019 at 01:11:34 PM ] Transcribed: Ceci Santos Family Protection Specialist ( 10/28/2019 ) documented in this encounter Plan of Treatment Not on filedocumented as of this encounter Visit Diagnoses Not on filedocumented in this encounter Care Teams Spout Worker Relationship Specialty Start Date End Date Fabian Arias MD PCP - General Family Medicine 09/04/[address] [place] [address] documented as of this encounter
--- OUTSIDE RECORDS SUMMARY | 2022-05-06 02:03 | XMS_ITS | Encounter Summary ---
:1940 Author Organization [facility] Address [address] [place] [address] Phone Care Team Providers Name Role Phone Fabian Arias MD Primary Care Provider Encounter Details Date Type Department Care Team Description 10/30/2016 Treatment [facility] Asha Herrera [address] [place] [address] [place], [place] [phone] (Wo rk) Social History Tobacco Use Types Packs/Day Years Used Date Smoking Tobacco: Never Assessed Sex Assigned at Date Recorded Not on file documented as of this encounter Miscellaneous Notes External Note - Asha Herrera - 10/30/2016 12:00 AM CDT Patient Name: Zamzam Garibay : 1940 Chart #: [id number] Date: October 30, 2016 10/30/2016 Height: 5 [...] on filedocumented in this encounter Care Teams Customer Operations Intern Relationship Specialty Start Date End Date Fabian Arias MD PCP - General Family Medicine 09/04/[address] [place] [address] documented as of this encounter
--- OUTSIDE RECORDS SUMMARY | 2022-05-06 02:03 | XMS_ITS | Encounter Summary ---
:1940 Author Organization [facility] Address [address] [place] [address] Care Team Providers Name Role Phone Fabian Arias MD Primary Care Provider Encounter Details Date Type Department Care Team Description 04/12/2021 Treatment [facility] Landon Zarate MD [address] [place] [address] [place], [place] [phone] (Wo rk) Social History Tobacco Use Types Packs/Day Years Used Date Smoking Tobacco: Never Assessed Sex Assigned at Date Recorded Not on file documented as of this encounter Miscellaneous Notes Dialysis Note - Landon Calvert MD - 04/12/2021 11:33 AM CDT Date: Apr 12, 2021 Patient Name: Zamzam Garibay : 1940 Chart #: [id number] Sex: F This patient was personally seen [...] AM ) BP (sit): 121/60 AP(-) / BILINGUAL MANAGER: 178/122 Pulse: 78 Chairside data as of [...] 04:00 Actual Treatment Time 04:05 03:57 04:03 SECTION PLOTTER OPERATOR: Landon Calvert MD LOCATION: [place] [phone] SCHEDULE: -- 2nd Shift EDW: kg. DIALYZER: HD DURATION: NEEDLE SIZE: ANTICOAG: BATH: QB: ml/min QD: ml/min Subjective 04/12/21: Patient new to me. She followed with environmental services project manager in [facility], did not follow-up,crashed [...] above goal. Intact PTH is above goal. Beef Grinder will adjust binders and vitamin D per [...] doing exercises She will get PCP at [facility] CHF - I would like to do TTE after establishing PCP given hx of CHF, unclear history as she reports no OR or stents or heart surgeries previously. I [...] Name: Zamzam Garibay : 1940 Chart #: [id number] Sex: F Patient Type: ESRD Modality: Hemodialysis Aviation Technician: Landon Calvert MD Location: [place] [phone] Schedule: M-W-F 2nd Shift Initial Access Date [...] on filedocumented in this encounter Care Teams Software Design Analyst Relationship Specialty Start Date End Date Fabian Arias MD PCP - General Family Medicine 09/04/[address] [place] [address] documented as of this encounter
--- OUTSIDE RECORDS SUMMARY | 2022-05-06 02:03 | XMS_ITS | Encounter Summary ---
:1940 Author Organization [facility] Address [address] [place] [address] Care Team Providers Name Role Phone Fabian Arias MD Primary Care Provider Encounter Details Date Type Department Care Team Description 05/24/2021 [facility] O f Landon Zarate MD [address] [place] [address] [place], [place] [phone] (Wo rk) Social History Tobacco Use [...] Volume Laterality 05/24/2021 05/26/2021 10:5 5 AM CNC MAINTENANCE MECHANIC Narrative [facility] - 05/26/2021 Unless otherwise specified, test(s) performed at: [facility], [address] [place] [address] GLUE PLANT OPERATOR: Carl Paula M.D. For any questions, please call customer service at FREQUENCY:OTHER Resulting Agency Comment Specimen source: Blood Landon Calvert MD LAB BLOOD ORDERABLES Performing Organization Address City/State/ZIP Code Phon e Number [facility]PS [facility] documented in this encounter Visit Diagnoses Not on filedocumented in this encounter Care Teams Sales Trader Relationship Specialty Start Date End Date Fabian Arias MD PCP - General Family Medicine 09/04/[address] [place] [address] documented as of this encounter
--- OUTSIDE RECORDS SUMMARY | 2022-05-06 02:04 | XMS_ITS | Encounter Summary ---
:1940 Author Organization [facility] Address [address] [place] [address] Care Team Providers Name Role Phone Louis [...] on filedocumented in this encounter Care Teams Grain Thresher Relationship Specialty Start Date End Date Louis Reyes MD PCP - General 01/30/221999 [place] [address] Clinic, Not Listed PCP - Primary Care Clinic 01/30/22 documented as of this encounter
--- OUTSIDE RECORDS SUMMARY | 2022-05-06 02:04 | XMS_ITS | Encounter Summary ---
:1940 Author Organization [facility] Address [address] [place] [address] Care Team Providers Name Role Phone Louis Reyes MD Primary Care Provider Clinic, Not Listed Unavailable Unavailable Encounter Details Date Type Department Care Team Description 04/27/2022 Travel Social History Tobacco Use Types Packs/Day Years Used Date Smoking Tobacco: Every Day Smokeless Tobacco: Never Alcohol Use Standard Drinks/Week Comments Never 0 (1 standard drink = 0.6 oz pure alcoho l) Sex Assigned at Date Recorded Not on file COVID-19 Exposure Response Date Recorded In the last 10 days, have you been in contact with No / Unsu re 04/27/2022 8:42 AM CDT someone who was confirmed or suspected to have Coronavirus/COVID-19? documented as of this encounter Plan of Treatment Not on filedocumented as of this encounter Visit Diagnoses Not on filedocumented in this encounter Care Teams Vocational Childcare Teacher Relationship Specialty Start Date End Date Louis Reyes MD PCP - General 01/30/221999 [place] [address] Clinic, Not Listed PCP - Primary Care Clinic 01/30/22 documented as of this encounter
--- OUTSIDE RECORDS SUMMARY | 2022-05-06 02:04 | XMS_ITS | Encounter Summary ---
:1940 Author Organization [facility] Address [address] [place] [address] Care Team Providers Name Role Phone Louis Reyes MD Primary Care Provider Clinic, Not Listed Unavailable Unavailable Reason for Visit Inpatient Admission Specialty Diagnoses / Procedures Referred By Contact Refer red To Contact Diagnoses dx. endstage renal disease Procedures ANASTOMOSIS,AV,ANY SITE RIGHT UPPER GRAFT VERSUS SECOND STAGE FISTULA Referral ID Status Reason Start Date Expiration Date Visits Requ ested Visits Authorized [id number] 1 1 Encounter Details Date Type Department Care Team Description 04/27/2022 Surgery [facility] Trinity Cardenas MD [facility] [address] [place] CHIOCEPHALIC FISTULA Room 20 [address] [place], [place] [id number] [place] [address] [phone] Surgery Details Date/Time Status Location OR Service Patient Case Case Traum a Class Class Type Case? 04/27/22 Posted [facility] ORS 05 Cardiothoracic Same Day 10:15 AM Surgery Panel 1 Procedure LRB Anes Op Region Wound Class Commen ts RIGHT SECOND STAGE BRACHIOCEPHALIC Right General Arm, upper C lean (I) FISTULA Surgeon Surgeon Role Service Panel Sonya Cardenas MD Primary Cardiothoracic 1 documented in this encounter Social History Tobacco Use Types Packs/Day Years [...] Sign Reading Time Taken Comments Blood Pressure 149/69 04/27/2022 8:25 AM CDT Pulse 64 04/27/2022 8:25 AM CDT Temperature 36.4 ??C (97.6 ??F) 04/27/2022 8:25 AM CDT Respiratory Rate 16 04/27/2022 8:25 AM CDT Oxygen Saturation 96% 04/27/2022 8:25 AM CDT Inhaled Oxygen Concentration - - Weight 54 kg (119 lb) 04/27/2022 8:43 AM CDT Height 160 cm (5' 3) 04/27/2022 8:43 AM CDT Body Mass Index 21.08 04/27/2022 8:43 AM CDT documented in this encounter Medications at Time of Discharge Medication Sig Dispensed Refills Start Date End Date calcium acetate, phosphate TAKE 2 CAPSULES BY 0 0 11/17/2021 binders, (PHOSLO) 667 mg MOUTH THREE TIMES oral capsule DAILY WITH MEALS AND 1 CAPSULE TWO TIMES DAILY WITH SNACKS Cholecalciferol, Vitamin Take 1 tablet by 0 D3, 50 mcg (2,000 unit) mouth. oral capsule furosemide (LASIX) 80 mg Take 80 mg by mouth 0 oral tablet twice a day. HYDROmorphone (DILAUDID) 2 Take 1 tablet (2 mg) 10 tablet 0 04/27/2022 mg oral tablet by mouth every 4 (four) hours as needed for pain. lisinopriL (PRINIVIL) 2.5 Take 2.5 mg by mouth 0 12/16/2021 mg oral tablet once daily. metoprolol succinate, XL, 0 12/19/2021 (TOPROL XL) 25 mg oral extended release tablet 24 HR omeprazole (PRILOSEC) 20 Take by mouth Daily. 0 0 09/06/2021 mg oral delayed release capsule documented as of this encounter Nursing Notes Miguel A Cruz RN - 04/27/2022 4:40 PM CDT Cindi Garibay 1940 [id number] P: Discharge A: Discharged via wheelchair to home escorted by nurse I: Discharge information and arrangements included: review of written discharge instructions, all belongings returned back to pt, x1 rx given to pt's grand daughter. Contact the pt @ home for post procedure call. Ok to leave message? Yes R:Patient, granddaughter expressed understanding of information.. Fawn Sauer RN - 04/27/2022 12:52 PM CDT Report called to phase 2. Pt is awake and is oriented to self and situation. Pt did wake up confused, but has cleared with time and O2. Pt now VSS, RA 95%. Denies pain/nausea. and BEATRICE at bedside to assess pt post op. Good CMS to RUE. Pt transported to phase 2 with NA on cart with chart and Rx. documented in this encounter OR Notes Brief Op Note - Sonya Cardenas MD - 04/27/2022 3:28 PM CDT Date: 04/27/22 Surgeon: Theresa EBL: 50 cc Pre-procedure diagnosis: ESRD Post-procedure diagnosis: same Procedure: Right 2nd stage brachiobasilic Complications:None Anesthesia: Started out MAC however patient had coughing episode with thick mucus, converted to general. Post op: Dilaudid RX for pain Continue to use PCAD for dialysis Follow up at [facility] in 3 weeks Sonya Cardenas MD [facility] documented in this encounter Plan of Treatment Not on filedocumented as of this encounter Procedures Procedure Name Priority Date/Time Associated Diagnosis Comme nts CREATION: ROSA 04/27/2022 11:47 AM dx. endstage jennifer al BASILIC A-V FISTULA CDT disease FIRST/SECOND STAGE SARS-COV-2 BY RAPID STAT 04/27/2022 9:09 AM Re sults for this PCR CDT procedure are i n the results section. BASIC METAB PROFILE STAT 04/27/2022 8:56 AM Re sults for this CDT procedure are i n the results section. documented in this encounter Results COVID-19 (Screening) (04/27/2022 9:09 AM CDT) [facility] Time Signature SARS-CoV-2 by Negative for Negative CEPHEID 04/27/2022 [place] PCR SARS-CoV-2 for INFINITY 9:51 AM T [facility] RNA by PCR SARS-CoV-2 ANALYZER [facility] RNA by PCR LABORATORY Specimen Anatomical Collection Method Collection Time Receive d Time (Source) Location / / Volume Laterality Site-Microbiolog 04/27/2022 9:09 AM 04/27 9:14 y CDT AM CDT Sonya Cardenas MD MICROBIOLOGY ORDERABLE Performing Organization Address City/State/ZIP Code Phon e Number [facility] [address] [place] [address] LABORATORY (ABNORMAL) Basic Metabolic Profile (04/27/2022 8:56 AM CDT) [facility] Time Signature SODIUM 141 136 - 145 [facility] 04/27/2022 [facility] mmol/L ANALYZER 9:28 AM [facility] LABORATORY POTASSIUM 4.9 3.4 - 5.1 [place] 04/27/2022 [facility] mmol/L ANALYZER 9:28 AM [facility] LABORATORY CHLORIDE 100 98 - 108 [facility] 04/27/2022 [facility] mmol/L ANALYZER 9:28 AM [facility] LABORATORY CARBON DIOXIDE 31 20 - 31 [facility] 04/27/2022 [facility] mmol/L ANALYZER 9:28 AM [facility] LABORATORY BUN (UREA 33 (H) 9 - 23 [place] 04/27/2022 [facility] NITRO) mg/dL ANALYZER 9:28 AM [facility] LABORATORY CREATININE 5.58 (H) 0.50 - [place] 04/27/2022 [facility] 1.00 ANALYZER 9:28 AM [facility] mg/dL LABORATORY EST GFR 7.30 (L) >60.00 [facility] 04/27/2022 [facility] (CKD-EPI) mL/min/1. ANALYZER 9:28 AM [facility] 73m2 LABORATORY Comment: Calculation based on the Chroni c Kidney Disease Epidemiology Collaboration (CKD-EPI) equation refit without adjustm ent for race. GLUCOSE 94 74 - 106 [facility] 04/27/2022 9:28 [facility] mg/dL ANALYZER AM [facility] LABORATORY CALCIUM, SERUM 10.1 8.7 - 10.4 [facility] 04/27/2022 9:28 [facility] mg/dL ANALYZER AM [facility] LABORATORY ANION GAP 10.0 0.0 - 15.0 [facility] 04/27/2022 9:28 [facility] mmol/L A[facility]ER AM [facility] LABORATORY Specimen Anatomical Collection Method Collection Time Receive d Time (Source) Location / / Volume Laterality Blood BLOOD SPECIMEN / LIne - Venous / 04/27/2022 8:56 AM 9:01 Unknown Unknown CDT AM T Sp Vickers MD CHEMISTRY ORDERABLE Performing Organization Address City/State/ZIP Code Phon e Number [facility] [address] [place] [address] LABORATORY documented in this encounter Visit Diagnoses Not on filedocumented in this encounter Administered Medications Inactive Administered Medications - up to 3 most recent administrations Medication Order MAR Action Action Date Dose Rate Site saline FLUSH syringe 10 mL Given 04/27/2022 9:08 AM CDT 10 mL 10 mL, Intravenous, NEEDED, Starting on Sat04/27/22 at 0818, Until Sat04/27/22 at 1515, Pre-Op, Line Care acetaminophen (TYLENOL) rectal supposito ry 650 mg 650 mg, Rectal, THREE TIMES A DAY, First dose on Sat at 1545, Until Discontinued, Post-Op acetaminophen (TYLENOL) tablet 1,000 mg 1,000 mg, oral, THREE TIMES A DAY, First dose on Sat at 1545, Until Discontinued, Post-Op atropine syringe 0.5 mg 0.5 mg, Intravenous, NEEDED, Starting on Sat at 1455, Until Sat04/27/22 at 2054, Phase 1/2, bradycardia , for sudden bradycardia; for heart rate less than 50 bpm WITH HYPOTENSION - NOTIFY ANESTHESIOL OGIST heparin injection Given 04/27/2022 1:07 PM CDT 20 mL Proce dural INTRA-PROCEDURE NEEDED, Starting on Sat04/27/22 at 1307, Until Sat04/27/22 at 1515, Intra-Op, per procedure HYDROcodone-acetaminophen (NORCO) 5-325 mg tablet 1 tablet 1 tablet, oral, NEEDED, MAY REPEAT X1, 2 doses, Sta rting on Sat04/27/22 at 1455, Until Sat04/27/22 at 2302, Phase 1/2, Pain, when taking PO, pain while in recovery area HYDROmorphone (DILAUDID) tablet 1-2 mg 1-2 mg, oral, EVERY 6 HOURS NEEDED, S tarting on Sat04/27/22 at 1540, Until Sat04/27/22 at 2302, Post-Op, pain, when taking PO hydrOXYzine HCl (VISTARIL) injection 25 mg 25 mg, IntraMUSCULAR, ONCE NEEDED, MAY REPEAT X 1, 2 doses, Starting on Sat04/27/22 at 1455, Until Sat04/27/22 at 2302, Phase 1/ 2, for augmentation of narcotic based analgesia while in recove ry area and unable to take PO. Not to be given within the past 6 hours. hydrOXYzine pamoate (VISTARIL) capsule 2 5 mg 25 mg, oral, ONCE NEEDED, MAY REPEAT X 1, 2 doses, Starting on Sat04/27/22 at 1455, Until Sat04/27/22 at 2302, Phase 1/2, for augme ntation of narcotic based analgesia while in recovery area. Not to be used if given within the past 6 hours. lidocaine 1% injection (conc: 10 Given 04/27/2022 1:06 PM CDT 19 mL Right Arm mg/mL) INTRA-PROCEDURE NEEDED, Starting on Sat04/27/22 at 1306, Until Sat04/27/22 at 1515, Intra-Op meperidine (preservative free) (DEMEROL) syringe 12.5 mg 12.5 mg, Intravenous, EVERY 5 MINUTES NEEDED, 2 doses, Starting on Sat04/27/22 at 1455, Until Sat04/27/22 at 2302, Phase 1/2, for sh ivering, Do not user meperidine for pain control per recommendation of the [place] [employer], [place] for Safe Medication Practices (ISMP) and the [facility]. midazolam (VERSED) injection 0.5-1 mg 0.5-1 mg, Intravenous, EVERY 10 MINUTES NEEDED, 2 d oses, Starting on Sat04/27/22 at 1455, Until Sat04/27/22 at 2302, Phase 1/ 2, for restlessness naloxone (NARCAN) injection 0.1 mg 0.1 mg, Intravenous, EVERY 1 MINUTE PRN, Starting on Sat04/27/22 at 1540, Until Sat04/27/22 at 2302, Post-Op, Opiate Reversal ondansetron (ZOFRAN) injection 4 mg 4 mg, Intravenous, ONCE NEEDED, 1 dos e, Starting on Sat04/27/22 at 1455, Until Sat04/27/22 at 2302, Phase 1/2, nausea & vomiting, for nausea while in recovery area if not given within the past 6 hours. oxyCODONE (immediate release) (ROXICODONE) Given 04/27/2022 4:05 PM CDT 5 mg tablet 5 mg 5 mg, oral, NEEDED, MAY REPEAT X1, 2 doses, Starting on Sat04/27/22 at 1455, Until Sat04/27/22 at 2302, Phase 1/2, Pain, when taking PO, pain while in recovery area oxyCODONE-acetaminophen (PERCOCET) 5-325 mg tablet 1 tablet 1 tablet, oral, NEEDED, MAY REPEAT X1, 2 doses, Sta rting on Sat04/27/22 at 1455, Until Sat04/27/22 at 2302, Phase 1/2, Pain, when taking PO, pain while in recovery area documented in this encounter Active and Recently Administered Medications Times are shown in CDT. Scheduled Medication Order 04/25/2022 04/26/2022 04/27/2022 acetaminophen (TYLENOL) rectal suppository 650 mg(Linked Group 1 ) 1545 (Due) 650 mg, Rectal, THREE TIMES A DAY, First dose on Sat04/27/22 at 1545, Until Discontinued, Post-Op acetaminophen (TYLENOL) tablet 1,000 mg(Linked Group 1) 1545 (Due) 1,000 mg, oral, THREE TIMES A DAY, First dose on Sat04/27/22 at 1545, Until Discontinued, Post-Op acetaminophen (TYLENOL) tablet 500-1,000 mg 1500 (Due) 500-1,000 mg, oral, ONCE, 1 dose, On Sat04/27/22 at 1500, Phase 1/2 ceFAZolin (Ancef) 2 g IV syringe 2 g (COMPLETED) 1224 (Given - Provider: Shelby Nice) Intravenous, ONCE ON INDUCTION, 1 dose, Starting on Sat04/27/22 at 0818, Until Sat04/27/22 at 1224, Pre-Op, Administer over 3 Minutes PRN Medication Order 04/25/2022 04/26/2022 04/27/2022 saline FLUSH syringe 10 mL (CANCELED) 0908 (Given - Provider: Addie Nieto, WIN) 10 mL, Intravenous, NEEDED, Starting on Sat04/27/22 at 0818, Until Sat04/27/22 at 1515, Pre-Op, Line Care atropine syringe 0.5 mg 0.5 mg, Intravenous, NEEDED, Starting on Sat04/27/22 at 1455, Until Sat04/27/22 at 2054, Phase 1/2, bradycardia, for sudden bradycardia; for heart rate less than 50 bpm WITH HYPOTENSION - NOTIFY ANESTHESIOLOGIST heparin injection (CANCELED) 130 7 (Given - Provider: Sonya Cardenas MD - Comment: 5000 units of heparin mixed with 500ml of normal saline and used for irrigation during case. 20 ml of mixture used during case.)1415 (Canceled Entry - Provider: Shelby Nice) INTRA-PROCEDURE NEEDED, Starting on F ri 04/27/22 at 1307, Until Sat04/27/22 at 1515, Intra-Op, per procedure HYDROcodone-acetaminophen (NORCO) 5-325 mg tablet 1 tablet(Linke d Group 2) 1605 (See Alternative - Provider: Miguel A Cruz RN) 1 tablet, oral, NEEDED, MAY REPEAT X1 , 2 doses, Starting on Sat04/27/22 at 1455, Until Sat04/27/22 at 2302, Phase 1/2, Pain, when taking PO, pain while in recovery area HYDROmorphone (DILAUDID) tablet 1-2 mg 1-2 mg, oral, EVERY 6 HOURS NEEDED, S tarting on Sat04/27/22 at 1540, Until Sat04/27/22 at 2302, Post-Op, pain, when taking PO hydrOXYzine HCl (VISTARIL) injection 25 mg(Linked Group 3) 25 mg, IntraMUSCULAR, ONCE NEEDED, MA Y REPEAT X 1, 2 doses, Starting on Sat04/27/22 at 1455, Until Sat04/27/22 at 2302, Phase 1/2, for augmentation of narcotic based analgesia while in recovery are a and unable to take PO. Not to be given within the past 6 hours . hydrOXYzine pamoate (VISTARIL) capsule 25 mg(Linked Group 3) 25 mg, oral, ONCE NEEDED, MAY REPEAT X 1, 2 doses, Starting on Sat04/27/22 at 1455, Until Sat04/27/22 at 2302, Phase 1/2, for augmentation of narcotic based analgesia while in recovery area. Not to be used if given within the past 6 hours. lidocaine 1% injection (conc: 10 mg/mL) (CANCELED) 1306 (Given - Provider: Sonya Cardenas MD) INTRA-PROCEDURE NEEDED, Starting on 04/27/22 at 1306, Until Sat04/27/22 at 1515, Intra-Op meperidine (preservative free) (DEMEROL) syringe 12.5 mg 12.5 mg, Intravenous, EVERY 5 MINUTES NEEDED, 2 doses, Starting on Sat04/27/22 at 1455, Until Sat04/27/22 at 2302, Phase 1/2, for shivering, Do not user meperidine for pain control per recommendati on of the [place] [employer], [facility] Safe [facility] (ISMP) and the [facility]. midazolam (VERSED) injection 0.5-1 mg 0.5-1 mg, Intravenous, EVERY 10 MINUTES NEEDED, 2 doses, Starting on Sat04/27/22 at 1455, Until Sat04/27/22 at 2302, Phase 1/2, for restlessness naloxone (NARCAN) injection 0.1 mg 0.1 mg, Intravenous, EVERY 1 MINUTE PRN, Starting on Sat04/27/22 at 1540, Until Sat04/27/22 at 2302, Post-Op, Opiate Reversal ondansetron (ZOFRAN) injection 4 mg 4 mg, Intravenous, ONCE NEEDED, 1 dos e, Starting on Sat04/27/22 at 1455, Until Sat04/27/22 at 2302, Phase 1/2, nausea & vomiting, for nausea while in recovery area if not given within the past 6 hours. oxyCODONE (immediate release) (ROXICODONE) tablet 5 mg(Linked Gr oup 2) 1605 (Given - Provider: Miguel A Cruz RN) 5 mg, oral, NEEDED, MAY REPEAT X1, 2 doses, Starting on Sat04/27/22 at 1455, Until Sat04/27/22 at 2302, Phase 1/2, Pain, when taking PO, pain while in recovery area oxyCODONE-acetaminophen (PERCOCET) 5-325 mg tablet 1 tablet(Link ed Group 2) 1605 (See Alternative - Provider: Miguel A Cruz RN) 1 tablet, oral, NEEDED, MAY REPEAT X1 , 2 doses, Starting on Sat04/27/22 at 1455, Until Sat04/27/22 at 2302, Phase 1/2, Pain, when taking PO, pain while in recovery area Linked Groups Order Group 1: acetaminophen (TYLENOL) tablet 1,000 mgJump to med 1,000 mg, oral, THREE TIMES A DAY, First dose on Sat04/27/22 at 1545, Until Discontinued, Post-Op Or acetaminophen (TYLENOL) rectal suppository 650 mgJump to med 650 mg, Rectal, THREE TIMES A DAY, First dose on Sat04/27/22 at 1545, Until Discontinued, Post-Op Group 2: oxyCODONE (immediate release) (ROXICODONE) tablet 5 mgJump to med 5 mg, oral, NEEDED, MAY REPEAT X1, 2 doses, Starting on Sat04/27/22 at 1455, Until Sat04/27/22 at 2302, Phase 1/2, Pain, when taking PO, pain while in recovery area Or oxyCODONE-acetaminophen (PERCOCET) 5-325 mg tablet 1 tabletJump to med 1 tablet, oral, NEEDED, MAY REPEAT X1 , 2 doses, Starting on Sat04/27/22 at 1455, Until Sat04/27/22 at 2302, Phase 1/2, Pain, when taking PO, pain while in recovery area Or HYDROcodone-acetaminophen (NORCO) 5-325 mg tablet 1 tabletJump to med 1 tablet, oral, NEEDED, MAY REPEAT X1 , 2 doses, Starting on Sat04/27/22 at 1455, Until Sat04/27/22 at 2302, Phase 1/2, Pain, when taking PO, pain while in recovery area Group 3: hydrOXYzine pamoate (VISTARIL) capsule 25 mgJump to med 25 mg, oral, ONCE NEEDED, MAY REPEAT X 1, 2 doses, Starting on Sat04/27/22 at 1455, Until Sat04/27/22 at 2302, Phase 1/2, for augmentation of narcotic based analgesia while in recovery area. Not to be used if given within the past 6 hours. Or hydrOXYzine HCl (VISTARIL) injection 25 mgJump to med 25 mg, IntraMUSCULAR, ONCE NEEDED, MA Y REPEAT X 1, 2 doses, Starting on Sat04/27/22 at 1455, Until Sat04/27/22 at 2302, Phase 1/2, for augmentation of narcotic based analgesia while in recovery are a and unable to take PO. Not to be given within the past 6 hours. documented in this encounter Care Teams Robotics Application Engineer Relationship Specialty Start Date End Date Louis Reyes MD PCP - General 01/30/221999 [place] [address] Clinic, Not Listed PCP - Primary Care Clinic 01/30/22 documented as of this encounter
--- OUTSIDE RECORDS SUMMARY | 2022-05-06 02:04 | XMS_ITS | Encounter Summary ---
:1940 Author Organization [facility] Address [address] [place] [address] Care Team Providers Name Role Phone Louis Reyes MD Primary Care Provider Clinic, Not Listed Unavailable Unavailable Reason for Visit Inpatient Admission Specialty Diagnoses / Procedures Referred By Contact Refer red To Contact Diagnoses dx. endstage renal disease Procedures ANASTOMOSIS,AV,ANY SITE ANASTOMOSIS,AV,ANY SITE RIGHT UPPER GRAFT VERSUS SECOND STAGE Referral ID Status Reason Start Date Expiration Date Visits Requ ested Visits Authorized [id number] 1 1 Encounter Details Date Type Department Care Team Description 02/02/2022 Hospital Encounter A7 Jasmin Cardenasorlando Martinez, ESRD (end stage [address] [facility] renal disease) ([facility]) [address] [place] [facility] [address] [address] [place], [place] [phone] [id number] Social History Tobacco Use Types Packs/Day Years [...] 02/02/2022 7:45 PM CDT Cindi Garibay 1940 [id number] P: Discharge A: Discharged ambulatory to home [...] during treatment. Patient dialysis days MWF at [facility]. WIN [place] Lashon Horton RN - 02/02/2022 2:36 PM CDT Patient here for fistulagram today as outpatient, K 5.9 and needing dialysis prior to procedure. Admitted to A7, ate lunch, will go to W5 for dialysis and DC home. Then she will reschedule fistulagram as an outpatient. Lives at home with son Rafita who will come turkey picker when done. Tele monitor on, no [...] She did not dialyze yesterday as her parks and recreation manager recommended. We planned to dialyze her today, [...] surgery for another date. Sonya Cardenas MD [facility] documented in this encounter Consult Notes Avril Gomes APRN, CNP - 02/02/2022 3:29 PM CDT Images from the original note were not included. 02/02/2022 February 02, 2022 3:30 PM Impression and Plan: 1) ESRD: Usually dialyze on Saturday via [facility]VC at [facility] ([phone]). Herprimary parks and recreation manager is Dr Landon Calvert MD. No recent [...] - Follow weights and I&Os HD Site: [facility] Prescription: Dry weight: 49.5 kg Avril Gomes APRN, SALES DEPARTMENT CLERK 3) Blood Pressure/Volume: long standing history of [...] in Ms. Garibay???s care. Avril Gomes DNP, SALES DEPARTMENT CLERK, [facility] Office # [phone] documented in this encounter Nursing Notes Danish Boladn RN - 02/02/2022 10:58 AM CDT Cindi Garibay 1940 [id number] P. Transfer A. Transferred at 1045 to A7 unit. Transported via wheelchair with chart escorted by nursing department chairperson. I. Notified son of transfer. Patient information [...] medical chart had name spelled wrong. desktop analyst working on correcting. Different drivers ID and [...] HEP BS ANTIGEN Non-React Non-React ATELLICA 02/02/2022 [facility] [place] ANALYZER 2:17 PM CDT HEALTH LABORATORY Specimen Anatomical Collection Method Collection Time Receive d Time (Source) Location / / Volume Laterality Blood 02/02/2022 1:17 PM 1:34 CDT PM CDT Chadwick Lai MD IMMUNOLOGY ORDERABLE Performing Organization Address City/State/ZIP Code Phon e Number [facility] [address] [place] [address] LABORATORY Protime/INR (02/02/2022 8:18 AM CDT)Only the most recent of2 resultswithin the time period is included. P athologist Signature INR 1.0 0.9 - 1.2 02/02/2022 [facility] 9:10 AM CDT HEALTH LABORATORY Specimen Anatomical Collection Method / Collection Time Recei asim Time (Source) Location / Volume Laterality Blood LEFT UPPER ARM Venipuncture / 02/02/2022 8:18 02/03/20 22 8:25 STRUCTURE / Unknown AM CDT AM CDT Unknown Sp Vickers MD COAGULATION ORDERABLE Performing Organization Address [facility] Phon e Number [place] [address] [place] [address] LABORATORY (ABNORMAL) Partial Thromboplastin Time (02/02/2022 8:18 AM CDT)Only the most recent of2 resultswithin the time period is included. P athologist Signature PTT 40.7 (H) 24.0 - 31.0 02/02/2022 [facility] SEC. 9:10 AM CDT [facility] LABORATORY Specimen Anatomical Collection Method / Collection Time Recei asim Time (Source) Location / Volume Laterality Blood LEFT UPPER ARM Venipuncture / 02/02/2022 8:18 02/03/20 22 8:25 STRUCTURE / Unknown AM CDT AM CDT Unknown Narrative [facility] LABORATORY - 02/02 9:10 AM CDT aPTT Therapeutic Reference Ranges: Argatroban protocol: 60 - 85 seconds Bivalirudin protocol: 43 - 71 seconds Sp Vickers MD COAGULATION ORDERABLE Performing Organization Address [facility] Phon e Number [address] [place] [address] LABORATORY (ABNORMAL) Potassium (02/02/2022 8:18 AM CDT)Only the most recent of2 results within the time period is included. P athologist Signature POTASSIUM 5.9 (H) 3.4 - 5.1 ATELLICA 02/02/2022 [facility] mmol/L ANALYZER 8:46 AM CDT [facility] LABORATORY Specimen Anatomical Collection Method / Collection Time Recei asim Time (Source) Location / Volume Laterality Blood LEFT UPPER ARM Venipuncture / 02/02/2022 8:18 02/03/20 22 8:25 STRUCTURE / Unknown AM CDT AM CDT Unknown Sp Vickers MD CHEMISTRY ORDERABLE Performing Organization Address City/[facility]/ZIP [facility] Phon e Number [address] [place] [address] LABORATORY Type & Screen (02/02/2022 8:18 AM CDT) [facility] gist Method Time Signature GROUP AND RH O Positive 02/02/2022 [facility] 9:32 AM CDT HEALTH LABORATORY ANTIBODY Negative 02/02/2022 [facility] SCREEN 9:32 AM CDT HEALTH LABORATORY Specimen Anatomical Collection Method / Collection Time Recei asim Time (Source) Location / Volume Laterality Blood LEFT UPPER ARM Venipuncture / 02/02/2022 8:18 02/03/20 22 8:23 STRUCTURE / Unknown AM CDT AM CDT Unknown Sonya Cardenas MD BLOOD BANK ORDERABLE Performing Organization Address City/State/ZIP Code Phon e Number [facility] [place] [address] [phone] LABORATORY ABORh Confirm (Lab Use Only) (02/02/2022 8:14 AM CDT) [facility] Method Time Signature GROUP AND RH O Positive 02/02/2022 [facility] 10:06 AM CDT HEALTH LABORATORY Specimen Anatomical Collection Method Collection Time Receive d Time (Source) Location / / Volume Laterality Blood 02/02/2022 8:14 AM 9:50 CDT AM CDT Chadwick Lai MD BLOOD BANK ORDERABLE Performing Organization Address City/State/ZIP Code Phon e Number [facility] [place] [address] [place] [address] [place] [address] LABORATORY COVID 19 (External) (01/29/2022) Analysis Performed At [facility] Time Signature COVID 19 Not Not (External) [...] 0 (Canceled Entry - Provider: Lashon Horton, RN) 10 mL, Intravenous, EVERY 8 HOURS, [...] restart documented in this encounter Care Teams Mutuel Department Manager Relationship Specialty Start Date End Date Louis Reyes MD PCP - General 01/30/221999 [place] [address] Clinic, Not Listed PCP - Primary Care Clinic 01/30/22 documented as of this encounter
--- OUTSIDE RECORDS SUMMARY | 2022-05-06 02:04 | XMS_ITS | Clinical Summary ---
:[address] [facility] Address [address] [place] [address] Care Team Providers Name Role Phone Louis Reyes MD Primary Care Provider Clinic, Not Listed Unavailable Unavailable Allergies Active Allergy Reactions Severity Noted Date Comments Carvedilol Other 12/28/2019 Other reaction( s): Other (see comments) Iron Hives, Itching High 05/23/2021 Iron Sucrose Rash Low 09/19/2021 Medications Medication Sig Dispensed Refills Start Date End Date Status calcium acetate, TAKE 2 CAPSULES 0 11/17/2021 Active phosphate binders, BY MOUTH THREE (PHOSLO) 667 mg oral TIMES DAILY WITH capsule MEALS AND 1 CAPSULE TWO TIMES DAILY [...] mg oral tablet mouth twice a day. omeprazole (PRILOSEC) Take by mouth 0 09/06/2021 Active 20 mg oral delayed Daily. release capsule HYDROmorphone Take 1 tablet (2 10 tablet 0 04/27/2022 Active (DILAUDID) 2 mg oral mg) by mouth tablet every 4 (four) hours as needed for pain. Active Problems Problem Noted Date ESRD (end stage renal disease) 02/02/2022 Encounters Date Type Specialty Care Team Description 04/27/2022 Surgery Surgery Sonya Cardenas, RIGHT SECOND STAGE BRACHIOCEPHALIC FISTULA 04/27/2022 Hospital Encounter Sonya Cardenas MD 04/27/2022 Travel 04/24/2022 Travel from Last 3 Months Social History [...] Sign Reading Time Taken Comments Blood Pressure 127/86 04/27/2022 4:30 PM CDT Pulse 78 04/27/2022 4:30 PM CDT Temperature 36.7 ??C (98 ??F) 04/27/2022 3:48 PM CDT Respiratory Rate 18 04/27/2022 4:30 PM CDT Oxygen Saturation 99% 04/27/2022 4:30 PM CDT Inhaled Oxygen Concentration - - Weight 54 kg (119 lb) 04/27/2022 8:43 AM CDT Height 160 cm (5' 3) 04/27/2022 8:43 AM CDT Body Mass Index 21.08 04/27/2022 8:43 AM CDT Plan of Treatment Health Maintenance Due Date Last Done Comments Colonoscopy 1940 Dexa Scan 1940 Hepatitis C Screening 1940 Lipid Screening 1940 COVID-19 Vaccine (#1) 06/28/1941 Adult Tetanus Booster 1961 Zoster Vaccine (1 of 2) 1961 Influenza Vaccine (#1) 2022 Pneumococcal 65+ (2 - PPSV23 if available, 03/28/202203/28 else PCV20) Yearly Review of HCD 04/04/2023 04/04/2022, 01/10/2022 Procedures Procedure Name Priority Date/Time Associated Comments Diagnosis INTUBATION Routine 04/27/2022 2:04 PM Results f or this CDT procedure are i n the results section. CREATION: SABASCIA 04/27/2022 11:47 AM dx. endstage jennifer al BASILIC A-V FISTULA CDT disease FIRST/SECOND STAGE SARS-COV-2 BY RAPID STAT 04/27/2022 9:09 AM Re sults for this PCR CDT procedure are i n the results section. BASIC METAB PROFILE STAT 04/27/2022 8:56 AM Re sults for this CDT procedure are i n the results section. from Last 3 Months Results Intubation (04/27/2022 2:04 PM CDT) Narrative Disomma, Shelby Zapata - 04/27/2022 2:04 PM C DT Shelby Zapata Disomma ? 04/27/2022 ??2:10 PM Intubation Location: OR Procedural Details: Direct Vision, Atrau matic, Dentition Intact, Preox and Pharynx Clear Entry Site: Oral Laryngoscope size: 3 Laryngoscope type: Glidescope Tube size: 7.0 Maskability: oral airway and easy Ease: easy Cormack-Lehane: grade I - visualization of entire laryngeal aperture (95%) Tube type: Single Lumen and Cuffed Performed by: Sp Vickers MD, Anest hesiologist Post-procedure assessment: BBS and EtCO2 + Cuff inflated: yes ETT to lip: 23 cm Sp Vickers MD AN BLOCKS COVID-19 (Screening) (04/27/2022 9:09 AM CDT) Analysis Performed At Patho logist Time Signature SARS-CoV-2 by Negative for Negative CEPHEID 04/27/2022 [place] PCR SARS-CoV-2 for INFINITY 9:51 AM CDT [facility] RNA by PCR SARS-CoV-2 [facility] RNA by PCR LABORATORY Specimen Anatomical Collection Method Collection Time Receive d Time (Source) Location / / Volume Laterality Site-Microbiolog 04/27/2022 9:09 AM 04/27 9:14 y CDT AM CDT Sonya Cardenas MD MICROBIOLOGY ORDERABLE Performing Organization Address City/State/ZIP Code Phon e Number [facility] [address] [address] [phone] LABORATORY (ABNORMAL) Basic Metabolic Profile (04/27/2022 8:56 AM CDT) Analysis Performed At Patho logist Time Signature SODIUM 141 136 - 145 [facility] 04/27/2022 [facility] mmol/L ANALYZER 9:[address] [facility] LABORATORY POTASSIUM 4.9 3.4 - 5.1 ATELLICA 04/27/2022 [facility] mmol/L ANALYZER 9:[address] [facility] LABORATORY CHLORIDE 100 98 - 108 [facility] 04/27/2022 [facility] mmol/L ANALYZER 9:[address] [facility] LABORATORY CARBON DIOXIDE 31 20 - 31 [facility] 04/27/2022 [facility] mmol/L ANALYZER 9:[address] [facility] LABORATORY BUN (UREA 33 (H) 9 - 23 [facility] 04/27/2022 [facility] NITRO) mg/dL ANALYZER 9:[address] [facility] LABORATORY CREATININE 5.58 (H) 0.50 - [facility] 04/27/2022 [facility] 1.00 ANALYZER 9:[address] [facility] mg/dL LABORATORY EST GFR 7.30 (L) >60.00 [facility] 04/27/2022 [facility] (CKD-EPI) mL/min/1. ANALYZER 9:[address] [facility] 73m2 LABORATORY Comment: Calculation based on the Chroni c Kidney Disease Epidemiology Collaboration (CKD-EPI) equation refit without adjustm ent for race. GLUCOSE 94 74 - 106 [facility] 04/27/2022 9:28 [facility] mg/dL ANALYZER AM [facility] LABORATORY CALCIUM, SERUM 10.1 8.7 - 10.4 [facility] 04/27/2022 9:28 [facility] mg/dL ANALYZER AM [facility] LABORATORY ANION GAP 10.0 0.0 - 15.0 [facility] 04/27/2022 9:28 [facility] mmol/L ANALYZER AM [facility] LABORATORY Specimen Anatomical Collection Method Collection Time Receive d Time (Source) Location / / Volume Laterality Blood BLOOD SPECIMEN / LIne - Venous / 04/27/2022 8:56 AM 9:01 Unknown Unknown CDT AM CDT Sp Vickers MD CHEMISTRY ORDERABLE Performing Organization Address City/State/ZIP Code Phon e Number [facility] [address] [address] LABORATORY from Last 3 Months Insurance Payer Benefit Plan Subscriber ID Effective Phone Address Typ e / Group Dates [facility] MEDIC[facility] [id number] 2021-Pres [address] [facility] ent [address] [place] [address] (Home) [place] [id number] Advance Directives For more information, please contact: [phone] Latest Code Status on File Code Status Date Activated Date Inactivated Comments Full Code 02/02/2022 9:21 AM 02/03/2022 1:53 AM How was code status determined? Patient Care Teams Research Chemist Relationship Specialty Start Date End Date Louis Reyes MD PCP - General 01/30/221999 [place] [address] Clinic, Not Listed PCP - Primary Care Clinic 01/30/22
--- OUTSIDE RECORDS SUMMARY | 2022-05-06 02:04 | XMS_ITS | Encounter Summary ---
:1940 Author Organization [facility] Address [address] [place] [address] Care Team Providers Name Role Phone Louis [...] filedocumented in this encounter Care Teams Chief Compliance Officer Relationship Specialty Start Date End Date Louis Reyes MD PCP - General 01/30/221999 [place] [address] Clinic, Not Listed PCP - Primary Care Clinic 01/30/22 documented as of this encounter
--- OUTSIDE RECORDS SUMMARY | 2022-05-06 02:04 | XMS_ITS | Encounter Summary ---
:1940 Author Organization [facility] Address [address] [place] [address] Care Team Providers Name Role Phone Louis [...] filedocumented in this encounter Care Teams Collar Worker Relationship Specialty Start Date End Date Louis Reyes MD PCP - General 01/30/221999 [place] [address] Clinic, Not Listed PCP - Primary Care Clinic 01/30/22 documented as of this encounter
--- OUTSIDE RECORDS SUMMARY | 2022-05-06 02:04 | XMS_ITS | Encounter Summary ---
:1940 Author Organization [facility] Address [address] [place] [address] Care Team Providers Name Role Phone Louis Reyes MD Primary Care Provider Clinic, Not Listed Unavailable Unavailable Reason for Visit Inpatient Admission Specialty Diagnoses / Procedures Referred By Contact Refer red To Contact Diagnoses dx. endstage renal disease Procedures ANASTOMOSIS,AV,ANY SITE RIGHT UPPER GRAFT VERSUS SECOND STAGE FISTULA Referral ID Status Reason Start Date Expiration Date Visits Requ ested Visits Authorized [id number] 1 1 Encounter Details Date Type Department Care Team Description 04/27/2022 Hospital Encounter [facility] Sonya Cardenas MD Hospital Patient Care [address] [place] [address] [place] [id number] [place] [address] [phone] Social History Tobacco Use Types Packs/Day Years [...] 04/27/2022 4:40 PM CDT Cindi Garibay 1940 [id number] P: Discharge A: Discharged via wheelchair to [...] use PCAD for dialysis Follow up at [facility] in 3 weeks Sonya Cardenas MD [facility] documented in this encounter Plan [...] SARS-CoV-2 by Negative for Negative CEPHEID 04/27/2022 [facility] PCR SARS-CoV-2 for INFINITY 9:51 AM [facility] RNA by PCR SARS-CoV-2 ANALYZER [facility] RNA by PCR LABORATORY Specimen Anatomical Collection Method Collection Time Receive d Time (Source) Location / / Volume Laterality Site-Microbiolog 04/27/2022 9:09 AM 04/27 9:14 y CDT AM CDT Sonya Cardenas MD MICROBIOLOGY ORDERABLE Performing Organization Address City/State/ZIP Code Phon e Number [facility] [address] [place] [address] LABORATORY (ABNORMAL) Basic Metabolic Profile (04/27/2022 8:56 AM CDT) Analysis Performed At Patho logist Time Signature SODIUM 141 136 - 145 [facility] 04/27/2022 [facility] mmol/L ANALYZER 9:28 AM [facility] LABORATORY POTASSIUM 4.9 3.4 - 5.1 [facility] 04/27/2022 [facility] mmol/L ANALYZER 9:28 AM [facility] LABORATORY CHLORIDE 100 98 - 108 [facility] 04/27/2022 [facility] mmol/L ANALYZER 9:28 AM [facility] LABORATORY CARBON DIOXIDE 31 20 - 31 [facility] 04/27/2022 [facility] mmol/L ANALYZER 9:28 AM [facility] LABORATORY BUN (UREA 33 (H) 9 - 23 [facility] 04/27/2022 [facility] NITRO) mg/dL ANALYZER 9:28 AM [facility] LABORATORY CREATININE 5.58 (H) 0.50 - ATELLICA 04/27/2022 [facility] 1.00 ANALYZER 9:28 AM [facility] mg/dL LABORATORY EST GFR 7.30 (L) >60.00 [facility] 04/27/2022 [facility] (CKD-EPI) mL/min/1. ANALYZER 9:28 AM [facility] 73m2 LABORATORY Comment: Calculation based on the Chroni c Kidney Disease Epidemiology Collaboration (CKD-EPI) equation refit without adjustm ent for race. GLUCOSE 94 74 - 106 ATELLICA 04/27/2022 9:28 [facility] mg/dL ANALYZER AM [facility] LABORATORY CALCIUM, SERUM 10.1 8.7 - 10.4 ATELLICA 04/27/2022 9:28 [facility] mg/dL ANALYZER AM [facility] LABORATORY ANION GAP 10.0 0.0 - 15.0 ATELLICA 04/27/2022 9:28 [facility] mmol/L ANALYZER AM CDT HEALTH LABORATORY Specimen Anatomical Collection Method Collection Time Receive d Time (Source) Location / / Volume Laterality Blood BLOOD SPECIMEN / LIne - Venous / 04/27/2022 8:56 AM 9:01 Unknown Unknown CDT AM CDT Sp Vickers MD CHEMISTRY ORDERABLE Performing Organization Address City/State/ZIP Code Phon e Number [facility] [address] [place] [address] LABORATORY documented in this encounter Visit Diagnoses [...] bpm WITH HYPOTENSION - NOTIFY ANESTHESIOL OGIST HYDROcodone-acetaminophen (NORCO) 5-325 mg tablet 1 tablet [...] if given within the past 6 hours. meperidine (preservative free) (DEMEROL) syringe 12.5 mg 12.5 mg, Intravenous, EVERY 5 MINUTES NEEDED, 2 doses, Starting on Sat04/27/22 at 1455, Until Sat04/27/22 at 2302, Phase 1/2, for sh ivering, Do not user meperidine for pain control per recommendation of the [place] [employer] Pain Society, [place] for Safe Medication Practices (ISMP) and the [facility]. midazolam (VERSED) injection 0.5-1 mg [...] mL (CANCELED) 0908 (Given - Provider: Addie Nieto RN) 10 mL, Intravenous, NEEDED, Starting on Sat04/27/22 [...] Sonya Cardenas MD) INTRA-PROCEDURE NEEDED, Starting on F ri 04/27/22 at 1306, Until Sat04/27/22 at 1515, Intra-Op meperidine (preservative free) (DEMEROL) syringe 12.5 mg 12.5 mg, Intravenous, EVERY 5 MINUTES NEEDED, 2 doses, Starting on Sat04/27/22 at 1455, Until Sat04/27/22 at 2302, Phase 1/2, for shivering, Do not user meperidine for pain control per recommendati on of the [place] [employer], [facility] Safe Medication Practices (ISMP) and the [facility]. midazolam (VERSED) injection 0.5-1 mg [...] hours. documented in this encounter Care Teams Anime Designer Relationship Specialty Start Date End Date Louis Reyes MD PCP - General 01/30/221999 [place] [address] Clinic, Not Listed PCP - Primary Care Clinic 01/30/22 documented as of this encounter
--- OUTSIDE RECORDS SUMMARY | 2022-05-06 02:05 | XMS_ITS | Encounter Summary ---
:1940 Author Organization [facility] Address [address] [place] [address] Phone Care Team Providers Name Role Phone Unavailable Primary Care Provider Unavailable Encounter Details Date Type Department Care Team Description 05/31/2021 Documentation Only Acute Dialysis Barby Cox [address] [place], [place] [id number] Social History Tobacco Use Types Packs/Day Years Used Date Smoking Tobacco: Never Assessed Sex Assigned at Date Recorded Not on file COVID-19 Exposure Response Date Recorded In the last month, have you been in contact with No / Unsure 05/29/2021 6:33 AM JACK TAMP OPERATOR someone who was confirmed or suspected to have Coronavirus / COVID-19? documented as of this encounter Progress Notes Barby Cox - 05/31/2021 6:42 AM CST Discharge paperwork faxed to chronic dialysis. Adán Cox TAMP OPERATOR documented in this encounter Plan of Treatment Not on filedocumented as of this encounter Visit Diagnoses Not on filedocumented in this encounter
--- OUTSIDE RECORDS SUMMARY | 2022-05-06 02:05 | XMS_ITS | Encounter Summary ---
:1940 Author Organization [facility] Address [address] [place] [address]. [place] [address] Phone Care Team Providers Name Role Phone Unavailable Primary Care Provider Unavailable Encounter Details Date Type Department Care Team Description 05/29/2021 Orders Only [facility] Film Room Provider, Outside Referral of patient [facility] OUTSIDE PROVIDER (Primary Dx) Medical [place], [place] Radiology Department [id number] [facility] [address] [facility]. [address] [address] Social History Tobacco Use Types Packs/Day Years Used Date Smoking Tobacco: Never Assessed Sex Assigned at Date Recorded Not on file COVID-19 Exposure Response Date Recorded In the last month, have you been in contact with No / Unsure 05/29/2021 6:33 AM INFORMATION RESOURCE CONSULTANT someone who was confirmed or suspected to have Coronavirus / COVID-19? documented as of this encounter Plan of Treatment Not on filedocumented as of this encounter Results XR CHEST OUTSIDE FILMS (05/29/2021 4:53 AM INFORMATION RESOURCE CONSULTANT) Specimen (Source) Anatomical Location Collection Method / Collectio n Time Received Time / Laterality Volume Narrative Edwin PondAmcn-Ppbgtd-[id number] - 1 6:27 AM INFORMATION RESOURCE CONSULTANT Outside Film Only Outside Provider OUTSIDE FILMS XR CHEST OUTSIDE FILMS (04/17/2021 8:20 AM CDT) Specimen (Source) Anatomical Location Collection Method / Collectio n Time Received Time / Laterality Volume Narrative Fausto PondJvqv-Pdloox-[id number] - 1 6:27 AM INFORMATION RESOURCE CONSULTANT Outside Film Only Outside Provider OUTSIDE FILMS documented in this encounter Visit Diagnoses Diagnosis Referral of patient - Primary Referral of patient without examination or treatment documented in this encounter
--- OUTSIDE RECORDS SUMMARY | 2022-05-06 02:05 | XMS_ITS | Encounter Summary ---
:1940 Author Organization [facility] Address [address] [place] [id number] Phone Care Team Providers Name Role Phone [...] with No / Unsure 05/29/2021 6:33 AM AUTOMOTIVE MANUFACTURER someone who was confirmed or suspected to have Coronavirus / COVID-19? documented as of this encounter Plan of Treatment Not on filedocumented as of this encounter Visit Diagnoses Not on filedocumented in this encounter
--- OUTSIDE RECORDS SUMMARY | 2022-05-06 02:05 | XMS_ITS | Clinical Summary ---
:1940 Author Organization [facility] Address [address] [place] [id number] Phone Care Team Providers Name Role Phone Unavailable Primary Care Provider Unavailable Source Comments ASSURED INFORMATION SECURITY is fully rolled out on [employer]. Last update 12/03/08.[facility] Allergies Active Allergy Reactions Severity Noted Date [...] Comments Blood Pressure 123/66 05/30/2021 7:37 AM TRACK HELPER Pulse 87 05/29/2021 11:13 PM TRACK HELPER Temperature 36.9 ??C (98.5 ??F) 05/30/2021 7:37 AM TRACK HELPER Respiratory Rate 20 05/30/2021 7:37 AM TRACK HELPER Oxygen Saturation 95% 05/30/2021 7:37 AM TRACK HELPER Inhaled Oxygen Concentration - - Weight 43 kg (94 lb 12.8 oz) 05/29/2021 6:00 PM TRACK HELPER Height 160 cm (5' 3) 05/29/2021 6:00 PM TRACK HELPER Body Mass Index 16.79 05/29/2021 6:00 PM TRACK HELPER Plan of Treatment Health Maintenance Due Date [...] Phone Address Typ e / Group Dates [facility] [id number] [address] [facility] ([place]IC[place] [id number] [employer]) [place] [address] Advance Directives For more information, please contact: [phone] Latest Code Status on File Code Status Date Activated Date Inactivated Comments Full Code 05/29/2021 6:03 PM 05/30/2021 4:17 PM Question Answer Comments Does the Patient have preferences regarding life sustaining No measures (these options only apply when the patient has a pulse): Discussed Code Status With Whom? Not discussed
--- OUTSIDE RECORDS SUMMARY | 2022-05-06 02:05 | XMS_ITS | Encounter Summary ---
:1940 Author Organization [facility] Address [address] [place] [address] Phone Care Team Providers Name Role Phone Unavailable Primary Care Provider Unavailable Reason for Visit Reason Comments Shortness of Breath Auth/Cert Specialty Diagnoses / Procedures Referred By Contact Refer red To Contact CARDIOLOGY Diagnoses SOB (shortness of breath) Yomi Milligan Care 2 Card Renal Inpt MD Candace [address] [facility] [address] [place], [place] [address] [id number] [place], [place] [address] [place] [address] Fax: Referral ID Status Reason Start Date Expiration Date Visits Requ ested Visits Authorized [id number] 1 1 Encounter Details Date Type Department Care Team Description 05/29/2021 - Hospital Encounter [facility] Cardiac & Binu Young MD [address] [facility] [address] [place], [place] [id number] SOB (shortness of 05/30/2021 Renal 2 Yomi Milligan MD [address] [place], [place] [address] breath) 701 Jp Velasco MD [address] [address] [id number] [place] [address] Social History Tobacco Use Types Packs/Day Years Used Date Smoking Tobacco: Never Assessed Sex Assigned at Date Recorded Not on file COVID-19 Exposure Response Date Recorded In the last month, have you been in contact with No / Unsure 05/29/2021 6:33 AM ADMINISTRATIVE COORDINATOR someone who was confirmed or suspected to have Coronavirus / COVID-19? documented as of this encounter Last Filed Vital Signs Vital Sign Reading Time Taken Comments Blood Pressure 123/66 05/30/2021 7:37 AM ADMINISTRATIVE COORDINATOR Pulse 87 05/29/2021 11:13 PM ADMINISTRATIVE COORDINATOR Temperature 36.9 ??C (98.5 ??F) 05/30/2021 7:37 AM ADMINISTRATIVE COORDINATOR Respiratory Rate 20 05/30/2021 7:37 AM ADMINISTRATIVE COORDINATOR Oxygen Saturation 95% 05/30/2021 7:37 AM ADMINISTRATIVE COORDINATOR Inhaled Oxygen Concentration - - Weight 43 kg (94 lb 12.8 oz) 05/29/2021 6:00 PM ADMINISTRATIVE COORDINATOR Height 160 cm (5' 3) 05/29/2021 6:00 PM ADMINISTRATIVE COORDINATOR Body Mass Index 16.79 05/29/2021 6:00 PM ADMINISTRATIVE COORDINATOR documented in this encounter Discharge Summaries Jp [...] on HD (M/W/F), CHF, presented to [facility] as a transferfrom [place] for evaluation of shortness of breath, hypoxia. The patient was noted to be initially hypoxic to 80% on RA at OSH, where she was placed on O2 via facemask with improvement. She was noted to be hypertensive to 160s systolic. She was given duo nebs x2, calcium gluconate and BiPAP, started on nitro drip to [facility] STAB room. Chest x-ray concerning for right middle/lower lobe pneumonia versus pulmonary edema, patient was started on Ceftriaxone and Azithromycin. Eventually able to be weaned off of nitro drip, started on [employer] blood pressure medications. She was dialyzed in [...] on CXR 05/29 Patient initially presented to [place] emergency department for shortness of breath that [...] likely related to salty food intake at [facility] last week. - No further antibiotic regimen indicated at this time. - Recommended abstaining from salty food intake. Plan to continue [employer] blood pressure medications - Per Epic, pt s/p Prevnar 13 on 03/28/21, unclear if she received PPSV23 previously. Discussed with patient, who does not recall Prevnar 13 vaccination or any subsequent vaccinations. Recommended PPSV23 8+ weeks after Aoevunb09 (likely some time in May) and 5 years later, however patient states she is not interested in any further vaccinations. Recommended follow up with her PCP for further discussion regarding PPSV23 vaccination. ESRD on HD Hyperkalemia, resolved Patient typically dialyzes MWF at [facility] via R IJ Permcath. EDW 45kg. Followed by school age program associate Dr. Calvert of [facility]. Last dialyzed here on 05/29 and had 2.5kg taken off at that time, newEDW approximately 43kg. Patient noted to be hyperkalemic in the ED to 5.7, for which she was given 3g calcium gluconate and Lokelma 10mg while in the ED. Repeat K 4.3 on today's AM labs. - Continue M/W/F dialysis schedule - Continue [employer] phoslo, nephrocaps, calcitriol Congestive Heart Failure HTN [...] subsequent improvement in respiratory status. - Continue [employer] Lasix, Lisinopril, Metoprolol Elevated Troponin Patient with initial elevated troponin to 444 on arrival, since downtrending -> 363 -> 353. Likely demand ischemia in setting of acute hypoxia. No further troponins indicated. Anemia of CKD Patient with chronic anemia of CKD, Hgb has remained stable ~9. No evidence of active bleeding. - Continue [employer] epo PERTINENT STUDIES & CONSULTS: Chest XR [...] 8:17 PM Staff Physician Division of Nephrology NISTRATIVE COORDINATOR documented in this encounter Medications at Time [...] questions. Chris Ball RN, 05/30/2021 11:23 AM NISTRATIVE COORDINATOR Sierra Calabrese RN - 05/29/2021 4:39 PM [...] complications. Sierra Calabrese RN, 05/29/2021 4:39 PM NISTRATIVE COORDINATOR documented in this encounter H&P Notes Jp Crowder MD - 05/29/2021 10:48 AM CST MEDICINE HISTORY AND PHYSICAL Jaz Garibay : 1940 Sex: female Patient Summary: Jaz Garibay is a 80 y.o. female with history significant for ESRD on HD (M/W/F), CHF, presents as transfer from [place] for evaluation of shortness of breath, hypoxia. [...] vs pulmonary edema Patient initially presenting to [place] ER for SOB since earlier this AM, [...] HD Hyperkalemia Patient typically dialyzes MWF at [facility] via R IJ Permcath. EDW 45kg. Followed by school age program associate Dr. Calvert of [facility]. Last dialyzed 05/26. Patient noted to be hyperkalemic in the ED to 5.7. Patient otherwise with non-concerning EKG. Not shifted in the ED given plan for patient to dialyzetoday, patient otherwise given 3g calcium gluconate and Lokelma 10g x while in the ED. - Continue M/W/F dialysis schedule, dialyzed today from the ED - Continue [employer] phoslo, nephrocaps, calcitriol Congestive Heart Failure HTN [...] subsequent improvement in respiratory status. - Continue [employer] Lasix, Lisinopril, Metoprolol Elevated Troponin Patient with [...] Denies illicit substance abuse Recently moved to [place] from [place], [place]; Lives with son at home in [place] Family History: Sister - ESRD Sister - [...] 7:01 PM Staff Physician Division of Nephrology NISTRATIVE COORDINATOR documented in this encounter Consult Notes Bryce [...] to note: -- no changes made to [employer] medications I have reviewed the patient's medications for discharge and have discussed the necessary changes with the provider. Changes have been made and medication list updated and complete. Please page with any questions. Bryce Ricketts PharmD 05/30/2021 11:00 For questions regarding this note, please contact pharmacist on service at PharmD Nephrology & OB/L&D/Bindery Supervisor ([employer]) or [phone]. If no response within needed timeframe, please contact central pharmacy via phone at [phone]. NISTRATIVE COORDINATOR documented in this encounter ED Notes Binu [...] few days. Is dialysis patient. Hypoxic at [place] 80s, responded to 10l facemask O2. Does [...] dialysis. Plan dialysis and admit further management. NISTRATIVE COORDINATOR Eloise Ayala PA-C - 05/29/2021 5:19 PM [...] PMH/o ESRD HD MWF presents initially to [place] with shortness of breath, hypoxic to 80s [...] OXIMETRY-CONT (ED/PACU/L&D/OR/IR) ??? PERIPHERAL IV ??? Call Glass Selector if unable to maintain SBP/MAP while on [...] employee: No Is the patient a Kun ([facility]) Employee: No TROP 4H Result Value Ref [...] were discussed with Attending Emergency Medicine Physician. NISTRATIVE COORDINATOR Janessa Dennis RN - 05/29/2021 4:54 PM CST Pt returning from dialysis, her run was three hours. NISTRATIVE COORDINATOR Janessa Dennis RN - 05/29/2021 3:37 PM [...] Provider Report Called to: Renal team (05/29/21 1253) RN: Janessa Dennis RN Extension #: [id number] NISTRATIVE COORDINATOR Janessa Dennis RN - 05/29/2021 10:25 AM [...] (05/29/21816) RN: Janessa Dennis RN Extension #: [id number] NISTRATIVE COORDINATOR Cara Kennedy PA-C - 05/29/2021 9:08 AM [...] (L) 24 - 28 mEq/L O2 Sat Ewdin 48 % Base Exc Edwin -3.2 -10.0 [...] treatment. Cara Kennedy PA-C, 05/29/2021 9:08 AM NISTRATIVE COORDINATOR Yomi Carpenter PA-C - 05/29/2021 7:24 AM CST ED Provider Note Jaz Garibay : 1940 Sex: female Patient Arrival Date and Time: 05/29/2021 6:15 AM TRANSFER OF CARE NOTE HPI & ED Course: 80 y.o. female with PMH of ESRD, presents with SOB to [facility], was [facility]. Initially was tripodding with sats in low 80s, given 2 duonebs and nitro started, sodium bicarb and calcium at OSH. She normally dialyzes MWF; nitro was at 60 mcg when she got to [facility] room. Bps 160s. Sent here with 10 [...] calcium gluconate if needed. She was moved [facility] to wait for admission. Signed out to Brent JUNG with plans to follow up on recommendations from renal team and admit for PNA, K 5.5. Her nitro drip was turned off before she was moved down to [facility]. Initial trop 400s, denies chest pain. Will get repeat delta troponin but at this time suspect demand, does not seem consistent with ACS. Assessment and plan discussed with faculty physician. Final assessment: 1. SOB (shortness of breath) Yomi Carpenter PA-C, 05/29/2021 8:08 AM NISTRATIVE COORDINATOR Juliana Cason, WIN - 05/29/2021 7:13 AM CST Bed: A03 Expected date: Expected time: Means of arrival: Comments: Stab 2 NISTRATIVE COORDINATOR Binu James RN - 05/29/2021 6:41 AM CST Pt BIBA transfer from [place] ER for SOB. Pt had been tripoding with 81% SpO2. 20g PIV in L AC. Pt given 2 duonebs, nitroglycerin infusion started, calcium gluconate, sodium bicarb and ativan at OSH. Pt on dialysis MWF. Nitroglycerine infusion at 60mcg upon arrival to [facility] 1 and pt's SBP 160s-18 0s.Dialysis fistula R arm and dialysis port L upper chest. Pt transported with 10Lpm O2 with face mask. NISTRATIVE COORDINATOR documented in this encounter Miscellaneous Notes Interval Note Provider - Livan Kiran MD - 05/30/2021 12:25 PM ADMINISTRATIVE COORDINATOR [facility] - [facility] Division of Nephrology Red Renal Service Discharge Dialysis Orders Jaz Garibay Date of : 1940 Dialysis Unit: [facility] Primary Glass Selector: Dr. Calvert Date of Admission: 05/29/2021 Date [...] form: Livan Kiran MD, 05/30/2021 12:25 PM NISTRATIVE COORDINATOR Nursing Assessment - Aaliyah Davis RN - [...] Emotional State: Acceptance Family Behavior: not present NISTRATIVE COORDINATOR Nursing Assessment - Jeannette Peterson RN - [...] -- -- -- Psychosocial Within Defined Limits NISTRATIVE COORDINATOR Interval Note Provider - Salena Muir MD - 05/29/2021 8:10 AM ADMINISTRATIVE COORDINATOR Handoff Communication Note for Hospital Admission Verbal handoff received from Yomi Carpenter PA-C in Team Center A, care transferring to Renal B. Patient status: Inpatient Brief summary of handoff from ED/Clinic Staff: 80 year old F with history significant for ESRD on HD (M/W/F) presents as transfer from [place] for evaluation of shortness of breath, found [...] Please page the Renal B Team via [facility] with clinical updates or status changes. Note is for documentation only and not for billing purposes. Salena Muir MD, 05/29/2021 8:11 AM Emergency Medicine / Internal Medicine, PGY1 NISTRATIVE COORDINATOR ED Stabilization Note - Marilyn Joanna Lizet [...] stable condition. Their care was signed out [id number] with the ED team center provider. Please see their note for the remainder of patient's care while in the emergency department. Sepsis Protocol: NA Clinical Impression 1. SOB (shortness of breath) Disposition To Team Center Joanna Sanders MD PGY3 Emergency Medicine Resident NISTRATIVE COORDINATOR documented in this encounter Plan of Treatment Not on filedocumented as of this encounter Procedures Procedure Name Priority Date/Time Associated Comments Diagnosis PANEL RENAL STAT 05/30/2021 6:31 AM Results f or this ADMINISTRATIVE COORDINATOR procedure are i n the results section. PC LAB CBC/PLT Routine 05/30/2021 6:31 AM Results for this ADMINISTRATIVE COORDINATOR procedure are i n the results section. PC ELECTROLYTES PANEL STAT 05/29/2021 12:05 Re sults for this PM ADMINISTRATIVE COORDINATOR procedure are i n the results section. PC TROPONIN Timed 05/29/2021 10:31 Results for this QUANTITATIVE AM ADMINISTRATIVE COORDINATOR procedure are i n the results section. COVID-19 SURVEILLANCE STAT 05/29/2021 9:28 AM Results for this ADMINISTRATIVE COORDINATOR procedure are i n the results section. PC TROPONIN Timed 05/29/2021 8:38 AM Results f or this QUANTITATIVE ADMINISTRATIVE COORDINATOR procedure are i n the results section. ED EKG (12-LEAD) Routine 05/29/2021 6:46 AM Resul ts for this ADMINISTRATIVE COORDINATOR procedure are i n the results section. XR CHEST 1 VIEW AP OR STAT 05/29/2021 6:32 AM Results for this PA* ADMINISTRATIVE COORDINATOR procedure are i n the results section. EXTRA TUBE - ROME Routine 05/29/2021 6:30 AM Resu lts for this ADMINISTRATIVE COORDINATOR procedure are i n the results section. EXTRA TUBE - SST Routine 05/29/2021 6:30 AM Resul ts for this ADMINISTRATIVE COORDINATOR procedure are i n the results section. PC FREE STANDING BLOOD Routine 05/29/2021 6:30 AM Results for this DRAW BY VENIPUNCTURE ADMINISTRATIVE COORDINATOR procedu re are in the results section. PC TROPONIN STAT 05/29/2021 6:30 AM Results f or this QUANTITATIVE ADMINISTRATIVE COORDINATOR procedure are i n the results section. PC ELECTROLYTES PANEL STAT 05/29/2021 6:30 AM Results for this ADMINISTRATIVE COORDINATOR procedure are i n the results section. PC LAB CBC W/DIFF & STAT 05/29/2021 6:30 AM Re sults for this PLT ADMINISTRATIVE COORDINATOR procedure are i n the results section. TC LAB ER STAT TOTAL STAT 05/29/2021 6:30 AM R esults for this HGB ADMINISTRATIVE COORDINATOR procedure are i n the results section. PROTHROMBIN (PT) & INR STAT 05/29/2021 6:30 AM Results for this ADMINISTRATIVE COORDINATOR procedure are i n the results section. PRECAUTIONARY TUBE STAT 05/29/2021 6:30 AM Res ults for this ADMINISTRATIVE COORDINATOR procedure are i n the results section. PC LACTATE (LACTIC STAT 05/29/2021 6:30 AM Res ults for this ACID) ADMINISTRATIVE COORDINATOR procedure are i n the results section. HEPATITIS B SURFACE Routine 05/29/2021 6:30 AM Re sults for this ANTIGEN ADMINISTRATIVE COORDINATOR procedure are i n the results section. HEPATITIS B SURFACE Routine 05/29/2021 6:30 AM Re sults for this ANTIBODY ADMINISTRATIVE COORDINATOR procedure are i n the results section. PC GASES,BLOOD,ANY STAT 05/29/2021 6:30 AM Res ults for this COMB OF ADMINISTRATIVE COORDINATOR procedure are i n PH,PCD2,PO2,CO2,HCO2 the res ults section. FIBRINOGEN STAT 05/29/2021 6:30 AM Results f or this ADMINISTRATIVE COORDINATOR procedure are i n the results section. PC LAB PTT STAT 05/29/2021 6:30 AM Results f or this ADMINISTRATIVE COORDINATOR procedure are i n the results section. ED US CRITICAL CARE STAT 05/29/2021 6:17 AM Re sults for this ADMINISTRATIVE COORDINATOR procedure are i n the results section. documented in this encounter Results (ABNORMAL) PANEL RENAL (05/30/2021 6:31 AM ADMINISTRATIVE COORDINATOR) P athologist Signature Sodium 139 135 - 148 [facility] mEq/L Potassium 4.3 3.5 - 5.3 [facility] mEq/L Chloride 98 92 - 108 [facility] mEq/L CO2 26 22 - 30 [facility] mEq/L AnGap 15 8 - 16 [facility] mEq/L Glucose 81 70 - 100 [facility] mg/dL BUN 37 (H) 8 - 23 [facility] mg/dL Creatinine 4.15 (H) 0.50 - 1.00 [facility] mg/dL Calcium 9.2 8.8 - 10.2 [facility] mg/dL Albumin 4.1 3.8 - 5.1 [facility] g/dL Phosphorus 5.6 (H) 2.5 - 4.5 [facility] mg/dL eGFR, High 11 (L) >=60 [facility] ml/min/1.73 m2 Comment: Calculated using CKD-EPI equati on eGFR, Low 10 (L) >=60 ml/min/1.73m2 [facility] Comment: Calculated using CKD-EPI equati on Specimen Anatomical Collection Method Collection Time Receive d Time (Source) Location / / Volume Laterality Blood 05/30/2021 6:31 AM 7:18 ADMINISTRATIVE COORDINATOR AM ADMINISTRATIVE COORDINATOR Binu Young MD LABORATORY Performing Organization Address City/State/ZIP Code Phon e Number [facility] [place] [address] (ABNORMAL) CBC WITH PLATELET (05/30/2021 6:31 AM ADMINISTRATIVE COORDINATOR) P athologist Signature WBC 4.84 4.00 - [facility] 10.00 k/cmm RBC 3.46 (L) 3.90 - 5.20 [facility] m/cmm Hgb 10.1 (L) 11.5 - 15.7 [facility] g/dL Hematocrit 28.9 (L) 34.0 - 45.0 [facility] % MCV 83.5 80.0 - [facility] 100.0 fL MCH 29.2 25.0 - 32.0 [facility] pg MCHC 34.9 31.0 - 36.0 [facility] g/dL RDW 17.7 (H) 11.5 - 14.5 [facility] % Plt 232 150 - 400 [facility] k/cmm MPV 9.9 6.5 - 12.5 [facility] fL NRBC 0.0 0.0 - 0.0 % [facility] Specimen Anatomical Collection Method Collection Time Receive d Time (Source) Location / / Volume Laterality Blood 05/30/2021 6:31 AM 7:12 ADMINISTRATIVE COORDINATOR AM ADMINISTRATIVE COORDINATOR Binu Young MD LABORATORY Performing Organization Address City/State/ZIP Code Phon e Number [facility] [place] [address] (ABNORMAL) ED CHEMISTRY LABS(NA,K,CL,CO2,GLU,CREAT,CA-IONIZED,ANION GAP) (05/29/2021 12:05 PM ADMINISTRATIVE COORDINATOR) Analysis Performed At Patho logist Time Signature Sodium 138 135 - 148 [facility] mEq/L Chloride 106 92 - 108 [facility] mEq/L AnGap 12 8 - 16 [facility] mEq/L Glucose 129 (H) 70 - 100 [facility] mg/dL ICA, Actual 4.34 (L) 4.40 - [facility] 5.20 mg/dL ICA, pH 4.34 (L) 4.40 - [facility] Corrected 5.20 mg/dL Creatinine 8.08 (H) 0.50 - [facility] 1.00 mg/dL BICARB 20 (L) 22 - 26 [facility] mEq/L eGFR, High 5 (L) >=60 [facility] ml/min/1.7 3m2 Comment: Calculated using CKD-EPI equati on eGFR, Low 4 (L) >=60 ml/min/1.73m2 [facility] Comment: Calculated using CKD-EPI equati on Potassium 5.7 (H) 3.5 - 5.3 mEq/L [facility] Specimen Anatomical Collection Method Collection Time Receive d Time (Source) Location / / Volume Laterality Blood 05/29/2021 12:05 05/29/2021 PM ADMINISTRATIVE COORDINATOR 12:06 PM ADMINISTRATIVE COORDINATOR Cara Kennedy PA-C LABORATORY Performing Organization Address City/[facility] Code Phon e Number [facility] [place] [address] (ABNORMAL) TROP 4H (05/29/2021 10:31 AM ADMINISTRATIVE COORDINATOR) [facility] gist Method Time Signature 4H Trop 352 (H) <=16 ng/L [facility] 4H Delta Indeterminate Not Significant [facility] Specimen Anatomical Collection Method Collection Time Receive d Time (Source) Location / / Volume Laterality Blood 05/29/2021 10:31 05/29/2021 AM ADMINISTRATIVE COORDINATOR 10:48 AM ADMINISTRATIVE COORDINATOR Binu Young MD LABORATORY Performing Organization Address City/[facility]/ZIP Code Phon e Number [facility] [place] [address] COVID-19 SURVEILLANCE (05/29/2021 9:28 AM ADMINISTRATIVE COORDINATOR) [facility] [employer]achhandel UG Method Time Signature COVID-19 Not Detected Not Detected [facility] Specimen (Source) Anatomical Collection Method Collection Time Re ceived Time Location / / Volume Laterality Nasopharyngeal Swab 05/29/2021 9:28 05/29 AM ADMINISTRATIVE COORDINATOR 9:28 AM ADMINISTRATIVE COORDINATOR Narrative [facility] - 05/29/2021 9:58 AM ADMINISTRATIVE COORDINATOR Preferred specimen is Nasopharyngeal swab Is the patient a healthcare employee: No Is the patient a Kun ([facility]) Employee : No Binu Young MD LABORATORY Performing Organization Address City/[facility]/ZIP Code Phon e Number [facility] [place] [address] (ABNORMAL) TROP 2H (05/29/2021 8:38 AM ADMINISTRATIVE COORDINATOR) [facility] gist Method Time Signature 2H Trop 363 (H) <=16 ng/L [facility] 2H Delta Significant (A) Not [facility] Significant Specimen Anatomical Collection Method Collection Time Receive d Time (Source) Location / / Volume Laterality Blood 05/29/2021 8:38 AM 9:08 ADMINISTRATIVE COORDINATOR AM ADMINISTRATIVE COORDINATOR Binu Young MD LABORATORY Performing Organization Address City/[facility]/ZIP Code Phon e Number [facility] [place] [address] ED EKG (12-LEAD) (05/29/2021 6:46 AM ADMINISTRATIVE COORDINATOR) Specimen (Source) Anatomical Collection Method Collection Time Re ceived Time Location / / Volume Laterality 05/29/2021 6:46 AM ADMINISTRATIVE COORDINATOR Impressions [facility] CVIS EKG ORDERS - 05/29/2021 6:46 A M ADMINISTRATIVE COORDINATOR SINUS RHYTHM LEFT ATRIAL ENLARGEMENT ??[-0.15mV P-WAV E IN V1/V2] RIGHT BUNDLE BRANCH BLOCK ??[120+ ms QRS DURATION, UPRIGHT V1, 40+ ms S IN I/aVL/V4/V5/V6] POSSIBLE LEFT VENTRICULAR HYPERTROPHY ?? [VOLTAGE CRITERIA PLUS LAE OR QRS WIDENING] ABNORMAL ECG P-R Interval 144 ms QRS Interval 134 ms QT Interval 432 ms QTC Interval 478 ms P [place] 64 QRS [place] 9 T Wave [place] 86 Procedure Note Yomi Milligan MD - [...] 432 ms QTC Interval 478 ms P [place] 64 QRS [place] 9 T Wave [place] 86 Binu Young MD EKG Performing Organization Address City/State/ZIP Code Phon e Number [facility] CVIS EKG ORDERS XR CHEST 1 VIEW AP OR PA* (05/29/2021 6:32 AM ADMINISTRATIVE COORDINATOR) Anatomical Region Laterality Modality Chest Computed Radiography Specimen (Source) Anatomical Collection Method Collection Time Re ceived Time Location / / Volume Laterality 05/29/2021 6:37 AM ADMINISTRATIVE COORDINATOR Impressions 05/29/2021 8:42 AM ADMINISTRATIVE COORDINATOR IMPRESSION: Mixed interstitial and patchy airspace o pacities in the right mid and lower lung field concerning for infection versus pulmonary edema. I have personally reviewed the image(s) and initial interpretation, and I agree with the findings as documented by the resident/fellow. Reading Radiologist: Eric Rivero Reading Resident: Jose Chu Narrative 05/29/2021 8:42 AM ADMINISTRATIVE COORDINATOR Exam: ??Single View Chest X-Ray 05/29/2021 Comparison: Earlier same day outside [facility] x-ray, 04/17/2021 History: STAB Patient Findings: Right [...] X-Ray 05/29/2021 Comparison: Earlier same day outside [facility] x-ray, 04/17/2021 History: STAB Patient Findings: Right [...] HEPATITIS B SURFACE ANTIGEN (05/29/2021 6:30 AM ADMINISTRATIVE COORDINATOR) Patholo gist Method Time Signature HBV Surface Nonreactive Nonreactive [facility] Ag Specimen Anatomical Collection Method Collection Time Receive d Time (Source) Location / / Volume Laterality Blood 05/29/2021 6:30 AM ADMINISTRATIVE COORDINATOR 10:29 AM ADMINISTRATIVE COORDINATOR Binu Young MD LABORATORY Performing Organization Address [facility] Code Phon e Number [facility] [place] [address] HEPATITIS B SURFACE ANTIBODY (05/29/2021 6:30 AM ADMINISTRATIVE COORDINATOR) athologist Signature HBV Surface Reactive [facility] Mikayla Comment: Reactive implies immunity. Specimen Anatomical Collection Method Collection Time Receive d Time (Source) Location / / Volume Laterality Blood 05/29/2021 6:30 AM ADMINISTRATIVE COORDINATOR 10:29 AM ADMINISTRATIVE COORDINATOR Binu Young MD LABORATORY Performing Organization Address [facility] Phon e Number [facility] [place], [place] [id number] [place] [address] EXTRA TUBE - SST (05/29/2021 6:30 AM ADMINISTRATIVE COORDINATOR) athologist Signature SST TUBE Stored [facility] Comment: SST tubes (Serum Separator) are stored in the lab for 3 days from the collection date. Specimen Anatomical Collection Method Collection Time Receive d Time (Source) Location / / Volume Laterality Blood 05/29/2021 6:30 AM 6:47 ADMINISTRATIVE COORDINATOR AM ADMINISTRATIVE COORDINATOR Binu Young MD LABORATORY Performing Organization Address City/[facility] Code Phon e Number [facility] [place] [address] EXTRA TUBE - ROME (05/29/2021 6:30 AM ADMINISTRATIVE COORDINATOR) athologist Signature [place]OME TUBE Stored [facility] Comment: [place] top (Sodium flouride) tube s are stored in the lab for 3 days from the collection date. Specimen Anatomical Collection Method Collection Time Receive d Time (Source) Location / / Volume Laterality Blood 05/29/2021 6:30 AM 1 6:47 ADMINISTRATIVE COORDINATOR AM ADMINISTRATIVE COORDINATOR Binu Young MD LABORATORY Performing Organization Address City/[facility] Code Phon e Number [facility] [place] [address] EXTRA TUBE - SST (05/29/2021 6:30 AM ADMINISTRATIVE COORDINATOR) athologist Signature SST TUBE Stored [facility] Comment: SST tubes (Serum Separator) are stored in the lab for 3 days from the collection date. Specimen Anatomical Collection Method Collection Time Receive d Time (Source) Location / / Volume Laterality Blood 05/29/2021 6:30 AM 6:47 ADMINISTRATIVE COORDINATOR AM ADMINISTRATIVE COORDINATOR Binu Young MD LABORATORY Performing Organization Address City/[facility]/ZIP Code Phon e Number [facility] [place] [address] (ABNORMAL) HS TROPONIN (05/29/2021 6:30 AM ADMINISTRATIVE COORDINATOR) athologist Signature HS Troponin I 444 (H) <=16 ng/L [facility] Specimen Anatomical Collection Method Collection Time Receive d Time (Source) Location / / Volume Laterality Blood 05/29/2021 6:30 AM 7:36 ADMINISTRATIVE COORDINATOR AM ADMINISTRATIVE COORDINATOR Narrative [facility] - 05/29/2021 8:12 AM ADMINISTRATIVE COORDINATOR First Occurrence of the Troponin order i s to be drawn Stat by Nursing staff on the unit. Binu Young MD LABORATORY Performing Organization Address City/[facility]/ZIP Code Phon e Number [facility] [place] [address] PTT (APTT) (05/29/2021 6:30 AM ADMINISTRATIVE COORDINATOR) athologist Signature APTT 34.3 25.0 - 37.0 [facility] sec Specimen Anatomical Collection Method Collection Time Receive d Time (Source) Location / / Volume Laterality Blood 05/29/2021 6:30 AM 7:35 ADMINISTRATIVE COORDINATOR AM ADMINISTRATIVE COORDINATOR Binu Young MD LABORATORY Performing Organization Address City/State/ZIP Code Phon e Number [facility] [place] [address] PROTHROMBIN (PT) & INR (05/29/2021 6:30 AM ADMINISTRATIVE COORDINATOR) athologist Signature PT 11.0 9.0 - 12.5 [facility] sec INR 0.9 0.8 - 1.1 [facility] Specimen Anatomical Collection Method Collection Time Receive d Time (Source) Location / / Volume Laterality Blood 05/29/2021 6:30 AM 7:35 ADMINISTRATIVE COORDINATOR AM ADMINISTRATIVE COORDINATOR Binu Young MD LABORATORY Performing Organization Address City/State/ZIP Code Phon e Number [facility] [place] [address] PRECAUTIONARY TUBE (05/29/2021 6:30 AM ADMINISTRATIVE COORDINATOR) Patholo gist Method Time Signature Prec Tube Precautionary [facility] Blood Bank Specimen Received. Specimen Anatomical Collection Method Collection Time Receive d Time (Source) Location / / Volume Laterality Blood 05/29/2021 6:30 AM 7:39 ADMINISTRATIVE COORDINATOR AM ADMINISTRATIVE COORDINATOR Binu Young MD LAB TRANSFUSION SERVICES Performing Organization Address City/[facility]/ZIP Code Phon e Number [facility] [place] [address] LACTATE (LACTIC ACID) (05/29/2021 6:30 AM ADMINISTRATIVE COORDINATOR) athologist Signature Lactate 1.6 0.7 - 2.1 [facility] mmol/L Specimen Anatomical Collection Method Collection Time Receive d Time (Source) Location / / Volume Laterality Blood 05/29/2021 6:30 AM 6:47 ADMINISTRATIVE COORDINATOR AM ADMINISTRATIVE COORDINATOR Narrative [facility] - 05/29/2021 6:47 AM ADMINISTRATIVE COORDINATOR Send specimen on ice! Binu Young MD LABORATORY Performing Organization Address City/[facility]/ZIP Code Phon e Number [facility] [place] [address] FIBRINOGEN (05/29/2021 6:30 AM ADMINISTRATIVE COORDINATOR) athologist Signature Fibrinogen 331 200 - 400 [facility] mg/dL Specimen Anatomical Collection Method Collection Time Receive d Time (Source) Location / / Volume Laterality Blood 05/29/2021 6:30 AM 7:35 ADMINISTRATIVE COORDINATOR AM ADMINISTRATIVE COORDINATOR Binu Young MD LABORATORY Performing Organization Address City/State/ZIP Code Phon e Number [facility] [place] [address] (ABNORMAL) ED HEMOGLOBIN TOTAL (ED ONLY) (05/29/2021 6:30 AM ADMINISTRATIVE COORDINATOR) P athologist Signature Hgb 9.4 (L) 11.5 - 15.7 [facility] g/dL Specimen Anatomical Collection Method Collection Time Receive d Time (Source) Location / / Volume Laterality Blood 05/29/2021 6:30 AM 6:46 ADMINISTRATIVE COORDINATOR AM ADMINISTRATIVE COORDINATOR Binu Young MD LABORATORY Performing Organization Address City/[facility]/ZIP Code Phon e Number [facility] [place] [address] (ABNORMAL) ED CHEMISTRY LABS(NA,K,CL,CO2,GLU,CREAT,CA-IONIZED,ANION GAP) (05/29/2021 6:30 AM ADMINISTRATIVE COORDINATOR) Analysis Performed At [facility] Time [facility] Sodium 139 135 - 148 [facility] mEq/L Chloride 104 92 - 108 [facility] mEq/L AnGap 12 8 - 16 [facility] mEq/L Glucose 115 (H) 70 - 100 [facility] mg/dL ICA, Actual 4.66 4.40 - [facility] 5.20 mg/dL ICA, pH 4.57 4.40 - [facility] Corrected 5.20 mg/dL Creatinine 6.98 (H) 0.50 - [facility] 1.00 mg/dL BICARB 22 22 - 26 [facility] mEq/L eGFR, High 6 (L) >=60 [facility] ml/min/1.7 3m2 Comment: Calculated using CKD-EPI equati on eGFR, Low 5 (L) >=60 ml/min/1.73m2 [facility] Comment: Calculated using CKD-EPI equati on Potassium 5.5 (H) 3.5 - 5.3 mEq/L [facility] Specimen Anatomical Collection Method Collection Time Receive d Time (Source) Location / / Volume Laterality Blood 05/29/2021 6:30 AM 6:46 ADMINISTRATIVE COORDINATOR AM ADMINISTRATIVE COORDINATOR Binu Young MD LABORATORY Performing Organization Address City/State/ZIP Code Phon e Number [facility] [place] [address] (ABNORMAL) CBC WITH PLTS/AUTO DIFF (05/29/2021 6:30 AM ADMINISTRATIVE COORDINATOR) Analysis Performed At [facility] Time [facility] WBC 8.49 4.00 - [facility] 10.00 k/cmm RBC 3.18 (L) 3.90 - [facility] 5.20 m/cmm Hgb 9.2 (L) 11.5 - [facility] 15.7 g/dL Hematocrit 27.9 (L) 34.0 - [facility] 45.0 % MCV 87.7 80.0 - [facility] 100.0 fL MCH 28.9 25.0 - [facility] 32.0 pg MCHC 33.0 31.0 - [facility] 36.0 g/dL RDW 17.9 (H) 11.5 - [facility] 14.5 % Plt 235 150 - 400 [facility] k/cmm MPV 10.3 6.5 - 12.5 [facility] fL NRBC 0.0 0.0 - 0.0 [facility] % Automated Abs 7.07 (H) 1.70 - [facility] Neutrophil 6.50 k/cmm Comment: Preliminary ANC, final result t o follow. Abs Immature Granulocyte 0.06 0.00 - 0.09 k/cmm [facility] Comment: The Immature Granulocyte Absolu te count contains metamyelocytes and myelocytes. Abs Neutrophil 7.07 (H) 1.70 - 6.50 k/cmm [facility] B Abs Lymphocyte 0.80 0.80 - 4.00 k/cmm [facility] B Abs Monocyte 0.46 0.20 - 1.00 k/cmm [facility] Abs Eosinophil 0.04 0.00 - 0.60 k/cmm [facility] B Abs Basophil 0.06 0.00 - 0.20 k/cmm [facility] Specimen Anatomical Collection Method Collection Time Receive d Time (Source) Location / / Volume Laterality Blood 05/29/2021 6:30 AM 7:36 ADMINISTRATIVE COORDINATOR AM ADMINISTRATIVE COORDINATOR Binu Young MD LABORATORY Performing Organization Address City/State/ZIP Code Phon e Number [facility] [place] [address] (ABNORMAL) BLOOD GASES (05/29/2021 6:30 AM ADMINISTRATIVE COORDINATOR) P athologist Signature PH Edwin 7.36 7.32 - 7.42 [facility] PCO2 Edwin 40 (L) 41 - 51 [facility] mmHG PO2 Edwin 33 25 - 40 [facility] mmHG Bicarb Edwin 22 (L) 24 - 28 [facility] mEq/L O2 Sat Edwin 48 % [facility] Base Exc Edwin -3.2 -10.0 - 2.0 [facility] mEq/L Specimen Anatomical Collection Method Collection Time Receive d Time (Source) Location / / Volume Laterality Blood Venous 05/29/2021 6:30 AM 6:47 ADMINISTRATIVE COORDINATOR AM ADMINISTRATIVE COORDINATOR Binu Young MD LABORATORY Performing Organization Address City/State/ZIP Code Phon e Number [facility] [place] [address] [address] [facility] ED US CRITICAL CARE (05/29/2021 6:17 AM ADMINISTRATIVE COORDINATOR) Anatomical Region Laterality Modality Ultrasound Specimen (Source) Anatomical Location Collection Method / Collectio n Time Received Time / Laterality Volume Narrative 05/29/2021 8:00 AM ADMINISTRATIVE COORDINATOR ED Cardiac Ultrasound Body Areas Imaged: Heart, Chest Wall/Elizabeth gs and Inferior Vena Cava Indications:Shortness of Breath/Hypoxia Window: Subxiphoid, Parasternal Short Ax is, Parasternal Long [place], IVC and Bilateral Lungs Findings: The left [...] (ZITHROMAX) 500 New Bag 05/29/2021 7:02 AM ADMINISTRATIVE COORDINATOR 500 mg 250 mL/hr mg in NaCl 0.9% 250 mL IVPB 500 mg, Indication (Select One): Infection - Suspected, SITE (Select all that apply): Lower Respiratory, Cultures Ordered? No, Intravenous, ONE TIME, 1 dose, On Sat05/29/21 at 0640 azithromycin (ZITHROMAX) 500 mg in New Bag 05/30/2021 9:46 AM ADMINISTRATIVE COORDINATOR 500 mg 250 mL/hr NaCl 0.9% 250 mL IVPB 500 mg, Indication (Select One): Infection - Suspected, SITE (Select all that apply): Lower Respiratory, Cultures Ordered? No, Intravenous, Q24H, First dose on Sat05/30/21 at 0800, Until Discontinued calcium acetate (PHOSLO) capsule 667 mg Given 05/30/2021 12:31 PM ADMINISTRATIVE COORDINATOR 667 mg 667 mg, Oral, TID WM, First dose on Sat05/30/21 at 0800, Until Discontinued Given 05/30/2021 8:39 AM ADMINISTRATIVE COORDINATOR 667 mg calcium gluconate 10% IV 3 g Given 05/29/2021 10:55 AM ADMINISTRATIVE COORDINATOR 3 g 3 g, IV Push, ONE TIME, 1 dose, On Sat05/29/21 at 1020 cefTRIAXone (ROCEPHIN) 2 g in NaCl New Bag 05/29/2021 6:37 AM ADMINISTRATIVE COORDINATOR 2 g 200 mL/hr 0.9% 100 mL IVPB 2 g, Indication (Select One): Infection - Suspected, SITE (Select all that apply): Lower Respiratory, Cultures Ordered? No, Intravenous, ONE TIME, 1 dose, On Sat05/29/21 at 0640 cefTRIAXone (ROCEPHIN) 2 g in NaCl New Bag 05/30/2021 9:07 AM ADMINISTRATIVE COORDINATOR 2 g 200 mL/hr 0.9% 100 mL IVPB 2 g, Indication (Select One): Infection - Suspected, SITE (Select all that apply): Lower Respiratory, Cultures Ordered? No, Intravenous, Q24H, First dose on Sat05/30/21 at 0800, Until Discontinued [place] MED REC REVIEW BY PHARMACY Discharge Date: 05/30/2021, Discharge Lo cation: Home, Anticipated Discharge Time: 10 am - 2 pm, Discharge Medication Orders: DC Med Orde rs Final, Does not apply, PROTOCOL, Starting on Sat05/30/21 at 1047, Until Sat05/30/21 at 1612 furosemide (LASIX) tablet 80 mg Given 05/30/2021 8:39 AM ADMINISTRATIVE COORDINATOR 80 mg 80 mg, Oral, DAILY, First dose on Sat05/30/21 at 0800, Until Discontinued lisinopril (PRINIVIL;ZESTRIL) tablet 2.5 mg Given 05/30/2021 8:39 AM ADMINISTRATIVE COORDINATOR 2.5 mg 2.5 mg, Oral, DAILY, First dose on Sat05/29/21 at 1805, Until Discontinued Given 05/29/2021 6:56 PM ADMINISTRATIVE COORDINATOR 2.5 mg metoprolol (TOPROL XL) XL half tablet 12.5 Given 05/30/2021 8:39 AM ADMINISTRATIVE COORDINATOR 12.5 mg mg 12.5 mg, Oral, DAILY, First dose on Sat05/29/21 at 1805, Until Discontinued Given 05/29/2021 6:56 PM ADMINISTRATIVE COORDINATOR 12.5 mg nitroGLYCERIN 50 mg in dextrose New Bag 05/29/2021 6:48 AM ADMINISTRATIVE COORDINATOR 20 mcg/min 6 mL/hr 5% 250 mL infusion 2-200 mcg/min (0.6-60 mL/hr), Intravenous, CONTINUOUS, Indications: Hypertension, Starting on Sat05/29/21 at 0650, Until Sat05/30/21 at 0625 ondansetron (ZOFRAN) 4 mg/2 mL injection 4 mg Given 05/29/2021 11:31 AM ADMINISTRATIVE COORDINATOR 4 mg 4 mg, IV Push, ONE TIME, 1 dose, On Sat05/29/21 at 1125 sodium zirconium cyclosilicate (LOKELMA) packet Given 05/29/2021 9:45 AM ADMINISTRATIVE COORDINATOR 10 g 10 g 10 g, Oral, ONE TIME, 1 dose, On Sat05/29/21 at 0820 documented in this encounter Active and Recently Administered Medications Times are shown in ADMINISTRATIVE COORDINATOR. Scheduled Medication Order 05/28/2021 05/29/2021 05/30/2021 azithromycin [...] Sat05/30/21 at 0800, Until Di scontinued heparin 67068 UNITS/mL injection 2,500 UNITS 1834 (Not Given [...]
== END 2022-05-06 02:04 | disposition home or self-care (01) ==
PROVIDERS: Emergency Provider Family Medicine; PCP Family Medicine
DX: L76.22 Postprocedural hemorrhage of skin and subcutaneous tissue following other procedure (principal)
CPT/HCPCS: 12001; 99282; 99283

== ENCOUNTER 2022-08-18 04:12 | Outpatient (CLI) | payer MEDICARE, SELFPAY | END 2022-08-18 04:13 | disposition home or self-care (01) | LOC: AMB 08-20 03:20 | PROVIDERS: PCP Family Medicine; Visit Provider Family Medicine | DX: K92.1 Melena (principal) | CPT/HCPCS: A0425; A0427 ==

== ENCOUNTER 2022-08-18 04:52 | Emergency (ER) | payer MEDICARE, SELFPAY ==
[2022-08-18] VITALS (81 sets, daily range): BP systolic 54–151; BP diastolic 27–93; PULSE 53–123; RESP 16–22; TEMP 35.6–37.4; O2SAT 86–100
--- NOTE | 2022-08-18 04:57 | ED_ITS ---
HPI - General Adult General Chief complaint: GI Bleed <Gaston Simeon MD - Last Filed: 08/18/22 07:23> Stated complaint: GI Bleed <Gaston Simeon MD - Last Filed: 08/18/22 07:23> Time Seen by Provider: 08/18/22 04:55 <Gaston Simeon MD - Last Filed: 08/18/22 07:23> History of Present Illness HPI narrative: Pt is a 81 year old woman with a history of CHF and Dialysis who has been vomiting and passing bright red blood per rectum for the past 24 hours. Pt did go to dialysis yesterday which went fine. Pt called for an ambulance this morning as her symptoms are worsening and the patient feels very weak. Pt remains nauseated. Pt has no abd pain. No fever or chills. She suspects that she may have blood in her urine as well. Pt is not short of breath and has no chest pain. No similar symptoms previously. <Gaston Simeon MD - Last Filed: 08/18/22 07:23> Related Data Home medications: Home Medications Medication Instructions Recorded Confirmed calcium acetate 667 mg tablet 667 mg PO BID 03/06/22 04/25/22 Previous Rx's Medication Instructions Recorded furosemide 80 mg tablet 80 mg PO DAILY #30 tabs 03/06/22 lisinopril 2.5 mg tablet 2.5 mg PO DAILY #30 tabs 03/06/22 metoprolol succinate 25 mg 25 mg PO DAILY #30 tabs 03/06/22 tablet,extended release 24 hr omeprazole 20 mg capsule,delayed 20 mg PO DAILY #90 caps 03/06/22 release <Gaston Simeon MD - Last Filed: 08/18/22 07:23> Allergies/adverse reactions: Allergies Allergy/AdvReac Type Severity Reaction Status Date / Time iron Allergy Intermediate Itchy Verified 08/18/22 06:42 <Gaston Simeon MD - Last Filed: 08/18/22 07:23> Review of Systems Status of ROS: Reports: 10 or more systems reviewed and unremarkable except as noted in History and below <Gaston Simeon MD - Last Filed: 08/18/22 07:23> [facility] Medical History: Medical History (Updated 08/18/22 @ 18:34 by Norma Ruiz MD) Congestive heart failure End stage renal failure on dialysis Gastroesophageal reflux disease Hyperparathyroidism due to renal insufficiency Hypertension Left heart failure with left ejection fraction less than or equal to 30 percent Pneumonia (04/17/21) Situational anxiety <Gaston Simeon MD - Last Filed: 08/18/22 07:23> Surgical History: Surgical History History of total abdominal hysterectomy and bilateral salpingo-oophorectomy History of tubal ligation <Gaston Simeon MD - Last Filed: 08/18/22 07:23> Social History: Social History Narrative: SOCIAL HISTORY: Single. Recently moved from [place]. Living with her son and [id number] in [place]. 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 HABITS: non-smoker. No alcohol. Smoking Status: Never smoker Second hand tobacco smoke exposure: No How often do you have a drink containing alcohol: never AUDIT-C Alcohol total score: 0 Non-prescribed substance use: denies use service: No <Gaston Simeon MD - Last Filed: 08/18/22 07:23> Exam Narrative: Exam Narrative: EXAM GENERAL: Patient appears pale cachectic and frail EYES: No scleral icterus. THYROID: no thyroid nodules or thyromegaly. LYMPH: No supraclavicular or cervical lymphadenopathy. SKIN: Visible skin seen during exam normal or with benign process only. EXT: No dependent lower extremity pedal edema. HEART: Distant heart tones noted. LUNGS: Clear to auscultation bilaterally with no crackles or wheezes. ABD: Soft, non tender, non distended. PSYCH: Good eye contact, speech is not pressured. <Gaston Simeon MD - Last Filed: 08/18/22 07:23> Const: Vital Signs, click to edit/add: Vital Signs - 24 hr 08/18/22 05:11 08/18/22 05:47 08/18/22 05:49 Temperature 96.0 F L Pulse Rate Pulse Rate [Left P ulse Oximeter] 106 H Respiratory Rate 16 Blood Pressure 56/35 L 63/41 L Blood Pressure [Le ft Upper Arm] 89/52 L Pulse Oximetry 96 Oxygen Delivery Me thod Room Air 08/18/22 05:53 08/18/22 06:01 08/18/22 05:42 Temperature Pulse Rate Pulse Rate [Left P ulse Oximeter] Respiratory Rate Blood Pressure 67/43 L 75/47 L Blood Pressure [Le ft Upper Arm] 62/43 L Pulse Oximetry Oxygen Delivery Me thod 08/18/22 06:12 08/18/22 06:21 08/18/22 06:51 Temperature Pulse Rate Pulse Rate [Left P ulse Oximeter] Respiratory Rate Blood Pressure 78/55 L 112/59 L 109/56 L Blood Pressure [Le ft Upper Arm] Pulse Oximetry Oxygen Delivery Me thod 08/18/22 05:50 08/18/22 06:00 08/18/22 07:01 Temperature Pulse Rate Pulse Rate [Left P ulse Oximeter] 87 Respiratory Rate 20 Blood Pressure 107/52 L Blood Pressure [Le ft Upper Arm] 67/43 L 75/47 L Pulse Oximetry 96 Oxygen Delivery Me od Room Air 08/18/22 07:37 08/18/22 08:13 08/18/22 08:01 Temperature 98.5 F Pulse Rate 93 Pulse Rate [Left P ulse Oximeter] 95 Respiratory Rate 16 Blood Pressure 101/62 88/55 L Blood Pressure [Le ft Upper Arm] Pulse Oximetry 96 [facility] 08/18/22 08:13 08/18/22 08:20 08/18/22 08:30 Temperature Pulse Rate 96 98 Pulse Rate [Left P ulse Oximeter] Respiratory Rate Blood Pressure Blood Pressure [Le ft Upper Arm] Pulse Oximetry 97 98 95 Oxygen Delivery Me thod 08/18/22 08:31 08/18/22 08:50 08/18/22 08:52 Temperature Pulse Rate 97 Pulse Rate [Left P ulse Oximeter] Respiratory Rate Blood Pressure 83/47 L 88/49 L 101/57 L Blood Pressure [Le ft Upper Arm] Pulse Oximetry 96 Oxygen Delivery Me thod 08/18/22 09:03 08/18/22 09:08 08/18/22 09:11 Temperature Pulse Rate 53 L 102 H Pulse Rate [Left P ulse Oximeter] Respiratory Rate Blood Pressure 92/44 L Blood Pressure [Le ft Upper Arm] Pulse Oximetry 96 Oxygen Delivery Me thod 08/18/22 09:20 08/18/22 09:30 08/18/22 09:32 Temperature Pulse Rate 105 H 104 H 104 H Pulse Rate [Left P ulse Oximeter] Respiratory Rate Blood Pressure 90/40 L Blood Pressure [Le ft Upper Arm] Pulse Oximetry 96 86 L 97 Oxygen Delivery Me thod 08/18/22 09:40 08/18/22 09:50 08/18/22 10:00 Temperature Pulse Rate 108 H 108 H 123 H Pulse Rate [Left P ulse Oximeter] Respiratory Rate Blood Pressure Blood Pressure [Le ft Upper Arm] Pulse Oximetry 95 90 99 Oxygen Delivery Me thod 08/18/22 10:02 08/18/22 10:10 08/18/22 10:20 Temperature Pulse Rate 112 H 110 H 113 H Pulse Rate [Left P ulse Oximeter] Respiratory Rate Blood Pressure 93/45 L Blood Pressure [Le ft Upper Arm] Pulse Oximetry 99 97 98 Oxygen Delivery Me thod 08/18/22 10:30 08/18/22 10:32 08/18/22 10:39 Temperature Pulse Rate 105 H 106 H 107 H Pulse Rate [Left P ulse Oximeter] Respiratory Rate Blood Pressure 54/27 L 76/49 L Blood Pressure [Le ft Upper Arm] Pulse Oximetry 92 95 97 Oxygen Delivery Me thod 08/18/22 10:40 08/18/22 10:41 08/18/22 12:07 Temperature 99.1 F Pulse Rate 105 H 104 H 103 H Pulse Rate [Left P ulse Oximeter] Respiratory Rate 18 Blood Pressure 72/45 L 111/54 L Blood Pressure [Le ft Upper Arm] Pulse Oximetry 99 96 96 Oxygen Delivery Me thod 08/18/22 12:25 08/18/22 13:10 08/18/22 10:52 Temperature 99.1 F 98.7 F Pulse Rate 100 106 H 96 Pulse Rate [Left P ulse Oximeter] Respiratory Rate 18 22 Blood Pressure 93/63 116/65 Blood Pressure [Le ft Upper Arm] Pulse Oximetry 97 97 89 Oxygen Delivery Me thod 08/18/22 11:01 08/18/22 11:10 08/18/22 11:20 Temperature Pulse Rate 101 H 112 H Pulse Rate [Left P ulse Oximeter] Respiratory Rate Blood Pressure 89/39 L Blood Pressure [Le ft Upper Arm] Pulse Oximetry 94 100 Oxygen Delivery Me thod 08/18/22 11:30 08/18/22 11:33 08/18/22 11:40 Temperature Pulse Rate 101 H 103 H 101 H Pulse Rate [Left P ulse Oximeter] Respiratory Rate Blood Pressure 109/93 H Blood Pressure [Le ft Upper Arm] Pulse Oximetry 96 98 95 Oxygen Delivery Me thod 08/18/22 11:50 08/18/22 12:00 08/18/22 12:01 Temperature Pulse Rate 101 H 105 H 106 H Pulse Rate [Left P ulse Oximeter] Respiratory Rate Blood Pressure 111/54 L Blood Pressure [Le ft Upper Arm] Pulse Oximetry 95 97 96 Oxygen Delivery Me thod 08/18/22 12:10 08/18/22 12:20 08/18/22 12:26 Temperature Pulse Rate 105 H 106 H 100 Pulse Rate [Left P ulse Oximeter] Respiratory Rate Blood Pressure 93/63 Blood Pressure [Le ft Upper Arm] Pulse Oximetry 98 97 98 Oxygen Delivery Me thod 08/18/22 12:30 08/18/22 12:40 08/18/22 12:50 Temperature Pulse Rate 101 H 97 100 Pulse Rate [Left P ulse Oximeter] Respiratory Rate Blood Pressure Blood Pressure [Le ft Upper Arm] Pulse Oximetry 96 95 98 Oxygen Delivery Me thod 08/18/22 13:00 08/18/22 13:01 08/18/22 13:11 Temperature Pulse Rate 114 H 113 H 106 H Pulse Rate [Left P ulse Oximeter] Respiratory Rate Blood Pressure 151/92 H 116/65 Blood Pressure [Le ft Upper Arm] Pulse Oximetry 98 100 99 Oxygen Delivery Me thod 08/18/22 13:12 08/18/22 13:20 08/18/22 13:30 Temperature Pulse Rate 103 H 104 H 101 H Pulse Rate [Left P ulse Oximeter] Respiratory Rate Blood Pressure Blood Pressure [Le ft Upper Arm] Pulse Oximetry 96 97 97 Oxygen Delivery Me thod 08/18/22 13:31 08/18/22 13:36 08/18/22 13:38 Temperature Pulse Rate 101 H 101 H 100 Pulse Rate [Left P ulse Oximeter] Respiratory Rate Blood Pressure 79/45 L 82/66 L 96/60 Blood Pressure [Le ft Upper Arm] Pulse Oximetry 97 98 98 Oxygen Delivery Me thod 08/18/22 13:40 08/18/22 14:10 08/18/22 13:50 Temperature 99.3 F Pulse Rate 98 99 104 H Pulse Rate [Left P ulse Oximeter] Respiratory Rate 16 Blood Pressure 88/54 L Blood Pressure [Le ft Upper Arm] Pulse Oximetry 98 96 96 Oxygen Delivery Me thod 08/18/22 14:00 08/18/22 14:01 08/18/22 14:10 Temperature Pulse Rate 102 H 100 101 H Pulse Rate [Left P ulse Oximeter] Respiratory Rate Blood Pressure 82/45 L Blood Pressure [Le ft Upper Arm] Pulse Oximetry 98 97 97 Oxygen Delivery Me thod 08/18/22 14:11 08/18/22 14:20 08/18/22 14:30 Temperature Pulse Rate 102 H 99 103 H Pulse Rate [Left P ulse Oximeter] Respiratory Rate Blood Pressure 84/52 L Blood Pressure [Le ft Upper Arm] Pulse Oximetry 96 98 97 Oxygen Delivery Me thod 08/18/22 14:33 08/18/22 14:40 08/18/22 14:50 Temperature Pulse Rate 101 H 102 H 101 H Pulse Rate [Left P ulse Oximeter] Respiratory Rate Blood Pressure 92/42 L Blood Pressure [Le ft Upper Arm] Pulse Oximetry 97 97 97 Oxygen Delivery Me thod 08/18/22 15:00 08/18/22 15:01 08/18/22 15:10 Temperature Pulse Rate 95 95 100 Pulse Rate [Left P ulse Oximeter] Respiratory Rate Blood Pressure 110/50 L Blood Pressure [Le ft Upper Arm] Pulse Oximetry 97 97 96 Oxygen Delivery Me thod 08/18/22 15:20 08/18/22 15:32 08/18/22 15:00 Temperature 98.4 F Pulse Rate 94 109 H Pulse Rate [Left P ulse Oximeter] 95 Respiratory Rate 16 Blood Pressure Blood Pressure [Le ft Upper Arm] 110/50 L Pulse Oximetry 99 96 99 Oxygen Delivery Me thod Room Air <Gaston Simeon MD - Last Filed: 08/18/22 07:23> Vital Signs, click to edit/add: Vital Signs - 24 hr 08/18/22 05:11 08/18/22 05:47 08/18/22 05:49 Temperature 96.0 F L Pulse Rate Pulse Rate [Left P ulse Oximeter] 106 H Respiratory Rate 16 Blood Pressure 56/35 L 63/41 L Blood Pressure [Le ft Upper Arm] 89/52 L Pulse Oximetry 96 Oxygen Delivery Me thod Room Air 08/18/22 05:53 08/18/22 06:01 08/18/22 05:42 Temperature Pulse Rate Pulse Rate [Left P ulse Oximeter] Respiratory Rate Blood Pressure 67/43 L 75/47 L Blood Pressure [Le ft Upper Arm] 62/43 L Pulse Oximetry Oxygen Delivery Me thod 08/18/22 06:12 08/18/22 06:21 08/18/22 06:51 Temperature Pulse Rate Pulse Rate [Left P ulse Oximeter] Respiratory Rate Blood Pressure 78/55 L 112/59 L 109/56 L Blood Pressure [Le ft Upper Arm] Pulse Oximetry Oxygen Delivery Me thod 08/18/22 05:50 08/18/22 06:00 08/18/22 07:01 Temperature Pulse Rate Pulse Rate [Left P ulse Oximeter] 87 Respiratory Rate 20 Blood Pressure 107/52 L Blood Pressure [Le ft Upper Arm] 67/43 L 75/47 L Pulse Oximetry 96 Oxygen Delivery Me thod Room Air 08/18/22 07:37 08/18/22 08:13 08/18/22 08:01 Temperature 98.5 F Pulse Rate 93 Pulse Rate [Left P ulse Oximeter] 95 Respiratory Rate 16 Blood Pressure 101/62 88/55 L Blood Pressure [Le ft Upper Arm] Pulse Oximetry 96 Oxygen Delivery Me thod Room Air 08/18/22 08:13 08/18/22 08:20 08/18/22 08:30 Temperature Pulse Rate 96 98 Pulse Rate [Left P ulse Oximeter] Respiratory Rate Blood Pressure Blood Pressure [Le ft Upper Arm] Pulse Oximetry 97 98 95 Oxygen Delivery Me thod 08/18/22 08:31 08/18/22 08:50 08/18/22 08:52 Temperature Pulse Rate 97 Pulse Rate [Left P ulse Oximeter] Respiratory Rate Blood Pressure 83/47 L 88/49 L 101/57 L Blood Pressure [Le ft Upper Arm] Pulse Oximetry 96 Oxygen Delivery Me thod 08/18/22 09:03 08/18/22 09:08 08/18/22 09:11 Temperature Pulse Rate 53 L 102 H Pulse Rate [Left P ulse Oximeter] Respiratory Rate Blood Pressure 92/44 L Blood Pressure [Le ft Upper Arm] Pulse Oximetry 96 Oxygen Delivery Me thod 08/18/22 09:20 08/18/22 09:30 08/18/22 09:32 Temperature Pulse Rate 105 H 104 H 104 H Pulse Rate [Left P ulse Oximeter] Respiratory Rate Blood Pressure 90/40 L Blood Pressure [Le ft Upper Arm] Pulse Oximetry 96 86 L 97 Oxygen Delivery Me thod 08/18/22 09:40 08/18/22 09:50 08/18/22 10:00 Temperature Pulse Rate 108 H 108 H 123 H Pulse Rate [Left P ulse Oximeter] Respiratory Rate Blood Pressure Blood Pressure [Le ft Upper Arm] Pulse Oximetry 95 90 99 Oxygen Delivery Me thod 08/18/22 10:02 08/18/22 10:10 08/18/22 10:20 Temperature Pulse Rate 112 H 110 H 113 H Pulse Rate [Left P ulse Oximeter] Respiratory Rate Blood Pressure 93/45 L Blood Pressure [Le ft Upper Arm] Pulse Oximetry 99 97 98 Oxygen Delivery Me thod 08/18/22 10:30 08/18/22 10:32 08/18/22 10:39 Temperature Pulse Rate 105 H 106 H 107 H Pulse Rate [Left P ulse Oximeter] Respiratory Rate Blood Pressure 54/27 L 76/49 L Blood Pressure [Le ft Upper Arm] Pulse Oximetry 92 95 97 Oxygen Delivery Me thod 08/18/22 10:40 08/18/22 10:41 08/18/22 12:07 Temperature 99.1 F Pulse Rate 105 H 104 H 103 H Pulse Rate [Left P ulse Oximeter] Respiratory Rate 18 Blood Pressure 72/45 L 111/54 L Blood Pressure [Le ft Upper Arm] Pulse Oximetry 99 96 96 Oxygen Delivery Me thod 08/18/22 12:25 08/18/22 13:10 08/18/22 10:52 Temperature 99.1 F 98.7 F Pulse Rate 100 106 H 96 Pulse Rate [Left P ulse Oximeter] Respiratory Rate 18 22 Blood Pressure 93/63 116/65 Blood Pressure [Le ft Upper Arm] Pulse Oximetry 97 97 89 Oxygen Delivery Me thod 08/18/22 11:01 08/18/22 11:10 08/18/22 11:20 Temperature Pulse Rate 101 H 112 H Pulse Rate [Left P ulse Oximeter] Respiratory Rate Blood Pressure 89/39 L Blood Pressure [Le ft Upper Arm] Pulse Oximetry 94 100 Oxygen Delivery Me thod 08/18/22 11:30 08/18/22 11:33 08/18/22 11:40 Temperature Pulse Rate 101 H 103 H 101 H Pulse Rate [Left P ulse Oximeter] Respiratory Rate Blood Pressure 109/93 H Blood Pressure [Le ft Upper Arm] Pulse Oximetry 96 98 95 Oxygen Delivery Me thod 08/18/22 11:50 08/18/22 12:00 08/18/22 12:01 Temperature Pulse Rate 101 H 105 H 106 H Pulse Rate [Left P ulse Oximeter] Respiratory Rate Blood Pressure 111/54 L Blood Pressure [Le ft Upper Arm] Pulse Oximetry 95 97 96 Oxygen Delivery Me thod 08/18/22 12:10 08/18/22 12:20 08/18/22 12:26 Temperature Pulse Rate 105 H 106 H 100 Pulse Rate [Left P ulse Oximeter] Respiratory Rate Blood Pressure 93/63 Blood Pressure [Le ft Upper Arm] Pulse Oximetry 98 97 98 Oxygen Delivery Me thod 08/18/22 12:30 08/18/22 12:40 08/18/22 12:50 Temperature Pulse Rate 101 H 97 100 Pulse Rate [Left P ulse Oximeter] Respiratory Rate Blood Pressure Blood Pressure [Le ft Upper Arm] Pulse Oximetry 96 95 98 Oxygen Delivery Me thod 08/18/22 13:00 08/18/22 13:01 08/18/22 13:11 Temperature Pulse Rate 114 H 113 H 106 H Pulse Rate [Left P ulse Oximeter] Respiratory Rate Blood Pressure 151/92 H 116/65 Blood Pressure [Le ft Upper Arm] Pulse Oximetry 98 100 99 Oxygen Delivery Me thod 08/18/22 13:12 08/18/22 13:20 08/18/22 13:30 Temperature Pulse Rate 103 H 104 H 101 H Pulse Rate [Left P ulse Oximeter] Respiratory Rate Blood Pressure Blood Pressure [Le ft Upper Arm] Pulse Oximetry 96 97 97 Oxygen Delivery Me thod 08/18/22 13:31 08/18/22 13:36 08/18/22 13:38 Temperature Pulse Rate 101 H 101 H 100 Pulse Rate [Left P ulse Oximeter] Respiratory Rate Blood Pressure 79/45 L 82/66 L 96/60 Blood Pressure [Le ft Upper Arm] Pulse Oximetry 97 98 98 Oxygen Delivery Me thod 08/18/22 13:40 08/18/22 14:10 08/18/22 13:50 Temperature 99.3 F Pulse Rate 98 99 104 H Pulse Rate [Left P ulse Oximeter] Respiratory Rate 16 Blood Pressure 88/54 L Blood Pressure [Le ft Upper Arm] Pulse Oximetry 98 96 96 Oxygen Delivery Me thod 08/18/22 14:00 08/18/22 14:01 08/18/22 14:10 Temperature Pulse Rate 102 H 100 101 H Pulse Rate [Left P ulse Oximeter] Respiratory Rate Blood Pressure 82/45 L Blood Pressure [Le ft Upper Arm] Pulse Oximetry 98 97 97 Oxygen Delivery Me thod 08/18/22 14:11 08/18/22 14:20 08/18/22 14:30 Temperature Pulse Rate 102 H 99 103 H Pulse Rate [Left P ulse Oximeter] Respiratory Rate Blood Pressure 84/52 L Blood Pressure [Le ft Upper Arm] Pulse Oximetry 96 98 97 Oxygen Delivery Me thod 08/18/22 14:33 08/18/22 14:40 08/18/22 14:50 Temperature Pulse Rate 101 H 102 H 101 H Pulse Rate [Left P ulse Oximeter] Respiratory Rate Blood Pressure 92/42 L Blood Pressure [Le ft Upper Arm] Pulse Oximetry 97 97 97 Oxygen Delivery Me thod 08/18/22 15:00 08/18/22 15:01 08/18/22 15:10 Temperature Pulse Rate 95 95 100 Pulse Rate [Left P ulse Oximeter] Respiratory Rate Blood Pressure 110/50 L Blood Pressure [Le ft Upper Arm] Pulse Oximetry 97 97 96 Oxygen Delivery Me thod 08/18/22 15:20 08/18/22 15:32 08/18/22 15:00 Temperature 98.4 F Pulse Rate 94 109 H Pulse Rate [Left P ulse Oximeter] 95 Respiratory Rate 16 Blood Pressure Blood Pressure [Le ft Upper Arm] 110/50 L Pulse Oximetry 99 96 99 Oxygen Delivery Me thod Room Air <Norma Ruiz MD - Last Filed: 08/18/22 18:34> Course Course Hospital Course: Second IV is placed. IV hydration is begun. CBC, CMP, PT, PTT, Lactate, Type and Screen, UA, CT abd and pelvis ordered. IV protonix given. <Gaston Simeon MD - Last Filed: 08/18/22 07:23> Reevaluation(s) Reevaluation #1: TXA 1000 mg given IV. <Gaston Simeon MD - Last Filed: 08/18/22 07:23> Time: 05:55 <Gaston Simeon MD - Last Filed: 08/18/22 07:23> Reevaluation #2: Have asked that lab try to collect the remainder of the labs. CT consistent with Gastritis and Colitis. Case discussed with hospitalist who recommended transfer. <Gaston Simeon MD - Last Filed: 08/18/22 07:23> Time: 07:22 <Gaston Simeon MD - Last Filed: 08/18/22 07:23> Vital Signs Vital signs: Initial Vital Signs Temperature 96.0 F L 08/18/22 05:11 Temperature Source Temporal Artery Scan 08/18/22 05:11 Pulse Rate 106 H 08/18/22 05:11 Pulse Rhythm 08/18/22 05:11 Respiratory Rate 16 08/18/22 05:11 Blood Pressure 89/52 L 08/18/22 05:11 Blood Pressure Mean 64 08/18/22 05:11 Blood Pressure Position Supine 08/18/22 05:11 Pulse Oximetry 96 08/18/22 05:11 Oxygen Delivery Method 08/18/22 05:11 Vital Signs Temperature 96.0 F L 08/18/22 05:11 Pulse Rate 106 H 08/18/22 05:11 Respiratory Rate 16 08/18/22 05:11 Blood Pressure 89/52 L 08/18/22 05:11 Pulse Oximetry 96 08/18/22 05:11 Oxygen Delivery Method 08/18/22 05:11 Temperature 98.4 F 08/18/22 15:00 Pulse Rate 109 H 08/18/22 15:32 Respiratory Rate 16 08/18/22 15:00 Blood Pressure 110/50 L 08/18/22 15:01 Pulse Oximetry 96 08/18/22 15:32 Oxygen Delivery Method 08/18/22 15:00 <Gaston Simeon MD - Last Filed: 08/18/22 07:23> Initial Vital Signs Temperature 96.0 F L 08/18/22 05:11 Temperature Source Temporal Artery Scan 08/18/22 05:11 Pulse Rate 106 H 08/18/22 05:11 Pulse Rhythm 08/18/22 05:11 Respiratory Rate 16 08/18/22 05:11 Blood Pressure 89/52 L 08/18/22 05:11 Blood Pressure Mean 64 08/18/22 05:11 Blood Pressure Position Supine 08/18/22 05:11 Pulse Oximetry 96 08/18/22 05:11 Oxygen Delivery Method 08/18/22 05:11 Vital Signs Temperature 96.0 F L 08/18/22 05:11 Pulse Rate 106 H 08/18/22 05:11 Respiratory Rate 16 08/18/22 05:11 Blood Pressure 89/52 L 08/18/22 05:11 Pulse Oximetry 96 08/18/22 05:11 Oxygen Delivery Method 08/18/22 05:11 Temperature 98.4 F 08/18/22 15:00 Pulse Rate 109 H 08/18/22 15:32 Respiratory Rate 16 08/18/22 15:00 Blood Pressure 110/50 L 08/18/22 15:01 Pulse Oximetry 96 08/18/22 15:32 Oxygen Delivery Method 08/18/22 15:00 <Norma Ruiz MD - Last Filed: 08/18/22 18:34> Medical Decision Making MDM Narrative Medical decision making narrative: Took over the care this patient. She had received a L of normal saline and a repeat hemoglobin showed that her hemoglobin had dropped to 8.8. Her lactate went from 3.7-2.8. She was hemodynamically stable for a period of time, however her blood pressure started dropping again. Because of this we did order 1 unit of packed red blood cells as well as another L of normal saline. This brought her blood pressure back up into the upper 90s and low 100s where she remained during the rest of her stay in our ER. She did not require any pressors. She was otherwise feeling okay, denies any chest pain or shortness of breath. She had no episodes of diarrhea while she was here or bright red blood per rectum. Patient was transferred, in stable condition, to [facility] [place]. <Norma Ruiz MD - Last Filed: 08/18/22 18:34> Medical Records Medical records reviewed: Yes I reviewed the patient's medical records <Norma Ruiz MD - Last Filed: 08/18/22 18:34> Lab Data Lab results reviewed: Yes I reviewed the patient's lab results <Norma Ruiz MD - Last Filed: 08/18/22 18:34> Labs: Lab Results 08/18/22 08/18/22 08/18/22 Range/Units 05:32 05:32 05:32 WBC 9.05 (4.50-11.00) K/uL RBC 3.55 L (4.00-5.20) m/uL Hgb 10.1 L (12.0-16.0) gm/dL Hct 30.1 L (33.0-51.0) % MCV 85 (80-100) fL MCH 29 (26-34) pg MCHC 34 (32-36) gm/dL RDW Coeff of Erlinda 15.8 H (11.5-15.5) % Plt Count 198 (140-440) K/uL Neut % (Auto) 64.9 (42.0-72.0) % Lymph % (Auto) 24.3 (20-44) % [place] % (Auto) 8.0 (0.0-11.0) % Eos % (Auto) 1.1 (0.0-7.0) % Baso % (Auto) 1.1 (0.0-3.0) % Neut # (Auto) 5.88 (1.7-7.0) K/uL Lymph # (Auto) 2.20 (0.90-2.90) K/uL [place] # (Auto) 0.70 (0.00-0.90) K/UL Eos # (Auto) 0.10 (0.00-0.50) K/uL Baso # (Auto) 0.10 (0.00-0.30) K/uL INR (0.91-1.10) APTT (23-33) Seconds Sodium 143 (135-149) mmol/L Potassium 4.5 (3.6-5.1) mmol/L Chloride 99 (96-114) mmol/L Carbon Dioxide 27 (20-32) mmol/L BUN 68 H (7-30) mg/dL Creatinine 7.1 H (0.5-1.5) mg/dL Estimated GFR 5 ml/min Glucose 154 H (60-115) mg/dL Lactate (0.5-1.9) mmol/L Calcium 8.8 (8.4-10.6) mg/dL Total Bilirubin 0.9 (0.1-1.5) mg/dL AST 27 (12-35) U/L ALT 18 (4-35) U/L Alkaline Phosphatase 46 (40-150) U/L Troponin I (0.01-0.04) ng/mL Total Protein 6.3 (6.0-8.3) g/dL Albumin 3.8 (3.3-5.0) g/dL Blood Type O Positive Antibody Screen NEGATIVE Crossmatch (AHG) See Detail 08/18/22 08/18/22 08/18/22 Range/Units 07:24 07:24 07:24 WBC (4.50-11.00) K/uL RBC (4.00-5.20) m/uL Hgb (12.0-16.0) gm/dL Hct (33.0-51.0) % MCV (80-100) fL MCH (26-34) pg MCHC (32-36) gm/dL RDW Coeff of Erlinda (11.5-15.5) % Plt Count (140-440) K/uL Neut % (Auto) (42.0-72.0) % Lymph % (Auto) (20-44) % [place] % (Auto) (0.0-11.0) % Eos % (Auto) (0.0-7.0) % Baso % (Auto) (0.0-3.0) % Neut # (Auto) (1.7-7.0) K/uL Lymph # (Auto) (0.90-2.90) K/uL [place] # (Auto) (0.00-0.90) K/UL Eos # (Auto) (0.00-0.50) K/uL Baso # (Auto) (0.00-0.30) K/uL INR 1.08 (0.91-1.10) APTT 41 H (23-33) Seconds Sodium (135-149) mmol/L Potassium (3.6-5.1) mmol/L Chloride (96-114) mmol/L Carbon Dioxide (20-32) mmol/L BUN (7-30) mg/dL Creatinine (0.5-1.5) mg/dL Estimated GFR ml/min Glucose (60-115) mg/dL Lactate 3.7 H (0.5-1.9) mmol/L Calcium (8.4-10.6) mg/dL Total Bilirubin (0.1-1.5) mg/dL AST (12-35) U/L ALT (4-35) U/L Alkaline Phosphatase (40-150) U/L Troponin I 0.05 H (0.01-0.04) ng/mL Total Protein (6.0-8.3) g/dL Albumin (3.3-5.0) g/dL Blood Type Antibody Screen Crossmatch (AHG) 08/18/22 08/18/22 Range/Units 08:48 10:05 WBC (4.50-11.00) K/uL RBC (4.00-5.20) m/uL Hgb 8.8 L (12.0-16.0) gm/dL Hct (33.0-51.0) % MCV (80-100) fL MCH (26-34) pg MCHC (32-36) gm/dL RDW Coeff of Erlinda (11.5-15.5) % Plt Count (140-440) K/uL Neut % (Auto) (42.0-72.0) % Lymph % (Auto) (20-44) % [place] % (Auto) (0.0-11.0) % Eos % (Auto) (0.0-7.0) % Baso % (Auto) (0.0-3.0) % Neut # (Auto) (1.7-7.0) K/uL Lymph # (Auto) (0.90-2.90) K/uL [place] # (Auto) (0.00-0.90) K/UL Eos # (Auto) (0.00-0.50) K/uL Baso # (Auto) (0.00-0.30) K/uL INR (0.91-1.10) APTT (23-33) Seconds Sodium (135-149) mmol/L Potassium (3.6-5.1) mmol/L Chloride (96-114) mmol/L Carbon Dioxide (20-32) mmol/L BUN (7-30) mg/dL Creatinine (0.5-1.5) mg/dL Estimated GFR ml/min Glucose (60-115) mg/dL Lactate 2.8 H (0.5-1.9) mmol/L Calcium (8.4-10.6) mg/dL Total Bilirubin (0.1-1.5) mg/dL AST (12-35) U/L ALT (4-35) U/L Alkaline Phosphatase (40-150) U/L Troponin I (0.01-0.04) ng/mL Total Protein (6.0-8.3) g/dL Albumin (3.3-5.0) g/dL Blood Type Antibody Screen Crossmatch (AHG) <Gaston Simeon MD - Last Filed: 08/18/22 07:23> Lab Results 08/18/22 08/18/22 08/18/22 Range/Units 05:32 05:32 05:32 WBC 9.05 (4.50-11.00) K/uL RBC 3.55 L (4.00-5.20) m/uL Hgb 10.1 L (12.0-16.0) gm/dL Hct 30.1 L (33.0-51.0) % MCV 85 (80-100) fL MCH 29 (26-34) pg MCHC 34 (32-36) gm/dL RDW Coeff of Erlinda 15.8 H (11.5-15.5) % Plt Count 198 (140-440) K/uL Neut % (Auto) 64.9 (42.0-72.0) % Lymph % (Auto) 24.3 (20-44) % [place] % (Auto) 8.0 (0.0-11.0) % Eos % (Auto) 1.1 (0.0-7.0) % Baso % (Auto) 1.1 (0.0-3.0) % Neut # (Auto) 5.88 (1.7-7.0) K/uL Lymph # (Auto) 2.20 (0.90-2.90) K/uL [place] # (Auto) 0.70 (0.00-0.90) K/UL Eos # (Auto) 0.10 (0.00-0.50) K/uL Baso # (Auto) 0.10 (0.00-0.30) K/uL INR (0.91-1.10) APTT (23-33) Seconds Sodium 143 (135-149) mmol/L Potassium 4.5 (3.6-5.1) mmol/L Chloride 99 (96-114) mmol/L Carbon Dioxide 27 (20-32) mmol/L BUN 68 H (7-30) mg/dL Creatinine 7.1 H (0.5-1.5) mg/dL Estimated GFR 5 ml/min Glucose 154 H (60-115) mg/dL Lactate (0.5-1.9) mmol/L Calcium 8.8 (8.4-10.6) mg/dL Total Bilirubin 0.9 (0.1-1.5) mg/dL AST 27 (12-35) U/L ALT 18 (4-35) U/L Alkaline Phosphatase 46 (40-150) U/L Troponin I (0.01-0.04) ng/mL Total Protein 6.3 (6.0-8.3) g/dL Albumin 3.8 (3.3-5.0) g/dL Blood Type O Positive Antibody Screen NEGATIVE Crossmatch (AHG) See Detail 08/18/22 08/18/22 08/18/22 Range/Units 07:24 07:24 07:24 WBC (4.50-11.00) K/uL RBC (4.00-5.20) m/uL Hgb (12.0-16.0) gm/dL Hct (33.0-51.0) % MCV (80-100) fL MCH (26-34) pg MCHC (32-36) gm/dL RDW Coeff of Erlinda (11.5-15.5) % Plt Count (140-440) K/uL Neut % (Auto) (42.0-72.0) % Lymph % (Auto) (20-44) % [place] % (Auto) (0.0-11.0) % Eos % (Auto) (0.0-7.0) % Baso % (Auto) (0.0-3.0) % Neut # (Auto) (1.7-7.0) K/uL Lymph # (Auto) (0.90-2.90) K/uL [place] # (Auto) (0.00-0.90) K/UL Eos # (Auto) (0.00-0.50) K/uL Baso # (Auto) (0.00-0.30) K/uL INR 1.08 (0.91-1.10) APTT 41 H (23-33) Seconds Sodium (135-149) mmol/L Potassium (3.6-5.1) mmol/L Chloride (96-114) mmol/L Carbon Dioxide (20-32) mmol/L BUN (7-30) mg/dL Creatinine (0.5-1.5) mg/dL Estimated GFR ml/min Glucose (60-115) mg/dL Lactate 3.7 H (0.5-1.9) mmol/L Calcium (8.4-10.6) mg/dL Total Bilirubin (0.1-1.5) mg/dL AST (12-35) U/L ALT (4-35) U/L Alkaline Phosphatase (40-150) U/L Troponin I 0.05 H (0.01-0.04) ng/mL Total Protein (6.0-8.3) g/dL Albumin (3.3-5.0) g/dL Blood Type Antibody Screen Crossmatch (AHG) 08/18/22 08/18/22 Range/Units 08:48 10:05 WBC (4.50-11.00) K/uL RBC (4.00-5.20) m/uL Hgb 8.8 L (12.0-16.0) gm/dL Hct (33.0-51.0) % MCV (80-100) fL MCH (26-34) pg MCHC (32-36) gm/dL RDW Coeff of Erlinda (11.5-15.5) % Plt Count (140-440) K/uL Neut % (Auto) (42.0-72.0) % Lymph % (Auto) (20-44) % [place] % (Auto) (0.0-11.0) % Eos % (Auto) (0.0-7.0) % Baso % (Auto) (0.0-3.0) % Neut # (Auto) (1.7-7.0) K/uL Lymph # (Auto) (0.90-2.90) K/uL [place] # (Auto) (0.00-0.90) K/UL Eos # (Auto) (0.00-0.50) K/uL Baso # (Auto) (0.00-0.30) K/uL INR (0.91-1.10) APTT (23-33) Seconds Sodium (135-149) mmol/L Potassium (3.6-5.1) mmol/L Chloride (96-114) mmol/L Carbon Dioxide (20-32) mmol/L BUN (7-30) mg/dL Creatinine (0.5-1.5) mg/dL Estimated GFR ml/min Glucose (60-115) mg/dL Lactate 2.8 H (0.5-1.9) mmol/L Calcium (8.4-10.6) mg/dL Total Bilirubin (0.1-1.5) mg/dL AST (12-35) U/L ALT (4-35) U/L Alkaline Phosphatase (40-150) U/L Troponin I (0.01-0.04) ng/mL Total Protein (6.0-8.3) g/dL Albumin (3.3-5.0) g/dL Blood Type Antibody Screen Crossmatch (AHG) <Norma Ruiz MD - Last Filed: 08/18/22 18:34> Imaging Data CT scan - abdomen: Attestation: I have reviewed the pertinent imaging results. <Norma Ruiz MD - Last Filed: 08/18/22 18:34> Radiologist's impression: CT examination of the abdomen and pelvis was performed following the uneventful intravenous administration of 61 cc of Isovue 370. Thin section axial images were obtained from the lung bases through the pubic symphysis. Oral contrast was not administered. Please note that all CT scans at this facility use dose modulation, iterative reconstruction, and/or weight-based dosing when appropriate to reduce radiation dose to as low as reasonably achievable. FINDINGS: LUNG BASES: Basilar atelectasis or scarring. Enlarged heart at the lung bases. LIVER/BILIARY SYSTEM:Steatosis. Scattered low-density lesions likely all cysts. No biliary ductal dilatation.Probable tiny gallstone. The gallbladder otherwise appears normal ADRENALS: Normal KIDNEYS, URETERS and BLADDER:The kidneys are mildly enlarged. They contain too numerous to count cysts and hyperdense lesions most of which likely represent hemorrhagic or proteinaceous cysts. Bilaterally, there are some lesions that are unusually complex and could potentially be neoplastic. The most worrisome is at the medial aspect the right lower measuring about 3.9 centimeters. Recommend a follow-up multiphase study with and without contrast, at either a CT or an MRI, in the nonacute care setting. There are numerous renal stones but no obstructive uropathy. The bladder as visualized appears normal. SPLEEN:Normal appearance. PANCREAS: No focal mass but abnormally dilated pancreatic duct. This measures up to 7 millimeters. Greater than 3 millimeters is considered abnormal. RETROPERITONEUM and MESENTERY: There is no mass, adenopathy or aortic aneurysm. Dense atherosclerotic vascular calcifications GASTROINTESTINAL SYSTEM: Prominence of the gastric rugae could represent gastritis. No evidence of bowel obstruction. There is abnormal thickening of the wall of the colon especially the sigmoid, descending colon in the left half of the transverse colon. This is consistent with colitis. No intramural air, free air or collection. PELVIS: No mass, adenopathy or free fluid. OSSEOUS STRUCTURES and ABDOMINAL WALL: Degenerative changes.No significant acute abdominal wall abnormality. Intermuscular hematoma involving the right gluteus muscles incidentally noted. OTHER: No free fluid or free air. IMPRESSION: 1. Findings consistent with colitis involving the left half of the transverse colon, the descending colon and portions of the sigmoid colon. No intramural air, free air or collection. 2. Mild thickening of the gastric rugae could represent gastritis. 3. Abnormal kidneys. The pattern suggests a relatively mild phenotype of autosomal dominant polycystic kidney disease with simple cyst and complex cysts. Some of these are unusually complex and should be evaluated by follow-up CT or MRI at a clinically appropriate time 4. Pancreatic ductal dilation without visible cause. No visible pancreatic mass or stone. Follow-up by MRCP should be considered at a clinically appropriate time 5. Other incidental nonacute appearing findings as above <Norma Ruiz MD - Last Filed: 08/18/22 18:34> Critical Care Time Critical Care Time Critical Care Time: Yes Attestation: The patient required my highest level preparedness to intervene emergently and I personally spent this critical care time directly and personally managing the patient. This critical care time included: Obtaining a history; Examining the patient; Pulse oximetry; Ordering and reviewing of studies; Arranging urgent treatment with development of a management plan; Evaluation of patients response to treatment; Frequent reassessment discussions with other providers. This critical care time was performed to assess and manage the high probability of imminent life-threatening deterioration that could result in multiorgan failure. It was exclusive of separate billable procedures and treating other patients and teaching time. <Norma Ruiz MD - Last Filed: 08/18/22 18:34> Total Critical Care Time in Minutes: 120 <Norma Ruiz MD - Last Filed: 08/18/22 18:34> Discharge Plan Discharge Clinical Impression: Acute GI bleeding, Chronic renal failure, Hypotension <Gaston Simeon MD - Last Filed: 08/18/22 07:23> Patient Disposition: Xfer Other <Gaston Simeon MD - Last Filed: 08/18/22 07:23> Discharge Location: [facility] <Gaston Simeon MD - Last Filed: 08/18/22 07:23> Condition: Stable <Gaston Simeon MD - Last Filed: 08/18/22 07:23> Prescriptions: No Action calcium acetate 667 mg tablet 667 mg PO BID omeprazole 20 mg capsule,delayed release(DR/EC) 20 mg PO DAILY Qty: 90 3RF lisinopril 2.5 mg tablet 2.5 mg PO DAILY Qty: 30 5RF metoprolol succinate 25 mg tablet extended release 24 hr 25 mg PO DAILY Qty: 30 5RF furosemide 80 mg tablet 80 mg PO DAILY Qty: 30 5RF <Gaston Simeon MD - Last Filed: 08/18/22 07:23> Follow Up/Referrals: Louis Reyes MD [Primary Care Provider] - <Gaston Simeon MD - Last Filed: 08/18/22 07:23>
--- NOTE | 2022-08-18 05:03 | CRLHL7_ITS ---
For Patients: As a result of the 21st Century Cures Act, medical imaging exams and procedure reports are released immediately into your electronic medical record. You may view this report before your referring provider. If you have questions, please contact your health care provider. INDICATION: GI bleeding COMPARISON: None TECHNIQUE: CT examination of the abdomen and pelvis was performed following the uneventful intravenous administration of 61 cc of Isovue 370. Thin section axial images were obtained from the lung bases through the pubic symphysis. Oral contrast was not administered. Please note that all CT scans at this facility use dose modulation, iterative reconstruction, and/or weight-based dosing when appropriate to reduce radiation dose to as low as reasonably achievable. FINDINGS: LUNG BASES: Basilar atelectasis or scarring. Enlarged heart at the lung bases. LIVER/BILIARY SYSTEM:Steatosis. Scattered low-density lesions likely all cysts. No biliary ductal dilatation.Probable tiny gallstone. The gallbladder otherwise appears normal ADRENALS: Normal KIDNEYS, URETERS and BLADDER:The kidneys are mildly enlarged. They contain too numerous to count cysts and hyperdense lesions most of which likely represent hemorrhagic or proteinaceous cysts. Bilaterally, there are some lesions that are unusually complex and could potentially be neoplastic. The most worrisome is at the medial aspect the right lower measuring about 3.9 centimeters. Recommend a follow-up multiphase study with and without contrast, at either a CT or an MRI, in the nonacute care setting. There are numerous renal stones but no obstructive uropathy. The bladder as visualized appears normal. SPLEEN:Normal appearance. PANCREAS: No focal mass but abnormally dilated pancreatic duct. This measures up to 7 millimeters. Greater than 3 millimeters is considered abnormal. RETROPERITONEUM and MESENTERY: There is no mass, adenopathy or aortic aneurysm. Dense atherosclerotic vascular calcifications GASTROINTESTINAL SYSTEM: Prominence of the gastric rugae could represent gastritis. No evidence of bowel obstruction. There is abnormal thickening of the wall of the colon especially the sigmoid, descending colon in the left half of the transverse colon. This is consistent with colitis. No intramural air, free air or collection. PELVIS: No mass, adenopathy or free fluid. OSSEOUS STRUCTURES and ABDOMINAL WALL: Degenerative changes.No significant acute abdominal wall abnormality. Intermuscular hematoma involving the right gluteus muscles incidentally noted. OTHER: No free fluid or free air. IMPRESSION: 1. Findings consistent with colitis involving the left half of the transverse colon, the descending colon and portions of the sigmoid colon. No intramural air, free air or collection. 2. Mild thickening of the gastric rugae could represent gastritis. 3. Abnormal kidneys. The pattern suggests a relatively mild phenotype of autosomal dominant polycystic kidney disease with simple cyst and complex cysts. Some of these are unusually complex and should be evaluated by follow-up CT or MRI at a clinically appropriate time 4. Pancreatic ductal dilation without visible cause. No visible pancreatic mass or stone. Follow-up by MRCP should be considered at a clinically appropriate time 5. Other incidental nonacute appearing findings as above Please note that all CT scans at this facility use dose modulation, iterative reconstruction, and/or weight-based dosing when appropriate to reduce radiation dose to as low as reasonably achievable. Dictated by Freddy Montes MD @ 08/18/2022 7:02:07 AM (Electronically Signed)
[2022-08-18] MEDS: 0.9 % SODIUM CHLORIDE 1000 ml 1,000 ML IV ×2 (05:10→10:45)
[2022-08-18] MEDS: ONDANSETRON 2 MG/ML inj 4 MG IVP (05:30)
[2022-08-18] MEDS: PANTOPRAZOLE SODIUM 40 MG INJ IVP (05:40)
[2022-08-18 05:44] LABS: Basophils Percent Auto 1.1 % (0.0-3.0); Eosinophils Percent Auto 1.1 % (0.0-7.0); Hematocrit 30.1 % (33.0-51.0); Hemoglobin* 10.1 gm/dL (12.0-16.0); Immature Granulocytes Abs Auto 0.05 K/uL (0.00-0.30); Immature Granulocytes Pct Auto 0.6 %; Lymphocytes Percent Auto 24.3 % (20-44); Mean Corpuscular HGB Conc 34 gm/dL (32-36); Mean Corpuscular Hemoglobin 29 pg (26-34); Mean Corpuscular Volume 85 fL (80-100); Neutrophils Absolute Auto 5.88 K/uL (1.7-7.0); Neutrophils Percent Auto 64.9 % (42.0-72.0); Platelet Count* 198 K/uL (140-440); RDW Coefficient of Variation % 15.8 % (11.5-15.5); Red Blood Count 3.55 m/uL (4.00-5.20); Slide Review Reflex No; White Blood Count* 9.05 K/uL (4.50-11.00)
[2022-08-18 05:59] LABS: Albumin* 3.8 g/dL (3.3-5.0); Chloride* 99 mmol/L (96-114); Potassium* 4.5 mmol/L (3.6-5.1); Sodium* 143 mmol/L (135-149)
[2022-08-18 06:02] LABS: Alanine Aminotransferase* 18 U/L (4-35); Alkaline Phosphatase* 46 U/L (40-150); Aspartate Amino Transferase* 27 U/L (12-35); Bilirubin Total* 0.9 mg/dL (0.1-1.5); Blood Urea Nitrogen* 68 mg/dL (7-30); Calcium* 8.8 mg/dL (8.4-10.6); Carbon Dioxide* 27 mmol/L (20-32); Creatinine* 7.1 mg/dL (0.5-1.5); Estimated Glomerular Filt Rate 5 ml/min; Glucose* 154 mg/dL (60-115); Total Protein* 6.3 g/dL (6.0-8.3)
[2022-08-18] MEDS: TRANEXAMIC ACID 100 MG/ML INJ 1000 MG IV (06:04)
--- NOTE | 2022-08-18 06:25 | ED.NURSE ---
vonnie manriquez applied to pt.
[2022-08-18 07:28] LABS: Lactate* 3.7 mmol/L (0.5-1.9)
[2022-08-18 07:52] LABS: INR 1.08 (0.91-1.10); Prothrombin Time 14.6 Seconds
[2022-08-18 07:53] LABS: Partial Thromboplastin Time* 41 Seconds (23-33)
[2022-08-18 08:05] LABS: Troponin I* 0.05 ng/mL (0.01-0.04)
--- NOTE | 2022-08-18 08:06 | ED.NURSE ---
continues to ooze tarry stools -small amt. is alert and talking to family. lab was able to draw blood. co vague left nipple soreness. was asking for tylenol and water, declined per dr guillen' order. son has been in room. sinus tachy on monitor.
[2022-08-18 08:55] LABS: Hemoglobin* 8.8 gm/dL (12.0-16.0)
--- NOTE | 2022-08-18 09:30 | ED.NURSE ---
has been warm and dry, alert and oriented. wants to get up by herself. did well with earlier assist to commode. having small amt of tarry stools.
--- NOTE | 2022-08-18 10:04 | ED.NURSE ---
was up to commode. did have mucus with specs of black stool. no dizziness.
[2022-08-18 10:12] LABS: Lactate* 2.8 mmol/L (0.5-1.9)
--- NOTE | 2022-08-18 10:50 | ED.NURSE ---
dr albright aware of low bp 72/45. order received. is getting 1000 ns over 1 hour.
[2022-08-18] MEDS: 0.9 % SODIUM CHLORIDE 250 ml IV (12:13)
--- NOTE | 2022-08-18 12:39 | ED.NURSE ---
report to Chris. he will call back when bed is ready. anticipated 3 pm.
--- NOTE | 2022-08-18 12:43 | ED.NURSE ---
verbal consent was obtained prior to start and signed written consent.
--- NOTE | 2022-08-18 14:38 | ED.NURSE ---
temperatures taken orally with documentation during blood transfusions. daughter aiden was aware that she will be transferred to [facility]. has been resting.
--- NOTE | 2022-08-18 15:10 | ED.NURSE ---
dispatch was called and anw accepted, further report given to eleno. will go to [id number].
--- NOTE | 2022-08-18 16:44 | ED.NURSE ---
[facility] called and aware of transferring now.family was informed earlier-aiden was called.
== END 2022-08-18 16:30 | disposition other institution (70) ==
PROVIDERS: Internal Medicine; Emergency Provider Family Medicine; PCP Family Medicine
DX: K62.5 Hemorrhage of anus and rectum (principal); N19 Unspecified kidney failure; I95.9 Hypotension, unspecified
CPT/HCPCS: 36415; 36430; 74177; 80053; 81003; 83605; 84484; 85018; 85025; 85610; 85730; 86850; 86900; 86901; 86922; 96374; 96375; 99285; 99291; 99292; C9113; J2405; J7030; J7050; P9016; Q9967

== ENCOUNTER 2022-08-18 16:15 | Outpatient (CLI) | payer MEDICARE, SELFPAY | END 2022-08-18 16:16 | disposition home or self-care (01) | LOC: AMB 08-20 07:25 | PROVIDERS: PCP Family Medicine; Visit Provider Family Medicine | DX: K92.2 Gastrointestinal hemorrhage, unspecified (principal) | CPT/HCPCS: A0425; A0426 ==

== ENCOUNTER 2023-01-28 03:12 | Emergency (ER) | payer MEDICARE, SELFPAY ==
[2023-01-28 03:22] VITALS: BP 221/94; PULSE 84; RESP 20; TEMP 36.6; O2SAT 92; BMI 20.4
--- NOTE | 2023-01-28 03:36 | CRLHL7_ITS ---
For Patients: As a result of the Century Cures Act, medical imaging exams and procedure reports are released immediately into your electronic medical record. You may view this report before your referring provider. If you have questions, please contact your health care provider. INDICATION: Dyspnea COMPARISON: May 29, 2021 TECHNIQUE: Two views of the chest were acquired 12/19/2022 FINDINGS: TUBES AND LINES: None. HEART AND MEDIASTINUM: Moderate to severe enlargement of the heart similar in appearance to the prior study.. LUNGS AND PLEURAL SPACES: Vascular congestion and findings of mild interstitial edema.The pleural spaces are unremarkable. OSSEOUS STRUCTURES: Age-appropriate appearance. No acute focal finding. IMPRESSION: Unchanged enlargement of the heart. Vascular congestion and findings of mild interstitial edema. Dictated by Freddy Montes MD @ 01/28/2023 4:15:27 AM (Electronically Signed)
--- NOTE | 2023-01-28 03:43 | ED_ITS ---
HPI - General Adult General Chief complaint: Shortness of Breath/Dyspnea Stated complaint: Shortness of Breath Time Seen by Provider: 01/28/23 03:13 Source: patient and family Mode of arrival: ambulatory Limitations: no limitations History of Present Illness HPI narrative: 82-year-old female presents the emergency department with gradual onset shortness of breath. Reports that she woke about an hour ago with urge to go to the bathroom, had a loose bowel movement and did urinate. She reports that she feels like it is hard to catch her breath when she lies flat this morning. No sudden onset, states this was gradual. There is no chest pain or dizziness. She checked her blood pressure and noted it was elevated. She is a dialysis patient, last dialysis was Saturday, it is currently Saturday morning and she is planning to head to dialysis as scheduled in a couple of hours. She does not regularly monitor her weight at home, it is checked at dialysis. No fevers or recent illness, no productive cough. She was worried that she would be sent here from dialysis if she was not checked out 1st and therefore came to the emergency department. No history of AFib, no prior cardiac symptoms. Denies history of coronary artery disease. She makes very little urine, typically only urinating once every day or 2 and did already urinate today. She does not believe that there was any alteration in her dialysis pattern or fluid removed. She does not feel like she has been drinking more liquids than usual but does admit to some root beer over the weekend and it has been exquisitely hot. She denies any missed doses of her medications or any recent changes to these. No injury or trauma. Past medical history notable for end-stage renal disease, hypertension, hyperparathyroidism secondary to renal disease. She is a nonsmoker, continues to live independently. She is accompanied by family today. Medications reviewed and updated, reported as accurate. Last ED note 03/09/2022 was reviewed ROS is notable for the dyspnea and also some GERD symptoms this morning. Related Data Home Medications Medication Instructions Recorded Confirmed calcium acetate 667 mg tablet 667 mg PO BID 03/06/22 11/06/22 lidocaine-prilocaine 2.5 %-2.5 % topical DIRECTED 11/06/22 11/06/22 topical cream vit B,C-folic ac 800 mcg-zinc 12.5 1 tab PO QPM 11/06/22 11/06/22 mg-selen-D3 2,000 unit-vit E tablet (RenaPlex-D) Previous Rx's Medication Instructions Recorded furosemide 80 mg tablet 80 mg PO DAILY #90 tabs 11/06/22 lisinopril 2.5 mg tablet 2.5 mg PO DAILY #90 tabs 11/06/22 metoprolol succinate 25 mg 25 mg PO DAILY #90 tabs 11/06/22 tablet,extended release 24 hr omeprazole 20 mg capsule,delayed 20 mg PO DAILY #90 caps 11/06/22 release Allergies Allergy/AdvReac Type Severity Reaction Status Date / Time iron Allergy Intermediate Itchy Verified 11/06/22 07:33 [facility] Medical History Situational anxiety ?F41.8 - Other specified anxiety disorders (ICD-10) Pneumonia (04/17/21) ?J18.9 - Pneumonia, unspecified organism (ICD-10) Left heart failure with left ejection fraction less than or equal to 30 percent ?I50.1 - Left ventricular failure, unspecified (ICD-10) Hypertension ?I10 - Essential (primary) hypertension (ICD-10) Hyperparathyroidism due to renal insufficiency ?N25.81 - Secondary hyperparathyroidism of renal origin (ICD-10) Gastroesophageal reflux disease ?K21.9 - Gastro-esophageal reflux disease without esophagitis (ICD-10) End stage renal failure on dialysis ?N18.6 - End stage renal disease (ICD-10) ?Z99.2 - Dependence on renal dialysis (ICD-10) Congestive heart failure ?I50.9 - Heart failure, unspecified (ICD-10) Surgical History History of tubal ligation ?Z98.51 - Tubal ligation status (ICD-10) History of total abdominal hysterectomy and bilateral salpingo-oophorectomy ?Z90.710 - Acquired absence of both cervix and uterus (ICD-10) ?Z90.722 - Acquired absence of ovaries, bilateral (ICD-10) ?Z90.79 - Acquired absence of other genital organ(s) (ICD-10) Social History Narrative: SOCIAL HISTORY: Single. Moved from [place]. Living with her son and [id number] in [place]. 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 HABITS: non-smoker. No alcohol. Smoking Status: Current some day smoker What tobacco products do you use: cigarettes Second hand tobacco smoke exposure: No How often do you have a drink containing alcohol: never AUDIT-C Alcohol total score: 0 Non-prescribed substance use: denies use Little interest or pleasure in doing things: not at all Feeling down, depressed, or hopeless: not at all service: No Exam Const: Vital Signs, click to edit/add: Vital Signs - 24 hr 01/28/23 03:22 01/28/23 04:11 Temperature 97.9 F Pulse Rate [Left P ulse Oximeter] 84 81 Respiratory Rate 20 20 Blood Pressure [Le ft Upper Arm] 221/94 H 218/101 H Pulse Oximetry 92 94 Oxygen Delivery Me thod Room Air Room Air Documenting provider has reviewed patient's vital signs: yes Common normals: no apparent distress General appearance: cooperative, comfortable and well kempt Other: Good historian. Alert, able to speak in full sentences. HENMT: Common normals: normocephalic Head and scalp: normocephalic Face and sinus: normal facial exam Mouth: oral and palatal mucosa normal Eye: Common normals: conjunctivae normal General eye: normal appearance of both eyes Conjunctiva: conjunctiva(e) normal Neck & C-Spine: Common normals: no lymphadenopathy Cervical spine: cervical ROM normal Resp: Common normals: normal respiratory effort Other: Fine crackles both bases. Normal respiratory effort with no use of accessory muscles. Decreased breath sounds in the lower half of the lung bazan. Cardio: Common normals: regular rate, regular rhythm, S1 normal heart sound and S2 normal heart sound Rate: regular rate Rhythm: regular rhythm Heart sounds: S1 normal and S2 normal Other: S4 present. GI: Common normals: Normal to inspection, nondistended, normoactive bowel sounds present, soft to palpation, non-tender, no hepatosplenomegaly and no masses Palpation: soft and no hepatosplenomegaly Extremity: Common normals: normal to inspection, normal capillary refill and no pedal edema Neuro: Speech: speech normal Motor exam: no movement abnormalities noted Psych: Appearance: well kempt Attitude: calm and engaged Insight: insigh t good Judgement: judgment good Skin: Common normals: no rashes or lesions noted General skin exam: no rashes or lesions noted Course Course Hospital Course: Paroxysmal nocturnal dyspnea, orthopnea, elevated blood pressure and dialysis patient. It is been almost 72 hours since her last dialysis, I suspect that she is fluid overloaded. Since she does not make much for urine, I do not think a large dose of diuretics is going to be particularly helpful. Patient is scheduled to go to dialysis in a couple of hours. I discussed the risks and benefits of me giving her antihypertensives like hydralazine or clonidine to low er her blood pressure when this could make dialysis more complicated. Patient and daughter verbalized understanding. Recommend do a basic workup to look to see just how fluid overloaded she is, we check some cardiac enzymes and an EKG to make sure that this is not a cardiac process. They were agreeable to this plan. If we find that she is in mild heart failure but without significant troponin elevation or other abnormality, her best chance of good treatment is to go to dialysis. If I see signs of severe heart failure, would recommend inpatient transfer to tertiary care center. Differential diagnosis also including pneumonia, bronchitis, pulmonary embolism, congestive heart failure, acute coronary syndrome, arrhythmia. Among others Reevaluation(s) Time of Reevaluation #1: 04:46 Reevaluation #1: Discussed findings with patient and daughter. Chest x-ray and labs are consistent with fluid overload. They do not have time to wait to rerun the BNP after dilution. We need to get her out of here so that she can make it to dialysis within an hour. Discussed long-term plan to take off more fluid on Fridays if we see a pattern that she is more dyspnea on Saturday mornings. Alarm symptoms that would warrant ED presentation reviewed. If she is not markedly better in 24 hours, she should come back to the emergency department. Patient and daughter both verbalized understanding and agreement. Labs are overall quite reassuring. Chest x-ray showing volume overload as predicted with no signs of acute coronary syndrome or pleural effusions. Vital Signs Vital signs: Initial Vital Signs Respiratory Effort Normal, Spontaneous, Non-Labored 01/28/23 03:13 Respiratory Depth Normal 01/28/23 03:13 Respiratory Pattern Normal 01/28/23 03:13 Vital Signs Temperature 97.9 F 01/28/23 03:22 Pulse Rate 84 01/28/23 03:22 Respiratory Rate 20 01/28/23 03:22 Blood Pressure 221/94 H 01/28/23 03:22 Pulse Oximetry 92 01/28/23 03:22 Oxygen Delivery Method Room Air 01/28/23 03:22 Temperature 97.9 F 01/28/23 03:22 Pulse Rate 81 01/28/23 04:11 Respiratory Rate 20 01/28/23 04:11 Blood Pressure 218/101 H 01/28/23 04:11 Pulse Oximetry 94 01/28/23 04:11 Oxygen Delivery Method Room Air 01/28/23 04:11 Medical Decision Making Lab Data Lab results reviewed: Yes I reviewed the patient's lab results Lab results narrative: As expected, stable for patient. No signs of acute coronary syndrome. Labs: Lab Results 01/28/23 01/28/23 Range/Units 03:45 03:55 WBC 8.70 (4.50-11.00) K/uL RBC 3.69 L (4.00-5.20) m/uL Hgb 9.9 L (12.0-16.0) gm/dL Hct 31.0 L (33.0-51.0) % MCV 84 (80-100) fL MCH 27 (26-34) pg MCHC 32 (32-36) gm/dL RDW Coeff of Erlinda 17.0 H (11.5-15.5) % Plt Count 292 (140-440) K/uL Neut % (Auto) 79.4 H (42.0-72.0) % Lymph % (Auto) 12.4 L (20-44) % [place] % (Auto) 4.8 (0.0-11.0) % Eos % (Auto) 2.2 (0.0-7.0) % Baso % (Auto) 1.1 (0.0-3.0) % Neut # (Auto) 6.90 (1.7-7.0) K/uL Lymph # (Auto) 1.10 (0.90-2.90) K/uL [place] # (Auto) 0.40 (0.00-0.90) K/UL Eos # (Auto) 0.19 (0.00-0.50) K/uL Baso # (Auto) 0.10 (0.00-0.30) K/uL Abs Immat Gran (auto) 0.01 (0.00-0.30) K/uL Imm/Tot Granulo (auto) 0.1 % Sodium 139 (135-149) mmol/L Potassium 5.7 H (3.6-5.1) mmol/L Chloride 102 (96-114) mmol/L Carbon Dioxide 27 (20-32) mmol/L BUN 53 H (7-30) mg/dL Creatinine 9.6 H (0.5-1.5) mg/dL Estimated Creat Clear 3.85 Estimated GFR 4 ml/min Glucose 93 (60-115) mg/dL Calcium 10.4 (8.4-10.6) mg/dL Troponin I 0.02 (0.01-0.04) ng/mL NT-Pro-B Natriuret Pep pg/mL POC Troponin I 0.04 (0.01-0.04) ng/ml Imaging Data Chest x-ray: Attestation: I have reviewed the pertinent imaging results. My impression: Pulmonary vascular congestion, no pleural effusions, stable cardiac enlargement Radiologist's impression: IMPRESSION: Unchanged enlargement of the heart. Vascular congestion and findings of mild interstitial edema. ECG Data Attestation: I personally reviewed and interpreted this ECG as follows: Prior ECG tracings: available for review (Reviewed from 03/09/2022) Interpretation: Normal sinus rhythm. Right bundle branch block which is unchanged from last year. No new ischemic changes. Leftward axis. Discharge Plan Discharge Clinical Impression: Fluid overload Patient Disposition: Home w/ Parent or Adult Condition: Stable Instructions: Pulmonary Edema (ED) Additional Instructions: As we discussed, your more short of breath because you are fluid overloaded. The best treatment for this is to get you to dialysis. There are no signs of a heart attack, pneumonia, severe anemia or other reasons for this found on your blood work or x-rays today. Since your oxygen levels look good, we do not need to put you in the hospital for your dialysis. Your blood pressure is higher than I would like, but lowering this prior to dialysis is not only not helpful, it can be harmful. Please go to dialysis right away as planned this morning. Come back to the emergency department if you are not feeling better tomorrow. If we find a pattern where you tend to be much more short of breath on Mondays, we could potentially talk to your dialysis team about taking a little bit of extra fluid off on Fridays to compensate for this. Unfortunately, this does sometimes had the effect of making you weaker on Fridays. It is not an easy decision. Activity Level: No Restrictions Discharge Diet: Regular Prescriptions: No Action calcium acetate 667 mg tablet 667 mg PO BID lidocaine-prilocaine 2.5-2.5 % cream topical DIRECTED RenaPlex-D 800 mcg-12.5 mg -2,000 unit tablet 1 tab PO QPM lisinopril 2.5 mg tablet 2.5 mg PO DAILY Qty: 90 3RF metoprolol succinate 25 mg tablet extended release 24 hr 25 mg PO DAILY Qty: 90 3RF furosemide 80 mg tablet 80 mg PO DAILY Qty: 90 3RF omeprazole 20 mg capsule,delayed release(DR/EC) 20 mg PO DAILY Qty: 90 3RF Follow Up/Referrals: Louis Reyes MD [Primary Care Provider] - Stand Alone Forms: [employer] Info Instructions
[2023-01-28 03:53] LABS: Basophils Percent Auto 1.1 % (0.0-3.0); Eosinophils Absolute Auto 0.19 K/uL (0.00-0.50); Eosinophils Percent Auto 2.2 % (0.0-7.0); Hemoglobin* 9.9 gm/dL (12.0-16.0); Immature Granulocytes Abs Auto 0.01 K/uL (0.00-0.30); Immature Granulocytes Pct Auto 0.1 %; Lymphocytes Percent Auto 12.4 % (20-44); Mean Corpuscular HGB Conc 32 gm/dL (32-36); Mean Corpuscular Hemoglobin 27 pg (26-34); Mean Corpuscular Volume 84 fL (80-100); Monocytes Percent Auto 4.8 % (0.0-11.0); Neutrophils Percent Auto 79.4 % (42.0-72.0); Platelet Count* 292 K/uL (140-440); Red Blood Count 3.69 m/uL (4.00-5.20)
[2023-01-28 03:55] LABS: Slide Review Reflex No
[2023-01-28 04:03] LABS: Troponin, Point-of-Care* 0.04 ng/ml (0.01-0.04)
[2023-01-28 04:07] LABS: Chloride* 102 mmol/L (96-114); Potassium* 5.7 mmol/L (3.6-5.1); Sodium* 139 mmol/L (135-149)
[2023-01-28 04:10] LABS: Blood Urea Nitrogen* 53 mg/dL (7-30); Carbon Dioxide* 27 mmol/L (20-32); Creatinine* 9.6 mg/dL (0.5-1.5); Est. Creatinine Clearance* 3.85; Estimated Glomerular Filt Rate 4 ml/min; Glucose* 93 mg/dL (60-115)
[2023-01-28 04:11] VITALS: BP 218/101; PULSE 81; RESP 20; O2SAT 94
[2023-01-28 04:11] LABS: Calcium* 10.4 mg/dL (8.4-10.6)
[2023-01-28] MEDS: FAMOTIDINE 20 MG TABLET PO (04:15)
[2023-01-28 04:23] LABS: Troponin I* 0.02 ng/mL (0.01-0.04)
[2023-01-28 04:32] VITALS: BP 209/95; PULSE 86; RESP 20; O2SAT 94
[2023-01-28 04:36] LABS: NT Pro B Type NatriureticPept* 149000 pg/mL
[2023-01-28 04:53] VITALS: BP 209/91; PULSE 81; RESP 20
== END 2023-01-28 04:54 | disposition home or self-care (01) ==
PROVIDERS: Emergency Provider Family Medicine; PCP Family Medicine
DX: E87.70 Fluid overload, unspecified (principal)
CPT/HCPCS: 36415; 71046; 80048; 83880; 84484; 85025; 93005; 99284; A9270

== ENCOUNTER 2023-09-14 12:42 | Emergency (ER) | payer MEDICARE, SELFPAY ==
[2023-09-14] VITALS (49 sets, daily range): BP systolic 52–136; BP diastolic 33–70; PULSE 88–121; RESP 20–38; TEMP 36.6; O2SAT 80–100; BMI 20.4
--- NOTE | 2023-09-14 13:18 | CT_ITS ---
Patient: HAJA HORVATH Facility:?[facility] Patient ID:?[id number] Site Patient ID:?[id number]. Site :?[id number] Study:?CT-Head W/O-09/14/2023 2:19:22 PM Ordering Physician:JESUS Final Report: Indication: decreased mentation Technique: Noncontrast head CT Comparison: No comparison Findings: Axial noncontrast images through the brain parenchyma demonstrates generalized parenchymal volume loss. Periventricular hypo lucencies likely reflecting chronic small vessel ischemic change. No acute intracranial hemorrhage or mass. No midline shift. No abnormal extra-axial air fluid collections are seen. Impression: No acute intracranial hemorrhage or mass. Please note that all CT scans at this facility use dose modulation, iterative reconstruction, and/or weight-based dosing when appropriate to reduce radiation dose to as low as reasonably achievable. Dictated by Kylie Kaur MD @ 09/14/2023 2:27:29 PM Signed by:?Kylie Kaur MD @09/14/2023 2:27:29 PM (Electronic Signature)
--- NOTE | 2023-09-14 13:18 | CT_ITS ---
Patient: HAJA HORVATH Facility:?[facility] Patient ID:?[id number] Site Patient ID:?[id number]. Site :?[id number] Study:?CT-Chest/Abd/Pelvis W/O-09/14/2023 2:20:11 PM Ordering Physician:JESUS Final Report: INDICATION: Decreased mentation sepsis on dialysis TECHNIQUE: CT chest, abdomen and pelvis acquired without contrast. COMPARISON: None. FINDINGS: CHEST: Cardiovascular structures: Heart size is normal. Thoracic aorta and main pulmonary artery are normal in caliber. Mediastinum and luacs: No mass or adenopathy. Lungs and pleura: Lungs and pleural spaces are clear. No suspicious nodules, infiltrates, or effusions. Mild emphysema. Chest wall and axilla: No mass or adenopathy. Bones: No suspicious bone lesions. Unremarkable for age. ABDOMEN AND PELVIS: Liver: Low-attenuation lesions in the liver these are incompletely assessed on this study. Gallbladder and bile ducts: Unremarkable. Pancreas: Unremarkable. Spleen: Unremarkable. Adrenal glands: Unremarkable. Kidneys: Polycystic kidneys. Multiple low and dense lesions throughout both kidneys. No hydronephrosis is seen. Multiple calcifications bilaterally. GI tract: Unremarkable. Vascular structures: Dense atherosclerotic vascular calcifications. Lymph nodes: Unremarkable. Miscellaneous: Unremarkable. No free air or significant free fluid. Pelvic Organs: Unremarkable. Bones: No suspicious bone lesions. Unremarkable for age. IMPRESSION: 1. No acute findings in the chest abdomen or pelvis. 2. Multiple polycystic kidneys low and dense lesions throughout both kidneys incompletely assessed. No hydronephrosis. Please note that all CT scans at this facility use dose modulation, iterative reconstruction, and/or weight-based dosing when appropriate to reduce radiation dose to as low as reasonably achievable. Dictated by Kylie Kaur MD @ 09/14/2023 2:41:27 PM Signed by:?Kylie Kaur MD @09/14/2023 2:41:27 PM (Electronic Signature)
[2023-09-14] MEDS: LACTATED RINGERS 1000 ML 1,000 ML IV (13:25)
[2023-09-14] MEDS: ONDANSETRON 2 MG/ML inj 4 MG IVP (13:26)
[2023-09-14 13:28] LABS: Basophils Percent Auto 0.5 % (0.0-3.0); Eosinophils Percent Auto 0.2 % (0.0-7.0); Hematocrit 26.2 % (33.0-51.0); Hemoglobin* 8.2 gm/dL (12.0-16.0); Immature Granulocytes Pct Auto 0.3 %; Lymphocytes Percent Auto 14.6 % (20-44); Mean Corpuscular HGB Conc 31 gm/dL (32-36); Mean Corpuscular Hemoglobin 23 pg (26-34); Mean Corpuscular Volume 75 fL (80-100); Monocytes Percent Auto 5.6 % (0.0-11.0); Neutrophils Percent Auto 78.8 % (42.0-72.0); Platelet Count* 334 K/uL (140-440); RDW Coefficient of Variation % 21.1 % (11.5-15.5); White Blood Count* 17.44 K/uL (4.50-11.00)
--- NOTE | 2023-09-14 13:32 | ED_ITS ---
HPI - General Adult General Chief complaint: Syncope/Fainted Stated complaint: kidney failure/throwing up blood Time Seen by Provider: 09/14/23 13:02 Source: patient and family Mode of arrival: ambulatory Limitations: no limitations History of Present Illness HPI narrative: Patient is 82-year-old female presenting to the emergency department for weakness and hematemesis. She is with her [id number]-cye with whom she lives with. Abdominal states the patient has been having increased weakness since she got back from dialysis yesterday. She usually has dialysis [facility]. Patient has been doing well before that is usually walking around the house without issue. Has been feeling very sick since analysis and started having bloody emesis. Now it is dark blood in the vomit. Patient is also very weak and unable to walk around on her own. She does produce urine at baseline. Patient is usually able to have normal conversations without issue but is very fatigued at this time and has difficulty speaking due to her fatigue. Her daughter in-law states this is very abnormal for her. She does have a history of hypertension, CHF, in the end-stage renal disease. They are unsure why she developed the end-stage renal disease. Is not aware of any fevers but the patient has been having some chills. Patient denies chest pain, shortness of breath, abdominal pain, headache, vision changes, diarrhea, constipation, dysuria. Related Data Home Medications Medication Instructions Recorded Confirmed vit B,C-folic ac 800 mcg-zinc 12.5 1 tab PO QPM 11/06/22 09/14/23 mg-selen-D3 2,000 unit-vit E tablet (RenaPlex-D) calcium acetate 667 mg tablet 667 mg PO TID 04/30/23 09/14/23 Previous Rx's Medication Instructions Recorded furosemide 80 mg tablet 80 mg PO DAILY #90 tabs 11/06/22 omeprazole 20 mg capsule,delayed 20 mg PO DAILY #90 caps 11/06/22 release lisinopril 20 mg tablet 20 mg PO DAILY #90 tabs 08/20/23 metoprolol succinate 50 mg 75 mg (1.5 x 50 mg) PO QDAY #135 08/20/23 tablet,extended release 24 hr tabs Allergies Allergy/AdvReac Type Severity Reaction Status Date / Time iron Allergy Intermediate Itchy Verified 09/14/23 13:55 Review of Systems Status of ROS: Reports: 10 or more systems reviewed and unremarkable except as noted in History and below [facility] Medical History Situational anxiety ?F41.8 - Other specified anxiety disorders (ICD-10) Pneumonia (04/17/21) ?J18.9 - Pneumonia, unspecified organism (ICD-10) Left heart failure with left ejection fraction less than or equal to 30 percent ?I50.1 - Left ventricular failure, unspecified (ICD-10) Hypertension ?I10 - Essential (primary) hypertension (ICD-10) Hyperparathyroidism due to renal insufficiency ?N25.81 - Secondary hyperparathyroidism of renal origin (ICD-10) Gastroesophageal reflux disease ?K21.9 - Gastro-esophageal reflux disease without esophagitis (ICD-10) End stage renal failure on dialysis ?N18.6 - End stage renal disease (ICD-10) ?Z99.2 - Dependence on renal dialysis (ICD-10) Congestive heart failure ?I50.9 - Heart failure, unspecified (ICD-10) Surgical History History of tubal ligation ?Z98.51 - Tubal ligation status (ICD-10) History of total abdominal hysterectomy and bilateral salpingo-oophorectomy ?Z90.710 - Acquired absence of both cervix and uterus (ICD-10) ?Z90.722 - Acquired absence of ovaries, bilateral (ICD-10) ?Z90.79 - Acquired absence of other genital organ(s) (ICD-10) Social History Narrative: SOCIAL HISTORY: Single. Moved from [place]. Living with her son and kgbrhqgg-wl-eww in [place]. 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 HABITS: non-smoker. No alcohol. Smoking Status: Current some day smoker What tobacco products do you use: cigarettes Second hand tobacco smoke exposure: No How often do you have a drink containing alcohol: never AUDIT-C Alcohol total score: 0 Non-prescribed substance use: denies use Little interest or pleasure in doing things: not at all Feeling down, depressed, or hopeless: not at all service: No Exam Narrative: Exam Narrative: Const: Well-nourished, Well-developed, in moderate this test and appears very fatigued Eyes: PERRL, no conjunctival injection, and symmetrical lids HENT: Atraumatic external nose and ears. Moist mucous membranes. Neck: Symmetric, trachea midline, No thyromegaly. CVS: Tachycardic, No murmurs or gallops. Peripheral pulses 2+ and equal in all extremities RESP: Unlabored respiratory effort. Clear to auscultation bilaterally. GI: Nontender/Nondistended, No rebound or guarding. MSK:Extremities w/o deformity, Normal Active ROM Skin: Warm, Dry. No rashes or lesions. Neuro: Normal Muscle tone, No focal neurological deficits. Psych: Awake, Alert, & Oriented x3 but slow to respond. Const: Vital Signs, click to edit/add: Vital Signs - 24 hr 09/14/23 13:15 09/14/23 13:21 09/14/23 13:30 Temperature 97.9 F Pulse Rate Pulse Rate [Pulse Oximeter] 105 H 93 Respiratory Rate 20 20 Blood Pressure Blood Pressure [Le ft Upper Arm] 77/41 L 94/56 L Pulse [facility]xim[facility] 13:40 09/14/23 13:47 09/14/23 13:50 Temperature 97.8 F Pulse Rate Pulse Rate [Pulse Oximeter] 89 121 H 92 Respiratory Rate 38 H 24 Blood Pressure Blood Pressure [Le ft Upper Arm] 90/57 L 97/67 114/62 Pulse Oximetry 97 99 [facility] Room Air Room Air 09/14/23 14:19 09/14/23 14:21 09/14/23 14:30 Temperature Pulse Rate 99 98 98 Pulse Rate [Pulse Oximeter] Respiratory Rate Blood Pressure 122/70 Blood Pressure [Le ft Upper Arm] Pulse Oximetry 93 99 99 Oxygen Delivery [facility] thod 09/14/23 14:31 09/14/23 14:41 09/14/23 14:45 Temperature Pulse Rate 97 98 88 Pulse Rate [Pulse Oximeter] Respiratory Rate Blood Pressure 124/65 107/66 Blood Pressure [Le ft Upper Arm] Pulse Oximetry 96 100 80 L [facility] 09/14/23 14:51 Temperature Pulse Rate 91 Pulse Rate [Pulse Oximeter] Respiratory Rate Blood Pressure 127/65 Blood Pressure [Le ft Upper Arm] Pulse Oximetry 92 Oxygen Delivery Me thod Course Vital Signs Vital signs: Initial Vital Signs Pulse Rate 105 H 09/14/23 13:15 Respiratory Rate 20 09/14/23 13:15 Blood Pressure 77/41 L 09/14/23 13:15 Blood Pressure Mean 53 L 09/14/23 13:15 Blood Pressure Position Supine 09/14/23 13:15 Vital Signs Pulse Rate 105 H 09/14/23 13:15 Respiratory Rate 20 09/14/23 13:15 Blood Pressure 77/41 L 09/14/23 13:15 Temperature 97.8 F 09/14/23 13:47 Pulse Rate 91 09/14/23 14:51 Respiratory Rate 24 09/14/23 13:50 Blood Pressure 127/65 09/14/23 14:51 Pulse Oximetry 92 09/14/23 14:51 Oxygen Delivery Method Room Air 09/14/23 13:50 Medications Administered Medications: Discontinued Medications Generic Name Dose Route Start Last Admin Trade Name Freq PRN Reason Stop Dose Admin Lactated Ringer's 1,000 mls @ 1,000 mls/hr 09/14/23 13:08 09/14/23 13:25 Lactated Ringers 1000 Ml IV 09/14/23 14:07 1,000 mls/hr .Q1H ONE Administration Vancomycin HCl 1,000 mg/ 510 mls @ 255 mls/hr 09/14/23 13:57 09/14/23 15:49 Sodium Chloride IVPB 09/14/23 13:58 Not Given ONCE ONE Protocol Piperacillin Sod/Tazobactam 100 mls @ 200 mls/hr 09/14/23 13:57 09/14/23 15:43 Sod 3.375 gm/ Sodium Chloride IVPB 09/14/23 13:58 Infused ONCE ONE Infusion Vancomycin HCl 1,000 mg/ 260 mls @ 255 mls/hr 09/14/23 14:05 09/14/23 15:42 Sodium Chloride IVPB 09/14/23 15:06 255 mls/hr ONCE ONE Administration Protocol Ondansetron HCl 4 mg 09/14/23 13:08 09/14/23 13:26 Ondansetron 2 Mg/Ml Inj IVP 09/14/23 13:09 4 mg ONCE ONE Administration Pantoprazole Sodium 80 mg 09/14/23 13:32 09/14/23 13:47 Pantoprazole Sodium 40 Mg Inj IVP 09/14/23 13:33 80 mg ONCE ONE Administration Medical Decision Making MDM Narrative Medical decision making narrative: Patient is an 82-year-old female presenting to emergency department for weakness and hematemesis. There is concerned right now she is having upper GI bleed. Protonix will be ordered. I am also concerned she could be developing sepsis. She is tachycardic right now and when she 1st came in her extremities or cold an oral temperature is 89. We did obtain a rectal temperature and it was 97.9. Despite that her parents I am very concerned. She is hypertensive at this time. Previous chart review shows her blood pressure is usually in the 160s to 170s over 80. Will do a broad workup including CBC, CMP, urinalysis, coags has flu/RSV, blood sugar, magnesium, BNP, lactate, EKG. Considered I do not know what is causing his symptoms I will it did cook scanner to see by can not find any causes. Of note she does produce urine so I am hesitant to do a CT scan with IV contrast as this could worsen her overall kidney function. She is relatively stand so the be limits to what we can see on the abdominal and pelvis CT but I believe at this point it is better than nothing. Lab work returned with a white count 17.44 with mostly neutrophils. I am concerned at this time she has bacterial infection. Will give her broad- spectrum antibiotics. Hemoglobin is 8.2. This is relatively consistent the previous hemoglobins on file started unsure if she is currently actively bleeding or even if it is of a concerning amount. She has not had any further vomiting in the emergency department. After the L of fluids her heart rate improved to the 80s to 90s and her blood pressure is now 127/65. She is now fully alert and answering all questions appropriately. She looks much better than she did initially. Lactate came back at 7.6. [place] [address]. While she does not currently look to be in acute heart failure I am hesitant to give her too much fluids as it could cause fluid overload. Considering she already improved I do not believe is necessary to give her the full 30 mL per kilos of IV fluids as it may cause more harm than good at this time. COVID/flu/RSV is negative. CT scans reviewed by myself and the radiologist all showed no concerning abnormalities. Again all minute the CT scan the abdomen pelvis is not at its most optimum considering we could not use IV contrast. We did try get a urinalysis and straight catheter but he did not get any urine. She is looking much better but still I recommend transfer. She would like to be transferred to the [facility] system I spoke to Dr. Clayton of the hospitalist service. She accepted the patient for admission. Does want a repeat lactate done now. And they tell me there is a bed available immediately and will call with nurse to nurse report. Repeat lactate was requested by the accepting hospitalist and came back at 1.7. This is quite the improvement with only 1 L fluids but considering her knee show parents an elevated white count I still think it is important to transfer her. Lab Data Labs: Lab Results 09/14/23 09/14/23 09/14/23 Range/Units 13:09 13:10 13:25 WBC 17.44 H (4.50-11.00) K/uL RBC 3.50 L (4.00-5.20) m/uL Hgb 8.2 L (12.0-16.0) gm/dL Hct 26.2 L (33.0-51.0) % MCV 75 L (80-100) fL MCH 23 L (26-34) pg MCHC 31 L (32-36) gm/dL RDW Coeff of Erlinda 21.1 H (11.5-15.5) % Plt Count 334 (140-440) K/uL Neut % (Auto) 78.8 H (42.0-72.0) % Lymph % (Auto) 14.6 L (20-44) % [place] % (Auto) 5.6 (0.0-11.0) % Eos % (Auto) 0.2 (0.0-7.0) % Baso % (Auto) 0.5 (0.0-3.0) % Neut # (Auto) 13.70 H (1.7-7.0) K/uL Lymph # (Auto) 2.50 (0.90-2.90) K/uL [place] # (Auto) 1.00 H (0.00-0.90) K/UL Eos # (Auto) 0.00 (0.00-0.50) K/uL Baso # (Auto) 0.10 (0.00-0.30) K/uL Abs Immat Gran (auto) 0.10 (0.00-0.30) K/uL Imm/Tot Granulo (auto) 0.3 % Sodium 140 (135-149) mmol/L Potassium 4.9 (3.6-5.1) mmol/L Chloride 100 (96-114) mmol/L Carbon Dioxide 21 (20-32) mmol/L Anion Gap 19 H (7-15) mEq/L BUN 61 H (7-30) mg/dL Creatinine 7.6 H (0.5-1.5) mg/dL Estimated Creat Clear 4.86 Estimated GFR 5 ml/min Glucose 138 H (60-115) mg/dL Lactate 7.6 H* (0.5-1.9) mmol/L Calcium 9.5 (8.4-10.6) mg/dL Magnesium 2.6 (1.5-2.6) mg/dL Total Bilirubin 0.6 (0.1-1.5) mg/dL AST 19 (12-35) U/L ALT 13 (4-35) U/L Alkaline Phosphatase 57 (40-150) U/L Troponin I 0.02 (0.01-0.04) ng/mL NT-Pro-B Natriuret Pep 93062 pg/mL Total Protein 6.5 (6.0-8.3) g/dL Albumin 3.8 (3.3-5.0) g/dL SARS-CoV-2 (PCR) Negative SARS-CoV-2 (Negative) Influenza Type A (PCR) Negative PCR FLU A (Negative) Influenza Type B (PCR) Negative PCR FLU B (Negative) RSV (PCR) Negative PCR RSV (Negative) POC Glucose 130 H (60-115) mg/dl 09/14/23 Range/Units 16:02 WBC (4.50-11.00) K/uL RBC (4.00-5.20) m/uL Hgb (12.0-16.0) gm/dL Hct (33.0-51.0) % MCV (80-100) fL MCH (26-34) pg MCHC (32-36) gm/dL RDW Coeff of Erlinda (11.5-15.5) % Plt Count (140-440) K/uL Neut % (Auto) (42.0-72.0) % Lymph % (Auto) (20-44) % [place] % (Auto) (0.0-11.0) % Eos % (Auto) (0.0-7.0) % Baso % (Auto) (0.0-3.0) % Neut # (Auto) (1.7-7.0) K/uL Lymph # (Auto) (0.90-2.90) K/uL [place] # (Auto) (0.00-0.90) K/UL Eos # (Auto) (0.00-0.50) K/uL Baso # (Auto) (0.00-0.30) K/uL Abs Immat Gran (auto) (0.00-0.30) K/uL Imm/Tot Granulo (auto) % Sodium (135-149) mmol/L Potassium (3.6-5.1) mmol/L Chloride (96-114) mmol/L Carbon Dioxide (20-32) mmol/L Anion Gap (7-15) mEq/L BUN (7-30) mg/dL Creatinine (0.5-1.5) mg/dL Estimated Creat Clear Estimated GFR ml/min Glucose (60-115) mg/dL Lactate 1.7 (0.5-1.9) mmol/L Calcium (8.4-10.6) mg/dL Magnesium (1.5-2.6) mg/dL Total Bilirubin (0.1-1.5) mg/dL AST (12-35) U/L ALT (4-35) U/L Alkaline Phosphatase (40-150) U/L Troponin I (0.01-0.04) ng/mL NT-Pro-B Natriuret Pep pg/mL Total Protein (6.0-8.3) g/dL Albumin (3.3-5.0) g/dL SARS-CoV-2 (PCR) (Negative) Influenza Type A (PCR) (Negative) Influenza Type B (PCR) (Negative) RSV (PCR) (Negative) POC Glucose (60-115) mg/dl Imaging Data CT scan head: Radiologist's impression: No acute intracranial hemorrhage or mass. Please note that all CT scans at this facility use dose modulation, iterative reconstruction, and/or weight-based dosing when appropriate to reduce radiation dose to as low as reasonably achievable. Dictated by Kylie Kaur MD @ 09/14/2023 2:27:[address] Chest/Ab/Pelvis: Radiologist's impression: 1. No acute findings in the chest abdomen or pelvis. 2. Multiple polycystic kidneys low and dense lesions throughout both kidneys incompletely assessed. No hydronephrosis. Please note that all CT scans at this facility use dose modulation, iterative reconstruction, and/or weight-based dosing when appropriate to reduce radiation dose to as low as reasonably achievable. Dictated by Kylie Kaur MD @ 09/14/2023 2:41:27 PM ECG Data Attestation: I personally reviewed and interpreted this ECG as follows: Prior ECG tracings: available for review Interpretation: Sinus tachycardia with a rate of 113 beats per minute, appears to be an incomplete right bundle-branch block which is seen on previous EKG. She does have prior PE always which is concerning for left ventricular hypertrophy. No clear ST or T-wave abnormalities the appear to previous EKG. Critical Care Time Critical Care Time Critical Care Time: Yes Attestation: The patient required my highest level preparedness to intervene emergently and I personally spent this critical care time directly and personally managing the patient. This critical care time included: Obtaining a history; Examining the patient; Pulse oximetry; Ordering and reviewing of studies; Arranging urgent treatment with development of a management plan; Evaluation of patients r esponse to treatment; Frequent reassessment discussions with other providers. This critical care time was performed to assess and manage the high probability of imminent life-threatening deterioration that could result in multiorgan failure. It was exclusive of separate billable procedures and treating other patients and teaching time. Total Critical Care Time in Minutes: 45 Discharge Plan Discharge Clinical Impression: Acute upper GI bleed Sepsis Qualifiers: Sepsis type: sepsis due to unspecified organism Sepsis acute organ dysfunction status: unspecified Qualified Code(s): A41.9 - Sepsis, unspecified organism Patient Disposition: Xfer Other Discharge Location: [facility] Condition: Improved Prescriptions: No Action calcium acetate 667 mg tablet 667 mg PO TID RenaPlex-D 800 mcg-12.5 mg -2,000 unit tablet 1 tab PO QPM furosemide 80 mg tablet 80 mg PO DAILY Qty: 90 3RF omeprazole 20 mg capsule,delayed release(DR/EC) 20 mg PO DAILY Qty: 90 3RF metoprolol succinate 50 mg tablet extended release 24 hr 75 mg PO QDAY Qty: 135 1RF lisinopril 20 mg tablet 20 mg PO DAILY Qty: 90 1RF Stand Alone Forms: [facility] Info Instructions
[2023-09-14 13:42] LABS: Slide Review Reflex No
[2023-09-14] MEDS: PANTOPRAZOLE SODIUM 40 MG INJ 80 MG IVP (13:47)
[2023-09-14 13:57] LABS: Lactate Sepsis w/Reflex* 7.6 mmol/L (0.5-1.9)
[2023-09-14 14:02] LABS: Magnesium* 2.6 mg/dL (1.5-2.6)
[2023-09-14 14:14] LABS: PCR FLU A Negative PCR FLU A (Negative); PCR FLU B Negative PCR FLU B (Negative); PCR RSV Negative PCR RSV (Negative); SARS PCR* Negative SARS-CoV-2 (Negative)
[2023-09-14 14:15] LABS: Troponin I* 0.02 ng/mL (0.01-0.04)
[2023-09-14 14:15] LABS: Glucose, Point-of-Care* 130 mg/dl (60-115)
[2023-09-14 14:16] LABS: Albumin* 3.8 g/dL (3.3-5.0); Chloride* 100 mmol/L (96-114); Sodium* 140 mmol/L (135-149)
[2023-09-14 14:17] LABS: Potassium* 4.9 mmol/L (3.6-5.1)
[2023-09-14 14:19] LABS: Alanine Aminotransferase* 13 U/L (4-35); Alkaline Phosphatase* 57 U/L (40-150); Anion Gap 19 mEq/L (7-15); Aspartate Amino Transferase* 19 U/L (12-35); Bilirubin Total* 0.6 mg/dL (0.1-1.5); Blood Urea Nitrogen* 61 mg/dL (7-30); Carbon Dioxide* 21 mmol/L (20-32); Creatinine* 7.6 mg/dL (0.5-1.5); Est. Creatinine Clearance* 4.86; Estimated Glomerular Filt Rate 5 ml/min; Glucose* 138 mg/dL (60-115); Total Protein* 6.5 g/dL (6.0-8.3)
[2023-09-14 14:20] LABS: Calcium* 9.5 mg/dL (8.4-10.6)
[2023-09-14 14:30] LABS: NT Pro B Type NatriureticPept* 88300 pg/mL
[2023-09-14] MEDS: PIPERACILLIN/TAZOBACTAM 3.375 GM in 0.9 % SODIUM CHLORIDE Mini-bag 100 ML IVPB (14:30)
[2023-09-14 16:12] LABS: Lactate* 1.7 mmol/L (0.5-1.9)
== END 2023-09-14 19:27 | disposition other institution (70) ==
PROVIDERS: Emergency Provider Student in an Organized Health Care Education/Training Program; PCP Family Medicine
DX: A41.9 Sepsis, unspecified organism (principal); K92.2 Gastrointestinal hemorrhage, unspecified
CPT/HCPCS: 36415; 70450; 71250; 74176; 80053; 81001; 82947; 83605; 83735; 83880; 84484; 85025; 87040; 87631; 93005; 96365; 96375; 99284; 99291; C9113; J2405; J2543; J3370; J7050; J7120

== ENCOUNTER 2023-09-14 19:12 | Outpatient (CLI) | payer MEDICARE, SELFPAY | END 2023-09-14 19:13 | disposition home or self-care (01) | LOC: AMB 09-15 07:19 | PROVIDERS: PCP Family Medicine; Visit Provider Family Medicine | DX: K92.2 Gastrointestinal hemorrhage, unspecified (principal); A41.9 Sepsis, unspecified organism | CPT/HCPCS: A0425; A0427 ==

== ENCOUNTER 2024-02-14 10:29 | Outpatient (CLI) | payer MEDICARE, SELFPAY ==
--- OUTSIDE RECORDS SUMMARY | 2024-02-15 04:16 | XMS_ITS | Clinical Summary ---
Author Organization [facility] Address [place], [place] [address] Care Team Providers Care Homoeopath Name Role Phone Louis Reyes MD Primary Care Provider [phone] Allergies Active Allergy Reactions Criticality Noted Date Comments Sodium Ferric Gluconat-Sucrose Itching 10/05 Iron Sucrose Rash 10/06/2023 Medications Medication Sig Dispensed Refills Start Date End Date Status metoprolol succinate (TOPROL XL) 25 mg Sustained-Releas e tablet Take 75 mg by mouth once daily. 07/18/2022 Suspended furosemide (LASIX) 80 mg tablet Take 80 mg by mouth every morning. Suspended lisinopriL (PRINIVIL; ZESTRIL) 20 mg tablet Take 40 mg by mouth once daily. Suspended calcium acetate,phosphat bind, (PHOS-LO) 667 mg tablet Take 2,001 mg by mouth three times daily with meals. Take 1 tablet (667 mg) with snacks. 4 Discontinued(P harmacist change per medication history (E-cancel not sent)) pantoprazole (PROTONIX) 40 mg delayed-release tabletIndication s:Gastrointestin al hemorrhage with hematemesis Take 1 Tablet (40 mg) by mouth two times daily before meals. 60 Tablet 3 09/17/2023 Suspended Additional Information ferrous gluconate 324 mg (37 mg iron) tabletIndication s:Blood loss anemia Take 1 Tablet by mouth once daily with a meal. 30 Tablet 10/07/2023 Suspended Additional Information Patient taking differently: 2 TabletOral DAILY WITH MEAL, Reported on 02/14/2024 B,C/folic/zinc/s elenometh/D3/E (RENAPLEX-D ORAL) Take 1 Tablet by mouth once daily. Suspended calcium acetate 667 mg Take 667 mg by mouth three times daily with meals. 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 Chronic HFrEF (heart failure with reduced ejection fraction) 02/26/2021 Anemia in chronic kidney disease 09/04/2020 Essential (primary) hypertension 09/04/2020 Secondary hyperparathyroidism of renal origin Tobacco use disorder 09/06/2016 Encounters Date Type Department Care Team Description 02/14/2024 7:25 PM CDT - Present Hospital Encounter [address] [address] [facility], Hospitalist jarred Chou, Jamel Skinner MD from Last 3 Months Social History Tobacco [...] Sign Reading Time Taken Comments Blood Pressure 128/90 02/15/2024 2:48 AM CDT Pulse 85 02/15/2024 2:48 AM CDT Temperature 36.7 ??C (98 ??F) 02/14/2024 7:32 PM CDT Respiratory Rate 18 02/14/2024 11:00 PM CDT Oxygen Saturation 94% 02/14/2024 11:00 PM CDT Inhaled Oxygen Concentration - - [...] for age 65+ 12/28/2007 COVID-19 vaccine series (24 season) 3 Influenza for age 65+ 03/01/2024 Procedures The patient is currently admitted. The information in this section might not be complete until the patient is discharged. Procedure Name Priority Date/Time Associated Diagnosis Comments SCAN-CARDIAC STRIP 02/15/2024 2: 40 AM CDT SCAN-CARDIAC STRIP 02/15/2024 1: 04 AM CDT SCAN-CARDIAC STRIP 02/14/2024 9: 55 PM CDT CBC WITH AUTO DIFFERENTIAL STAT 02/14/2024 9:39 PM CDT AMMONIA TOM 02/14/2024 9:39 PM CDT VITAMIN B12 TOM 02/14/2024 9:39 PM CDT HEMOGLOBIN Timed 02/14/2024 9:39 PM CDT MAGNESIUM STAT 02/14/2024 9:39 PM CDT BASIC METABOLIC PANEL STAT 02/14/2024 9:39 PM CDT CBC WITH AUTO DIFFERENTIAL STAT 02/14/2024 9:39 PM CDT ISTAT EG6+ ABG Timed 02/14/2024 9:09 PM CDT from Last 3 Months Results * SCAN-CARDIAC STRIP (02/15/2024 1:04 AM CDT) Scanner OTHER * SCAN-CARDIAC STRIP (02/14/2024 9:55 PM CDT) Scanner OTHER * (ABNORMAL) CBC WITH AUTO DIFFERENTIAL (02/14/2024 9:39 PM CDT) WHITE BLOOD COUNT 6.7 4.5 - 11.0 thou/cu mm 02/14/2024 10:01 PM [facility] RED BLOOD COUNT 3.75(L) 4.00 - 5.20 mil/cu mm 02/14/2024 10:01 PM T [facility] HEMOGLOBIN 9.6(L) 12.0 - 16.0 g/dL 02/14/2024 10:01 PM [facility] HEMATOCRIT 28.0(L) 33.0 - 51.0 % 02/14/2024 10:01 PM [facility] MCV 75(L) 80 - 100 fL 02/14/2024 10:01 PM [facility] MCH 25.6(L) 26.0 - 34.0 pg 02/14/2024 10:01 PM [facility] MCHC 34.3 32.0 - 36.0 g/dL 02/14/2024 10:01 PM [facility] RDW 18.2(H) 11.5 - 15.5 % 02/14/2024 10:01 PM [facility] PLATELET COUNT 212 140 - 440 thou/cu mm 02/14/2024 10:01 PM [facility] MPV 10.5 6.5 - 11.0 fL 02/14/2024 10:01 PM [facility] NRBC 0.0 % 02/14/2024 10:01 PM T [facility] ABS NRBC 0.0 thou /cu mm 02/14/2024 10:01 PM T [facility] % NEUT 79.2 % 02/14/2024 10:01 PM T [facility] % LYMPH 9.5 % 02/14/2024 10:01 PM T [facility] % MONO 9.6 % 02/14/2024 10:01 PM T [facility] % EOS 0.7 % 02/14/2024 10:01 PM T [facility] % BASO 0.7 % 02/14/2024 10:01 PM T [facility] % IMMATURE GRAN (METAS,MYELOS,CO OS) 0.3 % 02/14/2024 10:01 PM T [facility] ABSOLUTE NEUTROPHILS 5.3 1.7 - 7.0 thou/cu mm 02/14/2024 10:01 PM T [facility] ABSOLUTE LYMPHOCYTES 0.6(L) 0.9 - 2.9 thou/cu mm 02/14/2024 10:01 PM T [facility] ABSOLUTE MONOCYTES 0.7 <0.9 thou/cu mm 02/14/2024 10:01 PM T [facility] ABSOLUTE EOSINOPHILS 0.1 <0.5 thou/cu mm 02/14/2024 10:01 PM T [facility] ABSOLUTE BASOPHILS 0.1 <0.3 thou/cu mm 02/14/2024 10:01 PM T [facility] ABSOLUTE IMMATURE GRANULOCYTES(MET ,MYELOS,PROS) 0.0 <0.3 thou/cu mm 02/14/2024 10:01 PM T [facility] Blood BLOOD SPECIMEN / Unknown Venipuncture / Unknown 02/14/2024 9:39 PM CDT 02/14/2024 9:46 PM CDT Jamel Chou MD HEMATOLOGY [facility] SENDOUT [place]IP [phone] [place] [address] * (ABNORMAL) HEMOGLOBIN (02/14/2024 9:39 PM CDT) HEMOGLOBIN 9.6(L) 12.0 - 16.0 g/dL 02/14/2024 10:01 PM CDT [facility] MCV 75(L) 80 - 100 fL 02/14/2024 10:01 PM CDT [facility] Blood BLOOD SPECIMEN / Unknown Venipuncture / Unknown 02/14/2024 9:39 PM CDT 02/14/2024 9:46 PM CDT Jamel Chou MD HEMATOLOGY [facility] SENDOUT INTERNAL ZIP [address] [place] [id number] * MAGNESIUM (02/14/2024 9:39 PM CDT) [facility] MAGNESIUM 2.1 1.6 - 2.4 mg/dL 02/14/2024 10:11 PM CDT [facility] Blood BLOOD SPECIMEN / Unknown Venipuncture / Unknown 02/14/2024 9:39 PM CDT 02/14/2024 9:46 PM CDT Jamel Chou MD CHEMISTRY Performing Organization Address [place]/[facility] Co de Phone Number [facility] SENDOUT INTERNAL ZIP [phone] [place] [id number] * (ABNORMAL) VITAMIN B12 (02/14/2024 9:39 PM CDT) [facility] VITAMIN B12 3,631(H) 232 - 1,245 pg/mL 02/15/2024 1:50 AM CDT [facility] Blood BLOOD SPECIMEN / Unknown Venipuncture / Unknown 02/14/2024 9:39 PM CDT 02/14/2024 9:46 PM CDT Narrative [facility] - 02/15/2024 1:50 AM CDT Biotin supplements may cause clinically significant interference for this test assay. ??If interference is suspected, it is strongly recommended that biotin is discontinued for at least one week prior to retesting. Jamel Chou MD CHEMISTRY [facility] [address] [place] [address], * (ABNORMAL) AMMONIA (02/14/2024 9:39 PM CDT) Pathologist [facility] AMMONIA 15(L) 16 - 60 umol/L 02/14/2024 10:08 PM CDT [facility] Blood BLOOD SPECIMEN / Unknown Venipuncture / Unknown 02/14/2024 9:39 PM CDT 02/14/2024 9:45 PM CDT [facility] - 02/14/2024 10:08 PM CDT 1. ??Sulfasalazine and its metabolite Sulfapyridine at therapeutic concentrations may lead to falsely low results. 2. ??Temozolomide and its metabolite MTIC may lead to falsely elevated results, and its metabolite AIC may lead to falsely low results. Jamel Chou MD CHEMISTRY [facility] SENDOUT INTERNAL ZIP [id number] [place] [address] * (ABNORMAL) BASIC METABOLIC PANEL (02/14/2024 9:39 PM CDT) Pathologist [facility] SODIUM 137 136 - 145 mmol/L 02/14/2024 10:11 PM T [facility] POTASSIUM 5.1 3.5 - 5.1 mmol/L 02/14/2024 10:11 PM CDT [facility] CHLORIDE 99 98 - 107 mmol/L 02/14/2024 10:11 PM T [facility] CO2,TOTAL 21(L) 22 - 29 mmol/L 02/14/2024 10:11 PM T [facility] ANION GAP 17 5 - 18 02/14/2024 10:11 PM T [facility] GLUCOSE 72 70 - 99 mg/dL 02/14/2024 10:11 PM T [facility] CALCIUM 9.4 8.8 - 10.2 mg/dL 02/14/2024 10:11 PM CDT [facility] BUN 26(H) 8 - 23 mg/dL 02/14/2024 10:11 PM T [facility] CREATININE 6.94(H) 0.50 - 0.90 mg/dL 02/14/2024 10:11 PM CDT [facility] BUN/CREAT RATIO 4(L) 10 - 20 4 10:11 PM T [facility] eGFR 6(L) >90 mL/min/1.7 3m2 02/14/2024 10:11 PM T [facility] Comment:As of 2021, eG FR is calculated by the CKD-EPI creatinine equation without race adjustment. ??eGFR can be influenced by muscle mass, exercise, and diet. ??The reported eGFR is an estimation only and is only applicable if the renal function is stable. Blood BLOOD SPECIMEN / Unknown Venipuncture / Unknown 02/14/2024 9:39 PM CDT 02/14/2024 9:46 PM CDT Jamel Chou MD CHEMISTRY [facility] SENDOUT INTERNAL [facility] [id number] [place] [address] * (ABNORMAL) ISTAT EG6+ ABG (02/14/2024 9:09 PM CDT) PH, ARTERIAL 7.52(H) 7.35 - 7.45 02/14/2024 9:12 PM T [facility] PCO2, ARTERIAL 29(L) 32 - 45 mmHg 02/14/2024 9:12 PM T [facility] PO2, ARTERIAL 55(L) 83 - 108 mmHg 02/14/2024 9:12 PM T [facility] HCO3, ARTERIAL 24 21 - 28 mmol/L 02/14/2024 9:12 PM T [facility] BASE EXCESS, ARTERIAL 1.0 -2.0 - 3.0 02/14/2024 9:12 PM T [facility] O2 SATURATION, ARTERIAL 92(L) 94 - 98 % 02/14/2024 9:12 PM T [facility] SODIUM, POCT 02/14/2024 9:12 PM T [facility] Comment:Unable to determine. POTASSIUM, POCT 9:12 PM T [facility] Comment:Unable to determine. INSPIRED O2,ISTAT 02/14/2024 9:12 PM CDT [facility] Comment:Not given PATIENT TEMPERATURE 37.0 Degrees C 02/14/2024 9:12 PM CDT [facility] SOL'S TEST Not Given 02/14/2024 9:12 PM CDT [facility] SAMPLE TYPE,ISTAT BLOOD GAS ARTERIAL 02/14/2024 9:12 PM CDT [facility] Blood BLOOD SPECIMEN / Unknown 02/14/2024 9:09 PM CDT 02/14/2024 9:12 PM CDT U Hospitalist Svc s CHEMISTRY [facility] SENDOUT INTERNAL ZIP [address] [place] [address] from Last 3 Months Advance Directives * Full Code (Latest Code Status on File) Date Activated Date Inactivated Comments 02/14/2024 8:16 PM Question Answer Comments Code Status Discussion: Reviewed Preferences * Full Code Date Activated Date Inactivated Comments 10/04/2023 9:24 [...] Code Status Discussion: Reviewed Preferences Care Teams Homoeopath Relationship Specialty Start Date End Date Louis Reyes MD [address] [place] [address] PCP - General Family Practice 05/18/21
--- OUTSIDE RECORDS SUMMARY | 2024-02-15 04:17 | XMS_ITS | Encounter Summary ---
Author Organization [facility] Address [address] [place] [address] Care Team Providers Care Appraiser Oil And Water Name Role Phone Fabian Arias MD Primary Care Provider + [phone] Encounter Details Date Type Department Care Team (Late st Contact Info) Description 01/01/2024 Orders Only [facility] [address] [place] [address] Landon Calvert MD [address] [place] [address] Social History Tobacco Use Types [...] [facility] Lab Results (01/01/2024) PCR 35.72 [facility] spKt/V Gotch 1.95 [facility] [place] eNPCR 0.87 [facility] WSTDKT/V 2.6 [facility] eKt/V [facility] [place] nPCR_HD 1.00 [facility] eKdrt/V 1.65 [facility] spKt/V (Daugirdas II) 1.90 [facility] eKt/V ([place]) 1.63 [facility] 01/01/2024 01/01/2024 Celia Ordering Provider LAB BLOOD ORDERABLE [facility] Contact Performing lab Unknown, [place] * HD KINETICS (01/01/2024) Pathologist [facility] % Urea Reduction 80 65 - 80 % [facility] 01/01/2024 01/02/2024 4:3 8 AM CDT Narrative [facility] - 01/02/2024 Unless otherwise specified, test(s) performed at: [facility], [address] [place] [address], [place] [address] TOBACCO STEMMER MACHINE: Vicente Flores M.D., Ph.D For any questions, please call customer service at FREQUENCY:MONTHLY Resulting Agency Comment Specimen source: Plasma Landon Calvert MD LAB BLOOD ORDERABLES [facility] See order comments [...] 01/01/2024 01/02/2024 6:1 6 AM CDT Narrative [facility] - 01/02/2024 Unless otherwise specified, test(s) performed at: [facility], [address] [place] [address], [place] [address] TOBACCO STEMMER MACHINE: Vicente Flores M.D., Ph.D For any questions, please call customer service at FREQUENCY:MONTHLY Resulting Agency Comment Specimen source: Serum Landon Calvert MD LAB BLOOD ORDERABLES [facility] See order comments [...] 01/02/2024 Unless otherwise specified, test(s) performed at: [facility], [address] [place] [address], [place] [address] TOBACCO STEMMER MACHINE: Vicente Flores M.D., Ph.D For any questions, please call customer service at FREQUENCY:MONTHLY Resulting Agency Comment Specimen source: Blood Landon Calvert MD LAB BLOOD ORDERABLES Performing Organization Address [place]/[facility] de Phone Number [facility] See order comments or contact performing lab Unknown, [place] * IMMUNO CHEMISTRY (01/01/2024) Hep B Surface Ag Negative Negative [facility] 01/01/2024 01/02/2024 5:0 1 AM CDT Narrative [facility] - 01/02/2024 Unless otherwise specified, test(s) performed at: [facility], [address] [place] [address], [place] [address] TOBACCO STEMMER MACHINE: Vicente Flores M.D., Ph.D For any questions, please call customer service at FREQUENCY:MONTHLY Resulting Agency Comment Specimen source: Plasma Landon Calvert MD LAB BLOOD ORDERABLES [facility] See order comments or contact performing lab Unknown, [place] * POST CHEMISTRY (01/01/2024) BUN Post Dialysis 9 6 - 19 mg/dL [facility] 01/01/2024 01/02/2024 4:3 8 AM CDT Narrative [facility] - 01/02/2024 Unless otherwise specified, test(s) performed at: [facility], [address] [place] [address], [place] [address] TOBACCO STEMMER MACHINE: Vicente Flores M.D., Ph.D For any questions, please call customer service at FREQUENCY:MONTHLY Resulting Agency Comment Specimen source: Plasma Landon Calvert MD LAB BLOOD ORDERABLES [facility] See order comments or contact performing lab Unknown, [place] documented in this encounter Visit Diagnoses Not on filedocumented in this encounter Care Teams Appraiser Oil And Water Relationship Specialty Start Date End Date Fabian Arias MD [address] [place] [phone] PCP - General Family Medicine 09/04/20 documented as of this encounter
--- OUTSIDE RECORDS SUMMARY | 2024-02-15 04:17 | XMS_ITS | Encounter Summary ---
Author Organization [facility] Address [address] [place] [address] Care Team Providers Care Motor Checker Name Role Phone Fabian Arias MD Primary Care Provider + [phone] Encounter Details Date Type Department Care Team (Late st Contact Info) Description 01/20/2024 Treatment [facility] [place] [address] [place] [address] Chata Garza, SECURITY AUDITOR-HUMANITIES DIVISION CHAIR [address] [place] [phone] Social History Tobacco Use Types Packs/Day Years Used Date Smoking Tobacco: Smoker, Cur rent Status Unknown Cigarettes Started: 977 Sex and Gender Information Value Date Recorded Sex Assigned at Not on file Gender Identity Not on file Sexual Orientation Not on file documented as of this encounter Miscellaneous Notes * Dialysis Note - Chata Garza APRN-HUMANITIES DIVISION CHAIR - 01/20/2024 8:26 AM CDT Date: Jan 20, 2024 Patient Name: Zamzam Garibay : 1940 Chart #: [id number] Sex: F This patient was personally seen [...] AM ) BP (sit): 162/88 AP(-) / LINUX SOLARIS ADMINISTRATOR: 209/205 Pulse: 74 Chairside data as of [...] 3 Values 12/30/2023 12/02/2023 11/01/2023 Access Flow [id number] Treatment Medication Orders Medication Sig Start Date End Date Cinacalcet (Sensipar) 30 mg ORAL 3X Week Post Dialysis,with snack 04/12/2023 04/10/2024 Sodium Ferric Gluconate (Ferrlecit) 62.5 mg IVP Every Treatment During Dialysis 10/04/2023 10/02/2024 Vitamin D (Calcitriol) Oral 0.5 mcg ORAL 3X Week 05/08/2023 05/06/2024 ACTING TEACHER: Landon Calvert MD LOCATION: [phone] SCHEDULE: -W- 1st Shift EDW: kg. DIALYZER: [...] improved and no SOB. Advanced Practitioner Subjective COMPUTER TECH 01/20/2024: Patient seen while on dialysis. Reports [...] no reported issues. Continue plan of care. COMPUTER TECH 12/04/2023: Spoke with patient on dialysis. 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 Will send back to [facility] for re-evaluation and I will discusswith surgeon there 11/01/21: I will call [facility] for update on whether they have received report from her AVF surgery and plan moving forward for access revision/creation [facility] September 2021, need report [facility] appt 08/2021: [...] above goal. Intact PTH is at goal. Stucco Worker will adjust binders and vitamin D [...] filedocumented in this encounter Care Teams Motor Checker Relationship Specialty Start Date End Date Fabian Arias MD [address] [place] [address] PCP - General Family Medicine 09/04/20 documented as of this encounter
--- OUTSIDE RECORDS SUMMARY | 2024-02-15 04:17 | XMS_ITS | Encounter Summary ---
Author Organization [facility] Address [address] [place] [address] Care Team Providers Care Stock Tracer Name Role Phone Fabian Arias MD Primary Care Provider + [phone] Encounter Details Date Type Department Care Team (Late st Contact Info) Description 11/29/2023 Treatment [facility] [place] [address] [place] [address] Chata Garza, IMPROVEMENT ANALYST-FIBERLINE SUPERVISOR [address] [place] [phone] Social History Tobacco Use Types Packs/Day Years Used Date Smoking Tobacco: Smoker, Cur rent Status Unknown Cigarettes Started: 977 Sex and Gender Information Value Date Recorded Sex Assigned at Not on file Gender Identity Not on file Sexual Orientation Not on file documented as of this encounter Miscellaneous Notes * Dialysis Note - Chata Garza APRN-FIBERLINE SUPERVISOR - 11/29/2023 8:47 AM CDT Date: November 29, 2023 Patient Name: Zamzam Garibay : 1940 Chart #: [id number] Sex: F This patient was personally seen [...] AM ) BP (sit): n/a AP(-) / GRAIN HANDLER: 182/333 Pulse: n/a Chairside data as of [...] 3 Values 11/01/2023 09/30/2023 09/02/2023 Access Flow [id number] Treatment Medication Orders Medication Sig Start Date End Date Cinacalcet (Sensipar) 30 mg ORAL 3X Week Post Dialysis,with snack 04/12/2023 04/10/2024 Mircera 150 mcg IVP Every 2 weeks During Dialysis 11/04/2023 11/02/2024 Sodium Ferric Gluconate (Ferrlecit) 62.5 mg IVP Every Treatment During Dialysis 10/04/2023 10/02/2024 Vitamin D (Calcitriol) Oral 0.5 mcg ORAL 3X Week 05/08/2023 05/06/2024 WALL ATTENDANT: Landon Calvert MD LOCATION: [phone] SCHEDULE: -- 1st Shift EDW: kg. DIALYZER: [...] hasn't missed any doses. Advanced Practitioner Subjective INSPECTOR WIRE ROPE 11/29/2023: Patient seen while on dialysis. States that she is feeling good. Hospitalized last month for GI bleed. She still has some occasional black stools. Hgb has been stable around 8. Denies SOB, chest pain, cramping or dizziness. Leaving close to EDW. BP elevated. AVG functional; no reported issues. Continue plan of care. INSPECTOR WIRE ROPE 09/13/2023: Patient seen on dialysis. 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 Will send back to [facility] for re-evaluation and I will discusswith surgeon there 11/01/21: I will call [facility] for update on whether they have received report from her AVF surgery and plan moving forward for access revision/creation [facility] September 2021, need report [facility] appt 08/2021: JOHN AVF lower arm placed [...] above goal. Intact PTH is at goal. Bag Cutter will adjust binders and vitamin D [...] filedocumented in this encounter Care Teams Stock Tracer Relationship Specialty Start Date End Date Fabian Arias MD [address] [place] [address] PCP - General Family Medicine 09/04/20 documented as of this encounter
--- OUTSIDE RECORDS SUMMARY | 2024-02-15 04:17 | XMS_ITS | Encounter Summary ---
Author Organization [facility] Address [address] [place] [address] Care Team Providers Care Manager Warehouse Name Role Phone Fabian Arias MD Primary Care Provider + [phone] Encounter Details Date Type Department Care Team (Late st Contact Info) Description 12/04/2023 Treatment [facility] [address] [place] [address] Chata Garza, MOTEL MAID-VERIFICATION CLERK [address] [place] [phone] Social History Tobacco Use Types Packs/Day Years Used Date Smoking Tobacco: Smoker, Cur rent Status Unknown Cigarettes Started: 977 Sex and Gender Information Value Date Recorded Sex Assigned at Not on file Gender Identity Not on file Sexual Orientation Not on file documented as of this encounter Miscellaneous Notes * Dialysis Note - Chata Garza APRN-VERIFICATION CLERK - 12/04/2023 8:32 AM CDT Date: Dec 04, 2023 Patient Name: Zamzam Garibay : 1940 Chart #: [id number] Sex: F This patient was personally seen [...] AM ) BP (sit): n/a AP(-) / MANAGING PARTNER DIGITAL CONTENT MARKET[employer] [place]: 201/156 Pulse: n/a Chairside data as of [...] 3 Values 12/02/2023 11/01/2023 09/30/2023 Access Flow [id number] Treatment Medication Orders Medication Sig Start Date End Date Cinacalcet (Sensipar) 30 mg ORAL 3X Week Post Dialysis,with snack 04/12/2023 04/10/2024 Mircera 200 mcg IVP Every 2 weeks During Dialysis 12/04/2023 12/02/2024 Sodium Ferric Gluconate (Ferrlecit) 62.5 mg IVP Every Treatment During Dialysis 10/04/2023 10/02/2024 Vitamin D (Calcitriol) Oral 0.5 mcg ORAL 3X Week 05/08/2023 05/06/2024 KEY MAKER: Landon Calvert MD LOCATION: [phone] SCHEDULE: -- 1st Shift EDW: kg. DIALYZER: [...] hasn't missed any doses. Advanced Practitioner Subjective MECHANIC MARINE ENGINE 12/04/2023: Spoke with patient on dialysis. Continues to have black stools on occasion. She has GIappointment scheduled in December. Encouraged her to connect with PCP for follow-up. She is planning tocall today. Started on Ferrlecit and on max Mircera. Tolerating dialysis. BP improved. She has beengetting to EDW. AVG has been working well. No changes today. Continue same plan. MECHANIC MARINE ENGINE 11/29/2023: Patient seen while on dialysis. 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 Will send back to [facility] for re-evaluation and I will discusswith surgeon there 11/01/21: I will call [facility] for update on whether they have received report from her AVF surgery and plan moving forward for access revision/creation [facility] September 2021, need report [facility] appt 08/2021: JOHN AVF lower arm placed in [place], fistulagram [...] above goal. Intact PTH is at goal. Engineering Technical Analyst will adjust binders and vitamin D per [...] filedocumented in this encounter Care Teams Manager Warehouse Relationship Specialty Start Date End Date Fabian Arias MD [address] [place] [address] PCP - General Family Medicine 09/04/20 documented as of this encounter
--- OUTSIDE RECORDS SUMMARY | 2024-02-15 04:17 | XMS_ITS | Encounter Summary ---
Author Organization [facility] Address [address] [place] [address] Care Team Providers Care Petroleum Refining Equipment Operator Name Role Phone Fabian Arias MD Primary Care Provider + [phone] Encounter Details Date Type Department Care Team (Late st Contact Info) Description 01/29/2024 Orders Only [facility] [place] [address] [place] [address] Landon Calvert MD [address] [place] [address] Social History Tobacco Use Types [...] 01/30/2024 Unless otherwise specified, test(s) performed at: [facility], [address] [facility], [place] [address] COMMUNITY SERVICES COORDINATOR: Vicente Flores M.D., Ph.D For any questions, please call customer service at FREQUENCY:OTHER Resulting Agency Comment Specimen source: Blood Landon Calvert MD LAB BLOOD ORDERABLES [facility] See order comments or contact performing lab Unknown, [place] documented in this encounter Visit Diagnoses Not on filedocumented in this encounter Care Teams Petroleum Refining Equipment Operator Relationship Specialty Start Date End Date Fabian Arias MD [address] [place] [address] PCP - General Family Medicine 09/04/20 documented as of this encounter
--- OUTSIDE RECORDS SUMMARY | 2024-02-15 04:17 | XMS_ITS | Encounter Summary ---
Author Organization [facility] Address [address] [place] [address] Care Team Providers Care Legal Support Analyst Name Role Phone Fabian Arias MD Primary Care Provider + [phone] Encounter Details Date Type Department Care Team (Late st Contact Info) Description 11/11/2023 Treatment [facility] [place] [address] [place] [address] Lanodn Calvert MD [address] [facility] [place] [address] Social History Tobacco Use Types [...] Name: Zamzam Garibay : 1940 Chart #: [id number] Sex: F This patient was personally seen [...] AM ) BP (sit): 141/66 AP(-) / BOX FOLDING MACHINE OPERATOR: 189/150 Pulse: 79 Chairside data as of [...] 3 Values 11/01/2023 09/30/2023 09/02/2023 Access Flow [id number] Treatment Medication Orders Medication Sig Start Date [...] 0.5 mcg ORAL 3X Week 05/08/2023 05/06/2024 COMMUNITY RELATIONS REP: Landon Calvert MD LOCATION: [place] [phone] SCHEDULE: -- 1st Shift EDW: kg. DIALYZER: [...] hasn't missed any doses. Advanced Practitioner Subjective SHOPPER 09/13/2023: Patient seen on dialysis. Has a cold today and headache last evening. Tolerating dialysis. BP improved. She has been getting to EDW. AVG has been working well. No changes today. Continue same plan. SHOPPER 08/02/2023: Spoke with patient on dialysis. No new concerns reported. Denies SOB, chest pain, cramping or dizziness. Leaving close to EDW. AVG functional; no reported issues. Had episode of nausea off treatment in lobby; no vomiting. No headache or fever. Was feeling better after about 10 minutes. SHOPPER 07/05/2023: Patient seen while on dialysis. 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 Will send back to [facility] for re-evaluation and I will discusswith surgeon there 11/01/21: I will call [facility] for update on whether they have received report from her AVF surgery and plan moving forward for access revision/creation [facility] September 2021, need report [facility] appt 08/2021: JOHN AVF lower arm placed in [place], fistulagram [...] above goal. Intact PTH is at goal. Events Intern will adjust binders and vitamin D per [...] on filedocumented in this encounter Care Teams Legal Support Analyst Relationship Specialty Start Date End Date Fabian Arias MD [address] [place] [address] PCP - General Family Medicine 09/04/20 documented as of this encounter
--- OUTSIDE RECORDS SUMMARY | 2024-02-15 04:17 | XMS_ITS | Encounter Summary ---
Author Organization [facility] Address [address] [place] [address] Care Team Providers Care Employment Advisor Name Role Phone Fabian Arias MD Primary Care Provider + [phone] Encounter Details Date Type Department Care Team (Late st Contact Info) Description 01/08/2024 Orders Only [facility] [place] [address] [place] [address] Landon Calvert MD [address] [place] [address] Social History Tobacco Use Types [...] (01/08/2024) Hemoglobin 12.9 12.0 - 16.0 g/dL [facility] Hemoglobin x 3 38.7 36.0 - 48.0 % [facility] 01/08/2024 01/09/2024 5:5 1 PM CDT Narrative [facility] - 01/09/2024 Unless otherwise specified, test(s) performed at: [facility], [address] [facility], [place] [address] MANAGER BUSINESS CONTINUITY: Vicente Flores M.D., Ph.D For any questions, please call customer service at FREQUENCY:OTHER Resulting Agency Comment Specimen source: Blood Landon Calvert MD LAB BLOOD ORDERABLES [facility] See order comments or contact performing lab Unknown, [place] documented in this encounter Visit Diagnoses Not on filedocumented in this encounter Care Teams Employment Advisor Relationship Specialty Start Date End Date Fabian Arias MD [address] [place] [address] PCP - General Family Medicine 09/04/20 documented as of this encounter
--- OUTSIDE RECORDS SUMMARY | 2024-02-15 04:17 | XMS_ITS | Encounter Summary ---
Author Organization [facility] Address [address] [place] [address] Care Team Providers Care Packing Attendant Name Role Phone Fabian Arias MD Primary Care Provider + [phone] Encounter Details Date Type Department Care Team (Late st Contact Info) Description 02/05/2024 Orders Only [facility] [place] [address] [place] [address] Landon Calvert MD [address] [place] [address] Social History Tobacco Use Types [...] Results * [facility] Results (02/05/2024) Pathologist [facility] eKt/V ([place]) 1.51 [facility] eKt/V Gotch 1.52 [facility] eKdrt/V 1.52 [facility] nPCR_HD 0.99 [facility] PCR 34.44 [facility] spKt/V Gotch 1.82 [facility] [place] spKt/V (Daugirdas II) 1.79 [facility] eNPCR 0.86 [facility] WSTDKT/V 2.6 [facility] 02/05/2024 02/05/2024 Ordering Provider LAB BLOOD ORDERABLE [facility] Contact Performing lab Unknown, [place] * HD KINETICS (02/05/2024) Pathologist [facility] % Urea Reduction 79 65 - 80 % [facility] 02/05/2024 02/07/2024 4:3 6 AM CDT Narrative [facility] - 02/07/2024 Unless otherwise specified, test(s) performed at: [facility], [address] [place] [address], [place] [address] ORCHESTRA CONDUCTOR: Vicente Flores M.D., Ph.D For any questions, please call customer service at FREQUENCY:MONTHLY Resulting Agency Comment Specimen source: Plasma Landon Calvert MD LAB BLOOD ORDERABLES [facility] See order comments or contact performing lab Unknown, [place] * (ABNORMAL) [facility] Chemistry (02/05/2024) Pathologist [facility] BUN 47(H) 6 - 19 mg/dL [facility] [...] 02/05/2024 02/07/2024 6:1 5 AM CDT Narrative [facility] - 02/07/2024 Unless otherwise specified, test(s) performed at: [facility], [address] [place] [address], [place] [address] ORCHESTRA CONDUCTOR: Vicente Flores M.D., Ph.D For any questions, please call customer service at FREQUENCY:MONTHLY Resulting Agency Comment Specimen source: Serum Landon Calvert MD LAB BLOOD ORDERABLES [facility] See order comments or contact performing lab Unknown, [place] * IMMUNO CHEMISTRY (02/05/2024) Hep B Surface Ag Negative Negative [facility] 02/05/2024 02/07/2024 5:4 7 AM CDT Narrative Resulting Agency Comment Specimen source: Plasma Landon Calvert MD LAB BLOOD ORDERABLES Performing Organization Address [facility] de Phone Number [facility] See order comments or contact performing lab Unknown, [place] * (ABNORMAL) [facility] Chemistry (02/05/2024) PTH 289(H) 16 - 80 pg/mL [facility] 02/05/2024 02/07/2024 5:4 7 AM CDT Narrative [facility] - 02/07/2024 Unless otherwise specified, test(s) performed at: [facility], [address] [place] [address], [place] [address] ORCHESTRA CONDUCTOR: Vicente Flores M.D., Ph.D For any questions, please call customer service at FREQUENCY:MONTHLY Resulting Agency Comment Specimen source: Plasma Landon Calvert MD LAB BLOOD ORDERABLES Performing Organization Address [facility] de Phone Number [facility] See order comments or contact performing lab Unknown, [place] * POST CHEMISTRY (02/05/2024) Pathologist [facility] BUN Post Dialysis 10 6 - 19 mg/dL [facility] 02/05/2024 02/07/2024 4:3 6 AM CDT Narrative [facility] - 02/07/2024 Unless otherwise specified, test(s) performed at: [facility], [address] [place] [address], [place] [address] ORCHESTRA CONDUCTOR: Vicente Flores M.D., Ph.D For any questions, please call customer service at FREQUENCY:MONTHLY Resulting Agency Comment Specimen source: Plasma Landon Calvert MD LAB BLOOD ORDERABLES Performing Organization Address [facility] de Phone Number [facility] See order comments or contact performing lab Unknown, [place] * (ABNORMAL) HEMATOLOGY (02/05/2024) Pathologist [facility] WBC 5.45 4.80 - 10.80 1000/mcL [facility] [...] 02/07/2024 Unless otherwise specified, test(s) performed at: [facility], [address] [place] [address], [place] [address] ORCHESTRA CONDUCTOR: Vicente Flores M.D., Ph.D For any questions, please call customer service at FREQUENCY:MONTHLY Resulting Agency Comment Specimen source: Blood Landon Calvert MD LAB BLOOD ORDERABLES [facility] See order comments or contact performing lab Unknown, [place] documented in this encounter Visit Diagnoses Not on filedocumented in this encounter Care Teams Packing Attendant Relationship Specialty Start Date End Date Fabian Arias MD [address] [place] [address] PCP - General Family Medicine 09/04/20 documented as of this encounter
--- OUTSIDE RECORDS SUMMARY | 2024-02-15 04:17 | XMS_ITS | Encounter Summary ---
Author Organization [facility] Address [address] [place] [address] Care Team Providers Care Electrical Engineer Mep Name Role Phone Fabian Arias MD Primary Care Provider + [phone] Encounter Details Date Type Department Care Team (Late st Contact Info) Description 12/25/2023 Treatment [facility] [place] [address] [place] [address] Landon Calvert MD [address] [facility] [place] [place] [address] Social History Tobacco Use Types [...] Name: Zamzam Garibay : 1940 Chart #: [id number] Sex: F This patient was personally seen [...] AM ) BP (sit): 159/77 AP(-) / SEROLOGY TEACHER: 206/167 Pulse: 70 Chairside data as of [...] Values 12/02/2023 11/01/2023 09/30/2023 Access Flow [id number] VACUUM CLEANER REPAIRER: Landon Calvert MD LOCATION: [place] [phone] SCHEDULE: -- 1st Shift EDW: kg. DIALYZER: [...] improved and no SOB. Advanced Practitioner Subjective SHED WORKERS SUPERVISOR 12/04/2023: Spoke with patient on dialysis. Continues to have black stools on occasion. She has GIappointment scheduled in December. Encouraged her to connect with PCP for follow-up. She is planning tocall today. Started on Ferrlecit and on max Mircera. Tolerating dialysis. BP improved. She has beengetting to EDW. AVG has been working well. No changes today. Continue same plan. SHED WORKERS SUPERVISOR 11/29/2023: Patient seen while on dialysis. 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 Will send back to [facility] [place] re-evaluation and I will discusswith surgeon there 11/01/21: I will call [facility] for update on whether they have received report from her AVF surgery and plan moving forward for access revision/creation [facility] [place] 2021, need report [facility] appt 08/2021: LUE AVF lower arm placed in [place], fistulagram / stenosis of vein proximal not [...] above goal. Intact PTH is at goal. Retail Greeting Card Merchandiser will adjust binders and vitamin D per [...] on filedocumented in this encounter Care Teams Electrical Engineer Mep Relationship Specialty Start Date End Date Fabian Arias MD [address] [place] [address] PCP - General Family Medicine 09/04/20 documented as of this encounter
--- OUTSIDE RECORDS SUMMARY | 2024-02-15 04:17 | XMS_ITS | Encounter Summary ---
Author Organization [facility] Address [address] [place] [address] Care Team Providers Care Rag Grader Name Role Phone Fabian Arias MD Primary Care Provider + [phone] Encounter Details Date Type Department Care Team (Late st Contact Info) Description 01/17/2024 Orders Only [facility] [place] [address] [place] [address] Landon Calvert MD [address] [place] [address] Social History Tobacco Use Types [...] (01/17/2024) Hemoglobin 12.8 12.0 - 16.0 g/dL [facility] Hemoglobin x 3 38.4 36.0 - 48.0 % [facility] 01/17/2024 01/18/2024 7:1 3 AM CDT Narrative [facility] - 01/18/2024 Unless otherwise specified, test(s) performed at: [facility], [address] [facility], [place] [address] SLOTTER OPERATOR HELPER: Vicente Flores M.D., Ph.D For any questions, please call customer service at FREQUENCY:OTHER Resulting Agency Comment Specimen source: Blood Landon Calvert MD LAB BLOOD ORDERABLES [facility] See order comments or contact performing lab Unknown, [place] documented in this encounter Visit Diagnoses Not on filedocumented in this encounter Care Teams Rag Grader Relationship Specialty Start Date End Date Fabian Arias MD [address] [place] [address] PCP - General Family Medicine 09/04/20 documented as of this encounter
--- OUTSIDE RECORDS SUMMARY | 2024-02-15 04:17 | XMS_ITS | Clinical Summary ---
Author Organization [facility] Facility Address [address] [address] Care Team Providers Care Fountain Waitress/Waiter Name Role Phone Fabian Arias MD Primary Care Provider + [phone] Allergies Active Allergy Reactions Criticality Noted Date [...] Of [place] [address] [place] [phone] Landon Calvert MD 02/05/2024 Orders Only [facility] [place] [address] [place] [phone] Landon Calvert MD 01/29/2024 Orders Only [facility] [place] [address] [place] [address] Landon Calvert MD 01/29/2024 Treatment [facility] [place] [address] [facility] [address] [place] [address] Landon Calvert MD 01/22/2024 Orders Only [facility] [place] [address] [place] [address] Landon Calvert MD 01/20/2024 Treatment [facility] [place] [address] [place] [address] Christa Garza APRN-CENTRIFUGAL SPINNER 01/17/2024 Orders Only [facility] [place] [address] [place] [address] Landon Calvert MD 01/08/2024 Orders Only [facility] [place] [address] [place] [address] Landon Calvert MD 01/06/2024 Orders Only [facility] [place] [address] [place] [address] Landon Calvert MD 01/01/2024 Orders Only [facility] [place] [address] [place] [address] Landon Calvert MD 12/25/2023 Orders Only [facility] [place] [address] [place] [address] Landon Calvert MD 12/25/2023 Treatment [facility] [place] [address] [place] [address] Landon Calvert MD 12/23/2023 Orders Only [facility] [place] [address] [place] [address] Landon Calvert MD 12/18/2023 Orders Only [facility] [place] [address] [place], [place] [address] Landon Calvert MD 12/11/2023 Orders Only [facility] [place] [address] [place], [place] [address] Landon Calvert MD 12/04/2023 Orders Only [facility] [place] [address] [place] [address] Landon Calvert MD 12/04/2023 Treatment [facility] [place] [address] [facility] [address] [place] [address] Christa Garza, DIRECTOR MEDICARE SALES-CENTRIFUGAL SPINNER 11/29/2023 Treatment [facility] [place] [address] [facility] [address] [place] [address] Christa Garza, DIRECTOR MEDICARE SALES-CENTRIFUGAL SPINNER 11/27/2023 Orders Only [facility] [place] [address] [place] [address] Landon Calvert MD 11/20/2023 Orders Only [facility] [place] [address] [place] [address] Landon Calvert MD from Last 3 Months [...] Comments Blood Pressure 130/80 09/05/2020 1:08 PM TURN DOWN ATTENDANT Pulse 87 09/05/2020 1:08 PM TURN DOWN ATTENDANT Temperature 36.6 ??C (97.8 ??F) 06/02/2020 12:[address] Respiratory Rate - - Oxygen Saturation 98% 09/05/2020 1:08 PM TURN DOWN ATTENDANT Inhaled Oxygen Concentration - - Weight 48.5 kg (107 lb) 09/05/2020 1:08 PM TURN DOWN ATTENDANT Height 160 cm (5' 3) 09/05/2020 1:08 PM TURN DOWN ATTENDANT Body Mass Index 18.95 09/05/2020 1:08 PM TURN DOWN ATTENDANT Plan of Treatment Health Maintenance Due Date [...] 12/23/2023 HEMATOLOGY Routine 12/18/2023 HEMATOLOGY Routine 12/11/2023 [facility] LOYD LAB RESULTS Routine 12/04/2023 IMMUNO CHEMISTRY Routine 12/04/2023 HEMATOLOGY Routine 12/04/2023 HD KINETICS Routine 12/04/2023 POST CHEMISTRY Routine 12/04/2023 CHEMISTRY Routine 12/04/2023 HEMATOLOGY Routine 11/27/2023 HEMATOLOGY Routine 11/20/2023 CHEMISTRY Routine 11/20/2023 from Last 3 Months Results * HD KINETICS (02/05/2024) Only the most recent of4 resultswithin the time period is included. % Urea Reduction 79 65 - 80 % Zones 02/05/2024 02/07/2024 4:3 6 AM CDT Narrative [facility] - 02/07/2024 Unless otherwise specified, test(s) performed at: [employer] [address] [place] [address], [place] [address] CIVIL CAD DESIGNER: Vicente Flores M.D., Ph.D For any questions, please call customer service at FREQUENCY:MONTHLY Resulting Agency Comment Specimen source: Plasma Landon Calvert MD LAB BLOOD ORDERABLES Performing Organization Address [facility] de Phone Number [facility] See order comments or contact performing lab Unknown, [place] * POST CHEMISTRY (02/05/2024) Only the most recent of4 resultswithin the time period is included. BUN Post Dialysis 10 6 - 19 mg/dL [facility] 02/05/2024 02/07/2024 4:3 6 AM CDT Narrative [facility] - 02/07/2024 Unless otherwise specified, test(s) performed at: [employer] [address] [place] [address] CIVIL CAD DESIGNER: Vicente Flores M.D., Ph.D For any questions, please call customer service at FREQUENCY:MONTHLY Resulting Agency Comment Specimen source: Plasma Landon Calvert MD LAB BLOOD ORDERABLES Performing Organization Address [facility] de Phone Number [facility] See order comments or contact performing lab Unknown, [place] * IMMUNO CHEMISTRY (02/05/2024) Only the most recent of3 resultswithin the time period is included. Hep B Surface Ag Negative Negative [facility] 02/05/2024 02/07/2024 5:4 7 AM CDT Narrative Resulting Agency Comment Specimen source: Plasma Landon Calvert MD LAB BLOOD ORDERABLES Performing Organization Address [facility] Co de Phone Number [facility] [...] 02/05/2024 02/07/2024 5:1 7 AM CDT Narrative [facility] - 02/07/2024 Unless otherwise specified, test(s) performed at: [facility] [address] [place] [address], [place] [address] CIVIL CAD DESIGNER: Vicente Flores M.D., Ph.D For any questions, please call customer service at FREQUENCY:MONTHLY Resulting Agency Comment Specimen source: Blood Landon Calvert MD LAB BLOOD ORDERABLES [facility] See order comments or contact performing [...] 02/05/2024 02/07/2024 6:1 5 AM CDT Narrative [facility] - 02/07/2024 Unless otherwise specified, test(s) performed at: [employer] [address] [place] [address], [place] [address] CIVIL CAD DESIGNER: Vicente Flores M.D., Ph.D For any questions, please call customer service at FREQUENCY:MONTHLY Resulting Agency Comment Specimen source: Serum Landon Calvert MD LAB BLOOD ORDERABLES [facility] See order comments or contact performing lab Unknown, [place] * [facility] Lab Results (02/05/2024) Only the most recent of4 resultswithin the time period is included. eKt/V (Tattersall) 1.51 [facility] eKt/V Gotch 1.52 [facility] e Center eKdrt/V 1.52 [facility] nPCR_HD 0.99 [facility] PCR 34.44 [facility] spKt/V Gotch 1.82 [facility] [place] spKt/V (Daugirdas II) 1.79 [facility] eNPCR 0.86 [facility] WSTDKT/V 2.6 [facility] 02/05/2024 02/05/2024 Loyd Ordering Provider LAB BLOOD ORDERABLE S [facility] Contact Performing lab Unknown, [place] from Last 3 Months Care Teams Fountain Waitress/Waiter Relationship Specialty Start Date End Date Fabian Arias MD [address] [place] [address] PCP - General Family Medicine 09/04/20
--- OUTSIDE RECORDS SUMMARY | 2024-02-15 04:17 | XMS_ITS | Encounter Summary ---
Author Organization [facility] [place] Address [address] [place] [address] Care Team Providers Care Cyber Legal Advisor Name Role Phone Fabian Arias MD Primary Care Provider + [phone] Encounter Details Date Type Department Care Team (Late st Contact Info) Description 11/20/2023 Orders Only [facility] [place] [address] [place] [address] Landon Calvert MD [address] [place] [address] Social History Tobacco Use Types [...] 11/20/2023 11/21/2023 4:1 2 AM CDT Narrative [facility] - 11/21/2023 Unless otherwise specified, test(s) performed at: [facility], [address] [place] [address], [place] [address] FURNACE OPERATOR OIL OR GAS: Vicente Flores M.D., Ph.D For any questions, please call customer service at FREQUENCY:OTHER Resulting Agency Comment Specimen source: Blood Landon Calvert MD LAB BLOOD ORDERABLES Performing Organization Address [facility] Co de Phone Number [facility] See order comments or contact performing lab Unknown, [place] * (ABNORMAL) [facility] Chemistry (11/20/2023) Potassium 4.8 3.5 - 5.1 mEq/L [facility] Phosphorus 5.8(H) 2.6 - 4.5 mg/dL [facility] 11/20/2023 11/21/2023 3:4 5 AM CDT Narrative [facility] - 11/21/2023 Unless otherwise specified, test(s) performed at: [facility], [address] [place] [address], [place] [address] FURNACE OPERATOR OIL OR GAS: Vicente Flores M.D., Ph.D For any questions, please call customer service at FREQUENCY:OTHER Resulting Agency Comment Specimen source: Serum Landon Calvert MD LAB BLOOD ORDERABLES Performing Organization Address [facility] Co de Phone Number [facility] See order comments or contact performing lab Unknown, [place] documented in this encounter Visit Diagnoses Not on filedocumented in this encounter Care Teams Cyber Legal Advisor Relationship Specialty Start Date End Date Fabian Arias MD [address] [place] [address] PCP - General Family Medicine 09/04/20 documented as of this encounter
--- OUTSIDE RECORDS SUMMARY | 2024-02-15 04:17 | XMS_ITS | Encounter Summary ---
Author Organization [facility] [place] Address [address] [place] [address] Care Team Providers Care Block Greaser Name Role Phone Fabian Arias MD Primary Care Provider + [phone] Encounter Details Date Type Department Care Team (Late st Contact Info) Description 02/14/2024 Treatment [facility] [place] [address] [place] [address] Landon Calvert MD [address] [place] [address] Social History Tobacco Use Types [...] Name: Zamzam Garibay : 1940 Chart #: [id number] Sex: F This patient was personally seen [...] AM ) BP (sit): 197/102 AP(-) / OUTSIDE B2B SALES: n/a Pulse: 78 Chairside data as of [...] 3 Values 01/31/2024 12/30/2023 12/02/2023 Access Flow [id number] Treatment Medication Orders Medication Sig Start [...] 0.5 mcg ORAL 3X Week 05/08/2023 05/06/2024 PLEXIGLAS FORMER: Landon Calvert MD LOCATION: [place] [phone] SCHEDULE: -- 1st Shift EDW: kg. DIALYZER: [...] her go to ER. Advanced Practitioner Subjective NEWS TECHNICAL DIRECTOR 01/20/2024: Patient seen while on dialysis. Reports [...] no reported issues. Continue plan of care. NEWS TECHNICAL DIRECTOR 12/04/2023: Spoke with patient on dialysis. 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 Will send back to [facility] for re-evaluation and I will discusswith surgeon there 11/01/21: I will call [facility] for update on whether they have received report from her AVF surgery and plan moving forward for access revision/creation [facility] September 2021, need report [facility] appt 08/2021: JOHN AVF lower arm placed in [place], [...] above goal. Intact PTH is at goal. Pool Nurse will adjust binders and vitamin D per [...] on filedocumented in this encounter Care Teams Block Greaser Relationship Specialty Start Date End Date Fabian Arias MD [address] [place] [id number] PCP - General Family Medicine 09/04/20 documented as of this encounter
--- OUTSIDE RECORDS SUMMARY | 2024-02-15 04:17 | XMS_ITS | Encounter Summary ---
Author Organization [facility] [place] Address [address] [place] [address] Care Team Providers Care Applied Behavior Science Specialist Name Role Phone Fabian Arias MD Primary Care Provider + [phone] Encounter Details Date Type Department Care Team (Late st Contact Info) Description 01/22/2024 Orders Only [facility] [place] [address] [place] [address] Landon Calvert MD [address] [place] [address] Social History Tobacco Use Types [...] (01/22/2024) Hemoglobin 13.1 12.0 - 16.0 g/dL [facility] Hemoglobin x 3 39.3 36.0 - 48.0 % [facility] 01/22/2024 01/23/2024 3:3 8 AM CDT Narrative [facility] - 01/23/2024 Unless otherwise specified, test(s) performed at: [email or web address], [address] [facility], [place] [address] DELIVERY CONSULTANT: Vicente Flores M.D., Ph.D For any questions, please call customer service at FREQUENCY:OTHER Resulting Agency Comment Specimen source: Blood Landon Calvert MD LAB BLOOD ORDERABLES [facility] See order comments or contact performing lab Unknown, [place] documented in this encounter Visit Diagnoses Not on filedocumented in this encounter Care Teams Applied Behavior Science Specialist Relationship Specialty Start Date End Date Fabian Arias MD [address] [place] [address] PCP - General Family Medicine 09/04/20 documented as of this encounter
--- OUTSIDE RECORDS SUMMARY | 2024-02-15 04:17 | XMS_ITS | Encounter Summary ---
Author Organization [facility] [place] Address [address] [place] [address] Care Team Providers Care Military Technology Manager Name Role Phone Fabian Arias MD Primary Care Provider + [phone] Encounter Details Date Type Department Care Team (Late st Contact Info) Description 12/25/2023 Orders Only [facility] [place] [address] [place] [address] Landon Calvert MD [address] [place] [address] Social History Tobacco Use Types [...] 12/26/2023 Unless otherwise specified, test(s) performed at: [facility], [address] [place] [address] MANAGER CONTRACTING: Vicente Flores M.D., Ph.D For any questions, please call customer service at FREQUENCY:OTHER Resulting Agency Comment Specimen source: Serum Landon Calvert MD LAB BLOOD ORDERABLES Performing Organization Address [facility] Co de Phone Number [facility] See order comments or contact performing lab Unknown, [place] * (ABNORMAL) HEMATOLOGY (12/25/2023) Hemoglobin 10.6(L) 12.0 - 16.0 g/dL [facility] Hemoglobin x 3 31.8(L) 36.0 - 48.0 % [facility] 12/25/2023 12/26/2023 12: 07 PM CDT Narrative [facility] delicious [facility] - 12/26/2023 Unless otherwise specified, test(s) performed at: [facility], [address] [place] [address] MANAGER CONTRACTING: Vicente Flores M.D., Ph.D For any questions, please call customer service at FREQUENCY:OTHER Resulting Agency Comment Specimen source: Blood Landon Calvert MD LAB BLOOD ORDERABLES Performing Organization Address [facility] de Phone Number [facility] See order comments or contact performing lab Unknown, [place] documented in this encounter Visit Diagnoses Not on filedocumented in this encounter Care Teams Military Technology Manager Relationship Specialty Start Date End Date Fabian Arias MD [address] [place] [address] PCP - General Family Medicine 09/04/20 documented as of this encounter
--- OUTSIDE RECORDS SUMMARY | 2024-02-15 04:17 | XMS_ITS | Encounter Summary ---
Author Organization [facility] [place] Address [address] [place] [address] Care Team Providers Care Respite Coordinator Name Role Phone Fabian Arias MD Primary Care Provider + [phone] Encounter Details Date Type Department Care Team (Late st Contact Info) Description 12/04/2023 Orders Only [facility] [place] [address] [place] [address] Landon Calvert MD [address] [place] [address] Social History Tobacco Use Types [...] * [facility] Results (12/04/2023) Pathologist [facility] spKt/V Gotch 2.31 [facility] nPCR_HD 1.01 [facility] eKt/V (Tattersall) 1.94 [facility] eKdrt/V 1.95 [facility] spKt/V (Daugirdas II) 2.26 [facility] PCR 36.06 [facility] WSTDKT/V 2.8 [facility] eKt/V Gotch 1.95 [facility] eNPCR 0.86 [facility] 12/04/2023 12/04/2023 Celia Ordering Provider LAB BLOOD ORDERABLE S [facility] Contact Performing lab Unknown, [place] * IMMUNO CHEMISTRY (12/04/2023) Pathologist [facility] Hep B Surface Ag Negative Negative [facility] 12/04/2023 12/05/2023 4:1 9 PM CDT Narrative [facility] - 12/05/2023 Unless otherwise specified, test(s) performed at: [facility], [address] [place] [address], [place] [address] COMMISSIONING MANAGER: Vicente Flores M.D., Ph.D For any questions, please call customer service at FREQUENCY:MONTHLY Resulting Agency Comment Specimen source: Plasma Landon Calvert MD LAB BLOOD ORDERABLES [facility] See order comments or contact performing lab Unknown, [place] * (ABNORMAL) HEMATOLOGY (12/04/2023) Pathologist [facility] WBC 6.90 4.80 - 10.80 1000/mcL [facility] [...] 12/04/2023 12/05/2023 12: 06 PM CDT Narrative [facility] - 12/05/2023 Unless otherwise specified, test(s) performed at: [facility], [address] [place] [address], [place] [address] COMMISSIONING MANAGER: Vicente Flores M.D., Ph.D For any questions, please call customer service at FREQUENCY:MONTHLY Resulting Agency Comment Specimen source: Blood Landon Calvert MD LAB BLOOD ORDERABLES [facility] See order comments or contact performing lab Unknown, [place] * (ABNORMAL) HD KINETICS (12/04/2023) % Urea Reduction 85(H) 65 - 80 % [facility] 12/04/2023 12/05/2023 10: 43 AM CDT Narrative Resulting Agency Comment Specimen source: Plasma Landon Calvert MD LAB BLOOD ORDERABLES [facility] See order comments or contact performing lab Unknown, [place] * POST CHEMISTRY (12/04/2023) BUN Post Dialysis 6 6 - 19 mg/dL [facility] 12/04/2023 12/05/2023 10: 43 AM CDT Narrative [facility] - 12/05/2023 Unless otherwise specified, test(s) performed at: [facility], [address] [place] [address], [place] [address] COMMISSIONING MANAGER: Vicente Flores M.D., Ph.D For any questions, please call customer service at FREQUENCY:MONTHLY Resulting Agency Comment Specimen source: Plasma Landon Calvert MD LAB BLOOD ORDERABLES [facility] See order comments or contact performing lab Unknown, [place] * (ABNORMAL) [facility] Chemistry (12/04/2023) BUN 41(H) 6 - 19 [...] 12/04/2023 12/05/2023 11: 35 AM CDT Narrative [facility] - 12/05/2023 Unless otherwise specified, test(s) performed at: [facility], [address] [place] [address], [place] [address] COMMISSIONING MANAGER: Vicente Flores M.D., Ph.D For any questions, please call customer service at FREQUENCY:MONTHLY Resulting Agency Comment Specimen source: Serum Landon Calvert MD LAB BLOOD ORDERABLES [facility] See order comments or contact performing lab Unknown, [place] documented in this encounter Visit Diagnoses Not on filedocumented in this encounter Care Teams Respite Coordinator Relationship Specialty Start Date End Date Fabian Arias MD [address] [place] [address] PCP - General Family Medicine 09/04/20 documented as of this encounter
--- OUTSIDE RECORDS SUMMARY | 2024-02-15 04:17 | XMS_ITS | Encounter Summary ---
Author Organization [facility] Address [address] [place] [address] Care Team Providers Care Tape Editor Name Role Phone Fabian Arias MD Primary Care Provider + [phone] Encounter Details Date Type Department Care Team (Late st Contact Info) Description 01/06/2024 Orders Only [facility] [place] [address] [place] [address] Landon Calvert MD [address] [place] [address] Social History Tobacco Use Types [...] CELIA Lab Results (01/06/2024) eKt/V Gotch 1.69 [facility] PCR 47.20 [facility] eKt/V (Tattersall) 1.69 [facility] spKt/V Gotch 2.00 [facility] WSTDKT/V 2.7 [facility] nPCR_HD 1.34 [facility] eNPCR 1.19 [facility] spKt/V (Daugirdas II) 1.97 [facility] eKdrt/V 1.69 [facility] 01/06/2024 01/06/2024 Celia Ordering Provider LAB BLOOD ORDERABLE S CELIA [facility] Contact Performing lab Unknown, [place] * HD KINETICS (01/06/2024) % Urea Reduction 80 65 - 80 % [facility] 01/06/2024 01/07/2024 10: 05 AM CDT Narrative Resulting Agency Comment Specimen source: Plasma Landon Calvert MD LAB BLOOD ORDERABLES Performing Organization Address [facility] Co de Phone Number [facility]PS [facility] See order comments or contact performing lab Unknown, [place] * POST CHEMISTRY (01/06/2024) BUN Post Dialysis 16 6 - 19 mg/dL [facility] 01/06/2024 01/07/2024 10: 05 AM CDT Narrative [facility] - 01/07/2024 Unless otherwise specified, test(s) performed at: [facility], [address] [place] [address], [place] [address] OUTPATIENT SURGERY RN: Vicente Flores M.D., Ph.D For any questions, please call customer service at FREQUENCY:OTHER Resulting Agency Comment Specimen source: Plasma Landon Calvert MD LAB BLOOD ORDERABLES Performing Organization Address City/[facility] Co de Phone Number [facility] See order comments or contact performing lab Unknown, [place] * (ABNORMAL) [facility] Chemistry (01/06/2024) BUN 80(H) 6 - 19 mg/dL [facility] 01/06/2024 01/07/2024 9:5 4 AM CDT Narrative [facility] - 01/07/2024 Unless otherwise specified, test(s) performed at: [facility], [address] [place] [address], [place] [address] OUTPATIENT SURGERY RN: Vicente Flores M.D., Ph.D For any questions, please call customer service at FREQUENCY:OTHER Resulting Agency Comment Specimen source: Serum Landon Calvert MD LAB BLOOD ORDERABLES [facility] See order comments or contact performing lab Unknown, [place] documented in this encounter Visit Diagnoses Not on filedocumented in this encounter Care Teams Tape Editor Relationship Specialty Start Date End Date Fabian Arias MD [address] [place] [address] PCP - General Family Medicine 09/04/20 documented as of this encounter
--- OUTSIDE RECORDS SUMMARY | 2024-02-15 04:17 | XMS_ITS | Encounter Summary ---
Author Organization [facility] [place] Address [address] [place] [address] Care Team Providers Care Gear Grinder Name Role Phone Fabian Arias MD Primary Care Provider + [phone] Encounter Details Date Type Department Care Team (Late st Contact Info) Description 01/29/2024 Treatment [facility] [place] [address] [place] [address] Landon Calvert MD [address] [place] [address] Social History Tobacco Use Types [...] Name: Zamzam Garibay : 1940 Chart #: [id number] Sex: F This patient was personally seen [...] AM ) BP (sit): 156/75 AP(-) / KNITTED CLOTH EXAMINER: 217/263 Pulse: 57 Chairside data as of [...] 3 Values 12/30/2023 12/02/2023 11/01/2023 Access Flow [id number] WIPER BLENDER: Landon Calvert MD LOCATION: [phone] SCHEDULE: -- 1st Shift EDW: kg. DIALYZER: HD DURATION: NEEDLE SIZE: ANTICOAG: BATH: QB: ml/min QD: ml/min Subjective Tolerating dialysis well. 01/28: I feel the best I have felt in years. Hgb is up, Mircera held. With holding oral iron, stools no longer black. She has no concerns. Advanced Practitioner Subjective MOLD MAINTENANCE TECHNICIAN 01/20/2024: Patient seen while on dialysis. Reports [...] no reported issues. Continue plan of care. MOLD MAINTENANCE TECHNICIAN 12/04/2023: Spoke with patient on dialysis. 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 Intact PTH is at goal. Veneer Jointer Operator will adjust binders and vitamin D [...] on filedocumented in this encounter Care Teams Gear Grinder Relationship Specialty Start Date End Date Fabian Arias MD [address] [place] [id number] PCP - General Family Medicine 09/04/20 documented as of this encounter
--- OUTSIDE RECORDS SUMMARY | 2024-02-15 04:17 | XMS_ITS | Encounter Summary ---
Author Organization [facility] Address [address] [place] [address] Care Team Providers Care Pre Certification Specialist Name Role Phone Fabian Arias MD Primary Care Provider + [phone] Encounter Details Date Type Department Care Team (Late st Contact Info) Description 11/27/2023 Orders Only [facility] [place] [address] [place] [address] Landon Calvert MD [address] [place] [address] Social History Tobacco Use Types [...] 11/28/2023 Unless otherwise specified, test(s) performed at: [facility], [address] [facility], [place] [address] LANDSCAPE DESIGNER: Vicente Flores M.D., Ph.D For any questions, please call customer service at FREQUENCY:OTHER Resulting Agency Comment Specimen source: Blood Landon Calvert MD LAB BLOOD ORDERABLES [facility]RA [facility] See order comments or contact performing lab Unknown, [place] documented in this encounter Visit Diagnoses Not on filedocumented in this encounter Care Teams Pre Certification Specialist Relationship Specialty Start Date End Date Fabian Arias MD [address] [place] [address] PCP - General Family Medicine 09/04/20 documented as of this encounter
--- OUTSIDE RECORDS SUMMARY | 2024-02-15 04:17 | XMS_ITS | Encounter Summary ---
Author Organization [facility] Address [address] [place] [address] Care Team Providers Care Insurance Underwriting Assistant Name Role Phone Fabian Arias MD Primary Care Provider + [phone] Encounter Details Date Type Department Care Team (Late st Contact Info) Description 11/13/2023 Orders Only [facility] [place] [address] [place] [address] Landon Calvert MD [address] [place] [address] Social History Tobacco Use Types [...] 11/14/2023 Unless otherwise specified, test(s) performed at: [facility], [address] [place] [address] COLLAR TURNER OPERATOR: Vicente Flores M.D., Ph.D For any questions, please call customer service at FREQUENCY:OTHER Resulting Agency Comment Specimen source: Blood Landon Calvert MD LAB BLOOD ORDERABLES [facility]RA [facility] See order comments or contact performing lab Unknown, [place] documented in this encounter Visit Diagnoses Not on filedocumented in this encounter Care Teams Insurance Underwriting Assistant Relationship Specialty Start Date End Date Fabian Arias MD [address] [place] [address] PCP - General Family Medicine 09/04/20 documented as of this encounter
--- OUTSIDE RECORDS SUMMARY | 2024-02-15 04:17 | XMS_ITS | Encounter Summary ---
Author Organization [facility] Address [address] [place] [address] Care Team Providers Care Joint Terminal Attack Controller Name Role Phone Fabian Arias MD Primary Care Provider + [phone] Encounter Details Date Type Department Care Team (Late st Contact Info) Description 12/18/2023 Orders Only [facility] [place] [address] [place] [address] Landon Calvert MD [address] [place] [address] Social History Tobacco Use Types [...] 12/20/2023 Unless otherwise specified, test(s) performed at: [facility], [address] [place] [address] METAL INSPECTOR: Vicente Flores M.D., Ph.D For any questions, please call customer service at FREQUENCY:OTHER Resulting Agency Comment Specimen source: Blood Landon Calvert MD LAB BLOOD ORDERABLES [facility] See order comments or contact performing lab Unknown, [place] documented in this encounter Visit Diagnoses Not on filedocumented in this encounter Care Teams Joint Terminal Attack Controller Relationship Specialty Start Date End Date Fabian Arias MD [address] [place] [address] PCP - General Family Medicine 09/04/20 documented as of this encounter
--- OUTSIDE RECORDS SUMMARY | 2024-02-15 04:17 | XMS_ITS | Encounter Summary ---
Author Organization [facility] Address [address] [place] [address] Care Team Providers Care Seasonal Greenery Bundler Name Role Phone Fabian Arias MD Primary Care Provider + [phone] Encounter Details Date Type Department Care Team (Late st Contact Info) Description 12/11/2023 Orders Only [facility] [place] [address] [place] [address] Landon Calvert MD [address] [place] [address] Social History Tobacco Use Types [...] 12/12/2023 Unless otherwise specified, test(s) performed at: [facility], [address] [place] [address] RECONCILIATION ACCOUNTANT: Vicente Flores M.D., Ph.D For any questions, please call customer service at FREQUENCY:OTHER Resulting Agency Comment Specimen source: Blood Landon Calvert MD LAB BLOOD ORDERABLES [facility] See order comments or contact performing lab Unknown, [place] documented in this encounter Visit Diagnoses Not on filedocumented in this encounter Care Teams Seasonal Greenery Bundler Relationship Specialty Start Date End Date Fabian Arias MD [address] [place] [address] PCP - General Family Medicine 09/04/20 documented as of this encounter
--- OUTSIDE RECORDS SUMMARY | 2024-02-15 04:17 | XMS_ITS | Encounter Summary ---
Author Organization [facility] Address [address] [place] [address] Care Team Providers Care Internal Communications Specialist Name Role Phone Fabian Arias MD Primary Care Provider + [phone] Encounter Details Date Type Department Care Team (Late st Contact Info) Description 12/23/2023 Orders Only [facility] [place] [address] [place] [address] Landon Calvert MD [address] [place] [address] Social History Tobacco Use Types [...] (12/23/2023) Phosphorus 5.7(H) 2.6 - 4.5 mg/dL [facility] 12/23/2023 12/24/2023 11: 33 AM CDT Narrative [facility] - 12/24/2023 Unless otherwise specified, test(s) performed at: [facility], [address] [place] [address] LICENSED INVESTMENT SALES ASSISTANT: Vicente Flores M.D., Ph.D For any questions, please call customer service at FREQUENCY:OTHER Resulting Agency Comment Specimen source: Serum Landon Calvert MD LAB BLOOD ORDERABLES [facility] See order comments or contact performing lab Unknown, [place] documented in this encounter Visit Diagnoses Not on filedocumented in this encounter Care Teams Internal Communications Specialist Relationship Specialty Start Date End Date Fabian Arias MD [address] [place] [address] PCP - General Family Medicine 09/04/20 documented as of this encounter
--- OUTSIDE RECORDS SUMMARY | 2024-02-15 04:18 | XMS_ITS | Encounter Summary ---
Author Organization [facility] Address [address] [place] [address] Care Team Providers Care Heavy Threader Name Role Phone Fabian Arias MD Primary Care Provider + [phone] Encounter Details Date Type Department Care Team (Late st Contact Info) Description 11/06/2023 Orders Only [facility] [place] [address] [place] [address] Landon Calvert MD [address] [place] [address] Social History Tobacco Use Types [...] 11/07/2023 Unless otherwise specified, test(s) performed at: [facility], [address] [facility], [place] [address] SCHOOL BUS DRIVER/CUSTODIAN: Vicente Flores M.D., Ph.D For any questions, please call customer service at FREQUENCY:OTHER Resulting Agency Comment Specimen source: Blood Landon Calvert MD LAB BLOOD ORDERABLES [facility] See order comments or contact performing lab Unknown, [place] documented in this encounter Visit Diagnoses Not on filedocumented in this encounter Care Teams Heavy Threader Relationship Specialty Start Date End Date Fabian Arias MD [address] [place] [address] PCP - General Family Medicine 09/04/20 documented as of this encounter
--- OUTSIDE RECORDS SUMMARY | 2024-02-15 04:18 | XMS_ITS | Encounter Summary ---
Author Organization [facility] Address [address] [place] [address] Phone Care Team Providers Care Tool Hardener Name Role Phone Fabian Arias MD Primary Care Provider [phone] Encounter Details Date Type Department Care Team (Latest Contact Info) Description 12/04/2020 Orders Only [facility] [address] [place] [address] Robert Newell MD [address] [place] [address] Chronic kidney disease, Stage V [...] origin documented in this encounter Care Teams Tool Hardener Relationship Specialty Start Date End Date Fabian Arias MD [address] [place] [address] PCP - General Family Medicine 09/04/20 documented as of this encounter
--- OUTSIDE RECORDS SUMMARY | 2024-02-15 04:18 | XMS_ITS | Referral Summary ---
Author Organization [facility] Address [address] [place] [address] Care Team Providers Care Cylinder Machine Operator Name Role Phone Louis Reyes MD Primary Care Provider [phone] Clinic, Not Listed Unavailable Unavailable Allergies Active [...] Advance Directives For more information, please contact: [phone] * Full Code (Latest Code Status on File) Date Activated Date Inactivated Comments 02/02/2022 9:21 AM 02/03/2022 1:53 AM Question Answer Comments How was code status determined? Patient Care Teams Cylinder Machine Operator Relationship Specialty Start Date End Date Louis Reyes MD [address] [place] [address] PCP - General 01/30/22 Clinic, Not Listed PCP - Primary Care Clinic 01/30/22
--- OUTSIDE RECORDS SUMMARY | 2024-02-15 04:18 | XMS_ITS | Clinical Summary ---
Author Organization [facility] Address [address] [place] [address] Care Team Providers Care Thread Pulling Machine Attendant Name Role Phone Louis Reyes MD Primary Care Provider [phone] Clinic, Not Listed Unavailable Unavailable Allergies Active [...] Advance Directives For more information, please contact: [phone] * Full Code (Latest Code Status on File) Date Activated Date Inactivated Comments 02/02/2022 9:21 AM 02/03/2022 1:53 AM Question Answer Comments How was code status determined? Patient Care Teams Thread Pulling Machine Attendant Relationship Specialty Start Date End Date Louis Reyes MD [address] [place] [address] PCP - General 01/30/22 Clinic, Not Listed PCP - Primary Care Clinic 01/30/22
--- OUTSIDE RECORDS SUMMARY | 2024-02-15 04:18 | XMS_ITS | Encounter Summary ---
Author Organization [facility] Address [address] [place] [address] Phone Care Team Providers Care Line Producer Name Role Phone Fabian Arias MD Primary Care Provider Encounter Details Date Type Department Care Team (Late st Contact Info) Description 08/05/2020 Orders Only [facility] [address] [place] [address] Social History Tobacco Use Types [...] on filedocumented in this encounter Care Teams Line Producer Relationship Specialty Start Date End Date Fabian Arias MD [address] [place] [address] PCP - General Family Medicine 09/04/20 documented as of this encounter
== END 2024-02-14 10:30 | disposition home or self-care (01) ==
LOC: AMB 02-15 04:14
PROVIDERS: PCP Family Medicine; Visit Provider Emergency Medicine Emergency Medical Services
DX: R41.82 Altered mental status, unspecified (principal); R53.1 Weakness; K92.1 Melena
CPT/HCPCS: A0425; A0427

== ENCOUNTER 2024-02-14 11:05 | Emergency (ER) | payer MEDICARE, SELFPAY ==
[2024-02-14] VITALS (44 sets, daily range): BP systolic 177–213; BP diastolic 83–120; PULSE 60–117; RESP 16; TEMP 36.1; O2SAT 81–95
--- NOTE | 2024-02-14 11:27 | CRLHL7_ITS ---
For Patients: As a result of the Century Cures Act, medical imaging exams and procedure reports are released immediately into your electronic medical record. You may view this report before your referring provider. If you have questions, please contact your health care provider. INDICATION: ALTERED MENTAL STATUS TECHNIQUE: CT of the head was performed without IV contrast. COMPARISON: 09/14/2023. FINDINGS: Parenchyma: No acute hemorrhage, infarction, or mass. Moderate confluent periventricular white matter hypoattenuation is nonspecific and is favored to represent chronic small vessel ischemic disease. Ventricles and extra-axial spaces: Appropriate for age. Visualized paranasal sinuses: Clear. Mastoid air cells: Clear. Bones: No focal abnormality. Additional comment: None. IMPRESSION: No acute intracranial abnormality. Please note that all CT scans at this facility use dose modulation, iterative reconstruction, and/or weight-based dosing when appropriate to reduce radiation dose to as low as reasonably achievable. Dictated by Vicente Toney MD @ 02/14/2024 12:57:07 PM (Electronically Signed)
--- NOTE | 2024-02-14 11:27 | ED_ITS ---
HPI - General Adult General Date Seen: 02/14/24 Chief complaint: Weakness Stated complaint: altered /hypertensive Time Seen by Provider: 02/14/24 11:09 Source: EMS and other (Dialysis provider) Mode of arrival: EMS Limitations: altered mental status History of Present Illness HPI narrative: Patient is an 83-year-old female presenting to the emergency department for altered mental status. She is brought in by EMS from her dialysis appointment. EMS states she was having altered mental status and hypertension. She also and a blood sugar of 72. EMS states she has been confused the entire time they have been to with her. Patient is unable answer my questions appropriately. I spoke to the provider for her dialysis and he states that when she 1st arrived staff thought she seemed a little bit off so they called him to come and evaluate her. He spoke to her and she states she seemed a little bit confused at 1st. He does state she told him that she has been feeling sick and having diarrhea for the past weak along with intermittent blood in her stool. This is why she missed her last 2 appointments for dialysis. She was also hypertensive for them. While she was going through dialysis she continue to get more and more confused to the point where she could not even stand up on her own and had no idea where she was. She was able to finish dialysis. At that point they called EMS to bring her to the emergency department for evaluation. Related Data Home Medications ?Medication ?Instructions ?Recorded ?Confirmed vit B,C-folic ac 800 mcg-zinc 12.5 1 tab PO QPM 11/06/22 02/14/24 mg-selen-D3 2,000 unit-vit E tablet (RenaPlex-D) calcium acetate 667 mg tablet 667 mg PO TID 04/30/23 02/14/24 Previous Rx's ?Medication ?Instructions ?Recorded ferrous gluconate 324 mg (37.5 mg 648 mg (2 x 324 mg (37.5 mg iron)) 01/07/24 iron) tablet PO QDAY #180 tabs furosemide 80 mg tablet 80 mg PO DAILY #90 tabs 01/07/24 lisinopril 20 mg tablet 40 mg (2 x 20 mg) PO DAILY #180 01/07/24 tabs metoprolol succinate 50 mg 75 mg (1.5 x 50 mg) PO QDAY #135 01/07/24 tablet,extended release 24 hr tabs pantoprazole 40 mg tablet,delayed 40 mg PO BID #180 tabs 01/07/24 release Allergies Allergy/AdvReac Type Severity Reaction Status Date / Time iron Allergy Intermediate Itchy Verified 01/07/24 07:41 Review of Systems Status of ROS: Reports: unobtainable due to mental status PFSH PFS Medical History Frequent headaches ?R51.9 - Headache, unspecified (ICD-10) Surgical History History of tubal ligation ?Z98.51 - Tubal ligation status (ICD-10) History of total abdominal hysterectomy and bilateral salpingo-oophorectomy ?Z90.710 - Acquired absence of both cervix and uterus (ICD-10) ?Z90.722 - Acquired absence of ovaries, bilateral (ICD-10) ?Z90.79 - Acquired absence of other genital organ(s) (ICD-10) Social History Narrative: SOCIAL HISTORY: Single. Moved from [place]. Living with her son and [id number] in [place]. 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 HABITS: non-smoker. No alcohol. What is your current living situation?: declined to answer Problems where you live: declined to answer In the past 12 months, utilities in danger of being shut off: declined to answer In past 12 months, lack of transportation kept you from medical appts, meetings, work, or getting things needed for daily living: declined to answer In the past 12 mos, have been you worried that your food would run out before you had money to buy more?: declined to answer In the past 12 mos, the food you bought just didn't last and you didn't have money to buy more?: declined to answer Smoking Status: Current some day smoker What tobacco products do you use: cigarettes Second hand tobacco smoke exposure: No How often do you have a drink containing alcohol: never AUDIT-C Alcohol total score: 0 Non-prescribed substance use: denies use How often does anyone, including family, friends and others, physically hurt you : decline to answer How often does anyone, including family, friends and others, insult or talk down to you: decline to answer How often does anyone, including family, friends and others, threaten you with harm: decline to answer How often does anyone, including family, friends and others, scream or curse at you: decline to answer Little interest or pleasure in doing things: not at all Feeling down, depressed, or hopeless: not at all service: No Exam Narrative: Exam Narrative: Const: Well-nourished, Well-developed, confuse Eyes: PERRL, no conjunctival injection, and symmetrical lids HENT: Atraumatic external nose and ears. Moist mucous membranes. Neck: Symmetric, trachea midline, No thyromegaly. CVS: RRR, No murmurs or gallops. Peripheral pulses 2+ and equal in all extremities RESP: Unlabored respiratory effort. Clear to auscultation bilaterally. GI: Nontender/Nondistended, No rebound or guarding. MSK:Extremities w/o deformity, Normal Active ROM Skin: Warm, Dry. No rashes or lesions. Neuro: Normal Muscle tone, No focal neurological deficits. Psych: Awake, Alert, but not oriented. Confuse Const: Vital Signs, click to edit/add: Vital Signs - 24 hr 02/14/24 11:10 02/14/24 11:11 02/14/24 11:12 Temperature 97.0 F L Pulse Rate 75 63 Pulse Rate [Pulse Oximeter] 78 Respiratory Rate 16 Blood Pressure 187/107 H Blood Pressure [Le ft Upper Arm] 187/107 H Pulse Oximetry 93 93 91 [facility] 02/14/24 11:15 02/14/24 11:32 02/14/24 11:34 Temperature Pulse Rate 71 117 H Pulse Rate [Pulse Oximeter] Respiratory Rate Blood Pressure 190/93 H Blood Pressure [Le ft Upper Arm] Pulse Oximetry 92 81 L Oxygen Delivery [facility] 02/14/24 11:50 02/14/24 12:30 02/14/24 12:32 Temperature Pulse Rate 60 65 Pulse Rate [Pulse Oximeter] Respiratory Rate Blood Pressure 183/97 H Blood Pressure [Le ft Upper Arm] Pulse Oximetry 81 L 93 94 Oxygen Delivery [facility] 02/14/24 12:45 02/14/24 13:00 02/14/24 13:02 Temperature Pulse Rate 71 74 78 Pulse Rate [Pulse Oximeter] Respiratory Rate Blood Pressure 177/113 H Blood Pressure [Le ft Upper Arm] Pulse Oximetry 93 95 95 Oxygen Delivery Me thod 02/14/24 13:03 02/14/24 13:15 02/14/24 13:30 Temperature Pulse Rate 85 79 73 Pulse Rate [Pulse Oximeter] Respiratory Rate Blood Pressure Blood Pressure [Le ft Upper Arm] Pulse Oximetry 91 92 90 Oxygen Delivery Me thod 02/14/24 13:32 02/14/24 13:45 02/14/24 14:00 Temperature Pulse Rate 73 72 80 Pulse Rate [Pulse Oximeter] Respiratory Rate Blood Pressure 181/85 H Blood Pressure [Le ft Upper Arm] Pulse Oximetry 90 90 Oxygen Delivery Me thod 02/14/24 14:02 02/14/24 14:15 02/14/24 14:30 Temperature Pulse Rate 83 76 72 Pulse Rate [Pulse Oximeter] Respiratory Rate Blood Pressure 191/91 H Blood Pressure [Le ft Upper Arm] Pulse Oximetry 89 90 90 Oxygen Delivery Me thod 02/14/24 14:32 02/14/24 14:45 02/14/24 15:00 Temperature Pulse Rate 74 76 71 Pulse Rate [Pulse Oximeter] Respiratory Rate Blood Pressure 179/83 H Blood Pressure [Le ft Upper Arm] Pulse Oximetry 90 91 91 Oxygen Delivery Me thod 02/14/24 15:02 02/14/24 15:15 02/14/24 15:19 Temperature Pulse Rate 71 81 87 Pulse Rate [Pulse Oximeter] Respiratory Rate Blood Pressure 202/96 H 200/105 H Blood Pressure [Le ft Upper Arm] Pulse Oximetry 92 91 Oxygen Delivery Me thod 02/14/24 15:20 02/14/24 15:30 02/14/24 15:32 Temperature Pulse Rate 85 83 82 Pulse Rate [Pulse Oximeter] Respiratory Rate Blood Pressure 211/120 H Blood Pressure [Le ft Upper Arm] Pulse Oximetry 90 88 89 Oxygen Delivery Me thod 02/14/24 15:45 02/14/24 15:53 02/14/24 16:00 Temperature Pulse Rate 78 79 74 Pulse Rate [Pulse Oximeter] Respiratory Rate Blood Pressure 197/99 H Blood Pressure [Le ft Upper Arm] Pulse Oximetry 90 88 93 Oxygen Delivery Me thod 02/14/24 16:04 02/14/24 16:05 02/14/24 17:11 Temperature Pulse Rate 86 80 74 Pulse Rate [Pulse Oximeter] Respiratory Rate Blood Pressure 185/103 H Blood Pressure [Le ft Upper Arm] Pulse Oximetry 87 L 90 Oxygen Delivery Me thod Course Vital Signs Vital signs: Initial Vital Signs Temperature 97.0 F L 02/14/24 11:10 Temperature Source Temporal Artery Scan 02/14/24 11:10 Pulse Rate 78 02/14/24 11:10 Respiratory Rate 16 02/14/24 11:10 Blood Pressure 187/107 H 02/14/24 11:10 Blood Pressure Mean 133 H 02/14/24 11:10 Blood Pressure Position High-Fowlers 02/14/24 11:10 Pulse Oximetry 93 02/14/24 11:10 Oxygen Delivery Method Room Air 02/14/24 11:10 Vital Signs Temperature 97.0 F L 02/14/24 11:10 Pulse Rate 78 02/14/24 11:10 Respiratory Rate 16 02/14/24 11:10 Blood Pressure 187/107 H 02/14/24 11:10 Pulse Oximetry 93 02/14/24 11:10 Oxygen Delivery Method Room Air 02/14/24 11:10 Temperature 97.0 F L 02/14/24 11:10 Pulse Rate 74 02/14/24 17:11 Respiratory Rate 16 02/14/24 11:10 Blood Pressure 185/103 H 02/14/24 16:04 Pulse Oximetry 90 02/14/24 17:11 Oxygen Delivery Method Room Air 02/14/24 11:10 Medications Administered Medications: Discontinued Medications Generic Name Dose Route Start Last Admin Trade Name Freq PRN Reason Stop Dose Admin Furosemide 80 mg 02/14/24 15:03 02/14/24 15:19 Furosemide 40 Mg Tablet PO 02/14/24 15:04 80 mg ONCE ONE Administration Lactated Ringer's 1,000 mls @ 500 mls/hr 02/14/24 12:20 02/14/24 13:24 Lactated Ringers 1000 Ml IV 02/14/24 14:19 0 mls/hr .Q2H ONE Infusion Lisinopril 40 mg 02/14/24 12:24 02/14/24 12:44 Lisinopril 20 Mg Tablet PO 02/14/24 12:25 40 mg ONCE ONE Administration Metoprolol Succinate 25 mg 02/14/24 15:15 02/14/24 15:19 Metoprolol Succinate (Xl) 25 Mg Tab PO 02/14/24 15:16 25 mg ONCE ONE Administration Metoprolol Succinate 50 mg 02/14/24 15:15 02/14/24 15:19 Metoprolol Succinate (Xl) 50 Mg Tab PO 02/14/24 15:16 50 mg ONCE ONE Administration Medical Decision Making MDM Narrative Medical decision making narrative: Patient is an 83-year-old female presenting to the emergency department for altered mental status. The cause of her altered mental status are varied. They include infection, dehydration, electrolyte abnormalities, intracranial issues. Will do a CBC, CMP, BNP, troponin, COVID/flu/RSV, lactate, urinalysis, CT scan of the head, EKG to start. Last time I saw this patient she had similar presentation but that time she was hypotensive instead of hypertensive. Fluids resolved her abnormalities but she was still transfer due to the GI bleed. When she was transferred her hemoglobin dropped more in and she required blood transfusions. Despite being hypertensive at this time I will try a small amount of fluids to see if that helps at all. Will start by giving 500 mL over an hour. CBC shows hemoglobin 9.3 which is actually up compared to previous hemoglobins. White blood cell count within normal limits. CMP shows no concerning findings. Her creatinine and is elevated but she is a dialysis patient and this was expected. Troponin is 0.0 for an EKG showed no concerning abnormalities. Her BNP came back at 339,000 in due to this the fluids were stopped shortly after they were started. Head CT reviewed by myself and the radiologist shows no concerning abnormalities. I did do a rectal exam that is positive for occult blood. COVID/flu/RSV is negative. While she does have occult blood the stool on my exam was brown. She is taking ferrous gluconate or the she is prescribed it and this could cause a false positive. Although she did tell staff during dialysis that she was having bright red stools on and off this week. Urinalysis shows no signs of UTI. I am unsure was causing her altered mental status but she is still clearly altered. I considered meningitis but her only symptom that consistent meningitis is altered mental status. So I believe a lumbar puncture would be unnecessarily invasive. Also consider doing a CT scan chest abdomen pelvis but I do not believe it will be very beneficial without contrast and I am hesitant to use contrast when I could worsen her kidney dysfunction and it is unlikely to be beneficial in my opinion. Chest x-ray shows it either pulmonary edema or atypical pneumonia but again she is having no fever and no elevated white count some hesitant to call this an pneumonia. Patient will be transferred though at this time. Dr. Maravilla of [facility] accepted the patient for transfer. There will be a delay for transfer. She continued to have hypertension and I tried her home lisinopril, Lasix, metoprolol without improvement in her hypertension. Her blood pressure would range from 180 systolic to 210 systolic. I did consider PRES causing her symptoms while waiting for transfer MRI was ordered. It shows no acute abnormalities. Lab Data Labs: Lab Results 02/14/24 02/14/24 02/14/24 Range/Units 11:34 11:43 12:35 WBC 5.97 (4.50-11.00) K/uL RBC 3.64 L (4.00-5.20) m/uL Hgb 9.3 L (12.0-16.0) gm/dL Hct 28.0 L (33.0-51.0) % MCV 77 L (80-100) fL MCH 26 (26-34) pg MCHC 33 (32-36) gm/dL RDW Coeff of Erlinda 18.3 H (11.5-15.5) % Plt Count 183 (140-440) K/uL Neut % (Auto) 79.8 H (42.0-72.0) % Lymph % (Auto) 11.7 L (20-44) % [place] % (Auto) 6.5 (0.0-11.0) % Eos % (Auto) 1.0 (0.0-7.0) % Baso % (Auto) 0.8 (0.0-3.0) % Neut # (Auto) 4.80 (1.7-7.0) K/uL Lymph # (Auto) 0.70 L (0.90-2.90) K/uL [place] # (Auto) 0.40 (0.00-0.90) K/UL Eos # (Auto) 0.06 (0.00-0.50) K/uL Baso # (Auto) 0.05 (0.00-0.30) K/uL Abs Immat Gran (auto) 0.01 (0.00-0.30) K/uL Imm/Tot Granulo (auto) 0.2 % VBG pH (7.32-7.43) VBG pCO2 (40-50) mmHG VBG pO2 (25-47) mmHG VBG HCO3 (21-28) mmol/L Sodium 137 (135-149) mmol/L Potassium 4.2 (3.6-5.1) mmol/L Chloride 100 (96-114) mmol/L Carbon Dioxide 29 (20-32) mmol/L Anion Gap 8 (7-15) mEq/L BUN 22 (7-30) mg/dL Creatinine 5.9 H (0.5-1.5) mg/dL Estimated Creat Clear 6.05 Estimated GFR 7 ml/min Glucose 125 H (60-115) mg/dL Lactate 1.0 (0.5-1.9) mmol/L Calcium 9.7 (8.4-10.6) mg/dL Total Bilirubin 0.9 (0.1-1.5) mg/dL AST 30 (12-35) U/L ALT 11 (4-35) U/L Alkaline Phosphatase 59 (40-150) U/L Troponin I 0.04 (0.01-0.04) ng/mL NT-Pro-B Natriuret Pep [id number] pg/mL Total Protein 6.6 (6.0-8.3) g/dL Albumin 4.0 (3.3-5.0) g/dL Urine Color (Yellow) Urine Appearance (Clear) Urine pH (5.0-8.5) Ur Specific [place] (1.000-1.030) Urine Protein (Negative) Urine Glucose (UA) (Negative) Urine Ketones (Negative) Urine Blood (Negative) Urine Nitrite (Negative) Urine Bilirubin (Negative) Urine Urobilinogen (0.2-1.0) Ur Leukocyte Esterase (Negative) Urine RBC (0-2) Urine WBC (0-5) Ur Squamous Epith Cells (None-Few) Urine Bacteria (None) Stool Occult Blood Positive A (Negative) SARS-CoV-2 (PCR) Negative SARS-CoV-2 (Negative) Influenza Type A (PCR) Negative PCR FLU A (Negative) Influenza Type B (PCR) Negative PCR FLU B (Negative) RSV (PCR) Negative PCR RSV (Negative) 08/16/24 08/16/24 Range/Units 13:10 14:39 WBC (4.50-11.00) K/uL RBC (4.00-5.20) m/uL Hgb (12.0-16.0) gm/dL Hct (33.0-51.0) % MCV (80-100) fL MCH (26-34) pg MCHC (32-36) gm/dL RDW Coeff of Erlinda (11.5-15.5) % Plt Count (140-440) K/uL Neut % (Auto) (42.0-72.0) % Lymph % (Auto) (20-44) % [place] % (Auto) (0.0-11.0) % Eos % (Auto) (0.0-7.0) % Baso % (Auto) (0.0-3.0) % Neut # (Auto) (1.7-7.0) K/uL Lymph # (Auto) (0.90-2.90) K/uL [place] # (Auto) (0.00-0.90) K/UL Eos # (Auto) (0.00-0.50) K/uL Baso # (Auto) (0.00-0.30) K/uL Abs Immat Gran (auto) (0.00-0.30) K/uL Imm/Tot Granulo (auto) % VBG pH 7.505 H (7.32-7.43) VBG pCO2 36 L (40-50) mmHG VBG pO2 < 30.1 (25-47) mmHG VBG HCO3 28 (21-28) mmol/L Sodium (135-149) mmol/L Potassium (3.6-5.1) mmol/L Chloride (96-114) mmol/L Carbon Dioxide (20-32) mmol/L Anion Gap (7-15) mEq/L BUN (7-30) mg/dL Creatinine (0.5-1.5) mg/dL Estimated Creat Clear Estimated GFR ml/min Glucose (60-115) mg/dL Lactate (0.5-1.9) mmol/L Calcium (8.4-10.6) mg/dL Total Bilirubin (0.1-1.5) mg/dL AST (12-35) U/L ALT (4-35) U/L Alkaline Phosphatase (40-150) U/L Troponin I (0.01-0.04) ng/mL NT-Pro-B Natriuret Pep pg/mL Total Protein (6.0-8.3) g/dL Albumin (3.3-5.0) g/dL Urine Color Yellow (Yellow) Urine Appearance Clear (Clear) Urine pH 8.5 (5.0-8.5) Ur Specific [place] 1.015 (1.000-1.030) Urine Protein 2+ A (Negative) Urine Glucose (UA) Negative (Negative) Urine Ketones Trace A (Negative) Urine Blood 1+ A (Negative) Urine Nitrite Negative (Negative) Urine Bilirubin Negative (Negative) Urine Urobilinogen 0.2 (0.2-1.0) Ur Leukocyte Esterase Negative (Negative) Urine RBC 0-2 (0-2) Urine WBC 2-5 (0-5) Ur Squamous Epith Cells Few (None-Few) Urine Bacteria Few A (None) Stool Occult Blood (Negative) SARS-CoV-2 (PCR) (Negative) Influenza Type A (PCR) (Negative) Influenza Type B (PCR) (Negative) RSV (PCR) (Negative) Imaging Data CT scan - head: Attestation: I have reviewed the pertinent imaging results. Radiologist's impression: No acute intracranial abnormality. Please note that all CT scans at this facility use dose modulation, iterative reconstruction, and/or weight-based dosing when appropriate to reduce radiation dose to as low as reasonably achievable. Dictated by Vicente Toney MD @ 02/14/2024 12:57:07 PM Chest x-ray: Attestation: I have reviewed the pertinent imaging results. Radiologist's impression: Interstitial prominence throughout the lungs, right greater than left, likely represents pulmonary edema or atypical infection. Trace right pleural effusion. Dictated by Milly Jeff MD @ 02/14/2024 2:19:47 PM MR Brain: Attestation: I have reviewed the pertinent imaging results. Radiologist's impression: 1. No evidence of acute intracranial abnormality. 2. 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 Dictated by Hannah Shea MD @ 02/14/2024 5:06:43 PM ECG Data Attestation: I personally reviewed and interpreted this ECG as follows: Prior ECG tracings: available for review Interpretation: Normal sinus rhythm with rate 71 beats per minute, left anterior fascicular block, normal axis, normal intervals, no ST or T-wave abnormalities. Her most recent EKG on file is abnormal compared to her previous baselines. This current EKG look sick previous baselines Discharge Plan Discharge Clinical Impression: Altered mental status Qualifiers: Altered mental status type: unspecified Qualified Code(s): R41.82 - Altered mental status, unspecified Patient Disposition: Xfer Other Condition: Stable Prescriptions: No Action calcium acetate 667 mg tablet 667 mg PO TID RenaPlex-D 800 mcg-12.5 mg -2,000 unit tablet 1 tab PO QPM ferrous gluconate 324 mg (37.5 mg iron) tablet 648 mg PO QDAY Qty: 180 3RF pantoprazole 40 mg tablet,delayed release (DR/EC) 40 mg PO BID Qty: 180 3RF metoprolol succinate 50 mg tablet extended release 24 hr 75 mg PO QDAY Qty: 135 3RF furosemide 80 mg tablet 80 mg PO DAILY Qty: 90 3RF lisinopril 20 mg tablet 40 mg PO DAILY Qty: 180 3RF Stand Alone Forms: [employer] Info Instructions
--- OUTSIDE RECORDS SUMMARY | 2024-02-14 11:34 | XMS_ITS | Encounter Summary ---
Author Organization [facility] Address [address] [place] [address] Care Team Providers Care Minister Assistant Name Role Phone Fabian Arias MD Primary Care Provider + [phone] Encounter Details Date Type Department Care Team (Late st Contact Info) Description 01/01/2024 Orders Only [facility] [place] [address] [place] [address] Landon Calvert MD [address] [place] [address] Social History Tobacco Use Types Packs/Day Years Used Date Smoking Tobacco: Smoker, Cur rent Status Unknown Cigarettes Started: 977 Sex and Gender Information Value Date Recorded Sex Assigned at Not on file Gender Identity Not on file Sexual Orientation Not on file documented as of this encounter Plan of Treatment Not on file documented as of this encounter Procedures Procedure Name Priority Date/Time Associated Diagnosis Comments HD KINETICS Routine 01/01/2024 POST CHEMISTRY Routine 01/01/2024 IMMUNO CHEMISTRY Routine 01/01/2024 HEMATOLOGY Routine 01/01/2024 CHEMISTRY Routine 01/01/2024 [facility] RES[facility] Routine 01/01/2024 documented in this encounter Results * [facility] Results (01/01/2024) PCR 35.72 [facility] spKt/V Gotch 1.95 [facility] ge Justin eNPCR 0.87 [facility] WSTDKT/V 2.6 [facility] eKt/V Gotch 1.65 [facility] nPCR_HD 1.00 [facility] eKdrt/V 1.65 [facility] spKt/V (Daugirdas II) 1.90 [facility] eKt/V (Tattersall) 1.63 [facility] 01/01/2024 01/01/2024 Celia Ordering Provider LAB BLOOD ORDERABLE S [facility] Contact Performing lab Unknown, [place] * HD KINETICS (01/01/2024) Pathologist [facility] % Urea Reduction 80 65 - 80 % [facility] 01/01/2024 01/02/2024 4:3 8 AM CDT Narrative [facility] - 01/02/2024 Unless otherwise specified, test(s) performed at: [facility], [address] [place] [address], [place] [address] BUSINESS PROCESS SPECIALIST: Vicente Flores M.D., Ph.D For any questions, please call customer service at FREQUENCY:MONTHLY Resulting Agency Comment Specimen source: Plasma Landon Calvert MD LAB BLOOD ORDERABLES [facility] See order comments or contact performing lab Unknown, [place] * (ABNORMAL) [facility] (01/01/2024) BUN 45(H) 6 - 19 mg/dL [facility] Creatinine 9.06(H) 0.60 - 1.30 mg/dL [facility] BUN/Creatinine Ratio 5.0(L) 10.0 - 20.0 [facility] Sodium 139 136 - 145 mEq/L [facility] Potassium 5.2(H) 3.5 - 5.1 mEq/L [facility] Chloride 103 96 - 108 mEq/L [facility] Bicarbonate (CO2) 22 20 - 31 mEq/L [facility] Calcium 9.6 8.7 - 10.4 mg/dL [facility] Comment: Please note change in reference range. Corrected Calcium 9.6 8.7 - 10.4 mg/dL [facility] Comment: Corrected Calcium is not equivalent to measured Ionized Calcium. Phosphorus 7.9(H) 2.6 - 4.5 mg/dL [facility] Calcium Phosphorus Product 76(H) 0 - 54 [facility] Calcium Phosporus Product, Cor 76(H) 0 - 54 [facility] Total Protein 6.3 6.0 - 8.5 g/dL [facility] Albumin 4.0 3.5 - 5.2 g/dL [facility] Globulin, Total 2.3 2.0 - 4.0 g/dL [facility] A/G Ratio 1.7 1.0 - 2.0 [facility] Iron 29(L) 30 - 160 mcg/dL [facility] UIBC 196 155 - 355 mcg/dL [facility] TIBC 225 185 - 515 mcg/dL [facility] Iron Saturation (TSat) 13(L) 20 - 55 % [facility] 01/01/2024 01/02/2024 6:1 6 AM CDT Narrative [facility] - 01/02/2024 Unless otherwise specified, test(s) performed at: [facility], [address] [place] [address], [place] [address] BUSINESS PROCESS SPECIALIST: Vicente Flores M.D., Ph.D For any questions, please call customer service at FREQUENCY:MONTHLY Resulting Agency Comment Specimen source: Serum Landon Calvert MD LAB BLOOD ORDERABLES [facility] See order comments or contact performing lab Unknown, [place] * (ABNORMAL) HEMATOLOGY (01/01/2024) WBC 5.27 4.80 - 10.80 1000/mcL [facility] RBC 4.49 4.20 - 5.40 mill/mcL [facility] Hematocrit 37.7 37.0 - 47.0 % [facility] MCV 84 80 - 100 fl [facility] MCH 26.0(L) 27.0 - 31.0 pg [facility] MCHC 30.9 30.0 - 36.0 g/dL [facility] RDW 19.2(H) 11.5 - 14.5 % [facility] Hemoglobin 11.7(L) 12.0 - 16.0 g/dL [facility] Hemoglobin x 3 35.1(L) 36.0 - 48.0 % [facility] Platelets 266 130 - 400 1000/mcL [facility] 01/01/2024 01/02/2024 5:4 4 AM CDT Narrative [facility] - 01/02/2024 Unless otherwise specified, test(s) performed at: [facility], [address] [place] [address], [place] [address] BUSINESS PROCESS SPECIALIST: Vicente Flores M.D., Ph.D For any questions, please call customer service at FREQUENCY:MONTHLY Resulting Agency Comment Specimen source: Blood Landon Calvert MD LAB BLOOD ORDERABLES Performing Organization Address City/[facility] de Phone Number [facility] See order comments or contact performing lab Unknown, [place] * IMMUNO CHEMISTRY (01/01/2024) Hep B Surface Ag Negative Negative [facility] 01/01/2024 01/02/2024 5:0 1 AM CDT Narrative [facility] - 01/02/2024 Unless otherwise specified, test(s) performed at: [facility], [address] [place] [address], [place] [address] BUSINESS PROCESS SPECIALIST: Vicente Flores M.D., Ph.D For any questions, please call customer service at FREQUENCY:MONTHLY Resulting Agency Comment Specimen source: Plasma Landon Calvert MD LAB BLOOD ORDERABLES [facility] [employer] [facility] See order comments or contact performing lab Unknown, [place] * POST CHEMISTRY (01/01/2024) BUN Post Dialysis 9 6 - 19 mg/dL [facility] 01/01/2024 01/02/2024 4:3 8 AM CDT Narrative [facility] - 01/02/2024 Unless otherwise specified, test(s) performed at: [facility], [address] [place] [address], [place] [address] BUSINESS PROCESS SPECIALIST: Vicente Flores M.D., Ph.D For any questions, please call customer service at FREQUENCY:MONTHLY Resulting Agency Comment Specimen source: Plasma Landon Calvert MD LAB BLOOD ORDERABLES [facility] See order comments or contact performing lab Unknown, [place] documented in this encounter Visit Diagnoses Not on filedocumented in this encounter Care Teams Minister Assistant Relationship Specialty Start Date End Date Fabian Arias MD [address] [place] [id number] PCP - General Family Medicine 09/04/20 documented as of this encounter
--- OUTSIDE RECORDS SUMMARY | 2024-02-14 11:34 | XMS_ITS | Clinical Summary ---
Author Organization [facility] Address [place], [place] [address] Care Team Providers Care Store Consultant Name Role Phone Louis Reyes MD Primary Care Provider [phone] Allergies Active Allergy Reactions Criticality Noted Date Comments Sodium Ferric Gluconat-Sucrose Itching 10/05 Iron Sucrose Rash 10/06/2023 Medications Medication Sig Dispensed Refills Start Date End Date Status metoprolol succinate (TOPROL XL) 25 mg Sustained-Release tablet Take 25 mg by mouth once daily. 07/18/2022 Active furosemide (LASIX) 80 mg tablet Take 80 mg by mouth every morning. Active lisinopriL (PRINIVIL; ZESTRIL) 20 mg tablet Take 40 mg by mouth once daily. Active calcium acetate,phosphat bind, (PHOS-LO) 667 mg tablet Take 2,001 mg by mouth three times daily with meals. Take 1 tablet (667 mg) with snacks. Active pantoprazole (PROTONIX) 40 mg delayed-release tabletIndications:Ramirez rointestinal hemorrhage with hematemesis Take 1 Tablet (40 mg) by mouth two times daily before meals. 60 Tablet 3 09/17/2023 Active ferrous gluconate 324 mg (37 mg iron) tabletIndications:Bloo d loss anemia Take 1 Tablet by mouth once daily with a meal. 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 Chronic HFrEF (heart failure with reduced ejection fraction) 02/26/2021 Anemia in chronic kidney disease 09/04/2020 Essential (primary) hypertension 09/04/2020 Secondary hyperparathyroidism of renal origin Tobacco use disorder 09/06/2016 Social History Tobacco Use Types Packs/Day Years Used Date Smoking Tobacco: Some Days Cigarettes Smokeless Tobacco: Never Tobacco Cessation:Ready to Q uit: No; Counseling Given: No Social Connections Answer Date Recorded Frequency of Communication with Friends and Fami ly 0 09/14/2023 Financial Resource Strain Answer Date R ecorded Difficulty of Paying Living Expenses 3 09/14/2023 Difficulty of Paying Living Expenses Not on file 09/14/2023 Food Insecurity Answer Date Recorded Worried About Running Out of Food in the Last Ye ar 1 09/14/2023 Transportation Needs Answer Date Record ed Lack of Transportation (Medical) 1 09/14/2023 Housing Stability Answer Date Recorded Unable to Pay for Housing in the Last Year 1 09/14/2023 Sex and Gender Information Value Date Recorded Sex Assigned at Not on file Gender Identity Not on file Sexual Orientation Not on file Obstetrics History Last Filed Vital Signs Vital Sign Reading Time Taken Comments Blood Pressure 124/65 11/01/2023 3:55 PM CDT Pulse 85 11/01/2023 3:55 PM CDT Temperature 36.7 ??C (98 ??F) 10/09/2023 11:35 AM CDT Respiratory Rate 16 10/09/2023 11:35 AM CDT Oxygen Saturation 100% 11/01/2023 3:55 PM CDT Inhaled Oxygen Concentration - - Weight 50.8 kg (112 lb) 11/01/2023 3:55 PM CDT Height 157.5 cm (5' 2) 10/04/2023 5:01 PM CDT Body Mass Index 20.49 10/04/2023 5:01 PM CDT Plan of Treatment Health Maintenance Due Date Last Done Comments Pneumococcal series for age 65+ (1 of 2 - PCV) 949 Tdap 1953 Depression screening for age 12+ 1954 BMI (ht and wt on same day) for age 18+ 1960 Tetanus booster 1962 Zoster (shingles) series for age 50+ (1 of 2) 12/27/18 93 DEXA/DXA scan for age 65+ 12/28/2007 Medicare Wellness for age 65+ 12/28/2007 COVID-19 vaccine series ( season) Influenza for age 65+ 03/01/2024 Advance Directives * Full Code (Latest Code Status on File) Date Activated Date Inactivated Comments 10/04/2023 9:24 PM 10/09/2023 5:58 PM Question Answer Comments Code Status Discussion: Other * Full Code Date Activated Date Inactivated Comments 09/14/2023 9:57 PM 09/17/2023 5:11 PM Question Answer Comments Code Status Discussion: Reviewed Preferences * Full Code Date Activated Date Inactivated Comments 08/18/2022 6:18 PM 08/22/2022 8:30 PM Question Answer Comments Code Status Discussion: Reviewed Preferences Care Teams Store Consultant Relationship Specialty Start Date End Date Louis Reyes MD [address] [place] [address] PCP - General Family Practice 05/18/21
--- OUTSIDE RECORDS SUMMARY | 2024-02-14 11:34 | XMS_ITS | Encounter Summary ---
Author Organization [facility] Address [address] [place] [address] Care Team Providers Care Recording Clerk Name Role Phone Fabian Arias MD Primary Care Provider + [phone] Encounter Details Date Type Department Care Team (Late st Contact Info) Description 01/29/2024 Orders Only [facility] [place] [address] [place] [address] Landon Calvert MD [address] [place] [address] Social History Tobacco Use Types [...] Procedure Name Priority Date/Time Associated Diagnosis Comments HEMATOLOGY Routine 01/29/2024 documented in this encounter Results * (ABNORMAL) HEMATOLOGY (01/29/2024) Hemoglobin 11.7(L) 12.0 - 16.0 g/dL [facility] Hemoglobin x 3 35.1(L) 36.0 - 48.0 % [facility] 01/29/2024 01/30/2024 4:5 8 AM CDT Narrative [facility] - 01/30/2024 Unless otherwise specified, test(s) performed at: [facility], [address] [facility], [place] [address] SENIOR CIVIL ENGINEER: Vicente Flores M.D., Ph.D For any questions, please call customer service at FREQUENCY:OTHER Resulting Agency Comment Specimen source: Blood Landon Calvert MD LAB BLOOD ORDERABLES [email or web address] See order comments or contact performing lab Unknown, [place] documented in this encounter Visit Diagnoses Not on filedocumented in this encounter Care Teams Recording Clerk Relationship Specialty Start Date End Date Fabian Arias MD [address] [place] [address] PCP - General Family Medicine 09/04/20 documented as of this encounter
--- OUTSIDE RECORDS SUMMARY | 2024-02-14 11:34 | XMS_ITS | Encounter Summary ---
Author Organization [facility] Address [address] [place] [address] Care Team Providers Care Barn Worker Name Role Phone Fabian Arias MD Primary Care Provider + [phone] Encounter Details Date Type Department Care Team (Late st Contact Info) Description 02/05/2024 Orders Only [facility] [place] [address] [place] [address] Landon Calvert MD [address] [place] [address] Social History Tobacco Use Types [...] Date/Time Associated Diagnosis Comments HD KINETICS Routine 02/05/2024 POST CHEMISTRY Routine 02/05/2024 IMMUNO CHEMISTRY Routine 02/05/2024 HEMATOLOGY Routine 02/05/2024 CHEMISTRY Routine 02/05/2024 CHEMISTRY Routine 02/05/2024 [facility] RES[facility] Routine 02/05/2024 documented in this encounter Results * [facility] Results (02/05/2024) Pathologist [facility] eKt/V (Tattersall) 1.51 [facility] eKt/V Gotch 1.[address] [facility] Center eKdrt/V 1.52 [facility] nPCR_HD 0.99 [facility] PCR 34.44 [facility] spKt/V Gotch 1.82 [facility] ge Evans spKt/V (Daugirdas II) 1.79 [facility] eNPCR 0.86 [facility] WSTDKT/V 2.6 [facility] 02/05/2024 02/05/2024 Ordering Provider LAB BLOOD ORDERABLE S [facility] Contact Performing lab Unknown, [place] * HD KINETICS (02/05/2024) Pathologist [facility] % Urea Reduction 79 65 - 80 % [facility] 02/05/2024 02/07/2024 4:3 6 AM CDT Narrative [facility] - 02/07/2024 Unless otherwise specified, test(s) performed at: [facility], [address] [place] [address], [place] [address] MINING MANAGER: Vicente Flores M.D., Ph.D For any questions, please call customer service at FREQUENCY:MONTHLY Resulting Agency Comment Specimen source: Plasma Landon Calvert MD LAB BLOOD ORDERABLES [facility] See order comments or contact performing lab Unknown, [place] * (ABNORMAL) [facility] Chemistry (02/05/2024) Pathologist [facility] BUN 47(H) 6 - 19 mg/dL [facility] Creatinine 9.20(H) 0.60 - 1.30 mg/dL [facility] BUN/Creatinine Ratio 5.1(L) 10.0 - 20.0 [facility] Sodium 139 136 - 145 mEq/L [facility] Potassium 5.4(H) 3.5 - 5.1 mEq/L [facility] Chloride 106 96 - 108 mEq/L [facility] Bicarbonate (CO2) 22 20 - 31 mEq/L [facility] Calcium 9.9 8.7 - 10.4 mg/dL [facility] Comment: Please note change in reference range. Corrected Calcium 9.8 8.7 - 10.4 mg/dL [facility] Comment: Corrected Calcium is not equivalent to measured Ionized Calcium. Phosphorus 7.3(H) 2.6 - 4.5 mg/dL [facility] Calcium Phosphorus Product 72(H) 0 - 54 [facility] Calcium Phosporus Product, Cor 72(H) 0 - 54 [facility] Alkaline Phosphatase 52 35 - 104 U/L [facility] Total Protein 6.5 6.0 - 8.5 g/dL [facility] Albumin 4.1 3.5 - 5.2 g/dL [facility] Globulin, Total 2.4 2.0 - 4.0 g/dL [facility] A/G Ratio 1.7 1.0 - 2.0 [facility] Magnesium 2.1 1.6 - 2.6 mg/dL [facility] Ferritin 356(H) 10 - 291 ng/mL [facility] Iron 70 30 - 160 mcg/dL [facility] UIBC 144(L) 155 - 355 mcg/dL [facility] TIBC 214 185 - 515 mcg/dL [facility] Iron Saturation (TSat) 33 20 - 55 % [facility] 02/05/2024 02/07/2024 6:1 5 AM CDT Narrative [facility] Unless otherwise specified, test(s) performed at: [facility], [address] [place] [address], [place] [address] MINING MANAGER: Vicente Flores M.D., Ph.D For any questions, please call customer service at FREQUENCY:MONTHLY Resulting Agency Comment Specimen source: Serum Landon Calvert MD LAB BLOOD ORDERABLES [facility] See order comments or contact performing lab Unknown, [place] * IMMUNO CHEMISTRY (02/05/2024) Hep B Surface Ag Negative Negative [facility] 02/05/2024 02/07/2024 5:4 7 AM CDT Narrative Resulting Agency Comment Specimen source: Plasma Landon Calvert MD LAB BLOOD ORDERABLES Performing Organization Address [facility] de Phone Number [facility] See order comments or contact performing lab Unknown, [place] * (ABNORMAL) [facility] (02/05/2024) PTH 289(H) 16 - 80 pg/mL [facility] 02/05/2024 02/07/2024 5:4 7 AM CDT Narrative [facility] - 02/07/2024 Unless otherwise specified, test(s) performed at: [facility], [address] [place] [address], [place] [address] MINING MANAGER: Vicente Flores M.D., Ph.D For any questions, please call customer service at FREQUENCY:MONTHLY Resulting Agency Comment Specimen source: Plasma Landon Calvert MD LAB BLOOD ORDERABLES Performing Organization Address [facility] de Phone Number [facility] See order comments or contact performing lab Unknown, [place] * POST CHEMISTRY (02/05/2024) Pathologist [facility] BUN Post Dialysis 10 6 - 19 mg/dL [facility] 02/05/2024 02/07/2024 4:3 6 AM CDT Narrative [facility] - 02/07/2024 Unless otherwise specified, test(s) performed at: [facility], [address] [place] [address], [place] [address] MINING MANAGER: Vicente Flores M.D., Ph.D For any questions, please call customer service at FREQUENCY:MONTHLY Resulting Agency Comment Specimen source: Plasma Landon Calvert MD LAB BLOOD ORDERABLES Performing Organization Address [facility] de Phone Number [facility] See order comments or contact performing lab Unknown, [place] * (ABNORMAL) HEMATOLOGY (02/05/2024) Pathologist [facility] WBC 5.45 4.80 - 10.80 1000/mcL [facility] RBC 4.53 4.20 - 5.40 mill/mcL [facility] Hematocrit 38.9 37.0 - 47.0 % [facility] MCV 86 80 - 100 fl [facility] MCH 26.7(L) 27.0 - 31.0 pg [facility] MCHC 31.1 30.0 - 36.0 g/dL [facility] RDW 18.3(H) 11.5 - 14.5 % [facility] Hemoglobin 12.1 12.0 - 16.0 g/dL [facility] Hemoglobin x 3 36.3 36.0 - 48.0 % [facility] Platelets 252 130 - 400 1000/mcL [facility] 02/05/2024 02/07/2024 5:1 7 AM CDT Narrative [facility] - 02/07/2024 Unless otherwise specified, test(s) performed at: [facility], [address] [place] [address], [place] [address] MINING MANAGER: Vicente Flores M.D., Ph.D For any questions, please call customer service at FREQUENCY:MONTHLY Resulting Agency Comment Specimen source: Blood Landon Calvert MD LAB BLOOD ORDERABLES [facility] See order comments or contact performing lab Unknown, [place] documented in this encounter Visit Diagnoses Not on filedocumented in this encounter Care Teams Barn Worker Relationship Specialty Start Date End Date Fabian Arias MD [address] [place] [address] PCP - General Family Medicine 09/04/20 documented as of this encounter
--- OUTSIDE RECORDS SUMMARY | 2024-02-14 11:34 | XMS_ITS | Encounter Summary ---
Author Organization [facility] Address [address] [place] [address] Care Team Providers Care Clinical Tech Name Role Phone Fabian Arias MD Primary Care Provider + [phone] Encounter Details Date Type Department Care Team (Late st Contact Info) Description 01/20/2024 Treatment [facility] [address] [place] [address] Chata Garza, CONSULAR OFFICER-KERFER MACHINE OPERATOR [address] [place] [phone] Social History Tobacco Use Types Packs/Day Years Used Date Smoking Tobacco: Smoker, Cur rent Status Unknown Cigarettes Started: 977 Sex and Gender Information Value Date Recorded Sex Assigned at Not on file Gender Identity Not on file Sexual Orientation Not on file documented as of this encounter Miscellaneous Notes * Dialysis Note - Chata Garza APRN-KERFER MACHINE OPERATOR - 01/20/2024 8:26 AM CDT Date: Jan 20, 2024 Patient Name: Zamzam Garibay : 1940 Chart #: [id number] Sex: F This patient was personally seen for a complete visit as part of routine monthly dialysis care. A review of the dialysis treatment, blood pressure, estimated dry weight and recent lab values was made. These were discussed with the patient and staff as necessary. Treatment Data for 01/20/2024 started at:6:17 AM Dialyzer: 160NRe Optiflux Na: 137 mEq/L Bicarb: 27 mEq/L Dialysate: 2.0 K, 2.5 Ca, 1.0 Mg, 100 Dextrose (G2251) Dialysate/Machine Temp (prescribed): 37 C Dialysate/Machine Temp (actual): 37.1 C BFR (prescribed): 350 BFR (actual): 350 Prescribed time: 03:30 EDW: 51.5 kg Access Type: Active (In Use):AVGraft-Unknown/Right Upper Arm Pre Dialysis Vitals (for 01/20/2024 6:10 AM ) Pre BP (sit): 180/83 Pre Wt: 53.8 kg Temp: 97.5 F Post Dialysis Vitals (for 01/17/2024 9:53 AM ) Post BP (sit): 179/87 Post Wt: 51.7 kg Current Dialysis Vitals (for 01/20/2024 8:04 AM ) BP (sit): 162/88 AP(-) / REAL ESTATE SPECIALIST: 209/205 Pulse: 74 Chairside data as of 01/20/2024 8:04 AM Last 3 Treatments 01/17/2024 01/15/2024 (Absent) 01/13/2024 EDW (kg) 51.5 51.5 Weight Pre (kg) 53.8 53.6 Weight Post (kg) 51.7 51.6 Dialytic Weight Loss (kg) -2.1 -2 EDW Deviation (kg) 0.2 0.1 BP Sit Pre 201/99 184/85 BP Sit Post 179/87 163/77 UF Rate (mL/kg/hr) 13 11 Prescribed BFR 350 350 Average Delivered BFR 350 340 Prescribed Treatment Time 03:30 03:30 Actual Treatment Time 03:14 03:34 Last 3 Values 12/30/2023 12/02/2023 11/01/2023 Access Flow [id number] Treatment Medication Orders Medication Sig Start Date End Date Cinacalcet (Sensipar) 30 mg ORAL 3X Week Post Dialysis,with snack 04/12/2023 04/10/2024 Sodium Ferric Gluconate (Ferrlecit) 62.5 mg IVP Every Treatment During Dialysis 10/04/2023 10/02/2024 Vitamin D (Calcitriol) Oral 0.5 mcg ORAL 3X Week 05/08/2023 05/06/2024 SALES REPRESENTATIVE GIRLS' APPAREL: Landon Calvert MD LOCATION: [phone] SCHEDULE: -W- 1st Shift EDW: kg. DIALYZER: HD DURATION: NEEDLE SIZE: ANTICOAG: BATH: QB: ml/min QD: ml/min Subjective Tolerating dialysis well. 12/25/23: She feels excellent. Overall BP's have been ok, often high at start but normalize over treatment and not getting 190's and 200's like before. Hgb is in 9's. She has black stools but is on oral iron. There is ongoing concern for bleeding, however, so GI f/u is in place and pill cam. She does not feel like she did before when she was bleeding, energy levels improved and no SOB. Advanced Practitioner Subjective POLICE DETENTION ATTENDANT 01/20/2024: Patient seen while on dialysis. Reports that she feels good. Continues to have dark stools but no other symptoms of bleeding. Hgb has been stable around 11-12. She states that she has afollow-up appt with her primary this week but will have to reschedule. She wants someone to go withher. Overall dialysis has been going well. Denies SOB, chest pain, cramping or dizziness. Leaving close to EDW. BP elevated. AVG functional; no reported issues. Continue plan of care. POLICE DETENTION ATTENDANT 12/04/2023: Spoke with patient on dialysis. Continues to have black stools on occasion. She has GIappointment scheduled in December. Encouraged her to connect with PCP for follow-up. She is planning tocall today. Started on Ferrlecit and on max Mircera. Tolerating dialysis. BP improved. She has beengetting to EDW. AVG has been working well. No changes today. Continue same plan. Review of Systems None reported. 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 Cardiovascular - Regular rate. Regular rhythm. Edema - No leg edema. Access - AVG with good t/b Medication List Medication Sig Start Date calcium acetate(phosphat bind) 667 mg capsule TAKE 3 CAPSULES BY MOUTH THREE TIMES DAILY WITH MEALSAND 1 CAPSULE WITH A SNACK ferrous gluconate 324 mg (38 mg iron) tablet Take 1 tablet by mouth once a day with meals furosemide 80 mg tablet TAKE 1 TABLET BY MOUTH DAILY lisinopril 20 mg tablet Take 2 tablet by mouth every evening 03/27/2023 metoprolol succinate 50 mg tablet extended release 24 hr Take 1 tablet by mouth every night as directed 11/11/2023 Protonix (pantoprazole) 40 mg tablet,delayed release (DR/EC) Take 1 tablet by mouth twice a day onehour before meals RenaPlex-D (vit b,l-iv-yrzj-selen-vit d3-e) 800 mcg-12.5 mg-2,000 unit tablet TAKE 1 TABLET BY MOUTH EVERY DAY WITH THE EVENING MEAL Allergy List Allergen Reaction Reaction Severity Onset Date Venofer Skin rash Medications reviewed and no changes were made. Treatment and Adequacy Assessment BUN mg/dL 80 (01/06/24) 45 (01/01/24) 41 (12/04/23) 64 (10/30/23) 91 (10/02/23) UREA NITROGEN (MG/DL) IN SER/PLAS - POST DIALYSIS mg/dL 16 (01/06/24) 9 (01/01/24) 6 (12/04/23) 12 (10/30/23) 16 (10/02/23) URR % 80 (01/06/24) 80 (01/01/24) 85 (12/04/23) 81 (10/30/23) 82 (10/02/23) spKt/V Gotch 2 (01/06/24) 1.95 (01/01/24) 2.31 (12/04/23) 2.04 (10/30/23) 2.1 (10/02/23) eKdrt/V 1.69 (01/06/24) 1.65 (01/01/24) 1.95 (12/04/23) 1.73 (10/30/23) 1.78 (10/02/23) spKt/V (Daugirdas II) 1.9700 (01/06/24) 1.9000 (01/01/24) 2.2600 (12/04/23) 2.0000 (10/30/23) 2.0600 (10/02/23) Dialysis is adequate. Achieves prescribed time - Yes Achieves prescribed frequency - Yes Continue current prescription. Vascular Access Assessment Type of access: GraftLUE AVG upper arm 09/2022: Branches ligated at [facility] 08/2022: had branch ligation completed, access now working well 08/17/22: She is scheduled soon for branch ligation 08/01/22: Send for fistulagram (suspect re-stenosis) and send for branch ligation at [facility] 07/08/22: vein branch, stenosis with angioplasty 07/04/21: AVG working with two 16g needles today. If runs well this week and next, then will remove PCAD AVG not ready to use, fistulagram 06/07/22, hopefully ready to use in the next couple of weeks New access surgery planned in December 2021 12/06/21: Attempted using AVF with one 17g needle, infiltrated, now pulling clots. Does not seem usable to me based on this and how it feels. 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 Will need new access placement. She is being set up forvein mapping and surgeon consult Anemia Assessment HEMOGLOBIN (G/DL) IN BLOOD g/dL 12.8 (01/17/24) 12.9 (01/08/24) 11.7 (01/01/24) 10.6 (12/25/23) 9.4 (12/18/23) PLATELETS 1000/mcL 266 (01/01/24) 440 (12/04/23) 303 (10/30/23) 453 (10/02/23) 388 (09/04/23) FERRITIN ng/mL 62 (10/30/23) 28 (08/07/23) 23 (05/01/23) 28 (04/05/23) TRANSFERRIN SAT% % 13 (01/01/24) 12 (12/04/23) 11 (10/30/23) 6 (10/02/23) 11 (09/04/23) Hemoglobin is below goal. Iron Saturation is below goal. Ferritin is below goal. Will adjust CARIE and intravenous iron per protocol. Venofer allergy. Receives Ferrlicit when IV iron necessary. On oral iron and tolerating. Hgb improving Nutritional and Metabolic Assessment ALBUMIN (G/DL) g/dL 4.0 (01/01/24) 4.0 (12/04/23) 3.7 (10/30/23) 3.9 (10/02/23) 4.1 (09/04/23) Sodium mEq/L 139 (01/01/24) 136 (12/04/23) 137 (10/30/23) 138 (10/02/23) 136 (09/04/23) POTASSIUM (MMOL/L) IN SER/PLAS mEq/L 5.2 (01/01/24) 5.2 (12/04/23) 4.8 (11/20/23) 6.0 (10/30/23) 5.6 (10/02/23) BICARBONATE (CO2) mEq/L 22 (01/01/24) 26 (12/04/23) 23 (10/30/23) 24 (10/02/23) 19 (09/04/23) Albumin is at goal. Encourage high-biological value protein intake. Potassium is at goal. Encourage low potassium diet. Bicarbonate is at goal. Continue same bicarbonate in dialysate. Bone and Mineral Metabolism Assessment CALCIUM mg/dL 9.6 (01/01/24) 9.6 (12/04/23) 8.5 (10/30/23) 8.8 (10/02/23) 9.6 (09/04/23) CALCIUM (MG/DL) CORRECTED FOR ALBUMIN IN SER/PLAS mg/dL 9.6 (01/01/24) 9.6 (12/04/23) 8.7 (10/30/23) 8.9 (10/02/23) 9.5 (09/04/23) PHOSPHATE (MG/DL) IN SER/PLAS mg/dL 7.9 (01/01/24) 6.8 (12/25/23) 5.7 (12/23/23) 7.0 (12/04/23) 5.8 (11/20/23) CALCIUM PHOSPHORUS PRODUCT, COR 76 (01/01/24) 67 (12/04/23) 76 (10/30/23) 85 (10/02/23) 79 (09/04/23) IPTH pg/mL 639 (10/30/23) 454 (08/07/23) 327 (06/05/23) 426 (05/01/23) 126 (04/05/23) Corrected Calcium is at goal. Phosphorous is above goal. Intact PTH is at goal. Kiln Worker will adjust binders and vitamin D per protocol and continue to provide dietary education. Cardiovascular Assessment Blood pressures reviewed and are acceptable. Intradialytic weight gains are appropriate. Estimated dry weight is appropriate. Continue same cardiovascular medications. Increased Toprol XL to 50mg previously, BP's improved. Monitor for now Transplant Status: Patient is not a candidate. age and co-morbidities Resuscitation Status Stable dialysis, no change to prescription BP still fluctuates high Hgb stable around 11-12. CHATA GARZA NP [ Signed And locked electronically On 01/20/2024 at 08:32:54 AM ] Transcribed: CHATA GARZA ( 01/20/2024 ) documented in this encounter Plan of Treatment Not on file documented as of this encounter Visit Diagnoses Not on filedocumented in this encounter Care Teams Clinical Tech Relationship Specialty Start Date End Date Fabian Arias MD [address] [place] [address] PCP - General Family Medicine 09/04/20 documented as of this encounter
--- OUTSIDE RECORDS SUMMARY | 2024-02-14 11:34 | XMS_ITS | Encounter Summary ---
Author Organization [facility] Address [address] [place] [address] Care Team Providers Care Gravel Wheeler Name Role Phone Fabian Arias MD Primary Care Provider + [phone] Encounter Details Date Type Department Care Team (Late st Contact Info) Description 01/08/2024 Orders Only [facility] [address] [place] [address] Landon Calvert MD [address] [place] [address] Social History Tobacco Use Types [...] Priority Date/Time Associated Diagnosis Comments HEMATOLOGY Routine 01/08/2024 documented in this encounter Results * HEMATOLOGY (01/08/2024) Hemoglobin 12.9 12.0 - 16.0 g/dL [facility] Hemoglobin x 3 38.7 36.0 - 48.0 % [facility] 01/08/2024 01/09/2024 5:5 1 PM CDT Narrative [facility] - 01/09/2024 Unless otherwise specified, test(s) performed at: [facility], [address] [facility], [place] [address] DRUM WORKER: Vicente Flores M.D., Ph.D For any questions, please call customer service at FREQUENCY:OTHER Resulting Agency Comment Specimen source: Blood Landon Calvert MD LAB BLOOD ORDERABLES [facility] See order comments or contact performing lab Unknown, [place] documented in this encounter Visit Diagnoses Not on filedocumented in this encounter Care Teams Gravel Wheeler Relationship Specialty Start Date End Date Fabian Arias MD [address] [place] [address] PCP - General Family Medicine 09/04/20 documented as of this encounter
--- OUTSIDE RECORDS SUMMARY | 2024-02-14 11:34 | XMS_ITS | Encounter Summary ---
Author Organization [facility] Address [address] [place] [address] Care Team Providers Care Hot Mix Operator Name Role Phone Fabian Arias MD Primary Care Provider + [phone] Encounter Details Date Type Department Care Team (Late st Contact Info) Description 01/17/2024 Orders Only [facility] [place] [address] [place] [address] Landon Calvert MD [address] [place] [address] Social History Tobacco Use Types [...] Priority Date/Time Associated Diagnosis Comments HEMATOLOGY Routine 01/17/2024 documented in this encounter Results * HEMATOLOGY (01/17/2024) Hemoglobin 12.8 12.0 - 16.0 g/dL [facility] Hemoglobin x 3 38.4 36.0 - 48.0 % [facility] 01/17/2024 01/18/2024 7:1 3 AM CDT Narrative [facility] - 01/18/2024 Unless otherwise specified, test(s) performed at: [facility], [address] [facility], [place] [address] CLOTH BALE HEADER: Vicente Flores M.D., Ph.D For any questions, please call customer service at FREQUENCY:OTHER Resulting Agency Comment Specimen source: Blood Landon Calvert MD LAB BLOOD ORDERABLES [facility] See order comments or contact performing lab Unknown, [place] documented in this encounter Visit Diagnoses Not on filedocumented in this encounter Care Teams Hot Mix Operator Relationship Specialty Start Date End Date Fabian Arias MD [address] [place] [address] PCP - General Family Medicine 09/04/20 documented as of this encounter
--- OUTSIDE RECORDS SUMMARY | 2024-02-14 11:34 | XMS_ITS | Encounter Summary ---
Author Organization [facility] Address [address] [place] [address] Care Team Providers Care Cafeteria Assistant Name Role Phone Fabian Arias MD Primary Care Provider + [phone] Encounter Details Date Type Department Care Team (Late st Contact Info) Description 02/14/2024 Treatment [facility] [place] [address] [place] [address] Landon Calvert MD [address] [place] [address] Social History Tobacco Use Types Packs/Day Years Used Date Smoking Tobacco: Smoker, Cur rent Status Unknown Cigarettes Started: 977 Sex and Gender Information Value Date Recorded Sex Assigned at Not on file Gender Identity Not on file Sexual Orientation Not on file documented as of this encounter Miscellaneous Notes * Dialysis Note - Landon Calvert MD - 02/14/2024 9:49 AM CDT Date: Feb 14, 2024 Patient Name: Zamzam Garibay : 1940 Chart #: [id number] Sex: F This patient was personally seen for a complete visit as part of routine monthly dialysis care. A review of the dialysis treatment, blood pressure, estimated dry weight and recent lab values was made. These were discussed with the patient and staff as necessary. Treatment Data for 02/14/2024 started at:6:31 AM Dialyzer: Na: 137 mEq/L Bicarb: 27 mEq/L Dialysate: Dialysate/Machine Temp (prescribed): 37 C Dialysate/Machine Temp (actual): n/a BFR (prescribed): 350 BFR (actual): n/a Prescribed time: 03:30 EDW: 51.5 kg Access Type: Active (In Use):AVGraft-Unknown/Right Upper Arm Pre Dialysis Vitals (for 02/14/2024 6:11 AM ) Pre BP (sit): 212/111 Pre Wt: 50.9 kg Temp: 98.8 F Post Dialysis Vitals (for 02/07/2024 9:46 AM ) Post BP (sit): 172/85 Post Wt: 51.7 kg Current Dialysis Vitals (for 02/14/2024 9:31 AM ) BP (sit): 197/102 AP(-) / SHOE PACKER: n/a Pulse: 78 Chairside data as of 02/14/2024 9:31 AM Last 3 Treatments 02/12/2024 (Absent) 02/10/2024 (Absent) 02/07/2024 EDW (kg) 51.5 Weight Pre (kg) 52.8 Weight Post (kg) 51.7 Dialytic Weight Loss (kg) -1.1 EDW Deviation (kg) 0.2 BP Sit Pre 185/88 BP Sit Post 172/85 UF Rate (mL/kg/hr) 6 Prescribed BFR 350 Average Delivered BFR 350 Prescribed Treatment Time 03:30 Actual Treatment Time 03:30 Last 3 Values 01/31/2024 12/30/2023 12/02/2023 Access Flow [id number] Treatment Medication Orders Medication Sig Start Date End Date Cinacalcet (Sensipar) 30 mg ORAL 3X Week Post Dialysis,with snack 04/12/2023 04/10/2024 Heparin Sodium (Porcine) 1,000 Units/mL Systemic 2000 units IVP Every Treatment 01/31/2024 01/29/2025 Heparin Sodium (Porcine) 1,000 Units/mL Systemic 2000 units IVP Every Treatment 01/31/2024 01/29/2025 Sodium Ferric Gluconate (Ferrlecit) 62.5 mg IVP Every Treatment During Dialysis 10/04/2023 10/02/2024 Vitamin D (Calcitriol) Oral 0.5 mcg ORAL 3X Week 05/08/2023 05/06/2024 OSTOMY RN: Landon Calvert MD LOCATION: [place] [phone] SCHEDULE: -- 1st Shift EDW: kg. DIALYZER: HD DURATION: NEEDLE SIZE: ANTICOAG: BATH: QB: ml/min QD: ml/min Subjective Tolerating dialysis well. 02/14/24: Patient has not felt well all week. She started having diarrhea, intermittently has red blood around the stool. Actual stool is brown. Blood is not always present. Stools loose. No fever. Also feeling weak, no appetite, hasn't been eating well. BP elevated, higher than usual, but came in below dry weight today. Didn't take her meds today due to GI symptoms. We started treatment, she missed twice this week. BP improved some but is still elevated. Late in treatment notified she is confused. Plan to have her go to ER. Advanced Practitioner Subjective NBA PLAYER 01/20/2024: Patient seen while on dialysis. Reports [...] no reported issues. Continue plan of care. NBA PLAYER 12/04/2023: Spoke with patient on dialysis. Continues [...] a day onehour before meals RenaPlex-D (vit b,j-um-lblz-selen-vit d3-e) 800 mcg-12.5 mg-2,000 unit tablet TAKE 1 TABLET BY MOUTH EVERY DAY WITH THE EVENING MEAL Allergy List Allergen Reaction Reaction Severity Onset Date Venofer Skin rash Medications reviewed and no changes were made. Treatment and Adequacy Assessment BUN mg/dL 47 (02/05/24) 80 (01/06/24) 45 (01/01/24) 41 (12/04/23) 64 (10/30/23) UREA NITROGEN (MG/DL) IN SER/PLAS - POST DIALYSIS mg/dL 10 (02/05/24) 16 (01/06/24) 9 (01/01/24) 6 (12/04/23) 12 (10/30/23) URR % 79 (02/05/24) 80 (01/06/24) 80 (01/01/24) 85 (12/04/23) 81 (10/30/23) spKt/V Gotch 1.82 (02/05/24) 2 (01/06/24) 1.95 (01/01/24) 2.31 (12/04/23) 2.04 (10/30/23) eKdrt/V 1.52 (02/05/24) 1.69 (01/06/24) 1.65 (01/01/24) 1.95 (12/04/23) 1.73 (10/30/23) spKt/V (Daugirdas II) 1.7900 (02/05/24) 1.9700 (01/06/24) 1.9000 (01/01/24) 2.2600 (12/04/23) 2.0000 (10/30/23) Dialysis is adequate. Achieves prescribed time - Yes Achieves prescribed frequency - Yes Continue current prescription. Vascular Access Assessment Type of access: GraftLUE AVG upper arm 09/2022: Branches ligated at [facility] 08/2022: had branch ligation completed, access now working well 08/17/22: She is scheduled soon for branch ligation 08/01/22: Send for fistulagram (suspect re-stenosis) and send for branch ligation at [facility] 07/08/22: vein branch, stenosis with angioplasty 07/04/21: [...] how it feels. 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 Will need new access placement. She is being set up forvein mapping and surgeon consult Anemia Assessment HEMOGLOBIN (G/DL) IN BLOOD g/dL 12.1 (02/05/24) 11.7 (01/29/24) 13.1 (01/22/24) 12.8 (01/17/24) 12.9 (01/08/24) PLATELETS 1000/mcL 252 (02/05/24) 266 (01/01/24) 440 (12/04/23) 303 (10/30/23) 453 (10/02/23) FERRITIN ng/mL 356 (02/05/24) 62 (10/30/23) 28 (08/07/23) 23 (05/01/23) 28 (04/05/23) TRANSFERRIN SAT% % 33 (02/05/24) 13 (01/01/24) 12 (12/04/23) 11 (10/30/23) 6 (10/02/23) Hemoglobin is above goal. Iron Saturation is at goal. Ferritin is at goal. Will adjust CARIE and intravenous iron per protocol. Venofer allergy. Receives Ferrlicit when IV iron necessary. Stopped oral iron Re-check Hgb today done and pending Nutritional and Metabolic Assessment ALBUMIN (G/DL) g/dL 4.1 (02/05/24) 4.0 (01/01/24) 4.0 (12/04/23) 3.7 (10/30/23) 3.9 (10/02/23) Sodium mEq/L 139 (02/05/24) 139 (01/01/24) 136 (12/04/23) 137 (10/30/23) 138 (10/02/23) POTASSIUM (MMOL/L) IN SER/PLAS mEq/L 5.4 (02/05/24) 5.2 (01/01/24) 5.2 (12/04/23) 4.8 (11/20/23) 6.0 (10/30/23) BICARBONATE (CO2) mEq/L 22 (02/05/24) 22 (01/01/24) 26 (12/04/23) 23 (10/30/23) 24 (10/02/23) Albumin is at goal. Encourage high-biological value protein intake. Potassium is at goal. Encourage low potassium diet. Bicarbonate is at goal. Continue same bicarbonate in dialysate. Bone and Mineral Metabolism Assessment CALCIUM mg/dL 9.9 (02/05/24) 9.6 (01/01/24) 9.6 (12/04/23) 8.5 (10/30/23) 8.8 (10/02/23) CALCIUM (MG/DL) CORRECTED FOR ALBUMIN IN SER/PLAS mg/dL 9.8 (02/05/24) 9.6 (01/01/24) 9.6 (12/04/23) 8.7 (10/30/23) 8.9 (10/02/23) PHOSPHATE (MG/DL) IN SER/PLAS mg/dL 7.3 (02/05/24) 7.9 (01/01/24) 6.8 (12/25/23) 5.7 (12/23/23) 7.0 (12/04/23) CALCIUM PHOSPHORUS PRODUCT, COR 72 (02/05/24) 76 (01/01/24) 67 (12/04/23) 76 (10/30/23) 85 (10/02/23) IPTH pg/mL 289 (02/05/24) 639 (10/30/23) 454 (08/07/23) 327 (06/05/23) 426 (05/01/23) Corrected Calcium is at goal. Phosphorous is above goal. Intact PTH is at goal. Special Makeup Fx Artist Instructor will adjust binders and vitamin D per protocol and continue to provide dietary education. Cardiovascular Assessment Blood pressures reviewed and are not at goal, see below. Intradialytic weight gains are appropriate. Estimated dry weight is appropriate. Continue same cardiovascular medications. Increased Toprol XL to 50mg previously, BP's improved. Didn't take meds today, BP elevated Transplant Status: Patient is not a candidate. age and co-morbidities Resuscitation Status She has felt unwell, diarrhea, poor appetite, intermittent red blood in stool, now confused. Will send to ER Landon Calvert MD [ Signed And locked electronically On 02/14/2024 at 09:52:53 AM ] Transcribed: Landon Calvert ( 02/14/2024 ) documented in this encounter Plan of Treatment Not on file documented as of this encounter Visit Diagnoses Not on filedocumented in this encounter Care Teams Cafeteria Assistant Relationship Specialty Start Date End Date Fabian Arias MD [address] [place] [phone] PCP - General Family Medicine 09/04/20 documented as of this encounter
--- OUTSIDE RECORDS SUMMARY | 2024-02-14 11:34 | XMS_ITS | Encounter Summary ---
Author Organization [facility] Address [address] [place] [address] Care Team Providers Care Machine Heel Seat Laster Name Role Phone Fabian Arias MD Primary Care Provider + [phone] Encounter Details Date Type Department Care Team (Late st Contact Info) Description 01/22/2024 Orders Only [facility] [place] [address] [place] [address] Landon Calvert MD [address] [place] [address] Social History Tobacco Use Types [...] Priority Date/Time Associated Diagnosis Comments HEMATOLOGY Routine 01/22/2024 documented in this encounter Results * HEMATOLOGY (01/22/2024) Hemoglobin 13.1 12.0 - 16.0 g/dL [facility] Hemoglobin x 3 39.3 36.0 - 48.0 % [facility] 01/22/2024 01/23/2024 3:3 8 AM CDT Narrative [facility] - 01/23/2024 Unless otherwise specified, test(s) performed at: [facility], [address], [place] [address] WIND FIELD SERVICE MANAGER: Vicente Flores M.D., Ph.D For any questions, please call customer service at FREQUENCY:OTHER Resulting Agency Comment Specimen source: Blood Landon Calvert MD LAB BLOOD ORDERABLES [facility] See order comments or contact performing lab Unknown, [place] documented in this encounter Visit Diagnoses Not on filedocumented in this encounter Care Teams Machine Heel Seat Laster Relationship Specialty Start Date End Date Fabian Arias MD [address] [place] [address] PCP - General Family Medicine 09/04/20 documented as of this encounter
--- OUTSIDE RECORDS SUMMARY | 2024-02-14 11:34 | XMS_ITS | Encounter Summary ---
Author Organization [facility] Address [address] [place] [address] Care Team Providers Care Project Controls Scheduler Name Role Phone Fabian Arias MD Primary Care Provider + [phone] Encounter Details Date Type Department Care Team (Late st Contact Info) Description 01/29/2024 Treatment [facility] [place] [address] [place] [address] Landon Calvert MD [address] [facility] [place] [address] Social History Tobacco Use Types Packs/Day Years Used Date Smoking Tobacco: Smoker, Cur rent Status Unknown Cigarettes Started: 977 Sex and Gender Information Value Date Recorded Sex Assigned at Not on file Gender Identity Not on file Sexual Orientation Not on file documented as of this encounter Miscellaneous Notes * Dialysis Note - Landon Calvert MD - 01/29/2024 9:28 AM CDT Date: Jan 29, 2024 Patient Name: Zamzam Garibay : 1940 Chart #: [id number] Sex: F This patient was personally seen for a complete visit as part of routine monthly dialysis care. A review of the dialysis treatment, blood pressure, estimated dry weight and recent lab values was made. These were discussed with the patient and staff as necessary. Treatment Data for 01/29/2024 started at:7:09 AM Dialyzer: 160NRe Optiflux Na: 137 mEq/L Bicarb: 27 mEq/L Dialysate: 2.0 K, 2.5 Ca, 1.0 Mg, 100 Dextrose (G2251) Dialysate/Machine Temp (prescribed): 37 C Dialysate/Machine Temp (actual): 36.7 C BFR (prescribed): 350 BFR (actual): 350 Prescribed time: 03:30 EDW: 51.5 kg Access Type: Active (In Use):AVGraft-Unknown/Right Upper Arm Pre Dialysis Vitals (for 01/29/2024 6:51 AM ) Pre BP (sit): 195/100 Pre Wt: 54.2 kg Temp: 97.8 F Post Dialysis Vitals (for 01/27/2024 8:27 AM ) Post BP (sit): 172/82 Post Wt: 52.8 kg Current Dialysis Vitals (for 01/29/2024 9:04 AM ) BP (sit): 156/75 AP(-) / APPLIED ANTHROPOLOGIST: 217/263 Pulse: 57 Chairside data as of 01/29/2024 9:04 AM Last 3 Treatments 01/27/2024 01/24/2024 01/22/2024 EDW (kg) 51.5 51.5 51.5 Weight Pre (kg) 54.1 53 52.6 Weight Post (kg) 52.8 51.6 52 Dialytic Weight Loss (kg) -1.3 -1.4 -0.6 EDW Deviation (kg) 1.3 0.1 0.5 BP Sit Pre 172/87 167/80 182/88 BP Sit Post 172/82 137/68 186/93 UF Rate (mL/kg/hr) 12 10 3 Prescribed BFR 350 350 350 Average Delivered BFR 350 350 340 Prescribed Treatment Time 03:30 03:30 03:30 Actual Treatment Time 02:05 02:49 03:34 Last 3 Values 12/30/2023 12/02/2023 11/01/2023 Access Flow [id number] DIRECTOR OF DIGITAL TECHNOLOGY: Landon Calvert MD LOCATION: [phone] SCHEDULE: -- 1st Shift EDW: kg. DIALYZER: HD DURATION: NEEDLE SIZE: ANTICOAG: BATH: QB: ml/min QD: ml/min Subjective Tolerating dialysis well. 01/28: I feel the best I have felt in years. Hgb is up, Mircera held. With holding oral iron, stools no longer black. She has no concerns. Advanced Practitioner Subjective PLANT GENERAL MANAGER 01/20/2024: Patient seen while on dialysis. Reports [...] no reported issues. Continue plan of care. PLANT GENERAL MANAGER 12/04/2023: Spoke with patient on dialysis. Continues [...] effort Cardiovascular - Regular rate. Regular rhythm. 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 Will need new access placement. She is being set up forvein mapping and surgeon consult Anemia Assessment HEMOGLOBIN (G/DL) IN BLOOD g/dL 13.1 (01/22/24) 12.8 (01/17/24) 12.9 (01/08/24) 11.7 (01/01/24) 10.6 (12/25/23) PLATELETS 1000/mcL 266 (01/01/24) 440 (12/04/23) 303 (10/30/23) 453 (10/02/23) 388 (09/04/23) FERRITIN ng/mL 62 (10/30/23) 28 (08/07/23) 23 (05/01/23) 28 (04/05/23) TRANSFERRIN SAT% % 13 (01/01/24) 12 (12/04/23) 11 (10/30/23) 6 (10/02/23) 11 (09/04/23) Hemoglobin is above goal. Iron Saturation is below goal. Ferritin is below goal. Will adjust CARIE and intravenous iron per protocol. Venofer allergy. Receives Ferrlicit when IV iron necessary. Stopped oral iron Nutritional and Metabolic Assessment ALBUMIN (G/DL) g/dL [...] above goal. Intact PTH is at goal. Plate Worker Helper will adjust binders and vitamin D per [...] Status Stable dialysis, no change to prescription Holding Mircera with Hgb above goal Re-start heparin with treatments as stools brown and Hgb improved Landon Calvert MD [ Signed And locked electronically On 01/29/2024 at 09:31:35 AM ] Transcribed: Landon Calvert ( 01/29/2024 ) documented in this encounter Plan of Treatment Not on file documented as of this encounter Visit Diagnoses Not on filedocumented in this encounter Care Teams Project Controls Scheduler Relationship Specialty Start Date End Date Fabian Arias MD [address] [place] [id number] PCP - General Family Medicine 09/04/20 documented as of this encounter
--- OUTSIDE RECORDS SUMMARY | 2024-02-14 11:34 | XMS_ITS | Clinical Summary ---
Author Organization [facility] Address [address] [address] Care Team Providers Care Iap Displays Analyst Name Role Phone Fabian Arias MD Primary Care Provider + [phone] Allergies Active Allergy Reactions Criticality Noted Date Comments Carvedilol Other (see comments) 12/28/2019 Medications Medication Sig Dispensed Refills Start Date End Date Status furosemide (LASIX) 80 MG tablet Take 1 tablet by mouth 2 (two) times a day 09/01/2020 Active hydrALAZINE (APRESOLINE) 50 MG tablet Take 1 tablet by mouth 3 (three) times a day 06/16/2020 Active sodium bicarbonate 650 MG tablet Take 1 tablet by mouth 3 times a day 06/02/2020 Active Vitamin D, Cholecalciferol, 50 MCG (1999 [place]) capsule Take 1 tablet by mouth 1 (one) time each day Active Active Problems Problem Noted Date Diagnosed Date Stage 5 chronic kidney disease 09/04/2020 Essential (primary) hypertension 09/04/2020 Congestive heart failure 09/04/2020 Anemia in chronic kidney disease 09/04/2020 Secondary hyperparathyroidism of renal origin Encounters Date Type Department Care Team Description 02/14/2024 Treatment [facility] [place] [address] [place] [address] Landon Calvert MD 02/05/2024 Orders Only [facility] [place] [address] [place] [phone] Landon Calvert MD 01/29/2024 Orders Only [facility] [place] [address] [place] [address] Landon Calvert MD 01/29/2024 Treatment [facility] [address] [facility] [address] [place] [address] Landon Calvert MD 01/22/2024 Orders Only [facility] [address] [place] [address] Landon Calvert MD 01/20/2024 Treatment [facility] [address] [place] [address] Christa Garza APRN-EXPANDED DUTY DENTAL ASSISTANT 01/17/2024 Orders Only [facility] [address] [place] [address] Landon Calvert MD 01/08/2024 Orders Only [facility] [place] [address] [place] [address] Landon Calvert MD 01/06/2024 Orders Only [facility] [address] [place] [address] Landon Calvert MD 01/01/2024 Orders Only [facility] [address] [place] [address] Landon Calvert MD 12/25/2023 Orders Only [facility] [place] [address] [place] [address] Landon Calvert MD 12/25/2023 Treatment [facility] [address] [place] [address] Landon Calvert MD 12/23/2023 Orders Only [facility] [place] [address] [place] [address] Landon Calvert MD 12/18/2023 Orders Only [facility] [place] [address] [place], [place] [address] Landon Calvert MD 12/11/2023 Orders Only [facility] [place] [address] [place], [place] [address] Landon Calvert MD 12/04/2023 Orders Only [facility] [address] [place] [address] Landon Calvert MD 12/04/2023 Treatment [facility] [place] [address] [facility] [address] [place] [address] Christa Garza, REAL ESTATE CLOSER-EXPANDED DUTY DENTAL ASSISTANT 11/29/2023 Treatment [facility] [address] [facility] [address] [place] [address] Christa Garza, REAL ESTATE CLOSER-EXPANDED DUTY DENTAL ASSISTANT 11/27/2023 Orders Only [facility] [address] [place] [address] Landon Calvert MD 11/20/2023 Orders Only [facility] [place] [address] [place] [address] Landon Calvert MD from Last 3 Months [...] on file Sexual Orientation Not on file Last Filed Vital Signs Vital Sign Reading Time Taken Comments Blood Pressure 130/80 09/05/2020 1:08 PM ASP DEVELOPER Pulse 87 09/05/2020 1:08 PM ASP DEVELOPER Temperature 36.6 ??C (97.8 ??F) 06/02/2020 12:[address] Respiratory Rate - - Oxygen Saturation 98% 09/05/2020 1:08 PM ASP DEVELOPER Inhaled Oxygen Concentration - - Weight 48.5 kg (107 lb) 09/05/2020 1:08 PM ASP DEVELOPER Height 160 cm (5' 3) 09/05/2020 1:08 PM ASP DEVELOPER Body Mass Index 18.95 09/05/2020 1:08 PM ASP DEVELOPER Plan of Treatment Health Maintenance Due Date Last Done Comments Hepatitis B Vaccine (1 of 5 - Risk Dialysis 4-dose series) 1960 Pneumococcal Vaccine: 65+ Years (2 of 2 - PCV) 012 11/02/2010 Influenza Vaccine (#1) 2024 Procedures Procedure Name Priority Date/Time Associated Diagnosis Comments [facility] LAB RESULTS Routine 02/05/2024 HD KINETICS Routine 02/05/2024 CHEMISTRY Routine 02/05/2024 IMMUNO CHEMISTRY Routine 02/05/2024 CHEMISTRY Routine 02/05/2024 POST CHEMISTRY Routine 02/05/2024 HEMATOLOGY Routine 02/05/2024 HEMATOLOGY Routine 01/29/2024 HEMATOLOGY Routine 01/22/2024 HEMATOLOGY Routine 01/17/2024 HEMATOLOGY Routine 01/08/2024 [facility] LAB RESULTS Routine 01/06/2024 HD KINETICS Routine 01/06/2024 POST CHEMISTRY Routine 01/06/2024 CHEMISTRY Routine 01/06/2024 [facility] LAB RESULTS Routine 01/01/2024 HD KINETICS Routine 01/01/2024 CHEMISTRY Routine 01/01/2024 HEMATOLOGY Routine 01/01/2024 IMMUNO CHEMISTRY Routine 01/01/2024 POST CHEMISTRY Routine 01/01/2024 CHEMISTRY Routine 12/25/2023 HEMATOLOGY Routine 12/25/2023 CHEMISTRY Routine 12/23/2023 HEMATOLOGY Routine 12/18/2023 HEMATOLOGY Routine 12/11/2023 [facility]_ [facility] LAB RESULTS Routine 12/04/2023 IMMUNO CHEMISTRY Routine 12/04/2023 HEMATOLOGY Routine 12/04/2023 HD KINETICS Routine 12/04/2023 POST CHEMISTRY Routine 12/04/2023 CHEMISTRY Routine 12/04/2023 HEMATOLOGY Routine 11/27/2023 HEMATOLOGY Routine 11/20/2023 CHEMISTRY Routine 11/20/2023 from Last 3 Months Results * HD KINETICS (02/05/2024) Only the most recent of4 resultswithin the time period is included. % Urea Reduction 79 65 - 80 % [facility] 02/05/2024 02/07/2024 4:3 6 AM CDT Narrative [facility] - 02/07/2024 Unless otherwise specified, test(s) performed at: [facility], [address] [place] [address], [place] [address] SUPERVISOR COKE HANDLING: Vicente Flores M.D., Ph.D For any questions, please call customer service at FREQUENCY:MONTHLY Resulting Agency Comment Specimen source: Plasma Landon Calvert MD LAB BLOOD ORDERABLES Performing Organization Address [facility] de Phone Number [facility] See order comments or contact performing lab Unknown, [place] * POST CHEMISTRY (02/05/2024) Only the most recent of4 resultswithin the time period is included. BUN Post Dialysis 10 6 - 19 mg/dL [facility] 02/05/2024 02/07/2024 4:3 6 AM CDT Narrative [facility] - 02/07/2024 Unless otherwise specified, test(s) performed at: [facility], [address] [place] [address] SUPERVISOR COKE HANDLING: Vicente Flores M.D., Ph.D For any questions, please call customer service at FREQUENCY:MONTHLY Resulting Agency Comment Specimen source: Plasma Landon Calvert MD LAB BLOOD ORDERABLES Performing Organization Address [facility] de Phone Number [email or web address] See order comments or contact performing lab Unknown, [place] * IMMUNO CHEMISTRY (02/05/2024) Only the most recent of3 resultswithin the time period is included. Hep B Surface Ag Negative Negative [facility] 02/05/2024 02/07/2024 5:4 7 AM CDT Narrative Resulting Agency Comment Specimen source: Plasma Landon Calvert MD LAB BLOOD ORDERABLES Performing Organization Address [facility] Co de Phone Number [facility] See order comments or contact performing lab Unknown, [place] * (ABNORMAL) HEMATOLOGY (02/05/2024) Only the most recent of12 resultswithin the time period is included. WBC 5.45 4.80 - 10.80 1000/mcL [facility] [...] 02/05/2024 02/07/2024 5:1 7 AM CDT Narrative [facility] - 02/07/2024 Unless otherwise specified, test(s) performed at: [facility], [address] [place] [address], [place] [address] SUPERVISOR COKE HANDLING: Vicente Flores M.D., Ph.D For any questions, please call customer service at FREQUENCY:MONTHLY Resulting Agency Comment Specimen source: Blood Landon Calvert MD LAB BLOOD ORDERABLES [facility] See order comments or contact performing lab Unknown, [place] * (ABNORMAL) [facility] Chemistry (02/05/2024) Only the most recent of8 resultswithin the time period is included. BUN 47(H) 6 - 19 mg/dL [facility] [...] 02/05/2024 02/07/2024 6:1 5 AM CDT Narrative [facility] - 02/07/2024 Unless otherwise specified, test(s) performed at: [facility], [address] [place] [address], [place] [address] SUPERVISOR COKE HANDLING: Vicente Flores M.D., Ph.D For any questions, please call customer service at FREQUENCY:MONTHLY Resulting Agency Comment Specimen source: Serum Landon Calvert MD LAB BLOOD ORDERABLES [facility] See order comments or contact performing lab Unknown, [place] * [facility] Lab Results (02/05/2024) Only the most recent of4 resultswithin the time period is included. eKt/V (Tattersall) 1.51 [facility] eKt/V Gotch 1.52 [facility] e Center eKdrt/V 1.52 [facility] nPCR_HD 0.99 [facility] PCR 34.44 [facility] spKt/V Gotch 1.82 [facility] [place] spKt/V (Daugirdas II) 1.79 [facility] eNPCR 0.86 [facility] WSTDKT/V 2.6 [facility] 02/05/2024 02/05/2024 Loyd Ordering Provider LAB BLOOD ORDERABLE [facility] Contact Performing lab Unknown, [place] from Last 3 Months Care Teams Iap Displays Analyst Relationship Specialty Start Date End Date Fabian Arias MD [address] [place] [address] PCP - General Family Medicine 09/04/20
--- OUTSIDE RECORDS SUMMARY | 2024-02-14 11:34 | XMS_ITS | Encounter Summary ---
Author Organization [facility] Address [address] [place] [address] Care Team Providers Care Screen Roller Name Role Phone Fabian Arias MD Primary Care Provider + [phone] Encounter Details Date Type Department Care Team (Late st Contact Info) Description 01/06/2024 Orders Only [facility] [place] [address] [place] [address] Landon Calvert MD [address] [place] [address] Social History Tobacco Use Types [...] Date/Time Associated Diagnosis Comments HD KINETICS Routine 01/06/2024 POST CHEMISTRY Routine 01/06/2024 CHEMISTRY Routine 01/06/2024 [facility] RESULTS Routine 01/06/2024 documented in this encounter Results * [facility] Lab Results (01/06/2024) eKt/V Gotch 1.69 [facility] PCR 47.20 [facility] eKt/V (Tattersall) 1.69 [facility] spKt/V Gotch 2.00 [facility] WSTDKT/V 2.7 [facility] nPCR_HD 1.34 [facility] eNPCR 1.19 [facility] spKt/V (Daugirdas II) 1.97 [facility] eKdrt/V 1.69 [facility] 01/06/2024 01/06/2024 Celia Ordering Provider LAB BLOOD ORDERABLE S CELIA [facility] Contact Performing lab Unknown, [place] * HD KINETICS (01/06/2024) % Urea Reduction 80 65 - 80 % [facility] 01/06/2024 01/07/2024 10: 05 AM CDT Narrative Resulting Agency Comment Specimen source: Plasma Landon Calvert MD LAB BLOOD ORDERABLES Performing Organization Address [facility] Co de Phone Number [facility] See order comments or contact performing lab Unknown, [place] * POST CHEMISTRY (01/06/2024) BUN Post Dialysis 16 6 - 19 mg/dL [facility] 01/06/2024 01/07/2024 10: 05 AM CDT Narrative [facility] - 01/07/2024 Unless otherwise specified, test(s) performed at: [facility], [address] [place] [address], [place] [address] SANITARY CHEMIST: Vicente Flores M.D., Ph.D For any questions, please call customer service at FREQUENCY:OTHER Resulting Agency Comment Specimen source: Plasma Landon Calvert MD LAB BLOOD ORDERABLES Performing Organization Address [facility] Co de Phone Number [facility] See order comments or contact performing lab Unknown, [place] * (ABNORMAL) [facility] Chemistry (01/06/2024) BUN 80(H) 6 - 19 mg/dL [facility] 01/06/2024 01/07/2024 9:5 4 AM CDT Narrative [facility] - 01/07/2024 Unless otherwise specified, test(s) performed at: [facility], [address] [place] [address], [place] [address] SANITARY CHEMIST: Vicente Flores M.D., Ph.D For any questions, please call customer service at FREQUENCY:OTHER Resulting Agency Comment Specimen source: Serum Landon Calvert MD LAB BLOOD ORDERABLES [facility] See order comments or contact performing lab Unknown, [place] documented in this encounter Visit Diagnoses Not on filedocumented in this encounter Care Teams Screen Roller Relationship Specialty Start Date End Date Fabian Arias MD [address] [place] [address] PCP - General Family Medicine 09/04/20 documented as of this encounter
--- OUTSIDE RECORDS SUMMARY | 2024-02-14 11:35 | XMS_ITS | Referral Summary ---
Author Organization [facility] Address [address] [place] [address] Care Team Providers Care Student Ambassador Name Role Phone Louis Reyes MD Primary Care Provider [phone] Clinic, Not Listed Unavailable Unavailable Allergies Active Allergy Reactions Criticality Noted Date Comments Carvedilol Other 12/28/2019 Other reaction(s): Other (see comments) Iron Hives,Itching High 05/23/2021 Iron Sucrose Rash Low 09/19/2021 Medications Medication Sig Dispensed Refills Start Date End Date Status calcium acetate, phosphate binders, (PHOSLO) 667 mg oral capsule TAKE 2 CAPSULES BY MOUTH THREE TIMES DAILY WITH MEALS AND 1 CAPSULE TWO TIMES DAILY WITH SNACKS 11/17/2021 Active lisinopriL (PRINIVIL) 2.5 mg oral tablet Take 2.5 mg by mouth once daily. 12/16/2021 Active metoprolol succinate, XL, (TOPROL XL) 25 mg oral extended release tablet 24 HR 12/19/2021 Acti ve Cholecalciferol, Vitamin D3, 50 mcg (2,000 unit) oral capsule Take 1 tablet by mouth. Active furosemide (LASIX) 80 mg oral tablet Take 80 mg by mouth twice a day. 09/01/2020 Active omeprazole (PRILOSEC) 20 mg oral delayed release capsule Take by mouth Daily. 09/06/2021 Active HYDROmorphone (DILAUDID) 2 mg oral tablet Take 1 tablet (2 mg) by mouth every 4 (four) hours as needed for pain. 10 tablet 04/27/2022 Active Active Problems Problem Noted Date Diagnosed Date ESRD (end stage renal disease) 02/02/2022 Social History Tobacco Use Types Packs/Day Years Used Date Smoking Tobacco: Every Day Smokeless Tobacco: Never Alcohol Use Standard Drinks/Week Comments Never 0 (1 standard drink = 0.6 oz pur e alcohol) Sex and Gender Information Value Date Recorded [...] 04/27/2022 8:43 AM CDT Plan of Treatment Not on file Advance Directives For more information, please contact: [phone] * Full Code (Latest Code Status on File) Date Activated Date Inactivated Comments 02/02/2022 9:21 AM 02/03/2022 1:53 AM Question Answer Comments How was code status determined? Patient Care Teams Student Ambassador Relationship Specialty Start Date End Date Louis Reyes MD [address] [place] [address] PCP - General 01/30/22 Clinic, Not Listed PCP - Primary Care Clinic 01/30/22
--- OUTSIDE RECORDS SUMMARY | 2024-02-14 11:35 | XMS_ITS | Encounter Summary ---
Author Organization [facility] Address [address] [place] [address] Care Team Providers Care Capacity Planner Name Role Phone Fabian Arias MD Primary Care Provider + [phone] Encounter Details Date Type Department Care Team (Late st Contact Info) Description 12/23/2023 Orders Only [facility] [address] [place] [address] Landon Calvert MD [address] [place] [address] Social History Tobacco Use Types [...] Procedure Name Priority Date/Time Associated Diagnosis Comments CHEMISTRY Routine 12/23/2023 documented in this encounter Results * (ABNORMAL) [facility] (12/23/2023) Phosphorus 5.7(H) 2.6 - 4.5 mg/dL [facility] 12/23/2023 12/24/2023 11: 33 AM CDT Narrative [facility] - 12/24/2023 Unless otherwise specified, test(s) performed at: [facility], [address] [place] [id number] FINANCIAL SYSTEMS ADMINISTRATOR: Vicente Flores M.D., Ph.D For any questions, please call customer service at FREQUENCY:OTHER Resulting Agency Comment Specimen source: Serum Landon Calvert MD LAB BLOOD ORDERABLES [facility] See order comments or contact performing lab Unknown, [place] documented in this encounter Visit Diagnoses Not on filedocumented in this encounter Care Teams Capacity Planner Relationship Specialty Start Date End Date Fabian Arias MD [address] [place] [address] PCP - General Family Medicine 09/04/20 documented as of this encounter
--- OUTSIDE RECORDS SUMMARY | 2024-02-14 11:35 | XMS_ITS | Encounter Summary ---
Author Organization [facility] Address [address] [place] [address] Phone Care Team Providers Care Staff Respiratory Therapist Name Role Phone Fabian Arias MD Primary Care Provider [phone] Encounter Details Date Type Department Care Team (Latest Contact Info) Description 12/04/2020 Orders Only [facility] [address] [place] [address] Robert Newell MD [address] [place] [address] Chronic kidney disease, Stage V (HCC); Stage 5 chronic kidney disease (HCC); Essential (primary) hypertension; Anemia in chronic kidney disease; Secondary hyperparathyroidism of renal origin (HCC) Social History Tobacco Use Types Packs/Day Years [...] chronic kidney disease Secondary hyperparathyroidism of renal origin (HCC) Secondary hyperparathyroidism of renal origin documented in this encounter Care Teams Staff Respiratory Therapist Relationship Specialty Start Date End Date Fabian Arias MD [address] [place] [address] PCP - General Family Medicine 09/04/20 documented as of this encounter
--- OUTSIDE RECORDS SUMMARY | 2024-02-14 11:35 | XMS_ITS | Encounter Summary ---
Author Organization [facility] Address [address] [place] [address] Care Team Providers Care Diffuser Operator Name Role Phone Fabian Arias MD Primary Care Provider + [phone] Encounter Details Date Type Department Care Team (Late st Contact Info) Description 12/25/2023 Orders Only [facility] [address] [place] [address] Landon Calvert MD [address] [place] [address] Social History Tobacco Use Types [...] Priority Date/Time Associated Diagnosis Comments HEMATOLOGY Routine 12/25/2023 CHEMISTRY Routine 12/25/2023 documented in this encounter Results * (ABNORMAL) [facility] (12/25/2023) Phosphorus 6.8(H) 2.6 - 4.5 mg/dL [facility] 12/25/2023 12/26/2023 2:1 0 PM CDT Narrative [facility] - 12/26/2023 Unless otherwise specified, test(s) performed at: [employer] [address] [place] [address] BIOLOGY INTERNSHIP: Vicente Flores M.D., Ph.D For any questions, please call customer service at FREQUENCY:OTHER Resulting Agency Comment Specimen source: Serum Landon Calvert MD LAB BLOOD ORDERABLES Performing Organization Address [facility] Co de Phone Number [facility] See order comments or contact performing lab Unknown, [place] * (ABNORMAL) HEMATOLOGY (12/25/2023) Hemoglobin 10.6(L) 12.0 - 16.0 g/dL [facility] Hemoglobin x 3 31.8(L) 36.0 - 48.0 % [facility] 12/25/2023 12/26/2023 12: [address] [facility] [place] [facility] - 12/26/2023 Unless otherwise specified, test(s) performed at: [employer] [address] [place] [address] [employer]: Vicente Flores M.D., Ph.D For any questions, please call customer service at FREQUENCY:OTHER Resulting Agency Comment Specimen source: Blood Landon Calvert MD LAB BLOOD ORDERABLES Performing Organization Address [facility] de Phone Number [facility] See order comments or contact performing lab Unknown, [place] documented in this encounter Visit Diagnoses Not on filedocumented in this encounter Care Teams Diffuser Operator Relationship Specialty Start Date End Date Fabian Arias MD [address] [place] [address] PCP - General Family Medicine 09/04/20 documented as of this encounter
--- OUTSIDE RECORDS SUMMARY | 2024-02-14 11:35 | XMS_ITS | Encounter Summary ---
Author Organization [facility] Address [address] [place] [address] Care Team Providers Care Olive Pitter Name Role Phone Fabian Arias MD Primary Care Provider + [phone] Encounter Details Date Type Department Care Team (Late st Contact Info) Description 11/06/2023 Orders Only [facility] [place] [address] [place] [address] Landon Calvert MD [address] [place] [address] Social History Tobacco Use Types [...] Priority Date/Time Associated Diagnosis Comments HEMATOLOGY Routine 11/06/2023 documented in this encounter Results * (ABNORMAL) HEMATOLOGY (11/06/2023) Hemoglobin 8.7(L) 12.0 - 16.0 g/dL [facility] Hemoglobin x 3 26.1(L) 36.0 - 48.0 % [facility] 11/06/2023 11/07/2023 1:1 9 PM CDT Narrative [facility] - 11/07/2023 Unless otherwise specified, test(s) performed at: [facility], [address] [facility], [place] [address] [employer]: Vicente Flores M.D., Ph.D For any questions, please call customer service at FREQUENCY:OTHER Resulting Agency Comment Specimen source: Blood Landon Calvert MD LAB BLOOD ORDERABLES [facility] See order comments or contact performing lab Unknown, [place] documented in this encounter Visit Diagnoses Not on filedocumented in this encounter Care Teams Olive Pitter Relationship Specialty Start Date End Date Fabian Arias MD [address] [place] [address] PCP - General Family Medicine 09/04/20 documented as of this encounter
--- OUTSIDE RECORDS SUMMARY | 2024-02-14 11:35 | XMS_ITS | Encounter Summary ---
Author Organization [facility] Address [address] [place] [address] Care Team Providers Care Shopper'S Aide Name Role Phone Fabian Arias MD Primary Care Provider + [phone] Encounter Details Date Type Department Care Team (Late st Contact Info) Description 11/27/2023 Orders Only [facility] [place] [address] [place] [address] Landon Calvert MD [address] [place] [address] Social History Tobacco Use Types [...] Priority Date/Time Associated Diagnosis Comments HEMATOLOGY Routine 11/27/2023 documented in this encounter Results * (ABNORMAL) HEMATOLOGY (11/27/2023) Hemoglobin 8.8(L) 12.0 - 16.0 g/dL [facility] Hemoglobin x 3 26.4(L) 36.0 - 48.0 % [facility] 11/27/2023 11/28/2023 3:0 3 PM CDT Narrative [facility] - 11/28/2023 Unless otherwise specified, test(s) performed at: [facility], [address] [facility], [place] [address] TYPE DISK QUALITY CONTROL SUPERVISOR: Vicente Flores M.D., Ph.D For any questions, please call customer service at FREQUENCY:OTHER Resulting Agency Comment Specimen source: Blood Landon Calvert MD LAB BLOOD ORDERABLES [facility] See order comments or contact performing lab Unknown, [place] documented in this encounter Visit Diagnoses Not on filedocumented in this encounter Care Teams Shopper'S Aide Relationship Specialty Start Date End Date Fabian Arias MD [address] [place] [address] PCP - General Family Medicine 09/04/20 documented as of this encounter
--- OUTSIDE RECORDS SUMMARY | 2024-02-14 11:35 | XMS_ITS | Encounter Summary ---
Author Organization [facility] Address [address] [place] [address] Care Team Providers Care Dope Sprayer Name Role Phone Fabian Arias MD Primary Care Provider + [phone] Encounter Details Date Type Department Care Team (Late st Contact Info) Description 12/25/2023 Treatment [facility] [place] [address] [place] [address] Landon Calvert MD [address] [place] [address] Social History Tobacco Use Types Packs/Day Years Used Date Smoking Tobacco: Smoker, Cur rent Status Unknown Cigarettes Started: 977 Sex and Gender Information Value Date Recorded Sex Assigned at Not on file Gender Identity Not on file Sexual Orientation Not on file documented as of this encounter Miscellaneous Notes * Dialysis Note - Landon Calvert MD - 12/25/2023 9:06 AM CDT Date: Dec 25, 2023 Patient Name: Zamzam Garibay : 1940 Chart #: [id number] Sex: F This patient was personally seen for a complete visit as part of routine monthly dialysis care. A review of the dialysis treatment, blood pressure, estimated dry weight and recent lab values was made. These were discussed with the patient and staff as necessary. Treatment Data for 12/25/2023 started at:6:16 AM Dialyzer: 160NRe Optiflux Na: 137 mEq/L Bicarb: 27 mEq/L Dialysate: 2.0 K, 2.5 Ca, 1.0 Mg, 100 Dextrose (G2251) Dialysate/Machine Temp (prescribed): 37 C Dialysate/Machine Temp (actual): 36.9 C BFR (prescribed): 350 BFR (actual): 350 Prescribed time: 03:30 EDW: 51.5 kg Access Type: Active (In Use):AVGraft-Unknown/Right Upper Arm Pre Dialysis Vitals (for 12/25/2023 6:07 AM ) Pre BP (sit): 177/86 Pre Wt: 53.1 kg Temp: 98 F Post Dialysis Vitals (for 12/23/2023 9:53 AM ) Post BP (sit): 154/78 Post Wt: 52.4 kg Current Dialysis Vitals (for 12/25/2023 9:03 AM ) BP (sit): 159/77 AP(-) / KAIAWHINA: 206/167 Pulse: 70 Chairside data as of 12/25/2023 9:03 AM Last 3 Treatments 12/23/2023 12/20/2023 12/18/2023 EDW (kg) 51.5 51.5 51.5 Weight Pre (kg) 53.4 53.3 53.2 Weight Post (kg) 52.4 51.6 51.4 Dialytic Weight Loss (kg) -1 -1.7 -1.8 EDW Deviation (kg) 0.9 0.1 -0.1 BP Sit Pre 181/86 195/88 155/65 BP Sit Post 154/78 122/70 115/56 UF Rate (mL/kg/hr) 6 9 10 Prescribed BFR 350 350 350 Average Delivered BFR 350 350 350 Prescribed Treatment Time 03:30 03:30 03:30 Actual Treatment Time 03:30 03:31 03:31 Last 3 Values 12/02/2023 11/01/2023 09/30/2023 Access Flow [id number] DECKHAND: Landon Calvert MD LOCATION: [place] [phone] SCHEDULE: -- 1st Shift EDW: kg. DIALYZER: [...] improved and no SOB. Advanced Practitioner Subjective SAMPLE BUILDER 12/04/2023: Spoke with patient on dialysis. Continues to have black stools on occasion. She has GIappointment scheduled in December. Encouraged her to connect with PCP for follow-up. She is planning tocall today. Started on Ferrlecit and on max Mircera. Tolerating dialysis. BP improved. She has beengetting to EDW. AVG has been working well. No changes today. Continue same plan. SAMPLE BUILDER 11/29/2023: Patient seen while on dialysis. States that she is feeling good. Hospitalized last month for GI bleed. She still has some occasional black stools. Hgb has been stable around 8. Denies SOB, chest pain, cramping or dizziness. Leaving close to EDW. BP elevated. AVG functional; no reported issues. Continue plan of care. Review of Systems None reported. Problem List [...] a day onehour before meals RenaPlex-D (vit b,h-zy-rwdq-selen-vit d3-e) 800 mcg-12.5 mg-2,000 unit tablet TAKE 1 TABLET BY MOUTH EVERY DAY WITH THE EVENING MEAL Allergy List Allergen Reaction Reaction Severity Onset Date Venofer Skin rash Medications reviewed and no changes were made. Treatment and Adequacy Assessment BUN mg/dL 41 (12/04/23) 64 (10/30/23) 91 (10/02/23) 59 (09/04/23) 78 (08/07/23) UREA NITROGEN (MG/DL) IN SER/PLAS - POST DIALYSIS mg/dL 6 (12/04/23) 12 (10/30/23) 16 (10/02/23) 10 (09/04/23) 16 (08/07/23) URR % 85 (12/04/23) 81 (10/30/23) 82 (10/02/23) 83 (09/04/23) 79 (08/07/23) spKt/V Gotch 2.31 (12/04/23) 2.04 (10/30/23) 2.1 (10/02/23) 2.11 (09/04/23) 1.96 (08/07/23) eKdrt/V 1.95 (12/04/23) 1.73 (10/30/23) 1.78 (10/02/23) 1.78 (09/04/23) 1.58 (08/07/23) spKt/V (Daugirdas II) 2.2600 (12/04/23) 2.0000 (10/30/23) 2.0600 (10/02/23) 2.0600 (09/04/23) 1.8700 (08/07/23) Dialysis is adequate. Achieves prescribed time - Yes Achieves prescribed frequency - Yes Continue current prescription. 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 Will need new access placement. She is being set up forvein mapping and surgeon consult Anemia Assessment HEMOGLOBIN (G/DL) IN BLOOD g/dL 9.4 (12/18/23) 8.9 (12/11/23) 9.0 (12/04/23) 8.8 (11/27/23) 8.9 (11/20/23) PLATELETS 1000/mcL 440 (12/04/23) 303 (10/30/23) 453 (10/02/23) 388 (09/04/23) 301 (08/07/23) FERRITIN ng/mL 62 (10/30/23) 28 (08/07/23) 23 (05/01/23) 28 (04/05/23) 480 (01/02/23) TRANSFERRIN SAT% % 12 (12/04/23) 11 (10/30/23) 6 (10/02/23) 11 (09/04/23) 22 (08/07/23) Hemoglobin is below goal. Iron Saturation is below goal. Ferritin is below goal. Will adjust CARIE and intravenous iron per protocol. Venofer allergy. Receives Ferrlicit when IV iron necessary. On oral iron and tolerating. Hgb improving Nutritional and Metabolic Assessment ALBUMIN (G/DL) g/dL 4.0 (12/04/23) 3.7 (10/30/23) 3.9 (10/02/23) 4.1 (09/04/23) 3.9 (08/07/23) Sodium mEq/L 136 (12/04/23) 137 (10/30/23) 138 (10/02/23) 136 (09/04/23) 137 (08/07/23) POTASSIUM (MMOL/L) IN SER/PLAS mEq/L 5.2 (12/04/23) 4.8 (11/20/23) 6.0 (10/30/23) 5.6 (10/02/23) 6.0 (09/04/23) BICARBONATE (CO2) mEq/L 26 (12/04/23) 23 (10/30/23) 24 (10/02/23) 19 (09/04/23) 19 (08/07/23) Albumin is at goal. Encourage high-biological value protein intake. Potassium is at goal. Encourage low potassium diet. Bicarbonate is at goal. Continue same bicarbonate in dialysate. Bone and Mineral Metabolism Assessment CALCIUM mg/dL 9.6 (12/04/23) 8.5 (10/30/23) 8.8 (10/02/23) 9.6 (09/04/23) 8.6 (08/07/23) CALCIUM (MG/DL) CORRECTED FOR ALBUMIN IN SER/PLAS mg/dL 9.6 (12/04/23) 8.7 (10/30/23) 8.9 (10/02/23) 9.5 (09/04/23) 8.7 (08/07/23) PHOSPHATE (MG/DL) IN SER/PLAS mg/dL 5.7 (12/23/23) 7.0 (12/04/23) 5.8 (11/20/23) 8.7 (10/30/23) 9.6 (10/02/23) CALCIUM PHOSPHORUS PRODUCT, COR 67 (12/04/23) 76 (10/30/23) 85 (10/02/23) 79 (09/04/23) 70 (08/07/23) IPTH pg/mL 639 (10/30/23) 454 (08/07/23) 327 (06/05/23) 426 (05/01/23) 126 (04/05/23) Corrected Calcium is at goal. Phosphorous is above goal. Intact PTH is at goal. Patient Care will adjust binders and vitamin D per [...] Stable dialysis, no change to prescription BP improving, no changes today HGb improving, GI f/u in place. Continue oral iron Landon Calvert MD [ Signed And locked electronically On 12/25/2023 at 09:09:46 AM ] Transcribed: Landon Calvert ( 12/25/2023 ) documented in this encounter Plan of Treatment Not on file documented as of this encounter Visit Diagnoses Not on filedocumented in this encounter Care Teams Dope Sprayer Relationship Specialty Start Date End Date Fabian Arias MD [address] [place] [address] PCP - General Family Medicine 09/04/20 documented as of this encounter
--- OUTSIDE RECORDS SUMMARY | 2024-02-14 11:35 | XMS_ITS | Encounter Summary ---
Author Organization [facility] Address [address] [place] [address] Care Team Providers Care Psychological Anthropologist Name Role Phone Fabian Arias MD Primary Care Provider + [phone] Encounter Details Date Type Department Care Team (Late st Contact Info) Description 11/11/2023 Treatment [facility] [address] [place] [address] Landon Calvert MD [address] [facility] [place] [address] Social History Tobacco Use Types Packs/Day Years Used Date Smoking Tobacco: Smoker, Cur rent Status Unknown Cigarettes Started: 977 Sex and Gender Information Value Date Recorded Sex Assigned at Not on file Gender Identity Not on file Sexual Orientation Not on file documented as of this encounter Miscellaneous Notes * Dialysis Note - Landon Calvert MD - 11/11/2023 9:23 AM CDT Date: November 11, 2023 Patient Name: Zamzam Garibay : 1940 Chart #: [id number] Sex: F This patient was personally seen for a complete visit as part of routine monthly dialysis care. A review of the dialysis treatment, blood pressure, estimated dry weight and recent lab values was made. These were discussed with the patient and staff as necessary. Treatment Data for 11/11/2023 started at:6:24 AM Dialyzer: 160NRe Optiflux Na: 137 mEq/L Bicarb: 29 mEq/L Dialysate: 2.0 K, 2.5 Ca, 1.0 Mg, 100 Dextrose (G2251) Dialysate/Machine Temp (prescribed): 37 C Dialysate/Machine Temp (actual): 37.2 C BFR (prescribed): 350 BFR (actual): 350 Prescribed time: 03:30 EDW: 52 kg Access Type: Active (In Use):AVGraft-Unknown/Right Upper Arm Pre Dialysis Vitals (for 11/11/2023 6:16 AM ) Pre BP (sit): 192/96 Pre Wt: 53.7 kg Temp: 97.2 F Post Dialysis Vitals (for 11/08/2023 9:50 AM ) Post BP (sit): 184/87 Post Wt: 52.3 kg Current Dialysis Vitals (for 11/11/2023 9:02 AM ) BP (sit): 141/66 AP(-) / AIR CARGO GROUND CREW SUPERVISOR: 189/150 Pulse: 79 Chairside data as of 11/11/2023 9:02 AM Last 3 Treatments 11/08/2023 11/06/2023 11/04/2023 EDW (kg) 52 52 52 Weight Pre (kg) 54.1 52.2 53.3 Weight Post (kg) 52.3 51.8 51.6 Dialytic Weight Loss (kg) -1.8 -0.4 -1.7 EDW Deviation (kg) 0.3 -0.2 -0.4 BP Sit Pre 206/84 168/62 195/93 BP Sit Post 184/87 165/80 196/88 UF Rate (mL/kg/hr) 10 2 9 Prescribed BFR 350 350 350 Average Delivered BFR 350 350 350 Prescribed Treatment Time 03:30 03:30 03:30 Actual Treatment Time 03:31 03:36 03:30 Last 3 Values 11/01/2023 09/30/2023 09/02/2023 Access Flow [id number] Treatment Medication Orders Medication Sig Start Date End Date Cinacalcet (Sensipar) 30 mg ORAL 3X Week Post Dialysis,with snack 04/12/2023 04/10/2024 Heparin Sodium (Porcine) 1,000 Units/mL Systemic 2000 units IVP Every Treatment 10/04/2023 10/02/2024 Mircera 150 mcg IVP Every 2 weeks During Dialysis 11/04/2023 11/02/2024 Sodium Ferric Gluconate (Ferrlecit) 62.5 mg IVP Every Treatment During Dialysis 10/04/2023 10/02/2024 Vitamin D (Calcitriol) Oral 0.5 mcg ORAL 3X Week 05/08/2023 05/06/2024 STATISTICAL SECRETARY: Landon Calvert MD LOCATION: [place] [phone] SCHEDULE: -- 1st Shift EDW: kg. DIALYZER: HD DURATION: NEEDLE SIZE: ANTICOAG: BATH: QB: ml/min QD: ml/min Subjective Tolerating dialysis well. 11/11/23: She feels excellent currently. She says she has no pain, stools turned brown from black a few days ago, and she has no complaints at all and feels wonderful. She has pill cam study planned, however, end of month with GI. Her Hgb is more stable. Her BP is higher again. She is staking her BP meds every day she says and hasn't missed any doses. Advanced Practitioner Subjective PRODUCTION SUPERVISOR TRAINEE 09/13/2023: Patient seen on dialysis. Has a cold today and headache last evening. Tolerating dialysis. BP improved. She has been getting to EDW. AVG has been working well. No changes today. Continue same plan. PRODUCTION SUPERVISOR TRAINEE 08/02/2023: Spoke with patient on dialysis. No new concerns reported. Denies SOB, chest pain, cramping or dizziness. Leaving close to EDW. AVG functional; no reported issues. Had episode of nausea off treatment in lobby; no vomiting. No headache or fever. Was feeling better after about 10 minutes. PRODUCTION SUPERVISOR TRAINEE 07/05/2023: Patient seen while on dialysis. States that she is feeling well. No headaches today. Denies SOB, chest pain, cramping or dizziness. [...] a day onehour before meals RenaPlex-D (vit b,w-ey-ocwa-selen-vit d3-e) 800 mcg-12.5 mg-2,000 unit tablet TAKE 1 TABLET BY MOUTH EVERY DAY WITH THE EVENING MEAL Allergy List Allergen Reaction Reaction Severity Onset Date Venofer Skin rash Medications reviewed and no changes were made. Treatment and Adequacy Assessment BUN mg/dL 64 (10/30/23) 91 (10/02/23) 59 (09/04/23) 78 (08/07/23) 64 (07/03/23) UREA NITROGEN (MG/DL) IN SER/PLAS - POST DIALYSIS mg/dL 12 (10/30/23) 16 (10/02/23) 10 (09/04/23) 16 (08/07/23) 10 (07/03/23) URR % 81 (10/30/23) 82 (10/02/23) 83 (09/04/23) 79 (08/07/23) 84 (07/03/23) spKt/V Gotch 2.04 (10/30/23) 2.1 (10/02/23) 2.11 (09/04/23) 1.96 (08/07/23) 2.33 (07/03/23) eKdrt/V 1.73 (10/30/23) 1.78 (10/02/23) 1.78 (09/04/23) 1.58 (08/07/23) 1.95 (07/03/23) spKt/V (Daugirdas II) 2.0000 (10/30/23) 2.0600 (10/02/23) 2.0600 (09/04/23) 1.8700 (08/07/23) 2.2300 (07/03/23) Dialysis is adequate. Achieves prescribed time - Yes Achieves prescribed frequency - Yes Continue current prescription. 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 Will need new access placement. She is being set up forvein mapping and surgeon consult Anemia Assessment HEMOGLOBIN (G/DL) IN BLOOD g/dL 8.7 (11/06/23) 8.9 (10/30/23) 8.5 (10/23/23) 7.9 (10/16/23) 7.4 (10/02/23) PLATELETS 1000/mcL 303 (10/30/23) 453 (10/02/23) 388 (09/04/23) 301 (08/07/23) 345 (07/03/23) FERRITIN ng/mL 62 (10/30/23) 28 (08/07/23) 23 (05/01/23) 28 (04/05/23) 480 (01/02/23) TRANSFERRIN SAT% % 11 (10/30/23) 6 (10/02/23) 11 (09/04/23) 22 (08/07/23) 10 (07/03/23) Hemoglobin is below goal. Iron Saturation is below goal. Ferritin is below goal. Will adjust CARIE and intravenous iron per protocol. Venofer allergy. Gave course of Ferrlicit. She is now on oral iron and tolerating well. Hgb slowly trending up. Stools also now brown instead of black (despite being on oral iron) Nutritional and Metabolic Assessment ALBUMIN (G/DL) g/dL 3.7 (10/30/23) 3.9 (10/02/23) 4.1 (09/04/23) 3.9 (08/07/23) 4.0 (07/03/23) Sodium mEq/L 137 (10/30/23) 138 (10/02/23) 136 (09/04/23) 137 (08/07/23) 139 (07/03/23) POTASSIUM (MMOL/L) IN SER/PLAS mEq/L 6.0 (10/30/23) 5.6 (10/02/23) 6.0 (09/04/23) 5.8 (08/21/23) 5.3 (08/14/23) BICARBONATE (CO2) mEq/L 23 (10/30/23) 24 (10/02/23) 19 (09/04/23) 19 (08/07/23) 20 (07/03/23) Albumin is below goal. Encourage high-biological value protein intake. Potassium is above goal. Encourage low potassium diet. Bicarbonate is at goal. Continue same bicarbonate in dialysate. Will re-check K next week along with phos, instructed on low K diet. May also have had GI blood reabsorption contributing to hyperkalemia Bone and Mineral Metabolism Assessment CALCIUM mg/dL 8.5 (10/30/23) 8.8 (10/02/23) 9.6 (09/04/23) 8.6 (08/07/23) 9.6 (07/03/23) CALCIUM (MG/DL) CORRECTED FOR ALBUMIN IN SER/PLAS mg/dL 8.7 (10/30/23) 8.9 (10/02/23) 9.5 (09/04/23) 8.7 (08/07/23) 9.6 (07/03/23) PHOSPHATE (MG/DL) IN SER/PLAS mg/dL 8.7 (10/30/23) 9.6 (10/02/23) 8.3 (09/04/23) 8.0 (08/07/23) 8.2 (07/03/23) CALCIUM PHOSPHORUS PRODUCT, COR 76 (10/30/23) 85 (10/02/23) 79 (09/04/23) 70 (08/07/23) 79 (07/03/23) IPTH pg/mL 639 (10/30/23) 454 (08/07/23) 327 (06/05/23) 426 (05/01/23) 126 (04/05/23) Corrected Calcium is at goal. Phosphorous is above goal. Intact PTH is at goal. Aircraft Tool Maker will adjust binders and vitamin D per protocol and continue to provide dietary education. She was out of binder for two weeks which she now re-started. Re-check phos next week, discussed with RD today Cardiovascular Assessment Blood pressures reviewed and are not at goal, see below. Intradialytic weight gains are appropriate. Estimated dry weight is appropriate. Continue same cardiovascular medications. Increase Toprol XL to 50mg Transplant Status: Patient is not a candidate. age and co-morbidities Resuscitation Status GI bleeding improved with Hgb stabilizing and stools now brown Continue oral iron and GI f/u Increase Toprol XL to 50mg daily, monitor BP Back on phos binders and instructed on low K diet - re-check Phos and K next week Landon Calvert MD [ Signed And locked electronically On 11/11/2023 at 09:28:01 AM ] Transcribed: Landon Calvert ( 11/11/2023 ) documented in this encounter Plan of Treatment Not on file documented as of this encounter Visit Diagnoses Not on filedocumented in this encounter Care Teams Psychological Anthropologist Relationship Specialty Start Date End Date Fabian Arias MD [address] [place] [address] PCP - General Family Medicine 09/04/20 documented as of this encounter
--- OUTSIDE RECORDS SUMMARY | 2024-02-14 11:35 | XMS_ITS | Clinical Summary ---
Author Organization [facility] Address [address] [place] [id number] Care Team Providers Care Road Boss Name Role Phone Louis Reyes MD Primary Care Provider [phone] Clinic, Not Listed Unavailable Unavailable Allergies Active [...] Due Date Last Done Comments Colonoscopy 1940 Lipid Screening 1940 Osteoporosis Screening 1940 Depression Assessment (PHQ-2) 12/28/1941 Adult Tetanus Booster 1961 Zoster Vaccine (1 of 2) 1992 RSV 60+ Yrs (1 - 1-dose 60+ series) 2002 Pneumococcal 65+ (2 of 2 - P PSV23 or PCV20) 05/23/2021 03/28/2021 COVID-19 Vaccine (1 - 2022- season) 2023 Yearly Review of HCD 04/04/2023 04/04/2022, 01/11/20 22 Influenza Vaccine (#1) 2024 Advance Directives For more information, please contact: [phone] * Full Code (Latest Code Status on File) Date Activated Date Inactivated Comments 02/02/2022 9:21 AM 02/03/2022 1:53 AM Question Answer Comments How was code status determined? Patient Care Teams Road Boss Relationship Specialty Start Date End Date Louis Reyes MD [address] [place] [address] PCP - General 01/30/22 Clinic, Not Listed PCP - Primary Care Clinic 01/30/22
--- OUTSIDE RECORDS SUMMARY | 2024-02-14 11:35 | XMS_ITS | Encounter Summary ---
Author Organization [facility] Address [address] [place] [address] Care Team Providers Care Lens Finisher Name Role Phone Fabian Arias MD Primary Care Provider + [phone] Encounter Details Date Type Department Care Team (Late st Contact Info) Description 11/20/2023 Orders Only [facility] [place] [address] [place] [address] Landon Calvert MD [address] [place] [address] Social History Tobacco Use Types [...] Priority Date/Time Associated Diagnosis Comments HEMATOLOGY Routine 11/20/2023 CHEMISTRY Routine 11/20/2023 documented in this encounter Results * (ABNORMAL) HEMATOLOGY (11/20/2023) Hemoglobin 8.9(L) 12.0 - 16.0 g/dL [facility] Hemoglobin x 3 26.7(L) 36.0 - 48.0 % [facility] 11/20/2023 11/21/2023 4:1 2 AM CDT Narrative [facility] - 11/21/2023 Unless otherwise specified, test(s) performed at: [facility], [address] [place] [address], [place] [address] CAN INTAKE WORKER: Vicente Flores M.D., Ph.D For any questions, please call customer service at FREQUENCY:OTHER Resulting Agency Comment Specimen source: Blood Landon Calvert MD LAB BLOOD ORDERABLES Performing Organization Address City/[facility] Co de Phone Number [facility] See order comments or contact performing lab Unknown, [place] * (ABNORMAL) [facility] (11/20/2023) Potassium 4.8 3.5 - 5.1 mEq/L [facility] Phosphorus 5.8(H) 2.6 - 4.5 mg/dL [facility] 11/20/2023 11/21/2023 3:4 5 AM CDT Narrative [facility] - 11/21/2023 Unless otherwise specified, test(s) performed at: [facility], [address] [place] [address], [place] [address] CAN INTAKE WORKER: Vicente Flores M.D., Ph.D For any questions, please call customer service at FREQUENCY:OTHER Resulting Agency Comment Specimen source: Serum Landon Calvert MD LAB BLOOD ORDERABLES Performing Organization Address [facility] Co de Phone Number [facility] See order comments or contact performing lab Unknown, [place] documented in this encounter Visit Diagnoses Not on filedocumented in this encounter Care Teams Lens Finisher Relationship Specialty Start Date End Date Fabian Arias MD [address] [place] [address] PCP - General Family Medicine 09/04/20 documented as of this encounter
--- OUTSIDE RECORDS SUMMARY | 2024-02-14 11:35 | XMS_ITS | Encounter Summary ---
Author Organization [facility] Address [address] [place] [address] Care Team Providers Care Medical Accounts Receivable Specialist Name Role Phone Fabian Arias MD Primary Care Provider + [phone] Encounter Details Date Type Department Care Team (Late st Contact Info) Description 12/11/2023 Orders Only [facility] [place] [address] [place] [address] Landon Calvert MD [address] [place] [address] Social History Tobacco Use Types [...] Priority Date/Time Associated Diagnosis Comments HEMATOLOGY Routine 12/11/2023 documented in this encounter Results * (ABNORMAL) HEMATOLOGY (12/11/2023) Hemoglobin 8.9(L) 12.0 - 16.0 g/dL [facility] Hemoglobin x 3 26.7(L) 36.0 - 48.0 % [facility] 12/11/2023 12/12/2023 11: 09 AM CDT Narrative [facility] - 12/12/2023 Unless otherwise specified, test(s) performed at: [facility], [address] [place] [address] STAIN SPRAYER: Vicente Flores M.D., Ph.D For any questions, please call customer service at FREQUENCY:OTHER Resulting Agency Comment Specimen source: Blood Landon Calvert MD LAB BLOOD ORDERABLES [facility] See order comments or contact performing lab Unknown, [place] documented in this encounter Visit Diagnoses Not on filedocumented in this encounter Care Teams Medical Accounts Receivable Specialist Relationship Specialty Start Date End Date Fabian Arias MD [address] [place] [address] PCP - General Family Medicine 09/04/20 documented as of this encounter
--- OUTSIDE RECORDS SUMMARY | 2024-02-14 11:35 | XMS_ITS | Encounter Summary ---
Author Organization [facility] Address [address] [place] [address] Care Team Providers Care Field Sampling Technician Name Role Phone Fabian Arias MD Primary Care Provider + [phone] Encounter Details Date Type Department Care Team (Late st Contact Info) Description 11/13/2023 Orders Only [facility] [place] [address] [place] [address] Landon Calvert MD [address] [place] [address] Social History Tobacco Use Types [...] Priority Date/Time Associated Diagnosis Comments HEMATOLOGY Routine 11/13/2023 documented in this encounter Results * (ABNORMAL) HEMATOLOGY (11/13/2023) Hemoglobin 9.0(L) 12.0 - 16.0 g/dL [facility] Hemoglobin x 3 27.0(L) 36.0 - 48.0 % [facility] 11/13/2023 11/14/2023 12: 31 PM CDT Narrative [facility] - 11/14/2023 Unless otherwise specified, test(s) performed at: [facility], [address] [place] [address] OBIEE ARCHITECT: Vicente Flores M.D., Ph.D For any questions, please call customer service at FREQUENCY:OTHER Resulting Agency Comment Specimen source: Blood Landon Calvert MD LAB BLOOD ORDERABLES [facility] See order comments or contact performing lab Unknown, [place] documented in this encounter Visit Diagnoses Not on filedocumented in this encounter Care Teams Field Sampling Technician Relationship Specialty Start Date End Date Fabian Arias MD [address] [place] [address] PCP - General Family Medicine 09/04/20 documented as of this encounter
--- OUTSIDE RECORDS SUMMARY | 2024-02-14 11:35 | XMS_ITS | Encounter Summary ---
Author Organization [facility] Address [address] [place] [address] Care Team Providers Care Substance Abuse Rn Name Role Phone Fabian Arias MD Primary Care Provider + [phone] Encounter Details Date Type Department Care Team (Late st Contact Info) Description 12/18/2023 Orders Only [facility] [place] [address] [place] [address] Landon Calvert MD [address] [place] [address] Social History Tobacco Use Types [...] Priority Date/Time Associated Diagnosis Comments HEMATOLOGY Routine 12/18/2023 documented in this encounter Results * (ABNORMAL) HEMATOLOGY (12/18/2023) Hemoglobin 9.4(L) 12.0 - 16.0 g/dL [facility] Hemoglobin x 3 28.2(L) 36.0 - 48.0 % [facility] 12/18/2023 12/20/2023 11: 41 AM CDT Narrative [facility] - 12/20/2023 Unless otherwise specified, test(s) performed at: [facility], [address] [place] [address] CAR TRIMMER: Vicente Flores M.D., Ph.D For any questions, please call customer service at FREQUENCY:OTHER Resulting Agency Comment Specimen source: Blood Landon Calvert MD LAB BLOOD ORDERABLES [facility] See order comments or contact performing lab Unknown, [place] documented in this encounter Visit Diagnoses Not on filedocumented in this encounter Care Teams Substance Abuse Rn Relationship Specialty Start Date End Date Fabian Arias MD [address] [place] [address] PCP - General Family Medicine 09/04/20 documented as of this encounter
--- OUTSIDE RECORDS SUMMARY | 2024-02-14 11:35 | XMS_ITS | Encounter Summary ---
Author Organization [facility] Address [address] [place] [address] Care Team Providers Care Financial Wellness Coach Name Role Phone Fabian Arias MD Primary Care Provider + [phone] Encounter Details Date Type Department Care Team (Late st Contact Info) Description 12/04/2023 Orders Only [facility] [address] [place] [address] Landon Calvert MD [address] [place] [address] Social History Tobacco Use Types [...] Date/Time Associated Diagnosis Comments HD KINETICS Routine 12/04/2023 POST CHEMISTRY Routine 12/04/2023 IMMUNO CHEMISTRY Routine 12/04/2023 HEMATOLOGY Routine 12/04/2023 CHEMISTRY Routine 12/04/2023 [facility] RESULTS Routine 12/04/2023 documented in this encounter Results * [facility] Results (12/04/2023) Pathologist [facility] spKt/V Gotch 2.31 [facility] nPCR_HD 1.01 [facility] eKt/V ([place]) 1.94 [facility] eKdrt/V 1.95 [facility] spKt/V (Daugirdas II) 2.26 [facility] PCR 36.06 [facility] WSTDKT/V 2.8 [facility] eKt/V Gotch 1.95 [facility] eNPCR 0.86 [facility] 12/04/2023 12/04/2023 Celia Ordering Provider LAB BLOOD ORDERABLE [facility] Contact Performing lab Unknown, [place] * IMMUNO CHEMISTRY (12/04/2023) Pathologist [facility] Hep B Surface Ag Negative Negative [facility] 12/04/2023 12/05/2023 4:1 9 PM CDT Narrative [facility] - 12/05/2023 Unless otherwise specified, test(s) performed at: [facility], [address] [place] [address], [place] [address] QUALITY CONTROL SUPERVISOR: Vicente Flores M.D., Ph.D For any questions, please call customer service at FREQUENCY:MONTHLY Resulting Agency Comment Specimen source: Plasma Landon Calvert MD LAB BLOOD ORDERABLES [facility] See order comments or contact performing lab Unknown, [place] * (ABNORMAL) HEMATOLOGY (12/04/2023) Pathologist [facility] WBC 6.90 4.80 - 10.80 1000/mcL [facility] RBC 3.65(L) 4.20 - 5.40 mill/mcL [facility] Hematocrit 29.3(L) 37.0 - 47.0 % [facility] MCV 80 80 - 100 fl [facility] MCH 24.6(L) 27.0 - 31.0 pg [facility] MCHC 30.6 30.0 - 36.0 g/dL [facility] RDW 18.1(H) 11.5 - 14.5 % [facility] Hemoglobin 9.0(L) 12.0 - 16.0 g/dL [facility] Hemoglobin x 3 27.0(L) 36.0 - 48.0 % [facility] Platelets 440(H) 130 - 400 1000/mcL [facility] 12/04/2023 12/05/2023 12: 06 PM CDT Narrative [facility] - 12/05/2023 Unless otherwise specified, test(s) performed at: [facility], [address] [place] [address], [place] [address] QUALITY CONTROL SUPERVISOR: Vicente Flores M.D., Ph.D For any questions, please call customer service at FREQUENCY:MONTHLY Resulting Agency Comment Specimen source: Blood Landon Calvert MD LAB BLOOD ORDERABLES [facility] See order comments or contact performing lab Unknown, [place] * (ABNORMAL) HD KINETICS (12/04/2023) % Urea Reduction 85(H) 65 - 80 % [facility] 12/04/2023 12/05/2023 10: 43 AM CDT Narrative Resulting Agency Comment Specimen source: Plasma Landon Calvert MD LAB BLOOD ORDERABLES [facility] See order comments or contact performing lab Unknown, [place] * POST CHEMISTRY (12/04/2023) BUN Post Dialysis 6 6 - 19 mg/dL [facility] 12/04/2023 12/05/2023 10: 43 AM CDT Narrative [facility] - 12/05/2023 Unless otherwise specified, test(s) performed at: [facility], [address] [place] [address], [place] [address] QUALITY CONTROL SUPERVISOR: Vicente Flores M.D., Ph.D For any questions, please call customer service at FREQUENCY:MONTHLY Resulting Agency Comment Specimen source: Plasma Landon Calvert MD LAB BLOOD ORDERABLES [facility] See order comments or contact performing lab Unknown, [place] * (ABNORMAL) [facility] Chemistry (12/04/2023) BUN 41(H) 6 - 19 mg/dL [facility] Creatinine 8.88(H) 0.60 - 1.30 mg/dL [facility] BUN/Creatinine Ratio 4.6(L) 10.0 - 20.0 [facility] Sodium 136 136 - 145 mEq/L [facility] Potassium 5.2(H) 3.5 - 5.1 mEq/L [facility] Chloride 99 96 - 108 mEq/L [facility] Bicarbonate (CO2) 26 20 - 31 mEq/L [facility] Calcium 9.6 8.7 - 10.4 mg/dL [facility] Comment: Please note change in reference range. Corrected Calcium 9.6 8.7 - 10.4 mg/dL [facility] Comment: Corrected Calcium is not equivalent to measured Ionized Calcium. Phosphorus 7.0(H) 2.6 - 4.5 mg/dL [facility] Calcium Phosphorus Product 67(H) 0 - 54 [facility] Calcium Phosporus Product, Cor 67(H) 0 - 54 [facility] Total Protein 6.4 6.0 - 8.5 g/dL [facility] Albumin 4.0 3.5 - 5.2 g/dL [facility] Globulin, Total 2.4 2.0 - 4.0 g/dL [facility] A/G Ratio 1.7 1.0 - 2.0 [facility] Iron 32 30 - 160 mcg/dL [facility] UIBC 231 155 - 355 mcg/dL [facility] TIBC 263 185 - 515 mcg/dL [facility] Iron Saturation (TSat) 12(L) 20 - 55 % [facility] 12/04/2023 12/05/2023 11: 35 AM CDT Narrative [facility] - 12/05/2023 Unless otherwise specified, test(s) performed at: [facility], [address] [place] [address], [place] [address] QUALITY CONTROL SUPERVISOR: Vicente Flores M.D., Ph.D For any questions, please call customer service at FREQUENCY:MONTHLY Resulting Agency Comment Specimen source: Serum Landon Calvert MD LAB BLOOD ORDERABLES [facility] See order comments or contact performing lab Unknown, [place] documented in this encounter Visit Diagnoses Not on filedocumented in this encounter Care Teams Financial Wellness Coach Relationship Specialty Start Date End Date Fabian Arias MD [address] [place] [address] PCP - General Family Medicine 09/04/20 documented as of this encounter
--- OUTSIDE RECORDS SUMMARY | 2024-02-14 11:35 | XMS_ITS | Encounter Summary ---
Author Organization [facility] Address [address] [place] [address] Phone Care Team Providers Care Racing Secretary And Handicapper Name Role Phone Fabian Arias MD Primary Care Provider Encounter Details Date Type Department Care Team (Late st Contact Info) Description 08/05/2020 Orders Only [facility] [address] [place] [address] Social History Tobacco Use Types Packs/Day Years [...] on filedocumented in this encounter Care Teams Racing Secretary And Handicapper Relationship Specialty Start Date End Date Fabian Arias MD [address] [place] [address] PCP - General Family Medicine 09/04/20 documented as of this encounter
--- OUTSIDE RECORDS SUMMARY | 2024-02-14 11:35 | XMS_ITS | Encounter Summary ---
Author Organization [facility] [place] Address [address] [place] [address] Care Team Providers Care Chlorinator Operator Name Role Phone Fabian Arias MD Primary Care Provider + [phone] Encounter Details Date Type Department Care Team (Late st Contact Info) Description 11/29/2023 Treatment [facility] [address] [place] [address] Chata Garza, IUSS ANALYST-COTTON BAG SEWER [address] [place] [phone] Social History Tobacco Use Types Packs/Day Years Used Date Smoking Tobacco: Smoker, Cur rent Status Unknown Cigarettes Started: 977 Sex and Gender Information Value Date Recorded Sex Assigned at Not on file Gender Identity Not on file Sexual Orientation Not on file documented as of this encounter Miscellaneous Notes * Dialysis Note - Chata Garza APRN-COTTON BAG SEWER - 11/29/2023 8:47 AM CDT Date: November 29, 2023 Patient Name: Zamzam Garibay : 1940 Chart #: [id number] Sex: F This patient was personally seen for a complete visit as part of routine monthly dialysis care. A review of the dialysis treatment, blood pressure, estimated dry weight and recent lab values was made. These were discussed with the patient and staff as necessary. Treatment Data for 11/29/2023 started at:6:14 AM Dialyzer: 160NRe Optiflux Na: 137 mEq/L Bicarb: 29 mEq/L Dialysate: 2.0 K, 2.5 Ca, 1.0 Mg, 100 Dextrose (G2251) Dialysate/Machine Temp (prescribed): 37 C Dialysate/Machine Temp (actual): 37.1 C BFR (prescribed): 350 BFR (actual): 350 Prescribed time: 03:30 EDW: 51.5 kg Access Type: Active (In Use):AVGraft-Unknown/Right Upper Arm Pre Dialysis Vitals (for 11/29/2023 6:05 AM ) Pre BP (sit): 189/91 Pre Wt: 52.6 kg Temp: 97.9 F Post Dialysis Vitals (for 11/27/2023 9:51 AM ) Post BP (sit): 161/87 Post Wt: 51.6 kg Current Dialysis Vitals (for 11/29/2023 8:32 AM ) BP (sit): n/a AP(-) / TICKET MARKER: 182/333 Pulse: n/a Chairside data as of 11/29/2023 8:32 AM Last 3 Treatments 11/27/2023 11/25/2023 (Absent) 11/22/2023 EDW (kg) 51.5 52 Weight Pre (kg) 53.9 53.1 Weight Post (kg) 51.6 51.6 Dialytic Weight Loss (kg) -2.3 -1.5 EDW Deviation (kg) 0.1 -0.4 BP Sit Pre 214/91 172/92 BP Sit Post 161/87 126/61 UF Rate (mL/kg/hr) 13 10 Prescribed BFR 350 350 Average Delivered BFR 350 350 Prescribed Treatment Time 03:30 03:30 Actual Treatment Time 03:31 02:57 Last 3 Values 11/01/2023 09/30/2023 09/02/2023 Access Flow [id number] Treatment Medication Orders Medication Sig Start Date End Date Cinacalcet (Sensipar) 30 mg ORAL 3X Week Post Dialysis,with snack 04/12/2023 04/10/2024 Mircera 150 mcg IVP Every 2 weeks During Dialysis 11/04/2023 11/02/2024 Sodium Ferric Gluconate (Ferrlecit) 62.5 mg IVP Every Treatment During Dialysis 10/04/2023 10/02/2024 Vitamin D (Calcitriol) Oral 0.5 mcg ORAL 3X Week 05/08/2023 05/06/2024 FURNITURE UPHOLSTERER: Landon Calvert MD LOCATION: [phone] SCHEDULE: -- 1st Shift EDW: kg. DIALYZER: [...] hasn't missed any doses. Advanced Practitioner Subjective PRIMARY PRODUCTS INSPECTORS 11/29/2023: Patient seen while on dialysis. States that she is feeling good. Hospitalized last month for GI bleed. She still has some occasional black stools. Hgb has been stable around 8. Denies SOB, chest pain, cramping or dizziness. Leaving close to EDW. BP elevated. AVG functional; no reported issues. Continue plan of care. PRIMARY PRODUCTS INSPECTORS 09/13/2023: Patient seen on dialysis. 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 Will need new access placement. She is being set up forvein mapping and surgeon consult Anemia Assessment HEMOGLOBIN (G/DL) IN BLOOD g/dL 8.8 (11/27/23) 8.9 (11/20/23) 9.0 (11/13/23) 8.7 (11/06/23) 8.9 (10/30/23) PLATELETS 1000/mcL 303 (10/30/23) 453 (10/02/23) 388 [...] 139 (07/03/23) POTASSIUM (MMOL/L) IN SER/PLAS mEq/L 4.8 (11/20/23) 6.0 (10/30/23) 5.6 (10/02/23) 6.0 (09/04/23) 5.8 (08/21/23) BICARBONATE (CO2) mEq/L 23 (10/30/23) 24 (10/02/23) [...] 9.6 (07/03/23) PHOSPHATE (MG/DL) IN SER/PLAS mg/dL 5.8 (11/20/23) 8.7 (10/30/23) 9.6 (10/02/23) 8.3 (09/04/23) 8.0 (08/07/23) CALCIUM PHOSPHORUS PRODUCT, COR 76 (10/30/23) 85 (10/02/23) 79 (09/04/23) 70 (08/07/23) 79 (07/03/23) IPTH pg/mL 639 (10/30/23) 454 (08/07/23) 327 (06/05/23) 426 (05/01/23) 126 (04/05/23) Corrected Calcium is at goal. Phosphorous is above goal. Intact PTH is at goal. Financial Aid Administrator will adjust binders and vitamin D [...] candidate. age and co-morbidities Resuscitation Status Stable dialysis; K+ improved Has GI follow-up soon Post-run BP improved Continue plan CHATA GARZA NP [ Signed And locked electronically On 11/29/2023 at 08:57:20 AM ] Transcribed: CHATA GARZA ( 11/29/2023 ) documented in this encounter Plan of Treatment Not on file documented as of this encounter Visit Diagnoses Not on filedocumented in this encounter Care Teams Chlorinator Operator Relationship Specialty Start Date End Date Fabian Arias MD [address] [place] [address] PCP - General Family Medicine 09/04/20 documented as of this encounter
--- OUTSIDE RECORDS SUMMARY | 2024-02-14 11:35 | XMS_ITS | Encounter Summary ---
Author Organization [facility] [place] Address [address] [place] [address] Care Team Providers Care Academic Administrator Name Role Phone Fabian Arias MD Primary Care Provider + [phone] Encounter Details Date Type Department Care Team (Late st Contact Info) Description 12/04/2023 Treatment [facility] [place] [address] [place] [address] Chata Garza, CHIEF HUMAN RESOURCES OFFICER-SEISMIC PROSPECTING OBSERVER HELPER [address] [place] [phone] Social History Tobacco Use Types Packs/Day Years Used Date Smoking Tobacco: Smoker, Cur rent Status Unknown Cigarettes Started: 977 Sex and Gender Information Value Date Recorded Sex Assigned at Not on file Gender Identity Not on file Sexual Orientation Not on file documented as of this encounter Miscellaneous Notes * Dialysis Note - Chata Garza APRN-SEISMIC PROSPECTING OBSERVER HELPER - 12/04/2023 8:32 AM CDT Date: Dec 04, 2023 Patient Name: Zamzam Garibay : 1940 Chart #: [id number] Sex: F This patient was personally seen for a complete visit as part of routine monthly dialysis care. A review of the dialysis treatment, blood pressure, estimated dry weight and recent lab values was made. These were discussed with the patient and staff as necessary. Treatment Data for 12/04/2023 started at:6:15 AM Dialyzer: 160NRe Optiflux Na: 137 mEq/L Bicarb: 29 mEq/L Dialysate: 2.0 K, 2.5 Ca, 1.0 Mg, 100 Dextrose (G2251) Dialysate/Machine Temp (prescribed): 37 C Dialysate/Machine Temp (actual): 37 C BFR (prescribed): 350 BFR (actual): 350 Prescribed time: 03:30 EDW: 51.5 kg Access Type: Active (In Use):AVGraft-Unknown/Right Upper Arm Pre Dialysis Vitals (for 12/04/2023 6:07 AM ) Pre BP (sit): 176/70 Pre Wt: 52.4 kg Temp: 98.1 F Post Dialysis Vitals (for 12/02/2023 9:49 AM ) Post BP (sit): 162/81 Post Wt: 51.4 kg Current Dialysis Vitals (for 12/04/2023 8:00 AM ) BP (sit): n/a AP(-) / DAY HAUL OR FARM CHARTER BUS DRIVER: 201/156 Pulse: n/a Chairside data as of 12/04/2023 8:00 AM Last 3 Treatments 12/02/2023 11/29/2023 11/27/2023 EDW (kg) 51.5 51.5 51.5 Weight Pre (kg) 53.3 52.6 53.9 Weight Post (kg) 51.4 51.4 51.6 Dialytic Weight Loss (kg) -1.9 -1.2 -2.3 EDW Deviation (kg) -0.1 -0.1 0.1 BP Sit Pre 187/82 189/91 214/91 BP Sit Post 162/81 196/78 161/87 UF Rate (mL/kg/hr) 10 7 13 Prescribed BFR 350 350 350 Average Delivered BFR 320 350 350 Prescribed Treatment Time 03:30 03:30 03:30 Actual Treatment Time 03:32 03:32 03:31 Last 3 Values 12/02/2023 11/01/2023 09/30/2023 Access Flow [id number] Treatment Medication Orders Medication Sig Start Date End Date Cinacalcet (Sensipar) 30 mg ORAL 3X Week Post Dialysis,with snack 04/12/2023 04/10/2024 Mircera 200 mcg IVP Every 2 weeks During Dialysis 12/04/2023 12/02/2024 Sodium Ferric Gluconate (Ferrlecit) 62.5 mg IVP Every Treatment During Dialysis 10/04/2023 10/02/2024 Vitamin D (Calcitriol) Oral 0.5 mcg ORAL 3X Week 05/08/2023 05/06/2024 LAND MANAGEMENT FORESTER: Landon Calvert MD LOCATION: [phone] SCHEDULE: -- 1st Shift EDW: kg. DIALYZER: [...] hasn't missed any doses. Advanced Practitioner Subjective WIRE BRUSHER 12/04/2023: Spoke with patient on dialysis. Continues to have black stools on occasion. She has GIappointment scheduled in December. Encouraged her to connect with PCP for follow-up. She is planning tocall today. Started on Ferrlecit and on max Mircera. Tolerating dialysis. BP improved. She has beengetting to EDW. AVG has been working well. No changes today. Continue same plan. WIRE BRUSHER 11/29/2023: Patient seen while on dialysis. 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) and send for branch ligation at [facility] 07/08/22: vein branch, stenosis with angioplasty 07/04/21: [...] [place] and I will discusswith surgeon there 11/01/21: I will call [facility] for update on whether they have received report from her AVF surgery and plan moving forward for access revision/creation [facility] September 2021, need report [facility] appt 08/2021: JOHN AVF lower arm placed in [place], fistulagram [...] above goal. Intact PTH is at goal. Fig Bar Machine Operator will adjust binders and vitamin [...] and co-morbidities Resuscitation Status Stable dialysis; K+ better; phos improved Has GI follow-up soon Post-run BP improved Continue plan CHATA GARZA NP [ Signed And locked electronically On 12/04/2023 at 08:38:26 AM ] Transcribed: CHATA GARZA ( 12/04/2023 ) documented in this encounter Plan of Treatment Not on file documented as of this encounter Visit Diagnoses Not on filedocumented in this encounter Care Teams Academic Administrator Relationship Specialty Start Date End Date Fabian Arias MD [address] [place] [address] PCP - General Family Medicine 09/04/20 documented as of this encounter
[2024-02-14 11:55] LABS: Basophils Absolute Auto 0.05 K/uL (0.00-0.30); Basophils Percent Auto 0.8 % (0.0-3.0); Eosinophils Absolute Auto 0.06 K/uL (0.00-0.50); Hemoglobin* 9.3 gm/dL (12.0-16.0); Immature Granulocytes Abs Auto 0.01 K/uL (0.00-0.30); Immature Granulocytes Pct Auto 0.2 %; Lymphocytes Percent Auto 11.7 % (20-44); Mean Corpuscular HGB Conc 33 gm/dL (32-36); Mean Corpuscular Hemoglobin 26 pg (26-34); Mean Corpuscular Volume 77 fL (80-100); Monocytes Percent Auto 6.5 % (0.0-11.0); Neutrophils Percent Auto 79.8 % (42.0-72.0); Platelet Count* 183 K/uL (140-440); RDW Coefficient of Variation % 18.3 % (11.5-15.5); Red Blood Count 3.64 m/uL (4.00-5.20); White Blood Count* 5.97 K/uL (4.50-11.00)
[2024-02-14 11:56] LABS: Slide Review Reflex No
[2024-02-14 12:09] LABS: Chloride* 100 mmol/L (96-114); Sodium* 137 mmol/L (135-149)
[2024-02-14 12:10] LABS: Potassium* 4.2 mmol/L (3.6-5.1)
[2024-02-14 12:12] LABS: Alanine Aminotransferase* 11 U/L (4-35); Alkaline Phosphatase* 59 U/L (40-150); Anion Gap 8 mEq/L (7-15); Aspartate Amino Transferase* 30 U/L (12-35); Bilirubin Total* 0.9 mg/dL (0.1-1.5); Blood Urea Nitrogen* 22 mg/dL (7-30); Carbon Dioxide* 29 mmol/L (20-32); Creatinine* 5.9 mg/dL (0.5-1.5); Est. Creatinine Clearance* 6.05; Estimated Glomerular Filt Rate 7 ml/min; Glucose* 125 mg/dL (60-115); Total Protein* 6.6 g/dL (6.0-8.3)
[2024-02-14 12:13] LABS: Calcium* 9.7 mg/dL (8.4-10.6)
[2024-02-14] MEDS: LACTATED RINGERS 1000 ML 1,000 ML 500 ML IV (12:20)
[2024-02-14 12:24] LABS: Troponin I* 0.04 ng/mL (0.01-0.04)
[2024-02-14 12:28] LABS: PCR FLU A Negative PCR FLU A (Negative); PCR FLU B Negative PCR FLU B (Negative); PCR RSV Negative PCR RSV (Negative); SARS PCR* Negative SARS-CoV-2 (Negative)
[2024-02-14] MEDS: lisinopriL 20 MG TABLET 40 MG PO (12:44)
[2024-02-14 12:51] LABS: Fecal Occult Blood* Positive (Negative)
[2024-02-14 13:02] LABS: NT Pro B Type NatriureticPept* 339000 pg/mL
[2024-02-14 13:27] LABS: Appearance Urine Clear (Clear); Bilirubin Urine Negative (Negative); Blood Urine 1+ (Negative); Color Urine Yellow (Yellow); Glucose Urine Negative (Negative); Ketones Urine Trace (Negative); Leukocyte Esterase Urine Negative (Negative); Nitrite Urine Negative (Negative); Protein Urine 2+ (Negative); Specific Gravity Urine 1.015 (1.000-1.030); Urobilinogen Urine 0.2 (0.2-1.0); pH Urine 8.5 (5.0-8.5)
[2024-02-14 13:41] LABS: Bacteria Urine Few; RBC Urine 0-2 (0-2); Squamous Epithelial Cell Urine Few (None-Few)
--- NOTE | 2024-02-14 13:57 | CRLHL7_ITS ---
For Patients: As a result of the Century Cures Act, medical imaging exams and procedure reports are released immediately into your electronic medical record. You may view this report before your referring provider. If you have questions, please contact your health care provider. INDICATION: AMS. TECHNIQUE: Chest 1 views. COMPARISON: Chest radiograph 01/28/2023 FINDINGS: Heart and mediastinum: Cardiomegaly. Atherosclerosis of the aorta. Lungs and pleural spaces: Interstitial prominence bilaterally, right greater than left. Trace right pleural effusion. No pneumothorax Bones and soft tissues: No significant findings. IMPRESSION: Interstitial prominence throughout the lungs, right greater than left, likely represents pulmonary edema or atypical infection. Trace right pleural effusion. Dictated by Milly Jeff MD @ 02/14/2024 2:19:47 PM (Electronically Signed)
[2024-02-14 14:42] LABS: HCO3 VBG 28 mmol/L (21-28); PCO2 VBG 36 mmHG (40-50); PO2 VBG < 30.1 mmHG (25-47); pH VBG 7.505 (7.32-7.43)
[2024-02-14] MEDS: FUROSEMIDE 40 MG TABLET 80 MG PO (15:19)
[2024-02-14] MEDS: METOPROLOL SUCCINATE (XL) 25 MG TAB PO (15:19)
[2024-02-14] MEDS: METOPROLOL SUCCINATE (XL) 50 MG TAB PO (15:19)
--- NOTE | 2024-02-14 15:50 | CRLHL7_ITS ---
For Patients: As a result of the Century Cures Act, medical imaging exams and procedure reports are released immediately into your electronic medical record. You may view this report before your referring provider. If you have questions, please contact your health care provider. Indication: Altered mental status Technique: Multiplanar, multisequence MRI of the brain obtained without contrast. Comparison: CT head 02/14/2024 Findings: There is artifact from patient motion, degrading image quality. No evidence for recent hemorrhage or infarct. No midline shift, hydrocephalus or herniation. Mild generalized cerebral volume loss. Scattered FLAIR hyperintense foci throughout the supratentorial white matter and danilo, typical of chronic microangiopathy. Small area of encephalomalacia and gliosis at the medial left occipital lobe, compatible with remote infarct. Unremarkable midline structures. Major expected intracranial flow voids are visualized. Normal bone marrow signal. No obstructive paranasal sinus disease or significant mastoid effusion. Incidental right paramedian nasopharyngeal mucous retention cysts. Unremarkable orbits. Impression: 1. No evidence of acute intracranial abnormality. 2. 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 Dictated by Hannah Shea MD @ 02/14/2024 5:06:43 PM (Electronically Signed)
[2024-02-14] MEDS: HYDRALAZINE HCL 20 MG/ML inj 10 MG IVP (18:07)
== END 2024-02-14 18:20 | disposition other institution (70) ==
PROVIDERS: Emergency Provider Student in an Organized Health Care Education/Training Program; PCP Family Medicine
DX: R41.82 Altered mental status, unspecified (principal); R53.1 Weakness
CPT/HCPCS: 36415; 70450; 70551; 71045; 80053; 81001; 82270; 82803; 83605; 83880; 84484; 85025; 87086; 87631; 93005; 96374; 99284; 99285; A9270; J0360; J7120

== ENCOUNTER 2024-02-14 18:14 | Outpatient (CLI) | payer MEDICARE, SELFPAY ==
--- OUTSIDE RECORDS SUMMARY | 2024-02-15 23:17 | XMS_ITS | Encounter Summary ---
Author Organization [facility] Address [address] [place] [address] Care Team Providers Care Bed Setter Name Role Phone Fabian Arias MD Primary Care Provider + [phone] Encounter Details Date Type Department Care Team (Late st Contact Info) Description 12/04/2023 Orders Only [facility] [place] [address] [place] [address] Landon Calvert MD [address] [place] [address] Social History Tobacco Use Types [...] * [facility]ra CELIA Lab Results (12/04/2023) Pathologist [facility] spKt/V Gotch 2.31 [facility] nPCR_HD 1.01 [facility] eKt/V (Tattersall) 1.94 [facility] eKdrt/V 1.95 [facility] spKt/V (Daugirdas II) 2.26 [facility] PCR 36.06 [facility] WSTDKT/V 2.8 [facility] eKt/V Gotch 1.95 [facility] eNPCR 0.86 [facility] 12/04/2023 12/04/2023 Celia Ordering Provider LAB BLOOD ORDERABLE S [facility] Contact Performing lab Unknown, [place] * IMMUNO CHEMISTRY (12/04/2023) Pathologist [facility] Hep B Surface Ag Negative Negative [facility] 12/04/2023 12/05/2023 4:1 9 PM CDT Narrative [facility] - 12/05/2023 Unless otherwise specified, test(s) performed at: [facility], [address] [place] [address], [place] [address] AUGER MILL OPERATOR: Vicente Flores M.D., Ph.D For any questions, please call customer service at FREQUENCY:MONTHLY Resulting Agency Comment Specimen source: Plasma Landon Calvert MD LAB BLOOD ORDERABLES [facility] See order comments or contact performing lab Unknown, [place] * (ABNORMAL) HEMATOLOGY (12/04/2023) Pathologist [facility] WBC 6.90 4.80 - 10.80 1000/mcL [facility]ra [...] 12/04/2023 12/05/2023 12: 06 PM CDT Narrative [facility] - 12/05/2023 Unless otherwise specified, test(s) performed at: [facility] [employer] [facility], [address] [place] [address], [place] [address] AUGER MILL OPERATOR: Vicente Flores M.D., Ph.D For any questions, please call customer service at FREQUENCY:MONTHLY Resulting Agency Comment Specimen source: Blood Landon Calvert MD LAB BLOOD ORDERABLES [facility] See order comments or contact performing lab Unknown, [place] * (ABNORMAL) HD KINETICS (12/04/2023) % Urea Reduction 85(H) 65 - 80 % [facility] 12/04/2023 12/05/2023 10: 43 AM CDT Narrative Resulting Agency Comment Specimen source: Plasma Landon Calvert MD LAB BLOOD ORDERABLES [facility] See order comments or contact performing lab Unknown, [place] * POST CHEMISTRY (12/04/2023) BUN Post Dialysis 6 6 - 19 mg/dL [facility] 12/04/2023 12/05/2023 10: 43 AM CDT Narrative [facility] - 12/05/2023 Unless otherwise specified, test(s) performed at: [facility], [address] [place] [address], [place] [address] AUGER MILL OPERATOR: Vicente Flores M.D., Ph.D For any questions, please call customer service at FREQUENCY:MONTHLY Resulting Agency Comment Specimen source: Plasma Landon Calvert MD LAB BLOOD ORDERABLES [facility] See order comments or contact performing lab Unknown, [place] * (ABNORMAL) [facility] Chemistry (12/04/2023) BUN 41(H) 6 [...] 12/04/2023 12/05/2023 11: 35 AM CDT Narrative [facility]RA [facility] - 12/05/2023 Unless otherwise specified, test(s) performed at: [facility], [address] [place] [address], [place] [address] AUGER MILL OPERATOR: Vicente Flores M.D., Ph.D For any questions, please call customer service at FREQUENCY:MONTHLY Resulting Agency Comment Specimen source: Serum Landon Calvert MD LAB BLOOD ORDERABLES [facility] See order comments or contact performing lab Unknown, [place] documented in this encounter Visit Diagnoses Not on filedocumented in this encounter Care Teams Bed Setter Relationship Specialty Start Date End Date Fabian Arias MD [address] [place] [address] PCP - General Family Medicine 09/04/20 documented as of this encounter
--- OUTSIDE RECORDS SUMMARY | 2024-02-15 23:17 | XMS_ITS | Encounter Summary ---
Author Organization [facility] Address [address] [place] [address] Care Team Providers Care Cellophaner Name Role Phone Fabian Arias MD Primary Care Provider + [phone] Encounter Details Date Type Department Care Team (Late st Contact Info) Description 02/05/2024 Orders Only [facility] [place] [address] [place] [address] Landon Calvert MD [address] [place] [address] Social History Tobacco Use Types [...] [facility] eKt/V ([place]) 1.51 [facility] eKt/V Gotch 1.52 [facility] eKdrt/V 1.52 [facility] nPCR_HD 0.99 [facility] PCR 34.44 [facility] spKt/V Gotch 1.82 [facility] [place] spKt/V (Daugirdas II) 1.79 [facility] eNPCR 0.86 [facility] WSTDKT/V 2.6 [facility] 02/05/2024 02/05/2024 Ordering Provider LAB BLOOD ORDERABLE S [facility] Contact Performing lab Unknown, [place] * HD KINETICS (02/05/2024) Pathologist [facility] Emergency Department % Urea Reduction 79 65 - 80 % [facility] 02/05/2024 02/07/2024 4:3 6 AM CDT Narrative [facility] - 02/07/2024 Unless otherwise specified, test(s) performed at: [facility], [address] [place] [address], [place] [address] SAP PI DEVELOPER: Vicente Flores M.D., Ph.D For any questions, please call customer service at FREQUENCY:MONTHLY Resulting Agency Comment Specimen source: Plasma Landon Calvert MD LAB BLOOD ORDERABLES [facility] See order comments [...] 02/05/2024 02/07/2024 6:1 5 AM CDT Narrative [facility] - 02/07/2024 Unless otherwise specified, test(s) performed at: [facility], [address] [place] [address], [place] [address] SAP PI DEVELOPER: Vicente Flores M.D., Ph.D For any questions, please call customer service at FREQUENCY:MONTHLY Resulting Agency Comment Specimen source: Serum Landon Calvert MD LAB BLOOD ORDERABLES [facility] See order comments or contact performing lab Unknown, [place] * IMMUNO CHEMISTRY (02/05/2024) Hep B Surface Ag Negative Negative [facility] 02/05/2024 02/07/2024 5:4 7 AM CDT Narrative Resulting Agency Comment Specimen source: Plasma Landon Calvert MD LAB BLOOD ORDERABLES Performing Organization Address [facility] de Phone Number [facility] See order comments or contact performing lab Unknown, [place] * (ABNORMAL) [facility] (02/05/2024) PTH 289(H) 16 - 80 pg/mL [facility] 02/05/2024 02/07/2024 5:4 7 AM CDT Narrative [facility] - 02/07/2024 Unless otherwise specified, test(s) performed at: [facility], [address] [place] [address], [place] [address] SAP PI DEVELOPER: Vicente Flores M.D., Ph.D For any questions, please call customer service at FREQUENCY:MONTHLY Resulting Agency Comment Specimen source: Plasma Landon Calvert MD LAB BLOOD ORDERABLES Performing Organization Address [facility] de Phone Number [facility] See order comments or contact performing lab Unknown, [place] * POST CHEMISTRY (02/05/2024) Pathologist [facility] Emergency Department BUN Post Dialysis 10 6 - 19 mg/dL [facility] 02/05/2024 02/07/2024 4:3 6 AM CDT Narrative [facility] - 02/07/2024 Unless otherwise specified, test(s) performed at: [facility], [address] [place] [address], [place] [address] SAP PI DEVELOPER: Vicente Flores M.D., Ph.D For any questions, please call customer service at FREQUENCY:MONTHLY Resulting Agency Comment Specimen source: Plasma Landon Calvert MD LAB BLOOD ORDERABLES Performing Organization Address [facility] de Phone Number [facility] See order [...] 02/07/2024 Unless otherwise specified, test(s) performed at: [facility], [address] [place] [address], [place] [address] SAP PI DEVELOPER: Vicente Flores M.D., Ph.D For any questions, please call customer service at FREQUENCY:MONTHLY Resulting Agency Comment Specimen source: Blood Landon Calvert MD LAB BLOOD ORDERABLES [facility] See order comments or contact performing lab Unknown, [place] documented in this encounter Visit Diagnoses Not on filedocumented in this encounter Care Teams Cellophaner Relationship Specialty Start Date End Date Fabian Arias MD [address] [place] [address] PCP - General Family Medicine 09/04/20 documented as of this encounter
--- OUTSIDE RECORDS SUMMARY | 2024-02-15 23:17 | XMS_ITS | Encounter Summary ---
Author Organization [facility] Address [address] [place] [address] Care Team Providers Care Forge Tender Name Role Phone Fabian Arias MD Primary Care Provider + [phone] Encounter Details Date Type Department Care Team (Late st Contact Info) Description 01/17/2024 Orders Only [facility] [place] [address] [place] [address] Landon Calvert MD [address] [place] [address] Social History Tobacco Use Types [...] (01/17/2024) Hemoglobin 12.8 12.0 - 16.0 g/dL [facility] Hemoglobin x 3 38.4 36.0 - 48.0 % [facility] 01/17/2024 01/18/2024 7:1 3 AM CDT Narrative [facility] - 01/18/2024 Unless otherwise specified, test(s) performed at: [facility], [address] [facility], [place] [address] RESEARCH GROUP DIRECTOR: Vicente Flores M.D., Ph.D For any questions, please call customer service at FREQUENCY:OTHER Resulting Agency Comment Specimen source: Blood Landon Calvert MD LAB BLOOD ORDERABLES [facility] See order comments or contact performing lab Unknown, [place] documented in this encounter Visit Diagnoses Not on filedocumented in this encounter Care Teams Forge Tender Relationship Specialty Start Date End Date Fabian Arias MD [address] [place] [address] PCP - General Family Medicine 09/04/20 documented as of this encounter
--- OUTSIDE RECORDS SUMMARY | 2024-02-15 23:17 | XMS_ITS | Encounter Summary ---
Author Organization [facility] Address [address] [place] [address] Care Team Providers Care Slab Tripper Name Role Phone Fabian Arias MD Primary Care Provider + [phone] Encounter Details Date Type Department Care Team (Late st Contact Info) Description 01/01/2024 Orders Only [facility] [place] [address] [place] [address] Landon Calvert MD [address] [place] [address] Social History Tobacco Use Types [...] [facility] Results (01/01/2024) PCR 35.72 [facility] spKt/V Gotch 1.95 [facility] [place] eNPCR 0.87 [facility] WSTDKT/V 2.6 [facility] eKt/V Gotch 1.65 [facility] [place] nPCR_HD 1.00 [facility] eKdrt/V 1.65 [facility] spKt/V (Daugirdas II) 1.90 [facility] eKt/V (T[place]all) 1.63 [facility] 01/01/2024 01/01/2024 Celia Ordering Provider LAB BLOOD ORDERABLE S [facility] Contact Performing lab Unknown, [place] * HD KINETICS (01/01/2024) Pathologist [facility] % Urea Reduction 80 65 - 80 % [facility] 01/01/2024 01/02/2024 4:3 8 AM CDT Narrative [facility] - 01/02/2024 Unless otherwise specified, test(s) performed at: [facility], [address] [place] [address], [place] [address] CUSTOMER SUCCESS REPRESENTATIVE: Vicente Flores M.D., Ph.D For any questions, please call customer service at FREQUENCY:MONTHLY Resulting Agency Comment Specimen source: Plasma Landon Calvert MD LAB BLOOD ORDERABLES [facility] See order [...] 01/01/2024 01/02/2024 6:1 6 AM CDT Narrative [facility] - 01/02/2024 Unless otherwise specified, test(s) performed at: [facility], [address] [place] [address], [place] [address] CUSTOMER SUCCESS REPRESENTATIVE: Vicente Flores M.D., Ph.D For any questions, please call customer service at FREQUENCY:MONTHLY Resulting Agency Comment Specimen source: Serum Landon Calvert MD LAB BLOOD ORDERABLES [facility] See order [...] 01/02/2024 Unless otherwise specified, test(s) performed at: [facility], [address] [place] [address], [place] [address] CUSTOMER SUCCESS REPRESENTATIVE: Vicente Flores M.D., Ph.D For any questions, please call customer service at FREQUENCY:MONTHLY Resulting Agency Comment Specimen source: Blood Landon Calvert MD LAB BLOOD ORDERABLES Performing Organization Address [facility] de Phone Number [facility] See order comments or contact performing lab Unknown, [place] * IMMUNO CHEMISTRY (01/01/2024) Hep B Surface Ag Negative Negative [facility] 01/01/2024 01/02/2024 5:0 1 AM CDT Narrative [facility] - 01/02/2024 Unless otherwise specified, test(s) performed at: [facility], [address] [place] [address], [place] [address] CUSTOMER SUCCESS REPRESENTATIVE: Vicente Flores M.D., Ph.D For any questions, please call customer service at FREQUENCY:MONTHLY Resulting Agency Comment Specimen source: Plasma Landon Calvert MD LAB BLOOD ORDERABLES [facility] See order comments or contact performing lab Unknown, [place] * POST CHEMISTRY (01/01/2024) BUN Post Dialysis 9 6 - 19 mg/dL [facility] 01/01/2024 01/02/2024 4:3 8 AM CDT Narrative [facility] - 01/02/2024 Unless otherwise specified, test(s) performed at: [facility], [address] [place] [address], [place] [address] CUSTOMER SUCCESS REPRESENTATIVE: Vicente Flores M.D., Ph.D For any questions, please call customer service at FREQUENCY:MONTHLY Resulting Agency Comment Specimen source: Plasma Landon Calvert MD LAB BLOOD ORDERABLES [facility] See order comments or contact performing lab Unknown, [place] documented in this encounter Visit Diagnoses Not on filedocumented in this encounter Care Teams Slab Tripper Relationship Specialty Start Date End Date Fabian Arias MD [address] [place] [address] PCP - General Family Medicine 09/04/20 documented as of this encounter
--- OUTSIDE RECORDS SUMMARY | 2024-02-15 23:17 | XMS_ITS | Encounter Summary ---
Author Organization [facility] Address [address] [place] [address] Care Team Providers Care Civil Lawyer Name Role Phone Fabian Arias MD Primary Care Provider + [phone] Encounter Details Date Type Department Care Team (Late st Contact Info) Description 01/08/2024 Orders Only [facility] [place] [address] [place] [address] Landon Calvert MD [address] [place] [address] Social History Tobacco Use Types [...] (01/08/2024) Hemoglobin 12.9 12.0 - 16.0 g/dL [facility] Hemoglobin x 3 38.7 36.0 - 48.0 % [facility] 01/08/2024 01/09/2024 5:5 1 PM CDT Narrative [facility] - 01/09/2024 Unless otherwise specified, test(s) performed at: [facility], [address] [facility], [place] [address] SWEATER DESIGNER: Vicente Flores M.D., Ph.D For any questions, please call customer service at FREQUENCY:OTHER Resulting Agency Comment Specimen source: Blood Landon Calvert MD LAB BLOOD ORDERABLES [facility] See order comments or contact performing lab Unknown, [place] documented in this encounter Visit Diagnoses Not on filedocumented in this encounter Care Teams Civil Lawyer Relationship Specialty Start Date End Date Fabian Arias MD [address] [place] [address] PCP - General Family Medicine 09/04/20 documented as of this encounter
--- OUTSIDE RECORDS SUMMARY | 2024-02-15 23:17 | XMS_ITS | Encounter Summary ---
Author Organization [facility] Address [address] [place] [address] Care Team Providers Care Intelligence Agent Name Role Phone Fabian Arias MD Primary Care Provider + [phone] Encounter Details Date Type Department Care Team (Late st Contact Info) Description 12/11/2023 Orders Only [facility] [place] [address] [place] [address] Landon Calvert MD [address] [place] [address] Social History Tobacco Use Types [...] 12/12/2023 Unless otherwise specified, test(s) performed at: [facility], [address] [place] [address] DRY CLEANER PRESSER: Vicente Flores M.D., Ph.D For any questions, please call customer service at FREQUENCY:OTHER Resulting Agency Comment Specimen source: Blood Landon aClvert MD LAB BLOOD ORDERABLES [facility] See order comments or contact performing lab Unknown, [place] documented in this encounter Visit Diagnoses Not on filedocumented in this encounter Care Teams Intelligence Agent Relationship Specialty Start Date End Date Fabian Arias MD [address] [place] [address] PCP - General Family Medicine 09/04/20 documented as of this encounter
--- OUTSIDE RECORDS SUMMARY | 2024-02-15 23:17 | XMS_ITS | Encounter Summary ---
Author Organization [facility] Address [address] [place] [address] Care Team Providers Care Electric Blanket Packer Name Role Phone Fabian Arias MD Primary Care Provider + [phone] Encounter Details Date Type Department Care Team (Late st Contact Info) Description 12/25/2023 Orders Only [facility] [place] [address] [place] [address] Landon Calvert MD [address] [place] [address] Social History Tobacco Use [...] 12/26/2023 Unless otherwise specified, test(s) performed at: [facility], [address] [place] [address] QUALITY IMPROVEMENT ANALYST: Vicente Flores M.D., Ph.D For any questions, please call customer service at FREQUENCY:OTHER Resulting Agency Comment Specimen source: Serum Landon Calvert MD LAB BLOOD ORDERABLES Performing Organization Address [facility] Co de Phone [facility] See order comments or contact performing lab Unknown, [place] * (ABNORMAL) HEMATOLOGY (12/25/2023) Hemoglobin 10.6(L) 12.0 - 16.0 g/dL [facility] Hemoglobin x 3 31.8(L) 36.0 - 48.0 % [facility] 12/25/2023 12/26/2023 12: 07 PM CDT Narrative [facility] - 12/26/2023 Unless otherwise specified, test(s) performed at: [facility], [address] [place] [address] QUALITY IMPROVEMENT ANALYST: Vicente Flores M.D., Ph.D For any questions, please call customer service at FREQUENCY:OTHER Resulting Agency Comment Specimen source: Blood Landon Calvert MD LAB BLOOD ORDERABLES Performing Organization Address [email or web address] de Phone Number [facility] See order comments or contact performing lab Unknown, [place] documented in this encounter Visit Diagnoses Not on filedocumented in this encounter Care Teams Electric Blanket Packer Relationship Specialty Start Date End Date Fabian Arias MD [address] [place] [address] PCP - General Family Medicine 09/04/20 documented as of this encounter
--- OUTSIDE RECORDS SUMMARY | 2024-02-15 23:17 | XMS_ITS | Encounter Summary ---
Author Organization [facility] Address [address] [place] [address] Care Team Providers Care Architectural Intern Name Role Phone Fabian Arias MD Primary Care Provider + [phone] Encounter Details Date Type Department Care Team (Late st Contact Info) Description 12/23/2023 Orders Only [facility] [place] [address] [place] [address] Landon Calvert MD [address] [place] [address] Social History Tobacco Use Types [...] (12/23/2023) Phosphorus 5.7(H) 2.6 - 4.5 mg/dL [facility] 12/23/2023 12/24/2023 11: 33 AM CDT Narrative [facility] - 12/24/2023 Unless otherwise specified, test(s) performed at: [facility], [address] [place] [address] NEWSPAPER SUBSCRIPTION SOLICITOR: Vicente Flores M.D., Ph.D For any questions, please call customer service at FREQUENCY:OTHER Resulting Agency Comment Specimen source: Serum Landon Calvert MD LAB BLOOD ORDERABLES [facility] See order comments or contact performing lab Unknown, [place] documented in this encounter Visit Diagnoses Not on filedocumented in this encounter Care Teams Architectural Intern Relationship Specialty Start Date End Date Fabian Arisa MD [address] [place] [address] PCP - General Family Medicine 09/04/20 documented as of this encounter
--- OUTSIDE RECORDS SUMMARY | 2024-02-15 23:17 | XMS_ITS | Encounter Summary ---
Author Organization [facility] Address [address] [place] [address] Care Team Providers Care Associate Professor Of Theatre Name Role Phone Fabian Arias MD Primary Care Provider + [phone] Encounter Details Date Type Department Care Team (Late st Contact Info) Description 01/29/2024 Orders Only [facility] [place] [address] [place] [address] Landon Calvert MD [address] [place] [address] Social History Tobacco Use Types [...] 01/30/2024 Unless otherwise specified, test(s) performed at: [facility], [address] [facility], [place] [address] BACK HOE OPERATOR: Vicente Flores M.D., Ph.D For any questions, please call customer service at FREQUENCY:OTHER Resulting Agency Comment Specimen source: Blood Landon Calvert MD LAB BLOOD ORDERABLES [facility] See order comments or contact performing lab Unknown, [place] documented in this encounter Visit Diagnoses Not on filedocumented in this encounter Care Teams Associate Professor Of Theatre Relationship Specialty Start Date End Date Fabian Arias MD [address] [place] [address] PCP - General Family Medicine 09/04/20 documented as of this encounter
--- OUTSIDE RECORDS SUMMARY | 2024-02-15 23:17 | XMS_ITS | Encounter Summary ---
Author Organization [facility] [place] Address [address] [place] [address] Care Team Providers Care Lmsw Name Role Phone Fabian Arias MD Primary Care Provider + [phone] Encounter Details Date Type Department Care Team (Late st Contact Info) Description 01/20/2024 Treatment [facility] [place] [address] [place] [address] Chata Garza, CATARACT LENS GENERATOR-MIXED LIVESTOCK FARMER [address] [place] [address] Social History Tobacco Use Types Packs/Day Years Used Date Smoking Tobacco: Smoker, Cur rent Status Unknown Cigarettes Started: 977 Sex and Gender Information Value Date Recorded Sex Assigned at Not on file Gender Identity Not on file Sexual Orientation Not on file documented as of this encounter Miscellaneous Notes * Dialysis Note - Chata Garza APRN-MIXED LIVESTOCK FARMER - 01/20/2024 8:26 AM CDT Date: Jan 20, 2024 Patient Name: Zamzam Garibay : 1940 Chart #: [id number] Sex: F This patient was personally seen [...] AM ) BP (sit): 162/88 AP(-) / NURSING STUDENT: 209/205 Pulse: 74 Chairside data as of [...] 3 Values 12/30/2023 12/02/2023 11/01/2023 Access Flow [phone] Treatment Medication Orders Medication Sig Start Date End Date Cinacalcet (Sensipar) 30 mg ORAL 3X Week Post Dialysis,with snack 04/12/2023 04/10/2024 Sodium Ferric Gluconate (Ferrlecit) 62.5 mg IVP Every Treatment During Dialysis 10/04/2023 10/02/2024 Vitamin D (Calcitriol) Oral 0.5 mcg ORAL 3X Week 05/08/2023 05/06/2024 COMMUNICATIONS SCIENTIST: Landon Calvert MD LOCATION: [phone] SCHEDULE: -W- 1st Shift EDW: kg. DIALYZER: [...] improved and no SOB. Advanced Practitioner Subjective DOOR WORKER 01/20/2024: Patient seen while on dialysis. Reports [...] no reported issues. Continue plan of care. DOOR WORKER 12/04/2023: Spoke with patient on dialysis. 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 Will send back to [facility] for re-evaluation and I will discusswith surgeon there 11/01/21: I will call [facility] for update on whether they have received report from her AVF surgery and plan moving forward for access revision/creation [facility] September 2021, need report [facility] appt 08/2021: LUE AVF lower arm placed [...] above goal. Intact PTH is at goal. Pole Climber will adjust binders and vitamin D per [...] on filedocumented in this encounter Care Teams Lmsw Relationship Specialty Start Date End Date Fabian Arias MD [address] [place] [address] PCP - General Family Medicine 09/04/20 documented as of this encounter
--- OUTSIDE RECORDS SUMMARY | 2024-02-15 23:17 | XMS_ITS | Encounter Summary ---
Author Organization [facility] Address [address] [place] [address] Care Team Providers Care Law Clerk Name Role Phone Fabian Arias MD Primary Care Provider + [phone] Encounter Details Date Type Department Care Team (Late st Contact Info) Description 01/22/2024 Orders Only [facility] [place] [address] [place] [address] Landon Calvert MD [address] [place] [address] Social History Tobacco Use Types [...] (01/22/2024) Hemoglobin 13.1 12.0 - 16.0 g/dL [facility] Hemoglobin x 3 39.3 36.0 - 48.0 % [facility] 01/22/2024 01/23/2024 3:3 8 AM CDT Narrative [facility] - 01/23/2024 Unless otherwise specified, test(s) performed at: [facility], [address] [facility], [place] [address] INSPECTOR FINAL ASSEMBLY ELECTRICAL: Vicente Flores M.D., Ph.D For any questions, please call customer service at FREQUENCY:OTHER Resulting Agency Comment Specimen source: Blood Landon Calvert MD LAB BLOOD ORDERABLES [facility] See order comments or contact performing lab Unknown, [place] documented in this encounter Visit Diagnoses Not on filedocumented in this encounter Care Teams Law Clerk Relationship Specialty Start Date End Date Fabian Arias MD [address] [place] [address] PCP - General Family Medicine 09/04/20 documented as of this encounter
--- OUTSIDE RECORDS SUMMARY | 2024-02-15 23:17 | XMS_ITS | Clinical Summary ---
Author Organization [facility] Facility Address [address] [place] [id number] Care Team Providers Care Medical Reimbursement Manager Name Role Phone Fabian Arias MD Primary Care Provider + [phone] Allergies Active Allergy Reactions Criticality Noted Date [...] Date Type Department Care Team Description 02/14/2024 Orders Only [facility] [address] [place] [phone] Landon Calvert MD 02/14/2024 Treatment [facility] [address] [place] [phone] Landon Calvert MD 02/05/2024 Orders Only [facility] [address] [place] [address] Landon Calvert MD 01/29/2024 Orders Only [facility] [address] [place] [address] Landon Calvert MD 01/29/2024 Treatment [facility] [place] [address] [place] [address] Landon Calvert MD 01/22/2024 Orders Only [facility] [address] [facility] [place] [address] Landon Calvert MD 01/20/2024 Treatment [facility] [place] [facility] [address] [place] [address] Christa Garza APRN-VENUE MANAGER 01/17/2024 Orders Only [facility] [address] [place] [address] Landon Calvert MD 01/08/2024 Orders Only [facility] [address] [place] [address] Landon Calvert MD 01/06/2024 Orders Only [facility] [place] [address] [place] [address] Landon Calvert MD 01/01/2024 Orders Only [facility] [address] [place] [address] Landon Calvert MD 12/25/2023 Orders Only [facility] [address] [place] [address] Landon Calvert MD 12/25/2023 Treatment [facility] [place] [facility] [address] [place] [address] Landon Calvert MD 12/23/2023 Orders Only [facility] [address] [place], [place] [id number] Landon Calvert MD 12/18/2023 Orders Only [facility] [place] [address] [place], [place] [address] Landon Calvert MD 12/11/2023 Orders Only [facility] [place] [address] [place] [address] Landon Calvert MD 12/04/2023 Orders Only [facility] [place] [address] [place] [address] Landon Calvert MD 12/04/2023 Treatment [facility] [facility] [address] [place] [address] Christa Garza, TENTS ASSEMBLER-VENUE MANAGER 11/29/2023 Treatment [facility] [place] [address] [place] [address] Christa Garza, TENTS ASSEMBLER-VENUE MANAGER 11/27/2023 Orders Only [facility] [place] [address] [place] [address] Landon Calvert MD 11/20/2023 Orders Only [facility] [place] [address] [facility] [place] [address] Landon Calvert MD from Last 3 Months [...] Comments Blood Pressure 130/80 09/05/2020 1:08 PM MOLD CUTTING MACHINE OPERATOR Pulse 87 09/05/2020 1:08 PM MOLD CUTTING MACHINE OPERATOR Temperature 36.6 ??C (97.8 ??F) 06/02/2020 12:[address] Respiratory Rate - - Oxygen Saturation 98% 09/05/2020 1:08 PM MOLD CUTTING MACHINE OPERATOR Inhaled Oxygen Concentration - - Weight 48.5 kg (107 lb) 09/05/2020 1:08 PM MOLD CUTTING MACHINE OPERATOR Height 160 cm (5' 3) 09/05/2020 1:08 PM MOLD CUTTING MACHINE OPERATOR Body Mass Index 18.95 09/05/2020 1:08 PM MOLD CUTTING MACHINE OPERATOR Plan of Treatment Health Maintenance Due Date Last Done Comments Hepatitis B Vaccine (1 of 5 - Risk Dialysis 4-dose series) 1960 Pneumococcal Vaccine: 65+ Years (2 of 2 - PCV) 012 11/02/2010 Influenza Vaccine (#1) 2024 Procedures Procedure Name Priority Date/Time Associated Diagnosis Comments HEMATOLOGY Routine 02/14/2024 [facility] RESULTS Routine 02/05/2024 HD [...] 12/23/2023 HEMATOLOGY Routine 12/18/2023 HEMATOLOGY Routine 12/11/2023 [facility] RESULTS Routine 12/04/2023 IMMUNO CHEMISTRY Routine 12/04/2023 HEMATOLOGY Routine 12/04/2023 HD KINETICS Routine 12/04/2023 POST CHEMISTRY Routine 12/04/2023 CHEMISTRY Routine 12/04/2023 HEMATOLOGY Routine 11/27/2023 HEMATOLOGY Routine 11/20/2023 CHEMISTRY Routine 11/20/2023 from Last 3 Months Results * (ABNORMAL) HEMATOLOGY (02/14/2024) Only the most recent of13 resultswithin the time period is included. Hemoglobin 10.1(L) 12.0 - 16.0 g/dL [facility] Hemoglobin x 3 30.3(L) 36.0 - 48.0 % [facility] 02/14/2024 02/15/2024 10: 08 AM CDT Narrative [facility] - 02/15/2024 Unless otherwise specified, test(s) performed at: [facility], [address] [place] [address], [place] [address] OUTSIDE PLANT FIELD ENGINEER: Vicente Flores M.D., Ph.D For any questions, please call customer service at FREQUENCY:OTHER Resulting Agency Comment Specimen source: Blood Landon Calvert MD LAB BLOOD ORDERABLES Performing Organization Address [facility] Co de Phone Number [facility] See order comments or contact performing lab Unknown, [place] * HD KINETICS (02/05/2024) Only the most recent of4 resultswithin the time period is included. % Urea Reduction 79 65 - 80 % [facility] 02/05/2024 02/07/2024 4:3 6 AM CDT Narrative [facility] - 02/07/2024 Unless otherwise specified, test(s) performed at: [facility], [address] [place] [address], [place] [address] OUTSIDE PLANT FIELD ENGINEER: Vicente Flores M.D., Ph.D For any questions, please call customer service at FREQUENCY:MONTHLY Resulting Agency Comment Specimen source: Plasma Landon Calvert MD LAB BLOOD ORDERABLES Performing Organization Address [facility]/ZIP Co de Phone Number [facility] See order comments or contact performing lab Unknown, [place] * POST CHEMISTRY (02/05/2024) Only the most recent of4 resultswithin the time period is included. BUN Post Dialysis 10 6 - 19 mg/dL [facility] 02/05/2024 02/07/2024 4:3 6 AM CDT Narrative [place] [facility] - 02/07/2024 Unless otherwise specified, test(s) performed at: [facility], [facility] [place] [address] OUTSIDE PLANT FIELD ENGINEER: Vicente Flores M.D., Ph.D For any questions, please call customer service at FREQUENCY:MONTHLY Resulting Agency Comment Specimen source: Plasma Landon Calvert MD LAB BLOOD ORDERABLES Performing Organization Address City/[facility]/ZIP Co de Phone Number [facility] See order comments or contact performing lab Unknown, [place] * IMMUNO CHEMISTRY (02/05/2024) Only the most recent of3 resultswithin the time period is included. Pathologist [facility] Hep B Surface Ag Negative Negative [facility] 02/05/2024 02/07/2024 5:4 7 AM CDT Narrative Resulting Agency Comment Specimen source: Plasma Landon Calvert MD LAB BLOOD ORDERABLES Performing Organization Address [facility] Co de Phone Number [facility] See order comments or contact performing lab Unknown, [place] * (ABNORMAL) [facility] (02/05/2024) Only the most recent of8 resultswithin the time period is included. Pathologist [facility] BUN 47(H) 6 - 19 mg/dL [facility] [...] 02/05/2024 02/07/2024 6:1 5 AM CDT Narrative [facility] - 02/07/2024 Unless otherwise specified, test(s) performed at: [facility], [address] [place] [address], [place] [address] OUTSIDE [employer]ANT FIELD ENGINEER: Vicente Flores M.D., Ph.D For any questions, please call customer service at FREQUENCY:MONTHLY Resulting Agency Comment Specimen source: Serum Landon Calvert MD LAB BLOOD ORDERABLES Performing Organization Address City/State/[facility] Co de Phone Number [facility] See order comments or contact performing lab Unknown, [place] * [facility] Results (02/05/2024) Only the most recent of4 resultswithin the time period is included. eKt/V (Tattersall) 1.51 [facility] eKt/V Gotch 1.52 [facility] eKdrt/V 1.52 [facility] nPCR_HD 0.99 [facility] PCR 34.44 [facility] spKt/V Gotch 1.82 [facility] spKt/V (Daugirdas II) 1.79 [facility] eNPCR 0.86 [facility] WSTDKT/V 2.6 [facility] 02/05/2024 02/05/2024 Loyd Ordering Provider LAB BLOOD ORDERABLE [facility] Contact Performing lab Unknown, [place] from Last 3 Months Care Teams Medical Reimbursement Manager Relationship Specialty Start Date End Date Fabian Arias MD [address] [place] [address] PCP - General Family Medicine 09/04/20
--- OUTSIDE RECORDS SUMMARY | 2024-02-15 23:17 | XMS_ITS | Clinical Summary ---
Author Organization [facility] Address [place], [place] [address] Care Team Providers Care Managed Care Nurse Name Role Phone Louis Reyes MD Primary Care Provider [phone] Allergies Active Allergy Reactions Criticality Noted Date [...] 7:25 PM CDT - Present Hospital Encounter [facility] [address] [place] [address] [facility], Hospitalist samantha Chou, MD Merrill Brown Ellen Elizabeth, MD from Last 3 Months Social History [...] Sign Reading Time Taken Comments Blood Pressure 178/79 02/15/2024 9:00 PM CDT Pulse 92 02/15/2024 8:57 PM CDT Temperature 36.8 ??C (98.2 ??F) 02/15/2024 8:57 PM CD T Respiratory Rate 20 02/15/2024 8:57 PM CDT Oxygen Saturation 93% 02/15/2024 8:57 PM CDT Inhaled Oxygen Concentration - - Weight 50.8 kg (112 lb) 11/01/2023 3:55 PM CDT Height 157.5 cm (5' 2) 10/04/2023 5:01 PM CDT Body Mass Index 20.49 10/04/2023 5:01 PM CDT Plan of Treatment Upcoming Encounters Date Type Department Care Team (Late st Contact Info) Description 02/16/2024 2:30 PM CDT - 02/16/2024 3:[address] [facility] [address], [place] [id number] Reid Aguilera MBBS [address] [facility] [address] [place], [place] [phone] COLONOSCOPY Scheduled Procedures Name Priority Associated Diagnoses Date/Ti me COLONOSCOPY 02/16/2024 2:30 PM CDT Health Maintenance Due Date Last Done Comments [...] 65+ 12/28/2007 COVID-19 vaccine series ( season) 3 Influenza for age 65+ 03/01/2024 Procedures The patient is currently admitted. The information in this section might not be complete until the patient is discharged. Procedure Name Priority Date/Time Associated Diagnosis Comments XR ABDOMEN 1 VIEW PORTABLE Routine 02/15/2024 8:45 PM CDT TYPE & SCREEN Today 02/15/2024 7:59 PM CDT HEMOGLOBIN Timed 02/15/2024 7:59 PM CDT HEMOGLOBIN Timed 02/15/2024 1:[address] ANGIO ABDOMEN PELVIS Routine 02/15/2024 11:33 AM CDT SCAN-CARDIAC STRIP 02/15/2024 8: 43 AM CDT BILIRUBIN,TOTAL Early AM 02/15/2024 7:49 AM CDT ALK PHOSPHATASE Early AM 02/15/2024 7:49 AM CDT ALT (SGPT) Early AM 02/15/2024 7:49 AM CDT AST (SGOT) Early AM 02/15/2024 7:49 AM CDT PLATELET COUNT Early AM 02/15/2024 7:49 AM CDT WHITE BLOOD COUNT Early AM 02/15/2024 7:4 9 AM CDT MAGNESIUM Early AM 02/15/2024 7:49 AM CDT CREATININE Early AM 02/15/2024 7:49 AM CDT POTASSIUM Early AM 02/15/2024 7:49 AM CDT SODIUM Early AM 02/15/2024 7:49 AM CDT HEMOGLOBIN Timed 02/15/2024 7:49 AM CDT SCAN-CARDIAC STRIP 02/15/2024 5: 26 AM CDT SCAN-CARDIAC STRIP 02/15/2024 1: 04 [...] CDT from Last 3 Months Results * XR ABDOMEN 1 VIEW PORTABLE (02/15/2024 8:45 PM CDT) Anatomical Region Laterality Modality Abdomen Computed Radiogr aphy 02/15/2024 8:45 PM CDT Impressions 02/15/2024 10:47 PM CDT No visible bowel dilatation. Atherosclerotic vascular calcification. Degenerative change osseous structures. Narrative 02/15/2024 10:47 PM CDT For Patients: As a result of the Cures Act, medical imaging exams and procedure reports are released immediately into your electronic medical record. You may view this report before your referring provider. If you have questions, please contact your health care provider. EXAM: XR ABDOMEN 1 VIEW PORTABLE LOCATION: [facility] MEDICAL IMAGING DATE: 02/15/2024 INDICATION: Abnormal bowel function. COMPARISON: None. Procedure Note Antonieta Zhong MD - 02/15/2024 For Patients: As a result of the Cures Act, medical imagingexams and procedure reports are released immediately into your electronicmedical record. You may view this report before your referring provider.If you have questions, please contact your health care provider. EXAM: XR ABDOMEN 1 VIEW PORTABLE LOCATION: [facility] MEDICAL IMAGING DATE: 02/15/2024 INDICATION: Abnormal bowel function. COMPARISON: None. IMPRESSION: No visible bowel dilatation. Atherosclerotic vascular calcification.Degenerative change osseous structures. [facility] * TYPE & SCREEN (02/15/2024 7:59 PM CDT) ABORH O Rh Positive 02/15/2024 8:46 PM CDT [facility] BLOOD BANK ANTIBODY SCREEN Negative Negative 02/15/2024 8:[address] [facility] BLOOD BANK SPECIMEN EXPIRATION DATE/TIME 02/18/24 23:59 02/15/2024 8:[address] [facility] BLOOD [facility] Blood BLOOD SPECIMEN / Unknown Butterfly / Unknown 02/15/2024 7:59 PM CDT 02/15/2024 8:10 PM CDT Irene Momin MD BLOOD BANK Performing Organization Address City/[facility]/ZIP Co de Phone Number [facility] BLOOD BANK [address] [place] [address] * (ABNORMAL) HEMOGLOBIN (02/15/2024 7:59 PM CDT) Only the most recent of4 resultswithin the time period is included. HEMOGLOBIN 10.3(L) 12.0 - 16.0 g/dL 02/15/2024 8:12 PM CDT [facility] MCV 76(L) 80 - 100 fL 02/15/2024 8:12 PM CDT [facility] Blood BLOOD SPECIMEN / Unknown Butterfly / Unknown 02/15/2024 7:59 PM CDT 02/15/2024 8:10 PM CDT Jamel Chou MD HEMATOLOGY [facility] SENDOUT INTERNAL ZIP [phone] [place] [address] * CT ANGIO ABDOMEN PELVIS (02/15/2024 11:33 AM CDT) Anatomical Region Laterality Modality Abdomen, Pelvis Computed Tomogra phy 02/15/2024 11:3 3 AM CDT Impressions 02/15/2024 1:46 PM CDT 1. ??No acute abnormalities in the abdomen or pelvis. Specifically, no contrast extravasation is identified to suggest active arterial bleeding. If there is continued clinical concern for active bleeding, tagged red blood cell scan or catheter directed angiography could be considered. 2. ??Additional chronic and ancillary findings as described. Narrative 02/15/2024 1:46 PM CDT For Patients: As a result of the Cures Act, medical imaging exams and procedure reports are released immediately into your electronic medical record. You may view this report before your referring provider. If you have questions, please contact your health care provider. EXAM: CT ANGIO ABDOMEN PELVIS LOCATION: [facility] MEDICAL IMAGING DATE: 02/15/2024 INDICATION: GI bleed, lower COMPARISON: None. TECHNIQUE: CT angiogram abdomen pelvis during arterial phase of injection of IV contrast. 2D and 3D MIP reconstructions were performed by the medical technologist prn. Dose reduction techniques were used. CONTRAST: Omnipaque 350 80cc FINDINGS: ANGIOGRAM ABDOMEN/PELVIS: Aorta: Nonaneurysmal abdominal aorta with severe aortoiliac atherosclerotic disease. 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 Conventional hepatic arterial anatomy. Superior mesenteric artery: Patent. Renal arteries: Patent bilaterally. Inferior mesenteric artery: Patent. Iliac arteries: Multifocal [id number] stenosis throughout the iliac arteries bilaterally. No areas of contrast extravasation identified. LOWER CHEST: Small right pleural effusion. Cardiomegaly. HEPATOBILIARY: Hepatic cysts. No biliary dilation. Normal gallbladder. PANCREAS: Normal. SPLEEN: Normal. ADRENAL GLANDS: Normal. KIDNEYS/BLADDER: Polycystic kidney disease, some of which appear hemorrhagic or proteinaceous. No hydronephrosis. Underdistended bladder, limiting evaluation. BOWEL: No obstruction. Appendix is not confidently visualized, possibly surgically absent. No secondary findings of acute appendicitis. No bowel wall thickening or pneumatosis. No pneumoperitoneum or free fluid. LYMPH NODES: No pathologically enlarged lymph nodes PELVIC ORGANS: No pelvic masses. MUSCULOSKELETAL: Multilevel degenerative disc disease of the thoracolumbar spine. Right thigh intramuscular lipoma. Procedure Note Antony Lynch MD - 02/15/2024 For Patients: As a result of the Century Cures Act, medical imagingexams and procedure reports are released immediately into your electronicmedical record. You may view this report before your referring provider.If you have questions, please contact your health care provider. EXAM: CT ANGIO ABDOMEN PELVIS LOCATION: [facility] MEDICAL IMAGING DATE: 02/15/2024 INDICATION: GI bleed, lower COMPARISON: None. TECHNIQUE: CT angiogram abdomen pelvis during arterial phase of injectionof IV contrast. 2D and 3D MIP reconstructions were performed by the CTtechnologist. Dose reduction techniques were used. CONTRAST: Omnipaque 350 80cc FINDINGS: ANGIOGRAM ABDOMEN/PELVIS: Aorta: Nonaneurysmal abdominal aorta with severe aortoiliacatherosclerotic disease. Celiac artery: At least mild stenosis of the celiac artery near its originwith poststenotic dilation measuring up to 12 mm. Conventional hepaticarterial anatomy. Superior mesenteric artery: Patent. Renal arteries: Patent bilaterally. Inferior mesenteric artery: Patent. Iliac arteries: Multifocal [id number]-[id number] stenosis throughout the iliacarteries bilaterally. No areas of contrast extravasation identified. LOWER CHEST: Small right pleural effusion. Cardiomegaly. HEPATOBILIARY: Hepatic cysts. No biliary dilation. Normal gallbladder. PANCREAS: Normal. SPLEEN: Normal. ADRENAL GLANDS: Normal. KIDNEYS/BLADDER: Polycystic kidney disease, some of which appearhemorrhagic or proteinaceous. No hydronephrosis. Underdistended bladder,limiting evaluation. BOWEL: No obstruction. Appendix is not confidently visualized, possiblysurgically absent. No secondary findings of acute appendicitis. No bowelwall thickening or pneumatosis. No pneumoperitoneum or free fluid. LYMPH NODES: No pathologically enlarged lymph nodes PELVIC ORGANS: No pelvic masses. MUSCULOSKELETAL: Multilevel degenerative disc disease of the thoracolumbarspine. Right thigh intramuscular lipoma. IMPRESSION: 1. No acute abnormalities in the abdomen or pelvis. Specifically, nocontrast extravasation is identified to suggest active arterial bleeding.If there is continued clinical concern for active bleeding, tagged redblood cell scan or catheter directed angiography could be considered. 2. Additional chronic and ancillary findings as described. Irene Momin MD CT * SCAN-CARDIAC STRIP (02/15/2024 8:43 AM CDT) Scanner OTHER * PLATELET COUNT (02/15/2024 7:49 AM CDT) PLATELET COUNT 221 140 - 440 thou/cu mm 02/15/2024 8:08 AM CDT [facility] MPV 10.9 6.5 - 11.0 fL 02/15/2024 8:08 AM CDT [facility] Blood BLOOD SPECIMEN / Unknown Venipuncture / Unknown 02/15/2024 7:49 AM CDT 02/15/2024 8:05 AM CDT Jamel Chou MD HEMATOLOGY Performing Organization Address City/[facility]/ZIP Co de Phone Number [facility] SENDOUT INTERNAL ZIP [phone] [place] [phone] * WHITE BLOOD COUNT (02/15/2024 7:49 AM CDT) WHITE BLOOD COUNT 5.8 4.5 - 11.0 thou/cu mm 02/15/2024 8:08 AM CDT [facility] NRBC 0.0 % 02/15/2024 8:08 AM CDT [facility] ABS NRBC 0.0 thou /cu mm 02/15/2024 8:08 AM CDT [facility] Blood BLOOD SPECIMEN / Unknown Venipuncture / Unknown 02/15/2024 7:49 AM CDT 02/15/2024 8:05 AM CDT Jamel Chou MD HEMATOLOGY Performing Organization Address City/[facility]/ZIP Co de Phone Number [facility] SENDOUT INTERNAL ZIP [phone] [place] [address] * SODIUM (02/15/2024 7:49 AM CDT) SODIUM 139 136 - 145 mmol/L 02/15/2024 8:27 AM CDT [facility] Blood BLOOD SPECIMEN / Unknown Venipuncture / Unknown 02/15/2024 7:49 AM CDT 02/15/2024 8:05 AM CDT Jamel Chou MD CHEMISTRY [facility] SENDOUT INTERNAL ZIP [phone] [place] [address] * (ABNORMAL) POTASSIUM (02/15/2024 7:49 AM CDT) Pathologist [facility] POTASSIUM 5.4(H) 3.5 - 5.1 mmol/L 02/15/2024 8:27 AM CDT [facility] Blood BLOOD SPECIMEN / Unknown Venipuncture / Unknown 02/15/2024 7:49 AM CDT 02/15/2024 8:05 AM CDT Jamel Chou MD CHEMISTRY Performing Organization Address City/[facility]/ZIP Co de Phone Number [facility] SENDOUT INTERNAL ZIP [phone] [place] [address] * (ABNORMAL) CREATININE (02/15/2024 7:49 AM CDT) Pathologist [facility] eGFR 5(L) >90 mL/min/1.7 3m2 02/15/2024 8:31 AM CDT [facility] Comment:As of 2021, eG FR is calculated by the CKD-EPI creatinine equation without race adjustment. ??eGFR can be influenced by muscle mass, exercise, and diet. ??The reported eGFR is an estimation only and is only applicable if the renal function is stable. CREATININE 8.14(HH) 0.50 - 0.90 mg/dL 02/15/2024 8:31 AM CDT [facility] Blood BLOOD SPECIMEN / Unknown Venipuncture / Unknown 02/15/2024 7:49 AM CDT 02/15/2024 8:05 AM CDT Jamel Chou MD CHEMISTRY [facility] SENDOUT INTERNAL ZIP [phone] [place] [address] * BILIRUBIN,TOTAL (02/15/2024 7:49 AM CDT) Pathologist [facility] BILIRUBIN,TOTA L 0.8 0.0 - 1.2 mg/dL 02/15/2024 8:27 AM CDT [facility] Blood BLOOD SPECIMEN / Unknown Venipuncture / Unknown 02/15/2024 7:49 AM CDT 02/15/2024 8:05 AM CDT Jamel Chou MD CHEMISTRY Performing Organization Address City/[facility]/ZIP Co de Phone Number [facility] SENDOUT INTERNAL ZIP [phone] [place] [address] * (ABNORMAL) ALT (SGPT) (02/15/2024 7:49 AM CDT) ALT (SGPT) 9(L) 10 - 35 IU/L 02/15/2024 8:27 AM CDT [facility] Blood BLOOD SPECIMEN / Unknown Venipuncture / Unknown 02/15/2024 7:49 AM CDT 02/15/2024 8:05 AM CDT Jamel Chou MD CHEMISTRY Performing Organization Address City/[facility]/ZIP Co de Phone Number [facility] SENDOUT INTERNAL ZIP [phone] [place] [address] * AST (SGOT) (02/15/2024 7:49 AM CDT) AST (SGOT) 29 10 - 35 IU/L 02/15/2024 8:27 AM CDT [facility] Blood BLOOD SPECIMEN / Unknown Venipuncture / Unknown 02/15/2024 7:49 AM CDT 02/15/2024 8:05 AM CDT Jamel Chou MD CHEMISTRY Performing Organization Address City/[facility]/ZIP Co de Phone Number [facility] SENDOUT INTERNAL ZIP [phone] [place] [address] * ALK PHOSPHATASE (02/15/2024 7:49 AM CDT) ALK PHOSPHATASE 63 35 - 104 IU/L 02/15/2024 8:27 AM CDT [facility] Blood BLOOD SPECIMEN / Unknown Venipuncture / Unknown 02/15/2024 7:49 AM CDT 02/15/2024 8:05 AM CDT Jamel Chou MD CHEMISTRY Performing Organization Address City/[facility]/ZIP Co de Phone Number [facility] SENDOUT INTERNAL ZIP [phone] [place] [address] * MAGNESIUM (02/15/2024 7:49 AM CDT) Only the most recent of2 resultswithin the time period is included. Pathologist [facility] MAGNESIUM 2.0 1.6 - 2.4 mg/dL 02/15/2024 8:27 AM CDT [facility] Blood BLOOD SPECIMEN / Unknown Venipuncture / Unknown 02/15/2024 7:49 AM CDT 02/15/2024 8:05 AM CDT Jamel Chou MD CHEMISTRY Performing Organization Address [facility] Co de Phone Number [facility] SENDOUT INTERNAL ZIP [phone] [place] [address] * SCAN-CARDIAC STRIP (02/15/2024 5:26 AM CDT) Scanner OTHER * SCAN-CARDIAC STRIP (02/15/2024 1:04 AM CDT) Scanner OTHER * SCAN-CARDIAC STRIP (02/14/2024 9:55 PM CDT) Scanner OTHER * (ABNORMAL) CBC WITH AUTO DIFFERENTIAL (02/14/2024 9:39 PM CDT) Pathologist [facility] WHITE BLOOD COUNT 6.7 4.5 - 11.0 thou/cu mm 02/14/2024 10:01 PM CDT [facility] RED BLOOD COUNT 3.75(L) 4.00 - 5.20 mil/cu mm 02/14/2024 10:01 PM CDT [facility] HEMOGLOBIN 9.6(L) 12.0 - 16.0 g/dL 02/14/2024 10:01 PM CDT [facility] HEMATOCRIT 28.0(L) 33.0 - 51.0 % 02/14/2024 10:[address] [facility] MCV 75(L) 80 - 100 fL 02/14/2024 10:[address] [facility] MCH 25.6(L) 26.0 - 34.0 pg 02/14/2024 10:[address] [facility] MCHC 34.3 32.0 - 36.0 g/dL 02/14/2024 10:[address] [facility] RDW 18.2(H) 11.5 - 15.5 % 02/14/2024 10:[address] [facility] PLATELET COUNT 212 140 - 440 thou/cu mm 02/14/2024 10:[address] [facility] MPV 10.5 6.5 - 11.0 fL 02/14/2024 10:[address] [facility] NRBC 0.0 % 02/14/2024 10:[address] [facility] ABS NRBC 0.0 thou /cu mm 02/14/2024 10:[address] [facility] % NEUT 79.2 % 02/14/2024 10:[address] [facility] % LYMPH 9.5 % 02/14/2024 10:[address] [facility] % MONO 9.6 % 02/14/2024 10:[address] [facility] % EOS 0.7 % 02/14/2024 10:[address] [facility] % BASO 0.7 % 02/14/2024 10:[address] [facility] % IMMATURE GRAN (METAS,MYELOS,SC OS) 0.3 % 02/14/2024 10:[address] [facility] ABSOLUTE NEUTROPHILS 5.3 1.7 - 7.0 thou/cu mm 02/14/2024 10:[address] [facility] ABSOLUTE LYMPHOCYTES 0.6(L) 0.9 - 2.9 thou/cu mm 02/14/2024 10:[address] [facility] ABSOLUTE MONOCYTES 0.7 <0.9 thou/cu mm 02/14/2024 10:[address] [facility] ABSOLUTE EOSINOPHILS 0.1 <0.5 thou/cu mm 02/14/2024 10:[address] [facility] ABSOLUTE BASOPHILS 0.1 <0.3 thou/cu mm 02/14/2024 10:01 PM CDT [facility] ABSOLUTE IMMATURE GRANULOCYTES(MET ,MYELOS,PROS) 0.0 <0.3 thou/cu mm 02/14/2024 10:01 PM CDT [facility] Blood BLOOD SPECIMEN / Unknown Venipuncture / Unknown 02/14/2024 9:39 PM CDT 02/14/2024 9:46 PM CDT Jamel Chou MD HEMATOLOGY [facility] SENDOUT INTERNAL ZIP [phone] [place] [address] * (ABNORMAL) VITAMIN B12 (02/14/2024 9:39 PM CDT) VITAMIN B12 3,631(H) 232 - 1,245 pg/mL 02/15/2024 1:50 AM CDT [facility] Blood BLOOD SPECIMEN / Unknown Venipuncture / Unknown 02/14/2024 9:39 PM CDT 02/14/2024 9:46 PM CDT Narrative [facility] - 02/15/2024 1:50 AM CDT Biotin supplements may cause clinically significant interference for this test assay. ??If interference is suspected, it is strongly recommended that biotin is discontinued for at least one week prior to retesting. Jamel Chou MD CHEMISTRY [facility] [address] [place] [address], * (ABNORMAL) AMMONIA (02/14/2024 9:39 PM CDT) AMMONIA 15(L) 16 - 60 umol/L 02/14/2024 10:08 PM CDT [facility] Blood BLOOD SPECIMEN / Unknown Venipuncture / Unknown 02/14/2024 9:39 PM CDT 02/14/2024 9:45 PM CDT Narrative [facility] - 02/14/2024 10:08 PM CDT 1. ??Sulfasalazine and its metabolite Sulfapyridine at therapeutic concentrations may lead to falsely low results. 2. ??Temozolomide and its metabolite MTIC may lead to falsely elevated results, and its metabolite AIC may lead to falsely low results. Jamel Chou MD CHEMISTRY [facility] SENDOUT INTERNAL ZIP [phone] [place] [address] * (ABNORMAL) BASIC METABOLIC PANEL (02/14/2024 9:39 PM CDT) SODIUM 137 136 - 145 mmol/L 02/14/2024 10:[address] [facility] POTASSIUM 5.1 3.5 - 5.1 mmol/L 02/14/2024 10:[address] [facility] CHLORIDE 99 98 - 107 mmol/L 02/14/2024 10:[address] [facility] CO2,TOTAL 21(L) 22 - 29 mmol/L 02/14/2024 10:[address] [facility] ANION GAP 17 5 - 18 02/14/2024 10:[address] [facility] GLUCOSE 72 70 - 99 mg/dL 02/14/2024 10:[address] [facility] CALCIUM 9.4 8.8 - 10.2 mg/dL 02/14/2024 10:[address] [facility] BUN 26(H) 8 - 23 mg/dL 02/14/2024 10:[address] [facility] CREATININE 6.94(H) 0.50 - 0.90 mg/dL 02/14/2024 10:[address] [facility] BUN/CREAT RATIO 4(L) 10 - 20 4 10:[address] [facility] eGFR 6(L) >90 mL/min/1.7 3m2 02/14/2024 10:[address] [facility] Comment:As of 2021, eG FR is calculated by the CKD-EPI creatinine equation without race adjustment. ??eGFR can be influenced by muscle mass, exercise, and diet. ??The reported eGFR is an estimation only and is only applicable if the renal function is stable. Blood BLOOD SPECIMEN / Unknown Venipuncture / Unknown 02/14/2024 9:39 PM CDT 02/14/2024 9:46 PM CDT Jamel Chou MD CHEMISTRY [facility] SENDOUT INTERNAL ZIP [phone] [place] [address] * (ABNORMAL) ISTAT EG6+ ABG (02/14/2024 9:09 PM CDT) PH, ARTERIAL 7.52(H) 7.35 - 7.45 02/14/2024 9:12 PM CDT [facility] PCO2, ARTERIAL 29(L) 32 - 45 mmHg 02/14/2024 9:12 PM CDT [facility] PO2, ARTERIAL 55(L) 83 - 108 mmHg 02/14/2024 9:12 PM CDT [facility] HCO3, ARTERIAL 24 21 - 28 mmol/L 02/14/2024 9:12 PM CDT [facility] BASE EXCESS, ARTERIAL 1.0 -2.0 - 3.0 02/14/2024 9:12 PM CDT [facility] O2 SATURATION, ARTERIAL 92(L) 94 - 98 % 02/14/2024 9:12 PM CDT [facility] SODIUM, POCT 02/14/2024 9:12 PM CDT [facility] Comment:Unable to determine. POTASSIUM, POCT 9:12 PM CDT [facility] Comment:Unable to determine. INSPIRED O2,ISTAT 02/14/2024 9:12 PM T [facility] Comment:Not given PATIENT TEMPERATURE 37.0 Degrees C 02/14/2024 9:12 PM CDT [facility] SOL'S TEST Not Given 02/14/2024 9:12 PM CDT [facility] SAMPLE TYPE,ISTAT BLOOD GAS ARTERIAL 02/14/2024 9:12 PM CDT [facility] Blood BLOOD SPECIMEN / Unknown 02/14/2024 9:09 PM CDT 02/14/2024 9:12 PM CDT U Hospitalist [facility] CHEMISTRY [facility] SENDOUT INTERNAL ZIP [phone] [place] [address] from Last 3 Months Advance Directives * [...] Code Status Discussion: Reviewed Preferences Care Teams Managed Care Nurse Relationship Specialty Start Date End Date Louis Reyes MD [address] [place] [phone] PCP - General Family Practice 05/18/21
--- OUTSIDE RECORDS SUMMARY | 2024-02-15 23:17 | XMS_ITS | Encounter Summary ---
Author Organization [facility] Address [address] [place] [address] Care Team Providers Care Sterile Instrument Technician Name Role Phone Fabian Arias MD Primary Care Provider + [phone] Encounter Details Date Type Department Care Team (Late st Contact Info) Description 01/29/2024 Treatment [facility] [place] [address] [place] [address] Landon Calvert MD [address] [place] [address] Social History Tobacco Use Types [...] Name: Zamzam Garibay : 1940 Chart #: [id number] Sex: F This patient was personally seen [...] AM ) BP (sit): 156/75 AP(-) / ELECTRICIAN: 217/263 Pulse: 57 Chairside data as of [...] Values 12/30/2023 12/02/2023 11/01/2023 Access Flow [id number] HAND LAMINATOR: Landon Calvert MD LOCATION: [phone] SCHEDULE: -- 1st Shift EDW: kg. DIALYZER: HD DURATION: NEEDLE SIZE: ANTICOAG: BATH: QB: ml/min QD: ml/min Subjective Tolerating dialysis well. 01/28: I feel the best I have felt in years. Hgb is up, Mircera held. With holding oral iron, stools no longer black. She has no concerns. Advanced Practitioner Subjective CATTLE INSPECTOR 01/20/2024: Patient seen while on dialysis. Reports [...] no reported issues. Continue plan of care. CATTLE INSPECTOR 12/04/2023: Spoke with patient on dialysis. 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 Will send back to [facility] for re-evaluation and I will discusswith surgeon there 11/01/21: I will call [facility] for update on whether they have received report from her AVF surgery and plan moving forward for access revision/creation [facility] September 2021, need report [facility] appt 08/2021: LUE AVF lower arm placed [...] above goal. Intact PTH is at goal. Anti Tank Missileman will adjust binders and vitamin D per [...] on filedocumented in this encounter Care Teams Sterile Instrument Technician Relationship Specialty Start Date End Date Fabian Arias MD [address] [place] [phone] PCP - General Family Medicine 09/04/20 documented as of this encounter
--- OUTSIDE RECORDS SUMMARY | 2024-02-15 23:17 | XMS_ITS | Encounter Summary ---
Author Organization [facility] Address [address] [place] [address] Care Team Providers Care Weekend Caregiver Name Role Phone Fabian Arias MD Primary Care Provider + [phone] Encounter Details Date Type Department Care Team (Late st Contact Info) Description 12/25/2023 Treatment [facility] [place] [address] [place] [address] Landon Calvert MD [address] [place] [address] Social History Tobacco Use Types [...] Name: Zamzam Garibay : 1940 Chart #: [id number] Sex: F This patient was personally seen [...] AM ) BP (sit): 159/77 AP(-) / DELIVERY SUPERVISOR: 206/167 Pulse: 70 Chairside data as of [...] Values 12/02/2023 11/01/2023 09/30/2023 Access Flow [id number] TRANSFORMER MOLDER: Landon Calvert MD LOCATION: [place] [phone] SCHEDULE: -- 1st Shift EDW: kg. DIALYZER: [...] improved and no SOB. Advanced Practitioner Subjective NORMALIZER 12/04/2023: Spoke with patient on dialysis. Continues to have black stools on occasion. She has GIappointment scheduled in December. Encouraged her to connect with PCP for follow-up. She is planning tocall today. Started on Ferrlecit and on max Mircera. Tolerating dialysis. BP improved. She has beengetting to EDW. AVG has been working well. No changes today. Continue same plan. NORMALIZER 11/29/2023: Patient seen while on dialysis. 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 Will send back to [facility] for re-evaluation and I will discusswith surgeon there 11/01/21: I will call [facility] for update on whether they have received report from her AVF surgery and plan moving forward for access revision/creation [facility] September 2021, [...] above goal. Intact PTH is at goal. Methods Analyst will adjust binders and vitamin D [...] on filedocumented in this encounter Care Teams Weekend Caregiver Relationship Specialty Start Date End Date Fabian Arias MD [address] [place] [address] PCP - General Family Medicine 09/04/20 documented as of this encounter
--- OUTSIDE RECORDS SUMMARY | 2024-02-15 23:17 | XMS_ITS | Encounter Summary ---
Author Organization [facility] Address [address] [place] [address] Care Team Providers Care Senior Application Programmer Name Role Phone Fabian Arias MD Primary Care Provider + [phone] Encounter Details Date Type Department Care Team (Late st Contact Info) Description 01/06/2024 Orders Only [facility] [address] [place] [address] Landon Calvert MD [address] [place] [address] Social History Tobacco Use Types [...] CELIA Lab Results (01/06/2024) eKt/V Gotch 1.69 [facility] PCR 47.20 [facility] eKt/V ([place]) 1.69 [facility] spKt/V Gotch 2.00 [facility] WSTDKT/V 2.7 [facility] nPCR_HD 1.34 [facility] eNPCR 1.19 [facility] spKt/V (Daugirdas II) 1.97 [facility] eKdrt/V 1.69 [facility] 01/06/2024 01/06/2024 Celia Ordering Provider LAB BLOOD ORDERABLE S CELIA [facility] Contact Performing lab Unknown, [place] * HD KINETICS (01/06/2024) % Urea Reduction 80 65 - 80 % [facility] 01/06/2024 01/07/2024 10: 05 AM CDT Narrative Resulting Agency Comment Specimen source: Plasma Landon Calvert MD LAB BLOOD ORDERABLES Performing Organization Address [facility] Co de Phone Number [facility] See order comments or contact performing lab Unknown, [place] * POST CHEMISTRY (01/06/2024) BUN Post Dialysis 16 6 - 19 mg/dL [facility] 01/06/2024 01/07/2024 10: 05 AM CDT Narrative [facility] - 01/07/2024 Unless otherwise specified, test(s) performed at: [facility], [address] [place] [address], [place] [address] MANAGER CATH LAB: Vicente Flores M.D., Ph.D For any questions, please call customer service at FREQUENCY:OTHER Resulting Agency Comment Specimen source: Plasma Landon Calvert MD LAB BLOOD ORDERABLES Performing Organization Address [facility] Co de Phone Number [facility] See order comments or contact performing lab Unknown, [place] * (ABNORMAL) [facility] (01/06/2024) BUN 80(H) 6 - 19 mg/dL [facility] 01/06/2024 01/07/2024 9:5 4 AM CDT Narrative [facility] - 01/07/2024 Unless otherwise specified, test(s) performed at: [facility], [address] [place] [address], [place] [address] MANAGER CATH LAB: Vicente Flores M.D., Ph.D For any questions, please call customer service at FREQUENCY:OTHER Resulting Agency Comment Specimen source: Serum Landon Calvert MD LAB BLOOD ORDERABLES [facility] See order comments or contact performing lab Unknown, [place] documented in this encounter Visit Diagnoses Not on filedocumented in this encounter Care Teams Senior Application Programmer Relationship Specialty Start Date End Date Fabian Arias MD [address] [place] [address] PCP - General Family Medicine 09/04/20 documented as of this encounter
--- OUTSIDE RECORDS SUMMARY | 2024-02-15 23:17 | XMS_ITS | Encounter Summary ---
Author Organization [facility] Address [address] [place] [address] Care Team Providers Care Systems Auditor Name Role Phone Fabian Arias MD Primary Care Provider + [phone] Encounter Details Date Type Department Care Team (Late st Contact Info) Description 12/18/2023 Orders Only [facility] [place] [address] [place] [address] Landon Calvert MD [address] [place] [address] Social History Tobacco Use Types [...] 12/20/2023 Unless otherwise specified, test(s) performed at: [facility], [address] [place] [address] FINANCIAL OFFICER: Vicente Flores M.D., Ph.D For any questions, please call customer service at FREQUENCY:OTHER Resulting Agency Comment Specimen source: Blood Landon Calvert MD LAB BLOOD ORDERABLES [facility] See order comments or contact performing lab Unknown, [place] documented in this encounter Visit Diagnoses Not on filedocumented in this encounter Care Teams Systems Auditor Relationship Specialty Start Date End Date Fabian Arias MD [address] [place] [address] PCP - General Family Medicine 09/04/20 documented as of this encounter
--- OUTSIDE RECORDS SUMMARY | 2024-02-15 23:17 | XMS_ITS | Encounter Summary ---
Author Organization [facility] Address [address] [place] [address] Care Team Providers Care Music Teacher Name Role Phone Fabian Arias MD Primary Care Provider + [phone] Encounter Details Date Type Department Care Team (Late st Contact Info) Description 02/14/2024 Orders Only [facility] [place] [address] [place] [address] Landon Calvert MD [address] [place] [address] Social History Tobacco Use Types [...] Date/Time Associated Diagnosis Comments HEMATOLOGY Routine 02/14/2024 documented in this encounter Results * (ABNORMAL) HEMATOLOGY (02/14/2024) Hemoglobin 10.1(L) 12.0 - 16.0 g/dL [facility] Hemoglobin x 3 30.3(L) 36.0 - 48.0 % [facility] 02/14/2024 02/15/2024 10: 08 AM CDT Narrative [facility] - 02/15/2024 Unless otherwise specified, test(s) performed at: [email or web address], [address] [place] [address] HYDROPONICS WORKER: Vicente Flores M.D., Ph.D For any questions, please call customer service at FREQUENCY:OTHER Resulting Agency Comment Specimen source: Blood Landon Calvert MD LAB BLOOD ORDERABLES [facility] See order comments or contact performing lab Unknown, [place] documented in this encounter Visit Diagnoses Not on filedocumented in this encounter Care Teams Music Teacher Relationship Specialty Start Date End Date Fabian Arias MD [address] [place] [address] PCP - General Family Medicine 09/04/20 documented as of this encounter
--- OUTSIDE RECORDS SUMMARY | 2024-02-15 23:17 | XMS_ITS | Encounter Summary ---
Author Organization [facility] Address [address] [place] [address] Care Team Providers Care Rig Builder Name Role Phone Fabian Arias MD Primary Care Provider + [phone] Encounter Details Date Type Department Care Team (Late st Contact Info) Description 02/14/2024 Treatment [facility] [place] [address] [place] [address] Landon Calvert MD [address] [facility] [place] [address] Social History Tobacco Use Types [...] Name: Zamzam Garibay : 1940 Chart #: [id number] Sex: F This patient was personally seen [...] AM ) BP (sit): 197/102 AP(-) / SELF PAY SPECIALIST: n/a Pulse: 78 Chairside data as of [...] 3 Values 01/31/2024 12/30/2023 12/02/2023 Access Flow [id number] Treatment Medication Orders Medication Sig [...] 0.5 mcg ORAL 3X Week 05/08/2023 05/06/2024 FIRE EXTINGUISHER REPAIRER INSPECTOR: Landon Calvert MD LOCATION: [place] [phone] SCHEDULE: -- 1st Shift EDW: kg. DIALYZER: [...] her go to ER. Advanced Practitioner Subjective SALES REPRESENTATIVE MARINE SUPPLIES 01/20/2024: Patient seen while on dialysis. Reports [...] no reported issues. Continue plan of care. SALES REPRESENTATIVE MARINE SUPPLIES 12/04/2023: Spoke with patient on dialysis. 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 Will send back to [facility] for re-evaluation and I will discusswith surgeon there 11/01/21: I will call [facility] for update on whether they have received report from her AVF surgery and plan moving forward for access revision/creation [facility] September 2021, need report [facility] appt 08/2021: JOHN AVF lower arm placed in [place], fistulagram / stenosis of vein proximal not [...] above goal. Intact PTH is at goal. Repeat Chief will adjust binders and vitamin D per [...] on filedocumented in this encounter Care Teams Rig Builder Relationship Specialty Start Date End Date Fabian Arias MD [address] [place] [address] PCP - General Family Medicine 09/04/20 documented as of this encounter
--- OUTSIDE RECORDS SUMMARY | 2024-02-15 23:18 | XMS_ITS | Referral Summary ---
Author Organization [facility] Address [address] [place] [address] Care Team Providers Care Cloth Tester Quality Name Role Phone Louis Reyes MD Primary Care Provider [phone] Clinic, Not Listed Unavailable Unavailable Allergies Active [...] Advance Directives For more information, please contact: [phone] * Full Code (Latest Code Status on File) Date Activated Date Inactivated Comments 02/02/2022 9:21 AM 02/03/2022 1:53 AM Question Answer Comments How was code status determined? Patient Care Teams Cloth Tester Quality Relationship Specialty Start Date End Date Louis Reyes MD [address] [place] [address] PCP - General 01/30/22 Clinic, Not Listed PCP - Primary Care Clinic 01/30/22
--- OUTSIDE RECORDS SUMMARY | 2024-02-15 23:18 | XMS_ITS | Encounter Summary ---
Author Organization [facility] Address [address] [place] [address] Care Team Providers Care Yarn Washer Name Role Phone Fabian Arias MD Primary Care Provider + [phone] Encounter Details Date Type Department Care Team (Late st Contact Info) Description 11/11/2023 Treatment [facility] [place] [address] [place] [address] Landon Calvert MD [address] [facility] [place] [address] Social History Tobacco Use Types [...] Name: Zamzam Garibay : 1940 Chart #: [id number] Sex: F This patient was personally seen [...] AM ) BP (sit): 141/66 AP(-) / SUPERVISOR MAPPING: 189/150 Pulse: 79 Chairside data as of [...] 3 Values 11/01/2023 09/30/2023 09/02/2023 Access Flow [id number] Treatment Medication Orders Medication Sig Start Date [...] 0.5 mcg ORAL 3X Week 05/08/2023 05/06/2024 NAVAL AIRCREWMAN AVIONICS: Landon Calvert MD LOCATION: [place] [phone] SCHEDULE: -- 1st Shift EDW: kg. DIALYZER: [...] hasn't missed any doses. Advanced Practitioner Subjective CHANGE MANAGEMENT ADMINISTRATOR 09/13/2023: Patient seen on dialysis. Has a cold today and headache last evening. Tolerating dialysis. BP improved. She has been getting to EDW. AVG has been working well. No changes today. Continue same plan. CHANGE MANAGEMENT ADMINISTRATOR 08/02/2023: Spoke with patient on dialysis. No new concerns reported. Denies SOB, chest pain, cramping or dizziness. Leaving close to EDW. AVG functional; no reported issues. Had episode of nausea off treatment in lobby; no vomiting. No headache or fever. Was feeling better after about 10 minutes. CHANGE MANAGEMENT ADMINISTRATOR 07/05/2023: Patient seen while on dialysis. 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 Intact PTH is at goal. Script Editor will adjust binders and vitamin D per [...] - re-check Phos and K next week Landno Calvert MD [ Signed And locked electronically On 11/11/2023 at 09:28:01 AM ] Transcribed: Landon Calvert ( 11/11/2023 ) documented in this encounter Plan of Treatment Not on file documented as of this encounter Visit Diagnoses Not on filedocumented in this encounter Care Teams Yarn Washer Relationship Specialty Start Date End Date Fabian Arias MD [address] [place] [address] PCP - General Family Medicine 09/04/20 documented as of this encounter
--- OUTSIDE RECORDS SUMMARY | 2024-02-15 23:18 | XMS_ITS | Encounter Summary ---
Author Organization [facility] Address [address] [place] [address] Care Team Providers Care Manager Resource Name Role Phone Fabian Arias MD Primary Care Provider + [phone] Encounter Details Date Type Department Care Team (Late st Contact Info) Description 11/29/2023 Treatment [facility] [place] [address] [place] [address] Chata Garza, STAFF TRAINING AND DEVELOPMENT MANAGER-LEAK HUNTER [address] [place] [address] Social History Tobacco Use Types Packs/Day Years Used Date Smoking Tobacco: Smoker, Cur rent Status Unknown Cigarettes Started: 977 Sex and Gender Information Value Date Recorded Sex Assigned at Not on file Gender Identity Not on file Sexual Orientation Not on file documented as of this encounter Miscellaneous Notes * Dialysis Note - Chata Garza APRN-LEAK HUNTER - 11/29/2023 8:47 AM CDT Date: November 29, 2023 Patient Name: Zamazm Garibay : 1940 Chart #: [id number] Sex: F This patient was personally seen [...] AM ) BP (sit): n/a AP(-) / PROPERTY AND EQUIPMENT CLERK: 182/333 Pulse: n/a Chairside data as of [...] 3 Values 11/01/2023 09/30/2023 09/02/2023 Access Flow [id number] Treatment Medication Orders Medication Sig Start Date End Date Cinacalcet (Sensipar) 30 mg ORAL 3X Week Post Dialysis,with snack 04/12/2023 04/10/2024 Mircera 150 mcg IVP Every 2 weeks During Dialysis 11/04/2023 11/02/2024 Sodium Ferric Gluconate (Ferrlecit) 62.5 mg IVP Every Treatment During Dialysis 10/04/2023 10/02/2024 Vitamin D (Calcitriol) Oral 0.5 mcg ORAL 3X Week 05/08/2023 05/06/2024 CLERK STENOGRAPHER: Landon Calvert MD LOCATION: [phone] SCHEDULE: -- 1st Shift EDW: kg. DIALYZER: [...] hasn't missed any doses. Advanced Practitioner Subjective GAS USAGE METER CLERK 11/29/2023: Patient seen while on dialysis. States that she is feeling good. Hospitalized last month for GI bleed. She still has some occasional black stools. Hgb has been stable around 8. Denies SOB, chest pain, cramping or dizziness. Leaving close to EDW. BP elevated. AVG functional; no reported issues. Continue plan of care. GAS USAGE METER CLERK 09/13/2023: Patient seen on dialysis. 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 Will send back to [facility] for re-evaluation and I will discusswith surgeon there 11/01/21: I will call [facility] for update on whether they have received report from her AVF surgery and plan moving forward for access revision/creation [facility] September 2021, need report [facility] appt 08/2021: JOHN AVF lower arm placed in [place], fistulagram [...] above goal. Intact PTH is at goal. Pants Closer will adjust binders and vitamin D per [...] filedocumented in this encounter Care Teams Manager Resource Relationship Specialty Start Date End Date Fabian Arias MD [address] [place] [address] PCP - General Family Medicine 09/04/20 documented as of this encounter
--- OUTSIDE RECORDS SUMMARY | 2024-02-15 23:18 | XMS_ITS | Encounter Summary ---
Author Organization [facility] Address [address] [place] [address] Phone Care Team Providers Care Art Consultant Name Role Phone Fabian Arias MD Primary Care Provider [phone] Encounter Details Date Type Department Care Team (Late st Contact Info) Description 08/05/2020 Orders Only [facility] [address] [place] [address] Social History Tobacco Use Types [...] on filedocumented in this encounter Care Teams Art Consultant Relationship Specialty Start Date End Date Fabian Arias MD [address] [place] [address] PCP - General Family Medicine 09/04/20 documented as of this encounter
--- OUTSIDE RECORDS SUMMARY | 2024-02-15 23:18 | XMS_ITS | Clinical Summary ---
Author Organization [facility] Address [address] [place] [address] Care Team Providers Care Drum Sander Name Role Phone Louis Reyes MD Primary Care Provider [phone] Clinic, Not Listed Unavailable Unavailable Allergies Active [...] Advance Directives For more information, please contact: [phone] * Full Code (Latest Code Status on File) Date Activated Date Inactivated Comments 02/02/2022 9:21 AM 02/03/2022 1:53 AM Question Answer Comments How was code status determined? Patient Care Teams Drum Sander Relationship Specialty Start Date End Date Louis Reyes MD [address] [place] [address] PCP - General 01/30/22 Clinic, Not Listed PCP - Primary Care Clinic 01/30/22
--- OUTSIDE RECORDS SUMMARY | 2024-02-15 23:18 | XMS_ITS | Encounter Summary ---
Author Organization [facility] Address [address] [place] [address] Care Team Providers Care Horticulture Professor Name Role Phone Fabian Arias MD Primary Care Provider + [phone] Encounter Details Date Type Department Care Team (Late st Contact Info) Description 11/06/2023 Orders Only [facility] [place] [address] [place] [address] Landon Calvert MD [address] [place] [address] Social History Tobacco Use Types [...] 11/07/2023 Unless otherwise specified, test(s) performed at: [facility], [address] [facility], [place] [address] SHEEP AND WHEAT FARMER: Vicente Flores M.D., Ph.D For any questions, please call customer service at FREQUENCY:OTHER Resulting Agency Comment Specimen source: Blood Landon Calvert MD LAB BLOOD ORDERABLES [facility] See order comments or contact performing lab Unknown, [place] documented in this encounter Visit Diagnoses Not on filedocumented in this encounter Care Teams Horticulture Professor Relationship Specialty Start Date End Date Fabian Arias MD [address] [place] [address] PCP - General Family Medicine 09/04/20 documented as of this encounter
--- OUTSIDE RECORDS SUMMARY | 2024-02-15 23:18 | XMS_ITS | Encounter Summary ---
Author Organization [facility] Address [address] [place] [address] Care Team Providers Care Orthotist/Prosthetist Name Role Phone Fabian Arias MD Primary Care Provider + [phone] Encounter Details Date Type Department Care Team (Late st Contact Info) Description 11/27/2023 Orders Only [facility] [place] [address] [place] [address] Landon Calvert MD [address] [place] [address] Social History Tobacco Use Types [...] 11/28/2023 Unless otherwise specified, test(s) performed at: [facility], [address] [facility], [place] [address] SPEECH AND LANGUAGE SPECIALIST: Vicente Flores M.D., Ph.D For any questions, please call customer service at FREQUENCY:OTHER Resulting Agency Comment Specimen source: Blood Landon Calvert MD LAB BLOOD ORDERABLES [facility] See order comments or contact performing lab Unknown, [place] documented in this encounter Visit Diagnoses Not on filedocumented in this encounter Care Teams Orthotist/Prosthetist Relationship Specialty Start Date End Date Fabian Arias MD [address] [place] [address] PCP - General Family Medicine 09/04/20 documented as of this encounter
--- OUTSIDE RECORDS SUMMARY | 2024-02-15 23:18 | XMS_ITS | Encounter Summary ---
Author Organization [facility] Address [address] [place] [address] Care Team Providers Care Nail Assembly Machine Operator Name Role Phone Fabian Arias MD Primary Care Provider + [phone] Encounter Details Date Type Department Care Team (Late st Contact Info) Description 12/04/2023 Treatment [facility] [place] [address] [place] [address] Chata Garza, OPERATOR RECEPTIONIST-SATIN FINISHER [address] [place] [address] Social History Tobacco Use Types Packs/Day Years Used Date Smoking Tobacco: Smoker, Cur rent Status Unknown Cigarettes Started: 977 Sex and Gender Information Value Date Recorded Sex Assigned at Not on file Gender Identity Not on file Sexual Orientation Not on file documented as of this encounter Miscellaneous Notes * Dialysis Note - Chata Garza APRN-SATIN FINISHER - 12/04/2023 8:32 AM CDT Date: Dec 04, 2023 Patient Name: Zamzam Garibay : 1940 Chart #: [id number] Sex: F This patient was personally seen [...] AM ) BP (sit): n/a AP(-) / AIRCRAFT ENGINE MECHANIC: 201/156 Pulse: n/a Chairside data as of [...] 3 Values 12/02/2023 11/01/2023 09/30/2023 Access Flow [id number] Treatment Medication Orders Medication Sig Start Date End Date Cinacalcet (Sensipar) 30 mg ORAL 3X Week Post Dialysis,with snack 04/12/2023 04/10/2024 Mircera 200 mcg IVP Every 2 weeks During Dialysis 12/04/2023 12/02/2024 Sodium Ferric Gluconate (Ferrlecit) 62.5 mg IVP Every Treatment During Dialysis 10/04/2023 10/02/2024 Vitamin D (Calcitriol) Oral 0.5 mcg ORAL 3X Week 05/08/2023 05/06/2024 WOOL HANDLER: Landon Calvert MD LOCATION: [phone] SCHEDULE: -- 1st Shift EDW: kg. DIALYZER: [...] hasn't missed any doses. Advanced Practitioner Subjective PUBLICATIONS PRODUCTION SUPERVISOR 12/04/2023: Spoke with patient on dialysis. Continues to have black stools on occasion. She has GIappointment scheduled in December. Encouraged her to connect with PCP for follow-up. She is planning tocall today. Started on Ferrlecit and on max Mircera. Tolerating dialysis. BP improved. She has beengetting to EDW. AVG has been working well. No changes today. Continue same plan. PUBLICATIONS PRODUCTION SUPERVISOR 11/29/2023: Patient seen while on dialysis. [...] a day onehour before meals RenaPlex-D (vit b,q-jx-jfju-selen-vit d3-e) 800 mcg-12.5 mg-2,000 unit tablet TAKE [...] [facility] appt 08/2021: JOHN AVF lower arm placed in [place], fistulagram [...] above goal. Intact PTH is at goal. Supervisor Sample will adjust binders and vitamin D per [...] on filedocumented in this encounter Care Teams Nail Assembly Machine Operator Relationship Specialty Start Date End Date Fabian Arias MD [address] [place] [address] PCP - General Family Medicine 09/04/20 documented as of this encounter
--- OUTSIDE RECORDS SUMMARY | 2024-02-15 23:18 | XMS_ITS | Encounter Summary ---
Author Organization [facility] Address [address] [place] [address] Care Team Providers Care Orthophotography Technician Name Role Phone Fabian Arias MD Primary Care Provider + [phone] Encounter Details Date Type Department Care Team (Late st Contact Info) Description 11/13/2023 Orders Only [facility] [place] [address] [place] [address] Landon Calvert MD [address] [place] [address] Social History Tobacco Use Types [...] 11/14/2023 Unless otherwise specified, test(s) performed at: [facility], [address] [place] [address] UNDERWATER HUNTER: Vicente Flores M.D., Ph.D For any questions, please call customer service at FREQUENCY:OTHER Resulting Agency Comment Specimen source: Blood Landon Calvert MD LAB BLOOD ORDERABLES [facility] See order comments or contact performing lab Unknown, [place] documented in this encounter Visit Diagnoses Not on filedocumented in this encounter Care Teams Orthophotography Technician Relationship Specialty Start Date End Date Fabian Arias MD [address] [place] [address] PCP - General Family Medicine 09/04/20 documented as of this encounter
--- OUTSIDE RECORDS SUMMARY | 2024-02-15 23:18 | XMS_ITS | Encounter Summary ---
Author Organization [facility] Address [address] [place] [address] Care Team Providers Care Sample Puller Name Role Phone Fabian Arias MD Primary Care Provider + [phone] Encounter Details Date Type Department Care Team (Late st Contact Info) Description 11/20/2023 Orders Only [facility] [place] [address] [place] [address] Landon Calvert MD [address] [place] [address] Social History Tobacco Use Types [...] 11/20/2023 11/21/2023 4:1 2 AM CDT Narrative [facility] - 11/21/2023 Unless otherwise specified, test(s) performed at: [facility], [address] [place] [address], [place] [address] CREDIT CONTROL OFFICER: Vicente Flores M.D., Ph.D For any questions, please call customer service at FREQUENCY:OTHER Resulting Agency Comment Specimen source: Blood Landon Calvert MD LAB BLOOD ORDERABLES Performing Organization Address City/[facility] Co de Phone Number [facility] See order comments or contact performing lab Unknown, [place] * (ABNORMAL) [facility] (11/20/2023) Potassium 4.8 3.5 - 5.1 mEq/L [facility] Phosphorus 5.8(H) 2.6 - 4.5 mg/dL [facility] 11/20/2023 11/21/2023 3:4 5 AM CDT Narrative [facility] - 11/21/2023 Unless otherwise specified, test(s) performed at: [facility], [address] [place] [address], [place] [address] CREDIT CONTROL OFFICER: Vicente Flores M.D., Ph.D For any questions, please call customer service at FREQUENCY:OTHER Resulting Agency Comment Specimen source: Serum Landon Calvert MD LAB BLOOD ORDERABLES Performing Organization Address [facility] Co de Phone Number [facility] See order comments or contact performing lab Unknown, [place] documented in this encounter Visit Diagnoses Not on filedocumented in this encounter Care Teams Sample Puller Relationship Specialty Start Date End Date Fabian Arias MD [address] [place] [address] PCP - General Family Medicine 09/04/20 documented as of this encounter
--- OUTSIDE RECORDS SUMMARY | 2024-02-15 23:18 | XMS_ITS | Encounter Summary ---
Author Organization [facility] Address [address] [place] [address] Phone Care Team Providers Care Volunteer Specialist Name Role Phone Fabian Arias MD Primary Care Provider [phone] Encounter Details Date Type Department Care Team (Latest Contact Info) Description 12/04/2020 Orders Only [facility] [address] [place] [address] Robert Newell MD [address] [place] [address] Chronic kidney disease, Stage V [...] origin documented in this encounter Care Teams Volunteer Specialist Relationship Specialty Start Date End Date Fabian Arias MD [address] [place] [address] PCP - General Family Medicine 09/04/20 documented as of this encounter
== END 2024-02-14 18:15 | disposition home or self-care (01) ==
LOC: AMB 02-15 23:15
PROVIDERS: PCP Family Medicine; Visit Provider Family Medicine
DX: R41.82 Altered mental status, unspecified (principal)
CPT/HCPCS: A0425; A0427

== ENCOUNTER 2024-06-17 10:11 | Outpatient (CLI) | payer MEDICARE, SELFPAY | END 2024-06-17 10:12 | disposition home or self-care (01) | LOC: AMB 06-18 03:42 | PROVIDERS: PCP Family Medicine; Visit Provider Family Medicine | DX: R55 Syncope and collapse (principal) | CPT/HCPCS: A0425; A0427 ==

== ENCOUNTER 2024-06-17 10:45 | Emergency (ER) | payer MEDICARE, SELFPAY ==
[2024-06-17] VITALS (23 sets, daily range): BP systolic 154–191; BP diastolic 73–148; PULSE 70–96; RESP 16–18; TEMP 36.1–37; O2SAT 91–100; BMI 20.4
[2024-06-17 12:10] LABS: Lactate* 1.9 mmol/L (0.5-1.9)
--- NOTE | 2024-06-17 12:27 | ED_ITS ---
HPI - General Adult General Chief complaint: Syncope/Fainted Stated complaint: syncope Time Seen by Provider: 06/17/24 10:56 Source: patient and EMS Mode of arrival: EMS Limitations: no limitations History of Present Illness HPI narrative: 83-year-old female presenting after an episode of syncope. Patient was getting her dialysis today when there is about 5 minutes left and she became unresponsive, slumped in her chair. Patient states she does remember this. She states that she felt very nauseated and then her vision started to go dark until she fainted. She woke up and felt a little bit out of the at 1st. She states that she is back to normal now. She states that she feels fine. She denies headache, changes in her vision or hearing. She denies any chest or abdominal pain. She states that for the last week she has been feeling fine. She states that she has a normal appetite. She denies diarrhea or urinary symptoms such as increased frequency, urgency or dysuria. She denies any recent fevers or chills. She has not been coughing. She states that this has happened before. Patient had a very similar visit in January when she became confused during dialysis. Of note, she did miss dialysis on Saturday according to the detention because she did not feel good. Per EMS, patient was slightly confused. Glucose was 99. Related Data Home Medications ?Medication ?Instructions ?Recorded ?Confirmed vit B,C-folic ac 800 mcg-zinc 12.5 1 tab PO QPM 11/06/22 06/17/24 mg-selen-D3 2,000 unit-vit E tablet (RenaPlex-D) calcium acetate 667 mg tablet 667 mg PO TID 04/30/23 06/17/24 metoprolol succinate 50 mg 50 mg PO QDAY 06/17/24 06/17/24 tablet,extended release 24 hr Previous Rx's ?Medication ?Instructions ?Recorded ferrous gluconate 324 mg (37.5 mg 648 mg (2 x 324 mg (37.5 mg iron)) 01/07/24 iron) tablet PO QDAY #180 tabs furosemide 80 mg tablet 80 mg PO DAILY #90 tabs 01/07/24 lisinopril 20 mg tablet 40 mg (2 x 20 mg) PO DAILY #180 01/07/24 tabs pantoprazole 40 mg tablet,delayed 40 mg PO BID #180 tabs 01/07/24 release Allergies Allergy/AdvReac Type Severity Reaction Status Date / Time iron Allergy Intermediate Itchy Verified 06/17/24 10:54 Review of Systems Status of ROS: Reports: 10 or more systems reviewed and unremarkable except as noted in History and below PFSH PFS Medical History Frequent headaches ?R51.9 - Headache, unspecified (ICD-10) Surgical History History of tubal ligation ?Z98.51 - Tubal ligation status (ICD-10) History of total abdominal hysterectomy and bilateral salpingo-oophorectomy ?Z90.710 - Acquired absence of both cervix and uterus (ICD-10) ?Z90.722 - Acquired absence of ovaries, bilateral (ICD-10) ?Z90.79 - Acquired absence of other genital organ(s) (ICD-10) Social History Narrative: SOCIAL HISTORY: Single. Moved from [place]. Living with her son and [id number] in [place]. 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 HABITS: non-smoker. No alcohol. What is your current living situation?: declined to answer Problems where you live: declined to answer In the past 12 months, utilities in danger of being shut off: declined to answer In past 12 months, lack of transportation kept you from medical appts, meetings, work, or getting things needed for daily living: declined to answer In the past 12 mos, have been you worried that your food would run out before you had money to buy more?: declined to answer In the past 12 mos, the food you bought just didn't last and you didn't have money to buy more?: declined to answer Smoking Status: Current some day smoker What tobacco products do you use: cigarettes Second hand tobacco smoke exposure: No How often do you have a drink containing alcohol: never AUDIT-C Alcohol total score: 0 Non-prescribed substance use: denies use How often does anyone, including family, friends and others, physically hurt you : decline to answer How often does anyone, including family, friends and others, insult or talk down to you: decline to answer How often does anyone, including family, friends and others, threaten you with harm: decline to answer How often does anyone, including family, friends and others, scream or curse at you: decline to answer service: No Health Related Social Needs: unsheltered homelessness (Z59.02) Exam Narrative: Exam Narrative: Well-nourished well-developed patient in no acute distress. Alert and orientedx3 - she can tell me the date/day, where she is and who I am after introductions. Answers questions appropriately. Mood and affect are appro priate. Thoughts are goal oriented and rational. No tangential or magical thinking noted. Patient speaks in full sentences without needing to catch her breath. HEENT: Normocephalic atraumatic. Pupils are equally round reactive to light. Extraocular muscles are intact. Conjunctivae are moist without any icterus noted. Moist mucous membranes. Neck is supple. Cardiovascular: Heart is regular rate and rhythm . Lungs: Clear to auscultation bilaterally Abdomen: Soft and nontender nondistended with normal bowel sounds. Extremities: Bilateral lower extremities are without edema. Normal DP and PT pulses. Skin: Well perfused without any obvious rashes. Skin is dry. Const: Vital Signs, click to edit/add: Vital Signs - 24 hr 06/17/24 10:48 06/17/24 12:34 06/17/24 12:45 Temperature 97.2 F L Pulse Rate 75 74 Pulse Rate [Left P ulse Oximeter] 74 Pulse Rate [orthos tatic lying Right Pulse Oximeter] Pulse Rate [orthos tatic sitting Righ t Pulse Oximeter] Pulse Rate [orthos tatic standing Rig ht Pulse Oximeter] Respiratory Rate 16 Blood Pressure 191/89 H Blood Pressure [Le ft Upper Arm] 181/93 H Blood Pressure [or thostatic lying Le ft Arm] Blood Pressure [or thostatic sitting Left Arm] Blood Pressure [or thostatic standing Left Arm] Pulse Oximetry 96 100 96 Oxygen Delivery Me thod Room Air 06/17/24 13:02 06/17/24 13:14 06/17/24 13:15 Temperature 98.6 F Pulse Rate 84 Pulse Rate [Left P ulse Oximeter] 83 Pulse Rate [orthos tatic lying Right Pulse Oximeter] Pulse Rate [orthos tatic sitting Righ t Pulse Oximeter] Pulse Rate [orthos tatic standing Rig ht Pulse Oximeter] Respiratory Rate 18 Blood Pressure 169/75 H Blood Pressure [Le ft Upper Arm] 169/75 H Blood Pressure [or thostatic lying Le ft Arm] Blood Pressure [or thostatic sitting Left Arm] Blood Pressure [or thostatic standing Left Arm] Pulse Oximetry 95 95 Oxygen Delivery Me thod Room Air 06/17/24 13:30 06/17/24 13:31 06/17/24 13:32 Temperature Pulse Rate 83 79 96 Pulse Rate [Left P ulse Oximeter] Pulse Rate [orthos tatic lying Right Pulse Oximeter] Pulse Rate [orthos tatic sitting Righ t Pulse Oximeter] Pulse Rate [orthos tatic standing Rig ht Pulse Oximeter] Respiratory Rate Blood Pressure 167/73 H 170/78 H Blood Pressure [Le ft Upper Arm] Blood Pressure [or thostatic lying Le ft Arm] Blood Pressure [or thostatic sitting Left Arm] Blood Pressure [or thostatic standing Left Arm] Pulse Oximetry 98 99 95 Oxygen Delivery Me thod 06/17/24 13:34 06/17/24 13:34 06/17/24 14:03 Temperature Pulse Rate Pulse Rate [Left P ulse Oximeter] Pulse Rate [orthos tatic lying Right Pulse Oximeter] 81 Pulse Rate [orthos tatic sitting Righ t Pulse Oximeter] 86 Pulse Rate [orthos tatic standing Rig ht Pulse Oximeter] 90 Respiratory Rate Blood Pressure 154/87 H 166/148 H Blood Pressure [Le ft Upper Arm] Blood Pressure [or thostatic lying Le ft Arm] 167/73 H Blood Pressure [or thostatic sitting Left Arm] 170/78 H Blood Pressure [or thostatic standing Left Arm] 154/87 H Pulse Oximetry Oxygen Delivery Me thod 06/17/24 14:07 06/17/24 14:15 06/17/24 14:30 Temperature Pulse Rate 79 70 74 Pulse Rate [Left P ulse Oximeter] Pulse Rate [orthos tatic lying Right Pulse Oximeter] Pulse Rate [orthos tatic sitting Righ t Pulse Oximeter] Pulse Rate [orthos tatic standing Rig ht Pulse Oximeter] Respiratory Rate Blood Pressure Blood Pressure [Le ft Upper Arm] Blood Pressure [or thostatic lying Le ft Arm] Blood Pressure [or thostatic sitting Left Arm] Blood Pressure [or thostatic standing Left Arm] Pulse Oximetry 95 97 91 Oxygen Delivery Me thod 06/17/24 14:32 06/17/24 15:25 06/17/24 15:29 Temperature Pulse Rate 76 Pulse Rate [Left P ulse Oximeter] Pulse Rate [orthos tatic lying Right Pulse Oximeter] Pulse Rate [orthos tatic sitting Righ t Pulse Oximeter] Pulse Rate [orthos tatic standing Rig ht Pulse Oximeter] Respiratory Rate Blood Pressure 186/84 H 170/100 H Blood Pressure [Le ft Upper Arm] Blood Pressure [or thostatic lying Le ft Arm] Blood Pressure [or thostatic sitting Left Arm] Blood Pressure [or thostatic standing Left Arm] Pulse Oximetry 96 Oxygen Delivery Me thod 06/17/24 15:30 06/17/24 15:45 06/17/24 16:00 Temperature Pulse Rate 73 70 74 Pulse Rate [Left P ulse Oximeter] Pulse Rate [orthos tatic lying Right Pulse Oximeter] Pulse Rate [orthos tatic sitting Righ t Pulse Oximeter] Pulse Rate [orthos tatic standing Rig ht Pulse Oximeter] Respiratory Rate Blood Pressure Blood Pressure [Le ft Upper Arm] Blood Pressure [or thostatic lying Le ft Arm] Blood Pressure [or thostatic sitting Left Arm] Blood Pressure [or thostatic standing Left Arm] Pulse Oximetry 96 98 96 Oxygen Delivery Me thod 06/17/24 16:02 06/17/24 16:03 Temperature Pulse Rate 79 84 Pulse Rate [Left P ulse Oximeter] Pulse Rate [orthos tatic lying Right Pulse Oximeter] Pulse Rate [orthos tatic sitting Righ t Pulse Oximeter] Pulse Rate [orthos tatic standing Rig ht Pulse Oximeter] Respiratory Rate Blood Pressure 177/85 H Blood Pressure [Le ft Upper Arm] Blood Pressure [or thostatic lying Le ft Arm] Blood Pressure [or thostatic sitting Left Arm] Blood Pressure [or thostatic standing Left Arm] Pulse Oximetry 92 96 Oxygen Delivery Me thod Course Course ED Course: Patient did have mild orthostatic hypotension with a sitting blood pressure 170/70 eat, blood pressure dropped 154/87 upon standing. EKG for me, shows normal sinus rhythm with a pulse of 72. Left anterior fascicular block, left ventricular hypertrophy with QRS widening and prolonged QT. CBC was around her baseline with a normal white count, hemoglobin of 9.2, hematocrit of 28, normal platelet count 246. Chemistries showed normal sodium of potassium. Creatinine elevated at 8.3, not significantly above her baseline BUN was 49. Glucose was 54, patient was given food to eat. This came up to 99. Normal lactate and LFTs. CRP elevated at 3.6. BNP greater than 30,000 Normal troponin. Patient was here for several hours before she was able to give a urine sample. Upon getting up to the commode to give a urine sample she also had a very large black stool which was fecal occult blood positive. [age] year old female with end-stage renal disease, GI bleed - we attempted to call multiple hospitals including [facility], [facility], [facility], [facility] were not able to find a bed for this patient. We did finally get a bed after several hours at [facility]. Vital Signs Vital signs: Initial Vital Signs Temperature 97.2 F L 06/17/24 10:48 Temperature Source Temporal Artery Scan 06/17/24 10:48 Pulse Rate 74 06/17/24 10:48 Respiratory Rate 16 06/17/24 10:48 Blood Pressure 181/93 H 06/17/24 10:48 Blood Pressure Mean 122 H 06/17/24 10:48 Blood Pressure Position Sitting 06/17/24 10:48 Pulse Oximetry 96 06/17/24 10:48 Oxygen Delivery Method Room Air 06/17/24 10:48 Vital Signs Temperature 97.2 F L 06/17/24 10:48 Pulse Rate 74 06/17/24 10:48 Respiratory Rate 16 06/17/24 10:48 Blood Pressure 181/93 H 06/17/24 10:48 Pulse Oximetry 96 06/17/24 10:48 Oxygen Delivery Method Room Air 06/17/24 10:48 Temperature 98.6 F 06/17/24 13:14 Pulse Rate 84 06/17/24 16:03 Respiratory Rate 18 06/17/24 13:14 Blood Pressure 177/85 H 06/17/24 16:02 Pulse Oximetry 96 06/17/24 16:03 Oxygen Delivery Method Room Air 06/17/24 13:14 Medications Administered Medications: Discontinued Medications Generic Name Dose Route Start Last Admin Trade Name Freq PRN Reason Stop Dose Admin Pantoprazole Sodium 80 mg 06/17/24 14:50 06/17/24 15:18 Pantoprazole Sodium 40 Mg Inj IVP 06/17/24 14:51 80 mg ONCE ONE Administration Medical Decision Making MDM Narrative Medical decision making narrative: 83-year-old female with GI bleed, syncope and end-stage renal disease. Patient will be transferred for further management. Lab Data Lab results reviewed: Yes I reviewed the patient's lab results Labs: Lab Results 06/17/24 06/17/24 06/17/24 Range/Units 12:01 14:15 17:06 WBC 7.38 (4.50-11.00) K/uL RBC 3.30 L (4.00-5.20) m/uL Hgb 9.2 L 9.1 L (12.0-16.0) gm/dL Hct 28.0 L (33.0-51.0) % MCV 85 (80-100) fL MCH 28 (26-34) pg MCHC 33 (32-36) gm/dL RDW Coeff of Erlinda 17.0 H (11.5-15.5) % Plt Count 246 (140-440) K/uL Neut % (Auto) 82.5 H (42.0-72.0) % Lymph % (Auto) 6.8 L (20-44) % Gregory % (Auto) 8.0 (0.0-11.0) % Eos % (Auto) 1.1 (0.0-7.0) % Baso % (Auto) 1.5 (0.0-3.0) % Neut # (Auto) 6.10 (1.7-7.0) K/uL Lymph # (Auto) 0.50 L (0.90-2.90) K/uL Gregory # (Auto) 0.60 (0.00-0.90) K/UL Eos # (Auto) 0.08 (0.00-0.50) K/uL Baso # (Auto) 0.11 (0.00-0.30) K/uL Abs Immat Gran (auto) 0.01 (0.00-0.30) K/uL Imm/Tot Granulo (auto) 0.1 % Sodium 137 (135-149) mmol/L Potassium 4.5 (3.6-5.1) mmol/L Chloride 100 (96-114) mmol/L Carbon Dioxide 23 (20-32) mmol/L Anion Gap 14 (7-15) mEq/L BUN 49 H (7-30) mg/dL Creatinine 8.3 H (0.5-1.5) mg/dL Estimated Creat Clear 4.38 Estimated GFR 4 ml/min Glucose 54 L (60-115) mg/dL Lactate 1.9 (0.5-1.9) mmol/L Calcium 9.6 (8.4-10.6) mg/dL Magnesium 2.2 (1.5-2.6) mg/dL Total Bilirubin 0.9 (0.1-1.5) mg/dL Direct Bilirubin 0.5 (0.0-0.5) mg/dL AST 22 (12-35) U/L ALT 9 (4-35) U/L Alkaline Phosphatase 60 (40-150) U/L Troponin I < 0.01 L (0.01-0.04) ng/mL C-Reactive Protein 3.6 H (0.5-1.0) mg/dL NT-Pro-B Natriuret Pep > 15273 pg/mL Total Protein 6.4 (6.0-8.3) g/dL Albumin 4.0 (3.3-5.0) g/dL TSH 1.230 (0.270-4.20) uIU/mL Stool Occult Blood Positive A (Negative) POC Troponin I 0.04 (0.01-0.04) ng/ml ECG Data Attestation: I personally reviewed and interpreted this ECG as follows: Discharge Plan Discharge Clinical Impression: GI bleed, End stage renal failure on dialysis, Episode of syncope Patient Disposition: Xfer Other Discharge Location: [facility] Condition: Stable Prescriptions: No Action calcium acetate 667 mg tablet 667 mg PO TID RenaPlex-D 800 mcg-12.5 mg -2,000 unit tablet 1 tab PO QPM ferrous gluconate 324 mg (37.5 mg iron) tablet 648 mg PO QDAY Qty: 180 3RF pantoprazole 40 mg tablet,delayed release (DR/EC) 40 mg PO BID Qty: 180 3RF furosemide 80 mg tablet 80 mg PO DAILY Qty: 90 3RF lisinopril 20 mg tablet 40 mg PO DAILY Qty: 180 3RF metoprolol succinate 50 mg tablet extended release 24 hr 50 mg PO QDAY Stand Alone Forms: MyHealth Info Instructions
[2024-06-17 12:32] LABS: Basophils Absolute Auto 0.11 K/uL (0.00-0.30); Basophils Percent Auto 1.5 % (0.0-3.0); Eosinophils Absolute Auto 0.08 K/uL (0.00-0.50); Eosinophils Percent Auto 1.1 % (0.0-7.0); Hemoglobin* 9.2 gm/dL (12.0-16.0); Immature Granulocytes Abs Auto 0.01 K/uL (0.00-0.30); Immature Granulocytes Pct Auto 0.1 %; Lymphocytes Percent Auto 6.8 % (20-44); Mean Corpuscular HGB Conc 33 gm/dL (32-36); Mean Corpuscular Hemoglobin 28 pg (26-34); Mean Corpuscular Volume 85 fL (80-100); Neutrophils Percent Auto 82.5 % (42.0-72.0); Platelet Count* 246 K/uL (140-440); White Blood Count* 7.38 K/uL (4.50-11.00)
[2024-06-17 12:33] LABS: Slide Review Reflex No
[2024-06-17 12:48] LABS: Chloride* 100 mmol/L (96-114)
[2024-06-17 12:49] LABS: Potassium* 4.5 mmol/L (3.6-5.1); Sodium* 137 mmol/L (135-149)
[2024-06-17 12:51] LABS: Creatinine* 8.3 mg/dL (0.5-1.5); Est. Creatinine Clearance* 4.38; Estimated Glomerular Filt Rate 4 ml/min
[2024-06-17 12:52] LABS: Alanine Aminotransferase* 9 U/L (4-35); Alkaline Phosphatase* 60 U/L (40-150); Anion Gap 14 mEq/L (7-15); Aspartate Amino Transferase* 22 U/L (12-35); Bilirubin Direct* 0.5 mg/dL (0.0-0.5); Bilirubin Total* 0.9 mg/dL (0.1-1.5); Blood Urea Nitrogen* 49 mg/dL (7-30); Calcium* 9.6 mg/dL (8.4-10.6); Carbon Dioxide* 23 mmol/L (20-32); Glucose* 54 mg/dL (60-115); Magnesium* 2.2 mg/dL (1.5-2.6); Total Protein* 6.4 g/dL (6.0-8.3)
[2024-06-17 12:54] LABS: C Reactive Protein* 3.6 mg/dL (0.5-1.0)
[2024-06-17 13:14] LABS: Troponin I* < 0.01 ng/mL (0.01-0.04)
[2024-06-17 13:18] LABS: NT Pro B Type NatriureticPept* > 30000 pg/mL
[2024-06-17 13:40] LABS: Troponin, Point-of-Care* 0.04 ng/ml (0.01-0.04)
[2024-06-17 14:40] LABS: Fecal Occult Blood* Positive (Negative)
[2024-06-17] MEDS: PANTOPRAZOLE SODIUM 40 MG INJ 80 MG IVP (15:18)
[2024-06-17 17:12] LABS: Hemoglobin* 9.1 gm/dL (12.0-16.0)
== END 2024-06-17 20:35 | disposition other institution (70) ==
PROVIDERS: Emergency Provider Family Medicine; PCP Family Medicine
DX: K92.2 Gastrointestinal hemorrhage, unspecified (principal); N18.6 End stage renal disease; R55 Syncope and collapse; R41.0 Disorientation, unspecified; Z99.2 Dependence on renal dialysis
CPT/HCPCS: 36415; 80048; 80076; 81001; 82270; 82962; 83605; 83735; 83880; 84443; 84484; 85018; 85025; 86140; 87086; 93005; 94761; 96374; 99284; 99285; J2470

== ENCOUNTER 2024-06-17 20:27 | Outpatient (CLI) | payer MEDICARE, SELFPAY | END 2024-06-17 20:28 | disposition home or self-care (01) | LOC: AMB 06-19 10:52 | PROVIDERS: PCP Family Medicine; Visit Provider Family Medicine | DX: K92.2 Gastrointestinal hemorrhage, unspecified (principal); N18.6 End stage renal disease | CPT/HCPCS: A0425; A0427 ==

== ENCOUNTER 2024-07-31 14:37 | Outpatient (CLI) | payer MEDICARE, SELFPAY | END 2024-07-31 14:38 | disposition home or self-care (01) | LOC: MRI 14:41 | PROVIDERS: PCP Family Medicine; Visit Provider Family Medicine | DX: M54.50 Low back pain, unspecified (principal); M47.896 Other spondylosis, lumbar region; M51.26 Other intervertebral disc displacement, lumbar region; R29.818 Other symptoms and signs involving the nervous system | CPT/HCPCS: 72148 ==

== ENCOUNTER 2024-09-11 06:40 | Outpatient (CLI) | payer MEDICARE, SELFPAY | END 2024-09-11 06:41 | disposition home or self-care (01) | LOC: AMB 11:24 | PROVIDERS: PCP Family Medicine; Visit Provider Family Medicine | DX: R10.9 Unspecified abdominal pain (principal); K92.1 Melena | CPT/HCPCS: A0425; A0433 ==